=== PATIENT | female | born 1945 | race Caucasian/White ===

== ENCOUNTER → 2016-11-09 | Outpatient (CLI) | payer MEDICARE ==
[~2016-11-09] VITALS: Ht 157.5 cm; Wt 68.0 kg
[~2016-11-09] MED LIST: ACET325T38 PO; ACHD5005 PO; AMIT25TA9 PO; AMLO10TA PO; AMLO10TA4 PO; AMLO5TAB2 PO; AMT25T PO; ASP81TEC PO; ATEN50TA PO; ATOR10TA66 PO; ATOR40TA PO; AZIT-21 PO; BETH25TA PO; BSC10SU PR; CALC-719 PO; CALCIUM CARBONATE PO; CATHETER FLUSH 10 ML SYR IV PRN; CHOL20002 PO; CINN500C2 PO; CINNAMON BARK PO; CLOP75TA PO; CYAN500T2 PO; DCS100C PO; DIPH25TA82 PO; DOCU-161 PO; DOXY100C42 PO; DULO30CA PO; DULO60CA6 PO; ENOX30DI9 SQ; ENXP30I.3 SC; FAMO20TA5 PO; FAMO20TA73 PO; FLC100T1 PO; FOLI1TAB24 PO; FURO40TA PO; Fentanyl Citrate IV; HCT25T PO; HYDR1TAB86 PO; INSASP10V SC; INSASP10V SQ; INSU100I16 SQ; INSU100I5; INSU100V5 SQ; Insulin Human Lispro SC; LACT20SO2 PO; LEVE1U SQ; LISI20TA PO; MAG355OR17 PO; MECL-106 PO; MELA1TAB11 PO; METO10TA3 PO; METO5TAB2 PO; MG T1TAB2 PO; MORP10CA8 PO; MORP15TA PO; MTC5T PO; MTF500T PO; MULT1TAB69 PO; NFMET1000 PO; OMEG1CAP PO; OMEP-10 PO; ONDA-42 PO; ONDA-43 PO; ONDA2VIA IV; ONDN4T PO; OXYC-188 PO; OXYC5TAB71 PO; PNT40TEC PO; POLY17PO PO; POLY17PO23 PO; Polyethylene Glycol PO; REGADENOSON 0.4 MG/5 ML SYR (LEXISCAN) IV ONE; SENN1TAB6 PO; SENN1TAB76 PO; STOOL SOFTNER; SULF-222 PO; SULF1TAB38 PO; ZLP5T PO; [UNRECOGNIZED DRUG - CODE] IV; lovaza; lyrica
--- OUTSIDE RECORDS SUMMARY | 2016-11-09 07:23 | XMS REPORT | Continuity of Care Document ---
Author Author [facility] Organization [facility] Address Unknown Phone Unavailable Care Team Providers Care Smt Technician Name Role Phone Mauricio Messina PCP [phone] Source Comments Some departments are not documenting in the electronic medical record. If you do not see the information that you expected, contact Release of Information in the Health Information Management department at [phone] for further assistance in locating additional records.[facility] Active Allergies and Adverse Reactions Allergen Noted [...] Active (PROTONIX) 40 mg tablet daily. 15 hfpueaxa-cdr-nksa-FA-lute Take 2 Tabs by mouth Active in [...] other concerns. Contact office with questions at [phone] NWB. Tubigrip. Night splint at rest. OK for ROM to right knee. Full body PT as tolerated. Continue dressing changes to right heel wound as previously ordered Fu in 4 wks for xrays with Heddings Fall 04/24/2016 Syncope, near 04/24/2016 Closed fracture of ischium ([facility]) 04/24/2016 NATALIE (acute kidney injury) ([facility]) 04/24/2016 Urinary tract infection with hematuria 04/24/2016 Hyperkalemia 04/24/2016 Altered mental status, unspecified 04/24/2016 Failed shoulder arthroplasty s/p surgery elsewhere 07/22/2015 Hyperglycemia 11/27/2014 Right foot pain 09/14/2014 DM (diabetes mellitus) ([facility]) 09/14/2014 HTN (hypertension) 09/14/2014 HLD (hyperlipidemia) 09/14/2014 Wound, surgical, infected 06/29/2014 Postoperative anemia due to acute blood loss 06/02/2014 NATALIE (acute kidney injury) ([facility]) 06/02/2014 Urinary retention with incomplete bladder emptying 06/02/2014 Constipation 06/02/2014 Ankle fracture, right 05/28/2014 Infected hardware in right leg ([facility]) 05/28/2014 Open wound of ankle with complication 05/28/2014 Wound infection after surgery 05/28/2014 Peripheral vascular disease ([facility]) Immunizations Name Dates Previously Given Next Due [...] 06/25/2016 07/17/2014 Results from Last 3 Months Not on file
[2016-11-09 09:05] VITALS: BP 96/78
[2016-11-09 09:06] VITALS: BP 129/68
--- NOTE | 2016-11-10 08:52 | STRESS TEST ---
PROCEDURE PHYSICIAN: URMILA SUTHERLAND DATE OF PROCEDURE: 11/09/2016 LEXISCAN MYOVIEW STRESS TEST REPORT: REFERRING PHYSICIAN: Dr. Messina BASELINE HEART RATE: 54 BASELINE BLOOD PRESSURE: 114/66. BASELINE EKG: Sinus rhythm with no ischemic changes. IN SUMMARY: The patient was injected with 10.53 mCi of technetium 99 Myoview and the resting images were obtained. Then the patient received 0.4 mg of Lexiscan followed by 29.3 mCi of technetium 99 Myoview. Throughout the test, there were no EKG changes. The resting and stress images were reviewed and compared in the short axis, horizontal long axis, and vertical long axis views. Review of the images showed breast attenuation with mild apical thinning. No significant ischemia was noted. There was a transient ischemic dilatation. TID value of 1.33. SSS is 0. On the gated images the left ventricle appeared to be normal size with normal contractility. Calculated ejection fraction 62%. IN CONCLUSION: 1. The patient tolerated Lexiscan well. 2. Transient ischemic dilatation with TID value 1.33. 3. Mild apical thinning with no significant ischemia on SPECT images. 4. Normal left ventricular size with normal contractility. Calculated ejection fraction 62%. Job ID: [id number] Dictated Date: 11/10/2016 08:04:56 Gamer Date: 11/10/2016 08:49:59 / judson
== END ==
LOC: CARD 07:19
PROVIDERS: ATTEND Internal Medicine Cardiovascular Disease
DX: I11.0 Hypertensive heart disease with heart failure (principal); R07.9 Chest pain, unspecified; I51.7 Cardiomegaly; E78.5 Hyperlipidemia, unspecified
CPT/HCPCS: 78452; 93017

== ENCOUNTER 2016-11-10 13:01 | Outpatient (RCR) | payer MEDICARE, OTHER ==
--- OUTSIDE RECORDS SUMMARY | 2016-08-18 14:25 | XMS REPORT | Continuity of Care Document ---
Author Author [facility] Organization [facility] Address Unknown Phone Unavailable Care Team Providers Care Cellophane Wrapping Examiner Name Role Phone Mauricio Messina PCP [phone] Source Comments Some departments are not documenting in the electronic medical record. If you do not see the information that you expected, contact Release of Information in the Health Information Management department at [phone] for further assistance in locating additional records.[facility] Active Allergies and Adverse Reactions Allergen Noted Date Severity Reactions Comments Bactrim 07/07/2016 Low UNKNOWN Neurontin 05/28/2014 SEE COMMENTS disorientation and swollen tongue Plavix 04/24/2016 Low DIZZINESS Current Medications Prescription Sig. Disp. Refills Start End Date Status Date ondansetron (ZOFRAN ODT) Take 4 mg by mouth every Active 4 mg rapid dissolve 4 hours as needed. tablet calcium carbonate (TUMS) Take 500 mg by mouth Active 500 mg (200 mg elemental daily. calcium) chewable tablet cyanocobalamin(+) Take 2 Tabs by mouth 06/06/20 Active (VITAMIN B-12) 500 mcg daily. 14 tablet amLODIPine (NORVASC) 10 Take 10 mg by mouth at Active mg tablet bedtime daily. furosemide (LASIX) 40 mg Take 40 mg by mouth daily Active tablet as needed. For weight gain >3lbs in 24 hours. alum/mag hydroxide/simeth Take 30 mL by mouth every Active (MYLANTA, MAALOX PLUS) 4 hours as needed. 200/200/20 mg/5 mL susp oral suspension pantoprazole DR Take 1 Tab by mouth 90 Tab 3 12/04/19 Active (PROTONIX) 40 mg tablet daily. 15 ireaxkvt-ini-teho-FA-lute Take 2 Tabs by mouth Active in (CENTRUM SILVER WOMEN) daily. 8 mg iron-400 mcg-300 mcg tab acetaminophen (TYLENOL) Take 2 Tabs by mouth 30 Tab 1 05/08/20 Active 325 mg tablet every 6 hours as needed 16 for Pain. insulin aspart (NOVOLOG) Inject 0-7 Units into 15 mL 0 05/08/20 Active 100 unit/mL flexPEN area(s) as directed 16 before meals and at bedtime. atenolol (TENORMIN) 50 mg Take 50 mg by mouth Active tablet daily. docusate (COLACE) 100 mg Take 100 mg by mouth Active capsule twice daily. oxyCODONE/acetaminophen Take 1 Tab by mouth every Active (PERCOCET; ENDOCET; 4 hours as needed for ROXICET) 5/325 mg tablet Pain zolpidem (AMBIEN) 10 mg Take 5 mg by mouth at Active tablet bedtime as needed for Sleep. insulin detemir(+) Inject 10 Units into Active (LEVEMIR) 100 unit/mL area(s) as directed. at soln bedtime AMITRIPTYLINE HCL Take by mouth. Active (AMITRIPTYLINE PO) Active Problems Problem Noted Date Closed fracture of shaft of right tibia with routine healing 05/26/2016 Acute pain due to trauma 04/30/2016 Hypokalemia 04/30/2016 Hypomagnesemia 04/30/2016 Myoglobinuria 04/25/2016 Fracture tibia/fibula 04/24/2016 Overview: Right IMN 04/29/16 L ast Assessment & Plan: Sutures removed. Steri-strips placed. Allow to fall off naturally. OK to shower. Do not submerge wound in water x 2 more weeks. Monitor wound for redness, drainage or other concerns. Contact office with questions at [phone] NWB. Tubigrip. Night splint at rest. OK for ROM to right knee. Full body PT as tolerated. Continue dressing changes to right heel wound as previously ordered Fu in 4 wks for xrays with Heddings Fall 04/24/2016 Syncope, near 04/24/2016 Closed fracture of ischium ([facility]) 04/24/2016 NATALIE (acute kidney injury) ([facility]) 04/24/2016 Urinary tract infection with hematuria 04/24/2016 Hyperkalemia 04/24/2016 Altered mental status, unspecified 04/24/2016 Failed shoulder arthroplasty s/p surgery elsewhere 07/22/2015 Hyperglycemia 11/27/2014 Right foot pain 09/14/2014 DM (diabetes mellitus) ([facility]) 09/14/2014 HTN (hypertension) 09/14/2014 HLD (hyperlipidemia) 09/14/2014 Wound, surgical, infected 06/29/2014 Postoperative anemia due to acute blood loss 06/02/2014 NATALIE (acute kidney injury) ([facility]) 06/02/2014 Urinary retention with incomplete bladder emptying 06/02/2014 Constipation 06/02/2014 Ankle fracture, right 05/28/2014 Infected hardware in right leg ([facility]) 05/28/2014 Open wound of ankle with complication 05/28/2014 Wound infection after surgery 05/28/2014 Peripheral vascular disease ([facility]) Most Recent Encounters Date Type Specialty Providers Description 07/07/2016 Office Visit Orthopedic Surgery Daniele Sarmiento MD Fracture tibia/fibula, right, closed, with routine healing, subsequent encounter (Primary Dx) 07/07/2016 [facility] Radiology Daniele Sarmiento MD Encounter 07/06/2016 Orders Only Orthopedic Surgery Daniele Sarmiento MD Closed fracture of shaft of right tibia with routine healing, unspecified fracture morphology, subsequent encounter (Primary Dx) 06/25/2016 Scan Only General Surgery Lesa Sparrow MD 05/26/2016 [facility] Daniele Sarmiento MD Abnormal microbiological Encounter findings in specimens from other organs, systems and tissues 05/26/2016 Office Visit Orthopedic Surgery Daniele Sarmiento MD Closed displaced spiral fracture of shaft of right tibia with routine healing, subsequent encounter (Primary Dx); Positive culture finding 05/26/2016 [facility] Radiology Daniele Sarmiento MD Encounter 05/25/2016 Orders Only Orthopedic Surgery Daniele Sarmiento MD Closed fracture of shaft of right tibia with routine healing, unspecified fracture morphology, subsequent encounter (Primary Dx) Immunizations Name Dates Previously Given Next Due Flu Vaccine 07/17/2014 Quadrivalent=>3 Yo (Preservative Free) Social History Tobacco Use Types Packs/Day Years Used Date Former Smoker Smokeless Tobacco: Never Used Tobacco Cessation: Counseling Given: Yes Comments: Alcohol Use Drinks/Week oz/Week Comments No 0 Standard 0.0 drinks or equivalent Last Filed Vital Signs Vital Sign Reading Time Taken Blood Pressure 157/76 07/07/2016 12:46 PM CDT Pulse 77 07/07/2016 12:46 PM CDT Temperature 36.8 C (98.2 F) 07/07/2016 12:46 PM CDT Respiratory Rate 16 01/03/2015 2:35 PM CDT Height 1.575 m (5' 2") 07/07/2016 12:46 PM CDT Weight 74.844 kg (165 lb) 07/07/2016 12:46 PM CDT Body Mass Index 30.17 07/07/2016 12:46 PM CDT Oxygen Saturation 94% 05/08/2016 2:20 PM CDT Plan of Care Health Maintenance Due Date Last Done Comments Hepatitis C Screening 1945 Physical (Comprehensive) 1953 Exam Pertussis Vaccine 1957 Tetanus Vaccine 1963 Breast Cancer Screening 1986 Colorectal Cancer 02/09/1996 Screening Shingles Vaccine 2006 Osteoporosis Screening 2011 Prevnar/Pneumovax (#1) 2011 Influenza Vaccine 06/25/2016 07/17/2014 Results from Last 3 Months TIBIA & FIBULA 2 VIEWS RIGHT (07/07/2016 1:19 PM)Only the most recent of 2 results within the time period is included. Impressions 1.Mild partial progressive incomplete healing of nondisplaced transverse fracture of the proximal tibia. 2.Partial progressive healing of midshaft oblique tibial fracture. 3.Progressive good healing of the junction proximal one third fibula fracture. 4.Ankle fusion changes. Finalized by Duarte Villalta M.D. on 07/07/2016 1:50 PM. Dictated by Duarte Villalta M.D. on 07/07/2016 1:45 PM. Narrative Right tibia-fibula 2 views. History: Closed fracture of right tibia. Compared May 26, 2016 and correlating with August 16, 2014. Interval partial incomplete healing of a transverse high tibial proximal metadiaphyseal fracture. Alignment is maintained with intact antegrade IM nail fixation and interlocking screw fixation. Interval partial progressive healing of midshaft of the tibial oblique fracture with alignment similar to prior study. The majority the calcaneus has been resected. Talar head and neck have been resected. Healed junction proximal one third fibula fracture. Resected distal third of the fibula. Apparent osseous fusion of the ankle joint. Procedure Note Interface, Radiant Results - Tue Jul 07, 2016 1:53 PM CDT Right tibia-fibula 2 views. History: Closed fracture of right tibia. Compared May 26, 2016 and correlating with August 16, 2014. Interval partial incomplete healing of a transverse high tibial proximal metadiaphyseal fracture. Alignment is maintained with intact antegrade IM nail fixation and interlocking screw fixation. Interval partial progressive healing of midshaft of the tibial oblique fracture with alignment similar to prior study. The majority the calcaneus has been resected. Talar head and neck have been resected. Healed junction proximal one third fibula fracture. Resected distal third of the fibula. Apparent osseous fusion of the ankle joint. IMPRESSION 1. Mild partial progressive incomplete healing of nondisplaced transverse fracture of the proximal tibia. 2. Partial progressive healing of midshaft oblique tibial fracture. 3. Progressive good healing of the junction proximal one third fibula fracture. 4. Ankle fusion changes. Finalized by Duarte Villalta M.D. on 07/07/2016 1:50 PM. Dictated by Duarte Villalta M.D. on 07/07/2016 1:45 PM. C REACTIVE PROTEIN (CRP) (05/26/2016 4:35 PM) Component Value Range C-Reactive Protein 0.49 <1.0 MG/DL Specimen Blood SED RATE (05/26/2016 4:35 PM) Component Value Range Sed Rate -ESR 60 (H) 0-30 MM/HR Specimen Blood CBC AND DIFF (05/26/2016 4:35 PM) Component Value Range White Blood Cells 9.5 4.5-11.0 K/UL RBC 3.29 (L) 4.0-5.0 M/UL Hemoglobin 9.0 (L) 12.0-15.0 GM/DL Hematocrit 27.5 (L) 36-45 % MCV 83.6 80-100 FL MCH 27.4 26-34 PG MCHC 32.8 32.0-36.0 G/DL RDW 19.3 (H) 11-15 % Platelet Count 251 150-400 K/UL MPV 7.6 7-11 FL Neutrophils 68 41-77 % Lymphocytes 20 (L) 24-44 % Monocytes 8 4-12 % Eosinophils 4 0-5 % Basophils 0 0-2 % Absolute Neutrophil Count 6.50 1.8-7.0 K/UL Absolute Lymph Count 1.90 1.0-4.8 K/UL Absolute Monocyte Count 0.70 0-0.80 K/UL Absolute Eosinophil Count 0.40 0-0.45 K/UL Absolute Basophil Count 0.00 0-0.20 K/UL Specimen Blood
[~2016-11-10 13:01] MED LIST changes: -ATOR10TA66 PO; -CATHETER FLUSH 10 ML SYR IV PRN; -CINN500C2 PO; -DOXY100C42 PO; -MULT1TAB69 PO; -REGADENOSON 0.4 MG/5 ML SYR (LEXISCAN) IV ONE; -SENN1TAB6 PO; +cloNIDine 0.1 MG (CATAPRES) TAB PO ONE
[2016-11-11] MEDS ORDERED: AMIT25TA9 PO ×2 (11:53)
[2016-11-11] MEDS ORDERED: CINN500C2 PO ×2 (11:53)
[2016-11-11] MEDS ORDERED: DOXY100C42 PO ×2 (11:53)
[2016-11-11] MEDS ORDERED: ATEN50TA PO ×2 (11:53)
[2016-11-11] MEDS ORDERED: SENN1TAB6 PO ×2 (11:57)
[2016-11-11] MEDS ORDERED: MULT1TAB69 PO ×2 (11:58)
[2016-11-15] MEDS ORDERED: ATOR10TA66 PO ×2 (10:08)
== END 2016-11-16 | disposition home or self-care (01) ==
LOC: WOUNDCARE 13:01
PROVIDERS: ATTEND Nurse Practitioner
DX: E11.621 Type 2 diabetes mellitus with foot ulcer (principal); L97.412 Non-pressure chronic ulcer of right heel and midfoot with fat layer exposed
CPT/HCPCS: 11042; 15275; 87070; 87075; 87077; 87186; 87205

== ENCOUNTER 2016-11-11 09:48 | Day surgery (SDC) | payer MEDICARE ==
[~2016-11-11] VITALS: Ht 157.5 cm; Wt 83.0 kg
[~2016-11-11 09:48] MED LIST changes: -cloNIDine 0.1 MG (CATAPRES) TAB PO ONE
--- OUTSIDE RECORDS SUMMARY | 2016-11-11 10:28 | XMS REPORT | Continuity of Care Document ---
Author Author [facility] Organization [facility] Address Unknown Phone Unavailable Care Team Providers Care Oracle Application Architect Name Role Phone Mauricio Messina PCP [phone] Source Comments Some departments are not documenting in the electronic medical record. If you do not see the information that you expected, contact Release of Information in the Health Information Management department at [phone] for further assistance in locating additional records.[facility] Active Allergies and Adverse Reactions Allergen Noted [...] Active (PROTONIX) 40 mg tablet daily. 15 cnnnesqy-sqp-tlrt-FA-lute Take 2 Tabs by mouth Active in [...] other concerns. Contact office with questions at [phone] NWB. Tubigrip. Night splint at rest. OK for ROM to right knee. Full body PT as tolerated. Continue dressing changes to right heel wound as previously ordered Fu in 4 wks for xrays with Heddings Fall 04/24/2016 Syncope, near 04/24/2016 Closed fracture of ischium ([facility]) 04/24/2016 NATALIE (acute kidney injury) ([facility]) 04/24/2016 Urinary tract infection with hematuria 04/24/2016 Hyperkalemia 04/24/2016 Altered mental status, unspecified 04/24/2016 Failed shoulder arthroplasty s/p surgery elsewhere 07/22/2015 Hyperglycemia 11/27/2014 Right foot pain 09/14/2014 DM (diabetes mellitus) ([facility]) 09/14/2014 HTN (hypertension) 09/14/2014 HLD (hyperlipidemia) 09/14/2014 Wound, surgical, infected 06/29/2014 Postoperative anemia due to acute blood loss 06/02/2014 NATALIE (acute kidney injury) ([facility]) 06/02/2014 Urinary retention with incomplete bladder emptying 06/02/2014 Constipation 06/02/2014 Ankle fracture, right 05/28/2014 Infected hardware in right leg ([facility]) 05/28/2014 Open wound of ankle with complication 05/28/2014 Wound infection after surgery 05/28/2014 Peripheral vascular disease ([facility]) Immunizations Name Dates Previously Given Next Due [...]
--- OUTSIDE RECORDS SUMMARY | 2016-11-11 10:28 | XMS REPORT | Continuity of Care Document ---
Author Author [facility] Organization [facility] Address Unknown Phone Unavailable Care Team Providers Care Staff Pharmacist Hospital Name Role Phone Mauricio Messina PCP [phone] Source Comments Some departments are not documenting in the electronic medical record. If you do not see the information that you expected, contact Release of Information in the Health Information Management department at [phone] for further assistance in locating additional records.[facility] Active Allergies and Adverse Reactions [...] Active (PROTONIX) 40 mg tablet daily. 15 mmezsdkv-wez-dqki-FA-lute Take 2 Tabs by mouth Active in [...] other concerns. Contact office with questions at [phone] NWB. Tubigrip. Night splint at rest. OK for ROM to right knee. Full body PT as tolerated. Continue dressing changes to right heel wound as previously ordered Fu in 4 wks for xrays with Heddings Fall 04/24/2016 Syncope, near 04/24/2016 Closed fracture of ischium ([facility]) 04/24/2016 NATALIE (acute kidney injury) ([facility]) 04/24/2016 Urinary tract infection with hematuria 04/24/2016 Hyperkalemia 04/24/2016 Altered mental status, unspecified 04/24/2016 Failed shoulder arthroplasty s/p surgery elsewhere 07/22/2015 Hyperglycemia 11/27/2014 Right foot pain 09/14/2014 DM (diabetes mellitus) ([facility]) 09/14/2014 HTN (hypertension) 09/14/2014 HLD (hyperlipidemia) 09/14/2014 Wound, surgical, infected 06/29/2014 Postoperative anemia due to acute blood loss 06/02/2014 NATALIE (acute kidney injury) ([facility]) 06/02/2014 Urinary retention with incomplete bladder emptying 06/02/2014 Constipation 06/02/2014 Ankle fracture, right 05/28/2014 Infected hardware in right leg ([facility]) 05/28/2014 Open wound of ankle with complication 05/28/2014 Wound infection after surgery 05/28/2014 Peripheral vascular disease ([facility]) Immunizations Name Dates Previously Given Next Due [...]
[2016-11-11] MEDS ORDERED: LIDOCAINE 1% INJ 20 ML (XYLOCAINE) VIAL ONE (10:36)
[2016-11-11] MEDS ORDERED: HEParin (CATH LAB) 0 ML IV ONE (10:36)
[2016-11-11] MEDS ORDERED: NS IV 1000 ML 1,000 ML ONE (10:36)
[2016-11-11] MEDS ORDERED: NS IV 1000 ML 1,000 ML IV SCH ×2 (11:00→11:28)
[2016-11-11 11:31] VITALS: BP 184/71
[2016-11-11 11:36] LABS: MEAN PLATELET VOLUME 10.1 FL (7.4-10.4); RED BLOOD COUNT 3.58 10^6/uL (4.35-5.85); RED CELL DISTRIBUTION WIDTH 17.3 % (10.0-14.5); WHITE BLOOD COUNT 8.3 10^3/uL (4.3-11.0)
[2016-11-11 11:46] LABS: INR 1.1 (0.8-1.4); PROTHROMBIN TIME PATIENT 13.4 SEC (12.2-14.7)
--- NOTE | 2016-11-11 11:51 | Diagnostic Imaging Report ---
EXAMINATION: Portable upright radiograph of the chest. INDICATION: Coronary artery disease and peripheral angiography. FINDINGS: The lungs demonstrate minimal bibasilar atelectasis. The heart size is mildly enlarged. No effusion or pneumothorax. Mediastinum and russ appear unremarkable. Left shoulder replacement is seen. IMPRESSION: Cardiomegaly. Minimal bibasilar atelectasis. Dictated by: Dictated on workstation # [id number]
[2016-11-11] MEDS ORDERED: CINN500C2 PO ×2 (11:53)
[2016-11-11] MEDS ORDERED: ATEN50TA PO ×2 (11:53)
[2016-11-11] MEDS ORDERED: AMIT25TA9 PO ×2 (11:53)
[2016-11-11] MEDS ORDERED: DOXY100C42 PO ×2 (11:53)
[2016-11-11 11:57] LABS: ALBUMIN 2.7 G/DL (3.2-4.5); BILIRUBIN,TOTAL 0.3 MG/DL (0.1-1.0); CALCIUM 8.7 MG/DL (8.5-10.1); CREATININE SERUM 2.9 MG/DL (0.60-1.30); POTASSIUM 4.9 MMOL/L (3.6-5.0); TOTAL PROTEIN 5.7 G/DL (6.4-8.2)
[2016-11-11] MEDS ORDERED: SENN1TAB6 PO ×2 (11:57)
[2016-11-11] MEDS ORDERED: MULT1TAB69 PO ×2 (11:58)
[2016-11-11] MEDS ORDERED: PATIENT MAY USE OWN MEDS, ALL MC SCH (12:30)
[2016-11-11 13:00] VITALS: BP 174/74
[2016-11-11] MEDS: NS IV 1000 ML 1,000 ML IV SCH (13:00)
[2016-11-11] MEDS ORDERED: CATHETER FLUSH 10 ML SYR IV PRN (14:30)
[2016-11-11] MEDS ORDERED: ENOXAPARIN 40 MG/0.4 ML (LOVENOX) SYR SQ SCH (15:45)
--- NOTE | 2016-11-11 15:45 | Cardiology History & Physical ---
HPI-Cardiology Cardiology Consultation Date of Consultation 11/11/16 Date of Admission Indication: coronary artery disease, peripheral arterial disease HPI 71 years old lady with history of peripheral arterial disease (coronary healing wound, had an abnormal VELIA and she was scheduled for peripheral angiogram. Underwent a stress test which showed transient ischemic dilatation. Has been complaining of palpitation, denied any syncope or near syncopal episodes. Denied any claudication. Today she was noted to have elevated creatinine level , low GFR. I decided to postpone the procedure, patient was admitted and she will start on aggressive hydration with close monitoring to her renal function. She denied any active chest pain at this point. Denied any palpitation, noted to have hyperlipidemia, she will be initiated on statin PMH-Cardiology Immunizations Up To Date Tetanus Booster (DTap): Unknown Date of Pneumonia Vaccine: Jun 25, 2014 Date of Influenza Vaccine: Jul 25, 2016 Surgeries HX Surgeries: Yes Surgeries: Abdominal, Gall Bladder, Hysterectomy, Section, Orthopedic Respiratory Hx Respiratory Disorders: Yes Cardiovascular Hx Cardiovascular Disorders: Yes (NEAR SYNCOPAL EPISODES) Cardiac Disorders: Heart Murmur, Hypertension Neurological Hx Neurological Disorders: Yes (NEUROPATHY IN HANDS, FEET AND LEGS; STROKE WITH RIGHT ARM WEAKNESS) Neurological Disorders: Neuropathy, Stroke 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 System Hx 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 Disorders: Yes (2 MISCARRIAGES) Sexually Transmitted Disease: No Female 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 Disorders: Ovarian Cyst HAM[employer]ER Hx: Hysterectomy Genitourinary Hx Genitourinary Disorders: No Genitourinary Disorders: Kidney Infection, Renal Failure Gastrointestinal Hx Gastrointestinal Disorders: Yes Gastrointestinal Disorders: Gastroesophageal Reflux Musculoskeletal Hx Musculoskeletal Disorders: Yes Musculoskeletal Disorders: Osteoporosis, Arthritis, Chronic Back Pain, Fractures Endocrine Hx Endocrine Disorders: Yes Endocrine Disorders: Diabetes, Insulin dep HEENT HX ENT Disorders: Yes (REMOVED CATARACTS; IMPLANTS) HEENT Disorders: Cataract, Double Vision Hearing Impairment: Denies Cancer Hx Cancer: Yes Cancer: Melanoma Psychosocial Hx Psychiatric Problems: Yes Behavioral Health Disorders: Anxiety, Depression Integumentary HX Skin/Integumentary Disorder: Yes (CHRONIC WOUND RIGHT FOOT/ANKLE) Blood Transfusions Hx Blood Disorders: No Adverse Reaction to a Blood Tr: No Other PMHx Other PMHx: past medical history as discussed below Social History Patient Social History Marrital Status: Dip or chew tobacco?: No Recent Foreign Travel: No Contact w/other who traveled: No Recent Infectious Disease Expo: No Family Hx Family History: Cancer G8 SISTER (breast cancer) Cataract 19 MOTHER Dementia 19 MOTHER Family history: Breast disease G8 SISTER (breast cancer) Family history: Diabetes mellitus 19 FATHER G8 SISTER Heart disease 19 MOTHER Parkinson's disease 19 MOTHER ROS-Cardiology Review of Systems General: No Chills, No Night Sweats, No Fatigue, No Malaise, No Appetite HEENT: No Head Aches, No Visual Changes, No Eye Pain, No Ear Pain, No Dysphasia , No Sinus Congestion, No Post Nasal Drip, No Sore Throat Pulmonary: DyspneaNo Cough, No Pleuritic Chest Pain Cardiovascular: : Chest Pain: Edema: Other (poor healing wound): PalpitationsNo : Lt Headedness, Orthopnea, Paroxysmal Noc. Dyspnea Gastrointestinal: No: Abdominal Pain, Constipation, Diarrhea, Hematochezia, Melena, Nausea, Vomiting Genitourinary: No Dysuria, No Frequency, No Incontinence, No Hematuria, No Retention Musculoskeletal: No: arm pain, back pain, foot pain, hand pain, leg pain, neck pain, shoulder pain Neurological: No: Change in speech, Confusion, Incoordination, Numbness, Seizures, Weakness Home Medications & Allergies Allergies: Coded Allergies: clopidogrel (Unverified Allergy, Unknown, BLEEDING, 04/24/16) gabapentin (Unverified Allergy, Unknown, 04/24/16) Home Medication List Reviewed: Yes Exam-Cardiology Vital Signs Vital Signs Date Time Temp Pulse Resp B/P Pulse Ox O2 Delivery O2 Flow Rate FiO2 11/11/16 13:00 98.2 53 18 174/74 97 Room Air Exam General Appearance: Alert, Oriented X3, Cooperative, No Acute Distress HEENT: Atraumatic, PERRLA Respiratory: Clear to Auscultation, Normal Air Movement Cardiovascular: Regular Rate, Normal S1, Normal S2, No Murmurs Abdominal: Normal Bowel Sounds, Soft, No Tenderness, No Hepatosplenomegaly, No Masses Extremities: No Clubbing, No Cyanosis, No Edema, Normal Pulses, No Tenderness/ Swelling Skin: No Rashes, No Breakdown, No Significant Lesion Neuro: Normal Gait, Normal Speech, Strength at 5/5 X4 Ext, Normal Tone, Sensation Intact Psych/Mental Status: Mental Status NL, Mood NL Results Labs Labs Laboratory Tests 11/11/16 11:21: Activated Partial Thromboplast Time 37H, Alanine Aminotransferase (ALT/SGPT) 11 , Albumin 2.7L, Alkaline Phosphatase 80, Anion Gap 10, Aspartate Amino Transf ( AST/SGOT) 13, BUN/Creatinine Ratio 19, Blood Urea Nitrogen 54H, Calcium Level 8.7, Carbon Dioxide Level 22, Chloride Level 108H, Cholesterol Level 206H, Creatinine 2.90H, Estimat Glomerular Filtration Rate 16, Glucose Level 97, HDL Cholesterol 45, Hematocrit 30L, Hemoglobin 9.7L, INR Comment 1.1, LDL Cholesterol Direct 134H, Mean Corpuscular Hemoglobin 27, Mean Corpuscular Hemoglobin Concent 32, Mean Corpuscular Volume 84, Mean Platelet Volume 10.1, Platelet Count 236, Potassium Level 4.9, Prothrombin Time 13.4, Red Blood Count 3.58L, Red Cell Distribution Width 17.3H, Sodium Level 140, Total Bilirubin 0.3 , Total Protein 5.7L, Triglycerides Level 115, VLDL Cholesterol 23, White Blood Count 8.3 A/P-Cardiology Admission Diagnosis Acute on chronic renal failure Coronary artery disease Peripheral arterial disease Hypertension Hyperlipidemia Assessment/Plan Acute on chronic renal failure, patient is followed by Dr. Brittney rome, today's creatinine level is 2.9, GFR is 16. She was scheduled for peripheral and coronary angiogram, I will admit her start aggressive hydration and monitor his renal function, I will try to do diagnostic procedure with limited contrast exposure then stage her for intervention if possible. Coronary artery disease, abnormal stress test, planning to proceed with cardiac catheterization possible PTCA Peripheral arterial disease, poor healing wound on the right leg, VELIA was done which showed monophasic waves bilaterally, planning to proceed with angiogram, has underlying renal insufficiency, elevated creatinine level, patient is admitted and will be hydrated then I will proceed with intervention after aggressive hydration Incidental finding enlarged lymph node on the right groin measuring 1.462.4 cm. Will need to have a CT of the abdomen and pelvis for evaluation without contrast. Recurrent palpitation, continue to monitor at this time. Bilateral carotid stenosis, mild disease, continue to monitor Multiple surgeries on the right foot after foot fracture then leg fracture, poor healing wound, planning to go for hyperbaric chamber. Diabetes mellitus, followed and managed by primary care physician Hypertension, controlled on current medication continue to monitor blood pressure Hyperlipidemia, I will start her on low-dose statin and monitor her tolerance and response URMILA SUTHERLAND MD Nov 11, 2016 15:45
[2016-11-11 16:00] VITALS: BP 160/70
[2016-11-11 16:23] VITALS: BP 160/70
[2016-11-11] MEDS: ENOXAPARIN 30 MG/0.3 ML (LOVENOX) SYR SC SCH (16:29)
[2016-11-11 20:25] VITALS: BP 183/80
[2016-11-11] MEDS ORDERED: ATORVASTATIN 10 MG (LIPITOR) TABLET PO SCH (21:00)
[2016-11-11] MEDS ORDERED: NON-FORMULARY MEDICATION 1 EA EA (Doxycycline Monohydrate 100 MG) PO SCH (21:00)
[2016-11-11] MEDS: inSUlin DETERMIR 1 UNIT/0.01 ML (LEVEMIR) CHARGE PER UNIT SQ SCH (21:34)
[2016-11-11] MEDS: SENNA W/DOCUSATE (SENOKOT S) TABLET PO SCH (21:35)
[2016-11-11] MEDS: ATORVASTATIN 10 MG (LIPITOR) TABLET PO SCH (21:35)
[2016-11-11] MEDS: AMITRIPTYLINE 25 MG (ELAVIL) TAB PO SCH (21:36)
[2016-11-11] MEDS: DOXYCYCLINE 100 MG (VIBRAMYCIN) TABLET PO SCH (21:38)
[2016-11-11] MEDS: amLODIPine 10 MG (NORVASC) TAB PO SCH (21:39)
[2016-11-12] VITALS (8 sets, daily range): BP systolic 138–192; BP diastolic 65–92
[2016-11-12] MEDS: NS IV 1000 ML 1,000 ML IV SCH ×3 (01:34→19:40)
[2016-11-12] MEDS: PANTOPRAZOLE 40 MG (PROTONIX) TAB PO SCH ×2 (06:46→09:21)
[2016-11-12 07:30] LABS: CALCIUM 7.8 MG/DL (8.5-10.1); CREATININE SERUM 2.98 MG/DL (0.60-1.30); POTASSIUM 4.6 MMOL/L (3.6-5.0)
--- NOTE | 2016-11-12 08:16 | Cardiology Progress Note ---
Subjective Subjective/Events-last exam Patient asleep in bed. Easily awakens to answer questions. Denies any CP or dyspnea. Reports she wants to go home. Review of Systems General: No Night Sweats, No Fatigue, No Malaise HEENT: No Visual Changes, No Dysphasia, No Sore Throat Pulmonary: No Dyspnea, No Cough, No Pleuritic Chest Pain Cardiovascular: No: Chest Pain, Orthopnea, Palpitations Gastrointestinal: No: Abdominal Pain, Nausea, Vomiting Genitourinary: No Dysuria, No Frequency Musculoskeletal: No: back pain, neck pain Neurological: No: Change in speech, Confusion, Numbness, Weakness Objective-Cardiology Exam Last Set of Vital Signs Vital Signs 11/12/16 11/12/16 02:57 04:00 Temp 99.0 Pulse 50 Resp 18 B/P 138/65 Pulse Ox 94 O2 Delivery Room Air Capillary Refill : I&O Intake and Output 11/11/16 23:59 Intake Total 520 ml Output Total 510 ml Balance 10 ml Intake Oral 520 ml Output Urine Total 510 ml # Bowel Movements 1 General: Alert, Oriented X3, Cooperative, No Acute Distress HEENT: Atraumatic, PERRLA Lungs: Clear to Auscultation, Normal Air Movement Heart: Regular Rate, Normal S1, Normal S2, No Murmurs Abdomen: Normal Bowel Sounds, Soft, No Tenderness, No Hepatosplenomegaly, No Masses Extremities: No Clubbing, No Cyanosis, No Edema, Normal Pulses, No Tenderness/ Swelling Skin: No Rashes, No Breakdown, No Significant Lesion Neuro: Normal Gait, Normal Speech, Strength at 5/5 X4 Ext, Normal Tone, Sensation Intact Psych/Mental Status: Mental Status NL, Mood NL Results Lab Laboratory Tests 11/11/16 11:21 11/12/16 07:05 A/P-Cardiology Admission Diagnosis Acute on chronic renal failure Coronary artery disease Peripheral arterial disease Hypertension Hyperlipidemia Assessment/Plan Acute on chronic renal failure, patient is followed by Dr. Brittney rome, today's creatinine level is 2.97, GFR is 16. Continue with aggressive IV hydration. Will try to do diagnostic procedure with limited contrast exposure then stage her for intervention if possible. Coronary artery disease, abnormal stress test, planning to proceed with cardiac catheterization possible PTCA once kidney function is better. Peripheral arterial disease, poor healing wound on the right leg, VELIA was done which showed monophasic waves bilaterally, planning to proceed with angiogram, has underlying renal insufficiency, elevated creatinine level, patient is admitted and will be hydrated then I will proceed with intervention after aggressive hydration Incidental finding enlarged lymph node on the right groin measuring 1.462.4 cm. Will need to have a CT of the abdomen and pelvis for evaluation without contrast. Recurrent palpitation, continue to monitor at this time. Bilateral carotid stenosis, mild disease, continue to monitor Multiple surgeries on the right foot after foot fracture then leg fracture, poor healing wound, planning to go for hyperbaric chamber. Diabetes mellitus, followed and managed by primary care physician Hypertension, controlled on current medication continue to monitor blood pressure Hyperlipidemia,started on Lipitor 10mg. Continue to monitor. LOREE GARCIA Nov 12, 2016 08:15
[2016-11-12] MEDS: DOXYCYCLINE 100 MG (VIBRAMYCIN) TABLET PO SCH ×2 (09:12→21:59)
[2016-11-12] MEDS: SENNA W/DOCUSATE (SENOKOT S) TABLET PO SCH ×2 (09:12→22:00)
[2016-11-12] MEDS: DAKIN'S 1/4 STRENGTH (0.125%) 473 ML BTL TOP SCH (13:36)
--- NOTE | 2016-11-12 15:16 | Cardiology Progress Note ---
Subjective Subjective/Events-last exam Patient was seen and evaluated, has been feeling well. No new complaint. Objective-Cardiology Exam Last Set of Vital Signs Vital Signs 11/12/16 11:54 Temp 98.4 Pulse 57 Resp 16 B/P 179/92 Pulse Ox 96 O2 Delivery Room Air Capillary Refill : I&O Intake and Output 11/12/16 00:00 Intake Total 520 ml Output Total 510 ml Balance 10 ml Intake Oral 520 ml Output Urine Total 510 ml # Bowel Movements 1 General: Alert, Oriented X3, Cooperative, No Acute Distress HEENT: Atraumatic, PERRLA Lungs: Clear to Auscultation, Normal Air Movement Heart: Regular Rate, Normal S1, Normal S2, No Murmurs Abdomen: Normal Bowel Sounds, Soft, No Tenderness, No Hepatosplenomegaly, No Masses Extremities: No Clubbing, No Cyanosis, No Edema, Normal Pulses, No Tenderness/ Swelling Skin: No Rashes, No Breakdown, No Significant Lesion Neuro: Normal Gait, Normal Speech, Strength at 5/5 X4 Ext, Normal Tone, Sensation Intact Psych/Mental Status: Mental Status NL, Mood NL Results Lab Laboratory Tests 11/12/16 07:05 A/P-Cardiology Admission Diagnosis Acute on chronic renal failure Coronary artery disease Peripheral arterial disease Hypertension Hyperlipidemia Assessment/Plan Acute on chronic renal failure, patient is followed by Dr. Brittney rome, today's creatinine level is 2.97, GFR is 16. Continue with aggressive IV hydration. Will try to do diagnostic procedure with limited contrast exposure then stage her for intervention if possible. I discussed the management plan with Brittney rome , I'll continue hydration, reevaluate renal function tomorrow and then possibly proceeding with the procedure with limited amount of contrast Coronary artery disease, abnormal stress test, planning to proceed with cardiac catheterization possible PTCA once kidney function is better. Peripheral arterial disease, poor healing wound on the right leg, VELIA was done which showed monophasic waves bilaterally, planning to proceed with angiogram, has underlying renal insufficiency, elevated creatinine level, patient is admitted and will be hydrated then I will proceed with intervention after aggressive hydration Incidental finding enlarged lymph node on the right groin measuring 1.462.4 cm. Will need to have a CT of the abdomen and pelvis for evaluation without contrast. Recurrent palpitation, continue to monitor at this time. Bilateral carotid stenosis, mild disease, continue to monitor Multiple surgeries on the right foot after foot fracture then leg fracture, poor healing wound, planning to go for hyperbaric chamber. Diabetes mellitus, followed and managed by primary care physician Hypertension, controlled on current medication continue to monitor blood pressure Hyperlipidemia,started on Lipitor 10mg. Continue to monitor. URMILA SUTHERLAND MD Nov 12, 2016 3:16 pm
[2016-11-12] MEDS: ENOXAPARIN 30 MG/0.3 ML (LOVENOX) SYR SC SCH (17:43)
[2016-11-12] MEDS: AMITRIPTYLINE 25 MG (ELAVIL) TAB PO SCH (21:57)
[2016-11-12] MEDS: ATORVASTATIN 10 MG (LIPITOR) TABLET PO SCH (21:57)
[2016-11-12] MEDS: amLODIPine 10 MG (NORVASC) TAB PO SCH (21:58)
[2016-11-12] MEDS: inSUlin DETERMIR 1 UNIT/0.01 ML (LEVEMIR) CHARGE PER UNIT SQ SCH (22:02)
[2016-11-13] VITALS (9 sets, daily range): BP systolic 150–179; BP diastolic 67–85
[2016-11-13] MEDS: NS IV 1000 ML 1,000 ML IV SCH ×7 (01:02→22:31)
[2016-11-13 05:00] LABS: CALCIUM 7.5 MG/DL (8.5-10.1); CREATININE SERUM 2.58 MG/DL (0.60-1.30); POTASSIUM 4.7 MMOL/L (3.6-5.0)
[2016-11-13] MEDS: PANTOPRAZOLE 40 MG (PROTONIX) TAB PO SCH (07:00)
[2016-11-13] MEDS: SENNA W/DOCUSATE (SENOKOT S) TABLET PO SCH ×2 (08:37→21:10)
[2016-11-13] MEDS: DOXYCYCLINE 100 MG (VIBRAMYCIN) TABLET PO SCH ×2 (08:46→21:11)
[2016-11-13] MEDS: DAKIN'S 1/4 STRENGTH (0.125%) 473 ML BTL TOP SCH (08:50)
--- NOTE | 2016-11-13 10:41 | Cardiology Progress Note ---
Subjective Subjective/Events-last exam patient is feeling better. Still receiving IV fluid, I discussed the management plan with the patient and with Brittney rome. Planning to proceed with angiogram would limit the amount of contrast today Review of Systems General: No Chills, No Night Sweats, No Fatigue, No Malaise, No Appetite, No Other HEENT: No Head Aches, No Visual Changes, No Eye Pain, No Ear Pain, No Dysphasia , No Sinus Congestion, No Post Nasal Drip, No Sore Throat, No Other Pulmonary: No Dyspnea, No Cough, No Pleuritic Chest Pain, No Other Cardiovascular: No: Chest Pain, Edema, Lt Headedness, Orthopnea, Other, Palpitations, Paroxysmal Noc. Dyspnea Objective-Cardiology Exam Last Set of Vital Signs Vital Signs 11/13/16 08:00 Temp 98.2 Pulse 63 Resp 17 B/P 163/67 Pulse Ox 92 O2 Delivery Room Air Capillary Refill : I&O Intake and Output 11/13/16 00:00 Intake Total 4300 ml Output Total 1300 ml Balance 3000 ml Intake Oral 1300 ml IV Total 3000 ml Output Urine Total 1300 ml General: Alert, Oriented X3, Cooperative, No Acute Distress HEENT: Atraumatic, PERRLA Lungs: Clear to Auscultation, Normal Air Movement Heart: Regular Rate, Normal S1, Normal S2, No Murmurs Abdomen: Normal Bowel Sounds, Soft, No Tenderness, No Hepatosplenomegaly, No Masses Extremities: No Clubbing, No Cyanosis, No Edema, Normal Pulses, No Tenderness/ Swelling Skin: No Rashes, No Breakdown, No Significant Lesion Neuro: Normal Gait, Normal Speech, Strength at 5/5 X4 Ext, Normal Tone, Sensation Intact Psych/Mental Status: Mental Status NL, Mood NL Results Lab Laboratory Tests 11/13/16 04:20 A/P-Cardiology Admission Diagnosis Acute on chronic renal failure Coronary artery disease Peripheral arterial disease Hypertension Hyperlipidemia Assessment/Plan Acute on chronic renal failure, patient is followed by Dr. Brittney rome, renal functions are slightly better. I discussed the management plan with Brittney rome, I will continue with aggressive hydration and proceed with diagnostic procedure with limited amount of contrast not to exceed 30 mL of contrast today. Discussed the management plan with the patient. It will be staged into multiple procedure if needed. Coronary artery disease, abnormal stress test, planning to proceed with cardiac catheterization possible PTCA once kidney function is better. Peripheral arterial disease, poor healing wound on the right leg, VELIA was done which showed monophasic waves bilaterally, I am planning to proceed with angiogram with limited amount of contrast. Incidental finding enlarged lymph node on the right groin measuring 1.462.4 cm. Will need to have a CT of the abdomen and pelvis for evaluation without contrast. Recurrent palpitation, continue to monitor at this time. Bilateral carotid stenosis, mild disease, continue to monitor Multiple surgeries on the right foot after foot fracture then leg fracture, poor healing wound, planning to go for hyperbaric chamber. Diabetes mellitus, followed and managed by primary care physician Hypertension, controlled on current medication continue to monitor blood pressure Hyperlipidemia,started on Lipitor 10mg. Continue to monitor. URMILA SUTHERLAND MD Nov 13, 2016 10:41
--- NOTE | 2016-11-13 10:41 | Cardiac Procedure Note-CS/ASA ---
Pre-Procedure Note Pre-Op Procedure Note H&P Reviewed The H&P was reviewed, patient examined and no changes noted. Date H&P Reviewed: Nov 13, 2016 Time H&P Reviewed: 10:41 Conscious Sedation Pre-Proced Time Reviewed: 10:41 ASA Class: 3 Airway Mallampati Classification: ([place] appropriate class) I. II. III, IV Lungs Heart ASA score ASA 1: a normal healthy patient ASA 2: a patient with a mild systemic disease (mid diabetes, controlled hypertension, obesity x ASA 3: a patient with a severe systemic disease that limits activity (angina , COPD, prior Myocardial infarction) ASA 4: a patient with an incapacitating disease that is a constant threat to life (CHF, renal failure) ASA 5: a moribund patient not expected to survive 24 hrs. (ruptured aneurysm) ASA 6: a declared brain patient whose organs are being harvested. For emergent operations, add the letter E after the classification Grade 3 Sedation Plan: Analgesia, Amnesia, Plan communicated to team members, Discussed options with patient/fam, Discussed risks with patient/fam Note The patient is an appropriate candidate to undergo the planned procedure, sedation, and anesthesia. The patient immediately re-assessed prior to indication. URMILA SUTHERLAND MD Nov 13, 2016 10:41
[2016-11-13 11:16] LABS: MEAN PLATELET VOLUME 10.7 FL (7.4-10.4); RED BLOOD COUNT 3.06 10^6/uL (4.35-5.85); RED CELL DISTRIBUTION WIDTH 17.6 % (10.0-14.5)
[2016-11-13 11:53] LABS: INR 1.1 (0.8-1.4); PROTHROMBIN TIME PATIENT 13.9 SEC (12.2-14.7)
[2016-11-13 12:37] LABS: BASOPHILS % (AUTO) 0 % (0-10); EOSINOPHILS # (AUTO) 0.2 10^3/uL (0.0-0.3); EOSINOPHILS % (AUTO) 3 % (0-10); LYMPHOCYTES # (AUTO) 1.9 X 10^3 (1.0-4.0); LYMPHOCYTES % (AUTO) 23 % (12-44); MEAN CORPUSCULAR HEMOGLOBIN 27 PG (25-34); MEAN CORPUSCULAR HGB CONC 32 G/DL (32-36); MEAN CORPUSCULAR VOLUME 86 FL (80-99); MEAN PLATELET VOLUME 9.8 FL (7.4-10.4); MONOCYTES # (AUTO) 0.7 X 10^3 (0.0-1.0); MONOCYTES % (AUTO) 9 % (0-12); NEUTROPHILS # (AUTO) 5.1 X 10^3 (1.8-7.8); NEUTROPHILS % (AUTO) 65 % (42-75); PLATELET COUNT 185 10^3/uL (130-400); RED BLOOD COUNT 3.41 10^6/uL (4.35-5.85); RED CELL DISTRIBUTION WIDTH 17.4 % (10.0-14.5); RETICULOCYTE % 1.32 % (0.50-2.40); WHITE BLOOD COUNT 7.9 10^3/uL (4.3-11.0)
[2016-11-13 13:13] LABS: BAND NEUTROPHILS 0 %; BASOPHILS % (MANUAL) 1 %; EOSINOPHILS % (MANUAL) 1 %; LYMPHOCYTES % (MANUAL) 27 %; NEUTROPHILS % (MANUAL) 60 %
[2016-11-13 13:14] LABS: ANISOCYTOSIS SLIGHT; REACTIVE LYMPHOCYTES 1 %
[2016-11-13] MEDS: ENOXAPARIN 30 MG/0.3 ML (LOVENOX) SYR SC SCH (15:28)
[2016-11-13] MEDS: inSUlin DETERMIR 1 UNIT/0.01 ML (LEVEMIR) CHARGE PER UNIT SQ SCH (21:11)
[2016-11-13] MEDS: ATORVASTATIN 10 MG (LIPITOR) TABLET PO SCH (21:11)
[2016-11-13] MEDS: amLODIPine 10 MG (NORVASC) TAB PO SCH (21:12)
[2016-11-13] MEDS: AMITRIPTYLINE 25 MG (ELAVIL) TAB PO SCH (21:13)
[2016-11-14] VITALS (13 sets, daily range): BP systolic 149–180; BP diastolic 50–93
[2016-11-14] MEDS: NS IV 1000 ML 1,000 ML IV SCH ×4 (04:22→15:58)
[2016-11-14 04:55] LABS: MEAN PLATELET VOLUME 10.4 FL (7.4-10.4); RED BLOOD COUNT 3.46 10^6/uL (4.35-5.85); RED CELL DISTRIBUTION WIDTH 16.8 % (10.0-14.5); WHITE BLOOD COUNT 8.2 10^3/uL (4.3-11.0)
[2016-11-14 04:57] LABS: CALCIUM 7.6 MG/DL (8.5-10.1); CREATININE SERUM 2.51 MG/DL (0.60-1.30); POTASSIUM 4.4 MMOL/L (3.6-5.0)
[2016-11-14] MEDS: PANTOPRAZOLE 40 MG (PROTONIX) TAB PO SCH (06:30)
[2016-11-14] MEDS ORDERED: NS IV 1000 ML 0 ML ONE (08:32)
[2016-11-14] MEDS ORDERED: HEParin (CATH LAB) 2,000 ML IV ONE (08:32)
[2016-11-14] MEDS ORDERED: LIDOCAINE 1% INJ 20 ML (XYLOCAINE) VIAL ONE (08:32)
[2016-11-14] MEDS: DAKIN'S 1/4 STRENGTH (0.125%) 473 ML BTL TOP SCH (08:59)
[2016-11-14] MEDS: DOXYCYCLINE 100 MG (VIBRAMYCIN) TABLET PO SCH ×2 (09:00→20:40)
[2016-11-14] MEDS: SENNA W/DOCUSATE (SENOKOT S) TABLET PO SCH ×2 (09:00→20:39)
--- NOTE | 2016-11-14 09:25 | Cardiology Progress Note ---
Subjective Subjective/Events-last exam patient is laying down in bed, no new complaint, complaining of swelling, several receiving fluid Review of Systems General: No Chills, No Night Sweats, No Fatigue, No Malaise, No Appetite, No Other HEENT: No Head Aches, No Visual Changes, No Eye Pain, No Ear Pain, No Dysphasia , No Sinus Congestion, No Post Nasal Drip, No Sore Throat, No Other Pulmonary: No Dyspnea, No Cough, No Pleuritic Chest Pain, No Other Cardiovascular: : EdemaNo: Chest Pain, Lt Headedness, Orthopnea, Other, Palpitations, Paroxysmal Noc. Dyspnea Objective-Cardiology Exam Last Set of Vital Signs Vital Signs 11/14/16 08:04 Temp 95.5 Pulse 52 Resp 12 B/P 175/73 Pulse Ox 95 O2 Delivery Room Air Capillary Refill : I&O Intake and Output 11/14/16 00:00 Intake Total 5110 ml Output Total 1150 ml Balance 3960 ml Intake Oral 1210 ml IV Total 3900 ml Output Urine Total 1150 ml # Voids 1 General: Alert, Oriented X3, Cooperative, No Acute Distress HEENT: Atraumatic, PERRLA Lungs: Clear to Auscultation, Normal Air Movement Heart: Normal S1, Normal S2, No Murmurs, Other (irregular rhythm) Abdomen: Normal Bowel Sounds, Soft, No Tenderness, No Hepatosplenomegaly, No Masses Extremities: No Clubbing, No Cyanosis, Normal Pulses, No Tenderness/Swelling, Other (peripheral edema) Skin: No Rashes, No Breakdown, No Significant Lesion Neuro: Normal Gait, Normal Speech, Strength at 5/5 X4 Ext, Normal Tone, Sensation Intact Psych/Mental Status: Mental Status NL, Mood NL Results Lab Laboratory Tests 11/13/16 12:20 11/14/16 04:00 A/P-Cardiology Admission Diagnosis Acute on chronic renal failure Coronary artery disease Peripheral arterial disease Hypertension Hyperlipidemia Assessment/Plan Acute on chronic renal failure, patient is followed by Dr. Brittney rome, renal functions are slightly better, planning to proceed with peripheral angiogram and coronary angiogram today. Coronary artery disease, abnormal stress test, planning to proceed with cardiac catheterization possible PTCA Peripheral arterial disease, poor healing wound on the right leg, VELIA was done which showed monophasic waves bilaterally, I am planning to proceed with angiogram with limited amount of contrast. Anemia, received one unit blood transfusion, probably anemia of chronic disease and renal insufficiency. Continue to monitor H&H. Incidental finding enlarged lymph node on the right groin measuring 1.462.4 cm. Will need to have a CT of the abdomen and pelvis for evaluation without contrast. Recurrent palpitation, continue to monitor at this time. Bilateral carotid stenosis, mild disease, continue to monitor Multiple surgeries on the right foot after foot fracture then leg fracture, poor healing wound, planning to go for hyperbaric chamber. Diabetes mellitus, followed and managed by primary care physician Hypertension, controlled on current medication continue to monitor blood pressure Hyperlipidemia,started on Lipitor 10mg. Continue to monitor. URMILA SUTHERLAND MD Nov 14, 2016 09:25
--- NOTE | 2016-11-14 09:27 | Cardiac Procedure Note-CS/ASA ---
Pre-Procedure Note Pre-Op Procedure Note H&P Reviewed The H&P was reviewed, patient examined and no changes noted. Date H&P Reviewed: Nov 14, 2016 Time H&P Reviewed: : Conscious Sedation Pre-Proced Time Reviewed: ASA Class: 3 Airway Mallampati Classification: ([place] appropriate class) I. II. III, IV Lungs Heart ASA score ASA 1: a normal healthy patient ASA 2: a patient with a mild systemic disease (mid diabetes, controlled hypertension, obesity x ASA 3: a patient with a severe systemic disease that limits activity (angina , COPD, prior Myocardial infarction) ASA 4: a patient with an incapacitating disease that is a constant threat to life (CHF, renal failure) ASA 5: a moribund patient not expected to survive 24 hrs. (ruptured aneurysm) ASA 6: a declared brain patient whose organs are being harvested. For emergent operations, add the letter E after the classification Grade 3 Sedation Plan: Analgesia, Amnesia, Plan communicated to team members, Discussed options with patient/fam, Discussed risks with patient/fam Note The patient is an appropriate candidate to undergo the planned procedure, sedation, and anesthesia. The patient immediately re-assessed prior to indication. URMILA SUTHERLAND MD Nov 14, 2016 09:27
[2016-11-14] MEDS ORDERED: fentaNYL INJECTION 100 MCG/2 ML AMP ONE (10:11)
[2016-11-14] MEDS ORDERED: MIDAZOLAM 5 MG/5 ML (VERSED) VIAL ONE (10:11)
[2016-11-14] MEDS ORDERED: PATIENT MAY USE OWN MEDS, ALL PO SCH (11:30)
[2016-11-14] MEDS ORDERED: FUROSEMIDE 40 MG/4 ML INJ (LASIX) IVP ONE (11:30)
[2016-11-14] MEDS: ATENOLOL 50 MG (TENORMIN) TAB PO SCH (13:31)
[2016-11-14] MEDS: ENOXAPARIN 30 MG/0.3 ML (LOVENOX) SYR SC SCH (16:00)
[2016-11-14] MEDS: AMITRIPTYLINE 25 MG (ELAVIL) TAB PO SCH (20:37)
[2016-11-14] MEDS: ATORVASTATIN 10 MG (LIPITOR) TABLET PO SCH (20:37)
[2016-11-14] MEDS: amLODIPine 10 MG (NORVASC) TAB PO SCH (20:38)
[2016-11-14] MEDS: inSUlin DETERMIR 1 UNIT/0.01 ML (LEVEMIR) CHARGE PER UNIT SQ SCH (21:36)
[2016-11-15] VITALS: BP 152/67
[2016-11-15] MEDS: NS IV 1000 ML 1,000 ML IV SCH (03:44)
[2016-11-15 04:45] VITALS: BP 162/64
[2016-11-15 04:47] LABS: MEAN PLATELET VOLUME 9.8 FL (7.4-10.4); RED BLOOD COUNT 3.77 10^6/uL (4.35-5.85); RED CELL DISTRIBUTION WIDTH 16.6 % (10.0-14.5); WHITE BLOOD COUNT 9.2 10^3/uL (4.3-11.0)
[2016-11-15 05:09] LABS: CALCIUM 7.5 MG/DL (8.5-10.1); CREATININE SERUM 2.41 MG/DL (0.60-1.30)
[2016-11-15 05:21] LABS: POTASSIUM 5.2 MMOL/L (3.6-5.0)
[2016-11-15] MEDS: PANTOPRAZOLE 40 MG (PROTONIX) TAB PO SCH (06:19)
[2016-11-15 08:00] VITALS: BP 175/72
[2016-11-15] MEDS: DOXYCYCLINE 100 MG (VIBRAMYCIN) TABLET PO SCH (09:07)
[2016-11-15] MEDS: ATENOLOL 50 MG (TENORMIN) TAB PO SCH (09:10)
[2016-11-15] MEDS: SENNA W/DOCUSATE (SENOKOT S) TABLET PO SCH (09:10)
[2016-11-15] MEDS: DAKIN'S 1/4 STRENGTH (0.125%) 473 ML BTL TOP SCH (09:11)
[2016-11-15] MEDS ORDERED: FUROSEMIDE 40 MG/4 ML INJ (LASIX) IVP ONE (09:45)
--- NOTE | 2016-11-15 10:07 | Cardiology Discharge Summary ---
Diagnosis/Chief Complaint Date of Admission Date of Discharge Admission Diagnosis Acute on chronic renal failure Coronary artery disease Peripheral arterial disease Hypertension Hyperlipidemia Discharge Diagnosis acute on chronic renal failure Peripheral arterial disease Claudication Coronary artery disease Hypertension Hyperlipidemia Chief Complaint/HPI Chief Complaint/HPI 71 years old lady with history of peripheral arterial disease (coronary healing wound, had an abnormal VELIA and she was scheduled for peripheral angiogram. Underwent a stress test which showed transient ischemic dilatation. Has been complaining of palpitation, denied any syncope or near syncopal episodes. Denied any claudication. Today she was noted to have elevated creatinine level , low GFR. I decided to postpone the procedure, patient was admitted and she will start on aggressive hydration with close monitoring to her renal function. She denied any active chest pain at this point. Denied any palpitation, noted to have hyperlipidemia, she will be initiated on statin Patient was admitted to the hospital, hydrated aggressively, slight improvement in creatinine function, I discussed the management with Brittney rome, then proceeded with angiogram using only 40 mL of contrast. Today she is feeling well, still having significant edema. Given additional dose of Lasix and planning to discharge home. Discharge Summary Hospital Course Hospital Course Acute on chronic renal failure, patient is followed by Dr. Brittney rome, renal functions are slightly better, I will discharge home today. Coronary artery disease, borderline lesion in the mid LAD. Mild to moderate disease otherwise. Continue to monitor Peripheral arterial disease, poor healing wound on the right leg, angiogram showed mild disease down to the trifurcation, was unable to evaluate the arteries below the trifurcation, consideration to reevaluate with left access and selective angiogram to her popliteal artery with limited amount of dye in the future. Anemia, received one unit blood transfusion, probably anemia of chronic disease and renal insufficiency, anemia analyzer is pending, follow-up as an outpatient Peripheral edema secondary to the aggressive hydration. Given additional dose of Lasix today. Hyperkalemia, given Lasix. Monitor electrolytes as an outpatient Incidental finding enlarged lymph node on the right groin measuring 1.462.4 cm. Will need to have a CT of the abdomen and pelvis for evaluation without contrast. Recurrent palpitation, continue to monitor at this time. Bilateral carotid stenosis, mild disease, continue to monitor Multiple surgeries on the right foot after foot fracture then leg fracture, poor healing wound, planning to go for hyperbaric chamber. Diabetes mellitus, followed and managed by primary care physician Hypertension, restart home medication. Hyperlipidemia, started on Lipitor 10mg. Continue to monitor. Labs Laboratory Tests 11/12/16 20:46: Glucometer 148H 11/13/16 04:20: Blood Urea Nitrogen 48H, Calcium Level 7.5L, Carbon Dioxide Level 19L, Chloride Level 112H, Creatinine 2.58H, Hematocrit 27L, Hemoglobin 8.4L, Mean Platelet Volume 10.7H, Red Blood Count 3.06L, Red Cell Distribution Width 17.6H 11/13/16 11:35: Activated Partial Thromboplast Time 37H 11/13/16 12:20: Hematocrit 29L, Hemoglobin 9.3L, Red Blood Count 3.41L, Red Cell Distribution Width 17.4H 11/13/16 20:36: Glucometer 121H 11/14/16 04:00: Blood Urea Nitrogen 44H, Calcium Level 7.6L, Carbon Dioxide Level 18L, Chloride Level 114H, Creatinine 2.51H, Glucose Level 132H, Hematocrit 29L, Hemoglobin 9.5L, Red Blood Count 3.46L, Red Cell Distribution Width 16.8H 11/14/16 20:33: Glucometer 133H 11/15/16 04:30: Blood Urea Nitrogen 44H, Calcium Level 7.5L, Carbon Dioxide Level 17L, Chloride Level 114H, Creatinine 2.41H, Hematocrit 32L, Hemoglobin 10.5L, Red Blood Count 3.77L, Red Cell Distribution Width 16.6H, Potassium Level 5.2H Procedures None. Discharge Physical Examination Allergies: Coded Allergies: clopidogrel (Unverified Allergy, Unknown, BLEEDING, 04/24/16) gabapentin (Unverified Allergy, Unknown, 04/24/16) Vitals & I&Os Vital Signs Date Time Temp Pulse Resp B/P Pulse Ox O2 Delivery O2 Flow Rate FiO2 11/15/16 08:00 96.7 56 18 175/72 94 Room Air General Appearance: Alert, Oriented X3, Cooperative, No Acute Distress HEENT: Atraumatic, PERRLA Respiratory: Clear to Auscultation, Normal Air Movement Cardiovascular: Regular Rate, Normal S1, Normal S2, No Murmurs Abdominal: Normal Bowel Sounds, Soft, No Tenderness, No Hepatosplenomegaly, No Masses Extremities: No Clubbing, No Cyanosis, Normal Pulses, No Tenderness/Swelling Skin: No Rashes, No Breakdown, No Significant Lesion, Other (+2 edema) Neuro: Normal Gait, Normal Speech, Strength at 5/5 X4 Ext, Normal Tone, Sensation Intact, Cranial Nerves 3-12 NL, Reflexes 2+ Psych/Mental Status: Mental Status NL, Mood NL Discharge Home Medications Reviewed and agree with Discharge Medication list on patient's Discharge Instruction sheet Instructions to Patient/Family Please see electonic discharge instructions given to patient. URMILA SUTHERLAND MD Nov 15, 2016 10:07
[2016-11-15] MEDS ORDERED: ATOR10TA66 PO ×2 (10:08)
--- NOTE | 2016-11-15 10:09 | Discharge Inst-Post CATH ---
Discharge Inst-CATH Post Cardiac Cath D/C Inst Follow Up/Plan Appointment with Brittney rome next week Appointment with Dr. Sutherland's office in 1- 2 weeks CARDIAC CATH DISCHARGE INSTRUCTIONS *Hold Metformin for 48 hours post heart cath. ACTIVITY * Go Home directly and rest. * Limit activity of the leg (or wrist if it was used) for 7 days including aerobics, swimming, jogging, bicycling, etc. * Restrict stair-climbing for 7 days if possible, if not, climb up with your non -cath leg, then bring together on the same step. * Avoid lifting, pushing, pulling or excessive movement of the affected extremity for 7 days. * Customary sexual activity may be resumed after 2 days-use caution not to use a position that strains or causes pain to the affected extremity. * No driving for 24 hours. * NO SMOKING. * Avoid straining for bowel movements for 7 days. * Gentle walking on level ground is allowed. * Returning to work will depend on the type of procedure and the results. Your doctor will discuss this with you. CALL YOUR DOCTOR FOR ANY OF THE FOLLOWING: *If bleeding from the puncture site occurs- Apply gentle pressure to site with clean cloth and call your doctor or EMS. * If a knot or lump forms under the skin, increases in size, or causes pain. * If bruising appears to be worsening or moving further down your leg instead of disappearing. * Temperature above 101 F. CARE OF YOUR GROIN INCISION; * Bruising or purple discoloration of the skin near the puncture site is common. * You may shower only, no bathtub bathing for 5 days. Be careful to avoid slipping as your leg may feel stiff. * If a closure device was used on your femoral artery, please see the attached guide regarding care of the device and your leg. * REMOVE the dressing from your groin the next day after your procedure in the shower. CARE OF YOUR WRIST INCISION; * Bruising or purple discoloration of the skin near the puncture site is common. * You may shower. * DO NOT submerge wrist. * Remove dressing in 24 hours. URMILA SUTHERLAND MD Nov 15, 2016 10:09
[2016-11-15 10:35] VITALS: BP 173/73
--- NOTE | 2016-11-15 23:00 | DISCHARGE SUMMARY ---
REFERRING PHYSICIAN: Dr. Mauricio Messina BRIEF HISTORY: Ms. Michel is a 71-year-old lady with history of peripheral arterial disease, nonhealing wound on her right leg and abnormal stress test with transient ischemic dilatation. The patient has underlying renal insufficiency, which has been chronic. She was scheduled for the procedure on 11/11/2016. On the day of admission, she was noted to have renal failure with creatinine 2.98. I admitted her and hydrated her aggressively. Monitoring her showed slight improvement but she was anemic with worsening hemoglobin. Subsequently, I transfused her 1 unit of blood, continued with aggressive hydration and proceeded with the procedure today with minimal amount of contrast. PROCEDURE NOTE: After explaining the procedure to the patient, all pros and cons were explained. All questions were answered. The patient signed a consent, then she was placed on the cardiac catheterization laboratory. The right groin was prepped in a sterile fashion. Local anesthesia applied to the right groin. 6-Sinhala sheath was placed in the right femoral artery. I performed right lower extremity runoff using 5 mL of contrast. Then I proceeded with a Zhang left catheter to the left coronary system. Multiple views were obtained. Then Zhang right catheter was advanced to the right coronary system and multiple views were obtained. Then using the Zhang right catheter, I crossed over and placed a catheter in the left common iliac. Runoff to the left lower extremity was done using 5 mL of contrast. Then I reintroduce a pigtail catheter to the left ventricular cavity, no left ventriculogram was done. Pressure was measured. Pullback LV to aorta was done. Then I reperformed runoff to the right lower extremity at the level of the popliteal artery and below and I used 4 mL of contrast mixed with 5 mL of saline with manual injection. Reevaluation of the leg was done. Total contrast used in the procedure was 42 mL. At the end of the procedure, sheath was removed. Mynx device deployed. Hemostasis achieved. FINDINGS: HEMODYNAMICS: LV pressure 158/17, end-diastolic pressure of 17, aortic pressure 153/53 mean of 87. No significant gradient across the aortic valve. ANATOMY: 1. Left main coronary artery is bifurcating into left anterior descending and left circumflex artery with 50% ostial left main coronary artery stenosis, nonobstructive disease. 2. Left anterior descending artery is moderate in size. Mild irregularity diffusely. At the midportion there is an area of 60 to 70% stenosis. 3. Left circumflex artery is moderate in size with mild disease, nonobstructive disease. 4. Right coronary artery: The right coronary artery is moderate in size. 50 to 60% stenosis was noted in the mid right coronary artery. Distally there is an area of 60% stenosis just above the bifurcation. 5. Right lower extremity runoff showed heavily calcified SFA with moderate disease. Below the trifurcation there is 1 vessel run down to the mid-calf. No further visualization of the artery was done. I was unable to perform any further due to her renal insufficiency. 6. Left lower extremity runoff showed calcified artery with mild to moderate disease down to the trifurcation. The arteries below the trifurcation were not well visualized. IN CONCLUSION: 1. Heavily calcified arteries with peripheral angiogram. Mild to moderate disease in the right SFA down to the trifurcation. One vessel was visualized down to the ankle. Otherwise due to the renal insufficiency and the limited use of contrast, I was unable to visualize the rest of the peripheral arteries. On the left leg there was mild to moderate disease down to the trifurcation. 2. 60 to 70% stenosis mid LAD. 50% ostial left main coronary artery stenosis. 50 to 60% stenosis in the midright coronary artery and distal right coronary artery. 3. Mildly elevated left ventricular end diastolic pressure. DISCUSSION AND RECOMMENDATION: I will maximize medical therapy at this time. Monitor the patient closely. We will consider staging her for reevaluation of the leg below the knee with left groin access after aggressive hydration. FINAL DIAGNOSES: 1. Peripheral arterial disease. 2. Coronary artery disease. 3. Hypertension. 4. Hyperlipidemia. 5. Chronic renal insufficiency. 6. Anemia. Job ID: [id number] Dictated Date: 11/14/2016 11:32:35 Llama Farmer Date: 11/15/2016 22:58:33/judson
[2016-11-16 08:25] LABS: IPF LEVEL 3.5 % (0.0-7.2)
[2016-11-16 08:26] LABS: %SAT TOTAL IRON BINDING CAPIC 34 % (15-50); FOLIC ACID >24.0 NG/ML (1.5-24.0); TIBC 143 L UG/DL (280-380); UIBC 95 UG/DL (55-450)
--- OUTSIDE RECORDS SUMMARY | 2016-11-26 15:30 | XMS REPORT | Continuity of Care Document ---
Author Author [facility] Organization [facility] Address Unknown Phone Unavailable Care Team Providers Care Game Author Name Role Phone Mauricio Messina PCP [phone] Source Comments Some departments are not documenting in the electronic medical record. If you do not see the information that you expected, contact Release of Information in the Health Information Management department at [phone] for further assistance in locating additional records.[facility] Active Allergies and Adverse Reactions Allergen Noted [...] Active (PROTONIX) 40 mg tablet daily. 15 waqtniet-osq-jugi-FA-lute Take 2 Tabs by mouth Active in [...] other concerns. Contact office with questions at [phone] NWB. Tubigrip. Night splint at rest. OK for ROM to right knee. Full body PT as tolerated. 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 Hyperglycemia 11/27/2014 Right foot pain 09/14/2014 DM (diabetes mellitus) ([facility]) 09/14/2014 HTN (hypertension) 09/14/2014 HLD (hyperlipidemia) 09/14/2014 Wound, surgical, infected 06/29/2014 Postoperative anemia due to acute blood loss 06/02/2014 NATALIE (acute kidney injury) ([facility]) 06/02/2014 Urinary retention with incomplete bladder emptying 06/02/2014 Constipation 06/02/2014 Ankle fracture, right 05/28/2014 Infected hardware in right leg ([facility]) 05/28/2014 Open wound of ankle with complication 05/28/2014 Wound infection after surgery 05/28/2014 Peripheral vascular disease ([facility]) Immunizations Name Dates Previously Given Next [...]
--- OUTSIDE RECORDS SUMMARY | 2016-11-26 15:31 | XMS REPORT | Continuity of Care Document ---
Author Author [facility] Organization [facility] Address Unknown Phone Unavailable Care Team Providers Care Dairy Feed Sales Consultant Name Role Phone Mauricio Messina PCP [phone] Source Comments Some departments are not documenting in the electronic medical record. If you do not see the information that you expected, contact Release of Information in the Health Information Management department at [phone] for further assistance in locating additional records.[facility] Active Allergies and Adverse [...] Active (PROTONIX) 40 mg tablet daily. 15 uvudjfnr-wes-lhsm-FA-lute Take 2 Tabs by mouth Active in [...] other concerns. Contact office with questions at [phone] NWB. Tubigrip. Night splint at rest. OK for ROM to right knee. Full body PT as tolerated. 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 Hyperglycemia 11/27/2014 Right foot pain 09/14/2014 DM (diabetes mellitus) ([facility]) 09/14/2014 HTN (hypertension) 09/14/2014 HLD (hyperlipidemia) 09/14/2014 Wound, surgical, infected 06/29/2014 Postoperative anemia due to acute blood loss 06/02/2014 NATALIE (acute kidney injury) ([facility]) 06/02/2014 Urinary retention with incomplete bladder emptying 06/02/2014 Constipation 06/02/2014 Ankle fracture, right 05/28/2014 Infected hardware in right leg ([facility]) 05/28/2014 Open wound of ankle with complication 05/28/2014 Wound infection after surgery 05/28/2014 Peripheral vascular disease ([facility]) Immunizations Name Dates Previously Given [...]
== END 2016-11-15 12:39 | disposition home or self-care (01) ==
LOC: 4TH 09:48 → CATH 09:48 → ICU 13:00 → 4TH 17:05 → ICU 17:05 → UNDOFXSDCACCOM 17:05 → 4TH 11-15 09:48 → CATH 11-15 09:48 → 4TH 11-15 09:48 → UNDOADMIN 11-15 09:48 → CATH 11-15 12:39 → UNDODISIN 11-15 12:39
PROVIDERS: ATTEND Internal Medicine Cardiovascular Disease
DX: N17.9 Acute kidney failure, unspecified (principal); I12.9 Hypertensive chronic kidney disease with stage 1 through stage 4 chronic kidney disease, or unspecified chronic kidney disease; N18.9 Chronic kidney disease, unspecified; I25.119 Atherosclerotic heart disease of native coronary artery with unspecified angina pectoris; I70.293 Other atherosclerosis of native arteries of extremities, bilateral legs; E11.9 Type 2 diabetes mellitus without complications; E78.5 Hyperlipidemia, unspecified; D64.9 Anemia, unspecified; G56.93 Unspecified mononeuropathy of bilateral upper limbs; G57.93 Unspecified mononeuropathy of bilateral lower limbs; K21.9 Gastro-esophageal reflux disease without esophagitis; M81.0 Age-related osteoporosis without current pathological fracture; R00.2 Palpitations; I65.23 Occlusion and stenosis of bilateral carotid arteries; Z79.4 Long term (current) use of insulin; Z79.899 Other long term (current) drug therapy
CPT/HCPCS: 36245; 36415; 71010; 75716; 80048; 80053; 80061; 82607; 82746; 82962; 83540; 83550; 85007; 85027; 85045; 85055; 85610; 85730; 86850; 86900; 86901; 86920; 87081; 93458

== ENCOUNTER → 2016-11-17 | Outpatient (CLI) | payer MEDICARE ==
[~2016-11-17] MED LIST changes: +ATOR10TA66 PO; +CINN500C2 PO; +DOXY100C42 PO; +MULT1TAB69 PO; +SENN1TAB6 PO
--- OUTSIDE RECORDS SUMMARY | 2016-11-17 12:23 | XMS REPORT | Continuity of Care Document ---
Author Author [facility] Organization [facility] Address Unknown Phone Unavailable Care Team Providers Care Child Caregiver Name Role Phone Mauricio Messina PCP [phone] Source Comments Some departments are not documenting in the electronic medical record. If you do not see the information that you expected, contact Release of Information in the Health Information Management department at [phone] for further assistance in locating additional records.[facility] Active Allergies and Adverse Reactions Allergen [...] Active (PROTONIX) 40 mg tablet daily. 15 jmmxannm-pjy-bmnn-FA-lute Take 2 Tabs by mouth Active in [...] other concerns. Contact office with questions at [phone] NWB. Tubigrip. Night splint at rest. OK for ROM to right knee. Full body PT as tolerated. 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 Hyperglycemia 11/27/2014 Right foot pain 09/14/2014 DM (diabetes mellitus) ([facility]) 09/14/2014 HTN (hypertension) 09/14/2014 HLD (hyperlipidemia) 09/14/2014 Wound, surgical, infected 06/29/2014 Postoperative anemia due to acute blood loss 06/02/2014 NATALIE (acute kidney injury) ([facility]) 06/02/2014 Urinary retention with incomplete bladder emptying 06/02/2014 Constipation 06/02/2014 Ankle fracture, right 05/28/2014 Infected hardware in right leg ([facility]) 05/28/2014 Open wound of ankle with complication 05/28/2014 Wound infection after surgery 05/28/2014 Peripheral vascular disease ([facility]) Immunizations Name Dates Previously Given Next Due [...]
[2016-11-17 13:02] LABS: CALCIUM 8.3 MG/DL (8.5-10.1); CREATININE SERUM 2.65 MG/DL (0.60-1.30); POTASSIUM 4.6 MMOL/L (3.6-5.0)
== END ==
LOC: HH 12:18
PROVIDERS: ATTEND Internal Medicine Cardiovascular Disease
DX: I13.0 Hypertensive heart and chronic kidney disease with heart failure and stage 1 through stage 4 chronic kidney disease, or unspecified chronic kidney disease (principal); N18.9 Chronic kidney disease, unspecified
CPT/HCPCS: 36415; 80048

== ENCOUNTER → 2016-12-10 | Outpatient (CLI) | payer MEDICARE ==
--- OUTSIDE RECORDS SUMMARY | 2016-12-10 12:13 | XMS REPORT | Continuity of Care Document ---
Author Author [facility] Organization [facility] Address Unknown Phone Unavailable Care Team Providers Care Launchman Name Role Phone Mauricio Messina PCP [phone] Source Comments Some departments are not documenting in the electronic medical record. If you do not see the information that you expected, contact Release of Information in the Health Information Management department at [phone] for further assistance in locating additional records.[facility] Active Allergies and Adverse Reactions Allergen [...] Active (PROTONIX) 40 mg tablet daily. 15 jomqbxak-qlt-ctzb-FA-lute Take 2 Tabs by mouth Active in [...] other concerns. Contact office with questions at [phone] NWB. Tubigrip. Night splint at rest. OK for ROM to right knee. Full body PT as tolerated. 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 Hyperglycemia 11/27/2014 Right foot pain 09/14/2014 DM (diabetes mellitus) ([facility]) 09/14/2014 HTN (hypertension) 09/14/2014 HLD (hyperlipidemia) 09/14/2014 Wound, surgical, infected 06/29/2014 Postoperative anemia due to acute blood loss 06/02/2014 NATALIE (acute kidney injury) ([facility]) 06/02/2014 Urinary retention with incomplete bladder emptying 06/02/2014 Constipation 06/02/2014 Ankle fracture, right 05/28/2014 Infected hardware in right leg ([facility]) 05/28/2014 Open wound of ankle with complication 05/28/2014 Wound infection after surgery 05/28/2014 Peripheral vascular disease ([facility]) Immunizations Name Dates Previously Given Next Due [...]
[2016-12-10 12:22] LABS: BASOPHILS % (AUTO) 0 % (0-10); EOSINOPHILS # (AUTO) 0.2 10^3/uL (0.0-0.3); EOSINOPHILS % (AUTO) 2 % (0-10); LYMPHOCYTES # (AUTO) 1.9 X 10^3 (1.0-4.0); LYMPHOCYTES % (AUTO) 23 % (12-44); MEAN CORPUSCULAR HEMOGLOBIN 28 PG (25-34); MEAN CORPUSCULAR HGB CONC 31 G/DL (32-36); MEAN CORPUSCULAR VOLUME 90 FL (80-99); MEAN PLATELET VOLUME 9.6 FL (7.4-10.4); MONOCYTES % (AUTO) 12 % (0-12); NEUTROPHILS # (AUTO) 5.2 X 10^3 (1.8-7.8); NEUTROPHILS % (AUTO) 63 % (42-75); PLATELET COUNT 283 10^3/uL (130-400); RED BLOOD COUNT 3.09 10^6/uL (4.35-5.85); WHITE BLOOD COUNT 8.2 10^3/uL (4.3-11.0)
[2016-12-10 12:28] LABS: BILIRUBIN,URINE NEGATIVE (NEGATIVE); KETONES,URINE NEGATIVE (NEGATIVE); LEUKOCYTE ESTERASE ,URINE 1+ (NEGATIVE); NITRITE,URINE NEGATIVE (NEGATIVE); PH,URINE 6 (5-9); PROTEIN,URINE 4+ (NEGATIVE); UROBILINOGEN,URINE NORMAL (NORMAL)
[2016-12-10 12:41] LABS: WBC,URINE 25-50 /HPF
[2016-12-10 12:44] LABS: ALBUMIN 2.4 G/DL (3.2-4.5); CALCIUM 8.4 MG/DL (8.5-10.1); CREATININE SERUM 3.41 MG/DL (0.60-1.30); PHOSPHORUS 4.6 MG/DL (2.3-4.7); POTASSIUM 4.7 MMOL/L (3.6-5.0)
[2016-12-10 13:02] LABS: PROTEIN/CREATININE RATIO 5.49
[2016-12-11 07:07] LABS: CALCIUM PARA THYROID HORMONE 8.2 mg/dL (8.5-10.5)
== END ==
LOC: HH 12:08
PROVIDERS: ATTEND Internal Medicine Nephrology
DX: N18.4 Chronic kidney disease, stage 4 (severe) (principal)
CPT/HCPCS: 80061; 80069; 81000; 82306; 82570; 82728; 83540; 83970; 84156; 85025; 87088

== ENCOUNTER → 2017-01-04 | Outpatient (CLI) | payer MEDICARE ==
--- OUTSIDE RECORDS SUMMARY | 2017-01-04 15:51 | XMS REPORT | Continuity of Care Document ---
Author Author [facility] Organization [facility] Address Unknown Phone Unavailable Care Team Providers Care Cotton Machine Operator Name Role Phone Mauricio Messina PCP [phone] Source Comments Some departments are not documenting in the electronic medical record. If you do not see the information that you expected, contact Release of Information in the Health Information Management department at [phone] for further assistance in locating additional records.[facility] Active Allergies and Adverse Reactions [...] Active (PROTONIX) 40 mg tablet daily. 15 xeovafcu-rqq-uhkj-FA-lute Take 2 Tabs by mouth Active in [...] other concerns. Contact office with questions at [phone] NWB. Tubigrip. Night splint at rest. OK for ROM to right knee. Full body PT as tolerated. 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 Hyperglycemia 11/27/2014 Right foot pain 09/14/2014 DM (diabetes mellitus) ([facility]) 09/14/2014 HTN (hypertension) 09/14/2014 HLD (hyperlipidemia) 09/14/2014 Wound, surgical, infected 06/29/2014 Postoperative anemia due to acute blood loss 06/02/2014 NATALIE (acute kidney injury) ([facility]) 06/02/2014 Urinary retention with incomplete bladder emptying 06/02/2014 Constipation 06/02/2014 Ankle fracture, right 05/28/2014 Infected hardware in right leg ([facility]) 05/28/2014 Open wound of ankle with complication 05/28/2014 Wound infection after surgery 05/28/2014 Peripheral vascular disease ([facility]) Immunizations Name Dates Previously Given [...]
[2017-01-04 16:14] LABS: ALBUMIN 2.5 G/DL (3.2-4.5); CALCIUM 8.6 MG/DL (8.5-10.1); CREATININE SERUM 2.63 MG/DL (0.60-1.30); PHOSPHORUS 3.8 MG/DL (2.3-4.7); POTASSIUM 4.7 MMOL/L (3.6-5.0)
== END ==
LOC: HH 15:47
PROVIDERS: ATTEND Internal Medicine Nephrology
DX: I13.10 Hypertensive heart and chronic kidney disease without heart failure, with stage 1 through stage 4 chronic kidney disease, or unspecified chronic kidney disease (principal); I50.9 Heart failure, unspecified; N18.4 Chronic kidney disease, stage 4 (severe)
CPT/HCPCS: 80069

== ENCOUNTER → 2017-01-28 | Outpatient (CLI) | payer MEDICARE ==
[2017-01-28 18:08] LABS: ALBUMIN 2.9 G/DL (3.2-4.5); CALCIUM 8.8 MG/DL (8.5-10.1); CREATININE SERUM 3.03 MG/DL (0.60-1.30); POTASSIUM 4.5 MMOL/L (3.6-5.0)
== END ==
LOC: HH 17:39
PROVIDERS: ATTEND Internal Medicine Nephrology
DX: N18.4 Chronic kidney disease, stage 4 (severe) (principal)
CPT/HCPCS: 80069

== ENCOUNTER 2017-02-02 13:26 | Outpatient (RCR) | payer MEDICARE, OTHER ==
--- OUTSIDE RECORDS SUMMARY | 2016-11-17 13:19 | XMS REPORT | Continuity of Care Document ---
Author Author [facility] Organization [facility] Address Unknown Phone Unavailable Care Team Providers Care Mounted Police Officer Name Role Phone Mauricio Messina PCP [phone] Source Comments Some departments are not documenting in the electronic medical record. If you do not see the information that you expected, contact Release of Information in the Health Information Management department at [phone] for further assistance in locating additional records.[facility] Active Allergies and Adverse Reactions Allergen [...] Active (PROTONIX) 40 mg tablet daily. 15 hphwfarl-tti-ypon-FA-lute Take 2 Tabs by mouth Active in [...] other concerns. Contact office with questions at [phone] NWB. Tubigrip. Night splint at rest. OK for ROM to right knee. Full body PT as tolerated. 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 Hyperglycemia 11/27/2014 Right foot pain 09/14/2014 DM (diabetes mellitus) ([facility]) 09/14/2014 HTN (hypertension) 09/14/2014 HLD (hyperlipidemia) 09/14/2014 Wound, surgical, infected 06/29/2014 Postoperative anemia due to acute blood loss 06/02/2014 NATALIE (acute kidney injury) ([facility]) 06/02/2014 Urinary retention with incomplete bladder emptying 06/02/2014 Constipation 06/02/2014 Ankle fracture, right 05/28/2014 Infected hardware in right leg ([facility]) 05/28/2014 Open wound of ankle with complication 05/28/2014 Wound infection after surgery 05/28/2014 Peripheral vascular disease ([facility]) Immunizations Name Dates Previously Given [...]
== END 2017-02-15 | disposition home or self-care (01) ==
LOC: WOUNDCARE 13:26
PROVIDERS: ATTEND Nurse Practitioner
DX: E11.621 Type 2 diabetes mellitus with foot ulcer (principal); L97.412 Non-pressure chronic ulcer of right heel and midfoot with fat layer exposed
CPT/HCPCS: 11042; 87070; 87075; 87077; 87186; 87205; 97597; 97598; 99213

== ENCOUNTER → 2017-02-15 | Outpatient (CLI) | payer MEDICARE ==
[2017-02-15 13:40] LABS: BASOPHILS % (AUTO) 1 % (0-10); EOSINOPHILS # (AUTO) 0.3 10^3/uL (0.0-0.3); EOSINOPHILS % (AUTO) 4 % (0-10); LYMPHOCYTES # (AUTO) 1.8 X 10^3 (1.0-4.0); LYMPHOCYTES % (AUTO) 26 % (12-44); MEAN CORPUSCULAR HEMOGLOBIN 29 PG (25-34); MEAN CORPUSCULAR HGB CONC 32 G/DL (32-36); MEAN CORPUSCULAR VOLUME 91 FL (80-99); MEAN PLATELET VOLUME 10.1 FL (7.4-10.4); MONOCYTES # (AUTO) 0.7 X 10^3 (0.0-1.0); MONOCYTES % (AUTO) 9 % (0-12); NEUTROPHILS # (AUTO) 4.4 X 10^3 (1.8-7.8); NEUTROPHILS % (AUTO) 61 % (42-75); PLATELET COUNT 211 10^3/uL (130-400); RED BLOOD COUNT 4.01 10^6/uL (4.35-5.85); RED CELL DISTRIBUTION WIDTH 14.5 % (10.0-14.5); WHITE BLOOD COUNT 7.2 10^3/uL (4.3-11.0)
[2017-02-15 13:41] LABS: BILIRUBIN,URINE NEGATIVE (NEGATIVE); KETONES,URINE NEGATIVE (NEGATIVE); LEUKOCYTE ESTERASE ,URINE 1+ (NEGATIVE); NITRITE,URINE NEGATIVE (NEGATIVE); PH,URINE 6 (5-9); PROTEIN,URINE 4+ (NEGATIVE); UROBILINOGEN,URINE NORMAL (NORMAL)
[2017-02-15 14:09] LABS: CALCIUM 9.1 MG/DL (8.5-10.1); CREATININE SERUM 3.22 MG/DL (0.60-1.30); PHOSPHORUS 5.1 MG/DL (2.3-4.7); POTASSIUM 4.4 MMOL/L (3.6-5.0)
[2017-02-15 14:22] LABS: PROTEIN/CREATININE RATIO 8.07
[2017-02-16 10:14] LABS: CALCIUM PARA THYROID HORMONE 8.8 mg/dL (8.5-10.5)
== END ==
LOC: HH 13:29
PROVIDERS: ATTEND Internal Medicine Nephrology
DX: I13.10 Hypertensive heart and chronic kidney disease without heart failure, with stage 1 through stage 4 chronic kidney disease, or unspecified chronic kidney disease (principal); N18.4 Chronic kidney disease, stage 4 (severe)
CPT/HCPCS: 80069; 81000; 82306; 82570; 82728; 83540; 83970; 84156; 85025; 87088

== ENCOUNTER 2017-03-23 11:44 | Outpatient (RCR) | payer MEDICARE ==
--- OUTSIDE RECORDS SUMMARY | 2016-12-29 13:46 | XMS REPORT | Continuity of Care Document ---
Author Author [facility] Organization [facility] Address Unknown Phone Unavailable Care Team Providers Care Pairer Substandard Name Role Phone Mauricio Messina PCP [phone] Source Comments Some departments are not documenting in the electronic medical record. If you do not see the information that you expected, contact Release of Information in the Health Information Management department at [phone] for further assistance in locating additional records.[facility] Active Allergies and Adverse Reactions Allergen Noted [...] Active (PROTONIX) 40 mg tablet daily. 15 lsrurtvx-ckn-ernq-FA-lute Take 2 Tabs by mouth Active in [...] other concerns. Contact office with questions at [phone] NWB. Tubigrip. Night splint at rest. OK for ROM to right knee. Full body PT as tolerated. 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 Hyperglycemia 11/27/2014 Right foot pain 09/14/2014 DM (diabetes mellitus) ([facility]) 09/14/2014 HTN (hypertension) 09/14/2014 HLD (hyperlipidemia) 09/14/2014 Wound, surgical, infected 06/29/2014 Postoperative anemia due to acute blood loss 06/02/2014 NATALIE (acute kidney injury) ([facility]) 06/02/2014 Urinary retention with incomplete bladder emptying 06/02/2014 Constipation 06/02/2014 Ankle fracture, right 05/28/2014 Infected hardware in right leg ([facility]) 05/28/2014 Open wound of ankle with complication 05/28/2014 Wound infection after surgery 05/28/2014 Peripheral vascular disease ([facility]) Immunizations Name Dates Previously Given Next Due [...]
[2016-12-29 14:02] VITALS: BP 161/60
[2016-12-29] MEDS: DARBEPOETIN 40 MCG/ML (ARANESP) 1 ML VIAL SC SCH (14:14)
[2017-01-12 13:01] VITALS: BP 171/82
[2017-01-12] MEDS: DARBEPOETIN 40 MCG/ML (ARANESP) 1 ML VIAL SC SCH (13:14)
[2017-01-26 12:53] VITALS: BP 169/66
[2017-01-26] MEDS: DARBEPOETIN 40 MCG/ML (ARANESP) 1 ML VIAL SC SCH (13:55)
[2017-02-09 13:00] VITALS: BP 162/88
[2017-02-09] MEDS: DARBEPOETIN 40 MCG/ML (ARANESP) 1 ML VIAL SC SCH (13:20)
[2017-03-09 13:20] VITALS: BP 152/71
[~2017-03-23] VITALS: Ht 157.5 cm; Wt 68.0 kg
[2017-03-23 13:00] VITALS: BP 179/71
== END 2017-03-29 | disposition home or self-care (01) ==
LOC: SDC 11:44
PROVIDERS: ATTEND Nurse Practitioner
DX: N18.4 Chronic kidney disease, stage 4 (severe) (principal); D64.9 Anemia, unspecified
CPT/HCPCS: 36415; 85014; 85018; 96372

== ENCOUNTER → 2017-03-25 | Outpatient (CLI) | payer MEDICARE ==
[2017-03-25 13:01] LABS: ALBUMIN 3.2 G/DL (3.2-4.5); CALCIUM 9.1 MG/DL (8.5-10.1); CREATININE SERUM 3.58 MG/DL (0.60-1.30); PHOSPHORUS 5.1 MG/DL (2.3-4.7); POTASSIUM 4.7 MMOL/L (3.6-5.0)
== END ==
LOC: HH 12:30
PROVIDERS: ATTEND Internal Medicine Nephrology
DX: N18.4 Chronic kidney disease, stage 4 (severe) (principal)
CPT/HCPCS: 80069

== ENCOUNTER → 2017-04-26 | Outpatient (CLI) | payer MEDICARE ==
[2017-04-26 14:14] LABS: ALBUMIN 3.2 GM/DL (3.2-4.5); CALCIUM 8.9 MG/DL (8.5-10.1); CREATININE SERUM 3.77 MG/DL (0.60-1.30); PHOSPHORUS 5.2 MG/DL (2.3-4.7); POTASSIUM 4.9 MMOL/L (3.6-5.0)
[2017-04-26 19:08] LABS: BILIRUBIN,URINE NEGATIVE (NEGATIVE); KETONES,URINE NEGATIVE (NEGATIVE); LEUKOCYTE ESTERASE ,URINE NEGATIVE (NEGATIVE); NITRITE,URINE NEGATIVE (NEGATIVE); PH,URINE 6 (5-9); PROTEIN,URINE 4+ (NEGATIVE); UROBILINOGEN,URINE NORMAL (NORMAL)
[2017-04-26 19:15] LABS: WBC,URINE RARE /HPF
== END ==
LOC: HH 13:45
PROVIDERS: ATTEND Internal Medicine Nephrology
DX: R30.0 Dysuria (principal)
CPT/HCPCS: 80069; 81000

== ENCOUNTER 2017-05-04 10:50 | Outpatient (RCR) | payer MEDICARE, OTHER | END 2017-05-17 | disposition home or self-care (01) | LOC: WOUNDCARE 10:50 | PROVIDERS: ATTEND Nurse Practitioner | DX: E11.621 Type 2 diabetes mellitus with foot ulcer (principal); L97.412 Non-pressure chronic ulcer of right heel and midfoot with fat layer exposed | CPT/HCPCS: 11042; 99212 ==

== ENCOUNTER 2017-05-25 12:23 | Outpatient (RCR) | payer MEDICARE, OTHER | END 2017-05-25 16:00 | disposition home or self-care (01) | LOC: WOUNDCARE 12:23 | PROVIDERS: ATTEND Nurse Practitioner | DX: E11.621 Type 2 diabetes mellitus with foot ulcer (principal); L97.412 Non-pressure chronic ulcer of right heel and midfoot with fat layer exposed ==

== ENCOUNTER → 2017-05-25 | Outpatient (CLI) | payer MEDICARE | LOC: WOUNDCARE 10:48 | PROVIDERS: ATTEND Nurse Practitioner | DX: E11.621 Type 2 diabetes mellitus with foot ulcer (principal); L97.412 Non-pressure chronic ulcer of right heel and midfoot with fat layer exposed | CPT/HCPCS: 11042 ==

== ENCOUNTER → 2017-05-27 | Outpatient (CLI) | payer MEDICARE, OTHER ==
[2017-05-27 12:19] LABS: MEAN PLATELET VOLUME 10.1 FL (7.4-10.4); RED BLOOD COUNT 3.79 10^6/uL (4.35-5.85); RED CELL DISTRIBUTION WIDTH 13.7 % (10.0-14.5); WHITE BLOOD COUNT 7.5 10^3/uL (4.3-11.0)
[2017-05-27 12:41] LABS: ALBUMIN 3.2 GM/DL (3.2-4.5); CALCIUM 9.2 MG/DL (8.5-10.1); CREATININE SERUM 3.49 MG/DL (0.60-1.30); PHOSPHORUS 4.8 MG/DL (2.3-4.7); POTASSIUM 4.3 MMOL/L (3.6-5.0)
[2017-05-27 12:53] LABS: PROTEIN/CREATININE RATIO 7.49
[2017-05-28 06:32] LABS: CALCIUM PARA THYROID HORMONE 8.8 mg/dL (8.5-10.5)
== END ==
LOC: HH 12:00
PROVIDERS: ATTEND Internal Medicine Nephrology
DX: I12.9 Hypertensive chronic kidney disease with stage 1 through stage 4 chronic kidney disease, or unspecified chronic kidney disease (principal); N18.4 Chronic kidney disease, stage 4 (severe); E87.5 Hyperkalemia; K31.84 Gastroparesis; R80.9 Proteinuria, unspecified; E88.09 Other disorders of plasma-protein metabolism, not elsewhere classified; D64.9 Anemia, unspecified; E78.5 Hyperlipidemia, unspecified; E11.42 Type 2 diabetes mellitus with diabetic polyneuropathy; E55.9 Vitamin D deficiency, unspecified; N25.81 Secondary hyperparathyroidism of renal origin; D72.829 Elevated white blood cell count, unspecified
CPT/HCPCS: 80061; 80069; 82306; 82570; 82728; 83540; 83970; 84156; 85027

== ENCOUNTER → 2017-06-15 | Outpatient (CLI) | payer MEDICARE | LOC: WOUNDCARE 11:08 | PROVIDERS: ATTEND Nurse Practitioner | DX: E11.621 Type 2 diabetes mellitus with foot ulcer (principal); L97.412 Non-pressure chronic ulcer of right heel and midfoot with fat layer exposed; N18.4 Chronic kidney disease, stage 4 (severe); R60.1 Generalized edema; I87.312 Chronic venous hypertension (idiopathic) with ulcer of left lower extremity | CPT/HCPCS: 11042 ==

== ENCOUNTER → 2017-06-22 | Outpatient (CLI) | payer MEDICARE | LOC: WOUNDCARE 10:54 | PROVIDERS: ATTEND Nurse Practitioner | DX: E11.621 Type 2 diabetes mellitus with foot ulcer (principal); L97.412 Non-pressure chronic ulcer of right heel and midfoot with fat layer exposed; N18.4 Chronic kidney disease, stage 4 (severe); R60.1 Generalized edema | CPT/HCPCS: 11042; 87070; 87075; 87205 ==

== ENCOUNTER 2017-06-29 11:47 | Outpatient (RCR) | payer MEDICARE, OTHER ==
[2017-04-06] MEDS: DARBEPOETIN 40 MCG/ML (ARANESP) 1 ML VIAL SC SCH (13:21)
[2017-04-06 13:25] VITALS: BP 135/61
[2017-04-20 12:17] VITALS: BP 153/54
[2017-04-20] MEDS: DARBEPOETIN 40 MCG/ML (ARANESP) 1 ML VIAL SC SCH (12:43)
[2017-05-04 12:30] VITALS: BP 167/57
[2017-05-18 12:08] VITALS: BP 1/1
[2017-06-15] MEDS: DARBEPOETIN 40 MCG/ML (ARANESP) 1 ML VIAL SC SCH (13:25)
[2017-06-15 14:01] VITALS: BP 139/59
[~2017-06-29] VITALS: Ht 157.5 cm; Wt 68.0 kg
[2017-06-29 12:20] VITALS: BP 168/58
[2017-06-29] MEDS: DARBEPOETIN 40 MCG/ML (ARANESP) 1 ML VIAL SC SCH (12:22)
== END 2017-07-05 | disposition home or self-care (01) ==
LOC: SDC 11:47
PROVIDERS: ATTEND Nurse Practitioner
DX: N18.4 Chronic kidney disease, stage 4 (severe) (principal); D63.1 Anemia in chronic kidney disease
CPT/HCPCS: 36415; 85014; 85018; 96372

== ENCOUNTER → 2017-07-02 | Outpatient (CLI) | payer MEDICARE ==
[2017-07-02 17:34] LABS: BASOPHILS % (AUTO) 0 % (0-10); EOSINOPHILS # (AUTO) 0.2 10^3/uL (0.0-0.3); EOSINOPHILS % (AUTO) 3 % (0-10); LYMPHOCYTES # (AUTO) 2.2 X 10^3 (1.0-4.0); LYMPHOCYTES % (AUTO) 27 % (12-44); MEAN CORPUSCULAR HEMOGLOBIN 29 PG (25-34); MEAN CORPUSCULAR HGB CONC 32 G/DL (32-36); MEAN CORPUSCULAR VOLUME 92 FL (80-99); MEAN PLATELET VOLUME 10.2 FL (7.4-10.4); MONOCYTES # (AUTO) 0.7 X 10^3 (0.0-1.0); MONOCYTES % (AUTO) 9 % (0-12); NEUTROPHILS % (AUTO) 61 % (42-75); PLATELET COUNT 214 10^3/uL (130-400); RED BLOOD COUNT 3.57 10^6/uL (4.35-5.85); RED CELL DISTRIBUTION WIDTH 13.9 % (10.0-14.5); WHITE BLOOD COUNT 8.2 10^3/uL (4.3-11.0)
[2017-07-02 17:44] LABS: ALBUMIN 3.2 GM/DL (3.2-4.5); CALCIUM 8.9 MG/DL (8.5-10.1); CREATININE SERUM 3.88 MG/DL (0.60-1.30); PHOSPHORUS 4.7 MG/DL (2.3-4.7); POTASSIUM 4.2 MMOL/L (3.6-5.0)
== END ==
LOC: HH 17:29
PROVIDERS: ATTEND Internal Medicine Nephrology
DX: E11.22 Type 2 diabetes mellitus with diabetic chronic kidney disease (principal); N18.4 Chronic kidney disease, stage 4 (severe); D64.9 Anemia, unspecified
CPT/HCPCS: 80069; 85025

== ENCOUNTER → 2017-07-06 | Outpatient (CLI) | payer MEDICARE | LOC: WOUNDCARE 10:44 | PROVIDERS: ATTEND Nurse Practitioner | DX: L97.412 Non-pressure chronic ulcer of right heel and midfoot with fat layer exposed (principal) | CPT/HCPCS: 11042 ==

== ENCOUNTER 2017-07-13 11:56 | Outpatient (RCR) | payer MEDICARE ==
[~2017-07-13] VITALS: Ht 157.5 cm; Wt 68.0 kg
[2017-07-13] MEDS ORDERED: DARBEPOETIN 40 MCG/ML (ARANESP) 1 ML VIAL SC SCH (12:15)
[2017-07-13 13:31] VITALS: BP 116/72
== END 2017-07-24 | disposition home or self-care (01) ==
LOC: SDC 11:56
PROVIDERS: ATTEND Nurse Practitioner
DX: D63.1 Anemia in chronic kidney disease; N18.4 Chronic kidney disease, stage 4 (severe)
CPT/HCPCS: 96372

== ENCOUNTER → 2017-07-19 | Outpatient (CLI) | payer MEDICARE ==
[2017-07-19 14:28] LABS: MEAN PLATELET VOLUME 10.6 FL (7.4-10.4); RED BLOOD COUNT 3.84 10^6/uL (4.35-5.85); RED CELL DISTRIBUTION WIDTH 13.2 % (10.0-14.5)
[2017-07-19 14:38] LABS: ALBUMIN 3.4 GM/DL (3.2-4.5); CALCIUM 9.3 MG/DL (8.5-10.1); CREATININE SERUM 3.82 MG/DL (0.60-1.30); PHOSPHORUS 4.2 MG/DL (2.3-4.7); POTASSIUM 4.3 MMOL/L (3.6-5.0)
[2017-07-19 15:05] LABS: PROTEIN/CREATININE RATIO 4.75
== END ==
LOC: HH 12:00
PROVIDERS: ATTEND Nurse Practitioner
DX: I13.10 Hypertensive heart and chronic kidney disease without heart failure, with stage 1 through stage 4 chronic kidney disease, or unspecified chronic kidney disease (principal); N18.4 Chronic kidney disease, stage 4 (severe); E11.29 Type 2 diabetes mellitus with other diabetic kidney complication; N25.81 Secondary hyperparathyroidism of renal origin; E55.9 Vitamin D deficiency, unspecified; E11.40 Type 2 diabetes mellitus with diabetic neuropathy, unspecified; E78.5 Hyperlipidemia, unspecified; E87.5 Hyperkalemia; D64.9 Anemia, unspecified; R80.8 Other proteinuria; K31.84 Gastroparesis
CPT/HCPCS: 80069; 82570; 84156; 85027

== ENCOUNTER → 2017-08-04 | Outpatient (CLI) | payer MEDICARE ==
--- NOTE | 2017-08-04 18:28 | Diagnostic Imaging Report ---
INDICATION: Chronic skin ulcer. COMPARISON: 10/14/2016. FINDINGS: Three radiographic views of the right foot were obtained. There is severe, yet chronic appearing deformity of the right foot suggestive of Charcot joint. There is also significant abnormal soft tissue swelling of the right foot. No unexpected radiopaque foreign bodies are seen. Postsurgical changes and previous intramedullary brian placement are noted within the included portions of the distal tibia. There is extensive calcified arteriosclerosis. BB marker is placed over the patient's soft tissue injury. Underlying osseous structures appear to be intact. There is no evidence of acute fracture regarding the remainder of the right foot. IMPRESSION: 1. No appreciable erosive deformity regarding the right foot. Please note, however, that osteomyelitis cannot be excluded based on radiographs alone. MRI is recommended for further characterization. If MRI is contraindicated, triple phase bone scan could be performed. 2. Severe, yet chronic appearing deformity of the right foot suggestive of underlying Charcot joint. 3. Severe soft tissue swelling. Dictated by: Dictated on workstation # [id number]
== END ==
LOC: RAD 12:02
PROVIDERS: ATTEND Internal Medicine
DX: R93.7 Abnormal findings on diagnostic imaging of other parts of musculoskeletal system (principal); M79.9 Soft tissue disorder, unspecified; L98.492 Non-pressure chronic ulcer of skin of other sites with fat layer exposed
CPT/HCPCS: 73630

== ENCOUNTER → 2017-08-21 | Outpatient (CLI) | payer MEDICARE ==
[2017-08-21 10:42] LABS: CREATININE SERUM 3.54 MG/DL (0.60-1.30)
--- NOTE | 2017-08-21 16:17 | Diagnostic Imaging Report ---
PROCEDURE: MRI right lower extremity without contrast. INDICATION: Nonhealing ulcer. History of diabetes. TECHNIQUE: Multiplanar, multisequence non contrast-enhanced MRI of the right lower extremity was accomplished. CORRELATION STUDY: Radiographs 08/04/2017. FINDINGS: There is a metallic damon artifact from a longstem intramedullary brian over the distal femur. There is marked deformity about the visualized hind and midfoot. It could be posttraumatic or neuropathic changes given history of diabetes. Significant distortion of the posterior metatarsals. A normal-appearing talus and/or calcaneus is not visualized. There does appear to be some altered signal intensity in the residual portion of what appears to be likely the calcaneus. It is suspect for osteomyelitis. Extensive soft tissue edema is noted in and around the hindfoot, particularly along the dorsal aspect. A definitive pocket of fluid or abscess formation, however, is not demonstrated. Multifocal areas of signal abnormality noted distal to the tibia. IMPRESSION: 1. Marked deformity of visualized hind and midfoot could be owing to neuropathic changes or prior traumatic changes. 2. There is rather pronounced soft tissue edema particularly along the dorsal aspect of the foot without definitive soft tissue abscess formation. 3. There does appear to be a small area of signal abnormality about the visualized portions of the remaining either calcaneus and/or talus suggestive of small area of osteomyelitis along the plantar aspect near the area marked as the region of ulceration. Dictated by: Dictated on workstation # [id number]
== END ==
LOC: RAD 10:02
PROVIDERS: ATTEND Internal Medicine
DX: L97.519 Non-pressure chronic ulcer of other part of right foot with unspecified severity (principal); E11.621 Type 2 diabetes mellitus with foot ulcer; E11.22 Type 2 diabetes mellitus with diabetic chronic kidney disease; N18.9 Chronic kidney disease, unspecified; R60.0 Localized edema
CPT/HCPCS: 36415; 82565; 84520

== ENCOUNTER → 2017-08-24 | Outpatient (CLI) | payer MEDICARE ==
[2017-08-24 12:01] LABS: BASOPHILS # (AUTO) 0.1 10^3/uL (0.0-0.1); BASOPHILS % (AUTO) 1 % (0-10); EOSINOPHILS # (AUTO) 0.5 10^3/uL (0.0-0.3); EOSINOPHILS % (AUTO) 7 % (0-10); LYMPHOCYTES # (AUTO) 1.9 X 10^3 (1.0-4.0); LYMPHOCYTES % (AUTO) 23 % (12-44); MEAN CORPUSCULAR HEMOGLOBIN 30 PG (25-34); MEAN CORPUSCULAR HGB CONC 33 G/DL (32-36); MEAN CORPUSCULAR VOLUME 89 FL (80-99); MEAN PLATELET VOLUME 11.1 FL (7.4-10.4); MONOCYTES # (AUTO) 0.7 X 10^3 (0.0-1.0); MONOCYTES % (AUTO) 9 % (0-12); NEUTROPHILS % (AUTO) 61 % (42-75); PLATELET COUNT 192 10^3/uL (130-400); RED BLOOD COUNT 3.75 10^6/uL (4.35-5.85); RED CELL DISTRIBUTION WIDTH 13.2 % (10.0-14.5); WHITE BLOOD COUNT 8.2 10^3/uL (4.3-11.0)
[2017-08-24 12:16] LABS: ALBUMIN 3.2 GM/DL (3.2-4.5); CALCIUM 8.9 MG/DL (8.5-10.1); CREATININE SERUM 3.69 MG/DL (0.60-1.30); PHOSPHORUS 4.2 MG/DL (2.3-4.7); POTASSIUM 4.4 MMOL/L (3.6-5.0)
== END ==
LOC: HH 13:00
PROVIDERS: ATTEND Internal Medicine Nephrology
DX: N19 Unspecified kidney failure (principal); D64.9 Anemia, unspecified
CPT/HCPCS: 80069; 85025

== ENCOUNTER 2017-09-07 11:53 | Outpatient (RCR) | payer MEDICARE ==
[2017-08-10 11:45] VITALS: BP 184/71
[2017-08-10 12:15] LABS: HEMOGLOBIN 11.4 G/DL (11.5-16.0)
[~2017-09-07] VITALS: Ht 157.5 cm; Wt 72.6 kg
[2017-09-07 11:55] VITALS: BP 138/61
[2017-09-07 12:25] LABS: HEMOGLOBIN 10.6 G/DL (11.5-16.0)
[2017-09-07 12:41] LABS: ALBUMIN 3.1 GM/DL (3.2-4.5); CALCIUM 9.5 MG/DL (8.5-10.1); CREATININE SERUM 4.25 MG/DL (0.60-1.30); PHOSPHORUS 4.4 MG/DL (2.3-4.7); POTASSIUM 4.4 MMOL/L (3.6-5.0)
[2017-09-07] MEDS ORDERED: DARBEPOETIN 25 MCG/ML (ARANESP) 1 ML HOSPITAL SC ONE (13:15)
== END 2017-11-08 | disposition home or self-care (01) ==
LOC: SDC 11:53
PROVIDERS: ATTEND Nurse Practitioner
DX: N18.4 Chronic kidney disease, stage 4 (severe) (principal); D63.1 Anemia in chronic kidney disease
CPT/HCPCS: 36415; 80069; 82728; 83540; 85014; 85018; 96372

== ENCOUNTER 2018-07-12 08:58 | Emergency (ER) | payer MEDICARE ==
[~2018-07-12] VITALS: Ht 162.6 cm; Wt 72.6 kg
[~2018-07-12 08:58] MED LIST changes: -SENN1TAB6 PO; +SENN1TAB7 PO
--- OUTSIDE RECORDS SUMMARY | 2018-07-12 09:09 | XMS REPORT | Clinical Summary ---
Author Author [facility] Organization [facility] Address Unknown Phone Unavailable Care Team Providers Care Outsole Handler Name Role Phone Mingo Chang MD Unavailable Mauricio Messina MD PCP Dolly Acosta RN Unavailable Unavailable Latricia Alvarado APRN Unavailable Luis Enrique Matt MD Unavailable Garland Quezada MD Unavailable Allison Mackenzie RN Unavailable Unavailable Dacia Fowler CORRECTIONAL THERAPY TEACHER Unavailable Francisca Ventura DO Unavailable Yoel Ventura MD Unavailable Freddy Greenberg DO Unavailable Jaxon Piedra MD Unavailable Doreen Sharp MD Unavailable Babs Loza RN Unavailable Unavailable Mingo Mccall MD Unavailable Daniele Sarmiento MD Unavailable Patricia Gómez APRN Unavailable Lesa Sparrow MD Unavailable Gail Ahmadi MD [phone] Source Comments Some departments are not documenting in the electronic medical record. If you do not see the information that you expected, contact Release of Information in the Health Information Management department at [phone] for further assistance in locating additional records.[facility] Allergies Active Allergy Reactions Severity Noted Date Comments Sulfamethoxazole-Trimetho UNKNOWN Low 07/07/2016 prim Gabapentin SEE COMMENTS 05/28/2014 disorientation and swollen tongue Clopidogrel DIZZINESS Low 04/24/2016 Current Medications Prescription Sig. Disp. Refills Start [...] Active (PROTONIX) 40 mg tablet daily. 15 beyelxtc-dlx-iddc-FA-lute Take 2 Tabs by mouth Active in [...] other concerns. Contact office with questions at [phone] NWB. Tubigrip. Night splint at rest. OK for ROM to right knee. Full body PT as tolerated. Continue dressing changes to right heel wound as previously ordered Fu in 4 wks for xrays with Heddings Fall 04/24/2016 Syncope, near 04/24/2016 Closed fracture of ischium ([facility]) 04/24/2016 NATALIE (acute kidney injury) ([facility]) 04/24/2016 Urinary tract infection with hematuria 04/24/2016 Hyperkalemia 04/24/2016 Altered mental status, unspecified 04/24/2016 Failed shoulder arthroplasty s/p surgery elsewhere 07/22/2015 Hyperglycemia 11/27/2014 Right foot pain 09/14/2014 DM (diabetes mellitus) ([facility]) 09/14/2014 HTN (hypertension) 09/14/2014 HLD (hyperlipidemia) 09/14/2014 Wound, surgical, infected 06/29/2014 Postoperative anemia due to acute blood loss 06/02/2014 NATALIE (acute kidney injury) ([facility]) 06/02/2014 Urinary retention with incomplete bladder emptying 06/02/2014 Constipation 06/02/2014 Ankle fracture, right 05/28/2014 Infected hardware in right leg ([facility]) 05/28/2014 Open wound of ankle with complication 05/28/2014 Wound infection after surgery 05/28/2014 Peripheral vascular disease ([facility]) Immunizations Name Dates Previously Given Next Due Flu Vaccine 07/17/2014 Quadrivalent=>3 Yo (Preservative Free) Family History Medical History Relation Name Comments Cancer Mother Relation Name Status Comments Mother Social History Tobacco Use Types Packs/Day Years Used Date Former Smoker Smokeless Tobacco: Never Used Tobacco Cessation: Counseling Given: Yes Alcohol Use Drinks/Week oz/Week Comments No 0 Standard 0.0 drinks or equivalent Sex Assigned at Date Recorded Not on file Last Filed Vital Signs Vital Sign Reading Time Taken Blood Pressure 157/76 07/07/2016 12:46 PM CDT Pulse 77 07/07/2016 12:46 PM CDT Temperature 36.8 C (98.2 F) 07/07/2016 12:46 PM CDT Respiratory Rate 16 01/03/2015 2:35 PM CDT Oxygen Saturation 94% 05/08/2016 2:20 PM CDT Inhaled Oxygen - - Concentration Weight 74.8 kg (165 lb) 07/07/2016 12:46 PM CDT Height 157.5 cm (5' 2") 07/07/2016 12:46 PM CDT Body Mass Index 30.18 07/07/2016 12:46 PM CDT Plan of Treatment Health Maintenance Due Date Last Done Comments HEPATITIS C SCREENING 1946 PHYSICAL (COMPREHENSIVE) 1953 EXAM PERTUSSIS VACCINE 1957 TETANUS VACCINE 1963 BREAST CANCER SCREENING 1986 COLORECTAL CANCER 02/09/1996 SCREENING SHINGLES RECOMBINANT 02/09/1996 VACCINE (1 of 2) OSTEOPOROSIS SCREENING 2011 PNEUMONIA (PCV13/PPSV23) 2011 VACCINES (1 of 2 - PCV13) INFLUENZA VACCINE 07/25/2018 07/17/2014 Implants Implanted Type Area Modern Dancer Device Expiration Model / Identifier Date Serial / Lot Nail 12mm 28.5cm Tibia Nail-Ex Right: Leg SYNTHES:[employer] 10/24/2021 [id number] Intramedullary Cannulated [place] S / Implanted: Qty: 1 on 04/29/2016 by N/A / Daniele Sarmiento MD N/A Screw Bone 5mm 8mm 32mm Titanium Right: Leg SYNTHES:SYNTHES [id number] / Full Thread Femur Blunt Tip [place] N/A / Implanted: Qty: 1 on 04/29/2016 by N/A Daniele Sarmiento MD Screw Bone 5mm 8mm 36mm Titanium Right: Leg SYNTHES:SYNTHES [id number] / Full Thread Femur Blunt Tip RUST N/A / Implanted: Qty: 1 on 04/29/2016 by N/A Daniele Sarmiento MD Results Not on filefrom Last 3 Months
--- OUTSIDE RECORDS SUMMARY | 2018-07-12 09:10 | XMS REPORT ---
Author Author OLYA WILLIS Organization [facility], [place] Address [address] [place] [address] Care Team Providers Care Psychiatric Nursing Assistant Name Role Phone OLYA WILLIS Unavailable PROBLEMS Type Condition ICD9-CM Code GKB98-LH Code Onset Dates Condition Status SNOMED Code Problem GERD (gastroesophageal reflux disease) K21.9 Active 743109323 Problem Type 2 diabetes mellitus with diabetic autonomic (poly)neuropathy E11.43 Active 055054081 Problem Gastroparesis K31.84 Active 785298073 Problem Unsteady gait R26.81 Active 70962616 Problem Pressure ulcer of unspecified heel, stage 4 L89.604 Active 286043488 Problem Chronic osteomyelitis of right foot with draining sinus M86.471 Active [id number] Problem Chronic skin ulcer with fat layer exposed L98.492 Active 56150509 Problem Non-pressure chronic ulcer of right heel and midfoot with unspecified severity L97.419 Active 112242662 Problem Type 2 diabetes mellitus with foot ulcer E11.621 Active 95607145516333 Problem Chronic kidney disease N18.9 Active 417098658 Problem Paresthesias R20.2 Active 75220309 Problem Hypertension I10 Active 25414470 Problem Diabetic polyneuropathy associated with type 2 diabetes mellitus E11.42 Active 82303887 Problem Diabetes mellitus E11.9 Active 07435245 Problem Venous insufficiency I87.2 Active 93211243 ALLERGIES No Information ENCOUNTERS Encounter Location Date Diagnosis [facility], [place] [address] [facility] [id number] [address] Jun, [facility] [place] [address] [address] Jun, [facility], [place] [address] [id number] [address] 9[address] May, [facility], [place] [id number] [place] [address] 59980- 8015 May, Chronic skin ulcer with fat layer exposed L98.492 [place] [id number] [place] [address] 18456- 9748 Apr, [place] [id number] [place] [address] 05449- 0726 Apr, Type 2 diabetes mellitus with foot ulcer E11.621 and Unsteady gait R26.81 [place] [id number] [place] [address] 15541- 4738 Mar, Decubitus ulcer of right heel, stage 3 L89.613 [place] [address] [address]- 2798 Mar, [place] [id number] [place] [address] 06278- 2932 Mar, Pressure ulcer of unspecified heel, stage 4 L89.604 and Type 2 diabetes mellitus with foot ulcer E11.621 [place] [id number] [place] [address] 22845- 1019 Mar, Encounter for medication monitoring Z51.81 [place] [id number] [place] [address] 24204- 0759 Mar, Type 2 diabetes mellitus with foot ulcer E11.621 and Non- pressure chronic ulcer of right heel and midfoot with unspecified severity L97.419 [place] [id number] [place] [address] 16710- 0300 February, [place] [id number] [place] [address] 85398- 0800 Jan, Right ankle pain M25.571 [place] [id number] [place] [address] 30066- 1403 Dec, Right ankle pain M25.571 [place] [id number] [place] [address] 30228- 3979 Dec, [place] [id number] [place] [address] 83534- 7202 Dec, [facility], [place] [id number] [place] [address] 67165- 2425 Dec, Right ankle pain M25.571 [facility] [place] [id number] [place] [address] 41339- 2816 Dec, Chronic skin ulcer with fat layer exposed L98.492 ; Type 2 diabetes mellitus with diabetic autonomic (poly)neuropathy E11.43 and Hypertension I10 [facility] [place] [id number] [place] [address] 02838- 7962 Nov, [facility] [place] [id number] [place] [address] 10816- 2281 Nov, [facility] [place] [id number] [place] [address] 66516- 0539 Nov, [place] [id number] [place] [address] 70205- 1115 Nov, Right ankle pain M25.571 and Chronic osteomyelitis of right foot with draining sinus M86.471 [place] [id number] [place] [address] 84895- 1767 Oct, Right ankle pain M25.571 [place] [id number] [place] [address] 72922- 0994 Oct, [facility] [place] [id number] [place] [address] 90850- 9328 Sep, Diabetes mellitus E11.9 [facility] [place] [id number] [place] [address] 82099- 8321 Sep, Diabetic polyneuropathy associated with type 2 diabetes mellitus E11.42 and Venous insufficiency I87.2 [facility] [place] [id number] [place] [address] 38133- 7326 Sep, Right ankle pain M25.571 [facility] [place] [id number] [place] [address] 19656- 5926 Aug, Right ankle pain M25.571 [facility] [place] [id number] [place] [address] 83081- 5828 Aug, Chronic osteomyelitis of right foot with draining sinus M86.471 [facility] [place] [id number] [place] [address] 94701- 1067 Aug, [facility] [place] [id number] [place] [address] 49367- 4230 Aug, [facility] [place] [id number] [place] [address] 12277- 3391 Aug, Chronic osteomyelitis of right foot with draining sinus M86.471 [facility] [place] [id number] [place] [address] 77144- 5399 Jul, [facility] [place] [id number] [place] [address] 87505- 9116 Jul, [facility] [place] [id number] [place] [address] 44895- 5107 Jul, Chronic kidney disease N18.9 [facility] [place] [id number] [place] [address] 91717- 4281 Jul, Right ankle pain M25.571 [facility] [place] [id number] [place] [address] 73039- 1013 Jul, Non-healing ulcer of right foot, unspecified ulcer stage L97.519 [facility] [place] [id number] [place] [address] 72764- 4911 Jul, Chronic skin ulcer with fat layer exposed L98.492 [facility] [place] [id number] [place] [address] 34907- 5435 Jul, Deformity of right ankle joint M21.961 [facility] [place] [id number] [place] [address] 57940- 2222 Jun, [facility], [place] [address] [place] [address]- 8811 Jun, Diabetes mellitus E11.9 ; Skin ulcer of right foot with fat layer exposed L97.512 and Encounter for immunization Z23 [facility], [place] [id number] [place] [address] 69988- 2039 Jun, Right ankle pain M25.571 [facility] [place] [id number] [place] [address] 44194- 4613 May, Right ankle pain M25.571 [place] [id number] [place] [address] 10126- 1590 Apr, Right ankle pain M25.571 [place] [address] 51924- 8601 Mar, Right ankle pain M25.571 [place] [address] 47944- 6405 Mar, [place] [address] 41456- 8809 February, Diabetes mellitus E11.9 and Diabetic polyneuropathy associated with type 2 diabetes mellitus E11.42 [place] [id number] [place] [address] 89004- 2960 February, Hyperkalemia E87.5 [place] [id number] [place] [address] 24502- 1582 February, Right ankle pain M25.571 [facility] [place] [id number] [place] [address] 44763- 8271 Jan, Right ankle pain M25.571 [place] [address] 28436- 8147 Dec, Right ankle pain M25.571 [facility] [place] [id number] [place] [address] 34853- 7668 Dec, Right ankle pain M25.571 [facility], [place] [address] [place] [address]- 0111 Nov, [facility] [place] [id number] [place] [address] 11755- 9735 Nov, Diabetes mellitus E11.9 ; Hypertension I10 ; Gastroparesis K31.84 and Type 2 diabetes mellitus with diabetic autonomic (poly)neuropathy E11.43 [place] [address] 12637- 4690 Nov, Right ankle pain M25.571 [facility] [place] [address] 47209- 1554 Oct, Right ankle pain M25.571 [facility] [place] [address] 51148- 7979 Oct, [place] [address] 17722- 4103 Oct, [facility] [place] [address] 46759- 4377 Sep, [facility] [place] [address] 17070- 0391 Sep, Hypertension I10 [place] [address] 63693- 0859 Sep, Chronic kidney disease N18.9 ; Right ankle pain M25.571 and GERD (gastroesophageal reflux disease) K21.9 [place] [id number] [place] [address] 11572- 7710 Jul, [facility] [place] [address] 37913- 8957 Jul, Encounter for immunization Z23 ; Venous insufficiency I87.2 and Diabetic polyneuropathy associated with type 2 diabetes mellitus E11.42 [facility] [place] [id number] [place] [address] 98457- 6934 Jul, [facility] [place] [address] 40401- 2859 Jul, Diabetes mellitus E11.9 [facility], [place] [address], [place] [address]- 7823 May, [facility] [place] [id number] [place] [address] 54742- 7576 Apr, [facility], [place] [address] [place] [address] 15277- 8030 Mar, Right ankle pain M25.571 [facility] [place] [id number] [place] [address] 60531- 4218 Mar, [facility] [place] [id number] [place] [address] 97046- 7345 February, Paresthesias R20.2 [facility] [place] [id number] [place] [address] 12077- 2602 February, [facility] [place] [id number] [place] [address] 50028- 3333 February, 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 [facility] [place] [id number] [place] [address] 86178- 6397 February, Diabetes mellitus E11.9 [facility] [place] [id number] [place] [address] 36445- 2736 February, [facility] [place] [address] [place] [address] 75506- 8191 February, Polyneuropathy in diabetes 357.2 and Paresthesias R20.2 [facility], [place] [address], [place] [address]- 8649 February, [facility] [place] [id number] [place] [address] 01570- 5834 February, [facility], [place] [address], [place] [address]- 3514 February, [facility] [place] [id number] [place] [address] 35834- 0264 February, Diabetes mellitus E11.9 [facility] [place] [id number] [place] [address] 11328- 1217 February, [facility] [place] [id number] [place] [address] 75410- 4141 February, Hyperkalemia E87.5 [facility] [place] [id number] [place] [address] 92872- 5073 Jan, Hypertension I10 [facility] [place] [address] 16097- 7842 Jan, Insomnia G47.00 [facility] [place] [address] 91477- 6379 Jan, [facility] [place] [id number] [place] [address] 65205- 2372 Jan, [facility] [place] [address] 27402- 6140 Jan, [facility] [place] [id number] [place] [address] 39634- 9387 Dec, Right ankle pain M25.571 [facility], [place] [id number] [place] [address] 61515- 1542 Dec, GERD (gastroesophageal reflux disease) K21.9 [facility] [place] [id number] [place] [address] 84853- 0631 Dec, Insomnia G47.00 [facility] [place] [id number] [place] [address] 87864- 9949 Dec, Hypertension I10 and Hyperkalemia 276.7 [facility], [place] [id number] [place] [address] 48138- 9064 Dec, Chronic kidney disease N18.9 [facility] [place] [id number] [place] [address] 36709- 3136 Dec, [facility] [place] [id number] [place] [address] 61635- 1245 Dec, Hyperkalemia E87.5 [facility], [place] [address] [place] [address] 90066- 4141 Dec, Chronic kidney disease N18.9 and Right ankle pain M25.571 [facility] [place] [id number] [place] [address] 37736- 9126 Nov, GERD (gastroesophageal reflux disease) K21.9 [facility] [place] [id number] [place] [address] 13250- 0274 Nov, Right ankle pain M25.571 [facility] [place] [id number] [place] [address] 94566- 3046 Nov, Diabetes mellitus E11.9 [facility] [place] [id number] [place] [address] 09112- 0206 Oct, [facility] [place] [id number] [place] [address] 79497- 3177 Oct, [facility] [place] [id number] [place] [address] 58129- 9398 Oct, [facility] [place] [id number] [place] [address] 24672- 2837 Oct, Hyperkalemia E87.5 [facility] [place] [address] [place] [address] 60080- 9714 Oct, [facility] [place] [id number] [place] [address] 67832- 2614 Oct, Hyperkalemia E87.5 [facility] [place] [address] [place] [address] 77837- 5783 Sep, [facility] [place] [id number] [place] [address] 81532- 3844 Sep, [facility] [place] [address], [place] [address]- 3844 Sep, [facility] [place] [address], [place] [address]- 2319 Sep, [facility] [place] [id number] [place] [address] 20070- 1026 Sep, Right ankle pain M25.571 [facility] [place] [id number] [place] [address] 30087- 3266 Aug, Chronic kidney disease N18.9 [facility] [place] [id number] [place] [address] 86504- 0171 Aug, [facility] [place] [id number] [place] [address] 28112- 2511 Aug, Hyperkalemia E87.5 [facility] [place] [id number] [place] [address] 98253- 5788 Aug, [facility] [place] [id number] [place] [address] 66364- 9100 Jul, [facility] [place] [id number] [place] [address] 54819- 3090 Jul, [facility] [place] [id number] [place] [address] 57353- 0030 Jul, [facility] [place] [address] [place] [address] 77236- 0983 Jul, Diabetes mellitus E11.9 ; Encounter for immunization Z23 ; Hypertension I10 and Hyperkalemia E87.5 [facility] [place] [id number] [address]- 0454 Jul, [facility] [place] [id number] [place] [address] 93339- 9338 Jul, Hyperkalemia E87.5 [facility] [place] [id number] [place] [address] 99137- 2542 Jul, Hyperkalemia E87.5 [facility] [place] [id number] [place] [address] 42959- 2549 Jun, [facility] [place] [facility] [address] [id number] [place] [address]- 8296 Jun, [facility] [place] [facility] [address] [id number] [place] [address]- 9726 15 Jun, 2015 [facility] [place] [facility] [address] [id number] [place] [address]- 3096 Jun, [facility] [place] [facility] [address] [id number] [place] [address]- 3475 May, [facility] [place] [facility] [address] [id number] [place] [address]- 1903 May, [facility] [place] [facility] [address] [id number] [place] [address]- 7454 May, [facility] [place] [facility] [address] [id number] [place] [address]- 1533 May, Hyperkalemia 276.7 [facility] [place] [facility] [address] [id number] [place] [address]- 2540 May, [facility] [place] [facility] [address] [facility] [id number] [place] [address]- 2828 Apr, Hyperkalemia 276.7 [facility] [place] [facility] [address] [facility] [id number] [place] [address]- 7810 Apr, [facility] [place] [facility] [address] [facility] [id number] [place] [address] 2546 Apr, [facility] [place] [facility] [address] [id number] [place] [address] 2548 Apr, [facility] [place] [facility] [address] [id number] [place] [address]- 0104 Apr, [facility] [place] [facility] [address] [facility] [id number] [place] [address]- 2546 Apr, Hyperkalemia 276.7 [facility] [place] [facility] [address] [facility] [id number] [place] [address]- 5308 Apr, [facility] [place] [id number] [place] [address]- 0347 Apr, [facility] [place] [address], [place] [address]- 3806 Mar, [facility] [place] [address], [place] [address]- 6966 Mar, Hyperkalemia 276.7 [facility] [place] [address] [address] 2542 Mar, Hyperkalemia 276.7 [facility] [place] [address] [place] [address]- 0539 Mar, [facility] [place] [address], [place] [address]- 4823 Mar, [facility] [place] [address] [place] [address]- 3441 Mar, [facility] [place] [address] [place] [address] Mar, [facility] [place] [id number], [place] [address] Mar, Anserine bursitis 726.61 [facility], [place] [id number], [place] [address] Mar, Asthma 493.90 and Hyperkalemia 276.7 [facility], [place] [id number], [place] [address] Mar, [facility], [place] [id number], [place] [address] February, [facility], [place] [id number], [place] [address] February, [facility], [place] [id number] [address] February, [facility], [place] [id number] [place] [address] February, [facility] [address] [id number] [place] [address] February, [facility] [place] [facility] [address] [id number] [place] [address] February, [facility] [address] [id number] [place] [address] February, [facility] [address] [id number] [place] [address] February, [facility] [address] [id number] [place] [address] February, [facility] [address] [id number] [place] [address] Jan, [facility] [address] [id number] [place] [address] Jan, [facility] [address] [id number] [place] [address] Dec, [facility] [place] [facility] [address] [id number] [place] [address] Dec, [facility] [address] [id number] [place] [address] Dec, [facility] [place] [facility] [address] [id number] [place] [address] Dec, [facility] [place] [facility] [address] [id number] [place] [address] Dec, [facility] [place] [facility] [address] [id number] [place] [address] Dec, [facility] [place] [facility] [address] [id number] [place] [address] Dec, [facility] [place] [facility] [address] [id number] [place] [address] Dec, [facility] [place] [facility] [address] [id number] [place] [address] Dec, [facility] [place] [facility] [address] [id number] [place] [address]- [address] Dec, [facility] [place] [facility] [address] [id number] [place] [address] Dec, [facility] [place] [facility] [address] [id number] [place] [address] Dec, [facility] [place] [facility] [address] [id number] [place] [address] Dec, [facility] [place] [facility] [address] [id number] [place] [address]- [address] Dec, [facility] [place] [facility] [address] [id number] [place] [address] Nov, [facility] [place] [facility] [address] [id number] [place] [address] Nov, [facility] [place] [facility] [address] [id number] [place] [address]- [address] Nov, [facility] [place] [facility] [address] [id number] [place] [address] Nov, [facility] [place] [facility] [address] [id number] [place] [address] Nov, [facility] [place] [facility] [address] [id number] [place] [address] Nov, [facility] [place] [facility] [address] [id number] [place] [address] Oct, [facility] [place] [facility] [address] [id number] [place] [address] Oct, [facility] [place] [facility] [address] [id number] [place] [address] Oct, [facility] [place] [facility] [address] [id number] [place] [address] 13 Oct, 2014 [facility] [address] [id number] [place] [address] Oct, [facility] [place] [facility] [address] [id number] [place] [address] Oct, [facility] [address] [id number] [place] [address] Sep, [facility] [place] [facility] [address] [id number] [place] [address] 30 Sep, 2014 [facility] [address] [id number] [place] [address] Sep, [facility] [place] [facility] [address] [id number] [place] [address] Sep, [facility] [place] [facility] [address] [id number] [place] [address] Sep, [facility] [place] [facility] [address] [id number] [place] [address] Sep, [facility] [place] [facility] [address] [id number] [place] [address] Aug, [facility] [address] [id number] [place] [address] Aug, [facility] [place] [facility] [address] [id number] [place] [address] Aug, [facility] [place] [facility] [address] [id number] [place] [address] Aug, [facility] [place] [facility] [address] [id number] [place] [address] Aug, [facility] [place] [facility] [address] [id number] [place] [address] Aug, [facility] [place] [facility] [address] [id number] [place] [address] Jul, [facility] [place] [facility] [address] [id number] [place] [address] Jul, [facility] [place] [facility] [address] [id number] [place] [address] Jul, [facility] [place] [facility] [address] [id number] [place] [address] Jul, [facility] [place] [facility] [address] [id number] [place] [address] Jul, [facility] [place] [facility] [address] [id number] [place] [address] Jul, [facility] [place] [facility] [address] [id number] [place] [address] Jul, [facility] [place] [facility] [address] [id number] [place] [address] Jul, [facility] [place] [facility] [address] [id number] [place] [address] Jul, [facility] [place] [facility] [address] [id number] [place] [address]- [address] Jul, [facility] [place] [facility] [address] [id number], [place] [address] Jul, [facility] [place] [facility] [address] [id number], [place] [address] Jun, [facility] [place] [facility] [address] [id number], [place] [address] Jun, [facility] [place] [facility] [address] [id number] [place] [address] Jun, [facility] [place] [facility] [address] [id number] [place] [address] Jun, [facility] [place] [facility] [address] [id number], [place] [address] Apr, [facility] [place] [facility] [address] [id number], [place] [address] Apr, [facility] [place] [address] [facility] [id number], [place] [address] Apr, [facility] [place] [address] [facility] [id number], [place] [address] Apr, [facility] [place] [address] [facility] [id number], [place] [address] Mar, [facility] [place] [address] [facility] [id number], [place] [address] Mar, [facility] [place] [address] [facility] [id number], [place] [address] Mar, [facility] [place] [id number], [place] [address] Mar, [facility] [place] [id number], [place] [address] Mar, [facility] [place] [id number], [place] [address] Sep, [facility] [place] [address] [id number], [place] [address] Sep, [facility] [place] [address] [id number], [place] [address] Aug, IMMUNIZATIONS No Known Immunizations SOCIAL HISTORY Never Assessed REASON FOR VISIT Controlled Med Refill PLAN OF CARE VITAL SIGNS MEDICATIONS Medication Instructions Dosage Frequency Start Date End Date Duration Status Oxycodone HCl 5 mg Orally every 6 hrs 1 tablet as needed 6h Apr, 28 days Active RESULTS No Results PROCEDURES No Known procedures INSTRUCTIONS MEDICATIONS ADMINISTERED No Known Medications MEDICAL (GENERAL) HISTORY Type Description Date Medical History osteoporosis Medical History hyperkalemia- resolved Medical History dailysis Surgical History right leg/ankle surgery x 11 Surgical History cholecystecomy Surgical History C section x 2 Surgical History malignant melanoma off of back Surgical History carpal tunnel x 3 Surgical History left rotator cuff repair Surgical History temporary port on right side Hospitalization History surgeries Hospitalization History B/p Hospitalization History [facility], was there for 4 day at oct 2016
--- OUTSIDE RECORDS SUMMARY | 2018-07-12 09:10 | XMS REPORT ---
Author Author SERGIO HANCOCK Organization [facility] Address [address] [place] [address] Care Team Providers Care Executive Team Leader Name Role Phone SERGIO HANCOCK Unavailable PROBLEMS Type Condition ICD9-CM Code KQA06-CY Code Onset Dates Condition Status SNOMED Code Problem GERD (gastroesophageal reflux disease) K21.9 Active 669957790 Problem Type 2 diabetes mellitus with diabetic autonomic (poly)neuropathy E11.43 Active 073469128 Problem Gastroparesis K31.84 Active 553034202 Problem Unsteady gait R26.81 Active 32765898 Problem Pressure ulcer of unspecified heel, stage 4 L89.604 Active 698114681 Problem Chronic osteomyelitis of right foot with draining sinus M86.471 Active [id number] Problem Chronic skin ulcer with fat layer exposed L98.492 Active 17178970 Problem Non-pressure chronic ulcer of right heel and midfoot with unspecified severity L97.419 Active 342790446 Problem Type 2 diabetes mellitus with foot ulcer E11.621 Active 91282953753601 Problem Chronic kidney disease N18.9 Active 054246337 Problem Paresthesias R20.2 Active 64802638 Problem Hypertension I10 Active 07766766 Problem Diabetic polyneuropathy associated with type 2 diabetes mellitus E11.42 Active 56074498 Problem Diabetes mellitus E11.9 Active 54996777 Problem Venous insufficiency I87.2 Active 55527642 ALLERGIES Substance Reaction Event Type Date Status Sulfacetamide Sodium Unknown Drug Allergy Apr, Active Plavix caused bleeding Drug Allergy Apr, Active Neurontin Makes her disoriented Drug Allergy Apr, Active Lyrica dizziness Drug Allergy Apr, Active ENCOUNTERS Encounter Location Date Diagnosis [facility] [address] [facility] [id number] [address] Jun, [facility] [address] [facility] [id number] [address] Jun, [facility] [place] [id number] [place] [address] 07051- 7116 May, [facility] [place] [address] 03850- 9901 May, Chronic skin ulcer with fat layer exposed L98.492 [place] [address] 40832- 6350 Apr, [facility] [place] [address] 26760- 9353 Apr, Type 2 diabetes mellitus with foot ulcer E11.621 and Unsteady gait R26.81 [place] [address] 91552- 7091 Mar, Decubitus ulcer of right heel, stage 3 L89.613 [place] [address] 26303- 2809 Mar, [place] [address] 24893- 8444 Mar, Pressure ulcer of unspecified heel, stage 4 L89.604 and Type 2 diabetes mellitus with foot ulcer E11.621 [place] [id number] [place] [address] 71945- 5080 Mar, Encounter for medication monitoring Z51.81 [place] [id number] [place] [address] 23337- 4400 Mar, Type 2 diabetes mellitus with foot ulcer E11.621 and Non- pressure chronic ulcer of right heel and midfoot with unspecified severity L97.419 [place] [id number] [place] [address] 05858- 6848 February, [place] [address] 53282- 3840 Jan, Right ankle pain M25.571 [place] [id number] [place] [address] 69816- 0509 Dec, Right ankle pain M25.571 [facility] [id number] [place] [address] 39997- 0282 Dec, [facility] [id number] [place] [address] 26496- 2035 Dec, [facility] [id number] [place] [address] 22753- 3897 Dec, Right ankle pain M25.571 [facility] [id number] [place] [address] 77236- 2895 Dec, Chronic skin ulcer with fat layer exposed L98.492 ; Type 2 diabetes mellitus with diabetic autonomic (poly)neuropathy E11.43 and Hypertension I10 [facility] [id number] [place] [address] 17968- 3624 Nov, [facility] [id number] [place] [address] 23945- 8998 Nov, [facility] [id number] [place] [address] 73635- 0021 Nov, [facility] [id number] [place] [address] 93487- 0100 Nov, Right ankle pain M25.571 and Chronic osteomyelitis of right foot with draining sinus M86.471 [facility] [id number] [place] [address] 44525- 1867 Oct, Right ankle pain M25.571 [facility] [id number] [place] [address] 06419- 6296 Oct, [facility] [id number] [place] [address] 09374- 8862 Sep, Diabetes mellitus E11.9 [facility] [id number] [place] [address] 75640- 4375 Sep, Diabetic polyneuropathy associated with type 2 diabetes mellitus E11.42 and Venous insufficiency I87.2 [facility] [id number] [place] [address] 83305- 2132 Sep, Right ankle pain M25.571 [facility] [id number] [place] [address] 43594- 8786 Aug, Right ankle pain M25.571 [facility] [id number] [place] [address] 32106- 2805 Aug, Chronic osteomyelitis of right foot with draining sinus M86.471 [facility] [id number] [place] [address] 19996- 4644 Aug, [facility] [id number] [place] [address] 39815- 6971 Aug, [facility] [id number] [place] [address] 88757- 6865 Aug, Chronic osteomyelitis of right foot with draining sinus M86.471 [facility] [id number] [place] [address] 69573- 6204 Jul, [facility] [id number] [place] [address] 12368- 2537 Jul, [facility] [id number] [place] [address] 18572- 9489 Jul, Chronic kidney disease N18.9 [facility] [id number] [place] [address] 19009- 6261 Jul, Right ankle pain M25.571 [facility] [id number] [place] [address] 10361- 0664 Jul, Non-healing ulcer of right foot, unspecified ulcer stage L97.519 [facility] [id number] [place] [address] 30946- 7624 Jul, Chronic skin ulcer with fat layer exposed L98.492 [facility] [id number] [place] [address] 48064- 8697 Jul, Deformity of right ankle joint M21.961 [facility] [id number] [place] [address] 45160- 0642 27 Jun, 2017 [facility] [id number] [place] [address] 17231- 0324 21 Jun, 2017 Diabetes mellitus E11.9 ; Skin ulcer of right foot with fat layer exposed L97.512 and Encounter for immunization Z23 [place] [id number] [place] [address] 66619- 3969 18 Jun, 2017 Right ankle pain M25.571 [place] [id number] [place] [address] 40095- 8544 May, Right ankle pain M25.571 [place] [id number] [place] [address] 08314- 9521 Apr, Right ankle pain M25.571 [place] [id number] [place] [address] 99571- 1074 Mar, Right ankle pain M25.571 [place] [id number] [place] [address] 95399- 8969 Mar, [place] [id number] [place] [address] 33126- 8719 February, Diabetes mellitus E11.9 and Diabetic polyneuropathy associated with type 2 diabetes mellitus E11.42 [place] [id number] [place] [address] 05909- 7390 February, Hyperkalemia E87.5 [place] [id number] [place] [address] 18504- 2753 February, Right ankle pain M25.571 [place] [id number] [place] [address] 26280- 7974 Jan, Right ankle pain M25.571 [place] [id number] [place] [address] 48526- 8717 Dec, Right ankle pain M25.571 [place] [id number] [place] [address] 19401- 5489 Dec, Right ankle pain M25.571 [facility] [address] 76279- 7660 Nov, [place] [id number] [place] [address] 60772- 0418 Nov, Diabetes mellitus E11.9 ; Hypertension I10 ; Gastroparesis K31.84 and Type 2 diabetes mellitus with diabetic autonomic (poly)neuropathy E11.43 [place] [id number] [place] [address] 26870- 9991 Nov, Right ankle pain M25.571 [place] [id number] [place] [address] 40148- 6256 Oct, Right ankle pain M25.571 [place] [address] 46855- 1923 Oct, [facility] [id number] [place] [address] 94718- 6145 Oct, [place] [id number] [place] [address] 05318- 0673 Sep, [place] [id number] [place] [address] 91644- 5994 Sep, Hypertension I10 [place] [id number] [place] [address] 22106- 4480 Sep, Chronic kidney disease N18.9 ; Right ankle pain M25.571 and GERD (gastroesophageal reflux disease) K21.9 [place] [id number] [place] [address] 50632- 0310 Jul, [place] [id number] [place] [address] 20545- 4936 Jul, Encounter for immunization Z23 ; Venous insufficiency I87.2 and Diabetic polyneuropathy associated with type 2 diabetes mellitus E11.42 [place] [address] [address]- 7389 Jul, [facility] [id number] [place] [address] 84630- 6691 Jul, Diabetes mellitus E11.9 [facility] [address] [address]- 2322 May, [facility] [id number] [place] [address] 50572- 8097 Apr, [facility] [id number] [place] [address] 52593- 7003 Mar, Right ankle pain M25.571 [facility] [id number] [place] [address] 37297- 9012 Mar, [facility] [id number] [place] [address] 11930- 8576 February, Paresthesias R20.2 [facility] [address] [address]- 3697 February, [facility] [id number] [place] [address] 64445- 2779 February, 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 [facility] [address] [address]- 9471 February, Diabetes mellitus E11.9 [facility] [address] [address]- 6798 February, [facility] [address] [address]- 6650 February, Polyneuropathy in diabetes 357.2 and Paresthesias R20.2 [facility] [address] [address]- 0702 February, [facility] [address] [address]- 4591 February, [facility] [id number] [address]- 0570 February, [facility] [id number] [place] [address] 99899- 9049 February, Diabetes mellitus E11.9 [facility] [id number] [place] [address] 94787- 7550 February, [facility] [id number] [place] [address] 08040- 9507 February, Hyperkalemia E87.5 [facility] [id number] [place] [address] 19733- 8386 Jan, Hypertension I10 [facility] [id number] [place] [address] 56211- 5131 Jan, Insomnia G47.00 [facility] [id number] [place] [address] 88908- 2173 Jan, [facility] [id number] [place] [address] 45975- 2399 Jan, [facility] [id number] [place] [address] 39766- 5427 Jan, [facility] [id number] [place] [address] 23081- 2373 Dec, Right ankle pain M25.571 [facility] [id number] [place] [address] 12383- 6761 Dec, GERD (gastroesophageal reflux disease) K21.9 [facility] [id number] [place] [address] 23965- 2765 Dec, Insomnia G47.00 [facility] [id number] [place] [address] 37527- 2547 Dec, Hypertension I10 and Hyperkalemia 276.7 [facility] [id number] [place] [address] 02078- 2547 Dec, Chronic kidney disease N18.9 [facility] [id number] [place] [address] 86165- 8897 Dec, [facility] [id number] [place] [address] 65366- 0153 Dec, Hyperkalemia E87.5 [facility] [id number] [place] [address] 62703- 0596 Dec, Chronic kidney disease N18.9 and Right ankle pain M25.571 [facility] [id number] [place] [address] 98162- 4402 Nov, GERD (gastroesophageal reflux disease) K21.9 [facility] [id number] [place] [address] 60808- 4310 Nov, Right ankle pain M25.571 [facility] [id number] [place] [address] 00902- 5615 Nov, Diabetes mellitus E11.9 [facility] [id number] [place] [address] 87387- 2778 Oct, [facility] [id number] [place] [address] 22060- 8970 Oct, [facility] [id number] [place] [address] 70573- 3794 Oct, [facility] [id number] [place] [address] 72217- 9471 Oct, Hyperkalemia E87.5 [facility] [id number] [place] [address] 62270- 3709 Oct, [facility] [id number] [place] [address] 06760- 9380 Oct, Hyperkalemia E87.5 [facility] [id number] [place] [address] 70453- 2786 Sep, [facility] [id number] [place] [address] 49590- 1973 14 Sep, 2015 [facility] [address] [address]- 7372 Sep, [facility] [id number] [place] [address] 906648- 1983 Sep, [facility] [id number] [place] [address] 69743- 5381 Sep, Right ankle pain M25.571 [facility] [id number] [place] [address] 47512- 7522 Aug, Chronic kidney disease N18.9 [facility] [id number] [place] [address] 56720- 5283 Aug, [facility] [id number] [place] [address] 56303- 1060 Aug, Hyperkalemia E87.5 [facility] [id number] [place] [address] 47367- 6524 Aug, [facility] [id number] [place] [address] 64990- 7830 Jul, [facility] [id number] [place] [address] 53086- 3730 Jul, [facility] [id number] [place] [address] 90772- 3447 Jul, [facility] [id number] [place] [address] 65152- 3123 Jul, Diabetes mellitus E11.9 ; Encounter for immunization Z23 ; Hypertension I10 and Hyperkalemia E87.5 [facility] [id number] [place] [address] 34013- 4658 Jul, [facility] [id number] [place] [address] 58444- 1961 Jul, Hyperkalemia E87.5 [facility] [id number] [place] [address] 28014- 9982 Jul, Hyperkalemia E87.5 [facility] [address] [id number] [place] [address]- 8256 Jun, [facility] [place] [facility] [address] [id number] [place] [address] 2546 Jun, [facility] [address] [id number] [place] [address]- 8447 Jun, [facility] [place] [facility] [address] [id number] [place] [address]- 4576 Jun, [facility] [place] [facility] [address] [id number] [place] [address]- 2723 May, [facility] [place] [facility] [address] [id number] [place] [address]- 9029 May, [facility] [place] [facility] [address] [id number] [place] [address]- 3992 May, [facility] [address] [id number] [place] [address]- 9864 May, Hyperkalemia 276.7 [facility] [place] [facility] [id number] [place] [address]- 6436 May, [facility] [place] [facility] [address] [facility] [place] [id number] [place] [address]- 8083 Apr, Hyperkalemia 276.7 [facility] [place] [facility] [address] [id number] [address]- 8024 Apr, [facility] [place] [facility] [address] [id number] [place] [address]- 4523 Apr, [facility] [place] [facility] [address] [facility] [place] [id number] [place] [address]- 2540 Apr, [facility] [place] [facility] [address] [facility] [place] [id number] [place] [address]- 2549 Apr, [facility] [place] [facility] [address] 8892 Apr, Hyperkalemia 276.7 [facility] [address] [address]- 4726 Apr, [facility] [address] [address]- 2546 Apr, [facility] [address] [address]- 0845 Mar, [facility] [id number] [address]- 0925 Mar, Hyperkalemia 276.7 [facility] [id number] [place] [address] 87079- 4040 Mar, Hyperkalemia 276.7 [facility] [id number] [address] Mar, [facility] [id number] [address] Mar, [facility] [id number] [address] Mar, [facility] [id number] [address] Mar, [facility] [id number] [address] Mar, Anserine bursitis 726.61 [facility] [id number] [address] Mar, Asthma 493.90 and Hyperkalemia 276.7 [facility] [id number] [address] 2540 Mar, [facility] [id number], [place] [address] February, [facility] [id number] [address] February, [facility] [place] [facility] [address] [id number] [place] [address] February, [facility] [place] [facility] [address] [id number] [place] [address] February, [facility] [place] [facility] [address] [id number] [place] [address] February, [facility] [place] [facility] [address] [id number] [place] [address] February, [facility] [place] [facility] [address] [id number] [place] [address] February, [facility] [place] [facility] [address] [id number] [place] [address]- [address] February, [facility] [place] [facility] [address] [id number] [place] [address]- [address] February, [facility] [place] [facility] [address] [id number] [place] [address]- [address] Jan, [facility] [place] [facility] [address] [id number] [place] [address] Jan, [facility] [place] [facility] [address] [id number] [place] [address] Dec, [facility] [place] [facility] [address] [id number] [place] [address] Dec, [facility] [place] [facility] [address] [id number] [address] Dec, [facility] [place] [facility] [address] [id number] [place] [address]- [address]47 Dec, [facility] [place] [facility] [address] [id number] [place] [address]- [address] Dec, [facility] [place] [facility] [address] [id number] [place] [address] Dec, [facility] [place] [facility] [address] [id number] [place] [address]- [address] Dec, [facility] [place] [facility] [address] [id number] [place] [address]- [address] Dec, [facility] [place] [facility] [address] [id number] [place] [address] Dec, [facility] [place] [facility] [address] [id number] [place] [address] Dec, [facility] [place] [facility] [address] [id number] [place] [address] Dec, [facility] [place] [facility] [address] [id number] [place] [address]- [address] Dec, [facility] [place] [facility] [address] [id number] [place] [address]- [address] Dec, [facility] [place] [facility] [address] [id number] [place] [address]- [address]398 Dec, [facility] [place] [facility] [address] [id number] [place] [address] Nov, [facility] [place] [facility] [address] [id number] [place] [address]- [address] Nov, [facility] [place] [facility] [address] [id number] [place] [address]- [address] Nov, [facility] [place] [facility] [address] [id number] [place] [address]- 79[address] Nov, [facility] [place] [facility] [address] [id number] [place] [address]- [address] Nov, [facility] [place] [facility] [address] [id number] [place] [address] Nov, [facility] [place] [facility] [address] [id number] [place] [address] Oct, [facility] [place] [facility] [address] [id number] [place] [address] Oct, [facility] [place] [facility] [address] [id number] [place] [address] Oct, [facility] [place] [facility] [address] [id number] [place] [address] Oct, [facility] [place] [facility] [address] [id number] [place] [address] Oct, [facility] [place] [facility] [address] [id number] [place] [address] Oct, [facility] [place] [facility] [address] [id number] [place] [address] Sep, [facility] [place] [facility] [address] [id number] [place] [address] Sep, [facility] [place] [facility] [address] [id number] [place] [address] Sep, [facility] [place] [facility] [address] [id number] [place] [address] Sep, [facility] [place] [facility] [address] [id number] [place] [address] Sep, [facility] [place] [facility] [address] [id number] [place] [address] Sep, [facility] [place] [facility] [address] [id number] [place] [address] Aug, [facility] [place] [facility] [address] [id number] [place] [address] Aug, [facility] [place] [facility] [address] [id number] [place] [address] Aug, [facility] [place] [facility] [address] [id number] [place] [address] Aug, [facility] [place] [facility] [address] [id number] [place] [address] Aug, [facility] [place] [facility] [address] [id number] [place] [address] Aug, [facility] [place] [facility] [address] [id number] [place] [address] Jul, [facility] [place] [facility] [address] [id number] [place] [address] Jul, [facility] [place] [facility] [address] [id number] [place] [address] Jul, [facility] [place] [facility] [address] [id number] [place] [address] Jul, [facility] [place] [facility] [address] [id number] [place] [address] Jul, [facility] [place] [facility] [address] [id number] [place] [address] Jul, [facility] [place] [facility] [address] [id number] [place] [address] Jul, [facility] [place] [facility] [address] [id number] [place] [address] Jul, [facility] [place] [facility] [address] [id number] [place] [address] Jul, [facility] [place] [facility] [address] [facility] [place] [id number] [place] [address] Jul, [facility] [place] [facility] [address] [id number] [place] [address] Jul, [facility] [place] [facility] [address] [id number] [place] [address] Jun, [facility] [place] [facility] [address] [id number] [place] [address] Jun, [facility] [place] [facility] [address] [id number] [place] [address] Jun, [facility] [place] [facility] [address] [id number] [place] [address] Jun2013 [facility] [place] [facility] [address] [facility] [id number] [address] Apr, 2013 [facility] [address] [facility] [id number] [address] Apr, [facility] [address] [facility] [place] [id number], [place] [address] Apr, [facility] [address] [facility] [id number] [address] Apr, [facility] [address] [facility] [place] [id number][place] [address] Mar, [facility] [id number] [address] Mar, [facility] [id number], [place] [address] Mar, [facility] [id number], [place] [address] Mar, [facility] [id number], [place] [address] Mar, [facility] [address] [id number] [address] Sep, [facility] [address] [id number] [address] Sep, [facility] [address] [id number] [address] [address] Aug, IMMUNIZATIONS No Known Immunizations SOCIAL HISTORY Never Assessed REASON FOR VISIT Wound, PTs notes it has been getting better-Andrés JAVIER PLAN OF CARE Activity Details Follow Up 4 Weeks Reason:heel wound VITAL SIGNS Height 62 in 2018-05-13 Weight 153.3 lbs 2018-05-13 Temperature 98.1 degrees Fahrenheit 2018-05-13 Heart Rate 76 bpm 2018-05-13 Respiratory Rate 20 2018-05-13 Oximetry 97 % 2018-05-13 BMI 28.04 kg/m2 2018-05-13 Blood pressure systolic 120 mmHg 2018-05-13 Blood pressure diastolic 60 mmHg 2018-05-13 MEDICATIONS Medication Instructions Dosage Frequency Start Date End Date Duration Status Diabetic Shoes wear with ambulation Sep, Active Calcium Acetate (Phos Binder) 667 MG Orally Three times a day 2 tablets with meals 8h Active Glucometer ... subcutaneously one time Accu-check Nov, Active Furosemide 40 mg Orally Once a day 2 tablet 24h 30 Active Wheelchair DX Non-healing right ankle fracture Jul, Active Vitamin D 2000 UNIT Orally Once a day 5000 units 24h Active Reglan 10 mg Orally 4 times a day, ac and hs 1 Nov, Not- Taking Levemir FlexTouch 100 unit/mL (3 mL) Subcutaneous Once a day 10 Units 24h Jul, Active BD Insulin Syringe MicroFine 28G X 1/2 use with insulin 8h Jul, Active Amitriptyline HCl 25 MG TAKE ONE TO THREE TABLETS BY MOUTH AT BEDTIME NEEDED 30 Active Silvadene 1 % Externally Once a day 1 application to affected area 24h Apr, Active NovoFine 32 gauge USE WITH INSULIN PENS THREE TIMES A DAY 30 Active Zofran ODT 4 MG Orally every 8 hrs 1 tablet 8h 10 Active Cinnamon 500 mg Orally Once a day 4 capsules 24h Active Levemir FlexTouch 100 UNIT/ML INJECT 10 UNITS SUBCUTANEOUSLY ONCE DAILY 140 Not-Taking MiraLax - Orally Once a day take 17 g mixed with 8 oz. water or juice by Oral route 1 time per day 24h Aug, Active Amlodipine Besylate 10 MG TAKE ONE TABLET BY MOUTH ONCE DAILY 30 Active Blood Glucose Test Test Strips subcutaneously 3 times a day check blood sugar 8h Nov, Active Pantoprazole Sodium 40 MG TAKE ONE TABLET BY MOUTH ONCE DAILY 30 Active ProAir HFA 108 (90 Base) MCG/ACT Inhalation every 4 hrs 2 puffs as needed 4h Mar, Not-Taking Atenolol 25 MG TAKE TWO TABLETS BY MOUTH ONCE DAILY 30 Active Marie Contour Next Test - TEST BLOOD SUGAR THREE TIMES A DAY E11.9 30 Active Diabetic Shoes wear with ambulation Sep, Not-Taking Stool Softener Active Oxycodone HCl 5 mg Orally every 6 [...]
--- OUTSIDE RECORDS SUMMARY | 2018-07-12 09:11 | XMS REPORT ---
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 Name Role Phone OLYA WILLIS Unavailable PROBLEMS Type Condition ICD9-CM Code CIN12-UN Code Onset Dates Condition Status SNOMED Code Problem GERD (gastroesophageal reflux disease) K21.9 Active 571382719 Problem Type 2 diabetes mellitus with diabetic autonomic (poly)neuropathy E11.43 Active 954422505 Problem Gastroparesis K31.84 Active 018869890 Problem Unsteady gait R26.81 Active 35437239 Problem Pressure ulcer of unspecified heel, stage 4 L89.604 Active 723916163 Problem Chronic osteomyelitis of right foot with draining sinus M86.471 Active [id number] Problem Chronic skin ulcer with fat layer exposed L98.492 Active 75377751 Problem Non-pressure chronic ulcer of right heel and midfoot with unspecified severity L97.419 Active 683178066 Problem Type 2 diabetes mellitus with foot ulcer E11.621 Active 87572833806744 Problem Chronic kidney disease N18.9 Active 370005122 Problem Paresthesias R20.2 Active 53974841 Problem Hypertension I10 Active 35862551 Problem Diabetic polyneuropathy associated with type 2 diabetes mellitus E11.42 Active 00533781 Problem Diabetes mellitus E11.9 Active 03452491 Problem Venous insufficiency I87.2 Active 79684510 ALLERGIES No Information ENCOUNTERS Encounter Location Date Diagnosis [facility] [address] [facility] [id number] [address] Jun, [facility] [address], [place] [address] 9688 Jun, [facility] [id number] [address] 4423 May, [facility] [address] [place] [address] 67184- 3550 May, Chronic skin ulcer with fat layer exposed L98.492 [facility] [id number] [place] [address] 90115- 1505 Apr, [facility] [id number] [place] [address] 93474- 8080 Apr, Type 2 diabetes mellitus with foot ulcer E11.621 and Unsteady gait R26.81 [facility] [id number] [place] [address] 15071- 5156 Mar, Decubitus ulcer of right heel, stage 3 L89.613 [facility] [address] 44233- 2129 Mar, [facility] [id number] [place] [address] 39137- 5451 Mar, Pressure ulcer of unspecified heel, stage 4 L89.604 and Type 2 diabetes mellitus with foot ulcer E11.621 [facility] [id number] [place] [address] 21197- 8665 Mar, Encounter for medication monitoring Z51.81 [facility] [id number] [place] [address] 96802- 7647 Mar, Type 2 diabetes mellitus with foot ulcer E11.621 and Non- pressure chronic ulcer of right heel and midfoot with unspecified severity L97.419 [facility] [id number] [place] [address] 43184- 1062 February, [facility] [id number] [place] [address] 94971- 5361 Jan, Right ankle pain M25.571 [facility] [id number] [place] [address] 51032- 4496 Dec, Right ankle pain M25.571 [facility] [id number] [place] [address] 90671- 9723 Dec, [facility] [id number] [place] [address] 26901- 7605 Dec, [facility] [id number] [place] [address] 80946- 3014 Dec, Right ankle pain M25.571 [facility] [id number] [place] [address] 20689- 2980 Dec, Chronic skin ulcer with fat layer exposed L98.492 ; Type 2 diabetes mellitus with diabetic autonomic (poly)neuropathy E11.43 and Hypertension I10 [facility] [id number] [place] [address] 68953- 3353 Nov, [facility] [id number] [place] [address] 36552- 8533 Nov, [facility] [id number] [place] [address] 95604- 7136 Nov, [facility] [id number] [place] [address] 60592- 8690 Nov, Right ankle pain M25.571 and Chronic osteomyelitis of right foot with draining sinus M86.471 [facility] [facility] [id number] [place] [address] 64198- 1975 Oct, Right ankle pain M25.571 [facility] [facility] [id number] [place] [address] 74433- 0301 Oct, [facility] [id number] [place] [address] 14585- 4066 Sep, Diabetes mellitus E11.9 [facility] [id number] [place] [address] 14723- 7071 Sep, Diabetic polyneuropathy associated with type 2 diabetes mellitus E11.42 and Venous insufficiency I87.2 [facility] [id number] [place] [address] 28186- 1967 Sep, Right ankle pain M25.571 [facility] [id number] [place] [address] 28084- 2696 Aug, Right ankle pain M25.571 [facility] [id number] [place] [address] 15838- 1055 Aug, Chronic osteomyelitis of right foot with draining sinus M86.471 [facility] [id number] [place] [address] 86434- 0986 Aug, [facility] [id number] [place] [address] 63465- 7673 Aug, [facility] [id number] [place] [address] 55088- 3982 Aug, Chronic osteomyelitis of right foot with draining sinus M86.471 [facility] [id number] [place] [address] 63258- 5537 Jul, [facility] [id number] [place] [address] 56523- 6272 Jul, [facility] [id number] [place] [address] 09323- 7590 Jul, Chronic kidney disease N18.9 [facility] [id number] [place] [address] 10122- 8415 Jul, Right ankle pain M25.571 [facility] [id number] [place] [address] 80902- 7980 Jul, Non-healing ulcer of right foot, unspecified ulcer stage L97.519 [facility] [id number] [place] [address] 28380- 6329 Jul, Chronic skin ulcer with fat layer exposed L98.492 [facility] [id number] [place] [address] 56121- 8801 Jul, Deformity of right ankle joint M21.961 [facility] [id number] [place] [address] 17695- 7877 Jun, [facility] [address] [place] [address]- 6534 Jun, Diabetes mellitus E11.9 ; Skin ulcer of right foot with fat layer exposed L97.512 and Encounter for immunization Z23 [facility] [id number] [place] [address] 82214- 4307 Jun, Right ankle pain M25.571 [facility] [id number] [place] [address] 88086- 7492 May, Right ankle pain M25.571 [facility] [facility] [id number] [place] [address] 42162- 0010 Apr, Right ankle pain M25.571 [place] [facility] [address] 00443- 9402 Mar, Right ankle pain M25.571 [place] [address] 73478- 4210 Mar, [facility] [facility] [address] 71623- 7366 February, Diabetes mellitus E11.9 and Diabetic polyneuropathy associated with type 2 diabetes mellitus E11.42 [facility] [id number] [place] [address] 30062- 8495 February, Hyperkalemia E87.5 [place] [facility] [id number] [place] [address] 23773- 8031 February, Right ankle pain M25.571 [facility] [id number] [place] [address] 64006- 9720 Jan, Right ankle pain M25.571 [place] [address] 43037- 3219 Dec, Right ankle pain M25.571 [facility] [id number] [place] [address] 77160- 1364 Dec, Right ankle pain M25.571 [facility] [address] [place] [address]- 6465 Nov, [facility] [id number] [place] [address] 48719- 5847 Nov, Diabetes mellitus E11.9 ; Hypertension I10 ; Gastroparesis K31.84 and Type 2 diabetes mellitus with diabetic autonomic (poly)neuropathy E11.43 [place] [facility] [address] 10856- 5927 Nov, Right ankle pain M25.571 [facility] [address] 16251- 4719 Oct, Right ankle pain M25.571 [facility] [address] 77836- 2114 Oct, [place] [facility] [address] 24971- 4948 Oct, [facility] [address] 73018- 4723 Sep, [facility] [address] 90186- 4222 Sep, Hypertension I10 [place] [address] 96243- 4834 Sep, Chronic kidney disease N18.9 ; Right ankle pain M25.571 and GERD (gastroesophageal reflux disease) K21.9 [facility] [facility] [id number] [place] [address] 17033- 3545 Jul, [facility] [address] 31165- 8446 Jul, Encounter for immunization Z23 ; Venous insufficiency I87.2 and Diabetic polyneuropathy associated with type 2 diabetes mellitus E11.42 [facility] [id number] [place] [address] 90490- 8397 Jul, [facility] [address] 47376- 9842 Jul, Diabetes mellitus E11.9 [facility] [address], [place] [address]- 7292 May, [facility] [id number] [place] [address] 18052- 1593 Apr, [facility] [address] [place] [address] 77771- 6353 Mar, Right ankle pain M25.571 [facility] [id number] [place] [address] 01799- 6692 Mar, [facility] [id number] [place] [address] 35761- 5940 February, Paresthesias R20.2 [facility] [id number] [place] [address] 03941- 2704 February, [facility] [id number] [place] [address] 15221- 8485 February, 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 [facility] [id number] [place] [address] 00413- 1153 February, Diabetes mellitus E11.9 [facility] [id number] [place] [address] 04922- 0419 February, [facility] [address] [place] [address] 61120- 6665 February, Polyneuropathy in diabetes 357.2 and Paresthesias R20.2 [facility] [address], [place] [address]- 7385 February, [facility] [id number] [place] [address] 91611- 6193 February, [facility] [address], [place] [address]- 2139 February, [facility] [id number] [place] [address] 57058- 5611 February, Diabetes mellitus E11.9 [facility] [id number] [place] [address] 27653- 1986 February, [facility] [id number] [place] [address] 80911- 8015 February, Hyperkalemia E87.5 [facility] [id number] [place] [address] 96242- 5177 Jan, Hypertension I10 [facility] [address] 47993- 9962 Jan, Insomnia G47.00 [facility] [address] 81412- 5532 Jan, [facility] [id number] [place] [address] 58068- 7582 Jan, [facility] [address] 28041- 4271 Jan, [facility] [id number] [place] [address] 40701- 3818 Dec, Right ankle pain M25.571 [facility] [id number] [place] [address] 02439- 3691 Dec, GERD (gastroesophageal reflux disease) K21.9 [facility] [id number] [place] [address] 08739- 1704 Dec, Insomnia G47.00 [facility] [address] [place] [address] 04805- 6759 Dec, Hypertension I10 and Hyperkalemia 276.7 [facility] [address] [place] [address] 77315- 9198 Dec, Chronic kidney disease N18.9 [facility] [id number] [place] [address] 63159- 9877 Dec, [facility] [id number] [place] [address] 24815- 8654 Dec, Hyperkalemia E87.5 [facility] [address] [place] [address] 74517- 9106 Dec, Chronic kidney disease N18.9 and Right ankle pain M25.571 [facility] [id number] [place] [address] 04019- 4686 Nov, GERD (gastroesophageal reflux disease) K21.9 [facility] [id number] [place] [address] 75888- 6179 Nov, Right ankle pain M25.571 [facility] [id number] [place] [address] 54367- 8058 Nov, Diabetes mellitus E11.9 [facility] [id number] [place] [address] 64594- 1309 Oct, [facility] [id number] [place] [address] 98350- 3761 Oct, [facility] [id number] [place] [address] 31887- 9711 Oct, [facility] [id number] [place] [address] 60406- 9353 Oct, Hyperkalemia E87.5 [facility] [address] [place] [address] 17372- 9083 Oct, [facility] [id number] [place] [address] 88864- 0267 Oct, Hyperkalemia E87.5 [facility] [address] [place] [address] 33177- 4016 Sep, [facility] [id number] [place] [address] 91766- 3680 Sep, [facility] [address], [place] [address]- 1638 Sep, [facility] [address], [place] [address]- 1196 Sep, [facility] [id number] [place] [address] 24403- 4272 Sep, Right ankle pain M25.571 [facility] [id number] [place] [address] 51012- 7105 Aug, Chronic kidney disease N18.9 [facility] [id number] [place] [address] 18621- 1073 Aug, [facility] [id number] [place] [address] 90909- 3075 Aug, Hyperkalemia E87.5 [facility] [id number] [place] [address] 80728- 6176 Aug, [facility] [id number] [place] [address] 68405- 0926 Jul, [facility] [id number] [place] [address] 72021- 1039 Jul, [facility] [id number] [place] [address] 48977- 9124 Jul, [facility] [address] [place] [address] 65682- 2991 Jul, Diabetes mellitus E11.9 ; Encounter for immunization Z23 ; Hypertension I10 and Hyperkalemia E87.5 [facility] [id number], [place] [address]- 2659 Jul, [facility] [id number] [place] [address] 81876- 6511 Jul, Hyperkalemia E87.5 [facility] [id number] [place] [address] 50459- 2540 Jul, Hyperkalemia E87.5 [facility] [id number] [place] [address] 20142- 2548 Jun, [facility] [place] [facility] [address] [id number] [place] [address]- 1166 Jun, [facility] [place] [facility] [address] [id number] [place] [address]- 2636 15 Jun, 2015 [facility] [place] [facility] [address] [id number] [place] [address]- 2106 Jun, [facility] [place] [facility] [address] [id number] [place] [address]- 0478 May, [facility] [place] [facility] [address] [id number] [place] [address]- 8582 May, [facility] [place] [facility] [address] [id number] [place] [address]- 9189 May, [facility] [place] [facility] [address] [id number] [place] [address]- 8645 May, Hyperkalemia 276.7 [facility] [place] [facility] [address] [id number] [place] [address]- 2549 May, [facility] [place] [facility] [address] [facility] [id number] [place] [address]- 0382 Apr, Hyperkalemia 276.7 [facility] [place] [facility] [address] [facility] [id number] [place] [address]- 9658 Apr, [facility] [place] [facility] [address] [facility] [id number] [place] [address] 2546 Apr, [facility] [place] [facility] [address] [id number] [place] [address] 2547 Apr, [facility] [place] [facility] [address] [id number] [place] [address]- 9852 Apr, [facility] [place] [facility] [address] [facility] [id number] [place] [address]- 2546 Apr, Hyperkalemia 276.7 [facility] [place] [facility] [address] [facility] [id number] [place] [address]- 4635 Apr, [facility] [id number] [address]- 4848 Apr, [facility] [address], [place] [address]- 1966 Mar, [facility] [address], [place] [address]- 1706 Mar, Hyperkalemia 276.7 [facility] [address], [place] [address] 2543 Mar, Hyperkalemia 276.7 [facility] [address], [place] [address]- 7164 Mar, [facility] [address], [place] [address]- 8979 Mar, [facility] [address], [place] [address]- 6671 Mar, [facility] [address], [place] [address]- 7478 Mar, [facility] [address], [place] [address]- 3970 Mar, Anserine bursitis 726.61 [facility] [address], [place] [address]- 3970 Mar, Asthma 493.90 and Hyperkalemia 276.7 [facility] [address], [place] [address]- 1318 Mar, [facility] [address], [place] [address]- 2988 February, [facility] [address], [place] [address]- 7967 February, [facility] [id number], [place] [address]- 2705 February, [facility] [id number] [address]- 0493 February, [facility] [address] [id number] [place] [address]- 6030 February, [facility] [place] [facility] [address] [id number] [place] [address]- 5016 February, [facility] [address] [id number] [place] [address]- 5554 February, [facility] [address] [id number] [place] [address]- 6134 February, [facility] [address] [id number] [place] [address]- 3748 February, [facility] [address] [id number] [place] [address]- 9343 Jan, [facility] [address] [id number] [place] [address]- 2512 Jan, [facility] [address] [id number] [place] [address]- 1588 Dec, [facility] [place] [facility] [address] [id number] [place] [address]- 0267 Dec, [facility] [address] [id number] [place] [address]- 4297 Dec, [facility] [place] [facility] [address] [id number] [place] [address]- 3828 Dec, [facility] [place] [facility] [address] [id number] [place] [address]- 3321 Dec, [facility] [place] [facility] [address] [id number] [place] [address]- 0699 Dec, [facility] [place] [facility] [address] [id number] [place] [address]- 4147 Dec, [facility] [place] [facility] [address] [id number] [place] [address]- 0506 Dec, [facility] [place] [facility] [address] [id number] [place] [address]- 3423 Dec, [facility] [place] [facility] [address] [id number] [place] [address]- 4992 Dec, [facility] [place] [facility] [address] [id number] [place] [address]- 2561 Dec, [facility] [place] [facility] [address] [id number] [place] [address] Dec, [facility] [place] [facility] [address] [id number] [place] [address] Dec, [facility] [place] [facility] [address] [id number] [place] [address] Dec, [facility] [place] [facility] [address] [id number] [place] [address] Nov, [facility] [place] [facility] [address] [id number] [place] [address] Nov, [facility] [place] [facility] [address] [id number] [place] [address] Nov, [facility] [place] [facility] [address] [id number] [place] [address] Nov, [facility] [place] [facility] [address] [id number] [place] [address] Nov, [facility] [place] [facility] [address] [id number] [place] [address] Nov, [facility] [place] [facility] [address] [id number] [place] [address] Oct, [facility] [place] [facility] [address] [id number] [place] [address] Oct, [facility] [place] [facility] [address] [id number] [place] [address] Oct, [facility] [place] [facility] [address] [id number] [place] [address] 13 Oct, 2014 [facility] [address] [id number] [place] [address] Oct, [facility] [place] [facility] [address] [id number] [place] [address] Oct, [facility] [address] [id number] [place] [address] Sep, [facility] [place] [facility] [address] [id number] [place] [address] 30 Sep, 2014 [facility] [address] [id number] [place] [address] Sep, [facility] [place] [facility] [address] [id number] [place] [address] Sep, [facility] [place] [facility] [address] [id number] [place] [address] Sep, [facility] [place] [facility] [address] [id number] [place] [address] Sep, [facility] [place] [facility] [address] [id number] [place] [address] Aug, [facility] [address] [id number] [place] [address] Aug, [facility] [place] [facility] [address] [id number] [place] [address] Aug, [facility] [place] [facility] [address] [id number] [place] [address]- [address] Aug, [facility] [place] [facility] [address] [id number] [place] [address] Aug, [facility] [place] [facility] [address] [id number] [place] [address] Aug, [facility] [place] [facility] [address] [id number] [place] [address] Jul, [facility] [place] [facility] [address] [id number] [place] [address] Jul, [facility] [place] [facility] [address] [id number] [place] [address] Jul, [facility] [place] [facility] [address] [id number] [place] [address] Jul, [facility] [place] [facility] [address] [id number] [place] [address] Jul, [facility] [place] [facility] [address] [id number] [place] [address] Jul, [facility] [place] [facility] [address] [id number] [place] [address] Jul, [facility] [place] [facility] [address] [id number] [place] [address] Jul, [facility] [place] [facility] [address] [id number] [place] [address] Jul, [facility] [place] [facility] [address] [id number] [place] [address] Jul, [facility] [place] [facility] [address] [id number], [place] [address] Jul, [facility] [place] [facility] [address] [id number], [place] [address] Jun, [facility] [place] [facility] [address] [id number], [place] [address] Jun, [facility] [place] [facility] [address] [id number] [place] [address] Jun, [facility] [place] [facility] [address] [id number] [place] [address] Jun, [facility] [place] [facility] [address] [id number], [place] [address] Apr, [facility] [place] [facility] [address] [id number], [place] [address] Apr, [facility] [address] [facility] [id number], [place] [address] Apr, [facility] [address] [facility] [id number], [place] [address] Apr, [facility] [address] [facility] [id number], [place] [address] Mar, [facility] [address] [facility] [id number], [place] [address] Mar, [facility] [address] [facility] [id number], [place] [address] Mar, [facility] [id number], [place] [address] Mar, [facility] [id number], [place] [address] Mar, [facility] [id number], [place] [address] Sep, [facility] [address] [id number], [place] [address] Sep, [facility] [address] [id number], [place] [address] Aug, IMMUNIZATIONS No Known Immunizations SOCIAL HISTORY Never Assessed REASON FOR VISIT Oxycodone due 04/25 PLAN OF CARE VITAL SIGNS MEDICATIONS Medication [...]
--- OUTSIDE RECORDS SUMMARY | 2018-07-12 09:11 | XMS REPORT ---
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 Name Role Phone SERGIO HANCOCK Unavailable PROBLEMS Type Condition ICD9-CM Code MQY04-VI Code Onset Dates Condition Status SNOMED Code Problem GERD (gastroesophageal reflux disease) K21.9 Active 382256052 Problem Type 2 diabetes mellitus with diabetic autonomic (poly)neuropathy E11.43 Active 815681420 Problem Gastroparesis K31.84 Active 929214455 Problem Unsteady gait R26.81 Active 32844223 Problem Pressure ulcer of unspecified heel, stage 4 L89.604 Active 694099419 Problem Chronic osteomyelitis of right foot with draining sinus M86.471 Active 286002446936886 Problem Chronic skin ulcer with fat layer exposed L98.492 Active 01638611 Problem Non-pressure chronic ulcer of right heel and midfoot with unspecified severity L97.419 Active 089363865 Problem Type 2 diabetes mellitus with foot ulcer E11.621 Active 00806964821876 Problem Chronic kidney disease N18.9 Active 596111582 Problem Paresthesias R20.2 Active 53780430 Problem Hypertension I10 Active 88491981 Problem Diabetic polyneuropathy associated with type 2 diabetes mellitus E11.42 Active 89385275 Problem Diabetes mellitus E11.9 Active 96121946 Problem Venous insufficiency I87.2 Active 08260602 ALLERGIES Substance Reaction Event Type Date Status Sulfacetamide Sodium Unknown Drug Allergy Mar, Active Plavix caused bleeding Drug Allergy Mar, Active Neurontin Makes her disoriented Drug Allergy Mar, Active Lyrica dizziness Drug Allergy Mar, Active ENCOUNTERS Encounter Location Date Diagnosis [facility] [address] [facility] [id number] [address] Jun, [facility] [address] [facility] [id number], [place] [address] Jun, [place] [id number] [place] [address] 55293- 7306 May, [facility] [address] [address]- 4079 May, Chronic skin ulcer with fat layer exposed L98.492 [facility] [address] [address]83- 4705 Apr, [place] [address] 74888- 5001 Apr, Type 2 diabetes mellitus with foot ulcer E11.621 and Unsteady gait R26.81 [place] [address] [address]- 8832 Mar, Decubitus ulcer of right heel, stage 3 L89.613 [place] [address] 96196- 8127 Mar, [place] [address] 97233- 6380 Mar, Pressure ulcer of unspecified heel, stage 4 L89.604 and Type 2 diabetes mellitus with foot ulcer E11.621 [facility] [id number] [place] [address] 47684- 3440 Mar, Encounter for medication monitoring Z51.81 [facility] [id number] [place] [address] 92390- 8224 Mar, Type 2 diabetes mellitus with foot ulcer E11.621 and Non- pressure chronic ulcer of right heel and midfoot with unspecified severity L97.419 [place] [id number] [place] [address] 63249- 4679 February, [place] [address] 14032- 7269 Jan, Right ankle pain M25.571 [facility] [place] [id number] [place] [address] 91362- 4465 Dec, Right ankle pain M25.571 [facility] [id number] [place] [address] 63888- 3827 Dec, [facility] [id number] [place] [address] 90470- 5669 Dec, [facility] [id number] [place] [address] 37614- 4424 Dec, Right ankle pain M25.571 [facility] [id number] [place] [address] 02270- 2769 Dec, Chronic skin ulcer with fat layer exposed L98.492 ; Type 2 diabetes mellitus with diabetic autonomic (poly)neuropathy E11.43 and Hypertension I10 [facility] [id number] [place] [address] 06969- 9725 Nov, [facility] [id number] [place] [address] 52537- 9186 Nov, [facility] [id number] [place] [address] 81987- 0861 Nov, [facility] [id number] [place] [address] 12116- 5740 Nov, Right ankle pain M25.571 and Chronic osteomyelitis of right foot with draining sinus M86.471 [facility] [id number] [place] [address] 90742- 2850 Oct, Right ankle pain M25.571 [facility] [id number] [place] [address] 53360- 9914 Oct, [facility] [id number] [place] [address] 44342- 7739 Sep, Diabetes mellitus E11.9 [facility] [address] [place] [address] 28682- 6733 Sep, Diabetic polyneuropathy associated with type 2 diabetes mellitus E11.42 and Venous insufficiency I87.2 [facility] [address] [place] [address] 49154- 6057 Sep, Right ankle pain M25.571 [facility] [id number] [place] [address] 07194- 3810 Aug, Right ankle pain M25.571 [facility] [id number] [place] [address] 10753- 7175 Aug, Chronic osteomyelitis of right foot with draining sinus M86.471 [facility] [address] [place] [address] 26802- 7636 Aug, [facility] [id number] [place] [address] 20445- 2272 Aug, [facility] [id number] [place] [address] 33278- 5541 Aug, Chronic osteomyelitis of right foot with draining sinus M86.471 [facility] [id number] [place] [address] 44231- 9591 Jul, [facility] [id number] [place] [address] 35566- 4793 Jul, [facility] [id number] [place] [address] 22888- 3757 Jul, Chronic kidney disease N18.9 [facility] [id number] [place] [address] 41544- 7497 Jul, Right ankle pain M25.571 [facility] [id number] [place] [address] 25358- 1277 Jul, Non-healing ulcer of right foot, unspecified ulcer stage L97.519 [facility] [id number] [place] [address] 72141- 7047 Jul, Chronic skin ulcer with fat layer exposed L98.492 [facility] [id number] [place] [address] 91194- 7143 Jul, Deformity of right ankle joint M21.961 [facility] [id number] [place] [address] 84982- 7828 27 Jun, 2017 [facility] [id number] [place] [address] 05159- 4049 21 Jun, 2017 Diabetes mellitus E11.9 ; Skin ulcer of right foot with fat layer exposed L97.512 and Encounter for immunization Z23 [place] [id number] [place] [address] 66120- 1734 18 Jun, 2017 Right ankle pain M25.571 [place] [id number] [place] [address] 44974- 7321 May, Right ankle pain M25.571 [place] [id number] [place] [address] 52582- 0375 Apr, Right ankle pain M25.571 [place] [id number] [place] [address] 27147- 1307 Mar, Right ankle pain M25.571 [place] [id number] [place] [address] 98788- 0327 Mar, [place] [id number] [place] [address] 20768- 4608 February, Diabetes mellitus E11.9 and Diabetic polyneuropathy associated with type 2 diabetes mellitus E11.42 [place] [id number] [place] [address] 93467- 8106 February, Hyperkalemia E87.5 [place] [id number] [place] [address] 24245- 2621 February, Right ankle pain M25.571 [place] [id number] [place] [address] 49902- 6911 Jan, Right ankle pain M25.571 [place] [id number] [place] [address] 62933- 5382 Dec, Right ankle pain M25.571 [place] [id number] [place] [address] 45515- 4252 Dec, Right ankle pain M25.571 [facility] [address] 82581- 3135 Nov, [place] [id number] [place] [address] 47201- 7900 Nov, Diabetes mellitus E11.9 ; Hypertension I10 ; Gastroparesis K31.84 and Type 2 diabetes mellitus with diabetic autonomic (poly)neuropathy E11.43 [place] [id number] [place] [address] 91404- 1981 Nov, Right ankle pain M25.571 [place] [id number] [place] [address] 09588- 1071 Oct, Right ankle pain M25.571 [place] [address] 43957- 4628 Oct, [facility] [id number] [place] [address] 97263- 1325 Oct, [place] [id number] [place] [address] 34033- 6163 Sep, [place] [id number] [place] [address] 93057- 0930 Sep, Hypertension I10 [place] [id number] [place] [address] 73091- 5238 Sep, Chronic kidney disease N18.9 ; Right ankle pain M25.571 and GERD (gastroesophageal reflux disease) K21.9 [place] [id number] [place] [address] 29128- 3150 Jul, [place] [id number] [place] [address] 58514- 6314 Jul, Encounter for immunization Z23 ; Venous insufficiency I87.2 and Diabetic polyneuropathy associated with type 2 diabetes mellitus E11.42 [place] [address] [address]- 2306 Jul, [facility] [id number] [place] [address] 55689- 2694 Jul, Diabetes mellitus E11.9 [facility] [address] [address]- 3836 May, [facility] [id number] [place] [address] 08283- 1108 Apr, [facility] [address] [place] [address] 06527- 3795 Mar, Right ankle pain M25.571 [facility] [id number] [place] [address] 69453- 0026 Mar, [facility] [id number] [place] [address] 09496- 9882 February, Paresthesias R20.2 [facility] [address] [address]- 8242 February, [facility] [id number] [place] [address] 25183- 1656 February, 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 [facility] [address] [address]- 4269 February, Diabetes mellitus E11.9 [facility] [address] [address]- 4565 February, [facility] [address] [address]- 5420 February, Polyneuropathy in diabetes 357.2 and Paresthesias R20.2 [facility] [address] [address]- 0807 February, [facility] [address] [address]- 4037 February, [facility] [address] [address]- 6732 February, [facility] [id number] [place] [address] 54996- 9124 February, Diabetes mellitus E11.9 [facility] [id number] [place] [address] 12789- 1302 February, [facility] [id number] [place] [address] 19302- 2405 February, Hyperkalemia E87.5 [facility] [id number] [place] [address] 74645- 7141 Jan, Hypertension I10 [facility] [id number] [place] [address] 85957- 3188 Jan, Insomnia G47.00 [facility] [id number] [place] [address] 53400- 2599 Jan, [facility] [id number] [place] [address] 75859- 5193 Jan, [facility] [id number] [place] [address] 76337- 4289 Jan, [facility] [id number] [place] [address] 23283- 9720 Dec, Right ankle pain M25.571 [facility] [id number] [place] [address] 58609- 7950 Dec, GERD (gastroesophageal reflux disease) K21.9 [facility] [address] [place] [address] 77701- 0607 Dec, Insomnia G47.00 [facility] [id number] [place] [address] 40619- 2549 Dec, Hypertension I10 and Hyperkalemia 276.7 [facility] [address] [place] [address] 10186- 2544 Dec, Chronic kidney disease N18.9 [facility] [address] [place] [address] 84783- 8621 Dec, [facility] [id number] [place] [address] 65888- 6953 Dec, Hyperkalemia E87.5 [facility] [id number] [place] [address] 17190- 1766 Dec, Chronic kidney disease N18.9 and Right ankle pain M25.571 [facility] [id number] [place] [address] 27455- 8969 Nov, GERD (gastroesophageal reflux disease) K21.9 [facility] [id number] [place] [address] 88886- 5602 Nov, Right ankle pain M25.571 [facility] [id number] [place] [address] 97316- 0778 Nov, Diabetes mellitus E11.9 [facility] [id number] [place] [address] 45331- 1133 Oct, [facility] [id number] [place] [address] 65155- 7323 Oct, [facility] [id number] [place] [address] 27159- 0380 Oct, [facility] [id number] [place] [address] 70090- 4086 Oct, Hyperkalemia E87.5 [facility] [id number] [place] [address] 50677- 5234 Oct, [facility] [id number] [place] [address] 10654- 7460 Oct, Hyperkalemia E87.5 [facility] [id number] [place] [address] 72765- 3034 Sep, [facility] [id number] [place] [address] 13585- 3881 14 Sep, 2015 [facility] [address] [address]- 3506 Sep, [facility] [address] [place] [address] 917062- 5829 Sep, [facility] [address] [place] [address] 36745- 6224 Sep, Right ankle pain M25.571 [facility] [id number] [place] [address] 90284- 2400 Aug, Chronic kidney disease N18.9 [facility] [id number] [place] [address] 54752- 3972 Aug, [facility] [id number] [place] [address] 64915- 4607 Aug, Hyperkalemia E87.5 [facility] [id number] [place] [address] 67610- 2445 Aug, [facility] [address] [place] [address] 46743- 2727 Jul, [facility] [id number] [place] [address] 64845- 6679 Jul, [facility] [address] [place] [address] 78499- 1390 Jul, [facility] [id number] [place] [address] 96556- 5831 Jul, Diabetes mellitus E11.9 ; Encounter for immunization Z23 ; Hypertension I10 and Hyperkalemia E87.5 [facility] [id number] [place] [address] 23175- 9013 Jul, [facility] [address] [place] [address] 16528- 2596 Jul, Hyperkalemia E87.5 [facility] [id number] [place] [address] 48382- 5837 Jul, Hyperkalemia E87.5 [facility] [address] [id number] [place] [address]- 1476 Jun, [facility] [place] [facility] [address] [id number] [place] [address] 2546 Jun, [facility] [address] [id number] [place] [address]- 4340 Jun, [facility] [place] [facility] [address] [id number] [place] [address]- 3057 Jun, [facility] [place] [facility] [address] [id number] [place] [address]- 0972 May, [facility] [place] [facility] [address] [id number] [place] [address]- 8832 May, [facility] [place] [facility] [address] [id number] [place] [address]- 0988 May, [facility] [address] [id number] [place] [address]- 9177 May, Hyperkalemia 276.7 [facility] [place] [facility] [id number] [place] [address]- 8232 May, [facility] [place] [facility] [address] [facility] [id number] [place] [address]- 6633 Apr, Hyperkalemia 276.7 [facility] [place] [facility] [address] [id number] [address]- 9046 Apr, [facility] [place] [facility] [address] [id number] [place] [address]- 7786 Apr, [facility] [place] [facility] [address] [facility] [id number] [place] [address]- 2549 Apr, [facility] [place] [facility] [address] [facility] [id number] [place] [address]- 2543 Apr, [facility] [place] [facility] [address] 6578 Apr, Hyperkalemia 276.7 [facility] [address], [place] [address]- 8056 Apr, [facility] [address] [address]- 2546 Apr, [facility] [address] [address]- 6584 Mar, [facility] [address] [address]- 1823 Mar, Hyperkalemia 276.7 [facility] [id number] [place] [address] 50241- 3955 Mar, Hyperkalemia 276.7 [facility] [address], [place] [address]- 0789 Mar, [facility] [address], [place] [address]- 2960 Mar, [facility] [address], [place] [address]- 7400 Mar, [facility] [address] [address]- 1919 Mar, [facility] [address], [place] [address]- 4276 Mar, Anserine bursitis 726.61 [facility] [address], [place] [address]- 2547 Mar, Asthma 493.90 and Hyperkalemia 276.7 [facility] [address], [place] [address] 2542 Mar, [facility] [address], [place] [address]- 254 February, [facility] [address], [place] [address]- 2467 February, [facility] [place] [facility] [address] [id number] [place] [address]- 1160 February, [facility] [place] [facility] [address] [id number] [place] [address]- 8804 February, [facility] [place] [facility] [address] [id number] [place] [address]- 1475 February, [facility] [place] [facility] [address] [id number] [place] [address]- 7272 February, [facility] [place] [facility] [address] [id number] [place] [address] February, [facility] [place] [facility] [address] [id number] [place] [address] February, [facility] [place] [facility] [address] [id number] [place] [address] February, [facility] [place] [facility] [address] [id number] [place] [address] Jan, [facility] [place] [facility] [address] [id number] [place] [address] Jan, [facility] [place] [facility] [address] [id number] [place] [address] Dec, [facility] [place] [facility] [address] [id number] [place] [address] Dec, [facility] [place] [facility] [address] [id number] [address] Dec, [facility] [place] [facility] [address] [id number] [place] [address] Dec, [facility] [place] [facility] [address] [id number] [place] [address] Dec, [facility] [place] [facility] [address] [id number] [place] [address] Dec, [facility] [place] [facility] [address] [id number] [place] [address] Dec, [facility] [place] [facility] [address] [id number] [place] [address] Dec, [facility] [place] [facility] [address] [id number] [place] [address] Dec, [facility] [place] [facility] [address] [id number] [place] [address] Dec, [facility] [place] [facility] [address] [id number] [place] [address] Dec, [facility] [place] [facility] [address] [id number] [place] [address] Dec, [facility] [place] [facility] [address] [id number] [place] [address] Dec, [facility] [place] [facility] [address] [id number] [place] [address] Dec, [facility] [place] [facility] [address] [id number] [place] [address] Nov, [facility] [place] [facility] [address] [id number] [place] [address] Nov, [facility] [place] [facility] [address] [id number] [place] [address] Nov, [facility] [place] [facility] [address] [id number] [place] [address] Nov, [facility] [place] [facility] [address] [id number] [place] [address] Nov, [facility] [place] [facility] [address] [id number] [place] [address] Nov, [facility] [place] [facility] [address] [id number] [place] [address] Oct, [facility] [place] [facility] [address] [id number] [place] [address] Oct, [facility] [place] [facility] [address] [id number] [place] [address] Oct, [facility] [place] [facility] [address] [id number] [place] [address] Oct, [facility] [place] [facility] [address] [id number] [place] [address] Oct, [facility] [place] [facility] [address] [id number] [place] [address] Oct, [facility] [place] [facility] [address] [id number] [place] [address] Sep, [facility] [place] [facility] [address] [id number] [place] [address] Sep, [facility] [place] [facility] [address] [id number] [place] [address] Sep, [facility] [place] [facility] [address] [id number] [place] [address] Sep, [facility] [place] [facility] [address] [id number] [place] [address] Sep, [facility] [place] [facility] [address] [id number] [place] [address] Sep, [facility] [place] [facility] [address] [id number] [place] [address] Aug, [facility] [place] [facility] [address] [id number] [place] [address] Aug, [facility] [place] [facility] [address] [id number] [place] [address] Aug, [facility] [place] [facility] [address] [id number] [place] [address] Aug, [facility] [place] [facility] [address] [id number] [place] [address] Aug, [facility] [place] [facility] [address] [id number] [place] [address] Aug, [facility] [place] [facility] [address] [id number] [place] [address] Jul, [facility] [place] [facility] [address] [id number] [place] [address] Jul, [facility] [place] [facility] [address] [id number] [place] [address] Jul, [facility] [place] [facility] [address] [id number] [place] [address] Jul, [facility] [place] [facility] [address] [id number] [place] [address] Jul, [facility] [place] [facility] [address] [id number] [place] [address] Jul, [facility] [place] [facility] [address] [id number] [place] [address] Jul, [facility] [place] [facility] [address] [id number] [place] [address] Jul, [facility] [place] [facility] [address] [id number] [place] [address] Jul, [facility] [place] [facility] [address] [facility] [id number] [place] [address] Jul, [facility] [place] [facility] [address] [id number] [place] [address] Jul, [facility] [place] [facility] [address] [id number] [place] [address] Jun, [facility] [place] [facility] [address] [id number] [place] [address] Jun, [facility] [place] [facility] [address] [id number] [place] [address] Jun, [facility] [place] [facility] [address] [id number] [place] [address] Jun2013 [facility] [place] [facility] [address] [facility] [id number] [address] Apr, [facility] [address] [facility] [id number] [address] Apr, [facility] [address] [facility] [id number], [place] [address] Apr, [facility] [address] [facility] [id number][place] [address] Apr, [facility] [address] [facility] [id number], [place] [address] Mar, [facility] [id number] [address] Mar, [facility] [id number], [place] [address] Mar, [facility] [id number], [place] [address] Mar, [facility] [address] [id number], [place] [address] Mar, [facility] [address] [id number], [place] [address] Sep, [facility] [address] [id number], [place] [address] Sep, [facility] [address] [id number], [place] [address] Aug, IMMUNIZATIONS No Known Immunizations SOCIAL HISTORY Never Assessed REASON FOR VISIT wound f/u Right heel wound reevaluation CBrumbackRN PLAN OF CARE Activity Details Follow Up 4 Weeks Reason:wound debridement VITAL SIGNS Height 62 in 2018-04-22 Weight 156 lbs 2018-04-22 Temperature 98.0 degrees Fahrenheit 2018-04-22 Heart Rate 62 bpm 2018-04-22 Respiratory Rate 16 2018-04-22 BMI 28.53 kg/m2 2018-04-22 Blood pressure systolic 118 mmHg 2018-04-22 Blood pressure diastolic 62 mmHg 2018-04-22 MEDICATIONS Medication Instructions Dosage Frequency Start Date End Date Duration Status NovoFine 32 gauge USE WITH INSULIN PENS THREE TIMES A DAY 30 Active Blood Glucose Test Test Strips subcutaneously 3 times a day check blood sugar 8h Nov, Active Amitriptyline HCl 25 MG TAKE ONE TO THREE TABLETS BY MOUTH AT BEDTIME NEEDED 30 Active Diabetic Shoes wear with ambulation Sep, Not-Taking Wheelchair DX Non-healing right ankle fracture Jul, Active MiraLax - Orally Once a day take 17 g mixed with 8 oz. water or juice by Oral route 1 time per day 24h Aug, Active Calcium Acetate (Phos Binder) 667 MG Orally Three times a day 2 tablets with meals 8h Active Vitamin D 2000 UNIT Orally Once a day 5000 units 24h Active Marie Contour Next Test - TEST BLOOD SUGAR THREE TIMES A DAY E11.9 30 Active Pantoprazole Sodium 40 MG TAKE ONE TABLET BY MOUTH ONCE DAILY 30 Active BD Insulin Syringe MicroFine 28G X 1/2 use with insulin 8h Jul, Active ProAir HFA 108 (90 Base) MCG/ACT Inhalation every 4 hrs 2 puffs as needed 4h Mar, Not-Taking Levemir FlexTouch 100 UNIT/ML INJECT 10 UNITS SUBCUTANEOUSLY ONCE DAILY 140 Not-Taking Stool Softener Active Atenolol 25 MG TAKE TWO TABLETS BY MOUTH ONCE DAILY 30 Active Levemir FlexTouch 100 unit/mL (3 mL) Subcutaneous Once a day 10 Units 24h 10 Jul, 2014 Active Reglan 10 mg Orally 4 times a day, ac and hs 1 Nov, Not- Taking Amlodipine Besylate 10 MG TAKE ONE TABLET BY MOUTH ONCE DAILY 30 Active Diabetic Shoes wear with ambulation Sep, Active Furosemide 40 mg Orally Once a day 2 tablet 24h 30 Active Glucometer ... subcutaneously one time Accu-check Nov, Active Zofran ODT 4 MG Orally every 8 hrs 1 tablet 8h 10 Active Cinnamon 500 mg Orally Once a day 4 capsules 24h Active Oxycodone HCl 5 mg Orally every [...]
--- OUTSIDE RECORDS SUMMARY | 2018-07-12 09:12 | XMS REPORT ---
Author Author SERGIO HANCOCK Organization [facility] Address [address] [place] [address] Care Team Providers Care Process Mold Technician Name Role Phone SERGIO HANCOCK Unavailable PROBLEMS Type Condition ICD9-CM Code TTG55-RW Code Onset Dates Condition Status SNOMED Code Problem GERD (gastroesophageal reflux disease) K21.9 Active 124839425 Problem Type 2 diabetes mellitus with diabetic autonomic (poly)neuropathy E11.43 Active 774329146 Problem Gastroparesis K31.84 Active 234855300 Problem Unsteady gait R26.81 Active 17333880 Problem Pressure ulcer of unspecified heel, stage 4 L89.604 Active 455066615 Problem Chronic osteomyelitis of right foot with draining sinus M86.471 Active 210706881916479 Problem Chronic skin ulcer with fat layer exposed L98.492 Active 23147549 Problem Non-pressure chronic ulcer of right heel and midfoot with unspecified severity L97.419 Active 787511800 Problem Type 2 diabetes mellitus with foot ulcer E11.621 Active 32705894915461 Problem Chronic kidney disease N18.9 Active 971113166 Problem Paresthesias R20.2 Active 26948147 Problem Hypertension I10 Active 76064099 Problem Diabetic polyneuropathy associated with type 2 diabetes mellitus E11.42 Active 54053883 Problem Diabetes mellitus E11.9 Active 21138171 Problem Venous insufficiency I87.2 Active 47816642 ALLERGIES Substance Reaction Event Type Date Status Sulfacetamide Sodium Unknown Drug Allergy Mar, Active Plavix caused bleeding Drug Allergy Mar, Active Neurontin Makes her disoriented Drug Allergy Mar, Active Lyrica dizziness Drug Allergy Mar, Active ENCOUNTERS Encounter Location Date Diagnosis [facility] [address] [facility] [id number], [place] [address] Jun, [facility] [address] [facility] [id number], [place] [address] May, [facility] [id number] [place] [address] 78376- 8224 Apr, [facility] [address] [id number] [place] [address] 78219- 9977 Apr, Type 2 diabetes mellitus with foot ulcer E11.621 and Unsteady gait R26.81 [facility] [address] [place] [id number] [place] [address] 21198- 2006 Mar, Decubitus ulcer of right heel, stage 3 L89.613 [facility] [address] [place] [id number] [place] [address] 57758- 8412 Mar, [facility] [id number] [place] [address] 93340- 9856 Mar, Pressure ulcer of unspecified heel, stage 4 L89.604 and Type 2 diabetes mellitus with foot ulcer E11.621 [facility] [id number] [place] [address] 16547- 8991 Mar, Encounter for medication monitoring Z51.81 [facility] [address] [id number] [place] [address] 98537- 7338 Mar, Type 2 diabetes mellitus with foot ulcer E11.621 and Non- pressure chronic ulcer of right heel and midfoot with unspecified severity L97.419 [facility] [address] [id number] [address] 9864 February, [facility] [id number] [place] [address] 67686- 5084 Jan, Right ankle pain M25.571 [facility] [id number] [place] [address] 27475- 5844 Dec, Right ankle pain M25.571 [facility] [id number] [place] [address] 84104071- 8161 Dec, [facility] [place] [id number] [place] [address] 46399- 5358 Dec, [facility] [id number] [place] [address] 45167- 4307 Dec, Right ankle pain M25.571 [facility] [address] [id number] [place] [address] 32486- 3203 Dec, Chronic skin ulcer with fat layer exposed L98.492 ; Type 2 diabetes mellitus with diabetic autonomic (poly)neuropathy E11.43 and Hypertension I10 [facility] [address] 01705- 1818 Nov, [facility] [address] 24655- 7449 Nov, [facility] [address] 42500- 6748 Nov, [facility] [address] [id number] [place] [address] 08821- 8918 Nov, Right ankle pain M25.571 and Chronic osteomyelitis of right foot with draining sinus M86.471 [facility] [id number] [place] [address] 92897- 2960 Oct, Right ankle pain M25.571 [facility] [address] [id number] [place] [address] 27237- 0195 Oct, [facility] [id number] [place] [address] 19319- 9480 Sep, Diabetes mellitus E11.9 [facility] [id number] [place] [address] 04462- 2838 Sep, Diabetic polyneuropathy associated with type 2 diabetes mellitus E11.42 and Venous insufficiency I87.2 [facility] [address] 02819- 8443 Sep, Right ankle pain M25.571 [facility] [id number] [place] [address] 74321- 3750 Aug, Right ankle pain M25.571 [facility] [place] [address] [address] 5357 Aug, Chronic osteomyelitis of right foot with draining sinus M86.471 [facility] [id number] [place] [address] 72571- 9503 Aug, [facility] [id number] [place] [address] 07344- 6045 Aug, [facility] [id number] [place] [address] 36721- 0692 Aug, Chronic osteomyelitis of right foot with draining sinus M86.471 [facility] [id number] [place] [address] 40347- 5027 Jul, [facility] [id number] [place] [address] 49146- 0539 Jul, [facility] [id number] [place] [address] 79282- 1075 Jul, Chronic kidney disease N18.9 [facility] [id number] [place] [address] 40398- 1890 Jul, Right ankle pain M25.571 [facility] [id number] [place] [address] 77553- 6278 Jul, Non-healing ulcer of right foot, unspecified ulcer stage L97.519 [facility] [id number] [place] [address] 61188- 1017 Jul, Chronic skin ulcer with fat layer exposed L98.492 [facility] [id number] [place] [address] 62645- 2597 Jul, Deformity of right ankle joint M21.961 [facility] [id number] [place] [address] 55076- 5674 Jun, [facility] [id number] [place] [address] 16465- 5388 Jun, Diabetes mellitus E11.9 ; Skin ulcer of right foot with fat layer exposed L97.512 and Encounter for immunization Z23 [facility] [id number] [place] [address] 19871- 9944 Jun, Right ankle pain M25.571 [facility] [address] [id number] [place] [address] 20831- 5107 May, Right ankle pain M25.571 [facility] [address] 93577- 0592 Apr, Right ankle pain M25.571 [facility] [address] [id number] [place] [address] 35212- 1395 Mar, Right ankle pain M25.571 [facility] [place] [address] [id number] [place] [address] 57006- 0563 Mar, [facility] [id number] [place] [address] 95504- 4606 February, Diabetes mellitus E11.9 and Diabetic polyneuropathy associated with type 2 diabetes mellitus E11.42 [facility] [address] [id number] [place] [address] 77180- 0481 February, Hyperkalemia E87.5 [facility] [id number] [place] [address] 62832- 9442 February, Right ankle pain M25.571 [facility] [id number] [place] [address] 15867- 0280 Jan, Right ankle pain M25.571 [facility] [id number] [place] [address] 45863- 2227 Dec, Right ankle pain M25.571 [facility] [id number] [place] [address] 06715- 8943 Dec, Right ankle pain M25.571 [facility] [id number] [place] [address] 78863- 0932 Nov, [facility] [address] [id number] [place] [address] 96787- 7291 07 Nov, 2016 Diabetes mellitus E11.9 ; Hypertension I10 ; Gastroparesis K31.84 and Type 2 diabetes mellitus with diabetic autonomic (poly)neuropathy E11.43 [facility] [address] [id number] [place] [address] 73024- 5210 Nov, Right ankle pain M25.571 [facility] [address] 84576- 4420 Oct, Right ankle pain M25.571 [facility] [place] [address] 54567- 5187 Oct, [facility] [place] [address] 49821- 1078 Oct, [place] [address] 88564- 5107 Sep, [facility] [place] [address] 31593- 8783 Sep, Hypertension I10 [facility] [place] [address] 16442- 9699 Sep, Chronic kidney disease N18.9 ; Right ankle pain M25.571 and GERD (gastroesophageal reflux disease) K21.9 [facility] [address] [id number] [place] [address] 30480- 4848 Jul, [facility] [place] [address] 87176- 2499 Jul, Encounter for immunization Z23 ; Venous insufficiency I87.2 and Diabetic polyneuropathy associated with type 2 diabetes mellitus E11.42 [facility] [place] [address] 19708- 4883 Jul, [facility] [place] [address] [place] [id number] [place] [address] 99807- 7236 Jul, Diabetes mellitus E11.9 [facility] [place] [address] [place] [address] 1954 May, [facility] [id number] [place] [address] 55981- 5607 Apr, [facility] [id number] [place] [address] 95648- 1451 Mar, Right ankle pain M25.571 [facility] [address] [id number] [place] [address] 20670- 5446 Mar, [facility] [id number] [place] [address] 65133- 7571 February, Paresthesias R20.2 [facility] [id number] [place] [address] 69666- 5075 February, [facility] [id number] [place] [address] 96034- 5291 February, 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 [facility] [id number] [place] [address] 28821- 4309 February, Diabetes mellitus E11.9 [facility] [id number] [place] [address] 40142- 6406 February, [facility] [id number] [place] [address] 97828- 2903 February, Polyneuropathy in diabetes 357.2 and Paresthesias R20.2 [facility] [address] [address]- 6313 February, [facility] [address], [place] [address]- 8320 February, [facility] [address] [id number] [place] [address] 34470- 6017 February, [facility] [id number] [place] [address] 75956- 0997 February, Diabetes mellitus E11.9 [facility] [address] [id number] [place] [address] 29218- 2251 February, [facility] [id number] [place] [address] 86203- 7485 February, Hyperkalemia E87.5 [facility] [address] [id number] [place] [address] 50162- 9246 Jan, Hypertension I10 [facility] [id number] [place] [address] 42061- 0196 Jan, Insomnia G47.00 [facility] [id number] [place] [address] 43429- 8057 Jan, [facility] [id number] [place] [address] 52742- 7360 Jan, [facility] [id number] [place] [address] 25784- 2067 Jan, [facility] [id number] [place] [address] 94119- 9888 Dec, Right ankle pain M25.571 [facility] [id number] [place] [address] 85377- 7842 Dec, GERD (gastroesophageal reflux disease) K21.9 [facility] [id number] [place] [address] 37615- 8494 Dec, Insomnia G47.00 [facility] [id number] [place] [address] 83811- 2548 Dec, Hypertension I10 and Hyperkalemia 276.7 [facility] [id number] [place] [address] 34033- 4251 Dec, Chronic kidney disease N18.9 [facility] [id number] [place] [address] 67315- 8451 Dec, [facility] [id number] [place] [address] 15948- 9991 Dec, Hyperkalemia E87.5 [facility] [id number] [place] [address] 23115- 8912 Dec, Chronic kidney disease N18.9 and Right ankle pain M25.571 [facility] [id number] [place] [address] 27301- 7825 11 Nov, 2015 GERD (gastroesophageal reflux disease) K21.9 [facility] [id number] [place] [address] 76856- 1485 Nov, Right ankle pain M25.571 [facility] [id number] [place] [address] 47820- 1885 Nov, Diabetes mellitus E11.9 [facility] [id number] [place] [address] 45780- 1428 Oct, [facility] [id number] [place] [address] 26433- 9245 Oct, [facility] [id number] [place] [address] 58981- 0809 Oct, [facility] [id number] [place] [address] 10555- 3728 Oct, Hyperkalemia E87.5 [facility] [id number] [place] [address] 51592- 1286 Oct, [facility] [id number] [place] [address] 14846- 2244 Oct, Hyperkalemia E87.5 [facility] [id number] [place] [address] 20135- 5721 Sep, [facility] [id number] [place] [address] 35872- 8781 Sep, [facility] [id number] [place] [address] 43362- 1387 Sep, [facility] [id number] [place] [address] 85867- 1452 Sep, [facility] [id number] [place] [address] 82330- 3783 Sep, Right ankle pain M25.571 [facility] [id number] [place] [address] 44009- 4447 Aug, Chronic kidney disease N18.9 [facility] [id number] [place] [address] 42894- 5164 Aug, [facility] [id number] [place] [address] 04556- 6037 Aug, Hyperkalemia E87.5 [facility] [address] 81929- 5004 Aug, [facility] [id number] [place] [address] 35012- 9792 Jul, [facility] [address] 15962- 8785 Jul, [facility] [id number] [place] [address] 51022- 6814 Jul, [facility] [id number] [place] [address] 37455- 1457 Jul, Diabetes mellitus E11.9 ; Encounter for immunization Z23 ; Hypertension I10 and Hyperkalemia E87.5 [facility] [id number] [place] [address] 66230- 9233 Jul, [facility] [id number] [place] [address] 04957- 7960 Jul, Hyperkalemia E87.5 [facility] [address] 36821- 5097 Jul, Hyperkalemia E87.5 [facility] [id number] [place] [address] 37938- 1185 Jun, [facility] [id number] [place] [address] 71826- 2462 Jun, [facility] [place] [facility] [address] [id number] [place] [address]- 6254 Jun, [facility] [place] [facility] [address] [id number] [place] [address]- 9676 Jun, [facility] [place] [facility] [address] [id number] [place] [address]- 7355 May, [facility] [place] [facility] [address] [id number] [place] [address]- 8175 May, [facility] [place] [facility] [address] [id number] [place] [address]- 4161 May, [facility] [place] [facility] [address] [facility] [id number] [place] [address]- 9018 May, Hyperkalemia 276.7 [facility] [place] [facility] [address] [facility] [id number] [place] [address]- 5867 May, [facility] [place] [facility] [address] [id number] [place] [address]- 4382 Apr, Hyperkalemia 276.7 [facility] [place] [facility] [address] [facility] [id number] [place] [address]- 6343 Apr, [facility] [place] [facility] [address] [facility] [id number] [place] [address]- 4536 Apr, [facility] [place] [facility] [address] [id number] [place] [address]- 4835 Apr, [facility] [place] [facility] [address] [id number], [place] [address]- 2197 Apr, [facility] [place] [facility] [address] [id number] [place] [address]- 2522 Apr, Hyperkalemia 276.7 [facility] [place] [facility] [address] [id number] [place] [address]- 9931 Apr, [facility] [place] [facility] [address] [facility] [id number], [place] [address]- 6532 Apr, [facility] [address] [address]- 6703 Mar, [facility] [address], [place] [address]- 9877 Mar, Hyperkalemia 276.7 [facility] [address], [place] [address]- 1928 Mar, Hyperkalemia 276.7 [facility] [address], [place] [address] 2549 Mar, [facility] [address], [place] [address]- 8379 Mar, [facility] [address], [place] [address]- 1024 Mar, [facility] [address], [place] [address]- 4224 Mar, [facility] [address], [place] [address]- 8999 Mar, Anserine bursitis 726.61 [facility] [address], [place] [address]- 1589 Mar, Asthma 493.90 and Hyperkalemia 276.7 [facility] [address], [place] [address]- 7283 Mar, [facility] [id number] [address]- 0132 February, [facility] [address], [place] [address]- 8951 February, [facility] [address], [place] [address]- 0474 February, [facility] [id number] [address]- 2756 February, [facility] [place] [facility] [address] [id number] [place] [address]- 3215 February, [facility] [place] [facility] [address] [id number] [place] [address]- 4466 February, [facility] [place] [facility] [address] [id number] [place] [address]- 7066 February, [facility] [place] [facility] [address] [id number] [place] [address]- 6346 February, [facility] [place] [facility] [address] [id number] [place] [address]- 4156 February, [facility] [place] [facility] [address] [id number] [place] [address]- 7294 Jan, [facility] [place] [facility] [address] [id number] [place] [address]- 6478 Jan, [facility] [place] [facility] [address] [id number] [place] [address]- 1436 Dec, [facility] [place] [facility] [address] [id number] [place] [address]- 4674 Dec, [facility] [place] [facility] [address] [id number] [place] [address]- 5701 Dec, [facility] [place] [facility] [address] [id number] [place] [address]- 3684 Dec, [facility] [place] [facility] [address] [id number] [place] [address]- 1402 Dec, [facility] [place] [facility] [address] [id number] [place] [address]- 8174 Dec, [facility] [place] [facility] [address] [id number] [place] [address]- 4486 Dec, [facility] [place] [facility] [address] [id number] [place] [address]- 0487 Dec, [facility] [place] [facility] [address] [id number] [place] [address]- 3784 Dec, [facility] [place] [facility] [address] [id number] [place] [address]- 0997 Dec, [facility] [place] [facility] [address] [id number] [place] [address]- 8950 Dec, [facility] [place] [facility] [address] [facility] [id number] [place] [address] Dec, [facility] [place] [facility] [address] [id number] [place] [address] Dec, [facility] [place] [facility] [address] [id number] [place] [address] Dec, [facility] [place] [facility] [address] [id number] [place] [address] Nov, [facility] [place] [facility] [address] [id number] [place] [address] Nov, [facility] [place] [facility] [address] [id number] [place] [address] Nov, [facility] [place] [facility] [address] [id number] [place] [address] Nov, [facility] [place] [facility] [address] [facility] [id number] [place] [address] Nov, [facility] [place] [facility] [address] [facility] [id number] [place] [address] Nov, [facility] [place] [facility] [address] [id number] [place] [address] Oct, [facility] [place] [facility] [address] [id number] [place] [address] Oct, [facility] [place] [facility] [address] [facility] [id number] [place] [address] Oct, [facility] [place] [facility] [address] [facility] [id number] [place] [address] Oct, [facility] [place] [facility] [address] [id number] [place] [address] Oct, [facility] [place] [facility] [address] [id number] [place] [address] Oct, [facility] [place] [facility] [address] [id number] [place] [address] Sep, [facility] [place] [facility] [address] [id number] [place] [address] Sep, [facility] [place] [facility] [address] [id number] [place] [address] Sep, [facility] [place] [facility] [address] [id number] [place] [address]- [address] Sep, [facility] [place] [facility] [address] [id number] [place] [address] Sep, [facility] [place] [facility] [address] [id number] [place] [address] 6770 Sep, [facility] [place] [facility] [address] [id number] [place] [address] Aug, [facility] [place] [facility] [address] [id number] [place] [address] Aug, [facility] [place] [facility] [address] [id number] [place] Aug, [facility] [place] [facility] [address] [id number] [place] [address] Aug, [facility] [place] [facility] [address] [id number] [place] [address] Aug, [facility] [place] [facility] [address] [id number] [place] [address] Aug, [facility] [place] [facility] [address] [id number] [place] [address] Jul, [facility] [place] [facility] [address] [id number] [place] [address]- [address] Jul, [facility] [place] [facility] [address] [id number] [place] [address] Jul, [facility] [place] [facility] [address] [id number] [place] [address] Jul, [facility] [place] [facility] [address] [id number] [place] [address] Jul, [facility] [place] [facility] [address] [id number] [place] [address] Jul, [facility] [place] [facility] [address] [id number] [place] [address] Jul, [facility] [place] [facility] [address] [id number] [place] [address] Jul, [facility] [place] [facility] [address] [id number] [place] [address] Jul, [facility] [place] [facility] [address] [id number] [place] [address] Jul, [facility] [place] [facility] [address] [id number] [place] [address] Jul, [facility] [place] [facility] [address] [id number], [place] [address] Jun, [facility] [place] [facility] [address] [id number], [place] [address] Jun, [facility] [place] [facility] [address] [id number], [place] [address] Jun, [facility] [place] [facility] [address] [id number] [place] [address] Jun, [facility] [place] [facility] [address] [id number], [place] [address] Apr, [facility] [place] [facility] [address] [id number] [address] Apr, [facility] [place] [facility] [address] [id number] [address] Apr, [facility] [id number], [place] [address] Apr, [facility] [id number] [address] Mar, [facility] [id number] [address] Mar, [facility] [id number] [address] Mar, [facility] [id number] [address] Mar, [facility] [id number], [place] [address] Mar, [facility] [id number], [place] [address] Sep, [facility] [id number] [address] Sep, [facility] [id number], [place] [address] Aug, IMMUNIZATIONS No Known Immunizations SOCIAL HISTORY Never Assessed REASON FOR VISIT wound debridement -Andrés JAVIER PLAN OF CARE Activity Details Follow Up 3 Weeks Reason:wound debriding. Future/Pending Procedure DEBRIDE SKIN TISSUE VITAL SIGNS Height 62 in 2018-03-29 Weight 155 lbs 2018-03-29 Temperature 99.1 degrees Fahrenheit 2018-03-29 Heart Rate 80 bpm 2018-03-29 Respiratory Rate 20 2018-03-29 BMI 28.35 kg/m2 2018-03-29 Blood pressure systolic 128 mmHg 2018-03-29 Blood pressure diastolic 68 mmHg 2018-03-29 MEDICATIONS Medication Instructions Dosage Frequency Start Date End Date Duration Status Diabetic Shoes wear with ambulation Sep, Active Marie Contour Next Test - TEST BLOOD SUGAR THREE TIMES A DAY E11.9 30 Active Stool Softener Active Pantoprazole Sodium 40 mg Orally Once a day 1 tablet 24h 30 Active Vitamin D 2000 UNIT Orally Once a day 5000 units 24h Active Diabetic Shoes wear with ambulation Sep, Active Amlodipine Besylate 10 MG TAKE ONE TABLET BY MOUTH ONCE DAILY 30 Active Wheelchair DX Non-healing right ankle fracture Jul, Active Levemir FlexTouch 100 unit/mL (3 mL) Subcutaneous Once a day 10 Units 24h Jul, Active Oxycodone HCl 5 mg Orally every 6 hrs 1 tablet as needed 6h Mar, 28 days Active Cinnamon 500 mg Orally Once a day 4 capsules 24h Active Atenolol 25 MG TAKE TWO TABLETS BY MOUTH ONCE DAILY 30 Active Amitriptyline HCl 25 MG TAKE ONE TO THREE TABLETS BY MOUTH AT BEDTIME NEEDED 30 Active Levemir FlexTouch 100 UNIT/ML INJECT 10 UNITS SUBCUTANEOUSLY ONCE DAILY 140 Active Calcium Acetate (Phos Binder) 667 MG Orally Three times a day 2 tablets with meals 8h Active Glucometer ... subcutaneously one time Accu-check Nov, Active Reglan 10 mg Orally 4 times a day, ac and hs 1 Nov, Not- Taking MiraLax - Orally Once a day take 17 g mixed with 8 oz. water or juice by Oral route 1 time per day 24h Aug, Active NovoFine 32 gauge USE WITH INSULIN PENS THREE TIMES A DAY 30 Active Furosemide 40 mg Orally Once a day 2 tablet 24h 30 Active Zofran ODT 4 MG Orally every 8 hrs 1 tablet 8h 10 Active Blood Glucose Test Test Strips subcutaneously 3 times a day check blood sugar 8h Nov, Active BD Insulin Syringe MicroFine 28G X 1/2 use with insulin 8h Jul, Active ProAir HFA 108 (90 Base) MCG/ACT Inhalation every 4 hrs 2 puffs as needed 4h Mar, Not-Taking RESULTS No Results PROCEDURES Procedure Date Ordered Result Body Site DEBRIDE SKIN/TISSUE March 29, 2018 INSTRUCTIONS MEDICATIONS ADMINISTERED No Known Medications MEDICAL [...]
--- OUTSIDE RECORDS SUMMARY | 2018-07-12 09:13 | XMS REPORT ---
Author Author OLYA WILLIS Organization [facility] Address [address] [place] [address] Care Team Providers Care Fire Engine Operator Name Role Phone OLYA WILLIS Unavailable PROBLEMS Type Condition ICD9-CM Code NMV18-QM Code Onset Dates Condition Status SNOMED Code Problem GERD (gastroesophageal reflux disease) K21.9 Active 240430441 Problem Type 2 diabetes mellitus with diabetic autonomic (poly)neuropathy E11.43 Active 041084840 Problem Gastroparesis K31.84 Active 279702745 Problem Unsteady gait R26.81 Active 76343989 Problem Pressure ulcer of unspecified heel, stage 4 L89.604 Active 541049773 Problem Chronic osteomyelitis of right foot with draining sinus M86.471 Active 018405638730645 Problem Chronic skin ulcer with fat layer exposed L98.492 Active 09382654 Problem Non-pressure chronic ulcer of right heel and midfoot with unspecified severity L97.419 Active 197525804 Problem Type 2 diabetes mellitus with foot ulcer E11.621 Active 55509493347556 Problem Chronic kidney disease N18.9 Active 392629464 Problem Paresthesias R20.2 Active 38994784 Problem Hypertension I10 Active 56498613 Problem Diabetic polyneuropathy associated with type 2 diabetes mellitus E11.42 Active 79630130 Problem Diabetes mellitus E11.9 Active 85313862 Problem Venous insufficiency I87.2 Active 98265232 ALLERGIES Substance Reaction Event Type Date Status Sulfacetamide Sodium Unknown Drug Allergy Mar, Active Plavix caused bleeding Drug Allergy Mar, Active Neurontin Makes her disoriented Drug Allergy Mar, Active Lyrica dizziness Drug Allergy Mar, Active ENCOUNTERS Encounter Location Date Diagnosis [facility] [address] [facility] [id number] [address] Jun, [facility] [id number] [address] May, [facility] [place] [id number] [place] [address] 04880- 3824 Apr, [facility] [place] [id number] [address] 61892- 6814 Apr, Type 2 diabetes mellitus with foot ulcer E11.621 and Unsteady gait R26.81 [facility] [id number] [address] 81263- 8639 Mar, Decubitus ulcer of right heel, stage 3 L89.613 [facility] [id number] [place] [address] 01107- 8566 Mar, [facility] [place] [id number] [place] [address] 91770- 5229 Mar, Pressure ulcer of unspecified heel, stage 4 L89.604 and Type 2 diabetes mellitus with foot ulcer E11.621 [place] [place] [id number] [address] 19626- 0242 Mar, Encounter for medication monitoring Z51.81 [facility] [place] [id number] [place] [address] 55816- 4191 Mar, Type 2 diabetes mellitus with foot ulcer E11.621 and Non- pressure chronic ulcer of right heel and midfoot with unspecified severity L97.419 [place] [place] [id number] [place] [address] 11925- 7014 February, [place] [id number] [address] 41315- 2269 Jan, Right ankle pain M25.571 [facility] [place] [id number] [place] [address] 62325- 2293 Dec, Right ankle pain M25.571 [facility] [place] [id number] [place] [address] 38226- 4966 Dec, [place] [id number] [address] 30405- 7804 Dec, [facility] [id number] [place] [address] 85894- 6032 Dec, Right ankle pain M25.571 [facility] [id number] [place] [address] 97006- 9350 Dec, Chronic skin ulcer with fat layer exposed L98.492 ; Type 2 diabetes mellitus with diabetic autonomic (poly)neuropathy E11.43 and Hypertension I10 [facility] [id number] [address] 97615- 1163 Nov, [facility] [id number] [address] 38252- 3813 Nov, [facility] [id number] [place] [address] 48017- 1392 Nov, [place] [id number] [address] 35685- 7580 Nov, Right ankle pain M25.571 and Chronic osteomyelitis of right foot with draining sinus M86.471 [facility] [id number] [address] 84501- 1743 Oct, Right ankle pain M25.571 [facility] [id number] [address] 01340- 9412 Oct, [facility] [id number] [place] [address] 10595- 4935 Sep, Diabetes mellitus E11.9 [facility] [id number] [place] [address] 63025- 8469 Sep, Diabetic polyneuropathy associated with type 2 diabetes mellitus E11.42 and Venous insufficiency I87.2 [facility] [place] [id number] [place] [address] 80328- 9788 Sep, Right ankle pain M25.571 [facility] [id number] [place] [address] 82713- 4963 Aug, Right ankle pain M25.571 [facility] [address] [place] [address] 08638- 5549 Aug, Chronic osteomyelitis of right foot with draining sinus M86.471 [facility] [address] [place] [address] 42414- 9352 Aug, [facility] [id number] [address] 06754- 7812 Aug, [facility] [id number] [address] 99882- 6775 Aug, Chronic osteomyelitis of right foot with draining sinus M86.471 [facility] [id number] [address] 56028- 1736 Jul, [facility] [id number] [address] 88911- 4727 Jul, [facility] [id number] [address] 75704- 5970 Jul, Chronic kidney disease N18.9 [facility] [id number] [address] 72413- 8748 Jul, Right ankle pain M25.571 [facility] [id number] [address] 62257- 7265 Jul, Non-healing ulcer of right foot, unspecified ulcer stage L97.519 [place] [id number] [address] 41338- 9227 Jul, Chronic skin ulcer with fat layer exposed L98.492 [facility] [id number] [address] 34926- 3112 Jul, Deformity of right ankle joint M21.961 [facility] [id number] [address] 12271- 5608 Jun, [facility] [id number] [place] [address] 78817- 4090 Jun, Diabetes mellitus E11.9 ; Skin ulcer of right foot with fat layer exposed L97.512 and Encounter for immunization Z23 [facility] [id number] [place] [address] 81960- 4218 Jun, Right ankle pain M25.571 [facility] [id number] [address] 18769- 1270 May, Right ankle pain M25.571 [facility] [id number] [address] 48332- 2188 Apr, Right ankle pain M25.571 [place] [id number] [address] 84181- 4268 Mar, Right ankle pain M25.571 [place] [id number] [place] [address] 57399- 9052 Mar, [place] [address] [address]- 1969 February, Diabetes mellitus E11.9 and Diabetic polyneuropathy associated with type 2 diabetes mellitus E11.42 [place] [id number] [address] 74722- 8154 February, Hyperkalemia E87.5 [facility] [place] [id number] [address] 28890- 1089 February, Right ankle pain M25.571 [place] [id number] [address] 28792- 3121 Jan, Right ankle pain M25.571 [place] [id number] [address] 80303- 8061 Dec, Right ankle pain M25.571 [facility] [id number] [address] 44366- 9712 Dec, Right ankle pain M25.571 [place] [id number] [place] [address] 29872- 6185 Nov, [place] [id number] [place] [address] 03938- 0265 07 Nov, 2016 Diabetes mellitus E11.9 ; Hypertension I10 ; Gastroparesis K31.84 and Type 2 diabetes mellitus with diabetic autonomic (poly)neuropathy E11.43 [facility] [id number] [place] [address] 74612- 7040 Nov, Right ankle pain M25.571 [place] [address] 67680- 0001 Oct, Right ankle pain M25.571 [place] [id number] [place] [address] 87962- 4390 Oct, [place] [id number] [address] 90243- 7086 Oct, [place] [id number] [address] 42640- 2031 Sep, [place] [address] 18684- 2647 Sep, Hypertension I10 [place] [id number] [place] [address] 52010- 1271 Sep, Chronic kidney disease N18.9 ; Right ankle pain M25.571 and GERD (gastroesophageal reflux disease) K21.9 [place] [address] [place] [address] 65868- 7056 Jul, [place] [address] 79165- 7928 Jul, Encounter for immunization Z23 ; Venous insufficiency I87.2 and Diabetic polyneuropathy associated with type 2 diabetes mellitus E11.42 [place] [id number] [place] [address] 83929- 1446 Jul, [place] [id number] [place] [address] 45970- 3608 Jul, Diabetes mellitus E11.9 [place] [id number] [address]- 5567 May, [facility] [id number] [place] [address] 15160- 8237 Apr, [facility] [address] [address]- 3814 Mar, Right ankle pain M25.571 [facility] [id number] [address] 07466- 3990 Mar, [facility] [id number] [place] [address] 75276- 4922 February, Paresthesias R20.2 [facility] [id number] [address] 76141- 6516 February, [facility] [id number] [place] [address] 49410- 0586 February, 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 [facility] [address] [address]- 6081 February, Diabetes mellitus E11.9 [facility] [id number] [place] [address] 03833- 4351 February, [facility] [address] [address]- 0167 February, Polyneuropathy in diabetes 357.2 and Paresthesias R20.2 [facility] [address] [address]- 7071 February, [facility] [address] [address]- 4526 February, [facility] [address] [address]- 0278 February, [facility] [address] [address]- 6197 February, Diabetes mellitus E11.9 [facility] [id number] [address] 15228- 4750 February, [facility] [id number] [place] [address] 65640- 8916 February, Hyperkalemia E87.5 [facility] [id number] [address] 04066- 1986 Jan, Hypertension I10 [facility] [address] 34201- 6237 Jan, Insomnia G47.00 [facility] [id number] [place] [address] 88291- 7848 Jan, [facility] [id number] [place] [address] 61116- 0090 Jan, [facility] [id number] [place] [address] 02250- 2763 Jan, [facility] [id number] [place] [address] 58880- 1486 Dec, Right ankle pain M25.571 [facility] [id number] [place] [address] 42857- 5698 Dec, GERD (gastroesophageal reflux disease) K21.9 [facility] [address] [place] [address] 16276- 6509 Dec, Insomnia G47.00 [facility] [id number] [address] 82689- 2543 Dec, Hypertension I10 and Hyperkalemia 276.7 [facility] [address] [place] [address] 81308- 5916 Dec, Chronic kidney disease N18.9 [facility] [id number] [address] 61251- 2886 Dec, [facility] [id number] [address] 59851- 4362 Dec, Hyperkalemia E87.5 [facility] [address] [place] [address] 10548- 8070 Dec, Chronic kidney disease N18.9 and Right ankle pain M25.571 [facility] [id number] [place] [address] 18678- 2146 11 Nov, 2015 GERD (gastroesophageal reflux disease) K21.9 [facility] [id number] [place] [address] 58181- 7260 03 Nov, 2015 Right ankle pain M25.571 [facility] [id number] [address] 97164- 2361 Nov, Diabetes mellitus E11.9 [facility] [id number] [address] 83810- 0937 Oct, [facility] [id number] [address] 70377- 4106 Oct, [facility] [id number] [address] 49713- 5890 Oct, [facility] [id number] [address] 20479- 3212 Oct, Hyperkalemia E87.5 [facility] [id number] [place] [address] 01196- 9031 Oct, [facility] [id number] [address] 31183- 0291 Oct, Hyperkalemia E87.5 [facility] [id number] [address] 70911- 2540 Sep, [facility] [id number] [address] 73280- 9966 Sep, [facility] [id number] [place] [address] 37662- 5634 Sep, [facility] [address] [place] [address] 18363- 5807 Sep, [facility] [id number] [place] [address] 65786- 7652 Sep, Right ankle pain M25.571 [facility] [id number] [address] 76521- 7783 Aug, Chronic kidney disease N18.9 [facility] [id number] [address] 25764- 5571 Aug, [facility] [id number] [place] [address] 65477- 2036 Aug, Hyperkalemia E87.5 [facility] [address] 18343- 6558 Aug, [facility] [id number] [place] [address] 64381- 3222 Jul, [facility] [id number] [address] 58262- 1238 Jul, [facility] [id number] [place] [address] 84483- 1764 Jul, [facility] [id number] [place] [address] 01411- 2627 Jul, Diabetes mellitus E11.9 ; Encounter for immunization Z23 ; Hypertension I10 and Hyperkalemia E87.5 [facility] [id number] [place] [address] 15688- 4294 Jul, [facility] [id number] [place] [address] 52688- 1680 Jul, Hyperkalemia E87.5 [facility] [id number] [place] [address] 62789- 1285 Jul, Hyperkalemia E87.5 [facility] [id number] [place] [address] 39689- 9394 Jun, [facility] [id number] [place] [address] [place] [address]- 8871 Jun, [facility] [place] [facility] [address] [id number] [place] [address]- 0736 15 Jun, 2015 [facility] [place] [facility] [address] [id number] [place] [address]- 5081 Jun, [facility] [place] [facility] [address] [id number] [place] [address]- 2628 May, [facility] [place] [facility] [address] [id number] [place] [address]- 1565 May, [facility] [place] [facility] [address] [id number] [place] [address]- 3005 May, [facility] [place] [facility] [address] [id number] [place] [address]- 1865 May, Hyperkalemia 276.7 [facility] [place] [facility] [address] [id number] [place] [address]- 7379 May, [facility] [place] [facility] [address] [id number] [place] [address]- 6472 Apr, Hyperkalemia 276.7 [facility] [place] [facility] [address] [id number] [place] [address]- 2183 Apr, [facility] [place] [facility] [address] [id number] [place] [address]- 3428 Apr, [facility] [place] [facility] [address] [id number] [address]- 5235 Apr, [facility] [place] [facility] [address] [id number] [place] [address]- 4600 Apr, [facility] [place] [facility] [address] [id number] [place] [address]- 2444 Apr, Hyperkalemia 276.7 [facility] [place] [facility] [address] [id number] [place] [address]- 2546 Apr, [facility] [place] [facility] [address] [address]- 3098 Apr, [facility] [address] [address]- 8394 Mar, [facility] [place] [address] [address]- 9013 Mar, Hyperkalemia 276.7 [facility] [id number] [place] [address] 02273- 5326 Mar, Hyperkalemia 276.7 [facility] [address] [address]- 1043 Mar, [facility] [id number] [place] [address] 69827- 8986 Mar, [facility] [address] [address]- 2106 Mar, [facility] [address] [address]- 2099 Mar, [facility] [address] [address]- 4628 Mar, Anserine bursitis 726.61 [facility] [address] [address]- 7834 Mar, Asthma 493.90 and Hyperkalemia 276.7 [facility] [address] [address]- 1666 Mar, [facility] [address] [address]- 3565 February, [facility] [address] [address]- 1395 February, [facility] [address] [address] February, [facility] [id number] [address] February, [facility] [place] [facility] [address] [id number] [place] [address] February, [facility] [place] [facility] [address] [id number] [place] [address] February, [facility] [place] [facility] [address] [id number] [place] [address] February, [facility] [place] [facility] [address] [id number] [place] [address] February, [facility] [place] [facility] [address] [id number] [place] [address] February, [facility] [place] [facility] [address] [id number] [place] [address] Jan, [facility] [place] [facility] [address] [id number] [place] [address] Jan, [facility] [place] [facility] [address] [id number] [place] [address] Dec, [facility] [place] [facility] [address] [id number] [place] [address] Dec, [facility] [place] [facility] [address] [id number] [place] [address] Dec, [facility] [place] [facility] [address] [id number] [place] [address] Dec, [facility] [place] [facility] [address] [id number] [place] [address] Dec, [facility] [place] [facility] [address] [id number] [place] [address] Dec, [facility] [place] [facility] [address] [id number] [place] [address] Dec, [facility] [place] [facility] [address] [id number] [place] [address] Dec, [facility] [place] [facility] [address] [id number] [place] [address]- [address] Dec, [facility] [place] [facility] [address] [id number] [place] [address] Dec, [facility] [place] [facility] [address] [id number] [place] [address] Dec, [facility] [place] [facility] [address] [id number] [place] [address] Dec, [facility] [place] [facility] [address] [id number] [place] [address] Dec, [facility] [place] [facility] [address] [id number] [place] [address] Dec, [facility] [place] [facility] [address] [id number] [place] [address] Nov, [facility] [place] [facility] [address] [facility] [id number] [place] [address] Nov, [facility] [place] [facility] [address] [facility] [id number] [place] [address] Nov, [facility] [place] [facility] [address] [id number] [place] [address] Nov, [facility] [place] [facility] [address] [facility] [id number] [place] [address] Nov, [facility] [place] [facility] [address] [facility] [id number] [place] [address] Nov, [facility] [place] [facility] [address] [id number] [address] Oct, [facility] [place] [facility] [address] [id number] [place] [address] Oct, [facility] [place] [facility] [address] [facility] [id number] [address] Oct, [facility] [place] [facility] [address] [facility] [id number] [address] Oct, [facility] [place] [facility] [address] [id number] [place] [address] Oct, [facility] [place] [facility] [address] [id number] [place] [address] Oct, [facility] [place] [facility] [address] [id number] [place] [address] Sep, [facility] [place] [facility] [address] [id number] [place] [address] Sep, [facility] [place] [facility] [address] [id number] [place] [address] Sep, [facility] [place] [facility] [address] [id number] [place] [address] Sep, [facility] [place] [facility] [address] [id number] [place] [address] Sep, [facility] [place] [facility] [address] [id number] [place] [address] Sep, [facility] [place] [facility] [address] [id number] [place] [address] Aug, [facility] [place] [facility] [address] [id number] [place] [address] Aug, [facility] [place] [facility] [address] [id number] [place] [address] Aug, [facility] [place] [facility] [address] [id number] [place] [address] Aug, [facility] [place] [facility] [address] [id number] [place] [address] Aug, [facility] [place] [facility] [address] [id number] [place] [address] Aug, [facility] [place] [facility] [address] [id number] [place] [address] Jul, [facility] [place] [facility] [address] [id number] [address] Jul, [facility] [place] [facility] [address] [id number] [place] [address] Jul, [facility] [place] [facility] [address] [id number] [place] [address] Jul, [facility] [place] [facility] [address] [id number] [place] [address] Jul, [facility] [place] [facility] [address] [id number] [place] [address] Jul, [facility] [place] [facility] [address] [id number] [place] [address] Jul, [facility] [place] [facility] [address] [id number] [place] [address] Jul, [facility] [place] [facility] [address] [id number] [place] [address] Jul, [facility] [place] [facility] [address] [id number] [place] [address] Jul, [facility] [place] [facility] [address] [id number] [place] [address] Jul, [facility] [place] [facility] [address] [id number] [place] [address] Jun, [facility] [place] [facility] [address] [id number][place] [address] Jun, [facility] [place] [facility] [address] [id number][place] [address] Jun, [facility] [place] [facility] [address] [id number] [place] [address] Jun, [facility] [place] [facility] [address] [id number] [address] Apr, [facility] [place] [facility] [address] [id number] [place] [address] Apr, [facility] [place] [facility] [address] [id number] [address] Apr, [facility] [address] [id number] [address] Apr, [facility] [id number] [address] Mar, [facility] [address] [id number] [address] Mar, [facility] [id number] Mar, [facility] [id number] [address] Mar, [facility] [id number] [address] Mar, [facility] [id number] [address] Sep, [facility] [address] [id number] [address] Sep, [facility] [id number] [address] [address] Aug, IMMUNIZATIONS No Known Immunizations SOCIAL HISTORY Never Assessed REASON FOR VISIT PT has a sore on the bottom of right foot and has already seen wound care and has no sources to maintain -Nicholas JAVIER PLAN OF CARE Activity Details Follow Up prn Reason: VITAL SIGNS Height 62 in 2018-03-25 Weight 155.3 lbs 2018-03-25 Temperature 98.0 degrees Fahrenheit 2018-03-25 Heart Rate 62 bpm 2018-03-25 Respiratory Rate 18 2018-03-25 BMI 28.4 kg/m2 2018-03-25 Blood pressure systolic 126 mmHg 2018-03-25 Blood pressure diastolic 42 mmHg 2018-03-25 MEDICATIONS Medication Instructions Dosage Frequency Start Date End Date Duration Status Diabetic Shoes wear with ambulation Sep, Active Cinnamon 500 mg Orally Once a day 4 capsules 24h Active Amitriptyline HCl 25 MG TAKE ONE TO THREE TABLETS BY MOUTH AT BEDTIME NEEDED 30 Active Stool Softener Active Blood Glucose Test Test Strips subcutaneously 3 times a day check blood sugar 8h Nov, Active Pantoprazole Sodium 40 mg Orally Once a day 1 tablet 24h 30 Active MiraLax - Orally Once a day take 17 g mixed with 8 oz. water or juice by Oral route 1 time per day 24h 07 Aug, 2014 Active BD Insulin Syringe MicroFine 28G X 1/2 use with insulin 8h Jul, Active Zofran ODT 4 MG Orally every 8 hrs 1 tablet 8h 10 Active Levemir FlexTouch 100 UNIT/ML INJECT 10 UNITS SUBCUTANEOUSLY ONCE DAILY 140 Active Levemir FlexTouch 100 unit/mL (3 mL) Subcutaneous Once a day 10 Units 24h Jul, Active ProAir HFA 108 (90 Base) MCG/ACT Inhalation every 4 hrs 2 puffs as needed 4h Mar, Not-Taking Calcium Acetate (Phos Binder) 667 MG Orally Three times a day 2 tablets with meals 8h Active Atenolol 25 MG TAKE TWO TABLETS BY MOUTH ONCE DAILY 30 Active Oxycodone HCl 5 mg Orally every 6 hrs 1 tablet as needed 6h February, Mar, 28 days Active Glucometer ... subcutaneously one time Accu-check Nov, Active Wheelchair DX Non-healing right ankle fracture Jul, Active Amlodipine Besylate 10 MG TAKE ONE TABLET BY MOUTH ONCE DAILY 30 Active NovoFine 32 gauge USE WITH INSULIN PENS THREE TIMES A DAY 30 Active Furosemide 40 mg Orally Once a day 2 tablet 24h 30 Active Marie Contour Next Test - TEST BLOOD SUGAR THREE TIMES A DAY E11.9 30 Active Diabetic Shoes wear with ambulation Sep, Active Vitamin D 2000 UNIT Orally Once a day 5000 units 24h Active Reglan 10 mg Orally 4 times a day, ac and hs 1 Nov, Not- Taking RESULTS No Results PROCEDURES No Known procedures [...]
--- OUTSIDE RECORDS SUMMARY | 2018-07-12 09:13 | XMS REPORT ---
Author Author OLYA WILLIS Organization [facility] Address [address] [place] [address] Care Team Providers Care Aviation Technician Aircraft Name Role Phone OLYA WILLIS Unavailable PROBLEMS Type Condition ICD9-CM Code FMZ00-WK Code Onset Dates Condition Status SNOMED Code Problem GERD (gastroesophageal reflux disease) K21.9 Active 160377905 Problem Type 2 diabetes mellitus with diabetic autonomic (poly)neuropathy E11.43 Active 834856485 Problem Gastroparesis K31.84 Active 987412671 Problem Unsteady gait R26.81 Active 89245175 Problem Pressure ulcer of unspecified heel, stage 4 L89.604 Active 832213191 Problem Chronic osteomyelitis of right foot with draining sinus M86.471 Active [id number] Problem Chronic skin ulcer with fat layer exposed L98.492 Active 71621582 Problem Non-pressure chronic ulcer of right heel and midfoot with unspecified severity L97.419 Active 483931918 Problem Type 2 diabetes mellitus with foot ulcer E11.621 Active 51894148853739 Problem Chronic kidney disease N18.9 Active 324692765 Problem Paresthesias R20.2 Active 68983233 Problem Hypertension I10 Active 48152630 Problem Diabetic polyneuropathy associated with type 2 diabetes mellitus E11.42 Active 70262624 Problem Diabetes mellitus E11.9 Active 29219364 Problem Venous insufficiency I87.2 Active 31817773 ALLERGIES No Information ENCOUNTERS Encounter Location Date Diagnosis [facility] [address] [facility] [id number] [address] Jun, [facility] [id number] [address] May, [facility] [address] [id number] [address] [address] Apr, [facility] [id number] [place] [address] 77427- 2038 Apr, Type 2 diabetes mellitus with foot ulcer E11.621 and Unsteady gait R26.81 [facility] [id number] [place] [address] 21692- 6807 Mar, Decubitus ulcer of right heel, stage 3 L89.613 [facility] [id number] [place] [address] 63100- 1529 Mar, [facility] [id number] [place] [address] 36028- 0317 Mar, Pressure ulcer of unspecified heel, stage 4 L89.604 and Type 2 diabetes mellitus with foot ulcer E11.621 [facility] [id number] [place] [address] 59698- 8840 Mar, Encounter for medication monitoring Z51.81 [facility] [id number] [place] [address] 15308- 7530 Mar, Type 2 diabetes mellitus with foot ulcer E11.621 and Non- pressure chronic ulcer of right heel and midfoot with unspecified severity L97.419 [facility] [id number] [place] [address] 84148- 9524 February, [facility] [id number] [place] [address] 76648- 2065 Jan, Right ankle pain M25.571 [facility] [id number] [place] [address] 69387- 0339 Dec, Right ankle pain M25.571 [facility] [id number] [place] [address] 84619- 0643 Dec, [facility] [id number] [place] [address] 89883- 3770 Dec, [facility] [id number] [place] [address] 06786- 4745 Dec, Right ankle pain M25.571 [facility] [id number] [place] [address] 31279- 8860 Dec, Chronic skin ulcer with fat layer exposed L98.492 ; Type 2 diabetes mellitus with diabetic autonomic (poly)neuropathy E11.43 and Hypertension I10 [facility] [id number] [place] [address] 66016- 7667 Nov, [facility] [id number] [place] [address] 02777- 1557 Nov, [facility] [id number] [place] [address] 54525- 5579 Nov, [facility] [id number] [place] [address] 79561- 9638 Nov, Right ankle pain M25.571 and Chronic osteomyelitis of right foot with draining sinus M86.471 [facility] [id number] [place] [address] 35053- 2776 Oct, Right ankle pain M25.571 [facility] [id number] [place] [address] 60689- 5455 Oct, [facility] [id number] [place] [address] 29859- 6738 Sep, Diabetes mellitus E11.9 [facility] [id number] [place] [address] 31262- 5986 Sep, Diabetic polyneuropathy associated with type 2 diabetes mellitus E11.42 and Venous insufficiency I87.2 [facility] [id number] [place] [address] 65198- 8820 Sep, Right ankle pain M25.571 [facility] [id number] [place] [address] 45547- 1014 Aug, Right ankle pain M25.571 [facility] [id number] [place] [address] 55263- 7612 Aug, Chronic osteomyelitis of right foot with draining sinus M86.471 [facility] [id number] [place] [address] 53557- 8992 Aug, [facility] [id number] [place] [address] 13313- 5561 Aug, [facility] [id number] [place] [address] 14786- 5735 Aug, Chronic osteomyelitis of right foot with draining sinus M86.471 [facility] [id number] [place] [address] 41135- 3614 Jul, [facility] [id number] [place] [address] 10896- 7168 Jul, [facility] [id number] [place] [address] 95885- 8594 Jul, Chronic kidney disease N18.9 [facility] [id number] [place] [address] 80240- 3940 Jul, Right ankle pain M25.571 [facility] [id number] [place] [address] 03031- 3388 Jul, Non-healing ulcer of right foot, unspecified ulcer stage L97.519 [facility] [id number] [place] [address] 79944- 8985 Jul, Chronic skin ulcer with fat layer exposed L98.492 [facility] [id number] [place] [address] 43661- 7698 Jul, Deformity of right ankle joint M21.961 [facility] [id number] [place] [address] 68636- 2694 Jun, [facility] [id number] [place] [address] 36990- 6303 Jun, Diabetes mellitus E11.9 ; Skin ulcer of right foot with fat layer exposed L97.512 and Encounter for immunization Z23 [facility] [id number] [place] [address] 94424- 7627 Jun, Right ankle pain M25.571 [facility] [id number] [place] [address] 61845- 4050 May, Right ankle pain M25.571 [facility] [id number] [place] [address] 27240- 1232 Apr, Right ankle pain M25.571 [facility] [id number] [place] [address] 49098- 7320 Mar, Right ankle pain M25.571 [facility] [id number] [place] [address] 39132- 3613 Mar, [facility] [id number] [place] [address] 63052- 1608 February, Diabetes mellitus E11.9 and Diabetic polyneuropathy associated with type 2 diabetes mellitus E11.42 [facility] [id number] [place] [address] 52335- 4633 February, Hyperkalemia E87.5 [facility] [id number] [place] [address] 69197- 1087 February, Right ankle pain M25.571 [facility] [id number] [place] [address] 26221- 1103 Jan, Right ankle pain M25.571 [facility] [id number] [place] [address] 90517- 2211 Dec, Right ankle pain M25.571 [facility] [id number] [place] [address] 31112- 2747 Dec, Right ankle pain M25.571 [facility] [id number] [place] [address] 46198- 5337 Nov, [facility] [id number] [place] [address] 82077502- 6043 Nov, Diabetes mellitus E11.9 ; Hypertension I10 ; Gastroparesis K31.84 and Type 2 diabetes mellitus with diabetic autonomic (poly)neuropathy E11.43 [facility] [id number] [place] [address] 80286- 3900 Nov, Right ankle pain M25.571 [facility] [id number] [place] [address] 68230- 0670 Oct, Right ankle pain M25.571 [facility] [address] 09276- 9954 Oct, [facility] [id number] [place] [address] 04216- 0901 Oct, [facility] [address] 80055- 8135 Sep, [facility] [address] 12174- 1767 Sep, Hypertension I10 [facility] [address] 77342- 7332 Sep, Chronic kidney disease N18.9 ; Right ankle pain M25.571 and GERD (gastroesophageal reflux disease) K21.9 [facility] [address] 40426- 1343 Jul, [facility] [id number] [place] [address] 18703- 8484 Jul, Encounter for immunization Z23 ; Venous insufficiency I87.2 and Diabetic polyneuropathy associated with type [address] [facility] [id number] [place] [address] 05129- 8162 Jul, [facility] [address] 47498- 2776 Jul, Diabetes mellitus E11.9 [facility] [id number] [place] [address] 53517- 8078 May, [facility] [address] 45739- 8304 Apr, [facility] [address] [address]- 7679 Mar, Right ankle pain M25.571 [facility] [address] [address]- 8166 Mar, [facility] [address] [address]- 5348 February, Paresthesias R20.2 [facility] [id number] [address]- 6187 February, [facility] [id number] [place] [address] 05283- 6879 February, 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 [facility] [address] [address]- 2785 February, Diabetes mellitus E11.9 [facility] [id number] [place] [address] 41966- 5608 February, [facility] [address] [address]- 2088 February, Polyneuropathy in diabetes 357.[address] [facility] [address] [address]- 0474 February, [facility] [address] [address]- 2440 February, [facility] [address] [address]- 5261 February, [facility] [address] [address]- 8426 February, Diabetes mellitus E11.9 [facility] [address] [address]- 5392 February, [facility] [address] [address]- 0364 February, Hyperkalemia E87.5 [facility] [id number] [place] [address] 50508- 9704 Jan, Hypertension I10 [facility] [id number] [place] [address] 99921- 5366 Jan, Insomnia G47.00 [facility] [id number] [place] [address] 60725- 2106 Jan, [facility] [id number] [place] [address] 13523- 6224 Jan, [facility] [id number] [place] [address] 66785- 4278 Jan, [facility] [id number] [place] [address] 54361- 3650 Dec, Right ankle pain M25.571 [facility] [address] 13921- 9772 Dec, GERD (gastroesophageal reflux disease) K21.9 [facility] [id number] [place] [address] 10306- 0258 Dec, Insomnia G47.00 [facility] [id number] [place] [address] 09345- 1689 Dec, Hypertension I10 and [address] [facility] [id number] [place] [address] 42728- 8776 Dec, Chronic kidney disease N18.9 [facility] [id number] [place] [address] 14929 2540 Dec, [facility] [id number] [place] [address] 61853- 7948 Dec, Hyperkalemia E87.5 [facility] [id number] [place] [address] 69267- 4217 Dec, Chronic kidney disease N18.9 and Right ankle pain M25.571 [facility] [id number] [address]- 5695 11 Nov, 2015 GERD (gastroesophageal reflux disease) K21.9 [facility] [id number] [place] [address] 68841- 0947 Nov, Right ankle pain M25.571 [facility] [id number] [place] [address] 55061- 5307 Nov, Diabetes mellitus E11.9 [facility] [id number] [place] [address] 78754- 5644 Oct, [facility] [id number] [place] [address] 80572- 8061 Oct, [facility] [id number] [place] [address] 89160- 2228 Oct, [facility] [id number] [place] [address] 13406- 6994 Oct, Hyperkalemia E87.5 [facility] [id number] [place] [address] 73817- 9049 Oct, [facility] [id number] [place] [address] 44305- 0917 Oct, Hyperkalemia E87.5 [facility] [id number] [place] [address] 65373- 1080 Sep, [facility] [id number] [place] [address] 99841- 6583 Sep, [facility] [address] [address]- 7057 Sep, [facility] [id number] [place] [address] 49818- 0701 Sep, [facility] [address] [address]- 6075 Sep, Right ankle pain M25.571 [facility] [id number] [address]- 0859 Aug, Chronic kidney disease N18.9 [facility] [id number] [place] [address] 52542- 4873 Aug, [facility] [id number] [place] [address] 37947- 0519 Aug, Hyperkalemia E87.5 [facility] [id number] [place] [address] 75151- 8343 Aug, [facility] [id number] [place] [address] 72492- 4339 Jul, [facility] [id number] [place] [address] 31749- 3499 Jul, [facility] [id number] [place] [address] 39897- 3987 Jul, [facility] [id number] [place] [address] 60426- 6431 Jul, Diabetes mellitus E11.9 ; Encounter for immunization Z23 ; Hypertension I10 and Hyperkalemia E87.5 [facility] [id number] [place] [address] 84729- 8404 Jul, [facility] [id number] [place] [address] 23762- 6673 Jul, Hyperkalemia E87.5 [facility] [id number] [place] [address] 40147- 7805 Jul, Hyperkalemia E87.5 [facility] [id number] [place] [address] 85129- 7348 Jun, [facility] [id number] [place] [address] 09131- 5623 Jun, [facility] [id number] [place] [address] 54527- 5732 Jun, [facility] [place] [facility] [address] [id number] [place] [address]- 3210 Jun, [facility] [place] [facility] [address] [id number] [place] [address]- 9897 May, [facility] [place] [facility] [address] [id number] [place] [address]- 4174 May, [facility] [place] [facility] [address] [id number] [place] [address]- 3572 May, [facility] [place] [facility] [address] [id number] [place] [address]- 1915 May, Hyperkalemia 276.7 [facility] [place] [facility] [address] [id number] [place] [address]- 6601 May, [facility] [place] [facility] [address] [id number] [place] [address]- 0289 Apr, Hyperkalemia 276.7 [facility] [place] [facility] [address] [id number] [place] [address]- 1340 Apr, [facility] [place] [facility] [address] [id number] [place] [address]- 7747 Apr, [facility] [place] [facility] [address] [id number] [place] [address]- 4802 Apr, [facility] [place] [facility] [address] [id number] [place] [address]- 6963 Apr, [facility] [place] [facility] [address] [id number] [place] [address]- 8069 Apr, Hyperkalemia 276.7 [facility] [place] [facility] [address] [id number] [place] [address] 2549 Apr, [facility] [place] [facility] [address] [id number] [place] [address]- 7860 Apr, [facility] [place] [facility] [address] [id number] [place] [address]- 9623 Mar, [facility] [address] [facility] [id number] [address]- 7456 Mar, Hyperkalemia 276.7 [facility] [id number] [place] [address]- 6466 Mar, Hyperkalemia 276.7 [facility] [address] [address]- 0091 Mar, [facility] [address] [address]- 1466 Mar, [facility] [address] [address]- 7979 Mar, [facility] [address] [address]- 2366 Mar, [facility] [address] [address]- 2350 Mar, Anserine bursitis 726.61 [facility] [address] [address]- 9269 Mar, Asthma 493.[address] [facility] [address] [address]- 1158 Mar, [facility] [address] [address]- 9103 February, [facility] [address] [address]- 0055 February, [facility] [id number] [address]- 8098 February, [facility] [address] [address]- 8326 February, [facility] [address] [id number] [address]- 6305 February, [facility] [address] [address]- 4065 February, [facility] [place] [facility] [address] [id number] [place] [address]- 2367 February, [facility] [place] [facility] [address] [id number] [place] [address]- 7042 February, [facility] [place] [facility] [address] [id number] [place] [address]- 1910 February, [facility] [place] [facility] [address] [id number] [place] [address]- 3199 Jan, [facility] [place] [facility] [address] [id number] [place] [address]- 3304 Jan, [facility] [place] [facility] [address] [id number] [place] [address]- 0611 Dec, [facility] [place] [facility] [address] [id number] [place] [address]- 7113 Dec, [facility] [place] [facility] [address] [id number] [place] [address]- 7552 Dec, [facility] [place] [facility] [address] [id number] [place] [address]- 1940 Dec, [facility] [place] [facility] [address] [id number] [place] [address]- 1282 Dec, [facility] [place] [facility] [address] [id number] [place] [address]- 7478 Dec, [facility] [place] [facility] [address] [id number] [place] [address]- 7198 Dec, [facility] [place] [facility] [address] [id number] [place] [address]- 0968 Dec, [facility] [place] [facility] [address] [id number] [place] [address]- 8934 Dec, [facility] [place] [facility] [address] [id number] [place] [address]- 6264 Dec, [facility] [place] [facility] [address] [id number] [place] [address]- 8118 Dec, [facility] [place] [facility] [address] [id number] [place] [address]- 8309 Dec, [facility] [place] [facility] [address] [id number] [place] [address]- 6590 Dec, [facility] [place] [facility] [address] [id number] [place] [address]- 5343 Dec, [facility] [place] [facility] [address] [id number] [place] [address]- 9789 Nov, [facility] [place] [facility] [address] [id number] [place] [address]- 1249 Nov, [facility] [place] [facility] [address] [id number] [place] [address]- 9389 Nov, [facility] [place] [facility] [address] [id number] [place] [address]- 4262 Nov, [facility] [place] [facility] [address] [id number] [place] [address] Nov, [facility] [place] [facility] [address] [facility] [id number] [place] [address] Nov, [facility] [place] [facility] [address] [id number] [place] [address] Oct, [facility] [place] [facility] [address] [id number] [place] [address] Oct, [facility] [place] [facility] [address] [id number] [place] [address] Oct, [facility] [place] [facility] [address] [id number] [place] [address] Oct, [facility] [place] [facility] [address] [id number] [place] [address] Oct, [facility] [place] [facility] [address] [id number] [place] [address] Oct, [facility] [place] [facility] [address] [id number] [place] [address] Sep, [facility] [place] [facility] [address] [id number] [place] [address] Sep, [facility] [place] [facility] [address] [id number] [place] [address] Sep, [facility] [place] [facility] [address] [id number] [place] [address] Sep, [facility] [place] [facility] [address] [id number] [place] [address] Sep, [facility] [place] [facility] [address] [id number] [place] [address] Sep, [facility] [place] [facility] [address] [id number] [place] [address]- [address] Aug, [facility] [place] [facility] [address] [id number] [place] [address] Aug, [facility] [place] [facility] [address] [id number] [place] [address] Aug, [facility] [place] [facility] [address] [id number] [place] [address] Aug, [facility] [place] [facility] [address] [id number] [place] [address] Aug, [facility] [place] [facility] [address] [id number] [place] [address] Aug, [facility] [place] [facility] [address] [id number] [place] [address] Jul, [facility] [place] [facility] [address] [id number] [place] [address] Jul, [facility] [place] [facility] [address] [id number] [place] [address] Jul, [facility] [place] [facility] [address] [id number] [place] [address]- [address] Jul, 2013 [facility] [place] [facility] [address] [id number] [place] [address] Jul, [facility] [place] [facility] [address] [id number] [place] [address] Jul, [facility] [place] [facility] [address] [id number] [place] [address] Jul, [facility] [place] [facility] [address] [id number] [place] [address] Jul, [facility] [place] [facility] [address] [id number] [place] [address] Jul, [facility] [place] [facility] [address] [id number] [place] [address] Jul, [facility] [place] [facility] [address] [id number] [place] [address]- [address] Jul, [facility] [place] [facility] [address] [id number] [place] [address] Jun, [facility] [place] [facility] [address] [id number] [place] [address]- [address] Jun, [facility] [place] [facility] [address] [id number] [place] [address] Jun, [facility] [place] [facility] [address] [id number] [place] [address] Jun, [facility] [place] [facility] [address] [id number] [place] [address] Apr, [facility] [place] [facility] [address] [id number] [place] [address] Apr, [facility] [place] [facility] [address] [id number] [place] [address] Apr, [facility] [place] [facility] [address] [id number] [place] [address] Apr, [facility] [address] [facility] [id number] [address] Mar, [facility] [address] [id number] [address] Mar, [facility] [address] [id number] [address] Mar, [facility] [id number] [address] Mar, [facility] [address] [id number] [address] Mar, [facility] [id number] [address] Sep, [facility] [id number] [address] Sep, [facility] [address] [id number] [address] Aug, IMMUNIZATIONS No Known Immunizations SOCIAL HISTORY Never Assessed REASON FOR VISIT Oxycodone 6/ PLAN OF CARE VITAL SIGNS MEDICATIONS Medication Instructions Dosage Frequency Start Date End Date Duration Status Oxycodone HCl 5 mg Orally every 6 hrs 1 tablet as needed 6h Mar, 28 days Active RESULTS No Results PROCEDURES [...]
--- OUTSIDE RECORDS SUMMARY | 2018-07-12 09:14 | XMS REPORT ---
Author Author OLYA WILLIS Organization [facility] Address [address] [place] [address] Care Team Providers Care Patternmaker Bench Name Role Phone OLYA WILLIS Unavailable PROBLEMS Type Condition ICD9-CM Code PYY83-VO Code Onset Dates Condition Status SNOMED Code Problem GERD (gastroesophageal reflux disease) K21.9 Active 444994998 Problem Type 2 diabetes mellitus with diabetic autonomic (poly)neuropathy E11.43 Active 470545884 Problem Gastroparesis K31.84 Active 082964083 Problem Unsteady gait R26.81 Active 43816578 Problem Pressure ulcer of unspecified heel, stage 4 L89.604 Active 405743931 Problem Chronic osteomyelitis of right foot with draining sinus M86.471 Active 584957535141941 Problem Chronic skin ulcer with fat layer exposed L98.492 Active 33988089 Problem Non-pressure chronic ulcer of right heel and midfoot with unspecified severity L97.419 Active 540334961 Problem Type 2 diabetes mellitus with foot ulcer E11.621 Active 85021049367454 Problem Chronic kidney disease N18.9 Active 511745271 Problem Paresthesias R20.2 Active 45228487 Problem Hypertension I10 Active 67130425 Problem Diabetic polyneuropathy associated with type 2 diabetes mellitus E11.42 Active 49295361 Problem Diabetes mellitus E11.9 Active 63878057 Problem Venous insufficiency I87.2 Active 61799165 ALLERGIES No Information ENCOUNTERS Encounter Location Date Diagnosis [facility] [address] [facility] [id number] [address] Jun, [facility] [address] [address] May, [facility] [id number] [address] [address] Apr, [facility] [id number] [place] [address] 41729- 1571 Apr, Type 2 diabetes mellitus with foot ulcer E11.621 and Unsteady gait R26.81 [place] [id number] [place] [address] 72719- 5536 Mar, Decubitus ulcer of right heel, stage 3 L89.613 [place] [id number] [place] [address] 15283- 7597 Mar, [place] [id number] [place] [address] 68627- 4054 Mar, Pressure ulcer of unspecified heel, stage 4 L89.604 and Type 2 diabetes mellitus with foot ulcer E11.621 [place] [id number] [place] [address] 20660- 7603 Mar, Encounter for medication monitoring Z51.81 [place] [id number] [place] [address] 57017- 6309 Mar, Type 2 diabetes mellitus with foot ulcer E11.621 and Non- pressure chronic ulcer of right heel and midfoot with unspecified severity L97.419 [place] [id number] [place] [address] 78744- 8663 February, [place] [id number] [place] [address] 59186- 5332 Jan, Right ankle pain M25.571 [place] [id number] [place] [address] 50418- 3320 Dec, Right ankle pain M25.571 [place] [id number] [place] [address] 85807- 8879 Dec, [place] [id number] [place] [address] 69591- 6826 Dec, [place] [id number] [place] [address] 71746- 1362 Dec, Right ankle pain M25.571 [place] [id number] [place] [address] 33067- 1361 Dec, Chronic skin ulcer with fat layer exposed L98.492 ; Type 2 diabetes mellitus with diabetic autonomic (poly)neuropathy E11.43 and Hypertension I10 [place] [id number] [place] [address] 71678- 5754 Nov, [place] [id number] [place] [address] 18241- 5997 Nov, [facility] [id number] [place] [address] 15277- 6524 Nov, [place] [id number] [place] [address] 29434- 7685 Nov, Right ankle pain M25.571 and Chronic osteomyelitis of right foot with draining sinus M86.471 [place] [id number] [place] [address] 80574- 5191 Oct, Right ankle pain M25.571 [place] [id number] [place] [address] 54210- 6704 Oct, [place] [id number] [place] [address] 27632- 1483 Sep, Diabetes mellitus E11.9 [place] [id number] [place] [address] 59831- 7599 Sep, Diabetic polyneuropathy associated with type 2 diabetes mellitus E11.42 and Venous insufficiency I87.2 [place] [id number] [place] [address] 36411- 5583 Sep, Right ankle pain M25.571 [place] [id number] [place] [address] 11528- 9083 Aug, Right ankle pain M25.571 [place] [id number] [place] [address] 48939- 2008 Aug, Chronic osteomyelitis of right foot with draining sinus M86.471 [place] [id number] [place] [address] 14499- 3721 Aug, [facility] [id number] [place] [address] 40161- 1366 Aug, [facility] [id number] [place] [address] 65390- 2604 Aug, Chronic osteomyelitis of right foot with draining sinus M86.471 [facility] [id number] [place] [address] 72035- 6993 Jul, [facility] [id number] [place] [address] 42254- 4686 Jul, [facility] [id number] [place] [address] 21238- 8223 Jul, Chronic kidney disease N18.9 [facility] [id number] [place] [address] 66293- 1790 Jul, Right ankle pain M25.571 [place] [id number] [place] [address] 38987- 4308 Jul, Non-healing ulcer of right foot, unspecified ulcer stage L97.519 [place] [id number] [place] [address] 33887- 7278 Jul, Chronic skin ulcer with fat layer exposed L98.492 [facility] [id number] [place] [address] 58256- 2644 Jul, Deformity of right ankle joint M21.961 [facility] [id number] [place] [address] 25811- 7750 Jun, [facility] [id number] [place] [address] 02653- 2916 Jun, Diabetes mellitus E11.9 ; Skin ulcer of right foot with fat layer exposed L97.512 and Encounter for immunization Z23 [facility] [id number] [place] [address] 00833- 7641 Jun, Right ankle pain M25.571 [facility] [id number] [place] [address] 80542- 4518 May, Right ankle pain M25.571 [facility] [id number] [place] [address] 59766- 9725 Apr, Right ankle pain M25.571 [facility] [id number] [place] [address] 08489- 8457 Mar, Right ankle pain M25.571 [facility] [id number] [place] [address] 47617- 2359 Mar, [facility] [id number] [place] [address] 39157- 5393 February, Diabetes mellitus E11.9 and Diabetic polyneuropathy associated with type 2 diabetes mellitus E11.42 [place] [id number] [place] [address] 42216- 5906 February, Hyperkalemia E87.5 [facility] [id number] [place] [address] 51205- 9972 February, Right ankle pain M25.571 [facility] [id number] [place] [address] 16702- 9304 Jan, Right ankle pain M25.571 [facility] [id number] [place] [address] 83246- 5193 Dec, Right ankle pain M25.571 [facility] [id number] [place] [address] 14550- 2283 Dec, Right ankle pain M25.571 [facility] [id number] [place] [address] 02937- 5017 Nov, [facility] [id number] [place] [address] 68082524- 3456 Nov, Diabetes mellitus E11.9 ; Hypertension I10 ; Gastroparesis K31.84 and Type 2 diabetes mellitus with diabetic autonomic (poly)neuropathy E11.43 [facility] [id number] [place] [address] 02512- 3291 Nov, Right ankle pain M25.571 [facility] [id number] [place] [address] 36869- 1461 Oct, Right ankle pain M25.571 [facility] [address] 72089- 2428 Oct, [facility] [id number] [place] [address] 20886- 5142 Oct, [place] [address] 81810- 1208 Sep, [place] [address] 67009- 3237 Sep, Hypertension I10 [place] [address] 14265- 6700 Sep, Chronic kidney disease N18.9 ; Right ankle pain M25.571 and GERD (gastroesophageal reflux disease) K21.9 [place] [address] 82013- 0579 Jul, [place] [id number] [place] [address] 60758- 1220 Jul, Encounter for immunization Z23 ; Venous insufficiency I87.2 and Diabetic polyneuropathy associated with type 2 diabetes mellitus E11.42 [facility] [id number] [place] [address] 24330- 0480 Jul, [place] [address] 92915- 7328 Jul, Diabetes mellitus E11.9 [facility] [id number] [place] [address] 14062- 3843 May, [place] [address] 49474- 7911 Apr, [facility] [address], [place] [address]- 3478 Mar, Right ankle pain M25.571 [facility] [address], [place] [address]- 5915 Mar, [facility] [address] [address]- 1895 February, Paresthesias R20.2 [facility] [id number] [address]- 2191 February, [facility] [id number] [place] [address] 80188- 3319 February, 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 [facility] [address], [place] [address]- 9986 February, Diabetes mellitus E11.9 [facility] [id number] [place] [address] 58002- 6760 February, [facility] [address], [place] [address]- 2563 February, Polyneuropathy in diabetes 357.2 and Paresthesias R20.2 [facility] [id number], [place] [address]- 1500 February, [facility] [address] [address]- 4484 February, [facility] [address], [place] [address]- 9880 February, [facility] [address], [place] [address]- 3214 February, Diabetes mellitus E11.9 [facility] [address], [place] [address]- 1176 February, [facility] [address], [place] [address]- 4744 February, Hyperkalemia E87.5 [facility] [id number] [place] [address] 27712- 1975 Jan, Hypertension I10 [facility] [id number] [place] [address] 11878- 1136 Jan, Insomnia G47.00 [facility] [id number] [place] [address] 95871- 1036 Jan, [facility] [id number] [place] [address] 90808- 4539 Jan, [facility] [id number] [place] [address] 41446- 5399 Jan, [facility] [id number] [place] [address] 85073- 3868 Dec, Right ankle pain M25.571 [facility] [address] 96210- 8595 Dec, GERD (gastroesophageal reflux disease) K21.9 [facility] [id number] [place] [address] 69541- 5167 Dec, Insomnia G47.00 [facility] [id number] [place] [address] 23217- 6518 Dec, Hypertension I10 and Hyperkalemia 276.7 [facility] [id number] [place] [address] 34963- 9162 Dec, Chronic kidney disease N18.9 [facility] [id number] [place] [address] 65602 2544 Dec, [facility] [id number] [place] [address] 10085- 4671 Dec, Hyperkalemia E87.5 [facility] [id number] [place] [address] 10886- 2416 Dec, Chronic kidney disease N18.9 and Right ankle pain M25.571 [facility] [id number] [address]- 4854 11 Nov, 2015 GERD (gastroesophageal reflux disease) K21.9 [facility] [id number] [place] [address] 78202- 3143 Nov, Right ankle pain M25.571 [facility] [id number] [place] [address] 98340- 7231 Nov, Diabetes mellitus E11.9 [facility] [id number] [place] [address] 05831- 1574 Oct, [facility] [id number] [place] [address] 25270- 5128 Oct, [facility] [id number] [place] [address] 62235- 3625 Oct, [facility] [id number] [place] [address] 12601- 8352 Oct, Hyperkalemia E87.5 [facility] [id number] [place] [address] 26134- 3627 Oct, [facility] [id number] [place] [address] 99859- 5279 Oct, Hyperkalemia E87.5 [facility] [id number] [place] [address] 90010- 3111 Sep, [facility] [id number] [place] [address] 13419- 5711 Sep, [facility] [address], [place] [address]- 6729 Sep, [facility] [id number] [place] [address] 57678- 9832 Sep, [facility] [address], [place] [address]- 9450 Sep, Right ankle pain M25.571 [facility] [id number] [address]- 8820 Aug, Chronic kidney disease N18.9 [facility] [id number] [place] [address] 57297- 6138 Aug, [facility] [id number] [place] [address] 89957- 6105 Aug, Hyperkalemia E87.5 [facility] [id number] [place] [address] 50461- 0788 Aug, [facility] [id number] [place] [address] 99177- 0978 Jul, [facility] [id number] [place] [address] 42058- 0143 Jul, [facility] [id number] [place] [address] 06010- 6138 Jul, [facility] [id number] [place] [address] 71275- 5052 Jul, Diabetes mellitus E11.9 ; Encounter for immunization Z23 ; Hypertension I10 and Hyperkalemia E87.5 [facility] [id number] [place] [address] 68366- 4801 Jul, [facility] [id number] [place] [address] 28252- 0403 Jul, Hyperkalemia E87.5 [facility] [id number] [place] [address] 54951- 2844 Jul, Hyperkalemia E87.5 [facility] [id number] [place] [address] 37397- 4051 Jun, [facility] [id number] [place] [address] 06136- 5260 Jun, [facility] [id number] [place] [address] 55108- 9333 Jun, [facility] [place] [facility] [address] [id number] [place] [address]- 3911 Jun, [facility] [place] [facility] [address] [id number] [place] [address]- 0040 May, [facility] [place] [facility] [address] [id number] [place] [address]- 1931 May, [facility] [place] [facility] [address] [id number] [place] [address]- 9830 May, [facility] [place] [facility] [address] [id number] [place] [address]- 6327 May, Hyperkalemia 276.7 [facility] [place] [facility] [address] [id number] [place] [address]- 3810 May, [facility] [place] [facility] [address] [id number] [place] [address]- 2736 Apr, Hyperkalemia 276.7 [facility] [place] [facility] [address] [id number] [place] [address]- 5263 Apr, [facility] [place] [facility] [address] [id number] [place] [address]- 5602 Apr, [facility] [place] [facility] [address] [id number] [place] [address]- 3166 Apr, [facility] [place] [facility] [address] [id number] [place] [address]- 9765 Apr, [facility] [place] [facility] [address] [id number] [place] [address]- 1032 Apr, Hyperkalemia 276.7 [facility] [place] [facility] [address] [id number] [place] [address] 2549 Apr, [facility] [place] [facility] [address] [id number] [place] [address]- 1617 Apr, [facility] [place] [facility] [address] [id number] [place] [address]- 5255 Mar, [facility] [address] [facility] [id number] [address]- 3672 Mar, Hyperkalemia 276.7 [facility] [address] [place] [address]- 7696 Mar, Hyperkalemia 276.7 [facility] [address], [place] [address]- 9733 Mar, [facility] [address] [address]- 8935 Mar, [facility] [address] [address]- 7110 Mar, [facility] [address], [place] [address]- 1076 Mar, [facility] [address] [address]- 7991 Mar, Anserine bursitis 726.61 [facility] [address] [address]- 9474 Mar, Asthma 493.90 and Hyperkalemia 276.7 [facility] [address] [address]- 7125 Mar, [facility] [address] [address]- 1154 February, [facility] [address] [address]- 0779 February, [facility] [id number] [address]- 4629 February, [facility] [address], [place] [address]- 1573 February, [facility] [id number] [address]- 9456 February, [facility] [address], [place] [address]- 6660 February, [facility] [place] [facility] [address] [id number] [place] [address]- 6666 February, [facility] [place] [facility] [address] [id number] [place] [address]- 1680 February, [facility] [place] [facility] [address] [id number] [place] [address]- 5152 February, [facility] [place] [facility] [address] [id number] [place] [address]- 1721 Jan, [facility] [place] [facility] [address] [id number] [place] [address]- 7004 Jan, [facility] [place] [facility] [address] [id number] [place] [address]- 6229 Dec, [facility] [place] [facility] [address] [id number] [place] [address]- 3993 Dec, [facility] [place] [facility] [address] [id number] [place] [address]- 5546 Dec, [facility] [place] [facility] [address] [id number] [place] [address]- 2430 Dec, [facility] [place] [facility] [address] [id number] [place] [address]- 1100 Dec, [facility] [place] [facility] [address] [id number] [place] [address]- 0388 Dec, [facility] [place] [facility] [address] [id number] [place] [address]- 3077 Dec, [facility] [place] [facility] [address] [id number] [place] [address]- 7958 Dec, [facility] [place] [facility] [address] [id number] [place] [address]- 1441 Dec, [facility] [place] [facility] [address] [id number] [place] [address]- 3388 Dec, [facility] [place] [facility] [address] [id number] [place] [address]- 0442 Dec, [facility] [place] [facility] [address] [id number] [place] [address]- 9597 Dec, [facility] [place] [facility] [address] [id number] [place] [address]- 8111 Dec, [facility] [place] [facility] [address] [id number] [place] [address]- 9657 Dec, [facility] [place] [facility] [address] [id number] [place] [address]- 4877 Nov, [facility] [place] [facility] [address] [id number] [place] [address]- 8741 Nov, [facility] [place] [facility] [address] [id number] [place] [address]- 0923 Nov, [facility] [place] [facility] [address] [id number] [place] [address]- 2715 Nov, [facility] [place] [facility] [address] [id number] [place] [address]- 6764 Nov, [facility] [place] [facility] [address] [facility] [id number] [place] [address]- 9071 Nov, [facility] [place] [facility] [address] [id number] [place] [address]- 3150 Oct, [facility] [place] [facility] [address] [id number] [place] [address] Oct, [facility] [place] [facility] [address] [id number] [place] [address] Oct, [facility] [place] [facility] [address] [id number] [place] [address] Oct, [facility] [place] [facility] [address] [id number] [place] [address] Oct, [facility] [place] [facility] [address] [id number] [place] [address] Oct, [facility] [place] [facility] [address] [id number] [place] [address] Sep, [facility] [place] [facility] [address] [id number] [place] [address] Sep, [facility] [place] [facility] [address] [id number] [place] [address] Sep, [facility] [place] [facility] [address] [id number] [place] [address] Sep, [facility] [place] [facility] [address] [id number] [place] [address] Sep, [facility] [place] [facility] [address] [id number] [place] [address] Sep, [facility] [place] [facility] [address] [id number] [place] [address] Aug, [facility] [place] [facility] [address] [id number] [place] [address] Aug, [facility] [place] [facility] [address] [id number] [place] [address] Aug, [facility] [place] [facility] [address] [id number] [place] [address] Aug, [facility] [place] [facility] [address] [id number] [place] [address] Aug, [facility] [place] [facility] [address] [id number] [place] [address] Aug, [facility] [place] [facility] [address] [id number] [place] [address] Jul, [facility] [place] [facility] [address] [id number] [place] [address] Jul, [facility] [place] [facility] [address] [id number] [place] [address] Jul, [facility] [place] [facility] [address] [id number] [place] [address] Jul, 2013 [facility] [place] [facility] [address] [id number] [place] [address] Jul, [facility] [place] [facility] [address] [id number] [place] [address] Jul, [facility] [place] [facility] [address] [id number] [place] [address] Jul, [facility] [place] [facility] [address] [id number] [place] [address] Jul, [facility] [place] [facility] [address] [id number] [place] [address] Jul, [facility] [place] [facility] [address] [id number] [place] [address] Jul, [facility] [place] [facility] [address] [id number] [place] [address] Jul, [facility] [place] [facility] [address] [id number] [place] [address] Jun, [facility] [place] [facility] [address] [id number] [place] [address] Jun, [facility] [place] [facility] [address] [id number] [place] [address] Jun, [facility] [place] [facility] [address] [id number] [place] [address] Jun, [facility] [place] [facility] [address] [id number] [place] [address] Apr, [facility] [place] [facility] [address] [id number] [place] [address] Apr, [facility] [place] [facility] [address] [id number] [place] [address] Apr, [facility] [place] [facility] [address] [id number] [place] [address] Apr, [facility] [address] [facility] [id number] [address] Mar, [facility] [address] [id number] [address] Mar, [facility] [address] [id number] [address] Mar, [facility] [id number] [address] Mar, [facility] [address] [id number] [address] Mar, [facility] [id number] [address] Sep, [facility] [id number] [address] Sep, [facility] [address] [id number], [place] [address] Aug, IMMUNIZATIONS No Known Immunizations SOCIAL HISTORY Never Assessed REASON FOR VISIT PLAN OF CARE VITAL SIGNS MEDICATIONS Medication Instructions Dosage Frequency Start Date End Date Duration Status Furosemide 40 mg Orally Once a day 2 tablet 24h 30 Active RESULTS No Results PROCEDURES No Known [...]
--- OUTSIDE RECORDS SUMMARY | 2018-07-12 09:15 | XMS REPORT ---
Author Author OLYA WILLIS Organization [facility] Address [address] [place] [address] Care Team Providers Care Starter Cup Powder Mixer Name Role Phone OLYA WILLIS Unavailable PROBLEMS Type Condition ICD9-CM Code [id number] Code Onset Dates Condition Status SNOMED Code Problem GERD (gastroesophageal reflux disease) K21.9 Active 695556394 Problem Type 2 diabetes mellitus with diabetic autonomic (poly)neuropathy E11.43 Active 039894972 Problem Gastroparesis K31.84 Active 170081086 Problem Unsteady gait R26.81 Active 01434301 Problem Pressure ulcer of unspecified heel, stage 4 L89.604 Active 203430467 Problem Chronic osteomyelitis of right foot with draining sinus M86.471 Active 436709463552416 Problem Chronic skin ulcer with fat layer exposed L98.492 Active 52105150 Problem Non-pressure chronic ulcer of right heel and midfoot with unspecified severity L97.419 Active 324874489 Problem Type 2 diabetes mellitus with foot ulcer E11.621 Active 87007074816607 Problem Chronic kidney disease N18.9 Active 269743105 Problem Paresthesias R20.2 Active 19946362 Problem Hypertension I10 Active 20924326 Problem Diabetic polyneuropathy associated with type 2 diabetes mellitus E11.42 Active 20838583 Problem Diabetes mellitus E11.9 Active 39323124 Problem Venous insufficiency I87.2 Active 65712405 ALLERGIES No Information ENCOUNTERS Encounter Location Date Diagnosis [facility] [address] [facility] [id number] [address] May, [facility] [address] [id number] [address] 8264 Apr, [facility] [address] [facility] [id number] [address] Apr, Type 2 diabetes mellitus with foot ulcer E11.621 and Unsteady gait R26.81 [place] [address] [address] Mar, Decubitus ulcer of right heel, stage 3 L89.613 [place] [id number] [place] [address] 02228- 2966 Mar, [place] [id number] [place] [address] 80445- 2393 Mar, Pressure ulcer of unspecified heel, stage 4 L89.604 and Type 2 diabetes mellitus with foot ulcer E11.621 [place] [id number] [place] [address] 41287- 0522 Mar, Encounter for medication monitoring Z51.81 [place] [id number] [place] [address] 94319- 8825 Mar, Type 2 diabetes mellitus with foot ulcer E11.621 and Non- pressure chronic ulcer of right heel and midfoot with unspecified severity L97.419 [place] [id number] [place] [address] 68166- 9925 February, [place] [id number] [place] [address] 42211- 7115 Jan, Right ankle pain M25.571 [place] [id number] [place] [address] 76425- 6473 Dec, Right ankle pain M25.571 [place] [id number] [place] [address] 61369- 1679 Dec, [place] [id number] [place] [address] 26192- 8196 Dec, [place] [id number] [place] [address] 26473- 0640 Dec, Right ankle pain M25.571 [place] [id number] [place] [address] 59641- 0147 Dec, Chronic skin ulcer with fat layer exposed L98.492 ; Type 2 diabetes mellitus with diabetic autonomic (poly)neuropathy E11.43 and Hypertension I10 [facility] [id number] [place] [address] 29627- 9152 Nov, [facility] [id number] [place] [address] 54398- 0786 Nov, [facility] [id number] [place] [address] 01055- 1087 Nov, [facility] [id number] [place] [address] 58920- 9226 Nov, Right ankle pain M25.571 and Chronic osteomyelitis of right foot with draining sinus M86.471 [facility] [id number] [place] [address] 01546- 8447 Oct, Right ankle pain M25.571 [facility] [id number] [place] [address] 23906- 1067 Oct, [facility] [id number] [place] [address] 70922- 7799 Sep, Diabetes mellitus E11.9 [facility] [id number] [place] [address] 84580- 3283 Sep, Diabetic polyneuropathy associated with type 2 diabetes mellitus E11.42 and Venous insufficiency I87.2 [facility] [id number] [place] [address] 22251- 8383 Sep, Right ankle pain M25.571 [facility] [id number] [place] [address] 75515- 3592 Aug, Right ankle pain M25.571 [facility] [id number] [place] [address] 53375- 9732 Aug, Chronic osteomyelitis of right foot with draining sinus M86.471 [facility] [id number] [place] [address] 42818- 1057 Aug, [facility] [id number] [place] [address] 98353- 6389 Aug, [facility] [id number] [place] [address] 05882- 9338 Aug, Chronic osteomyelitis of right foot with draining sinus M86.471 [facility] [id number] [place] [address] 27069- 3218 Jul, [facility] [address] 91175- 8342 Jul, [facility] [id number] [place] [address] 89461- 9476 Jul, Chronic kidney disease N18.9 [place] [id number] [place] [address] 81393- 4097 Jul, Right ankle pain M25.571 [place] [address] 16647- 4670 Jul, Non-healing ulcer of right foot, unspecified ulcer stage L97.519 [place] [address] 11609- 6812 Jul, Chronic skin ulcer with fat layer exposed L98.492 [place] [id number] [place] [address] 30955- 0609 Jul, Deformity of right ankle joint M21.961 [place] [id number] [place] [address] 47497- 2678 Jun, [place] [id number] [place] [address] 42555- 0903 Jun, Diabetes mellitus E11.9 ; Skin ulcer of right foot with fat layer exposed L97.512 and Encounter for immunization Z23 [facility] [id number] [place] [address] 73607- 6526 Jun, Right ankle pain M25.571 [place] [address] 81996- 4363 May, Right ankle pain M25.571 [place] [id number] [place] [address] 48778- 5979 Apr, Right ankle pain M25.571 [facility] [id number] [place] [address] 58669- 5588 Mar, Right ankle pain M25.571 [place] [address] 23897- 4823 Mar, [place] [id number] [place] [address] 26645- 3899 February, Diabetes mellitus E11.9 and Diabetic polyneuropathy associated with type 2 diabetes mellitus E11.42 [place] [id number] [place] [address] 68737- 9105 February, Hyperkalemia E87.5 [place] [id number] [place] [address] 27017- 3699 February, Right ankle pain M25.571 [place] [id number] [place] [address] 34395- 9951 Jan, Right ankle pain M25.571 [place] [id number] [place] [address] 37994- 7843 Dec, Right ankle pain M25.571 [place] [id number] [place] [address] 40845- 2076 Dec, Right ankle pain M25.571 [place] [id number] [place] [address] 09080- 5793 Nov, [place] [id number] [place] [address] 64284- 8529 Nov, Diabetes mellitus E11.9 ; Hypertension I10 ; Gastroparesis K31.84 and Type 2 diabetes mellitus with diabetic autonomic (poly)neuropathy E11.43 [place] [id number] [place] [address] 50685- 2241 Nov, Right ankle pain M25.571 [facility] [id number] [place] [address] 03402- 0573 Oct, Right ankle pain M25.571 [facility] [id number] [place] [address] 12128- 2417 Oct, [facility] [id number] [place] [address] 22538- 8049 Oct, [facility] [id number] [place] [address] 44359- 0753 Sep, [facility] [id number] [place] [address] 96656- 5027 Sep, Hypertension I10 [place] [id number] [place] [address] 66924- 2709 Sep, Chronic kidney disease N18.9 ; Right ankle pain M25.571 and GERD (gastroesophageal reflux disease) K21.9 [facility] [id number] [place] [address] 33239- 0117 Jul, [facility] [id number] [place] [address] 96183- 1191 Jul, Encounter for immunization Z23 ; Venous insufficiency I87.2 and Diabetic polyneuropathy associated with type 2 diabetes mellitus E11.42 [facility] [id number] [place] [address] 11682- 6720 Jul, [facility] [id number] [place] [address] 45497- 7628 Jul, Diabetes mellitus E11.9 [facility] [id number] [place] [address] 85403- 5605 May, [facility] [id number] [place] [address] 52125- 3048 Apr, [facility] [id number] [place] [address] 56587- 5210 Mar, Right ankle pain M25.571 [facility] [address] [address]- 1543 Mar, [facility] [address] [place] [address] 99755- 2070 February, Paresthesias R20.2 [facility] [id number] [place] [address] 86102- 1595 February, [facility] [id number] [place] [address] 57558- 8085 February, 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 [facility] [id number] [place] [address] 89000- 6367 February, Diabetes mellitus E11.9 [facility] [id number] [place] [address] 28911- 7520 February, [facility] [id number] [place] [address] 40217- 3991 February, Polyneuropathy in diabetes 357.2 and Paresthesias R20.2 [facility] [id number] [place] [address] 23107- 2017 February, [facility] [id number] [place] [address] 24365- 7439 February, [facility] [address] [place] [address] 06109- 1078 February, [facility] [id number] [place] [address] 78422- 8141 February, Diabetes mellitus E11.9 [facility] [address] [place] [address] 41438- 4901 February, [facility] [id number] [place] [address] 60186- 4636 February, Hyperkalemia E87.5 [facility] [id number] [place] [address] 54801- 8266 Jan, Hypertension I10 [facility] [id number] [place] [address] 58847- 1493 Jan, Insomnia G47.00 [facility] [id number] [place] [address] 64887- 4668 Jan, [facility] [id number] [place] [address] 44989- 7017 Jan, [facility] [address] 90168- 0594 Jan, [facility] [address] 61232- 2946 Dec, Right ankle pain M25.571 [facility] [address] 15325- 3880 Dec, GERD (gastroesophageal reflux disease) K21.9 [facility] [address] 10360- 7696 Dec, Insomnia G47.00 [facility] [id number] [place] [address] 39690- 0062 Dec, Hypertension I10 and Hyperkalemia 276.7 [facility] [id number] [place] [address] 77073- 1382 Dec, Chronic kidney disease N18.9 [facility] [id number] [place] [address] 86668- 1816 Dec, [facility] [id number] [place] [address] 46026- 8269 Dec, Hyperkalemia E87.5 [facility] [id number] [place] [address] 50465- 8239 Dec, Chronic kidney disease N18.9 and Right ankle pain M25.571 [facility] [id number] [place] [address] 25586- 3024 Nov, GERD (gastroesophageal reflux disease) K21.9 [facility] [address] [place] [address] 71944- 8026 Nov, Right ankle pain M25.571 [facility] [id number] [place] [address] 19581- 5832 Nov, Diabetes mellitus E11.9 [facility] [id number] [place] [address] 60509- 8345 Oct, [facility] [id number] [place] [address] 79814- 0072 Oct, [facility] [id number] [place] [address] 10489- 6884 Oct, [facility] [id number] [place] [address] 38944- 5575 Oct, Hyperkalemia E87.5 [facility] [id number] [place] [address] 42502- 5045 Oct, [facility] [id number] [place] [address] 36694- 3575 Oct, Hyperkalemia E87.5 [facility] [id number] [place] [address] 27450- 7075 Sep, [facility] [id number] [place] [address] 32128- 1919 Sep, [facility] [id number] [place] [address] 31385- 2541 Sep, [facility] [id number] [place] [address] 28558- 6193 Sep, [facility] [id number] [place] [address] 58865- 0170 Sep, Right ankle pain M25.571 [facility] [id number] [place] [address] 47740- 2302 Aug, Chronic kidney disease N18.9 [facility] [address] [address]- 3807 Aug, [facility] [id number] [place] [address] 76554- 9894 Aug, Hyperkalemia E87.5 [facility] [id number] [place] [address] 88919- 5119 Aug, [facility] [id number] [place] [address] 70672- 9762 Jul, [facility] [id number] [place] [address] 48818- 9244 Jul, [facility] [id number] [place] [address] 01096- 5062 Jul, [facility] [id number] [place] [address] 09553- 0552 Jul, Diabetes mellitus E11.9 ; Encounter for immunization Z23 ; Hypertension I10 and Hyperkalemia E87.5 [facility] [id number] [place] [address] 44262- 1198 Jul, [facility] [id number] [place] [address] 86093- 2373 Jul, Hyperkalemia E87.5 [facility] [id number] [place] [address] 71325- 0529 Jul, Hyperkalemia E87.5 [facility] [address] [address]- 6232 28 Jun, 2015 [facility] [id number] [place] [address] 52505- 6524 Jun, [facility] [id number] [place] [address] 09081- 4057 15 Jun, 2015 [facility] [address] [place] [address] 45518- 4009 11 Jun, 2015 [facility] [address] [id number] [place] [address]- 5106 May, [facility] [place] [facility] [address] [id number] [place] [address]- 8845 May, [facility] [place] [facility] [address] [id number] [place] [address]- 4716 May, [facility] [place] [facility] [address] [facility] [id number] [place] [address]- 7813 May, Hyperkalemia 276.7 [facility] [place] [facility] [address] [id number] [place] [address] 254 May, [facility] [place] [facility] [address] [id number] [place] [address]- 7567 Apr, Hyperkalemia 276.7 [facility] [place] [facility] [address] [facility] [id number] [place] [address]- 2639 Apr, [facility] [place] [facility] [address] [id number] [place] [address]- 9040 Apr, [facility] [place] [facility] [address] [id number] [place] [address]- 6836 Apr, [facility] [place] [facility] [address] [id number] [place] [address]- 7775 Apr, [facility] [place] [facility] [address] [facility] [id number] [place] [address]- 3726 Apr, Hyperkalemia 276.7 [facility] [place] [facility] [address] [id number] [place] [address] 2544 Apr, [facility] [place] [facility] [address] [id number] [place] [address]- 8052 Apr, [facility] [place] [facility] [address] [id number] [place] 2219 Mar, [facility] [place] [facility] [address] [id number] [place] [address]- 2547 Mar, Hyperkalemia 276.7 [facility] [address] [facility] [id number] [address]- 2483 Mar, Hyperkalemia 276.7 [facility] [id number] [address]- 6763 Mar, [facility] [id number] [address]- 9601 Mar, [facility] [id number] [address]- 0103 Mar, [facility] [id number] [address]- 2601 Mar, [facility] [address] [address]- 5777 Mar, Anserine bursitis 726.61 [facility] [address] [address]- 0324 Mar, Asthma 493.90 and Hyperkalemia 276.7 [facility] [address] [address]- 5905 Mar, [facility] [address] [address]- 2998 February, [facility] [id number] [address]- 1920 February, [facility] [id number] [address]- 6637 February, [facility] [id number] [address]- 8173 February, [facility] [id number] [address]- 4459 February, [facility] [id number] [address]- 6074 February, [facility] [address] [address]- 5653 February, [facility] [place] [facility] [address] [id number] [place] [address]- 4334 February, [facility] [place] [facility] [address] [id number] [place] [address]- 6845 February, [facility] [place] [facility] [address] [id number] [place] [address]- 1567 Jan, [facility] [place] [facility] [address] [id number] [place] [address]- 6259 Jan, [facility] [place] [facility] [address] [id number] [place] [address]- 5645 Dec, [facility] [place] [facility] [address] [id number] [place] [address]- 0816 Dec, [facility] [place] [facility] [address] [id number] [place] [address]- 5793 Dec, [facility] [place] [facility] [address] [id number] [place] [address]- 3192 Dec, [facility] [place] [facility] [address] [id number] [place] [address]- 5817 Dec, [facility] [place] [facility] [address] [id number] [place] [address]- 3776 Dec, [facility] [place] [facility] [address] [id number] [place] [address]- 6065 Dec, [facility] [place] [facility] [address] [id number] [place] [address]- 2309 Dec, [facility] [place] [facility] [address] [id number] [place] [address]- 5617 Dec, [facility] [place] [facility] [address] [id number] [place] [address]- 8889 Dec, [facility] [place] [facility] [address] [id number] [place] [address] Dec, [facility] [place] [facility] [address] [id number] [place] [address] Dec, [facility] [place] [facility] [address] [id number] [place] [address] Dec, [facility] [place] [facility] [address] [id number] [place] [address] Dec, [facility] [place] [facility] [address] [id number] [place] [address] Nov, [facility] [place] [facility] [address] [id number] [place] [address] Nov, [facility] [place] [facility] [address] [id number] [place] [address] Nov, [facility] [place] [facility] [address] [id number] [place] [address] Nov, [facility] [place] [facility] [address] [id number] [place] [address] Nov, [facility] [place] [facility] [address] [id number] [place] [address] Nov, [facility] [place] [facility] [address] [facility] [id number] [place] [address] Oct, [facility] [place] [facility] [address] [id number] [place] [address] Oct, [facility] [place] [facility] [address] [id number] [place] [address] Oct, [facility] [place] [facility] [address] [id number] [place] [address] Oct, [facility] [place] [facility] [address] [id number] [place] [address] Oct, [facility] [place] [facility] [address] [id number] [place] [address] Oct, [facility] [place] [facility] [address] [id number] [place] [address] 30 Sep, 2014 [facility] [place] [facility] [address] [id number] [place] [address] 30 Sep, 2014 [facility] [place] [facility] [address] [id number] [place] [address] Sep, [facility] [place] [facility] [address] [id number] [place] [address] Sep, [facility] [place] [facility] [address] [id number] [place] [address] Sep, [facility] [place] [facility] [address] [id number] [place] [address] Sep, [facility] [place] [facility] [address] [id number] [place] [address] Aug, [facility] [place] [facility] [address] [id number] [place] [address] Aug, [facility] [place] [facility] [address] [id number] [place] [address] Aug, [facility] [place] [facility] [address] [id number] [place] [address] Aug, [facility] [place] [facility] [address] [id number] [place] [address] Aug, [facility] [place] [facility] [address] [id number] [place] [address] Aug, [facility] [place] [facility] [address] [id number] [place] [address] Jul, [facility] [place] [facility] [address] [id number] [place] [address] Jul, [facility] [place] [facility] [address] [id number] [place] [address] Jul, [facility] [place] [facility] [address] [id number] [place] [address] Jul, [facility] [place] [facility] [address] [id number] [place] [address] Jul, [facility] [place] [facility] [address] [id number] [place] [address] Jul, [facility] [place] [facility] [address] [id number] [place] [address] Jul, [facility] [place] [facility] [address] [id number] [place] [address] Jul, [facility] [place] [facility] [address] [id number] [place] [address] Jul, [facility] [place] [facility] [address] [id number] [place] [address] Jul, [facility] [place] [facility] [address] [id number] [place] [address] Jul, [facility] [place] [facility] [address] [id number] [place] [address] Jun, [facility] [place] [facility] [address] [id number] [place] [address] Jun, [facility] [place] [facility] [address] [id number] [place] [address] Jun, [facility] [place] [facility] [address] [id number] [place] [address] Jun, [facility] [place] [facility] [address] [id number] [place] [address] Apr, [facility] [place] [facility] [address] [id number] [place] [address] Apr, [facility] [place] [facility] [address] [id number] [place] [address] Apr, [facility] [place] [facility] [address] [id number] [place] [address] Apr, [facility] [place] [facility] [address] [id number] [place] [address] Mar, [facility] [address] [facility] [id number] [address] Mar, [facility] [address] [id number] [address] Mar, [facility] [address] [facility] [id number] [address] Mar, [facility] [address] [id number] [address] Mar, [facility] [address] [id number] [address] Sep, [facility] [address] [id number] [address] Sep, [facility] [address] [id number], [place] [address] Aug, IMMUNIZATIONS No Known Immunizations SOCIAL HISTORY Never Assessed REASON FOR VISIT Oxycodone 02/28 PLAN OF CARE VITAL SIGNS MEDICATIONS Medication Instructions Dosage Frequency Start Date End Date Duration Status Oxycodone HCl 5 mg Orally every 6 hrs 1 tablet as needed 6h February, Mar, 28 days Active RESULTS No Results [...]
--- OUTSIDE RECORDS SUMMARY | 2018-07-12 09:16 | XMS REPORT ---
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 Active 455195597 Problem Chronic skin ulcer with fat layer exposed L98.492 Active 67572651 Problem Type 2 diabetes mellitus with diabetic autonomic (poly)neuropathy E11.43 Active 967678155 Problem Type 2 diabetes mellitus with foot ulcer E11.621 Active 51053309790559 Problem Chronic osteomyelitis of right foot with draining sinus M86.471 Active 875771049860618 Problem Diabetes mellitus E11.9 Active 30710772 Problem Chronic kidney disease N18.9 Active 170048393 Problem Paresthesias R20.2 Active 16286669 Problem Hypertension I10 Active 61133610 Problem Diabetic polyneuropathy associated with type 2 diabetes mellitus E11.42 Active 40541363 ALLERGIES No Information ENCOUNTERS Encounter Location Date Diagnosis [facility] [id number] [address] Apr, [facility] [id number] [address] Mar, Decubitus ulcer of right heel, stage 3 L89.613 [facility] [address] [id number] [address] 6[address] Mar, [facility] [id number] [place] [address] 91890- 2234 Mar, Pressure ulcer of unspecified heel, stage 4 L89.604 and Type 2 diabetes mellitus with foot ulcer E11.621 [facility] [id number] [place] [address] 46940- 4362 Mar, Encounter for medication monitoring Z51.81 [facility] [address] [address]- 5705 Mar, Type 2 diabetes mellitus with foot ulcer E11.621 and Non- pressure chronic ulcer of right heel and midfoot with unspecified severity L97.419 [facility] [address] [address]- [address] February, [facility] [facility] [address] 10663- 9155 Jan, Right ankle pain M25.571 [facility] [address] 27819- 5927 Dec, Right ankle pain M25.571 [facility] [id number] [place] [address] 56300- 2684 Dec, [facility] [id number] [place] [address] 24486- 7987 Dec, [facility] [facility] [id number] [place] [address] 94996- 8480 Dec, Right ankle pain M25.571 [place] [address] 44391- 1654 Dec, Chronic skin ulcer with fat layer exposed L98.492 ; Type 2 diabetes mellitus with diabetic autonomic (poly)neuropathy E11.43 and Hypertension I10 [facility] [id number] [place] [address] 09119- 9983 Nov, [facility] [id number] [place] [address] 17239- 6272 Nov, [facility] [id number] [place] [address] 86921- 9424 Nov, [facility] [id number] [place] [address] 13425- 9348 Nov, Right ankle pain M25.571 and Chronic osteomyelitis of right foot with draining sinus M86.471 [facility] [id number] [place] [address] 49320- 6275 Oct, Right ankle pain M25.571 [facility] [id number] [place] [address] 35862- 3286 Oct, [place] [address] 44597- 6685 Sep, Diabetes mellitus E11.9 [facility] [id number] [place] [address] 24228- 8455 Sep, Diabetic polyneuropathy associated with type 2 diabetes mellitus E11.42 and Venous insufficiency I87.2 [facility] [id number] [place] [address] 18122- 7868 Sep, Right ankle pain M25.571 [facility] [id number] [place] [address] 85216- 9898 Aug, Right ankle pain M25.571 [facility] [facility] [id number] [place] [address] 87677- 4370 Aug, Chronic osteomyelitis of right foot with draining sinus M86.471 [facility] [id number] [place] [address] 19977- 7151 Aug, [place] [id number] [place] [address] 97960- 9169 Aug, [place] [id number] [place] [address] 61170- 5349 Aug, Chronic osteomyelitis of right foot with draining sinus M86.471 [facility] [id number] [place] [address] 75025- 4595 Jul, [place] [id number] [place] [address] 96892- 2080 Jul, [place] [id number] [place] [address] 04389- 9420 Jul, Chronic kidney disease N18.9 [facility] [address] 96975- 8301 Jul, Right ankle pain M25.571 [place] [address] 08455- 5648 Jul, Non-healing ulcer of right foot, unspecified ulcer stage L97.519 [place] [address] 06154- 9759 Jul, Chronic skin ulcer with fat layer exposed L98.492 [place] [address] 79616- 4719 Jul, Deformity of right ankle joint M21.961 [place] [id number] [place] [address] 91026- 5974 Jun, [place] [address] 33742- 0646 Jun, Diabetes mellitus E11.9 ; Skin ulcer of right foot with fat layer exposed L97.512 and Encounter for immunization Z23 [facility] [id number] [place] [address] 47507- 5888 Jun, Right ankle pain M25.571 [place] [address] 12056- 4595 May, Right ankle pain M25.571 [place] [address] 14662- 9000 Apr, Right ankle pain M25.571 [place] [id number] [place] [address] 27947- 0166 Mar, Right ankle pain M25.571 [facility] [id number] [place] [address] 03418- 2391 Mar, [facility] [id number] [place] [address] 42399- 0596 February, Diabetes mellitus E11.9 and Diabetic polyneuropathy associated with type 2 diabetes mellitus E11.42 [facility] [facility] [id number] [place] [address] 98766- 9088 February, Hyperkalemia E87.5 [facility] [id number] [place] [address] 99837- 0044 February, Right ankle pain M25.571 [place] [id number] [place] [address] 34992- 3330 Jan, Right ankle pain M25.571 [place] [id number] [place] [address] 62979- 6341 Dec, Right ankle pain M25.571 [place] [id number] [place] [address] 15207- 0164 Dec, Right ankle pain M25.571 [place] [id number] [place] [address] 52634- 2121 Nov, [place] [id number] [place] [address] 10383- 9930 Nov, Diabetes mellitus E11.9 ; Hypertension I10 ; Gastroparesis K31.84 and Type 2 diabetes mellitus with diabetic autonomic (poly)neuropathy E11.43 [place] [id number] [place] [address] 97625- 1875 Nov, Right ankle pain M25.571 [place] [id number] [place] [address] 98578- 6710 Oct, Right ankle pain M25.571 [facility] [id number] [place] [address] 03816- 5363 Oct, [facility] [id number] [place] [address] 63687- 0746 Oct, [facility] [id number] [place] [address] 37001- 2561 Sep, [facility] [id number] [place] [address] 28426- 2608 Sep, Hypertension I10 [facility] [address] 91490- 7292 Sep, Chronic kidney disease N18.9 ; Right ankle pain M25.571 and GERD (gastroesophageal reflux disease) K21.9 [facility] [address] 25833- 0716 Jul, [facility] [address] 13740- 2251 Jul, Encounter for immunization Z23 ; Venous insufficiency I87.2 and Diabetic polyneuropathy associated with type 2 diabetes mellitus E11.42 [facility] [id number] [place] [address] 40665- 5840 Jul, [facility] [address] 01237- 8090 Jul, Diabetes mellitus E11.9 [facility] [id number] [place] [address] 20134- 1316 May, [facility] [id number] [place] [address] 11283- 1748 Apr, [facility] [id number] [place] [address] 14949- 6069 Mar, Right ankle pain M25.571 [facility] [address] 61085- 7692 Mar, [facility] [id number] [place] [address] 59797- 0194 February, Paresthesias R20.2 [facility] [address] [place] [address]- 0205 February, [facility] [id number] [place] [address] 27563- 9064 February, 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 [facility] [id number] [place] [address] 51944- 5066 February, Diabetes mellitus E11.9 [facility] [address] 67570- 0044 February, [facility] [id number] [place] [address] 80851- 2499 February, Polyneuropathy in diabetes 357.2 and Paresthesias R20.2 [facility] [id number] [place] [address] 20822- 4174 February, [facility] [address] 79742- 3369 February, [facility] [id number] [place] [address] 22114- 6719 February, [facility] [id number] [place] [address] 82713- 9418 February, Diabetes mellitus E11.9 [facility] [id number] [place] [address] 59792- 1529 February, [facility] [id number] [place] [address] 59443- 9138 February, Hyperkalemia E87.5 [facility] [id number] [place] [address] 04965- 9620 Jan, Hypertension I10 [facility] [id number] [place] [address] 66085- 9298 Jan, Insomnia G47.00 [facility] [id number] [place] [address] 08647- 8453 Jan, [facility] [id number] [place] [address] 09704- 3701 Jan, [facility] [address] [place] [address] 12446- 8761 Jan, [facility] [id number] [place] [address] 992504- 4646 Dec, Right ankle pain M25.571 [facility] [id number] [place] [address] 55859- 2656 Dec, GERD (gastroesophageal reflux disease) K21.9 [facility] [id number] [place] [address] 05864- 9724 Dec, Insomnia G47.00 [place] [id number] [place] [address] 64207- 1831 Dec, Hypertension I10 and Hyperkalemia 276.7 [place] [id number] [place] [address] 22103- 5321 Dec, Chronic kidney disease N18.9 [facility] [id number] [place] [address] 77565- 7372 Dec, [facility] [id number] [place] [address] 58918- 7463 Dec, Hyperkalemia E87.5 [place] [id number] [place] [address] 86231- 8523 Dec, Chronic kidney disease N18.9 and Right ankle pain M25.571 [facility] [id number] [place] [address] 99840- 8012 Nov, GERD (gastroesophageal reflux disease) K21.9 [facility] [id number] [place] [address] 97632- 1246 Nov, Right ankle pain M25.571 [facility] [id number] [place] [address] 57388- 4108 Nov, Diabetes mellitus E11.9 [facility] [address] [address]- 2543 Oct, [facility] [address] [address]- 6685 Oct, [facility] [address] [address]- 4026 Oct, [facility] [address] [place] [address] 21955- 7623 Oct, Hyperkalemia E87.5 [facility] [address] [place] [address] 35967- 5509 Oct, [facility] [id number] [place] [address] 72966- 1536 Oct, Hyperkalemia E87.5 [facility] [id number] [place] [address] 50027- 7472 Sep, [facility] [address] [address]- 4146 Sep, [facility] [address] [address]- 7883 Sep, [facility] [address] [place] [address] 32745- 4323 Sep, [facility] [address] [address]- 1081 Sep, Right ankle pain M25.571 [facility] [address] [address]- 0588 30 Aug, 2015 Chronic kidney disease N18.9 [facility] [address] [address]- 5569 Aug, [facility] [address] [address]- 2542 Aug, Hyperkalemia E87.5 [facility] [id number] [place] [address] 24123- 9197 Aug, [facility] [id number] [place] [address] 20611- 2278 Jul, [facility] [id number] [place] [address] 88854- 0070 Jul, [facility] [id number] [place] [address] 26745- 3101 Jul, [facility] [id number] [place] [address] 52885- 7294 Jul, Diabetes mellitus E11.9 ; Encounter for immunization Z23 ; Hypertension I10 and Hyperkalemia E87.5 [facility] [id number] [place] [address] 60517- 6606 Jul, [facility] [id number] [place] [address] 97307- 8804 Jul, Hyperkalemia E87.5 [facility] [id number] [place] [address] 52125- 3437 Jul, Hyperkalemia E87.5 [facility] [id number] [place] [address] 14707- 3876 Jun, [facility] [id number] [place] [address] 42476- 8955 Jun, [facility] [id number] [place] [address] 70571- 5559 15 Jun, 2015 [facility] [id number] [place] [address] 38305- 2897 Jun, [facility] [id number] [place] [address] 05524- 1866 May, [facility] [id number] [place] [address] 13309- 6075 May, [facility] [id number] [place] [address] 62182- 7944 May, [facility] [address] [facility] [id number] [place] [address]- 3268 May, Hyperkalemia 276.7 [facility] [place] [facility] [address] [facility] [id number] [place] [address]- 0422 May, [facility] [place] [facility] [address] [facility] [id number] [place] [address]- 8043 Apr, Hyperkalemia 276.7 [facility] [place] [facility] [address] [facility] [id number] [place] [address]- 4026 Apr, [facility] [place] [facility] [address] [facility] [id number] [place] [address]- 5452 Apr, [facility] [place] [facility] [address] [facility] [id number] [place] [address]- 9290 Apr, [facility] [place] [facility] [address] [facility] [id number] [place] [address]- 9613 Apr, [facility] [place] [facility] [address] [facility] [id number] [place] [address]- 5302 Apr, Hyperkalemia 276.7 [facility] [place] [facility] [id number] [place] [address]- 1582 Apr, [facility] [place] [facility] [address] [facility] [id number] [place] [address]- 7651 Apr, [facility] [place] [facility] [address] [facility] [id number] [place] [address]- 1129 Mar, [facility] [place] [facility] [address] [facility] [id number] [place] [address]- 2547 Mar, Hyperkalemia 276.7 [facility] [place] [facility] [address] [facility] [id number] [place] [address]- 5985 Mar, Hyperkalemia 276.7 [facility] [place] [facility] [address] [facility] [id number] [place] [address]- 1067 Mar, [facility] [place] [facility] [id number] [address]- 6023 Mar, [facility] [address] [facility] [id number] [place] [address]- 8918 Mar, [facility] [address] [facility] [id number] [place] 7548 Mar, [facility] [address] [address]- 8490 Mar, Anserine bursitis 726.61 [facility] [address] [facility] [id number] [place] [address] 46012- 9597 Mar, Asthma 493.90 and Hyperkalemia 276.7 [facility] [id number] [place] [address] 960781- 6374 Mar, [facility] [address] [address]- 0561 February, [facility] [address] [address]- 7704 February, [facility] [id number] [address]- 9138 February, [facility] [address] [address]- 3728 February, [facility] [address] [address]- 7010 February, [facility] [id number] [address]- 3793 February, [facility] [address] [facility] [id number] [place] 8910 February, [facility] [id number]- 6537 February, [facility] [id number] [address]- 8623 February, [facility] [address] [address]- 2500 14 Jan, 2015 [facility] [place] [facility] [address] [id number] [place] [address]- 3906 Jan, [facility] [place] [facility] [address] [id number] [place] [address]- 7931 Dec, [facility] [place] [facility] [address] [id number] [place] [address]- 7705 Dec, [facility] [place] [facility] [address] [id number] [place] [address]- 5000 Dec, [facility] [place] [facility] [address] [id number] [place] [address]- 3949 Dec, [facility] [place] [facility] [address] [id number] [place] [address]- 0701 Dec, [facility] [place] [facility] [address] [id number] [place] [address]- 7810 Dec, [facility] [place] [facility] [address] [id number] [place] [address]- 5387 Dec, [facility] [place] [facility] [address] [id number] [place] [address]- 0992 Dec, [facility] [place] [facility] [address] [id number] [place] [address]- 6110 Dec, [facility] [place] [facility] [address] [id number] [place] [address]- 7028 Dec, [facility] [place] [facility] [address] [id number] [place] [address]- 6588 Dec, [facility] [place] [facility] [address] [id number] [place] [address]- 5767 Dec, [facility] [place] [facility] [address] [id number] [place] [address]- 0632 Dec, [facility] [place] [facility] [address] [id number] [place] [address]- 2304 Dec, [facility] [place] [facility] [address] [id number] [place] [address]- 1670 Nov, 2014 [facility] [place] [facility] [address] [id number] [place] [address]- 3216 Nov, 2014 [facility] [place] [facility] [address] [id number] [place] [address]- 9919 Nov, 2014 [facility] [place] [facility] [address] [id number] [place] [address]- 9953 Nov, 2014 [facility] [place] [facility] [address] [id number] [place] [address]- 0219 Nov, [facility] [place] [facility] [address] [id number] [place] [address]- 0845 Nov, [facility] [place] [facility] [address] [facility] [id number] [place] [address]- 2227 Oct, [facility] [place] [facility] [address] [id number] [place] [address]- 3555 Oct, [facility] [place] [facility] [address] [id number] [place] [address]- 5197 Oct, [facility] [place] [facility] [address] [facility] [id number] [place] [address]- 7307 Oct, [facility] [place] [facility] [address] [id number] [place] [address]- 1995 Oct, [facility] [place] [facility] [address] [id number] [place] [address]- 8158 Oct, [facility] [place] [facility] [address] [id number] [place] [address]- 7499 Sep, [facility] [place] [facility] [address] [id number] [place] [address] Sep, [facility] [place] [facility] [address] [id number] [place] [address] Sep, [facility] [place] [facility] [address] [id number] [place] [address] Sep, [facility] [place] [facility] [address] [id number] [place] Sep, [facility] [place] [facility] [address] [id number] [place] [address] Sep, [facility] [place] [facility] [address] [id number] [place] Aug, [facility] [place] [facility] [address] [id number] [place] [address] Aug, [facility] [place] [facility] [address] [id number] [place] [address] Aug, [facility] [place] [facility] [address] [id number] [place] [address] Aug, [facility] [place] [facility] [address] [id number] [place] [address] Aug, [facility] [place] [facility] [address] [id number] [place] [address] Aug, [facility] [place] [facility] [address] [id number] [place] [address] Jul, [facility] [place] [facility] [address] [id number] [place] [address] 30 Jul, 2014 [facility] [place] [facility] [address] [id number] [address] Jul, [facility] [place] [facility] [address] [id number] [place] [address] Jul, [facility] [place] [facility] [address] [id number] [place] [address] Jul, [facility] [place] [facility] [address] [id number] [place] [address] Jul, [facility] [place] [facility] [address] [id number] [place] [address] Jul, [facility] [place] [facility] [address] [id number] [place] [address] Jul, [facility] [place] [facility] [address] [id number] [place] [address] Jul, [facility] [place] [facility] [address] [id number] [place] [address] Jul, [facility] [place] [facility] [address] [id number] [place] [address] Jul, [facility] [place] [facility] [address] [id number] [place] [address] Jun, [facility] [place] [facility] [address] [id number] [place] [address] Jun, [facility] [place] [facility] [address] [id number] [place] [address] Jun, [facility] [place] [facility] [address] [id number] [place] [address] Jun, [facility] [place] [facility] [address] [id number] [place] [address] 2012 Apr, [facility] [place] [facility] [address] [id number] [place] [address] Apr, [facility] [place] [facility] [address] [id number] [place] [address] Apr, [facility] [place] [facility] [address] [id number] [place] [address] Apr, [facility] [place] [facility] [address] [id number] [place] [address] Mar, [facility] [place] [facility] [address] [id number] [place] [address] Mar, [facility] [place] [facility] [address] [id number] [place] [address] Mar, [facility] [place] [facility] [address] [id number] [place] [address] Mar, [facility] [address] [facility] [id number] [address] Mar, [facility] [address] [facility] [id number] [place] [address] Sep, [facility] [address] [facility] [id number] [place] [address] Sep, [facility] [address] [facility] [id number] [place] [address] Aug, IMMUNIZATIONS No Known Immunizations SOCIAL HISTORY Never Assessed REASON FOR VISIT home health PLAN OF CARE VITAL SIGNS MEDICATIONS Unknown Medications RESULTS No Results PROCEDURES No Known procedures [...]
--- OUTSIDE RECORDS SUMMARY | 2018-07-12 09:16 | XMS REPORT ---
Author Author OLYA WILLIS Organization [facility] Address [address] [place] [address] Care Team Providers Care Insulation Cupola Charger Name Role Phone OLYA WILLIS Unavailable PROBLEMS Type Condition ICD9-CM Code BAC74-EI Code Onset Dates Condition Status SNOMED Code Problem GERD (gastroesophageal reflux disease) K21.9 Active 103196411 Problem Type 2 diabetes mellitus with diabetic autonomic (poly)neuropathy E11.43 Active 682056681 Problem Gastroparesis K31.84 Active 707623489 Problem Unsteady gait R26.81 Active 63168093 Problem Pressure ulcer of unspecified heel, stage 4 L89.604 Active 248676622 Problem Chronic osteomyelitis of right foot with draining sinus M86.471 Active [id number] Problem Chronic skin ulcer with fat layer exposed L98.492 Active 49279747 Problem Non-pressure chronic ulcer of right heel and midfoot with unspecified severity L97.419 Active 386262372 Problem Type 2 diabetes mellitus with foot ulcer E11.621 Active 35048822329778 Problem Chronic kidney disease N18.9 Active 182748944 Problem Paresthesias R20.2 Active 97872024 Problem Hypertension I10 Active 22500340 Problem Diabetic polyneuropathy associated with type 2 diabetes mellitus E11.42 Active 56901027 Problem Diabetes mellitus E11.9 Active 65863017 Problem Venous insufficiency I87.2 Active 87603898 ALLERGIES No Information ENCOUNTERS Encounter Location Date Diagnosis [facility] [address] [facility] [id number] [address] May, [facility] [id number] [address] 2424 Apr, Type 2 diabetes mellitus with foot ulcer E11.621 and Unsteady gait R26.81 [facility] [address] [facility] [id number], [place] [address] 29 José, 2018 Decubitus ulcer of right heel, stage 3 L89.613 [facility] [facility] [id number] [place] [address] 80005- 8244 Mar, [facility] [id number] [place] [address] 79044- 8785 Mar, Pressure ulcer of unspecified heel, stage 4 L89.604 and Type 2 diabetes mellitus with foot ulcer E11.621 [place] [id number] [place] [address] 69449- 5086 Mar, Encounter for medication monitoring Z51.81 [facility] [id number] [place] [address] 91308- 2675 Mar, Type 2 diabetes mellitus with foot ulcer E11.621 and Non- pressure chronic ulcer of right heel and midfoot with unspecified severity L97.419 [place] [id number] [place] [address] 12119- 4784 February, [facility] [id number] [place] [address] 12105- 9882 Jan, Right ankle pain M25.571 [facility] [id number] [place] [address] 66071- 0179 Dec, Right ankle pain M25.571 [facility] [id number] [place] [address] 75693- 0402 Dec, [place] [id number] [place] [address] 41429- 4930 Dec, [place] [facility] [id number] [place] [address] 45221- 1724 Dec, Right ankle pain M25.571 [place] [facility] [id number] [place] [address] 49686- 4047 Dec, Chronic skin ulcer with fat layer exposed L98.492 ; Type 2 diabetes mellitus with diabetic autonomic (poly)neuropathy E11.43 and Hypertension I10 [facility] [address] [id number] [address] 3340 Nov, [facility] [id number] [place] [address] 98009- 6856 Nov, [facility] [address] [address] 1176 Nov, [facility] [id number] [place] [address] 20525- 5052 Nov, Right ankle pain M25.571 and Chronic osteomyelitis of right foot with draining sinus M86.471 [facility] [id number] [place] [address] 01344- 0532 Oct, Right ankle pain M25.571 [facility] [id number] [place] [address] 33151- 5882 Oct, [facility] [id number] [place] [address] 40830- 5014 Sep, Diabetes mellitus E11.9 [facility] [id number] [place] [address] 43181- 1992 Sep, Diabetic polyneuropathy associated with type 2 diabetes mellitus E11.42 and Venous insufficiency I87.2 [facility] [address], [place] [address] 2994 Sep, Right ankle pain M25.571 [facility] [id number] [place] [address] 92859- 6702 Aug, Right ankle pain M25.571 [facility] [address], [place] [address]- 7500 Aug, Chronic osteomyelitis of right foot with draining sinus M86.471 [facility] [address], [place] [address]- 9826 Aug, [facility] [address], [place] [address]- 7639 Aug, [facility] [id number] [place] [address] 31995- 9237 Aug, Chronic osteomyelitis of right foot with draining sinus M86.471 [place] [address] 19576- 0625 Jul, [place] [address] 05519- 7172 Jul, [place] [address] 54641- 2967 Jul, Chronic kidney disease N18.9 [place] [address] 88467- 2477 Jul, Right ankle pain M25.571 [place] [address] 61681- 3973 Jul, Non-healing ulcer of right foot, unspecified ulcer stage L97.519 [place] [address] 45334- 1651 Jul, Chronic skin ulcer with fat layer exposed L98.492 [place] [address] 02617- 9354 Jul, Deformity of right ankle joint M21.961 [place] [id number] [place] [address] 19614- 9257 Jun, [facility] [facility] [address] 79209- 5479 Jun, Diabetes mellitus E11.9 ; Skin ulcer of right foot with fat layer exposed L97.512 and Encounter for immunization Z23 [place] [address] 30780- 7400 Jun, Right ankle pain M25.571 [place] [address] 03690- 4913 May, Right ankle pain M25.571 [place] [address] [place] [address]- 9385 Apr, Right ankle pain M25.571 [facility] [id number] [place] [address] 11668- 0108 Mar, Right ankle pain M25.571 [facility] [id number] [place] [address] 67034- 6498 Mar, [facility] [address] 56935- 3019 February, Diabetes mellitus E11.9 and Diabetic polyneuropathy associated with type 2 diabetes mellitus E11.42 [place] [address] 16891- 2125 February, Hyperkalemia E87.5 [facility] [id number] [place] [address] 94650- 7582 February, Right ankle pain M25.571 [facility] [id number] [place] [address] 16117- 2159 Jan, Right ankle pain M25.571 [facility] [id number] [place] [address] 03407- 3181 Dec, Right ankle pain M25.571 [facility] [id number] [place] [address] 47167- 3518 Dec, Right ankle pain M25.571 [facility] [id number] [place] [address] 43434- 0553 Nov, [facility] [id number] [place] [address] 38796- 7922 Nov, Diabetes mellitus E11.9 ; Hypertension I10 ; Gastroparesis K31.84 and Type 2 diabetes mellitus with diabetic autonomic (poly)neuropathy E11.43 [facility] [id number] [place] [address] 27969- 8831 Nov, Right ankle pain M25.571 [facility] [address] [place] [address]- 5236 Oct, Right ankle pain M25.571 [facility] [id number] [place] [address] 56888- 9506 Oct, [facility] [id number] [place] [address] 05118- 1352 Oct, [facility] [id number] [place] [address] 33240- 5546 Sep, [facility] [id number] [place] [address] 87737- 2131 Sep, Hypertension I10 [place] [address] 35157- 1112 Sep, Chronic kidney disease N18.9 ; Right ankle pain M25.571 and GERD (gastroesophageal reflux disease) K21.9 [place] [id number] [place] [address] 88355- 8559 Jul, [place] [id number] [place] [address] 29299- 9851 Jul, Encounter for immunization Z23 ; Venous insufficiency I87.2 and Diabetic polyneuropathy associated with type 2 diabetes mellitus E11.42 [place] [id number] [place] [address] 94866- 0331 Jul, [place] [id number] [place] [address] 88260- 6442 Jul, Diabetes mellitus E11.9 [facility] [id number] [place] [address] 86250- 2881 May, [place] [address] 07368- 2375 Apr, [facility] [id number] [place] [address] 31428- 7127 Mar, Right ankle pain M25.571 [facility] [id number] [place] [address] 94216- 0476 Mar, [facility] [id number] [place] [address] 69210- 7265 February, Paresthesias R20.2 [facility] [id number] [place] [address] 94734- 0614 February, [facility] [id number] [place] [address] 96404- 3285 February, 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 [facility] [id number] [place] [address] 84931- 6144 February, Diabetes mellitus E11.9 [facility] [id number] [place] [address] 84584- 5036 February, [facility] [id number] [place] [address] 91998- 4307 February, Polyneuropathy in diabetes 357.2 and Paresthesias R20.2 [facility] [id number] [place] [address] 30215- 3916 February, [facility] [id number] [place] [address] 16090- 2982 February, [facility] [id number] [place] [address] 44741- 8881 February, [facility] [id number] [place] [address] 89548- 9110 February, Diabetes mellitus E11.9 [facility] [address] [place] [address] 48377- 5921 February, [facility] [id number] [place] [address] 58483- 8545 February, Hyperkalemia E87.5 [facility] [address] [place] [address] 33549- 2317 Jan, Hypertension I10 [facility] [id number] [place] [address] 13103- 0956 Jan, Insomnia G47.00 [facility] [id number] [place] [address] 86207- 6336 Jan, [facility] [address] 44591- 8606 Jan, [facility] [address] 06532- 3310 Jan, [facility] [address] 66582- 7959 Dec, Right ankle pain M25.571 [facility] [address] 73824- 4198 Dec, GERD (gastroesophageal reflux disease) K21.9 [facility] [address] 66550- 6411 Dec, Insomnia G47.00 [facility] [address] 08633- 6584 Dec, Hypertension I10 and Hyperkalemia 276.7 [facility] [address] 14511- 5402 Dec, Chronic kidney disease N18.9 [facility] [id number] [place] [address] 60815- 4963 Dec, [facility] [address] 88695- 5372 Dec, Hyperkalemia E87.5 [facility] [id number] [place] [address] 20788- 2941 Dec, Chronic kidney disease N18.9 and Right ankle pain M25.571 [facility] [id number] [place] [address] 91138- 6923 Nov, GERD (gastroesophageal reflux disease) K21.9 [facility] [id number] [place] [address] 57208- 5541 Nov, Right ankle pain M25.571 [facility] [address] [place] [address] 01537- 8083 Nov, Diabetes mellitus E11.9 [facility] [id number] [place] [address] 54542- 2891 Oct, [facility] [id number] [place] [address] 07095- 0304 Oct, [facility] [id number] [place] [address] 21969- 8068 Oct, [facility] [id number] [place] [address] 98849- 2379 Oct, Hyperkalemia E87.5 [facility] [id number] [place] [address] 51363- 9332 Oct, [facility] [id number] [place] [address] 71281- 7079 Oct, Hyperkalemia E87.5 [facility] [id number] [place] [address] 27075- 5887 Sep, [facility] [id number] [place] [address] 93918- 7237 Sep, [facility] [address] [place] [address] 61258- 9337 Sep, [facility] [address] [place] [address] 86730- 9809 Sep, [facility] [address] [place] [address] 64820- 3213 Sep, Right ankle pain M25.571 [facility] [id number] [place] [address] 35802- 9088 Aug, Chronic kidney disease N18.9 [facility] [address] [place] [address] 34605- 8002 Aug, [facility] [address], [place] [address]- 3748 Aug, Hyperkalemia E87.5 [facility] [id number] [place] [address] 55359- 7353 Aug, [facility] [id number] [place] [address] 71813- 5496 Jul, [facility] [id number] [place] [address] 53042- 9329 Jul, [facility] [id number] [place] [address] 76430- 6880 Jul, [facility] [id number] [place] [address] 93843- 0599 Jul, Diabetes mellitus E11.9 ; Encounter for immunization Z23 ; Hypertension I10 and Hyperkalemia E87.5 [facility] [id number] [place] [address] 06082- 8250 Jul, [facility] [id number] [place] [address] 13568- 7638 Jul, Hyperkalemia E87.5 [facility] [id number] [place] [address] 86167- 4358 Jul, Hyperkalemia E87.5 [facility] [id number] [place] [address] 18072- 6987 Jun, [facility] [id number] [place] [address] 94679- 6802 Jun, [facility] [id number] [place] [address] 21986- 6852 15 Jun, 2015 [facility] [id number] [place] [address] 03486- 0703 Jun, [facility] [address] [place] [address] 32269- 4236 May, [facility] [address] [id number] [place] [address] 2543 May, [facility] [place] [facility] [address] [id number] [place] [address] 2546 May, [facility] [place] [facility] [address] [id number] [place] [address] 2546 May, Hyperkalemia 276.7 [facility] [place] [facility] [address] [id number] [place] [address] 2546 May, [facility] [place] [facility] [address] [id number] [place] [address] 2545 Apr, Hyperkalemia 276.7 [facility] [place] [facility] [address] [id number] [place] [address] 2546 Apr, [facility] [place] [facility] [address] [facility] [id number] [place] [address]- 5666 Apr, [facility] [place] [facility] [address] [facility] [id number] [place] [address] 2545 Apr, [facility] [place] [facility] [address] [id number] [place] [address] 2541 Apr, [facility] [place] [facility] [address] [facility] [id number] [place] [address] 2543 Apr, Hyperkalemia 276.7 [facility] [place] [facility] [address] [facility] [id number] [place] [address] 2546 Apr, [facility] [place] [facility] [address] [facility] [id number] [place] [address] 2546 Apr, [facility] [place] [facility] [address] [facility] [id number] [place] [address] 2546 Mar, [facility] [place] [facility] [address] [facility] [id number] [place] [address] 2546 Mar, Hyperkalemia 276.7 [facility] [place] [facility] [address] [facility] [id number] [place] [address]- 1172 Mar, Hyperkalemia 276.7 [facility] [address] [facility] [id number] [address]- 0300 Mar, [facility] [address] [facility] [id number], [place] [address]- 3617 Mar, [facility] [address] [facility] [id number], [place] [address]- 7777 Mar, [facility] [address] [facility] [id number] [address]- 6688 Mar, [facility] [address] [facility] [id number] [address]- 0462 Mar, Anserine bursitis 726.61 [facility] [address], [place] [address]- 3553 Mar, Asthma 493.90 and Hyperkalemia 276.7 [facility] [id number], [place] [address]- 9507 Mar, [facility] [id number] [address]- 6719 February, [facility] [address], [place] [address]- 3818 February, [facility] [address], [place] [address]- 9167 February, [facility] [id number], [place] [address]- 4417 February, [facility] [address] [facility] [id number] [address]- 2216 February, [facility] [id number] [address]- 0548 February, [facility] [id number] 4292 February, [facility] [address], [place] [address]- 1668 February, [facility] [place] [facility] [address] [id number] [place] [address]- 0448 February, [facility] [place] [facility] [address] [id number] [place] [address]- 1914 Jan, [facility] [place] [facility] [address] [id number] [place] [address]- 5915 Jan, [facility] [place] [facility] [address] [id number] [place] [address]- 3794 Dec, [facility] [place] [facility] [address] [id number] [place] [address]- 0866 Dec, [facility] [place] [facility] [address] [id number] [place] [address]- 6070 Dec, [facility] [place] [facility] [address] [id number] [place] [address]- 3002 Dec, [facility] [place] [facility] [address] [id number] [place] [address]- 5402 Dec, [facility] [place] [facility] [address] [id number] [place] [address]- 5421 Dec, [facility] [place] [facility] [address] [id number] [place] [address]- 5651 Dec, [facility] [place] [facility] [address] [id number] [place] [address]- 0202 Dec, [facility] [place] [facility] [address] [id number] [place] [address]- 6790 Dec, [facility] [place] [facility] [address] [id number] [place] [address]- 9157 Dec, [facility] [place] [facility] [address] [id number] [place] [address]- 0261 Dec, [facility] [place] [facility] [address] [id number] [place] [address]- 2841 Dec, [facility] [place] [facility] [address] [id number] [place] [address]- 4913 Dec, [facility] [place] [facility] [address] [id number] [place] [address]- 3379 Dec, [facility] [place] [facility] [address] [id number] [place] [address]- 3821 Nov, 2014 [facility] [place] [facility] [address] [id number] [place] [address]- 7578 Nov, [facility] [place] [facility] [address] [id number] [place] [address]- 3703 Nov, [facility] [place] [facility] [address] [id number] [place] [address]- 8178 Nov, [facility] [place] [facility] [address] [facility] [id number] [place] [address] Nov, [facility] [place] [facility] [address] [facility] [id number] [place] [address] Nov, [facility] [facility] [address] [id number] [place] [address] Oct, [facility] [facility] [address] [facility] [id number] [place] [address] Oct, [facility] [facility] [address] [facility] [id number] [place] [address] Oct, [facility] [place] [facility] [address] [id number] [place] [address] Oct, [facility] [place] [facility] [address] [id number] [place] [address] Oct, [facility] [place] [facility] [address] [id number] [place] [address] Oct, [facility] [facility] [address] [id number] [place] [address] Sep, [facility] [place] [facility] [address] [id number] [place] [address] Sep, [facility] [place] [facility] [address] [id number] [place] [address] Sep, [facility] [place] [facility] [address] [id number] [place] [address] Sep, [facility] [place] [facility] [address] [id number] [place] [address] Sep, [facility] [place] [facility] [address] [id number] [place] [address] Sep, [facility] [place] [facility] [address] [id number] [place] [address] Aug, [facility] [place] [facility] [address] [id number] [place] [address] Aug, [facility] [place] [facility] [address] [id number] [place] [address] Aug, [facility] [place] [facility] [address] [id number] [place] [address] Aug, [facility] [place] [facility] [address] [id number] [place] [address] Aug, [facility] [place] [facility] [address] [id number] [place] [address] Aug, [facility] [place] [facility] [address] [id number] [address] Jul, [facility] [place] [facility] [address] [id number] [place] [address] 30 Jul, 2014 [facility] [place] [facility] [address] [id number] [place] [address] Jul, [facility] [place] [facility] [address] [id number] [place] [address] Jul, [facility] [address] [id number] [place] [address] Jul, [facility] [facility] [address] [id number] [place] [address] Jul, [facility] [place] [facility] [address] [id number] [place] [address] Jul, [facility] [place] [facility] [address] [id number] [place] [address] Jul, [facility] [place] [facility] [address] [id number] [place] [address] Jul, [facility] [place] [facility] [address] [id number] [place] [address] Jul, [facility] [place] [facility] [address] [id number] [place] [address] Jul, [facility] [place] [facility] [address] [id number] [place] [address] Jun, [facility] [place] [address] [id number] [place] [address] Jun, [facility] [place] [address] [id number] [place] [address] Jun, [facility] [place] [facility] [address] [id number] [place] [address] Jun, [facility] [place] [facility] [address] [id number] [place] [address] Apr, [facility] [place] [facility] [address] [id number] [place] [address] Apr, [facility] [place] [facility] [address] [id number] [place] [address] Apr, [facility] [place] [facility] [address] [id number] [place] [address] Apr, [facility] [place] [facility] [address] [id number] [place] [address] Mar, [facility] [place] [facility] [address] [id number] [place] [address] Mar, [facility] [address] [facility] [id number] [address] Mar, [facility] [address] [facility] [id number] [address] Mar, [facility] [address] [facility] [id number] [address] Mar, [facility] [address] [id number] [address] Sep, [facility] [address] [facility] [id number] [address] Sep, [facility] [address] [facility] [id number] [address] Aug, IMMUNIZATIONS No Known Immunizations SOCIAL HISTORY Never Assessed REASON FOR VISIT Oxycodone 4/3 PLAN OF CARE VITAL SIGNS MEDICATIONS Medication Instructions Dosage Frequency Start Date End Date Duration Status oxycodone 5 mg oral 4 times a day 1 tablet 6h Dec, 28 days Active RESULTS No Results PROCEDURES [...]
--- OUTSIDE RECORDS SUMMARY | 2018-07-12 09:17 | XMS REPORT ---
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 Active 133810465 Problem Chronic skin ulcer with fat layer exposed L98.492 Active 56060446 Problem Type 2 diabetes mellitus with diabetic autonomic (poly)neuropathy E11.43 Active 575437290 Problem Type 2 diabetes mellitus with foot ulcer E11.621 Active 96848466440047 Problem Chronic osteomyelitis of right foot with draining sinus M86.471 Active 459526754238203 Problem Diabetes mellitus E11.9 Active 30380845 Problem Chronic kidney disease N18.9 Active 667967283 Problem Paresthesias R20.2 Active 81789532 Problem Hypertension I10 Active 33224891 Problem Diabetic polyneuropathy associated with type 2 diabetes mellitus E11.42 Active 26666022 ALLERGIES Substance Reaction Event Type Date Status Sulfacetamide Sodium Unknown Drug Allergy Dec, Active Plavix caused bleeding Drug Allergy Dec, Active Neurontin Makes her disoriented Drug Allergy Dec, Active Lyrica dizziness Drug Allergy Dec, Active ENCOUNTERS Encounter Location Date Diagnosis [facility] [address] [facility] [address] [id number], [place] [address] Apr, [facility] [address] [facility] [address] [id number], [place] [address] Mar, Decubitus ulcer of right heel, stage 3 L89.613 [facility] [id number] [place] [address] 29969- 5643 Mar, [facility] [id number] [place] [address] 64257- 2004 Mar, Pressure ulcer of unspecified heel, stage 4 L89.604 and Type 2 diabetes mellitus with foot ulcer E11.621 [facility] [address] [address]58- 6515 Mar, Encounter for medication monitoring Z51.81 [facility] [address] 49177- 6511 Mar, Type 2 diabetes mellitus with foot ulcer E11.621 and Non- pressure chronic ulcer of right heel and midfoot with unspecified severity L97.419 [facility] [address] 62991- 2814 February, [facility] [address] 26661- 5593 Jan, Right ankle pain M25.571 [facility] [address] 43927- 8258 Dec, Right ankle pain M25.571 [facility] [id number] [place] [address] 84549- 3116 Dec, [facility] [id number] [place] [address] 33438- 7086 Dec, [facility] [id number] [place] [address] 77540- 5575 Dec, Right ankle pain M25.571 [facility] [address] 84343- 2718 Dec, Chronic skin ulcer with fat layer exposed L98.492 ; Type 2 diabetes mellitus with diabetic autonomic (poly)neuropathy E11.43 and Hypertension I10 [facility] [address] 52189- 1355 Nov, [facility] [id number] [place] [address] 38420- 6231 Nov, [facility] [id number] [place] [address] 41337- 1378 Nov, [facility] [id number] [place] [address] 79342- 6452 Nov, Right ankle pain M25.571 and Chronic osteomyelitis of right foot with draining sinus M86.471 [facility] [id number] [place] [address] 49271- 6692 Oct, Right ankle pain M25.571 [facility] [id number] [place] [address] 80626- 2117 Oct, [facility] [id number] [place] [address] 20071- 3092 Sep, Diabetes mellitus E11.9 [facility] [id number] [place] [address] 94899- 6926 Sep, Diabetic polyneuropathy associated with type 2 diabetes mellitus E11.42 and Venous insufficiency I87.2 [facility] [id number] [place] [address] 87029- 9412 Sep, Right ankle pain M25.571 [facility] [id number] [place] [address] 64971- 2844 Aug, Right ankle pain M25.571 [facility] [id number] [place] [address] 87021- 2796 Aug, Chronic osteomyelitis of right foot with draining sinus M86.471 [facility] [id number] [place] [address] 85387- 1234 Aug, [facility] [id number] [place] [address] 38629- 0398 Aug, [facility] [id number] [place] [address] 30611- 3568 Aug, Chronic osteomyelitis of right foot with draining sinus M86.471 [facility] [id number] [place] [address] 14163- 4998 Jul, [facility] [id number] [place] [address] 09815- 8345 Jul, [facility] [address] 63605- 9340 Jul, Chronic kidney disease N18.9 [facility] [id number] [place] [address] 46678- 6203 Jul, Right ankle pain M25.571 [facility] [address] 17849- 2787 Jul, Non-healing ulcer of right foot, unspecified ulcer stage L97.519 [facility] [address] 80793- 7304 Jul, Chronic skin ulcer with fat layer exposed L98.492 [facility] [id number] [place] [address] 97985- 6840 Jul, Deformity of right ankle joint M21.961 [facility] [id number] [place] [address] 90173- 4506 Jun, [facility] [id number] [place] [address] 32761- 0523 Jun, Diabetes mellitus E11.9 ; Skin ulcer of right foot with fat layer exposed L97.512 and Encounter for immunization Z23 [facility] [id number] [place] [address] 23411- 5039 Jun, Right ankle pain M25.571 [facility] [address] 12531- 3169 May, Right ankle pain M25.571 [facility] [address] 02452- 7391 Apr, Right ankle pain M25.571 [facility] [id number] [place] [address] 28776- 7768 Mar, Right ankle pain M25.571 [facility] [id number] [place] [address] 01962- 2000 Mar, [facility] [id number] [place] [address] 10514- 2554 February, Diabetes mellitus E11.9 and Diabetic polyneuropathy associated with type 2 diabetes mellitus E11.42 [facility] [id number] [place] [address] 07241- 9391 February, Hyperkalemia E87.5 [facility] [id number] [place] [address] 44920- 0579 February, Right ankle pain M25.571 [facility] [id number] [place] [address] 53510- 8348 Jan, Right ankle pain M25.571 [facility] [id number] [place] [address] 74380- 3222 Dec, Right ankle pain M25.571 [facility] [id number] [place] [address] 48423- 1243 Dec, Right ankle pain M25.571 [facility] [id number] [place] [address] 92612- 4736 Nov, [facility] [id number] [place] [address] 57021- 3893 Nov, Diabetes mellitus E11.9 ; Hypertension I10 ; Gastroparesis K31.84 and Type 2 diabetes mellitus with diabetic autonomic (poly)neuropathy E11.43 [facility] [id number] [place] [address] 68616- 8226 Nov, Right ankle pain M25.571 [facility] [id number] [place] [address] 52151- 8962 Oct, Right ankle pain M25.571 [facility] [id number] [place] [address] 96973- 3358 Oct, [facility] [id number] [place] [address] 48593- 6505 Oct, [facility] [id number] [place] [address] 60872- 4519 Sep, [facility] [address] 64655- 8088 Sep, Hypertension I10 [facility] [address] 44533- 5044 Sep, Chronic kidney disease N18.9 ; Right ankle pain M25.571 and GERD (gastroesophageal reflux disease) K21.9 [facility] [id number] [place] [address] 10300- 8397 Jul, [facility] [address] 14228- 8521 Jul, Encounter for immunization Z23 ; Venous insufficiency I87.2 and Diabetic polyneuropathy associated with type 2 diabetes mellitus E11.42 [facility] [id number] [place] [address] 68783- 3149 Jul, [facility] [id number] [place] [address] 37114- 8188 Jul, Diabetes mellitus E11.9 [facility] [id number] [place] [address] 54834- 4056 May, [facility] [id number] [place] [address] 53200- 6892 Apr, [facility] [id number] [place] [address] 30635- 9408 Mar, Right ankle pain M25.571 [facility] [id number] [place] [address] 75192- 6874 Mar, [facility] [address] [address]- 6404 February, Paresthesias R20.2 [facility] [id number] [place] [address] 99600- 1959 February, [facility] [id number] [place] [address] 50462- 8601 February, 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 [facility] [id number] [place] [address] 25173- 3013 February, Diabetes mellitus E11.9 [facility] [id number] [place] [address] 56193- 3313 February, [facility] [id number] [place] [address] 72576- 9477 February, Polyneuropathy in diabetes 357.2 and Paresthesias R20.2 [facility] [id number] [place] [address] 35908- 2029 February, [facility] [id number] [place] [address] 90825- 5107 February, [facility] [id number] [place] [address] 22806- 4318 February, [facility] [id number] [place] [address] 43453- 8696 February, Diabetes mellitus E11.9 [facility] [id number] [place] [address] 41054- 6357 February, [facility] [id number] [place] [address] 73664- 0940 February, Hyperkalemia E87.5 [facility] [id number] [place] [address] 34985- 3230 Jan, Hypertension I10 [facility] [id number] [place] [address] 65395- 4402 Jan, Insomnia G47.00 [facility] [address] [address]- 1530 Jan, [facility] [id number] [place] [address] 21748- 9356 Jan, [facility] [id number] [place] [address] 85554- 7898 Jan, [facility] [id number] [place] [address] 74397- 5525 Dec, Right ankle pain M25.571 [facility] [id number] [place] [address] 65275- 6525 Dec, GERD (gastroesophageal reflux disease) K21.9 [facility] [id number] [place] [address] 55206- 1992 Dec, Insomnia G47.00 [facility] [id number] [place] [address] 78265- 0492 Dec, Hypertension I10 and Hyperkalemia 276.7 [facility] [id number] [place] [address] 29143- 9847 Dec, Chronic kidney disease N18.9 [facility] [id number] [place] [address] 36906- 1701 Dec, [facility] [id number] [place] [address] 32961- 7997 Dec, Hyperkalemia E87.5 [facility] [id number] [place] [address] 91341- 2456 Dec, Chronic kidney disease N18.9 and Right ankle pain M25.571 [facility] [id number] [place] [address] 46866- 4041 Nov, GERD (gastroesophageal reflux disease) K21.9 [facility] [address] [address]- 0843 03 Nov, 2015 Right ankle pain M25.571 [facility] [address], [place] [address]- 6202 Nov, Diabetes mellitus E11.9 [facility] [id number] [place] [address] 09854- 0706 Oct, [facility] [id number] [place] [address] 87011- 6948 Oct, [facility] [id number] [place] [address] 13089- 4268 Oct, [facility] [id number] [place] [address] 76386- 4974 Oct, Hyperkalemia E87.5 [facility] [id number] [place] [address] 52477- 6283 Oct, [facility] [id number] [place] [address] 67056- 6540 Oct, Hyperkalemia E87.5 [facility] [id number] [place] [address] 04692- 8864 Sep, [facility] [id number] [place] [address] 30145- 4650 Sep, [facility] [address], [place] [address]- 9937 Sep, [facility] [id number] [place] [address] 57092- 1243 Sep, [facility] [address], [place] [address]- 8700 Sep, Right ankle pain M25.571 [facility] [id number] [place] [address] 29391- 4715 Aug, Chronic kidney disease N18.9 [facility] [address], [place] [address]- 1451 Aug, [facility] [id number] [address]- 5960 Aug, Hyperkalemia E87.5 [facility] [id number] [place] [address] 09011- 1725 Aug, [facility] [id number] [place] [address] 86856- 5610 Jul, [facility] [id number] [place] [address] 31352- 5182 Jul, [facility] [id number] [place] [address] 62517- 5310 Jul, [facility] [id number] [place] [address] 74544- 0948 Jul, Diabetes mellitus E11.9 ; Encounter for immunization Z23 ; Hypertension I10 and Hyperkalemia E87.5 [facility] [id number] [place] [address] 37173- 1755 Jul, [facility] [id number] [place] [address] 07750- 0321 Jul, Hyperkalemia E87.5 [facility] [id number] [place] [address] 30825- 8108 Jul, Hyperkalemia E87.5 [facility] [id number] [place] [address] 78278- 4445 28 Jun, 2015 [facility] [id number] [place] [address] 72303- 8419 21 Jun, 2015 [facility] [id number] [place] [address] 92145- 8177 15 Jun, 2015 [facility] [id number] [place] [address] 50340- 8119 Jun, [facility] [id number] [place] [address] 75578- 2883 May, [facility] [id number] [place] [address] 38899- 2010 May, [facility] [place] [facility] [address] [id number] [place] [address]- 7884 May, [facility] [place] [facility] [id number] [place] [address]- 8589 May, Hyperkalemia 276.7 [facility] [place] [facility] [id number] [place] [address]- 7056 May, [facility] [place] [facility] [address] [facility] [facility] [id number] [place] [address]- 2642 Apr, Hyperkalemia 276.7 [facility] [place] [facility] [id number] [place] [address]- 9041 Apr, [facility] [place] [facility] [id number] [place] [address]- 8975 Apr, [facility] [place] [facility] [id number] [place] [address]- 2997 Apr, [facility] [place] [facility] [id number] [place] [address]- 5048 Apr, [facility] [place] [facility] [id number] [place] [address]- 6158 Apr, Hyperkalemia 276.7 [facility] [place] [facility] [id number] [place] [address]- 2540 Apr, [facility] [place] [facility] [id number] [address]- 4620 Apr, [facility] [place] [facility] [id number] [place] [address]- 6593 Mar, [facility] [place] [facility] [address] [facility] [id number] [place] [address]- 2546 Mar, Hyperkalemia 276.7 [facility] [place] [facility] [address] [facility] [id number] [place] [address] 2546 Mar, Hyperkalemia 276.7 [facility] [place] [facility] [address] [facility] [id number] [place] [address]- 2531 Mar, [facility] [address] [place] [address]- 0371 Mar, [facility] [address] [facility] [address] [id number] [place] [address]- 0823 Mar, [facility] [address] [place] [address]- 6075 Mar, [facility] [address], [place] [address]- 0022 Mar, Anserine bursitis 726.61 [facility] [address], [place] [address]- 8594 Mar, Asthma 493.90 and Hyperkalemia 276.7 [facility] [address] [place] [address]- 3555 Mar, [facility] [address], [place] [address]- 6181 February, [facility] [address] [place] [address]- 3766 February, [facility] [address] [place] [address]- 6337 February, [facility] [id number] [place] [address]- 0101 February, [facility] [id number], [place] [address]- 3467 February, [facility] [id number] [place] [address]- 5805 February, [facility] [id number] [place] [address]- 2543 February, [facility] [id number], [place] [address]- 0802 February, [facility] [place] [facility] [address] [id number] [place] [address]- 2190 February, [facility] [place] [facility] [address] [id number] [place] [address]- 2117 Jan, [facility] [place] [facility] [address] [id number] [place] [address]- 9314 Jan, [facility] [place] [facility] [address] [id number] [place] [address]- 3177 Dec, [facility] [place] [facility] [address] [id number] [place] [address]- 8093 Dec, [facility] [place] [facility] [address] [id number] [place] [address]- 1188 Dec, [facility] [place] [facility] [address] [id number] [place] [address]- 1028 Dec, [facility] [place] [facility] [address] [id number] [place] [address]- 6440 Dec, [facility] [place] [facility] [address] [id number] [place] [address]- 0432 Dec, [facility] [place] [facility] [address] [id number] [place] [address]- 6657 Dec, [facility] [place] [facility] [address] [id number] [place] [address] Dec, [facility] [place] [facility] [address] [id number] [place] [address] Dec, [facility] [place] [facility] [address] [id number] [place] [address] Dec, [facility] [place] [facility] [address] [id number] [place] [address] Dec, [facility] [place] [facility] [address] [id number] [place] [address] Dec, [facility] [place] [facility] [address] [id number] [place] [address] Dec, [facility] [place] [facility] [address] [id number] [place] [address] Dec, [facility] [place] [facility] [address] [id number] [place] [address] Nov, [facility] [place] [facility] [address] [id number] [place] [address] Nov, [facility] [place] [facility] [address] [id number] [place] [address] Nov, [facility] [place] [facility] [address] [id number] [place] [address] Nov, [facility] [place] [facility] [address] [facility] [id number] [place] [address] Nov, [facility] [place] [facility] [address] [facility] [id number] [place] [address] Nov, [facility] [place] [facility] [address] [facility] [address] [id number] [place] [address] Oct, [facility] [place] [facility] [address] [facility] [address] [id number] [place] [address] Oct, [facility] [place] [facility] [address] [facility] [address] [id number] [place] [address] Oct, [facility] [place] [facility] [address] [facility] [address] [id number] [place] [address] Oct, [facility] [place] [facility] [address] [facility] [address] [id number] [place] [address] Oct, [facility] [place] [facility] [address] [id number] [place] [address] Oct, [facility] [place] [facility] [address] [facility] [id number] [place] [address] Sep, [facility] [place] [facility] [address] [facility] [id number] [place] [address] Sep, [facility] [place] [facility] [address] [id number] [place] [address] Sep, [facility] [place] [facility] [address] [id number] [place] [address] Sep, [facility] [place] [facility] [address] [id number] [place] [address] Sep, [facility] [place] [facility] [address] [id number] [place] [address] Sep, [facility] [place] [facility] [address] [id number] [place] [address] Aug, [facility] [place] [facility] [address] [id number] [place] [address] Aug, [facility] [place] [facility] [address] [id number] [place] [address] Aug, [facility] [facility] [address] [id number] [place] [address] Aug, [facility] [place] [facility] [address] [id number] [place] [address] Aug, [facility] [place] [facility] [address] [id number] [place] [address] Aug, [facility] [place] [facility] [address] [id number] [place] [address] Jul, [facility] [place] [facility] [address] [id number] [place] [address] 30 Jul, 2014 [facility] [place] [facility] [address] [id number] [place] [address] Jul, [facility] [place] [facility] [address] [id number] [place] [address] Jul, [facility] [place] [facility] [address] [id number] [place] [address] Jul, [facility] [place] [facility] [address] [id number] [place] [address] Jul, [facility] [place] [facility] [address] [id number] [place] [address] Jul, [facility] [place] [facility] [address] [id number] [place] [address] Jul, [facility] [place] [facility] [address] [id number] [place] [address] Jul, [facility] [place] [facility] [address] [id number] [place] [address] Jul, [facility] [place] [facility] [address] [id number] [place] [address] Jul, [facility] [place] [facility] [address] [id number] [place] [address] Jun, [facility] [place] [facility] [address] [id number] [place] [address] Jun, [facility] [place] [facility] [address] [id number] [place] [address] Jun, [facility] [place] [facility] [address] [id number] [place] [address] Jun, [facility] [place] [facility] [address] [id number] [place] [address] Apr, [facility] [place] [facility] [address] [id number], [place] [address] Apr, [facility] [place] [facility] [address] [id number], [place] [address] Apr, [facility] [place] [facility] [address] [id number] [place] [address] Apr, [facility] [place] [facility] [address] [id number] [place] [address] Mar, [facility] [place] [facility] [address] [id number] [place] [address] Mar, [facility] [place] [facility] [address] [facility] [id number], [place] [address] 16 Mar, 2014 [facility] [address] [facility] [address] [id number], [place] [address] Mar, [facility] [address] [id number], [place] [address] Mar, [facility] [address] [id number], [place] [address] Sep, [facility] [address] [facility] [address] [id number], [place] [address] Sep, [facility] [address] [address] [facility] [address] [id number], [place] [address] Aug, IMMUNIZATIONS No Known Immunizations SOCIAL HISTORY Never Assessed REASON FOR VISIT Pain management (chronic), PT is in need for a referal to get back on home health-Nicholas JAVIER, [place], PHQ2 AUDIT C PLAN OF CARE Activity Details Follow Up 3 Months Reason: VITAL SIGNS Height 62 in 2017-12-23 Weight 153.5 lbs 2017-12-23 Temperature 97.9 degrees Fahrenheit 2017-12-23 Heart Rate 58 bpm 2017-12-23 Respiratory Rate 18 2017-12-23 BMI 28.07 kg/m2 2017-12-23 Blood pressure systolic 134 mmHg 2017-12-23 Blood pressure diastolic 66 mmHg 2017-12-23 MEDICATIONS Medication Instructions Dosage Frequency Start Date End Date Duration Status Diabetic Shoes wear with ambulation Sep, Active Marie Contour Next Test - TEST BLOOD SUGAR THREE TIMES A DAY E11.9 30 Active MiraLax - Orally Once a day take 17 g mixed with 8 oz. water or juice by Oral route 1 time per day 24h Aug, Active Atenolol 50 mg Orally Once a day 1 tablet 24h 30 Active Vitamin D 2000 UNIT Orally Once a day 5000 units 24h Active NovoFine 32 gauge USE WITH INSULIN PENS THREE TIMES A DAY 30 Active Pantoprazole Sodium 40 mg Orally Once a day 1 tablet 24h 30 Active BD Insulin Syringe MicroFine 28G X 1/2 use with insulin 8h Jul, Active Blood Glucose Test Test Strips subcutaneously 3 times a day check blood sugar 8h Nov, Active Calcium Acetate (Phos Binder) 667 MG Orally Three times a day 2 tablets with meals 8h Active Levemir FlexTouch 100 unit/mL (3 mL) Subcutaneous Once a day 10 Units 24h 10 Jul, 2014 Active ProAir HFA 108 (90 Base) MCG/ACT Inhalation every 4 hrs 2 puffs as needed 4h Mar, Not-Taking [id number]-9 0.1 MG/24HR Transdermal once weekly 1 patch to skin 28 Active oxycodone 5 mg oral 4 times a day 1 tablet 6h Dec, 28 days Active Amlodipine Besylate 10 MG TAKE ONE TABLET BY MOUTH ONCE DAILY 30 Active Glucometer ... subcutaneously one time Accu-check Nov, Active Stool Softener Active Diabetic Shoes wear with ambulation Sep, Active Zofran ODT 4 MG Orally every 8 hrs 1 tablet 8h 10 Active Furosemide 40 mg Orally Once a day 2 tablet 24h 30 Active Cinnamon 500 mg Orally Once a day 4 capsules 24h Active Amitriptyline HCl 25 MG Orally hs 1-3 tablets PRN 30 Active Wheelchair DX Non-healing right ankle fracture Jul, Active Reglan 10 mg Orally 4 times [...]
--- OUTSIDE RECORDS SUMMARY | 2018-07-12 09:17 | XMS REPORT ---
Author Author OLYA WILLIS Organization [employer] Address Unknown Phone Unavailable Care Team Providers Care Warehouse Logistics Coordinator Name Role Phone OLYA WILLIS CP Unavailable Allergies No Known Allergies Problems Problem Type Condition Code Onset Dates Condition Status Problem Paresthesias R20.2 Active Problem Chronic kidney disease N18.9 Active Problem Polyneuropathy in diabetes 357.2 Active Problem Diabetes mellitus E11.9 Active Problem Hypertension I10 Active Medications No Known Medications Results No Known Results Summary Purpose [employer] Submission
--- OUTSIDE RECORDS SUMMARY | 2018-07-12 09:17 | XMS REPORT ---
Author Author OLYA WILLIS [facility] [employer] Address Unknown Phone Unavailable Care Team Providers Care Shaft Tender Name Role Phone OLYA WILLIS CP Unavailable Allergies No Known Allergies Problems Problem Type Condition ICD-9 Code Onset Dates Condition Status Problem Hyperkalemia 276.7 Active Problem Hypopotassemia 276.8 Active Problem Gastroparesis 536.3 Active Assessment Hyperkalemia 276.7 Active Problem Restless legs syndrome [RLS] 333.94 Active Problem Essential hypertension, benign 401.1 Active Problem Asthma 493.90 Active Problem Polyneuropathy in diabetes 357.2 Active Problem Diabetes mellitus without mention of complication, type II or unspecified type, not stated as uncontrolled 250.00 Active Problem Esophageal reflux 530.81 Active Problem Other chronic pain 338.29 Active Medications No Known Medications Procedures Procedure Coding System Code Date VENIPUNCT, ROUTINE* CPT-4 82151 Jun 11, 2015 COMPREHEN METABOLIC PANEL CPT-4 24173 Jun 11, 2015 Results Name Result Date Reference Range Unit Abnormality Flag ROUTINE VENIPUNCTURE CMP Summary Purpose [employer] Submission
--- OUTSIDE RECORDS SUMMARY | 2018-07-12 09:18 | XMS REPORT ---
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 Phone OLYA WILLIS Unavailable PROBLEMS Type Condition ICD9-CM Code OUI38-MM Code Onset Dates Condition Status SNOMED Code Problem Venous insufficiency I87.2 Active 09543933 Problem Gastroparesis K31.84 Active 764118837 Problem GERD (gastroesophageal reflux disease) K21.9 Active 289574910 Problem Pressure ulcer of unspecified heel, stage 4 L89.604 Active 660122660 Problem Non-pressure chronic ulcer of right heel and midfoot with unspecified severity 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 Active 138493606 Problem Chronic skin ulcer with fat layer exposed L98.492 Active 13767714 Problem Type 2 diabetes mellitus with diabetic autonomic (poly)neuropathy E11.43 Active 792419241 Problem Type 2 diabetes mellitus with foot ulcer E11.621 Active 37191823852221 Problem Chronic osteomyelitis of right foot with draining sinus M86.471 Active 902175201366054 Problem Diabetes mellitus E11.9 Active 17175276 Problem Chronic kidney disease N18.9 Active 892113261 Problem Paresthesias R20.2 Active 01058071 Problem Hypertension I10 Active 79931187 Problem Diabetic polyneuropathy associated with type 2 diabetes mellitus E11.42 Active 86192366 ALLERGIES No Information ENCOUNTERS Encounter Location Date Diagnosis [facility] [id number] [address] Apr, [facility] [id number] [address] 0759 Mar, Decubitus ulcer of right heel, stage 3 L89.613 [facility] [address] [id number] [address] 1678 Mar, [facility] [id number] [place] [address] 68425- 2464 Mar, Pressure ulcer of unspecified heel, stage 4 L89.604 and Type 2 diabetes mellitus with foot ulcer E11.621 [facility] [id number] [place] [address] 49163- 7714 Mar, Encounter for medication monitoring Z51.81 [facility] [address] [address]10- 6312 Mar, Type 2 diabetes mellitus with foot ulcer E11.621 and Non- pressure chronic ulcer of right heel and midfoot with unspecified severity L97.419 [facility] [address] 97268- 4372 February, [facility] [address] 41623- 4336 Jan, Right ankle pain M25.571 [facility] [address] 30372- 3025 Dec, Right ankle pain M25.571 [facility] [id number] [place] [address] 34521- 8895 Dec, [facility] [id number] [place] [address] 47224- 1492 Dec, [facility] [id number] [place] [address] 89794- 1021 Dec, Right ankle pain M25.571 [facility] [address] 25720- 8285 Dec, Chronic skin ulcer with fat layer exposed L98.492 ; Type 2 diabetes mellitus with diabetic autonomic (poly)neuropathy E11.43 and Hypertension I10 [facility] [id number] [place] [address] 05998- 9818 Nov, [facility] [id number] [place] [address] 19592- 2341 Nov, [facility] [id number] [place] [address] 50846- 9937 Nov, [facility] [id number] [place] [address] 44396- 5329 Nov, Right ankle pain M25.571 and Chronic osteomyelitis of right foot with draining sinus M86.471 [facility] [id number] [place] [address] 86278- 5638 Oct, Right ankle pain M25.571 [facility] [id number] [place] [address] 97271- 8849 Oct, [facility] [address] 98605- 1354 Sep, Diabetes mellitus E11.9 [facility] [id number] [place] [address] 01074- 1269 Sep, Diabetic polyneuropathy associated with type 2 diabetes mellitus E11.42 and Venous insufficiency I87.2 [facility] [id number] [place] [address] 08590- 1612 Sep, Right ankle pain M25.571 [facility] [id number] [place] [address] 97189- 0001 Aug, Right ankle pain M25.571 [facility] [id number] [place] [address] 01227- 1412 Aug, Chronic osteomyelitis of right foot with draining sinus M86.471 [facility] [id number] [place] [address] 14048- 7377 Aug, [facility] [id number] [place] [address] 83197- 0218 Aug, [facility] [id number] [place] [address] 76381- 3153 Aug, Chronic osteomyelitis of right foot with draining sinus M86.471 [facility] [id number] [place] [address] 77054- 9403 Jul, [facility] [id number] [place] [address] 36767- 8603 Jul, [facility] [id number] [place] [address] 66933- 1352 Jul, Chronic kidney disease N18.9 [facility] [address] 27791- 0505 Jul, Right ankle pain M25.571 [facility] [address] 23922- 8854 Jul, Non-healing ulcer of right foot, unspecified ulcer stage L97.519 [facility] [address] 68330- 2511 Jul, Chronic skin ulcer with fat layer exposed L98.492 [facility] [address] 84746- 0090 Jul, Deformity of right ankle joint M21.961 [facility] [id number] [place] [address] 04577- 2472 Jun, [facility] [address] 83450- 2916 Jun, Diabetes mellitus E11.9 ; Skin ulcer of right foot with fat layer exposed L97.512 and Encounter for immunization Z23 [facility] [id number] [place] [address] 29929- 2454 Jun, Right ankle pain M25.571 [facility] [address] 77609- 9546 May, Right ankle pain M25.571 [facility] [address] 73419- 2105 Apr, Right ankle pain M25.571 [facility] [id number] [place] [address] 22515- 1782 Mar, Right ankle pain M25.571 [facility] [id number] [place] [address] 19065- 5924 Mar, [facility] [id number] [place] [address] 94994- 2023 February, Diabetes mellitus E11.9 and Diabetic polyneuropathy associated with type 2 diabetes mellitus E11.42 [facility] [id number] [place] [address] 40647- 2005 February, Hyperkalemia E87.5 [facility] [id number] [place] [address] 48434- 3596 February, Right ankle pain M25.571 [facility] [id number] [place] [address] 36565- 8863 Jan, Right ankle pain M25.571 [facility] [id number] [place] [address] 31292- 3180 Dec, Right ankle pain M25.571 [facility] [id number] [place] [address] 58074- 1184 Dec, Right ankle pain M25.571 [facility] [id number] [place] [address] 98051- 4942 Nov, [facility] [id number] [place] [address] 00161- 0715 Nov, Diabetes mellitus E11.9 ; Hypertension I10 ; Gastroparesis K31.84 and Type 2 diabetes mellitus with diabetic autonomic (poly)neuropathy E11.43 [facility] [id number] [place] [address] 29300- 5077 Nov, Right ankle pain M25.571 [facility] [id number] [place] [address] 26633- 1661 Oct, Right ankle pain M25.571 [facility] [id number] [place] [address] 28539- 9132 Oct, [facility] [id number] [place] [address] 25551- 0793 Oct, [facility] [id number] [place] [address] 26214- 5081 Sep, [facility] [id number] [place] [address] 89521- 1820 Sep, Hypertension I10 [facility] [address] 32773- 1350 Sep, Chronic kidney disease N18.9 ; Right ankle pain M25.571 and GERD (gastroesophageal reflux disease) K21.9 [facility] [address] 91851- 4275 Jul, [facility] [address] 27343- 7146 Jul, Encounter for immunization Z23 ; Venous insufficiency I87.2 and Diabetic polyneuropathy associated with type 2 diabetes mellitus E11.42 [facility] [id number] [place] [address] 25269- 9121 Jul, [facility] [address] 04668- 8568 Jul, Diabetes mellitus E11.9 [facility] [id number] [place] [address] 88441- 2482 May, [facility] [id number] [place] [address] 82390- 0372 Apr, [facility] [id number] [place] [address] 12241- 8294 Mar, Right ankle pain M25.571 [facility] [address] 78587- 6073 Mar, [facility] [id number] [place] [address] 62803- 9033 February, Paresthesias R20.2 [facility] [address] [place] [address]- 7644 February, [facility] [id number] [place] [address] 97787- 7847 February, 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 [facility] [id number] [place] [address] 75925- 4693 February, Diabetes mellitus E11.9 [facility] [address] 52435- 6957 February, [facility] [id number] [place] [address] 89525- 7862 February, Polyneuropathy in diabetes 357.2 and Paresthesias R20.2 [facility] [id number] [place] [address] 04500- 2512 February, [facility] [address] 62588- 9651 February, [facility] [id number] [place] [address] 16459- 1771 February, [facility] [id number] [place] [address] 55255- 1324 February, Diabetes mellitus E11.9 [facility] [id number] [place] [address] 62167- 6434 February, [facility] [id number] [place] [address] 71618- 3942 February, Hyperkalemia E87.5 [facility] [id number] [place] [address] 54423- 7079 Jan, Hypertension I10 [facility] [id number] [place] [address] 55926- 5109 Jan, Insomnia G47.00 [facility] [id number] [place] [address] 78300- 9151 Jan, [facility] [id number] [place] [address] 41509- 5551 Jan, [facility] [id number] [place] [address] 98382- 9313 Jan, [facility] [id number] [place] [address] 217125- 1737 Dec, Right ankle pain M25.571 [facility] [id number] [place] [address] 73353- 4512 Dec, GERD (gastroesophageal reflux disease) K21.9 [facility] [id number] [place] [address] 81582- 4108 Dec, Insomnia G47.00 [facility] [id number] [place] [address] 12782- 4646 Dec, Hypertension I10 and Hyperkalemia 276.7 [facility] [id number] [place] [address] 87192- 9695 Dec, Chronic kidney disease N18.9 [facility] [id number] [place] [address] 65563- 1335 Dec, [facility] [id number] [place] [address] 54044- 1321 Dec, Hyperkalemia E87.5 [facility] [id number] [place] [address] 07363- 9440 Dec, Chronic kidney disease N18.9 and Right ankle pain M25.571 [facility] [id number] [place] [address] 79886- 9363 Nov, GERD (gastroesophageal reflux disease) K21.9 [facility] [id number] [place] [address] 67356- 4965 Nov, Right ankle pain M25.571 [facility] [id number] [place] [address] 21319- 6215 Nov, Diabetes mellitus E11.9 [facility] [id number] [address]- 7894 Oct, [facility] [address] [address]- 0488 Oct, [facility] [address] [address]- 3004 Oct, [facility] [id number] [place] [address] 88735- 7045 Oct, Hyperkalemia E87.5 [facility] [address] [place] [address] 60562- 6721 Oct, [facility] [id number] [place] [address] 75779- 6203 Oct, Hyperkalemia E87.5 [facility] [id number] [place] [address] 30320- 3006 Sep, [facility] [address] [address]- 4796 Sep, [facility] [address] [address]- 9914 Sep, [facility] [id number] [place] [address] 24727- 3635 Sep, [facility] [address] [address]- 8592 Sep, Right ankle pain M25.571 [facility] [address] [address]- 4143 30 Aug, 2015 Chronic kidney disease N18.9 [facility] [address] [address]- 1167 Aug, [facility] [address] [address]- 2547 Aug, Hyperkalemia E87.5 [facility] [id number] [place] [address] 40107- 9091 Aug, [facility] [id number] [place] [address] 68926- 6770 Jul, [facility] [id number] [place] [address] 44693- 1565 Jul, [facility] [id number] [place] [address] 30574- 7034 Jul, [facility] [id number] [place] [address] 76560- 8906 Jul, Diabetes mellitus E11.9 ; Encounter for immunization Z23 ; Hypertension I10 and Hyperkalemia E87.5 [facility] [id number] [place] [address] 49348- 1413 Jul, [facility] [id number] [place] [address] 44785- 5610 Jul, Hyperkalemia E87.5 [facility] [id number] [place] [address] 76746- 9880 Jul, Hyperkalemia E87.5 [facility] [id number] [place] [address] 86849- 2256 Jun, [facility] [id number] [place] [address] 45665- 9728 Jun, [facility] [id number] [place] [address] 20527- 8749 15 Jun, 2015 [facility] [id number] [place] [address] 82401- 7913 Jun, [facility] [id number] [place] [address] 46741- 7809 May, [facility] [id number] [place] [address] 25630- 0191 May, [facility] [id number] [place] [address] 23640- 5442 May, [facility] [address] [facility] [id number] [place] [address]- 2556 May, Hyperkalemia 276.7 [facility] [place] [facility] [address] [facility] [id number] [place] [address]- 4126 May, [facility] [place] [facility] [address] [facility] [id number] [place] [address]- 0089 Apr, Hyperkalemia 276.7 [facility] [place] [facility] [address] [facility] [id number] [place] [address]- 5788 Apr, [facility] [place] [facility] [address] [facility] [id number] [place] [address]- 7572 Apr, [facility] [place] [facility] [address] [facility] [id number] [place] [address]- 4288 Apr, [facility] [place] [facility] [address] [facility] [id number] [place] [address]- 0935 Apr, [facility] [place] [facility] [address] [facility] [id number] [place] [address]- 6371 Apr, Hyperkalemia 276.7 [facility] [place] [facility] [id number] [address]- 7775 Apr, [facility] [place] [facility] [address] [facility] [id number] [place] [address]- 3152 Apr, [facility] [place] [facility] [address] [facility] [id number] [place] [address]- 3050 Mar, [facility] [place] [facility] [address] [facility] [id number] [place] [address]- 2541 Mar, Hyperkalemia 276.7 [facility] [place] [facility] [address] [facility] [id number] [place] [address]- 7327 Mar, Hyperkalemia 276.7 [facility] [place] [facility] [address] [facility] [id number] [place] [address]- 1946 Mar, [facility] [place] [facility] [id number] [address]- 9786 Mar, [facility] [address] [facility] [id number] [address]- 6905 Mar, [facility] [address] [facility] [id number] 9865 Mar, [facility] [address] [address]- 9254 Mar, Anserine bursitis 726.61 [facility] [address] [facility] [id number] [place] [address] 51459- 2405 Mar, Asthma 493.90 and Hyperkalemia 276.7 [facility] [id number] [place] [address] 574320- 8741 Mar, [facility] [address] [address]- 5893 February, [facility] [address] [address]- 3838 February, [facility] [id number] [address]- 3286 February, [facility] [address] [address]- 7912 February, [facility] [address] [address]- 8929 February, [facility] [id number] [address]- 3676 February, [facility] [address] [facility] [id number] [place] 6894 February, [facility] [id number]- 3132 February, [facility] [id number] [address]- 4640 February, [facility] [address] [address]- 1997 14 Jan, 2015 [facility] [place] [facility] [address] [id number] [place] [address]- 5221 Jan, [facility] [place] [facility] [address] [id number] [place] [address]- 9018 Dec, [facility] [place] [facility] [address] [id number] [place] [address]- 2870 Dec, [facility] [place] [facility] [address] [id number] [place] [address]- 1099 Dec, [facility] [place] [facility] [address] [id number] [place] [address]- 8729 Dec, [facility] [place] [facility] [address] [id number] [place] [address]- 1138 Dec, [facility] [place] [facility] [address] [id number] [place] [address]- 6440 Dec, [facility] [place] [facility] [address] [id number] [place] [address]- 6942 Dec, [facility] [place] [facility] [address] [id number] [place] [address]- 0727 Dec, [facility] [place] [facility] [address] [id number] [place] [address]- 3639 Dec, [facility] [place] [facility] [address] [id number] [place] [address]- 0254 Dec, [facility] [place] [facility] [address] [id number] [place] [address]- 8322 Dec, [facility] [place] [facility] [address] [id number] [place] [address]- 8650 Dec, [facility] [place] [facility] [address] [id number] [place] [address]- 0621 Dec, [facility] [place] [facility] [address] [id number] [place] [address]- 7663 Dec, [facility] [place] [facility] [address] [id number] [place] [address]- 6251 Nov, 2014 [facility] [place] [facility] [address] [id number] [place] [address]- 3504 Nov, 2014 [facility] [place] [facility] [address] [id number] [place] [address]- 4734 Nov, 2014 [facility] [place] [facility] [address] [id number] [place] [address]- 1686 Nov, 2014 [facility] [place] [facility] [address] [id number] [place] [address]- 9371 Nov, [facility] [place] [facility] [address] [id number] [place] [address]- 4148 Nov, [facility] [place] [facility] [address] [facility] [id number] [place] [address] Oct, [facility] [place] [facility] [address] [id number] [place] [address] Oct, [facility] [place] [facility] [address] [id number] [place] [address] Oct, [facility] [place] [facility] [address] [facility] [id number] [place] [address] Oct, [facility] [place] [facility] [address] [id number] [place] [address] Oct, [facility] [place] [facility] [address] [id number] [place] [address] Oct, [facility] [place] [facility] [address] [id number] [place] [address] Sep, [facility] [place] [facility] [address] [id number] [place] [address] Sep, [facility] [place] [facility] [address] [id number] [place] [address] Sep, [facility] [place] [facility] [address] [id number] [address] Sep, [facility] [place] [facility] [address] [id number] [place] [address] Sep, [facility] [place] [facility] [address] [id number] [place] [address] Sep, [facility] [place] [facility] [address] [id number] [place] [address] Aug, [facility] [place] [facility] [address] [id number] [place] [address] Aug, [facility] [place] [facility] [address] [id number] [place] [address] Aug, [facility] [place] [facility] [address] [id number] [place] [address] Aug, [facility] [place] [facility] [address] [id number] [place] [address] Aug, [facility] [place] [facility] [address] [id number] [place] [address] Aug, [facility] [place] [facility] [address] [id number] [place] [address] Jul, [facility] [place] [facility] [address] [id number] [place] [address] 30 Jul, 2014 [facility] [place] [facility] [address] [id number] [address] Jul, [facility] [place] [facility] [address] [id number] [address] Jul, [facility] [place] [facility] [address] [id number] [place] [address] Jul, [facility] [place] [facility] [address] [id number] [place] [address] Jul, [facility] [place] [facility] [address] [id number] [place] [address] Jul, [facility] [place] [facility] [address] [id number] [place] [address] Jul, [facility] [place] [facility] [address] [id number] [place] [address] Jul, [facility] [place] [facility] [address] [id number] [place] [address] Jul, [facility] [place] [facility] [address] [id number] [place] [address] Jul, [facility] [place] [facility] [address] [id number] [place] [address] Jun, [facility] [place] [facility] [address] [id number] [place] [address] Jun, [facility] [place] [facility] [address] [id number] [place] [address] Jun, [facility] [place] [facility] [address] [id number] [place] [address] Jun, [facility] [place] [facility] [address] [id number] [place] [address] Apr, [facility] [place] [facility] [address] [id number] [place] [address]- [address] Apr, [facility] [place] [facility] [address] [id number] [place] [address] Apr, [facility] [place] [facility] [address] [id number] [place] [address] Apr, [facility] [place] [facility] [address] [id number] [place] [address] Mar, [facility] [place] [facility] [address] [id number] [place] [address] Mar, [facility] [place] [facility] [address] [id number] [place] [address] Mar, [facility] [place] [facility] [address] [id number] [place] [address] Mar, [facility] [address] [facility] [id number] [address] Mar, [facility] [address] [facility] [id number] [place] [address] Sep, [facility] [address] [facility] [id number] [place] [address] Sep, [facility] [address] [facility] [id number] [place] [address] Aug, IMMUNIZATIONS No Known Immunizations SOCIAL HISTORY Never Assessed REASON FOR VISIT Oxycodone 12/28 PLAN OF CARE VITAL SIGNS MEDICATIONS Medication [...]
--- OUTSIDE RECORDS SUMMARY | 2018-07-12 09:18 | XMS REPORT ---
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 Active 010461835 Problem Chronic skin ulcer with fat layer exposed L98.492 Active 82810106 Problem Type 2 diabetes mellitus with diabetic autonomic (poly)neuropathy E11.43 Active 745892686 Problem Type 2 diabetes mellitus with foot ulcer E11.621 Active 23702813515451 Problem Chronic osteomyelitis of right foot with draining sinus M86.471 Active [id number] Problem Diabetes mellitus E11.9 Active 42036638 Problem Chronic kidney disease N18.9 Active 799090589 Problem Paresthesias R20.2 Active 54421911 Problem Hypertension I10 Active 12516199 Problem Diabetic polyneuropathy associated with type 2 diabetes mellitus E11.42 Active 80714649 ALLERGIES No Information ENCOUNTERS Encounter Location Date Diagnosis [facility] [id number] [address] Apr, [facility] [id number] [address] Mar, Decubitus ulcer of right heel, stage 3 L89.613 [facility] [id number], [place] [address] 5[address] Mar, [facility] [id number] [place] [address] 01608- 5801 Mar, Pressure ulcer of unspecified heel, stage 4 L89.604 and Type 2 diabetes mellitus with foot ulcer E11.621 [place] [id number] [place] [address] 88452- 2804 Mar, Encounter for medication monitoring Z51.81 [place] [address] [address]- 7209 Mar, Type 2 diabetes mellitus with foot ulcer E11.621 and Non- pressure chronic ulcer of right heel and midfoot with unspecified severity L97.419 [place] [address] 8[address]79- 9770 February, [place] [address] 77472- 9178 Jan, Right ankle pain M25.571 [place] [address] 13859- 2601 Dec, Right ankle pain M25.571 [place] [id number] [place] [address] 87216- 7822 Dec, [place] [id number] [place] [address] 31403- 6531 Dec, [place] [id number] [place] [address] 65176- 1928 Dec, Right ankle pain M25.571 [place] [address] 84504- 0478 Dec, Chronic skin ulcer with fat layer exposed L98.492 ; Type 2 diabetes mellitus with diabetic autonomic (poly)neuropathy E11.43 and Hypertension I10 [place] [id number] [place] [address] 05393- 3392 Nov, [facility] [id number] [place] [address] 91689- 5293 Nov, [facility] [id number] [place] [address] 99696- 7459 Nov, [facility] [id number] [place] [address] 60391- 8125 Nov, Right ankle pain M25.571 and Chronic osteomyelitis of right foot with draining sinus M86.471 [place] [id number] [place] [address] 11162- 6869 Oct, Right ankle pain M25.571 [place] [id number] [place] [address] 91544- 8646 Oct, [place] [address] 75430- 4841 Sep, Diabetes mellitus E11.9 [place] [id number] [place] [address] 17706- 7743 Sep, Diabetic polyneuropathy associated with type 2 diabetes mellitus E11.42 and Venous insufficiency I87.2 [place] [id number] [place] [address] 12121- 4512 Sep, Right ankle pain M25.571 [place] [id number] [place] [address] 88003- 9578 Aug, Right ankle pain M25.571 [place] [id number] [place] [address] 63191- 9426 Aug, Chronic osteomyelitis of right foot with draining sinus M86.471 [place] [id number] [place] [address] 76325- 4014 Aug, [place] [id number] [place] [address] 32027- 6941 Aug, [place] [id number] [place] [address] 36298- 4072 Aug, Chronic osteomyelitis of right foot with draining sinus M86.471 [place] [id number] [place] [address] 99077- 4366 Jul, [place] [id number] [place] [address] 55895- 7596 Jul, [place] [id number] [place] [address] 99122- 2775 Jul, Chronic kidney disease N18.9 [facility] [address] 87443- 1209 Jul, Right ankle pain M25.571 [place] [address] 86672- 0347 Jul, Non-healing ulcer of right foot, unspecified ulcer stage L97.519 [place] [address] 61785- 9694 Jul, Chronic skin ulcer with fat layer exposed L98.492 [place] [address] 91648- 8794 Jul, Deformity of right ankle joint M21.961 [place] [id number] [place] [address] 11852- 5077 Jun, [place] [address] 33066- 6811 Jun, Diabetes mellitus E11.9 ; Skin ulcer of right foot with fat layer exposed L97.512 and Encounter for immunization Z23 [place] [id number] [place] [address] 01801- 4045 Jun, Right ankle pain M25.571 [place] [address] 07831- 2142 May, Right ankle pain M25.571 [place] [address] 49334- 1803 Apr, Right ankle pain M25.571 [place] [id number] [place] [address] 02500- 6195 Mar, Right ankle pain M25.571 [facility] [id number] [place] [address] 60229- 7678 Mar, [facility] [id number] [place] [address] 95785- 4929 February, Diabetes mellitus E11.9 and Diabetic polyneuropathy associated with type 2 diabetes mellitus E11.42 [place] [id number] [place] [address] 89582- 3031 February, Hyperkalemia E87.5 [facility] [id number] [place] [address] 48070- 3623 February, Right ankle pain M25.571 [place] [id number] [place] [address] 36918- 3656 Jan, Right ankle pain M25.571 [place] [id number] [place] [address] 75128- 2569 Dec, Right ankle pain M25.571 [place] [id number] [place] [address] 13644- 8310 Dec, Right ankle pain M25.571 [place] [id number] [place] [address] 45019- 6459 Nov, [place] [id number] [place] [address] 41240- 4828 Nov, Diabetes mellitus E11.9 ; Hypertension I10 ; Gastroparesis K31.84 and Type 2 diabetes mellitus with diabetic autonomic (poly)neuropathy E11.43 [place] [id number] [place] [address] 61342- 1512 Nov, Right ankle pain M25.571 [place] [id number] [place] [address] 71542- 8045 Oct, Right ankle pain M25.571 [facility] [id number] [place] [address] 55631- 7761 Oct, [facility] [id number] [place] [address] 10249- 1427 Oct, [facility] [id number] [place] [address] 15141- 6418 Sep, [facility] [id number] [place] [address] 84531- 1020 Sep, Hypertension I10 [facility] [address] 56272- 3133 Sep, Chronic kidney disease N18.9 ; Right ankle pain M25.571 and GERD (gastroesophageal reflux disease) K21.9 [facility] [address] 93654- 0200 Jul, [facility] [address] 07768- 9453 Jul, Encounter for immunization Z23 ; Venous insufficiency I87.2 and Diabetic polyneuropathy associated with type 2 diabetes mellitus E11.42 [facility] [id number] [place] [address] 86272- 3635 Jul, [facility] [address] 24116- 9841 Jul, Diabetes mellitus E11.9 [facility] [id number] [place] [address] 44111- 7821 May, [facility] [id number] [place] [address] 08832- 8304 Apr, [facility] [id number] [place] [address] 33821- 4884 Mar, Right ankle pain M25.571 [facility] [address] 77834- 4084 Mar, [facility] [id number] [place] [address] 26608- 5651 February, Paresthesias R20.2 [facility] [address] [place] [address]- 9691 February, [facility] [id number] [place] [address] 26636- 7965 February, 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 [facility] [id number] [place] [address] 78538- 5643 February, Diabetes mellitus E11.9 [facility] [address] 41162- 5377 February, [facility] [id number] [place] [address] 92545- 3637 February, Polyneuropathy in diabetes 357.2 and Paresthesias R20.2 [facility] [id number] [place] [address] 67994- 0764 February, [facility] [address] 71686- 7082 February, [facility] [id number] [place] [address] 01127- 9377 February, [facility] [id number] [place] [address] 51299- 4680 February, Diabetes mellitus E11.9 [facility] [id number] [place] [address] 69921- 2892 February, [facility] [id number] [place] [address] 88866- 3275 February, Hyperkalemia E87.5 [facility] [id number] [place] [address] 03852- 3986 Jan, Hypertension I10 [facility] [id number] [place] [address] 87978- 4123 Jan, Insomnia G47.00 [facility] [id number] [place] [address] 57446- 9437 Jan, [facility] [id number] [place] [address] 76549- 2094 Jan, [facility] [id number] [place] [address] 66408- 1532 Jan, [facility] [id number] [place] [address] 589261- 9385 Dec, Right ankle pain M25.571 [facility] [id number] [place] [address] 81284- 8009 Dec, GERD (gastroesophageal reflux disease) K21.9 [facility] [id number] [place] [address] 20885- 1861 Dec, Insomnia G47.00 [place] [id number] [place] [address] 29888- 7375 Dec, Hypertension I10 and Hyperkalemia 276.7 [place] [id number] [place] [address] 01885- 1646 Dec, Chronic kidney disease N18.9 [facility] [id number] [place] [address] 23381- 2278 Dec, [facility] [id number] [place] [address] 70186- 9783 Dec, Hyperkalemia E87.5 [place] [id number] [place] [address] 35616- 1856 Dec, Chronic kidney disease N18.9 and Right ankle pain M25.571 [facility] [id number] [place] [address] 01629- 3769 Nov, GERD (gastroesophageal reflux disease) K21.9 [facility] [id number] [place] [address] 16211- 2390 Nov, Right ankle pain M25.571 [facility] [id number] [place] [address] 94415- 7275 Nov, Diabetes mellitus E11.9 [facility] [id number], [place] [address]- 4514 Oct, [facility] [address], [place] [address]- 7331 Oct, [facility] [address], [place] [address]- 3410 Oct, [facility] [id number] [place] [address] 02725- 4245 Oct, Hyperkalemia E87.5 [facility] [id number] [place] [address] 75334- 8074 Oct, [facility] [id number] [place] [address] 87340- 2791 Oct, Hyperkalemia E87.5 [facility] [id number] [place] [address] 68111- 7030 Sep, [facility] [address], [place] [address]- 5836 Sep, [facility] [address], [place] [address]- 2497 Sep, [facility] [id number] [place] [address] 96707- 0917 Sep, [facility] [address], [place] [address]- 3349 Sep, Right ankle pain M25.571 [facility] [address], [place] [address]- 1050 30 Aug, 2015 Chronic kidney disease N18.9 [facility] [address], [place] [address]- 0172 Aug, [facility] [address], [place] [address]- 2547 Aug, Hyperkalemia E87.5 [facility] [id number] [place] [address] 90002- 8897 Aug, [facility] [id number] [place] [address] 00188- 2329 Jul, [facility] [id number] [place] [address] 12957- 9443 Jul, [facility] [id number] [place] [address] 17085- 7378 Jul, [facility] [id number] [place] [address] 65809- 1080 Jul, Diabetes mellitus E11.9 ; Encounter for immunization Z23 ; Hypertension I10 and Hyperkalemia E87.5 [facility] [id number] [place] [address] 95286- 9094 Jul, [facility] [id number] [place] [address] 85926- 7567 Jul, Hyperkalemia E87.5 [facility] [id number] [place] [address] 10611- 9172 Jul, Hyperkalemia E87.5 [facility] [id number] [place] [address] 54544- 3109 Jun, [facility] [id number] [place] [address] 36887- 9342 Jun, [facility] [id number] [place] [address] 00830- 1328 15 Jun, 2015 [facility] [id number] [place] [address] 55730- 0455 Jun, [facility] [id number] [place] [address] 83717- 4093 May, [facility] [id number] [place] [address] 76943- 2275 May, [facility] [id number] [place] [address] 78775- 5116 May, [facility] [address] [facility] [id number] [place] [address]- 8696 May, Hyperkalemia 276.7 [facility] [place] [facility] [address] [facility] [id number] [place] [address]- 1407 May, [facility] [place] [facility] [address] [facility] [id number] [place] [address]- 7278 Apr, Hyperkalemia 276.7 [facility] [place] [facility] [address] [facility] [id number] [place] [address]- 9667 Apr, [facility] [place] [facility] [address] [facility] [id number] [place] [address]- 5622 Apr, [facility] [place] [facility] [address] [facility] [id number] [place] [address]- 6223 Apr, [facility] [place] [facility] [address] [facility] [id number] [place] [address]- 7986 Apr, [facility] [place] [facility] [address] [facility] [id number] [place] [address]- 0140 Apr, Hyperkalemia 276.7 [facility] [place] [facility] [id number] [address]- 1390 Apr, [facility] [place] [facility] [address] [facility] [id number] [place] [address]- 6822 Apr, [facility] [place] [facility] [address] [facility] [id number] [place] [address]- 3674 Mar, [facility] [place] [facility] [address] [facility] [id number] [place] [address]- 2545 Mar, Hyperkalemia 276.7 [facility] [place] [facility] [address] [facility] [id number] [place] [address]- 1065 Mar, Hyperkalemia 276.7 [facility] [place] [facility] [address] [facility] [id number] [place] [address]- 8889 Mar, [facility] [place] [facility] [id number], [place] [address]- 0806 Mar, [facility] [place] [address] [facility] [id number], [place] [address]- 3013 Mar, [facility] [place] [address] [facility] [id number] [address]- 9551 Mar, [facility] [place] [address] [place] [address]- 2609 Mar, Anserine bursitis 726.61 [facility] [place] [address] [facility] [id number] [place] [address] 79923- 9098 Mar, Asthma 493.90 and Hyperkalemia 276.7 [facility] [place] [id number] [place] [address] 077940- 9495 Mar, [facility] [place] [address], [place] [address]- 0995 February, [facility] [place] [address], [place] [address]- 4469 February, [facility] [place] [id number], [place] [address]- 7483 February, [facility] [place] [address], [place] [address]- 0033 February, [facility] [place] [address], [place] [address]- 5736 February, [facility] [place] [id number], [place] [address]- 0052 February, [facility] [place] [address] [facility] [id number][place] 4600 February, [facility] [place] [id number] 7336 February, [facility] [place] [id number], [place] [address]- 1364 February, [facility] [place] [address], [place] [address]- 5671 14 Jan, 2015 [facility] [place] [facility] [address] [id number] [place] [address]- 3544 Jan, [facility] [place] [facility] [address] [id number] [place] [address]- 4609 Dec, [facility] [place] [facility] [address] [id number] [place] [address]- 0227 Dec, [facility] [place] [facility] [address] [id number] [place] [address]- 8633 Dec, [facility] [place] [facility] [address] [id number] [place] [address]- 5617 Dec, [facility] [place] [facility] [address] [id number] [place] [address]- 1375 Dec, [facility] [place] [facility] [address] [id number] [place] [address]- 6790 Dec, [facility] [place] [facility] [address] [id number] [place] [address] Dec, [facility] [place] [facility] [address] [id number] [place] [address] Dec, [facility] [place] [facility] [address] [id number] [place] [address] Dec, [facility] [place] [facility] [address] [id number] [place] [address] Dec, [facility] [place] [facility] [address] [id number] [place] [address] Dec, [facility] [place] [facility] [address] [id number] [place] [address] Dec, [facility] [place] [facility] [address] [id number] [place] [address] Dec, [facility] [place] [facility] [address] [id number] [place] [address] Dec, [facility] [place] [facility] [address] [id number] [place] [address] Nov, 2014 [facility] [place] [facility] [address] [id number] [place] [address] Nov, 2014 [facility] [place] [facility] [address] [id number] [place] [address] Nov, 2014 [facility] [place] [facility] [address] [id number] [place] [address] Nov, 2014 [facility] [place] [facility] [address] [id number] [place] [address] Nov, [facility] [place] [facility] [address] [id number] [place] [address] Nov, [facility] [place] [facility] [address] [facility] [id number] [place] [address] Oct, [facility] [place] [facility] [address] [id number] [place] [address] Oct, [facility] [place] [facility] [address] [id number] [place] [address] Oct, [facility] [place] [facility] [address] [facility] [id number] [place] [address] Oct, [facility] [place] [facility] [address] [id number] [place] [address] Oct, [facility] [place] [facility] [address] [id number] [place] [address] Oct, [facility] [place] [facility] [address] [id number] [place] [address] Sep, [facility] [place] [facility] [address] [id number] [place] [address] Sep, [facility] [place] [facility] [address] [id number] [place] [address] Sep, [facility] [place] [facility] [address] [id number] [address] Sep, [facility] [place] [facility] [address] [id number] [place] [address] Sep, [facility] [place] [facility] [address] [id number] [place] [address] Sep, [facility] [place] [facility] [address] [id number] [place] [address] Aug, [facility] [place] [facility] [address] [id number] [place] [address] Aug, [facility] [place] [facility] [address] [id number] [place] [address] Aug, [facility] [place] [facility] [address] [id number] [place] [address] Aug, [facility] [place] [facility] [address] [id number] [place] [address] Aug, [facility] [place] [facility] [address] [id number] [place] [address] Aug, [facility] [place] [facility] [address] [id number] [place] [address] Jul, [facility] [place] [facility] [address] [id number] [place] [address] 30 Jul, 2014 [facility] [place] [facility] [address] [id number], [place] [address] Jul, [facility] [place] [facility] [address] [id number], [place] [address] Jul, [facility] [place] [facility] [address] [id number] [place] [address] Jul, [facility] [place] [facility] [address] [id number] [place] [address] Jul, [facility] [place] [facility] [address] [id number], [place] [address] Jul, [facility] [place] [facility] [address] [id number] [place] [address] Jul, [facility] [place] [facility] [address] [id number] [place] [address] Jul, [facility] [place] [facility] [address] [id number] [place] [address] Jul, [facility] [place] [facility] [address] [id number] [place] [address] Jul, [facility] [place] [facility] [address] [id number] [place] [address] Jun, [facility] [place] [facility] [address] [id number] [place] [address] Jun, [facility] [place] [facility] [address] [id number] [place] [address] Jun, [facility] [place] [facility] [address] [id number] [place] [address] Jun, [facility] [place] [facility] [address] [id number] [place] [address] Apr, [facility] [place] [facility] [address] [id number] [place] [address] Apr, [facility] [place] [facility] [address] [id number] [place] [address] Apr, [facility] [place] [facility] [address] [id number] [place] [address] Apr, [facility] [place] [facility] [address] [id number] [place] [address] Mar, [facility] [place] [facility] [address] [id number] [place] [address] Mar, [facility] [place] [facility] [address] [id number] [place] [address] Mar, [facility] [place] [facility] [address] [id number] [place] [address] Mar, [facility] [address] [facility] [id number], [place] [address] Mar, [facility] [address] [facility] [id number], [place] [address] Sep, [facility] [address] [facility] [id number], [place] [address] Sep, [facility] [address] [facility] [id number], [place] [address] Aug, IMMUNIZATIONS No Known Immunizations SOCIAL HISTORY Never Assessed REASON FOR VISIT Requests return call PLAN OF CARE VITAL SIGNS MEDICATIONS Unknown [...]
--- OUTSIDE RECORDS SUMMARY | 2018-07-12 09:18 | XMS REPORT ---
Author Author OLYA WILLIS [facility] e[employer] Address Unknown Phone Unavailable Care Team Providers Care Communications Technologist Name Role Phone OLYA WILLIS CP Unavailable Allergies No Known Allergies Problems Problem Type Condition Code Onset Dates Condition Status Problem Hypopotassemia 276.8 Active Problem Polyneuropathy in diabetes 357.2 Active Problem Diabetes mellitus without mention of complication, type II or unspecified type, not stated as uncontrolled 250.00 Active Problem Hyperkalemia 276.7 Active Problem Gastroparesis 536.3 Active Problem Hypertension I10 Active Problem Asthma 493.90 Active Problem Diabetes mellitus E11.9 Active Problem Esophageal reflux 530.81 Active Problem Other chronic pain 338.29 Active Problem Restless legs syndrome [RLS] 333.94 Active Problem Essential hypertension, benign 401.1 Active Medications Medication Code System Code Instructions Start Date End Date Status Dosage oxycodone NDC 0 5 mg oral 4 hours January 14, 2015 take 1 tablet Results No Known Results Summary Purpose eClinical[employer] Submission
--- OUTSIDE RECORDS SUMMARY | 2018-07-12 09:19 | XMS REPORT ---
Author Author OLYA WILLIS Organization [employer] Address Unknown Phone Unavailable Care Team Providers Care Steam Trap Man Name Role Phone OLYA WILLIS CP Unavailable Allergies No Known Allergies Problems Problem Type Condition ICD-9 Code Onset Dates Condition Status Problem Hyperkalemia 276.7 Active Problem Hypopotassemia 276.8 Active Problem Gastroparesis 536.3 Active Problem Restless legs syndrome [RLS] 333.94 Active Problem Essential hypertension, benign 401.1 Active Problem Asthma 493.90 Active Problem Polyneuropathy in diabetes 357.2 Active Problem Diabetes mellitus without mention of complication, type II or unspecified type, not stated as uncontrolled 250.00 Active Problem Esophageal reflux 530.81 Active Problem Other chronic pain 338.29 Active Medications No Known Medications Results No Known Results Summary Purpose eClinicalWorks Submission
--- OUTSIDE RECORDS SUMMARY | 2018-07-12 09:19 | XMS REPORT ---
Author Author OLYA WILLIS Organization [facility] Address [address] [place] [address] Care Team Providers Care Plasterer Journeyman Name Role Phone OLYA WILLIS Unavailable PROBLEMS Type Condition ICD9-CM Code LYH66-CK Code Onset Dates Condition Status SNOMED Code Problem Venous insufficiency I87.2 Active 45456797 Problem Gastroparesis K31.84 Active 677689742 Problem GERD (gastroesophageal reflux disease) K21.9 Active 865459086 Problem Pressure ulcer of unspecified heel, stage 4 L89.604 Active 610136398 Problem Non-pressure chronic ulcer of right heel and midfoot with unspecified severity L97.419 Active 222606857 Problem Chronic skin ulcer with fat layer exposed L98.492 Active 72460225 Problem Type 2 diabetes mellitus with diabetic autonomic (poly)neuropathy E11.43 Active 825357803 Problem Type 2 diabetes mellitus with foot ulcer E11.621 Active 83459511100275 Problem Chronic osteomyelitis of right foot with draining sinus M86.471 Active 129696297982423 Problem Diabetes mellitus E11.9 Active 07027968 Problem Chronic kidney disease N18.9 Active 178305395 Problem Paresthesias R20.2 Active 83388576 Problem Hypertension I10 Active 79187631 Problem Diabetic polyneuropathy associated with type 2 diabetes mellitus E11.42 Active 00219693 ALLERGIES No Information ENCOUNTERS Encounter Location Date Diagnosis [facility] [id number] [address] Apr, [facility] [id number] [address]268 Mar, Decubitus ulcer of right heel, stage 3 L89.613 [facility] [id number] [address] Mar, [facility] [id number] [place] [address] 56626- 4020 Mar, Pressure ulcer of unspecified heel, stage 4 L89.604 and Type 2 diabetes mellitus with foot ulcer E11.621 [facility] [id number] [place] [address] 63156- 1770 Mar, Encounter for medication monitoring Z51.81 [facility] [address] 66720- 4353 Mar, Type 2 diabetes mellitus with foot ulcer E11.621 and Non- pressure chronic ulcer of right heel and midfoot with unspecified severity L97.419 [facility] [address] 44839- 5962 February, [facility] [address] 70179- 1825 Jan, Right ankle pain M25.571 [facility] [address] 47481- 0118 Dec, Right ankle pain M25.571 [facility] [id number] [place] [address] 31503- 9441 Dec, [facility] [id number] [place] [address] 07663- 7058 Dec, [facility] [id number] [place] [address] 20530- 4007 Dec, Right ankle pain M25.571 [facility] [address] 77723- 4193 Dec, Chronic skin ulcer with fat layer exposed L98.492 ; Type 2 diabetes mellitus with diabetic autonomic (poly)neuropathy E11.43 and Hypertension I10 [facility] [id number] [place] [address] 12853- 5976 Nov, [facility] [id number] [place] [address] 60343- 4318 Nov, [facility] [id number] [place] [address] 92791- 2479 Nov, [facility] [id number] [place] [address] 09346- 9339 Nov, Right ankle pain M25.571 and Chronic osteomyelitis of right foot with draining sinus M86.471 [facility] [id number] [place] [address] 89625- 8607 Oct, Right ankle pain M25.571 [facility] [id number] [place] [address] 41589- 6681 Oct, [facility] [address] 37604- 6626 Sep, Diabetes mellitus E11.9 [facility] [id number] [place] [address] 78602- 9462 Sep, Diabetic polyneuropathy associated with type 2 diabetes mellitus E11.42 and Venous insufficiency I87.2 [facility] [id number] [place] [address] 66799- 5303 Sep, Right ankle pain M25.571 [facility] [id number] [place] [address] 14283- 2887 Aug, Right ankle pain M25.571 [facility] [id number] [place] [address] 00988- 2779 Aug, Chronic osteomyelitis of right foot with draining sinus M86.471 [facility] [id number] [place] [address] 95249- 6534 Aug, [facility] [id number] [place] [address] 20639- 5441 Aug, [facility] [id number] [place] [address] 45477- 1809 Aug, Chronic osteomyelitis of right foot with draining sinus M86.471 [facility] [id number] [place] [address] 41263- 2489 Jul, [facility] [id number] [place] [address] 08366- 9729 Jul, [facility] [id number] [place] [address] 03396- 0555 Jul, Chronic kidney disease N18.9 [facility] [address] 34240- 1009 Jul, Right ankle pain M25.571 [facility] [facility] [address] 25229- 2497 Jul, Non-healing ulcer of right foot, unspecified ulcer stage L97.519 [facility] [address] 62039- 6025 Jul, Chronic skin ulcer with fat layer exposed L98.492 [facility] [address] 67022- 9657 Jul, Deformity of right ankle joint M21.961 [facility] [id number] [place] [address] 66132- 6347 Jun, [facility] [address] 89441- 7484 Jun, Diabetes mellitus E11.9 ; Skin ulcer of right foot with fat layer exposed L97.512 and Encounter for immunization Z23 [facility] [id number] [place] [address] 07870- 4784 Jun, Right ankle pain M25.571 [facility] [address] 46910- 3256 May, Right ankle pain M25.571 [facility] [address] 91845- 9064 Apr, Right ankle pain M25.571 [facility] [id number] [place] [address] 56253- 9903 Mar, Right ankle pain M25.571 [facility] [id number] [place] [address] 13489- 1651 Mar, [facility] [id number] [place] [address] 83611- 0427 February, Diabetes mellitus E11.9 and Diabetic polyneuropathy associated with type 2 diabetes mellitus E11.42 [facility] [id number] [place] [address] 68505- 9638 February, Hyperkalemia E87.5 [facility] [id number] [place] [address] 98027- 4711 February, Right ankle pain M25.571 [facility] [id number] [place] [address] 01318- 3415 Jan, Right ankle pain M25.571 [facility] [id number] [place] [address] 90682- 7613 Dec, Right ankle pain M25.571 [facility] [id number] [place] [address] 18390- 7621 Dec, Right ankle pain M25.571 [facility] [id number] [place] [address] 76184- 5847 Nov, [facility] [id number] [place] [address] 68600- 9583 Nov, Diabetes mellitus E11.9 ; Hypertension I10 ; Gastroparesis K31.84 and Type 2 diabetes mellitus with diabetic autonomic (poly)neuropathy E11.43 [facility] [id number] [place] [address] 29570- 9139 Nov, Right ankle pain M25.571 [facility] [id number] [place] [address] 40078- 7995 Oct, Right ankle pain M25.571 [facility] [id number] [place] [address] 45265- 0394 Oct, [facility] [id number] [place] [address] 98127- 3036 Oct, [facility] [id number] [place] [address] 60772- 7712 Sep, [facility] [id number] [place] [address] 90782- 2660 Sep, Hypertension I10 [facility] [address] 19946- 1953 Sep, Chronic kidney disease N18.9 ; Right ankle pain M25.571 and GERD (gastroesophageal reflux disease) K21.9 [facility] [address] 85108- 4906 Jul, [facility] [address] 76275- 5678 Jul, Encounter for immunization Z23 ; Venous insufficiency I87.2 and Diabetic polyneuropathy associated with type 2 diabetes mellitus E11.42 [facility] [id number] [place] [address] 16113- 9833 Jul, [facility] [address] 55601- 1715 Jul, Diabetes mellitus E11.9 [facility] [id number] [place] [address] 83677- 0111 May, [facility] [id number] [place] [address] 66511- 2508 Apr, [facility] [id number] [place] [address] 16772- 8577 Mar, Right ankle pain M25.571 [facility] [address] 74458- 6877 Mar, [facility] [id number] [place] [address] 18404- 0398 February, Paresthesias R20.2 [facility] [address] [place] [address]- 5610 February, [facility] [id number] [place] [address] 42916- 1454 February, 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 [facility] [id number] [place] [address] 94833- 2327 February, Diabetes mellitus E11.9 [facility] [address] 88091- 4102 February, [facility] [id number] [place] [address] 71078- 2057 February, Polyneuropathy in diabetes 357.2 and Paresthesias R20.2 [facility] [id number] [place] [address] 21992- 7072 February, [facility] [address] 47797- 2825 February, [facility] [id number] [place] [address] 73315- 1663 February, [facility] [id number] [place] [address] 01356- 7437 February, Diabetes mellitus E11.9 [facility] [id number] [place] [address] 88502- 9092 February, [facility] [id number] [place] [address] 33036- 5932 February, Hyperkalemia E87.5 [facility] [id number] [place] [address] 63986- 7801 Jan, Hypertension I10 [facility] [id number] [place] [address] 63459- 4482 Jan, Insomnia G47.00 [facility] [id number] [place] [address] 52239- 5987 Jan, [facility] [id number] [place] [address] 25298- 1406 Jan, [facility] [id number] [place] [address] 53939- 2874 Jan, [facility] [id number] [place] [address] 569170- 2066 Dec, Right ankle pain M25.571 [facility] [id number] [place] [address] 86565- 8316 Dec, GERD (gastroesophageal reflux disease) K21.9 [facility] [id number] [place] [address] 51458- 6893 Dec, Insomnia G47.00 [facility] [id number] [place] [address] 21487- 9079 Dec, Hypertension I10 and Hyperkalemia 276.7 [facility] [id number] [place] [address] 75685- 6390 Dec, Chronic kidney disease N18.9 [facility] [id number] [place] [address] 80585- 5749 Dec, [facility] [id number] [place] [address] 80155- 4597 Dec, Hyperkalemia E87.5 [facility] [id number] [place] [address] 34258- 2460 Dec, Chronic kidney disease N18.9 and Right ankle pain M25.571 [facility] [id number] [place] [address] 73229- 5229 Nov, GERD (gastroesophageal reflux disease) K21.9 [facility] [id number] [place] [address] 02164- 9516 Nov, Right ankle pain M25.571 [facility] [id number] [place] [address] 87063- 3521 Nov, Diabetes mellitus E11.9 [facility] [id number] [address]- 1644 Oct, [facility] [address] [address]- 8287 Oct, [facility] [address] [address]- 1110 Oct, [facility] [id number] [place] [address] 02081- 3119 Oct, Hyperkalemia E87.5 [facility] [id number] [place] [address] 85316- 8142 Oct, [facility] [id number] [place] [address] 57377- 1814 Oct, Hyperkalemia E87.5 [facility] [id number] [place] [address] 20701- 0582 Sep, [facility] [address] [address]- 9308 Sep, [facility] [address] [address]- 4752 Sep, [facility] [id number] [place] [address] 59876- 3449 Sep, [facility] [address] [address]- 4043 Sep, Right ankle pain M25.571 [facility] [address] [address]- 0847 30 Aug, 2015 Chronic kidney disease N18.9 [facility] [address] [address]- 5149 Aug, [facility] [address] [address]- 2548 Aug, Hyperkalemia E87.5 [facility] [id number] [place] [address] 79850- 9753 Aug, [facility] [id number] [place] [address] 24244- 7239 Jul, [facility] [id number] [place] [address] 55817- 3867 Jul, [facility] [id number] [place] [address] 43151- 5186 Jul, [facility] [id number] [place] [address] 84054- 4072 Jul, Diabetes mellitus E11.9 ; Encounter for immunization Z23 ; Hypertension I10 and Hyperkalemia E87.5 [facility] [id number] [place] [address] 15139- 1957 Jul, [facility] [id number] [place] [address] 03575- 9862 Jul, Hyperkalemia E87.5 [facility] [id number] [place] [address] 84830- 1973 Jul, Hyperkalemia E87.5 [facility] [id number] [place] [address] 90186- 7386 Jun, [facility] [id number] [place] [address] 33421- 4601 Jun, [facility] [id number] [place] [address] 78985- 9285 15 Jun, 2015 [facility] [id number] [place] [address] 25565- 7940 Jun, [facility] [id number] [place] [address] 16987- 7448 May, [facility] [id number] [place] [address] 27228- 1151 May, [facility] [id number] [place] [address] 90534- 9096 May, [facility] [address] [facility] [id number] [place] [address]- 2190 May, Hyperkalemia 276.7 [facility] [place] [facility] [address] [facility] [id number] [place] [address]- 6063 May, [facility] [place] [facility] [address] [facility] [id number] [place] [address]- 5532 Apr, Hyperkalemia 276.7 [facility] [place] [facility] [address] [facility] [id number] [place] [address]- 8839 Apr, [facility] [place] [facility] [address] [facility] [id number] [place] [address]- 7888 Apr, [facility] [place] [facility] [address] [facility] [id number] [place] [address]- 3240 Apr, [facility] [place] [facility] [address] [facility] [id number] [place] [address]- 1536 Apr, [facility] [place] [facility] [address] [facility] [id number] [place] [address]- 5336 Apr, Hyperkalemia 276.7 [facility] [place] [facility] [id number] [address]- 6667 Apr, [facility] [place] [facility] [address] [facility] [id number] [place] [address]- 9334 Apr, [facility] [place] [facility] [address] [facility] [id number] [place] [address]- 9869 Mar, [facility] [place] [facility] [address] [facility] [id number] [place] [address]- 2542 Mar, Hyperkalemia 276.7 [facility] [place] [facility] [address] [facility] [id number] [place] [address]- 0913 Mar, Hyperkalemia 276.7 [facility] [place] [facility] [address] [facility] [id number] [place] [address]- 0967 Mar, [facility] [place] [facility] [id number] [address]- 9557 Mar, [facility] [address] [facility] [id number] [address]- 0573 Mar, [facility] [address] [facility] [id number]- 9645 Mar, [facility] [address] [address]- 2911 Mar, Anserine bursitis 726.61 [facility] [address] [facility] [id number] [place] [address] 24529- 8119 Mar, Asthma 493.90 and Hyperkalemia 276.7 [facility] [id number] [place] [address] 573110- 7227 Mar, [facility] [address] [address]- 0902 February, [facility] [address] [address]- 3009 February, [facility] [id number] [address]- 8726 February, [facility] [address] [address]- 5393 February, [facility] [address] [address]- 4411 February, [facility] [id number] [address]- 0932 February, [facility] [address] [facility] [id number]48[place]- 8556 February, [facility] [id number] 4883 February, [facility] [id number] [address]- 1180 February, [facility] [address] [address]- 2270 14 Jan, 2015 [facility] [place] [facility] [address] [id number] [place] [address]- 8798 Jan, [facility] [place] [facility] [address] [id number] [place] [address]- 5389 Dec, [facility] [place] [facility] [address] [id number] [place] [address]- 1644 Dec, [facility] [place] [facility] [address] [id number] [place] [address]- 8423 Dec, [facility] [place] [facility] [address] [id number] [place] [address]- 4818 Dec, [facility] [place] [facility] [address] [id number] [place] [address]- 5819 Dec, [facility] [place] [facility] [address] [id number] [place] [address]- 2681 Dec, [facility] [place] [facility] [address] [id number] [place] [address]- 9522 Dec, [facility] [place] [facility] [address] [id number] [place] [address]- 5461 Dec, [facility] [place] [facility] [address] [id number] [place] [address]- 1217 Dec, [facility] [place] [facility] [address] [id number] [place] [address]- 4144 Dec, [facility] [place] [facility] [address] [id number] [place] [address]- 4280 Dec, [facility] [place] [facility] [address] [id number] [place] [address]- 1883 Dec, [facility] [place] [facility] [address] [id number] [place] [address]- 2618 Dec, [facility] [place] [facility] [address] [id number] [place] [address]- 3444 Dec, [facility] [place] [facility] [address] [id number] [place] [address]- 6033 Nov, 2014 [facility] [place] [facility] [address] [id number] [place] [address]- 9729 Nov, 2014 [facility] [place] [facility] [address] [id number] [place] [address]- 8462 Nov, 2014 [facility] [place] [facility] [address] [id number] [place] [address]- 7681 Nov, 2014 [facility] [place] [facility] [address] [id number] [place] [address]- 3945 Nov, [facility] [place] [facility] [address] [id number] [place] [address]- 9198 Nov, [facility] [place] [facility] [address] [facility] [id number] [place] [address]- 3621 Oct, [facility] [place] [facility] [address] [id number] [place] [address]- 7920 Oct, [facility] [place] [facility] [address] [id number] [place] [address]- 7017 Oct, [facility] [place] [facility] [address] [facility] [id number] [place] [address] Oct, [facility] [place] [facility] [address] [id number] [place] [address] Oct, [facility] [place] [facility] [address] [id number] [place] [address] Oct, [facility] [place] [facility] [address] [id number] [place] [address] Sep, [facility] [place] [facility] [address] [id number] [place] [address] Sep, [facility] [place] [facility] [address] [id number] [place] [address] Sep, [facility] [place] [facility] [address] [id number][place] [address] Sep, [facility] [place] [facility] [address] [id number] [place] [address] Sep, [facility] [place] [facility] [address] [id number] [place] [address] Sep, [facility] [place] [facility] [address] [id number] [place] [address] Aug, [facility] [place] [facility] [address] [id number] [place] [address] Aug, [facility] [place] [facility] [address] [id number] [place] [address] Aug, [facility] [place] [facility] [address] [id number] [place] [address] Aug, [facility] [place] [facility] [address] [id number] [place] [address] Aug, [facility] [place] [facility] [address] [id number] [place] [address] Aug, [facility] [place] [facility] [address] [id number] [place] [address] Jul, [facility] [place] [facility] [address] [id number] [place] [address] 30 Jul, 2014 [facility] [place] [facility] [address] [id number][place] [address] Jul, [facility] [place] [facility] [address] [id number][place] [address] Jul, [facility] [place] [facility] [address] [id number] [place] [address] Jul, [facility] [place] [facility] [address] [id number] [place] [address] Jul, [facility] [place] [facility] [address] [id number][place] [address] Jul, [facility] [place] [facility] [address] [id number] [place] [address] Jul, [facility] [place] [facility] [address] [id number] [place] [address] Jul, [facility] [place] [facility] [address] [id number] [place] [address] Jul, [facility] [place] [facility] [address] [id number] [place] [address] Jul, [facility] [place] [facility] [address] [id number] [place] [address] Jun, [facility] [place] [facility] [address] [id number] [place] [address] Jun, [facility] [place] [facility] [address] [id number] [place] [address] Jun, [facility] [place] [facility] [address] [id number] [place] [address] Jun, [facility] [place] [facility] [address] [id number] [place] [address] Apr, [facility] [place] [facility] [address] [id number] [place] [address] Apr, [facility] [place] [facility] [address] [id number] [place] [address] Apr, [facility] [place] [facility] [address] [id number] [place] [address] Apr, [facility] [place] [facility] [address] [id number] [place] [address] Mar, [facility] [place] [facility] [address] [id number] [place] [address] Mar, [facility] [place] [facility] [address] [id number] [place] [address] Mar, [facility] [place] [facility] [address] [id number] [place] [address] Mar, [facility] [address] [facility] [id number][place] [address] Mar, [facility] [address] [facility] [id number][place] [address] Sep, [facility] [address] [facility] [id number][place] [address] Sep, [facility] [address] [facility] [id number][place] [address] Aug, IMMUNIZATIONS No Known Immunizations SOCIAL HISTORY [...]
--- OUTSIDE RECORDS SUMMARY | 2018-07-12 09:19 | XMS REPORT ---
Author Author OLYA WILLIS Organization [facility] Address [address] [place] [address] Care Team Providers Care Jive Developer Name Role Phone OLYA WILLIS Unavailable PROBLEMS Type Condition ICD9-CM Code SLY68-VB Code Onset Dates Condition Status SNOMED Code Problem Venous insufficiency I87.2 Active 92393860 Problem Gastroparesis K31.84 Active 218745352 Problem GERD (gastroesophageal reflux disease) K21.9 Active 931520599 Problem Pressure ulcer of unspecified heel, stage 4 L89.604 Active 505325751 Problem Non-pressure chronic ulcer of right heel and midfoot with unspecified severity L97.419 Active 998030649 Problem Chronic skin ulcer with fat layer exposed L98.492 Active 36601512 Problem Type 2 diabetes mellitus with diabetic autonomic (poly)neuropathy E11.43 Active 999931265 Problem Type 2 diabetes mellitus with foot ulcer E11.621 Active 01200663844651 Problem Chronic osteomyelitis of right foot with draining sinus M86.471 Active 709932582042932 Problem Diabetes mellitus E11.9 Active 26059403 Problem Chronic kidney disease N18.9 Active 295144809 Problem Paresthesias R20.2 Active 42355154 Problem Hypertension I10 Active 92028884 Problem Diabetic polyneuropathy associated with type 2 diabetes mellitus E11.42 Active 05905588 ALLERGIES No Information ENCOUNTERS Encounter Location Date Diagnosis [facility] [id number], [place] [address] Apr, [facility] [id number] [address] Mar, Decubitus ulcer of right heel, stage 3 L89.613 [facility] [id number], [place] [address] 134[address] Mar, [facility] [id number] [place] [address] 95038- 2093 Mar, Pressure ulcer of unspecified heel, stage 4 L89.604 and Type 2 diabetes mellitus with foot ulcer E11.621 [facility] [id number] [place] [address] 45452- 8234 Mar, Encounter for medication monitoring Z51.81 [facility] [address] 35851- 1478 Mar, Type 2 diabetes mellitus with foot ulcer E11.621 and Non- pressure chronic ulcer of right heel and midfoot with unspecified severity L97.419 [facility] [address] 55404- 7047 February, [facility] [address] 91457- 0243 Jan, Right ankle pain M25.571 [facility] [address] 64072- 0622 Dec, Right ankle pain M25.571 [facility] [id number] [place] [address] 85313- 3753 Dec, [facility] [id number] [place] [address] 95096- 1259 Dec, [facility] [id number] [place] [address] 05493- 5437 Dec, Right ankle pain M25.571 [facility] [address] 49447- 8669 Dec, Chronic skin ulcer with fat layer exposed L98.492 ; Type 2 diabetes mellitus with diabetic autonomic (poly)neuropathy E11.43 and Hypertension I10 [facility] [id number] [place] [address] 38889- 5517 Nov, [facility] [id number] [place] [address] 04893- 6480 Nov, [facility] [id number] [place] [address] 50025- 4422 Nov, [facility] [id number] [place] [address] 07442- 4314 Nov, Right ankle pain M25.571 and Chronic osteomyelitis of right foot with draining sinus M86.471 [facility] [id number] [place] [address] 66230- 3813 Oct, Right ankle pain M25.571 [facility] [id number] [place] [address] 30605- 2246 Oct, [facility] [address] 29027- 3529 Sep, Diabetes mellitus E11.9 [facility] [id number] [place] [address] 48572- 3655 Sep, Diabetic polyneuropathy associated with type 2 diabetes mellitus E11.42 and Venous insufficiency I87.2 [facility] [id number] [place] [address] 65900- 2156 Sep, Right ankle pain M25.571 [facility] [id number] [place] [address] 23810- 6942 Aug, Right ankle pain M25.571 [facility] [id number] [place] [address] 59542- 0759 Aug, Chronic osteomyelitis of right foot with draining sinus M86.471 [facility] [id number] [place] [address] 37500- 8909 Aug, [facility] [id number] [place] [address] 83912- 2239 Aug, [facility] [id number] [place] [address] 41687- 0359 Aug, Chronic osteomyelitis of right foot with draining sinus M86.471 [facility] [id number] [place] [address] 40213- 7998 Jul, [facility] [id number] [place] [address] 93763- 2053 Jul, [facility] [id number] [place] [address] 91000- 3558 Jul, Chronic kidney disease N18.9 [facility] [address] 94265- 6188 Jul, Right ankle pain M25.571 [facility] [facility] [address] 24858- 8859 Jul, Non-healing ulcer of right foot, unspecified ulcer stage L97.519 [facility] [address] 93551- 9972 Jul, Chronic skin ulcer with fat layer exposed L98.492 [facility] [address] 50858- 5699 Jul, Deformity of right ankle joint M21.961 [facility] [id number] [place] [address] 91652- 9377 Jun, [facility] [address] 18176- 6498 Jun, Diabetes mellitus E11.9 ; Skin ulcer of right foot with fat layer exposed L97.512 and Encounter for immunization Z23 [facility] [id number] [place] [address] 01243- 3189 Jun, Right ankle pain M25.571 [facility] [address] 97688- 9917 May, Right ankle pain M25.571 [facility] [address] 72622- 5123 Apr, Right ankle pain M25.571 [facility] [id number] [place] [address] 77893- 4819 Mar, Right ankle pain M25.571 [facility] [id number] [place] [address] 41685- 9089 Mar, [facility] [id number] [place] [address] 63257- 0623 February, Diabetes mellitus E11.9 and Diabetic polyneuropathy associated with type 2 diabetes mellitus E11.42 [facility] [id number] [place] [address] 95801- 8793 February, Hyperkalemia E87.5 [facility] [id number] [place] [address] 44675- 3568 February, Right ankle pain M25.571 [facility] [id number] [place] [address] 70845- 9437 Jan, Right ankle pain M25.571 [facility] [id number] [place] [address] 79603- 4013 Dec, Right ankle pain M25.571 [facility] [id number] [place] [address] 70387- 5265 Dec, Right ankle pain M25.571 [facility] [id number] [place] [address] 89457- 5997 Nov, [facility] [id number] [place] [address] 95944- 0434 Nov, Diabetes mellitus E11.9 ; Hypertension I10 ; Gastroparesis K31.84 and Type 2 diabetes mellitus with diabetic autonomic (poly)neuropathy E11.43 [facility] [id number] [place] [address] 71922- 8839 Nov, Right ankle pain M25.571 [facility] [id number] [place] [address] 13844- 6357 Oct, Right ankle pain M25.571 [facility] [id number] [place] [address] 14573- 6999 Oct, [facility] [id number] [place] [address] 91615- 1895 Oct, [facility] [id number] [place] [address] 20463- 2720 Sep, [facility] [id number] [place] [address] 41953- 0304 Sep, Hypertension I10 [facility] [address] 20915- 6853 Sep, Chronic kidney disease N18.9 ; Right ankle pain M25.571 and GERD (gastroesophageal reflux disease) K21.9 [facility] [address] 13973- 9448 Jul, [facility] [address] 83259- 3518 Jul, Encounter for immunization Z23 ; Venous insufficiency I87.2 and Diabetic polyneuropathy associated with type 2 diabetes mellitus E11.42 [facility] [id number] [place] [address] 66681- 4008 Jul, [facility] [address] 77943- 7652 Jul, Diabetes mellitus E11.9 [facility] [id number] [place] [address] 66884- 5734 May, [facility] [id number] [place] [address] 16430- 3768 Apr, [facility] [id number] [place] [address] 30963- 9106 Mar, Right ankle pain M25.571 [facility] [address] 14785- 5219 Mar, [facility] [id number] [place] [address] 87992- 4676 February, Paresthesias R20.2 [facility] [address] [place] [address]- 3328 February, [facility] [id number] [place] [address] 00338- 7244 February, 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 [facility] [id number] [place] [address] 16275- 5706 February, Diabetes mellitus E11.9 [facility] [address] 87717- 6957 February, [facility] [id number] [place] [address] 58003- 5682 February, Polyneuropathy in diabetes 357.2 and Paresthesias R20.2 [facility] [id number] [place] [address] 26804- 0738 February, [facility] [address] 67189- 2033 February, [facility] [id number] [place] [address] 43985- 3783 February, [facility] [id number] [place] [address] 41469- 4765 February, Diabetes mellitus E11.9 [facility] [id number] [place] [address] 96510- 9350 February, [facility] [id number] [place] [address] 67218- 6464 February, Hyperkalemia E87.5 [facility] [id number] [place] [address] 71248- 7626 Jan, Hypertension I10 [facility] [id number] [place] [address] 77114- 5475 Jan, Insomnia G47.00 [facility] [id number] [place] [address] 51403- 7101 Jan, [facility] [id number] [place] [address] 86343- 0538 Jan, [facility] [id number] [place] [address] 96750- 3741 Jan, [facility] [id number] [place] [address] 195153- 4797 Dec, Right ankle pain M25.571 [facility] [id number] [place] [address] 58425- 3774 Dec, GERD (gastroesophageal reflux disease) K21.9 [facility] [id number] [place] [address] 57513- 4996 Dec, Insomnia G47.00 [facility] [id number] [place] [address] 46315- 3125 Dec, Hypertension I10 and Hyperkalemia 276.7 [facility] [id number] [place] [address] 61402- 0274 Dec, Chronic kidney disease N18.9 [facility] [id number] [place] [address] 61823- 1936 Dec, [facility] [id number] [place] [address] 36531- 7062 Dec, Hyperkalemia E87.5 [facility] [id number] [place] [address] 58230- 6438 Dec, Chronic kidney disease N18.9 and Right ankle pain M25.571 [facility] [id number] [place] [address] 99557- 9805 Nov, GERD (gastroesophageal reflux disease) K21.9 [facility] [id number] [place] [address] 14483- 3701 Nov, Right ankle pain M25.571 [facility] [id number] [place] [address] 41317- 1427 Nov, Diabetes mellitus E11.9 [facility] [id number] [address]- 3810 Oct, [facility] [address], [place] [address]- 3154 Oct, [facility] [address], [place] [address]- 3747 Oct, [facility] [id number] [place] [address] 42837- 9722 Oct, Hyperkalemia E87.5 [facility] [id number] [place] [address] 40891- 9064 Oct, [facility] [id number] [place] [address] 43360- 0942 Oct, Hyperkalemia E87.5 [facility] [id number] [place] [address] 15645- 6604 Sep, [facility] [address], [place] [address]- 9715 Sep, [facility] [address], [place] [address]- 1577 Sep, [facility] [id number] [place] [address] 84525- 9703 Sep, [facility] [address], [place] [address]- 8927 Sep, Right ankle pain M25.571 [facility] [address], [place] [address]- 3775 30 Aug, 2015 Chronic kidney disease N18.9 [facility] [address], [place] [address]- 6252 Aug, [facility] [address], [place] [address]- 2541 Aug, Hyperkalemia E87.5 [facility] [id number] [place] [address] 82731- 5792 Aug, [facility] [id number] [place] [address] 27186- 4885 Jul, [facility] [id number] [place] [address] 77422- 5391 Jul, [facility] [id number] [place] [address] 20205- 3437 Jul, [facility] [id number] [place] [address] 09753- 1134 Jul, Diabetes mellitus E11.9 ; Encounter for immunization Z23 ; Hypertension I10 and Hyperkalemia E87.5 [facility] [id number] [place] [address] 68585- 0821 Jul, [facility] [id number] [place] [address] 55321- 6367 Jul, Hyperkalemia E87.5 [facility] [id number] [place] [address] 98266- 7668 Jul, Hyperkalemia E87.5 [facility] [id number] [place] [address] 66442- 1840 Jun, [facility] [id number] [place] [address] 81867- 6084 Jun, [facility] [id number] [place] [address] 17646- 5067 15 Jun, 2015 [facility] [id number] [place] [address] 34547- 4008 Jun, [facility] [id number] [place] [address] 03331- 5629 May, [facility] [id number] [place] [address] 19663- 0431 May, [facility] [id number] [place] [address] 25289- 4103 May, [facility] [address] [facility] [id number] [place] [address]- 3586 May, Hyperkalemia 276.7 [facility] [place] [facility] [address] [facility] [id number] [place] [address]- 2949 May, [facility] [place] [facility] [address] [facility] [id number] [place] [address]- 9379 Apr, Hyperkalemia 276.7 [facility] [place] [facility] [address] [facility] [id number] [place] [address]- 2789 Apr, [facility] [place] [facility] [address] [facility] [id number] [place] [address]- 2830 Apr, [facility] [place] [facility] [address] [facility] [id number] [place] [address]- 1430 Apr, [facility] [place] [facility] [address] [facility] [id number] [place] [address]- 5048 Apr, [facility] [place] [facility] [address] [facility] [id number] [place] [address]- 6829 Apr, Hyperkalemia 276.7 [facility] [place] [facility] [id number] [place] [address]- 6492 Apr, [facility] [place] [facility] [address] [facility] [id number] [place] [address]- 1656 Apr, [facility] [place] [facility] [address] [facility] [id number] [place] [address]- 9416 Mar, [facility] [place] [facility] [address] [facility] [id number] [place] [address]- 2544 Mar, Hyperkalemia 276.7 [facility] [place] [facility] [address] [facility] [id number] [place] [address]- 6309 Mar, Hyperkalemia 276.7 [facility] [place] [facility] [address] [facility] [id number] [place] [address]- 8331 Mar, [facility] [place] [facility] [id number], [place] [address]- 6599 Mar, [facility] [place] [address] [facility] [id number], [place] [address]- 1193 Mar, [facility] [place] [address] [facility] [id number] [address]- 9166 Mar, [facility] [place] [address], [place] [address]- 8580 Mar, Anserine bursitis 726.61 [facility] [place] [address] [facility] [id number] [place] [address] 39625- 0594 Mar, Asthma 493.90 and Hyperkalemia 276.7 [facility] [place] [id number] [place] [address] 317790- 2467 Mar, [facility] [place] [address], [place] [address]- 2465 February, [facility] [place] [address], [place] [address]- 1304 February, [facility] [place] [id number], [place] [address]- 9004 February, [facility] [place] [address], [place] [address]- 6958 February, [facility] [place] [address], [place] [address]- 8949 February, [facility] [place] [id number], [place] [address]- 8641 February, [facility] [place] [address] [facility] [id number][place]- 3160 February, [facility] [place] [id number] 4784 February, [facility] [place] [id number], [place] [address]- 4050 February, [facility] [place] [address], [place] [address]- 2413 14 Jan, 2015 [facility] [place] [facility] [address] [id number] [place] [address] Jan, [facility] [place] [facility] [address] [id number] [place] [address] Dec, [facility] [place] [facility] [address] [id number] [place] [address] Dec, [facility] [place] [facility] [address] [id number] [place] [address] Dec, [facility] [place] [facility] [address] [id number] [place] [address] Dec, [facility] [place] [facility] [address] [id number] [place] [address] Dec, [facility] [place] [facility] [address] [id number] [place] [address] Dec, [facility] [place] [facility] [address] [id number] [place] [address] Dec, [facility] [place] [facility] [address] [id number] [place] [address] Dec, [facility] [place] [facility] [address] [id number] [place] [address] Dec, [facility] [place] [facility] [address] [id number] [place] [address] Dec, [facility] [place] [facility] [address] [id number] [place] [address] Dec, [facility] [place] [facility] [address] [id number] [place] [address] Dec, [facility] [place] [facility] [address] [id number] [place] [address] Dec, [facility] [place] [facility] [address] [id number] [place] [address] Dec, [facility] [place] [facility] [address] [id number] [place] [address] Nov, 2014 [facility] [place] [facility] [address] [id number] [place] [address] Nov, 2014 [facility] [place] [facility] [address] [id number] [place] [address] Nov, 2014 [facility] [place] [facility] [address] [id number] [place] [address] Nov, 2014 [facility] [place] [facility] [address] [id number] [place] [address] Nov, [facility] [place] [facility] [address] [id number] [place] [address] Nov, [facility] [place] [facility] [address] [facility] [id number] [place] [address] Oct, [facility] [place] [facility] [address] [id number] [place] [address] Oct, [facility] [place] [facility] [address] [id number] [place] [address] Oct, [facility] [place] [facility] [address] [facility] [id number] [place] [address] Oct, [facility] [place] [facility] [address] [id number] [place] [address] Oct, [facility] [place] [facility] [address] [id number] [place] [address] Oct, [facility] [place] [facility] [address] [id number] [place] [address] Sep, [facility] [place] [facility] [address] [id number] [place] [address] Sep, [facility] [place] [facility] [address] [id number] [place] [address] Sep, [facility] [place] [facility] [address] [id number], [place] [address] Sep, [facility] [place] [facility] [address] [id number] [id number] [address] Sep, [facility] [place] [facility] [address] [id number] [place] [address]- [address] Sep, [facility] [place] [facility] [address] [id number] [place] Aug, [facility] [place] [facility] [address] [id number] [place] [address] Aug, [facility] [place] [facility] [address] [id number] [place] [address] Aug, [facility] [place] [facility] [address] [id number] [place] [address] Aug, [facility] [place] [facility] [address] [id number] [place] [address] Aug, [facility] [place] [facility] [address] [id number] [place] [address] Aug, [facility] [place] [facility] [address] [id number] [place] [address] Jul, [facility] [place] [facility] [address] [id number] [place] [address] 30 Jul, 2014 [facility] [place] [facility] [address] [id number], [place] [address] Jul, [facility] [place] [facility] [address] [id number], [place] [address] Jul, [facility] [place] [facility] [address] [id number] [place] [address] Jul, [facility] [place] [facility] [address] [id number] [place] [address] Jul, [facility] [place] [facility] [address] [id number], [place] [address] Jul, [facility] [place] [facility] [address] [id number] [place] [address] Jul, [facility] [place] [facility] [address] [id number] [place] [address] Jul, [facility] [place] [facility] [address] [id number] [place] [address] Jul, [facility] [place] [facility] [address] [id number] [place] [address] Jul, [facility] [place] [facility] [address] [id number] [place] [address] Jun, [facility] [place] [facility] [address] [id number] [place] [address] Jun, [facility] [place] [facility] [address] [id number] [place] [address] Jun, [facility] [place] [facility] [address] [id number] [place] [address] Jun, [facility] [place] [facility] [address] [id number] [place] [address] Apr, [facility] [place] [facility] [address] [id number] [place] [address] Apr, [facility] [place] [facility] [address] [id number] [place] [address] Apr, [facility] [place] [facility] [address] [id number] [place] [address] Apr, [facility] [place] [facility] [address] [id number] [place] [address] Mar, [facility] [place] [facility] [address] [id number] [place] [address] Mar, [facility] [place] [facility] [address] [id number] [place] [address] Mar, [facility] [place] [facility] [address] [id number] [place] [address] Mar, [facility] [address] [facility] [id number], [place] [address] Mar, [facility] [address] [facility] [id number], [place] [address] Sep, [facility] [address] [facility] [id number], [place] [address] Sep, [facility] [address] [facility] [id number], [place] [address] Aug, IMMUNIZATIONS No Known Immunizations SOCIAL HISTORY Never Assessed REASON FOR VISIT no answer PLAN OF CARE VITAL SIGNS MEDICATIONS Unknown [...]
--- OUTSIDE RECORDS SUMMARY | 2018-07-12 09:19 | XMS REPORT ---
Author Author OLYA WILLIS [facility] e[employer] Address Unknown Phone Unavailable Care Team Providers Care Mechatronics Engineer Name Role Phone OLYA WILLIS Unavailable Allergies No Known Allergies Problems Problem Type Condition Code Onset Dates Condition Status Problem Diabetes mellitus without mention of complication, type II or unspecified type, not stated as uncontrolled 250.00 Active Problem Other chronic pain 338.29 Active Problem Polyneuropathy in diabetes 357.2 Active Problem Diabetes mellitus E11.9 Active Problem Hypertension I10 Active Problem Chronic kidney disease N18.9 Active Problem Essential hypertension, benign 401.1 Active Problem Esophageal reflux 530.81 Active Problem Asthma 493.90 Active Problem Restless legs syndrome [RLS] 333.94 Active Assessment Hyperkalemia E87.5 Active Problem Hyperkalemia 276.7 Active Problem Gastroparesis 536.3 Active Problem Hypopotassemia 276.8 Active Medications Medication Code System Code Instructions Start Date End Date Status Dosage Zofran ODT [facility] [address]-87 4 MG Orally every 8 hrs Oct 23, 2014 1 tablet Results No Known Results Summary Purpose eClinicalWorks Submission
--- OUTSIDE RECORDS SUMMARY | 2018-07-12 09:20 | XMS REPORT ---
Author Author OLYA WILLIS [facility] Address [address] [place] [address] Care Team Providers Care Apartment Coordinator Name Role Phone OLYA WILLIS Unavailable PROBLEMS Type Condition ICD9-CM Code [id number] Code Onset Dates Condition Status SNOMED Code Problem Hypertension I10 Active 59893524 Problem Chronic kidney disease N18.9 Active 392665231 Problem Diabetes mellitus E11.9 Active 40874137 Problem Type 2 diabetes mellitus with diabetic autonomic (poly)neuropathy E11.43 Active 620523168 Problem Gastroparesis K31.84 Active 207406374 Problem Diabetic polyneuropathy associated with type 2 diabetes mellitus E11.42 Active 90452034 Problem Paresthesias R20.2 Active 43516608 Problem GERD (gastroesophageal reflux disease) K21.9 Active 192902889 Problem Venous insufficiency I87.2 Active 96098460 ALLERGIES Unknown Allergies SOCIAL HISTORY No smoking Hx information available PLAN OF CARE VITAL SIGNS MEDICATIONS Medication Instructions Dosage Frequency Start Date End Date Duration Status oxycodone 5 mg oral 4 times a day 1 tablet 6h Dec, Active RESULTS No Results PROCEDURES No Known procedures IMMUNIZATIONS No Known Immunizations
--- OUTSIDE RECORDS SUMMARY | 2018-07-12 09:20 | XMS REPORT ---
Author Author OLYA WILLIS [facility] Address [address] [place] [address] Care Team Providers Care Preschool Teacher Aide Name Role Phone OLYA WILLIS Unavailable PROBLEMS Type Condition ICD9-CM Code BQT69-SA Code Onset Dates Condition Status SNOMED Code Problem Chronic kidney disease N18.9 Active 274949863 Problem Diabetic polyneuropathy associated with type 2 diabetes mellitus E11.42 Active 57228152 Problem Paresthesias R20.2 Active 65027508 Problem Hypertension I10 Active 88820973 Problem Diabetes mellitus E11.9 Active 16207926 Problem Chronic osteomyelitis of right foot with draining sinus M86.471 Active [id number] Problem Chronic skin ulcer with fat layer exposed L98.492 Active 25806701 Problem GERD (gastroesophageal reflux disease) K21.9 Active 242912175 Problem Venous insufficiency I87.2 Active 49921256 Problem Type 2 diabetes mellitus with diabetic autonomic (poly)neuropathy E11.43 Active 159235559 Problem Gastroparesis K31.84 Active 352871056 ALLERGIES No Information ENCOUNTERS Encounter Location Date Diagnosis [place] [id number] [place] [address] 20184- 3333 Jan, Right ankle pain M25.571 [place] [address] [place] [id number] [place] [address] 39541- 6727 Dec, Right ankle pain M25.571 [facility] [place] [id number] [place] [address] 14686- 8675 Dec, [place] [address] [id number] [place] [address] 48410- 8106 Dec, [facility], [place] [address] [id number] [place] [address] 42362- 2742 Dec, Right ankle pain M25.571 [place] [address] [address]- 8231 Dec, Chronic skin ulcer with fat layer exposed L98.492 ; Type 2 diabetes mellitus with diabetic autonomic (poly)neuropathy E11.43 and Hypertension I10 [facility], [place] [address] [place] [address] 64277- 7266 Nov, [facility], [place] [address] [place] [id number] [place] [address] 55797- 5301 Nov, [facility], [place] [address] [id number] [place] [address] 45116- 3259 Nov, [place] [address] [id number] [place] [address] 74009- 1252 Nov, Right ankle pain M25.571 and Chronic osteomyelitis of right foot with draining sinus M86.471 [place] [address] [id number] [place] [address] 78548- 3769 Oct, Right ankle pain M25.571 [facility], [place] [address] [id number] [place] [address] 60666- 3129 Oct, [facility], [place] [address] [id number] [place] [address] 51786- 3497 Sep, Diabetes mellitus E11.9 [facility], [place] [address] [place] [address] 94132- 2855 Sep, Diabetic polyneuropathy associated with type 2 diabetes mellitus E11.42 and Venous insufficiency I87.2 [facility], [place] [address] [place] [address] 64775- 6122 Sep, Right ankle pain M25.571 [facility], [place] [address] [id number] [place] [address] 57520- 8766 Aug, Right ankle pain M25.571 [facility], [place] [address] [place] [address] 56913- 2610 Aug, Chronic osteomyelitis of right foot with draining sinus M86.471 [facility], [place] [address] [place] [address] 03288- 1794 Aug, [facility], [place] [address] [place] [id number] [place] [address] 72964- 9532 Aug, [facility], [place] [address] [id number] [place] [address] 49744- 6277 Aug, Chronic osteomyelitis of right foot with draining sinus M86.471 [facility], [place] [address] [place] [id number] [place] [address] 26006- 3566 Jul, [facility], [place] [address] [place] [id number] [place] [address] 99816- 3424 Jul, [facility], [place] [address] [place] [id number] [place] [address] 85030- 2939 Jul, Chronic kidney disease N18.9 [facility], [place] [address] 64932- 2272 Jul, Right ankle pain M25.571 [facility], [place] [address] [id number] [place] [address] 61961- 2293 Jul, Non-healing ulcer of right foot, unspecified ulcer stage L97.519 [facility], [place] [address] [place] [id number] [place] [address] 57755- 6396 Jul, Chronic skin ulcer with fat layer exposed L98.492 [facility], [place] [address] [place] [id number] [place] [address] 64947- 9282 Jul, Deformity of right ankle joint M21.961 [facility], [place] [address] [place] [id number] [place] [address] 17942- 7524 Jun, [facility], [place] [address] [place] [id number] [place] [address] 35540- 8732 Jun, Diabetes mellitus E11.9 ; Skin ulcer of right foot with fat layer exposed L97.512 and Encounter for immunization Z23 [facility], [place] [address] [place] [id number] [place] [address] 53415- 7379 Jun, Right ankle pain M25.571 [facility], [place] [address] [place] [id number] [place] [address] 92825- 3060 May, Right ankle pain M25.571 [facility], [place] [address] [id number] [place] [address] 827811- 4598 Apr, Right ankle pain M25.571 [facility], [place] [address] [place] [id number] [place] [address] 28686- 0853 Mar, Right ankle pain M25.571 [facility], [place] [address] [place] [id number] [place] [address] 34056- 4808 Mar, [facility], [place] [address] [place] [id number] [place] [address] 68606- 8935 February, Diabetes mellitus E11.9 and Diabetic polyneuropathy associated with type 2 diabetes mellitus E11.42 [facility], [place] [address] [place] [id number] [place] [address] 18115- 0293 February, Hyperkalemia E87.5 [facility], [place] [address] [id number] [place] [address] 06174- 0890 February, Right ankle pain M25.571 [facility], [place] [address] [place] [id number] [place] [address] 31400- 1034 Jan, Right ankle pain M25.571 [facility], [place] [address] [place] [id number] [place] [address] 07952- 2718 Dec, Right ankle pain M25.571 [facility], [place] [address] [place] [id number] [place] [address] 07585- 0078 Dec, Right ankle pain M25.571 [facility], [place] [address] [place] [id number] [place] [address] 021173- 6298 Nov, [facility], [place] [address] [place] [id number] [place] [address] 06766- 4992 Nov, Diabetes mellitus E11.9 ; Hypertension I10 ; Gastroparesis K31.84 and Type 2 diabetes mellitus with diabetic autonomic (poly)neuropathy E11.43 [facility], [place] [address] [place] [id number] [place] [address] 37744- 7429 Nov, Right ankle pain M25.571 [facility], [place] [address] [place] [id number] [place] [address] 93472- 6349 Oct, Right ankle pain M25.571 [facility], [place] [address] 63630- 9704 Oct, [place] [address] 66059- 9261 Oct, [place] [address] 64337- 8938 Sep, [place] [address] 15262- 6858 Sep, Hypertension I10 [place] [address] 57290- 8913 Sep, Chronic kidney disease N18.9 ; Right ankle pain M25.571 and GERD (gastroesophageal reflux disease) K21.9 [place] [address] [place] [id number] [place] [address] 10689- 9686 Jul, [place] [address] [place] [id number] [place] [address] 71597- 8633 Jul, Encounter for immunization Z23 ; Venous insufficiency I87.2 and Diabetic polyneuropathy associated with type 2 diabetes mellitus E11.42 [place] [address] [place] [id number] [place] [address] 79926- 2004 Jul, [place] [address] 77562- 3899 Jul, Diabetes mellitus E11.9 [facility], [place] [address] [place] [id number] [place] [address] 11419- 6316 May, [place] [address] 39019- 5574 Apr, [facility], [place] [address] [place] [address] 13053- 1861 Mar, Right ankle pain M25.571 [facility], [place] [address] [place] [id number] [place] [address] 41986- 4947 Mar, [facility], [place] [address] [place] [id number] [place] [address] 84775- 9857 February, Paresthesias R20.2 [facility], [place] [address] [place] [id number] [place] [address] 05480- 1437 February, [facility], [place] [address] [place] [id number] [place] [address] 63310- 2886 February, 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 [facility], [place] [address] [place] [id number] [place] [address] 16690- 9481 February, Diabetes mellitus E11.9 [facility], [place] [address] [place] [id number] [place] [address] 77119- 9625 February, [facility], [place] [address] [place] [address] 24845- 3713 February, Polyneuropathy in diabetes 357.2 and Paresthesias R20.2 [facility], [place] [address] [address]- 6307 February, [facility], [place] [address] [place] [id number] [place] [address] 07487- 7943 February, [facility], [place] [address] [address]- 9110 February, [facility], [place] [address] [place] [id number] [place] [address] 73347- 3178 February, Diabetes mellitus E11.9 [facility], [place] [address] [address]- 8812 February, [facility], [place] [address] [place] [id number] [place] [address] 45981- 0973 February, Hyperkalemia E87.5 [facility], [place] [address], [place] [address]- 7033 Jan, Hypertension I10 [facility], [place] [address] [place] [id number] [place] [address] 92982- 1901 Jan, Insomnia G47.00 [facility], [place] [address] [place] [id number] [place] [address] 88732- 4003 Jan, [facility], [place] [address] [place] [id number] [place] [address] 73661- 4888 Jan, [facility], [place] [address] [place] [id number] [place] [address] 01682- 9683 Jan, [facility], [place] [address] [place] [id number] [place] [address] 41598- 6118 Dec, Right ankle pain M25.571 [facility], [place] [address] [place] [id number] [place] [address] 73235- 2501 Dec, GERD (gastroesophageal reflux disease) K21.9 [facility], [place] [address] [place] [id number] [place] [address] 94350- 3983 Dec, Insomnia G47.00 [facility], [place] [address] [place] [id number] [place] [address] 44145- 6780 Dec, Hypertension I10 and Hyperkalemia 276.7 [facility], [place] [address] [place] [place] [id number] [place] [address] 29323- 1491 Dec, Chronic kidney disease N18.9 [facility], [place] [address] [place] [address] 27094- 4425 Dec, [facility], [place] [address] [place] [id number] [place] [address] 37891- 1742 Dec, Hyperkalemia E87.5 [facility], [place] [address] [place] [address] 47694- 7529 Dec, Chronic kidney disease N18.9 and Right ankle pain M25.571 [facility], [place] [address] [address]- 7957 Nov, GERD (gastroesophageal reflux disease) K21.9 [facility], [place] [address] [place] [id number] [place] [address] 33491- 2874 Nov, Right ankle pain M25.571 [facility], [place] [address] [place] [address] 96750- 3815 Nov, Diabetes mellitus E11.9 [facility], [place] [address] [place] [id number] [place] [address] 41121- 0065 Oct, [facility], [place] [address] [place] [id number] [place] [address] 67493- 2171 Oct, [facility], [place] [address] [place] [id number] [place] [address] 71191- 8638 Oct, [facility], [place] [address] [place] [place] [id number] [place] [address] 79858- 8032 Oct, Hyperkalemia E87.5 [facility], [place] [address] [place] [address] 78204- 8010 Oct, [facility], [place] [address] [place] [address] 92668- 7553 Oct, Hyperkalemia E87.5 [facility], [place] [address], [place] [address]- 0954 Sep, [facility], [place] [address] [address]- 7510 Sep, [facility], [place] [address] [address]- 7102 Sep, [facility], [place] [address] [address]- 8984 Sep, [facility], [place] [address], [place] [address]- 4784 Sep, Right ankle pain M25.571 [facility], [place] [address] [place] [address] 63845- 8714 Aug, Chronic kidney disease N18.9 [facility], [place] [address] [place] [id number] [place] [address] 79654- 6374 Aug, [facility], [place] [id number] [place] [address] 63524- 5201 Aug, Hyperkalemia E87.5 [facility], [place] [id number] [place] [address] 60975- 2968 Aug, [facility], [place] [id number] [place] [address] 25644- 9254 Jul, [facility], [place] [id number] [place] [address] 26544- 6205 Jul, [facility], [place] [address] 73110- 5262 Jul, [facility], [place] [address] [id number] [place] [address] 96270- 7548 Jul, Diabetes mellitus E11.9 ; Encounter for immunization Z23 ; Hypertension I10 and Hyperkalemia E87.5 [facility], [place] [address] [id number] [place] [address] 57224- 9653 Jul, [facility], [place] [id number] [place] [address] 73386- 7382 Jul, Hyperkalemia E87.5 [facility], [place] [id number] [place] [address] 44277- 3341 Jul, Hyperkalemia E87.5 [facility], [place] [id number] [place] [address] 85847- 6690 Jun, [facility], [place] [id number] [place] [address] 30316- 2371 Jun, [facility], [place] [id number] [place] [address] 37789- 4433 Jun, [facility] [address] [id number] [place] [address]- 1155 Jun, [facility] [place] [facility] [address] [id number] [place] [address]- 5820 May, [facility] [place] [facility] [address] [id number] [place] [address]- 7718 May, [facility] [place] [facility] [address] [id number] [place] [address]- 1764 May, [facility] [place] [facility] [address] [id number] [place] [address]- 9802 May, Hyperkalemia 276.7 [facility] [place] [facility] [address] [id number] [place] [address]- 7271 May, [facility] [place] [facility] [address] [facility] [id number] [place] [address]- 3356 Apr, Hyperkalemia 276.7 [facility] [place] [facility] [address] [id number] [place] [address]- 6273 Apr, [facility] [place] [facility] [address] [id number] [place] [address]- 8289 Apr, [facility] [place] [facility] [address] [facility] [id number] [place] [address]- 1605 Apr, [facility] [place] [facility] [address] [id number] [place] [address]- 8345 Apr, [facility] [place] [facility] [address] [id number] [place] [address]- 6476 14 Apr, 2015 Hyperkalemia 276.7 [facility] [place] [facility] [address] [id number] [place] [address]- 0502 Apr, [facility] [place] [facility] [address] [facility] [id number] [place] [address]- 2551 Apr, [facility] [place] [facility] [address] [facility] [id number] [place] [address]- 2290 Mar, [facility] [id number] [address]- 1834 Mar, Hyper[address] 276.[address] [facility] [address], [place] [address]- 3505 Mar, Hyperkalemia 276.7 [facility] [address], [place] [address]- 6781 Mar, [facility] [address] [address]- 1526 Mar, [facility] [address] [address]- 6710 Mar, [facility] [address] [address]- 0413 Mar, [facility], [place] [address], [place] [address]- 3506 Mar, Anserine bursitis 726.61 [facility], [place] [address], [place] [address]- 6814 Mar, Asthma 493.90 and Hyperkalemia 276.7 [facility] [place] [address], [place] [address]- 7576 Mar, [facility] [place] [address], [place] [address]- 0733 February, [facility] [place] [address] [address]- 5446 February, [facility] [id number], [place] [address]- 3256 February, [facility] [place] [address] [address]- 4983 February, [facility] [id number] [address]- 8036 February, [facility], [place] [address] [place] [address]- 9653 February, [facility] [place] [facility] [address] [id number] [place] [address] February, [facility] [place] [facility] [address] [id number] [place] [address] February, [facility] [place] [facility] [address] [id number] [place] [address] February, [facility] [place] [facility] [address] [id number] [place] [address] Jan, [facility] [place] [facility] [address] [id number] [place] [address] Jan, [facility] [place] [facility] [address] [id number] [place] [address] Dec, [facility] [place] [facility] [address] [id number] [place] [address] Dec, [facility] [place] [facility] [address] [id number] [place] [address] Dec, [facility] [place] [facility] [address] [id number] [place] [address] Dec, [facility] [place] [facility] [address] [id number] [place] [address] Dec, [facility] [place] [facility] [address] [id number] [place] [address] Dec, [facility] [place] [facility] [address] [id number] [place] [address] Dec, [facility] [place] [facility] [address] [id number] [place] [address] Dec, [facility] [place] [facility] [address] [id number] [place] [address] Dec, [facility] [place] [facility] [address] [id number] [place] [address] Dec, [facility] [place] [facility] [address] [id number] [place] [address] Dec, [facility] [place] [facility] [address] [id number] [place] [address] Dec, [facility] [place] [facility] [address] [id number] [place] [address] Dec, [facility] [place] [facility] [address] [id number] [place] [address] Dec, [facility] [place] [facility] [address] [id number] [place] [address] Nov, [facility] [place] [facility] [address] [id number] [place] [address] Nov, [facility] [place] [facility] [address] [facility] [id number] [place] [address] Nov, [facility] [place] [facility] [address] [id number] [place] [address] Nov, [facility] [place] [facility] [address] [id number] [place] [address] Nov, [facility] [place] [facility] [address] [id number] [place] [address] Nov, [facility] [place] [facility] [address] [facility] [id number] [place] [address] Oct, [facility] [place] [facility] [address] [id number] [place] [address] Oct, [facility] [place] [facility] [address] [id number] [place] [address] Oct, [facility] [place] [facility] [address] [id number] [place] [address] Oct, [facility] [place] [facility] [address] [id number] [place] [address] Oct, [facility] [place] [facility] [address] [id number] [address] Oct, [facility] [place] [facility] [address] [id number] [place] [address] Sep, [facility] [place] [facility] [address] [id number] [place] [address] Sep, [facility] [place] [facility] [address] [facility] [id number] [place] [address] Sep, [facility] [place] [facility] [address] [id number] [place] [address] Sep, [facility] [place] [facility] [address] [id number] [place] [address] Sep, [facility] [place] [facility] [address] [id number] [place] [address] Sep, [facility] [place] [facility] [address] [facility] [id number] [place] [address] Aug, [facility] [place] [facility] [address] [id number] [place] [address] Aug, [facility] [place] [facility] [address] [facility] [id number] [place] [address] Aug, [facility] [place] [facility] [address] [facility] [facility] [id number] [place] [address] Aug, [facility] [place] [facility] [address] [id number], [place] [address] Aug, [facility] [place] [facility] [address] [id number], [place] [address] Aug, [facility] [place] [facility] [address] [id number], [place] [address] Jul, [facility] [place] [facility] [address] [facility] [id number] [place] [address] Jul, [facility] [place] [facility] [address] [facility] [id number], [place] [address] Jul, [facility] [place] [facility] [address] [id number] [place] [address] Jul, 2013 [facility] [place] [facility] [address] [id number] [place] [address] Jul, [facility] [place] [facility] [address] [id number] [place] [address] Jul, [facility] [place] [facility] [address] [id number] [place] [address] Jul, [facility] [place] [facility] [address] [id number] [place] [address] Jul, [facility] [place] [facility] [address] [id number] [place] [address] Jul, [facility] [place] [facility] [address] [id number] [place] [address] Jul, [facility] [place] [facility] [address] [id number] [place] [address] Jul, [facility] [place] [facility] [address] [id number] [place] [address] Jun, [facility] [place] [facility] [address] [id number] [place] [address] Jun, [facility] [place] [facility] [address] [id number] [place] [address] Jun, [facility] [place] [facility] [address] [id number] [place] [address] Jun, [facility] [place] [facility] [address] [id number] [place] [address] Apr, [facility] [place] [facility] [address] [id number] [place] [address] Apr, [facility] [place] [facility] [address] [id number] [place] [address] Apr, [facility] [place] [facility] [address] [id number] [place] [address] Apr, [facility] [place] [address] [id number], [place] [address] Mar, [facility] [place] [address] [id number], [place] [address] Mar, [facility] [place] [address] [id number], [place] [address] Mar, [facility] [place] [id number] [address] Mar, [facility] [place] [address] [id number] [address] Mar, [facility] [place] [id number] [address] Sep, [facility] [place] [id number], [place] [address] Sep, [facility] [place] [address] [id number], [place] [address] Aug, IMMUNIZATIONS No Known Immunizations SOCIAL HISTORY Never Assessed REASON FOR VISIT osteomyelitis PLAN OF CARE VITAL SIGNS MEDICATIONS Unknown [...]
--- OUTSIDE RECORDS SUMMARY | 2018-07-12 09:20 | XMS REPORT ---
Author Author OLYA WILLIS [facility] eClinicalWorks Address Unknown Phone Unavailable Care Team Providers Care Film Sound Engineer Name Role Phone OLYA WILLIS Unavailable [...] Restless legs syndrome [RLS] 333.94 Active Problem Hyperkalemia 276.7 Active Problem Gastroparesis 536.3 Active Problem Hypopotassemia 276.8 Active Medications Medication Code System Code Instructions Start Date End Date Status Dosage amlodipine [facility] [address]-85 10 mg by mouth Once a day April 07, 2014 1 tablet Results No Known Results Summary Purpose eClinicalWorks Submission
--- OUTSIDE RECORDS SUMMARY | 2018-07-12 09:20 | XMS REPORT ---
Author Author OLYA WILLIS [facility] eClinicalWorks Address Unknown Phone Unavailable Care Team Providers Care Camera Systems Engineer Name Role Phone OLYA WILLIS CP Unavailable [...] Problem Other chronic pain 338.29 Active Medications Medication Code System Code Instructions Start Date End Date Status Dosage oxycodone NDC 0 5 mg oral 4 hours January 14, 2015 take 1 tablet Results No Known Results Summary Purpose eClinicalWorks Submission
--- OUTSIDE RECORDS SUMMARY | 2018-07-12 09:21 | XMS REPORT ---
Author Author OLYA WILLIS [facility] eClinicalWorks Address Unknown Phone Unavailable Care Team Providers Care Regional Sales Leader Name Role Phone OLYA WILLIS CP Unavailable Allergies, Adverse Reactions, Alerts Substance Reaction Event Type Plavix caused bleeding Drug Allergy Neurontin Makes her disoriented Drug Allergy Lyrica Info Not Available Drug Allergy Problems Problem Type Condition Code Onset Dates Condition Status Problem Hypopotassemia 276.8 Active Problem Polyneuropathy in diabetes 357.2 Active Problem Diabetes mellitus without mention of complication, type II or unspecified type, not stated as uncontrolled 250.00 Active Problem Hypertension I10 Active Problem Asthma 493.90 Active Problem Diabetes mellitus E11.9 Active Problem Esophageal reflux 530.81 Active Problem Other chronic pain 338.29 Active Problem Restless legs syndrome [RLS] 333.94 Active Problem Essential hypertension, benign 401.1 Active Assessment Encounter for immunization Z23 Active Assessment Diabetes mellitus E11.9 Active Assessment Hyperkalemia E87.5 Active Problem Hyperkalemia 276.7 Active Assessment Hypertension I10 Active Problem Gastroparesis 536.3 Active Medications Medication Code System Code Instructions Start Date End Date Status Dosage Folic Acid [facility] [address]-75 1 mg Aug 23, 2014 1 tablet by Oral route 1 time per day Furosemide [facility] [address]-12 20 MG Once a day Oct 09, 2014 1 amlodipine [facility] [address]-67 10 mg by mouth Once a day April 07, 2014 1 tablet Zofran ODT [facility] [address]-06 4 MG Oct 23, 2014 take 1 tablets by Oral route every 8 hours PRN Nausea or Vomiting Ambien [facility] [address]-70 5 MG Orally Once a day January 14, 2015 1 tablet by Oral route 1 time per day PRN SPS [facility] [address]-07 15 GM/60ML Orally 2 times a day 1 tablespoon ProAir HFA [facility] [address]-50 108 (90 Base) MCG/ACT Inhalation every 4 hrs March 26, 2015 2 puffs as needed oxycodone NDC 0 5 mg oral 4 hours January 14, 2015 take 1 tablet Levemir FlexTouch NDC [address]-26 100 unit/mL (3 mL) Aug 03, 2014 10 Units by Subcutaneous route 1 time per day Procedures Procedure Coding System Code Date FLUZONE TRIV HIGH DOSE (65 & UP)-SANOFI PASTEUR CPT-4 05861 Jul 30, 2015 SINGLE IMMUNIZATION ADMIN CPT-4 23205 Jul 30, 2015 GLYCATED HEMOGLOBIN TEST CPT-4 15204 Jul 30, 2015 Office Visit, Est Pt., Level 3 CPT-4 11307 Jul 30, 2015 Vital Signs Date/Time: Jul 30, 2015 Temperature 98.0 F Weight 148 lbs Height 62 in BMI 27.07 Index Blood Pressure Diastolic 80 mmHg Blood Pressure Systolic 120 mmHg Cardiac Monitoring Heart Rate 80 bpm Results Name Result Date Reference Range Unit Abnormality Flag A1C (IN HOUSE) Immunizations Vaccine Administration Date FLUZONE TRIV HIGH DOSE (65 & UP)-SANOFI PASTEURJul 30, 2015 Summary Purpose eClinicalWorks Submission
--- OUTSIDE RECORDS SUMMARY | 2018-07-12 09:21 | XMS REPORT ---
Author Author OLYA WILLIS [facility] eClinicalWorks Address Unknown Phone Unavailable Care Team Providers Care Boat Detailer Name Role Phone OLYA WILLIS CP Unavailable [...] Start Date End Date Status Dosage amlodipine [facility] [address]-14 10 mg by mouth Once a day April 07, 2014 1 tablet Results No Known Results Summary Purpose eClinicalWorks Submission
--- OUTSIDE RECORDS SUMMARY | 2018-07-12 09:21 | XMS REPORT ---
Author Author OLYA WILLIS Organization [facility] Address [address] [place] [address] Care Team Providers Care Executive Vice President And Chief Operating Officer Name Role Phone OLYA WILLIS Unavailable PROBLEMS Type Condition ICD9-CM Code [id number] Code Onset Dates Condition Status SNOMED Code Problem Hypertension I10 Active 04073684 Problem Chronic kidney disease N18.9 Active 873622775 Problem Diabetes mellitus E11.9 Active 29507462 Problem Type 2 diabetes mellitus with diabetic autonomic (poly)neuropathy E11.43 Active 252363476 Problem Gastroparesis K31.84 Active 397669840 Problem Diabetic polyneuropathy associated with type 2 diabetes mellitus E11.42 Active 80886354 Problem Paresthesias R20.2 Active 55364110 Problem GERD (gastroesophageal reflux disease) K21.9 Active 610078279 Problem Venous insufficiency I87.2 Active 70872704 ALLERGIES No Information SOCIAL HISTORY Never Assessed PLAN OF CARE VITAL SIGNS MEDICATIONS No Known Medications RESULTS No Results PROCEDURES No Known procedures IMMUNIZATIONS No Known Immunizations MEDICAL (GENERAL) HISTORY Type Description Date Medical History osteoporosis Medical History hyperkalemia- resolved Surgical History right leg/ankle surgery x 11 Surgical History cholecystecomy Surgical History C section x 2 Surgical History malignant melanoma off of back Surgical History carpal tunnel x 3 Surgical History left rotator cuff repair Hospitalization History surgeries Hospitalization History B/p Hospitalization History [facility], was there for 4 day at oct 2016
--- OUTSIDE RECORDS SUMMARY | 2018-07-12 09:21 | XMS REPORT ---
Author Author OLYA WILLIS Organization [facility] Address [address] [place] [address] Care Team Providers Care Sprinkler Truck Driver Name Role Phone OLYA WILLIS Unavailable PROBLEMS Type Condition ICD9-CM Code [id number] Code Onset Dates Condition Status SNOMED Code Problem Chronic kidney disease N18.9 Active 485091214 Problem Diabetic polyneuropathy associated with type 2 diabetes mellitus E11.42 Active 18951385 Problem Paresthesias R20.2 Active 89528467 Problem Hypertension I10 Active 44830598 Problem Diabetes mellitus E11.9 Active 63338775 Problem Chronic osteomyelitis of right foot with draining sinus M86.471 Active 865082741428434 Problem Chronic skin ulcer with fat layer exposed L98.492 Active 28428394 Problem GERD (gastroesophageal reflux disease) K21.9 Active 250214770 Problem Venous insufficiency I87.2 Active 74866348 Problem Type 2 diabetes mellitus with diabetic autonomic (poly)neuropathy E11.43 Active 476225712 Problem Gastroparesis K31.84 Active 957549545 ALLERGIES No Information SOCIAL HISTORY Never Assessed PLAN OF CARE VITAL SIGNS MEDICATIONS Medication Instructions Dosage Frequency Start Date End Date Duration Status Oxycodone HCl 5 MG Orally 4 times a day, prn pain 1 tablet Jan, 28 days Active RESULTS No Results PROCEDURES [...]
--- OUTSIDE RECORDS SUMMARY | 2018-07-12 09:21 | XMS REPORT ---
Author Author OLYA WILLIS Organization [facility] Address [address] [place] [address] Care Team Providers Care Home Organizer Name Role Phone OLYA WILLIS Unavailable PROBLEMS Type Condition ICD9-CM Code KHH58-RC Code Onset Dates Condition Status SNOMED Code Problem Venous insufficiency I87.2 Active 34863852 Problem Gastroparesis K31.84 Active 160447206 Problem GERD (gastroesophageal reflux disease) K21.9 Active 567967045 Problem Pressure ulcer of unspecified heel, stage 4 L89.604 Active 141491339 Problem Non-pressure chronic ulcer of right heel and midfoot with unspecified severity L97.419 Active 988207918 Problem Chronic skin ulcer with fat layer exposed L98.492 Active 95579786 Problem Type 2 diabetes mellitus with diabetic autonomic (poly)neuropathy E11.43 Active 542718540 Problem Type 2 diabetes mellitus with foot ulcer E11.621 Active 51973870071789 Problem Chronic osteomyelitis of right foot with draining sinus M86.471 Active 096169071069365 Problem Diabetes mellitus E11.9 Active 39802015 Problem Chronic kidney disease N18.9 Active 776096187 Problem Paresthesias R20.2 Active 56059037 Problem Hypertension I10 Active 25870042 Problem Diabetic polyneuropathy associated with type 2 diabetes mellitus E11.42 Active 05671603 ALLERGIES No Information ENCOUNTERS Encounter Location Date Diagnosis [facility] [address] [facility] [id number] [address] Mar, [facility] [id number] [place] [address] 90481- 1541 Mar, Pressure ulcer of unspecified heel, stage 4 L89.604 and Type 2 diabetes mellitus with foot ulcer E11.621 [facility] [id number] [address] Mar, Encounter for medication monitoring Z51.81 [facility] [id number] [place] [address] 53071- 2107 Mar, Type 2 diabetes mellitus with foot ulcer E11.621 and Non- pressure chronic ulcer of right heel and midfoot with unspecified severity L97.419 [facility] [id number] [place] [address] 38471- 6220 February, [facility] [address] 51865- 6118 Jan, Right ankle pain M25.571 [facility] [id number] [place] [address] 82869- 4336 Dec, Right ankle pain M25.571 [facility] [id number] [place] [address] 58718- 5516 Dec, [facility] [address] 59194- 8809 Dec, [facility] [id number] [place] [address] 06124- 8001 Dec, Right ankle pain M25.571 [facility] [id number] [place] [address] 90498- 3715 Dec, Chronic skin ulcer with fat layer exposed L98.492 ; Type 2 diabetes mellitus with diabetic autonomic (poly)neuropathy E11.43 and Hypertension I10 [facility] [id number] [place] [address] 10864- 6002 Nov, [facility] [id number] [place] [address] 60899- 3607 Nov, [facility] [id number] [place] [address] 25661- 8087 Nov, [facility] [id number] [place] [address] 91820- 7548 Nov, Right ankle pain M25.571 and Chronic osteomyelitis of right foot with draining sinus M86.471 [facility] [id number] [place] [address] 18159- 3998 Oct, Right ankle pain M25.571 [facility] [id number] [place] [address] 88329- 1817 Oct, [facility] [id number] [place] [address] 55164- 8761 Sep, Diabetes mellitus E11.9 [facility] [id number] [place] [address] 53769- 7487 Sep, Diabetic polyneuropathy associated with type 2 diabetes mellitus E11.42 and Venous insufficiency I87.2 [facility] [id number] [place] [address] 09391- 0754 Sep, Right ankle pain M25.571 [facility] [id number] [place] [address] 60444- 6538 Aug, Right ankle pain M25.571 [facility] [id number] [place] [address] 65341- 8544 Aug, Chronic osteomyelitis of right foot with draining sinus M86.471 [facility] [id number] [place] [address] 45496- 8826 Aug, [facility] [id number] [place] [address] 98297- 9812 Aug, [facility] [id number] [place] [address] 25483- 3462 Aug, Chronic osteomyelitis of right foot with draining sinus M86.471 [facility] [id number] [place] [address] 15485- 6546 Jul, [facility] [id number] [place] [address] 63885- 6238 Jul, [facility] [id number] [place] [address] 93087- 4249 Jul, Chronic kidney disease N18.9 [place] [facility] [id number] [place] [address] 53964- 5626 Jul, Right ankle pain M25.571 [facility] [facility] [id number] [place] [address] 53573- 1964 Jul, Non-healing ulcer of right foot, unspecified ulcer stage L97.519 [place] [address] 53490- 0509 Jul, Chronic skin ulcer with fat layer exposed L98.492 [facility] [address] 33181- 4459 Jul, Deformity of right ankle joint M21.961 [place] [facility] [id number] [place] [address] 45456- 2091 Jun, [facility] [address] 70756- 7380 Jun, Diabetes mellitus E11.9 ; Skin ulcer of right foot with fat layer exposed L97.512 and Encounter for immunization Z23 [facility] [facility] [address] 51681- 2348 Jun, Right ankle pain M25.571 [facility] [id number] [place] [address] 17437- 9185 May, Right ankle pain M25.571 [facility] [facility] [id number] [place] [address] 21339- 3659 Apr, Right ankle pain M25.571 [facility] [id number] [place] [address] 96490- 1266 Mar, Right ankle pain M25.571 [facility] [id number] [place] [address] 90233- 4289 Mar, [facility] [facility] [id number] [place] [address] 76937- 6140 February, Diabetes mellitus E11.9 and Diabetic polyneuropathy associated with type 2 diabetes mellitus E11.42 [facility] [id number] [place] [address] 50929- 1743 February, Hyperkalemia E87.5 [facility] [id number] [place] [address] 94069- 8269 February, Right ankle pain M25.571 [facility] [id number] [place] [address] 95747- 3177 Jan, Right ankle pain M25.571 [facility] [id number] [place] [address] 55570- 2765 Dec, Right ankle pain M25.571 [facility] [id number] [place] [address] 54101- 7095 Dec, Right ankle pain M25.571 [facility] [id number] [place] [address] 46492- 4853 Nov, [facility] [id number] [place] [address] 79898- 7954 Nov, Diabetes mellitus E11.9 ; Hypertension I10 ; Gastroparesis K31.84 and Type 2 diabetes mellitus with diabetic autonomic (poly)neuropathy E11.43 [facility] [id number] [place] [address] 55706- 7306 Nov, Right ankle pain M25.571 [facility] [id number] [place] [address] 17787- 3425 Oct, Right ankle pain M25.571 [facility] [id number] [place] [address] 22229- 3299 Oct, [facility] [id number] [place] [address] 48852- 7253 Oct, [facility] [id number] [place] [address] 13336- 8919 Sep, [facility] [id number] [place] [address] 20061- 6608 Sep, Hypertension I10 [facility] [id number] [place] [address] 22248- 6236 Sep, Chronic kidney disease N18.9 ; Right ankle pain M25.571 and GERD (gastroesophageal reflux disease) K21.9 [facility] [address] 29383- 7614 Jul, [facility] [address] 24901- 8835 Jul, Encounter for immunization Z23 ; Venous insufficiency I87.2 and Diabetic polyneuropathy associated with type 2 diabetes mellitus E11.42 [facility] [address] 25177- 2721 Jul, [facility] [address] 67680- 4983 Jul, Diabetes mellitus E11.9 [facility] [address] 28312- 6002 May, [facility] [address] 27689- 3460 Apr, [facility] [address] 58118- 5111 Mar, Right ankle pain M25.571 [facility] [address] 95683- 8825 Mar, [facility] [id number] [place] [address] 38960- 3935 February, Paresthesias R20.2 [facility] [address] 83153- 8510 February, [facility] [address] 43701- 6995 February, 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 [facility] [address] 81702- 5174 February, Diabetes mellitus E11.9 [facility] [id number] [place] [address] 21290- 3551 February, [facility] [id number] [place] [address] 20388- 5549 February, Polyneuropathy in diabetes 357.2 and Paresthesias R20.2 [facility] [address] 45512- 8460 February, [facility] [id number] [place] [address] 32520- 0243 February, [facility] [id number] [place] [address] 12472- 3481 February, [facility] [id number] [place] [address] 40289- 9215 February, Diabetes mellitus E11.9 [facility] [id number] [place] [address] 67766- 4857 February, [facility] [id number] [place] [address] 91625- 4609 February, Hyperkalemia E87.5 [facility] [id number] [place] [address] 49170- 8251 Jan, Hypertension I10 [facility] [id number] [place] [address] 12192- 3500 Jan, Insomnia G47.00 [facility] [id number] [place] [address] 94335- 4639 Jan, [facility] [id number] [place] [address] 63942- 4889 Jan, [facility] [id number] [place] [address] 23078- 4164 Jan, [facility] [id number] [place] [address] 91279- 4977 Dec, Right ankle pain M25.571 [facility] [id number] [place] [address] 74583- 0436 Dec, GERD (gastroesophageal reflux disease) K21.9 [facility] [id number] [place] [address] 11190- 9440 Dec, Insomnia G47.00 [facility] [id number] [place] [address] 41204- 2962 18 Dec, 2015 Hypertension I10 and Hyperkalemia 276.7 [facility] [id number] [place] [address] 18724- 2383 10 Dec, 2015 Chronic kidney disease N18.9 [place] [id number] [place] [address] 40879- 0039 Dec, [place] [id number] [place] [address] 95109- 3277 Dec, Hyperkalemia E87.5 [facility] [id number] [place] [address] 28018- 3400 Dec, Chronic kidney disease N18.9 and Right ankle pain M25.571 [place] [id number] [place] [address] 41657- 4354 11 Nov, 2015 GERD (gastroesophageal reflux disease) K21.9 [facility] [id number] [place] [address] 79251- 3353 Nov, Right ankle pain M25.571 [facility] [id number] [place] [address] 12140- 3202 Nov, Diabetes mellitus E11.9 [facility] [id number] [place] [address] 58516- 5786 Oct, [facility] [id number] [place] [address] 16179- 7052 Oct, [place] [id number] [place] [address] 89756- 1868 Oct, [facility] [id number] [place] [address]- 1970 Oct, Hyperkalemia E87.5 [facility] [address], [place] [address]- 8188 Oct, [facility] [id number] [place] [address], [place] [address]- 8500 Oct, Hyperkalemia E87.5 [facility] [id number] [place] [address], [place] [address]- 9450 Sep, [facility] [id number] [place] [address], [place] [address]- 6888 Sep, [facility] [id number] [place] [address] 92875- 6447 Sep, [facility] [id number] [place] [address] 36526- 8019 Sep, [facility] [id number] [place] [address] 30714- 4622 Sep, Right ankle pain M25.571 [facility] [id number] [place] [address] 05384- 1072 Aug, Chronic kidney disease N18.9 [facility] [id number] [place] [address] 09671- 2075 Aug, [facility] [id number] [place] [address] 29646- 1022 Aug, Hyperkalemia E87.5 [facility] [id number] [place] [address] 01351- 5481 Aug, [facility] [address], [place] [address]- 6914 Jul, [facility] [address], [place] [address]- 6615 15 Jul, 2015 [facility] [id number] [address]- 1169 Jul, [facility] [id number] [place] [address] 00113- 6482 Jul, Diabetes mellitus E11.9 ; Encounter for immunization Z23 ; Hypertension I10 and Hyperkalemia E87.5 [facility] [id number] [place] [address] 40752- 5653 Jul, [facility] [id number] [place] [address] 60818- 1689 Jul, Hyperkalemia E87.5 [facility] [id number] [place] [address] 98619- 0595 Jul, Hyperkalemia E87.5 [facility] [id number] [place] [address] 69673- 1671 Jun, [facility] [id number] [place] [address] 03948- 0502 Jun, [facility] [id number] [place] [address] 38051- 6486 Jun, [facility] [id number] [place] [address] 34635- 6441 Jun, [facility] [address], [place] [address]- 3255 May, [facility] [id number] [place] [address] 83968- 3319 May, [facility] [id number], [place] [address]- 2786 May, [facility] [id number] [address]- 5509 May, Hyperkalemia 276.7 [facility] [address], [place] [address]- 5904 May, [facility] [id number] [place] [address]- 0696 Apr, Hyperkalemia 276.7 [facility] [place] [facility] [address] [id number] [place] [address] 2546 Apr, 2014 [facility] [place] [facility] [address] [id number] [place] [address] 2546 Apr, 2014 [facility] [place] [facility] [address] [facility] [id number] [place] [address] 2546 Apr, 2014 [facility] [place] [facility] [address] [id number] [place] [address] 2549 Apr, 2014 [facility] [place] [facility] [address] [facility] [id number] [place] [address] 2548 Apr, Hyperkalemia 276.7 [facility] [place] [facility] [address] [facility] [id number] [place] [address] 2546 Apr, 2014 [facility] [place] [facility] [address] [facility] [id number] [place] [address] 2541 Apr, [facility] [place] [facility] [address] [facility] [id number] [place] [address] 2546 Mar, [facility] [place] [facility] [address] [facility] [id number] [place] [address] 2544 Mar, Hyperkalemia 276.7 [facility] [place] [facility] [address] [facility] [id number] [place] [address] 2546 Mar, Hyperkalemia 276.7 [facility] [place] [facility] [address] [facility] [id number] [place] [address] 2546 Mar, [facility] [place] [facility] [address] [id number] [place] [address] 2548 Mar, [facility] [place] [facility] [address] [facility] [id number] [place] [address]- 2546 Mar, [facility] [place] [facility] [address] [facility] [id number] [place] [address]- 2540 Mar, [facility] [place] [facility] [address] [facility] [id number] [place] [address]- 4684 Mar, Anserine bursitis 726.61 [facility] [address] [facility] [id number] [place] [address]- 4518 Mar, Asthma 493.90 and Hyperkalemia 276.7 [facility] [address] [place] [address]- 1736 Mar, [facility] [address] [facility] [id number] [place] [address]- 1112 February, [facility] [address] [facility] [id number] [place] [address]- 8520 February, [facility] [address] [facility] [id number] [place] [address]- 8962 February, [facility] [id number] [place] [address]- 4442 February, [facility] [id number] [place] [address]- 1950 February, [facility] [id number] 4713 February, [facility] [id number] [place] [address]- 1406 February, [facility] [id number] [place] [address]- 2733 February, [facility] [address] [facility] [id number] [place] [address]- 5016 February, [facility] [id number] [place] [address]- 9504 Jan, [facility] [address] [facility] [id number] [place] [address]- 8958 Jan, [facility] [id number] [place] [address]- 8270 Dec, [facility] [place] [facility] [address] [id number] [place] [address]- 6414 Dec, [facility] [place] [facility] [address] [id number] [place] [address]- 9389 Dec, [facility] [place] [facility] [address] [id number] [place] [address] Dec, [facility] [place] [facility] [address] [id number] [place] [address] Dec, [facility] [place] [facility] [address] [id number] [place] [address] Dec, [facility] [place] [facility] [address] [id number] [place] [address] Dec, [facility] [place] [facility] [address] [id number] [place] [address] Dec, [facility] [place] [facility] [address] [id number] [place] [address] Dec, [facility] [place] [facility] [address] [id number] [place] [address] Dec, [facility] [place] [facility] [address] [id number] [place] [address] Dec, [facility] [place] [facility] [address] [id number] [place] [address] Dec, [facility] [place] [facility] [address] [id number] [place] [address]- [address] Dec, [facility] [place] [facility] [address] [id number] [place] [address] Dec, [facility] [place] [facility] [address] [id number] [place] [address] Nov, [facility] [place] [facility] [address] [id number] [place] [address] Nov, [facility] [place] [facility] [address] [id number] [place] [address] Nov, [facility] [address] [id number] [place] [address] Nov, [facility] [place] [facility] [address] [id number] [place] [address] Nov, [facility] [place] [facility] [address] [id number] [place] [address] Nov, [facility] [place] [facility] [address] [id number] [place] [address] Oct, [facility] [place] [facility] [address] [id number] [place] [address] Oct, [facility] [place] [facility] [address] [id number] [place] [address] Oct, [facility] [address] [facility] [id number] [place] [address] Oct, [facility] [place] [facility] [address] [id number] [place] [address] Oct, [facility] [place] [facility] [address] [id number] [place] [address] Oct, [facility] [place] [facility] [address] [facility] [id number] [place] [address] Sep, [facility] [place] [facility] [address] [id number] [place] [address] Sep, [facility] [place] [facility] [address] [id number] [address] Sep, [facility] [place] [facility] [address] [id number] [place] [address] Sep, [facility] [place] [facility] [address] [id number] [place] [address] Sep, [facility] [place] [facility] [address] [facility] [id number] [place] [address] [address] Sep, [facility] [place] [facility] [address] [id number] [place] [address] Aug, [facility] [place] [facility] [address] [id number] [place] [address] [address] Aug, [facility] [place] [facility] [address] [id number] [place] [address] Aug, [facility] [place] [facility] [address] [id number] [place] [address] Aug, [facility] [facility] [address] [id number] [place] [address] Aug, [facility] [place] [facility] [address] [id number] [place] [address] Aug, [facility] [place] [facility] [address] [id number] [place] [address] Jul, [facility] [place] [facility] [address] [id number] [place] [address] Jul, [facility] [place] [facility] [address] [id number] [place] [address] Jul, [facility] [place] [facility] [address] [id number] [place] [address] Jul, [facility] [place] [facility] [address] [id number] [place] [address] Jul, [facility] [place] [facility] [address] [id number] [place] [address] Jul, [facility] [place] [facility] [address] [id number] [place] [address] Jul, [facility] [place] [facility] [address] [id number] [place] [address] Jul, [facility] [place] [facility] [address] [id number] [place] [address] Jul, [facility] [place] [facility] [address] [id number] [place] [address] Jul, [facility] [place] [facility] [address] [id number] [place] [address] Jul, [facility] [place] [facility] [address] [id number] [place] [address] Jun, [facility] [place] [facility] [address] [id number] [place] [address] Jun, [facility] [place] [facility] [address] [id number] [place] [address] Jun, [facility] [place] [facility] [address] [id number] [place] [address] Jun, [facility] [place] [facility] [address] [id number] [place] [address] Apr, [facility] [place] [facility] [address] [id number] [place] [address] Apr, [facility] [place] [facility] [address] [id number] [place] [address] Apr, [facility] [place] [facility] [address] [id number] [place] [address] Apr, [facility] [place] [facility] [address] [id number] [place] [address] Mar, [facility] [address] [id number] [address] Mar, [facility] [place] [facility] [address] [id number], [place] [address] Mar, [facility] [place] [facility] [address] [id number] [place] [address] Mar, [facility] [place] [facility] [address] [id number] [place] [address] Mar, [facility] [place] [facility] [address] [id number] [place] [address] Sep, [facility] [place] [facility] [address] [id number] [place] [address] Sep, [facility] [address] [facility] [id number] [place] [address] Aug, IMMUNIZATIONS No Known Immunizations SOCIAL HISTORY Never Assessed REASON FOR VISIT Oxycodone- 11/02 PLAN OF CARE VITAL SIGNS MEDICATIONS Medication [...]
--- OUTSIDE RECORDS SUMMARY | 2018-07-12 09:21 | XMS REPORT ---
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 Active 569233713 Problem Chronic skin ulcer with fat layer exposed L98.492 Active 74941366 Problem Type 2 diabetes mellitus with diabetic autonomic (poly)neuropathy E11.43 Active 329641087 Problem Type 2 diabetes mellitus with foot ulcer E11.621 Active 91984370079051 Problem Chronic osteomyelitis of right foot with draining sinus M86.471 Active 549438782697940 Problem Diabetes mellitus E11.9 Active 21528962 Problem Chronic kidney disease N18.9 Active 613654836 Problem Paresthesias R20.2 Active 36301510 Problem Hypertension I10 Active 32279460 Problem Diabetic polyneuropathy associated with type 2 diabetes mellitus E11.42 Active 68995989 ALLERGIES No Information ENCOUNTERS Encounter Location Date Diagnosis [facility] [address] [facility] [id number] [address] Mar, [facility] [id number] [place] [address] 32665- 4632 Mar, Pressure ulcer of unspecified heel, stage 4 L89.604 and Type 2 diabetes mellitus with foot ulcer E11.621 [facility] [address] [id number] [address]47 Mar, Encounter for medication monitoring Z51.81 [facility] [id number] [place] [address] 66727- 0325 Mar, Type 2 diabetes mellitus with foot ulcer E11.621 and Non- pressure chronic ulcer of right heel and midfoot with unspecified severity L97.419 [facility] [id number] [place] [address] 18763- 8990 February, [facility] [address] 55588- 6666 Jan, Right ankle pain M25.571 [facility] [id number] [place] [address] 64434- 2065 Dec, Right ankle pain M25.571 [facility] [id number] [place] [address] 71414- 5921 Dec, [facility] [facility] [address] 98914- 3895 Dec, [facility] [id number] [place] [address] 65294- 4836 Dec, Right ankle pain M25.571 [facility] [id number] [place] [address] 27865- 7862 Dec, Chronic skin ulcer with fat layer exposed L98.492 ; Type 2 diabetes mellitus with diabetic autonomic (poly)neuropathy E11.43 and Hypertension I10 [facility] [id number] [place] [address] 48117- 0117 Nov, [facility] [id number] [place] [address] 10763- 2911 Nov, [facility] [id number] [place] [address] 10704- 1082 Nov, [facility] [id number] [place] [address] 36655- 5342 Nov, Right ankle pain M25.571 and Chronic osteomyelitis of right foot with draining sinus M86.471 [facility] [address] [place] [address] 93751- 8071 Oct, Right ankle pain M25.571 [facility] [id number] [place] [address] 07961- 2555 Oct, [facility] [id number] [place] [address] 77769- 6748 Sep, Diabetes mellitus E11.9 [facility] [id number] [place] [address] 20414- 3503 Sep, Diabetic polyneuropathy associated with type 2 diabetes mellitus E11.42 and Venous insufficiency I87.2 [facility] [id number] [place] [address] 56347- 1969 Sep, Right ankle pain M25.571 [facility] [id number] [place] [address] 99822- 2428 Aug, Right ankle pain M25.571 [facility] [id number] [place] [address] 39384- 7137 Aug, Chronic osteomyelitis of right foot with draining sinus M86.471 [facility] [id number] [place] [address] 99128- 6576 Aug, [facility] [id number] [place] [address] 63220- 9793 Aug, [facility] [id number] [place] [address] 39202- 1548 Aug, Chronic osteomyelitis of right foot with draining sinus M86.471 [facility] [address] [place] [address] 44759- 0716 Jul, [facility] [id number] [place] [address] 16614- 9218 Jul, [facility] [id number] [place] [address] 23757- 8076 Jul, Chronic kidney disease N18.9 [facility] [facility] [id number] [place] [address] 06271- 2460 Jul, Right ankle pain M25.571 [facility] [id number] [place] [address] 58121- 3612 Jul, Non-healing ulcer of right foot, unspecified ulcer stage L97.519 [facility] [facility] [address] 69309- 3455 Jul, Chronic skin ulcer with fat layer exposed L98.492 [facility] [address] 18025- 6752 Jul, Deformity of right ankle joint M21.961 [facility] [id number] [place] [address] 50521- 2141 Jun, [facility] [facility] [address] 55240- 3558 Jun, Diabetes mellitus E11.9 ; Skin ulcer of right foot with fat layer exposed L97.512 and Encounter for immunization Z23 [facility] [address] 15377- 9677 Jun, Right ankle pain M25.571 [facility] [id number] [place] [address] 44329- 6290 May, Right ankle pain M25.571 [facility] [id number] [place] [address] 66994- 8945 Apr, Right ankle pain M25.571 [facility] [id number] [place] [address] 41717- 3530 Mar, Right ankle pain M25.571 [facility] [id number] [place] [address] 90812- 2199 Mar, [facility] [id number] [place] [address] 85519- 1915 February, Diabetes mellitus E11.9 and Diabetic polyneuropathy associated with type 2 diabetes mellitus E11.42 [facility] [id number] [place] [address] 85994- 4644 February, Hyperkalemia E87.5 [facility] [id number] [place] [address] 04058- 9678 February, Right ankle pain M25.571 [facility] [id number] [place] [address] 50824- 5046 Jan, Right ankle pain M25.571 [facility] [id number] [place] [address] 68967- 9387 Dec, Right ankle pain M25.571 [facility] [id number] [place] [address] 65973- 4138 Dec, Right ankle pain M25.571 [facility] [id number] [place] [address] 27162- 2075 Nov, [facility] [id number] [place] [address] 36445- 8638 Nov, Diabetes mellitus E11.9 ; Hypertension I10 ; Gastroparesis K31.84 and Type 2 diabetes mellitus with diabetic autonomic (poly)neuropathy E11.43 [facility] [id number] [place] [address] 40586- 5761 Nov, Right ankle pain M25.571 [facility] [id number] [place] [address] 84930- 3264 Oct, Right ankle pain M25.571 [facility] [id number] [place] [address] 72476- 3072 Oct, [facility] [id number] [place] [address] 30374- 8669 Oct, [facility] [id number] [place] [address] 96403- 0551 Sep, [facility] [id number] [place] [address] 10334- 7485 Sep, Hypertension I10 [facility] [id number] [place] [address] 41840- 7801 Sep, Chronic kidney disease N18.9 ; Right ankle pain M25.571 and GERD (gastroesophageal reflux disease) K21.9 [facility] [address] 74649- 1513 Jul, [facility] [address] 49183- 9266 Jul, Encounter for immunization Z23 ; Venous insufficiency I87.2 and Diabetic polyneuropathy associated with type 2 diabetes mellitus E11.42 [facility] [address] 03038- 9359 Jul, [facility] [address] 65588- 7949 Jul, Diabetes mellitus E11.9 [facility] [address] 76676- 8620 May, [facility] [address] 90920- 2735 Apr, [facility] [address] 57916- 4381 Mar, Right ankle pain M25.571 [facility] [address] 00468- 9297 Mar, [facility] [id number] [place] [address] 74046- 5514 February, Paresthesias R20.2 [facility] [address] 29815- 1206 February, [facility] [address] 39954- 8046 February, 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 [facility] [address] 90090- 9000 February, Diabetes mellitus E11.9 [facility] [id number] [place] [address] 94126- 4641 February, [facility] [id number] [place] [address] 77219- 0613 February, Polyneuropathy in diabetes 357.2 and Paresthesias R20.2 [facility] [address] 86818- 0513 February, [facility] [id number] [place] [address] 91050- 6848 February, [facility] [id number] [place] [address] 67774- 6946 February, [facility] [id number] [place] [address] 54143- 4064 February, Diabetes mellitus E11.9 [facility] [id number] [place] [address] 70157- 8397 February, [facility] [id number] [place] [address] 97994- 1640 February, Hyperkalemia E87.5 [facility] [id number] [place] [address] 77045- 7514 Jan, Hypertension I10 [facility] [id number] [place] [address] 77425- 9733 Jan, Insomnia G47.00 [facility] [id number] [place] [address] 39294- 5030 Jan, [facility] [id number] [place] [address] 08406- 5105 Jan, [facility] [id number] [place] [address] 23245- 0081 Jan, [facility] [id number] [place] [address] 94739- 6338 Dec, Right ankle pain M25.571 [facility] [id number] [place] [address] 00031- 3549 Dec, GERD (gastroesophageal reflux disease) K21.9 [facility] [id number] [place] [address] 78529- 7893 Dec, Insomnia G47.00 [facility] [id number] [place] [address] 22582- 9108 18 Dec, 2015 Hypertension I10 and Hyperkalemia 276.7 [facility] [id number] [place] [address] 15943- 1827 10 Dec, 2015 Chronic kidney disease N18.9 [place] [id number] [place] [address] 73459- 4257 Dec, [place] [id number] [place] [address] 52957- 6338 Dec, Hyperkalemia E87.5 [facility] [id number] [place] [address] 65779- 7256 Dec, Chronic kidney disease N18.9 and Right ankle pain M25.571 [place] [id number] [place] [address] 04385- 8336 11 Nov, 2015 GERD (gastroesophageal reflux disease) K21.9 [facility] [id number] [place] [address] 80572- 1628 Nov, Right ankle pain M25.571 [facility] [id number] [place] [address] 46092- 4098 Nov, Diabetes mellitus E11.9 [facility] [id number] [place] [address] 02430- 1296 Oct, [facility] [id number] [place] [address] 78894- 8192 Oct, [place] [id number] [place] [address] 95541- 4798 Oct, [facility] [address] [place] [address]- 8629 Oct, Hyperkalemia E87.5 [facility] [address] [address]- 7363 Oct, [facility] [address] [place] [address], [place] [address]- 1739 Oct, Hyperkalemia E87.5 [facility] [address] [place] [address], [place] [address]- 7840 Sep, [facility] [id number] [place] [address], [place] [address]- 9331 Sep, [facility] [id number] [place] [address] 31518- 0528 Sep, [facility] [id number] [place] [address] 53518- 7927 Sep, [facility] [address] [place] [address] 13224- 5293 Sep, Right ankle pain M25.571 [facility] [id number] [place] [address] 64891- 7021 Aug, Chronic kidney disease N18.9 [facility] [address] [place] [address] 72991- 8020 Aug, [facility] [id number] [place] [address] 15562- 8618 Aug, Hyperkalemia E87.5 [facility] [address] [place] [address] 36919- 3880 Aug, [facility] [address] [address]- 6561 Jul, [facility] [address], [place] [address]- 6171 15 Jul, 2015 [facility] [id number] [address]- 2240 Jul, [facility] [id number] [place] [address] 41044- 6446 Jul, Diabetes mellitus E11.9 ; Encounter for immunization Z23 ; Hypertension I10 and Hyperkalemia E87.5 [facility] [id number] [place] [address] 39329- 1239 Jul, [facility] [id number] [place] [address] 43020- 5847 Jul, Hyperkalemia E87.5 [facility] [id number] [place] [address] 36555- 3877 Jul, Hyperkalemia E87.5 [facility] [address] [place] [address] 02808- 8920 Jun, [facility] [id number] [place] [address] 97321- 5745 Jun, [facility] [address] [place] [address] 12516- 4231 Jun, [facility] [address] [place] [address] 69067- 5819 Jun, [facility] [address] [address]- 2947 May, [facility] [address] [place] [address] 71372- 2479 May, [facility] [id number] [address]- 0969 May, [facility] [id number] [address]- 0817 May, Hyperkalemia 276.7 [facility] [address] [address]- 2252 May, [facility] [id number] [place] [address]- 3426 Apr, Hyperkalemia 276.7 [facility] [place] [facility] [address] [id number] [place] [address] 2546 Apr, 2014 [facility] [place] [facility] [address] [id number] [place] [address] 2546 Apr, 2014 [facility] [place] [facility] [address] [facility] [id number] [place] [address] 2546 Apr, 2014 [facility] [place] [facility] [address] [id number] [place] [address] 2547 Apr, 2014 [facility] [place] [facility] [address] [facility] [id number] [place] [address] 2542 Apr, Hyperkalemia 276.7 [facility] [place] [facility] [address] [facility] [id number] [place] [address] 2546 Apr, 2014 [facility] [place] [facility] [address] [facility] [id number] [place] [address] 2542 Apr, [facility] [place] [facility] [address] [facility] [id number] [place] [address] 2546 Mar, [facility] [place] [facility] [address] [facility] [id number] [place] [address] 2543 Mar, Hyperkalemia 276.7 [facility] [place] [facility] [address] [facility] [id number] [place] [address] 2546 Mar, Hyperkalemia 276.7 [facility] [place] [facility] [address] [facility] [id number] [place] [address] 2546 Mar, [facility] [place] [facility] [address] [id number] [place] [address] 2542 Mar, [facility] [place] [facility] [address] [facility] [id number] [place] [address]- 2546 Mar, [facility] [place] [facility] [address] [facility] [id number] [place] [address]- 2540 Mar, [facility] [place] [facility] [address] [facility] [id number] [place] [address]- 9103 Mar, Anserine bursitis 726.61 [facility] [address] [facility] [id number] [place] [address]- 2710 Mar, Asthma 493.90 and Hyperkalemia 276.7 [facility] [address] [place] [address]- 8176 Mar, [facility] [address] [facility] [id number] [place] [address]- 5448 February, [facility] [address] [facility] [id number] [place] [address]- 5997 February, [facility] [address] [facility] [id number] [place] [address]- 7280 February, [facility] [address] [place] [address]- 2530 February, [facility] [id number] [place] [address]- 8254 February, [facility] [address] 1111 February, [facility] [id number] [place] [address]- 2795 February, [facility] [id number] [place] [address]- 0749 February, [facility] [address] [facility] [id number] [place] [address]- 6546 February, [facility] [id number] [place] [address]- 1135 Jan, [facility] [address] [facility] [id number] [place] [address]- 9195 Jan, [facility] [id number] [place] [address]- 9873 Dec, [facility] [place] [facility] [address] [id number] [place] [address]- 8230 Dec, [facility] [place] [facility] [address] [id number] [place] [address]- 6938 Dec, [facility] [place] [facility] [address] [id number] [place] [address]- 7065 Dec, [facility] [place] [facility] [address] [id number] [place] [address]- 1147 Dec, [facility] [place] [facility] [address] [id number] [place] [address]- 8173 Dec, [facility] [place] [facility] [address] [id number] [place] [address]- 4523 Dec, [facility] [place] [facility] [address] [id number] [place] [address]- 0481 Dec, [facility] [place] [facility] [address] [id number] [place] [address] Dec, [facility] [place] [facility] [address] [id number] [place] [address] Dec, [facility] [place] [facility] [address] [id number] [place] [address] Dec, [facility] [place] [facility] [address] [id number] [place] [address] Dec, [facility] [place] [facility] [address] [id number] [place] [address] Dec, [facility] [place] [facility] [address] [id number] [place] [address] Dec, [facility] [place] [facility] [address] [id number] [place] [address] Nov, [facility] [place] [facility] [address] [id number] [place] [address] Nov, [facility] [place] [facility] [address] [id number] [place] [address] Nov, [facility] [address] [id number] [place] [address] Nov, [facility] [place] [facility] [address] [id number] [place] [address] Nov, [facility] [place] [facility] [address] [id number] [place] [address] Nov, [facility] [place] [facility] [address] [id number] [place] [address] Oct, [facility] [place] [facility] [address] [id number] [place] [address] Oct, [facility] [place] [facility] [address] [id number] [place] [address] Oct, [facility] [address] [facility] [id number] [place] [address] Oct, [facility] [place] [facility] [address] [id number] [place] [address] Oct, [facility] [place] [facility] [address] [id number] [place] [address] Oct, [facility] [place] [facility] [address] [facility] [id number] [place] [address] Sep, [facility] [place] [facility] [address] [id number] [place] [address] Sep, [facility] [place] [facility] [address] [id number], [place] [address] Sep, [facility] [place] [facility] [address] [id number] [place] [address] Sep, [facility] [place] [facility] [address] [id number] [place] [address] Sep, [facility] [place] [facility] [address] [facility] [id number] [place] [address] Sep, [facility] [place] [facility] [address] [id number] [place] [address] Aug, [facility] [place] [facility] [address] [id number] [place] [address] Aug, [facility] [place] [facility] [address] [id number] [place] [address] Aug, [facility] [place] [facility] [address] [id number] [place] [address] Aug, [facility] [place] [facility] [address] [id number] [place] [address] Aug, [facility] [place] [facility] [address] [id number] [place] [address] Aug, [facility] [place] [facility] [address] [id number] [place] [address] Jul, [facility] [place] [facility] [address] [id number] [place] [address] Jul, [facility] [place] [facility] [address] [id number] [place] [address] Jul, [facility] [place] [facility] [address] [id number] [place] [address] Jul, [facility] [place] [facility] [address] [id number] [place] [address] Jul, [facility] [place] [facility] [address] [id number] [place] [address] Jul, [facility] [place] [facility] [address] [id number] [place] [address] Jul, [facility] [place] [facility] [address] [id number] [place] [address] Jul, [facility] [place] [facility] [address] [id number] [place] [address] Jul, [facility] [place] [facility] [address] [id number] [place] [address] Jul, [facility] [place] [facility] [address] [id number] [place] [address] Jul, [facility] [place] [facility] [address] [id number] [place] [address] Jun, [facility] [place] [facility] [address] [id number] [place] [address] Jun, [facility] [place] [facility] [address] [id number] [place] [address] Jun, [facility] [place] [facility] [address] [id number] [place] [address] Jun, [facility] [place] [facility] [address] [id number] [place] [address] Apr, [facility] [place] [facility] [address] [id number] [place] [address] Apr, [facility] [place] [facility] [address] [id number] [place] [address] Apr, [facility] [place] [facility] [address] [id number] [place] [address] Apr, [facility] [place] [facility] [address] [id number] [place] [address] Mar, [facility] [place] [facility] [address] [id number] [address] Mar, [facility] [place] [facility] [address] [id number], [place] [address] Mar, [facility] [place] [facility] [address] [id number] [place] [address] Mar, [facility] [place] [facility] [address] [id number] [place] [address] Mar, [facility] [place] [facility] [address] [id number] [place] [address] Sep, [facility] [place] [facility] [address] [id number] [place] [id number] Sep, [facility] [address] [facility] [id number] [place] [address] Aug, IMMUNIZATIONS No Known Immunizations SOCIAL HISTORY Never Assessed REASON FOR VISIT needs script faxed PLAN OF CARE VITAL SIGNS MEDICATIONS Medication Instructions Dosage Frequency Start Date End Date Duration Status Diabetic Shoes wear with ambulation Sep, Active Diabetic Shoes wear with ambulation Sep, Active RESULTS No Results PROCEDURES No Known [...]
--- OUTSIDE RECORDS SUMMARY | 2018-07-12 09:22 | XMS REPORT ---
Author Author OLYA WILLIS [facility] eClinicalWorks Address Unknown Phone Unavailable Care Team Providers Care Roughener Name Role Phone OLYA WILLIS Unavailable Allergies [...] Restless legs syndrome [RLS] 333.94 Active Assessment Hypertension I10 Active Problem Hyperkalemia 276.7 Active Problem Gastroparesis 536.3 Active Problem Hypopotassemia 276.8 Active Medications Medication Code System Code Instructions Start Date End Date Status Dosage Atenolol [facility] [place] [address]-92 50 mg Orally Once a day February 21, 2016 1 tablet Results No Known Results Summary Purpose eClinicalWorks Submission
--- OUTSIDE RECORDS SUMMARY | 2018-07-12 09:22 | XMS REPORT ---
Author Author OLYA WILLIS Organization [facility] Address [address] [place] [address] Care Team Providers Care Natural Resource Specialist Name Role Phone OLYA WILLIS Unavailable PROBLEMS Type Condition ICD9-CM Code XVC94-BD Code Onset Dates Condition Status SNOMED Code Problem Chronic kidney disease N18.9 Active 243843646 Problem Diabetic polyneuropathy associated with type 2 diabetes mellitus E11.42 Active 23795430 Problem Paresthesias R20.2 Active 17446744 Problem Hypertension I10 Active 27168830 Problem Diabetes mellitus E11.9 Active 54575738 Problem Chronic osteomyelitis of right foot with draining sinus M86.471 Active [id number] Problem Chronic skin ulcer with fat layer exposed L98.492 Active 32623654 Problem GERD (gastroesophageal reflux disease) K21.9 Active 076905426 Problem Venous insufficiency I87.2 Active 55147999 Problem Type 2 diabetes mellitus with diabetic autonomic (poly)neuropathy E11.43 Active 046520539 Problem Gastroparesis K31.84 Active 242463395 ALLERGIES No Information ENCOUNTERS Encounter Location Date Diagnosis [facility] [address], [place] [address] Jan, [facility] [id number] [place] [address] 74094- 7354 Dec, Right ankle pain M25.571 [facility] [address], [place] [address] 4086 Dec, [facility] [id number] [place] [address] 30342- 9768 Dec, [facility] [address], [place] [address] 3399 Dec, Right ankle pain M25.571 [facility] [address] [place] [address] 9109 Dec, Chronic skin ulcer with fat layer exposed L98.492 ; Type 2 diabetes mellitus with diabetic autonomic (poly)neuropathy E11.43 and Hypertension I10 [facility] [id number] [place] [address] 49216- 5829 Nov, [facility] [id number] [place] [address] 36374- 4516 Nov, [facility] [id number] [place] [address] 23145- 4997 Nov, [facility] [id number] [place] [address] 16820- 0093 Nov, Right ankle pain M25.571 and Chronic osteomyelitis of right foot with draining sinus M86.471 [facility] [id number] [place] [address] 96238- 0030 Oct, Right ankle pain M25.571 [facility] [id number] [place] [address] 83958- 2920 Oct, [facility] [id number] [place] [address] 85611- 2812 Sep, Diabetes mellitus E11.9 [facility] [id number] [place] [address] 31685- 0835 Sep, Diabetic polyneuropathy associated with type 2 diabetes mellitus E11.42 and Venous insufficiency I87.2 [facility] [id number] [place] [address] 28894- 3151 Sep, Right ankle pain M25.571 [facility] [id number] [place] [address] 94293- 5950 Aug, Right ankle pain M25.571 [facility] [address] [place] [address] 04328- 4672 Aug, Chronic osteomyelitis of right foot with draining sinus M86.471 [facility] [address], [place] [address]- 0154 Aug, [facility] [address] [place] [address] 00026- 2926 Aug, [facility] [id number] [place] [address] 48033- 6646 Aug, Chronic osteomyelitis of right foot with draining sinus M86.471 [facility] [id number] [place] [address] 26335- 3391 Jul, [facility] [id number] [place] [address] 24326- 4787 Jul, [facility] [id number] [place] [address] 80723- 5581 Jul, Chronic kidney disease N18.9 [facility] [id number] [place] [address] 14417- 5952 Jul, Right ankle pain M25.571 [facility] [id number] [place] [address] 85213- 7981 Jul, Non-healing ulcer of right foot, unspecified ulcer stage L97.519 [facility] [id number] [place] [address] 87613- 7213 Jul, Chronic skin ulcer with fat layer exposed L98.492 [facility] [id number] [place] [address] 39322- 4925 Jul, Deformity of right ankle joint M21.961 [facility] [address] [place] [address] 76205- 6410 Jun, [facility] [id number] [place] [address] 39503- 0125 Jun, Diabetes mellitus E11.9 ; Skin ulcer of right foot with fat layer exposed L97.512 and Encounter for immunization Z23 [facility] [address] [place] [address] 85644- 2553 Jun, Right ankle pain M25.571 [facility] [address], [place] [address]- 2670 May, Right ankle pain M25.571 [facility] [id number] [place] [address] 799172- 5370 Apr, Right ankle pain M25.571 [facility] [id number] [place] [address] 68701- 1084 Mar, Right ankle pain M25.571 [facility] [id number] [place] [address] 12216- 3107 Mar, [facility] [id number] [place] [address] 43745- 5055 February, Diabetes mellitus E11.9 and Diabetic polyneuropathy associated with type 2 diabetes mellitus E11.42 [facility] [id number] [place] [address] 42501- 0428 February, Hyperkalemia E87.5 [facility] [id number] [place] [address] 68595- 1270 February, Right ankle pain M25.571 [facility] [id number] [place] [address] 06002- 0057 Jan, Right ankle pain M25.571 [facility] [id number] [place] [address] 85211- 3194 Dec, Right ankle pain M25.571 [facility] [id number] [place] [address] 67548- 2116 Dec, Right ankle pain M25.571 [facility] [id number] [place] [address] 566970- 8211 Nov, [facility] [id number] [place] [address] 71675- 1347 Nov, Diabetes mellitus E11.9 ; Hypertension I10 ; Gastroparesis K31.84 and Type 2 diabetes mellitus with diabetic autonomic (poly)neuropathy E11.43 [facility] [id number] [place] [address] 53583- 2778 Nov, Right ankle pain M25.571 [facility] [id number] [place] [address] 94542- 8544 Oct, Right ankle pain M25.571 [facility] [address] 81645- 8843 Oct, [facility] [address] 11769- 6719 Oct, [facility] [address] 92668- 2316 Sep, [facility] [address] 71264- 5618 Sep, Hypertension I10 [facility] [address] 61980- 7921 Sep, Chronic kidney disease N18.9 ; Right ankle pain M25.571 and GERD (gastroesophageal reflux disease) K21.9 [facility] [address] 21359- 6959 Jul, [facility] [id number] [place] [address] 36206- 5683 Jul, Encounter for immunization Z23 ; Venous insufficiency I87.2 and Diabetic polyneuropathy associated with type 2 diabetes mellitus E11.42 [facility] [id number] [place] [address] 98088- 4758 Jul, [facility] [address] 86050- 9019 Jul, Diabetes mellitus E11.9 [facility] [id number] [place] [address] 87479- 5356 May, [facility] [address] 32039- 6891 Apr, [facility] [address], [place] [address]- 7833 Mar, Right ankle pain M25.571 [facility] [id number] [place] [address] 26934- 5126 Mar, [facility] [id number] [place] [address] 59662- 5834 February, Paresthesias R20.2 [facility] [id number] [place] [address] 38579- 8555 February, [facility] [id number] [place] [address] 07162- 3401 February, 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 [facility] [id number] [place] [address] 74474- 1847 February, Diabetes mellitus E11.9 [facility] [id number] [place] [address] 98177- 6056 February, [facility] [id number] [place] [address] 96230- 6553 February, Polyneuropathy in diabetes 357.2 and Paresthesias R20.2 [facility] [address], [place] [address]- 0624 February, [facility] [address] [place] [address] 94762- 5451 February, [facility] [id number] [place] [address] 28579- 7346 February, [facility] [address] [place] [address] 25977- 6583 February, Diabetes mellitus E11.9 [facility] [id number] [place] [address] 36389- 0308 February, [facility] [id number] [place] [address] 36497- 9392 February, Hyperkalemia E87.5 [facility] [address], [place] [address]- 2181 Jan, Hypertension I10 [facility] [id number] [place] [address] 38866 2546 Jan, Insomnia G47.00 [facility] [id number] [place] [address] 14065 2546 Jan, [facility] [id number] [place] [address] 27059- 3138 Jan, [facility] [id number] [place] [address] 02674- 2071 Jan, [facility] [id number] [place] [address] 84983- 1266 Dec, Right ankle pain M25.571 [facility] [address] 95123- 3515 Dec, GERD (gastroesophageal reflux disease) K21.9 [facility] [id number] [place] [address] 93199- 5229 Dec, Insomnia G47.00 [facility] [id number] [place] [address] 55163 2545 Dec, Hypertension I10 and Hyperkalemia 276.7 [facility] [address] [place] [address] 48609 2547 Dec, Chronic kidney disease N18.9 [facility] [id number] [place] [address] 79942- 5491 Dec, [facility] [id number] [place] [address] 22550 2540 04 Dec, 2015 Hyperkalemia E87.5 [facility] [address] [place] [address] 12961- 2548 Dec, Chronic kidney disease N18.9 and Right ankle pain M25.571 [facility] [address], [place] [address]- 9211 11 Nov, 2015 GERD (gastroesophageal reflux disease) K21.9 [facility] [id number] [place] [address] 17000- 1065 Nov, Right ankle pain M25.571 [facility] [address] [place] [address] 71033- 8996 Nov, Diabetes mellitus E11.9 [facility] [address] [place] [address] 55948- 7717 Oct, [facility] [id number] [place] [address] 20691- 8426 Oct, [facility] [address] [place] [address] 86558- 3670 Oct, [facility] [address] [place] [address] 70395- 5250 Oct, Hyperkalemia E87.5 [facility] [address], [place] [address]- 8525 Oct, [facility] [address] [place] [address] 56311- 7757 Oct, Hyperkalemia E87.5 [facility] [address], [place] [address]- 9960 Sep, [facility] [address], [place] [address]- 8070 Sep, [facility] [address], [place] [address]- 8911 Sep, [facility] [address], [place] [address]- 2614 Sep, [facility] [address], [place] [address]- 6823 Sep, Right ankle pain M25.571 [facility] [id number] [place] [address] 90603- 3968 Aug, Chronic kidney disease N18.9 [facility] [id number] [place] [address] 45195- 7573 Aug, [facility] [id number] [place] [address] 13343- 0949 Aug, Hyperkalemia E87.5 [facility] [id number] [place] [address] 28004- 8731 Aug, [facility] [id number] [place] [address] 72112- 3144 Jul, [facility] [id number] [place] [address] 52506- 6288 Jul, [facility] [id number] [place] [address] 41852- 9798 Jul, [facility] [id number] [place] [address] 05912- 4289 Jul, Diabetes mellitus E11.9 ; Encounter for immunization Z23 ; Hypertension I10 and Hyperkalemia E87.5 [facility] [id number] [place] [address] 72189- 1804 Jul, [facility] [id number] [place] [address] 34556- 4793 Jul, Hyperkalemia E87.5 [facility] [id number] [place] [address] 60141- 6189 Jul, Hyperkalemia E87.5 [facility] [id number] [place] [address] 26320- 8392 Jun, [facility] [id number] [place] [address] 44684- 0197 Jun, [facility] [id number] [place] [address] 65636- 1059 15 Jun, 2015 [facility] [address] [facility] [id number] [place] [address]- 7586 Jun, [facility] [place] [facility] [address] [id number] [place] [address]- 4662 May, [facility] [place] [facility] [address] [id number] [place] [address]- 8882 May, [facility] [place] [facility] [address] [id number] [place] [address]- 9473 May, [facility] [place] [facility] [address] [id number] [place] [address]- 3174 May, Hyperkalemia 276.7 [facility] [place] [facility] [address] [id number] [place] [address]- 6940 May, [facility] [place] [facility] [address] [facility] [id number] [place] [address]- 9096 Apr, Hyperkalemia 276.7 [facility] [place] [facility] [address] [id number] [place] [address]- 5260 Apr, [facility] [place] [facility] [address] [id number] [place] [address]- 9131 Apr, [facility] [place] [facility] [address] [facility] [id number] [place] [address]- 1934 Apr, [facility] [place] [facility] [address] [facility] [id number] [place] [address]- 3229 Apr, [facility] [place] [facility] [address] [id number] [place] [address]- 0623 Apr, Hyperkalemia 276.7 [facility] [place] [facility] [address] [id number] [place] [address]- 4405 Apr, [facility] [place] [facility] [address] [facility] [id number] [place] [address]- 3943 Apr, [facility] [place] [facility] [address] [facility] [id number] [place] [address]- 1498 Mar, [facility] [place] [facility] [address], [place] [address]- 4868 Mar, Hyperkalemia 276.7 [facility] [address] [place] [address]- 7936 Mar, Hyperkalemia 276.7 [facility] [address] [place] [address]- 2742 Mar, [facility] [address], [place] [address]- 2546 Mar, [facility] [address] [place] [address]- 9353 Mar, [facility] [address], [place] [address]- 6868 Mar, [facility] [address], [place] [address]- 2645 Mar, Anserine bursitis 726.61 [facility] [address], [place] [address]- 0690 Mar, Asthma 493.90 and Hyperkalemia 276.7 [facility] [address], [place] [address]- 6170 Mar, [facility] [address], [place] [address]- 7126 February, [facility] [address], [place] [address]- 5125 February, [facility] [id number] [address]- 9274 February, [facility] [address] [place] [address]- 1987 February, [facility] [id number], [place] [address]- 9140 February, [facility] [address], [place] [address]- 4143 February, [facility] [place] [facility] [address] [id number] [place] [address]- 0009 February, [facility] [place] [facility] [address] [id number] [place] [address]- 6964 February, [facility] [place] [facility] [address] [id number] [place] [address]- 6216 February, [facility] [place] [facility] [address] [id number] [place] [address]- 5461 Jan, [facility] [place] [facility] [address] [id number] [place] [address]- 3634 Jan, [facility] [place] [facility] [address] [id number] [place] [address]- 0931 Dec, [facility] [place] [facility] [address] [id number] [place] [address]- 9161 Dec, [facility] [place] [facility] [address] [id number] [place] [address]- 0036 Dec, [facility] [place] [facility] [address] [id number] [place] [address]- 3018 Dec, [facility] [place] [facility] [address] [id number] [place] [address]- 2492 Dec, [facility] [place] [facility] [address] [id number] [place] [address]- 1156 Dec, [facility] [place] [facility] [address] [id number] [place] [address]- 4580 Dec, [facility] [place] [facility] [address] [id number] [place] [address]- 7632 Dec, [facility] [place] [facility] [address] [id number] [place] [address]- 7364 Dec, [facility] [place] [facility] [address] [id number] [place] 4857 Dec, [facility] [place] [facility] [address] [id number] [place] [address]- 3382 Dec, [facility] [place] [facility] [address] [id number] [place] [address]- 0896 Dec, [facility] [place] [facility] [address] [id number] [place] [address]- 2886 Dec, [facility] [place] [facility] [address] [id number] [place] [address]- 2693 Dec, [facility] [place] [facility] [address] [id number] [place] [address]- 8019 Nov, [facility] [place] [facility] [address] [id number] [place] [address]- 7527 Nov, [facility] [place] [facility] [address] [id number] [place] [address]- 9851 Nov, [facility] [place] [facility] [address] [id number] [place] [address]- 9219 Nov, [facility] [place] [facility] [address] [id number] [place] [address]- 8454 Nov, [facility] [place] [facility] [address] [id number] [place] [address]- 4663 Nov, [facility] [place] [facility] [address] [id number] [place] [address]- 9756 Oct, [facility] [place] [facility] [address] [id number] [place] [address]- 2389 Oct, [facility] [place] [facility] [address] [id number] [place] [address]- 2543 Oct, [facility] [place] [facility] [address] [id number] [place] [address]- 2546 Oct, [facility] [place] [facility] [address] [id number] [place] [address]- 2606 Oct, [facility] [place] [facility] [address] [id number] [place] [address]- 8545 Oct, [facility] [place] [facility] [address] [id number] [place] [address]- 9368 Sep, [facility] [place] [facility] [address] [id number] [place] [address]- 8993 Sep, [facility] [place] [facility] [address] [id number] [place] [address] Sep, [facility] [place] [facility] [address] [id number] [id number] [address] Sep, [facility] [place] [facility] [address] [id number] [place] [address] Sep, [facility] [place] [facility] [address] [id number] [place] [address] Sep, [facility] [place] [facility] [address] [id number] [place] [address] Aug, [facility] [place] [facility] [address] [id number] [place] [address] Aug, [facility] [place] [facility] [address] [id number] [place] [address] Aug, [facility] [place] [facility] [address] [id number] [place] [address] Aug, [facility] [place] [facility] [address] [id number], [place] [address] Aug, [facility] [place] [facility] [address] [id number], [place] [address] Aug, [facility] [place] [facility] [address] [id number] [place] [address] Jul, [facility] [place] [facility] [address] [id number] [place] [address] Jul, [facility] [place] [facility] [address] [id number] [place] [address] Jul, [facility] [place] [facility] [address] [id number] [place] [address] Jul, 2013 [facility] [place] [facility] [address] [id number] [place] [address] Jul, [facility] [place] [facility] [address] [id number] [place] [address] Jul, [facility] [place] [facility] [address] [id number] [place] [address] Jul, 2013 [facility] [place] [facility] [address] [id number] [place] [address] Jul, [facility] [place] [facility] [address] [id number] [place] [address] Jul, [facility] [place] [facility] [address] [id number] [place] [address] Jul, [facility] [place] [facility] [address] [id number] [place] [address] Jul, [facility] [place] [facility] [address] [id number] [place] [address] Jun, [facility] [place] [facility] [address] [id number] [place] [address] Jun, [facility] [place] [facility] [address] [id number] [place] [address] Jun, [facility] [place] [facility] [address] [id number] [place] [address] Jun, [facility] [place] [facility] [address] [id number] [place] [address] Apr, [facility] [place] [facility] [address] [id number] [place] [address] Apr, [facility] [place] [facility] [address] [id number] [place] [address] Apr, [facility] [place] [facility] [address] [id number] [place] [address] Apr, [facility] [address] [id number] [address] Mar, [facility] [id number] [address] Mar, [facility] [address] [facility] [id number] [address] Mar, [facility] [id number] [address] Mar, [facility] [id number] [address] Mar, [facility] [id number] [address] Sep, [facility] [id number] [address] Sep, [facility] [id number], [place] [address] Aug, IMMUNIZATIONS No Known Immunizations SOCIAL HISTORY Never Assessed REASON FOR VISIT oxycodone 07/13/2017 PLAN OF CARE VITAL SIGNS MEDICATIONS Medication [...]
--- OUTSIDE RECORDS SUMMARY | 2018-07-12 09:23 | XMS REPORT ---
Author Author OLYA WILLIS [facility] eClinicalWorks Address Unknown Phone Unavailable Care Team Providers Care Industrial Waste Treatment Technician Name Role Phone OLYA WILLIS CP Unavailable [...] 536.3 Active Problem Hypopotassemia 276.8 Active Medications No Known Medications Results No Known Results Summary Purpose eClinicalWorks Submission
--- OUTSIDE RECORDS SUMMARY | 2018-07-12 09:23 | XMS REPORT ---
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 Active 677450749 Problem Chronic skin ulcer with fat layer exposed L98.492 Active 60142710 Problem Type 2 diabetes mellitus with diabetic autonomic (poly)neuropathy E11.43 Active 487677260 Problem Type 2 diabetes mellitus with foot ulcer E11.621 Active 16094001878064 Problem Chronic osteomyelitis of right foot with draining sinus M86.471 Active 794321149484221 Problem Diabetes mellitus E11.9 Active 46311292 Problem Chronic kidney disease N18.9 Active 306048499 Problem Paresthesias R20.2 Active 23619267 Problem Hypertension I10 Active 75543199 Problem Diabetic polyneuropathy associated with type 2 diabetes mellitus E11.42 Active 84888178 ALLERGIES No Information ENCOUNTERS Encounter Location Date Diagnosis [facility] [id number] [address] Apr, [facility] [id number] [address] Mar, Decubitus ulcer of right heel, stage 3 L89.613 [facility] [id number] [address] 8299 Mar, [facility] [id number] [place] [address] 00817- 4222 Mar, Pressure ulcer of unspecified heel, stage 4 L89.604 and Type 2 diabetes mellitus with foot ulcer E11.621 [facility] [id number] [place] [address] 13626- 3752 Mar, Encounter for medication monitoring Z51.81 [facility] [address] 43061- 4672 Mar, Type 2 diabetes mellitus with foot ulcer E11.621 and Non- pressure chronic ulcer of right heel and midfoot with unspecified severity L97.419 [facility] [address] 50402- 3782 February, [facility] [address] 26318- 8510 Jan, Right ankle pain M25.571 [facility] [address] 34520- 8333 Dec, Right ankle pain M25.571 [facility] [id number] [place] [address] 17657- 1975 Dec, [facility] [id number] [place] [address] 30508- 1774 Dec, [facility] [id number] [place] [address] 65050- 3192 Dec, Right ankle pain M25.571 [facility] [address] 38477- 7623 Dec, Chronic skin ulcer with fat layer exposed L98.492 ; Type 2 diabetes mellitus with diabetic autonomic (poly)neuropathy E11.43 and Hypertension I10 [facility] [id number] [place] [address] 91866- 3026 Nov, [facility] [id number] [place] [address] 53607- 2156 Nov, [facility] [id number] [place] [address] 77217- 8776 Nov, [facility] [id number] [place] [address] 48745- 8723 Nov, Right ankle pain M25.571 and Chronic osteomyelitis of right foot with draining sinus M86.471 [facility] [id number] [place] [address] 29154- 2693 Oct, Right ankle pain M25.571 [facility] [id number] [place] [address] 86260- 4829 Oct, [facility] [address] 30029- 1733 Sep, Diabetes mellitus E11.9 [facility] [id number] [place] [address] 26670- 0336 Sep, Diabetic polyneuropathy associated with type 2 diabetes mellitus E11.42 and Venous insufficiency I87.2 [facility] [id number] [place] [address] 18506- 4454 Sep, Right ankle pain M25.571 [facility] [id number] [place] [address] 67634- 7570 Aug, Right ankle pain M25.571 [facility] [id number] [place] [address] 28465- 2792 Aug, Chronic osteomyelitis of right foot with draining sinus M86.471 [facility] [id number] [place] [address] 25927- 9817 Aug, [facility] [id number] [place] [address] 81014- 4627 Aug, [facility] [id number] [place] [address] 54562- 5139 Aug, Chronic osteomyelitis of right foot with draining sinus M86.471 [facility] [id number] [place] [address] 96035- 5622 Jul, [facility] [id number] [place] [address] 80993- 8809 Jul, [facility] [id number] [place] [address] 67312- 9903 Jul, Chronic kidney disease N18.9 [facility] [address] 56350- 6555 Jul, Right ankle pain M25.571 [facility] [facility] [address] 52086- 0315 Jul, Non-healing ulcer of right foot, unspecified ulcer stage L97.519 [facility] [address] 63531- 8541 Jul, Chronic skin ulcer with fat layer exposed L98.492 [facility] [address] 55943- 1468 Jul, Deformity of right ankle joint M21.961 [facility] [id number] [place] [address] 49375- 1884 Jun, [facility] [address] 17386- 4498 Jun, Diabetes mellitus E11.9 ; Skin ulcer of right foot with fat layer exposed L97.512 and Encounter for immunization Z23 [facility] [id number] [place] [address] 85394- 2883 Jun, Right ankle pain M25.571 [facility] [address] 91431- 9647 May, Right ankle pain M25.571 [facility] [address] 49489- 7824 Apr, Right ankle pain M25.571 [facility] [id number] [place] [address] 37028- 0958 Mar, Right ankle pain M25.571 [facility] [id number] [place] [address] 98402- 3417 Mar, [facility] [id number] [place] [address] 96062- 1007 February, Diabetes mellitus E11.9 and Diabetic polyneuropathy associated with type 2 diabetes mellitus E11.42 [facility] [id number] [place] [address] 80163- 3993 February, Hyperkalemia E87.5 [facility] [id number] [place] [address] 81892- 6133 February, Right ankle pain M25.571 [facility] [id number] [place] [address] 88082- 6139 Jan, Right ankle pain M25.571 [facility] [id number] [place] [address] 66590- 8849 Dec, Right ankle pain M25.571 [facility] [id number] [place] [address] 13880- 9946 Dec, Right ankle pain M25.571 [facility] [id number] [place] [address] 29704- 5555 Nov, [facility] [id number] [place] [address] 33368- 2255 Nov, Diabetes mellitus E11.9 ; Hypertension I10 ; Gastroparesis K31.84 and Type 2 diabetes mellitus with diabetic autonomic (poly)neuropathy E11.43 [facility] [id number] [place] [address] 67437- 8259 Nov, Right ankle pain M25.571 [facility] [id number] [place] [address] 90508- 0177 Oct, Right ankle pain M25.571 [facility] [id number] [place] [address] 94375- 5620 Oct, [facility] [id number] [place] [address] 30944- 9807 Oct, [facility] [id number] [place] [address] 64773- 7439 Sep, [facility] [id number] [place] [address] 28555- 0538 Sep, Hypertension I10 [facility] [address] 22882- 3920 Sep, Chronic kidney disease N18.9 ; Right ankle pain M25.571 and GERD (gastroesophageal reflux disease) K21.9 [facility] [address] 51115- 6387 Jul, [facility] [address] 20262- 7508 Jul, Encounter for immunization Z23 ; Venous insufficiency I87.2 and Diabetic polyneuropathy associated with type 2 diabetes mellitus E11.42 [facility] [id number] [place] [address] 87974- 7313 Jul, [facility] [address] 34034- 4948 Jul, Diabetes mellitus E11.9 [facility] [id number] [place] [address] 85341- 6363 May, [facility] [id number] [place] [address] 81646- 1544 Apr, [facility] [id number] [place] [address] 51327- 2739 Mar, Right ankle pain M25.571 [facility] [address] 57597- 1306 Mar, [facility] [id number] [place] [address] 96439- 1193 February, Paresthesias R20.2 [facility] [address] [place] [address]- 1269 February, [facility] [id number] [place] [address] 50222- 9309 February, 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 [facility] [id number] [place] [address] 11203- 8489 February, Diabetes mellitus E11.9 [facility] [address] 47110- 5458 February, [facility] [id number] [place] [address] 17227- 2089 February, Polyneuropathy in diabetes 357.2 and Paresthesias R20.2 [facility] [id number] [place] [address] 37130- 1794 February, [facility] [address] 18973- 0408 February, [facility] [id number] [place] [address] 97679- 8854 February, [facility] [id number] [place] [address] 88984- 5792 February, Diabetes mellitus E11.9 [facility] [id number] [place] [address] 82670- 5214 February, [facility] [id number] [place] [address] 82893- 2499 February, Hyperkalemia E87.5 [facility] [id number] [place] [address] 42658- 0468 Jan, Hypertension I10 [facility] [id number] [place] [address] 53276- 8876 Jan, Insomnia G47.00 [facility] [id number] [place] [address] 61062- 6167 Jan, [facility] [id number] [place] [address] 42490- 3096 Jan, [facility] [id number] [place] [address] 43583- 7338 Jan, [facility] [id number] [place] [address] 118660- 1731 Dec, Right ankle pain M25.571 [facility] [id number] [place] [address] 49291- 8431 Dec, GERD (gastroesophageal reflux disease) K21.9 [facility] [id number] [place] [address] 58873- 3588 Dec, Insomnia G47.00 [facility] [id number] [place] [address] 77860- 3012 Dec, Hypertension I10 and Hyperkalemia 276.7 [facility] [id number] [place] [address] 58269- 2401 Dec, Chronic kidney disease N18.9 [facility] [id number] [place] [address] 40279- 7545 Dec, [facility] [id number] [place] [address] 45475- 0906 Dec, Hyperkalemia E87.5 [facility] [id number] [place] [address] 48399- 5670 Dec, Chronic kidney disease N18.9 and Right ankle pain M25.571 [facility] [id number] [place] [address] 28700- 4832 Nov, GERD (gastroesophageal reflux disease) K21.9 [facility] [id number] [place] [address] 84030- 0829 Nov, Right ankle pain M25.571 [facility] [id number] [place] [address] 32482- 5027 Nov, Diabetes mellitus E11.9 [facility] [id number] [address]- 2663 Oct, [facility] [address] [address]- 2935 Oct, [facility] [address] [address]- 1198 Oct, [facility] [id number] [place] [address] 17660- 3641 Oct, Hyperkalemia E87.5 [facility] [id number] [place] [address] 67722- 4576 Oct, [facility] [id number] [place] [address] 25245- 2906 Oct, Hyperkalemia E87.5 [facility] [id number] [place] [address] 43527- 3824 Sep, [facility] [address] [address]- 8200 Sep, [facility] [address] [address]- 9300 Sep, [facility] [id number] [place] [address] 90882- 1601 Sep, [facility] [address] [address]- 1592 Sep, Right ankle pain M25.571 [facility] [address] [address]- 6862 30 Aug, 2015 Chronic kidney disease N18.9 [facility] [address] [address]- 6896 Aug, [facility] [address] [address]- 2543 Aug, Hyperkalemia E87.5 [facility] [id number] [place] [address] 10340- 7627 Aug, [facility] [id number] [place] [address] 70663- 0687 Jul, [facility] [id number] [place] [address] 41296- 7159 Jul, [facility] [id number] [place] [address] 84012- 1193 Jul, [facility] [id number] [place] [address] 59510- 4958 Jul, Diabetes mellitus E11.9 ; Encounter for immunization Z23 ; Hypertension I10 and Hyperkalemia E87.5 [facility] [id number] [place] [address] 72548- 0783 Jul, [facility] [id number] [place] [address] 71832- 6608 Jul, Hyperkalemia E87.5 [facility] [id number] [place] [address] 96511- 7653 Jul, Hyperkalemia E87.5 [facility] [id number] [place] [address] 72404- 1603 Jun, [facility] [id number] [place] [address] 42391- 0531 Jun, [facility] [id number] [place] [address] 83431- 6506 15 Jun, 2015 [facility] [id number] [place] [address] 69731- 1214 Jun, [facility] [id number] [place] [address] 05521- 9627 May, [facility] [id number] [place] [address] 01899- 0132 May, [facility] [id number] [place] [address] 92145- 7693 May, [facility] [address] [facility] [id number] [place] [address]- 2009 May, Hyperkalemia 276.7 [facility] [place] [facility] [address] [facility] [id number] [place] [address]- 2195 May, [facility] [place] [facility] [address] [facility] [id number] [place] [address]- 8993 Apr, Hyperkalemia 276.7 [facility] [place] [facility] [address] [facility] [id number] [place] [address]- 0631 Apr, [facility] [place] [facility] [address] [facility] [id number] [place] [address]- 6271 Apr, [facility] [place] [facility] [address] [facility] [id number] [place] [address]- 1996 Apr, [facility] [place] [facility] [address] [facility] [id number] [place] [address]- 2628 Apr, [facility] [place] [facility] [address] [facility] [id number] [place] [address]- 7684 Apr, Hyperkalemia 276.7 [facility] [place] [facility] [id number] [place] [address]- 0277 Apr, [facility] [place] [facility] [address] [facility] [id number] [place] [address]- 4319 Apr, [facility] [place] [facility] [address] [facility] [id number] [place] [address]- 0865 Mar, [facility] [place] [facility] [address] [facility] [id number] [place] [address]- 2547 Mar, Hyperkalemia 276.7 [facility] [place] [facility] [address] [facility] [id number] [place] [address]- 3796 Mar, Hyperkalemia 276.7 [facility] [place] [facility] [address] [facility] [id number] [place] [address]- 4531 Mar, [facility] [place] [facility] [id number] [address]- 3740 Mar, [facility] [address] [facility] [id number] [address]- 9263 Mar, [facility] [address] [facility] [id number] [place] [address]10 Mar, [facility] [address] [address]- 9792 Mar, Anserine bursitis 726.61 [facility] [address] [facility] [id number] [place] [address] 01454- 5921 Mar, Asthma 493.[address] [facility] [id number] [place] [address] 358221- 1850 Mar, [facility] [address] [address]- 3471 February, [facility] [address] [address]- 9997 February, [facility] [id number] [address]- 0348 February, [facility] [address] [address]- 2751 February, [facility] [address] [address]- 6786 February, [facility] [id number] [address]- 3082 February, [facility] [address] [facility] [id number] [place] 4567 February, [facility] [id number]- 3635 February, [facility] [id number] [address]- 9150 February, [facility] [address] [address]- 5750 14 Jan, 2015 [facility] [place] [facility] [address] [id number] [place] [address]- 5801 Jan, [facility] [place] [facility] [address] [id number] [place] [address]- 5634 Dec, [facility] [place] [facility] [address] [id number] [place] [address]- 1679 Dec, [facility] [place] [facility] [address] [id number] [place] [address]- 6469 Dec, [facility] [place] [facility] [address] [id number] [place] [address]- 1640 Dec, [facility] [place] [facility] [address] [id number] [place] [address]- 2940 Dec, [facility] [place] [facility] [address] [id number] [place] [address]- 5424 Dec, [facility] [place] [facility] [address] [id number] [place] [address]- 9889 Dec, [facility] [place] [facility] [address] [id number] [place] [address]- 9480 Dec, [facility] [place] [facility] [address] [id number] [place] [address]- 2004 Dec, [facility] [place] [facility] [address] [id number] [place] [address]- 8672 Dec, [facility] [place] [facility] [address] [id number] [place] [address]- 3950 Dec, [facility] [place] [facility] [address] [id number] [place] [address]- 3069 Dec, [facility] [place] [facility] [address] [id number] [place] [address]- 8590 Dec, [facility] [place] [facility] [address] [id number] [place] [address]- 2906 Dec, [facility] [place] [facility] [address] [id number] [place] [address]- 3655 Nov, 2014 [facility] [place] [facility] [address] [id number] [place] [address]- 0739 Nov, 2014 [facility] [place] [facility] [address] [id number] [place] [address]- 0881 Nov, 2014 [facility] [place] [facility] [address] [id number] [place] [address]- 2666 Nov, 2014 [facility] [place] [facility] [address] [id number] [place] [address]- 4031 Nov, [facility] [place] [facility] [address] [id number] [place] [address] Nov, [facility] [place] [facility] [address] [facility] [id number] [place] [address] Oct, [facility] [place] [facility] [address] [id number] [place] [address] Oct, [facility] [place] [facility] [address] [id number] [place] [address] Oct, [facility] [place] [facility] [address] [facility] [id number] [place] [address] Oct, [facility] [place] [facility] [address] [id number] [place] [address] Oct, [facility] [place] [facility] [address] [id number] [place] [address] Oct, [facility] [place] [facility] [address] [id number] [place] [address] Sep, [facility] [place] [facility] [address] [id number] [place] [address] Sep, [facility] [place] [facility] [address] [id number] [place] [address] Sep, [facility] [place] [facility] [address] [id number] [place] [address] Sep, [facility] [place] [facility] [address] [id number] [place] [address] Sep, [facility] [place] [facility] [address] [id number] [place] [address] Sep, [facility] [place] [facility] [address] [id number] [place] [address] Aug, [facility] [place] [facility] [address] [id number] [place] [address] Aug, [facility] [place] [facility] [address] [id number] [place] [address] Aug, [facility] [place] [facility] [address] [id number] [place] [address] Aug, [facility] [place] [facility] [address] [id number] [place] [address] Aug, [facility] [place] [facility] [address] [id number] [place] [address] Aug, [facility] [place] [facility] [address] [id number] [place] [address] Jul, [facility] [place] [facility] [address] [id number] [place] [address] 30 Jul, 2014 [facility] [place] [facility] [address] [id number] [place] [address] Jul, [facility] [place] [facility] [address] [id number] [place] [address] Jul, [facility] [place] [facility] [address] [id number] [place] [address] Jul, [facility] [place] [facility] [address] [id number] [place] [address] Jul, [facility] [place] [facility] [address] [id number] [place] [address] Jul, [facility] [place] [facility] [address] [id number] [place] [address] Jul, [facility] [place] [facility] [address] [id number] [place] [address] Jul, [facility] [place] [facility] [address] [id number] [place] [address] Jul, [facility] [place] [facility] [address] [id number] [place] [address] Jul, [facility] [place] [facility] [address] [id number] [place] [address] Jun, [facility] [place] [facility] [address] [id number] [place] [address] Jun, [facility] [place] [facility] [address] [address] [id number] [place] [address] Jun, [facility] [place] [facility] [address] [id number] [place] [address] Jun, [facility] [place] [facility] [address] [id number] [place] [address] Apr, [facility] [place] [facility] [address] [id number] [place] [address] Apr, [facility] [place] [facility] [address] [id number] [place] [address] Apr, [facility] [place] [facility] [address] [id number] [place] [address] Apr, [facility] [place] [facility] [address] [id number] [place] [address] Mar, [facility] [place] [facility] [address] [id number] [place] [address] Mar, [facility] [place] [facility] [address] [id number] [place] [address] Mar, [facility] [place] [facility] [address] [id number] [place] [address] Mar, [facility] [address] [facility] [id number] [place] [address] Mar, [facility] [address] [facility] [id number] [place] [address] Sep, [facility] [address] [facility] [id number] [place] [address] Sep, [facility] [address] [facility] [id number] [place] [address] Aug, IMMUNIZATIONS No Known Immunizations SOCIAL HISTORY [...]
--- OUTSIDE RECORDS SUMMARY | 2018-07-12 09:23 | XMS REPORT ---
Author Author OLYA WILLIS [facility] eClinicalWorks Address Unknown Phone Unavailable Care Team Providers Care Vice Chairman Name Role Phone OLYA WILLIS CP Unavailable [...] Instructions Start Date End Date Status Dosage [facility] [id number] 15 GM/60ML Orally 2 times a day 1 tablespoon Results No Known Results Summary Purpose eClinicalWorks Submission
--- OUTSIDE RECORDS SUMMARY | 2018-07-12 09:23 | XMS REPORT ---
Author Author OLYA WILLIS Organization [facility] Address [address] [place] [address] Care Team Providers Care Supervisor Floor Assembly Name Role Phone OLYA WILLIS Unavailable PROBLEMS Type Condition ICD9-CM Code DCP09-TJ Code Onset Dates Condition Status SNOMED Code Problem Chronic kidney disease N18.9 Active 399493104 Problem Diabetic polyneuropathy associated with type 2 diabetes mellitus E11.42 Active 43016569 Problem Paresthesias R20.2 Active 46840263 Problem Hypertension I10 Active 97729171 Problem Diabetes mellitus E11.9 Active 78441321 Problem Chronic osteomyelitis of right foot with draining sinus M86.471 Active [id number] Problem Chronic skin ulcer with fat layer exposed L98.492 Active 29184331 Problem GERD (gastroesophageal reflux disease) K21.9 Active 305861699 Problem Venous insufficiency I87.2 Active 47112931 Problem Type 2 diabetes mellitus with diabetic autonomic (poly)neuropathy E11.43 Active 073876264 Problem Gastroparesis K31.84 Active 710926543 ALLERGIES No Information ENCOUNTERS Encounter Location Date Diagnosis [place] [id number] [place] [address] 21870- 1396 Dec, Right ankle pain M25.571 [facility] [id number] [place] [address] 07179- 2444 Dec, [facility] [id number] [place] [address] 51804- 6719 Dec, [facility] [id number] [place] [address] 22493- 6242 Dec, Right ankle pain M25.571 [facility] [id number] [place] [address] 04376- 0878 Dec, Chronic skin ulcer with fat layer exposed L98.492 ; Type 2 diabetes mellitus with diabetic autonomic (poly)neuropathy E11.43 and Hypertension I10 [facility] [id number] [place] [address] 08101- 4319 Nov, [facility] [id number] [place] [address] 40206- 1961 Nov, [facility] [id number] [place] [address] 73386- 8801 Nov, [facility] [id number] [place] [address] 73598- 5220 Nov, Right ankle pain M25.571 and Chronic osteomyelitis of right foot with draining sinus M86.471 [place] [address] [place] [id number] [place] [address] 45525- 9034 Oct, Right ankle pain M25.571 [place] [address] [place] [id number] [place] [address] 94847- 9492 Oct, [facility] [id number] [place] [address] 23030- 7199 Sep, Diabetes mellitus E11.9 [facility] [id number] [place] [address] 46103- 4926 Sep, Diabetic polyneuropathy associated with type 2 diabetes mellitus E11.42 and Venous insufficiency I87.2 [place] [id number] [place] [address] 72919- 0043 Sep, Right ankle pain M25.571 [facility] [id number] [place] [address] 94148- 5283 Aug, Right ankle pain M25.571 [facility] [id number] [place] [address] 00648- 5427 Aug, Chronic osteomyelitis of right foot with draining sinus M86.471 [facility] [address] [address]- 4047 Aug, [facility] [id number] [place] [address] 57591- 5558 Aug, [facility] [id number] [place] [address] 04846- 6895 Aug, Chronic osteomyelitis of right foot with draining sinus M86.471 [facility] [id number] [place] [address] 84076- 1364 Jul, [facility] [id number] [place] [address] 21517- 6998 Jul, [place] [address] [place] [id number] [place] [address] 43425- 0683 Jul, Chronic kidney disease N18.9 [place] [address] [place] [id number] [place] [address] 74602- 5983 Jul, Right ankle pain M25.571 [place] [address] 23793- 8352 Jul, Non-healing ulcer of right foot, unspecified ulcer stage L97.519 [place] [address] [place] [id number] [place] [address] 38695- 6540 Jul, Chronic skin ulcer with fat layer exposed L98.492 [place] [address] [place] [id number] [place] [address] 19918- 7801 Jul, Deformity of right ankle joint M21.961 [place] [address] [place] [id number] [place] [address] 54884- 2152 Jun, [place] [address] [place] [id number] [place] [address] 43415- 6001 Jun, Diabetes mellitus E11.9 ; Skin ulcer of right foot with fat layer exposed L97.512 and Encounter for immunization Z23 [place] [address] [place] [id number] [place] [address] 24607- 4371 Jun, Right ankle pain M25.571 [place] [address] [place] [id number] [place] [address] 76107- 7131 May, Right ankle pain M25.571 [facility] [id number] [place] [address] 22669- 7925 Apr, Right ankle pain M25.571 [facility] [address] [id number] [place] [address] 89723- 3827 Mar, Right ankle pain M25.571 [facility] [address] [id number] [place] [address] 99686- 9243 Mar, [facility] [id number] [place] [address] 57863- 1765 February, Diabetes mellitus E11.9 and Diabetic polyneuropathy associated with type 2 diabetes mellitus E11.42 [place] [address] [place] [id number] [place] [address] 65399- 5369 February, Hyperkalemia E87.5 [place] [address] [place] [id number] [place] [address] 68747- 0191 February, Right ankle pain M25.571 [facility] [address] [id number] [place] [address] 34160- 3920 Jan, Right ankle pain M25.571 [place] [address] [place] [id number] [place] [address] 44999- 5980 Dec, Right ankle pain M25.571 [place] [address] [place] [id number] [place] [address] 05570- 5595 Dec, Right ankle pain M25.571 [facility] [address] [place] [id number] [place] [address] 21397- 9306 Nov, [place] [address] [place] [id number] [place] [address] 93102- 9274 Nov, Diabetes mellitus E11.9 ; Hypertension I10 ; Gastroparesis K31.84 and Type 2 diabetes mellitus with diabetic autonomic (poly)neuropathy E11.43 [place] [address] [place] [id number] [place] [address] 49895- 4497 Nov, Right ankle pain M25.571 [facility] [id number] [place] [address] 47449- 4618 Oct, Right ankle pain M25.571 [facility] [id number] [place] [address] 21539- 5406 Oct, [facility] [address] [id number] [place] [address] 99311- 6604 Oct, [facility] [id number] [place] [address] 91570- 5988 Sep, [place] [address] 91134- 3773 Sep, Hypertension I10 [place] [address] [place] [id number] [place] [address] 81971- 5361 Sep, Chronic kidney disease N18.9 ; Right ankle pain M25.571 and GERD (gastroesophageal reflux disease) K21.9 [facility] [address] [place] [id number] [place] [address] 75772- 4191 Jul, [place] [address] [place] [id number] [place] [address] 78223- 6508 Jul, Encounter for immunization Z23 ; Venous insufficiency I87.2 and Diabetic polyneuropathy associated with type 2 diabetes mellitus E11.42 [place] [address] [place] [id number] [place] [address] 22708- 6595 Jul, [facility] [address] [place] [id number] [place] [address] 80235- 3934 Jul, Diabetes mellitus E11.9 [facility] [address] [place] [id number] [place] [address] 66445- 8852 May, [facility] [address] [place] [id number] [place] [address] 89289- 6243 Apr, [facility] [address] [place] [id number] [place] [address] 88663- 4508 Mar, Right ankle pain M25.571 [facility] [id number] [place] [address] 22586- 0854 Mar, [facility] [id number] [place] [address] 46708- 6513 February, Paresthesias R20.2 [facility] [id number] [place] [address] 73360- 7611 February, [facility] [id number] [place] [address] 85500- 1228 February, 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 [facility] [id number] [place] [address] 00916- 7914 February, Diabetes mellitus E11.9 [facility] [id number] [place] [address] 20398- 9562 February, [facility] [id number] [place] [address] 65792- 1712 February, Polyneuropathy in diabetes 357.2 and Paresthesias R20.2 [facility] [id number] [place] [address] 44068- 4693 February, [facility] [address] [id number] [place] [address] 10402- 7421 February, [facility] [id number] [place] [address] 86212- 2403 February, [facility] [id number] [place] [address] 16271- 0595 February, Diabetes mellitus E11.9 [facility] [id number] [place] [address] 97896- 0723 February, [facility] [id number] [place] [address] 78451- 8074 February, Hyperkalemia E87.5 [facility] [id number] [place] [address] 64366- 6194 Jan, Hypertension I10 [facility] [id number] [place] [address] 68842- 8535 Jan, Insomnia G47.00 [facility] [id number] [place] [address] 77269- 9716 Jan, [facility] [id number] [place] [address] 75300- 9121 Jan, [facility] [id number] [place] [address] 49699- 2269 Jan, [facility] [id number] [place] [address] 05104- 8238 Dec, Right ankle pain M25.571 [facility] [address] [place] [id number] [place] [address] 24273- 0290 Dec, GERD (gastroesophageal reflux disease) K21.9 [facility] [address] [place] [id number] [place] [address] 37631- 7031 Dec, Insomnia G47.00 [facility] [id number] [place] [address] 68432- 6812 Dec, Hypertension I10 and Hyperkalemia 276.7 [facility] [id number] [place] [address] 57682- 6891 Dec, Chronic kidney disease N18.9 [facility] [id number] [place] [address] 62886- 3574 Dec, [facility] [address] [id number] [place] [address] 16633- 3261 Dec, Hyperkalemia E87.5 [facility] [address] [place] [id number] [place] [address] 44081- 9756 Dec, Chronic kidney disease N18.9 and Right ankle pain M25.571 [facility] [id number] [place] [address] 25888- 3268 Nov, GERD (gastroesophageal reflux disease) K21.9 [facility] [address] [address]- 0793 Nov, Right ankle pain M25.571 [facility] [id number] [place] [address] 62452- 9903 Nov, Diabetes mellitus E11.9 [facility] [id number] [place] [address] 30272- 5387 Oct, [facility] [id number] [place] [address] 83424- 0376 Oct, [facility] [id number] [place] [address] 67886- 5688 Oct, [facility] [id number] [place] [address] 43360- 5080 Oct, Hyperkalemia E87.5 [facility] [id number] [place] [address] 98637- 6489 Oct, [facility] [id number] [place] [address] 22382- 6507 Oct, Hyperkalemia E87.5 [facility] [id number] [place] [address] 26379- 6609 Sep, [facility] [address] [address]- 5251 Sep, [facility] [id number] [place] [address] 94628- 8190 Sep, [facility] [address] [address]- 8917 Sep, [facility] [id number] [place] [address] 71939- 3477 Sep, Right ankle pain M25.571 [facility] [address] [address]- 2470 Aug, Chronic kidney disease N18.9 [facility] [address] [facility] [id number] [address]- 9499 Aug, [facility] [id number] [place] [address] 33122- 6660 Aug, Hyperkalemia E87.5 [facility] [id number] [place] [address] 73296- 2264 Aug, [facility] [id number] [place] [address] 26360- 8382 Jul, [facility] [id number] [place] [address] 73935- 3108 Jul, [facility] [id number] [place] [address] 98295- 4082 Jul, [facility] [id number] [place] [address] 19623- 2904 Jul, Diabetes mellitus E11.9 ; Encounter for immunization Z23 ; Hypertension I10 and Hyperkalemia E87.5 [facility] [id number] [place] [address] 84922- 1037 Jul, [facility] [id number] [place] [address] 01439- 8640 Jul, Hyperkalemia E87.5 [facility] [id number] [place] [address] 21521- 8809 Jul, Hyperkalemia E87.5 [facility] [address] [address]- 8965 28 Jun, 2015 [facility] [id number] [place] [address] 27706- 6074 21 Jun, 2015 [facility] [id number] [place] [address] 83665- 6761 15 Jun, 2015 [facility] [address] [address]- 5563 11 Jun, 2015 [facility] [address] [facility] [id number] [place] [address]- 2960 May, [facility] [place] [facility] [address] [id number] [place] [address]- 7725 May, [facility] [place] [facility] [address] [id number] [place] [address]- 6407 May, [facility] [place] [facility] [address] [facility] [id number] [place] [address]- 9950 May, Hyperkalemia 276.7 [facility] [place] [facility] [address] [id number] [place] [address]- 0381 May, [facility] [place] [facility] [address] [id number] [place] [address]- 6982 Apr, Hyperkalemia 276.7 [facility] [place] [facility] [address] [facility] [id number] [place] [address]- 4868 Apr, [facility] [place] [facility] [address] [facility] [id number] [place] [address]- 9949 Apr, [facility] [place] [facility] [address] [facility] [id number] [place] [address]- 5300 Apr, [facility] [place] [facility] [address] [facility] [id number] [place] [address]- 4340 Apr, [facility] [place] [facility] [address] [place] [id number] [address]- 6146 Apr, Hyperkalemia 276.7 [facility] [place] [facility] [address] [id number] [place] [address]- 0798 Apr, [facility] [place] [facility] [address] [facility] [id number] [place] [address]- 5679 Apr, [facility] [place] [facility] [address] [facility] [id number] [place] [address]- 7449 Mar, [facility] [place] [facility] [address] [facility] [id number] [place] [address]- 8304 Mar, Hyperkalemia 276.7 [facility] [address] [facility] [id number] [place] [address]- 7554 Mar, Hyperkalemia 276.7 [facility] [address] [facility] [id number] [place] [address]- 6998 Mar, [facility] [address] [place] [address]- 5776 Mar, [facility] [address] [address]- 7719 Mar, [facility] [id number] [address]- 4707 Mar, [facility] [address] [address]- 5059 Mar, Anserine bursitis 726.61 [facility] [id number] [place] [address] 05668- 8783 Mar, Asthma 493.90 and Hyperkalemia 276.7 [facility] [address] [address]- 5833 Mar, [facility] [address] [address]- 5202 February, [facility] [address] [address]- 8521 February, [facility] [address] [address]- 4760 February, [facility] [id number] [address]- 2956 February, [facility] [id number] [address]- 0058 February, [facility] [id number] [address]- 7592 February, [facility] [address] [address]- 8392 February, [facility] [place] [facility] [address] [id number] [place] [address]- 7929 February, [facility] [place] [facility] [address] [id number] [place] [address]- 6316 February, [facility] [place] [facility] [address] [id number] [place] [address]- 0347 Jan, [facility] [place] [facility] [address] [id number] [place] [address]- 1053 Jan, [facility] [place] [facility] [address] [id number] [place] [address]- 5734 Dec, [facility] [place] [facility] [address] [id number] [place] [address]- 8821 Dec, [facility] [place] [facility] [address] [id number] [place] [address]- 0294 Dec, [facility] [place] [facility] [address] [id number] [place] [address]- 3438 Dec, [facility] [place] [facility] [address] [id number] [place] [address]- 0831 Dec, [facility] [place] [facility] [address] [id number] [place] [address]- 2012 Dec, [facility] [place] [facility] [address] [id number] [place] [address]- 8929 Dec, [facility] [place] [facility] [address] [id number] [place] [address]- 0132 Dec, [facility] [place] [facility] [address] [id number] [place] [address]- 0434 Dec, [facility] [place] [facility] [address] [id number] [place] [address]- 6033 Dec, [facility] [place] [facility] [address] [id number] [place] 5082 Dec, [facility] [place] [facility] [address] [id number] [place] [address]- 8434 Dec, [facility] [place] [facility] [address] [id number] [place] [address]- 1286 Dec, [facility] [place] [facility] [address] [id number] [place] [address] 2546 Dec, [facility] [place] [facility] [address] [id number] [place] [address]- 0446 Nov, [facility] [place] [facility] [address] [id number] [place] [address]- 2543 Nov, [facility] [place] [facility] [address] [id number] [place] [address]- 0736 Nov, [facility] [place] [facility] [address] [id number] [place] [address]- 7913 Nov, [facility] [place] [facility] [address] [id number] [place] [address]- 2547 Nov, [facility] [place] [facility] [address] [id number] [place] [address]- 2961 Nov, [facility] [place] [facility] [address] [id number] [place] [address]- 5493 Oct, [facility] [place] [facility] [address] [id number] [place] [address]- 7273 Oct, [facility] [place] [facility] [address] [id number] [place] [address] 2545 Oct, [facility] [place] [facility] [address] [id number] [place] [address]- 2549 Oct, [facility] [place] [facility] [address] [id number] [place] [address]- 2546 Oct, [facility] [place] [facility] [address] [id number] [place] [address]- 2540 Oct, [facility] [place] [facility] [address] [id number] [place] [address] Sep, [facility] [place] [facility] [address] [id number] [place] [address] 30 Sep, 2014 [facility] [place] [facility] [address] [id number] [place] [address] 1995 Sep, [facility] [place] [facility] [address] [id number] [place] [address] Sep, [facility] [place] [facility] [address] [id number] [place] [address] Sep, [facility] [place] [facility] [address] [id number] [place] [address] Sep, [facility] [place] [facility] [address] [id number] [place] [address] Aug, [facility] [place] [facility] [address] [id number] [place] [address] Aug, [facility] [place] [facility] [address] [id number] [place] [address] Aug, [facility] [place] [facility] [address] [id number] [place] [address] Aug, [facility] [place] [facility] [address] [id number] [place] [address] Aug, [facility] [place] [facility] [address] [id number] [address] Aug, [facility] [place] [facility] [address] [id number] [address] Jul, [facility] [place] [facility] [address] [id number] [place] [address] Jul, [facility] [place] [facility] [address] [id number] [address] Jul, [facility] [place] [facility] [address] [id number] [address] Jul, [facility] [place] [facility] [address] [id number] [place] [address] Jul, [facility] [place] [facility] [address] [id number] [place] [address]- [address] Jul, [facility] [place] [facility] [address] [id number] [place] [address]- [address] Jul, [facility] [place] [facility] [address] [id number] [place] [address] Jul, [facility] [place] [facility] [address] [id number] [place] [address] Jul, [facility] [place] [facility] [address] [id number] [place] [address]- [address] Jul, [facility] [place] [facility] [address] [id number] [place] [address]- [address] Jul, [facility] [place] [facility] [address] [id number] [place] [address] Jun, [facility] [place] [facility] [address] [id number] [place] [address] Jun, [facility] [place] [facility] [address] [id number] [place] [address]- [address] Jun, [facility] [place] [facility] [address] [id number] [place] [address]- [address] Jun, [facility] [place] [facility] [address] [id number] [place] [address]- [address] Apr, [facility] [place] [facility] [address] [id number] [place] [address] Apr, [facility] [place] [facility] [address] [id number] [place] [address] Apr, [facility] [place] [facility] [address] [id number] [place] [address] Apr, [facility] [place] [facility] [address] [id number] [place] [address] Mar, [facility] [facility] [address] [facility] [id number] [address] Mar, [facility] [address] [facility] [place] [place] [id number] [address] Mar, [facility] [address] [facility] [place] [place] [id number] [address] Mar, [facility] [address] [id number] [address] Mar, [facility] [address] [id number] [address] Sep, [facility] [address] [id number] [address] Sep, [facility] [address] [id number] [address] Aug, IMMUNIZATIONS No Known Immunizations SOCIAL HISTORY Never Assessed REASON FOR VISIT Oxycodone - 05/14 PLAN OF CARE VITAL SIGNS MEDICATIONS Medication [...]
--- OUTSIDE RECORDS SUMMARY | 2018-07-12 09:23 | XMS REPORT ---
Author Author OLYA WILLIS Organization [employer] Address Unknown Phone Unavailable Care Team Providers Care Board Certified Orthodontist Name Role Phone OLYA WILLIS CP Unavailable [...]
--- OUTSIDE RECORDS SUMMARY | 2018-07-12 09:23 | XMS REPORT ---
Author Author OLYA WILLIS [facility] [employer] Address Unknown Phone Unavailable Care Team Providers Care Mechanical Oxidizer Name Role Phone OLYA WILLIS Unavailable Allergies [...] Restless legs syndrome [RLS] 333.94 Active Assessment Diabetes mellitus E11.9 Active Problem Hyperkalemia 276.7 Active Problem Gastroparesis 536.3 Active Problem Hypopotassemia 276.8 Active Medications Medication Code System Code Instructions Start Date End Date Status Dosage Levemir FlexTouch [facility] [address]-92 100 unit/mL (3 mL) Aug 03, 2014 10 Units by Subcutaneous route 1 time per day Results No Known Results Summary Purpose [employer] Submission
--- OUTSIDE RECORDS SUMMARY | 2018-07-12 09:24 | XMS REPORT ---
Author Author OLYA WILLIS [facility] [employer] Address Unknown Phone Unavailable Care Team Providers Care Underbaster Name Role Phone OLYA WILLIS Unavailable Allergies [...] Restless legs syndrome [RLS] 333.94 Active Assessment GERD (gastroesophageal reflux disease) K21.9 Active Problem Hyperkalemia 276.7 Active Problem Gastroparesis 536.3 Active Problem Hypopotassemia 276.8 Active Medications Medication Code System Code Instructions Start Date End Date Status Dosage Protonix [facility] [address]-98 40 MG Orally Once a day Nov 06, 2014 1 tablet Results No Known Results Summary Purpose [employer] Submission
--- OUTSIDE RECORDS SUMMARY | 2018-07-12 09:24 | XMS REPORT ---
Author Author OLYA WILLIS Organization [facility] Address [address] [place] [address] Care Team Providers Care Life Enrichment Director Name Role Phone OLYA WILLIS Unavailable PROBLEMS Type Condition ICD9-CM Code [id number] Code Onset Dates Condition Status SNOMED Code Problem Hypertension I10 Active 03959814 Problem Chronic kidney disease N18.9 Active 663933403 Problem Diabetes mellitus E11.9 Active 89187182 Problem Type 2 diabetes mellitus with diabetic autonomic (poly)neuropathy E11.43 Active 677730231 Problem Gastroparesis K31.84 Active 859037259 Problem Diabetic polyneuropathy associated with type 2 diabetes mellitus E11.42 Active 99999883 Problem Paresthesias R20.2 Active 74859246 Problem GERD (gastroesophageal reflux disease) K21.9 Active 478675135 Problem Venous insufficiency I87.2 Active 22685225 ALLERGIES No Information SOCIAL HISTORY Never Assessed PLAN OF CARE VITAL SIGNS MEDICATIONS Medication Instructions Dosage Frequency Start Date End Date Duration Status Oxycodone HCl 5 MG Orally 4 times a day, prn pain 1 tablet Dec, Dec, 28 days Active RESULTS No Results [...]
--- OUTSIDE RECORDS SUMMARY | 2018-07-12 09:24 | XMS REPORT ---
Author Author OLYA WILLIS [facility] Address [address] [place] [address] Care Team Providers Care Notcher Name Role Phone OLYA WILLIS Unavailable PROBLEMS Type Condition ICD9-CM Code [id number] Code Onset Dates Condition Status SNOMED Code Problem Hypertension I10 Active 26964812 Problem Chronic kidney disease N18.9 Active 115171610 Problem Diabetes mellitus E11.9 Active 94095258 Problem Type 2 diabetes mellitus with diabetic autonomic (poly)neuropathy E11.43 Active 025826035 Problem Gastroparesis K31.84 Active 847281115 Problem Diabetic polyneuropathy associated with type 2 diabetes mellitus E11.42 Active 32481981 Problem Paresthesias R20.2 Active 63063914 Problem GERD (gastroesophageal reflux disease) K21.9 Active 114654349 Problem Venous insufficiency I87.2 Active 63998557 ALLERGIES Unknown Allergies SOCIAL HISTORY No smoking Hx information available PLAN OF CARE VITAL SIGNS MEDICATIONS Unknown Medications RESULTS No Results PROCEDURES No Known procedures IMMUNIZATIONS No Known Immunizations
--- OUTSIDE RECORDS SUMMARY | 2018-07-12 09:24 | XMS REPORT ---
Author Author OLYA WILLIS [facility] Address [address] [place] [address] Care Team Providers Care Recycling Crew Supervisor Name Role Phone OLYA WILLIS Unavailable PROBLEMS Type Condition ICD9-CM Code ZYV68-TL Code Onset Dates Condition Status SNOMED Code Problem Chronic kidney disease N18.9 Active 252123392 Problem Diabetic polyneuropathy associated with type 2 diabetes mellitus E11.42 Active 59551116 Problem Paresthesias R20.2 Active 73939673 Problem Hypertension I10 Active 69755203 Problem Diabetes mellitus E11.9 Active 00795253 Problem Chronic osteomyelitis of right foot with draining sinus M86.471 Active [id number] Problem Chronic skin ulcer with fat layer exposed L98.492 Active 90792557 Problem GERD (gastroesophageal reflux disease) K21.9 Active 459455376 Problem Venous insufficiency I87.2 Active 38951520 Problem Type 2 diabetes mellitus with diabetic autonomic (poly)neuropathy E11.43 Active 680893803 Problem Gastroparesis K31.84 Active [id number] ALLERGIES No Information ENCOUNTERS Encounter Location Date Diagnosis [place] [id number] [place] [address] 76690- 0966 Jan, Right ankle pain M25.571 [place] [address] [place] [id number] [place] [address] 03530- 2656 Dec, Right ankle pain M25.571 [facility] [id number] [place] [address] 28725- 8668 Dec, [place] [id number] [place] [address] 33382- 4313 Dec, [facility] [id number] [place] [address] 02705- 7302 Dec, Right ankle pain M25.571 [place] [address] [address] 3592 Dec, Chronic skin ulcer with fat layer exposed L98.492 ; Type 2 diabetes mellitus with diabetic autonomic (poly)neuropathy E11.43 and Hypertension I10 [facility] [id number] [place] [address] 47328- 1540 Nov, [facility] [id number] [place] [address] 78115- 1360 Nov, [facility] [id number] [place] [address] 12189- 5204 Nov, [place] [address] [id number] [place] [address] 75030- 3548 Nov, Right ankle pain M25.571 and Chronic osteomyelitis of right foot with draining sinus M86.471 [place] [id number] [place] [address] 39007- 4916 Oct, Right ankle pain M25.571 [facility] [address] [id number] [place] [address] 46881- 5316 Oct, [facility] [address] [id number] [place] [address] 47559- 1454 Sep, Diabetes mellitus E11.9 [facility] [id number] [place] [address] 72317- 8393 Sep, Diabetic polyneuropathy associated with type 2 diabetes mellitus E11.42 and Venous insufficiency I87.2 [facility] [id number] [place] [address] 70755- 2457 Sep, Right ankle pain M25.571 [facility] [id number] [place] [address] 75379- 1946 Aug, Right ankle pain M25.571 [facility] [id number] [place] [address] 61491- 1030 Aug, Chronic osteomyelitis of right foot with draining sinus M86.471 [facility] [id number] [place] [address] 01041- 1920 Aug, [facility] [id number] [place] [address] 59811- 0369 Aug, [facility] [id number] [place] [address] 79347- 9712 Aug, Chronic osteomyelitis of right foot with draining sinus M86.471 [facility] [id number] [place] [address] 45194- 4580 Jul, [facility] [address] [id number] [place] [address] 06998- 9230 Jul, [facility] [id number] [place] [address] 33850- 2823 Jul, Chronic kidney disease N18.9 [facility] [address] 76502- 5789 Jul, Right ankle pain M25.571 [facility] [address] [id number] [place] [address] 45831- 1627 Jul, Non-healing ulcer of right foot, unspecified ulcer stage L97.519 [facility] [address] [id number] [place] [address] 27704- 3267 Jul, Chronic skin ulcer with fat layer exposed L98.492 [facility] [address] [address] [id number] [place] [address] 11403- 0278 Jul, Deformity of right ankle joint M21.961 [facility] [address] [address] [id number] [place] [address] 46223- 5060 Jun, [facility] [address] [id number] [place] [address] 94249- 1768 Jun, Diabetes mellitus E11.9 ; Skin ulcer of right foot with fat layer exposed L97.512 and Encounter for immunization Z23 [facility] [address] [id number] [place] [address] 36114- 7796 Jun, Right ankle pain M25.571 [facility] [id number] [place] [address] 90265- 0047 May, Right ankle pain M25.571 [facility] [id number] [place] [address] 776650- 6200 Apr, Right ankle pain M25.571 [facility] [address] [id number] [place] [address] 26290- 7406 Mar, Right ankle pain M25.571 [facility] [address] [id number] [place] [address] 07177- 6988 Mar, [facility] [address] [id number] [place] [address] 19696- 2177 February, Diabetes mellitus E11.9 and Diabetic polyneuropathy associated with type 2 diabetes mellitus E11.42 [facility] [address] [place] [id number] [place] [address] 73073- 3866 February, Hyperkalemia E87.5 [facility] [address] [place] [id number] [place] [address] 02593- 9476 February, Right ankle pain M25.571 [facility] [address] [id number] [place] [address] 98551- 6323 Jan, Right ankle pain M25.571 [facility] [address] [place] [id number] [place] [address] 27349- 5818 Dec, Right ankle pain M25.571 [facility] [address] [id number] [place] [address] 00628- 2831 Dec, Right ankle pain M25.571 [facility] [address] [id number] [place] [address] 410600- 6446 Nov, [facility] [address] [id number] [place] [address] 38842- 6433 Nov, Diabetes mellitus E11.9 ; Hypertension I10 ; Gastroparesis K31.84 and Type 2 diabetes mellitus with diabetic autonomic (poly)neuropathy E11.43 [facility] [address] [address] [id number] [place] [address] 62374- 1027 Nov, Right ankle pain M25.571 [facility] [address] [place] [id number] [place] [address] 47827- 9485 Oct, Right ankle pain M25.571 [facility] [address] 72103- 9266 Oct, [place] [address] 18030- 8862 Oct, [place] [address] 26817- 7713 Sep, [place] [address] 25746- 3335 Sep, Hypertension I10 [place] [address] 35587- 8857 Sep, Chronic kidney disease N18.9 ; Right ankle pain M25.571 and GERD (gastroesophageal reflux disease) K21.9 [place] [address] [place] [id number] [place] [address] 29322- 0021 Jul, [place] [address] [place] [id number] [place] [address] 22637- 6474 Jul, Encounter for immunization Z23 ; Venous insufficiency I87.2 and Diabetic polyneuropathy associated with type 2 diabetes mellitus E11.42 [place] [address] [place] [id number] [place] [address] 10353- 9746 Jul, [place] [address] 25902- 6563 Jul, Diabetes mellitus E11.9 [facility] [address] [place] [id number] [place] [address] 52094- 3427 May, [place] [address] 39059- 8489 Apr, [facility] [id number] [place] [address] 32104- 2863 Mar, Right ankle pain M25.571 [facility] [address] [place] [id number] [place] [address] 59884- 8463 Mar, [facility] [address] [place] [id number] [place] [address] 55779- 6007 February, Paresthesias R20.2 [facility] [address] [place] [id number] [place] [address] 54092- 6260 February, [facility] [address] [place] [id number] [place] [address] 08799- 0849 February, 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 [facility] [address] [place] [id number] [place] [address] 65129- 8740 February, Diabetes mellitus E11.9 [facility] [address] [place] [id number] [place] [address] 04730- 9724 February, [facility] [id number] [place] [address] 99575- 1227 February, Polyneuropathy in diabetes 357.2 and Paresthesias R20.2 [facility] [address], [place] [address]- 1622 February, [facility] [address] [id number] [place] [address] 46777- 5464 February, [facility] [address], [place] [address]- 1666 February, [facility] [address] [id number] [place] [address] 05632- 6631 February, Diabetes mellitus E11.9 [facility] [address], [place] [address]- 2942 February, [facility] [address] [id number] [place] [address] 16557- 6812 February, Hyperkalemia E87.5 [facility] [address], [place] [address]- 4119 Jan, Hypertension I10 [facility] [address] [id number] [place] [address] 88846- 2360 Jan, Insomnia G47.00 [facility] [address] [place] [id number] [place] [address] 69526- 2339 Jan, [facility] [address] [place] [id number] [place] [address] 05887- 6900 Jan, [facility] [address] [place] [address] [place] [address] 32523- 8682 Jan, [facility] [address] [place] [id number] [place] [address] 39219- 9428 Dec, Right ankle pain M25.571 [facility] [address] [place] [id number] [place] [address] 99023- 8908 Dec, GERD (gastroesophageal reflux disease) K21.9 [facility] [address] [place] [id number] [place] [address] 27930- 3832 Dec, Insomnia G47.00 [facility] [address] [place] [id number] [place] [address] 97966- 7831 Dec, Hypertension I10 and Hyperkalemia 276.7 [facility] [address] [id number] [place] [address] 50741- 6295 Dec, Chronic kidney disease N18.9 [facility] [id number] [place] [address] 13518- 5610 Dec, [facility] [address] [place] [id number] [place] [address] 70963- 2528 Dec, Hyperkalemia E87.5 [facility] [address] [place] [address] 12771- 2441 Dec, Chronic kidney disease N18.9 and Right ankle pain M25.571 [facility] [address], [place] [address]- 0623 Nov, GERD (gastroesophageal reflux disease) K21.9 [facility] [address] [id number] [place] [address] 81947- 6202 Nov, Right ankle pain M25.571 [facility] [address] [place] [address] 18668- 9341 Nov, Diabetes mellitus E11.9 [facility] [address] [id number] [place] [address] 46570- 2057 Oct, [facility] [address] [id number] [place] [address] 56849- 7460 Oct, [facility] [id number] [place] [address] 82189- 3050 Oct, [facility] [id number] [place] [address] 83996- 7566 Oct, Hyperkalemia E87.5 [facility] [address] [place] [address] 39997- 3205 Oct, [facility] [address] [place] [address] 56724- 2303 Oct, Hyperkalemia E87.5 [facility] [address], [place] [address]- 9427 Sep, [facility] [address], [place] [address]- 8064 Sep, [facility] [address], [place] [address]- 2297 Sep, [facility] [address], [place] [address]- 7614 Sep, [facility] [address], [place] [address]- 8117 Sep, Right ankle pain M25.571 [facility] [address] [place] [address] 19702- 4828 Aug, Chronic kidney disease N18.9 [facility] [id number] [place] [address] 08593- 6484 Aug, [facility] [address] [id number] [place] [address] 30717- 7280 Aug, Hyperkalemia E87.5 [facility] [id number] [place] [address] 67527- 4375 Aug, [facility] [address] [place] [id number] [place] [address] 64525- 3466 Jul, [facility] [id number] [place] [address] 04170- 3886 Jul, [facility] [address] 28002- 3381 Jul, [facility] [address] [place] [id number] [place] [address] 32124- 1526 Jul, Diabetes mellitus E11.9 ; Encounter for immunization Z23 ; Hypertension I10 and Hyperkalemia E87.5 [facility] [address] [id number] [place] [address] 01301- 8822 Jul, [facility] [address] [id number] [place] [address] 72149- 2217 Jul, Hyperkalemia E87.5 [facility] [address] [id number] [place] [address] 43495- 7977 Jul, Hyperkalemia E87.5 [facility] [address] [place] [id number] [place] [address] 60959- 7145 Jun, [facility] [address] [id number] [place] [address] 63031- 2313 Jun, [facility] [address] [id number] [place] [address] 65071- 2001 Jun, [facility] [address] [id number] [place] [address]- 3601 Jun, [facility] [place] [facility] [address] [id number] [place] [address]- 2927 May, [facility] [place] [facility] [address] [id number] [place] [address]- 4457 May, [facility] [place] [facility] [address] [id number] [place] [address]- 0302 May, [facility] [place] [facility] [address] [id number] [place] [address]- 5936 May, Hyperkalemia 276.7 [facility] [place] [facility] [address] [id number] [place] [address]- 5311 May, [facility] [place] [facility] [address] [facility] [id number] [place] [address]- 2165 Apr, Hyperkalemia 276.7 [facility] [place] [facility] [address] [id number] [place] [address]- 3072 Apr, [facility] [place] [facility] [address] [id number] [place] [address]- 4564 Apr, [facility] [place] [facility] [address] [facility] [id number] [place] [address]- 8615 Apr, [facility] [place] [facility] [address] [id number] [place] [address]- 2455 Apr, [facility] [place] [facility] [address] [id number] [place] [address]- 5590 14 Apr, 2015 Hyperkalemia 276.7 [facility] [place] [facility] [address] [id number] [place] [address]- 2221 Apr, [facility] [place] [facility] [address] [facility] [id number] [place] [address]- 6204 Apr, [facility] [place] [facility] [address] [facility] [id number] [place] [address]- 4699 Mar, [facility] [id number] [address]- 3083 Mar, Hyperkalemia 276.7 [facility] [address], [place] [address]- 3910 Mar, Hyperkalemia 276.7 [facility] [address], [place] [address]- 3838 Mar, [facility] [address], [place] [address]- 7542 Mar, [facility] [address], [place] [address]- 3057 Mar, [facility] [address], [place] [address]- 4435 Mar, [facility] [address], [place] [address]- 4172 Mar, Anserine bursitis 726.61 [facility] [address], [place] [address]- 9747 Mar, Asthma 493.90 and Hyperkalemia 276.7 [facility] [address], [place] [address]- 8892 Mar, [facility] [address], [place] [address]- 7483 February, [facility] [address] [place] [address]- 6158 February, [facility] [id number], [place] [address]- 2345 February, [facility] [address], [place] [address]- 4568 February, [facility] [id number], [place] [address]- 2607 February, [facility] [address] [place] [address]- 6106 February, [facility] [place] [facility] [address] [id number] [place] [address]- 3401 February, [facility] [place] [facility] [address] [id number] [place] [address]- 4445 February, [facility] [place] [facility] [address] [id number] [place] [address]- 1317 February, [facility] [place] [facility] [address] [id number] [place] [address]- 1263 Jan, [facility] [place] [facility] [address] [id number] [place] [address]- 8409 Jan, [facility] [place] [facility] [address] [id number] [place] [address]- 5969 Dec, [facility] [place] [facility] [address] [id number] [place] [address]- 5942 Dec, [facility] [place] [facility] [address] [id number] [place] [address]- 0191 Dec, [facility] [place] [facility] [address] [id number] [place] [address]- 6368 Dec, [facility] [place] [facility] [address] [id number] [place] [address]- 1871 Dec, [facility] [place] [facility] [address] [id number] [place] [address]- 5480 Dec, [facility] [place] [facility] [address] [id number] [place] [address]- 9471 Dec, [facility] [place] [facility] [address] [id number] [place] [address]- 3998 Dec, [facility] [place] [facility] [address] [id number] [place] [address]- 9696 Dec, [facility] [place] [facility] [address] [id number] [place] [address]- 1677 Dec, [facility] [place] [facility] [address] [id number] [place] [address]- 8300 Dec, [facility] [place] [facility] [address] [id number] [place] [address]- 5576 Dec, [facility] [place] [facility] [address] [id number] [place] [address]- 9218 Dec, [facility] [place] [facility] [address] [id number] [place] [address]- 4834 Dec, [facility] [place] [facility] [address] [id number] [place] [address]- 2956 Nov, [facility] [place] [facility] [address] [id number] [place] [address]- 9832 Nov, [facility] [place] [facility] [address] [facility] [id number] [place] [address]- 0471 Nov, [facility] [place] [facility] [address] [id number] [place] [address]- 8743 Nov, [facility] [place] [facility] [address] [id number] [place] [address]- 1202 Nov, [facility] [place] [facility] [address] [id number] [place] [address]- 1067 Nov, [facility] [place] [facility] [address] [facility] [id number] [place] [address]- 6406 Oct, [facility] [place] [facility] [address] [id number] [place] [address]- 6323 Oct, [facility] [place] [facility] [address] [id number] [place] [address]- 1344 Oct, [facility] [place] [facility] [address] [id number] [place] [address]- 9873 Oct, [facility] [place] [facility] [address] [id number] [place] [address] Oct, [facility] [place] [facility] [address] [id number], [place] [address] Oct, [facility] [place] [facility] [address] [id number] [place] [address] Sep, [facility] [place] [facility] [address] [id number] [place] [address] Sep, [facility] [place] [facility] [address] [facility] [id number] [place] [address] Sep, [facility] [place] [facility] [address] [id number] [place] [address] Sep, [facility] [place] [facility] [address] [id number] [place] [address] Sep, [facility] [place] [facility] [address] [id number] [place] [address] Sep, [facility] [place] [facility] [address] [facility] [id number] [place] [address] Aug, [facility] [place] [facility] [address] [id number] [place] [address] Aug, [facility] [place] [facility] [address] [facility] [id number] [place] [address] Aug, [facility] [place] [facility] [address] [facility] [id number] [place] [address] Aug, [facility] [place] [facility] [address] [id number], [place] [address] Aug, [facility] [place] [facility] [address] [id number], [place] [address] Aug, [facility] [place] [facility] [address] [id number], [place] [address] Jul, [facility] [place] [facility] [address] [facility] [id number] [place] [address] Jul, [facility] [place] [facility] [address] [facility] [id number], [place] [address] Jul, [facility] [place] [facility] [address] [id number] [place] [address] Jul, 2013 [facility] [place] [facility] [address] [id number] [place] [address] Jul, [facility] [place] [facility] [address] [id number] [place] [address] Jul, [facility] [place] [facility] [address] [id number] [place] [address] Jul, [facility] [place] [facility] [address] [id number] [place] [address] Jul, [facility] [place] [facility] [address] [id number] [place] [address] Jul, [facility] [place] [facility] [address] [id number] [place] [address] Jul, [facility] [place] [facility] [address] [id number] [place] [address] Jul, [facility] [place] [facility] [address] [id number] [place] [address] Jun, [facility] [place] [facility] [address] [id number] [place] [address] Jun, [facility] [place] [facility] [address] [id number] [place] [address] Jun, [facility] [place] [facility] [address] [id number] [place] [address] Jun, [facility] [place] [facility] [address] [id number] [place] [address] Apr, [facility] [place] [facility] [address] [id number] [place] [address] Apr, [facility] [place] [facility] [address] [id number] [place] [id number] Apr, [facility] [place] [facility] [address] [id number] [place] [address] Apr, [facility] [address] [id number], [place] [address] Mar, [facility] [address] [facility] [id number], [place] [address] Mar, [facility] [address] [id number], [place] [address] Mar, [facility] [id number], [place] [address] Mar, [facility] [address] [id number], [place] [address] Mar, [facility] [id number], [place] [address] Sep, [facility] [id number] [address] Sep, [facility] [address] [id number], [place] [address] Aug, IMMUNIZATIONS No Known Immunizations SOCIAL HISTORY Never Assessed REASON FOR VISIT infection PLAN OF CARE VITAL SIGNS MEDICATIONS Unknown [...]
--- OUTSIDE RECORDS SUMMARY | 2018-07-12 09:24 | XMS REPORT ---
Author Author OLYA WILLIS Organization [facility] Address [address] [place] [address] Care Team Providers Care And Drying Supervisor Cooking Casing Name Role Phone OLYA WILLIS Unavailable PROBLEMS Type Condition ICD9-CM Code [id number] Code Onset Dates Condition Status SNOMED Code Problem Chronic kidney disease N18.9 Active 408248649 Problem Diabetic polyneuropathy associated with type 2 diabetes mellitus E11.42 Active 95949617 Problem Paresthesias R20.2 Active 70023032 Problem Hypertension I10 Active 04596254 Problem Diabetes mellitus E11.9 Active 52926051 Problem Chronic osteomyelitis of right foot with draining sinus M86.471 Active 002860069255066 Problem Chronic skin ulcer with fat layer exposed L98.492 Active 24727570 Problem GERD (gastroesophageal reflux disease) K21.9 Active 309307224 Problem Venous insufficiency I87.2 Active 62748645 Problem Type 2 diabetes mellitus with diabetic autonomic (poly)neuropathy E11.43 Active 944363621 Problem Gastroparesis K31.84 Active 441445866 ALLERGIES No Information SOCIAL HISTORY Never Assessed PLAN OF CARE VITAL SIGNS MEDICATIONS Medication Instructions Dosage Frequency Start Date End Date Duration Status Atenolol 50 mg Orally Once a day 1 tablet 24h 30 Active Pantoprazole Sodium 40 mg Orally Once a day 1 tablet 24h 30 days Active Furosemide 40 mg Orally Once a day 2 tablet 24h 30 days Active RESULTS No Results PROCEDURES No [...]
--- OUTSIDE RECORDS SUMMARY | 2018-07-12 09:24 | XMS REPORT ---
Author Author OLYA WILLIS [facility] Address [address] [place] [address] Care Team Providers Care Real Estate Agent/Broker Name Role Phone OLYA WILLIS Unavailable PROBLEMS Type Condition ICD9-CM Code [id number] Code Onset Dates Condition Status SNOMED Code Problem Hypertension I10 Active 44045963 Problem Chronic kidney disease N18.9 Active 134560394 Problem Diabetes mellitus E11.9 Active 00227300 Problem Type 2 diabetes mellitus with diabetic autonomic (poly)neuropathy E11.43 Active 255162661 Problem Gastroparesis K31.84 Active 819622107 Problem Diabetic polyneuropathy associated with type 2 diabetes mellitus E11.42 Active 61136965 Problem Paresthesias R20.2 Active 03034662 Problem GERD (gastroesophageal reflux disease) K21.9 Active 546861772 Problem Venous insufficiency I87.2 Active 71291926 ALLERGIES Unknown Allergies SOCIAL HISTORY No smoking Hx information available PLAN OF CARE VITAL SIGNS MEDICATIONS Medication Instructions Dosage Frequency Start Date End Date Duration Status oxycodone 5 mg oral 4 times a day 1 tablet 6h Dec, Active RESULTS No Results PROCEDURES No Known procedures IMMUNIZATIONS No Known Immunizations
--- OUTSIDE RECORDS SUMMARY | 2018-07-12 09:24 | XMS REPORT ---
Author Author OLYA WILLIS [facility] eClinicalWorks Address Unknown Phone Unavailable Care Team Providers Care Basketball Player Name Role Phone OLYA WILLIS Unavailable Allergies [...] Restless legs syndrome [RLS] 333.94 Active Assessment Insomnia G47.00 Active Problem Hyperkalemia 276.7 Active Problem Gastroparesis 536.3 Active Problem Hypopotassemia 276.8 Active Medications Medication Code System Code Instructions Start Date End Date Status Dosage Trazodone HCl [facility] [address]-70 50 mg Orally Once a day February 20, 2016 1 tablet at bedtime as needed Results No Known Results Summary Purpose eClinicalWorks Submission
--- OUTSIDE RECORDS SUMMARY | 2018-07-12 09:25 | XMS REPORT ---
Author Author OLYA WILLIS [facility] eClinicalWorks Address Unknown Phone Unavailable Care Team Providers Care Dehydrogenation Operator Head Name Role Phone OLYA WILLIS Unavailable Allergies [...] oxycodone NDC 0 5 mg oral 4 times a day January 14, 2015 1 tablet Results No Known Results Summary Purpose eClinicalWorks Submission
--- OUTSIDE RECORDS SUMMARY | 2018-07-12 09:25 | XMS REPORT ---
Author Author OLYA WILLIS Organization [facility] Address [address] [place] [address] Care Team Providers Care Blending Line Attendant Name Role Phone OLYA WILLIS Unavailable PROBLEMS Type Condition ICD9-CM Code [id number] Code Onset Dates Condition Status SNOMED Code Problem Chronic kidney disease N18.9 Active 910208948 Problem Diabetic polyneuropathy associated with type 2 diabetes mellitus E11.42 Active 76019099 Problem Paresthesias R20.2 Active 71874489 Problem Hypertension I10 Active 43896548 Problem Diabetes mellitus E11.9 Active 40086982 Problem Chronic osteomyelitis of right foot with draining sinus M86.471 Active [id number] Problem Chronic skin ulcer with fat layer exposed L98.492 Active 59383090 Problem GERD (gastroesophageal reflux disease) K21.9 Active 779334422 Problem Venous insufficiency I87.2 Active 80455314 Problem Type 2 diabetes mellitus with diabetic autonomic (poly)neuropathy E11.43 Active 155507083 Problem Gastroparesis K31.84 Active 951813642 ALLERGIES No Information ENCOUNTERS Encounter Location Date Diagnosis [facility] [address] [address] Jan, [facility] [id number] [place] [address] 10676- 3866 Dec, Right ankle pain M25.571 [facility] [id number] [address] 3225 Dec, [facility] [id number] [place] [address] 81942- 1113 Dec, [facility] [address] [address] 8943 Dec, Right ankle pain M25.571 [facility] [id number] [place] [address] 7714 Dec, Chronic skin ulcer with fat layer exposed L98.492 ; Type 2 diabetes mellitus with diabetic autonomic (poly)neuropathy E11.43 and Hypertension I10 [facility] [id number] [place] [address] 49690- 5520 Nov, [facility] [id number] [place] [address] 68871- 9125 Nov, [facility] [id number] [place] [address] 05317- 2101 Nov, [place] [id number] [place] [address] 16815- 9486 Nov, Right ankle pain M25.571 and Chronic osteomyelitis of right foot with draining sinus M86.471 [place] [id number] [place] [address] 67815- 1994 Oct, Right ankle pain M25.571 [facility] [id number] [place] [address] 73018- 1678 Oct, [facility] [id number] [place] [address] 28974- 2618 Sep, Diabetes mellitus E11.9 [place] [id number] [place] [address] 27148- 0791 Sep, Diabetic polyneuropathy associated with type 2 diabetes mellitus E11.42 and Venous insufficiency I87.2 [facility] [id number] [place] [address] 00851- 0165 Sep, Right ankle pain M25.571 [place] [id number] [place] [address] 51866- 2679 Aug, Right ankle pain M25.571 [facility] [id number] [place] [address] 48869- 7096 Aug, Chronic osteomyelitis of right foot with draining sinus M86.471 [facility] [id number] [address]- 9900 Aug, [facility] [id number] [place] [address] 74333- 4186 Aug, [facility] [id number] [place] [address] 54535- 7826 Aug, Chronic osteomyelitis of right foot with draining sinus M86.471 [facility] [id number] [place] [address] 08812- 2082 Jul, [facility] [id number] [place] [address] 69515- 2076 Jul, [facility] [id number] [place] [address] 40922- 5072 Jul, Chronic kidney disease N18.9 [facility] [id number] [place] [address] 32069- 3682 Jul, Right ankle pain M25.571 [place] [id number] [place] [address] 93406- 0356 Jul, Non-healing ulcer of right foot, unspecified ulcer stage L97.519 [place] [id number] [place] [address] 13845- 4157 Jul, Chronic skin ulcer with fat layer exposed L98.492 [place] [id number] [place] [address] 86777- 2947 Jul, Deformity of right ankle joint M21.961 [facility] [id number] [place] [address] 81849- 7261 Jun, [facility] [id number] [place] [address] 92541- 8234 Jun, Diabetes mellitus E11.9 ; Skin ulcer of right foot with fat layer exposed L97.512 and Encounter for immunization Z23 [facility] [id number] [place] [address] 52015- 3203 Jun, Right ankle pain M25.571 [facility] [address] [address]- 2711 May, Right ankle pain M25.571 [facility] [id number] [place] [address] 664656- 4820 Apr, Right ankle pain M25.571 [facility] [id number] [place] [address] 85972- 2194 Mar, Right ankle pain M25.571 [facility] [id number] [place] [address] 07398- 4882 Mar, [facility] [id number] [place] [address] 20698- 9068 February, Diabetes mellitus E11.9 and Diabetic polyneuropathy associated with type 2 diabetes mellitus E11.42 [place] [id number] [place] [address] 77313- 6095 February, Hyperkalemia E87.5 [facility] [id number] [place] [address] 78496- 8175 February, Right ankle pain M25.571 [facility] [id number] [place] [address] 61288- 7723 Jan, Right ankle pain M25.571 [facility] [id number] [place] [address] 71247- 0414 Dec, Right ankle pain M25.571 [facility] [id number] [place] [address] 78565- 4406 Dec, Right ankle pain M25.571 [facility] [id number] [place] [address] 630124- 9832 Nov, [facility] [id number] [place] [address] 67426- 5737 Nov, Diabetes mellitus E11.9 ; Hypertension I10 ; Gastroparesis K31.84 and Type 2 diabetes mellitus with diabetic autonomic (poly)neuropathy E11.43 [facility] [id number] [place] [address] 90957- 6505 Nov, Right ankle pain M25.571 [facility] [id number] [place] [address] 98332- 1762 Oct, Right ankle pain M25.571 [facility] [address] 35175- 3113 Oct, [facility] [address] 72721- 7157 Oct, [facility] [address] 82062- 8105 Sep, [facility] [address] 18269- 6224 Sep, Hypertension I10 [facility] [address] 71422- 7657 Sep, Chronic kidney disease N18.9 ; Right ankle pain M25.571 and GERD (gastroesophageal reflux disease) K21.9 [facility] [address] 34139- 1117 Jul, [facility] [id number] [place] [address] 76611- 1034 Jul, Encounter for immunization Z23 ; Venous insufficiency I87.2 and Diabetic polyneuropathy associated with type 2 diabetes mellitus E11.42 [facility] [id number] [place] [address] 64052- 3257 Jul, [facility] [address] 75031- 4438 Jul, Diabetes mellitus E11.9 [facility] [id number] [place] [address] 37285- 4788 May, [facility] [address] 00830- 3087 Apr, [facility] [address] [address]- 3227 Mar, Right ankle pain M25.571 [facility] [id number] [place] [address] 83148- 8128 Mar, [facility] [id number] [place] [address] 13384- 2714 February, Paresthesias R20.2 [facility] [id number] [place] [address] 76672- 1796 February, [facility] [id number] [place] [address] 51664- 3034 February, 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 [facility] [id number] [place] [address] 49667- 3355 February, Diabetes mellitus E11.9 [facility] [id number] [place] [address] 29189- 6829 February, [facility] [id number] [place] [address] 93976- 2241 February, Polyneuropathy in diabetes 357.2 and Paresthesias R20.2 [facility] [id number] [address]- 0203 February, [facility] [id number] [place] [address] 99142- 1010 February, [facility] [id number] [place] [address] 54565- 1951 February, [facility] [id number] [place] [address] 16697- 2666 February, Diabetes mellitus E11.9 [facility] [id number] [place] [address] 79039- 6047 February, [facility] [id number] [place] [address] 22289- 4471 February, Hyperkalemia E87.5 [facility] [address] [address]- 3311 Jan, Hypertension I10 [facility] [id number] [place] [address] 63430 2546 Jan, Insomnia G47.00 [facility] [id number] [place] [address] 93580 2546 Jan, [facility] [id number] [place] [address] 27754- 3740 Jan, [facility] [id number] [place] [address] 21390- 6647 Jan, [facility] [id number] [place] [address] 98991- 9518 Dec, Right ankle pain M25.571 [facility] [address] 35201- 8295 Dec, GERD (gastroesophageal reflux disease) K21.9 [facility] [id number] [place] [address] 79046- 5170 Dec, Insomnia G47.00 [facility] [id number] [place] [address] 07500 2542 Dec, Hypertension I10 and Hyperkalemia 276.7 [facility] [id number] [place] [address] 78123 2545 Dec, Chronic kidney disease N18.9 [facility] [id number] [place] [address] 60879- 5314 Dec, [facility] [id number] [place] [address] 78489 2545 04 Dec, 2015 Hyperkalemia E87.5 [facility] [id number] [place] [address] 41644- 2547 Dec, Chronic kidney disease N18.9 and Right ankle pain M25.571 [facility] [address] [address]- 5496 11 Nov, 2015 GERD (gastroesophageal reflux disease) K21.9 [facility] [id number] [place] [address] 15376- 6257 Nov, Right ankle pain M25.571 [facility] [id number] [place] [address] 88276- 9114 Nov, Diabetes mellitus E11.9 [facility] [id number] [place] [address] 67260- 1378 Oct, [facility] [id number] [place] [address] 47217- 5708 Oct, [facility] [id number] [place] [address] 04273- 0172 Oct, [facility] [id number] [place] [address] 20029- 7563 Oct, Hyperkalemia E87.5 [facility] [address] [address]- 4580 Oct, [facility] [id number] [place] [address] 83670- 8076 Oct, Hyperkalemia E87.5 [facility] [address] [address]- 0400 Sep, [facility] [address] [address]- 3085 Sep, [facility] [address] [address]- 2492 Sep, [facility] [address] [address]- 2043 Sep, [facility] [address] [address]- 8057 Sep, Right ankle pain M25.571 [facility] [id number] [place] [address] 19561- 7260 Aug, Chronic kidney disease N18.9 [facility] [id number] [place] [address] 75296- 3155 Aug, [facility] [id number] [place] [address] 21427- 7250 Aug, Hyperkalemia E87.5 [facility] [id number] [place] [address] 01831- 9623 Aug, [facility] [id number] [place] [address] 73611- 0711 Jul, [facility] [id number] [place] [address] 72565- 6744 Jul, [facility] [id number] [place] [address] 46348- 9411 Jul, [facility] [id number] [place] [address] 26987- 3420 Jul, Diabetes mellitus E11.9 ; Encounter for immunization Z23 ; Hypertension I10 and Hyperkalemia E87.5 [facility] [id number] [place] [address] 23538- 0645 Jul, [facility] [id number] [place] [address] 73553- 6743 Jul, Hyperkalemia E87.5 [facility] [id number] [place] [address] 90595- 2237 Jul, Hyperkalemia E87.5 [facility] [id number] [place] [address] 69381- 3240 Jun, [facility] [id number] [place] [address] 86817- 8554 Jun, [facility] [id number] [place] [address] 68828- 8386 15 Jun, 2015 [facility] [address] [facility] [id number] [place] [address]- 5494 Jun, [facility] [place] [facility] [address] [id number] [place] [address]- 7090 May, [facility] [place] [facility] [address] [id number] [place] [address]- 8113 May, [facility] [place] [facility] [address] [id number] [place] [address]- 6730 May, [facility] [place] [facility] [address] [id number] [place] [address]- 9783 May, Hyperkalemia 276.7 [facility] [place] [facility] [address] [id number] [place] [address]- 9920 May, [facility] [place] [facility] [address] [facility] [id number] [place] [address]- 8289 Apr, Hyperkalemia 276.7 [facility] [place] [facility] [address] [id number] [place] [address]- 0803 Apr, [facility] [place] [facility] [address] [id number] [place] [address]- 2152 Apr, [facility] [place] [facility] [address] [facility] [id number] [place] [address]- 8760 Apr, [facility] [place] [facility] [address] [facility] [id number] [place] [address]- 4542 Apr, [facility] [place] [facility] [address] [id number] [place] [address]- 3039 Apr, Hyperkalemia 276.7 [facility] [place] [facility] [address] [id number] [place] [address]- 7898 Apr, [facility] [place] [facility] [address] [facility] [id number] [place] [address]- 0845 Apr, [facility] [place] [facility] [address] [facility] [id number] [place] [address]- 7091 Mar, [facility] [place] [facility] [address] [address]- 6014 Mar, Hyperkalemia 276.7 [facility] [address] [place] [address]- 6906 Mar, Hyperkalemia 276.7 [facility] [address] [place] [address]- 4548 Mar, [facility] [address] [address]- 1255 Mar, [facility] [address] [place] [address]- 6655 Mar, [facility] [address] [address]- 2658 Mar, [facility] [address] [address]- 7057 Mar, Anserine bursitis 726.61 [facility] [address] [address]- 5619 Mar, Asthma 493.90 and Hyperkalemia 276.7 [facility] [address] [address]- 2700 Mar, [facility] [address] [address]- 1204 February, [facility] [address] [address]- 1928 February, [facility] [id number] [address]- 1718 February, [facility] [address] [place] [address]- 5532 February, [facility] [id number] [address]- 4163 February, [facility] [address] [address]- 4331 February, [facility] [place] [facility] [address] [id number] [place] [address]- 0179 February, [facility] [place] [facility] [address] [id number] [place] [address]- 1084 February, [facility] [place] [facility] [address] [id number] [place] [address]- 8799 February, [facility] [place] [facility] [address] [id number] [place] [address]- 3615 Jan, [facility] [place] [facility] [address] [id number] [place] [address]- 7131 Jan, [facility] [place] [facility] [address] [id number] [place] [address]- 5746 Dec, [facility] [place] [facility] [address] [id number] [place] [address]- 4217 Dec, [facility] [place] [facility] [address] [id number] [place] [address]- 3489 Dec, [facility] [place] [facility] [address] [id number] [place] [address]- 4678 Dec, [facility] [place] [facility] [address] [id number] [place] [address]- 7346 Dec, [facility] [place] [facility] [address] [id number] [place] [address]- 0313 Dec, [facility] [place] [facility] [address] [id number] [place] [address]- 0840 Dec, [facility] [place] [facility] [address] [id number] [place] [address]- 9741 Dec, [facility] [place] [facility] [address] [id number] [place] [address]- 5993 Dec, [facility] [place] [facility] [address] [id number] [place] 1245 Dec, [facility] [place] [facility] [address] [id number] [place] [address]- 4201 Dec, [facility] [place] [facility] [address] [id number] [place] [address]- 1536 Dec, [facility] [place] [facility] [address] [id number] [place] [address]- 5806 Dec, [facility] [place] [facility] [address] [id number] [place] [address]- 0648 Dec, [facility] [place] [facility] [address] [id number] [place] [address]- 6357 Nov, [facility] [place] [facility] [address] [id number] [place] [address] Nov, [facility] [place] [facility] [address] [id number] [place] [address] Nov, [facility] [place] [facility] [address] [id number] [place] [address] Nov, [facility] [place] [facility] [address] [id number] [place] [address] Nov, [facility] [place] [facility] [address] [id number] [place] [address] Nov, [facility] [place] [facility] [address] [id number] [place] [address] Oct, [facility] [place] [facility] [address] [id number] [place] [address] Oct, [facility] [place] [facility] [address] [id number] [place] [address] Oct, [facility] [place] [facility] [address] [id number] [place] [address] Oct, [facility] [place] [facility] [address] [id number] [place] [address] Oct, [facility] [place] [facility] [address] [id number] [place] [address] Oct, [facility] [place] [facility] [address] [id number] [place] [address] Sep, [facility] [place] [facility] [address] [id number] [place] [address] Sep, [facility] [place] [facility] [address] [id number] [place] [address] Sep, [facility] [place] [facility] [address] [id number] [place] [address] Sep, [facility] [place] [facility] [address] [id number] [place] [address] Sep, [facility] [place] [facility] [address] [id number] [place] [address] Sep, [facility] [place] [facility] [address] [id number] [place] [address] Aug, [facility] [place] [facility] [address] [id number] [place] [address] Aug, [facility] [place] [facility] [address] [id number] [place] [address] Aug, [facility] [place] [facility] [address] [id number] [place] [address] Aug, [facility] [place] [facility] [address] [id number] [place] [address] Aug, [facility] [place] [facility] [address] [id number] [place] [address] Aug, [facility] [place] [facility] [address] [id number] [place] [address] Jul, [facility] [place] [facility] [address] [id number] [place] [address] Jul, [facility] [place] [facility] [address] [id number] [place] [address] Jul, [facility] [place] [facility] [address] [id number] [place] [address] Jul, 2013 [facility] [place] [facility] [address] [id number] [place] [address] Jul, [facility] [place] [facility] [address] [id number] [place] [address] Jul, [facility] [place] [facility] [address] [id number] [place] [address] Jul, 2013 [facility] [place] [facility] [address] [id number] [place] [address] Jul, [facility] [place] [facility] [address] [id number] [place] [address] Jul, [facility] [place] [facility] [address] [id number] [place] [address] Jul, [facility] [place] [facility] [address] [id number] [place] [address] Jul, [facility] [place] [facility] [address] [id number] [place] [address] Jun, [facility] [place] [facility] [address] [id number] [place] [address] Jun, [facility] [place] [facility] [address] [id number] [place] [address] Jun, [facility] [place] [facility] [address] [id number] [place] [address] Jun, [facility] [place] [facility] [address] [id number] [place] [address] Apr, [facility] [place] [facility] [address] [id number] [place] [address] Apr, [facility] [place] [facility] [address] [id number] [place] [address] Apr, [facility] [place] [facility] [address] [id number] [place] [address] Apr, [facility] [address] [id number] [place] [address] Mar, [facility] [facility] [address] [id number] [address] Mar, [facility] [address] [id number] [address] Mar, [facility] [id number] [address] Mar, [facility] [id number] [address] Mar, [facility] [id number] [address] Sep, [facility] [id number] [address] Sep, [facility] [address] [id number] [address] Aug, IMMUNIZATIONS No Known Immunizations SOCIAL HISTORY Never Assessed REASON FOR VISIT ankle deformity PLAN OF CARE VITAL SIGNS MEDICATIONS Unknown [...]
--- OUTSIDE RECORDS SUMMARY | 2018-07-12 09:25 | XMS REPORT ---
Author Author OLYA WILLIS [facility] eClinicalWorks Address Unknown Phone Unavailable Care Team Providers Care Supply Chain Technician Name Role Phone OLYA WILLIS Unavailable Allergies [...] Restless legs syndrome [RLS] 333.94 Active Assessment Right ankle pain M25.571 Active Problem Hyperkalemia 276.7 Active Problem Gastroparesis 536.3 Active Problem Hypopotassemia 276.8 Active Medications No Known Medications Procedures Procedure Coding System Code Date RBC SED RATE, AUTOMATED CPT-4 44014 Sep 24, 2015 VENIPUNCT, ROUTINE* CPT-4 26728 Sep 24, 2015 C-REACTIVE PROTEIN CPT-4 53207 Sep 24, 2015 Results No Known Results Summary Purpose eClinicalWorks Submission
--- OUTSIDE RECORDS SUMMARY | 2018-07-12 09:25 | XMS REPORT ---
Author Author OLYA WILLIS Organization [facility] Address [address] [place] [address] Care Team Providers Care Certified Medication Technician Name Role Phone OLYA WILLIS Unavailable PROBLEMS Type Condition ICD9-CM Code [id number] Code Onset Dates Condition Status SNOMED Code Problem Hypertension I10 Active 46263726 Problem Chronic kidney disease N18.9 Active 432198803 Problem Diabetes mellitus E11.9 Active 95423148 Problem Type 2 diabetes mellitus with diabetic autonomic (poly)neuropathy E11.43 Active 485110803 Problem Gastroparesis K31.84 Active 162840772 Problem Diabetic polyneuropathy associated with type 2 diabetes mellitus E11.42 Active 17270757 Problem Paresthesias R20.2 Active 87073988 Problem GERD (gastroesophageal reflux disease) K21.9 Active 379173537 Problem Venous insufficiency I87.2 Active 76632253 ALLERGIES Substance Reaction Event Type Date Status Sulfacetamide Sodium Unknown Drug Allergy Sep, Active Plavix caused bleeding Drug Allergy Sep, Active Neurontin Makes her disoriented Drug Allergy Sep, Active Lyrica Unknown Drug Allergy Sep, Active SOCIAL HISTORY No smoking Hx information available PLAN OF CARE Activity Details Follow Up 4 Weeks Reason: VITAL SIGNS Height 62 in 2016-10-08 Weight 164 lbs 2016-10-08 Temperature 97.8 degrees Fahrenheit 2016-10-08 Heart Rate 72 bpm 2016-10-08 Respiratory Rate 18 2016-10-08 BMI 29.99 kg/m2 2016-10-08 Blood pressure systolic 154 mmHg 2016-10-08 Blood pressure diastolic 62 mmHg 2016-10-08 MEDICATIONS Medication Instructions Dosage Frequency Start Date End Date Duration Status BD Insulin Syringe MicroFine 28G X 1/2 use with insulin 8h Jul, Active Cinnamon 500 MG Active oxycodone 5 mg oral 4 times a day 1 tablet 6h Dec, Active Test strips ... subcutaneously 3 times a day contour EZ Next 8h Jul, Active Vitamin D 2000 UNIT Orally twice a day 1 tablet 12h Active Wheelchair DX Non-healing right ankle fracture Jul, Active Amlodipine Besylate 10 MG TAKE ONE TABLET BY MOUTH ONCE DAILY 30 Active Furosemide 40 mg Orally twice a day 1 tablet 12h Active Amitriptyline HCl 25 MG Orally hs 1-3 tablets PRN 30 Active Senna S 8.6-50 MG Orally twice a day 1 tablet in the evening as needed 12h Active MiraLax 17 gram/dose Orally Once a day take 17 g mixed with 8 oz. water or juice by Oral route 1 time per day 24h Aug, Active Multi Vitamin Daily Orally Once a day 1 tablet 24h Active Kynmrlol-VWJ-4 0.1 MG/24HR Transdermal once weekly 1 patch to skin Sep Active Atenolol 50 MG TAKE ONE TABLET BY MOUTH ONCE DAILY 30 Active Zofran ODT 4 MG Orally every 8 hrs 1 tablet 8h Sep, Active Pantoprazole Sodium 40 MG TAKE ONE TABLET BY MOUTH ONCE DAILY 30 Active Protonix 40 MG Orally Once a day 1 tablet 24h Oct, Active Levemir FlexTouch 100 unit/mL (3 mL) Subcutaneous Once a day 10 Units 24h Jul, Active RESULTS No Results PROCEDURES Procedure Date Ordered Related Diagnosis Body Site Office Visit, Est Pt., Level 2 Oct 08, 2016 IMMUNIZATIONS No Known Immunizations
--- OUTSIDE RECORDS SUMMARY | 2018-07-12 09:26 | XMS REPORT ---
Author Author OLYA WILLIS [facility] eClinicalWorks Address Unknown Phone Unavailable Care Team Providers Care Explosive Ordnance Disposal Technician Name Role Phone OLYA WILLIS Unavailable Allergies No Known Allergies Problems Problem Type Condition Code Onset Dates Condition Status Problem Chronic kidney disease N18.9 Active Problem Diabetes mellitus E11.9 Active Problem Paresthesias R20.2 Active Problem Hypertension I10 Active Assessment Diabetes mellitus E11.9 Active Medications Medication Code System Code Instructions Start Date End Date Status Dosage MiraLax [facility] [address]-79 17 gram/dose Orally Once a day Aug 31, 2014 take 17 g mixed with 8 oz. water or juice by Oral route 1 time per day BD Insulin Syringe MicroFine [facility] [id number] 28G X 1/2" 0.5 ML 3 times a day Jul 28, 2016 use with insulin Test strips [facility] 0 ... subcutaneously 3 times a day Jul 28, 2016 contour EZ Next Results No Known Results Summary Purpose eClinicalWorks Submission
--- OUTSIDE RECORDS SUMMARY | 2018-07-12 09:26 | XMS REPORT ---
Author Author OLYA WILLIS Organization eClinical[employer] Address Unknown Phone Unavailable Care Team Providers Care Asset Protection Lead Name Role Phone OLYA WILLIS CP Unavailable Allergies No Known Allergies Problems Problem Type Condition Code Onset Dates Condition Status Problem Hyperkalemia [...]
--- OUTSIDE RECORDS SUMMARY | 2018-07-12 09:26 | XMS REPORT ---
Author Author OLYA WILLIS [facility] eClinicalWorks Address Unknown Phone Unavailable Care Team Providers Care Mold Presser Name Role Phone OLYA WILLIS CP Unavailable [...]
--- OUTSIDE RECORDS SUMMARY | 2018-07-12 09:26 | XMS REPORT ---
Author Author OLYA WILLIS [facility] Address [address] [place] [address] Care Team Providers Care Furnace Combination Analyst Name Role Phone OLYA WILLIS Unavailable PROBLEMS Type Condition ICD9-CM Code [id number] Code Onset Dates Condition Status SNOMED Code Problem Chronic kidney disease N18.9 Active 412381104 Problem Diabetic polyneuropathy associated with type 2 diabetes mellitus E11.42 Active 24424730 Problem Paresthesias R20.2 Active 23237532 Problem Hypertension I10 Active 26432455 Problem Diabetes mellitus E11.9 Active 86069502 Problem Chronic osteomyelitis of right foot with draining sinus M86.471 Active 901354239859365 Problem Chronic skin ulcer with fat layer exposed L98.492 Active 64913532 Problem GERD (gastroesophageal reflux disease) K21.9 Active 521506764 Problem Venous insufficiency I87.2 Active 87778906 Problem Type 2 diabetes mellitus with diabetic autonomic (poly)neuropathy E11.43 Active 671305696 Problem Gastroparesis K31.84 Active 593469760 ALLERGIES No Information ENCOUNTERS Encounter Location Date Diagnosis [place] [id number] [place] [address] 81852- 9805 Jan, Right ankle pain M25.571 [place] [address] [place] [id number] [place] [address] 57393- 3351 Dec, Right ankle pain M25.571 [facility] [address] [place] [address] [id number] [place] [address] 62535- 5755 Dec, [place] [address] [place] [id number] [place] [address] 11113- 6506 Dec, [facility] [address] [place] [id number] [place] [address] 34147- 4520 Dec, Right ankle pain M25.571 [place] [address] [address] 2049 Dec, Chronic skin ulcer with fat layer exposed L98.492 ; Type 2 diabetes mellitus with diabetic autonomic (poly)neuropathy E11.43 and Hypertension I10 [facility] [id number] [place] [address] 02386- 9433 Nov, [facility] [address] [place] [id number] [place] [address] 33243- 4601 Nov, [facility] [address] [place] [id number] [place] [address] 37653- 4198 Nov, [place] [address] [place] [id number] [place] [address] 69976- 1779 Nov, Right ankle pain M25.571 and Chronic osteomyelitis of right foot with draining sinus M86.471 [place] [address] [place] [id number] [place] [address] 13027- 5087 Oct, Right ankle pain M25.571 [facility] [address] [place] [id number] [place] [address] 61927- 0600 Oct, [facility] [address] [place] [id number] [place] [address] 03273- 9470 Sep, Diabetes mellitus E11.9 [facility] [id number] [place] [address] 81208- 4860 Sep, Diabetic polyneuropathy associated with type 2 diabetes mellitus E11.42 and Venous insufficiency I87.2 [facility] [id number] [place] [address] 99553- 9717 Sep, Right ankle pain M25.571 [facility] [address] [place] [id number] [place] [address] 43872- 4776 Aug, Right ankle pain M25.571 [facility] [id number] [place] [address] 19597- 6796 Aug, Chronic osteomyelitis of right foot with draining sinus M86.471 [facility] [id number] [place] [address] 72577- 2143 Aug, [facility] [address] [place] [id number] [place] [address] 03066- 9790 Aug, [facility] [address] [place] [id number] [place] [address] 61054- 1407 Aug, Chronic osteomyelitis of right foot with draining sinus M86.471 [facility] [address] [place] [id number] [place] [address] 67815- 3977 Jul, [facility] [address] [place] [id number] [place] [address] 66458- 4948 Jul, [facility] [address] [place] [id number] [place] [address] 02934- 7145 Jul, Chronic kidney disease N18.9 [facility] [address] 10405- 7119 Jul, Right ankle pain M25.571 [facility] [address] [place] [id number] [place] [address] 44191- 1185 Jul, Non-healing ulcer of right foot, unspecified ulcer stage L97.519 [facility] [address] [place] [id number] [place] [address] 56893- 3691 Jul, Chronic skin ulcer with fat layer exposed L98.492 [facility] [address] [place] [id number] [place] [address] 55698- 9800 Jul, Deformity of right ankle joint M21.961 [facility] [address] [place] [id number] [place] [address] 86752- 6347 Jun, [facility] [address] [place] [id number] [place] [address] 75757- 4769 Jun, Diabetes mellitus E11.9 ; Skin ulcer of right foot with fat layer exposed L97.512 and Encounter for immunization Z23 [facility] [address] [place] [id number] [place] [address] 57491- 4605 Jun, Right ankle pain M25.571 [facility] [address] [place] [id number] [place] [address] 22228- 7976 May, Right ankle pain M25.571 [facility] [address] [place] [id number] [place] [address] 312433- 8066 Apr, Right ankle pain M25.571 [facility] [address] [place] [id number] [place] [address] 71748- 0274 Mar, Right ankle pain M25.571 [facility] [address] [place] [id number] [place] [address] 82012- 5372 Mar, [facility] [address] [place] [id number] [place] [address] 65432- 9308 February, Diabetes mellitus E11.9 and Diabetic polyneuropathy associated with type 2 diabetes mellitus E11.42 [facility] [address] [place] [id number] [place] [address] 45779- 2040 February, Hyperkalemia E87.5 [facility] [address] [place] [id number] [place] [address] 46048- 7751 February, Right ankle pain M25.571 [facility] [address] [place] [id number] [place] [address] 01485- 9836 Jan, Right ankle pain M25.571 [facility] [address] [place] [id number] [place] [address] 19207- 7685 Dec, Right ankle pain M25.571 [facility] [address] [place] [id number] [place] [address] 08170- 1409 Dec, Right ankle pain M25.571 [facility] [address] [place] [id number] [place] [address] 900538- 4480 Nov, [facility] [address] [place] [id number] [place] [address] 91322- 0502 Nov, Diabetes mellitus E11.9 ; Hypertension I10 ; Gastroparesis K31.84 and Type 2 diabetes mellitus with diabetic autonomic (poly)neuropathy E11.43 [facility] [address] [place] [id number] [place] [address] 51509- 5121 Nov, Right ankle pain M25.571 [facility] [address] [place] [id number] [place] [address] 11007- 4694 Oct, Right ankle pain M25.571 [facility] [address] 21368- 4199 Oct, [place] [address] 52307- 1226 Oct, [place] [address] 27122- 9283 Sep, [place] [address] 14511- 4287 Sep, Hypertension I10 [place] [address] 31651- 5872 Sep, Chronic kidney disease N18.9 ; Right ankle pain M25.571 and GERD (gastroesophageal reflux disease) K21.9 [place] [address] [place] [id number] [place] [address] 02137- 6598 Jul, [place] [address] [place] [id number] [place] [address] 24958- 0744 Jul, Encounter for immunization Z23 ; Venous insufficiency I87.2 and Diabetic polyneuropathy associated with type 2 diabetes mellitus E11.42 [place] [address] [place] [id number] [place] [address] 46866- 4205 Jul, [place] [address] 38327- 8992 Jul, Diabetes mellitus E11.9 [facility] [address] [place] [id number] [place] [address] 10764- 5626 May, [place] [address] 73420- 2685 Apr, [facility] [id number] [place] [address] 78495- 2232 Mar, Right ankle pain M25.571 [facility] [address] [place] [id number] [place] [address] 99744- 6221 Mar, [facility] [address] [place] [id number] [place] [address] 74104- 4043 February, Paresthesias R20.2 [facility] [address] [place] [id number] [place] [address] 30020- 2514 February, [facility] [address] [place] [id number] [place] [address] 43581- 9530 February, 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 [facility] [address] [place] [id number] [place] [address] 48575- 7436 February, Diabetes mellitus E11.9 [facility] [address] [place] [id number] [place] [address] 16899- 3278 February, [facility] [address] [place] [address] 68989- 3419 February, Polyneuropathy in diabetes 357.2 and Paresthesias R20.2 [facility] [address] [address]- 8490 February, [facility] [address] [place] [id number] [place] [address] 22358- 2141 February, [facility] [address] [address]- 2499 February, [facility] [address] [place] [id number] [place] [address] 68929- 6104 February, Diabetes mellitus E11.9 [facility] [address] [address]- 8307 February, [facility] [address] [place] [id number] [place] [address] 75571- 4630 February, Hyperkalemia E87.5 [facility] [address] [address]- 1971 Jan, Hypertension I10 [facility] [address] [place] [id number] [place] [address] 78894- 1548 Jan, Insomnia G47.00 [facility] [address] [place] [id number] [place] [address] 75857- 5198 Jan, [facility] [address] [place] [id number] [place] [address] 13350- 3475 Jan, [facility] [address] [place] [id number] [place] [address] 61281- 1693 Jan, [facility] [address] [place] [id number] [place] [address] 74289- 6281 Dec, Right ankle pain M25.571 [facility] [address] [place] [id number] [place] [address] 88059- 8736 Dec, GERD (gastroesophageal reflux disease) K21.9 [facility] [address] [place] [id number] [place] [address] 69557- 1101 Dec, Insomnia G47.00 [facility] [address] [place] [id number] [place] [address] 91444- 8571 Dec, Hypertension I10 and Hyperkalemia 276.7 [facility] [address] [place] [id number] [place] [address] 45238- 0357 Dec, Chronic kidney disease N18.9 [facility] [id number] [place] [address] 73433- 5265 Dec, [facility] [address] [place] [id number] [place] [address] 11118- 2708 Dec, Hyperkalemia E87.5 [facility] [address] [place] [address] 93185- 8692 Dec, Chronic kidney disease N18.9 and Right ankle pain M25.571 [facility] [address] [address]- 8122 Nov, GERD (gastroesophageal reflux disease) K21.9 [facility] [address] [place] [id number] [place] [address] 64482- 5661 Nov, Right ankle pain M25.571 [facility] [address] [place] [address] 61542- 4677 Nov, Diabetes mellitus E11.9 [facility] [address] [place] [id number] [place] [address] 83567- 7400 Oct, [facility] [address] [place] [id number] [place] [address] 21929- 0446 Oct, [facility] [address] [place] [id number] [place] [address] 62706- 0707 Oct, [facility] [address] [place] [id number] [place] [address] 31115- 8382 Oct, Hyperkalemia E87.5 [facility] [address] [place] [address] 51503- 5966 Oct, [facility] [id number] [place] [address] 63930- 3999 Oct, Hyperkalemia E87.5 [facility] [address] [address]- 6116 Sep, [facility] [address] [address]- 4790 Sep, [facility] [address] [address]- 1225 Sep, [facility] [address] [address]- 9528 Sep, [facility] [address] [address]- 8381 Sep, Right ankle pain M25.571 [facility] [address] [place] [address] 76057- 6220 Aug, Chronic kidney disease N18.9 [facility] [address] [place] [id number] [place] [address] 14370- 0760 Aug, [facility] [address] [place] [id number] [place] [address] 03604- 3497 Aug, Hyperkalemia E87.5 [facility] [address] [place] [id number] [place] [address] 75910- 4598 Aug, [facility] [address] [place] [id number] [place] [address] 32507- 6023 Jul, [facility] [address] [place] [id number] [place] [address] 28380- 4593 Jul, [facility] [address] 32809- 0045 Jul, [facility] [address] [place] [id number] [place] [address] 51389- 5505 Jul, Diabetes mellitus E11.9 ; Encounter for immunization Z23 ; Hypertension I10 and Hyperkalemia E87.5 [facility] [address] [place] [id number] [place] [address] 11140- 8644 Jul, [facility] [address] [place] [id number] [place] [address] 58011- 4834 Jul, Hyperkalemia E87.5 [facility] [address] [id number] [place] [address] 58550- 8216 Jul, Hyperkalemia E87.5 [facility] [address] [id number] [place] [address] 97950- 4837 Jun, [facility] [address] [place] [id number] [place] [address] 72981- 6872 Jun, [facility] [address] [place] [address] [id number] [place] [address] 02947- 8604 Jun, [facility] [address] [id number] [place] [address]- 9361 Jun, [facility] [place] [facility] [address] [id number] [place] [address]- 5850 May, [facility] [place] [facility] [address] [id number] [place] [address]- 0347 May, [facility] [place] [facility] [address] [id number] [place] [address]- 7114 May, [facility] [place] [facility] [address] [id number] [place] [address]- 7646 May, Hyperkalemia 276.7 [facility] [place] [facility] [address] [id number] [place] [address]- 6051 May, [facility] [place] [facility] [address] [facility] [id number] [place] [address]- 2602 Apr, Hyperkalemia 276.7 [facility] [place] [facility] [address] [id number] [place] [address]- 6812 Apr, [facility] [place] [facility] [address] [id number] [place] [address]- 9564 Apr, [facility] [place] [facility] [address] [facility] [id number] [place] [address]- 3598 Apr, [facility] [place] [facility] [address] [id number] [place] [address]- 8215 Apr, [facility] [place] [facility] [address] [id number] [place] [address]- 4300 14 Apr, 2015 Hyperkalemia 276.7 [facility] [place] [facility] [address] [id number] [place] [address]- 9192 Apr, [facility] [place] [facility] [address] [facility] [id number] [place] [address]- 0760 Apr, [facility] [place] [facility] [address] [facility] [id number] [place] [address]- 0697 Mar, [facility] [id number] [address]- 1704 Mar, Hyperkalemia 276.7 [facility] [address] [address]- 9629 Mar, Hyperkalemia 276.7 [facility] [address] [address]- 3151 Mar, [facility] [address] [address]- 6520 Mar, [facility] [address] [address]- 4536 Mar, [facility] [address] [address]- 6549 Mar, [facility] [address] [address]- 6505 Mar, Anserine bursitis 726.61 [facility] [address] [address]- 2915 Mar, Asthma 493.90 and Hyperkalemia 276.7 [facility] [address] [address]- 2367 Mar, [facility] [address] [address]- 8262 February, [facility] [address] [address]- 2867 February, [facility] [id number] [address]- 4679 February, [facility] [address] [address]- 9976 February, [facility] [id number] [address]- 1058 February, [facility] [address] [place] [address]- 2474 February, [facility] [place] [facility] [address] [id number] [place] [address]- 3198 February, [facility] [place] [facility] [address] [id number] [place] [address]- 1949 February, [facility] [place] [facility] [address] [id number] [place] [address]- 2500 February, [facility] [place] [facility] [address] [id number] [place] [address]- 3156 Jan, [facility] [place] [facility] [address] [id number] [place] [address]- 5740 Jan, [facility] [place] [facility] [address] [id number] [place] [address]- 7435 Dec, [facility] [place] [facility] [address] [id number] [place] [address]- 4567 Dec, [facility] [place] [facility] [address] [id number] [place] [address]- 7541 Dec, [facility] [place] [facility] [address] [id number] [place] [address]- 4797 Dec, [facility] [place] [facility] [address] [id number] [place] [address]- 8705 Dec, [facility] [place] [facility] [address] [id number] [place] [address]- 6802 Dec, [facility] [place] [facility] [address] [id number] [place] [address]- 6021 Dec, [facility] [place] [facility] [address] [id number] [place] [address]- 3444 Dec, [facility] [place] [facility] [address] [id number] [place] [address]- 9352 Dec, [facility] [place] [facility] [address] [id number] [place] [address]- 2542 Dec, [facility] [place] [facility] [address] [id number] [place] [address]- 6631 Dec, [facility] [place] [facility] [address] [id number] [place] [address]- 6036 Dec, [facility] [place] [facility] [address] [id number] [place] [address]- 8449 Dec, [facility] [place] [facility] [address] [id number] [place] [address]- 7219 Dec, [facility] [place] [facility] [address] [id number] [place] [address]- 8645 Nov, [facility] [place] [facility] [address] [id number] [place] [address]- 8301 Nov, [facility] [place] [facility] [address] [facility] [id number] [place] [address]- 9905 Nov, [facility] [place] [facility] [address] [id number] [place] [address]- 2660 Nov, [facility] [place] [facility] [address] [id number] [place] [address]- 2474 Nov, [facility] [place] [facility] [address] [id number] [place] [address]- 3250 Nov, [facility] [place] [facility] [address] [facility] [id number] [place] [address]- 3946 Oct, [facility] [place] [facility] [address] [id number] [place] [address]- 1053 Oct, [facility] [place] [facility] [address] [id number] [place] [address]- 5544 Oct, [facility] [place] [facility] [address] [id number] [place] [address]- 8256 Oct, [facility] [place] [facility] [address] [id number] [place] [address]- 2234 Oct, [facility] [place] [facility] [address] [id number], [place] [address]- 9373 Oct, [facility] [place] [facility] [address] [id number] [place] [address]- 7449 Sep, [facility] [place] [facility] [address] [id number] [place] 9630 Sep, [facility] [place] [facility] [address] [facility] [id number] [place] [address] Sep, [facility] [place] [facility] [address] [id number] [place] [address] Sep, [facility] [place] [facility] [address] [id number] [place] [address] Sep, [facility] [place] [facility] [address] [id number] [place] [address] Sep, [facility] [place] [facility] [address] [facility] [id number] [place] [address] Aug, [facility] [place] [facility] [address] [id number] [place] [address] Aug, [facility] [place] [facility] [address] [facility] [id number] [place] [address] Aug, [facility] [place] [facility] [address] [facility] [id number] [place] [address] Aug, [facility] [place] [facility] [address] [id number], [place] [address] Aug, [facility] [place] [facility] [address] [id number], [place] [address] Aug, [facility] [place] [facility] [address] [id number], [place] [address] Jul, [facility] [place] [facility] [address] [facility] [id number] [place] [address] Jul, [facility] [place] [facility] [address] [facility] [id number], [place] [address] Jul, [facility] [place] [facility] [address] [id number] [place] [address] Jul, 2013 [facility] [place] [facility] [address] [id number] [place] [address] Jul, [facility] [place] [facility] [address] [id number] [place] [address] Jul, [facility] [place] [facility] [address] [id number] [place] [address] Jul, [facility] [place] [facility] [address] [id number] [place] [address] Jul, [facility] [place] [facility] [address] [id number] [place] [address] Jul, [facility] [place] [facility] [address] [id number] [place] [address] Jul, [facility] [place] [facility] [address] [id number] [place] [address] Jul, [facility] [place] [facility] [address] [id number] [place] [address] Jun, [facility] [place] [facility] [address] [id number] [place] [address] Jun, [facility] [place] [facility] [address] [id number] [place] [address] Jun, [facility] [place] [facility] [address] [id number] [place] [address] Jun, [facility] [place] [facility] [address] [id number] [place] [address] Apr, [facility] [place] [facility] [address] [id number] [place] [address] Apr, [facility] [place] [facility] [address] [id number] [place] [address] Apr, [facility] [place] [facility] [address] [id number] [place] [address] Apr, [facility] [address] [id number] [address] Mar, [facility] [id number], [place] [address] Mar, [facility] [id number], [place] [address] Mar, [facility] [id number], [place] [address] Mar, [facility] [id number], [place] [address] Mar, [facility] [id number] [address] Sep, [facility] [id number] [address] Sep, [facility] [id number], [place] [address] Aug, IMMUNIZATIONS No Known Immunizations SOCIAL HISTORY [...]
--- OUTSIDE RECORDS SUMMARY | 2018-07-12 09:26 | XMS REPORT ---
Author Author OLYA WILLIS [facility] e[employer] Address Unknown Phone Unavailable Care Team Providers Care Irrigation Installation Specialist Name Role Phone OLYA WILLIS Unavailable Allergies [...]
--- OUTSIDE RECORDS SUMMARY | 2018-07-12 09:26 | XMS REPORT ---
Author Author OLYA WILLIS [facility] Address [address] [place] [address] Care Team Providers Care Dockworker Name Role Phone OLYA WILLIS Unavailable PROBLEMS Type Condition ICD9-CM Code [id number] Code Onset Dates Condition Status SNOMED Code Problem Hypertension I10 Active 71467210 Problem Chronic kidney disease N18.9 Active 960242992 Problem Diabetes mellitus E11.9 Active 37482088 Problem Type 2 diabetes mellitus with diabetic autonomic (poly)neuropathy E11.43 Active 346811744 Problem Gastroparesis K31.84 Active 244667297 Problem Diabetic polyneuropathy associated with type 2 diabetes mellitus E11.42 Active 77586159 Problem Paresthesias R20.2 Active 92377255 Problem GERD (gastroesophageal reflux disease) K21.9 Active 243342520 Problem Venous insufficiency I87.2 Active 28921985 ALLERGIES Unknown Allergies SOCIAL HISTORY No smoking Hx information available PLAN OF CARE VITAL SIGNS MEDICATIONS Medication Instructions Dosage Frequency Start Date End Date Duration Status oxycodone 5 mg oral 4 times a day 1 tablet 6h Dec, Active RESULTS No Results PROCEDURES No Known procedures IMMUNIZATIONS No Known Immunizations
--- OUTSIDE RECORDS SUMMARY | 2018-07-12 09:26 | XMS REPORT ---
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 Active 530126829 Problem Chronic skin ulcer with fat layer exposed L98.492 Active 71849967 Problem Type 2 diabetes mellitus with diabetic autonomic (poly)neuropathy E11.43 Active 949519925 Problem Type 2 diabetes mellitus with foot ulcer E11.621 Active 35661773150141 Problem Chronic osteomyelitis of right foot with draining sinus M86.471 Active 558123475147068 Problem Diabetes mellitus E11.9 Active 95541990 Problem Chronic kidney disease N18.9 Active 121807777 Problem Paresthesias R20.2 Active 44699496 Problem Hypertension I10 Active 16226133 Problem Diabetic polyneuropathy associated with type 2 diabetes mellitus E11.42 Active 29178915 ALLERGIES No Information ENCOUNTERS Encounter Location Date Diagnosis [facility] [address] [facility] [id number] [address] Mar, [facility] [id number] [place] [address] 70220- 1322 Mar, Pressure ulcer of unspecified heel, stage 4 L89.604 and Type 2 diabetes mellitus with foot ulcer E11.621 [facility] [id number] [address] 1573 Mar, Encounter for medication monitoring Z51.81 [facility] [id number] [place] [address] 32660- 8766 Mar, Type 2 diabetes mellitus with foot ulcer E11.621 and Non- pressure chronic ulcer of right heel and midfoot with unspecified severity L97.419 [facility] [id number] [place] [address] 81690- 0528 February, [facility] [address] 16458- 0410 Jan, Right ankle pain M25.571 [facility] [id number] [place] [address] 61288- 1483 Dec, Right ankle pain M25.571 [facility] [facility] [id number] [place] [address] 50461- 6747 Dec, [facility] [address] 81552- 1808 Dec, [facility] [facility] [id number] [place] [address] 48936- 6068 Dec, Right ankle pain M25.571 [facility] [facility] [id number] [place] [address] 75367- 4935 Dec, Chronic skin ulcer with fat layer exposed L98.492 ; Type 2 diabetes mellitus with diabetic autonomic (poly)neuropathy E11.43 and Hypertension I10 [facility] [facility] [id number] [place] [address] 12301- 7867 Nov, [facility] [facility] [id number] [place] [address] 44558- 2843 Nov, [facility] [facility] [id number] [place] [address] 38149- 7861 Nov, [facility] [id number] [place] [address] 08442- 8396 Nov, Right ankle pain M25.571 and Chronic osteomyelitis of right foot with draining sinus M86.471 [facility] [address] [place] [address] 99859- 9425 Oct, Right ankle pain M25.571 [facility] [id number] [place] [address] 00594- 0372 Oct, [facility] [id number] [place] [address] 11407- 4576 Sep, Diabetes mellitus E11.9 [facility] [id number] [place] [address] 38111- 6548 Sep, Diabetic polyneuropathy associated with type 2 diabetes mellitus E11.42 and Venous insufficiency I87.2 [facility] [id number] [place] [address] 18143- 1318 Sep, Right ankle pain M25.571 [facility] [id number] [place] [address] 54191- 1046 Aug, Right ankle pain M25.571 [facility] [id number] [place] [address] 71508- 8744 Aug, Chronic osteomyelitis of right foot with draining sinus M86.471 [facility] [id number] [place] [address] 37469- 5088 Aug, [facility] [address] [place] [address] 64548- 8010 Aug, [facility] [address] [place] [address] 03388- 7496 Aug, Chronic osteomyelitis of right foot with draining sinus M86.471 [facility] [address] [place] [address] 04429- 3716 Jul, [facility] [address] [place] [address] 65202- 7926 Jul, [facility] [address] [place] [address] 16144- 7362 Jul, Chronic kidney disease N18.9 [place] [facility] [id number] [place] [address] 64845- 6328 Jul, Right ankle pain M25.571 [facility] [id number] [place] [address] 40171- 2948 Jul, Non-healing ulcer of right foot, unspecified ulcer stage L97.519 [place] [facility] [address] 76850- 5062 Jul, Chronic skin ulcer with fat layer exposed L98.492 [place] [address] 58261- 7770 Jul, Deformity of right ankle joint M21.961 [place] [id number] [place] [address] 80882- 0618 Jun, [place] [facility] [address] 94021- 8521 Jun, Diabetes mellitus E11.9 ; Skin ulcer of right foot with fat layer exposed L97.512 and Encounter for immunization Z23 [facility] [facility] [address] 34229- 2600 Jun, Right ankle pain M25.571 [facility] [facility] [id number] [place] [address] 48549- 9590 May, Right ankle pain M25.571 [facility] [id number] [place] [address] 65638- 7277 Apr, Right ankle pain M25.571 [facility] [facility] [id number] [place] [address] 27954- 2402 Mar, Right ankle pain M25.571 [place] [id number] [place] [address] 00153- 0160 Mar, [place] [id number] [place] [address] 66476- 4678 February, Diabetes mellitus E11.9 and Diabetic polyneuropathy associated with type 2 diabetes mellitus E11.42 [facility] [id number] [place] [address] 30998- 6309 February, Hyperkalemia E87.5 [facility] [id number] [place] [address] 74747- 2536 February, Right ankle pain M25.571 [facility] [id number] [place] [address] 44495- 8807 Jan, Right ankle pain M25.571 [facility] [id number] [place] [address] 91730- 7647 Dec, Right ankle pain M25.571 [facility] [id number] [place] [address] 98523- 6196 Dec, Right ankle pain M25.571 [facility] [id number] [place] [address] 90432- 4429 Nov, [facility] [id number] [place] [address] 11620- 9579 Nov, Diabetes mellitus E11.9 ; Hypertension I10 ; Gastroparesis K31.84 and Type 2 diabetes mellitus with diabetic autonomic (poly)neuropathy E11.43 [facility] [id number] [place] [address] 05396- 6019 Nov, Right ankle pain M25.571 [facility] [id number] [place] [address] 14053- 7731 Oct, Right ankle pain M25.571 [facility] [id number] [place] [address] 95014- 9499 Oct, [facility] [id number] [place] [address] 76716- 0050 Oct, [facility] [id number] [place] [address] 98323- 7537 Sep, [facility] [id number] [place] [address] 77164- 8996 Sep, Hypertension I10 [facility] [id number] [place] [address] 53444- 5443 Sep, Chronic kidney disease N18.9 ; Right ankle pain M25.571 and GERD (gastroesophageal reflux disease) K21.9 [facility] [address] 50864- 9669 Jul, [facility] [address] 04997- 1452 Jul, Encounter for immunization Z23 ; Venous insufficiency I87.2 and Diabetic polyneuropathy associated with type 2 diabetes mellitus E11.42 [facility] [address] 01081- 2605 Jul, [facility] [address] 98284- 8218 Jul, Diabetes mellitus E11.9 [facility] [address] 07006- 8364 May, [facility] [address] 32647- 2968 Apr, [facility] [address] 62774- 1671 Mar, Right ankle pain M25.571 [facility] [address] 59291- 9151 Mar, [facility] [id number] [place] [address] 81120- 6137 February, Paresthesias R20.2 [facility] [address] 89983- 2387 February, [facility] [address] 48450- 6430 February, 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 [facility] [address] 72314- 2412 February, Diabetes mellitus E11.9 [facility] [id number] [place] [address] 05742- 8003 February, [facility] [id number] [place] [address] 99304- 5239 February, Polyneuropathy in diabetes 357.2 and Paresthesias R20.2 [facility] [address] 16738- 9781 February, [facility] [id number] [place] [address] 00413- 7733 February, [facility] [id number] [place] [address] 20126- 9841 February, [facility] [id number] [place] [address] 25985- 7524 February, Diabetes mellitus E11.9 [facility] [id number] [place] [address] 72226- 4310 February, [facility] [id number] [place] [address] 27393- 8460 February, Hyperkalemia E87.5 [facility] [id number] [place] [address] 74493- 9165 Jan, Hypertension I10 [facility] [id number] [place] [address] 51718- 2532 Jan, Insomnia G47.00 [facility] [id number] [place] [address] 97384- 1132 Jan, [facility] [id number] [place] [address] 29374- 0526 Jan, [facility] [id number] [place] [address] 46451- 2365 Jan, [facility] [id number] [place] [address] 77057- 3905 Dec, Right ankle pain M25.571 [facility] [id number] [place] [address] 91575- 3151 Dec, GERD (gastroesophageal reflux disease) K21.9 [facility] [id number] [place] [address] 85113- 7443 Dec, Insomnia G47.00 [facility] [id number] [place] [address] 18866- 6205 18 Dec, 2015 Hypertension I10 and Hyperkalemia 276.7 [facility] [id number] [place] [address] 76438- 6026 10 Dec, 2015 Chronic kidney disease N18.9 [place] [id number] [place] [address] 87043- 7823 Dec, [place] [id number] [place] [address] 73295- 3731 Dec, Hyperkalemia E87.5 [facility] [id number] [place] [address] 81292- 3698 Dec, Chronic kidney disease N18.9 and Right ankle pain M25.571 [place] [id number] [place] [address] 50612- 8699 11 Nov, 2015 GERD (gastroesophageal reflux disease) K21.9 [facility] [id number] [place] [address] 92741- 2994 Nov, Right ankle pain M25.571 [facility] [id number] [place] [address] 70615- 3251 Nov, Diabetes mellitus E11.9 [facility] [id number] [place] [address] 00574- 9758 Oct, [facility] [id number] [place] [address] 69895- 6882 Oct, [place] [id number] [place] [address] 74501- 8467 Oct, [facility] [address] [place] [address]- 3312 Oct, Hyperkalemia E87.5 [facility] [address] [address]- 7322 Oct, [facility] [address] [place] [address], [place] [address]- 2602 Oct, Hyperkalemia E87.5 [facility] [address] [place] [address], [place] [address]- 6336 Sep, [facility] [id number] [place] [address], [place] [address]- 8186 Sep, [facility] [id number] [place] [address] 87525- 1489 Sep, [facility] [id number] [place] [address] 77374- 3928 Sep, [facility] [address] [place] [address] 90383- 5256 Sep, Right ankle pain M25.571 [facility] [id number] [place] [address] 51587- 9456 Aug, Chronic kidney disease N18.9 [facility] [address] [place] [address] 98536- 2265 Aug, [facility] [address] [place] [address] 83684- 6370 Aug, Hyperkalemia E87.5 [facility] [address] [place] [address] 91839- 7069 Aug, [facility] [address] [address]- 0085 Jul, [facility] [address] [address]- 5796 15 Jul, 2015 [facility] [id number] [address]- 9726 Jul, [facility] [id number] [place] [address] 46152- 5351 Jul, Diabetes mellitus E11.9 ; Encounter for immunization Z23 ; Hypertension I10 and Hyperkalemia E87.5 [facility] [id number] [place] [address] 80088- 6359 Jul, [facility] [id number] [place] [address] 61623- 2809 Jul, Hyperkalemia E87.5 [facility] [id number] [place] [address] 94131- 1668 Jul, Hyperkalemia E87.5 [facility] [address] [place] [address] 20185- 0179 Jun, [facility] [id number] [place] [address] 06254- 4113 Jun, [facility] [address] [place] [address] 95628- 8645 Jun, [facility] [address] [place] [address] 15721- 5850 Jun, [facility] [address] [address]- 7739 May, [facility] [address] [place] [address] 51032- 1924 May, [facility] [id number] [address]- 7201 May, [facility] [id number] [address]- 6197 May, Hyperkalemia 276.7 [facility] [address] [address]- 9733 May, [facility] [id number] [place] [address]- 7326 Apr, Hyperkalemia 276.7 [facility] [place] [facility] [address] [id number] [place] [address] 2546 Apr, 2014 [facility] [place] [facility] [address] [id number] [place] [address] 2546 Apr, 2014 [facility] [place] [facility] [address] [facility] [id number] [place] [address] 2546 Apr, 2014 [facility] [place] [facility] [address] [id number] [place] [address] 2543 Apr, 2014 [facility] [place] [facility] [address] [facility] [id number] [place] [address] 2549 Apr, Hyperkalemia 276.7 [facility] [place] [facility] [address] [facility] [id number] [place] [address] 2546 Apr, 2014 [facility] [place] [facility] [address] [facility] [id number] [place] [address] 2545 Apr, [facility] [place] [facility] [address] [facility] [id number] [place] [address] 2546 Mar, [facility] [place] [facility] [address] [facility] [id number] [place] [address] 2548 Mar, Hyperkalemia 276.7 [facility] [place] [facility] [address] [facility] [id number] [place] [address] 2546 Mar, Hyperkalemia 276.7 [facility] [place] [facility] [address] [facility] [id number] [place] [address] 2546 Mar, [facility] [place] [facility] [address] [id number] [place] [address] 2548 Mar, [facility] [place] [facility] [address] [facility] [id number] [place] [address]- 2546 Mar, [facility] [place] [facility] [address] [facility] [id number] [place] [address]- 2548 Mar, [facility] [place] [facility] [address] [facility] [id number] [place] [address]- 8702 Mar, Anserine bursitis 726.61 [facility] [address] [facility] [id number] [place] [address]- 9582 Mar, Asthma 493.90 and Hyperkalemia 276.7 [facility] [address] [place] [address]- 6697 Mar, [facility] [address] [facility] [id number] [place] [address]- 2247 February, [facility] [address] [facility] [id number] [place] [address]- 0969 February, [facility] [address] [facility] [id number] [place] [address]- 8290 February, [facility] [address] [place] [address]- 6705 February, [facility] [id number] [place] [address]- 5670 February, [facility] [address] 8315 February, [facility] [id number] [place] [address]- 9067 February, [facility] [id number] [place] [address]- 0103 February, [facility] [address] [facility] [id number] [place] [address]- 8346 February, [facility] [id number] [place] [address]- 0121 Jan, [facility] [address] [facility] [id number] [place] [address]- 0375 Jan, [facility] [id number] [place] [address]- 2887 Dec, [facility] [place] [facility] [address] [id number] [place] [address]- 9789 Dec, [facility] [place] [facility] [address] [id number] [place] [address]- 4831 Dec, [facility] [place] [facility] [address] [id number] [place] [address]- 8536 Dec, [facility] [place] [facility] [address] [id number] [place] [address]- 9849 Dec, [facility] [place] [facility] [address] [id number] [place] [address]- 2540 Dec, [facility] [place] [facility] [address] [id number] [place] [address]- 2976 Dec, [facility] [place] [facility] [address] [id number] [place] [address] Dec, [facility] [place] [facility] [address] [id number] [place] [address] Dec, [facility] [place] [facility] [address] [id number] [place] [address] Dec, [facility] [place] [facility] [address] [id number] [place] [address] Dec, [facility] [place] [facility] [address] [id number] [place] [address] Dec, [facility] [place] [facility] [address] [id number] [place] [address] Dec, [facility] [place] [facility] [address] [id number] [place] [address] Dec, [facility] [place] [facility] [address] [id number] [place] [address] Nov, [facility] [place] [facility] [address] [id number] [place] [address] Nov, [facility] [place] [facility] [address] [id number] [place] [address] Nov, [facility] [address] [id number] [place] [address] Nov, [facility] [place] [facility] [address] [id number] [place] [address] Nov, [facility] [place] [facility] [address] [id number] [place] [address] Nov, [facility] [place] [facility] [address] [id number] [place] [address] Oct, [facility] [place] [facility] [address] [id number] [place] [address] Oct, [facility] [place] [facility] [address] [id number] [place] [address] Oct, [facility] [address] [facility] [id number] [place] [address] Oct, [facility] [place] [facility] [address] [id number] [place] [address] Oct, [facility] [place] [facility] [address] [id number] [place] [address] Oct, [facility] [place] [facility] [address] [facility] [id number] [place] [address] Sep, [facility] [place] [facility] [address] [id number] [place] [address] Sep, [facility] [place] [facility] [address] [id number] [address] Sep, [facility] [place] [facility] [address] [id number] [place] [address] Sep, [facility] [place] [facility] [address] [id number] [place] [address] Sep, [facility] [place] [facility] [address] [facility] [id number] [place] [address] [address] Sep, [facility] [place] [facility] [address] [id number] [place] [address] Aug, [facility] [place] [facility] [address] [id number] [place] [address] Aug, [facility] [place] [facility] [address] [id number] [place] [address] Aug, [facility] [place] [facility] [address] [id number] [place] [address] Aug, [facility] [place] [facility] [address] [id number] [place] [address] Aug, [facility] [place] [facility] [address] [id number] [place] [address] Aug, [facility] [place] [facility] [address] [id number] [place] [address] Jul, [facility] [place] [facility] [address] [id number] [place] [address] Jul, [facility] [place] [facility] [address] [id number] [place] [address] Jul, [facility] [place] [facility] [address] [id number] [place] [address] Jul, [facility] [place] [facility] [address] [id number] [place] [address] Jul, [facility] [place] [facility] [address] [id number] [place] [address] Jul, [facility] [place] [facility] [address] [id number] [place] [address] Jul, [facility] [place] [facility] [address] [id number] [place] [address] Jul, [facility] [place] [facility] [address] [id number] [place] Jul, [facility] [place] [facility] [address] [id number] [place] [address] Jul, [facility] [place] [facility] [address] [id number] [place] [address] Jul, [facility] [place] [facility] [address] [id number] [place] [address] Jun, [facility] [place] [facility] [address] [id number] [place] [address] Jun, [facility] [place] [facility] [address] [id number] [place] [address] Jun, [facility] [place] [facility] [address] [id number] [place] [address] Jun, [facility] [place] [facility] [address] [id number] [place] [address] Apr, [facility] [place] [facility] [address] [id number] [place] [address] Apr, [facility] [place] [facility] [address] [id number] [place] [address] Apr, [facility] [place] [facility] [address] [id number] [place] [address] Apr, [facility] [place] [facility] [address] [id number] [place] [address] Mar, [facility] [place] [facility] [address] [id number] [address] Mar, [facility] [place] [facility] [address] [id number] [address] Mar, [facility] [place] [facility] [address] [id number] [place] [address] Mar, [facility] [place] [facility] [address] [id number] [place] [address] Mar, [facility] [place] [facility] [address] [id number] [place] [address] Sep, [facility] [place] [facility] [address] [id number] [place] [address] Sep, [facility] [address] [facility] [id number] [place] [address] Aug, IMMUNIZATIONS No Known Immunizations SOCIAL HISTORY Never Assessed REASON FOR VISIT Refill request PLAN OF CARE VITAL SIGNS MEDICATIONS Medication Instructions Dosage Frequency Start Date End Date Duration Status MiraLax - Orally Once a day take 17 g mixed with 8 oz. water or juice by Oral route 1 time per day 24h Aug, Active RESULTS No Results PROCEDURES No Known [...]
--- OUTSIDE RECORDS SUMMARY | 2018-07-12 09:27 | XMS REPORT ---
Author Author OLYA WILLIS [facility] eClinical[employer] Address Unknown Phone Unavailable Care Team Providers Care Fur Polisher Name Role Phone OLYA WILLIS CP Unavailable [...]
--- OUTSIDE RECORDS SUMMARY | 2018-07-12 09:27 | XMS REPORT ---
Author Author OLYA WILLIS [facility] eClinicalWorks Address Unknown Phone Unavailable Care Team Providers Care Wood Room Hand Name Role Phone OLYA WILLIS CP Unavailable [...] hours January 14, 2015 take 1 tablet Lyrica NDC [address]-18 50 MG Orally Three times a day Jun 17, 2015 1 capsule Results No Known Results Summary Purpose eClinicalWorks Submission
--- OUTSIDE RECORDS SUMMARY | 2018-07-12 09:27 | XMS REPORT ---
Author Author OLYA WILLIS [facility] Address [address] [place] [address] Care Team Providers Care Account Services Analyst Name Role Phone OLYA WILLIS Unavailable PROBLEMS Type Condition ICD9-CM Code ASE07-LR Code Onset Dates Condition Status SNOMED Code Problem Chronic kidney disease N18.9 Active 846489588 Problem Diabetic polyneuropathy associated with type 2 diabetes mellitus E11.42 Active 22550496 Problem Paresthesias R20.2 Active 78199776 Problem Hypertension I10 Active 45163637 Problem Diabetes mellitus E11.9 Active 99271816 Problem Chronic osteomyelitis of right foot with draining sinus M86.471 Active [id number] Problem Chronic skin ulcer with fat layer exposed L98.492 Active 66288038 Problem GERD (gastroesophageal reflux disease) K21.9 Active 960672275 Problem Venous insufficiency I87.2 Active 39555803 Problem Type 2 diabetes mellitus with diabetic autonomic (poly)neuropathy E11.43 Active 811977024 Problem Gastroparesis K31.84 Active 353160780 ALLERGIES No Information ENCOUNTERS Encounter Location Date Diagnosis [place] [id number] [place] [address] 56972- 1839 Jan, Right ankle pain M25.571 [place] [address] [place] [id number] [place] [address] 41526- 7865 Dec, Right ankle pain M25.571 [facility] [address] [place] [id number] [place] [address] 19007- 2142 Dec, [place] [address] [place] [id number] [place] [address] 41050- 3186 Dec, [facility] [address] [place] [id number] [place] [address] 73318- 7519 Dec, Right ankle pain M25.571 [place] [address], [place] [address] 0641 Dec, Chronic skin ulcer with fat layer exposed L98.492 ; Type 2 diabetes mellitus with diabetic autonomic (poly)neuropathy E11.43 and Hypertension I10 [facility] [id number] [place] [address] 58323- 9741 Nov, [facility] [address] [place] [id number] [place] [address] 67775- 8857 Nov, [facility] [address] [place] [id number] [place] [address] 88202- 9842 Nov, [place] [address] [place] [id number] [place] [address] 73089- 4638 Nov, Right ankle pain M25.571 and Chronic osteomyelitis of right foot with draining sinus M86.471 [place] [address] [place] [id number] [place] [address] 01020- 2960 Oct, Right ankle pain M25.571 [facility] [address] [place] [id number] [place] [address] 65941- 9714 Oct, [facility] [address] [place] [id number] [place] [address] 39516- 3481 Sep, Diabetes mellitus E11.9 [facility] [id number] [place] [address] 06655- 5179 Sep, Diabetic polyneuropathy associated with type 2 diabetes mellitus E11.42 and Venous insufficiency I87.2 [facility] [id number] [place] [address] 69922- 8328 Sep, Right ankle pain M25.571 [facility] [address] [place] [id number] [place] [address] 86311- 9896 Aug, Right ankle pain M25.571 [facility] [id number] [place] [address] 97121- 4625 Aug, Chronic osteomyelitis of right foot with draining sinus M86.471 [facility] [id number] [place] [address] 12253- 9683 Aug, [facility] [address] [place] [id number] [place] [address] 98558- 8635 Aug, [facility] [address] [place] [id number] [place] [address] 39759- 6685 Aug, Chronic osteomyelitis of right foot with draining sinus M86.471 [facility] [address] [place] [id number] [place] [address] 25614- 8371 Jul, [facility] [address] [place] [id number] [place] [address] 64171- 0809 Jul, [facility] [address] [place] [id number] [place] [address] 04749- 6015 Jul, Chronic kidney disease N18.9 [facility] [address] 94575- 0110 Jul, Right ankle pain M25.571 [facility] [address] [place] [id number] [place] [address] 63420- 0161 Jul, Non-healing ulcer of right foot, unspecified ulcer stage L97.519 [facility] [address] [place] [id number] [place] [address] 07087- 5976 Jul, Chronic skin ulcer with fat layer exposed L98.492 [facility] [address] [place] [id number] [place] [address] 25340- 8328 Jul, Deformity of right ankle joint M21.961 [facility] [address] [place] [id number] [place] [address] 09714- 3691 Jun, [facility] [address] [place] [id number] [place] [address] 71268- 6527 Jun, Diabetes mellitus E11.9 ; Skin ulcer of right foot with fat layer exposed L97.512 and Encounter for immunization Z23 [facility] [address] [place] [id number] [place] [address] 53317- 7181 Jun, Right ankle pain M25.571 [facility] [address] [place] [id number] [place] [address] 69234- 0734 May, Right ankle pain M25.571 [facility] [address] [place] [id number] [place] [address] 061905- 7554 Apr, Right ankle pain M25.571 [facility] [address] [place] [id number] [place] [address] 46615- 5474 Mar, Right ankle pain M25.571 [facility] [address] [place] [id number] [place] [address] 58903- 6343 Mar, [facility] [address] [place] [id number] [place] [address] 72765- 8593 February, Diabetes mellitus E11.9 and Diabetic polyneuropathy associated with type 2 diabetes mellitus E11.42 [facility] [address] [place] [id number] [place] [address] 70682- 5954 February, Hyperkalemia E87.5 [facility] [address] [place] [id number] [place] [address] 93127- 6226 February, Right ankle pain M25.571 [facility] [address] [place] [id number] [place] [address] 36315- 2062 Jan, Right ankle pain M25.571 [facility] [address] [place] [id number] [place] [address] 03879- 6879 Dec, Right ankle pain M25.571 [facility] [address] [place] [id number] [place] [address] 70680- 9826 Dec, Right ankle pain M25.571 [facility] [address] [place] [id number] [place] [address] 825141- 9657 Nov, [facility] [address] [place] [id number] [place] [address] 07041- 0651 Nov, Diabetes mellitus E11.9 ; Hypertension I10 ; Gastroparesis K31.84 and Type 2 diabetes mellitus with diabetic autonomic (poly)neuropathy E11.43 [facility] [address] [place] [id number] [place] [address] 40577- 5001 Nov, Right ankle pain M25.571 [facility] [address] [place] [id number] [place] [address] 16001- 5863 Oct, Right ankle pain M25.571 [facility] [address] 43168- 6432 Oct, [place] [address] 97861- 3851 Oct, [place] [address] 13171- 4105 Sep, [place] [address] 02585- 5561 Sep, Hypertension I10 [place] [address] 01697- 9890 Sep, Chronic kidney disease N18.9 ; Right ankle pain M25.571 and GERD (gastroesophageal reflux disease) K21.9 [place] [address] [place] [id number] [place] [address] 85163- 4405 Jul, [place] [address] [place] [id number] [place] [address] 66802- 0584 Jul, Encounter for immunization Z23 ; Venous insufficiency I87.2 and Diabetic polyneuropathy associated with type 2 diabetes mellitus E11.42 [place] [address] [place] [id number] [place] [address] 61668- 6668 Jul, [place] [address] 26939- 8924 Jul, Diabetes mellitus E11.9 [facility] [address] [place] [id number] [place] [address] 96416- 6623 May, [place] [address] 39556- 2741 Apr, [facility] [id number] [place] [address] 99980- 4470 Mar, Right ankle pain M25.571 [facility] [address] [place] [id number] [place] [address] 05787- 0641 Mar, [facility] [address] [place] [id number] [place] [address] 92096- 5501 February, Paresthesias R20.2 [facility] [address] [place] [id number] [place] [address] 33511- 4461 February, [facility] [address] [place] [id number] [place] [address] 43454- 8246 February, 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 [facility] [address] [place] [id number] [place] [address] 87546- 5690 February, Diabetes mellitus E11.9 [facility] [address] [place] [id number] [place] [address] 25720- 9782 February, [facility] [id number] [place] [address] 70865- 7464 February, Polyneuropathy in diabetes 357.2 and Paresthesias R20.2 [facility] [address], [place] [address]- 6863 February, [facility] [address] [place] [id number] [place] [address] 25365- 8630 February, [facility] [address], [place] [address]- 0954 February, [facility] [address] [place] [id number] [place] [address] 40320- 5211 February, Diabetes mellitus E11.9 [facility] [address], [place] [address]- 4953 February, [facility] [address] [place] [id number] [place] [address] 78659- 3414 February, Hyperkalemia E87.5 [facility] [address], [place] [address]- 7639 Jan, Hypertension I10 [facility] [address] [place] [id number] [place] [address] 75364- 8251 Jan, Insomnia G47.00 [facility] [address] [place] [id number] [place] [address] 85986- 3710 Jan, [facility] [address] [place] [id number] [place] [address] 66370- 7536 Jan, [facility] [address] [place] [id number] [place] [address] 08011- 2586 Jan, [facility] [address] [place] [id number] [place] [address] 77163- 4743 Dec, Right ankle pain M25.571 [facility] [address] [place] [id number] [place] [address] 29470- 8990 Dec, GERD (gastroesophageal reflux disease) K21.9 [facility] [address] [place] [id number] [place] [address] 28854- 2411 Dec, Insomnia G47.00 [facility] [address] [place] [id number] [place] [address] 05442- 9798 Dec, Hypertension I10 and Hyperkalemia 276.7 [facility] [address] [place] [id number] [place] [address] 56278- 1935 Dec, Chronic kidney disease N18.9 [facility] [id number] [place] [address] 83429- 4977 Dec, [facility] [address] [place] [id number] [place] [address] 57603- 4471 Dec, Hyperkalemia E87.5 [facility] [id number] [place] [address] 11933- 9001 Dec, Chronic kidney disease N18.9 and Right ankle pain M25.571 [facility] [address], [place] [address]- 9224 Nov, GERD (gastroesophageal reflux disease) K21.9 [facility] [address] [place] [id number] [place] [address] 37231- 9174 Nov, Right ankle pain M25.571 [facility] [id number] [place] [address] 76489- 8281 Nov, Diabetes mellitus E11.9 [facility] [address] [place] [id number] [place] [address] 63630- 8201 Oct, [facility] [address] [place] [id number] [place] [address] 96958- 0690 Oct, [facility] [address] [place] [id number] [place] [address] 95948- 6639 Oct, [facility] [address] [place] [id number] [place] [address] 41447- 2156 Oct, Hyperkalemia E87.5 [facility] [id number] [place] [address] 07034- 9792 Oct, [facility] [id number] [place] [address] 66061- 6711 Oct, Hyperkalemia E87.5 [facility] [address], [place] [address]- 8523 Sep, [facility] [address], [place] [address]- 4232 Sep, [facility] [address], [place] [address]- 9706 Sep, [facility] [address], [place] [address]- 9985 Sep, [facility] [address], [place] [address]- 5691 Sep, Right ankle pain M25.571 [facility] [id number] [place] [address] 20028- 7524 Aug, Chronic kidney disease N18.9 [facility] [address] [place] [id number] [place] [address] 73041- 9885 Aug, [facility] [address] [place] [id number] [place] [address] 32013- 1979 Aug, Hyperkalemia E87.5 [facility] [address] [place] [id number] [place] [address] 58202- 1831 Aug, [facility] [address] [place] [id number] [place] [address] 94938- 5095 Jul, [facility] [address] [place] [id number] [place] [address] 56122- 3888 Jul, [facility] [address] 54072- 1339 Jul, [facility] [address] [place] [id number] [place] [address] 31021- 3237 Jul, Diabetes mellitus E11.9 ; Encounter for immunization Z23 ; Hypertension I10 and Hyperkalemia E87.5 [facility] [address] [place] [id number] [place] [address] 16081- 2751 Jul, [facility] [address] [place] [id number] [place] [address] 28367- 0494 Jul, Hyperkalemia E87.5 [facility] [address] [place] [id number] [place] [address] 59569- 5047 Jul, Hyperkalemia E87.5 [facility] [address] [place] [id number] [place] [address] 41220- 6132 Jun, [facility] [address] [place] [id number] [place] [address] 26238- 9473 Jun, [facility] [address] [place] [id number] [place] [address] 80664- 6274 Jun, [facility] [address] [id number] [place] [address]- 0962 Jun, [facility] [place] [facility] [address] [id number] [place] [address]- 6882 May, [facility] [place] [facility] [address] [id number] [place] [address]- 9548 May, [facility] [place] [facility] [address] [id number] [place] [address]- 2459 May, [facility] [place] [facility] [address] [id number] [place] [address]- 4826 May, Hyperkalemia 276.7 [facility] [place] [facility] [address] [id number] [place] [address]- 4931 May, [facility] [place] [facility] [address] [facility] [id number] [place] [address]- 6120 Apr, Hyperkalemia 276.7 [facility] [place] [facility] [address] [id number] [place] [address]- 4392 Apr, [facility] [place] [facility] [address] [id number] [place] [address]- 1447 Apr, [facility] [place] [facility] [address] [facility] [id number] [place] [address]- 1472 Apr, [facility] [place] [facility] [address] [id number] [place] [address]- 7858 Apr, [facility] [place] [facility] [address] [id number] [place] [address]- 2804 14 Apr, 2015 Hyperkalemia 276.7 [facility] [place] [facility] [address] [id number] [place] [address]- 6828 Apr, [facility] [place] [facility] [address] [facility] [id number] [place] [address]- 2704 Apr, [facility] [place] [facility] [address] [facility] [id number] [place] [address]- 5268 Mar, [facility] [address] [place] [id number] [address]- 3628 Mar, Hyperkalemia 276.7 [facility] [address], [place] [address]- 0098 Mar, Hyperkalemia 276.7 [facility] [address], [place] [address]- 1670 Mar, [facility] [address], [place] [address]- 1475 Mar, [facility] [address], [place] [address]- 8678 Mar, [facility] [address], [place] [address]- 3866 Mar, [facility] [address], [place] [address]- 9545 Mar, Anserine bursitis 726.61 [facility] [address], [place] [address]- 9521 Mar, Asthma 493.90 and Hyperkalemia 276.7 [facility] [address], [place] [address]- 2370 Mar, [facility] [address], [place] [address]- 1757 February, [facility] [address], [place] [address]- 9237 February, [facility] [id number] [address]- 4518 February, [facility] [address], [place] [address]- 8312 February, [facility] [id number] [address]- 5955 February, [facility] [address] [place] [address]- 3720 February, [facility] [place] [facility] [address] [id number] [place] [address]- 3272 February, [facility] [place] [facility] [address] [id number] [place] [address]- 9451 February, [facility] [place] [facility] [address] [id number] [place] [address]- 6018 February, [facility] [place] [facility] [address] [id number] [place] [address]- 6063 Jan, [facility] [place] [facility] [address] [id number] [place] [address]- 6354 Jan, [facility] [place] [facility] [address] [id number] [place] [address]- 5001 Dec, [facility] [place] [facility] [address] [id number] [place] [address]- 0709 Dec, [facility] [place] [facility] [address] [id number] [place] [address]- 8278 Dec, [facility] [place] [facility] [address] [id number] [place] [address]- 5042 Dec, [facility] [place] [facility] [address] [id number] [place] [address]- 1283 Dec, [facility] [place] [facility] [address] [id number] [place] [address]- 7506 Dec, [facility] [place] [facility] [address] [id number] [place] [address]- 3562 Dec, [facility] [place] [facility] [address] [id number] [place] [address]- 2213 Dec, [facility] [place] [facility] [address] [id number] [place] [address]- 4794 Dec, [facility] [place] [facility] [address] [id number] [place] [address]- 7257 Dec, [facility] [place] [facility] [address] [id number] [place] [address]- 0664 Dec, [facility] [place] [facility] [address] [id number] [place] [address]- 4486 Dec, [facility] [place] [facility] [address] [id number] [place] [address]- 7600 Dec, [facility] [place] [facility] [address] [id number] [place] [address]- 2269 Dec, [facility] [place] [facility] [address] [id number] [place] [address]- 5639 Nov, [facility] [place] [facility] [address] [id number] [place] [address]- 5254 Nov, [facility] [place] [facility] [address] [facility] [id number] [place] [address]- 2511 Nov, [facility] [place] [facility] [address] [id number] [place] [address]- 4959 Nov, [facility] [place] [facility] [address] [id number] [place] [address]- 6976 Nov, [facility] [place] [facility] [address] [id number] [place] [address] Nov, [facility] [place] [facility] [address] [facility] [id number] [place] [address] Oct, [facility] [place] [facility] [address] [id number] [place] [address] Oct, [facility] [place] [facility] [address] [id number] [place] [address] Oct, [facility] [place] [facility] [address] [id number] [place] [address] Oct, [facility] [place] [facility] [address] [id number] [place] [address] Oct, [facility] [place] [facility] [address] [id number], [place] [address] Oct, [facility] [place] [facility] [address] [id number] [place] [address] Sep, [facility] [place] [facility] [address] [id number] [place] [address] Sep, [facility] [place] [facility] [address] [facility] [id number] [place] [address] Sep, [facility] [place] [facility] [address] [id number] [place] [address] Sep, [facility] [place] [facility] [address] [id number] [place] [address] Sep, [facility] [place] [facility] [address] [id number] [place] [address] Sep, [facility] [place] [facility] [address] [facility] [id number] [place] [address] Aug, [facility] [place] [facility] [address] [id number] [place] [address] Aug, [facility] [place] [facility] [address] [facility] [id number] [place] [address] Aug, [facility] [place] [facility] [address] [facility] [id number] [place] [address] Aug, [facility] [place] [facility] [address] [id number], [place] [address] Aug, [facility] [place] [facility] [address] [id number], [place] [address] Aug, [facility] [place] [facility] [address] [id number], [place] [address] Jul, [facility] [place] [facility] [address] [facility] [id number] [place] [address] Jul, [facility] [place] [facility] [address] [facility] [id number], [place] [address] Jul, [facility] [place] [facility] [address] [id number] [place] [address] Jul, 2013 [facility] [place] [facility] [address] [id number] [place] [address] Jul, [facility] [place] [facility] [address] [id number] [place] [address] Jul, [facility] [place] [facility] [address] [id number] [place] [address] Jul, [facility] [place] [facility] [address] [id number] [place] [address] Jul, [facility] [place] [facility] [address] [id number] [place] [address] Jul, [facility] [place] [facility] [address] [id number] [place] [address] Jul, [facility] [place] [facility] [address] [id number] [place] [address] Jul, [facility] [place] [facility] [address] [id number] [place] [address] Jun, [facility] [place] [facility] [address] [id number] [place] [address] Jun, [facility] [place] [facility] [address] [id number] [place] [address] Jun, [facility] [place] [facility] [address] [id number] [place] [address] Jun, [facility] [place] [facility] [address] [id number] [place] [address] Apr, [facility] [place] [facility] [address] [id number] [place] [address] Apr, [facility] [place] [facility] [address] [id number] [place] [address] Apr, [facility] [place] [facility] [address] [id number] [place] [address] Apr, [facility] [address] [id number], [place] [address] Mar, [facility] [address] [id number] [address] Mar, [facility] [address] [id number], [place] [address] Mar, [facility] [id number] [address] Mar, [facility] [address] [id number], [place] [address] Mar, [facility] [id number] [address] Sep, [facility] [id number] [address] Sep, [facility] [address] [id number], [place] [address] Aug, IMMUNIZATIONS No Known Immunizations SOCIAL HISTORY [...]
--- OUTSIDE RECORDS SUMMARY | 2018-07-12 09:28 | XMS REPORT ---
Author Author OLYA WILLIS [facility] eClinicalWorks Address Unknown Phone Unavailable Care Team Providers Care Residential Appraiser Name Role Phone OLYA WILLIS CP Unavailable [...] Instructions Start Date End Date [facility] [id number] 5 MG Orally Once a day January 14, 2015 1 tablet by Oral route 1 time per day PRN Results No Known Results Summary Purpose eClinicalWorks Submission
--- OUTSIDE RECORDS SUMMARY | 2018-07-12 09:28 | XMS REPORT ---
Author Author OLYA WILLIS [facility] eClinicalWorks Address Unknown Phone Unavailable Care Team Providers Care Insurance Writer Name Role Phone OLYA WILLIS CP Unavailable [...] Problem Essential hypertension, benign 401.1 Active Assessment Hyperkalemia E87.5 Active Problem Hyperkalemia 276.7 Active Problem Gastroparesis 536.3 Active Medications No Known Medications Procedures Procedure Coding System Code Date VENIPUNCT, ROUTINE* CPT-4 78127 Sep 12, 2015 BASIC METABOLIC PANEL CPT-4 15182 Sep 12, 2015 Results Name Result Date Reference Range Unit Abnormality Flag ROUTINE VENIPUNCTURE Summary Purpose eClinicalWorks Submission
--- OUTSIDE RECORDS SUMMARY | 2018-07-12 09:28 | XMS REPORT ---
Author Author OLYA WILLIS [facility] eClinicalWorks Address Unknown Phone Unavailable Care Team Providers Care Collection Card Clerk Name Role Phone OLYA WILLIS CP Unavailable [...]
--- OUTSIDE RECORDS SUMMARY | 2018-07-12 09:28 | XMS REPORT ---
Author Author OLYA WILLIS Organization eClinicalWorks Address Unknown Phone Unavailable Care Team Providers Care Cook Chef Name Role Phone OLYA WILLIS CP Unavailable Allergies No Known Allergies Problems Problem Type Condition Code Onset Dates Condition Status Problem Paresthesias R20.2 Active Problem Chronic kidney disease N18.9 Active Problem Polyneuropathy in diabetes 357.2 Active Problem Diabetes mellitus E11.9 Active Problem Hypertension I10 Active Medications Medication Code System Code Instructions Start Date End Date Status Dosage oxycodone NDC 0 5 mg oral 4 times a day January 14, 2015 1 tablet Results No Known Results Summary Purpose eClinicalWorks Submission
--- OUTSIDE RECORDS SUMMARY | 2018-07-12 09:28 | XMS REPORT ---
Author Author OLYA WILLIS [facility] eClinicalWorks Address Unknown Phone Unavailable Care Team Providers Care Virtual Reality Specialist Name Role Phone OLYA WILLIS CP Unavailable [...] Restless legs syndrome [RLS] 333.94 Active Assessment Chronic kidney disease N18.9 Active Problem Hyperkalemia 276.7 Active Problem Gastroparesis 536.3 Active Problem Hypopotassemia 276.8 Active Medications No Known Medications Results No Known Results Summary Purpose eClinicalWorks Submission
--- OUTSIDE RECORDS SUMMARY | 2018-07-12 09:28 | XMS REPORT ---
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 Active 283820863 Problem Chronic skin ulcer with fat layer exposed L98.492 Active 18024185 Problem Type 2 diabetes mellitus with diabetic autonomic (poly)neuropathy E11.43 Active 318267990 Problem Type 2 diabetes mellitus with foot ulcer E11.621 Active 92720693754046 Problem Chronic osteomyelitis of right foot with draining sinus M86.471 Active [id number] Problem Diabetes mellitus E11.9 Active 03138214 Problem Chronic kidney disease N18.9 Active 280151031 Problem Paresthesias R20.2 Active 80422315 Problem Hypertension I10 Active 04757431 Problem Diabetic polyneuropathy associated with type 2 diabetes mellitus E11.42 Active 38515080 ALLERGIES Substance Reaction Event Type Date Status Sulfacetamide Sodium Unknown Drug Allergy Sep, Active Plavix caused bleeding Drug Allergy Sep, Active Neurontin Makes her disoriented Drug Allergy Sep, Active Lyrica dizziness Drug Allergy Sep, Active ENCOUNTERS Encounter Location Date Diagnosis [facility] [address] [facility] [id number] [address] Mar, [facility] [address] [facility] [id number] [address] Mar, Pressure ulcer of unspecified heel, stage 4 L89.604 and Type 2 diabetes mellitus with foot ulcer E11.621 [facility] [address] [place] [id number] [place] [address] 25221- 5422 Mar, Encounter for medication monitoring Z51.81 [facility] [address] [address]- [address] Mar, Type 2 diabetes mellitus with foot ulcer E11.621 and Non- pressure chronic ulcer of right heel and midfoot with unspecified severity L97.419 [place] [address] [address]- [address] February, [place] [address] [address]24- 1801 Jan, Right ankle pain M25.571 [place] [address] 06921- 7318 Dec, Right ankle pain M25.571 [place] [address] 03971- 7359 Dec, [facility] [id number] [place] [address] 98016- 1823 Dec, [place] [address] 82084- 8058 Dec, Right ankle pain M25.571 [place] [address] [address] [id number] [place] [address] 71549- 8187 Dec, Chronic skin ulcer with fat layer exposed L98.492 ; Type 2 diabetes mellitus with diabetic autonomic (poly)neuropathy E11.43 and Hypertension I10 [place] [address] [id number] [place] [address] 21767- 2408 Nov, [place] [address] 31345- 8307 Nov, [facility] [id number] [place] [address] 63848- 9730 Nov, [place] [address] [place] [address] 66714- 9507 Nov, Right ankle pain M25.571 and Chronic osteomyelitis of right foot with draining sinus M86.471 [facility] [address] [place] [address] 58359- 0718 Oct, Right ankle pain M25.571 [facility] [id number] [place] [address] 79605- 0914 Oct, [facility] [id number] [place] [address] 28080- 1210 Sep, Diabetes mellitus E11.9 [place] [address] [id number] [place] [address] 60380- 9581 Sep, Diabetic polyneuropathy associated with type 2 diabetes mellitus E11.42 and Venous insufficiency I87.2 [facility] [id number] [place] [address] 47665- 2689 Sep, Right ankle pain M25.571 [facility] [id number] [place] [address] 15785- 0581 Aug, Right ankle pain M25.571 [facility] [id number] [place] [address] 45920- 7530 Aug, Chronic osteomyelitis of right foot with draining sinus M86.471 [facility] [id number] [place] [address] 31307- 3626 Aug, [facility] [id number] [place] [address] 79600- 5474 Aug, [facility] [id number] [place] [address] 64132- 5818 Aug, Chronic osteomyelitis of right foot with draining sinus M86.471 [facility] [address] [place] [address] 67302- 1113 Jul, [facility] [id number] [place] [address] 51509- 1470 Jul, [place] [address] [address] [id number] [place] [address] 20670- 6961 Jul, Chronic kidney disease N18.9 [place] [address] 64592- 7132 Jul, Right ankle pain M25.571 [place] [address] 62131- 5914 Jul, Non-healing ulcer of right foot, unspecified ulcer stage L97.519 [place] [address] 92707- 1013 Jul, Chronic skin ulcer with fat layer exposed L98.492 [place] [address] 26145- 0611 Jul, Deformity of right ankle joint M21.961 [place] [address] 58734- 1286 Jun, [place] [address] 03568- 5052 Jun, Diabetes mellitus E11.9 ; Skin ulcer of right foot with fat layer exposed L97.512 and Encounter for immunization Z23 [place] [address] [place] [id number] [place] [address] 75723- 9635 Jun, Right ankle pain M25.571 [place] [address] 73122- 2685 May, Right ankle pain M25.571 [place] [address] 15724- 6738 Apr, Right ankle pain M25.571 [place] [address] 50146- 4107 Mar, Right ankle pain M25.571 [place] [address] 54160- 2453 Mar, [facility] [id number] [place] [address] 34090- 3531 February, Diabetes mellitus E11.9 and Diabetic polyneuropathy associated with type 2 diabetes mellitus E11.42 [facility] [id number] [place] [address] 75631- 3058 February, Hyperkalemia E87.5 [facility] [address] 62164- 0882 February, Right ankle pain M25.571 [facility] [address] [id number] [place] [address] 62107- 6847 Jan, Right ankle pain M25.571 [facility] [address] [id number] [place] [address] 54215- 9180 Dec, Right ankle pain M25.571 [facility] [address] [id number] [place] [address] 14714- 5265 Dec, Right ankle pain M25.571 [facility] [address] [id number] [place] [address] 69322- 1478 Nov, [facility] [address] [address] [id number] [place] [address] 25538- 7721 Nov, Diabetes mellitus E11.9 ; Hypertension I10 ; Gastroparesis K31.84 and Type 2 diabetes mellitus with diabetic autonomic (poly)neuropathy E11.43 [facility] [address] [address] [id number] [place] [address] 62270- 8400 Nov, Right ankle pain M25.571 [facility] [address] [id number] [place] [address] 36429- 2509 Oct, Right ankle pain M25.571 [facility] [address] [id number] [place] [address] 57085- 7661 Oct, [facility] [address] [id number] [place] [address] 50176- 0215 Oct, [place] [address] [address]- 9345 Sep, [facility] [id number] [place] [address] 42073- 7429 Sep, Hypertension I10 [facility] [address] [id number] [address]- 9531 Sep, Chronic kidney disease N18.9 ; Right ankle pain M25.571 and GERD (gastroesophageal reflux disease) K21.9 [facility] [id number] [place] [address] 81449- 3228 Jul, [facility] [id number] [place] [address] 95558- 4544 Jul, Encounter for immunization Z23 ; Venous insufficiency I87.2 and Diabetic polyneuropathy associated with type 2 diabetes mellitus E11.42 [facility] [id number] [place] [address] 47041- 9002 Jul, [facility] [id number] [place] [address] 67765- 3391 Jul, Diabetes mellitus E11.9 [facility] [id number] [place] [address] 76929- 4168 May, [facility] [address] [address]- 2442 Apr, [facility] [id number] [place] [address] 07173- 3910 Mar, Right ankle pain M25.571 [facility] [id number] [place] [address] 90527- 4828 Mar, [facility] [id number] [place] [address] 73887- 6145 February, Paresthesias R20.2 [facility] [address] [address]- 3802 February, [facility] [address] [id number] [place] [address] 64260- 2476 February, 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 [facility] [id number] [place] [address] 88212- 4997 February, Diabetes mellitus E11.9 [facility] [id number] [place] [address] 59079- 3125 February, [facility] [address] [address] [id number] [place] [address] 98283- 2846 February, Polyneuropathy in diabetes 357.2 and Paresthesias R20.2 [facility] [address] [place] [address] [id number] [place] [address] 55926- 4545 February, [facility] [address] [id number] [place] [address] 80123- 3001 February, [facility] [id number] [place] [address] 84725- 1216 February, [facility] [id number] [place] [address] 48892- 7234 February, Diabetes mellitus E11.9 [facility] [address] [id number] [place] [address] 53971- 5367 February, [facility] [id number] [place] [address] 61712- 8152 February, Hyperkalemia E87.5 [facility] [id number] [place] [address] 13403- 6158 Jan, Hypertension I10 [facility] [id number] [place] [address] 62320- 8074 Jan, Insomnia G47.00 [facility] [id number] [place] [address] 31263- 5483 Jan, [facility] [id number] [place] [address] 46088- 1599 Jan, [facility] [id number] [place] [address] 67452- 8550 Jan, [facility] [id number] [place] [address] 07632- 6945 Dec, Right ankle pain M25.571 [facility] [id number] [place] [address] 79623 2546 Dec, GERD (gastroesophageal reflux disease) K21.9 [facility] [address] 76357- 0026 Dec, Insomnia G47.00 [facility] [address] 41353- 7449 Dec, Hypertension I10 and Hyperkalemia 276.7 [place] [address] [place] [id number] [place] [address] 27953- 4736 Dec, Chronic kidney disease N18.9 [place] [address] 10037- 8810 Dec, [place] [address] [place] [id number] [place] [address] 87252- 2643 Dec, Hyperkalemia E87.5 [place] [address] [place] [id number] [place] [address] 44773- 1998 Dec, Chronic kidney disease N18.9 and Right ankle pain M25.571 [place] [address] [place] [id number] [place] [address] 49316- 8725 Nov, GERD (gastroesophageal reflux disease) K21.9 [place] [address] [place] [id number] [place] [address] 61537- 2654 Nov, Right ankle pain M25.571 [place] [address] 91273- 7850 Nov, Diabetes mellitus E11.9 [place] [address] [place] [id number] [place] [address] 91997- 4074 Oct, [place] [address] [address]- 5746 Oct, [facility] [address] [address]- 2839 Oct, [facility] [address], [place] [address]- 1665 Oct, Hyperkalemia E87.5 [facility] [address] [place] [id number] [place] [address] 12793- 6341 Oct, [facility] [address] [address]- 3988 Oct, Hyperkalemia E87.5 [facility] [address] [place] [address] 60511- 3685 Sep, [facility] [address] [place] [address] 60684- 7710 Sep, [facility] [address] [place] [address] 74619- 8187 Sep, [facility] [address] [place] [address] 86822- 6540 Sep, [facility] [address], [place] [address]- 5022 Sep, Right ankle pain M25.571 [facility] [address], [place] [address]- 7238 30 Aug, 2015 Chronic kidney disease N18.9 [facility] [address] [address]- 0917 Aug, [facility] [address] [place] [address] 23214- 0310 Aug, Hyperkalemia E87.5 [facility] [address] [address]- 0784 Aug, [facility] [address] [address]- 5394 Jul, [facility] [address] [place] [address] [id number] [address]- 9090 Jul, [facility] [address] [place] [address] 71616- 2279 Jul, [facility] [address] [address]- 1997 Jul, Diabetes mellitus E11.9 ; Encounter for immunization Z23 ; Hypertension I10 and Hyperkalemia E87.5 [facility] [address] [facility] [id number] [place] [address] 53270- 9566 Jul, [facility] [address] [place] [address] [id number] [place] [address] 13640- 7507 Jul, Hyperkalemia E87.5 [facility] [address] [place] [address] [id number] [place] [address] 80978- 4238 Jul, Hyperkalemia E87.5 [facility] [address] [address]- 6651 Jun, [facility] [address] [place] [address] 82657- 1861 Jun, [facility] [id number], [place] [address]- 6796 15 Jun, 2015 [facility] [address], [place] [address]- 2541 Jun, [facility] [id number], [place] [address]- 2545 May, [facility] [address] [facility] [id number], [place] [address]- 7662 May, [facility] [id number], [place] [address]- 4298 May, [facility] [id number] [address]- 1429 May, Hyperkalemia 276.7 [facility] [place] [facility] [address] [facility] [id number] [place] [address] 254 May, [facility] [place] [facility] [address] [facility] [id number] [place] [address] 2546 Apr, Hyperkalemia 276.7 [facility] [place] [facility] [address] [facility] [id number] [place] [address] 2546 Apr, [facility] [place] [facility] [address] [facility] [id number] [place] [address]- 5684 Apr, [facility] [place] [facility] [address] [facility] [id number] [place] [address]- 1041 Apr, [facility] [place] [facility] [address] [id number] [place] [address]- 9376 Apr, [facility] [place] [facility] [id number] [place] [address]- 7847 Apr, Hyperkalemia 276.7 [facility] [place] [facility] [address] [id number] [place] [address]- 4329 Apr, [facility] [place] [facility] [id number] [place] [address]- 2572 Apr, [facility] [place] [facility] [id number] [address]- 3613 Mar, [facility] [place] [facility] [address] [id number] [place] [address] 2546 Mar, Hyperkalemia 276.7 [facility] [place] [facility] [address] [facility] [id number] [place] [address] 2549 Mar, Hyperkalemia 276.7 [facility] [place] [facility] [address] [facility] [id number] [place] [address] 2546 Mar, [facility] [place] [facility] [address] [id number] [place] [address]- 2547 Mar, [facility] [place] [facility] [id number], [place] [address]- 6276 Mar, [facility] [address] [id number], [place] [address]- 1241 Mar, [facility] [address], [place] [address]- 4390 Mar, Anserine bursitis 726.61 [facility] [address] [place] [address] [id number] [place] [address] 851207- 9913 Mar, Asthma 493.90 and Hyperkalemia 276.7 [facility] [id number] 8693 Mar, [facility] [id number] [place] [address] 64087- 2855 February, [facility] [address], [place] [address]- 8309 February, [facility] [address], [place] [address]- 4529 February, [facility] [address], [place] [address]- 2495 February, [facility] [address], [place] [address]- 1667 February, [facility] [address], [place] [address]- 3124 February, [facility] [address] [id number], [place] [address]- 7365 February, [facility] [address] [id number], [place] [address]- 9814 February, [facility] [id number] 4298 February, [facility] [id number] 1717 Jan, [facility] [id number] [place] [address]- 4387 13 Jan, 2015 [facility] [place] [facility] [address] [id number] [place] [address]- 1184 Dec, [facility] [place] [facility] [address] [id number] [place] [address]- 9268 Dec, [facility] [place] [facility] [address] [id number] [place] [address]- 0168 Dec, [facility] [place] [facility] [address] [id number] [place] [address]- 3564 Dec, [facility] [place] [facility] [address] [id number] [place] [address]- 0906 Dec, [facility] [place] [facility] [address] [id number] [place] [address]- 5714 Dec, [facility] [place] [facility] [address] [id number] [place] [address]- 2376 Dec, [facility] [place] [facility] [address] [id number] [place] [address]- 0206 Dec, [facility] [place] [facility] [address] [id number] [place] [address]- 5979 Dec, [facility] [place] [facility] [address] [id number] [place] [address]- 5386 Dec, [facility] [place] [facility] [address] [id number] [place] [address]- 0559 Dec, [facility] [place] [facility] [address] [id number] [place] [address]- 1316 Dec, [facility] [place] [facility] [address] [id number] [place] [address]- 0365 Dec, [facility] [place] [facility] [address] [id number] [place] [address]- 4742 Dec, [facility] [place] [facility] [address] [id number] [place] [address] 24 Nov, 2014 [facility] [place] [facility] [address] [id number] [place] [address] Nov, [facility] [place] [facility] [address] [id number] [place] [address] Nov, [facility] [place] [facility] [address] [id number] [place] [address] Nov, [facility] [place] [facility] [address] [id number] [place] [address] Nov, [facility] [place] [facility] [address] [id number] [place] [address] Nov, [facility] [place] [facility] [address] [id number] [place] [address] Oct, [facility] [place] [facility] [address] [id number] [place] [address] Oct, [facility] [place] [facility] [address] [id number] [place] [address] Oct, [facility] [place] [facility] [address] [id number] [place] [address] Oct, [facility] [place] [facility] [address] [facility] [id number] [place] [address] Oct, [facility] [place] [facility] [address] [id number] [place] [address] Oct, [facility] [place] [facility] [address] [id number] [address] Sep, [facility] [place] [facility] [address] [id number] [place] [address] Sep, [facility] [place] [facility] [address] [id number] [place] [address] Sep, [facility] [place] [facility] [address] [id number] [address] Sep, [facility] [place] [facility] [address] [id number], [place] [address] Sep, [facility] [place] [facility] [address] [id number] [place] [address] Sep, [facility] [place] [facility] [address] [id number] [place] [address] Aug, [facility] [place] [facility] [address] [id number] [place] [address] Aug, [facility] [place] [facility] [address] [id number] [place] [address] Aug, [facility] [place] [facility] [address] [id number] [place] [address]- [address] Aug, [facility] [place] [facility] [address] [id number] [place] [address] Aug, [facility] [place] [facility] [address] [facility] [id number] [place] [address] Aug, [facility] [place] [facility] [address] [id number] [place] [address] Jul, [facility] [place] [facility] [address] [facility] [id number] [place] [address] Jul, [facility] [place] [facility] [address] [facility] [id number] [place] [address] Jul, [facility] [place] [facility] [address] [id number], [place] [address] Jul, [facility] [place] [facility] [address] [id number], [place] [address] Jul, [facility] [place] [facility] [address] [id number] [place] [address] Jul, [facility] [place] [facility] [address] [facility] [id number] [place] [address] 2014 Jul, [facility] [place] [facility] [address] [facility] [id number] [place] [address] Jul, [facility] [place] [facility] [address] [id number] [place] [address] Jul, [facility] [place] [facility] [address] [id number] [place] [address] Jul, [facility] [place] [facility] [address] [id number] [place] [id number] Jul, [facility] [place] [facility] [address] [id number] [place] [address] Jun, [facility] [place] [facility] [address] [id number] [place] [address] Jun, [facility] [place] [facility] [address] [id number] [place] [address] Jun, [facility] [place] [facility] [address] [id number] [place] [address] Jun, [facility] [place] [facility] [address] [id number] [place] [address] Apr, [facility] [place] [facility] [address] [id number] [place] [address] Apr, [facility] [place] [facility] [address] [id number] [place] [address] Apr, [facility] [place] [facility] [address] [id number] [place] [address] Apr, [facility] [place] [facility] [address] [id number] [place] [address] Mar, [facility] [place] [facility] [address] [id number] [place] [address] Mar, [facility] [place] [facility] [address] [id number] [place] [address] Mar, [facility] [place] [facility] [address] [id number] [place] [address] Mar, [facility] [place] [facility] [address] [id number] [place] [address] Mar, [facility] [address] [facility] [id number] [address] Sep, [facility] [address] [facility] [id number], [place] [address] Sep, [facility] [address] [facility] [id number][place] [address] Aug, IMMUNIZATIONS No Known Immunizations SOCIAL HISTORY Never Assessed REASON FOR VISIT Pain management (chronic) having increased neuropathy pain betsy last week. , On dialysis now, will be going 3 times weekly. CBrumbackRN PLAN OF CARE Activity Details Follow Up 3 Months Reason: VITAL SIGNS Height 62 in 2017-10-11 Weight 157 lbs 2017-10-11 Temperature 98.4 degrees Fahrenheit 2017-10-11 Heart Rate 54 bpm 2017-10-11 Respiratory Rate 18 2017-10-11 BMI 28.71 kg/m2 2017-10-11 Blood pressure systolic 146 mmHg 2017-10-11 Blood pressure diastolic 54 mmHg 2017-10-11 MEDICATIONS Medication Instructions Dosage Frequency Start Date End Date Duration Status Zofran ODT 4 MG Orally every 8 hrs 1 tablet 8h 10 Active Furosemide 80 MG Orally Once a day 1 tablet 24h Active Blood Glucose Test Test Strips subcutaneously 3 times a day check blood sugar 8h 07 Nov, 2016 Active oxycodone 5 mg oral 4 times a day 1 tablet 6h 23 Dec, 2014 28 days Active Multi Vitamin Daily Orally Once a day 1 tablet 24h Active BD Insulin Syringe MicroFine 28G X 1/2 use with insulin 8h Jul, Active Ativan 0.5 MG Orally Prior to MRI 1-2 tablet as needed Jul, 0 days Not-Taking Wheelchair DX Non-healing right ankle fracture Jul, Active Test strips ... subcutaneously 3 times a day contour EZ Next 8h Jul, Active Amitriptyline HCl 25 MG Orally hs 1-3 tablets PRN 30 Active Marie Contour Next Test - TEST BLOOD SUGAR THREE TIMES A DAY E11.9 30 Active Levemir FlexTouch 100 unit/mL (3 mL) Subcutaneous Once a day 10 Units 24h 10 Jul, 2014 Active Cinnamon 500 mg Orally Once a day 4 capsules 24h Active MiraLax 17 gram/dose Orally Once a day take 17 g mixed with 8 oz. water or juice by Oral route 1 time per day 24h Aug, Active Lyrica 50 mg Orally 2 times a day 1 capsule 12h 30 Feb, 2017 30 days Not-Taking Amlodipine Besylate 10 MG TAKE ONE TABLET BY MOUTH ONCE DAILY 30 Active Pantoprazole Sodium 40 mg Orally Once a day 1 tablet 24h 30 Active Glucometer ... subcutaneously one time Accu-check Nov, Active Ferrous Sulfate 325 (65 Fe) MG Orally Once a day 1 tablet 24h Active Reglan 10 mg Orally 4 times a day, ac and hs 1 Nov, Not- Taking NovoFine 32 gauge USE WITH INSULIN PENS THREE TIMES A DAY 30 Active Vitamin D 2000 UNIT Orally Once a day 5000 units 24h Active Qqrootis-XAG-1 0.1 MG/24HR Transdermal once weekly 1 patch to skin 28 Active ProAir HFA 108 (90 Base) MCG/ACT Inhalation every 4 hrs 2 puffs as needed 4h Mar, Active Atenolol 50 mg Orally Once a day 1 tablet 24h 30 Active RESULTS No Results [...]
--- OUTSIDE RECORDS SUMMARY | 2018-07-12 09:28 | XMS REPORT ---
Author Author [facility] Address [address] [place] [address] Care Team Providers Care Lubricator Granulator Name Role Phone OLYA WILLIS Unavailable PROBLEMS Type Condition ICD9-CM Code UAX11-IZ Code Onset Dates Condition Status SNOMED Code Problem Hypertension I10 Active 65847965 Problem Chronic kidney disease N18.9 Active 466587090 Problem Diabetes mellitus E11.9 Active 98499919 Problem Type 2 diabetes mellitus with diabetic autonomic (poly)neuropathy E11.43 Active 088505379 Problem Gastroparesis K31.84 Active 106251349 Problem Diabetic polyneuropathy associated with type 2 diabetes mellitus E11.42 Active 17715720 Problem Paresthesias R20.2 Active 28650455 Problem GERD (gastroesophageal reflux disease) K21.9 Active 643875506 Problem Venous insufficiency I87.2 Active 89570442 ALLERGIES Unknown Allergies SOCIAL HISTORY No smoking Hx information available PLAN OF CARE VITAL SIGNS MEDICATIONS Unknown Medications RESULTS No Results PROCEDURES No Known procedures IMMUNIZATIONS No Known Immunizations
--- OUTSIDE RECORDS SUMMARY | 2018-07-12 09:28 | XMS REPORT ---
Author Author OLYA WILLIS [facility] [employer] Address Unknown Phone Unavailable Care Team Providers Care Housekeeper Child Care Name Role Phone OLYA WILLIS CP Unavailable [...]
--- OUTSIDE RECORDS SUMMARY | 2018-07-12 09:29 | XMS REPORT ---
Author Author OLYA WILLIS Organization [facility] Address [address] [place] [address] Care Team Providers Care Manager Of Training And Development Name Role Phone OLYA WILLIS Unavailable PROBLEMS Type Condition ICD9-CM Code TEE03-KU Code Onset Dates Condition Status SNOMED Code Problem Chronic kidney disease N18.9 Active 728649313 Problem Diabetic polyneuropathy associated with type 2 diabetes mellitus E11.42 Active 95851836 Problem Paresthesias R20.2 Active 89792596 Problem Hypertension I10 Active 24807560 Problem Diabetes mellitus E11.9 Active 69698850 Problem Chronic osteomyelitis of right foot with draining sinus M86.471 Active 272518530978350 Problem Chronic skin ulcer with fat layer exposed L98.492 Active 91344220 Problem GERD (gastroesophageal reflux disease) K21.9 Active 736658874 Problem Venous insufficiency I87.2 Active 88720656 Problem Type 2 diabetes mellitus with diabetic autonomic (poly)neuropathy E11.43 Active 652458141 Problem Gastroparesis K31.84 Active 273411924 ALLERGIES No Information ENCOUNTERS Encounter Location Date Diagnosis [facility] [id number] [place] [address] 82450- 4811 Dec, [facility] [id number] [place] [address] 49247- 7058 Dec, [facility] [id number] [place] [address] 34238- 6261 Dec, Right ankle pain M25.571 [facility] [id number] [place] [address] 21435- 1175 Dec, Chronic skin ulcer with fat layer exposed L98.492 ; Type 2 diabetes mellitus with diabetic autonomic (poly)neuropathy E11.43 and Hypertension I10 [facility] [address] 32983- 8127 Nov, [facility] [address], [place] [address] 8064 Nov, [facility] [id number] [place] [address] 78439- 4127 Nov, [facility] [id number] [place] [address] 62664- 2065 Nov, Right ankle pain M25.571 and Chronic osteomyelitis of right foot with draining sinus M86.471 [facility] [id number] [place] [address] 81031- 3569 Oct, Right ankle pain M25.571 [facility] [id number] [place] [address] 58624- 7321 Oct, [facility] [id number] [place] [address] 05575- 1815 Sep, Diabetes mellitus E11.9 [facility] [id number] [place] [address] 62766- 1788 Sep, Diabetic polyneuropathy associated with type 2 diabetes mellitus E11.42 and Venous insufficiency I87.2 [facility] [id number] [place] [address] 59594- 8015 Sep, Right ankle pain M25.571 [facility] [id number] [place] [address] 07897- 4794 Aug, Right ankle pain M25.571 [facility] [id number] [place] [address] 59125- 7286 Aug, Chronic osteomyelitis of right foot with draining sinus M86.471 [facility] [id number] [place] [address] 09012- 4813 Aug, [facility] [id number] [place] [address] 94407- 9876 Aug, [facility] [id number] [place] [address] 07302- 7641 Aug, Chronic osteomyelitis of right foot with draining sinus M86.471 [facility] [address] 30807- 0465 Jul, [facility] [id number] [place] [address] 30225- 9169 Jul, [facility] [address] 80474- 8171 Jul, Chronic kidney disease N18.9 [facility] [address] 79936- 7037 Jul, Right ankle pain M25.571 [facility] [facility] [address] 33371- 5024 Jul, Non-healing ulcer of right foot, unspecified ulcer stage L97.519 [facility] [address] 72529- 8800 Jul, Chronic skin ulcer with fat layer exposed L98.492 [facility] [address] 72435- 5689 Jul, Deformity of right ankle joint M21.961 [place] [id number] [place] [address] 49403- 2290 Jun, [facility] [address] 01765- 8041 Jun, Diabetes mellitus E11.9 ; Skin ulcer of right foot with fat layer exposed L97.512 and Encounter for immunization Z23 [facility] [id number] [place] [address] 25253- 5785 Jun, Right ankle pain M25.571 [facility] [address] 62264- 2481 May, Right ankle pain M25.571 [facility] [address] 84806- 1215 Apr, Right ankle pain M25.571 [facility] [id number] [place] [address] 23247- 9405 Mar, Right ankle pain M25.571 [facility] [id number] [place] [address] 320419- 9010 Mar, [facility] [id number] [place] [address] 57114- 0845 February, Diabetes mellitus E11.9 and Diabetic polyneuropathy associated with type 2 diabetes mellitus E11.42 [facility] [id number] [place] [address] 98796- 9126 February, Hyperkalemia E87.5 [facility] [id number] [place] [address] 43992- 8776 February, Right ankle pain M25.571 [facility] [id number] [place] [address] 48894- 3197 Jan, Right ankle pain M25.571 [facility] [id number] [place] [address] 53327- 8276 Dec, Right ankle pain M25.571 [facility] [id number] [place] [address] 844290- 0735 Dec, Right ankle pain M25.571 [facility] [id number] [place] [address] 60760- 3542 Nov, [facility] [id number] [place] [address] 22186- 8173 Nov, Diabetes mellitus E11.9 ; Hypertension I10 ; Gastroparesis K31.84 and Type 2 diabetes mellitus with diabetic autonomic (poly)neuropathy E11.43 [facility] [id number] [place] [address] 143914- 3414 Nov, Right ankle pain M25.571 [place] [place] [id number] [place] [address] 16853- 3265 Oct, Right ankle pain M25.571 [facility] [id number] [place] [address] 61862- 6749 Oct, [facility] [id number] [place] [address] 78571- 9855 Oct, [facility] [id number] [place] [address] 12474- 8861 Sep, [facility] [address] 58753- 7788 Sep, Hypertension I10 [facility] [address] 13530- 3495 Sep, Chronic kidney disease N18.9 ; Right ankle pain M25.571 and GERD (gastroesophageal reflux disease) K21.9 [facility] [address] 72230- 4479 Jul, [facility] [address] 07057- 6183 Jul, Encounter for immunization Z23 ; Venous insufficiency I87.2 and Diabetic polyneuropathy associated with type 2 diabetes mellitus E11.42 [facility] [id number] [place] [address] 55161- 8956 Jul, [facility] [id number] [place] [address] 30945- 1346 Jul, Diabetes mellitus E11.9 [facility] [id number] [place] [address] 28697- 8157 May, [facility] [id number] [place] [address] 15118- 1825 Apr, [facility] [id number] [place] [address] 89383- 6811 Mar, Right ankle pain M25.571 [facility] [id number] [place] [address] 30861- 0255 Mar, [facility] [address], [place] [address]- 2924 February, Paresthesias R20.2 [facility] [id number] [place] [address] 86987- 1896 February, [facility] [id number] [place] [address] 15758- 0559 February, 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 [facility] [id number] [place] [address] 72489- 9178 February, Diabetes mellitus E11.9 [facility] [id number] [place] [address] 49505- 1983 February, [facility] [id number] [place] [address] 07450- 4308 February, Polyneuropathy in diabetes 357.2 and Paresthesias R20.2 [facility] [id number] [place] [address] 50960- 7887 February, [facility] [id number] [place] [address] 73565- 0445 February, [facility] [id number] [place] [address] 68548- 5355 February, [facility] [address], [place] [address]- 4643 February, Diabetes mellitus E11.9 [facility] [address], [place] [address]- 5813 February, [facility] [address], [place] [address]- 9451 February, Hyperkalemia E87.5 [facility] [id number] [place] [address] 80451- 6256 Jan, Hypertension I10 [facility] [address], [place] [address]- 1333 Jan, Insomnia G47.00 [facility] [address], [place] [address]- 9446 Jan, [facility] [id number] [place] [address] 47011- 7986 Jan, [facility] [id number] [place] [address] 18327- 9444 Jan, [facility] [id number] [place] [address] 95639- 9994 Dec, Right ankle pain M25.571 [facility] [id number] [place] [address] 34448- 8730 Dec, GERD (gastroesophageal reflux disease) K21.9 [facility] [id number] [place] [address] 67350- 4864 Dec, Insomnia G47.00 [facility] [id number] [place] [address] 44706- 6848 Dec, Hypertension I10 and Hyperkalemia 276.7 [facility] [id number] [place] [address] 88140- 4154 Dec, Chronic kidney disease N18.9 [facility] [id number] [place] [address] 86744 2541 Dec, [facility] [id number] [place] [address] 69877- 3302 Dec, Hyperkalemia E87.5 [facility] [id number] [place] [address] 78708- 2293 Dec, Chronic kidney disease N18.9 and Right ankle pain M25.571 [facility] [id number] [place] [address] 97226- 4690 Nov, GERD (gastroesophageal reflux disease) K21.9 [facility] [id number] [place] [address] 12294- 0014 Nov, Right ankle pain M25.571 [facility] [address], [place] [address]- 8950 Nov, Diabetes mellitus E11.9 [facility] [address], [place] [address]- 6819 Oct, [facility] [address], [place] [address]- 0270 Oct, [facility] [id number] [place] [address] 76653- 9405 Oct, [facility] [id number] [place] [address] 30583- 6648 Oct, Hyperkalemia E87.5 [facility] [address], [place] [address]- 3077 Oct, [facility] [id number] [place] [address] 48101- 1490 Oct, Hyperkalemia E87.5 [facility] [address], [place] [address]- 3304 Sep, [facility] [address], [place] [address]- 1404 Sep, [facility] [address], [place] [address]- 4880 Sep, [facility] [address], [place] [address]- 3753 Sep, [facility] [address], [place] [address]- 8422 Sep, Right ankle pain M25.571 [facility] [address], [place] [address]- 6124 Aug, Chronic kidney disease N18.9 [facility] [address], [place] [address]- 2531 Aug, [facility] [id number] [address]- 5208 Aug, Hyperkalemia E87.5 [facility] [id number] [place] [address] 42721- 4468 Aug, [facility] [id number] [place] [address] 90041- 7506 Jul, [facility] [id number] [place] [address] 23636- 1215 Jul, [facility] [id number] [place] [address] 16325- 0724 Jul, [facility] [id number] [place] [address] 67562- 8793 Jul, Diabetes mellitus E11.9 ; Encounter for immunization Z23 ; Hypertension I10 and Hyperkalemia E87.5 [facility] [id number] [place] [address] 30733- 0208 Jul, [facility] [id number] [place] [address] 37808- 3906 Jul, Hyperkalemia E87.5 [facility] [id number] [place] [address] 91565- 0870 Jul, Hyperkalemia E87.5 [facility] [address], [place] [address]- 3737 28 Jun, 2015 [facility] [id number] [place] [address] 82081- 4410 Jun, [facility] [id number] [place] [address] 48703- 3978 15 Jun, 2015 [facility] [id number] [place] [address] 91542- 1049 Jun, [facility] [address], [place] [address]- 8159 May, [facility] [id number] [place] [address], [place] [address]- 5254 May, [facility] [place] [facility] [address] [id number] [place] [address]- 2608 May, [facility] [place] [facility] [id number] [address]- 0638 May, Hyperkalemia 276.7 [facility] [place] [facility] [id number] [place] [address]- 6400 May, [facility] [place] [facility] [address] [facility] [id number] [place] [address]- 3978 Apr, Hyperkalemia 276.7 [facility] [place] [facility] [id number] [address]- 4413 Apr, [facility] [place] [facility] [id number] [place] [address]- 0094 Apr, [facility] [place] [facility] [address] [place] [address]- 2300 Apr, [facility] [place] [facility] [id number] [address]- 8580 Apr, [facility] [place] [facility] [address] [place] [address]- 9993 Apr, Hyperkalemia 276.7 [facility] [place] [facility] [id number] [place] [address]- 2978 Apr, [facility] [place] [facility] [id number] [place] [address]- 8536 Apr, [facility] [place] [facility] [address] [facility] [id number] [place] [address]- 2399 Mar, [facility] [place] [facility] [address] [facility] [id number] [place] 2710 Mar, Hyperkalemia 276.7 [facility] [place] [facility] [address] [facility] [id number] [place] [address] 2546 Mar, Hyperkalemia 276.7 [facility] [place] [facility] [address] [facility] [id number] [address]- 3104 Mar, [facility] [address] [facility] [id number] [place] [address]- 6758 Mar, [facility] [address] [facility] [id number] [place] [address]- 2056 Mar, [facility] [id number] [place] [address] 84199- 9264 Mar, [facility] [address], [place] [address]- 8738 Mar, Anserine bursitis 726.61 [facility] [address], [place] [address]- 8973 Mar, Asthma 493.90 and Hyperkalemia 276.7 [facility] [address], [place] [address]- 9023 Mar, [facility] [address], [place] [address]- 8575 February, [facility] [address] [address]- 1658 February, [facility] [address], [place] [address]- 4582 February, [facility] [address], [place] [address]- 2165 February, [facility] [id number] [address]- 0711 February, [facility] [address] 2315 February, [facility] [id number] 3736 February, [facility] [id number]- 3254 February, [facility] [place] [facility] [address] [id number] [place] [address]- 7580 February, [facility] [place] [facility] [address] [id number] [place] [address]- 3209 Jan, [facility] [place] [facility] [address] [id number] [place] [address]- 3081 Jan, [facility] [place] [facility] [address] [id number] [place] [address]- 4273 Dec, [facility] [place] [facility] [address] [id number] [place] [address]- 5692 Dec, [facility] [place] [facility] [address] [id number] [place] [address]- 1278 Dec, [facility] [place] [facility] [address] [id number] [place] [address]- 6956 Dec, [facility] [place] [facility] [address] [id number] [place] [address]- 1936 Dec, [facility] [place] [facility] [address] [id number] [place] [address]- 0200 Dec, [facility] [place] [facility] [address] [id number] [place] [address]- 5663 Dec, [facility] [place] [facility] [address] [id number] [place] [address]- 7840 Dec, [facility] [place] [facility] [address] [id number] [place] [address]- 6585 Dec, [facility] [place] [facility] [address] [id number] [place] [address]- 9774 Dec, [facility] [place] [facility] [address] [id number] [place] [address]- 7506 Dec, [facility] [place] [facility] [address] [id number] [place] [address]- 1514 Dec, [facility] [place] [facility] [address] [id number] [place] [address]- 3147 Dec, [facility] [place] [facility] [address] [id number] [place] [address]- 6494 Dec, [facility] [place] [facility] [address] [id number] [place] [address]- 4891 Nov, [facility] [place] [facility] [address] [id number] [place] [address]- 4546 Nov, [facility] [place] [facility] [address] [id number] [place] [address]- 9071 Nov, [facility] [place] [facility] [address] [id number] [place] [address]- 3177 Nov, [facility] [place] [facility] [address] [facility] [id number] [place] [address]- 6857 Nov, [facility] [place] [facility] [address] [facility] [id number] [place] [address]- 7921 Nov, [facility] [place] [facility] [address] [id number] [place] [address]- 1911 Oct, [facility] [place] [facility] [address] [id number] [place] [address]- 9785 Oct, [facility] [place] [facility] [address] [facility] [id number] [place] [address]- 9938 Oct, [facility] [place] [facility] [address] [id number] [place] [address]- 6601 Oct, [facility] [place] [facility] [address] [id number], [place] [address]- 3935 Oct, [facility] [place] [facility] [address] [id number] [place] [address]- 3519 Oct, [facility] [place] [facility] [address] [facility] [id number] [place] [address] Sep, [facility] [place] [facility] [address] [id number] [place] [address] Sep, [facility] [place] [facility] [address] [id number] [place] [address] Sep, [facility] [place] [facility] [address] [id number] [place] [address] Sep, [facility] [place] [facility] [address] [id number] [place] [address] Sep, [facility] [place] [facility] [address] [id number] [place] [address] Sep, [facility] [place] [facility] [address] [id number] [place] [address] Aug, [facility] [place] [facility] [address] [id number] [place] [address] Aug, [facility] [place] [facility] [address] [id number] [place] [address] Aug, [facility] [place] [facility] [address] [id number] [place] [address] Aug, [facility] [place] [facility] [address] [id number] [place] [address] Aug, [facility] [place] [facility] [address] [id number] [place] [address] Aug, [facility] [place] [facility] [address] [id number] [place] [address] Jul, [facility] [place] [facility] [address] [id number] [place] [address] Jul, [facility] [place] [facility] [address] [id number] [place] [address] Jul, [facility] [place] [facility] [address] [id number] [place] [address] Jul, [facility] [place] [facility] [address] [id number] [place] [address] Jul, [facility] [place] [facility] [address] [id number] [place] [address] Jul, [facility] [place] [facility] [address] [id number] [place] [address] Jul, [facility] [place] [facility] [address] [id number] [place] [address] Jul, [facility] [place] [facility] [address] [id number] [place] [address] Jul, [facility] [place] [facility] [address] [id number] [place] [address] Jul, [facility] [place] [facility] [address] [id number] [place] [address] Jul, [facility] [place] [facility] [address] [id number] [place] [address] Jun, [facility] [place] [facility] [address] [id number] [place] [address] Jun, [facility] [place] [facility] [address] [id number] [place] [address] Jun, [facility] [place] [facility] [address] [id number] [place] [address] Jun, [facility] [place] [facility] [address] [id number] [place] [address] Apr, [facility] [place] [facility] [address] [id number] [place] [address] Apr, [facility] [place] [facility] [address] [id number] [place] [address] Apr, [facility] [place] [facility] [address] [id number] [place] [address] Apr, [facility] [place] [facility] [address] [id number] [place] [address] Mar, [facility] [place] [facility] [address] [id number] [place] [address] Mar, [facility] [place] [facility] [address] [facility] [id number] [place] [address] 16 Mar, 2014 [facility] [address] [id number] [address] Mar, [facility] [address] [id number] [address] Mar, [facility] [address] [id number] [id number] Sep, [facility] [address] [id number], [place] [address] Sep, [facility] [address] [id number], [place] [address] Aug, IMMUNIZATIONS No Known Immunizations SOCIAL HISTORY Never Assessed REASON FOR VISIT Oxycodone 04/16 PLAN OF CARE VITAL SIGNS MEDICATIONS Medication [...]
--- OUTSIDE RECORDS SUMMARY | 2018-07-12 09:29 | XMS REPORT ---
Author Author OLYA WILLIS Organization [employer] Address Unknown Phone Unavailable Care Team Providers Care Adult Secondary Education Instructor Name Role Phone OLYA WILLIS CP Unavailable [...]
--- OUTSIDE RECORDS SUMMARY | 2018-07-12 09:29 | XMS REPORT ---
Author Author OLYA WILLIS [facility] [employer] Address Unknown Phone Unavailable Care Team Providers Care Rn New Graduate Name Role Phone OLYA WILLIS CP Unavailable [...] Instructions Start Date End Date Status Dosage Furosemide [facility] [address]-33 40 MG Orally Once a day Oct 09, 2014 1 tablet Results No Known Results Summary Purpose [employer] Submission
--- OUTSIDE RECORDS SUMMARY | 2018-07-12 09:29 | XMS REPORT ---
Author Author OLYA WILLIS [facility] [employer] Address Unknown Phone Unavailable Care Team Providers Care Weld Lay Out Worker Name Role Phone OLYA WILLIS Unavailable Allergies [...] Instructions Start Date End Date Status Dosage Humalog Raheem [facility] [address]-84 100 UNIT/ML Subcutaneous 3 times a day Aug 03, 2014 inject 5 Units Results No Known Results Summary Purpose [employer] Submission
[2018-07-12 09:30] LABS: BASOPHILS % (AUTO) 0 % (0-10); EOSINOPHILS # (AUTO) 0.3 10^3/uL (0.0-0.3); EOSINOPHILS % (AUTO) 2 % (0-10); HEMATOCRIT 27 % (35-52); HEMOGLOBIN 8.8 G/DL (11.5-16.0); LYMPHOCYTES % (AUTO) 16 % (12-44); MEAN CORPUSCULAR HEMOGLOBIN 30 PG (25-34); MEAN CORPUSCULAR HGB CONC 33 G/DL (32-36); MEAN CORPUSCULAR VOLUME 93 FL (80-99); MEAN PLATELET VOLUME 9.9 FL (7.4-10.4); MONOCYTES % (AUTO) 8 % (0-12); NEUTROPHILS # (AUTO) 8.7 X 10^3 (1.8-7.8); NEUTROPHILS % (AUTO) 73 % (42-75); PLATELET COUNT 256 10^3/uL (130-400); RED BLOOD COUNT 2.93 10^6/uL (4.35-5.85); RED CELL DISTRIBUTION WIDTH 14.3 % (10.0-14.5); WHITE BLOOD COUNT 11.9 10^3/uL (4.3-11.0)
--- OUTSIDE RECORDS SUMMARY | 2018-07-12 09:30 | XMS REPORT ---
Author Author OLYA WILLIS Organization [facility] Address [address] [place] [address] Care Team Providers Care Assessment Coordinator Name Role Phone OLYA WILLIS Unavailable PROBLEMS Type Condition ICD9-CM Code DRD31-GL Code Onset Dates Condition Status SNOMED Code Problem Diabetic polyneuropathy associated with type 2 diabetes mellitus E11.42 Active 06487669 Problem GERD (gastroesophageal reflux disease) K21.9 Active 885386907 Problem Venous insufficiency I87.2 Active 96043180 Problem Hypertension I10 Active 33201246 Problem Diabetes mellitus E11.9 Active 03619522 Problem Chronic kidney disease N18.9 Active 540020497 Problem Paresthesias R20.2 Active 65373873 Problem Type 2 diabetes mellitus with foot ulcer E11.621 Active 89270197904242 Problem Non-pressure chronic ulcer of right heel and midfoot with unspecified severity L97.419 Active 432914357 Problem Type 2 diabetes mellitus with diabetic autonomic (poly)neuropathy E11.43 Active 670866890 Problem Gastroparesis K31.84 Active 273134261 Problem Chronic osteomyelitis of right foot with draining sinus M86.471 Active 549128638539509 Problem Chronic skin ulcer with fat layer exposed L98.492 Active 99076843 ALLERGIES No Information ENCOUNTERS Encounter Location Date Diagnosis [place] [id number], [place] [address] Mar, [facility] [address], [place] [address] 4[address] Mar, Encounter for medication monitoring Z51.81 [facility] [id number], [place] [address] 2975 Mar, Type 2 diabetes mellitus with foot ulcer E11.621 and Non- pressure chronic ulcer of right heel and midfoot with unspecified severity L97.419 [place] [id number] [place] [address] 41065- 5067 February, [facility] [id number] [place] [address] 43266- 5941 Jan, Right ankle pain M25.571 [facility] [id number] [place] [address] 70798- 5527 Dec, Right ankle pain M25.571 [facility] [address] 11877- 3916 Dec, [facility] [id number] [place] [address] 17038- 2712 Dec, [facility] [address] 41635- 0274 Dec, Right ankle pain M25.571 [facility] [id number] [place] [address] 89589- 6811 Dec, Chronic skin ulcer with fat layer exposed L98.492 ; Type 2 diabetes mellitus with diabetic autonomic (poly)neuropathy E11.43 and Hypertension I10 [facility] [id number] [place] [address] 17539- 4949 Nov, [facility] [id number] [place] [address] 15532- 9233 Nov, [facility] [id number] [place] [address] 83927- 4384 Nov, [facility] [id number] [place] [address] 23705- 0584 Nov, Right ankle pain M25.571 and Chronic osteomyelitis of right foot with draining sinus M86.471 [facility] [id number] [place] [address] 00862- 6281 Oct, Right ankle pain M25.571 [facility] [id number] [place] [address] 42767- 6415 Oct, [facility] [address], [place] [address]- 9043 Sep, Diabetes mellitus E11.9 [facility] [id number] [place] [address] 19535- 3723 Sep, Diabetic polyneuropathy associated with type 2 diabetes mellitus E11.42 and Venous insufficiency I87.2 [facility] [id number] [place] [address] 95240- 6232 Sep, Right ankle pain M25.571 [facility] [id number] [place] [address] 85745- 1460 Aug, Right ankle pain M25.571 [facility] [id number] [place] [address] 27416- 0586 Aug, Chronic osteomyelitis of right foot with draining sinus M86.471 [facility] [id number] [place] [address] 18074- 0501 Aug, [facility] [id number] [place] [address] 75907- 0116 Aug, [facility] [id number] [place] [address] 17132- 3768 Aug, Chronic osteomyelitis of right foot with draining sinus M86.471 [facility] [id number] [place] [address] 10104- 1092 Jul, [facility] [id number] [place] [address] 08270- 0549 Jul, [facility] [id number] [place] [address] 37850- 3453 Jul, Chronic kidney disease N18.9 [facility] [id number] [place] [address] 27124- 7636 Jul, Right ankle pain M25.571 [facility] [address], [place] [address]- 2547 Jul, Non-healing ulcer of right foot, unspecified ulcer stage L97.519 [place] [id number] [place] [address] 21013- 6426 Jul, Chronic skin ulcer with fat layer exposed L98.492 [place] [id number] [place] [address] 91889- 4975 Jul, Deformity of right ankle joint M21.961 [place] [id number] [place] [address] 17354- 3684 Jun, [place] [id number] [place] [address] 88661- 0942 Jun, Diabetes mellitus E11.9 ; Skin ulcer of right foot with fat layer exposed L97.512 and Encounter for immunization Z23 [place] [id number] [place] [address] 69373- 8687 18 Jun, 2017 Right ankle pain M25.571 [place] [id number] [place] [address] 37639- 2482 May, Right ankle pain M25.571 [place] [id number] [place] [address] 38300- 0684 Apr, Right ankle pain M25.571 [place] [id number] [place] [address] 19282- 0605 Mar, Right ankle pain M25.571 [place] [id number] [place] [address] 53710- 8314 Mar, [place] [id number] [place] [address] 14972- 4510 February, Diabetes mellitus E11.9 and Diabetic polyneuropathy associated with type 2 diabetes mellitus E11.42 [place] [id number] [place] [address] 39191- 5593 February, Hyperkalemia E87.5 [place] [id number] [place] [address] 45497- 3621 February, Right ankle pain M25.571 [facility] [id number] [place] [address] 00930- 3125 Jan, Right ankle pain M25.571 [facility] [id number] [place] [address] 03840- 4177 Dec, Right ankle pain M25.571 [facility] [id number] [place] [address] 12941- 8890 Dec, Right ankle pain M25.571 [facility] [id number] [place] [address] 33896- 1069 Nov, [place] [address] 87320- 3347 Nov, Diabetes mellitus E11.9 ; Hypertension I10 ; Gastroparesis K31.84 and Type 2 diabetes mellitus with diabetic autonomic (poly)neuropathy E11.43 [place] [id number] [place] [address] 54117- 1537 Nov, Right ankle pain M25.571 [facility] [id number] [place] [address] 23720- 6231 Oct, Right ankle pain M25.571 [facility] [id number] [place] [address] 28863- 2844 Oct, [place] [id number] [place] [address] 13533- 2458 Oct, [facility] [id number] [place] [address] 91874- 0977 Sep, [facility] [id number] [place] [address] 02328- 3437 Sep, Hypertension I10 [facility] [id number] [place] [address] 30227- 2839 Sep, Chronic kidney disease N18.9 ; Right ankle pain M25.571 and GERD (gastroesophageal reflux disease) K21.9 [facility] [id number], [place] [address]- 4489 Jul, [facility] [id number] [place] [address] 20610- 2275 Jul, Encounter for immunization Z23 ; Venous insufficiency I87.2 and Diabetic polyneuropathy associated with type 2 diabetes mellitus E11.42 [facility] [id number] [place] [address] 02111- 6734 Jul, [facility] [id number] [place] [address] 39511- 0280 Jul, Diabetes mellitus E11.9 [facility] [id number] [place] [address] 17648- 9973 May, [facility] [id number] [place] [address] 81826- 2310 Apr, [facility] [id number] [place] [address] 38560- 1842 Mar, Right ankle pain M25.571 [facility] [id number] [place] [address] 89065- 1560 Mar, [facility] [id number] [place] [address] 93312- 4230 February, Paresthesias R20.2 [facility] [id number] [place] [address] 94331- 4943 February, [facility] [id number] [place] [address] 04018- 2528 February, 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 [facility] [id number] [place] [address] 86939- 4565 February, Diabetes mellitus E11.9 [facility] [id number] [place] [address] 42309- 0817 February, [facility] [id number] [place] [address] 50036- 4133 February, Polyneuropathy in diabetes 357.2 and Paresthesias R20.2 [facility] [id number] [place] [address] 58438- 9651 February, [facility] [address] 83577- 3673 February, [facility] [address] 84101- 8450 February, [facility] [address] 83492- 8982 February, Diabetes mellitus E11.9 [facility] [address] 06806- 6291 February, [facility] [address] 55203- 3781 February, Hyperkalemia E87.5 [facility] [address] 46910- 3415 Jan, Hypertension I10 [facility] [address] 32717- 4760 Jan, Insomnia G47.00 [facility] [address] 53683- 3701 Jan, [facility] [id number] [place] [address] 81193- 2697 Jan, [facility] [id number] [place] [address] 65407- 8228 Jan, [facility] [id number] [place] [address] 03521- 8096 Dec, Right ankle pain M25.571 [facility] [address] 19883- 5694 Dec, GERD (gastroesophageal reflux disease) K21.9 [facility] [address] 47966- 7507 Dec, Insomnia G47.00 [facility] [id number] [place] [address] 50316- 7969 18 Dec, 2015 Hypertension I10 and Hyperkalemia 276.7 [facility] [id number] [place] [address] 50164- 4497 10 Dec, 2015 Chronic kidney disease N18.9 [facility] [id number] [place] [address] 32786- 4663 07 Dec, 2015 [facility] [id number] [place] [address] 81215- 0609 Dec, Hyperkalemia E87.5 [place] [address] 88029- 8748 Dec, Chronic kidney disease N18.9 and Right ankle pain M25.571 [place] [address] 03616- 7250 Nov, GERD (gastroesophageal reflux disease) K21.9 [facility] [id number] [place] [address] 21104- 6864 Nov, Right ankle pain M25.571 [facility] [id number] [place] [address] 80387- 9914 Nov, Diabetes mellitus E11.9 [facility] [id number] [place] [address] 09644- 8880 Oct, [facility] [id number] [place] [address] 80245- 4571 Oct, [facility] [id number] [place] [address] 71713- 1177 Oct, [facility] [id number] [place] [address] 96155- 4410 Oct, Hyperkalemia E87.5 [facility] [id number] [place] [address] 59707- 3140 Oct, [facility] [id number] [place] [address] 75932- 2107 Oct, Hyperkalemia E87.5 [facility] [id number] [place] [address] 33677- 6827 Sep, [facility] [id number] [place] [address] 37225- 3436 Sep, [facility] [id number] [place] [address] 62542- 9826 Sep, [facility] [id number] [place] [address] 46909- 5737 Sep, [facility] [id number] [place] [address] 29305- 1610 Sep, Right ankle pain M25.571 [facility] [id number] [place] [address] 24317- 6238 Aug, Chronic kidney disease N18.9 [facility] [id number] [place] [address] 01910- 1035 Aug, [facility] [id number] [place] [address] 22955- 0307 Aug, Hyperkalemia E87.5 [facility] [id number] [place] [address] 40513- 9704 Aug, [facility] [id number] [place] [address] 58654- 5342 Jul, [facility] [id number] [place] [address] 98281- 7060 Jul, [facility] [id number] [place] [address] 90983- 8723 Jul, [facility] [id number] [place] [address] 36980- 5358 Jul, Diabetes mellitus E11.9 ; Encounter for immunization Z23 ; Hypertension I10 and Hyperkalemia E87.5 [facility] [place] [facility] [address] [id number] [place] [address]- 4998 Jul, [facility] [place] [facility] [address] [id number] [place] [address]- 1776 Jul, Hyperkalemia E87.5 [facility] [place] [facility] [address] [facility] [id number] [place] [address]- 4714 Jul, Hyperkalemia E87.5 [facility] [place] [facility] [address] [id number] [place] [address]- 0829 Jun, [facility] [place] [facility] [address] [id number] [place] [address]- 9403 Jun, [facility] [place] [facility] [address] [facility] [id number] [place] [address]- 8870 Jun, [facility] [place] [facility] [address] [facility] [id number] [place] [address]- 1897 Jun, [facility] [place] [facility] [address] [facility] [id number] [place] [address]- 2264 May, [facility] [place] [facility] [address] [facility] [id number] [place] [address]- 6161 May, [facility] [place] [facility] [address] [facility] [id number], [place] [address]- 2047 May, [facility] [place] [facility] [address] [facility] [id number] [place] [address]- 1463 May, Hyperkalemia 276.7 [facility] [place] [facility] [address] [facility] [id number] [place] [address]- 2540 May, [facility] [place] [facility] [address] [facility] [id number] [place] [address]- 7977 Apr, Hyperkalemia 276.7 [facility] [place] [facility] [address] [facility] [id number] [place] 3819 Apr, [facility] [place] [facility] [address] [facility] [id number], [place] [address]- 9656 Apr, [facility] [id number], [place] [address] 2546 Apr, [facility] [id number], [place] [address] 2546 Apr, [facility] [address], [place] [address] 2546 Apr, Hyperkalemia 276.7 [facility] [id number], [place] [address] 2546 Apr, [facility] [id number], [place] [address]- 1423 Apr, [facility] [address], [place] [address]- 2868 Mar, [facility] [address], [place] [address]- 2373 Mar, Hyperkalemia 276.7 [facility] [id number], [place] [address] 2549 Mar, Hyperkalemia 276.7 [facility] [address], [place] [address] 2540 Mar, [facility] [address], [place] [address]- 9656 Mar, [facility] [id number], [place] [address] 2548 Mar, [facility] [id number], [place] [address] 2547 Mar, [facility] [id number], [place] [address]- 2546 Mar, Anserine bursitis 726.61 [facility] [id number], [place] [address]- 2546 Mar, Asthma 493.90 and Hyperkalemia 276.7 [facility] [place] [facility] [address] [id number] [place] [address]- 4314 Mar, [facility] [place] [facility] [address] [id number] [place] [address]- 3354 February, [facility] [place] [facility] [address] [id number] [place] [address]- 5412 February, [facility] [place] [facility] [address] [id number] [place] [address]- 3066 February, [facility] [place] [facility] [address] [id number] [place] [address]- 2497 February, [facility] [place] [facility] [address] [id number] [place] [address]- 0343 February, [facility] [place] [facility] [address] [id number] [place] [address]- 9772 February, [facility] [place] [facility] [address] [id number] [place] [address]- 2702 February, [facility] [place] [facility] [address] [id number] [place] [address]- 5409 February, [facility] [place] [facility] [address] [id number] [place] [address]- 4033 February, [facility] [place] [facility] [address] [id number] [place] [address]- 4966 Jan, [facility] [place] [facility] [address] [id number] [place] [address]- 3104 Jan, [facility] [place] [facility] [address] [id number] [place] [address]- 8636 Dec, [facility] [place] [facility] [address] [id number] [place] [address]- 1003 Dec, [facility] [place] [facility] [address] [id number] [place] [address]- 8119 Dec, [facility] [place] [facility] [address] [id number] [place] [address]- 7221 Dec, [facility] [place] [facility] [address] [id number] [place] [address]- 3383 Dec, [facility] [place] [facility] [address] [id number] [place] [address]- 3040 Dec, [facility] [place] [facility] [address] [facility] [id number] [place] [address]- 5652 Dec, [facility] [place] [facility] [address] [id number] [place] [address]- 5009 Dec, [facility] [place] [facility] [address] [id number] [place] [address]- 3612 Dec, [facility] [place] [facility] [address] [facility] [id number] [place] [address]- 5018 Dec, [facility] [place] [facility] [address] [facility] [id number] [place] [address]- 4248 Dec, [facility] [place] [facility] [address] [facility] [id number] [place] [address]- 8030 Dec, [facility] [place] [facility] [address] [id number] [place] [address]- 9307 Dec, [facility] [place] [facility] [address] [facility] [id number] [place] [address] Dec, [facility] [place] [facility] [address] [id number] [place] [address] Nov, 2014 [facility] [place] [facility] [address] [facility] [id number] [place] [address] Nov, [facility] [place] [facility] [address] [id number] [place] [address] Nov, 2014 [facility] [place] [facility] [address] [facility] [id number] [place] [address] Nov, 2014 [facility] [place] [facility] [address] [facility] [id number], [place] [address] Nov, [facility] [place] [facility] [address] [id number] [place] [address] Nov, [facility] [place] [facility] [address] [id number] [place] [address] Oct, [facility] [place] [facility] [address] [id number] [place] [address] Oct, [facility] [place] [facility] [address] [id number] [place] [address] Oct, [facility] [place] [facility] [address] [id number] [place] [address] Oct, [facility] [place] [facility] [address] [id number] [place] [address] Oct, [facility] [place] [facility] [address] [id number] [place] [address] Oct, [facility] [place] [facility] [address] [id number] [place] [address] Sep, [facility] [place] [facility] [address] [id number] [place] [address] 30 Sep, 2014 [facility] [place] [facility] [address] [id number] [place] [address] Sep, [facility] [place] [facility] [address] [id number] [place] [address] 16 Sep, 2014 [facility] [place] [facility] [address] [id number] [place] [address] Sep, [facility] [place] [facility] [address] [id number] [place] [address] Sep, [facility] [place] [facility] [address] [id number] [place] [address] Aug, [facility] [place] [facility] [address] [id number] [place] [address] Aug, [facility] [place] [facility] [address] [id number], [place] [address] Aug, [facility] [place] [facility] [address] [id number] [place] [address] Aug, [facility] [place] [facility] [address] [id number] [place] [address] Aug, [facility] [place] [facility] [address] [id number] [place] [address] Aug, [facility] [place] [facility] [address] [id number] [place] [address]- [address] Jul, [facility] [place] [facility] [address] [id number] [place] [address] Jul, [facility] [place] [facility] [address] [id number] [place] [address] Jul, [facility] [place] [facility] [address] [id number] [place] [address] Jul, [facility] [place] [facility] [address] [id number] [place] [address] Jul, [facility] [place] [facility] [address] [id number] [place] [address] Jul, [facility] [place] [facility] [address] [id number] [place] [address] Jul, [facility] [place] [facility] [address] [id number], [place] [address] Jul, [facility] [place] [facility] [address] [id number], [place] [address] Jul, [facility] [place] [facility] [address] [id number], [place] [address] Jul, [facility] [place] [facility] [address] [id number], [place] [address] Jul, [facility] [place] [facility] [address] [id number] [place] [address] Jun, [facility] [place] [facility] [address] [facility] [id number] [place] [address] Jun[facility] [address] [facility] [facility] [id number] [place] [address] Jun, [facility] [address] [facility] [id number] [place] [address] Jun, [facility] [address] [facility] [id number] [place] [address] Apr, [facility] [address] [facility] [id number] [place] [address] Apr, [facility] [address] [facility] [id number] [place] [address] Apr, [facility] [address] [facility] [id number] [place] [address] Apr, [facility] [address] [facility] [id number] [place] [address] Mar, [facility] [address] [facility] [id number], [place] [address] Mar, [facility] [address] [facility] [id number][place] [address] Mar, [facility] [address] [id number] [address] Mar, [facility] [address] [id number] [address] Mar, [facility] [address] [facility] [id number], [place] [address] Sep, [facility] [address] [facility] [id number], [place] [address] Sep, [facility] [address] [facility] [id number], [place] [address] Aug, IMMUNIZATIONS No Known Immunizations SOCIAL HISTORY Never Assessed REASON FOR VISIT Oxycodone 10/05 PLAN OF CARE VITAL SIGNS MEDICATIONS Medication [...]
--- OUTSIDE RECORDS SUMMARY | 2018-07-12 09:30 | XMS REPORT ---
Author Author OLYA WILLIS [facility] eClinical[employer] Address Unknown Phone Unavailable Care Team Providers Care Insurance Loss Control Surveyor Name Role Phone OLYA WILLIS CP Unavailable Allergies, Adverse Reactions, Alerts Substance Reaction Event Type Sulfacetamide Sodium Info Not Available Drug Allergy Plavix caused bleeding Drug Allergy Neurontin Makes her disoriented Drug Allergy Lyrica Info Not Available Drug Allergy Problems Problem Type Condition Code Onset Dates Condition Status Assessment Venous insufficiency I87.2 Active Assessment Diabetic polyneuropathy associated with type 2 diabetes mellitus E11.42 Active Problem Diabetic polyneuropathy associated with type 2 diabetes mellitus E11.42 Active Problem Paresthesias R20.2 Active Problem Venous insufficiency I87.2 Active Problem Hypertension I10 Active Assessment Encounter for immunization Z23 Active Problem Chronic kidney disease N18.9 Active Problem Diabetes mellitus E11.9 Active Medications Medication Code System Code Instructions Start Date End Date Status Dosage Multi Vitamin Daily [facility] [address] Orally Once a day 1 tablet Protonix [facility] [address]-98 40 MG Orally Once a day Nov 06, 2014 1 tablet Amlodipine Besylate [facility] 51146755570 10 MG TAKE ONE TABLET BY MOUTH ONCE DAILY Vitamin D [facility] [address]-07 2000 UNIT Orally twice a day 1 tablet Pantoprazole Sodium [facility] 24966273602 40 MG TAKE ONE TABLET BY MOUTH ONCE DAILY Wheelchair ND 0 Aug 02, 2014 DX Non-healing right ankle fracture Oxycodone HCl [facility] 35362777195 5 MG TAKE ONE TABLET BY MOUTH FOUR TIMES DAILY MiraLax [facility] [address]-68 17 gram/dose Orally Once a day Aug 31, 2014 take 17 g mixed with 8 oz. water or juice by Oral route 1 time per day Cinnamon [facility] [address]-79 500 MG Orally not defined Levemir FlexTouch [facility] [address]-87 100 unit/mL (3 mL) Subcutaneous Once a day Aug 03, 2014 10 Units Furosemide [facility] 57171982732 40 MG Orally Once a day 1 tablet oxycodone NDC 0 5 mg oral 4 times a day January 14, 2015 1 tablet BD Insulin Syringe MicroFine [facility] 8290-384418 28G X 1/2 3 times a day Jul 28, 2016 use with insulin Zofran ODT [facility] [address]-74 4 MG Orally every 8 hrs Oct 23, 2014 1 tablet Atenolol [facility] [address]-20 50 mg Orally Once a day February 21, 2016 1 tablet Test strips NDC 0 ... subcutaneously 3 times a day Jul 28, 2016 contour EZ Next Procedures Procedure Coding System Code Date SINGLE IMMUNIZATION ADMIN CPT-4 16054 Aug 13, 2016 Office Visit, Est Pt., Level 2 CPT-4 43010 Aug 13, 2016 FLUARIX QUAD P-FREE 3 AND UP .50 2015 CPT-4 77773 Aug 13, 2016 Vital Signs Date/Time: Aug 13, 2016 Cardiac Monitoring Heart Rate 64 bpm Weight 179 lbs Height 62 in BMI 32.74 Index Blood Pressure Diastolic 80 mmHg Blood Pressure Systolic 170 mmHg Results No Known Results Immunizations Vaccine Administration Date FLUARIX QUAD P-FREE 3 AND UP .50 2015Aug 13, 2016 Summary Purpose eClinicalWorks Submission
--- OUTSIDE RECORDS SUMMARY | 2018-07-12 09:31 | XMS REPORT ---
Author Author OLYA WILLIS [facility] eClinicalWorks Address Unknown Phone Unavailable Care Team Providers Care Wire Straightening Machine Operator Name Role Phone OLYA WILLIS CP Unavailable [...]
--- OUTSIDE RECORDS SUMMARY | 2018-07-12 09:31 | XMS REPORT ---
Author Author OLYA WILLIS Organization [employer] Address Unknown Phone Unavailable Care Team Providers Care Business Loan Processor Name Role Phone OLYA WILLIS CP Unavailable [...]
--- OUTSIDE RECORDS SUMMARY | 2018-07-12 09:31 | XMS REPORT ---
Author Author OLYA WILLIS Organization [facility] Address [address] [place] [address] Care Team Providers Care Invoice Checker Name Role Phone OLYA WILLIS Unavailable PROBLEMS Type Condition ICD9-CM Code [id number] Code Onset Dates Condition Status SNOMED Code Problem Chronic kidney disease N18.9 Active 093246612 Problem Diabetic polyneuropathy associated with type 2 diabetes mellitus E11.42 Active 14778032 Problem Paresthesias R20.2 Active 01466024 Problem Hypertension I10 Active 64290217 Problem Diabetes mellitus E11.9 Active 36864520 Problem Chronic osteomyelitis of right foot with draining sinus M86.471 Active 911681596519352 Problem Chronic skin ulcer with fat layer exposed L98.492 Active 81060428 Problem GERD (gastroesophageal reflux disease) K21.9 Active 978445520 Problem Venous insufficiency I87.2 Active 18430642 Problem Type 2 diabetes mellitus with diabetic autonomic (poly)neuropathy E11.43 Active 948878462 Problem Gastroparesis K31.84 Active 202694232 ALLERGIES Substance Reaction Event Type Date Status Sulfacetamide Sodium Unknown Drug Allergy February, Active Plavix caused bleeding Drug Allergy February, Active Neurontin Makes her disoriented Drug Allergy February, Active Lyrica Unknown Drug Allergy February, Active SOCIAL HISTORY Never Assessed PLAN OF CARE Activity Details Follow Up 3 Months Reason: VITAL SIGNS Height 62 in 2017-03-23 Weight 155 lbs 2017-03-23 Temperature 98.6 degrees Fahrenheit 2017-03-23 Heart Rate 58 bpm 2017-03-23 Respiratory Rate 18 2017-03-23 BMI 28.35 kg/m2 2017-03-23 Blood pressure systolic 130 mmHg 2017-03-23 Blood pressure diastolic 80 mmHg 2017-03-23 MEDICATIONS Medication Instructions Dosage Frequency Start Date End Date Duration Status Protonix 40 MG Orally Once a day 1 tablet 24h Oct, Active Ferrous Sulfate 325 (65 Fe) MG Orally Once a day 1 tablet 24h Active Cinnamon 500 MG Active Wheelchair DX Non-healing right ankle fracture Jul, Active Amitriptyline HCl 25 MG Orally hs 1-3 tablets PRN 30 Active Multi Vitamin Daily Orally Once a day 1 tablet 24h Active Marie Contour Next Test - TEST BLOOD SUGAR THREE TIMES A DAY E11.9 30 Active ProAir HFA 108 (90 Base) MCG/ACT Inhalation every 4 hrs 2 puffs as needed 4h Mar, Active Glucometer ... subcutaneously one time Accu-check Nov, Active [id number]-9 0.1 MG/24HR Transdermal once weekly 1 patch to skin 28 Active Blood Glucose Test Test Strips subcutaneously 3 times a day check blood sugar 8h Nov, Active Levemir FlexTouch 100 unit/mL (3 mL) Subcutaneous Once a day 10 Units 24h 10 Jul, 2014 Active MiraLax 17 gram/dose Orally Once a day take 17 g mixed with 8 oz. water or juice by Oral route 1 time per day 24h Aug, Active Vitamin D 2000 UNIT Orally twice a day 1 tablet 12h Active Atenolol 50 mg Orally Once a day 1 tablet 24h 30 Active Zofran ODT 4 MG Orally every 8 hrs 1 tablet 8h 10 Active BD Insulin Syringe MicroFine 28G X 1/2 use with insulin 8h Jul, Active Test strips ... subcutaneously 3 times a day contour EZ Next 8h Jul, Active oxycodone 5 mg oral 4 times a day 1 tablet 6h Dec, Active Furosemide 40 mg Orally Once a day 2 tablet 24h 30 days Active Lyrica 50 mg Orally 2 times a day 1 capsule 12h February, 30 days Active Amlodipine Besylate 10 MG TAKE ONE TABLET BY MOUTH ONCE DAILY 30 Active RESULTS Name Result Date Reference Range A1C (IN HOUSE) 2017-03-23 A1C IN HOUSE 6.4 4.3 - 5.6 % Previous A1c 6.5 Lot [id number] Exp date 10/2018 PROCEDURES Procedure Date Ordered Result Body Site GLYCATED HEMOGLOBIN TEST March 23, 2017 IMMUNIZATIONS No Known Immunizations MEDICAL (GENERAL) HISTORY [...]
--- OUTSIDE RECORDS SUMMARY | 2018-07-12 09:31 | XMS REPORT ---
Author Author OLYA WILLIS Organization [facility] Address [address] [place] [address] Care Team Providers Care Radiology Rn Name Role Phone OLYA WILLIS Unavailable PROBLEMS Type Condition ICD9-CM Code [id number] Code Onset Dates Condition Status SNOMED Code Problem Chronic kidney disease N18.9 Active 411350293 Problem Diabetic polyneuropathy associated with type 2 diabetes mellitus E11.42 Active 08230099 Problem Paresthesias R20.2 Active 35082910 Problem Hypertension I10 Active 48305446 Problem Diabetes mellitus E11.9 Active 49981210 Problem Chronic osteomyelitis of right foot with draining sinus M86.471 Active 438045125289712 Problem Chronic skin ulcer with fat layer exposed L98.492 Active 54789990 Problem GERD (gastroesophageal reflux disease) K21.9 Active 513198863 Problem Venous insufficiency I87.2 Active 22663202 Problem Type 2 diabetes mellitus with diabetic autonomic (poly)neuropathy E11.43 Active 762715326 Problem Gastroparesis K31.84 Active 622597231 ALLERGIES Substance Reaction Event Type Date Status Sulfacetamide Sodium Unknown Drug Allergy Jun, Active Plavix caused bleeding Drug Allergy Jun, Active Neurontin Makes her disoriented Drug Allergy Jun, Active Lyrica dizziness Drug Allergy Jun, Active ENCOUNTERS Encounter Location Date Diagnosis [facility] [id number], [place] [address] Jan, [facility] [id number], [place] [address] 0975 Dec, Right ankle pain M25.571 [facility] [id number], [place] [address] Dec, [facility] [id number], [place] [address] 89[address] Dec, [facility] [id number] [place] [address] 71493- 7422 Dec, Right ankle pain M25.571 [facility] [id number] [place] [address] 70897- 1261 Dec, Chronic skin ulcer with fat layer exposed L98.492 ; Type 2 diabetes mellitus with diabetic autonomic (poly)neuropathy E11.43 and Hypertension I10 [facility] [facility] [address] [address]- [address] Nov, [facility] [address] [address]- 6383 Nov, [place] [address] 34875- 3746 Nov, [facility] [id number] [place] [address] 21895- 1038 Nov, Right ankle pain M25.571 and Chronic osteomyelitis of right foot with draining sinus M86.471 [facility] [id number] [place] [address] 66703- 4360 Oct, Right ankle pain M25.571 [facility] [id number] [place] [address] 40766- 3716 Oct, [facility] [id number] [place] [address] 67534- 2578 Sep, Diabetes mellitus E11.9 [facility] [id number] [place] [address] 89452- 5569 Sep, Diabetic polyneuropathy associated with type 2 diabetes mellitus E11.42 and Venous insufficiency I87.2 [place] [address] 38547- 0905 Sep, Right ankle pain M25.571 [facility] [id number] [place] [address] 68809- 6081 Aug, Right ankle pain M25.571 [facility] [facility] [address], [place] [address] 1163 Aug, Chronic osteomyelitis of right foot with draining sinus M86.471 [facility] [id number] [place] [address] 96930- 2471 Aug, [facility] [id number] [place] [address] 18411- 0533 Aug, [facility] [id number] [place] [address] 79051- 5487 Aug, Chronic osteomyelitis of right foot with draining sinus M86.471 [facility] [id number] [place] [address] 68725- 5888 Jul, [facility] [id number] [place] [address] 11645- 8106 Jul, [facility] [id number] [place] [address] 68968- 9719 Jul, Chronic kidney disease N18.9 [facility] [id number] [place] [address] 56368- 6152 Jul, Right ankle pain M25.571 [facility] [id number] [place] [address] 41536- 6663 Jul, Non-healing ulcer of right foot, unspecified ulcer stage L97.519 [facility] [id number] [place] [address] 30183- 1506 Jul, Chronic skin ulcer with fat layer exposed L98.492 [facility] [id number] [place] [address] 09191- 9233 Jul, Deformity of right ankle joint M21.961 [facility] [id number] [place] [address] 35256- 5836 Jun, [facility] [id number] [place] [address] 85281- 3885 Jun, Diabetes mellitus E11.9 ; Skin ulcer of right foot with fat layer exposed L97.512 and Encounter for immunization Z23 [facility] [id number] [place] [address] 78508- 9002 Jun, Right ankle pain M25.571 [facility] [id number] [place] [address] 36779- 5062 May, Right ankle pain M25.571 [facility] [address] 74330- 4770 Apr, Right ankle pain M25.571 [facility] [id number] [place] [address] 68948- 0105 Mar, Right ankle pain M25.571 [facility] [id number] [place] [address] 45952- 5428 Mar, [facility] [id number] [place] [address] 32046- 2973 February, Diabetes mellitus E11.9 and Diabetic polyneuropathy associated with type 2 diabetes mellitus E11.42 [facility] [id number] [place] [address] 35677- 2019 February, Hyperkalemia E87.5 [facility] [id number] [place] [address] 98315- 4231 February, Right ankle pain M25.571 [facility] [id number] [place] [address] 22310- 4960 Jan, Right ankle pain M25.571 [facility] [id number] [place] [address] 43027- 1231 Dec, Right ankle pain M25.571 [facility] [id number] [place] [address] 12316- 4683 Dec, Right ankle pain M25.571 [facility] [id number] [place] [address] 59764- 7315 Nov, [facility] [id number] [place] [address] 15217- 2293 07 Nov, 2016 Diabetes mellitus E11.9 ; Hypertension I10 ; Gastroparesis K31.84 and Type 2 diabetes mellitus with diabetic autonomic (poly)neuropathy E11.43 [facility] [facility] [id number] [place] [address] 23044- 9247 Nov, Right ankle pain M25.571 [place] [address] 27812- 5238 Oct, Right ankle pain M25.571 [place] [address] 93718- 3060 Oct, [place] [address] 42308- 0861 Oct, [place] [address] 18512- 3381 Sep, [place] [address] 37685- 8834 Sep, Hypertension I10 [place] [address] 91685- 0138 Sep, Chronic kidney disease N18.9 ; Right ankle pain M25.571 and GERD (gastroesophageal reflux disease) K21.9 [facility] [id number] [place] [address] 30041- 7532 Jul, [place] [address] 87022- 3193 Jul, Encounter for immunization Z23 ; Venous insufficiency I87.2 and Diabetic polyneuropathy associated with type 2 diabetes mellitus E11.42 [place] [address] 48128- 9241 Jul, [place] [id number] [place] [address] 97269- 7362 Jul, Diabetes mellitus E11.9 [place] [address] [place] [address]- 2559 May, [facility] [address] [place] [address] 93087- 5989 Apr, [facility] [address] [place] [address] 35741- 8332 Mar, Right ankle pain M25.571 [facility] [id number] [place] [address] 36154- 6972 Mar, [facility] [id number] [place] [address] 86332- 4737 February, Paresthesias R20.2 [facility] [id number] [place] [address] 56141- 2442 February, [facility] [id number] [place] [address] 01786- 4961 February, 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 [facility] [address] [place] [address] 09118- 9776 February, Diabetes mellitus E11.9 [facility] [id number] [place] [address] 63740- 3691 February, [facility] [address] [place] [address] 56079- 8409 February, Polyneuropathy in diabetes 357.2 and Paresthesias R20.2 [facility] [address], [place] [address]- 8951 February, [facility] [address], [place] [address]- 5089 February, [facility] [id number] [place] [address] 55560- 1761 February, [facility] [id number] [place] [address] 39960- 9944 February, Diabetes mellitus E11.9 [facility] [id number] [place] [address] 24592- 2106 February, [facility] [id number] [place] [address] 25900- 4097 February, Hyperkalemia E87.5 [facility] [id number] [place] [address] 07785- 3116 Jan, Hypertension I10 [facility] [id number] [place] [address] 70732- 9436 Jan, Insomnia G47.00 [facility] [id number] [place] [address] 24264- 1761 Jan, [facility] [id number] [place] [address] 14061- 8929 Jan, [facility] [id number] [place] [address] 78777- 3768 Jan, [facility] [id number] [place] [address] 34760- 4265 Dec, Right ankle pain M25.571 [facility] [id number] [place] [address] 84871- 0205 Dec, GERD (gastroesophageal reflux disease) K21.9 [facility] [address] [place] [address] 70357- 3050 Dec, Insomnia G47.00 [facility] [id number] [place] [address] 32311- 2549 Dec, Hypertension I10 and Hyperkalemia 276.7 [facility] [address] [place] [address] 33135- 0365 Dec, Chronic kidney disease N18.9 [facility] [id number] [place] [address] 56608- 0196 Dec, [facility] [address] [place] [address] 91514- 5529 Dec, Hyperkalemia E87.5 [facility] [id number] [place] [address] 91612- 9041 Dec, Chronic kidney disease N18.9 and Right ankle pain M25.571 [facility] [id number] [place] [address] 56894- 1259 11 Nov, 2015 GERD (gastroesophageal reflux disease) K21.9 [facility] [id number] [place] [address] 86939- 5968 Nov, Right ankle pain M25.571 [facility] [id number] [place] [address] 30682- 6673 Nov, Diabetes mellitus E11.9 [facility] [id number] [place] [address] 40669- 4199 Oct, [facility] [id number] [place] [address] 73817- 3685 Oct, [facility] [id number] [place] [address] 38451- 6555 Oct, [facility] [id number] [place] [address] 79234- 4295 Oct, Hyperkalemia E87.5 [facility] [id number] [place] [address] 75331- 3575 Oct, [facility] [id number] [place] [address] 57374- 8713 Oct, Hyperkalemia E87.5 [facility] [id number] [place] [address] 15841- 0618 Sep, [facility] [id number] [place] [address] 21062- 3631 Sep, [facility] [id number] [place] [address] 85635- 2674 Sep, [facility] [id number] [place] [address] 03878- 0159 Sep, [facility] [id number] [place] [address] 07367- 0652 Sep, Right ankle pain M25.571 [facility] [id number] [place] [address] 40325- 1273 Aug, Chronic kidney disease N18.9 [facility] [id number] [place] [address] 86644- 9538 Aug, [facility] [id number] [place] [address] 22012- 6818 Aug, Hyperkalemia E87.5 [facility] [address] 98969- 5900 Aug, [facility] [id number] [place] [address] 49487- 0719 Jul, [facility] [address] 22452- 3967 Jul, [facility] [id number] [place] [address] 10691- 1845 Jul, [facility] [id number] [place] [address] 92624- 1735 Jul, Diabetes mellitus E11.9 ; Encounter for immunization Z23 ; Hypertension I10 and Hyperkalemia E87.5 [facility] [id number] [place] [address] 52742- 5221 Jul, [facility] [id number] [place] [address] 45073- 5949 Jul, Hyperkalemia E87.5 [facility] [address] 14355- 6976 Jul, Hyperkalemia E87.5 [facility] [id number] [place] [address] 43303- 9844 Jun, [facility] [id number] [place] [address] 38855- 0488 Jun, [facility] [place] [facility] [address] [id number] [place] [address]- 6784 Jun, [facility] [place] [facility] [address] [id number] [place] [address]- 8834 Jun, [facility] [place] [facility] [address] [id number] [place] [address]- 8247 May, [facility] [place] [facility] [address] [id number] [place] [address]- 2518 May, [facility] [place] [facility] [address] [id number] [place] [address]- 2097 May, [facility] [place] [facility] [address] [facility] [id number] [place] [address]- 3226 May, Hyperkalemia 276.7 [facility] [place] [facility] [address] [facility] [id number] [place] [address]- 1077 May, [facility] [place] [facility] [address] [id number] [place] [address]- 3891 Apr, Hyperkalemia 276.7 [facility] [place] [facility] [address] [facility] [id number] [place] [address]- 2455 Apr, [facility] [place] [facility] [address] [facility] [id number] [place] [address]- 0498 Apr, [facility] [place] [facility] [address] [id number] [place] [address]- 6399 Apr, [facility] [place] [facility] [address] [id number], [place] [address]- 7379 Apr, [facility] [place] [facility] [address] [id number] [place] [address]- 0020 Apr, Hyperkalemia 276.7 [facility] [place] [facility] [address] [id number] [place] [address]- 9497 Apr, [facility] [place] [facility] [address] [facility] [id number], [place] [address]- 6163 Apr, [facility] [address], [place] [address]- 8745 Mar, [facility] [address], [place] [address]- 5692 Mar, Hyperkalemia 276.7 [facility] [address], [place] [address]- 4450 Mar, Hyperkalemia 276.7 [facility] [address], [place] [address] 2548 Mar, [facility] [address] [address]- 3613 Mar, [facility] [address], [place] [address]- 9126 Mar, [facility] [address] [address]- 7422 Mar, [facility] [address], [place] [address]- 1582 Mar, Anserine bursitis 726.61 [facility] [address], [place] [address]- 2897 Mar, Asthma 493.90 and Hyperkalemia 276.7 [facility] [address] [address]- 3845 Mar, [facility] [id number], [place] [address]- 7899 February, [facility] [address], [place] [address]- 0933 February, [facility] [address], [place] [address]- 3480 February, [facility] [id number] [address]- 6813 February, [facility] [place] [facility] [address] [id number] [place] [address]- 8305 February, [facility] [place] [facility] [address] [id number] [place] [address]- 1739 February, [facility] [place] [facility] [address] [id number] [place] [address]- 2896 February, [facility] [place] [facility] [address] [id number] [place] [address]- 3137 February, [facility] [place] [facility] [address] [id number] [place] [address]- 6063 February, [facility] [place] [facility] [address] [id number] [place] [address]- 9390 Jan, [facility] [place] [facility] [address] [id number] [place] [address]- 6147 Jan, [facility] [place] [facility] [address] [id number] [place] [address]- 9571 Dec, [facility] [place] [facility] [address] [id number] [place] [address]- 5689 Dec, [facility] [place] [facility] [address] [id number] [place] [address]- 1428 Dec, [facility] [place] [facility] [address] [id number] [place] [address]- 0189 Dec, [facility] [place] [facility] [address] [id number] [place] [address]- 7972 Dec, [facility] [place] [facility] [address] [id number] [place] [address]- 5787 Dec, [facility] [place] [facility] [address] [id number] [place] [address]- 3101 Dec, [facility] [place] [facility] [address] [id number] [place] [address]- 6374 Dec, [facility] [place] [facility] [address] [id number] [place] [address]- 5887 Dec, [facility] [place] [facility] [address] [id number] [place] [address]- 1941 Dec, [facility] [place] [facility] [address] [id number] [place] [address]- 9562 Dec, [facility] [place] [facility] [address] [facility] [id number] [place] [address]- 6082 Dec, [facility] [place] [facility] [address] [id number] [place] [address]- 1661 Dec, [facility] [place] [facility] [address] [id number] [place] [address]- 6696 Dec, [facility] [place] [facility] [address] [id number] [place] [address]- 2324 Nov, [facility] [place] [facility] [address] [id number] [place] [address]- 7745 Nov, [facility] [place] [facility] [address] [id number] [place] [address]- 6723 Nov, [facility] [place] [facility] [address] [id number] [place] [address]- 3600 Nov, [facility] [place] [facility] [address] [facility] [id number] [place] [address]- 3871 Nov, [facility] [place] [facility] [address] [facility] [id number] [place] [address]- 6638 Nov, [facility] [place] [facility] [address] [id number] [place] [address]- 6031 Oct, [facility] [place] [facility] [address] [id number] [place] [address]- 9055 Oct, [facility] [place] [facility] [address] [facility] [id number] [place] [address]- 8793 Oct, [facility] [place] [facility] [address] [facility] [id number] [place] [address]- 2401 Oct, [facility] [place] [facility] [address] [id number] [place] [address]- 5962 Oct, [facility] [place] [facility] [address] [id number] [place] 7849 Oct, [facility] [place] [facility] [address] [id number] [id number] [address] Sep, [facility] [place] [facility] [address] [id number] [place] [address] Sep, [facility] [place] [facility] [address] [id number] [place] [address] Sep, [facility] [place] [facility] [address] [id number] [place] [address] Sep, [facility] [place] [facility] [address] [id number] [place] [address] Sep, [facility] [place] [facility] [address] [id number] [place] [address] Sep, [facility] [place] [facility] [address] [id number] [place] [address] Aug, [facility] [place] [facility] [address] [id number] [place] [address] Aug, [facility] [place] [facility] [address] [id number] [place] [address] Aug, [facility] [place] [facility] [address] [id number] [place] [address] Aug, [facility] [place] [facility] [address] [id number] [place] [address] Aug, [facility] [place] [facility] [address] [id number] [place] [address] Aug, [facility] [place] [facility] [address] [id number] [place] [address] Jul, [facility] [place] [facility] [address] [id number] [place] [address] Jul, [facility] [place] [facility] [address] [id number] [place] [address] Jul, [facility] [place] [facility] [address] [id number] [place] [address] Jul, [facility] [place] [facility] [address] [id number] [place] [address] Jul, [facility] [place] [facility] [address] [id number] [place] [address] Jul, [facility] [place] [facility] [address] [id number] [place] [address] Jul, [facility] [place] [facility] [address] [id number] [place] [address] Jul, [facility] [place] [facility] [address] [id number] [place] [address] Jul, [facility] [place] [facility] [address] [id number] [place] [address] Jul, [facility] [place] [facility] [address] [id number] [place] [address] Jul, [facility] [place] [facility] [address] [id number], [place] [address] Jun, [facility] [place] [facility] [address] [id number], [place] [address] Jun, [facility] [place] [facility] [address] [id number], [place] [address] Jun, [facility] [place] [facility] [address] [id number] [place] [address] Jun, [facility] [place] [facility] [address] [id number], [place] [address] Apr, [facility] [place] [facility] [address] [id number] [address] Apr, [facility] [place] [facility] [address] [id number], [place] [address] Apr, [facility] [address] [id number], [place] [address] Apr, [facility] [address] [id number], [place] [address] Mar, [facility] [id number], [place] [address] Mar, [facility] [id number], [place] [address] Mar, [facility] [id number] [place] [address] Mar, [facility] [id number], [place] [address] Mar, [facility] [id number] [place] [address] Sep, [facility] [address] [id number], [place] [address] [id number] Sep, [facility] [id number], [place] [address] Aug, IMMUNIZATIONS Vaccine Route Administration Date Status FLUZONE HIGH DOSE (65 AND UP) 2016 IM Intramuscular Jul 15, 2017 Administered SOCIAL HISTORY Never Assessed REASON FOR VISIT Wound Care f/u. Had culture done from wound care clinic. No wound care appt scheduled at this time. will be scheduled based on this doctor visit. wants flu shot. Michael TOURE PLAN OF CARE Activity Details Follow Up 4 Months Reason: VITAL SIGNS Height 62 in 2017-07-15 Weight 155 lbs 2017-07-15 Temperature 98.5 degrees Fahrenheit 2017-07-15 Heart Rate 64 bpm 2017-07-15 Respiratory Rate 18 2017-07-15 BMI 28.35 kg/m2 2017-07-15 Blood pressure systolic 142 mmHg 2017-07-15 Blood pressure diastolic 78 mmHg 2017-07-15 MEDICATIONS Medication Instructions Dosage Frequency Start Date End Date Duration Status Levemir FlexTouch 100 unit/mL (3 mL) Subcutaneous Once a day 10 Units 24h 10 Jul, 2014 Active Vitamin D 2000 UNIT Orally twice a day 1 tablet 12h Active Ferrous Sulfate 325 (65 Fe) MG Orally Once a day 1 tablet 24h Active Glucometer ... subcutaneously one time Accu-check Nov, Active Multi Vitamin Daily Orally Once a day 1 tablet 24h Active Marie Contour Next Test - TEST BLOOD SUGAR THREE TIMES A DAY E11.9 30 Active Furosemide 40 mg Orally Once a day 2 tablet 24h 30 days Active Cinnamon 500 MG Active Atenolol 50 mg Orally Once a day 1 tablet 24h 30 Active Protonix 40 MG Orally Once a day 1 tablet 24h 13 Oct, 2014 Active Lphdggoq-RLL-7 0.1 MG/24HR Transdermal once weekly 1 patch to skin 28 Active Amitriptyline HCl 25 MG Orally hs 1-3 tablets PRN 30 Active Amlodipine Besylate 10 MG TAKE ONE TABLET BY MOUTH ONCE DAILY 30 Active ProAir HFA 108 (90 Base) MCG/ACT Inhalation every 4 hrs 2 puffs as needed 4h Mar, Active MiraLax 17 gram/dose Orally Once a day take 17 g mixed with 8 oz. water or juice by Oral route 1 time per day 24h 07 Aug, 2014 Active oxycodone 5 mg oral 4 times a day 1 tablet 6h 23 Dec, 2014 28 days Active Blood Glucose Test Test Strips subcutaneously 3 times a day check blood sugar 8h Nov, Active Test strips ... subcutaneously 3 times a day contour EZ Next 8h Jul, Active Lyrica 50 mg Orally 2 times a day 1 capsule 12h February, 30 days Active Wheelchair DX Non-healing right ankle fracture Jul, Active BD Insulin Syringe MicroFine 28G X 1/2 use with insulin 8h Jul, Active Zofran ODT 4 MG Orally every 8 hrs 1 tablet 8h 10 Active RESULTS Name Result Date Reference Range A1C (IN HOUSE) 2017-07-15 A1C IN HOUSE 6.1 4.3 - 5.6 % Previous A1c 6.4 Lot [id number] Exp date 02/2019 ESR/SED RATE 2017-07-15 Sedimentation Rate-Westergren 61 0-40 PROCEDURES Procedure Date Ordered Result Body Site [facility] Jul 15, 2017 GLYCATED HEMOGLOBIN TEST Jul 15, 2017 VENIPUNCT, ROUTINE* Jul 15, 2017 SINGLE IMMUNIZATION ADMIN Jul 15, 2017 FLUZONE HIGH DOSE 65 AND UP 2015Jul 15, 2017 INSTRUCTIONS MEDICATIONS ADMINISTERED No Known Medications MEDICAL [...]
--- OUTSIDE RECORDS SUMMARY | 2018-07-12 09:31 | XMS REPORT ---
Author Author OLYA WILLIS [facility] eClinicalWorks Address Unknown Phone Unavailable Care Team Providers Care Cost Accounting Manager Name Role Phone OLYA WILLIS CP Unavailable [...] Start Date End Date Status Dosage Furosemide [facility] [address]-38 40 MG Orally Once a day Oct 09, 2014 1 Results No Known Results Summary Purpose eClinicalWorks Submission
--- OUTSIDE RECORDS SUMMARY | 2018-07-12 09:32 | XMS REPORT ---
Author Author OLYA WILLIS [facility] eClinicalWorks Address Unknown Phone Unavailable Care Team Providers Care Ed Special Education Teacher Name Role Phone OLYA WILLIS CP Unavailable [...]
--- OUTSIDE RECORDS SUMMARY | 2018-07-12 09:32 | XMS REPORT ---
Author Author OLYA WILLIS [facility] eClinicalWorks Address Unknown Phone Unavailable Care Team Providers Care Instrument Sterilizer Name Role Phone OLYA WILLIS CP Unavailable [...]
--- OUTSIDE RECORDS SUMMARY | 2018-07-12 09:32 | XMS REPORT ---
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 Active 493079941 Problem Gastroparesis K31.84 Active 170339172 Problem Diabetic polyneuropathy associated with type 2 diabetes mellitus E11.42 Active 08976245 Problem Paresthesias R20.2 Active 67528230 Problem GERD (gastroesophageal reflux disease) K21.9 Active 543332696 Problem Venous insufficiency I87.2 Active 98262107 ALLERGIES Substance Reaction Event Type Date Status Sulfacetamide Sodium Unknown Drug Allergy Nov, Active Plavix caused bleeding Drug Allergy Nov, Active Neurontin Makes her disoriented Drug Allergy Nov, Active Lyrica Unknown Drug Allergy Nov, Active SOCIAL HISTORY Never Assessed PLAN OF CARE Activity Details Follow Up 3 Months Reason: VITAL SIGNS Height 62 in 2016-12-01 Weight 181.3 lbs 2016-12-01 Temperature 98.3 degrees Fahrenheit 2016-12-01 Heart Rate 62 bpm 2016-12-01 Respiratory Rate 18 2016-12-01 BMI 33.16 kg/m2 2016-12-01 Blood pressure systolic 166 mmHg 2016-12-01 Blood pressure diastolic 54 mmHg 2016-12-01 MEDICATIONS Medication Instructions Dosage Frequency Start Date End Date Duration Status Test strips ... subcutaneously 3 times a day contour EZ Next 8h Jul, Active Wheelchair DX Non-healing right ankle fracture Jul, Active Atenolol 50 MG TAKE ONE TABLET BY MOUTH ONCE DAILY 30 Active Reglan 10 mg Orally 4 times a day, ac and hs 1 Nov, Active Protonix 40 MG Orally Once a day 1 tablet 24h 13 Oct, 2014 Active Glucometer ... subcutaneously one time Accu-check Nov, Active Vitamin D 2000 UNIT Orally twice a day 1 tablet 12h Active Multi Vitamin Daily Orally Once a day 1 tablet 24h Active Marie Contour Next Test - TEST BLOOD SUGAR THREE TIMES A DAY E11.9 30 Active Furosemide 40 MG Orally Once a day 1 tablet 24h 30 Active Cinnamon 500 MG Active Ynsvlldo-WVP-3 0.1 MG/24HR Transdermal once weekly 1 patch to skin Sep Active Amlodipine Besylate 10 MG TAKE ONE TABLET BY MOUTH ONCE DAILY 30 Active Blood Glucose Test Test Strips subcutaneously 3 times a day check blood sugar 8h Nov, Active Amitriptyline HCl 25 MG Orally hs 1-3 tablets PRN 30 Active Levemir FlexTouch 100 unit/mL (3 mL) Subcutaneous Once a day 10 Units 24h Jul, Active BD Insulin Syringe MicroFine 28G X 1/2 use with insulin 8h Jul, Active Pantoprazole Sodium 40 MG TAKE ONE TABLET BY MOUTH ONCE DAILY 30 Active Zofran ODT 4 MG Orally every 8 hrs 1 tablet 8h 30 Sep, 2014 Active MiraLax 17 gram/dose Orally Once a day take 17 g mixed with 8 oz. water or juice by Oral route 1 time per day 24h Aug, Active oxycodone 5 mg oral 4 times a day 1 tablet 6h Dec, Active RESULTS Name Result Date Reference Range A1C (IN HOUSE) 2016-12-01 A1C IN HOUSE 6.5 4.3 - 5.6 % Previous A1c 7.1 Lot [id number] Exp date 08/2018 PROCEDURES Procedure Date Ordered Result Body Site GLYCATED HEMOGLOBIN TEST Dec 01, 2016 IMMUNIZATIONS No Known Immunizations MEDICAL (GENERAL) HISTORY [...]
--- OUTSIDE RECORDS SUMMARY | 2018-07-12 09:32 | XMS REPORT ---
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 Name Role Phone OLYA WILLIS CP Unavailable Allergies No Known Allergies Problems Problem Type Condition Code Onset Dates Condition Status Problem Diabetic polyneuropathy associated with type 2 diabetes mellitus E11.42 Active Problem Paresthesias R20.2 Active Problem Venous insufficiency I87.2 Active Problem Hypertension I10 Active Problem Chronic kidney disease N18.9 Active Problem Diabetes mellitus E11.9 Active Medications Medication Code System Code Instructions Start Date End Date Status Dosage Oxycodone HCl [facility] [id number] 5 MG TAKE ONE TABLET BY MOUTH FOUR TIMES DAILY Levemir FlexTouch [facility] [address]-79 100 unit/mL (3 mL) Subcutaneous Once a day Aug 03, 2014 10 Units Results No Known Results Summary Purpose eClinicalWorks Submission
--- OUTSIDE RECORDS SUMMARY | 2018-07-12 09:32 | XMS REPORT ---
Author Author OLYA WILLIS [facility] eClinicalWorks Address Unknown Phone Unavailable Care Team Providers Care Editorial Clerk Name Role Phone OLYA WILLIS CP [...]
--- NOTE | 2018-07-12 09:41 | Diagnostic Imaging Report ---
Indication: Altered mental status. Axial imaging through the brain was performed without contrast. Correlation is made with prior head CT from 11/12/2013. Ventricles and sulci are within normal limits. No sulcal effacement, midline shift or hemorrhage is detected. The cisterns are patent. The visualized paranasal sinuses are clear. Impression: No acute intracranial process is detected. Results were called to Dr. Shah of the emergency department prior to this dictation. Dictated by: Dictated on workstation # [id number]
--- NOTE | 2018-07-12 09:42 | Diagnostic Imaging Report ---
Indication: Possible stroke. Comparison is made with prior chest radiograph from 11/11/2016. The heart is enlarged but stable. A right sided dialysis catheter has been placed has tip overlying the right atrium. Patient has developed infiltrates in the right base as well as a moderate right effusion. The left lung is clear. No pneumothorax is seen. Postop changes of left shoulder arthroplasty are seen. IMPRESSION: Development of right-sided pulmonary infiltrates and moderate right pleural effusion since study from 11/11/2016. Dictated by: Dictated on workstation # [id number]
[2018-07-12 09:48] LABS: ALANINE AMINOTRANSFERASE 8 U/L (0-55); ALBUMIN 3.4 GM/DL (3.2-4.5); ALKALINE PHOSPHATASE 76 U/L (40-136); BILIRUBIN,TOTAL 0.4 MG/DL (0.1-1.0); BUN/CREATININE RATIO 7; CALCIUM 9.1 MG/DL (8.5-10.1); CARBON DIOXIDE 31 MMOL/L (21-32); CHLORIDE 95 MMOL/L (98-107); CREATININE SERUM 4.04 MG/DL (0.60-1.30); GFR ESTIMATED 11; GLUCOSE 149 MG/DL (70-105); POTASSIUM 4.3 MMOL/L (3.6-5.0); SODIUM 137 MMOL/L (135-145); TOTAL PROTEIN 6.8 GM/DL (6.4-8.2)
[2018-07-12 09:53] LABS: FIBRIN DEGRADATION PRODUCTS 9.39 UG/ML (0.00-0.49); INR 1.2 (0.8-1.4); PROTHROMBIN TIME PATIENT 14.8 SEC (12.2-14.7)
[2018-07-12] MEDS ORDERED: CEFEPIME INJECTION 2,000 MG in NS (IVPB) 50 ML IV ONE (10:15)
[2018-07-12] MEDS ORDERED: RT-ALBUTEROL/IPRATROPIUM 3 ML (DUONEB) VIAL INH ONE (10:30)
--- NOTE | 2018-07-12 11:04 | ED Neurological Problem ---
General Chief Complaint: Neuro-Stroke Like Symptoms Source: patient, family, other (dialysis Center) Exam Limitations: no limitations History of Present Illness Date Seen by Provider: Jul 12, 2018 Time Seen by Provider: 09:00 Initial Comments This 73-year-old woman presents to the emergency room from dialysis where she was experiencing some altered mental status and appeared to have some near syncopal episodes. Dialysis staff became concerned and ended her dialysis early. They referred her to the ER. Patient arrives via private vehicle with a male significant other. Fingerstick blood sugar was 151 on arrival. The dialysis center reports it was 174. Last known well time was around 07:30. Stroke activation was paged after blood sugar was checked. Initial NIH stroke score was 3 for numbness on the left side and difficulty with eye tracking. Patient is alert and oriented but cognition appears dull. Patient has end- stage renal failure on dialysis and is a diabetic. Allergies and Home Medications Allergies Coded Allergies: lisinopril (Verified Allergy, Mild, 12/29/16) sulfamethoxazole (Verified Allergy, Mild, 12/29/16) trimethoprim (Verified Allergy, Mild, 12/29/16) vancomycin (Verified Allergy, Mild, 12/29/16) clopidogrel (Unverified Allergy, Unknown, BLEEDING, 04/24/16) gabapentin (Unverified Allergy, Unknown, 04/24/16) Home Medications Amitriptyline HCl 25 Mg Tablet, 75 MG PO HS, (Reported) TAKES 3 (25 MG) TABLETS Amlodipine Besylate 10 Mg Tablet, 10 MG PO HS, (Reported) Atenolol 50 Mg Tablet, 50 MG PO DAILY, (Reported) Atorvastatin Calcium 10 Mg Tablet, 10 MG PO HS Prescribed by: URMILA SUTHERLAND on 11/15/16 1008 Cholecalciferol (Vitamin D3) 2,000 Unit Capsule, 2,000 UNIT PO BID, (Reported) Cinnamon Bark 500 Mg Capsule, 500 MG PO BID, (Reported) Doxycycline Monohydrate 100 Mg Capsule, 100 MG PO BID, (Reported) Furosemide 40 Mg Tablet, 40 MG PO BID, (Reported) Insulin Detemir 100 U/Ml Vial, 10 U SQ HS, (Reported) Multivitamin 1 Each Tablet, 1 TAB PO DAILY, (Reported) Oxycodone Hcl 5 Mg Tablet, 5-10 MG PO QID PRN for PAIN, (Reported) TAKES 1-2 (5 MG) TABLETS, NO MORE THAN 4 TABS PER 24HR Pantoprazole Sod 40 Mg Tab, 40 MG PO DAILY, (Reported) Sennosides/Docusate Sodium 1 Each Tablet, 1 TAB PO BID, (Reported) Patient Home Medication List Home Medication List Reviewed: Yes Review of Systems Review of Systems Constitutional: no symptoms reported Eyes: No Symptoms Reported Ears, Nose, Mouth, Throat: no symptoms reported Respiratory: see HPI Cardiovascular: no symptoms reported Gastrointestinal: no symptoms reported Genitourinary: no symptoms reported : No Musculoskeletal: no symptoms reported Skin: no symptoms reported Psychiatric/Neurological: See HPI Endocrine: No Symptoms Reported Hematologic/Lymphatic: No Symptoms Reported Past Xdqtdxl-Jzxtde-Hghusb Hx Past Med/Social Hx: Reviewed and Corrections made Patient Social History Alcohol Use: Denies Use Recreational Drug Use: No Smoking Status: Former Smoker Type Used: Cigarettes Former Smoker, Quit: Oct 25, 1980 2nd Hand Smoke Exposure: No Recent Hopitalizations: No (hysterectomy 2005) Physical Abuse: No Sexual Abuse: No Mistreated: No Fear: No Immunizations Up To Date Tetanus Booster (TDap): Unknown PED Vaccines UTD: No Date of Pneumonia Vaccine: Jun 25, 2014 Date of Influenza Vaccine: Jul 25, 2016 Seasonal Allergies Seasonal Allergies: No Past Medical History Surgeries: Yes (c-sectionsx2, cholesectomy, carpel tunnel releasex2, hysterectomy, caract r) Eye Surgery, Gallbladder, Hysterectomy, Oophorectomy, Orthopedic, Vascular Surgery Respiratory: Yes Asthma Cardiac: Yes (NEAR SYNCOPAL EPISODES) Chronic Edema/Swelling, High Cholesterol, Hypertension, Peripheral Vascular Neurological: Yes (NEUROPATHY IN HANDS, FEET AND LEGS; STROKE WITH RIGHT ARM WEAKNESS) Neuropathy, Stroke 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 Disorders: Yes (2 MISCARRIAGES) Female 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: Hysterectomy, Menopausal Sexually Transmitted Disease: No Kidney Infection, Renal Failure, Dialysis Gastrointestinal: Yes Gastroesophageal Reflux Musculoskeletal: Yes Osteoporosis, Arthritis, Chronic Back Pain, Fractures Endocrine: Yes Diabetes, Insulin dep Cataract, Double Vision Hearing Impairment: Denies Cancer: Yes Melanoma Psychosocial: Yes Anxiety, Depression Integumentary: Yes (CHRONIC WOUND RIGHT FOOT/ANKLE) Blood Disorders: No Adverse Reaction/Blood Tranf: No Family Medical History Reviewed Nursing Family Hx Cancer G8 SISTER (breast cancer) Cataract 19 MOTHER Dementia 19 MOTHER Family history: Breast disease G8 SISTER (breast cancer) Family history: Diabetes mellitus 19 FATHER G8 SISTER Heart disease 19 MOTHER Parkinson's disease 19 MOTHER Physical Exam Vital Signs Vital Signs - First Documented 07/12/18 07/12/18 09:02 09:45 Temp 98.4 Pulse 52 Resp 20 B/P (MAP) 108/52 (70) Pulse Ox 95 O2 Delivery Room Air O2 Flow Rate 2.00 Capillary Refill : Height, Weight, BMI Height: 5'2.00" Weight: 160lbs. 0.0oz. 72.726807wx; 29.3 BMI Method:Stated General Appearance: WD/WN, no apparent distress HEENT: normal ENT inspection, other (oropharynx somewhat dry. 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, alert, normal mood/affect, oriented x 3, sensory deficit (numbness with pinprick on the left foot and left hand) Crainal Nerves: normal hearing, normal speech, PERRL, other (patient initially had difficulty tracking with the H test) Coordination/Gait: normal finger to nose Motor/Sensory: no motor deficit, other (range of motion in the left arm is limited due to rotator cuff injury) Skin: normal color, warm/dry Stroke NIH Stroke Scale Assessment Level of Consciousness: 0=Alert (0), Level of Consciousness-Questions: 0= Answers both month/age (0), LOC Commands: 0=Performs both tasks (0), Gaze: Partial Gaze Palsy (1), Visual Allen: 0=No visual loss (0), Facial Movement ( Facial Paresis): 0=Normal symmetrical mnt (0), Motor Function-Arms Right: 0=No drift (0), Motor Function-Arms Left: 0=No drift (0), Motor Function-Legs Right: 0=No drift (0), Motor Function-Legs Left: 0=No drift (0), Limb Ataxia: 0=Absent (0), Sensory: 2=Severe to total loss (2), Best Language: 0=No aphasia (0), Dysarthria: 0=Normal (0), Extinction & Inattention: 0=No abnormality (0), Total : 3 Focused Exam Lactate Level 07/12/18 10:20: Lactic Acid Level 1.43 Lactic Acid Level Laboratory Tests Test 07/12/18 10:20 Lactic Acid Level 1.43 MMOL/L (0.50-2.00) Progress/Results/Core Measures Results/Orders Lab Results Laboratory Tests Test 07/12/18 09:09 07/12/18 09:20 07/12/18 10:20 Range/Units Glucometer 151 H 70-110 MG/DL White Blood Count 11.9 H 4.3-11.0 10^3/uL Red Blood Count 2.93 L 4.35-5.85 10^6/uL Hemoglobin 8.8 L 11.5-16.0 G/DL Hematocrit 27 L 35-52 % Mean Corpuscular Volume 93 80-99 FL Mean Corpuscular Hemoglobin 30 25-34 PG Mean Corpuscular Hemoglobin Concent 33 32-36 G/DL Red Cell Distribution Width 14.3 10.0-14.5 % Platelet Count 256 130-400 10^3/uL Mean Platelet Volume 9.9 7.4-10.4 FL Neutrophils (%) (Auto) 73 42-75 % Lymphocytes (%) (Auto) 16 12-44 % Monocytes (%) (Auto) 8 0-12 % Eosinophils (%) (Auto) 2 0-10 % Basophils (%) (Auto) 0 0-10 % Neutrophils # (Auto) 8.7 H 1.8-7.8 X 10^3 Lymphocytes # (Auto) 2.0 1.0-4.0 X 10^3 Monocytes # (Auto) 1.0 0.0-1.0 X 10^3 Eosinophils # (Auto) 0.3 0.0-0.3 10^3/uL Basophils # (Auto) 0.0 0.0-0.1 10^3/uL Prothrombin Time 14.8 H 12.2-14.7 SEC INR Comment 1.2 0.8-1.4 Activated Partial Thromboplast Time 66 H 24-35 SEC D-Dimer 9.39 H 0.00-0.49 UG/ML Sodium Level 137 135-145 MMOL/L Potassium Level 4.3 3.6-5.0 MMOL/L Chloride Level 95 L 98-107 MMOL/L Carbon Dioxide Level 31 21-32 MMOL/L Anion Gap 11 5-14 MMOL/L Blood Urea Nitrogen 30 H 7-18 MG/DL Creatinine 4.04 H 0.60-1.30 MG/DL Estimat Glomerular Filtration Rate 11 BUN/Creatinine Ratio 7 Glucose Level 149 H 70-105 MG/DL Calcium Level 9.1 8.5-10.1 MG/DL Corrected Calcium 9.6 8.5-10.1 MG/DL Total Bilirubin 0.4 0.1-1.0 MG/DL Aspartate Amino Transf (AST/SGOT) 9 5-34 U/L Alanine Aminotransferase (ALT/SGPT) 8 0-55 U/L Alkaline Phosphatase 76 40-136 U/L Troponin I < 0.30 <0.30 NG/ML Total Protein 6.8 6.4-8.2 GM/DL Albumin 3.4 3.2-4.5 GM/DL Lactic Acid Level 1.43 0.50-2.00 MMOL/L My Orders Orders - NATTY BUTCHER MD Cbc With Automated Diff (07/12/18:18) Protime With Inr (07/12/18:18) Partial Thromboplastin Time (07/12/18:18) Comprehensive Metabolic Panel (07/12/18:18) Fibrin Degradation Products (07/12/18:18) Troponin I (07/12/18 09:18) Chest 1 View, Ap/Pa Only (07/12/18:18) Ekg Tracing (07/12/18:18) Nothing By Mouth (07/12/18 Lunch) Accucheck Stat ONCE (07/12/18:18) Saline Lock/Iv-Start (07/12/18:18) Saline Lock/Iv-Start (07/12/18 09:18) Vital Signs Stroke Patient Q15M (07/12/18 09:18) Ct Head Wo-R/O Stroke (07/12/18:18) O2 (07/12/18 09:18) Intake & Output 06,14,22 (07/12/18 09:18) Monitor-Rhythm Ecg Trace Only (07/12/18:18) Dysphagia Screening Tool (07/12/18:18) Post Thrombolytic Adminstratio (07/12/18 09:18) Blood Culture (07/12/18 10:07) Lactic Acid Analyzer (07/12/18 10:07) Cefepime Injection (Maxipime Injection) (07/12/18 10:15) Albuterol/Ipra Inhalation Soln (Duoneb I (07/12/18 10:30) Svn Small Volume Nebulizer (07/12/18 10:23) Medications Given in ED Current Medications Medications Dose Ordered Sig/Jericho Route Start Time Stop Time Status Last Admin Dose Admin Albuterol/ Ipratropium 3 ml ONCE ONCE INH 07/12/18 10:30 07/12/18 10:31 DC 07/12/18 10:29 3 ML Cefepime HCl 2000 mg/Sodium Chloride 50 ml @ 100 mls/hr ONCE ONCE IV 07/12/18 10:15 07/12/18 10:44 DC 07/12/18 10:45 100 MLS/HR Vital Signs/I&O 07/12/18 07/12/18 07/12/18 07/12/18 09:02 09:45 10:29 12:58 Temp 98.4 97.6 Pulse 52 46 Resp 20 16 B/P (MAP) 108/52 (70) 117/90 Pulse Ox 95 94 99 98 O2 Delivery Room Air Room Air Nasal Cannula Nasal Cannula O2 Flow Rate 2.00 2.00 2.00 FSBG Bedside Testing Finger Stick Blood Glucose: 151 Blood Glucose Action Taken: Notified MD, no action needed. Progress Progress Note #1: Time: 11:00 Progress Note Stroke activation was paged during initial assessment. Patient's blood sugar was 174 at dialysis. Patient is alert and oriented but cognition seems dulled. NIH stroke score was 3 for deficits of numbness with pinprick on the left hand and left ankle as well as some difficulty with eye tracking. The rest of the neuro exam was unremarkable. Patient was found to have a right lower lung infiltrate suspicious for pneumonia. She has a mild elevation in WBC as well. Patient did have some intermittent episodes of hypoxia with oxygen saturations in the mid 80s. Oxygen was applied by nasal cannula which seemed to improve her cognition as well. Blood cultures, lactic acid, and 2 g of cefepime were ordered for initial management of suspected pneumonia. A DuoNeb treatment was also administered. 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 Patient stated she was unwilling to be transferred. I discussed the case with Dr. Monk who declines admission at [facility] due to need for nephrology and dialysis services. Patient is discussing with family in reconsidering her decision at this time. Case was discussed with Dr. Silvestre, stroke neurologist at [facility], who agreed with no administration of TPA and conservative management. Patient was not felt to be a TPA candidate due to low NIH stroke score with mild deficits which are likely secondary to neuropathy, acute infection and hypoxia. Patient has had mild bradycardia in the upper 40s and lower 50s that has not required treatment. After pneumonia was discovered, patient did admit she has had some difficulty breathing the last couple of days. Progress Note #2: Time: 12:52 Progress Note Transfer arrangements have been made with the [facility]. Patient did eventually consent to transfer after discussing with family. EKG #1: EKG Time: 09:19 Rate: 52 Rhythm: S.Nilesh ECG Impression: Sinus Bradycardia Comment Borderline sinus bradycardia with no ST elevation or depression. No abnormal interval or axis deviation. EKG #2: EKG Time: 09:50 Rate: 48 Rhythm: S.Nilesh ECG Impression: Sinus Bradycardia Comment Sinus bradycardia with no ST elevation or depression. No abnormal intervals or axis deviation. Diagnostic Imaging Diagonstic Imaging: Xray Plain Films/CT/US/NM/MRI: chest Comments Chest x-ray viewed by me and report reviewed. See report below: NAME: NAKUL MILLER [facility] REC#: [id number] PT STATUS: REG ER : 1945 PHYSICIAN: NATTY BUTCHER MD ADMIT DATE: 07/12/18/ER Draft Date of Exam:07/12/18 CHEST 1 VIEW, AP/PA ONLY Indication: Possible stroke. Comparison is made with prior chest radiograph from 11/11/2016. The heart is enlarged but stable. A right sided dialysis catheter has been placed has tip overlying the right atrium. Patient has developed infiltrates in the right base as well as a moderate right effusion. The left lung is clear. No pneumothorax is seen. Postop changes of left shoulder arthroplasty are seen. IMPRESSION: Development of right-sided pulmonary infiltrates and moderate right pleural effusion since study from 11/11/2016. Dictated on workstation # [id number] Dict: 07/12/18 0939 Trans: 07/12/18 0941 [facility] [id number] Interpreted by: PANDA ZHANG MD Diagonstic Imaging: CT Plain Films/CT/US/NM/MRI: head Comments CT head viewed by me and report reviewed. See report below: NAME: NAKUL MILLER [facility] REC#: [id number] PT STATUS: REG ER : 1945 PHYSICIAN: NATTY BUTCHER MD ADMIT DATE: 07/12/18/ER Draft Date of Exam:07/12/18 CT HEAD WO-R/O STROKE Indication: Altered mental status. Axial imaging through the brain was performed without contrast. Correlation is made with prior head CT from 11/12/2013. Ventricles and sulci are within normal limits. No sulcal effacement, midline shift or hemorrhage is detected. The cisterns are patent. The visualized paranasal sinuses are clear. Impression: No acute intracranial process is detected. Results were called to Dr. Shah of the emergency department prior to this dictation. Dictated on workstation # [id number] Dict: 07/12/18 0936 Trans: 07/12/18 0940 [facility] [id number] Interpreted by: PANDA ZHANG MD Departure Impression Primary Impression: Right lower lobe pneumonia Qualified Codes: J18.1 - Lobar pneumonia, unspecified organism Additional Impressions: Hypoxia Altered mental status Qualified Codes: R41.82 - Altered mental status, unspecified Bradycardia Anemia Qualified Codes: D64.9 - Anemia, unspecified Disposition: 02 XFER SHT-TRM HOSP Condition: Improved Transfer Time Spoke to Accepting Phy: 11:50 Transfer Time: 13:00 Transfer Facility: [facility] Transfer accepted by Dr. Kong. Method of Transfer: EMS Departure-Patient Inst. Referrals: OLYA WILLIS MD (PCP/Family) Primary Care Physician NATTY BUTCHER MD Jul 12, 2018 11:04
[2018-07-12 12:58] VITALS: BP 117/90
== END 2018-07-12 12:54 | disposition short-term general hospital (02) ==
LOC: EDUNIT# 08:58 → ER 08:59
DX: J18.1 Lobar pneumonia, unspecified organism (principal); R41.82 Altered mental status, unspecified; D64.9 Anemia, unspecified; R00.1 Bradycardia, unspecified; J45.909 Unspecified asthma, uncomplicated; E78.00 Pure hypercholesterolemia, unspecified; E11.22 Type 2 diabetes mellitus with diabetic chronic kidney disease; I12.0 Hypertensive chronic kidney disease with stage 5 chronic kidney disease or end stage renal disease; N18.6 End stage renal disease; F41.9 Anxiety disorder, unspecified; F32.9 Major depressive disorder, single episode, unspecified; I73.9 Peripheral vascular disease, unspecified; K21.9 Gastro-esophageal reflux disease without esophagitis; M81.0 Age-related osteoporosis without current pathological fracture; Z85.820 Personal history of malignant melanoma of skin; Z80.3 Family history of malignant neoplasm of breast; Z82.49 Family history of ischemic heart disease and other diseases of the circulatory system; Z87.448 Personal history of other diseases of urinary system; Z87.59 Personal history of other complications of pregnancy, childbirth and the puerperium; Z99.2 Dependence on renal dialysis; Z86.73 Personal history of transient ischemic attack (TIA), and cerebral infarction without residual deficits; Z88.2 Allergy status to sulfonamides; Z79.02 Long term (current) use of antithrombotics/antiplatelets; Z88.8 Allergy status to other drugs, medicaments and biological substances; Z88.0 Allergy status to penicillin; Z88.6 Allergy status to analgesic agent; Z79.4 Long term (current) use of insulin; Z87.891 Personal history of nicotine dependence; Z90.710 Acquired absence of both cervix and uterus; Z90.49 Acquired absence of other specified parts of digestive tract
CPT/HCPCS: 36415; 70450; 71045; 80053; 82962; 83605; 84484; 85025; 85379; 85610; 85730; 87040; 93005; 93041; 94640; 96374

== ENCOUNTER 2019-06-23 09:37 | Outpatient (RCR) | payer MEDICARE, OTHER ==
[~2019-06-23 09:37] MED LIST changes: +SENN-229 PO; -SENN1TAB7 PO
== END 2019-06-26 | disposition home or self-care (01) ==
PROVIDERS: ATTEND Nurse Practitioner Community Health
DX: E11.42 Type 2 diabetes mellitus with diabetic polyneuropathy (principal)

== ENCOUNTER 2019-08-23 11:18 | Outpatient (RCR) | payer MEDICARE, OTHER | END 2019-08-23 13:06 | disposition home or self-care (01) | PROVIDERS: ATTEND Nurse Practitioner Community Health | DX: E11.42 Type 2 diabetes mellitus with diabetic polyneuropathy (principal) ==

== ENCOUNTER 2020-04-01 14:25 | Emergency (ER) | payer MEDICARE ==
[~2020-04-01] VITALS: Ht 155 cm; Wt 68.5 kg
--- NOTE | 2020-04-01 14:40 | Diagnostic Imaging Report ---
PROCEDURE: CT head wo r/o stroke. TECHNIQUE: Multiple contiguous axial images were obtained through the brain without the use of intravenous contrast. Auto Exposure Controls were utilized during the CT exam to meet ALARA standards for radiation dose reduction. INDICATION: Stroke. Weakness. Decreased level of consciousness. COMPARISON: CT head on 07/12/2018. FINDINGS: No large acute territorial ischemia, mass, or hemorrhage. Chronic microvascular disease is seen in the periventricular and subcortical white matter. The ventricles and cortical sulci are prominent, consistent with generalized volume loss. The basilar cisterns are patent and unremarkable. The calvarium is intact. The visualized paranasal sinuses are clear. IMPRESSION: 1. No large acute territorial ischemia, mass, or hemorrhage. 2. Chronic microvascular disease. 3. Generalized parenchymal volume loss. Dictated by: Dictated on workstation # [id number]
[2020-04-01 15:08] LABS: BASOPHILS % (AUTO) 0 % (0-10); EOSINOPHILS # (AUTO) 0.2 10^3/uL (0.0-0.3); EOSINOPHILS % (AUTO) 1 % (0-10); HEMATOCRIT 36 % (35-52); HEMOGLOBIN 11.3 G/DL (11.5-16.0); LYMPHOCYTES # (AUTO) 0.7 X 10^3 (1.0-4.0); LYMPHOCYTES % (AUTO) 4 % (12-44); MEAN CORPUSCULAR HEMOGLOBIN 29 PG (25-34); MEAN CORPUSCULAR HGB CONC 31 G/DL (32-36); MEAN CORPUSCULAR VOLUME 94 FL (80-99); MONOCYTES # (AUTO) 1.3 X 10^3 (0.0-1.0); MONOCYTES % (AUTO) 9 % (0-12); NEUTROPHILS # (AUTO) 13.4 X 10^3 (1.8-7.8); NEUTROPHILS % (AUTO) 86 % (42-75); PLATELET COUNT 269 10^3/uL (130-400); RED CELL DISTRIBUTION WIDTH 16.6 % (10.0-14.5); WHITE BLOOD COUNT 15.6 10^3/uL (4.3-11.0)
--- NOTE | 2020-04-01 15:12 | ED General ---
General Chief Complaint: Neuro-Stroke Like Symptoms Stated Complaint: STROKE Source of Information: Patient, EMS Exam Limitations: No Limitations History of Present Illness Date Seen by Provider: Apr 01, 2020 Time Seen by Provider: 14:33 Initial Comments Here by EMS with report of acute altered mental status. Apparently had gone out with the boyfriend and were going to the store when she had mental status changes. Fire department was called to help get her out of the car and noticed that she was not acting right and EMS was summoned. Onset about 1:30 PM. He is on dialysis on Wednesday, and Wednesday and is due for dialysis tomorrow. After arrival, patient noted to be febrile. She is answering questions but seems intermittently confused. Has swelling of the right leg that she states is chronic and has a wound on her right foot. Has had some cough. Was supposed to get a chest x-ray for possible pneumonia and she has not done that. Reports that she has not really traveled anywhere except for to the store and on dialysis recently. Denies nausea or vomiting. Denies being short of breath currently but is requiring oxygen. States that she is not normally on oxygen at home. Timing/Duration: 1-3 Hours Severity: Moderate Associated Systoms: No Chest Pain; Cough (occasional), Fever/Chills, Loss of Appetite; No Nausea/Vomiting; Shortness of Air, Weakness Allergies and Home Medications Allergies Coded Allergies: lisinopril (Verified Allergy, Mild, 12/29/16) sulfamethoxazole (Verified Allergy, Mild, 12/29/16) trimethoprim (Verified Allergy, Mild, 12/29/16) vancomycin (Verified Allergy, Mild, 12/29/16) clopidogrel (Unverified Allergy, Unknown, BLEEDING, 04/24/16) gabapentin (Unverified Allergy, Unknown, 04/24/16) Home Medications Amitriptyline HCl 25 Mg Tablet, 75 MG PO HS, (Reported) TAKES 3 (25 MG) TABLETS Amlodipine Besylate 10 Mg Tablet, 10 MG PO HS, (Reported) Atenolol 50 Mg Tablet, 50 MG PO DAILY, (Reported) Atorvastatin Calcium 10 Mg Tablet, 10 MG PO HS Prescribed by: URMILA SUTHERLAND on 11/15/16 1008 Cholecalciferol (Vitamin D3) 2,000 Unit Capsule, 2,000 UNIT PO BID, (Reported) Cinnamon Bark 500 Mg Capsule, 500 MG PO BID, (Reported) Doxycycline Monohydrate 100 Mg Capsule, 100 MG PO BID, (Reported) Furosemide 40 Mg Tablet, 40 MG PO BID, (Reported) Insulin Detemir 100 U/Ml Vial, 10 U SQ HS, (Reported) Multivitamin 1 Each Tablet, 1 TAB PO DAILY, (Reported) Oxycodone Hcl 5 Mg Tablet, 5-10 MG PO QID PRN for PAIN, (Reported) TAKES 1-2 (5 MG) TABLETS, NO MORE THAN 4 TABS PER 24HR Pantoprazole Sod 40 Mg Tab, 40 MG PO DAILY, (Reported) Sennosides/Docusate Sodium 1 Each Tablet, 1 TAB PO BID, (Reported) Patient Home Medication List Home Medication List Reviewed: Yes Review of Systems Review of Systems Constitutional: see HPI EENTM: No nose congestion, No throat pain Respiratory: cough, dyspnea on exertion, short of breath Cardiovascular: No chest pain; edema Gastrointestinal: No abdominal pain, No diarrhea, No vomiting Genitourinary: other (reports low output) Musculoskeletal: back pain, joint pain, muscle pain Psychiatric/Neurological: Denies Headache; Other (confusion) Past Klccybu-Ngpeab-Mefphx Hx Past Med/Social Hx: Reviewed Nursing Past Med/Soc Hx Patient Social History Alcohol Use: Denies Use Recreational Drug Use: No Smoking Status: Former Smoker Type Used: Cigarettes Former Smoker, Quit: Oct 25, 1980 2nd Hand Smoke Exposure: No Recent Hopitalizations: No (hysterectomy 2005) Immunizations Up To Date Tetanus Booster (TDap): Unknown PED Vaccines UTD: No Date of Pneumonia Vaccine: Jun 25, 2014 Date of Influenza Vaccine: Jul 25, 2016 Seasonal Allergies Seasonal Allergies: No Past Medical History Surgeries: Yes (c-sectionsx2, cholesectomy, carpel tunnel releasex2, hysterectomy, caract r) Eye Surgery, Gallbladder, Hysterectomy, Oophorectomy, Orthopedic, Vascular Surgery Respiratory: Yes Asthma Cardiac: Yes (NEAR SYNCOPAL EPISODES) Chronic Edema/Swelling, High Cholesterol, Hypertension, Peripheral Vascular Neurological: Yes (NEUROPATHY IN HANDS, FEET AND LEGS; STROKE WITH RIGHT ARM WEAKNESS) Neuropathy, Stroke 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 Disorders: Yes (2 MISCARRIAGES) Female 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 Disorders: 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, 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 Sexually Transmitted Disease: No Kidney Infection, Renal Failure, Dialysis Gastrointestinal: Yes Gastroesophageal Reflux Musculoskeletal: Yes Osteoporosis, Arthritis, Chronic Back Pain, Fractures Endocrine: Yes Diabetes, Insulin dep Cataract, Double Vision Hearing Impairment: Denies Cancer: Yes Melanoma Psychosocial: Yes Anxiety, Depression Integumentary: Yes (CHRONIC WOUND RIGHT FOOT/ANKLE) Blood Disorders: No Adverse Reaction/Blood Tranf: No Family Medical History Reviewed Nursing Family Hx Cancer G8 SISTER (breast cancer) Cataract 19 MOTHER Dementia 19 MOTHER Family history: Breast disease G8 SISTER (breast cancer) Family history: Diabetes mellitus 19 FATHER G8 SISTER Heart disease 19 MOTHER Parkinson's disease 19 MOTHER Physical Exam-Suspected Sepsis Physical Exam Vital Signs Vital Signs - First Documented 04/01/20 14:27 Temp 38.7 Pulse 61 Resp 14 B/P (MAP) 133/96 (108) Pulse Ox 97 O2 Delivery Nasal Cannula O2 Flow Rate 2.00 Capillary Refill : Height, Weight, BMI Height: 5'4.00" Weight: 160lbs. 0.0oz. 72.534645pi; 29.3 BMI Method:Stated General Appearance: No Apparent Distress, Chronically ill HEENT: PERRL/EOMI, Pharynx Normal Neck: Non Tender, Supple Respiratory: Lungs Clear, Normal Breath Sounds Cardiovascular: Regular Rate, Rhythm, No Murmur Gastrointestinal: Non Tender, Soft Back: Normal Inspection, No CVA Tenderness, No Vertebral Tenderness Extremity: Pedal Edema (moderate to significant edema to the right leg and patient states that is chronic. 1-2+ edema to the left lower extremity), Other (complains of chronic shoulder problems and has decreased range of motion to both shoulders with left greater than right.) Neurologic/Psychiatric: Alert, Other (awake and knows SELF and date with some confusion about the events. Off on month (stated April instead of March) and slow to tell her birthday.) Skin: warm/dry; No rash, No ulcerations Focused Exam Lactate Level 04/01/20 14:55: Lactic Acid Level 1.91 Lactic Acid Level Laboratory Tests Test 04/01/20 14:55 Lactic Acid Level 1.91 MMOL/L (0.50-2.00) Progress/Results/Core Measures Suspected Sepsis SIRS Temperature: Pulse: Respiratory Rate: Laboratory Tests 04/01/20 14:55: White Blood Count 15.6H Blood Pressure / Mean: 04/01/20 14:55: Lactic Acid Level 1.91 Laboratory Tests 04/01/20 14:55: Platelet Count 269 04/01/20 15:29: Creatinine 5.86H, INR Comment 1.1, Total Bilirubin 0.5 Results/Orders Lab Results Laboratory Tests Test 04/01/20 14:55 04/01/20 15:08 04/01/20 15:29 Range/Units White Blood Count 15.6 H 4.3-11.0 10^3/uL Red Blood Count 3.84 L 4.35-5.85 10^6/uL Hemoglobin 11.3 L 11.5-16.0 G/DL Hematocrit 36 35-52 % Mean Corpuscular Volume 94 80-99 FL Mean Corpuscular Hemoglobin 29 25-34 PG Mean Corpuscular Hemoglobin Concent 31 L 32-36 G/DL Red Cell Distribution Width 16.6 H 10.0-14.5 % Platelet Count 269 130-400 10^3/uL Mean Platelet Volume 10.0 7.4-10.4 FL Neutrophils (%) (Auto) 86 H 42-75 % Lymphocytes (%) (Auto) 4 L 12-44 % Monocytes (%) (Auto) 9 0-12 % Eosinophils (%) (Auto) 1 0-10 % Basophils (%) (Auto) 0 0-10 % Neutrophils # (Auto) 13.4 H 1.8-7.8 X 10^3 Lymphocytes # (Auto) 0.7 L 1.0-4.0 X 10^3 Monocytes # (Auto) 1.3 H 0.0-1.0 X 10^3 Eosinophils # (Auto) 0.2 0.0-0.3 10^3/uL Basophils # (Auto) 0.0 0.0-0.1 10^3/uL Neutrophils % (Manual) 88 % Lymphocytes % (Manual) 3 % Monocytes % (Manual) 8 % Eosinophils % (Manual) 1 % Blood Morphology Comment NORMAL Erythrocyte Sedimentation Rate 90 H 0-30 MM/HR Lactic Acid Level 1.91 0.50-2.00 MMOL/L Urine Color YELLOW Urine Clarity CLEAR Urine pH 6.0 5-9 Urine Specific [place] 1.020 1.016-1.022 Urine Protein 3+ H NEGATIVE Urine Glucose (UA) NEGATIVE NEGATIVE Urine Ketones NEGATIVE NEGATIVE Urine Nitrite NEGATIVE NEGATIVE Urine Bilirubin NEGATIVE NEGATIVE Urine Urobilinogen 0.2 < = 1.0 MG/DL Urine Leukocyte Esterase NEGATIVE NEGATIVE Urine RBC (Auto) 1+ H NEGATIVE Urine RBC 0-2 /HPF Urine WBC 5-10 H /HPF Urine Crystals PRESENT H /LPF Urine Amorphous Sediment MOD MARLENA URATES H /LPF Urine Bacteria TRACE /HPF Urine Casts NONE /LPF Urine Mucus NEGATIVE /LPF Urine Culture Indicated NO Prothrombin Time 14.1 12.2-14.7 SEC INR Comment 1.1 0.8-1.4 Activated Partial Thromboplast Time 33 24-35 SEC D-Dimer 3.62 H 0.00-0.49 UG/ML Sodium Level 134 L 135-145 MMOL/L Potassium Level 6.3 H 3.6-5.0 MMOL/L Chloride Level 92 L 98-107 MMOL/L Carbon Dioxide Level 29 21-32 MMOL/L Anion Gap 13 5-14 MMOL/L Blood Urea Nitrogen 44 H 7-18 MG/DL Creatinine 5.86 H 0.60-1.30 MG/DL Estimat Glomerular Filtration Rate 7 BUN/Creatinine Ratio 8 Glucose Level 136 H 70-105 MG/DL Calcium Level 10.0 8.5-10.1 MG/DL Corrected Calcium 10.2 H 8.5-10.1 MG/DL Total Bilirubin 0.5 0.1-1.0 MG/DL Aspartate Amino Transf (AST/SGOT) 17 5-34 U/L Alanine Aminotransferase (ALT/SGPT) 10 0-55 U/L Alkaline Phosphatase 84 40-136 U/L Lactate Dehydrogenase 189 125-220 U/L Troponin I 0.028 <0.028 NG/ML C-Reactive Protein High Sensitivity 6.94 H 0.00-0.50 MG/DL Total Protein 7.8 6.4-8.2 GM/DL Albumin 3.7 3.2-4.5 GM/DL Procalcitonin 0.46 H <0.10 NG/ML My Orders Orders - CT DE ANDA MD Ct Head Wo-R/O Stroke (04/01/20 14:29) Cbc With Automated Diff (04/01/20 14:32) Protime With Inr (04/01/20 14:32) Partial Thromboplastin Time (04/01/20 14:32) Comprehensive Metabolic Panel (04/01/20 14:32) Fibrin Degradation Products (04/01/20 14:32) Troponin I (04/01/20 14:32) Ua Culture If Indicated (04/01/20 14:32) Chest 1 View, Ap/Pa Only (04/01/20 14:32) Ekg Tracing (04/01/20 14:32) Nothing By Mouth (04/01/20 Dinner) Accucheck Stat ONCE (04/01/20 14:32) Ed Iv/Invasive Line Start (04/01/20 14:32) Ed Iv/Invasive Line Start (04/01/20 14:32) Vital Signs Stroke Patient Q15M (04/01/20 14:32) O2 (04/01/20 14:32) Intake & Output 06,14,22 (04/01/20 14:32) Monitor-Rhythm Ecg Trace Only (04/01/20 14:32) Dysphagia Screening Tool (04/01/20 14:32) Lipid Panel (04/02/20 06:00) Procalcitonin (Pct) (04/01/20 14:59) Hs C Reactive Protein (04/01/20 14:59) Erythrocyte Sedimentation Rate (04/01/20 14:59) LDH (04/01/20 14:59) Blood Culture (04/01/20 14:59) Coronavirus Sars-Cov-2 So 2018 (04/01/20 14:59) Lactic Acid Analyzer (04/01/20 14:59) Manual Differential (04/01/20 14:55) Piperacillin/Tazobactam (Bulk) (Zosyn In (04/01/20 17:15) Piperacillin/Tazobactam (Bulk) (Zosyn In (04/01/20 17:15) Medications Given in ED Current Medications Medications Dose Ordered Sig/Jericho Route Start Time Stop Time Status Last Admin Dose Admin Piperacillin Sod/ Tazobactam Sod 2.25 gm/Sodium Chloride 110 ml @ 240 mls/hr ONCE ONCE IV 04/01/20 17:15 04/01/20 17:42 DC 04/01/20 17:50 240 MLS/HR Vital Signs/I&O 04/01/20 04/01/20 14:27 14:35 Temp 38.7 Pulse 61 Resp 14 B/P (MAP) 133/96 (108) Pulse Ox 97 O2 Delivery Nasal Cannula Nasal Cannula O2 Flow Rate 2.00 2.00 Capillary Refill : Progress Note : Progress Note Seen and evaluated. IV, labs, chest x-ray, EKG, blood cultures, lactic acid, CT head ordered. Patient directly to CT scan on arrival due to concerns for stroke and bleed. EMS reported that she had a fall yesterday per the family but denies hitting head and denies having any problems with that. No acute bleed noted on CT scan. Patient was found to be febrile she didn't know about read we will initiate sepsis screening and get COVID swab due to greater prevalence in the community recently. Monitor patient. 1707: I have made contact with [facility] in [place], [place] for transfer due to finding of right lower lobe pneumonia. Zosyn 2.25 g IV initiated as renal dose. Pending call back. Current vitals are heart rate of 56 with blood pressure 123/87 and O2 saturation 97% on 2 L. Monitor patient. 1725: I have discussed the case with Dr. Higgins, on-call hospitalist review the case. He accepts patient for transfer. Pending bed assignment. 1800: We have a bed assignment at [facility] and EMS has been notified. Patient will go by EMS. COVID 19 precautions will be in effect. ECG Initial ECG Impression Date: Apr 01, 2020 Initial ECG Impression Time: 15:06 Initial ECG Rate: 61 Initial ECG Rhythm: Normal Sinus Initial ECG Comparisson: Unchanged (07/12/18) Comment Sinus rhythm with normal axis. No evidence of ST elevation OK. Interpreted by me. Diagnostic Imaging Diagonstic Imaging: CT Plain Films/CT/US/NM/MRI: head Comments [facility] [place] NAME: NAKUL MILLER [facility] REC#: [id number] PT STATUS: REG ER : 1945 PHYSICIAN: CT DE ANDA MD ADMIT DATE: 04/01/20/ER Signed Date of Exam:04/01/20 CT HEAD WO-R/O STROKE PROCEDURE: CT head wo r/o stroke. TECHNIQUE: Multiple contiguous axial images were obtained through the brain without the use of intravenous contrast. Auto Exposure Controls were utilized during the CT exam to meet ALARA standards for radiation dose reduction. INDICATION: Stroke. Weakness. Decreased level of consciousness. COMPARISON: CT head on 07/12/2018. FINDINGS: No large acute territorial ischemia, mass, or hemorrhage. Chronic microvascular disease is seen in the periventricular and subcortical white matter. The ventricles and cortical sulci are prominent, consistent with generalized volume loss. The basilar cisterns are patent and unremarkable. The calvarium is intact. The visualized paranasal sinuses are clear. IMPRESSION: 1. No large acute territorial ischemia, mass, or hemorrhage. 2. Chronic microvascular disease. 3. Generalized parenchymal volume loss. Dictated by: Dictated on workstation # [id number] Dict: 04/01/20 1436 Trans: 04/01/20 1509 [facility] [id number] Interpreted by: SHANEKA SALAS DO Electronically signed by: SHANEKA SALAS DO 04/01/20 1509 Diagonstic Imaging: Xray Plain Films/CT/US/NM/MRI: chest Comments [facility] [place] NAME: NAKUL MILLER [facility] REC#: [id number] PT STATUS: REG ER : 1945 PHYSICIAN: CT DE ANDA MD ADMIT DATE: 04/01/20/ER Draft Date of Exam:04/01/20 CHEST 1 VIEW, AP/PA ONLY HISTORY: Weakness and decreased consciousness. COMPARISON: 07/12/2018. TECHNIQUE: Frontal view of the chest. FINDINGS: Airspace opacities are seen in the right lung base. No pleural effusion or pneumothorax is seen. The cardiac silhouette is mildly prominent but stable in size. There is a left shoulder arthroplasty. IMPRESSION: Airspace opacities in the right lung base may represent pneumonia in the appropriate clinical setting. Dictated on workstation # [id number] Dict: 04/01/20 1637 Trans: 04/01/20 1640 [id number] Interpreted by: MANJU CLEMENTE MD Electronically signed by: Reviewed: Reviewed by Me Departure Impression Primary Impression: Right lower lobe pneumonia Qualified Codes: J18.1 - Lobar pneumonia, unspecified organism Additional Impressions: End stage renal disease on dialysis COVID-19 evaluation Disposition: 02 XFER SHT-TRM HOSP Condition: Stable Transfer Transfer Reason: Exceeds level of care Time Spoke to Accepting Phy: 17:07 Transfer Time: 18:06 Transfer Facility: [facility] in [place], [place], Dr. Higgins accepted. Method of Transfer: EMS Departure-Patient Inst. Referrals: SERGIO HANCOCK (PCP) Primary Care Physician [facility] (Family) Primary Care Physician CT DE ANDA MD Apr 01, 2020 15:11
[2020-04-01 15:15] LABS: BILIRUBIN,URINE NEGATIVE (NEGATIVE); CLARITY,URINE CLEAR; COLOR,URINE YELLOW; GLUCOSE, URINE (UA) NEGATIVE (NEGATIVE); KETONES,URINE NEGATIVE (NEGATIVE); LEUKOCYTE ESTERASE ,URINE NEGATIVE (NEGATIVE); NITRITE,URINE NEGATIVE (NEGATIVE); PROTEIN,URINE 3+ (NEGATIVE)
[2020-04-01 15:34] LABS: ERYTHROCYTE SEDIMENTATION RATE 90 MM/HR (0-30)
[2020-04-01 15:39] LABS: AMORPHOUS SEDIMENT,UR MOD AMOR URATES /LPF; BACTERIA,URINE TRACE /HPF; RBC,URINE 0-2 /HPF
[2020-04-01 15:53] LABS: EOSINOPHILS % (MANUAL) 1 %; LYMPHOCYTES % (MANUAL) 3 %; MONOCYTES % (MANUAL) 8 %; NEUTROPHILS % (MANUAL) 88 %; RBC MORPH NORMAL
[2020-04-01 16:00] LABS: ALBUMIN 3.7 GM/DL (3.2-4.5)
[2020-04-01 16:01] LABS: POTASSIUM 6.3 MMOL/L (3.6-5.0)
[2020-04-01 16:03] LABS: TOTAL PROTEIN 7.8 GM/DL (6.4-8.2)
[2020-04-01 16:05] LABS: BILIRUBIN,TOTAL 0.5 MG/DL (0.1-1.0)
[2020-04-01 16:07] LABS: CREATININE SERUM 5.86 MG/DL (0.60-1.30)
--- NOTE | 2020-04-01 16:41 | Diagnostic Imaging Report ---
HISTORY: Weakness and decreased consciousness. COMPARISON: 07/12/2018. TECHNIQUE: Frontal view of the chest. FINDINGS: Airspace opacities are seen in the right lung base. No pleural effusion or pneumothorax is seen. The cardiac silhouette is mildly prominent but stable in size. There is a left shoulder arthroplasty. IMPRESSION: Airspace opacities in the right lung base may represent pneumonia in the appropriate clinical setting. Dictated by: Dictated on workstation # [id number]
[2020-04-01 17:07] LABS: FIBRIN DEGRADATION PRODUCTS 3.62 UG/ML (0.00-0.49); INR 1.1 (0.8-1.4); PROTHROMBIN TIME PATIENT 14.1 SEC (12.2-14.7)
[2020-04-01] MEDS ORDERED: PIPERACILLIN IV ONE ×2 (17:15)
[2020-04-01] MEDS ORDERED: TAZOBACTAM IV ONE ×2 (17:15)
[2020-04-01] MEDS ORDERED: PIPERACILLIN/TAZOBACTAM (BULK) 2.25 GM in NS (IVPB) 100 ML IV ONE (17:15)
[2020-04-01] MEDS ORDERED: SODIUM CHLORIDE IV ONE ×2 (17:15)
[2020-04-01 18:41] VITALS: BP 115/43
--- OUTSIDE RECORDS SUMMARY | 2020-04-01 19:22 | XMS REPORT | Clinical Summary ---
Author Author [facility] Organization [facility] Address Unknown Phone Unavailable Care Team Providers Care Fishing Vessel Captain Name Role Phone Mingo Chang MD Unavailable Mauricio Messina MD PCP Dolly Acosta RN Unavailable Unavailable Latricia Alvarado APRN Unavailable Luis Enrique Matt MD Unavailable Unavailable Garland Quezada MD Unavailable Allison Mackenzie RN Unavailable Unavailable Dacia Fowler TRANSPORTATION PROGRAM DIRECTOR Unavailable Francisca Ventura DO Unavailable Yoel Ventura MD Unavailable Freddy Greenberg DO Unavailable Jaxon Piedra MD Unavailable Doreen Sharp MD Unavailable Babs Loza RN Unavailable Unavailable Mingo Mccall MD Unavailable Daniele Sarmiento MD Unavailable Patricia Gómez APRN Unavailable Lesa Sparrow MD Unavailable Gail Ahmadi MD [phone] Source Comments Some departments are not documenting in the electronic medical record. If you d o not see the information that you expected, contact Release of Information in [facility] Information Management department at [phone] for further assistan wu in locating additional records.[facility] Allergies Comments Active Allergy Reactions Severity Noted Date Sulfamethoxazole-Trimetho UNKNOWN Low 06/25 prim disorientation and swollen tongue Gabapentin SEE COMMENTS 05/28/2014 Clopidogrel DIZZINESS Low 04/24/2016 Medications End Date Status Medication Sig Dispensed Refills Start Date Active ondansetron (ZOFRAN ODT) Take 4 mg by 0 4 mg rapid dissolve mouth every 4 tablet hours as needed. Active calcium carbonate (TUMS) Take 500 mg 0 500 mg (200 mg elemental by mouth calcium) chewable tablet daily. Active cyanocobalamin(+) Take 2 Tabs 0 (VITAMIN B-12) 500 mcg by mouth 4 tablet daily. Additional Information Patient taking differently: 2,000 mcg Oral DAILY, Informant: Self, Reported on 04/30/2016 8:49 PM Active amLODIPine (NORVASC) 10 Take 10 mg by 0 mg tablet mouth at bedtime daily. Active furosemide (LASIX) 40 mg Take 40 mg by 0 tablet mouth daily as needed. For weight gain >3lbs in 24 hours. Active alum/mag hydroxide/simeth Take 30 mL by 0 (MYLANTA, MAALOX PLUS) mouth every 4 200/200/20 mg/5 mL susp hours as oral suspension needed. Active pantoprazole DR Take 1 Tab by 90 Tab 3 12/04/19 1 (PROTONIX) 40 mg tablet mouth daily. 5 Active zbauopyi-ene-hiwb-FA-lute Take 2 Tabs 0 in (CENTRUM SILVER WOMEN) by mouth 8 mg iron-400 mcg-300 mcg daily. tab Active acetaminophen (TYLENOL) Take 2 Tabs 30 Tab 1 325 mg tablet by mouth 6 every 6 hours as needed for Pain. Active insulin aspart (NOVOLOG) Inject 0-7 15 mL 0 0 100 unit/mL flexPEN Units into 6 area(s) as directed before meals and at bedtime. Active atenolol (TENORMIN) 50 mg Take 50 mg by 0 tablet mouth daily. Active docusate (COLACE) 100 mg Take 100 mg 0 capsule by mouth twice daily. Active oxyCODONE/acetaminophen Take 1 Tab by 0 (PERCOCET; ENDOCET; mouth every 4 ROXICET) 5/325 mg tablet hours as needed for Pain Active zolpidem (AMBIEN) 10 mg Take 5 mg by 0 tablet mouth at bedtime as needed for Sleep. Active insulin detemir(+) Inject 10 0 (LEVEMIR) 100 unit/mL Units into soln area(s) as directed. at bedtime Active AMITRIPTYLINE HCL Take by 0 (AMITRIPTYLINE PO) mouth. Active Problems Problem Noted Date Closed fracture [...] wound for redness, drainage or other concerns. C ontact office with questions at [phone] NWB. Tubigrip. Night splint at rest. OK for ROM to right knee. Full body PT as tolerated. Continue dressing changes to right heel wound as previously ordered Fu in 4 wks for xrays with Pedros Fall 04/24/2016 Syncope, near 04/24/2016 Closed fracture of ischium 04/24/2016 NATALIE (acute kidney injury) 04/24/2016 Urinary tract infection with hematuria 04/24/2016 Hyperkalemia 04/24/2016 Altered mental status, unspecified 04/24/2016 Failed shoulder arthroplasty s/p surgery elsewhere 0 07/22/2015 Hyperglycemia 11/27/2014 Right foot pain 09/14/2014 DM (diabetes mellitus) 09/14/2014 HTN (hypertension) 09/14/2014 HLD (hyperlipidemia) 09/14/2014 Wound, surgical, infected 06/29/2014 Postoperative anemia due to acute blood loss 014 NATALIE (acute kidney injury) 06/02/2014 Urinary retention with incomplete bladder emptying 0 06/02/2014 Constipation 06/02/2014 Ankle fracture, right 05/28/2014 Infected hardware in right leg 05/28/2014 Open wound of ankle with complication 05/28/2014 Wound infection after surgery 05/28/2014 Peripheral vascular disease Immunizations Name Administration Dates Next Due Flu Vaccine Quadrivalent 07/17/2014 =>3 Yo (Preservative Free) Family History Medical History Relation Name Comments Cancer Mother Relation Name Status Comments Mother Social History Date Tobacco Use Types Packs/Day Years Used Former Smoker Smokeless Tobacco: Never Used Tobacco Cessation: Counseling Given: Yes Drinks/Week oz/Week Comments Alcohol Use 0 Standard drinks or equivalent 0.0 No Sex Assigned at Date Recorded Not on file Industry Job Start Date Occupation Not on file Not on file Not on file Travel End Travel History Travel Start No recent travel history available. Last Filed Vital Signs Reading Time Taken Comments Vital Sign 157/76 07/07/2016 12:46 PM CDT Blood Pressure 77 07/07/2016 12:46 PM CDT Pulse 36.8 C (98.2 F) 07/07/2016 12:46 PM CDT Temperature 16 01/03/2015 2:35 PM CDT Respiratory Rate 94% 05/08/2016 2:20 PM CDT Oxygen Saturation - - Inhaled Oxygen Concentration 74.8 kg (165 lb) 07/07/2016 12:46 PM CDT Weight 157.5 cm (5' 2") 07/07/2016 12:46 PM CDT Height 30.18 07/07/2016 12:46 PM CDT Body Mass Index Plan of Treatment Health Maintenance Due Date Last Done Comments MEDICARE ANNUAL WELLNESS 1945 VISIT DTAP/TDAP VACCINES (1 - 02/09/1964 Tdap) HEPATITIS C SCREENING 02/09/1964 PHYSICAL (COMPREHENSIVE) 02/09/1964 EXAM BREAST CANCER SCREENING 1986 COLORECTAL CANCER 02/09/1996 SCREENING SHINGLES RECOMBINANT 02/09/1996 VACCINE (1 of 2) OSTEOPOROSIS 2011 SCREENING/MONITORING PNEUMONIA (PPSV23) 2011 VACCINE (1 of 1 - PPSV23) INFLUENZA VACCINE 07/25/2020 07/17/2014 Implants Device Identifier Shelf Expiration Date Model / Serial / L ot Implanted Type Area Manufactur er 10/24/2021 [id number] / N/A / N/A Nail 12mm 28.5cm Tibia Nail-Ex Right: Leg SYNTHE S Intramedullary Cannulated SYNTHES Implanted: Qty: 1 on 04/29/2016 by Daniele Black MD at [facility] [id number] / N/A / N/A Screw Bone 5mm 8mm 32mm Titanium Right: Leg SYNT HES Full Thread Femur Blunt Tip SYNTHES Implanted: Qty: 1 on 04/29/2016 by Daniele Black MD at [facility] [id number] / N/A / N/A Screw Bone 5mm 8mm 36mm Titanium Right: Leg SYNT HES Full Thread Femur Blunt Tip SYNTHES Implanted: Qty: 1 on 04/29/2016 by Daniele Black MD at [facility] Results Not on filefrom Last 3 Months Insurance Type Payer Benefit Subscriber ID Effective Phone Address Plan / Dates Group Medicare HUMANA MEDICARE HUMANA xxxxxxxxx 2014-P CHOICE PPO resent [id number] AnandJosephine Third Self 1945 [address] (Home) [place] [id number] Liability Advance Directives Patient Bail Agent Explanation Type Date Recorded Advance 05/28/2014 3:11 PM Directive/DPOA Date Inactivated Comments Code Status Date Activated 05/08/2016 6:15 PM Full Code 04/24/2016 3:29 PM Provider has discussed Code Status No, more discussi on w/Patient or Family? needed 12/04/2014 4:29 PM Full Code 11/26/2014 7:40 PM Provider has discussed Code Status No, discussion no t w/Patient or Family? necessary based on Dx 09/18/2014 8:01 PM Full Code 09/14/2014 9:45 PM Provider has discussed Code Status No, discussion no t w/Patient or Family? necessary based on Dx 07/17/2014 2:43 PM Full Code 06/29/2014 2:30 PM Provider has discussed Code Status No, discussion no t w/Patient or Family? necessary based on Dx 06/07/2014 11:50 AM Full Code 05/28/2014 3:21 PM Provider has discussed Code Status Yes w/Patient or Family?
--- OUTSIDE RECORDS SUMMARY | 2020-04-01 19:22 | XMS REPORT ---
Author Author [facility] Address [address] [address] Care Team Providers Care Sprinkler Fitter Apprentice Name Role Phone OLYA WILLIS Unavailable Unavailable RAHEL MUNOZ Unavailable HUERTER, OLYA Joaquin Unavailable HUERTER, OLYA F Unavailable HUERTER, OLYA F Unavailable RICKY VALENTIN Unavailable HUERTER, OLYA Unavailable HUERTER, OLYA Unavailable HUERTER, OLYA Unavailable HUERTER, OLYA Unavailable HUERTER, OLYA Unavailable HUERTER, OLYA Unavailable HUERTER, OLYA Unavailable HUERTER, OLYA Unavailable HUERTER, OLYA Unavailable HUERTER, OLYA Unavailable HUERTER, OLYA Unavailable ERTER, OLYA Unavailable HUERTER, OLYA Unavailable HUERTER, OLYA Unavailable HUERTER, OLYA Unavailable HUERTER, OLYA Unavailable HUERTER, OLYA Unavailable HUERTER, OLYA Unavailable HUERTER, OLYA Unavailable HUERTER, OLYA Unavailable HUERTER, OLYA Unavailable HUERTER, OLYA Unavailable HUERTER, OLYA Unavailable HUERTER, OLYA Unavailable HUERTER, OLYA Unavailable HUERTER, OLYA Unavailable HUERTER, OLYA Unavailable HUERTER, OLYA Unavailable HUERTER, OLYA Unavailable HUERTER, OLYA Unavailable HUERTER, OLYA Unavailable HUERTER, OLYA Unavailable HUERTER, OLYA Unavailable HUERTER, OLYA Unavailable HUERTER, OLYA Unavailable HUERTER, OLYA Unavailable HUERTER, OLYA Unavailable HUERTER, OLYA Unavailable HUERTER, OLYA Unavailable SERGIO HANCOCK Unavailable ERTER, OLYA Unavailable SERGIO HANCOCK Unavailable ERTER, OLYA Unavailable SERGIO HANCOCK Unavailable URMILA SUTHERLAND MD Unavailable Unavailable IRENE BRUCE [employer] SALES COUNTER MANAGER-C Unavailable Unavailable OLYA WILLIS MD Unavailable Unavailable WEI DO, ALMA R Unavailable Unavailable VERONICA LICEA, RALPH Mcgee Unavailable Unavailable BARBIE DO, RICKY S Unavailable Unavailable CUCO LICEA, PRESTON S Unavailable Unavailable CORTES LICEA, CLAUDY Unavailable Unavailable ESTUARDO RICHARDSON EXECUTIVE SALES ASSISTANT Unavailable Unavailable KRIS LICEA, LA NENA Garzon Unavailable Unavailable NINFA LICEA, KAYLEE Rich Unavailable Unavailable NINFA LCIEA, KAYLEE Rich Unavailable Unavailable TAMMY LICEA, RAHEL Mcdonald Unavailable Unavailable MCADAMS DO, LIANA K Unavailable Unavailable JENN DPM, INA Q Unavailable Unavailable IRENE BRUCE [employer] SALES COUNTER MANAGER-C Unavailable Unavailable URMILA SUTHERLAND MD Unavailable Unavailable ANIAK LICEA, IFEOMA Rae Unavailable Unavailable IFEOMA DONALDSON MD Unavailable Unavailable MASHA LICEA, NAJMA Lee Unavailable Unavailable MARITA DO, IRENE K Unavailable Unavailable KATHLEEN LICEA, JD Garzon Unavailable Unavailable ANTHONY MARTIN EXECUTIVE SALES ASSISTANT Unavailable Unavailable HUERTBARB, OLYA Unavailable HUERTER, OLYA Unavailable KARISSA, SERGIO Unavailable SHEA MAYFIELD Unavailable Unavailable HUERTER, OLYA Unavailable KARISSA, SERGIO Unavailable HUERTER, OLYA Unavailable HUERTER, OLYA Unavailable HUERTER, OLYA Unavailable RAHEL MENA Unavailable HUERTER, OLYA Unavailable KARISSA, SERGIO Unavailable HUERTER, OLYA Unavailable KARISSA, SERGIO Unavailable HUERTER, OLYA Unavailable HUERTER, OLYA Unavailable HUERTER, OLYA Unavailable Migration, Doctor Unavailable Unavailable Migration, Doctor Unavailable Unavailable HUERTER, OLYA F Unavailable Unavailable Migration, Doctor Unavailable Unavailable RAHEL CHEEMA MD Unavailable Unavailable Migration, Doctor Unavailable Unavailable HUERTER, OLYA Unavailable SERGIO HANCOCK Unavailable Unavailable Migration, Doctor Unavailable Unavailable HUERTER, OLYA Unavailable TIFF GATES Unavailable HUERTER, OLYA Unavailable HUERTER, OLYA Unavailable HUERTER, OLYA Unavailable HUERTER, OLYA Unavailable HUERTER, OLYA Unavailable HUERTER, OLYA Unavailable HUERTER, OLYA Unavailable HUERTER, OLYA Unavailable HUERTER, OLYA Unavailable HUERTER, OLYA Unavailable SERGIO HANCOCK PCP HUERTER, OLYA Unavailable Migration, Doctor Unavailable Unavailable IRENE BRUCE NP-James Unavailable Unavailable CUCO LICEA, PRESTON Granados Unavailable Unavailable IFEOMA DONALDSON MD Unavailable Unavailable IFEOMA DONALDSON MD Unavailable Unavailable KOKO LICEA, URMILA Vallejo Unavailable Unavailable ANDRÉS, ESTUARDO R EXECUTIVE SALES ASSISTANT Unavailable Unavailable MARITA DO, IRENE K Unavailable Unavailable OLYA WILLIS MD Unavailable Unavailable WEI POWERS, ALMA Dill Unavailable Unavailable SERGIO HANCOCK MATERIAL ASSISTANT PCP NINFA LICEA, KAYLEE Rich Unavailable Unavailable NINFA LICEA, KAYLEE Rich Unavailable Unavailable MCADAMS DO, LIANA K Unavailable Unavailable TAMMY LICEA, RAHEL Mcdonald Unavailable Unavailable ZULEMAER DO, RICKY S Unavailable Unavailable IRENE BRUCE [employer] SALES COUNTER MANAGER-C Unavailable Unavailable KRIS LICEA, LA NENA Garzon Unavailable Unavailable ANTHONY MARTIN EXECUTIVE SALES ASSISTANT Unavailable Unavailable HADLEY LICEA, NATTY Weinstein Unavailable Unavailable OLYA WILLIS Unavailable Migration, Doctor Unavailable Unavailable SERGIO HANCOCK Unavailable SHEA MAYFIELD MATERIAL ASSISTANT Unavailable Unavailable KATHLEEN LICEA, JD Garzon Unavailable Unavailable JENN DPM, INA Samuels Unavailable Unavailable OLYA WILLIS Unavailable HUZIYAD, OLYA Unavailable Migration, Doctor Unavailable Unavailable OLYA WILLIS Unavailable OLYA WILLIS Unavailable HUZIYAD, OLYA Unavailable ALBA, OLYA Unavailable ALBA, OLYA Unavailable ALBA, OLYA Unavailable ALBA, OLYA Unavailable Unavailable Unavailable Unavailable Unavailable Unavailable Unavailable Unavailable Unavailable Unavailable Unavailable Unavailable Unavailable Allergies Normalized Allergy Reported Date of Reaction(s) Care Provider Facility Allergy Type classification allergen Allergy Onset NEGATED no information sulfamethoxazo 12-29-2016 - no informat ion KAYLEE OCASIO , Not Available Drug Allergy jessica LICEA ([id number]) (4 sources.) Medications Current Medications Medication Ingredient Drug Dose Dates Status Sig Sig Care Class(es) (Normalized) (Original) Provid er no Accu-Chek no Active no Accu-Chek no information Niru Plus information information Niru Plus - name (1 source.) - TEST BLOOD Translation SUGAR THREE s: [ TIMES A DAY Accu-Chek Active Niru Plus -] no Accu-Chek no Active no Accu-Chek no information Niru Plus information information Niru Plus - name (1 source.) - TEST BLOOD Translation SUGAR THREE s: [ TIMES A DAY Accu-Chek Active Niru Plus -] no Accu-Chek no 10-20-20 Active no Accu-Chek no information Niru information 18 information Niru name (1 source.) w/Device w/Device as directed Sep, lifetime Active no Blood no 10-06-20 Active no Blood no information Glucose information 18 information Glucose name (1 source.) Monitor Monitor System System w/Device w/Device Translation subcutaneous s: [ Blood ly check Glucose blood sugars Monitor three times System daily as w/Device] directed Sep, Active no Blood no 10-06-20 Active no Blood no information Glucose information 18 information Glucose name (1 source.) Monitor Monitor System System w/Device w/Device Translation subcutaneous s: [ Blood ly check Glucose blood sugars Monitor three times System daily as w/Device] directed Sep, Active no Humalog no 5 [IU] 08-03-20 Active inject 5 Humalog n o information KwikPen 100 information 14 [IU] by KwikPen 1 00 name (1 source.) unit/mL subcutaneous unit/mL injection inject 5 once Units by Subcutaneous route as per insulin sliding scale protocol 3 times per day Jul, Active no Leg Cramp no Active no Leg Cramp no information Relief - information information Relief - as na me (1 source.) Translation directed s: [ Leg Active Cramp Relief -] silver silver Sulfonamide 05-13-20 Active no Silvaden e 1 no sulfADIAZIN sulfADIAZIN Antibacteri mg/mL 18 information % E xternally name E 10 mg/ml E al Once a day 1 topical Translation application cream (5 s: [ to affected sources.) Silvadene 1 area 24h 20 %, Apr, 2018 Silvadene 1 Active %] no Sodium no 15 g 01-18-20 Active take 15 g by Kayexal ate no information polystyrene information 15 mouth twice 15 Gra ms by name (1 source.) sulfonate daily Oral route 2 times per day Dec, Active no Vitamin D no 5000 Active take 5 Vitamin D no information 1000 UNIT information [IU] tablets by 1000 UNIT name (1 source.) mouth once Orally Once daily a day 5 tablet 24h Active Completed/Discontinued Medications Medication Ingredient Drug Dose Dates Status Sig Sig Care Class(es) (Normalized) (Original) Provid er no Docusate no 11-11-19 Complete no Docusate no information Sodium information 17 d information Sodium name (1 source.) Discontinued 100 ORAL Twice A Day November 11, 2016 no Docusate no 11-11-19 Complete no Docusate (no information Sodium 100 information 17 d information Sod ium 100 phone) (1 source.) Mg Capsule, Mg Capsule, 100 Mg Oral 100 Mg Oral Twice A Day Discontinued no Insulin no 05-09-20 Complete no Insulin no information Human information 14 - d information Human L ispro name (2 Lispro 08-14-20 Discontinued sources.) 14 0 SUBCUTANEOUS Fasting & 2 Hrs Post Prandial May 09, 2014 9:45am August 14, 2014 04-15-2014 Completed no Insulin no name - inform Human 08-14-2014 ation Lispro Disconti nued 14 SUBCUTAN EOUS Before Meals 100 April 15, 2014 4:35pm August 14, 2014 no Multivitami no no no Multivitamin no information n information informat information Active 1 name (1 source.) preparation ion ORAL Daily no [place]-3-Aci no 04-15-20 Complete no [id number]-[id number] no information d Ethyl information 14 d information Ethyl Esters name (1 source.) Esters Discontinued 1 ORAL Twice A Day April 15, 2014 no [place]-3-Aci no 04-15-20 Complete no Tqccg-9-Nclw (no information d Ethyl information 14 d information Ethyl Esters phone) (1 source.) Esters (Lovaza) 1 (Lovaza) 1 Gm Capsule, Gm Capsule, 1 Gm Oral 1 Gm Oral Twice A Day Discontinued no Vancomycin no 05-09-20 Complete no Vancomycin no information Hcl/Normal information 14 - d information Hcl /Normal name (1 source.) Saline 08-14-20 Saline 14 Discontinued 1.25 INTRAVENOUS Every 24 Hours May 09, 2014 9:45am August 14, 2014 Problems Active Problems Problem Normalized Date Last Normalized Normalized Provider Fa cility Classification Problem(s) Recorded Problem Problem Sta tus Duration Osteoporosis Age-related Chronic Active ANTHONY MARTIN Not A vailable (20 sources.) osteoporosis (68403) without current pathological fracture Translations: [ OSTEOPOROSIS NOS] Residual Altered mental Episodic Active SERGIO bhakta Via codes; status 87410 Lia unclassified Translations: Hospital (2 sources.) [ Altered (97156) mental status] Deficiency and Anemia Episodic Active SERGIO smith Via other anemia Translations: 28427 Lia (2 sources.) [ Anemia] Hospital (92882) Deficiency and Anemia in Chronic Active IRENE NEW Not Debbie ilable other anemia chronic kidney (48752) (20 sources.) disease Anxiety Anxiety Chronic Active NATTY [facility] Via disorders (3 disorder, BRUEGGEMANN , Lia sources.) unspecified MD Hospital - [place] (01444) Other Arthropathy, Chronic Active ANTHONY MARTIN [facility] Via non-traumatic unspecified, Lia joint site Hospital - disorders (5 unspecified [place] sources.) (83894) Coronary Atheroscleroti Chronic Active URMILA SUTHERLAND , No t Available atherosclerosi c heart (90669) s and other disease of heart disease [place] (14 sources.) coronary artery with unspecified angina pectoris Cardiac Bradycardia, Chronic Active SERGIO KARISSA Soliman ion Via dysrhythmias unspecified 88056 Lia (3 sources.) Hospital (66203) Other and Cardiomegaly Chronic Active URMILA SUTHERLAND [facility] Via ill-defined [facility] heart disease Hospital - (12 sources.) [place] (19469) Other and Cardiomegaly Chronic Active RICKY Not Avai lable ill-defined DO BARBIE (48049) heart disease (4 sources.) Acute Cerebral Chronic Active RICKY Not Availabl e cerebrovascula artery DO BARBIE (97816) r disease (4 occlusion, sources.) unspecified with cerebral infarction Other diseases Chronic venous Chronic Active ESTUARDO RICHARDSON [facility] Via of veins and hypertension [facility] lymphatics (3 (idiopathic) Hospital - sources.) with ulcer of [place] left lower (15126) extremity Mood disorders Depressive Chronic Active ANTHONY MARTIN [facility] Via (6 sources.) disorder, not Lia elsewhere Hospital - classified [place] Translations: (32593) [ MAJOR DEPRESSIVE DISORDER, SINGLE EPISOD] Diverticulosis Diverticulosis Chronic Active RALPH Granados Not Available and of colon MD (30615) diverticulitis (without (4 sources.) mention of hemorrhage) Diseases of Elevated white Chronic Active IRENE NEW Not A vailable white blood blood cell (59284) cells (15 count, sources.) unspecified Gastroduodenal Gastric ulcer, Chronic Active RALPH ESPINO S Not Available ulcer (except unspecified as MD (77464) hemorrhage) (4 acute or sources.) chronic, without mention of hemorrhage or perforation, without mention of obstruction Congestive Heart failure, Chronic Active AHMED [facility] Vi a heart failure; unspecified Lia [place] nonhypertensiv [facility] e (7 sources.) [place] (25345) Disorders of Hyperlipidemia Chronic Active URMILA SUTHERLAND , Not Available lipid , unspecified (55072) metabolism (24 Translations: sources.) [ HYPERLIPIDEMIA NEC/NOS, PURE HYPERCHOLESTER OLEM, PURE HYPERCHOLESTER OLEMIA, UNSPECIFIED] Other lower Hypoxia Episodic Active SERGIO Porras n Via respiratory Translations: 14727 Lia disease (2 [ Hypoxia] Hospital sources.) (29834) Late effects Late effects Chronic Active RICKY Not A vailable of of DO BARBIE (67440) cerebrovascula cerebrovascula r disease (20 r disease, sources.) hemiplegia affecting dominant side Translations: [ LATE EFF-CEREBR DIS,HEMIPLEGIA AFFECTING, OTH LATE EFFECT-CEREBRO VASCULAR DISEASE, ALTERATIONS OF SENSATIONS, OTH LATE EFFECT-CEREBRO VASCULAR DISEASE] Residual Obstructive Chronic Active RICKY Not Avail able codes; sleep apnea DO BARBIE (93831) unclassified (adult)(pediat (12 sources.) triston) Occlusion or Occlusion and Chronic Active RICKY Not Available stenosis of stenosis of DO BARBIE (70512) precerebral carotid artery arteries (20 without sources.) mention of cerebral infarction Translations: [ MULT BILTRAL ARTERY OCCLUSION WO CEREBRA, OCCLUSION AND STENOSIS OF BILATERAL PEDRAZA] Other Other Chronic Active AHMED Not Available nutritional; disorders of DEMIAN-MAGD , (87712) endocrine; and plasma-protein metabolic metabolism, disorders (5 not elsewhere sources.) classified Other Other joint Chronic Active ALMA CARVAJAL Not A vailable connective replacement , (91485) tissue disease (12 sources.) Cardiac Palpitations Episodic Active URMILA SUTHERLAND , Not Available dysrhythmias Translations: (75835) (16 sources.) [ Bradycardia, BRADYCARDIA, UNSPECIFIED] Other nervous Peripheral Chronic Active SERGIO piperion Via system nerve disease 72756 Lia disorders (1 Hospital source.) (38038) Pneumonia Pneumonia no information Active SERGIO bhakta Via (except that (except that 96554 Lia caused by caused by Hospital tuberculosis tuberculosis (30153) or sexually or sexually transmitted transmitted disease) (1 disease) source.) Other nervous Polyneuropathy Chronic Active IRENE MARITA , DO [facility] Via system , unspecified Lia disorders (5 Hospital - sources.) [place] (39736) Other diseases Renal no information Active SERGIO Barron Via of kidney and insufficiency 50251 Lia ureters (1 Hospital source.) (63785) Other diseases 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 , (63372) ureters (9 idism of renal MD sources.) origin Diabetes Type 2 Chronic Active IRENE NEW Not Available mellitus with diabetes (82117) complications mellitus with (5 sources.) diabetic neuropathy, unspecified Translations: [ TYPE 2 DIABETES MELLITUS W OTH DIABETIC ] Other nervous Unspecified Chronic Active NAJMA FLANAGAN , N ot Available system hereditary and MD (89961) disorders (4 idiopathic sources.) peripheral neuropathy Residual Unspecified Chronic Active ANTHONY MARTIN [facility] Via codes; sleep apnea Lia unclassified Hospital - (4 sources.) [place] (56716) Transient Unspecified Chronic Active RICKY Not Avail able cerebral transient ORENDER , DO (24417) ischemia (4 cerebral sources.) ischemia Nutritional Vitamin D Chronic Active AHMED Not Availa ble deficiencies deficiency, ABOUL-MAGD , (79703) (14 sources.) unspecified MD Open wounds of Wound Episodic Active SERGIO Martin luis Via head; neck; dehiscence 72889 Lia and trunk (1 Hospital source.) (36472) Past or Other Problems Problem Normalized Date Last Normalized Normalized Provider Fa bernice Classification Problem(s) Recorded Problem Problem Sta tus Duration Abdominal pain Abdominal Episodic Completed RALPH MARTIN No t Available (4 sources.) pain, , (02202) epigastric Other Abnormal Episodic Completed SHEA [facility] Via screening for findings on VANBECELAERE Lia suspected diagnostic Hospital - conditions imaging of [place] (not mental other parts of (40818) disorders or musculoskeleta infectious l system disease) (16 Translations: sources.) [ OTH (ABN) FINDINGS ON RADIOLOGICAL EXAMI, OTH SCREEN MAMMO-MALIGN NEOPLASM OF YING, OTH (ABN) FINDINGS ON RADIOLOGICAL EXAMI] Other nervous Abnormal Episodic Completed ANTHONY MARTIN [facility] Via system involuntary Lia disorders (5 movements Hospital - sources.) [place] () Other nervous Abnormality of Episodic Completed KAYLEE OCASIO [facility] Via system gait MD [facility] disorders (4 Hospital - sources.) [place] () Residual Acquired Episodic Completed NATTY [facility] Via codes; absence of Lia BUTCHER unclassified both cervix Hospital - (1 source.) and uterus [place] () Residual Acquired Episodic Completed NATTY [facility] Via codes; absence of Lia BUTCHER unclassified other Hospital - (1 source.) specified [place] parts of (04348) digestive tract Acute Acute Episodic Completed OLYA WILLIS [facility] Via posthemorrhagi posthemorrhagi , MD [facility] c anemia (9 c anemia Hospital - sources.) [place] () Other Aftercare Episodic Completed RAHEL CHEEMA Not Debbie ilable aftercare (2 following , (66886) sources.) surgery for injury and trauma Other Aftercare for Episodic Completed KAYLEE OCASIO Not Available fractures (21 healing () sources.) traumatic fracture of other bone Allergic Allergy status Episodic Completed NATTY [facility] Via reactions (6 to analgesic Lia BUTCHER sources.) agent status Hospital - Translations: [place] [ ALLERGY () STATUS TO SULFONAMIDES STATUS, ALLERGY STATUS TO OTH DRUG/MEDS/BIOL SUB, ALLERGY STATUS TO PENICILLIN, ALLERGY STATUS TO OTH DRUG/MEDS/BIOL SUB, ALLERGY STATUS TO PENICILLIN, ALLERGY STATUS TO ANALGESIC AGENT STATUS] Residual Altered mental Episodic Completed NATTY [facility] Via codes; status, Lia BUTCHER unclassified unspecified Hospital - (2 sources.) [place] () Deficiency and Anemia, Episodic Completed KAYLEE OCASIO [facility] Via other anemia unspecified MD [facility] (8 sources.) Hospital - [place] () Deficiency and Anemia, Episodic Completed AHMED Not Avai lable other anemia unspecified [facility] , (57642) (21 sources.) Other Arthrodesis Episodic Completed IRENE KIRKLAND DO [facility] V ia connective status [facility] tissue disease [facility] - (5 sources.) [place] () Other Care involving Episodic Completed KAYLEE OCASIO [facility] Via aftercare (8 other MD [facility] sources.) specified Hospital - rehabilitation [place] procedure () Nonspecific Chest pain, Episodic Completed BASHAR KOKO , [facility] Via chest pain (14 unspecified MD [facility] sources.) Hospital - [place] () Other Constipation, Episodic Completed KAYLEE OCASIO , [facility] Via gastrointestin unspecified MD [facility] al disorders Hospital - (13 sources.) [place] () Conditions Dizziness and Episodic Completed JD WANG , [facility] Via associated giddiness MD [facility] with dizziness Hospital - or vertigo (5 [place] sources.) (78380) Residual Edema Episodic Completed ANTHONY MARTIN [facility] Via codes; Translations: Lia unclassified [ UNSPECIFIED Hospital - (5 sources.) SLEEP APNEA] [place] () Other Encounter for Episodic Completed RAHEL ANETTE Not Available aftercare (14 occupational , (61906) sources.) therapy Other Encounter for Episodic Completed ALMA WEI [facility] Via aftercare (4 therapeutic , DO Lia sources.) drug Hospital - monitoring [place] () External cause Fall on same Episodic Completed OLYA WILLIS [facility] Via codes: Fall (2 level from , MD [facility] sources.) slipping, Hospital - tripping and [place] stumbling () without subsequent striking against object, initial encounter Translations: [ FALL NOS] Residual Family history Episodic Completed NATTY [facility] Via codes; of ischemic Lia BUTCHER unclassified heart disease [facility] - (1 source.) and other [place] diseases of () the circulatory system Residual Family history Episodic Completed NATTY [facility] Via codes; of malignant Lia BUTCHER unclassified neoplasm of [facility] - (1 source.) breast [place] () Residual Generalized Episodic Completed ESTUARDO RICHARDSON [facility] Vi a codes; edema Lia unclassified Hospital - (2 sources.) [place] () Other injuries History of Episodic Completed OLYA WILLIS [facility] Via and conditions fall , MD [facility] due to Hospital - external [place] causes (9 (41357) sources.) Complication Infection and Episodic Completed IFEOMA DONALDSON , Not Available of device; inflammatory () implant or reaction due graft (20 to internal sources.) joint prosthesis Translations: [ INFEC INFLAM REAC DUE OTH INTRN ORTH D] Residual Localized Episodic Completed OLYA WILLIS [facility] Via codes; edema , MD [facility] unclassified Hospital - (1 source.) [place] (85734) Other terminal superintendent Episodic Completed NATTY [facility] Via aftercare (3 (current) use Lia BUTCHER sources.) of MD Hospital - antithrombotic [place] s/antiplatelet (17507) s Other jail Episodic Completed IRENE MARITA , DO Not Debbie ilable aftercare (20 (current) use (02164) sources.) of insulin Other Long-term Episodic Completed ALMA CARVAJAL Not Debbie ilable aftercare (16 (current) use , DO (68123) sources.) of antibiotics Other Long-term Episodic Completed RICKY Not Availab le aftercare (21 (current) use DO BARBIE (72588) sources.) of insulin Other Long-term Episodic Completed ANTHONY MARTIN [facility] Via aftercare (5 (current) use Lia sources.) of other Hospital - medications [place] (28582) Mood disorders Major no information no information no name Not Available (2 sources.) depressive (35706) disorder, single episode, unspecified Other Muscle Episodic Completed RICKY Not Availabl e connective weakness DO BARBIE (81482) tissue disease (generalized) (9 sources.) Other Other Episodic Completed KAYLEE OCASIO [facility] Via aftercare (4 aftercare MD [facility] sources.) involving Hospital - internal [place] fixation (87921) device Other Other Episodic Completed ANTHONY MARTIN [facility] Via gastrointestin constipation Lia al disorders Hospital - (10 sources.) [place] (10685) External cause Other external no information no information KETAN WILLIS Not Available codes: cause status , (69993) Unspecified (8 Translations: sources.) [ OTHER EXTERNAL CAUSE STATUS] External cause Other external Episodic Completed OLYA WILLIS [facility] Via codes: cause status , MD [facility] Unspecified (2 Translations: Hospital - sources.) [ OTHER [place] EXTERNAL CAUSE (65575) STATUS] Other Other long Episodic Completed URMILA SUTHERLAND , Not Av ailable aftercare (8 term (current) (95478) sources.) drug therapy Adverse Other opiates no information no information OLYA REAL [facility] Via effects of and related , MD [facility] medical drugs narcotics Hospital - (5 sources.) causing [place] adverse (11499) effects in therapeutic use Genitourinary Other Episodic Completed IRENE NEW Not Avail able symptoms and proteinuria (38583) ill-defined Translations: conditions (21 [ PERSONAL sources.) HISTORY OF OTHER DISEASES OF UR, PROTEINURIA, UNSPECIFIED, DYSURIA] Other skin Other Episodic Completed INA BARAJAS , [facility] Via disorders (5 specified [facility] sources.) disorders of Hospital - the skin and [place] subcutaneous (34614) tissue Adverse Other no information no information ANTHONY Velasquez ot Available effects of specified (28048) medical care procedures as (4 sources.) the cause of abnormal reaction of patient, or of later complication, without mention of misadventure at time of procedure Adverse Other Episodic Completed ANTHONY MARTIN [facility] Via effects of specified [facility] medical care procedures as Hospital - (1 source.) the cause of [place] abnormal (27492) reaction of patient, or of later complication, without mention of misadventure at time of procedure Other Other symptoms Episodic Completed RAHEL CHEEMA No t Available connective referable to MD (37922) tissue disease joint, (2 sources.) shoulder region Other Pain in joint, Episodic Completed JD WANG No t Available non-traumatic shoulder (67056) joint region disorders (5 sources.) Other Pain in right Episodic Completed LA NENA PONCE [facility] Via connective foot [facility] tissue disease Hospital - (4 sources.) [place] (79100) Melanomas of Personal Episodic Completed NATTY [facility] Via skin (3 history of BRUSHILOMANN , Lia sources.) malignant [facility] - melanoma of [place] skin (24603) Residual Personal Episodic Completed NATTY [facility] Via codes; history of BRUEGGEMANN , Lia unclassified other Hospital - (1 source.) complications [place] of , (83278) childbirth and the puerperium Screening and Personal Episodic Completed OLYA WILLIS [facility] V ia history of history of , [facility] use [facility] - and substance Translations: [place] abuse codes [ PERSONAL (64136) (17 sources.) HISTORY OF NICOTINE DEPENDENCE] Other Personal Episodic Completed NATTY [facility] Via circulatory history of BRUEGGEMANN , Lia disease (3 transient MD Hospital - sources.) ischemic [place] attack (TIA), (87577) and cerebral infarction without residual deficits Other Personal Episodic Completed ANTHONY MARITN [facility] Via circulatory history of Lia disease (9 transient Hospital - sources.) ischemic [place] attack (TIA), (13339) and cerebral infarction without residual deficits Unclassified Pure no information no information no name Not Available (2 sources.) hypercholester (42910) olemia, unspecified Other Soft tissue Episodic Completed OLYA WILLIS [facility] Vi a connective disorder, , [facility] tissue disease unspecified Hospital - (5 sources.) [place] (63884) Bacterial Streptococcus Episodic Completed IFEOMA REVEAL , Not Available infection; infection in (50896) unspecified conditions site (4 classified sources.) elsewhere and of unspecified site, streptococcus, group D [Enterococcus] Fracture of Trimalleolar Episodic Completed OLYA WILLIS [facility] Via lower limb (18 fracture, , [facility] sources[facility] closed Hospital - Translations: [place] [ OTH FRACTURE (04975) OF UPPER END OF RIGHT TIBIA, OTH FRACTURE OF UPPER AND LOWER END OF R, OTH FRACTURE OF UPPER AND LOWER END OF R] Other diseases Unspecified Episodic Completed OLYA WILLIS [facility] Via of kidney and disorder of , [facility] ureters (5 kidney and Hospital - sources.) ureter [place] (00768) External cause Unspecified no information no information OLYA WILLIS Not Available codes: Fall (8 fall , (43507) sources.) Translations: [ FALL SAME LEV FROM SLIP/TRIP W/O STRIKE ] Other nervous Unspecified no information no information URMILA SUTHERLAND , Not Available system mononeuropathy (57643) disorders (14 of bilateral sources.) lower limbs Other nervous Unspecified no information no information URMILA SUTHERLAND Not Available system mononeuropathy (21310) disorders (14 of bilateral sources.) upper limbs External cause Unspecified no information no information IRENE MORAES DO Not Available codes: Place place in (13686) of occurrence unspecified (4 sources.) non-[facility] residence as the place of occurrence of the external cause External cause Unspecified Episodic Completed IRENE KIRKLAND DO [facility] Via codes: Place place in [facility] of occurrence unspecified Hospital - (1 source.) non-[facility] ([facility]) ([address]277) residence as the place of occurrence of the external cause Urinary tract Urinary tract Episodic Completed OLYA WILLIS [facility] Via infections (9 infection, , [facility] sources.) site not Hospital - specified [place] (81029) Procedures Procedure Normalized Procedure Procedure Result Performer Facility Date OP RED-INT FIX no information no name Not Available ( 74202) TIB/FIBUL 05-05-2014 Open reduction of no information no name [facility] V ia Lia fracture with internal [facility] fixation, tibia and (49422) fibula 04-12-2014 Open reduction of no information no name [facility] V ia Lia fracture with [facility] fixation, tibia and (89948) fibula Immunizations Normalized Immunization Date Notes [facility] influenza, 11-27-2019 no information no name [facility] ealt injectable, [facility] quadrivalent, [facility] contains (16239) preservative pneumococcal 11-27-2019 no information no name [facility] conjugate vaccine, [facility] 13 valent [facility] (86509) tetanus toxoid, 11-27-2019 no information no name [facility] reduced diphtheria [facility] toxoid, and [facility] acellular pertussis (02504) vaccine, adsorbed zoster vaccine 11-27-2019 no information no name Counts include 234 beds at the [facility] recombinant [facility] (25098) no information 07-12-2018 no information SERGIO KARISSA 570[address] A scension Via [facility] (53711) Results Test Name Value Interpretation Reference Range Date Time Fa cility (Normalized) (Normalized) (Medline Reference) not yet categorized on 2019-09-06 Exp date 05/2021 (no code) [facility] (05754) Lot 6.7~6.2~0552 (no code) [facility] (25133) not yet categorized on 2019-03-17 COMMENT no information (no code) [facility] (74972) medMATCH CONSISTENT (no code) [facility]mp[facility] (29162) medMATCH CONSISTENT (no code) [facility] Barbiturates [facility] (00531) medMATCH CONSISTENT (no code) [facility] Benzodiazepines [facility] (91365) medMATCH Cocaine CONSISTENT (no code) [facility] (97917) medMATCH Codeine CONSISTENT (no code) [facility] (74367) medMATCH CONSISTENT (no code) [facility] (55709) medMATCH CONSISTENT (no code) [facility] Hydrom[facility] (97718) medMATCH CONSISTENT (no code) [facility] Marijuana Metab [facility] (17328) medMATCH CONSISTENT (no code) [facility] Methadone [facility] (18990) medMATCH CONSISTENT (no code) [facility] Morphine [facility] (62891) medMATCH CONSISTENT (no code) [facility] Norhydrocodone [facility] (89550) medMATCH CONSISTENT (no code) [facility] Noroxycodone [facility] (51479) medMATCH CONSISTENT (no code) [facility] Oxycodone [facility] (23022) medMATCH CONSISTENT (no code) [facility] Oxymorphone [facility] (45732) medMATCH CONSISTENT (no code) [facility] Phencyclidine [facility] (98345) Prescribed Drug Oxycodone (no code) [facility] 1 [facility] (15522) laboratory on 2019-03-17 Amphetamines Ql Negative (no code) [facility] th (U) [facility] (95525) Barbiturates Ql Negative (no code) [facility] th (U) [facility] (64350) Benzodiazepines Negative (no code) [facility] th Ql (U) [facility] (00066) Benzoylecgonine Negative (no code) [facility] Ql (U) [facility] (42986) Codeine (U) Negative (no code) [facility] [Mass/Vol] [facility] (89889) Creatinine (U) 93.5 mg/dL (no code) [facility] [Mass/Vol] [facility] (50717) Hydrocodone (U) Negative (no code) [facility] [Mass/Vol] [facility] (90950) Hydromorphone Negative (no code) [facility] h (U) [Mass/Vol] [facility] (87270) Methadone Ql (U) Negative (no code) [facility] (53390) Morphine (U) Negative (no code) [facility] [Mass/Vol] [facility] (38226) Norhydrocodone Negative (no code) [facility] h Confirm (U) [facility] [Mass/Vol] [facility] (15832) Noroxycodone 385 (H) [facility] Confirm (U) [facility] [Mass/Vol] [facility] (59772) Opiates Ql (U) Negative (no code) [facility] (11689) Oxidants Ql (U) Negative (no code) [facility] (28297) Oxycodone (U) 977 (H) [facility] [Mass/Vol] [facility] (25528) Oxycodone Ql (U) Positive (A) [facility] (72215) Oxymorphone (U) 5426 (H) [facility] [Mass/Vol] [facility] (54339) pH (U) 6.29 [pH] (no code) 4.6 - 8 [pH] [facility] (70954) Phencyclidine Ql Negative (no code) [facility] (U) [facility] (90373) Tetrahydrocannab Negative (no code) [facility] inol Ql (U) [facility] (20624) other on 2018-10-07 Exp date 6.2~6.1~0932~092 (no code) [facility] 020 [facility] (61778) hematology on 2017-07-16 ESR (Bld) 61 mm/h (H) 07-16-2017 Not Available [Velocity] 07:58-0400 (01527) Vital Signs Vital Sign Value Interpretation Reference Date Time Care Prov ider Facility (Normalized) (Normalized) Range BMI (Body Mass 27.93 kg/m2 (no code) 15 - 25 kg/m2 01-13-2019 [facility] Index) 11:20-0400 74539 [facility] (43723) BMI (Body Mass 27.43 kg/m2 (no code) 15 - 25 kg/m2 09-16-2018 [facility] Community Index) 14:00-0500 15336 [facility] (62921) BMI (Body Mass 27.43 kg/m2 (no code) 15 - 25 kg/m2 09-02-2018 [facility] Community Index) 10:40-0500 95287 [facility] (56493) BMI (Body Mass 28.11 kg/m2 (no code) 15 - 25 kg/m2 06-17-2018 [facility] Index) 11:20-0400 46369 [facility] (89645) BMI (Body Mass 28.04 kg/m2 (no code) 15 - 25 kg/m2 05-13-2018 [facility] Community Index) 12:40-0400 17552 [facility] (17237) BMI (Body Mass 28.53 kg/m2 (no code) 15 - 25 kg/m2 04-22-2018 [facility] Community Index) 12:00-0400 44829 [facility] (88718) Body 98.6 [degF] (no code) 97.8 - 99.0 01-13-2019 SERGIO GONZALEZ Community Temperature [degF] 11:200400 68901 [facility] (11591) Body 97.7 [degF] (no code) 97.8 - 99.0 09-16-2018 SERGIO GONZALEZ Community Temperature [degF] 14:000500 16733 [facility] (16368) Body 97.4 [degF] (no code) 97.8 - 99.0 09-02-2018 OLYA RAMIREZ Community Temperature [degF] 10:40-0500 49022 [facility] (09173) Body 99 [degF] (no code) 97.8 - 99.0 06-17-2018 [facility] Temperature [degF] 11:200400 52691 [facility] (65882) Body 98.1 [degF] (no code) 97.8 - 99.0 05-13-2018 SERGIO GONZALEZ [facility] Temperature [degF] 12:40-0400 07814 [facility] (26745) Body 98 [degF] (no code) 97.8 - 99.0 04-22-2018 [facility] Temperature [degF] 12:000400 31338 [facility] (89547) Body weight 69.26 kg (no code) kg 01-13-2019 [facility] 11:200400 [address] [place] [address] (01854) Height 157.48 cm (no code) cm 01-13-2019 SERGIO HANCOCK [facility] 11:200400 [address] [place] [address] (99260) Height 157.48 cm (no code) cm 09-16-2018 SERGIO HANCOCK [facility] 14:000500 [address] [place] [address] (41034) Height 157.48 cm (no code) cm 09-02-2018 [facility] 10:400500 [address] [place] [address] (90273) Height 157.48 cm (no code) cm 06-17-2018 SERGIO HANCOCK [facility] 11:200400 [address] [place] [address] (88492) Height 157.48 cm (no code) cm 05-13-2018 SERGIO HANCOCK [facility] 12:400400 [id number] [place] [address] (40064) Height 157.48 cm (no code) cm 04-22-2018 SERGIO HANCOCK [facility] 12:00-[address] [place] [address] (16001) Pulse Oximetry 0 % (no code) 95 - 100 % 09-02-2018 [facility] 10:40-[id number] [place] [address] ([id number]) Pulse Oximetry 97 % (no code) 95 - 100 % 05-13-2018 [facility] 12:400400 [address] [place] [address] (38603) Weight 68.04 kg (no code) kg 09-16-2018 SERGIO HANCOCK [facility] 14:00-0500 54003 [facility] (77098) Weight 68.04 kg (no code) kg 09-02-2018 OLYA Ramirez [facility] 10:40-[id number] [place] [address] (65387) Weight 69.72 kg (no code) kg 06-17-2018 SERGIO HANCOCK [facility] 11:20-[address] [place] [address] (72041) Weight 69.54 kg (no code) kg 05-13-2018 SERGIO HANCOCK [facility] 12:40-[address] [place] [address] (55771) Weight 70.76 kg (no code) kg 04-22-2018 SERGIO Pedro [facility] 12:00-[address] [place] [address] (07579) Interventions No Information Plan of Treatment Normalized Care Care Detail Care Activity Date Care Provider F acility Activity (ACUTE) Acute Visit [facility] 08-12-[id number] [place] [address] ([id number]) (ACUTE) Acute Visit [facility] 09-16-2018 OLYA WILLIS [address] [place] [address] (82090) (ACUTE) Acute Visit [facility] 10-07-2018 OLYA WILLIS [address] [place] [address] (88503) (ACUTE) Acute Visit [facility] 11-02-2018 OLYA WILLIS [address] [place] [address] ([id number]) Goals Patient Goal Desired Goal no information no information Social History Normalized Code Original Code Date Value no information no information 04-24-2016 Denies Use no information no information 08-21-2011 No no information no information 07-12-2018 Cigarettes no information no information 07-12-2018 N - hysterectom y 2006 Sex Assigned At Sex Assigned At no information F emale Functional Status The data below is from unstructured sources Query Response Date Ildefonso rded Patient Orientation Person Place Time Situation September 02, 2014 1:49pm Comprehension Ability Understands Co ncepts September 02, 2014 5:30am Query Response Date Ildefonso rded Patient Orientation Person Place Time Situation Eyes Open Normal For Age August 14, 2014 2:33pm Comprehension Ability Understands Co ncepts August 14, 2014 9:00am Query Response Date Ildefonso rded Patient Orientation Person Place Time Situation May 09, 2014 10:34am Mental Status The data below is from unstructured sourcesNo Mental Status Information Available Encounters Encounter Normalized Encounter Encounter Diagnosis Care Provi vamshi Organization Date Type 07-15-2018 (ACUTE) Acute Visit no information SERGIO HANCOCK (no [facility] phone) (no phone) 08-23-2019 Discharged Recurring no information (no phone) As cension Via [facility] (no phone) 08-23-2019 06-23-2019 Discharged Recurring no information SERGIO HANCOCK no organization name - Work Phone: 06-27-2019 07-12-2018 Emergency department no information no name no organization name - patient visit 07-12-2018 07-12-2018 Emergency department no information no name no organization name - patient visit 07-12-2018 04-24-2016 Emergency department no information no name no organization name - patient visit 04-24-2016 11-12-2013 Emergency department no information no name no organization name - patient visit 11-12-2013 11-11-2013 Emergency department no information no name no organization name - patient visit 11-11-2013 11-15-2016 Evaluation and no information no name no organ ization name - management of 11-15-2016 inpatient 04-11-2014 Evaluation and no information no name no organ ization name - management of 04-15-2014 inpatient 07-12-2018 Patient encounter no information no name no or ganization name 05-13-2018 Patient encounter no information no name no or ganization name 03-29-2018 Patient encounter no information no name no or ganization name 03-25-2018 Patient encounter no information no name no or ganization name 12-23-2017 Patient encounter no information no name no or ganization name 11-09-2017 Patient encounter no information no name no or ganization name 09-28-2017 Patient encounter no information no name no or ganization name 09-07-2017 Patient encounter no information no name no or ganization name - 11-08-2017 08-24-2017 Patient encounter no information no name no or ganization name 08-21-2017 Patient encounter no information no name no or ganization name 08-10-2017 Patient encounter no information no name no or ganization name 08-04-2017 Patient encounter no information no name no or ganization name NEG Patient encounter no information no name no or ganization name 07-25-2017 07-19-2017 Patient encounter no information no name no or ganization name 07-13-2017 Patient encounter no information no name no or ganization name - 07-24-2017 07-06-2017 Patient encounter no information no name no or ganization name 06-29-2017 Patient encounter no information no name no or ganization name - 07-05-2017 05-27-2017 Patient encounter no information no name no or ganization name 05-25-2017 Patient encounter no information no name no or ganization name - 05-25-2017 05-04-2017 Patient encounter no information no name no or ganization name - 05-17-2017 03-23-2017 Patient encounter no information no name no or ganization name - 03-29-2017 02-02-2017 Patient encounter no information no name no or ganization name - 02-15-2017 01-04-2017 Patient encounter no information no name no or ganization name 12-10-2016 Patient encounter no information no name no or ganization name 11-11-2016 Patient encounter no information no name no or ganization name - 11-15-2016 11-10-2016 Patient encounter no information no name no or ganization name - 11-16-2016 10-14-2016 Patient encounter no information no name no or ganization name 10-09-2016 Patient encounter no information no name no or ganization name 09-03-2016 Patient encounter no information no name no or ganization name 08-17-2016 Patient encounter no information no name no or ganization name 08-10-2016 Patient encounter no information no name no or ganization name - 10-08-2016 06-08-2016 Patient encounter no information no name no or ganization name 06-01-2016 Patient encounter no information no name no or ganization name 04-23-2016 Patient encounter no information no name no or ganization name - 04-24-2016 02-20-2016 Patient encounter no information no name no or ganization name - 02-26-2016 01-27-2016 Patient encounter no information no name no or ganization name 01-07-2016 Patient encounter no information no name no or ganization name 11-28-2015 Patient encounter no information no name no or ganization name 11-18-2015 Patient encounter no information no name no or ganization name 09-06-2015 Patient encounter no information no name no or ganization name 04-11-2015 Patient encounter no information no name no or ganization name 04-04-2015 Patient encounter no information no name no or ganization name 03-27-2015 Patient encounter no information no name no or ganization name 03-20-2015 Patient encounter no information no name no or ganization name 03-11-2015 Patient encounter no information no name no or ganization name 03-06-2015 Patient encounter no information no name no or ganization name 01-31-2015 Patient encounter no information no name no or ganization name 01-24-2015 Patient encounter no information no name no or ganization name 01-19-2015 Patient encounter no information no name no or ganization name 01-18-2015 Patient encounter no information no name no or ganization name 01-17-2015 Patient encounter no information no name no or ganization name 01-11-2015 Patient encounter no information no name no or ganization name - 03-04-2015 01-07-2015 Patient encounter no information no name no or ganization name 01-01-2015 Patient encounter no information no name no or ganization name 12-13-2014 Patient encounter no information no name no or ganization name - 03-05-2015 11-19-2014 Patient encounter no information no name no or ganization name - 11-20-2014 05-14-2014 Patient encounter no information no name no or ganization name - 05-14-2014 02-21-2014 Patient encounter no information no name no or ganization name 02-12-2014 Patient encounter no information no name no or ganization name 09-19-2013 Patient encounter no information no name no or ganization name - 10-05-2013 05-11-2013 Patient encounter no information no name no or ganization name - 06-19-2013 04-21-2013 Patient encounter no information no name no or ganization name - 04-22-2013 02-20-2013 Patient encounter no information no name no or ganization name - 02-20-2013 02-16-2013 Patient encounter no information no name no or ganization name - 03-08-2013 02-15-2013 Patient encounter no information no name no or ganization name 01-03-2013 Patient encounter no information no name no or ganization name 10-04-2012 Patient encounter no information no name no or ganization name - 10-04-2012 09-20-2012 Patient encounter no information no name no or ganization name - 09-20-2012 03-29-2020 Patient encounter no information [facility] WILLIS [facility] (no phone) [facility] (no phone) 02-23-2020 Patient encounter no information [facility]A WILLIS [facility] phone) [facility] (no phone) 02-15-2020 Patient encounter no information OLYA WILLIS ([facility] procedure phone) [facility] (no phone) 02-01-2020 Patient encounter no information OLYA WILLIS ([facility] procedure phone) [facility] (no phone) 10-19-2019 Patient encounter no information no name no or ganization name procedure 10-05-2019 Patient encounter no information no name no or ganization name procedure 09-20-2019 Patient encounter no information no name no or ganization name procedure 09-06-2019 Patient encounter no information no name no or ganization name procedure 08-23-2019 Patient encounter no information no name no or ganization name - procedure 08-23-2019 08-18-2019 Patient encounter no information no name no or ganization name procedure 08-11-2019 Patient encounter no information no name no or ganization name procedure 08-04-2019 Patient encounter no information no name no or ganization name procedure 08-03-2019 Patient encounter no information no name no or ganization name procedure 07-28-2019 Patient encounter no information no name no or ganization name procedure 07-28-2019 Patient encounter no information no name no or ganization name procedure 07-21-2019 Patient encounter no information no name no or ganization name procedure 07-14-2019 Patient encounter no information no name no or ganization name procedure 07-07-2019 Patient encounter no information no name no or ganization name procedure 07-06-2019 Patient encounter no information no name no or ganization name procedure 06-30-2019 Patient encounter no information no name no or ganization name procedure 06-27-2019 Patient encounter no information no name no or ganization name procedure 06-26-2019 Patient encounter no information no name no or ganization name procedure 06-23-2019 Patient encounter no information no name no or ganization name - procedure 06-26-2019 06-23-2019 Patient encounter no information no name no or ganization name - procedure 06-25-2019 06-20-2019 Patient encounter no information no name no or ganization name procedure 06-14-2019 Patient encounter no information no name no or ganization name procedure 06-09-2019 Patient encounter no information no name no or ganization name procedure 06-06-2019 Patient encounter no information no name no or ganization name procedure 05-31-2019 Patient encounter no information no name no or ganization name procedure 05-24-2019 Patient encounter no information no name no or ganization name procedure 05-23-2019 Patient encounter no information no name no or ganization name procedure 05-09-2019 Patient encounter no information no name no or ganization name procedure 05-05-2019 Patient encounter no information no name no or ganization name procedure 04-28-2019 Patient encounter no information no name no or ganization name procedure 04-25-2019 Patient encounter no information no name no or ganization name procedure 04-21-2019 Patient encounter no information no name no or ganization name procedure 04-14-2019 Patient encounter no information no name no or ganization name procedure 04-12-2019 Patient encounter no information no name no or ganization name procedure 04-07-2019 Patient encounter no information no name no or ganization name procedure 03-29-2019 Patient encounter no information no name no or ganization name procedure 03-28-2019 Patient encounter no information no name no or ganization name procedure 03-17-2019 Patient encounter no information no name no or ganization name procedure 02-17-2019 Patient encounter no information no name no or ganization name procedure 01-13-2019 Patient encounter no information no name no or ganization name procedure 11-28-2018 Patient encounter no information no name no or ganization name procedure 11-02-2018 Patient encounter no information no name no or ganization name procedure 10-07-2018 Patient encounter no information no name no or ganization name procedure 09-16-2018 Patient encounter no information no name no or ganization name procedure 08-21-2017 Patient encounter no information no name no or ganization name procedure 08-04-2017 Patient encounter no information no name no or ganization name procedure 07-13-2017 Patient encounter no information no name no or ganization name - procedure 07-23-2017 07-06-2017 Patient encounter no information no name no or ganization name procedure 07-02-2017 Patient encounter no information no name no or ganization name procedure 06-22-2017 Patient encounter no information no name no or ganization name procedure 06-15-2017 Patient encounter no information no name no or ganization name procedure 05-25-2017 Patient encounter no information no name no or ganization name - procedure 05-25-2017 05-25-2017 Patient encounter no information no name no or ganization name procedure 05-18-2017 Patient encounter no information no name no or ganization name procedure 05-18-2017 Patient encounter no information no name no or ganization name procedure 05-04-2017 Patient encounter no information no name no or ganization name procedure 05-04-2017 Patient encounter no information no name no or ganization name - procedure 05-16-2017 04-20-2017 Patient encounter no information no name no or ganization name procedure 04-13-2017 Patient encounter no information no name no or ganization name procedure 04-06-2017 Patient encounter no information no name no or ganization name procedure 03-30-2017 Patient encounter no information no name no or ganization name procedure 03-30-2017 Patient encounter no information no name no or ganization name procedure 03-30-2017 Patient encounter no information no name no or ganization name procedure 03-25-2017 Patient encounter no information no name no or ganization name procedure 03-23-2017 Patient encounter no information no name no or ganization name - procedure 03-28-2017 03-09-2017 Patient encounter no information no name no or ganization name procedure 03-04-2017 Patient encounter no information no name no or ganization name procedure 02-16-2017 Patient encounter no information no name no or ganization name procedure 02-16-2017 Patient encounter no information no name no or ganization name procedure 02-09-2017 Patient encounter no information no name no or ganization name procedure 02-02-2017 Patient encounter no information no name no or ganization name - procedure 02-14-2017 01-28-2017 Patient encounter no information no name no or ganization name procedure 01-26-2017 Patient encounter no information no name no or ganization name procedure 01-19-2017 Patient encounter no information no name no or ganization name procedure 01-12-2017 Patient encounter no information no name no or ganization name procedure 01-04-2017 Patient encounter no information no name no or ganization name procedure 12-29-2016 Patient encounter no information no name no or ganization name procedure 12-10-2016 Patient encounter no information no name no or ganization name procedure 12-08-2016 Patient encounter no information no name no or ganization name procedure 12-01-2016 Patient encounter no information no name no or ganization name procedure 11-17-2016 Patient encounter no information no name no or ganization name procedure 11-17-2016 Patient encounter no information no name no or ganization name procedure 11-10-2016 Patient encounter no information no name no or ganization name - procedure 11-15-2016 11-09-2016 Patient encounter no information no name no or ganization name procedure 11-03-2016 Patient encounter no information no name no or ganization name procedure 10-27-2016 Patient encounter no information no name no or ganization name procedure 10-14-2016 Patient encounter no information no name no or ganization name procedure 09-03-2016 Patient encounter no information no name no or ganization name procedure 08-17-2016 Patient encounter no information no name no or ganization name procedure 08-10-2016 Patient encounter no information no name no or ganization name - procedure 10-07-2016 06-01-2016 Patient encounter no information no name no or ganization name procedure 02-20-2016 Patient encounter no information no name no or ganization name - procedure 02-25-2016 01-27-2016 Patient encounter no information no name no or ganization name procedure 11-18-2015 Patient encounter no information no name no or ganization name procedure 09-06-2015 Patient encounter no information no name no or ganization name procedure 04-11-2015 Patient encounter no information no name no or ganization name procedure 04-04-2015 Patient encounter no information no name no or ganization name procedure 03-27-2015 Patient encounter no information no name no or ganization name procedure 01-31-2015 Patient encounter no information no name no or ganization name procedure 01-18-2015 Patient encounter no information no name no or ganization name procedure 01-17-2015 Patient encounter no information no name no or ganization name procedure 01-11-2015 Patient encounter no information no name no or ganization name - procedure 03-04-2015 01-07-2015 Patient encounter no information no name no or ganization name procedure 01-01-2015 Patient encounter no information no name no or ganization name procedure 11-19-2014 Patient encounter no information no name no or ganization name - procedure 11-20-2014 05-14-2014 Patient encounter no information no name no or ganization name - procedure 05-14-2014 02-21-2014 Patient encounter no information no name no or ganization name procedure 02-12-2014 Patient encounter no information no name no or ganization name procedure 12-24-2011 Patient encounter no information no name no or ganization name - procedure 01-21-2012 06-30-2019 Registered Recurring no information SERGIO HANCOCK no organization name no information Encounter for general no name no organ ization name adult medical examination without abnormal findings no information Pre-operative no name no organization name examination, unspecified Medical Equipment Equipment Code (if Equipment Original Equipment Identifier P rocedure Code (if Dates provided) Text (if provided) (if provided) provided) no information use with insulin no information (no no informati on 07-28-2016 named assigning authority) no information check blood sugar no information (no no informat ion 12-01-2016 named assigning authority) no information USE WITH INSULIN no information (no no informati on no information PENS THREE TIMES A named assigning DAY authority) no information use with insulin no information (no no informati on 07-28-2016 named assigning authority) no information check blood sugar no information (no no informat ion 12-01-2016 named assigning authority) no information USE WITH INSULIN no information (no no informati on no information PENS THREE TIMES A named assigning DAY authority) no information check blood sugar no information (no no informat ion 12-01-2016 named assigning authority) no information as directed no information (no no information n o information named assigning authority) no information as directed no information (no no information 1 12-15-2017 named assigning authority) no information use with insulin no information (no no informati on 07-28-2016 named assigning authority) no information check blood sugar no information (no no informat ion 12-01-2016 named assigning authority) no information as directed no information (no no information n o information named assigning authority) no information USE WITH INSULIN no information (no no informati on no information PENS THREE TIMES A named assigning DAY authority) no information USE WITH INSULIN no information (no no informati on no information PENS THREE TIMES A named assigning DAY authority) Payers Normalized Payer Value Private Health Insurance no information [id number]) Evaluation note Note Type Note Facility Evaluation No Assessments Information Available A scension note Via [facility] ([id number]) Summary Purpose eClinicalWorks SubmissioneClinicalWorks SubmissioneClinicalWorks SubmissioneClinicalWorks SubmissioneClinicalWorks SubmissioneClinicalWorks SubmissioneClinicalWorks SubmissioneClinicalWorks SubmissioneClinicalWorks SubmissioneClinicalWorks SubmissioneClinicalWorks SubmissioneClinicalWorks SubmissioneClinicalWorks SubmissioneClinicalWorks SubmissioneClinicalWorks SubmissioneClinicalWorks SubmissioneClinicalWorks SubmissioneClinicalWorks SubmissioneClinicalWorks SubmissioneClinicalWorks SubmissioneClinicalWorks SubmissioneClinicalWorks SubmissioneClinicalWorks SubmissioneClinicalWorks SubmissioneClinicalWorks SubmissioneClinicalWorks SubmissioneClinicalWorks SubmissioneClinicalWorks SubmissioneClinicalWorks SubmissioneClinicalWorks SubmissioneClinicalWorks SubmissioneClinicalWorks SubmissioneClinicalWorks SubmissioneClinicalWorks SubmissioneClinicalWorks SubmissioneClinicalWorks SubmissioneClinicalWorks Submission Advance Directives Directive Response Recor ded Date/Time Advance Directives No 4:16am Health Care Power of Physical Laboratory Assistant No 04/24/16 4:16am Organ Donor Yes 04/24/16 4:16am Directive Response Recor ded Date/Time Advance Directives No 2:43pm Health Care Power of Physical Laboratory Assistant No 07/10/16 2:43pm Organ Donor Yes 07/10/16 2:43pm Directive Response Recor ded Date/Time Advance Directives No 10:52am Health Care Power of Physical Laboratory Assistant No 11/11/16 10:52am Organ Donor Yes 11/11/16 10:52am Directive Response Recor ded Date/Time Advance Directives No 2:03pm Health Care Power of Physical Laboratory Assistant No 12/29/16 2:03pm Organ Donor Yes 12/29/16 2:03pm Directive Response Recor ded Date/Time Advance Directives No 4:16am Health Care Power of Physical Laboratory Assistant No 04/24/16 4:16am Organ Donor Yes 04/24/16 4:16am Resuscitation Status Full Code 04/24/16 4:16am Directive Response Recor ded Date/Time Advance Directives No 4:43pm Health Care Power of Physical Laboratory Assistant No 12/31/14 4:43pm Organ Donor Yes 12/31/14 4:43pm Directive Response Recor ded Date/Time Advance Directives No 6:09am Health Care Power of Physical Laboratory Assistant No 09/02/14 6:09am Organ Donor Yes 09/02/14 6:09am Resuscitation Status Full Code 09/02/14 6:09am Directive Response Recor ded Date/Time Advance Directives No 11:04am Health Care Power of Physical Laboratory Assistant No 05/09/14 11:04am Organ Donor Yes 05/09/14 11:04am Directive Response Recor ded Date Advance Directives N 11:41am Health Care Power of Physical Laboratory Assistant N 02/20/13 11:41am Organ Donor Y 02/20/13 1 1:41am Directive Response Recor ded Date/Time Advance Directives No 3:20am Health Care Power of Physical Laboratory Assistant No 08/14/14 3:20am Organ Donor Yes 08/14/14 3:20am Resuscitation Status Full Code 08/14/14 3:20am Directive Response Recor ded Date/Time Advance Directives No 7:43pm Health Care Power of Physical Laboratory Assistant No 05/02/14 7:43pm Organ Donor Yes 05/02/14 7:43pm Resuscitation Status Full Code 05/02/14 7:43pm Directive Response Recor ded Date/Time Advance Directives No 4:43pm Health Care Power of Physical Laboratory Assistant No 12/31/14 4:43pm Organ Donor Yes 12/31/14 4:43pm Resuscitation Status Full Code 12/31/14 4:43pm Directive Response Recor ded Date/Time Advance Directives No 6:09am Health Care Power of Physical Laboratory Assistant No 09/02/14 6:09am Organ Donor Yes 09/02/14 6:09am Directive Response Recor ded Date/Time Advance Directives No 1:25pm Health Care Power of Physical Laboratory Assistant No 04/06/17 1:25pm Organ Donor Yes 04/06/17 1:25pm Directive Response Recor ded Date/Time Advance Directives No 11:55am Health Care Power of Physical Laboratory Assistant No 09/07/17 11:55am Organ Donor Yes 09/07/17 11:55am Resuscitation Status Full Code 09/07/17 11:55am Directive Response Recor ded Date/Time Advance Directives No 9:02am Health Care Power of Physical Laboratory Assistant No 07/12/18 9:02am Organ Donor Yes 07/12/18 9:02am Advance Directive Response Recorded Date/Time Advance Directives No ptember 2017 9:02am Health Care Power of Physical Laboratory Assistant No July 12, 2018 9:02am Organ Donor Yes Ayanna r 2017 9:02am Discharge Instructions No hospital discharge instructions.Current inpatient/outpatient. Discharge instructions are currently unavailable.Current inpatient/outpatient. Discharge instructions are currently unavailable.Current inpatient/outpatient. Discharge instructions are currently unavailable.No hospital discharge instructions.No hospital discharge instructions.Current inpatient/outpatient. Discharge instructions are currently unavailable. Patient Instructions Physician Instructions New, Converted or Re-Newed RX: Call to Patients Pharmacy Goal/Follow Up Appt: Follow- up with Dr. Willis in 1-2 wk. Discharge Diet: ADA Diet No hospital discharge instructions.No hospital discharge instructions.No hospital discharge instructions. Patient Instructions Physician Instructions No hospital discharge instructions. Patient Instructions Physician Instructions New, Converted or Re-Newed RX: Call to Patients Pharmacy Goal/Follow Up Appt: Patient was on home health and will continue as outpatient as previously ordered, Follow up with Dr. More in 1 week Discharge Diet: ADA Diet Activity as Tolerated: Yes No hospital discharge instructions.No hospital discharge instructions.No hospital discharge instructions.No hospital discharge instruction information available.Current inpatient/outpatient. Discharge instructions are currently unavailable.No hospital discharge instruction information available.Current inpatient/outpatient. Discharge instructions are currently unavailable. Additional Source Comments This clinical document has been generated using [employer] software that has been certified by the Office of the National Coordinator for Health Information Technology (ONC 15.99.04.3023.Diam.[id number]) and the National Committee for [employer] (NCQA, as an eMeasure certified technology). FOR RECORDS PERTAINING TO PATIENTS WHO ARE OR HAVE BEEN ENROLLED IN A CHEMICAL D EPENDENCY/SUBSTANCE ABUSE PROGRAM, SOME INFORMATION MAY BE OMITTED. This clinica l summary was aggregated from multiple sources. Caution should be exercised in using it in the provision of clinical care. This summary normalizes information from multiple sources, and as a consequence, information in this document may ma terially change the coding, format and clinical context of patient data. In jojo tion, data may be omitted in some cases. CLINICAL DECISIONS SHOULD BE BASED ON T HE PRIMARY CLINICAL RECORDS. [email or web address] provides no warranty or guara ntee of the accuracy or completeness of information in this document.The [facility] is based on time limited clinical information UNRECOGNIZED CONTENT PROVIDED BELOW FOR UNRECOGNIZED SECTION MEDICAL (GENERAL) HISTORY Type Description Date Medical History osteoporosis Medical History hyperkalemia- resolved Surgical History right leg/ankle froylan jhonathan x 11 Surgical History cholecystecomy Surgical History C section x 2 Surgical History malignant melanoma off of back Surgical History carpal tunnel x 3 Surgical History left rotator cuff repair Hospitalization History surgeries Hospitalization History B/p Hospitalization History [facility], was there for 4 day at oct 2016 Type Description Date Medical History osteoporosis Medical History hyperkalemia- resolved Medical History dailysis Surgical History right leg/ankle froylan jhonathan x 11 Surgical History cholecystecomy Surgical History C section x 2 Surgical History malignant melanoma off of back Surgical History carpal tunnel x 3 Surgical History left rotator cuff repair Surgical History temporary port on r ight side Hospitalization History surgeries Hospitalization History B/p Hospitalization History [facility], was there for 4 day at oct 2016 Type Description Date Medical History osteoporosis Medical History hyperkalemia- resolved Medical History dailysis Surgical History right leg/ankle froylan jhonathan x 11 Surgical History cholecystecomy Surgical History C section x 2 Surgical History malignant melanoma off of back Surgical History carpal tunnel x 3 Surgical History left rotator cuff repair Surgical History temporary port on r ight side Hospitalization History surgeries Hospitalization History B/p Hospitalization History [facility], was there for 4 day at oct 2016 Hospitalization History Pneumonia [facility] 06/2018 Type Description Date Medical History osteoporosis Medical History hyperkalemia- resolved Medical History dailysis Surgical History right leg/ankle froylan jhonathan x 11 Surgical History cholecystecomy Surgical History C section x 2 Surgical History malignant melanoma off of back Surgical History carpal tunnel x 3 Surgical History left rotator cuff repair Surgical History temporary port on r ight side Hospitalization History surgeries Hospitalization History B/p Hospitalization History [facility], was there for 4 day at oct 2016 [facility] Type Description Date Medical History osteoporosis Medical History hyperkalemia- resolved Medical History dailysis Surgical History right leg/ankle froylan jhonathan x 11 Surgical History cholecystecomy Surgical History C section x 2 Surgical History malignant melanoma off of back Surgical History carpal tunnel x 3 Surgical History left rotator cuff repair Surgical History temporary port on r ight side Surgical History fistula in left arm 07/2018 Hospitalization History surgeries Hospitalization History B/p Hospitalization History [facility], was there for 4 day at oct 2016 Hospitalization History Pneumonia Ronna JAY- [facility] 06/2018 Hospitalization History fistula in left ar m 07/2018 UNRECOGNIZED CONTENT PROVIDED BELOW FOR UNRECOGNIZED SECTION REASON FOR VISIT wound f/u Right heel wound reevaluation CBrumbackRNOxycodone due 04/25Wound, PTs h usband notes it has been getting better-Andrés HERNANDEZ Controlled Med RefillControl led Med Refill 06/21wound f/u Pt in for wound check Juan, MAControlled Med Re fill 07/19Requests return callControlled Med RefillMedication questionCough / co ngestion- dry cough since wednesday Joycelyn HERNANDEZ , sinus pressure / no headaches / no dizzyness or lightheadedness Joycelyn hernandez , in [facility] in [facility] fo r7 days with pneumonia Joycelyn HERNANDEZ Controlled Med Refillmedication refillwound care - Andrés Mcgee AMedication [id number] suppliesControlled Med Refill 10/11EMR-Alec [id number] onlyWound care Pako hernandez
--- OUTSIDE RECORDS SUMMARY | 2020-04-01 19:23 | XMS REPORT ---
Author Author Josephine WILLIS Organization [facility] Address [address] [place] [address] Care Team Providers Care Nurse Transplant Name Role Phone OLYA WILLIS Unavailable PROBLEMS Type Condition ICD9-CM Code [id number] Code Onset Dates Condition S tatus SNOMED Code Problem Diabetes mellitus E11.9 Active 73 781433 Problem Hypertension I10 Active 3427262 3 Problem Paresthesias R20.2 Active 7905411 4 Problem Chronic kidney disease N18.9 Active 774550477 Problem Venous insufficiency I87.2 Active 87668274 Problem Diabetic polyneuropathy associated with type 2 d iabetes mellitus E11.42 Active 09613684 Problem Type 2 diabetes mellitus with diabetic autonomic (poly)neuropathy E11.43 Active 795703252 Problem Chronic skin ulcer with fat layer exposed L98.492 Active 23883885 Problem Chronic osteomyelitis of right foot with draining sinus M86.471 Active [id number] Problem PAD (peripheral artery disease) I73.9 Active 934167437 Problem Gastroparesis K31.84 Active 560854 006 Problem Seasonal allergic rhinitis due to other allergic trigger J30.89 Active 653776270 Problem GERD (gastroesophageal reflux disease) K21.9 Active 904972916 Problem Type 2 diabetes mellitus with foot ulcer E11.621 Active 57075469163040 Problem 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 Active 776506754 Problem Pressure ulcer of unspecified heel, stage 4 L89.60 4 Active 864043532 Problem Unsteady gait R26.81 Active 468446 08 ALLERGIES No Information ENCOUNTERS Encounter Location Date Diagnosis [facility] [address] [facility] [id number] [address] [place] [address] February, [facility] [address] [facility] [id number] [address] [place] [address] February, Chronic skin ulcer with fat layer exposed L98.492 [facility] [address] [id number] [address] [place] [address] Jan, [facility] [address] [id number] [address] [place], [place] [address] Jan, Chronic skin ulcer with fat layer exposed L98.492 [facility] [address] [id number] [address] [place] [address] Jan, [facility] [address] [id number] [address] [place] [address] Jan, Chronic skin ulcer with fat layer exposed L98.492 [facility] [address] [id number] [address] [place] [address] Dec, [facility] [address] [id number] [address] [place] [address] Dec, [facility] [address] [facility] [id number] [address] [place] [address] Dec, Chronic skin ulcer with fat layer exposed L98.492 [facility] [address] [id number] [address] [place] [address] Dec, [facility] [address] [facility] [id number] [address] [place] [address] Dec, Unsteady gait R26.81 [facility] [address] [id number] [address] [place] [address] Dec, Chronic skin ulcer with fat layer exposed L98.492 ; PAD (peripheral artery disease) I73.9 ; Unsteady gait R26.81 and Weakness of both lower extremities R29.898 [facility] [address] [id number] [address] [place] [address] Nov, [facility] [address] [id number] [address] [place] [address] Nov, [facility] [address] [facility] [id number] [address] [place] [address] Nov, [facility] [address] [facility] [id number] [address] [place] [address] Nov, Chronic skin ulcer with fat layer exposed L98.492 [facility] [address] [facility] [id number] [address] [place] [address] Oct, Chronic skin ulcer with fat layer exposed L98.492 [facility] [address] [facility] [id number] [address] [place] [address] Oct, [facility] [address] [id number] [address] [place] [address] Oct, [facility] [address] [facility] [id number] [address] [place] [address] Sep, Chronic skin ulcer with fat layer exposed L98.492 and Unsteady gait R26.81 [facility] [address] [facility] [id number] [address] [place] [address] Sep, [facility] [address] [facility] [id number] [address] [place] [address] Sep, Chronic skin ulcer with fat layer exposed L98.492 [facility] [address] [facility] [id number] [address] [place] [address] Aug, Chronic skin ulcer with fat layer exposed L98.492 [facility] [address] [facility] [id number] [address] [place] [address] Aug, [facility] [address] [facility] [id number] [address] [place] [address] Aug, Type 2 diabetes mellitus wit h foot ulcer E11.621 and Chronic skin ulcer with fat layer exposed L98.492 [facility] [address] [facility] [id number] [address] [place] [address] Jul, Chronic skin ulcer with fat layer exposed L98.492 [facility] [address] [facility] [id number] [address] [place] [address] Jul, [facility] [address] [place] [id number] [address] [place] [address] Jul, Chronic skin ulcer with fat layer exposed L98.492 [facility] [address] [facility] [id number] [address] [place] [address] Jun, Chronic skin ulcer with fat layer exposed L98.492 [facility] [address] [facility] [id number] [address] [place] [address] Jun, [facility] [address] [facility] [id number] [address] [place] [address] Jun, Chronic skin ulcer with fat layer exposed L98.492 [facility] [address] [facility] [id number] [address] [place] [address] May, Chronic skin ulcer with fat layer exposed L98.492 [facility] [address] [facility] [id number] [address] [place] [address] May, [facility] [address] [facility] [id number] [address] [place] [address] May, Chronic skin ulcer with fat layer exposed L98.492 [facility] [address] [facility] [id number] [address] [place] [address] Apr, Chronic skin ulcer with fat layer exposed L98.492 [facility] [address] [facility] [id number] [address] [place] [address] Apr, [address] [id number] [address] Apr, [facility] [address] [facility] [id number] [address] [place] [address] Apr, Chronic skin ulcer with fat layer exposed L98.492 [facility] [address] [facility] [id number] [address] [place] [address] Apr, Foot callus L84 and Nonheali ng wound of heel S91.309A [facility] [address] [facility] [id number] [address] [place] [address] Apr, [facility] [address] [id number] [address] Mar, [facility] [address] [id number] [address] [place] [address] Mar, Diabetes mellitus E11.9 and Chronic skin ulcer with fat layer exposed L98.492 [facility] [address] [id number] [address] [place] [address] Mar, Chronic skin ulcer with fat layer exposed L98.492 [facility] [address] [id number] [address] [place] [address] Mar, [facility] [address] [id number] [address] [place] [address] February, Chronic skin ulcer with fat layer exposed L98.492 and Encounter for medication monitoring Z51.81 [facility] [address] [id number] [address] [place] [address] February, [facility] [address] [id number] [address] [place] [address] February, Encounter for medication mon itoring Z51.81 [facility] [address] [id number] [address] [place] [address] February, [facility] [address] [facility] [id number] [address] [place] [address] February, [facility] [address] [id number] [address] [place] [address] February, [facility] [address] [id number] [address] [place] [address] Jan, Chronic skin ulcer with fat layer exposed L98.492 [facility] [address] [id number] [address] [place] [address] Jan, [facility] [address] [id number] [address] [place] [address] Dec, [facility] [address] [id number] [address] [place] [address] Dec, Diabetic polyneuropathy asso ciated with type 2 diabetes mellitus E11.42 and PAD (peripheral artery disease) I73.9 [facility] [address] [facility] [id number] [address] [place] [address] Dec, Chronic skin ulcer with fat layer exposed L98.492 [facility] [address] [id number] [address] [place] [address] Dec, [facility] [address] [id number] [address] [place] [address] Nov, [facility] [address] [facility] [id number] [address] [place] [address] Nov, Skin ulcer of right foot wit h fat layer exposed L97.512 [facility] [address] [facility] [id number] [address] [place] [address] Oct, [facility] [address] [facility] [id number] [address] [place] [address] Oct, Skin ulcer of right foot wit h fat layer exposed L97.512 [facility] [address] [facility] [id number] [address] [place] [address] Sep, Diabetes mellitus E11.9 [facility] [address] [facility] [id number] [address] [place] [address] Sep, [facility] [address] [facility] [id number] [address] [place] [address] Sep, [facility] [address] [facility] [id number] [address] [place] [address] Sep, [facility] [address] [facility] [id number] [address] [place] [address] Sep, Type 2 diabetes mellitus wit h foot ulcer E11.621 and Skin ulcer of right foot with fat layer exposed L97.512 [facility] [address] [facility] [id number] [address] [place] [address] Sep, Diabetes mellitus E11.9 [facility] [address] [id number] [address] [place] [address] Sep, [facility] [address] [id number] [address] [place] [address] Aug, [facility] [address] [facility] [id number] [address] [place] [address] Aug, [facility] [address] [id number] [address] [place] [address] Aug, 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 [facility] [address] [id number] [address] [place] [address] Aug, [facility] [address] [facility] [id number] [address] [place] [address] Aug, [facility] [address] [facility] [id number] [address] [place] [address] Aug, Bronchitis J40 [facility] [address] [facility] [id number] [address] [place] [address] Aug, [facility] [address] [facility] [id number] [address] [place] [address] Jul, [facility] [address] [facility] [id number] [address] [place] [address] Jul, Chronic skin ulcer with fat layer exposed L98.492 [facility] [address] [id number] [address] [place] [address] Jul, 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 [facility] [address] [id number] [address] [place] [address] Jun, [facility] [address] [id number] [address] [place] [address] Jun, [facility] [address] [facility] [id number] [address] [place] [address] May, [facility] [address] [facility] [id number] [address] [place] [address] May, Chronic skin ulcer with fat layer exposed L98.492 [facility] [address] [id number] [address] [place] [address] Apr, [place] [address] [facility] [id number] [address] [place] [address] Apr, Type 2 diabetes mellitus wit h foot ulcer E11.621 and Unsteady gait R26.81 [place] [address] [id number] [address] [place] [address] Mar, Decubitus ulcer of right mariana l, stage 3 L89.613 [place] [address] [facility] [id number] [address] [place] [address] Mar, [place] [address] [facility] [id number] [address] [place] [address] Mar, Pressure ulcer of unspecifie d heel, stage 4 L89.604 and Type 2 diabetes mellitus with foot ulcer E11.621 [place] [address] [facility] [id number] [address] [place] [address] Mar, Encounter for medication mon itoring Z51.81 [place] [address] [facility] [id number] [address] [place] [address] Mar, Type 2 diabetes mellitus wit h foot ulcer E11.621 and Non-pressure chronic ulcer of right heel and midfoot with unspecified severity L97.419 [place] [address] [facility] [id number] [address] [place] [address] February, [place] [address] [facility] [id number] [address] [place] [address] Jan, Right ankle pain M25.571 [place] [address] [facility] [id number] [address] [place] [address] Dec, Right ankle pain M25.571 [place] [id number] [facility] [id number] [address] [place] [address] Dec, [facility] [address] [facility] [id number] [address] [place] [address] Dec, [facility] [address] [facility] [id number] [address] [place] [address] Dec, Right ankle pain M25.571 [facility] [address] [facility] [id number] [address] [place] [address] Dec, Chronic skin ulcer with fat layer exposed L98.492 ; Type 2 diabetes mellitus with diabetic autonomic (poly)neuropathy E11.43 and Hypertension I10 [facility] [address] [facility] [id number] [address] [place] [address] Nov, [facility] [address] [place] [id number] [address] [place] [address] Nov, [facility] [address] [place] [id number] [address] [place] [address] Nov, [facility] [address] [place] [id number] [address] [place] [address] Nov, Right ankle pain M25.571 and Chronic osteomyelitis of right foot with draining sinus M86.471 [facility] [address] [place] [id number] [address] [place] [address] Oct, Right ankle pain M25.571 [facility] [address] [place] [id number] [address] [place] [address] Oct, [facility] [address] [place] [id number] [address] [place] [address] Sep, Diabetes mellitus E11.9 [facility] [address] [place] [id number] [address] [place] [address] Sep, Diabetic polyneuropathy asso ciated with type 2 diabetes mellitus E11.42 and Venous insufficiency I87.2 [facility] [address] [place] [id number] [address] [place] [address] Sep, Right ankle pain M25.571 [facility] [address] [id number] [address] [place] [address] Aug, Right ankle pain M25.571 [facility] [address] [id number] [address] [place] [address] Aug, Chronic osteomyelitis of rig ht foot with draining sinus M86.471 [facility] [address] [id number] [address] [place] [address] Aug, [facility] [address] [id number] [address] [place] [address] Aug, [facility] [address] [id number] [address] [place] [address] Aug, Chronic osteomyelitis of rig foot with draining sinus M86.471 [facility] [address] [id number] [address] [place] [address] Jul, [facility] [address] [id number] [address] [place] [address] Jul, [facility] [address] [id number] [address] [place] [address] Jul, Chronic kidney disease N18.9 [facility] [address] [id number] [address] [place] [address] Jul, Right ankle pain M25.571 [facility] [address] [id number] [address] [place] [address] Jul, Non-healing ulcer of right f oot, unspecified ulcer stage L97.519 [facility] [address] [id number] [address] [place] [address] Jul, Chronic skin ulcer with fat layer exposed L98.492 [facility] [address] [id number] [address] [place] [address] Jul, Deformity of right ankle nitza nt M21.961 [facility] [address] [id number] [address] [place] [address] 27 Jun, 2017 [facility] [address] [facility] [id number] [address] [place] [address] 21 Jun, 2017 Diabetes mellitus E11.9 ; Sk in ulcer of right foot with fat layer exposed L97.512 and Encounter for immunization Z23 [facility] [address] [facility] [id number] [address] [place] [address] 18 Jun, 2017 Right ankle pain M25.571 [facility] [address] [id number] [address] [place] [address] May, Right ankle pain M25.571 [facility] [address] [facility] [id number] [address] [place] [address] Apr, Right ankle pain M25.571 [facility] [address] [place] [id number] [address] [place] [address] Mar, Right ankle pain M25.571 [facility] [address] [id number] [address] [place] [address] Mar, [facility] [address] [place] [id number] [address] [place] [address] February, Diabetes mellitus E11.9 and Diabetic polyneuropathy associated with type 2 diabetes mellitus E11.42 [facility] [address] [facility] [id number] [address] [place] [address] February, Hyperkalemia E87.5 [facility] [address] [facility] [id number] [address] [place] [address] February, Right ankle pain M25.571 [facility] [address] [facility] [id number] [address] [place] [address] Jan, Right ankle pain M25.571 [facility] [address] [facility] [id number] [address] [place] [address] Dec, Right ankle pain M25.571 [facility] [address] [place] [id number] [address] [place] [address] Dec, Right ankle pain M25.571 [facility] [address] [place] [id number] [place] [address] Nov, [facility] [address] [place] [id number] [place] [address] Nov, Diabetes mellitus E11.9 ; Hy pertension I10 ; Gastroparesis K31.84 and Type 2 diabetes mellitus with diabetic autonomic (poly)neuropathy E11.43 [facility] [address] [address] Nov, Right ankle pain M25.571 [facility] [address] [place] [id number] [place] [address] Oct, Right ankle pain M25.571 [place] [address] [address] Oct, [facility] [address] [address] Oct, [facility] [address] [id number] Sep, [facility] [address] [address] Sep, Hypertension I10 [facility] [address] [address] Sep, Chronic kidney disease N18.9 ; Right ankle pain M25.571 and GERD (gastroesophageal reflux disease) K21.9 [facility] [address] [id number] Jul, [facility] [address] [address] Jul, Encounter for immunization Z 23 ; Venous insufficiency I87.2 and Diabetic polyneuropathy associated with type 2 diabetes mellitus E11.42 [facility] [address] [place] [id number] [address] [place] [address] Jul, [facility] [address] [id number] [address] [place] [address] Jul, Diabetes mellitus E11.9 [facility] [address] [id number] [address] [place] [address] May, [facility] [address] [id number] [address] [place] [address] Apr, [facility] [address] [id number] [address] [place] [address] Mar, Right ankle pain M25.571 [facility] [address] [id number] [address] [place] [address] Mar, [facility] [address] [id number] [address] [place] [address] February, Paresthesias R20.2 [facility] [address] [id number] [address] [place] [id number] February, [facility] [address] [id number] [address] [place] [id number] February, 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 [facility] [address] [id number] [address] [place] [phone] February, Diabetes mellitus E11.9 [facility] [address] [id number] [address] [place] [id number] February, [facility] [address] [id number] [address] [place] [id number] February, Polyneuropathy in diabetes 3 57.2 and Paresthesias R20.2 [facility] [address] [id number] [address] [place] [id number] February, [facility] [address] [id number] [address] [place] [id number] February, [facility] [address] [id number] [address] [place] [id number] February, [facility] [address] [facility] [id number] [address] [place] [id number] February, Diabetes mellitus E11.9 [facility] [address] [facility] [id number] [address] [place] [address] February, [facility] [address] [facility] [id number] [address] [place] [address] February, Hyperkalemia E87.5 [facility] [address] [facility] [id number] [address] [place] [address] Jan, Hypertension I10 [facility] [address] [facility] [id number] [address] [place] [address] Jan, Insomnia G47.00 [facility] [address] [facility] [id number] [address] [place] [address] Jan, [facility] [address] [facility] [id number] [address] [place] [address] Jan, [facility] [address] [facility] [id number] [address] [place] [address] Jan, [facility] [address] [facility] [id number] [address] [place] [address] Dec, Right ankle pain M25.571 [facility] [address] [facility] [id number] [address] [place] [address] Dec, GERD (gastroesophageal reflu x disease) K21.9 [facility] [address] [facility] [id number] [address] [place] [address] Dec, Insomnia G47.00 [facility] [address] [facility] [id number] [address] [place] [address] Dec, Hypertension I10 and Hyperka lemia 276.7 [facility] [address] [facility] [id number] [address] [place] [address] Dec, Chronic kidney disease N18.9 [facility] [address] [id number] [address] [place] [address] Dec, [facility] [address] [id number] [address] [place] [address] Dec, Hyperkalemia E87.5 [facility] [address] [facility] [id number] [address] [place] [address] Dec, Chronic kidney disease N18.9 and Right ankle pain M25.571 [facility] [address] [id number] [address] [place] [address] Nov, GERD (gastroesophageal reflu x disease) K21.9 [facility] [address] [id number] [address] [place] [address] Nov, Right ankle pain M25.571 [facility] [address] [facility] [id number] [address] [place] [address] Nov, Diabetes mellitus E11.9 [facility] [address] [id number] [address] [place] [address] Oct, [facility] [address] [facility] [id number] [address] [place] [address] Oct, [facility] [address] [facility] [id number] [address] [place] [address] Oct, [facility] [address] [facility] [id number] [address] [place] [address] Oct, Hyperkalemia E87.5 [facility] [address] [facility] [id number] [address] [place] [address] Oct, [facility] [address] [facility] [id number] [address] [place] [address] Oct, Hyperkalemia E87.5 [facility] [address] [facility] [id number] [address] [place] [address] Sep, [facility] [address] [id number] [address] [place] [address] 14 Sep, 2015 [facility] [address] [id number] [address] [place] [address] Sep, [facility] [address] [facility] [id number] [address] [place] [address] Sep, [facility] [address] [id number] [address] [place] [address] Sep, Right ankle pain M25.571 [facility] [address] [id number] [address] [place] [address] Aug, Chronic kidney disease N18.9 [facility] [address] [id number] [address] [place] [address] Aug, [facility] [address] [facility] [id number] [address] [place] [address] Aug, Hyperkalemia E87.5 [facility] [address] [facility] [id number] [address] [place] [address] Aug, [facility] [address] [id number] [address] [place] [address] Jul, [facility] [address] [facility] [id number] [address] [place] [address] Jul, [facility] [address] [facility] [id number] [address] [place] [address] Jul, [facility] [address] [facility] [id number] [address] [place] [address] Jul, Diabetes mellitus E11.9 ; En counter for immunization Z23 ; Hypertension I10 and Hyperkalemia E87.5 [facility] [address] [id number] [address] [place] [address] Jul, [facility] [address] [facility] [id number] [address] [place] [address] Jul, Hyperkalemia E87.5 [facility] [address] [id number] [address] [place] [address], [place] [address] Jul, Hyperkalemia E87.5 [facility] [address] [id number] [address] [place] [address], [place] [address] 28 Jun, 2015 [facility] [address] [id number] [address] [place] [address], [place] [address] Jun, [facility] [address] [id number] [address] [place] [address], [place] [address] Jun, [facility] [address] [id number] [address] [place] [address], [place] [address] Jun, [facility] [address] [id number] [address] [place] [address], [place] [address] May, [facility] [address] [id number] [address] [place] [address], [place] [address] May, [facility] [address] [id number] [address] [place] [address], [place] [address] May, [facility] [address] [id number] [address] [place] [address], [place] [address] May, Hyperkalemia 276.7 [facility] [address] [id number] [address] [place] [address], [place] [address] May, [facility] [address] [id number] [address] [place] [address], [place] [address] Apr, Hyperkalemia 276.7 [facility] [address] [id number] [address] [place] [address], [place] [address] Apr, [facility] [address] [id number] [address] [place] [address], [place] [address] Apr, [facility] [address] [id number] [address] [place] [address], [place] [address] Apr, [facility] [address] [id number] [address] [place] [address], [place] [address] Apr, [facility] [address] [id number] [address] [place] [id number] 14 Apr, 2015 Hyperkalemia 276.7 [facility] [address] [id number] [address] [place] [address] Apr, [facility] [address] [id number] [address] [place] [address] Apr, [facility] [address] [id number] [address] [place] [address] Mar, [facility] [address] [id number] [address] [place] [address] Mar, Hyperkalemia 276.7 [facility] [address] [id number] [address] [place] [address] Mar, Hyperkalemia 276.7 [facility] [address] [id number] [address] [place] [address] Mar, [facility] [address] [id number] [address] [place] [address] Mar, [facility] [address] [id number] [address] [place] [address] Mar, [facility] [address] [id number] [address] [place] [address] Mar, [facility] [address] [id number] [address] [place] [address] Mar, Anserine bursitis 726.61 [facility] [address] [id number] [address] [place] [address] Mar, Asthma 493.90 and Hyperkalem ia 276.7 [facility] [address] [id number] [address] [place] [address] Mar, [facility] [address] [id number] [address] [place] [address] February, [facility] [address] [id number] [address] [place] [address] February, [facility] [address] [id number] [address] [place] [address], [place] [address] February, [facility] [address] [id number] [address] [place] [address], [place] [address] February, [facility] [address] [id number] [address] [place] [address], [place] [address] February, [facility] [address] [id number] [address] [place] [address], [place] [address] February, [facility] [address] [id number] [address] [place] [address], [place] [address] February, [facility] [address] [id number] [address] [place] [address], [place] [address] February, [facility] [address] [id number] [address] [place] [address], [place] [address] February, [facility] [address] [id number] [address] [place] [address], [place] [address] Jan, [facility] [address] [id number] [address] [place] [address], [place] [address] Jan, [facility] [address] [id number] [address] [place] [address], [place] [address] Dec, [facility] [address] [id number] [address] [place] [address], [place] [address] Dec, [facility] [address] [id number] [address] [place] [address], [place] [address] Dec, [facility] [address] [id number] [address] [place] [address], [place] [address] Dec, [facility] [address] [id number] [address] [place] [address], [place] [address] Dec, [facility] [address] [id number] [address] [place] [address], [place] [address] Dec, [facility] [address] [id number] [address] [place] [address], [place] [address] Dec, [facility] [address] [id number] [address] [place] [address], [place] [address] Dec, [facility] [address] [id number] [address] [place] [address], [place] [address] Dec, [facility] [address] [id number] [address] [place] [address], [place] [address] Dec, [facility] [address] [id number] [address] [place] [address], [place] [address] Dec, [facility] [address] [id number] [address] [place] [address], [place] [address] Dec, [facility] [address] [id number] [address] [place] [address], [place] [address] Dec, [facility] [address] [id number] [address] [place] [address], [place] [address] Dec, [facility] [address] [id number] [address] [place] [address], [place] [address] Nov, [facility] [address] [id number] [address] [place] [address], [place] [address] Nov, [facility] [address] [id number] [address] [place] [address], [place] [address] Nov, [facility] [address] [id number] [address] [place] [address], [place] [address] Nov, [facility] [address] [id number] [address] [place] [address], [place] [address] Nov, [facility] [address] [id number] [address] [place] [address], [place] [address] Nov, [facility] [address] [id number] [address] [place] [address], [place] [address] Oct, [facility] [address] [id number] [address] [place] [address], [place] [address] Oct, [facility] [address] [id number] [address] [place] [address], [place] [address] Oct, [facility] [address] [id number] [address] [place] [address], [place] [address] Oct, [facility] [address] [id number] [address] [place] [address], [place] [address] Oct, [facility] [address] [id number] [address] [place] [address], [place] [address] Oct, [facility] [address] [id number] [address] [place] [address], [place] [address] Sep, [facility] [address] [id number] [address] [place] [address], [place] [address] Sep, [facility] [address] [id number] [address] [place] [address], [place] [address] Sep, [facility] [address] [id number] [address] [place] [address], [place] [address] Sep, [facility] [address] [id number] [address] [place] [address], [place] [address] Sep, [facility] [address] [id number] [address] [place] [address], [place] [address] Sep, [facility] [address] [id number] [address] [place] [address], [place] [address] Aug, [facility] [address] [id number] [address] [place] [address], [place] [address] Aug, [facility] [address] [id number] [address] [place] [address], [place] [address] Aug, [facility] [address] [id number] [address] [place] [address], [place] [address] Aug, [facility] [address] [id number] [address] [place] [address], [place] [address] Aug, [facility] [address] [id number] [address] [place] [address], [place] [address] Aug, [facility] [address] [id number] [address] [place] [address], [place] [address] Jul, [facility] [address] [id number] [address] [place] [address], [place] [address] Jul, [facility] [address] [id number] [address] [place] [address], [place] [address] Jul, [facility] [address] [id number] [address] [place] [address], [place] [address] Jul, [facility] [address] [id number] [address] [place] [address], [place] [address] Jul, [facility] [address] [id number] [address] [place] [address], [place] [address] Jul, [facility] [address] [id number] [address] [place] [address], [place] [address] Jul, [facility] [address] [id number] [address] [place] [address], [place] [address] Jul, [facility] [address] [id number] [address] [place] [address], [place] [address] Jul, [facility] [address] [id number] [address] [place] [address], [place] [address] Jul, [facility] [address] [id number] [address] [place] [address], [place] [address] Jul, [facility] [address] [id number] [address] [place] [address], [place] [address] Jun, [facility] [address] [id number] [address] [place] [address], [place] [address] Jun, [facility] [address] [id number] [address] [place] [address], [place] [address] Jun, [facility] [address] [id number] [address] [place] [address], [place] [address] Jun, [facility] [address] [id number] [address] [place] [address] Apr, [facility] [address] [id number] [address] [place] [address] Apr, [facility] [address] [id number] [address] [place] [address] Apr, [facility] [address] [id number] [address] [place] [address] Apr, [facility] [address] [id number] [address] [place] [address] Mar, [facility] [address] [id number] [address] [place] [address] Mar, [facility] [address] [id number] [address] [place] [address] Mar, [facility] [address] [id number] [address] [place] [address] Mar, [facility] [address] [id number] [address] [place] [address] Mar, [facility] [address] [id number] [address] [place] [address] Sep, [facility] [address] [id number] [address] [place] [address] Sep, [facility] [address] [id number] [address] [place] [address] Aug, IMMUNIZATIONS No Known Immunizations SOCIAL HISTORY Never Assessed REASON FOR VISIT PLAN OF CARE VITAL SIGNS MEDICATIONS Unknown [...] Surgical History temporary port on right side Surgical History fistula in left arm 07/2018 Hospitalization History surgeries Hospitalization History B/p Hospitalization History [facility], was [facility] for 4 day at [facility] oct 2016 Hospitalization History Pneumonia [facility] 06/2018 Hospitalization History fistula in left arm 07/2018
--- OUTSIDE RECORDS SUMMARY | 2020-04-01 19:23 | XMS REPORT ---
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 Name Role Phone OLYA WILLIS Unavailable PROBLEMS Type Condition ICD9-CM Code IKH51-BC Code Onset Dates Condition S tatus SNOMED Code Problem Diabetes mellitus E11.9 Active 73 288059 Problem Hypertension I10 Active 9145857 3 Problem Paresthesias R20.2 Active 4698829 4 Problem Chronic kidney disease N18.9 Active 499011024 Problem Venous insufficiency I87.2 Active 32158278 Problem Diabetic polyneuropathy associated with type 2 d iabetes mellitus E11.42 Active 85878701 Problem Type 2 diabetes mellitus with diabetic autonomic (poly)neuropathy E11.43 Active 163981246 Problem Chronic skin ulcer with fat layer exposed L98.492 Active 04301190 Problem Chronic osteomyelitis of right foot with draining sinus M86.471 Active [id number] Problem PAD (peripheral artery disease) I73.9 Active 881043712 Problem Gastroparesis K31.84 Active 255188 006 Problem Seasonal allergic rhinitis due to other allergic trigger J30.89 Active 911786467 Problem GERD (gastroesophageal reflux disease) K21.9 Active 309444923 Problem Type 2 diabetes mellitus with foot ulcer E11.621 Active 90334020901422 Problem 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 Active 260471598 Problem Pressure ulcer of unspecified heel, stage 4 L89.60 4 Active 087432124 Problem Unsteady gait R26.81 Active 987185 08 ALLERGIES No Information ENCOUNTERS Encounter Location Date Diagnosis [facility] [address] [facility] [id number] [address] [place] [id number] February, [facility] [address] [facility] [id number] [address] [place] [address] Jan, Chronic skin ulcer with fat layer exposed L98.492 [facility] [address] [id number] [address] [place] [address] Jan, [facility] [address] [id number] [address] [place] [id number] Jan, Chronic skin ulcer with fat layer exposed L98.492 [facility] [address] [id number] [address] [place] [id number] Dec, [facility] [address] [id number] [address] [place] [address] Dec, [facility] [address] [id number] [address] [place] [address] Dec, Chronic skin ulcer with fat layer exposed L98.492 [facility] [address] [facility] [id number] [address] [place] [id number] Dec, [facility] [address] [id number] [address] [place] [address] Dec, Unsteady gait R26.81 [facility] [address] [facility] [id number] [address] [place] [address] Dec, Chronic skin ulcer with fat layer exposed L98.492 ; PAD (peripheral artery disease) I73.9 ; Unsteady gait R26.81 and Weakness of both lower extremities R29.898 [facility] [address] [id number] [address] [place] [address] Nov, [facility] [address] [id number] [address] [place] [address] Nov, [facility] [address] [id number] [address] [place] [id number] Nov, [facility] [address] [facility] [id number] [address] [place] [id number] Nov, Chronic skin ulcer with fat layer exposed L98.492 [facility] [address] [facility] [id number] [address] [place] [id number] Oct, Chronic skin ulcer with fat layer exposed L98.492 [facility] [address] [id number] [address] [place] [id number] Oct, [facility] [address] [id number] [address] [place] [id number] Oct, [facility] [address] [id number] [address] [place] [id number] Sep, Chronic skin ulcer with fat layer exposed L98.492 and Unsteady gait R26.81 [facility] [address] [id number] [address] [place] [id number] Sep, [facility] [address] [id number] [address] [place] [id number] Sep, Chronic skin ulcer with fat layer exposed L98.492 [facility] [address] [id number] [address] [place] [id number] Aug, Chronic skin ulcer with fat layer exposed L98.492 [facility] [address] [id number] [address] [place] [id number] Aug, [facility] [address] [id number] [address] [place] [id number] Aug, Type 2 diabetes mellitus wit h foot ulcer E11.621 and Chronic skin ulcer with fat layer exposed L98.492 [facility] [address] [id number] [address] [place] [id number] Jul, Chronic skin ulcer with fat layer exposed L98.492 [facility] [address] [id number] [address] [place] [id number] Jul, [facility] [address] [id number] [address] [place] [address] Jul, Chronic skin ulcer with fat layer exposed L98.492 [facility] [address] [id number] [address] [place] [address] Jun, Chronic skin ulcer with fat layer exposed L98.492 [facility] [address] [id number] [address] [place] [id number] Jun, [facility] [address] [id number] [address] [place] [id number] Jun, Chronic skin ulcer with fat layer exposed L98.492 [facility] [address] [id number] [address] [place] [address] May, Chronic skin ulcer with fat layer exposed L98.492 [facility] [address] [id number] [address] [place] [id number] May, [facility] [address] [id number] [address] [place] [address] May, Chronic skin ulcer with fat layer exposed L98.492 [facility] [address] [facility] [id number] [address] [place] [address] Apr, Chronic skin ulcer with fat layer exposed L98.492 [facility] [address] [id number] [address] [place] [address] Apr, [id number] [address] Apr, [facility] [address] [facility] [id number] [address] [place] [address] Apr, Chronic skin ulcer with fat layer exposed L98.492 [facility] [address] [id number] [address] [place] [address] Apr, Foot callus L84 and Nonheali ng wound of heel S91.309A [facility] [address] [facility] [id number] [address] [place] [address] Apr, [address] [id number] [address] Mar, [facility] [address] [facility] [id number] [address] [place] [address] Mar, Diabetes mellitus E11.9 and Chronic skin ulcer with fat layer exposed L98.492 [facility] [address] [id number] [address] [place] [address] Mar, Chronic skin ulcer with fat layer exposed L98.492 [facility] [address] [id number] [address] [place] [address] Mar, [facility] [address] [id number] [address] [place] [id number] February, Chronic skin ulcer with fat layer exposed L98.492 and Encounter for medication monitoring Z51.81 [facility] [address] [id number] [address] [place] [id number] February, [facility] [address] [id number] [address] [place] [address] February, Encounter for medication mon itoring Z51.81 [facility] [address] [id number] [address] [place] [address] February, [facility] [address] [id number] [address] [place] [phone] February, [facility] [address] [id number] [address] [place] [address] February, [facility] [address] [id number] [address] [place] [address] Jan, Chronic skin ulcer with fat layer exposed L98.492 [facility] [address] [id number] [address] [place] [id number] Jan, [facility] [address] [id number] [address] [place] [address] Dec, [facility] [address] [id number] [address] [place] [id number] Dec, Diabetic polyneuropathy asso ciated with type 2 diabetes mellitus E11.42 and PAD (peripheral artery disease) I73.9 [facility] [address] [id number] [address] [place] [id number] Dec, Chronic skin ulcer with fat layer exposed L98.492 [facility] [address] [id number] [address] [place] [id number] Dec, [facility] [address] [id number] [address] [place] [id number] Nov, [facility] [address] [id number] [address] [place] [address] Nov, Skin ulcer of right foot wit h fat layer exposed L97.512 [facility] [address] [id number] [address] [place] [address] Oct, [facility] [address] [id number] [address] [place] [address] Oct, Skin ulcer of right foot wit h fat layer exposed L97.512 [facility] [address] [id number] [address] [place] [id number] Sep, Diabetes mellitus E11.9 [facility] [address] [id number] [address] [place] [phone] Sep, [facility] [address] [id number] [address] [place] [id number] Sep, [facility] [address] [id number] [address] [place] [phone] Sep, [facility] [address] [id number] [address] [place] [id number] 14 Sep, 2018 Type 2 diabetes mellitus wit h foot ulcer E11.621 and Skin ulcer of right foot with fat layer exposed L97.512 [facility] [address] [id number] [address] [place] [id number] Sep, Diabetes mellitus E11.9 [facility] [address] [id number] [address] [place] [id number] 07 Sep, 2018 [facility] [address] [id number] [address] [place] [id number] Aug, [facility] [address] [id number] [address] [place] [id number] Aug, [facility] [address] [id number] [address] [place] [id number] Aug, 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 [facility] [address] [id number] [address] [place] [phone] Aug, [facility] [address] [id number] [address] [place] [id number] Aug, [facility] [address] [id number] [address] [place] [address] Aug, Bronchitis J40 [facility] [address] [id number] [address] [place] [phone] Aug, [facility] [address] [id number] [address] [place] [id number] Jul, [facility] [address] [id number] [address] [place] [id number] Jul, Chronic skin ulcer with fat layer exposed L98.492 [facility] [address] [id number] [address] [place] [address] Jul, 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 [facility] [address] [id number] [address] [place] [id number] Jun, [facility] [address] [id number] [address] [place] [phone] Jun, [facility] [address] [id number] [address] [place] [id number] May, [facility] [address] [id number] [address] [place] [id number] May, Chronic skin ulcer with fat layer exposed L98.492 [facility] [address] [id number] [address] [place] [id number] Apr, [facility] [address] [facility] [id number] [address] [place] [id number] Apr, Type 2 diabetes mellitus wit h foot ulcer E11.621 and Unsteady gait R26.81 [facility] [address] [id number] [address] [place] [address] Mar, Decubitus ulcer of right mariana l, stage 3 L89.613 [facility] [address] [id number] [address] [place] [address] Mar, [facility] [address] [facility] [id number] [address] [place] [address] Mar, Pressure ulcer of unspecifie d heel, stage 4 L89.604 and Type 2 diabetes mellitus with foot ulcer E11.621 [facility] [address] [facility] [id number] [address] [place] [id number] Mar, Encounter for medication mon itoring Z51.81 [facility] [address] [facility] [id number] [address] [place] [address] Mar, Type 2 diabetes mellitus wit h foot ulcer E11.621 and Non-pressure chronic ulcer of right heel and midfoot with unspecified severity L97.419 [facility] [address] [facility] [id number] [address] [place] [address] February, [facility] [address] [facility] [id number] [address] [place] [address] Jan, Right ankle pain M25.571 [facility] [address] [id number] [address] [place] [id number] Dec, Right ankle pain M25.571 [facility] [address] [facility] [id number] [address] [place] [address] Dec, [facility] [address] [facility] [id number] [address] [place] [address] Dec, [facility] [address] [place] [id number] [address] [place] [address] Dec, Right ankle pain M25.571 [facility] [address] [address] Dec, Chronic skin ulcer with fat layer exposed L98.492 ; Type 2 diabetes mellitus with diabetic autonomic (poly)neuropathy E11.43 and Hypertension I10 [facility] [address] [place] [id number] [address] [place] [address] Nov, [facility] [address] [place] [id number] [address] [place] [address] Nov, [facility] [address] [address] Nov, [facility] [address] [place] [id number] [place] [address] Nov, Right ankle pain M25.571 and Chronic osteomyelitis of right foot with draining sinus M86.471 [facility] [address] [place] [id number] [address] [place] [address] Oct, Right ankle pain M25.571 [facility] [address] [address] Oct, [facility] [address] [address] Sep, Diabetes mellitus E11.9 [facility] [address] [place] [id number] [place] [address] Sep, Diabetic polyneuropathy asso ciated with type 2 diabetes mellitus E11.42 and Venous insufficiency I87.2 [facility] [address] [place] [id number] [place] [address] 07 Sep, 2017 Right ankle pain M25.571 [facility] [address] [place] [id number] [place] [address] Aug, Right ankle pain M25.571 [facility] [address] [place] [id number] [address] [place] [address] Aug, Chronic osteomyelitis of rig ht foot with draining sinus M86.471 [facility] [address] [id number] [address] [place] [phone] Aug, [facility] [address] [id number] [address] [place] [address] Aug, [facility] [address] [id number] [address] [place] [id number] Aug, Chronic osteomyelitis of rig ht foot with draining sinus M86.471 [facility] [address] [id number] [address] [place] [id number] Jul, [facility] [address] [id number] [address] [place] [address] Jul, [facility] [address] [id number] [address] [place] [id number] Jul, Chronic kidney disease N18.9 [facility] [address] [id number] [address] [place] [id number] Jul, Right ankle pain M25.571 [facility] [address] [id number] [address] [place] [address] Jul, Non-healing ulcer of right f oot, unspecified ulcer stage L97.519 [facility] [address] [id number] [address] [place] [address] Jul, Chronic skin ulcer with fat layer exposed L98.492 [facility] [address] [id number] [address] [place] [address] Jul, Deformity of right ankle nitza nt M21.961 [facility] [address] [id number] [address] [place] [address] Jun, [facility] [address] [id number] [address] [place] [id number] Jun, Diabetes mellitus E11.9 ; Sk in ulcer of right foot with fat layer exposed L97.512 and Encounter for immunization Z23 [facility] [address] [id number] [address] [place] [address] Jun, Right ankle pain M25.571 [facility] [address] [id number] [address] [place] [address] May, Right ankle pain M25.571 [facility] [address] [facility] [id number] [address] [place] [address] Apr, Right ankle pain M25.571 [facility] [address] [id number] [address] [place] [address] Mar, Right ankle pain M25.571 [facility] [address] [facility] [id number] [address] [place] [address] Mar, [facility] [address] [facility] [id number] [address] [place] [address] February, Diabetes mellitus E11.9 and Diabetic polyneuropathy associated with type 2 diabetes mellitus E11.42 [facility] [address] [id number] [address] [place] [address] February, Hyperkalemia E87.5 [facility] [address] [facility] [id number] [address] [place] [address] February, Right ankle pain M25.571 [facility] [address] [facility] [id number] [address] [place] [address] Jan, Right ankle pain M25.571 [facility] [address] [id number] [address] [place] [address] Dec, Right ankle pain M25.571 [facility] [address] [facility] [id number] [address] [place] [address] Dec, Right ankle pain M25.571 [facility] [address] [facility] [id number] [address] [place] [id number] Nov, [facility] [id number] [place] [address] 07 Nov, 2016 Diabetes mellitus E11.9 ; Hy pertension I10 ; Gastroparesis K31.84 and Type 2 diabetes mellitus with diabetic autonomic (poly)neuropathy E11.43 [facility] [address] [place] [id number] [address] [place] [address] 03 Nov, 2016 Right ankle pain M25.571 [facility] [address] [place] [id number] [address] [place] [address] Oct, Right ankle pain M25.571 [facility] [address] [place] [id number] [address] [place] [id number] Oct, [place] [address] [address] Oct, [facility] [address] [address] Sep, [place] [address] [address] Sep, Hypertension I10 [place] [address] [address] Sep, Chronic kidney disease N18.9 ; Right ankle pain M25.571 and GERD (gastroesophageal reflux disease) K21.9 [place] [address] [address] Jul, [facility] [address] [address] Jul, Encounter for immunization Z 23 ; Venous insufficiency I87.2 and Diabetic polyneuropathy associated with type 2 diabetes mellitus E11.42 [facility] [address] [place] [id number] [address] [place] [address] Jul, [place] [address] [place] [id number] [place] [address] Jul, Diabetes mellitus E11.9 [facility] [address] [place] [id number] [place] [address], [place] [address] May, [facility] [address] [id number] [address] [place] [id number] Apr, [facility] [address] [id number] [address] [place] [address] Mar, Right ankle pain M25.571 [facility] [address] [id number] [address] [place] [id number] Mar, [facility] [address] [id number] [address] [place] [id number] February, Paresthesias R20.2 [facility] [address] [id number] [address] [place] [phone] February, [facility] [address] [facility] [id number] [address] [place] [phone] February, 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 [facility] [address] [id number] [address] [place] [id number] February, Diabetes mellitus E11.9 [facility] [address] [id number] [address] [place] [id number] February, [facility] [address] [facility] [id number] [address] [place] [id number] February, Polyneuropathy in diabetes 3 57.2 and Paresthesias R20.2 [facility] [address] [id number] [address] [place] [id number] February, [facility] [address] [id number] [address] [place] [id number] February, [facility] [address] [facility] [id number] [address] [place] [id number] February, [facility] [address] [facility] [id number] [address] [place] [id number] February, Diabetes mellitus E11.9 [facility] [address] [id number] [address] [place] [id number] February, [facility] [address] [facility] [id number] [address] [place] [id number] February, Hyperkalemia E87.5 [facility] [address] [facility] [id number] [address] [place] [id number] Jan, Hypertension I10 [facility] [address] [facility] [id number] [address] [place] [id number] Jan, Insomnia G47.00 [facility] [address] [facility] [id number] [address] [place] [id number] Jan, [facility] [address] [facility] [id number] [address] [place] [phone] Jan, [facility] [address] [facility] [id number] [address] [place] [id number] Jan, [facility] [address] [facility] [id number] [address] [place] [id number] Dec, Right ankle pain M25.571 [facility] [address] [facility] [id number] [address] [place] [phone] Dec, GERD (gastroesophageal reflu x disease) K21.9 [facility] [address] [facility] [id number] [address] [place] [phone] Dec, Insomnia G47.00 [facility] [address] [facility] [id number] [address] [place] [phone] Dec, Hypertension I10 and Hyperka lemia 276.7 [facility] [address] [facility] [id number] [address] [place] [id number] Dec, Chronic kidney disease N18.9 [facility] [address] [facility] [id number] [address] [place] [phone] Dec, [facility] [address] [facility] [id number] [address] [place] [id number] Dec, Hyperkalemia E87.5 [place] [id number] [id number] [address] [place] [id number] 03 Dec, 2015 Chronic kidney disease N18.9 and Right ankle pain M25.571 [facility] [address] [id number] [address] [place] [id number] 11 Nov, 2015 GERD (gastroesophageal reflu x disease) K21.9 [facility] [address] [id number] [address] [place] [id number] 03 Nov, 2015 Right ankle pain M25.571 [facility] [address] [id number] [address] [place] [id number] 03 Nov, 2015 Diabetes mellitus E11.9 [facility] [address] [id number] [address] [place] [id number] Oct, [facility] [address] [id number] [address] [place] [phone] Oct, [facility] [address] [id number] [address] [place] [id number] Oct, [facility] [address] [id number] [address] [place] [id number] Oct, Hyperkalemia E87.5 [facility] [address] [facility] [id number] [address] [place] [phone] Oct, [facility] [address] [facility] [id number] [address] [place] [id number] Oct, Hyperkalemia E87.5 [facility] [address] [id number] [address] [place] [phone] Sep, [facility] [address] [id number] [address] [place] [phone] Sep, [facility] [address] [id number] [address] [place] [phone] Sep, [facility] [address] [facility] [id number] [address] [place] [phone] Sep, [facility] [address] [facility] [id number] [address] [place] [id number] Sep, Right ankle pain M25.571 [facility] [address] [id number] [address] [place] [id number] Aug, Chronic kidney disease N18.9 [facility] [address] [id number] [address] [place] [id number] Aug, [facility] [address] [id number] [address] [place] [phone] Aug, Hyperkalemia E87.5 [facility] [address] [facility] [id number] [address] [place] [id number] Aug, [facility] [address] [facility] [id number] [address] [place] [id number] Jul, [facility] [address] [facility] [id number] [address] [place] [phone] Jul, [facility] [address] [facility] [id number] [address] [place] [phone] Jul, [facility] [address] [facility] [id number] [address] [place] [id number] Jul, Diabetes mellitus E11.9 ; En counter for immunization Z23 ; Hypertension I10 and Hyperkalemia E87.5 [facility] [address] [facility] [id number] [address] [place] [id number] Jul, [facility] [address] [facility] [id number] [address] [place] [id number] Jul, Hyperkalemia E87.5 [facility] [address] [facility] [id number] [address] [place] [phone] Jul, Hyperkalemia E87.5 [facility] [address] [facility] [id number] [address] [place] [phone] Jun, [facility] [address] [id number] [address] [place] [address], [place] [address] Jun, [facility] [address] [id number] [address] [place] [address], [place] [address] 15 Jun, 2015 [facility] [address] [id number] [address] [place] [address], [place] [address] Jun, [facility] [address] [id number] [address] [place] [address], [place] [address] May, [facility] [address] [id number] [address] [place] [address], [place] [address] May, [facility] [address] [id number] [address] [place] [address], [place] [address] May, [facility] [address] [id number] [address] [place] [address], [place] [address] May, Hyperkalemia 276.7 [facility] [address] [id number] [address] [place] [address], [place] [address] May, [facility] [address] [id number] [address] [place] [address], [place] [address] Apr, Hyperkalemia 276.7 [facility] [address] [id number] [address] [place] [address], [place] [address] Apr, [facility] [address] [id number] [address] [place] [address], [place] [address] Apr, [facility] [address] [id number] [address] [place] [address], [place] [address] Apr, [facility] [address] [id number] [address] [place] [address], [place] [address] Apr, [facility] [address] [id number] [address] [place] [address], [place] [address] Apr, Hyperkalemia 276.7 [facility] [address] [id number] [address] [place] [address], [place] [address] Apr, [facility] [address] [id number] [address] [place] [id number] Apr, [facility] [address] [id number] [address] [place] [phone] Mar, [facility] [address] [id number] [address] [place] [id number] Mar, Hyperkalemia 276.7 [facility] [address] [id number] [address] [place] [phone] Mar, Hyperkalemia 276.7 [facility] [address] [id number] [address] [place] [id number] Mar, [facility] [address] [id number] [address] [place] [id number] Mar, [facility] [address] [id number] [address] [place] [phone] Mar, [facility] [address] [id number] [address] [place] [id number] Mar, [facility] [address] [id number] [address] [place] [id number] Mar, Anserine bursitis 726.61 [facility] [address] [id number] [address] [place] [id number] Mar, Asthma 493.90 and Hyperkalem ia 276.7 [facility] [address] [id number] [address] [place] [phone] Mar, [facility] [address] [id number] [address] [place] [id number] February, [facility] [address] [id number] [address] [place] [id number] February, [facility] [address] [id number] [address] [place] [id number] February, [facility] [address] [id number] [address] [place] [id number] February, [facility] [address] [id number] [address] [place] [address], [place] [address] February, [facility] [address] [id number] [address] [place] [address], [place] [address] February, [facility] [address] [id number] [address] [place] [address], [place] [address] February, [facility] [address] [id number] [address] [place] [address], [place] [address] February, [facility] [address] [id number] [address] [place] [address], [place] [address] February, [facility] [address] [id number] [address] [place] [address], [place] [address] Jan, [facility] [address] [id number] [address] [place] [address], [place] [address] Jan, [facility] [address] [id number] [address] [place] [address], [place] [address] Dec, [facility] [address] [id number] [address] [place] [address], [place] [address] Dec, [facility] [address] [id number] [address] [place] [address], [place] [address] Dec, [facility] [address] [id number] [address] [place] [address], [place] [address] Dec, [facility] [address] [id number] [address] [place] [address], [place] [address] Dec, [facility] [address] [id number] [address] [place] [address], [place] [address] Dec, [facility] [address] [id number] [address] [place] [address], [place] [address] Dec, [facility] [address] [id number] [address] [place] [address], [place] [address] Dec, [facility] [address] [id number] [address] [place] [address], [place] [address] Dec, [facility] [address] [id number] [address] [place] [address], [place] [address] Dec, [facility] [address] [id number] [address] [place] [address], [place] [address] Dec, [facility] [address] [id number] [address] [place] [address], [place] [address] Dec, [facility] [address] [id number] [address] [place] [address], [place] [address] Dec, [facility] [address] [id number] [address] [place] [address], [place] [address] Dec, [facility] [address] [id number] [address] [place] [address], [place] [address] Nov, [facility] [address] [id number] [address] [place] [address], [place] [address] Nov, [facility] [address] [id number] [address] [place] [address], [place] [address] Nov, [facility] [address] [id number] [address] [place] [address], [place] [address] Nov, [facility] [address] [id number] [address] [place] [address], [place] [address] Nov, [facility] [address] [id number] [address] [place] [address], [place] [address] Nov, [facility] [address] [id number] [address] [place] [address], [place] [address] Oct, [facility] [address] [id number] [address] [place] [address], [place] [address] Oct, [facility] [address] [id number] [address] [place] [address], [place] [address] Oct, [facility] [address] [id number] [address] [place] [address], [place] [address] Oct, [facility] [address] [id number] [address] [place] [address], [place] [address] Oct, [facility] [address] [id number] [address] [place] [address], [place] [address] Oct, [facility] [address] [id number] [address] [place] [address], [place] [address] Sep, [facility] [address] [id number] [address] [place] [address], [place] [address] Sep, [facility] [address] [id number] [address] [place] [address], [place] [address] Sep, [facility] [address] [id number] [address] [place] [address], [place] [address] Sep, [facility] [address] [id number] [address] [place] [address], [place] [address] Sep, [facility] [address] [id number] [address] [place] [address], [place] [address] Sep, [facility] [address] [id number] [address] [place] [address], [place] [address] Aug, [facility] [address] [id number] [address] [place] [address], [place] [address] Aug, [facility] [address] [id number] [address] [place] [address], [place] [address] Aug, [facility] [address] [id number] [address] [place] [address], [place] [address] Aug, [facility] [address] [id number] [address] [place] [address], [place] [address] Aug, [facility] [address] [id number] [address] [place] [address], [place] [address] Aug, [facility] [address] [id number] [address] [place] [address], [place] [address] Jul, [facility] [address] [id number] [address] [place] [id number] Jul, [facility] [address] [id number] [address] [place] [address], [place] [address] Jul, [facility] [address] [id number] [address] [place] [address], [place] [address] Jul, [facility] [address] [id number] [address] [place] [address], [place] [address] Jul, [facility] [address] [id number] [address] [place] [address], [place] [address] Jul, [facility] [address] [id number] [address] [place] [address], [place] [address] Jul, [facility] [address] [id number] [address] [place] [address], [place] [address] Jul, [facility] [address] [id number] [address] [place] [address], [place] [address] Jul, [facility] [address] [id number] [address] [place] [address], [place] [address] Jul, [facility] [address] [id number] [address] [place] [address], [place] [address] Jul, [facility] [address] [id number] [address] [place] [address], [place] [address] Jun, [facility] [address] [id number] [address] [place] [address], [place] [address] Jun, [facility] [address] [id number] [address] [place] [id number] Jun, [facility] [address] [id number] [address] [place] [address], [place] [address] Jun, [facility] [address] [id number] [address] [place] [id number] Apr, [facility] [address] [id number] [address] [place] [address], [place] [address] Apr, [facility] [address] [id number] [address] [place] [id number] Apr, [facility] [address] [id number] [address] [place] [id number] Apr, [facility] [address] [id number] [address] [place] [id number] Mar, [facility] [address] [id number] [address] [place] [id number] Mar, [facility] [address] [id number] [address] [place] [address] Mar, [facility] [address] [id number] [address] [place] [id number] Mar, [facility] [address] [id number] [address] [place] [id number] Mar, [facility] [address] [id number] [address] [place] [phone] Sep, [facility] [address] [id number] [address] [place] [id number] Sep, [facility] [address] [id number] [address] [place] [id number] Aug, IMMUNIZATIONS No Known Immunizations SOCIAL HISTORY [...] V C oct 2016 Hospitalization History Pneum[place] Hospitalization History fistula in left arm 07/2018
--- OUTSIDE RECORDS SUMMARY | 2020-04-01 19:23 | XMS REPORT ---
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 Name Role Phone OLYA WILLIS Unavailable PROBLEMS Type Condition ICD9-CM Code EXE99-RC Code Onset Dates Condition S tatus SNOMED Code Problem Diabetes mellitus E11.9 Active 73 975246 Problem Hypertension I10 Active 5066775 3 Problem Paresthesias R20.2 Active 7537694 4 Problem Chronic kidney disease N18.9 Active 363193708 Problem Venous insufficiency I87.2 Active 41941594 Problem Diabetic polyneuropathy associated with type 2 d iabetes mellitus E11.42 Active 31295154 Problem Type 2 diabetes mellitus with diabetic autonomic (poly)neuropathy E11.43 Active 920776090 Problem Chronic skin ulcer with fat layer exposed L98.492 Active 21119487 Problem Chronic osteomyelitis of right foot with draining sinus M86.471 Active [id number] Problem PAD (peripheral artery disease) I73.9 Active 888871780 Problem Gastroparesis K31.84 Active 860319 006 Problem Seasonal allergic rhinitis due to other allergic trigger J30.89 Active 497406435 Problem GERD (gastroesophageal reflux disease) K21.9 Active 318874232 Problem Type 2 diabetes mellitus with foot ulcer E11.621 Active 79560397717759 Problem 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 Active 048135822 Problem Pressure ulcer of unspecified heel, stage 4 L89.60 4 Active 094884819 Problem Unsteady gait R26.81 Active 077361 08 ALLERGIES No Information ENCOUNTERS Encounter Location Date Diagnosis [facility] [address] [id number] [address] [place] [id number] February, [facility] [address] [id number] [address] [place] [id number] Jan, Chronic skin ulcer with fat layer exposed L98.492 [facility] [address] [id number] [address] [place] [id number] Jan, [facility] [address] [id number] [address] [place] [id number] Jan, Chronic skin ulcer with fat layer exposed L98.492 [facility] [address] [id number] [address] [place] [id number] Dec, [facility] [address] [id number] [address] [place] [id number] Dec, [facility] [address] [id number] [address] [place] [id number] Dec, Chronic skin ulcer with fat layer exposed L98.492 [facility] [address] [id number] [address] [place] [id number] Dec, [facility] [address] [id number] [address] [place] [id number] Dec, Unsteady gait R26.81 [facility] [address] [id number] [address] [place] [id number] Dec, Chronic skin ulcer with fat layer exposed L98.492 ; PAD (peripheral artery disease) I73.9 ; Unsteady gait R26.81 and Weakness of both lower extremities R29.898 [facility] [address] [id number] [address] [place] [id number] Nov, [facility] [address] [id number] [address] [place] [id number] Nov, [facility] [address] [id number] [address] [place] [id number] Nov, [facility] [address] [id number] [address] [place] [id number] Nov, Chronic skin ulcer with fat layer exposed L98.492 [facility] [address] [id number] [address] [place] [id number] Oct, Chronic skin ulcer with fat layer exposed L98.492 [facility] [address] [id number] [address] [place] [id number] Oct, [facility] [address] [id number] [address] [place] [id number] Oct, [facility] [address] [id number] [address] [place] [id number] Sep, Chronic skin ulcer with fat layer exposed L98.492 and Unsteady gait R26.81 [facility] [address] [id number] [address] [place] [id number] Sep, [facility] [address] [id number] [address] [place] [id number] Sep, Chronic skin ulcer with fat layer exposed L98.492 [facility] [address] [id number] [address] [place] [id number] Aug, Chronic skin ulcer with fat layer exposed L98.492 [facility] [address] [id number] [address] [place] [id number] Aug, [facility] [address] [id number] [address] [place] [id number] Aug, Type 2 diabetes mellitus wit h foot ulcer E11.621 and Chronic skin ulcer with fat layer exposed L98.492 [facility] [address] [id number] [address] [place] [id number] Jul, Chronic skin ulcer with fat layer exposed L98.492 [facility] [address] [id number] [address] [place] [id number] Jul, [facility] [address] [id number] [address] [place] [id number] Jul, Chronic skin ulcer with fat layer exposed L98.492 [facility] [address] [id number] [address] [place] [id number] Jun, Chronic skin ulcer with fat layer exposed L98.492 [facility] [address] [id number] [address] [place] [id number] Jun, [facility] [address] [id number] [address] [place] [id number] Jun, Chronic skin ulcer with fat layer exposed L98.492 [facility] [address] [id number] [address] [place] [id number] May, Chronic skin ulcer with fat layer exposed L98.492 [facility] [address] [id number] [address] [place] [id number] May, [facility] [address] [id number] [address] [place] [id number] May, Chronic skin ulcer with fat layer exposed L98.492 [facility] [address] [id number] [address] [place] [id number] Apr, Chronic skin ulcer with fat layer exposed L98.492 [facility] [address] [id number] [address] [place] [id number] Apr, [address] [address] [id number] [address] Apr, [facility] [address] [id number] [address] [place] [id number] Apr, Chronic skin ulcer with fat layer exposed L98.492 [facility] [address] [id number] [address] [place] [id number] Apr, Foot callus L84 and Nonheali ng wound of heel S91.309A [facility] [address] [id number] [address] [place] [id number] Apr, [address] [address] [id number] [address] Mar, [facility] [address] [id number] [address] [place] [id number] Mar, Diabetes mellitus E11.9 and Chronic skin ulcer with fat layer exposed L98.492 [facility] [address] [id number] [address] [place] [id number] Mar, Chronic skin ulcer with fat layer exposed L98.492 [facility] [address] [id number] [address] [place] [id number] Mar, [facility] [address] [id number] [address] [place] [id number] February, Chronic skin ulcer with fat layer exposed L98.492 and Encounter for medication monitoring Z51.81 [facility] [address] [id number] [address] [place] [id number] February, [facility] [address] [id number] [address] [place] [id number] February, Encounter for medication mon itoring Z51.81 [facility] [address] [id number] [address] [place] [id number] February, [facility] [address] [id number] [address] [place] [id number] February, [facility] [address] [id number] [address] [place] [id number] February, [facility] [address] [id number] [address] [place] [id number] Jan, Chronic skin ulcer with fat layer exposed L98.492 [facility] [address] [id number] [address] [place] [id number] Jan, [facility] [address] [id number] [address] [place] [id number] Dec, [facility] [address] [id number] [address] [place] [id number] Dec, Diabetic polyneuropathy asso ciated with type 2 diabetes mellitus E11.42 and PAD (peripheral artery disease) I73.9 [facility] [address] [id number] [address] [place] [id number] Dec, Chronic skin ulcer with fat layer exposed L98.492 [facility] [address] [id number] [address] [place] [id number] Dec, [facility] [address] [id number] [address] [place] [id number] Nov, [facility] [address] [id number] [address] [place] [id number] Nov, Skin ulcer of right foot wit h fat layer exposed L97.512 [facility] [address] [id number] [address] [place] [id number] Oct, [facility] [address] [id number] [address] [place] [id number] Oct, Skin ulcer of right foot wit h fat layer exposed L97.512 [facility] [address] [id number] [address] [place] [id number] Sep, Diabetes mellitus E11.9 [facility] [address] [id number] [address] [place] [id number] Sep, [facility] [address] [id number] [address] [place] [id number] Sep, [facility] [address] [id number] [address] [place] [id number] Sep, [facility] [address] [id number] [address] [place] [id number] 14 Sep, 2018 Type 2 diabetes mellitus wit h foot ulcer E11.621 and Skin ulcer of right foot with fat layer exposed L97.512 [facility] [address] [id number] [address] [place] [id number] Sep, Diabetes mellitus E11.9 [facility] [address] [id number] [address] [place] [id number] 07 Sep, 2018 [facility] [address] [id number] [address] [place] [id number] Aug, [facility] [address] [id number] [address] [place] [id number] Aug, [facility] [address] [id number] [address] [place] [id number] Aug, 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 [facility] [address] [id number] [address] [place] [id number] Aug, [facility] [address] [id number] [address] [place] [id number] Aug, [facility] [address] [id number] [address] [place] [id number] Aug, Bronchitis J40 [facility] [address] [id number] [address] [place] [id number] Aug, [facility] [address] [id number] [address] [place] [id number] Jul, [facility] [address] [id number] [address] [place] [id number] Jul, Chronic skin ulcer with fat layer exposed L98.492 [facility] [address] [id number] [address] [place] [id number] Jul, 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 [facility] [address] [id number] [address] [place] [id number] Jun, [facility] [address] [id number] [address] [place] [id number] Jun, [facility] [address] [id number] [address] [place] [id number] May, [facility] [address] [id number] [address] [place] [id number] May, Chronic skin ulcer with fat layer exposed L98.492 [facility] [address] [id number] [address] [place] [id number] Apr, [facility] [address] [id number] [address] [place] [id number] Apr, Type 2 diabetes mellitus wit h foot ulcer E11.621 and Unsteady gait R26.81 [facility] [address] [id number] [address] [place] [id number] Mar, Decubitus ulcer of right mariana l, stage 3 L89.613 [facility] [address] [id number] [address] [place] [id number] Mar, [facility] [address] [id number] [address] [place] [id number] Mar, Pressure ulcer of unspecifie d heel, stage 4 L89.604 and Type 2 diabetes mellitus with foot ulcer E11.621 [facility] [address] [id number] [address] [place] [id number] Mar, Encounter for medication mon itoring Z51.81 [facility] [address] [id number] [address] [place] [id number] Mar, Type 2 diabetes mellitus wit h foot ulcer E11.621 and Non-pressure chronic ulcer of right heel and midfoot with unspecified severity L97.419 [facility] [address] [id number] [address] [place] [id number] February, [facility] [address] [id number] [address] [place] [address] Jan, Right ankle pain M25.571 [facility] [address] [id number] [address] [place] [id number] Dec, Right ankle pain M25.571 [facility] [address] [id number] [address] [place] [id number] Dec, [facility] [facility] [address] [id number] [address] [place] [id number] Dec, [facility] [address] [place] [id number] [address] [place] [id number] Dec, Right ankle pain M25.571 [facility] [address] [id number] Dec, Chronic skin ulcer with fat layer exposed L98.492 ; Type 2 diabetes mellitus with diabetic autonomic (poly)neuropathy E11.43 and Hypertension I10 [facility] [address] [place] [id number] [address] [place] [id number] Nov, [facility] [address] [place] [id number] [address] [place] [id number] Nov, [facility] [address] [id number] Nov, [facility] [address] [place] [id number] [place] [address] Nov, Right ankle pain M25.571 and Chronic osteomyelitis of right foot with draining sinus M86.471 [facility] [address] [place] [id number] [address] [place] [id number] Oct, Right ankle pain M25.571 [facility] [address] [id number] Oct, [facility] [address] [address] Sep, Diabetes mellitus E11.9 [facility] [address] [place] [id number] [place] [address] Sep, Diabetic polyneuropathy asso ciated with type 2 diabetes mellitus E11.42 and Venous insufficiency I87.2 [facility] [address] [place] [id number] [place] [id number] 07 Sep, 2017 Right ankle pain M25.571 [facility] [address] [place] [id number] [place] [address] Aug, Right ankle pain M25.571 [facility] [address] [place] [id number] [address] [place] [id number] Aug, Chronic osteomyelitis of rig ht foot with draining sinus M86.471 [facility] [address] [id number] [address] [place] [id number] Aug, [facility] [address] [id number] [address] [place] [id number] Aug, [facility] [address] [id number] [address] [place] [id number] Aug, Chronic osteomyelitis of rig ht foot with draining sinus M86.471 [facility] [address] [id number] [address] [place] [id number] Jul, [facility] [address] [id number] [address] [place] [id number] Jul, [facility] [address] [id number] [address] [place] [id number] Jul, Chronic kidney disease N18.9 [facility] [address] [id number] [address] [place] [id number] Jul, Right ankle pain M25.571 [facility] [address] [id number] [address] [place] [id number] Jul, Non-healing ulcer of right f oot, unspecified ulcer stage L97.519 [facility] [address] [id number] [address] [place] [id number] Jul, Chronic skin ulcer with fat layer exposed L98.492 [facility] [address] [id number] [address] [place] [id number] Jul, Deformity of right ankle nitza nt M21.961 [facility] [address] [id number] [address] [place] [id number] Jun, [facility] [address] [id number] [address] [place] [address] Jun, Diabetes mellitus E11.9 ; Sk in ulcer of right foot with fat layer exposed L97.512 and Encounter for immunization Z23 [facility] [address] [id number] [address] [place] [id number] Jun, Right ankle pain M25.571 [facility] [address] [id number] [address] [place] [address] May, Right ankle pain M25.571 [facility] [address] [id number] [address] [place] [id number] Apr, Right ankle pain M25.571 [facility] [address] [id number] [address] [place] [id number] Mar, Right ankle pain M25.571 [facility] [address] [id number] [address] [place] [id number] Mar, [facility] [address] [id number] [address] [place] [id number] February, Diabetes mellitus E11.9 and Diabetic polyneuropathy associated with type 2 diabetes mellitus E11.42 [facility] [address] [id number] [address] [place] [id number] February, Hyperkalemia E87.5 [facility] [address] [id number] [address] [place] [id number] February, Right ankle pain M25.571 [facility] [address] [id number] [address] [place] [address] Jan, Right ankle pain M25.571 [facility] [address] [id number] [address] [place] [id number] Dec, Right ankle pain M25.571 [facility] [address] [id number] [address] [place] [id number] Dec, Right ankle pain M25.571 [facility] [address] [id number] [address] [place] [id number] Nov, [facility] [id number] [place] [id number] 07 Nov, 2016 Diabetes mellitus E11.9 ; Hy pertension I10 ; Gastroparesis K31.84 and Type 2 diabetes mellitus with diabetic autonomic (poly)neuropathy E11.43 [facility] [address] [place] [id number] [address] [place] [id number] 03 Nov, 2016 Right ankle pain M25.571 [facility] [address] [place] [id number] [address] [place] [address] Oct, Right ankle pain M25.571 [facility] [address] [place] [id number] [address] [place] [id number] Oct, [place] [address] [id number] Oct, [facility] [address] [address] Sep, [place] [address] [address] Sep, Hypertension I10 [place] [address] [address] Sep, Chronic kidney disease N18.9 ; Right ankle pain M25.571 and GERD (gastroesophageal reflux disease) K21.9 [place] [address] [id number] Jul, [facility] [address] [address] Jul, Encounter for immunization Z 23 ; Venous insufficiency I87.2 and Diabetic polyneuropathy associated with type 2 diabetes mellitus E11.42 [facility] [address] [place] [id number] [address] [place] [id number] Jul, [place] [address] [place] [id number] [place] [address] Jul, Diabetes mellitus E11.9 [facility] [address] [place] [id number] [place] [address], [place] [address] May, [facility] [address] [id number] [address] [place] [id number] Apr, [facility] [address] [id number] [address] [place] [id number] Mar, Right ankle pain M25.571 [facility] [address] [id number] [address] [place] [id number] Mar, [facility] [address] [id number] [address] [place] [id number] February, Paresthesias R20.2 [facility] [address] [id number] [address] [place] [id number] February, [facility] [address] [id number] [address] [place] [id number] February, 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 [facility] [address] [id number] [address] [place] [id number] February, Diabetes mellitus E11.9 [facility] [address] [id number] [address] [place] [id number] February, [facility] [address] [id number] [address] [place] [id number] February, Polyneuropathy in diabetes 3 57.2 and Paresthesias R20.2 [facility] [address] [id number] [address] [place] [id number] February, [facility] [address] [id number] [address] [place] [id number] February, [facility] [address] [id number] [address] [place] [id number] February, [facility] [address] [id number] [address] [place] [id number] February, Diabetes mellitus E11.9 [facility] [address] [id number] [address] [place] [id number] February, [facility] [address] [id number] [address] [place] [id number] February, Hyperkalemia E87.5 [facility] [address] [id number] [address] [place] [id number] Jan, Hypertension I10 [facility] [address] [id number] [address] [place] [id number] Jan, Insomnia G47.00 [facility] [address] [id number] [address] [place] [id number] Jan, [facility] [address] [id number] [address] [place] [id number] Jan, [facility] [address] [id number] [address] [place] [id number] Jan, [facility] [address] [id number] [address] [place] [id number] Dec, Right ankle pain M25.571 [facility] [address] [id number] [address] [place] [id number] Dec, GERD (gastroesophageal reflu x disease) K21.9 [facility] [address] [id number] [address] [place] [id number] Dec, Insomnia G47.00 [facility] [address] [id number] [address] [place] [id number] Dec, Hypertension I10 and Hyperka lemia 276.7 [facility] [address] [id number] [address] [place] [id number] Dec, Chronic kidney disease N18.9 [facility] [address] [id number] [address] [place] [id number] Dec, [facility] [address] [id number] [address] [place] [id number] Dec, Hyperkalemia E87.5 [facility] [id number] [id number] [address] [place] [id number] 03 Dec, 2015 Chronic kidney disease N18.9 and Right ankle pain M25.571 [facility] [address] [id number] [address] [place] [id number] 11 Nov, 2015 GERD (gastroesophageal reflu x disease) K21.9 [facility] [address] [id number] [address] [place] [id number] 03 Nov, 2015 Right ankle pain M25.571 [facility] [address] [id number] [address] [place] [id number] 03 Nov, 2015 Diabetes mellitus E11.9 [facility] [address] [id number] [address] [place] [id number] Oct, [facility] [address] [id number] [address] [place] [id number] Oct, [facility] [address] [id number] [address] [place] [id number] Oct, [facility] [address] [id number] [address] [place] [id number] Oct, Hyperkalemia E87.5 [facility] [address] [id number] [address] [place] [address] [id number] Oct, [facility] [address] [id number] [address] [place] [id number] Oct, Hyperkalemia E87.5 [facility] [address] [id number] [address] [place] [id number] Sep, [facility] [address] [id number] [address] [place] [id number] Sep, [facility] [address] [id number] [address] [place] [id number] Sep, [facility] [address] [id number] [address] [place] [id number] Sep, [facility] [address] [id number] [address] [place] [id number] Sep, Right ankle pain M25.571 [facility] [address] [id number] [address] [place] [id number] Aug, Chronic kidney disease N18.9 [facility] [address] [id number] [address] [place] [phone] Aug, [facility] [address] [id number] [address] [place] [id number] Aug, Hyperkalemia E87.5 [facility] [address] [id number] [address] [place] [phone] Aug, [facility] [address] [id number] [address] [place] [id number] Jul, [facility] [address] [id number] [address] [place] [id number] Jul, [facility] [address] [id number] [address] [place] [id number] Jul, [facility] [address] [id number] [address] [place] [id number] Jul, Diabetes mellitus E11.9 ; En counter for immunization Z23 ; Hypertension I10 and Hyperkalemia E87.5 [facility] [address] [id number] [address] [place] [phone] Jul, [facility] [address] [id number] [address] [place] [id number] Jul, Hyperkalemia E87.5 [facility] [address] [id number] [address] [place] [id number] Jul, Hyperkalemia E87.5 [facility] [address] [id number] [address] [place] [phone] Jun, [facility] [address] [id number] [address] [place] [address], [place] [address] Jun, [facility] [address] [id number] [address] [place] [address], [place] [id number] 15 Jun, 2015 [facility] [address] [id number] [address] [place] [address], [place] [address] Jun, [facility] [address] [id number] [address] [place] [address], [place] [address] May, [facility] [address] [id number] [address] [place] [address], [place] [address] May, [facility] [address] [id number] [address] [place] [address], [place] [address] May, [facility] [address] [id number] [address] [place] [address], [place] [address] May, Hyperkalemia 276.7 [facility] [address] [id number] [address] [place] [address], [place] [address] May, [facility] [address] [id number] [address] [place] [address], [place] [address] Apr, Hyperkalemia 276.7 [facility] [address] [id number] [address] [place] [address], [place] [address] Apr, [facility] [address] [id number] [address] [place] [address], [place] [address] Apr, [facility] [address] [id number] [address] [place] [address], [place] [address] Apr, [facility] [address] [id number] [address] [place] [address], [place] [address] Apr, [facility] [address] [id number] [address] [place] [address], [place] [address] Apr, Hyperkalemia 276.7 [facility] [address] [id number] [address] [place] [address], [place] [address] Apr, [facility] [address] [id number] [address] [place] [phone] Apr, [facility] [address] [id number] [address] [place] [phone] Mar, [facility] [address] [id number] [address] [place] [id number] Mar, Hyperkalemia 276.7 [facility] [address] [id number] [address] [place] [phone] Mar, Hyperkalemia 276.7 [facility] [address] [id number] [address] [place] [id number] Mar, [facility] [address] [id number] [address] [place] [id number] Mar, [facility] [address] [id number] [address] [place] [id number] Mar, [facility] [address] [id number] [address] [place] [phone] Mar, [facility] [address] [id number] [address] [place] [id number] Mar, Anserine bursitis 726.61 [facility] [address] [id number] [address] [place] [id number] Mar, Asthma 493.90 and Hyperkalem ia 276.7 [facility] [address] [id number] [address] [place] [id number] Mar, [facility] [address] [id number] [address] [place] [id number] February, [facility] [address] [id number] [address] [place] [id number] February, [facility] [address] [id number] [address] [place] [phone] February, [facility] [address] [id number] [address] [place] [id number] February, [facility] [address] [id number] [address] [place] [address], [place] [address] February, [facility] [address] [id number] [address] [place] [address], [place] [address] February, [facility] [address] [id number] [address] [place] [address], [place] [address] February, [facility] [address] [id number] [address] [place] [address], [place] [address] February, [facility] [address] [id number] [address] [place] [address], [place] [address] February, [facility] [address] [id number] [address] [place] [address], [place] [address] Jan, [facility] [address] [id number] [address] [place] [address], [place] [address] Jan, [facility] [address] [id number] [address] [place] [address], [place] [address] Dec, [facility] [address] [id number] [address] [place] [address], [place] [address] Dec, [facility] [address] [id number] [address] [place] [address], [place] [address] Dec, [facility] [address] [id number] [address] [place] [address], [place] [address] Dec, [facility] [address] [id number] [address] [place] [address], [place] [address] Dec, [facility] [address] [id number] [address] [place] [address], [place] [address] Dec, [facility] [address] [id number] [address] [place] [address], [place] [address] Dec, [facility] [address] [id number] [address] [place] [address], [place] [address] Dec, [facility] [address] [id number] [address] [place] [address], [place] [address] Dec, [facility] [address] [id number] [address] [place] [address], [place] [address] Dec, [facility] [address] [id number] [address] [place] [address], [place] [address] Dec, [facility] [address] [id number] [address] [place] [address], [place] [address] Dec, [facility] [address] [id number] [address] [place] [address], [place] [address] Dec, [facility] [address] [id number] [address] [place] [address], [place] [address] Dec, [facility] [address] [id number] [address] [place] [address], [place] [address] Nov, [facility] [address] [id number] [address] [place] [address], [place] [address] Nov, [facility] [address] [id number] [address] [place] [address], [place] [address] Nov, [facility] [address] [id number] [address] [place] [address], [place] [address] Nov, [facility] [address] [id number] [address] [place] [address], [place] [address] Nov, [facility] [address] [id number] [address] [place] [address], [place] [address] Nov, [facility] [address] [id number] [address] [place] [address], [place] [address] Oct, [facility] [address] [id number] [address] [place] [address], [place] [address] Oct, [facility] [address] [id number] [address] [place] [address], [place] [address] Oct, [facility] [address] [id number] [address] [place] [address], [place] [address] Oct, [facility] [address] [id number] [address] [place] [address], [place] [address] Oct, [facility] [address] [id number] [address] [place] [address], [place] [address] Oct, [facility] [address] [id number] [address] [place] [address], [place] [address] Sep, [facility] [address] [id number] [address] [place] [address], [place] [address] Sep, [facility] [address] [id number] [address] [place] [address], [place] [address] Sep, [facility] [address] [id number] [address] [place] [address], [place] [address] Sep, [facility] [address] [id number] [address] [place] [address], [place] [address] Sep, [facility] [address] [id number] [address] [place] [address], [place] [address] Sep, [facility] [address] [id number] [address] [place] [address], [place] [address] Aug, [facility] [address] [id number] [address] [place] [address], [place] [address] Aug, [facility] [address] [id number] [address] [place] [address], [place] [address] Aug, [facility] [address] [id number] [address] [place] [address], [place] [address] Aug, [facility] [address] [id number] [address] [place] [address], [place] [address] Aug, [facility] [address] [id number] [address] [place] [address], [place] [address] Aug, [facility] [address] [id number] [address] [place] [address], [place] [address] Jul, [facility] [address] [id number] [address] [place] [id number] Jul, [facility] [address] [id number] [address] [place] [address], [place] [address] Jul, [facility] [address] [id number] [address] [place] [address], [place] [address] Jul, [facility] [address] [id number] [address] [place] [address], [place] [address] Jul, [facility] [address] [id number] [address] [place] [address], [place] [address] Jul, [facility] [address] [id number] [address] [place] [address], [place] [address] Jul, [facility] [address] [id number] [address] [place] [address], [place] [address] Jul, [facility] [address] [id number] [address] [place] [address], [place] [address] Jul, [facility] [address] [id number] [address] [place] [address], [place] [address] Jul, [facility] [address] [id number] [address] [place] [address], [place] [address] Jul, [facility] [address] [id number] [address] [place] [address], [place] [address] Jun, [facility] [address] [id number] [address] [place] [address], [place] [address] Jun, [facility] [address] [id number] [address] [place] [id number] Jun, [facility] [address] [id number] [address] [place] [address], [place] [address] Jun, [facility] [address] [id number] [address] [place] [id number] Apr, [facility] [address] [id number] [address] [place] [address], [place] [address] Apr, [facility] [address] [id number] [address] [place] [id number] Apr, [facility] [address] [id number] [address] [place] [id number] Apr, [facility] [address] [id number] [address] [place] [id number] Mar, [facility] [address] [id number] [address] [place] [id number] Mar, [facility] [address] [id number] [address] [place] [id number] Mar, [facility] [address] [id number] [address] [place] [id number] Mar, [facility] [address] [id number] [address] [place] [id number] Mar, [facility] [address] [id number] [address] [place] [id number] Sep, [facility] [address] [id number] [address] [place] [id number] Sep, [facility] [address] [id number] [address] [place] [id number] Aug, IMMUNIZATIONS No Known Immunizations SOCIAL HISTORY [...] V C oct 2016 Hospitalization History [place] Hospitalization History fistula in left arm 07/2018
--- OUTSIDE RECORDS SUMMARY | 2020-04-01 19:24 | XMS REPORT ---
Author Author Josephine WILLIS Organization [facility] Address [address] [place] [address] Care Team Providers Care Paranormal Investigator Name Role Phone OLYA WILLIS Unavailable PROBLEMS Type Condition ICD9-CM Code FCQ57-CX Code Onset Dates Condition S tatus SNOMED Code Problem Diabetes mellitus E11.9 Active 73 813318 Problem Hypertension I10 Active 6414149 3 Problem Paresthesias R20.2 Active 2274124 4 Problem Chronic kidney disease N18.9 Active 286747900 Problem Venous insufficiency I87.2 Active 41038988 Problem Diabetic polyneuropathy associated with type 2 d iabetes mellitus E11.42 Active 09170679 Problem Type 2 diabetes mellitus with diabetic autonomic (poly)neuropathy E11.43 Active 851095645 Problem Chronic skin ulcer with fat layer exposed L98.492 Active 77008264 Problem Chronic osteomyelitis of right foot with draining sinus M86.471 Active 137848939069722 Problem PAD (peripheral artery disease) I73.9 Active 319845579 Problem Gastroparesis K31.84 Active 682890 006 Problem Seasonal allergic rhinitis due to other allergic trigger J30.89 Active 676263573 Problem GERD (gastroesophageal reflux disease) K21.9 Active 185742319 Problem Type 2 diabetes mellitus with foot ulcer E11.621 Active 80311453542358 Problem 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 Active 778456371 Problem Pressure ulcer of unspecified heel, stage 4 L89.60 4 Active 212049105 Problem Unsteady gait R26.81 Active 722772 08 ALLERGIES No Information ENCOUNTERS Encounter Location Date Diagnosis [facility] [address] [facility] [id number] [address] [place] [phone] Jan, [facility] [address] [facility] [id number] [address] [place] [address] Jan, [facility] [address] [id number] [address] [place] [address] Jan, Chronic skin ulcer with fat layer exposed L98.492 [facility] [address] [id number] [address] [place] [address] Dec, [facility] [address] [id number] [address] [place] [address] Dec, [facility] [address] [id number] [address] [place] [address] Dec, Chronic skin ulcer with fat layer exposed L98.492 [facility] [address] [id number] [address] [place] [address] Dec, [facility] [address] [facility] [id number] [address] [place] [address] Dec, Unsteady gait R26.81 [facility] [address] [facility] [id number] [address] [place] [address] Dec, Chronic skin ulcer with fat layer exposed L98.492 ; PAD (peripheral artery disease) I73.9 ; Unsteady gait R26.81 and Weakness of both lower extremities R29.898 [facility] [address] [id number] [address] [place] [address] Nov, [facility] [address] [id number] [address] [place] [address] Nov, [facility] [address] [facility] [id number] [address] [place] [address] Nov, [facility] [address] [facility] [id number] [address] [place] [address] Nov, Chronic skin ulcer with fat layer exposed L98.492 [facility] [address] [facility] [id number] [address] [place] [address] Oct, Chronic skin ulcer with fat layer exposed L98.492 [facility] [address] [facility] [id number] [address] [place] [address] Oct, [facility] [address] [id number] [address] [place] [phone] Oct, [facility] [address] [id number] [address] [place] [address] Sep, Chronic skin ulcer with fat layer exposed L98.492 and Unsteady gait R26.81 [facility] [address] [id number] [address] [place] [address] Sep, [facility] [address] [id number] [address] [place] [address] Sep, Chronic skin ulcer with fat layer exposed L98.492 [facility] [address] [id number] [address] [place] [address] Aug, Chronic skin ulcer with fat layer exposed L98.492 [facility] [address] [id number] [address] [place] [phone] Aug, [facility] [address] [id number] [address] [place] [address] Aug, Type 2 diabetes mellitus wit h foot ulcer E11.621 and Chronic skin ulcer with fat layer exposed L98.492 [facility] [address] [id number] [address] [place] [address] Jul, Chronic skin ulcer with fat layer exposed L98.492 [facility] [address] [id number] [address] [place] [address] Jul, [facility] [address] [id number] [address] [place] [address] Jul, Chronic skin ulcer with fat layer exposed L98.492 [facility] [address] [id number] [address] [place] [address] Jun, Chronic skin ulcer with fat layer exposed L98.492 [facility] [address] [id number] [address] [place] [address] Jun, [facility] [address] [facility] [id number] [address] [place] [address] Jun, Chronic skin ulcer with fat layer exposed L98.492 [facility] [address] [facility] [id number] [address] [place] [address] May, Chronic skin ulcer with fat layer exposed L98.492 [facility] [address] [facility] [id number] [address] [place] [address] May, [facility] [address] [facility] [id number] [address] [place] [address] May, Chronic skin ulcer with fat layer exposed L98.492 [facility] [address] [facility] [id number] [address] [place] [address] Apr, Chronic skin ulcer with fat layer exposed L98.492 [facility] [address] [facility] [id number] [address] [place] [address] Apr, [address] [place] [address] Apr, [facility] [address] [facility] [id number] [address] [place] [address] Apr, Chronic skin ulcer with fat layer exposed L98.492 [facility] [address] [facility] [id number] [address] [place] [address] Apr, Foot callus L84 and Nonheali ng wound of heel S91.309A [facility] [address] [facility] [id number] [address] [place] [address] Apr, [address] [place] [address] Mar, [facility] [address] [facility] [id number] [address] [place] [address] Mar, Diabetes mellitus E11.9 and Chronic skin ulcer with fat layer exposed L98.492 [facility] [address] [facility] [id number] [address] [place] [address] Mar, Chronic skin ulcer with fat layer exposed L98.492 [facility] [address] [id number] [address] [place] [address] Mar, [facility] [address] [id number] [address] [place] [address] February, Chronic skin ulcer with fat layer exposed L98.492 and Encounter for medication monitoring Z51.81 [facility] [address] [id number] [address] [place] [address] February, [facility] [address] [id number] [address] [place] [address] February, Encounter for medication mon itoring Z51.81 [facility] [address] [id number] [address] [place] [address] February, [facility] [address] [id number] [address] [place] [address] February, [facility] [address] [id number] [address] [place] [address] February, [facility] [address] [id number] [address] [place] [address] Jan, Chronic skin ulcer with fat layer exposed L98.492 [facility] [address] [id number] [address] [place] [address] Jan, [facility] [address] [id number] [address] [place] [address] Dec, [facility] [address] [id number] [address] [place] [address] Dec, Diabetic polyneuropathy asso ciated with type 2 diabetes mellitus E11.42 and PAD (peripheral artery disease) I73.9 [facility] [address] [id number] [address] [place] [address] Dec, Chronic skin ulcer with fat layer exposed L98.492 [facility] [address] [id number] [address] [place] [address] Dec, [facility] [address] [id number] [address] [place] [address] Nov, [facility] [address] [id number] [address] [place] [address] Nov, Skin ulcer of right foot wit h fat layer exposed L97.512 [facility] [address] [id number] [address] [place] [address] Oct, [facility] [address] [id number] [address] [place] [address] Oct, Skin ulcer of right foot wit h fat layer exposed L97.512 [facility] [address] [id number] [address] [place] [address] Sep, Diabetes mellitus E11.9 [facility] [address] [id number] [address] [place] [address] Sep, [facility] [address] [id number] [address] [place] [phone] Sep, [facility] [address] [id number] [address] [place] [address] Sep, [facility] [address] [id number] [address] [place] [address] Sep, Type 2 diabetes mellitus wit h foot ulcer E11.621 and Skin ulcer of right foot with fat layer exposed L97.512 [facility] [address] [id number] [address] [place] [address] Sep, Diabetes mellitus E11.9 [facility] [address] [id number] [address] [place] [address] Sep, [facility] [address] [id number] [address] [place] [address] Aug, [facility] [address] [id number] [address] [place] [address] Aug, [facility] [address] [id number] [address] [place] [address] Aug, 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 [facility] [address] [id number] [address] [place] [address] Aug, [facility] [address] [id number] [address] [place] [address] Aug, [facility] [address] [id number] [address] [place] [address] Aug, Bronchitis J40 [facility] [address] [id number] [address] [place] [address] Aug, [facility] [address] [id number] [address] [place] [address] Jul, [facility] [address] [id number] [address] [place] [address] Jul, Chronic skin ulcer with fat layer exposed L98.492 [facility] [address] [id number] [address] [place] [address] Jul, 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 [facility] [address] [id number] [address] [place] [address] Jun, [facility] [address] [id number] [address] [place] [address] Jun, [facility] [address] [id number] [address] [place] [address] May, [facility] [address] [id number] [address] [place] [address] May, Chronic skin ulcer with fat layer exposed L98.492 [facility] [address] [id number] [address] [place] [address] Apr, [facility] [address] [id number] [address] [place] [address] Apr, Type 2 diabetes mellitus wit h foot ulcer E11.621 and Unsteady gait R26.81 [facility] [address] [id number] [address] [place] [address] Mar, Decubitus ulcer of right mariana l, stage 3 L89.613 [place] [address] [id number] [address] [place] [address] Mar, [place] [address] [id number] [address] [place] [address] Mar, Pressure ulcer of unspecifie d heel, stage 4 L89.604 and Type 2 diabetes mellitus with foot ulcer E11.621 [place] [address] [id number] [address] [place] [address] Mar, Encounter for medication mon itoring Z51.81 [place] [address] [facility] [id number] [address] [place] [address] Mar, Type 2 diabetes mellitus wit h foot ulcer E11.621 and Non-pressure chronic ulcer of right heel and midfoot with unspecified severity L97.[address] [place] [address] [facility] [id number] [address] [place] [address] February, [place] [address] [facility] [id number] [address] [place] [address] Jan, Right ankle pain M25.571 [place] [address] [facility] [id number] [address] [place] [address] Dec, Right ankle pain M25.571 [place] [address] [id number] [address] [place] [address] Dec, [place] [address] [facility] [id number] [address] [place] [address] Dec, [facility] [address] [id number] [address] [place] [address] Dec, Right ankle pain M25.571 [place] [address] [id number] [address] [place] [address] Dec, Chronic skin ulcer with fat layer exposed L98.492 ; Type 2 diabetes mellitus with diabetic autonomic (poly)neuropathy E11.43 and Hypertension I10 [facility] [address] [facility] [id number] [address] [place] [address] Nov, [facility] [address] [facility] [id number] [address] [place] [address] Nov, [facility] [address] [facility] [id number] [address] [place] [address] Nov, [facility] [address] [facility] [id number] [address] [place] [address] Nov, Right ankle pain M25.571 and Chronic osteomyelitis of right foot with draining sinus M86.471 [facility] [address] [place] [id number] [address] [place] [address] Oct, Right ankle pain M25.571 [facility] [address] [facility] [id number] [address] [place] [address] Oct, [facility] [address] [place] [id number] [address] [place] [address] Sep, Diabetes mellitus E11.9 [facility] [address] [facility] [id number] [address] [place] [address] Sep, Diabetic polyneuropathy asso ciated with type 2 diabetes mellitus E11.42 and Venous insufficiency I87.2 [facility] [address] [place] [id number] [address] [place] [address] Sep, Right ankle pain M25.571 [facility] [address] [place] [id number] [address] [place] [address] Aug, Right ankle pain M25.571 [facility] [address] [facility] [id number] [address] [place] [address] Aug, Chronic osteomyelitis of rig ht foot with draining sinus M86.471 [facility] [address] [id number] [address] [place] [address] Aug, [facility] [address] [id number] [address] [place] [address] Aug, [facility] [address] [facility] [id number] [address] [place] [address] Aug, Chronic osteomyelitis of rig ht foot with draining sinus M86.471 [facility] [address] [id number] [address] [place] [address] Jul, [facility] [address] [id number] [address] [place] [address] Jul, [facility] [address] [facility] [id number] [address] [place] [address] Jul, Chronic kidney disease N18.9 [facility] [address] [facility] [id number] [address] [place] [address] Jul, Right ankle pain M25.571 [facility] [address] [facility] [id number] [address] [place] [address] Jul, Non-healing ulcer of right f oot, unspecified ulcer stage L97.519 [place] [id number] [facility] [id number] [address] [place] [address] Jul, Chronic skin ulcer with fat layer exposed L98.[address] [place] [address] [facility] [id number] [address] [place] [address] Jul, Deformity of right ankle nitza nt M21.961 [facility] [address] [facility] [id number] [address] [place] [address] Jun, [facility] [address] [facility] [id number] [address] [place] [address] Jun, Diabetes mellitus E11.9 ; Sk in ulcer of right foot with fat layer exposed L97.512 and Encounter for immunization Z23 [facility] [address] [facility] [id number] [address] [place] [address] Jun, Right ankle pain M25.571 [facility] [address] [facility] [id number] [address] [place] [address] May, Right ankle pain M25.571 [facility] [address] [facility] [id number] [address] [place] [address] Apr, Right ankle pain M25.571 [facility] [address] [facility] [id number] [address] [place] [address] Mar, Right ankle pain M25.571 [facility] [address] [id number] [address] [place] [address] Mar, [facility] [address] [facility] [id number] [address] [place] [address] February, Diabetes mellitus E11.9 and Diabetic polyneuropathy associated with type 2 diabetes mellitus E11.42 [facility] [address] [place] [id number] [address] [place] [address] February, Hyperkalemia E87.5 [facility] [address] [facility] [id number] [address] [place] [address] February, Right ankle pain M25.571 [facility] [address] [facility] [id number] [address] [place] [address] Jan, Right ankle pain M25.571 [facility] [address] [facility] [id number] [address] [place] [address] Dec, Right ankle pain M25.571 [facility] [address] [facility] [id number] [address] [place] [address] Dec, Right ankle pain M25.571 [facility] [address] [facility] [id number] [address] [place] [address] Nov, [facility] [address] [facility] [id number] [address] [place] [address] Nov, Diabetes mellitus E11.9 ; Hy pertension I10 ; Gastroparesis K31.84 and Type 2 diabetes mellitus with diabetic autonomic (poly)neuropathy E11.43 [facility] [address] [facility] [id number] [address] [place] [address] Nov, Right ankle pain M25.571 [facility] [address] [facility] [id number] [address] [place] [address] Oct, Right ankle pain M25.571 [facility] [address] [facility] [id number] [address] [place] [address] Oct, [facility] [address] [facility] [id number] [address] [place] [address] Oct, [facility] [address] [place] [id number] [place] [address] Sep, [place] [address] [place] [id number] [place] [address] Sep, Hypertension I10 [facility] [address] [place] [id number] [place] [address] Sep, Chronic kidney disease N18.9 ; Right ankle pain M25.571 and GERD (gastroesophageal reflux disease) K21.9 [facility] [address] [place] [id number] [address] [place] [address] Jul, [facility] [address] [place] [id number] [address] [place] [address] Jul, Encounter for immunization Z 23 ; Venous insufficiency I87.2 and Diabetic polyneuropathy associated with type 2 diabetes mellitus E11.42 [facility] [address] [facility] [id number] [address] [place] [address] Jul, [facility] [address] [place] [id number] [address] [place] [address] Jul, Diabetes mellitus E11.9 [facility] [address] [facility] [id number] [address] [place] [address] May, [facility] [address] [place] [id number] [address] [place] [address] Apr, [facility] [address] [id number] [address] [place] [id number] Mar, Right ankle pain M25.571 [facility] [address] [id number] [address] [place] [phone] Mar, [facility] [address] [id number] [address] [place] [phone] February, Paresthesias R20.2 [facility] [address] [id number] [address] [place] [phone] February, [facility] [address] [id number] [address] [place] [phone] February, 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 [facility] [address] [id number] [address] [place] [id number] February, Diabetes mellitus E11.9 [facility] [address] [id number] [address] [place] [phone] February, [facility] [address] [id number] [address] [place] [phone] February, Polyneuropathy in diabetes 3 57.2 and Paresthesias R20.2 [facility] [address] [id number] [address] [place] [phone] February, [facility] [address] [id number] [address] [place] [id number] February, [facility] [address] [id number] [address] [place] [phone] February, [facility] [address] [id number] [address] [place] [phone] February, Diabetes mellitus E11.9 [facility] [address] [id number] [address] [place] [id number] February, [facility] [address] [id number] [address] [place] [id number] February, Hyperkalemia E87.5 [facility] [address] [facility] [id number] [address] [place] [phone] Jan, Hypertension I10 [facility] [address] [facility] [id number] [address] [place] [address] Jan, Insomnia G47.00 [facility] [address] [facility] [id number] [address] [place] [id number] Jan, [facility] [address] [facility] [id number] [address] [place] [phone] Jan, [facility] [address] [facility] [id number] [address] [place] [phone] Jan, [facility] [address] [facility] [id number] [address] [place] [phone] Dec, Right ankle pain M25.571 [facility] [address] [place] [id number] [address] [place] [phone] Dec, GERD (gastroesophageal reflu x disease) K21.9 [facility] [address] [facility] [id number] [address] [place] [phone] Dec, Insomnia G47.00 [facility] [address] [facility] [id number] [address] [place] [phone] Dec, Hypertension I10 and Hyperka lemia 276.7 [facility] [address] [facility] [id number] [address] [place] [phone] Dec, Chronic kidney disease N18.9 [facility] [address] [facility] [id number] [address] [place] [phone] Dec, [facility] [address] [facility] [id number] [address] [place] [phone] Dec, Hyperkalemia E87.5 [facility] [address] [facility] [id number] [address] [place] [phone] Dec, Chronic kidney disease N18.9 and Right ankle pain M25.571 [facility] [address] [id number] [address] [place] [phone] 11 Nov, 2015 GERD (gastroesophageal reflu x disease) K21.9 [facility] [address] [id number] [address] [place] [phone] Nov, Right ankle pain M25.571 [facility] [address] [id number] [address] [place] [phone] Nov, Diabetes mellitus E11.9 [facility] [address] [id number] [address] [place] [phone] Oct, [facility] [address] [id number] [address] [place] [phone] Oct, [facility] [address] [id number] [address] [place] [phone] Oct, [facility] [address] [id number] [address] [place] [phone] Oct, Hyperkalemia E87.5 [facility] [address] [id number] [address] [place] [phone] Oct, [facility] [address] [id number] [address] [place] [id number] Oct, Hyperkalemia E87.5 [facility] [address] [id number] [address] [place] [phone] Sep, [facility] [address] [id number] [address] [place] [phone] Sep, [facility] [address] [id number] [address] [place] [phone] Sep, [facility] [address] [id number] [address] [place] [phone] Sep, [facility] [address] [id number] [address] [place] [phone] Sep, Right ankle pain M25.571 [facility] [address] [facility] [id number] [address] [place] [phone] Aug, Chronic kidney disease N18.9 [facility] [address] [facility] [id number] [address] [place] [phone] Aug, [facility] [address] [facility] [id number] [address] [place] [phone] Aug, Hyperkalemia E87.5 [facility] [address] [facility] [id number] [address] [place] [phone] Aug, [facility] [address] [facility] [id number] [address] [place] [id number] Jul, [facility] [address] [facility] [id number] [address] [place] [phone] Jul, [facility] [address] [place] [id number] [address] [place] [id number] Jul, [facility] [address] [facility] [id number] [address] [place] [id number] Jul, Diabetes mellitus E11.9 ; En counter for immunization Z23 ; Hypertension I10 and Hyperkalemia E87.5 [facility] [address] [facility] [id number] [address] [place] [phone] Jul, [facility] [address] [facility] [id number] [address] [place] [phone] Jul, Hyperkalemia E87.5 [facility] [address] [facility] [id number] [address] [place] [phone] Jul, Hyperkalemia E87.5 [facility] [address] [facility] [id number] [address] [place] [phone] Jun, [facility] [address] [facility] [id number] [address] [place] [phone] Jun, [facility] [address] [facility] [id number] [address] [place] [id number] 15 Jun, 2015 [facility] [address] [id number] [address] [place] [address], [place] [address] Jun, [facility] [address] [id number] [address] [place] [address], [place] [address] May, [facility] [address] [id number] [address] [place] [address], [place] [address] May, [facility] [address] [id number] [address] [place] [address], [place] [address] May, [facility] [address] [id number] [address] [place] [address], [place] [address] May, Hyperkalemia 276.7 [facility] [address] [id number] [address] [place] [address], [place] [address] May, [facility] [address] [id number] [address] [place] [address], [place] [address] Apr, Hyperkalemia 276.7 [facility] [address] [id number] [address] [place] [address], [place] [address] Apr, [facility] [address] [id number] [address] [place] [address], [place] [address] Apr, [facility] [address] [id number] [address] [place] [address], [place] [address] Apr, [facility] [address] [id number] [address] [place] [address], [place] [address] Apr, [facility] [address] [id number] [address] [place] [address], [place] [address] 14 Apr, 2015 Hyperkalemia 276.7 [facility] [address] [id number] [address] [place] [address], [place] [address] Apr, [facility] [address] [id number] [address] [place] [address], [place] [address] Apr, [facility] [address] [id number] [address] [place] [address] [address] Mar, [facility] [address] [id number] [address] [place] [id number] Mar, Hyperkalemia 276.7 [facility] [address] [id number] [address] [place] [id number] Mar, Hyperkalemia 276.7 [facility] [address] [id number] [address] [place] [id number] Mar, [facility] [address] [id number] [address] [place] [phone] Mar, [facility] [address] [id number] [address] [place] [phone] Mar, [facility] [address] [id number] [address] [place] [phone] Mar, [facility] [address] [id number] [address] [place] [phone] Mar, Anserine bursitis 726.61 [facility] [address] [id number] [address] [place] [phone] Mar, Asthma 493.90 and Hyperkalem ia 276.7 [facility] [address] [id number] [address] [place] [id number] Mar, [facility] [address] [id number] [address] [place] [id number] February, [facility] [address] [id number] [address] [place] [id number] February, [facility] [address] [id number] [address] [place] [phone] February, [facility] [address] [id number] [address] [place] [id number] February, [facility] [address] [id number] [address] [place] [id number] February, [facility] [address] [id number] [address] [place] [address], [place] [address] February, [facility] [address] [id number] [address] [place] [address], [place] [address] February, [facility] [address] [id number] [address] [place] [address], [place] [address] February, [facility] [address] [id number] [address] [place] [address], [place] [address] February, [facility] [address] [id number] [address] [place] [address], [place] [address] Jan, [facility] [address] [id number] [address] [place] [address], [place] [address] Jan, [facility] [address] [id number] [address] [place] [address], [place] [address] Dec, [facility] [address] [id number] [address] [place] [address], [place] [address] Dec, [facility] [address] [id number] [address] [place] [address], [place] [address] Dec, [facility] [address] [id number] [address] [place] [address], [place] [address] Dec, [facility] [address] [id number] [address] [place] [address], [place] [address] Dec, [facility] [address] [id number] [address] [place] [address], [place] [address] Dec, [facility] [address] [id number] [address] [place] [address], [place] [address] Dec, [facility] [address] [id number] [address] [place] [address], [place] [address] Dec, [facility] [address] [id number] [address] [place] [address], [place] [address] Dec, [facility] [address] [id number] [address] [place] [address], [place] [address] Dec, [facility] [address] [id number] [address] [place] [address], [place] [address] Dec, [facility] [address] [id number] [address] [place] [address], [place] [address] Dec, [facility] [address] [id number] [address] [place] [address], [place] [address] Dec, [facility] [address] [id number] [address] [place] [address], [place] [address] Dec, [facility] [address] [id number] [address] [place] [address], [place] [address] Nov, [facility] [address] [id number] [address] [place] [address], [place] [address] Nov, [facility] [address] [id number] [address] [place] [address], [place] [address] Nov, [facility] [address] [id number] [address] [place] [address], [place] [address] Nov, [facility] [address] [id number] [address] [place] [address], [place] [address] Nov, [facility] [address] [id number] [address] [place] [address], [place] [address] Nov, [facility] [address] [id number] [address] [place] [address], [place] [address] Oct, [facility] [address] [id number] [address] [place] [address], [place] [address] Oct, [facility] [address] [id number] [address] [place] [address], [place] [address] Oct, [facility] [address] [id number] [address] [place] [address], [place] [address] Oct, [facility] [address] [id number] [address] [place] [address], [place] [address] Oct, [facility] [address] [id number] [address] [place] [address], [place] [address] Oct, [facility] [address] [id number] [address] [place] [address], [place] [address] Sep, [facility] [address] [id number] [address] [place] [address], [place] [address] Sep, [facility] [address] [id number] [address] [place] [address], [place] [address] Sep, [facility] [address] [id number] [address] [place] [address], [place] [address] Sep, [facility] [address] [id number] [address] [place] [address], [place] [address] Sep, [facility] [address] [id number] [address] [place] [address], [place] [address] Sep, [facility] [address] [id number] [address] [place] [address], [place] [address] Aug, [facility] [address] [id number] [address] [place] [address], [place] [address] Aug, [facility] [address] [id number] [address] [place] [address], [place] [address] Aug, [facility] [address] [id number] [address] [place] [address], [place] [address] Aug, [facility] [address] [id number] [address] [place] [address], [place] [address] Aug, [facility] [address] [id number] [address] [place] [address], [place] [address] Aug, [facility] [address] [id number] [address] [place] [address], [place] [address] Jul, [facility] [address] [id number] [address] [place] [address], [place] [address] Jul, [facility] [address] [id number] [address] [place] [address], [place] [address] Jul, [facility] [address] [id number] [address] [place] [address], [place] [address] Jul, [facility] [address] [id number] [address] [place] [address], [place] [address] Jul, [facility] [address] [id number] [address] [place] [address], [place] [address] Jul, [facility] [address] [id number] [address] [place] [address], [place] [address] Jul, [facility] [address] [id number] [address] [place] [address], [place] [address] Jul, [facility] [address] [id number] [address] [place] [address], [place] [address] Jul, [facility] [address] [id number] [address] [place] [address], [place] [address] Jul, [facility] [address] [id number] [address] [place] [address], [place] [address] Jul, [facility] [address] [id number] [address] [place] [address], [place] [address] Jun, [facility] [address] [id number] [address] [place] [address], [place] [address] Jun, [facility] [address] [id number] [address] [place] [address], [place] [address] Jun, [facility] [address] [id number] [address] [place] [address], [place] [address] Jun, [facility] [address] [id number] [address] [place] [address], [place] [address] Apr, [facility] [address] [id number] [address] [place] [address], [place] [address] Apr, [facility] [address] [id number] [address] [place] [address], [place] [address] Apr, [facility] [address] [id number] [address] [place] [address] Apr, [facility] [address] [id number] [address] [place] [address] Mar, [facility] [address] [id number] [address] [place] [id number] Mar, [facility] [address] [id number] [address] [place] [id number] Mar, [facility] [address] [id number] [address] [place] [id number] Mar, [facility] [address] [id number] [address] [place] [id number] Mar, [facility] [address] [id number] [address] [place] [id number] Sep, [facility] [address] [id number] [address] [place] [id number] Sep, [facility] [address] [id number] [address] [place] [id number] Aug, IMMUNIZATIONS No Known Immunizations SOCIAL HISTORY Never Assessed REASON FOR VISIT PLAN OF CARE VITAL SIGNS Height 62 in 2014-08-23 Weight 144.19 lbs 2014-08-23 Temperature 97.9 degrees Fahrenheit 2014-08-23 Heart Rate 76 bpm 2014-08-23 Respiratory Rate 18 2014-08-23 Blood pressure systolic 128 mmHg 2014-08-23 Blood pressure diastolic 60 mmHg 2014-08-23 MEDICATIONS Unknown Medications RESULTS No Results PROCEDURES Procedure Date Ordered Result Body Site GLYCATED HEMOGLOBIN TEST Aug 23, 2014 INSTRUCTIONS MEDICATIONS ADMINISTERED No Known Medications MEDICAL [...] angieagram, was there for 4 day at [facility] oct 2016 Hospitalization History Pneumonia [place] PRITI veras 06/2018 Hospitalization History fistula in left arm 07/2018
--- OUTSIDE RECORDS SUMMARY | 2020-04-01 19:24 | XMS REPORT ---
Author Author Josephine WILLIS Organization [facility] Address [address] [place] [address] Care Team Providers Care Photographic Lithographer Name Role Phone OLYA WILLIS Unavailable PROBLEMS Type Condition ICD9-CM Code DIB12-NU Code Onset Dates Condition S tatus SNOMED Code Problem Diabetes mellitus E11.9 Active 73 327013 Problem Hypertension I10 Active 3011476 3 Problem Paresthesias R20.2 Active 8847178 4 Problem Chronic kidney disease N18.9 Active 723223695 Problem Venous insufficiency I87.2 Active 86589040 Problem Diabetic polyneuropathy associated with type 2 d iabetes mellitus E11.42 Active 66741810 Problem Type 2 diabetes mellitus with diabetic autonomic (poly)neuropathy E11.43 Active 802271958 Problem Chronic skin ulcer with fat layer exposed L98.492 Active 94483710 Problem Chronic osteomyelitis of right foot with draining sinus M86.471 Active 515794119230158 Problem PAD (peripheral artery disease) I73.9 Active 763373592 Problem Gastroparesis K31.84 Active 725377 006 Problem Seasonal allergic rhinitis due to other allergic trigger J30.89 Active 158446040 Problem GERD (gastroesophageal reflux disease) K21.9 Active 071781182 Problem Type 2 diabetes mellitus with foot ulcer E11.621 Active 64972660705560 Problem 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 Active 027693301 Problem Pressure ulcer of unspecified heel, stage 4 L89.60 4 Active 109951468 Problem Unsteady gait R26.81 Active 669183 08 ALLERGIES No Information ENCOUNTERS Encounter Location Date Diagnosis [facility] [address] [facility] [id number] [address] [place] [id number] February, [facility] [address] [facility] [id number] [address] [place] [address] Jan, Chronic skin ulcer with fat layer exposed L98.492 [facility] [address] [id number] [address] [place] [phone] Jan, [facility] [address] [id number] [address] [place] [id number] Jan, Chronic skin ulcer with fat layer exposed L98.492 [facility] [address] [id number] [address] [place] [id number] Dec, [facility] [address] [id number] [address] [place] [id number] Dec, [facility] [address] [id number] [address] [place] [id number] Dec, Chronic skin ulcer with fat layer exposed L98.492 [facility] [address] [facility] [id number] [address] [place] [phone] Dec, [facility] [address] [id number] [address] [place] [phone] Dec, Unsteady gait R26.81 [facility] [address] [facility] [id number] [address] [place] [id number] Dec, Chronic skin ulcer with fat layer exposed L98.492 ; PAD (peripheral artery disease) I73.9 ; Unsteady gait R26.81 and Weakness of both lower extremities R29.898 [facility] [address] [id number] [address] [place] [phone] Nov, [facility] [address] [id number] [address] [place] [id number] Nov, [facility] [address] [id number] [address] [place] [id number] Nov, [facility] [address] [facility] [id number] [address] [place] [phone] Nov, Chronic skin ulcer with fat layer exposed L98.492 [facility] [address] [facility] [id number] [address] [place] [id number] Oct, Chronic skin ulcer with fat layer exposed L98.492 [facility] [address] [id number] [address] [place] [phone] Oct, [facility] [address] [id number] [address] [place] [id number] Oct, [facility] [address] [id number] [address] [place] [id number] Sep, Chronic skin ulcer with fat layer exposed L98.492 and Unsteady gait R26.81 [facility] [address] [id number] [address] [place] [id number] Sep, [facility] [address] [id number] [address] [place] [id number] Sep, Chronic skin ulcer with fat layer exposed L98.492 [facility] [address] [id number] [address] [place] [id number] Aug, Chronic skin ulcer with fat layer exposed L98.492 [facility] [address] [id number] [address] [place] [id number] Aug, [facility] [address] [id number] [address] [place] [id number] Aug, Type 2 diabetes mellitus wit h foot ulcer E11.621 and Chronic skin ulcer with fat layer exposed L98.492 [facility] [address] [id number] [address] [place] [id number] Jul, Chronic skin ulcer with fat layer exposed L98.492 [facility] [address] [id number] [address] [place] [id number] Jul, [facility] [address] [id number] [address] [place] [id number] Jul, Chronic skin ulcer with fat layer exposed L98.492 [facility] [address] [id number] [address] [place] [id number] Jun, Chronic skin ulcer with fat layer exposed L98.492 [facility] [address] [id number] [address] [place] [id number] Jun, [facility] [address] [id number] [address] [place] [address] Jun, Chronic skin ulcer with fat layer exposed L98.492 [facility] [address] [id number] [address] [place] [phone] May, Chronic skin ulcer with fat layer exposed L98.492 [facility] [address] [id number] [address] [place] [phone] May, [facility] [address] [id number] [address] [place] [address] May, Chronic skin ulcer with fat layer exposed L98.492 [facility] [address] [facility] [id number] [address] [place] [address] Apr, Chronic skin ulcer with fat layer exposed L98.492 [facility] [address] [id number] [address] [place] [id number] Apr, [address] [place] [address] Apr, [facility] [address] [facility] [id number] [address] [place] [address] Apr, Chronic skin ulcer with fat layer exposed L98.492 [facility] [address] [id number] [address] [place] [id number] Apr, Foot callus L84 and Nonheali ng wound of heel S91.309A [facility] [address] [facility] [id number] [address] [place] [id number] Apr, [address] [place], [place] [address] Mar, [facility] [address] [facility] [id number] [address] [place] [address] Mar, Diabetes mellitus E11.9 and Chronic skin ulcer with fat layer exposed L98.492 [facility] [address] [id number] [address] [place] [address] Mar, Chronic skin ulcer with fat layer exposed L98.492 [facility] [address] [id number] [address] [place] [address] Mar, [facility] [address] [id number] [address] [place] [address] February, Chronic skin ulcer with fat layer exposed L98.492 and Encounter for medication monitoring Z51.81 [facility] [address] [id number] [address] [place] [phone] February, [facility] [address] [id number] [address] [place] [address] February, Encounter for medication mon itoring Z51.81 [facility] [address] [id number] [address] [place] [id number] February, [facility] [address] [id number] [address] [place] [id number] February, [facility] [address] [id number] [address] [place] [id number] February, [facility] [address] [id number] [address] [place] [address] Jan, Chronic skin ulcer with fat layer exposed L98.492 [facility] [address] [id number] [address] [place] [phone] Jan, [facility] [address] [id number] [address] [place] [id number] Dec, [facility] [address] [id number] [address] [place] [id number] Dec, Diabetic polyneuropathy asso ciated with type 2 diabetes mellitus E11.42 and PAD (peripheral artery disease) I73.9 [facility] [address] [id number] [address] [place] [id number] Dec, Chronic skin ulcer with fat layer exposed L98.492 [facility] [address] [id number] [address] [place] [phone] Dec, [facility] [address] [id number] [address] [place] [phone] Nov, [facility] [address] [id number] [address] [place] [phone] Nov, Skin ulcer of right foot wit h fat layer exposed L97.512 [facility] [address] [id number] [address] [place] [id number] Oct, [facility] [address] [id number] [address] [place] [address] Oct, Skin ulcer of right foot wit h fat layer exposed L97.512 [facility] [address] [id number] [address] [place] [address] Sep, Diabetes mellitus E11.9 [facility] [address] [id number] [address] [place] [phone] Sep, [facility] [address] [id number] [address] [place] [phone] Sep, [facility] [address] [id number] [address] [place] [phone] Sep, [facility] [address] [id number] [address] [place] [id number] 14 Sep, 2018 Type 2 diabetes mellitus wit h foot ulcer E11.621 and Skin ulcer of right foot with fat layer exposed L97.512 [facility] [address] [id number] [address] [place] [phone] Sep, Diabetes mellitus E11.9 [facility] [address] [id number] [address] [place] [id number] 07 Sep, 2018 [facility] [address] [id number] [address] [place] [phone] Aug, [facility] [address] [id number] [address] [place] [id number] Aug, [facility] [address] [id number] [address] [place] [id number] Aug, 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 [facility] [address] [id number] [address] [place] [phone] Aug, [facility] [address] [id number] [address] [place] [phone] Aug, [facility] [address] [id number] [address] [place] [address] Aug, Bronchitis J40 [facility] [address] [id number] [address] [place] [id number] Aug, [facility] [address] [id number] [address] [place] [address] Jul, [facility] [address] [id number] [address] [place] [address] Jul, Chronic skin ulcer with fat layer exposed L98.492 [facility] [address] [id number] [address] [place] [address] Jul, 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 [facility] [address] [id number] [address] [place] [id number] Jun, [facility] [address] [id number] [address] [place] [id number] Jun, [facility] [address] [id number] [address] [place] [id number] May, [facility] [address] [id number] [address] [place] [address] May, Chronic skin ulcer with fat layer exposed L98.492 [facility] [address] [id number] [address] [place] [id number] Apr, [facility] [address] [facility] [id number] [address] [place] [address] Apr, Type 2 diabetes mellitus wit h foot ulcer E11.621 and Unsteady gait R26.81 [facility] [address] [id number] [address] [place] [id number] Mar, Decubitus ulcer of right mariana l, stage 3 L89.613 [facility] [address] [id number] [address] [place] [id number] Mar, [facility] [address] [facility] [id number] [address] [place] [id number] Mar, Pressure ulcer of unspecifie d heel, stage 4 L89.604 and Type 2 diabetes mellitus with foot ulcer E11.621 [facility] [address] [facility] [id number] [address] [place] [id number] Mar, Encounter for medication mon itoring Z51.81 [facility] [address] [facility] [id number] [address] [place] [id number] Mar, Type 2 diabetes mellitus wit h foot ulcer E11.621 and Non-pressure chronic ulcer of right heel and midfoot with unspecified severity L97.419 [facility] [address] [facility] [id number] [address] [place] [address] February, [facility] [address] [facility] [id number] [address] [place] [address] Jan, Right ankle pain M25.571 [facility] [address] [id number] [address] [place] [id number] Dec, Right ankle pain M25.571 [facility] [address] [facility] [id number] [address] [place] [id number] Dec, [facility] [address] [facility] [id number] [address] [place] [id number] Dec, [facility] [address] [place] [id number] [address] [place] [address] Dec, Right ankle pain M25.571 [facility] [address] [address] Dec, Chronic skin ulcer with fat layer exposed L98.492 ; Type 2 diabetes mellitus with diabetic autonomic (poly)neuropathy E11.43 and Hypertension I10 [facility] [address] [place] [id number] [address] [place] [id number] Nov, [facility] [address] [place] [id number] [address] [place] [phone] Nov, [facility] [address] [address] Nov, [facility] [address] [place] [id number] [place] [address] Nov, Right ankle pain M25.571 and Chronic osteomyelitis of right foot with draining sinus M86.471 [facility] [address] [place] [id number] [address] [place] [id number] Oct, Right ankle pain M25.571 [facility] [address] [address] Oct, [facility] [address] [address] Sep, Diabetes mellitus E11.9 [facility] [address] [place] [id number] [place] [address] Sep, Diabetic polyneuropathy asso ciated with type 2 diabetes mellitus E11.42 and Venous insufficiency I87.2 [facility] [address] [place] [id number] [place] [address] 07 Sep, 2017 Right ankle pain M25.571 [facility] [address] [place] [id number] [place] [address] Aug, Right ankle pain M25.571 [facility] [address] [place] [id number] [address] [place] [address] Aug, Chronic osteomyelitis of rig ht foot with draining sinus M86.471 [facility] [address] [id number] [address] [place] [id number] Aug, [facility] [address] [id number] [address] [place] [address] Aug, [facility] [address] [id number] [address] [place] [address] Aug, Chronic osteomyelitis of rig ht foot with draining sinus M86.471 [facility] [address] [id number] [address] [place] [id number] Jul, [facility] [address] [id number] [address] [place] [address] Jul, [facility] [address] [id number] [address] [place] [address] Jul, Chronic kidney disease N18.9 [facility] [address] [id number] [address] [place] [address] Jul, Right ankle pain M25.571 [facility] [address] [id number] [address] [place] [id number] Jul, Non-healing ulcer of right f oot, unspecified ulcer stage L97.519 [facility] [address] [id number] [address] [place] [address] Jul, Chronic skin ulcer with fat layer exposed L98.492 [facility] [address] [id number] [address] [place] [address] Jul, Deformity of right ankle nitza nt M21.961 [facility] [address] [id number] [address] [place] [id number] Jun, [facility] [address] [id number] [address] [place] [address] Jun, Diabetes mellitus E11.9 ; Sk in ulcer of right foot with fat layer exposed L97.512 and Encounter for immunization Z23 [facility] [address] [id number] [address] [place] [address] Jun, Right ankle pain M25.571 [facility] [address] [id number] [address] [place] [address] May, Right ankle pain M25.571 [facility] [address] [facility] [id number] [address] [place] [address] Apr, Right ankle pain M25.571 [facility] [address] [id number] [address] [place] [address] Mar, Right ankle pain M25.571 [facility] [address] [facility] [id number] [address] [place] [address] Mar, [facility] [address] [facility] [id number] [address] [place] [id number] February, Diabetes mellitus E11.9 and Diabetic polyneuropathy associated with type 2 diabetes mellitus E11.42 [facility] [address] [id number] [address] [place] [address] February, Hyperkalemia E87.5 [facility] [address] [facility] [id number] [address] [place] [id number] February, Right ankle pain M25.571 [facility] [address] [facility] [id number] [address] [place] [address] Jan, Right ankle pain M25.571 [facility] [address] [id number] [address] [place] [address] Dec, Right ankle pain M25.571 [facility] [address] [facility] [id number] [address] [place] [address] Dec, Right ankle pain M25.571 [facility] [address] [facility] [id number] [address] [place] [phone] Nov, [facility] [id number] [place] [address] 07 Nov, 2016 Diabetes mellitus E11.9 ; Hy pertension I10 ; Gastroparesis K31.84 and Type 2 diabetes mellitus with diabetic autonomic (poly)neuropathy E11.43 [facility] [address] [place] [id number] [address] [place] [id number] 03 Nov, 2016 Right ankle pain M25.571 [facility] [address] [place] [id number] [address] [place] [address] Oct, Right ankle pain M25.571 [facility] [address] [place] [id number] [address] [place] [address] Oct, [facility] [address] [address] Oct, [facility] [address] [address] Sep, [facility] [facility] [address] [address] Sep, Hypertension I10 [facility] [address] [address] Sep, Chronic kidney disease N18.9 ; Right ankle pain M25.571 and GERD (gastroesophageal reflux disease) K21.9 [facility] [address] [address] Jul, [facility] [address] [address] Jul, Encounter for immunization Z 23 ; Venous insufficiency I87.2 and Diabetic polyneuropathy associated with type 2 diabetes mellitus E11.42 [facility] [address] [place] [id number] [address] [place] [phone] Jul, [facility] [address] [place] [id number] [place] [address] Jul, Diabetes mellitus E11.9 [facility] [address] [place] [id number] [place] [address], [place] [address] May, [facility] [address] [id number] [address] [place] [id number] Apr, [facility] [address] [id number] [address] [place] [address] Mar, Right ankle pain M25.571 [facility] [address] [id number] [address] [place] [address] Mar, [facility] [address] [id number] [address] [place] [address] February, Paresthesias R20.2 [facility] [address] [id number] [address] [place] [address] February, [facility] [address] [facility] [id number] [address] [place] [id number] February, 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 [facility] [address] [id number] [address] [place] [id number] February, Diabetes mellitus E11.9 [facility] [address] [id number] [address] [place] [address] February, [facility] [address] [facility] [id number] [address] [place] [address] February, Polyneuropathy in diabetes 3 57.2 and Paresthesias R20.2 [facility] [address] [id number] [address] [place] [phone] February, [facility] [address] [id number] [address] [place] [id number] February, [facility] [address] [facility] [id number] [address] [place] [id number] February, [facility] [address] [facility] [id number] [address] [place] [address] February, Diabetes mellitus E11.9 [facility] [address] [id number] [address] [place] [id number] February, [facility] [address] [facility] [id number] [address] [place] [id number] February, Hyperkalemia E87.5 [facility] [address] [facility] [id number] [address] [place] [id number] Jan, Hypertension I10 [facility] [address] [facility] [id number] [address] [place] [id number] Jan, Insomnia G47.00 [facility] [address] [facility] [id number] [address] [place] [phone] Jan, [facility] [address] [facility] [id number] [address] [place] [phone] Jan, [facility] [address] [facility] [id number] [address] [place] [id number] Jan, [facility] [address] [facility] [id number] [address] [place] [id number] Dec, Right ankle pain M25.571 [facility] [address] [facility] [id number] [address] [place] [id number] Dec, GERD (gastroesophageal reflu x disease) K21.9 [facility] [address] [facility] [id number] [address] [place] [id number] Dec, Insomnia G47.00 [facility] [address] [facility] [id number] [address] [place] [id number] Dec, Hypertension I10 and Hyperka lemia 276.7 [facility] [address] [facility] [id number] [address] [place] [phone] Dec, Chronic kidney disease N18.9 [facility] [address] [facility] [id number] [address] [place] [id number] Dec, [facility] [address] [facility] [id number] [address] [place] [id number] Dec, Hyperkalemia E87.5 [facility] [id number] [id number] [address] [place] [id number] 03 Dec, 2015 Chronic kidney disease N18.9 and Right ankle pain M25.571 [facility] [facility] [address] [id number] [address] [place] [id number] 11 Nov, 2015 GERD (gastroesophageal reflu x disease) K21.9 [facility] [address] [id number] [address] [place] [id number] 03 Nov, 2015 Right ankle pain M25.571 [facility] [address] [id number] [address] [place] [id number] 03 Nov, 2015 Diabetes mellitus E11.9 [facility] [address] [id number] [address] [place] [phone] Oct, [facility] [address] [id number] [address] [place] [phone] Oct, [facility] [address] [id number] [address] [place] [phone] Oct, [facility] [address] [id number] [address] [place] [id number] Oct, Hyperkalemia E87.5 [facility] [address] [facility] [id number] [address] [place] [id number] Oct, [facility] [address] [facility] [id number] [address] [place] [phone] Oct, Hyperkalemia E87.5 [facility] [address] [id number] [address] [place] [phone] Sep, [facility] [address] [id number] [address] [place] [phone] Sep, [facility] [address] [id number] [address] [place] [id number] Sep, [facility] [address] [facility] [id number] [address] [place] [id number] Sep, [facility] [address] [facility] [id number] [address] [place] [phone] Sep, Right ankle pain M25.571 [facility] [address] [id number] [address] [place] [phone] Aug, Chronic kidney disease N18.9 [facility] [address] [id number] [address] [place] [id number] Aug, [facility] [address] [id number] [address] [place] [phone] Aug, Hyperkalemia E87.5 [facility] [address] [facility] [id number] [address] [place] [phone] Aug, [facility] [address] [facility] [id number] [address] [place] [phone] Jul, [facility] [address] [facility] [id number] [address] [place] [id number] Jul, [facility] [address] [facility] [id number] [address] [place] [phone] Jul, [facility] [address] [facility] [id number] [address] [place] [phone] Jul, Diabetes mellitus E11.9 ; En counter for immunization Z23 ; Hypertension I10 and Hyperkalemia E87.5 [facility] [address] [facility] [id number] [address] [place] [id number] Jul, [facility] [address] [facility] [id number] [address] [place] [id number] Jul, Hyperkalemia E87.5 [facility] [address] [facility] [id number] [address] [place] [phone] Jul, Hyperkalemia E87.5 [facility] [address] [facility] [id number] [address] [place] [phone] Jun, [facility] [address] [id number] [address] [place] [address], [place] [address] Jun, [facility] [address] [id number] [address] [place] [address], [place] [address] 15 Jun, 2015 [facility] [address] [id number] [address] [place] [address], [place] [address] Jun, [facility] [address] [id number] [address] [place] [address], [place] [address] May, [facility] [address] [id number] [address] [place] [address], [place] [address] May, [facility] [address] [id number] [address] [place] [address], [place] [address] May, [facility] [address] [id number] [address] [place] [address], [place] [address] May, Hyperkalemia 276.7 [facility] [address] [id number] [address] [place] [address], [place] [address] May, [facility] [address] [id number] [address] [place] [address], [place] [address] Apr, Hyperkalemia 276.7 [facility] [address] [id number] [address] [place] [address], [place] [address] Apr, [facility] [address] [id number] [address] [place] [address], [place] [address] Apr, [facility] [address] [id number] [address] [place] [address], [place] [address] Apr, [facility] [address] [id number] [address] [place] [address], [place] [address] Apr, [facility] [address] [id number] [address] [place] [address], [place] [address] Apr, Hyperkalemia 276.7 [facility] [address] [id number] [address] [place] [address], [place] [address] Apr, [facility] [address] [id number] [address] [place] [phone] Apr, [facility] [address] [id number] [address] [place] [phone] Mar, [facility] [address] [id number] [address] [place] [id number] Mar, Hyperkalemia 276.7 [facility] [address] [id number] [address] [place] [id number] Mar, Hyperkalemia 276.7 [facility] [address] [id number] [address] [place] [phone] Mar, [facility] [address] [id number] [address] [place] [phone] Mar, [facility] [address] [id number] [address] [place] [id number] Mar, [facility] [address] [id number] [address] [place] [phone] Mar, [facility] [address] [id number] [address] [place] [id number] Mar, Anserine bursitis 726.61 [facility] [address] [id number] [address] [place] [id number] Mar, Asthma 493.90 and Hyperkalem ia 276.7 [facility] [address] [id number] [address] [place] [id number] Mar, [facility] [address] [id number] [address] [place] [phone] February, [facility] [address] [id number] [address] [place] [phone] February, [facility] [address] [id number] [address] [place] [phone] February, [facility] [address] [id number] [address] [place] [phone] February, [facility] [address] [id number] [address] [place] [address], [place] [address] February, [facility] [address] [id number] [address] [place] [address], [place] [address] February, [facility] [address] [id number] [address] [place] [address], [place] [address] February, [facility] [address] [id number] [address] [place] [address], [place] [address] February, [facility] [address] [id number] [address] [place] [address], [place] [address] February, [facility] [address] [id number] [address] [place] [address], [place] [address] Jan, [facility] [address] [id number] [address] [place] [address], [place] [address] Jan, [facility] [address] [id number] [address] [place] [address], [place] [address] Dec, [facility] [address] [id number] [address] [place] [address], [place] [address] Dec, [facility] [address] [id number] [address] [place] [address], [place] [address] Dec, [facility] [address] [id number] [address] [place] [address], [place] [address] Dec, [facility] [address] [id number] [address] [place] [address], [place] [address] Dec, [facility] [address] [id number] [address] [place] [address], [place] [address] Dec, [facility] [address] [id number] [address] [place] [address], [place] [address] Dec, [facility] [address] [id number] [address] [place] [address], [place] [address] Dec, [facility] [address] [id number] [address] [place] [address], [place] [address] Dec, [facility] [address] [id number] [address] [place] [address], [place] [address] Dec, [facility] [address] [id number] [address] [place] [address], [place] [address] Dec, [facility] [address] [id number] [address] [place] [address], [place] [address] Dec, [facility] [address] [id number] [address] [place] [address], [place] [address] Dec, [facility] [address] [id number] [address] [place] [address], [place] [address] Dec, [facility] [address] [id number] [address] [place] [address], [place] [address] Nov, [facility] [address] [id number] [address] [place] [address], [place] [address] Nov, [facility] [address] [id number] [address] [place] [address], [place] [address] Nov, [facility] [address] [id number] [address] [place] [address], [place] [address] Nov, [facility] [address] [id number] [address] [place] [address], [place] [address] Nov, [facility] [address] [id number] [address] [place] [address], [place] [address] Nov, [facility] [address] [id number] [address] [place] [address], [place] [address] Oct, [facility] [address] [id number] [address] [place] [address], [place] [address] Oct, [facility] [address] [id number] [address] [place] [address], [place] [address] Oct, [facility] [address] [id number] [address] [place] [address], [place] [address] Oct, [facility] [address] [id number] [address] [place] [address], [place] [address] Oct, [facility] [address] [id number] [address] [place] [address], [place] [address] Oct, [facility] [address] [id number] [address] [place] [address], [place] [address] Sep, [facility] [address] [id number] [address] [place] [address], [place] [address] Sep, [facility] [address] [id number] [address] [place] [address], [place] [address] Sep, [facility] [address] [id number] [address] [place] [address], [place] [address] Sep, [facility] [address] [id number] [address] [place] [address], [place] [address] Sep, [facility] [address] [id number] [address] [place] [address], [place] [address] Sep, [facility] [address] [id number] [address] [place] [address], [place] [address] Aug, [facility] [address] [id number] [address] [place] [address], [place] [address] Aug, [facility] [address] [id number] [address] [place] [address], [place] [address] Aug, [facility] [address] [id number] [address] [place] [address], [place] [address] Aug, [facility] [address] [id number] [address] [place] [address], [place] [address] Aug, [facility] [address] [id number] [address] [place] [address], [place] [address] Aug, [facility] [address] [id number] [address] [place] [address], [place] [address] Jul, [facility] [address] [id number] [address] [place] [phone] Jul, [facility] [address] [id number] [address] [place] [address], [place] [address] Jul, [facility] [address] [id number] [address] [place] [address], [place] [address] Jul, [facility] [address] [id number] [address] [place] [address], [place] [address] Jul, [facility] [address] [id number] [address] [place] [address], [place] [address] Jul, [facility] [address] [id number] [address] [place] [address], [place] [address] Jul, [facility] [address] [id number] [address] [place] [address], [place] [address] Jul, [facility] [address] [id number] [address] [place] [address], [place] [address] Jul, [facility] [address] [id number] [address] [place] [address], [place] [address] Jul, [facility] [address] [id number] [address] [place] [address], [place] [address] Jul, [facility] [address] [id number] [address] [place] [address], [place] [address] Jun, [facility] [address] [id number] [address] [place] [address], [place] [address] Jun, [facility] [address] [id number] [address] [place] [id number] Jun, [facility] [address] [id number] [address] [place] [address], [place] [address] Jun, [facility] [address] [id number] [address] [place] [address] Apr, [facility] [address] [id number] [address] [place] [address], [place] [address] Apr, [facility] [address] [id number] [address] [place] [id number] Apr, [facility] [address] [id number] [address] [place] [phone] Apr, [facility] [address] [id number] [address] [place] [id number] Mar, [facility] [address] [id number] [address] [place] [phone] Mar, [facility] [address] [id number] [address] [place] [id number] Mar, [facility] [address] [id number] [address] [place] [id number] Mar, [facility] [address] [id number] [address] [place] [phone] Mar, [facility] [address] [id number] [address] [place] [phone] Sep, [facility] [address] [id number] [address] [place] [id number] Sep, [facility] [address] [id number] [address] [place] [id number] Aug, IMMUNIZATIONS No Known Immunizations SOCIAL HISTORY [...] V C oct 2016 Hospitalization History Pneum[place]2018 Hospitalization History fistula in left arm 07/2018
--- OUTSIDE RECORDS SUMMARY | 2020-04-01 19:24 | XMS REPORT ---
Author Author Josephine WILLIS Organization [facility] Address [address] [place] [address] Care Team Providers Care Piano Maker Name Role Phone OLYA WILLIS Unavailable PROBLEMS Type Condition ICD9-CM Code FPT75-PM Code Onset Dates Condition S tatus SNOMED Code Problem Diabetes mellitus E11.9 Active 73 972054 Problem Hypertension I10 Active 3716163 3 Problem Paresthesias R20.2 Active 9081456 4 Problem Chronic kidney disease N18.9 Active 276919925 Problem Venous insufficiency I87.2 Active 10978673 Problem Diabetic polyneuropathy associated with type 2 d iabetes mellitus E11.42 Active 48610895 Problem Type 2 diabetes mellitus with diabetic autonomic (poly)neuropathy E11.43 Active 001783049 Problem Chronic skin ulcer with fat layer exposed L98.492 Active 04664735 Problem Chronic osteomyelitis of right foot with draining sinus M86.471 Active [id number] Problem PAD (peripheral artery disease) I73.9 Active 439624306 Problem Gastroparesis K31.84 Active 885459 006 Problem Seasonal allergic rhinitis due to other allergic trigger J30.89 Active 354490681 Problem GERD (gastroesophageal reflux disease) K21.9 Active 465858385 Problem Type 2 diabetes mellitus with foot ulcer E11.621 Active 13669731672828 Problem 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 Active 636808891 Problem Pressure ulcer of unspecified heel, stage 4 L89.60 4 Active 937915375 Problem Unsteady gait R26.81 Active 800853 08 ALLERGIES No Information ENCOUNTERS Encounter Location Date Diagnosis [facility] [address] [facility] [id number] [address] [place] [id number] Jan, [facility] [address] [facility] [id number] [address] [place] [address] Jan, [facility] [address] [id number] [address] [place] [address] Jan, Chronic skin ulcer with fat layer exposed L98.492 [facility] [address] [id number] [address] [place] [address] Dec, [facility] [address] [id number] [address] [place] [address] Dec, [facility] [address] [id number] [address] [place] [address] Dec, Chronic skin ulcer with fat layer exposed L98.492 [facility] [address] [id number] [address] [place] [address] Dec, [facility] [address] [facility] [id number] [address] [place] [address] Dec, Unsteady gait R26.81 [facility] [address] [facility] [id number] [address] [place] [address] Dec, Chronic skin ulcer with fat layer exposed L98.492 ; PAD (peripheral artery disease) I73.9 ; Unsteady gait R26.81 and Weakness of both lower extremities R29.898 [facility] [address] [id number] [address] [place] [address] Nov, [facility] [address] [id number] [address] [place] [address] Nov, [facility] [address] [facility] [id number] [address] [place] [address] Nov, [facility] [address] [facility] [id number] [address] [place] [address] Nov, Chronic skin ulcer with fat layer exposed L98.492 [facility] [address] [facility] [id number] [address] [place] [address] Oct, Chronic skin ulcer with fat layer exposed L98.492 [facility] [address] [facility] [id number] [address] [place] [address] Oct, [facility] [address] [id number] [address] [place] [address] Oct, [facility] [address] [id number] [address] [place] [address] Sep, Chronic skin ulcer with fat layer exposed L98.492 and Unsteady gait R26.81 [facility] [address] [id number] [address] [place] [address] Sep, [facility] [address] [id number] [address] [place] [address] Sep, Chronic skin ulcer with fat layer exposed L98.492 [facility] [address] [id number] [address] [place] [address] Aug, Chronic skin ulcer with fat layer exposed L98.492 [facility] [address] [id number] [address] [place] [address] Aug, [facility] [address] [id number] [address] [place] [address] Aug, Type 2 diabetes mellitus wit h foot ulcer E11.621 and Chronic skin ulcer with fat layer exposed L98.492 [facility] [address] [id number] [address] [place] [address] Jul, Chronic skin ulcer with fat layer exposed L98.492 [facility] [address] [id number] [address] [place] [address] Jul, [facility] [address] [id number] [address] [place] [address] Jul, Chronic skin ulcer with fat layer exposed L98.492 [facility] [address] [id number] [address] [place] [address] Jun, Chronic skin ulcer with fat layer exposed L98.492 [facility] [address] [id number] [address] [place] [address] Jun, [facility] [address] [facility] [id number] [address] [place] [address] Jun, Chronic skin ulcer with fat layer exposed L98.492 [facility] [address] [facility] [id number] [address] [place] [address] May, Chronic skin ulcer with fat layer exposed L98.492 [facility] [address] [facility] [id number] [address] [place] [address] May, [facility] [address] [facility] [id number] [address] [place] [address] May, Chronic skin ulcer with fat layer exposed L98.492 [facility] [address] [facility] [id number] [address] [place] [address] Apr, Chronic skin ulcer with fat layer exposed L98.492 [facility] [address] [facility] [id number] [address] [place] [address] Apr, [address] [id number] [address] Apr, [facility] [address] [facility] [id number] [address] [place] [address] Apr, Chronic skin ulcer with fat layer exposed L98.492 [facility] [address] [facility] [id number] [address] [place] [address] Apr, Foot callus L84 and Nonheali ng wound of heel S91.309A [facility] [address] [facility] [id number] [address] [place] [address] Apr, [address] [id number] [address] Mar, [facility] [address] [facility] [id number] [address] [place] [address] Mar, Diabetes mellitus E11.9 and Chronic skin ulcer with fat layer exposed L98.492 [facility] [address] [facility] [id number] [address] [place] [address] Mar, Chronic skin ulcer with fat layer exposed L98.492 [facility] [address] [id number] [address] [place] [address] Mar, [facility] [address] [id number] [address] [place] [address] February, Chronic skin ulcer with fat layer exposed L98.492 and Encounter for medication monitoring Z51.81 [facility] [address] [id number] [address] [place] [address] February, [facility] [address] [id number] [address] [place] [address] February, Encounter for medication mon itoring Z51.81 [facility] [address] [id number] [address] [place] [address] February, [facility] [address] [id number] [address] [place] [address] February, [facility] [address] [id number] [address] [place] [address] February, [facility] [address] [id number] [address] [place] [address] Jan, Chronic skin ulcer with fat layer exposed L98.492 [facility] [address] [id number] [address] [place] [address] Jan, [facility] [address] [id number] [address] [place] [address] Dec, [facility] [address] [id number] [address] [place] [address] Dec, Diabetic polyneuropathy asso ciated with type 2 diabetes mellitus E11.42 and PAD (peripheral artery disease) I73.9 [facility] [address] [id number] [address] [place] [address] Dec, Chronic skin ulcer with fat layer exposed L98.492 [facility] [address] [id number] [address] [place] [address] Dec, [facility] [address] [id number] [address] [place] [address] Nov, [facility] [address] [id number] [address] [place] [address] Nov, Skin ulcer of right foot wit h fat layer exposed L97.512 [facility] [address] [id number] [address] [place] [address] Oct, [facility] [address] [id number] [address] [place] [address] Oct, Skin ulcer of right foot wit h fat layer exposed L97.512 [facility] [address] [id number] [address] [place] [address] Sep, Diabetes mellitus E11.9 [facility] [address] [id number] [address] [place] [address] Sep, [facility] [address] [id number] [address] [place] [address] Sep, [facility] [address] [id number] [address] [place] [address] Sep, [facility] [address] [id number] [address] [place] [address] Sep, Type 2 diabetes mellitus wit h foot ulcer E11.621 and Skin ulcer of right foot with fat layer exposed L97.512 [facility] [address] [id number] [address] [place] [address] Sep, Diabetes mellitus E11.9 [facility] [address] [id number] [address] [place] [address] Sep, [facility] [address] [id number] [address] [place] [address] Aug, [facility] [address] [id number] [address] [place] [address] Aug, [facility] [address] [id number] [address] [place] [address] Aug, 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 [facility] [address] [id number] [address] [place] [address] Aug, [facility] [address] [id number] [address] [place] [address] Aug, [facility] [address] [id number] [address] [place] [address] Aug, Bronchitis J40 [facility] [address] [id number] [address] [place] [address] Aug, [facility] [address] [id number] [address] [place] [address] Jul, [facility] [address] [id number] [address] [place] [address] Jul, Chronic skin ulcer with fat layer exposed L98.492 [facility] [address] [id number] [address] [place] [address] Jul, 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 [facility] [address] [id number] [address] [place] [address] Jun, [facility] [address] [id number] [address] [place] [address] Jun, [facility] [address] [id number] [address] [place] [address] May, [facility] [address] [id number] [address] [place] [address] May, Chronic skin ulcer with fat layer exposed L98.492 [facility] [address] [id number] [address] [place] [address] Apr, [facility] [address] [id number] [address] [place] [address] Apr, Type 2 diabetes mellitus wit h foot ulcer E11.621 and Unsteady gait R26.81 [facility] [address] [id number] [address] [place] [address] Mar, Decubitus ulcer of right mariana l, stage 3 L89.613 [place] [address] [id number] [address] [place] [address] Mar, [place] [address] [id number] [address] [place] [address] Mar, Pressure ulcer of unspecifie d heel, stage 4 L89.604 and Type 2 diabetes mellitus with foot ulcer E11.621 [place] [address] [id number] [address] [place] [address] Mar, Encounter for medication mon itoring Z51.81 [place] [address] [facility] [id number] [address] [place] [address] Mar, Type 2 diabetes mellitus wit h foot ulcer E11.621 and Non-pressure chronic ulcer of right heel and midfoot with unspecified severity L97.419 [place] [address] [facility] [id number] [address] [place] [address] February, [place] [address] [facility] [id number] [address] [place] [address] Jan, Right ankle pain M25.571 [place] [address] [facility] [id number] [address] [place] [address] Dec, Right ankle pain M25.571 [place] [address] [id number] [address] [place] [address] Dec, [place] [address] [facility] [id number] [address] [place] [address] Dec, [facility] [address] [id number] [address] [place] [address] Dec, Right ankle pain M25.571 [place] [address] [id number] [address] [place] [address] Dec, Chronic skin ulcer with fat layer exposed L98.492 ; Type 2 diabetes mellitus with diabetic autonomic (poly)neuropathy E11.43 and Hypertension I10 [facility] [address] [facility] [id number] [address] [place] [address] Nov, [facility] [address] [facility] [id number] [address] [place] [address] Nov, [facility] [address] [facility] [id number] [address] [place] [address] Nov, [facility] [address] [facility] [id number] [address] [place] [address] Nov, Right ankle pain M25.571 and Chronic osteomyelitis of right foot with draining sinus M86.471 [facility] [address] [place] [id number] [address] [place] [address] Oct, Right ankle pain M25.571 [facility] [address] [facility] [id number] [address] [place] [address] Oct, [facility] [address] [place] [id number] [address] [place] [address] Sep, Diabetes mellitus E11.9 [facility] [address] [facility] [id number] [address] [place] [address] Sep, Diabetic polyneuropathy asso ciated with type 2 diabetes mellitus E11.42 and Venous insufficiency I87.2 [facility] [address] [place] [id number] [address] [place] [address] Sep, Right ankle pain M25.571 [facility] [address] [place] [id number] [address] [place] [address] Aug, Right ankle pain M25.571 [facility] [address] [facility] [id number] [address] [place] [address] Aug, Chronic osteomyelitis of rig ht foot with draining sinus M86.471 [facility] [address] [id number] [address] [place] [address] Aug, [facility] [address] [id number] [address] [place] [address] Aug, [facility] [address] [facility] [id number] [address] [place] [address] Aug, Chronic osteomyelitis of rig ht foot with draining sinus M86.471 [facility] [address] [id number] [address] [place] [address] Jul, [facility] [address] [id number] [address] [place] [address] Jul, [facility] [address] [facility] [id number] [address] [place] [address] Jul, Chronic kidney disease N18.9 [facility] [address] [facility] [id number] [address] [place] [address] Jul, Right ankle pain M25.571 [facility] [address] [facility] [id number] [address] [place] [address] Jul, Non-healing ulcer of right f oot, unspecified ulcer stage L97.519 [place] [address] [facility] [id number] [address] [place] [address] Jul, Chronic skin ulcer with fat layer exposed L98.492 [place] [address] [facility] [id number] [address] [place] [address] Jul, Deformity of right ankle nitza nt M21.961 [facility] [address] [facility] [id number] [address] [place] [address] Jun, [facility] [address] [facility] [id number] [address] [place] [address] Jun, Diabetes mellitus E11.9 ; Sk in ulcer of right foot with fat layer exposed L97.512 and Encounter for immunization Z23 [facility] [address] [facility] [id number] [address] [place] [address] Jun, Right ankle pain M25.571 [facility] [address] [facility] [id number] [address] [place] [address] May, Right ankle pain M25.571 [facility] [address] [facility] [id number] [address] [place] [address] Apr, Right ankle pain M25.571 [facility] [address] [facility] [id number] [address] [place] [address] Mar, Right ankle pain M25.571 [facility] [address] [id number] [address] [place] [address] Mar, [facility] [address] [facility] [id number] [address] [place] [address] February, Diabetes mellitus E11.9 and Diabetic polyneuropathy associated with type 2 diabetes mellitus E11.42 [facility] [address] [place] [id number] [address] [place] [address] February, Hyperkalemia E87.5 [facility] [address] [facility] [id number] [address] [place] [address] February, Right ankle pain M25.571 [facility] [address] [facility] [id number] [address] [place] [address] Jan, Right ankle pain M25.571 [facility] [address] [facility] [id number] [address] [place] [address] Dec, Right ankle pain M25.571 [facility] [address] [facility] [id number] [address] [place] [address] Dec, Right ankle pain M25.571 [facility] [address] [facility] [id number] [address] [place] [address] Nov, [facility] [address] [facility] [id number] [address] [place] [address] Nov, Diabetes mellitus E11.9 ; Hy pertension I10 ; Gastroparesis K31.84 and Type 2 diabetes mellitus with diabetic autonomic (poly)neuropathy E11.43 [facility] [address] [facility] [id number] [address] [place] [phone] Nov, Right ankle pain M25.571 [facility] [address] [facility] [id number] [address] [place] [phone] Oct, Right ankle pain M25.571 [facility] [address] [facility] [id number] [address] [place] [phone] Oct, [facility] [address] [facility] [id number] [address] [place] [phone] Oct, [facility] [address] [place] [id number] [place] [phone] Sep, [place] [address] [place] [id number] [place] [phone] Sep, Hypertension I10 [facility] [address] [place] [id number] [place] [phone] Sep, Chronic kidney disease N18.9 ; Right ankle pain M25.571 and GERD (gastroesophageal reflux disease) K21.9 [facility] [address] [place] [id number] [address] [place] [id number] Jul, [facility] [address] [place] [id number] [address] [place] [phone] Jul, Encounter for immunization Z 23 ; Venous insufficiency I87.2 and Diabetic polyneuropathy associated with type 2 diabetes mellitus E11.42 [facility] [address] [facility] [id number] [address] [place] [phone] Jul, [facility] [address] [place] [id number] [place] [phone] Jul, Diabetes mellitus E11.9 [facility] [address] [facility] [id number] [address] [place] [phone] May, [facility] [address] [place] [id number] [address] [place] [phone] Apr, [facility] [address] [id number] [address] [place] [phone] Mar, Right ankle pain M25.571 [facility] [address] [id number] [address] [place] [phone] Mar, [facility] [address] [id number] [address] [place] [phone] February, Paresthesias R20.2 [facility] [address] [id number] [address] [place] [phone] February, [facility] [address] [id number] [address] [place] [phone] February, 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 [facility] [address] [id number] [address] [place] [id number] February, Diabetes mellitus E11.9 [facility] [address] [id number] [address] [place] [phone] February, [facility] [address] [id number] [address] [place] [phone] February, Polyneuropathy in diabetes 3 57.2 and Paresthesias R20.2 [facility] [address] [id number] [address] [place] [phone] February, [facility] [address] [id number] [address] [place], [place] [id number] February, [facility] [address] [id number] [address] [place] [id number] February, [facility] [address] [id number] [address] [place] [phone] February, Diabetes mellitus E11.9 [facility] [address] [id number] [address] [place] [address] February, [facility] [address] [id number] [address] [place] [address] February, Hyperkalemia E87.5 [facility] [address] [facility] [id number] [address] [place] [phone] Jan, Hypertension I10 [facility] [address] [facility] [id number] [address] [place] [address] Jan, Insomnia G47.00 [facility] [address] [facility] [id number] [address] [place] [phone] Jan, [facility] [address] [facility] [id number] [address] [place] [phone] Jan, [facility] [address] [facility] [id number] [address] [place] [phone] Jan, [facility] [address] [facility] [id number] [address] [place] [phone] Dec, Right ankle pain M25.571 [facility] [address] [place] [id number] [address] [place] [id number] Dec, GERD (gastroesophageal reflu x disease) K21.9 [facility] [address] [facility] [id number] [address] [place] [phone] Dec, Insomnia G47.00 [facility] [address] [facility] [id number] [address] [place] [address] Dec, Hypertension I10 and Hyperka lemia 276.7 [facility] [address] [facility] [id number] [address] [place] [id number] Dec, Chronic kidney disease N18.9 [facility] [address] [facility] [id number] [address] [place] [phone] Dec, [facility] [address] [facility] [id number] [address] [place] [address] Dec, Hyperkalemia E87.5 [facility] [address] [facility] [id number] [address] [place] [address] Dec, Chronic kidney disease N18.9 and Right ankle pain M25.571 [facility] [address] [id number] [address] [place] [id number] 11 Nov, 2015 GERD (gastroesophageal reflu x disease) K21.9 [facility] [address] [id number] [address] [place] [address] Nov, Right ankle pain M25.571 [facility] [address] [id number] [address] [place] [id number] Nov, Diabetes mellitus E11.9 [facility] [address] [id number] [address] [place] [phone] Oct, [facility] [address] [id number] [address] [place] [address] Oct, [facility] [address] [id number] [address] [place] [address] Oct, [facility] [address] [id number] [address] [place] [address] Oct, Hyperkalemia E87.5 [facility] [address] [id number] [address] [place] [phone] Oct, [facility] [address] [id number] [address] [place] [address] Oct, Hyperkalemia E87.5 [facility] [address] [id number] [address] [place] [phone] Sep, [facility] [address] [id number] [address] [place] [phone] Sep, [facility] [address] [id number] [address] [place] [id number] Sep, [facility] [address] [id number] [address] [place] [address] Sep, [facility] [address] [id number] [address] [place] [address] Sep, Right ankle pain M25.571 [facility] [address] [facility] [id number] [address] [place] [address] Aug, Chronic kidney disease N18.9 [facility] [address] [facility] [id number] [address] [place] [id number] Aug, [facility] [address] [facility] [id number] [address] [place] [phone] Aug, Hyperkalemia E87.5 [facility] [address] [facility] [id number] [address] [place] [phone] Aug, [facility] [address] [facility] [id number] [address] [place] [phone] Jul, [facility] [address] [facility] [id number] [address] [place] [phone] Jul, [facility] [address] [place] [id number] [address] [place] [id number] Jul, [facility] [address] [facility] [id number] [address] [place] [phone] Jul, Diabetes mellitus E11.9 ; En counter for immunization Z23 ; Hypertension I10 and Hyperkalemia E87.5 [facility] [address] [facility] [id number] [address] [place] [id number] Jul, [facility] [address] [facility] [id number] [address] [place] [address] Jul, Hyperkalemia E87.5 [facility] [address] [facility] [id number] [address] [place] [address] Jul, Hyperkalemia E87.5 [facility] [address] [facility] [id number] [address] [place] [address] Jun, [facility] [address] [facility] [id number] [address] [place] [phone] Jun, [facility] [address] [facility] [id number] [address] [place] [phone] 15 Jun, 2015 [facility] [address] [id number] [address] [place] [address], [place] [address] Jun, [facility] [address] [id number] [address] [place] [address], [place] [address] May, [facility] [address] [id number] [address] [place] [address], [place] [address] May, [facility] [address] [id number] [address] [place] [address], [place] [address] May, [facility] [address] [id number] [address] [place] [address], [place] [address] May, Hyperkalemia 276.7 [facility] [address] [id number] [address] [place] [address], [place] [address] May, [facility] [address] [id number] [address] [place] [address], [place] [address] Apr, Hyperkalemia 276.7 [facility] [address] [id number] [address] [place] [address], [place] [address] Apr, [facility] [address] [id number] [address] [place] [address], [place] [address] Apr, [facility] [address] [id number] [address] [place] [address], [place] [address] Apr, [facility] [address] [id number] [address] [place] [address], [place] [address] Apr, [facility] [address] [id number] [address] [place] [address], [place] [address] 14 Apr, 2015 Hyperkalemia 276.7 [facility] [address] [id number] [address] [place] [address], [place] [address] Apr, [facility] [address] [id number] [address] [place] [address], [place] [address] Apr, [facility] [address] [id number] [address] [place] [address] [address] Mar, [facility] [address] [id number] [address] [place] [phone] Mar, Hyperkalemia 276.7 [facility] [address] [id number] [address] [place] [id number] Mar, Hyperkalemia 276.7 [facility] [address] [id number] [address] [place] [id number] Mar, [facility] [address] [id number] [address] [place] [address] Mar, [facility] [address] [id number] [address] [place] [id number] Mar, [facility] [address] [id number] [address] [place] [address] Mar, [facility] [address] [id number] [address] [place] [address] Mar, Anserine bursitis 726.61 [facility] [address] [id number] [address] [place] [address] Mar, Asthma 493.90 and Hyperkalem ia 276.7 [facility] [address] [id number] [address] [place] [address] Mar, [facility] [address] [id number] [address] [place] [phone] February, [facility] [address] [id number] [address] [place] [address] February, [facility] [address] [id number] [address] [place] [id number] February, [facility] [address] [id number] [address] [place] [address] February, [facility] [address] [id number] [address] [place] [phone] February, [facility] [address] [id number] [address] [place] [address], [place] [address] February, [facility] [address] [id number] [address] [place] [address], [place] [address] February, [facility] [address] [id number] [address] [place] [address], [place] [address] February, [facility] [address] [id number] [address] [place] [address], [place] [address] February, [facility] [address] [id number] [address] [place] [address], [place] [address] Jan, [facility] [address] [id number] [address] [place] [address], [place] [address] Jan, [facility] [address] [id number] [address] [place] [address], [place] [address] Dec, [facility] [address] [id number] [address] [place] [address], [place] [address] Dec, [facility] [address] [id number] [address] [place] [address], [place] [address] Dec, [facility] [address] [id number] [address] [place] [address], [place] [address] Dec, [facility] [address] [id number] [address] [place] [address], [place] [address] Dec, [facility] [address] [id number] [address] [place] [address], [place] [address] Dec, [facility] [address] [id number] [address] [place] [address], [place] [address] Dec, [facility] [address] [id number] [address] [place] [address], [place] [address] Dec, [facility] [address] [id number] [address] [place] [address], [place] [address] Dec, [facility] [address] [id number] [address] [place] [address], [place] [address] Dec, [facility] [address] [id number] [address] [place] [address], [place] [address] Dec, [facility] [address] [id number] [address] [place] [address], [place] [address] Dec, [facility] [address] [id number] [address] [place] [address], [place] [address] Dec, [facility] [address] [id number] [address] [place] [address], [place] [address] Dec, [facility] [address] [id number] [address] [place] [address], [place] [address] Nov, [facility] [address] [id number] [address] [place] [address], [place] [address] Nov, [facility] [address] [id number] [address] [place] [address], [place] [address] Nov, [facility] [address] [id number] [address] [place] [address], [place] [address] Nov, [facility] [address] [id number] [address] [place] [address], [place] [address] Nov, [facility] [address] [id number] [address] [place] [address], [place] [address] Nov, [facility] [address] [id number] [address] [place] [address], [place] [address] Oct, [facility] [address] [id number] [address] [place] [address], [place] [address] Oct, [facility] [address] [id number] [address] [place] [address], [place] [address] Oct, [facility] [address] [id number] [address] [place] [address], [place] [address] Oct, [facility] [address] [id number] [address] [place] [address], [place] [address] Oct, [facility] [address] [id number] [address] [place] [address], [place] [address] Oct, [facility] [address] [id number] [address] [place] [address], [place] [address] Sep, [facility] [address] [id number] [address] [place] [address], [place] [address] Sep, [facility] [address] [id number] [address] [place] [address], [place] [address] Sep, [facility] [address] [id number] [address] [place] [address], [place] [address] Sep, [facility] [address] [id number] [address] [place] [address], [place] [address] Sep, [facility] [address] [id number] [address] [place] [address], [place] [address] Sep, [facility] [address] [id number] [address] [place] [address], [place] [address] Aug, [facility] [address] [id number] [address] [place] [address], [place] [address] Aug, [facility] [address] [id number] [address] [place] [address], [place] [address] Aug, [facility] [address] [id number] [address] [place] [address], [place] [address] Aug, [facility] [address] [id number] [address] [place] [address], [place] [address] Aug, [facility] [address] [id number] [address] [place] [address], [place] [address] Aug, [facility] [address] [id number] [address] [place] [address], [place] [address] Jul, [facility] [address] [id number] [address] [place] [address], [place] [address] Jul, [facility] [address] [id number] [address] [place] [address], [place] [address] Jul, [facility] [address] [id number] [address] [place] [address], [place] [address] Jul, [facility] [address] [id number] [address] [place] [address], [place] [address] Jul, [facility] [address] [id number] [address] [place] [address], [place] [address] Jul, [facility] [address] [id number] [address] [place] [address], [place] [address] Jul, [facility] [address] [id number] [address] [place] [address], [place] [address] Jul, [facility] [address] [id number] [address] [place] [address], [place] [address] Jul, [facility] [address] [id number] [address] [place] [address], [place] [address] Jul, [facility] [address] [id number] [address] [place] [address], [place] [address] Jul, [facility] [address] [id number] [address] [place] [address], [place] [address] Jun, [facility] [address] [id number] [address] [place] [address], [place] [address] Jun, [facility] [address] [id number] [address] [place] [address], [place] [address] Jun, [facility] [address] [id number] [address] [place] [address], [place] [address] Jun, [facility] [address] [id number] [address] [place] [address], [place] [address] Apr, [facility] [address] [id number] [address] [place] [address], [place] [address] Apr, [facility] [address] [id number] [address] [place] [address], [place] [address] Apr, [facility] [address] [id number] [address] [place] [address] Apr, [facility] [address] [id number] [address] [place] [address] Mar, [facility] [address] [id number] [address] [place] [id number] Mar, [facility] [address] [id number] [address] [place] [address] Mar, [facility] [address] [id number] [address] [place] [address] Mar, [facility] [address] [id number] [address] [place] [id number] Mar, [facility] [address] [id number] [address] [place] [id number] Sep, [facility] [address] [id number] [address] [place] [address] Sep, [facility] [address] [id number] [address] [place] [id number] Aug, IMMUNIZATIONS No Known Immunizations SOCIAL HISTORY [...] V C oct 2016 Hospitalization History Pneumonia [place] [facility] 06/2018 Hospitalization History fistula in left arm 07/2018
--- OUTSIDE RECORDS SUMMARY | 2020-04-01 19:25 | XMS REPORT ---
Author Author Josephine WILLIS Organization [facility] Address [address] [place] [address] Care Team Providers Care Director Of Quality Name Role Phone OLYA WILLIS Unavailable PROBLEMS Type Condition ICD9-CM Code ZJT32-UT Code Onset Dates Condition S tatus SNOMED Code Problem Diabetes mellitus E11.9 Active 73 607479 Problem Hypertension I10 Active 9042323 3 Problem Paresthesias R20.2 Active 8225725 4 Problem Chronic kidney disease N18.9 Active 466371185 Problem Venous insufficiency I87.2 Active 31525477 Problem Diabetic polyneuropathy associated with type 2 d iabetes mellitus E11.42 Active 12889855 Problem Type 2 diabetes mellitus with diabetic autonomic (poly)neuropathy E11.43 Active 736904999 Problem Chronic skin ulcer with fat layer exposed L98.492 Active 85532279 Problem Chronic osteomyelitis of right foot with draining sinus M86.471 Active [id number] Problem PAD (peripheral artery disease) I73.9 Active 247202100 Problem Gastroparesis K31.84 Active 339034 006 Problem Seasonal allergic rhinitis due to other allergic trigger J30.89 Active 520515075 Problem GERD (gastroesophageal reflux disease) K21.9 Active 797805410 Problem Type 2 diabetes mellitus with foot ulcer E11.621 Active 69789327695966 Problem 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 Active 545932936 Problem Pressure ulcer of unspecified heel, stage 4 L89.60 4 Active 062881952 Problem Unsteady gait R26.81 Active 813257 08 ALLERGIES No Information ENCOUNTERS Encounter Location Date Diagnosis [facility] [address] [facility] [id number] [address] [place] [phone] Jan, [facility] [address] [facility] [id number] [address] [place] [address] Jan, [facility] [address] [id number] [address] [place] [address] Jan, Chronic skin ulcer with fat layer exposed L98.492 [facility] [address] [id number] [address] [place] [phone] Dec, [facility] [address] [id number] [address] [place] [address] Dec, [facility] [address] [id number] [address] [place] [address] Dec, Chronic skin ulcer with fat layer exposed L98.492 [facility] [address] [id number] [address] [place] [phone] Dec, [facility] [address] [facility] [id number] [address] [place] [address] Dec, Unsteady gait R26.81 [facility] [address] [facility] [id number] [address] [place] [address] Dec, Chronic skin ulcer with fat layer exposed L98.492 ; PAD (peripheral artery disease) I73.9 ; Unsteady gait R26.81 and Weakness of both lower extremities R29.898 [facility] [address] [id number] [address] [place] [address] Nov, [facility] [address] [id number] [address] [place] [phone] Nov, [facility] [address] [facility] [id number] [address] [place] [address] Nov, [facility] [address] [facility] [id number] [address] [place] [address] Nov, Chronic skin ulcer with fat layer exposed L98.492 [facility] [address] [facility] [id number] [address] [place] [address] Oct, Chronic skin ulcer with fat layer exposed L98.492 [facility] [address] [facility] [id number] [address] [place] [address] Oct, [facility] [address] [id number] [address] [place] [address] Oct, [facility] [address] [id number] [address] [place] [address] Sep, Chronic skin ulcer with fat layer exposed L98.492 and Unsteady gait R26.81 [facility] [address] [id number] [address] [place] [address] Sep, [facility] [address] [id number] [address] [place] [address] Sep, Chronic skin ulcer with fat layer exposed L98.492 [facility] [address] [id number] [address] [place] [address] Aug, Chronic skin ulcer with fat layer exposed L98.492 [facility] [address] [id number] [address] [place] [phone] Aug, [facility] [address] [id number] [address] [place] [phone] Aug, Type 2 diabetes mellitus wit h foot ulcer E11.621 and Chronic skin ulcer with fat layer exposed L98.492 [facility] [address] [id number] [address] [place] [address] Jul, Chronic skin ulcer with fat layer exposed L98.492 [facility] [address] [id number] [address] [place] [id number] Jul, [facility] [address] [id number] [address] [place] [address] Jul, Chronic skin ulcer with fat layer exposed L98.492 [facility] [address] [id number] [address] [place] [address] Jun, Chronic skin ulcer with fat layer exposed L98.492 [facility] [address] [id number] [address] [place] [phone] Jun, [facility] [address] [facility] [id number] [address] [place] [address] Jun, Chronic skin ulcer with fat layer exposed L98.492 [facility] [address] [facility] [id number] [address] [place] [address] May, Chronic skin ulcer with fat layer exposed L98.492 [facility] [address] [facility] [id number] [address] [place] [address] May, [facility] [address] [facility] [id number] [address] [place] [address] May, Chronic skin ulcer with fat layer exposed L98.492 [facility] [address] [facility] [id number] [address] [place] [address] Apr, Chronic skin ulcer with fat layer exposed L98.492 [facility] [address] [facility] [id number] [address] [place] [address] Apr, [address] [place] [address] Apr, [facility] [address] [facility] [id number] [address] [place] [address] Apr, Chronic skin ulcer with fat layer exposed L98.492 [facility] [address] [facility] [id number] [address] [place] [address] Apr, Foot callus L84 and Nonheali ng wound of heel S91.309A [facility] [address] [facility] [id number] [address] [place] [address] Apr, [address] [id number] [address] Mar, [facility] [address] [facility] [id number] [address] [place] [address] Mar, Diabetes mellitus E11.9 and Chronic skin ulcer with fat layer exposed L98.492 [facility] [address] [facility] [id number] [address] [place] [phone] Mar, Chronic skin ulcer with fat layer exposed L98.492 [facility] [address] [id number] [address] [place] [address] Mar, [facility] [address] [id number] [address] [place] [address] February, Chronic skin ulcer with fat layer exposed L98.492 and Encounter for medication monitoring Z51.81 [facility] [address] [id number] [address] [place] [address] February, [facility] [address] [id number] [address] [place] [phone] February, Encounter for medication mon itoring Z51.81 [facility] [address] [id number] [address] [place] [address] February, [facility] [address] [id number] [address] [place] [phone] February, [facility] [address] [id number] [address] [place] [address] February, [facility] [address] [id number] [address] [place] [phone] Jan, Chronic skin ulcer with fat layer exposed L98.492 [facility] [address] [id number] [address] [place] [phone] Jan, [facility] [address] [id number] [address] [place] [address] Dec, [facility] [address] [id number] [address] [place] [address] Dec, Diabetic polyneuropathy asso ciated with type 2 diabetes mellitus E11.42 and PAD (peripheral artery disease) I73.9 [facility] [address] [id number] [address] [place] [address] Dec, Chronic skin ulcer with fat layer exposed L98.492 [facility] [address] [id number] [address] [place] [id number] Dec, [facility] [address] [id number] [address] [place] [address] Nov, [facility] [address] [id number] [address] [place] [address] Nov, Skin ulcer of right foot wit h fat layer exposed L97.512 [facility] [address] [id number] [address] [place] [address] Oct, [facility] [address] [id number] [address] [place] [address] Oct, Skin ulcer of right foot wit h fat layer exposed L97.512 [facility] [address] [id number] [address] [place] [address] Sep, Diabetes mellitus E11.9 [facility] [address] [id number] [address] [place] [phone] Sep, [facility] [address] [id number] [address] [place] [phone] Sep, [facility] [address] [id number] [address] [place] [address] Sep, [facility] [address] [id number] [address] [place] [address] Sep, Type 2 diabetes mellitus wit h foot ulcer E11.621 and Skin ulcer of right foot with fat layer exposed L97.512 [facility] [address] [id number] [address] [place] [address] Sep, Diabetes mellitus E11.9 [facility] [address] [id number] [address] [place] [address] Sep, [facility] [address] [id number] [address] [place] [address] Aug, [facility] [address] [id number] [address] [place] [address] Aug, [facility] [address] [id number] [address] [place] [address] Aug, 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 [facility] [address] [id number] [address] [place] [address] Aug, [facility] [address] [id number] [address] [place] [phone] Aug, [facility] [address] [id number] [address] [place] [address] Aug, Bronchitis J40 [facility] [address] [id number] [address] [place] [phone] Aug, [facility] [address] [id number] [address] [place] [address] Jul, [facility] [address] [id number] [address] [place] [address] Jul, Chronic skin ulcer with fat layer exposed L98.492 [facility] [address] [id number] [address] [place] [address] Jul, 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 [facility] [address] [id number] [address] [place] [phone] Jun, [facility] [address] [id number] [address] [place] [phone] Jun, [facility] [address] [id number] [address] [place] [address] May, [facility] [address] [id number] [address] [place] [address] May, Chronic skin ulcer with fat layer exposed L98.492 [facility] [address] [id number] [address] [place] [address] Apr, [facility] [address] [id number] [address] [place] [address] Apr, Type 2 diabetes mellitus wit h foot ulcer E11.621 and Unsteady gait R26.81 [facility] [address] [id number] [address] [place] [address] Mar, Decubitus ulcer of right mariana l, stage 3 L89.613 [place] [address] [id number] [address] [place] [address] Mar, [place] [address] [id number] [address] [place] [phone] Mar, Pressure ulcer of unspecifie d heel, stage 4 L89.604 and Type 2 diabetes mellitus with foot ulcer E11.621 [place] [address] [id number] [address] [place] [phone] Mar, Encounter for medication mon itoring Z51.81 [place] [address] [facility] [id number] [address] [place] [address] Mar, Type 2 diabetes mellitus wit h foot ulcer E11.621 and Non-pressure chronic ulcer of right heel and midfoot with unspecified severity L97.419 [place] [address] [facility] [id number] [address] [place] [address] February, [place] [address] [facility] [id number] [address] [place] [address] Jan, Right ankle pain M25.571 [place] [address] [facility] [id number] [address] [place] [address] Dec, Right ankle pain M25.571 [place] [address] [id number] [address] [place] [address] Dec, [place] [address] [facility] [id number] [address] [place] [address] Dec, [facility] [address] [id number] [address] [place] [address] Dec, Right ankle pain M25.571 [place] [address] [id number] [address] [place] [address] Dec, Chronic skin ulcer with fat layer exposed L98.492 ; Type 2 diabetes mellitus with diabetic autonomic (poly)neuropathy E11.43 and Hypertension I10 [facility] [address] [facility] [id number] [address] [place] [address] Nov, [facility] [address] [facility] [id number] [address] [place] [address] Nov, [facility] [address] [facility] [id number] [address] [place] [address] Nov, [facility] [address] [facility] [id number] [address] [place] [address] Nov, Right ankle pain M25.571 and Chronic osteomyelitis of right foot with draining sinus M86.471 [facility] [address] [place] [id number] [address] [place] [address] Oct, Right ankle pain M25.571 [facility] [address] [facility] [id number] [address] [place] [address] Oct, [facility] [address] [place] [id number] [address] [place] [address] Sep, Diabetes mellitus E11.9 [facility] [address] [facility] [id number] [address] [place] [address] Sep, Diabetic polyneuropathy asso ciated with type 2 diabetes mellitus E11.42 and Venous insufficiency I87.2 [facility] [address] [place] [id number] [address] [place] [address] Sep, Right ankle pain M25.571 [facility] [address] [place] [id number] [address] [place] [address] Aug, Right ankle pain M25.571 [facility] [address] [facility] [id number] [address] [place] [address] Aug, Chronic osteomyelitis of rig ht foot with draining sinus M86.471 [facility] [address] [id number] [address] [place] [address] Aug, [facility] [address] [id number] [address] [place] [address] Aug, [facility] [address] [facility] [id number] [address] [place] [address] Aug, Chronic osteomyelitis of rig ht foot with draining sinus M86.471 [facility] [address] [id number] [address] [place] [address] Jul, [facility] [address] [id number] [address] [place] [address] Jul, [facility] [address] [facility] [id number] [address] [place] [address] Jul, Chronic kidney disease N18.9 [facility] [address] [facility] [id number] [address] [place] [address] Jul, Right ankle pain M25.571 [facility] [address] [facility] [id number] [address] [place] [address] Jul, Non-healing ulcer of right f oot, unspecified ulcer stage L97.519 [place] [address] [facility] [id number] [address] [place] [address] Jul, Chronic skin ulcer with fat layer exposed L98.492 [place] [address] [facility] [id number] [address] [place] [address] Jul, Deformity of right ankle nitza nt M21.961 [facility] [address] [facility] [id number] [address] [place] [address] Jun, [facility] [address] [facility] [id number] [address] [place] [address] Jun, Diabetes mellitus E11.9 ; Sk in ulcer of right foot with fat layer exposed L97.512 and Encounter for immunization Z23 [facility] [address] [facility] [id number] [address] [place] [address] Jun, Right ankle pain M25.571 [facility] [address] [facility] [id number] [address] [place] [address] May, Right ankle pain M25.571 [facility] [address] [facility] [id number] [address] [place] [address] Apr, Right ankle pain M25.571 [facility] [address] [facility] [id number] [address] [place] [address] Mar, Right ankle pain M25.571 [facility] [address] [id number] [address] [place] [address] Mar, [facility] [address] [facility] [id number] [address] [place] [address] February, Diabetes mellitus E11.9 and Diabetic polyneuropathy associated with type 2 diabetes mellitus E11.42 [facility] [address] [place] [id number] [address] [place] [address] February, Hyperkalemia E87.5 [facility] [address] [facility] [id number] [address] [place] [address] February, Right ankle pain M25.571 [facility] [address] [facility] [id number] [address] [place] [address] Jan, Right ankle pain M25.571 [facility] [address] [facility] [id number] [address] [place] [address] Dec, Right ankle pain M25.571 [facility] [address] [facility] [id number] [address] [place] [address] Dec, Right ankle pain M25.571 [facility] [address] [facility] [id number] [address] [place] [address] Nov, [facility] [address] [facility] [id number] [address] [place] [address] Nov, Diabetes mellitus E11.9 ; Hy pertension I10 ; Gastroparesis K31.84 and Type 2 diabetes mellitus with diabetic autonomic (poly)neuropathy E11.43 [facility] [address] [facility] [id number] [address] [place] [address] Nov, Right ankle pain M25.571 [facility] [address] [facility] [id number] [address] [place] [address] Oct, Right ankle pain M25.571 [facility] [address] [facility] [id number] [address] [place] [address] Oct, [facility] [address] [facility] [id number] [address] [place] [address] Oct, [facility] [address] [place] [id number] [place] [phone] Sep, [place] [address] [place] [id number] [place] [address] Sep, Hypertension I10 [facility] [address] [place] [id number] [place] [address] Sep, Chronic kidney disease N18.9 ; Right ankle pain M25.571 and GERD (gastroesophageal reflux disease) K21.9 [facility] [address] [place] [id number] [address] [place] [address] Jul, [facility] [address] [place] [id number] [address] [place] [address] Jul, Encounter for immunization Z 23 ; Venous insufficiency I87.2 and Diabetic polyneuropathy associated with type 2 diabetes mellitus E11.42 [facility] [address] [facility] [id number] [address] [place] [address] Jul, [facility] [address] [place] [id number] [address] [place] [address] Jul, Diabetes mellitus E11.9 [facility] [address] [facility] [id number] [address] [place] [address] May, [facility] [address] [place] [id number] [address] [place] [phone] Apr, [facility] [address] [id number] [address] [place] [address] Mar, Right ankle pain M25.571 [facility] [address] [id number] [address] [place] [phone] Mar, [facility] [address] [id number] [address] [place] [phone] February, Paresthesias R20.2 [facility] [address] [id number] [address] [place] [id number] February, [facility] [address] [id number] [address] [place] [id number] February, 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 [facility] [address] [id number] [address] [place] [phone] February, Diabetes mellitus E11.9 [facility] [address] [id number] [address] [place] [phone] February, [facility] [address] [id number] [address] [place] [phone] February, Polyneuropathy in diabetes 3 57.2 and Paresthesias R20.2 [facility] [address] [id number] [address] [place] [phone] February, [facility] [address] [id number] [address] [place] [phone] February, [facility] [address] [id number] [address] [place] [id number] February, [facility] [address] [id number] [address] [place] [phone] February, Diabetes mellitus E11.9 [facility] [address] [id number] [address] [place] [id number] February, [facility] [address] [id number] [address] [place] [id number] February, Hyperkalemia E87.5 [facility] [address] [facility] [facility] [id number] [address] [place] [address] Jan, Hypertension I10 [facility] [address] [facility] [id number] [address] [place] [address] Jan, Insomnia G47.00 [facility] [address] [facility] [id number] [address] [place] [address] Jan, [facility] [address] [facility] [id number] [address] [place] [address] Jan, [facility] [address] [facility] [id number] [address] [place] [address] Jan, [facility] [address] [facility] [id number] [address] [place] [address] Dec, Right ankle pain M25.571 [facility] [address] [place] [id number] [address] [place] [id number] Dec, GERD (gastroesophageal reflu x disease) K21.9 [facility] [address] [facility] [id number] [address] [place] [address] Dec, Insomnia G47.00 [facility] [address] [facility] [id number] [address] [place] [address] Dec, Hypertension I10 and Hyperka lemia 276.7 [facility] [address] [facility] [id number] [address] [place] [address] Dec, Chronic kidney disease N18.9 [facility] [address] [facility] [id number] [address] [place] [address] Dec, [facility] [address] [facility] [id number] [address] [place] [address] Dec, Hyperkalemia E87.5 [facility] [address] [facility] [id number] [address] [place] [address] Dec, Chronic kidney disease N18.9 and Right ankle pain M25.571 [facility] [address] [id number] [address] [place] [id number] 11 Nov, 2015 GERD (gastroesophageal reflu x disease) K21.9 [facility] [address] [id number] [address] [place] [address] Nov, Right ankle pain M25.571 [facility] [address] [id number] [address] [place] [address] Nov, Diabetes mellitus E11.9 [facility] [address] [id number] [address] [place] [id number] Oct, [facility] [address] [id number] [address] [place] [address] Oct, [facility] [address] [id number] [address] [place] [address] Oct, [facility] [address] [id number] [address] [place] [address] Oct, Hyperkalemia E87.5 [facility] [address] [id number] [address] [place] [id number] Oct, [facility] [address] [id number] [address] [place] [address] Oct, Hyperkalemia E87.5 [facility] [address] [id number] [address] [place] [id number] Sep, [facility] [address] [id number] [address] [place] [id number] Sep, [facility] [address] [id number] [address] [place] [id number] Sep, [facility] [address] [id number] [address] [place] [id number] Sep, [facility] [address] [id number] [address] [place] [id number] Sep, Right ankle pain M25.571 [facility] [address] [facility] [id number] [address] [place] [address] Aug, Chronic kidney disease N18.9 [facility] [address] [facility] [id number] [address] [place] [address] Aug, [facility] [address] [facility] [id number] [address] [place] [address] Aug, Hyperkalemia E87.5 [facility] [address] [facility] [id number] [address] [place] [phone] Aug, [facility] [address] [facility] [id number] [address] [place] [id number] Jul, [facility] [address] [facility] [id number] [address] [place] [id number] Jul, [facility] [address] [place] [id number] [address] [place] [id number] Jul, [facility] [address] [facility] [id number] [address] [place] [address] Jul, Diabetes mellitus E11.9 ; En counter for immunization Z23 ; Hypertension I10 and Hyperkalemia E87.5 [facility] [address] [facility] [id number] [address] [place] [id number] Jul, [facility] [address] [facility] [id number] [address] [place] [id number] Jul, Hyperkalemia E87.5 [facility] [address] [facility] [id number] [address] [place] [id number] Jul, Hyperkalemia E87.5 [facility] [address] [facility] [id number] [address] [place] [id number] Jun, [facility] [address] [facility] [id number] [address] [place] [id number] Jun, [facility] [address] [facility] [id number] [address] [place] [id number] 15 Jun, 2015 [facility] [address] [id number] [address] [place] [address], [place] [address] Jun, [facility] [address] [id number] [address] [place] [address], [place] [address] May, [facility] [address] [id number] [address] [place] [address], [place] [address] May, [facility] [address] [id number] [address] [place] [address], [place] [address] May, [facility] [address] [id number] [address] [place] [address], [place] [address] May, Hyperkalemia 276.7 [facility] [address] [id number] [address] [place] [address], [place] [address] May, [facility] [address] [id number] [address] [place] [address], [place] [address] Apr, Hyperkalemia 276.7 [facility] [address] [id number] [address] [place] [address], [place] [address] Apr, [facility] [address] [id number] [address] [place] [address], [place] [address] Apr, [facility] [address] [id number] [address] [place] [address], [place] [address] Apr, [facility] [address] [id number] [address] [place] [address], [place] [address] Apr, [facility] [address] [id number] [address] [place] [address], [place] [address] 14 Apr, 2015 Hyperkalemia 276.7 [facility] [address] [id number] [address] [place] [address], [place] [address] Apr, [facility] [address] [id number] [address] [place] [address], [place] [address] Apr, [facility] [address] [id number] [address] [place] [address] [address] Mar, [facility] [address] [id number] [address] [place] [id number] Mar, Hyperkalemia 276.7 [facility] [address] [id number] [address] [place] [address] Mar, Hyperkalemia 276.7 [facility] [address] [id number] [address] [place] [id number] Mar, [facility] [address] [id number] [address] [place] [id number] Mar, [facility] [address] [id number] [address] [place] [id number] Mar, [facility] [address] [id number] [address] [place] [id number] Mar, [facility] [address] [id number] [address] [place] [address] Mar, Anserine bursitis 726.61 [facility] [address] [id number] [address] [place] [address] Mar, Asthma 493.90 and Hyperkalem ia 276.7 [facility] [address] [id number] [address] [place] [id number] Mar, [facility] [address] [id number] [address] [place] [id number] February, [facility] [address] [id number] [address] [place] [address] February, [facility] [address] [id number] [address] [place] [phone] February, [facility] [address] [id number] [address] [place] [id number] February, [facility] [address] [id number] [address] [place] [address] February, [facility] [address] [id number] [address] [place] [address], [place] [address] February, [facility] [address] [id number] [address] [place] [address], [place] [address] February, [facility] [address] [id number] [address] [place] [address], [place] [address] February, [facility] [address] [id number] [address] [place] [address], [place] [address] February, [facility] [address] [id number] [address] [place] [address], [place] [address] Jan, [facility] [address] [id number] [address] [place] [address], [place] [address] Jan, [facility] [address] [id number] [address] [place] [address], [place] [address] Dec, [facility] [address] [id number] [address] [place] [address], [place] [address] Dec, [facility] [address] [id number] [address] [place] [address], [place] [address] Dec, [facility] [address] [id number] [address] [place] [address], [place] [address] Dec, [facility] [address] [id number] [address] [place] [address], [place] [address] Dec, [facility] [address] [id number] [address] [place] [address], [place] [address] Dec, [facility] [address] [id number] [address] [place] [address], [place] [address] Dec, [facility] [address] [id number] [address] [place] [address], [place] [address] Dec, [facility] [address] [id number] [address] [place] [address], [place] [address] Dec, [facility] [address] [id number] [address] [place] [address], [place] [address] Dec, [facility] [address] [id number] [address] [place] [address], [place] [address] Dec, [facility] [address] [id number] [address] [place] [address], [place] [address] Dec, [facility] [address] [id number] [address] [place] [address], [place] [address] Dec, [facility] [address] [id number] [address] [place] [address], [place] [address] Dec, [facility] [address] [id number] [address] [place] [address], [place] [address] Nov, [facility] [address] [id number] [address] [place] [address], [place] [address] Nov, [facility] [address] [id number] [address] [place] [address], [place] [address] Nov, [facility] [address] [id number] [address] [place] [address], [place] [address] Nov, [facility] [address] [id number] [address] [place] [address], [place] [address] Nov, [facility] [address] [id number] [address] [place] [address], [place] [address] Nov, [facility] [address] [id number] [address] [place] [address], [place] [address] Oct, [facility] [address] [id number] [address] [place] [address], [place] [address] Oct, [facility] [address] [id number] [address] [place] [address], [place] [address] Oct, [facility] [address] [id number] [address] [place] [address], [place] [address] Oct, [facility] [address] [id number] [address] [place] [address], [place] [address] Oct, [facility] [address] [id number] [address] [place] [address], [place] [address] Oct, [facility] [address] [id number] [address] [place] [address], [place] [address] Sep, [facility] [address] [id number] [address] [place] [address], [place] [address] Sep, [facility] [address] [id number] [address] [place] [address], [place] [address] Sep, [facility] [address] [id number] [address] [place] [address], [place] [address] Sep, [facility] [address] [id number] [address] [place] [address], [place] [address] Sep, [facility] [address] [id number] [address] [place] [address], [place] [address] Sep, [facility] [address] [id number] [address] [place] [address], [place] [address] Aug, [facility] [address] [id number] [address] [place] [address], [place] [address] Aug, [facility] [address] [id number] [address] [place] [address], [place] [address] Aug, [facility] [address] [id number] [address] [place] [address], [place] [address] Aug, [facility] [address] [id number] [address] [place] [address], [place] [address] Aug, [facility] [address] [id number] [address] [place] [address], [place] [address] Aug, [facility] [address] [id number] [address] [place] [address], [place] [address] Jul, [facility] [address] [id number] [address] [place] [address], [place] [address] Jul, [facility] [address] [id number] [address] [place] [address], [place] [address] Jul, [facility] [address] [id number] [address] [place] [address], [place] [address] Jul, [facility] [address] [id number] [address] [place] [address], [place] [address] Jul, [facility] [address] [id number] [address] [place] [address], [place] [address] Jul, [facility] [address] [id number] [address] [place] [address], [place] [address] Jul, [facility] [address] [id number] [address] [place] [address], [place] [address] Jul, [facility] [address] [id number] [address] [place] [address], [place] [address] Jul, [facility] [address] [id number] [address] [place] [address], [place] [address] Jul, [facility] [address] [id number] [address] [place] [address], [place] [address] Jul, [facility] [address] [id number] [address] [place] [address], [place] [address] Jun, [facility] [address] [id number] [address] [place] [address], [place] [address] Jun, [facility] [address] [id number] [address] [place] [address], [place] [address] Jun, [facility] [address] [id number] [address] [place] [address], [place] [address] Jun, [facility] [address] [id number] [address] [place] [address], [place] [address] Apr, [facility] [address] [id number] [address] [place] [address], [place] [address] Apr, [facility] [address] [id number] [address] [place] [address], [place] [address] Apr, [facility] [address] [id number] [address] [place] [address] Apr, [facility] [address] [id number] [address] [place] [address] Mar, [facility] [address] [id number] [address] [place] [address] Mar, [facility] [address] [id number] [address] [place] [address] Mar, [facility] [address] [id number] [address] [place] [address] Mar, [facility] [address] [id number] [address] [place] [address] Mar, [facility] [address] [id number] [address] [place] [address] Sep, [facility] [address] [id number] [address] [place] [address] Sep, [facility] [address] [id number] [address] [place] [address] Aug, IMMUNIZATIONS No Known Immunizations SOCIAL HISTORY [...] V C oct 2016 Hospitalization History Pneumonia [place] PRITI veras 06/2018 Hospitalization History fistula in left arm 07/2018
--- OUTSIDE RECORDS SUMMARY | 2020-04-01 19:25 | XMS REPORT ---
Author Author Josephine WILLIS Organization [facility] Address [address] [place] [address] Care Team Providers [facility] General Manager Name Role Phone OLYA WILLIS Unavailable PROBLEMS Type Condition ICD9-CM Code BRU43-XI Code Onset Dates Condition S tatus SNOMED Code Problem Diabetes mellitus E11.9 Active 73 231226 Problem Hypertension I10 Active 1931566 3 Problem Paresthesias R20.2 Active 0525829 4 Problem Chronic kidney disease N18.9 Active 801404329 Problem Venous insufficiency I87.2 Active 76443630 Problem Diabetic polyneuropathy associated with type 2 d iabetes mellitus E11.42 Active 06620715 Problem Type 2 diabetes mellitus with diabetic autonomic (poly)neuropathy E11.43 Active 605499773 Problem Chronic skin ulcer with fat layer exposed L98.492 Active 80177355 Problem Chronic osteomyelitis of right foot with draining sinus M86.471 Active 550763802805424 Problem PAD (peripheral artery disease) I73.9 Active 899830716 Problem Gastroparesis K31.84 Active 595489 006 Problem Seasonal allergic rhinitis due to other allergic trigger J30.89 Active 637767185 Problem GERD (gastroesophageal reflux disease) K21.9 Active 341607772 Problem Type 2 diabetes mellitus with foot ulcer E11.621 Active 92235953306915 Problem 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 Active 275218945 Problem Pressure ulcer of unspecified heel, stage 4 L89.60 4 Active 790592815 Problem Unsteady gait R26.81 Active 188648 08 ALLERGIES No Information ENCOUNTERS Encounter Location Date Diagnosis [facility] [address] [facility] [id number] [address] [place] [id number] Jan, [facility] [address] [facility] [id number] [address] [place] [phone] Jan, [facility] [address] [id number] [address] [place] [phone] Jan, Chronic skin ulcer with fat layer exposed L98.492 [facility] [address] [id number] [address] [place] [id number] Dec, [facility] [address] [id number] [address] [place] [id number] Dec, [facility] [address] [id number] [address] [place] [id number] Dec, Chronic skin ulcer with fat layer exposed L98.492 [facility] [address] [id number] [address] [place] [id number] Dec, [facility] [address] [facility] [id number] [address] [place] [id number] Dec, Unsteady gait R26.81 [facility] [address] [facility] [id number] [address] [place] [id number] Dec, Chronic skin ulcer with fat layer exposed L98.492 ; PAD (peripheral artery disease) I73.9 ; Unsteady gait R26.81 and Weakness of both lower extremities R29.898 [facility] [address] [id number] [address] [place] [id number] Nov, [facility] [address] [id number] [address] [place] [phone] Nov, [facility] [address] [facility] [id number] [address] [place] [phone] Nov, [facility] [address] [facility] [id number] [address] [place] [id number] Nov, Chronic skin ulcer with fat layer exposed L98.492 [facility] [address] [facility] [id number] [address] [place] [id number] Oct, Chronic skin ulcer with fat layer exposed L98.492 [facility] [address] [facility] [id number] [address] [place] [phone] Oct, [facility] [address] [id number] [address] [place] [id number] Oct, [facility] [address] [id number] [address] [place] [id number] Sep, Chronic skin ulcer with fat layer exposed L98.492 and Unsteady gait R26.81 [facility] [place] [address] [id number] [address] [place] [id number] Sep, [facility] [address] [id number] [address] [place] [id number] Sep, Chronic skin ulcer with fat layer exposed L98.492 [facility] [address] [id number] [address] [place] [id number] Aug, Chronic skin ulcer with fat layer exposed L98.492 [facility] [address] [id number] [address] [place] [id number] Aug, [facility] [address] [id number] [address] [place] [id number] Aug, Type 2 diabetes mellitus wit h foot ulcer E11.621 and Chronic skin ulcer with fat layer exposed L98.492 [facility] [address] [id number] [address] [place] [id number] Jul, Chronic skin ulcer with fat layer exposed L98.492 [facility] [address] [id number] [address] [place] [id number] Jul, [facility] [address] [id number] [address] [place] [id number] Jul, Chronic skin ulcer with fat layer exposed L98.492 [facility] [address] [id number] [address] [place] [id number] Jun, Chronic skin ulcer with fat layer exposed L98.492 [facility] [address] [id number] [address] [place] [id number] Jun, [facility] [address] [facility] [id number] [address] [place] [phone] Jun, Chronic skin ulcer with fat layer exposed L98.492 [facility] [address] [facility] [id number] [address] [place] [id number] May, Chronic skin ulcer with fat layer exposed L98.492 [facility] [address] [facility] [id number] [address] [place] [id number] May, [facility] [address] [facility] [id number] [address] [place] [id number] May, Chronic skin ulcer with fat layer exposed L98.492 [facility] [address] [facility] [id number] [address] [place] [id number] Apr, Chronic skin ulcer with fat layer exposed L98.492 [facility] [address] [facility] [id number] [address] [place] [phone] Apr, [address] [id number] [address] Apr, [facility] [address] [facility] [id number] [address] [place] [id number] Apr, Chronic skin ulcer with fat layer exposed L98.492 [facility] [address] [facility] [id number] [address] [place] [id number] Apr, Foot callus L84 and Nonheali ng wound of heel S91.309A [facility] [address] [facility] [id number] [address] [place] [id number] Apr, [address] [id number] [address] Mar, [facility] [address] [facility] [id number] [address] [place] [phone] Mar, Diabetes mellitus E11.9 and Chronic skin ulcer with fat layer exposed L98.492 [facility] [address] [facility] [id number] [address] [place] [id number] Mar, Chronic skin ulcer with fat layer exposed L98.492 [facility] [address] [id number] [address] [place] [phone] Mar, [facility] [address] [id number] [address] [place] [id number] February, Chronic skin ulcer with fat layer exposed L98.492 and Encounter for medication monitoring Z51.81 [facility] [address] [id number] [address] [place] [phone] February, [facility] [address] [id number] [address] [place] [id number] February, Encounter for medication mon itoring Z51.81 [facility] [address] [id number] [address] [place] [id number] February, [facility] [address] [id number] [address] [place] [id number] February, [facility] [address] [id number] [address] [place] [id number] February, [facility] [address] [id number] [address] [place] [id number] Jan, Chronic skin ulcer with fat layer exposed L98.492 [facility] [address] [id number] [address] [place] [id number] Jan, [facility] [address] [id number] [address] [place] [phone] Dec, [facility] [address] [id number] [address] [place] [id number] Dec, Diabetic polyneuropathy asso ciated with type 2 diabetes mellitus E11.42 and PAD (peripheral artery disease) I73.9 [facility] [address] [id number] [address] [place] [id number] Dec, Chronic skin ulcer with fat layer exposed L98.492 [facility] [address] [id number] [address] [place] [id number] Dec, [facility] [address] [id number] [address] [place] [phone] Nov, [facility] [address] [id number] [address] [place] [id number] Nov, Skin ulcer of right foot wit h fat layer exposed L97.512 [facility] [address] [id number] [address] [place] [id number] Oct, [facility] [address] [id number] [address] [place] [id number] Oct, Skin ulcer of right foot wit h fat layer exposed L97.512 [facility] [address] [id number] [address] [place] [id number] Sep, Diabetes mellitus E11.9 [facility] [address] [id number] [address] [place] [id number] Sep, [facility] [address] [id number] [address] [place] [phone] Sep, [facility] [address] [id number] [address] [place] [id number] Sep, [facility] [address] [id number] [address] [place] [id number] Sep, Type 2 diabetes mellitus wit h foot ulcer E11.621 and Skin ulcer of right foot with fat layer exposed L97.512 [facility] [address] [id number] [address] [place] [id number] Sep, Diabetes mellitus E11.9 [facility] [address] [id number] [address] [place] [id number] Sep, [facility] [address] [id number] [address] [place] [phone] Aug, [facility] [address] [id number] [address] [place] [phone] Aug, [facility] [address] [id number] [address] [place] [id number] Aug, 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 [facility] [address] [id number] [address] [place] [id number] Aug, [facility] [address] [id number] [address] [place] [id number] Aug, [facility] [address] [id number] [address] [place] [id number] Aug, Bronchitis J40 [facility] [address] [id number] [address] [place] [phone] Aug, [facility] [address] [id number] [address] [place] [id number] Jul, [facility] [address] [id number] [address] [place] [id number] Jul, Chronic skin ulcer with fat layer exposed L98.492 [facility] [address] [id number] [address] [place] [phone] Jul, 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 [facility] [address] [id number] [address] [place] [id number] Jun, [facility] [address] [id number] [address] [place] [phone] Jun, [facility] [address] [id number] [address] [place] [id number] May, [facility] [address] [id number] [address] [place] [id number] May, Chronic skin ulcer with fat layer exposed L98.492 [facility] [address] [id number] [address] [place] [id number] Apr, [facility] [address] [id number] [address] [place] [id number] Apr, Type 2 diabetes mellitus wit h foot ulcer E11.621 and Unsteady gait R26.81 [facility] [address] [id number] [address] [place] [id number] Mar, Decubitus ulcer of right mariana l, stage 3 L89.613 [place] [address] [id number] [address] [place] [phone] Mar, [place] [address] [id number] [address] [place] [id number] Mar, Pressure ulcer of unspecifie d heel, stage 4 L89.604 and Type 2 diabetes mellitus with foot ulcer E11.621 [place] [address] [id number] [address] [place] [id number] Mar, Encounter for medication mon itoring Z51.81 [facility] [address] [facility] [id number] [address] [place] [id number] Mar, Type 2 diabetes mellitus wit h foot ulcer E11.621 and Non-pressure chronic ulcer of right heel and midfoot with unspecified severity L97.419 [place] [address] [facility] [id number] [address] [place] [id number] February, [place] [address] [facility] [id number] [address] [place] [phone] Jan, Right ankle pain M25.571 [place] [address] [facility] [id number] [address] [place] [id number] Dec, Right ankle pain M25.571 [place] [address] [id number] [address] [place] [id number] Dec, [place] [address] [facility] [id number] [address] [place] [id number] Dec, [facility] [address] [id number] [address] [place] [id number] Dec, Right ankle pain M25.571 [place] [address] [id number] [address] [place] [id number] Dec, Chronic skin ulcer with fat layer exposed L98.492 ; Type 2 diabetes mellitus with diabetic autonomic (poly)neuropathy E11.43 and Hypertension I10 [facility] [address] [facility] [id number] [address] [place] [id number] Nov, [facility] [address] [facility] [id number] [address] [place] [phone] Nov, [facility] [address] [facility] [id number] [address] [place] [phone] Nov, [facility] [address] [facility] [id number] [address] [place] [id number] Nov, Right ankle pain M25.571 and Chronic osteomyelitis of right foot with draining sinus M86.471 [facility] [address] [place] [id number] [address] [place] [id number] Oct, Right ankle pain M25.571 [facility] [address] [facility] [id number] [address] [place] [id number] Oct, [facility] [address] [place] [id number] [address] [place] [id number] Sep, Diabetes mellitus E11.9 [facility] [address] [facility] [id number] [address] [place] [id number] Sep, Diabetic polyneuropathy asso ciated with type 2 diabetes mellitus E11.42 and Venous insufficiency I87.2 [facility] [address] [place] [id number] [address] [place] [id number] Sep, Right ankle pain M25.571 [facility] [address] [place] [id number] [address] [place] [id number] Aug, Right ankle pain M25.571 [facility] [address] [facility] [id number] [address] [place] [address] Aug, Chronic osteomyelitis of rig ht foot with draining sinus M86.471 [facility] [address] [id number] [address] [place] [id number] Aug, [facility] [address] [id number] [address] [place] [phone] Aug, [facility] [address] [facility] [id number] [address] [place] [id number] Aug, Chronic osteomyelitis of rig ht foot with draining sinus M86.471 [facility] [address] [id number] [address] [place] [id number] Jul, [facility] [address] [id number] [address] [place] [id number] Jul, [facility] [address] [facility] [id number] [address] [place] [id number] Jul, Chronic kidney disease N18.9 [facility] [address] [facility] [id number] [address] [place] [id number] Jul, Right ankle pain M25.571 [facility] [address] [facility] [id number] [address] [place] [id number] Jul, Non-healing ulcer of right f oot, unspecified ulcer stage L97.519 [place] [address] [facility] [id number] [address] [place] [id number] Jul, Chronic skin ulcer with fat layer exposed L98.492 [place] [address] [facility] [id number] [address] [place] [address] Jul, Deformity of right ankle nitza nt M21.961 [facility] [address] [facility] [id number] [address] [place] [phone] Jun, [facility] [address] [facility] [id number] [address] [place] [address] Jun, Diabetes mellitus E11.9 ; Sk in ulcer of right foot with fat layer exposed L97.512 and Encounter for immunization Z23 [facility] [address] [facility] [id number] [address] [place] [address] Jun, Right ankle pain M25.571 [facility] [address] [facility] [id number] [address] [place] [phone] May, Right ankle pain M25.571 [facility] [address] [facility] [id number] [address] [place] [id number] Apr, Right ankle pain M25.571 [facility] [address] [facility] [id number] [address] [place] [address] Mar, Right ankle pain M25.571 [facility] [address] [id number] [address] [place] [phone] Mar, [facility] [address] [facility] [id number] [address] [place] [id number] February, Diabetes mellitus E11.9 and Diabetic polyneuropathy associated with type 2 diabetes mellitus E11.42 [facility] [address] [place] [id number] [address] [place] [id number] February, Hyperkalemia E87.5 [facility] [address] [facility] [id number] [address] [place] [id number] February, Right ankle pain M25.571 [facility] [address] [facility] [id number] [address] [place] [id number] Jan, Right ankle pain M25.571 [facility] [address] [facility] [id number] [address] [place] [phone] Dec, Right ankle pain M25.571 [facility] [address] [facility] [id number] [address] [place] [id number] Dec, Right ankle pain M25.571 [facility] [address] [facility] [id number] [address] [place] [id number] Nov, [facility] [address] [facility] [id number] [address] [place] [address] Nov, Diabetes mellitus E11.9 ; Hy pertension I10 ; Gastroparesis K31.84 and Type 2 diabetes mellitus with diabetic autonomic (poly)neuropathy E11.43 [facility] [address] [facility] [id number] [address] [place] [id number] Nov, Right ankle pain M25.571 [facility] [address] [facility] [id number] [address] [place] [id number] Oct, Right ankle pain M25.571 [facility] [address] [facility] [id number] [address] [place] [phone] Oct, [facility] [address] [facility] [id number] [address] [place] [phone] Oct, [facility] [address] [place] [id number] [place] [phone] Sep, [place] [address] [place] [id number] [place] [phone] Sep, Hypertension I10 [facility] [address] [place] [id number] [place] [phone] Sep, Chronic kidney disease N18.9 ; Right ankle pain M25.571 and GERD (gastroesophageal reflux disease) K21.9 [facility] [address] [place] [id number] [address] [place] [phone] Jul, [facility] [address] [place] [id number] [place] [phone] Jul, Encounter for immunization Z 23 ; Venous insufficiency I87.2 and Diabetic polyneuropathy associated with type 2 diabetes mellitus E11.42 [facility] [address] [facility] [id number] [address] [place] [phone] Jul, [facility] [address] [place] [id number] [address] [place] [phone] Jul, Diabetes mellitus E11.9 [facility] [address] [facility] [id number] [address] [place] [phone] May, [facility] [address] [place] [id number] [address] [place] [phone] Apr, [facility] [address] [id number] [address] [place] [phone] Mar, Right ankle pain M25.571 [facility] [address] [id number] [address] [place] [phone] Mar, [facility] [address] [id number] [address] [place] [id number] February, Paresthesias R20.2 [facility] [address] [id number] [address] [place] [id number] February, [facility] [address] [id number] [address] [place] [id number] February, 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 [facility] [address] [id number] [address] [place] [id number] February, Diabetes mellitus E11.9 [facility] [address] [id number] [address] [place] [id number] February, [facility] [address] [id number] [address] [place] [id number] February, Polyneuropathy in diabetes 3 57.2 and Paresthesias R20.2 [facility] [address] [id number] [address] [place] [id number] February, [facility] [address] [id number] [address] [place] [id number] February, [facility] [address] [id number] [address] [place] [phone] February, [facility] [address] [id number] [address] [place] [id number] February, Diabetes mellitus E11.9 [facility] [address] [id number] [address] [place] [id number] February, [facility] [address] [id number] [address] [place] [id number] February, Hyperkalemia E87.5 [facility] [address] [facility] [id number] [address] [place] [phone] Jan, Hypertension I10 [facility] [address] [facility] [id number] [address] [place] [id number] Jan, Insomnia G47.00 [facility] [address] [facility] [id number] [address] [place] [id number] Jan, [facility] [address] [facility] [id number] [address] [place] [phone] Jan, [facility] [address] [facility] [id number] [address] [place] [id number] Jan, [facility] [address] [facility] [id number] [address] [place] [address] Dec, Right ankle pain M25.571 [facility] [address] [id number] [address] [place] [id number] Dec, GERD (gastroesophageal reflu x disease) K21.9 [facility] [address] [facility] [id number] [address] [place] [address] Dec, Insomnia G47.00 [facility] [address] [facility] [id number] [address] [place] [phone] Dec, Hypertension I10 and Hyperka lemia 276.7 [facility] [address] [facility] [id number] [address] [place] [address] Dec, Chronic kidney disease N18.9 [facility] [address] [facility] [id number] [address] [place] [id number] Dec, [facility] [address] [facility] [id number] [address] [place] [id number] Dec, Hyperkalemia E87.5 [facility] [address] [facility] [id number] [address] [place] [id number] Dec, Chronic kidney disease N18.9 and Right ankle pain M25.571 [facility] [address] [id number] [address] [place] [id number] 11 Nov, 2015 GERD (gastroesophageal reflu x disease) K21.9 [facility] [address] [id number] [address] [place] [id number] Nov, Right ankle pain M25.571 [facility] [address] [id number] [address] [place] [id number] Nov, Diabetes mellitus E11.9 [facility] [address] [id number] [address] [place] [id number] Oct, [facility] [address] [id number] [address] [place] [id number] Oct, [facility] [address] [id number] [address] [place] [id number] Oct, [facility] [address] [id number] [address] [place] [id number] Oct, Hyperkalemia E87.5 [facility] [address] [id number] [address] [place] [id number] Oct, [facility] [address] [id number] [address] [place] [id number] Oct, Hyperkalemia E87.5 [facility] [address] [id number] [address] [place] [phone] Sep, [facility] [address] [id number] [address] [place] [id number] Sep, [facility] [address] [id number] [address] [place] [id number] Sep, [facility] [address] [id number] [address] [place] [id number] Sep, [facility] [address] [id number] [address] [place] [id number] Sep, Right ankle pain M25.571 [facility] [address] [facility] [id number] [address] [place] [id number] Aug, Chronic kidney disease N18.9 [facility] [address] [facility] [id number] [address] [place] [id number] Aug, [facility] [address] [facility] [id number] [address] [place] [phone] Aug, Hyperkalemia E87.5 [facility] [address] [facility] [id number] [address] [place] [id number] Aug, [facility] [address] [facility] [id number] [address] [place] [phone] Jul, [facility] [address] [facility] [id number] [address] [place] [id number] Jul, [facility] [address] [id number] [address] [place] [id number] Jul, [facility] [address] [facility] [id number] [address] [place] [id number] Jul, Diabetes mellitus E11.9 ; En counter for immunization Z23 ; Hypertension I10 and Hyperkalemia E87.5 [facility] [address] [facility] [id number] [address] [place] [phone] Jul, [facility] [address] [facility] [id number] [address] [place] [id number] Jul, Hyperkalemia E87.5 [facility] [address] [facility] [id number] [address] [place] [id number] Jul, Hyperkalemia E87.5 [facility] [address] [facility] [id number] [address] [place] [id number] Jun, [facility] [address] [facility] [id number] [address] [place] [phone] Jun, [facility] [address] [facility] [id number] [address] [place] [id number] 15 Jun, 2015 [facility] [address] [id number] [address] [place] [address], [place] [address] Jun, [facility] [address] [id number] [address] [place] [address], [place] [address] May, [facility] [address] [id number] [address] [place] [address], [place] [address] May, [facility] [address] [id number] [address] [place] [address], [place] [address] May, [facility] [address] [id number] [address] [place] [address], [place] [address] May, Hyperkalemia 276.7 [facility] [address] [id number] [address] [place] [address], [place] [address] May, [facility] [address] [id number] [address] [place] [address], [place] [address] Apr, Hyperkalemia 276.7 [facility] [address] [id number] [address] [place] [address], [place] [address] Apr, [facility] [address] [id number] [address] [place] [address], [place] [address] Apr, [facility] [address] [id number] [address] [place] [address], [place] [address] Apr, [facility] [address] [id number] [address] [place] [address], [place] [address] Apr, [facility] [address] [id number] [address] [place] [address], [place] [address] 14 Apr, 2015 Hyperkalemia 276.7 [facility] [address] [id number] [address] [place] [address], [place] [address] Apr, [facility] [address] [id number] [address] [place] [address], [place] [address] Apr, [facility] [address] [id number] [address] [place] [address] [address] Mar, [facility] [address] [id number] [address] [place] [id number] Mar, Hyperkalemia 276.7 [facility] [address] [id number] [address] [place] [id number] Mar, Hyperkalemia 276.7 [facility] [address] [id number] [address] [place] [id number] Mar, [facility] [address] [id number] [address] [place] [id number] Mar, [facility] [address] [id number] [address] [place] [phone] Mar, [facility] [address] [id number] [address] [place] [id number] Mar, [facility] [address] [id number] [address] [place] [id number] Mar, Anserine bursitis 726.61 [facility] [address] [id number] [address] [place] [id number] Mar, Asthma 493.90 and Hyperkalem ia 276.7 [facility] [address] [id number] [address] [place] [id number] Mar, [facility] [address] [id number] [address] [place] [id number] February, [facility] [address] [id number] [address] [place] [id number] February, [facility] [address] [id number] [address] [place] [id number] February, [facility] [address] [id number] [address] [place] [id number] February, [facility] [address] [id number] [address] [place] [id number] February, [facility] [address] [id number] [address] [place] [address], [place] [address] February, [facility] [address] [id number] [address] [place] [address], [place] [address] February, [facility] [address] [id number] [address] [place] [address], [place] [address] February, [facility] [address] [id number] [address] [place] [address], [place] [address] February, [facility] [address] [id number] [address] [place] [address], [place] [address] Jan, [facility] [address] [id number] [address] [place] [address], [place] [address] Jan, [facility] [address] [id number] [address] [place] [address], [place] [address] Dec, [facility] [address] [id number] [address] [place] [address], [place] [address] Dec, [facility] [address] [id number] [address] [place] [address], [place] [address] Dec, [facility] [address] [id number] [address] [place] [address], [place] [address] Dec, [facility] [address] [id number] [address] [place] [address], [place] [address] Dec, [facility] [address] [id number] [address] [place] [address], [place] [address] Dec, [facility] [address] [id number] [address] [place] [address], [place] [address] Dec, [facility] [address] [id number] [address] [place] [address], [place] [address] Dec, [facility] [address] [id number] [address] [place] [address], [place] [address] Dec, [facility] [address] [id number] [address] [place] [address], [place] [address] Dec, [facility] [address] [id number] [address] [place] [address], [place] [address] Dec, [facility] [address] [id number] [address] [place] [address], [place] [address] Dec, [facility] [address] [id number] [address] [place] [address], [place] [address] Dec, [facility] [address] [id number] [address] [place] [address], [place] [address] Dec, [facility] [address] [id number] [address] [place] [address], [place] [address] Nov, [facility] [address] [id number] [address] [place] [address], [place] [address] Nov, [facility] [address] [id number] [address] [place] [address], [place] [address] Nov, [facility] [address] [id number] [address] [place] [address], [place] [address] Nov, [facility] [address] [id number] [address] [place] [address], [place] [address] Nov, [facility] [address] [id number] [address] [place] [address], [place] [address] Nov, [facility] [address] [id number] [address] [place] [address], [place] [address] Oct, [facility] [address] [id number] [address] [place] [address], [place] [address] Oct, [facility] [address] [id number] [address] [place] [address], [place] [address] Oct, [facility] [address] [id number] [address] [place] [address], [place] [address] Oct, [facility] [address] [id number] [address] [place] [address], [place] [address] Oct, [facility] [address] [id number] [address] [place] [address], [place] [address] Oct, [facility] [address] [id number] [address] [place] [address], [place] [address] Sep, [facility] [address] [id number] [address] [place] [address], [place] [address] Sep, [facility] [address] [id number] [address] [place] [address], [place] [address] Sep, [facility] [address] [id number] [address] [place] [address], [place] [address] Sep, [facility] [address] [id number] [address] [place] [address], [place] [address] Sep, [facility] [address] [id number] [address] [place] [address], [place] [address] Sep, [facility] [address] [id number] [address] [place] [address], [place] [address] Aug, [facility] [address] [id number] [address] [place] [address], [place] [address] Aug, [facility] [address] [id number] [address] [place] [address], [place] [address] Aug, [facility] [address] [id number] [address] [place] [address], [place] [address] Aug, [facility] [address] [id number] [address] [place] [address], [place] [address] Aug, [facility] [address] [id number] [address] [place] [address], [place] [address] Aug, [facility] [address] [id number] [address] [place] [address], [place] [address] Jul, [facility] [address] [id number] [address] [place] [address], [place] [address] Jul, [facility] [address] [id number] [address] [place] [address], [place] [address] Jul, [facility] [address] [id number] [address] [place] [address], [place] [address] Jul, [facility] [address] [id number] [address] [place] [address], [place] [address] Jul, [facility] [address] [id number] [address] [place] [address], [place] [address] Jul, [facility] [address] [id number] [address] [place] [address], [place] [address] Jul, [facility] [address] [id number] [address] [place] [address], [place] [address] Jul, [facility] [address] [id number] [address] [place] [address], [place] [address] Jul, [facility] [address] [id number] [address] [place] [address], [place] [address] Jul, [facility] [address] [id number] [address] [place] [address], [place] [address] Jul, [facility] [address] [id number] [address] [place] [address], [place] [address] Jun, [facility] [address] [id number] [address] [place] [address], [place] [address] Jun, [facility] [address] [id number] [address] [place] [address], [place] [address] Jun, [facility] [address] [id number] [address] [place] [address], [place] [address] Jun, [facility] [address] [id number] [address] [place] [address], [place] [address] Apr, [facility] [address] [id number] [address] [place] [address], [place] [address] Apr, [facility] [address] [id number] [address] [place] [address], [place] [address] Apr, [facility] [address] [id number] [address] [place] [address] Apr, [facility] [address] [id number] [address] [place] [address] Mar, [facility] [address] [id number] [address] [place] [address] Mar, [facility] [address] [id number] [address] [place] [address] Mar, [facility] [address] [id number] [address] [place] [address] Mar, [facility] [address] [id number] [address] [place] [address] Mar, [facility] [address] [id number] [address] [place] [address] Sep, [facility] [address] [id number] [address] [place] [address] Sep, [facility] [address] [id number] [address] [place] [address] Aug, IMMUNIZATIONS No Known Immunizations SOCIAL HISTORY [...] V C oct 2016 Hospitalization History Pneumonia [place] [facility] 06/2018 Hospitalization History fistula in left arm 07/2018
--- OUTSIDE RECORDS SUMMARY | 2020-04-01 19:25 | XMS REPORT ---
Author Author Josephine Veras Doctor Organization [facility] Address Unknown Phone Unavailable Care Team Providers Care Epoxy Specialist Name Role Phone Migration, Doctor Unavailable Unavailable PROBLEMS Type Condition ICD9-CM Code NIZ39-CR Code Onset Dates Condition S tatus SNOMED Code Problem Diabetes mellitus E11.9 Active 73 415812 Problem Hypertension I10 Active 4276031 3 Problem Paresthesias R20.2 Active 7938177 4 Problem Chronic kidney disease N18.9 Active 607375800 Problem Venous insufficiency I87.2 Active 88464067 Problem Diabetic polyneuropathy associated with type 2 d iabetes mellitus E11.42 Active 26324981 Problem Type 2 diabetes mellitus with diabetic autonomic (poly)neuropathy E11.43 Active 898161987 Problem Chronic skin ulcer with fat layer exposed L98.492 Active 19877476 Problem Chronic osteomyelitis of right foot with draining sinus M86.471 Active [id number] Problem PAD (peripheral artery disease) I73.9 Active 032577272 Problem Gastroparesis K31.84 Active 859661 006 Problem Seasonal allergic rhinitis due to other allergic trigger J30.89 Active 642420882 Problem GERD (gastroesophageal reflux disease) K21.9 Active 614575515 Problem Type 2 diabetes mellitus with foot ulcer E11.621 Active 70138313388931 Problem 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 Active 815717445 Problem Pressure ulcer of unspecified heel, stage 4 L89.60 4 Active 926926480 Problem Unsteady gait R26.81 Active 568779 08 ALLERGIES No Information ENCOUNTERS Encounter Location Date Diagnosis [facility] [address] [facility] [id number] [address] [place] [address] Jan, [facility] [address] [facility] [id number] [address] [place] [address] Jan, [facility] [address] [facility] [id number] [address] [place] [address] Jan, Chronic skin ulcer with fat layer exposed L98.492 [facility] [address] [id number] [address] [place] [address] Dec, [facility] [address] [id number] [address] [place] [address] Dec, [facility] [address] [id number] [address] [place] [address] Dec, Chronic skin ulcer with fat layer exposed L98.492 [facility] [address] [id number] [address] [place] [address] Dec, [facility] [address] [id number] [address] [place] [address] Dec, Unsteady gait R26.81 [facility] [address] [facility] [id number] [address] [place] [address] Dec, Chronic skin ulcer with fat layer exposed L98.492 ; PAD (peripheral artery disease) I73.9 ; Unsteady gait R26.81 and Weakness of both lower extremities R29.898 [facility] [address] [id number] [address] [place] [address] Nov, [facility] [address] [id number] [address] [place] [address] Nov, [facility] [address] [id number] [address] [place] [address] Nov, [facility] [address] [id number] [address] [place] [address] Nov, Chronic skin ulcer with fat layer exposed L98.492 [facility] [address] [id number] [address] [place] [address] Oct, Chronic skin ulcer with fat layer exposed L98.492 [facility] [address] [facility] [id number] [address] [place] [id number] Oct, [facility] [address] [facility] [id number] [address] [place] [address] Oct, [facility] [address] [id number] [address] [place] [address] Sep, Chronic skin ulcer with fat layer exposed L98.492 and Unsteady gait R26.81 [facility] [address] [id number] [address] [place] [address] Sep, [facility] [address] [id number] [address] [place] [address] Sep, Chronic skin ulcer with fat layer exposed L98.492 [facility] [address] [id number] [address] [place] [address] Aug, Chronic skin ulcer with fat layer exposed L98.492 [facility] [address] [id number] [address] [place] [address] Aug, [facility] [address] [id number] [address] [place] [address] Aug, Type 2 diabetes mellitus wit h foot ulcer E11.621 and Chronic skin ulcer with fat layer exposed L98.492 [facility] [address] [id number] [address] [place] [address] Jul, Chronic skin ulcer with fat layer exposed L98.492 [facility] [address] [id number] [address] [place] [address] Jul, [facility] [address] [id number] [address] [place] [address] Jul, Chronic skin ulcer with fat layer exposed L98.492 [facility] [address] [id number] [address] [place] [address] Jun, Chronic skin ulcer with fat layer exposed L98.492 [facility] [address] [id number] [address] [place] [address] Jun, [facility] [address] [id number] [address] [place] [address] Jun, Chronic skin ulcer with fat layer exposed L98.492 [facility] [address] [id number] [address] [place] [address] May, Chronic skin ulcer with fat layer exposed L98.492 [facility] [address] [id number] [address] [place] [address] May, [facility] [address] [id number] [address] [place] [address] May, Chronic skin ulcer with fat layer exposed L98.492 [facility] [address] [id number] [address] [place] [address] Apr, Chronic skin ulcer with fat layer exposed L98.492 [facility] [address] [id number] [address] [place] [address] Apr, [address] [place] [address] Apr, [facility] [address] [facility] [id number] [address] [place] [address] Apr, Chronic skin ulcer with fat layer exposed L98.492 [facility] [address] [facility] [id number] [address] [place] [address] Apr, Foot callus L84 and Nonheali ng wound of heel S91.309A [facility] [address] [facility] [id number] [address] [place] [address] Apr, [address] [id number] [address] Mar, [facility] [address] [facility] [id number] [address] [place] [address] Mar, Diabetes mellitus E11.9 and Chronic skin ulcer with fat layer exposed L98.492 [facility] [address] [id number] [address] [place] [address] Mar, Chronic skin ulcer with fat layer exposed L98.492 [facility] [address] [facility] [id number] [address] [place] [address] Mar, [facility] [address] [id number] [address] [place] [address] February, Chronic skin ulcer with fat layer exposed L98.492 and Encounter for medication monitoring Z51.81 [facility] [address] [id number] [address] [place] [address] February, [facility] [address] [id number] [address] [place] [address] February, Encounter for medication mon itoring Z51.81 [facility] [address] [id number] [address] [place] [address] February, [facility] [address] [id number] [address] [place] [address] February, [facility] [address] [id number] [address] [place] [address] February, [facility] [address] [id number] [address] [place] [address] Jan, Chronic skin ulcer with fat layer exposed L98.492 [facility] [address] [id number] [address] [place] [address] Jan, [facility] [address] [id number] [address] [place] [address] Dec, [facility] [address] [id number] [address] [place] [address] Dec, Diabetic polyneuropathy asso ciated with type 2 diabetes mellitus E11.42 and PAD (peripheral artery disease) I73.9 [facility] [address] [id number] [address] [place] [address] Dec, Chronic skin ulcer with fat layer exposed L98.492 [facility] [address] [id number] [address] [place] [address] Dec, [facility] [address] [id number] [address] [place] [address] Nov, [facility] [address] [id number] [address] [place] [address] Nov, Skin ulcer of right foot wit h fat layer exposed L97.512 [facility] [address] [id number] [address] [place] [address] Oct, [facility] [address] [id number] [address] [place] [address] Oct, Skin ulcer of right foot wit h fat layer exposed L97.512 [facility] [address] [id number] [address] [place] [address] Sep, Diabetes mellitus E11.9 [facility] [address] [id number] [address] [place] [address] Sep, [facility] [address] [id number] [address] [place] [address] Sep, [facility] [address] [id number] [address] [place] [address] Sep, [facility] [address] [id number] [address] [place] [address] Sep, Type 2 diabetes mellitus wit h foot ulcer E11.621 and Skin ulcer of right foot with fat layer exposed L97.512 [facility] [address] [id number] [address] [place] [address] Sep, Diabetes mellitus E11.9 [facility] [address] [id number] [address] [place] [address] Sep, [facility] [address] [id number] [address] [place] [address] Aug, [facility] [address] [id number] [address] [place] [address] Aug, [facility] [address] [id number] [address] [place] [address] Aug, 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 [facility] [address] [id number] [address] [place] [address] Aug, [facility] [address] [facility] [id number] [address] [place] [address] Aug, [facility] [address] [facility] [id number] [address] [place] [address] Aug, Bronchitis J40 [facility] [address] [facility] [id number] [address] [place] [address] Aug, [facility] [address] [facility] [id number] [address] [place] [address] Jul, [facility] [address] [facility] [id number] [address] [place] [address] Jul, Chronic skin ulcer with fat layer exposed L98.492 [facility] [address] [facility] [id number] [address] [place] [address] Jul, 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 [facility] [address] [facility] [id number] [address] [place] [address] Jun, [facility] [address] [facility] [id number] [address] [place] [address] Jun, [facility] [address] [facility] [id number] [address] [place] [address] May, [facility] [address] [facility] [id number] [address] [place] [address] May, Chronic skin ulcer with fat layer exposed L98.492 [facility] [address] [facility] [id number] [address] [place] [address] Apr, [facility] [address] [facility] [id number] [address] [place] [address] Apr, Type 2 diabetes mellitus wit h foot ulcer E11.621 and Unsteady gait R26.81 [facility] [address] [facility] [id number] [address] [place] [address] Mar, Decubitus ulcer of right mariana l, stage 3 L89.613 [place] [address] [facility] [id number] [address] [place] [address] Mar, [place] [address] [facility] [id number] [address] [place] [address] Mar, Pressure ulcer of unspecifie d heel, stage 4 L89.604 and Type 2 diabetes mellitus with foot ulcer E11.621 [place] [address] [facility] [id number] [address] [place] [address] Mar, Encounter for medication mon itoring Z51.81 [place] [address] [facility] [id number] [address] [place] [address] Mar, Type 2 diabetes mellitus wit h foot ulcer E11.621 and Non-pressure chronic ulcer of right heel and midfoot with unspecified severity L97.419 [place] [address] [facility] [id number] [address] [place] [address] February, [place] [address] [facility] [id number] [address] [place] [address] Jan, Right ankle pain M25.571 [place] [address] [facility] [id number] [address] [place] [address] Dec, Right ankle pain M25.571 [place] [address] [facility] [id number] [address] [place] [address] Dec, [place] [address] [facility] [id number] [address] [place] [address] Dec, [place] [address] [facility] [id number] [address] [place] [address] Dec, Right ankle pain M25.571 [place] [address] [facility] [id number] [address] [place] [address] Dec, Chronic skin ulcer with fat layer exposed L98.492 ; Type 2 diabetes mellitus with diabetic autonomic (poly)neuropathy E11.[address] [facility] [address] [id number] [address] [place] [address] Nov, [facility] [address] [facility] [id number] [address] [place] [address] Nov, [facility] [address] [facility] [id number] [address] [place] [address] Nov, [facility] [address] [facility] [id number] [address] [place] [address] Nov, Right ankle pain M25.571 and Chronic osteomyelitis of right foot with draining sinus M86.471 [facility] [address] [facility] [id number] [address] [place] [address] Oct, Right ankle pain M25.571 [facility] [address] [place] [id number] [address] [place] [address] Oct, [facility] [address] [facility] [id number] [address] [place] [address] Sep, Diabetes mellitus E11.9 [facility] [address] [facility] [id number] [address] [place] [address] Sep, Diabetic polyneuropathy asso ciated with type 2 diabetes mellitus E11.42 and Venous insufficiency I87.2 [facility] [address] [facility] [id number] [address] [place] [address] Sep, Right ankle pain M25.571 [facility] [address] [facility] [id number] [address] [place] [address] Aug, Right ankle pain M25.571 [facility] [address] [facility] [id number] [address] [place] [address] Aug, Chronic osteomyelitis of rig ht foot with draining sinus M86.471 [facility] [address] [facility] [id number] [address] [place] [address] Aug, [facility] [address] [id number] [address] [place] [address] Aug, [facility] [address] [id number] [address] [place] [address] Aug, Chronic osteomyelitis of rig ht foot with draining sinus M86.471 [facility] [address] [id number] [address] [place] [address] Jul, [facility] [address] [id number] [address] [place] [address] Jul, [facility] [address] [id number] [address] [place] [address] Jul, Chronic kidney disease N18.9 [facility] [address] [facility] [id number] [address] [place] [address] Jul, Right ankle pain M25.571 [facility] [address] [facility] [id number] [address] [place] [address] Jul, Non-healing ulcer of right f oot, unspecified ulcer stage L97.519 [facility] [address] [id number] [address] [place] [address] Jul, Chronic skin ulcer with fat layer exposed L98.492 [facility] [address] [facility] [id number] [address] [place] [address] Jul, Deformity of right ankle nitza nt M21.961 [facility] [address] [id number] [address] [place] [address] Jun, [facility] [address] [facility] [id number] [address] [place] [address] Jun, Diabetes mellitus E11.9 ; Sk in ulcer of right foot with fat layer exposed L97.512 and Encounter for immunization Z23 [facility] [address] [id number] [address] [place] [address] Jun, Right ankle pain M25.571 [facility] [address] [facility] [id number] [address] [place] [address] May, Right ankle pain M25.571 [facility] [address] [facility] [id number] [address] [place] [address] Apr, Right ankle pain M25.571 [facility] [address] [facility] [id number] [address] [place] [address] Mar, Right ankle pain M25.571 [facility] [address] [facility] [id number] [address] [place] [address] Mar, [facility] [address] [place] [id number] [address] [place] [address] February, Diabetes mellitus E11.9 and Diabetic polyneuropathy associated with type [address] [facility] [address] [place] [id number] [address] [place] [address] February, Hyperkalemia E87.5 [facility] [address] [place] [id number] [address] [place] [address] February, Right ankle pain M25.571 [facility] [address] [place] [id number] [address] [place] [address] Jan, Right ankle pain M25.571 [facility] [address] [place] [id number] [address] [place] [address] Dec, Right ankle pain M25.571 [facility] [address] [place] [id number] [address] [place] [address] Dec, Right ankle pain M25.571 [facility] [address] [facility] [id number] [address] [place] [address] Nov, [facility] [address] [place] [id number] [address] [place] [address] Nov, Diabetes mellitus E11.9 ; Hy pertension I10 ; Gastroparesis K31.84 and Type 2 diabetes mellitus with diabetic autonomic (poly)neuropathy E11.43 [facility] [address] [place] [id number] [address] [place] [address] Nov, Right ankle pain M25.571 [facility] [address] [id number] [address] [place] [address] Oct, Right ankle pain M25.571 [facility] [address] [id number] [address] [place] [address] Oct, [facility] [address] [id number] [address] [place] [address] Oct, [facility] [address] [facility] [id number] [address] [place] [address] Sep, [facility] [address] [facility] [id number] [address] [place] [address] Sep, Hypertension I10 [facility] [address] [place] [id number] [address] [place] [address] Sep, Chronic kidney disease N18.9 ; Right ankle pain M25.571 and GERD (gastroesophageal reflux disease) K21.9 [facility] [address] [facility] [id number] [address] [place] [address] Jul, [facility] [address] [facility] [id number] [address] [place] [id number] Jul, Encounter for immunization Z 23 ; Venous insufficiency I87.2 and Diabetic polyneuropathy associated with type [address] [facility] [address] [facility] [id number] [address] [place] [id number] Jul, [facility] [address] [facility] [id number] [address] [place] [id number] Jul, Diabetes mellitus E11.9 [facility] [address] [facility] [id number] [address] [place] [id number] May, [facility] [address] [facility] [id number] [address] [place] [id number] Apr, [facility] [address] [facility] [id number] [address] [place] [id number] Mar, Right ankle pain M25.571 [facility] [address] [id number] [address] [place] [id number] Mar, [facility] [address] [id number] [address] [place] [id number] February, Paresthesias R20.2 [facility] [address] [id number] [address] [place] [id number] February, [facility] [address] [id number] [address] [place] [id number] February, 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 [facility] [address] [id number] [address] [place] [id number] February, Diabetes mellitus E11.9 [facility] [address] [id number] [address] [place] [id number] February, [facility] [address] [id number] [address] [place] [id number] February, Polyneuropathy in diabetes 3 57.[address] [facility] [address] [id number] [address] [place] [id number] February, [facility] [address] [facility] [id number] [address] [place] [address] February, [facility] [address] [id number] [address] [place] [address] February, [facility] [address] [id number] [address] [place] [address] February, Diabetes mellitus E11.9 [facility] [address] [id number] [address] [place] [address] February, [facility] [address] [id number] [address] [place] [address] February, Hyperkalemia E87.5 [facility] [address] [id number] [address] [place] [address] 29 Jan, [address] [facility] [address] [facility] [id number] [address] [place] [address] Jan, Insomnia G47.00 [facility] [address] [facility] [id number] [address] [place] [address] Jan, [facility] [id number] [place] [address] Jan, [facility] [address] [facility] [id number] [address] [place] [address] Jan, [facility] [address] [address] 31 Dec, 2015 Right ankle pain M25.571 [facility] [address] [address] Dec, GERD (gastroesophageal reflu x disease) K21.9 [facility] [address] [address] Dec, Insomnia G47.00 [facility] [address] [address] Dec, Hypertension I10 and Hyperka lemia 276.7 [facility] [address] [id number] [address] [place] [address] Dec, Chronic kidney disease N18.9 [facility] [address] [facility] [id number] [address] [place] [address] Dec, [facility] [address] [id number] [address] [place] [address] 04 Dec, [address] [facility] [address] [id number] [address] [place] [address] 03 Dec, 2016 Chronic kidney disease N18.9 and Right ankle pain M25.571 [facility] [address] [id number] [address] [place] [address] Nov, GERD (gastroesophageal reflu x disease) K21.9 [facility] [address] [id number] [address] [place] [address] Nov, Right ankle pain M25.571 [facility] [address] [id number] [address] [place] [address] Nov, Diabetes mellitus E11.9 [facility] [address] [id number] [address] [place] [address] Oct, [facility] [address] [id number] [address] [place] [address] Oct, [facility] [address] [id number] [address] [place] [address] Oct, [facility] [address] [id number] [address] [place] [address] Oct, Hyperkalemia E87.5 [facility] [address] [id number] [address] [place] [address] Oct, [facility] [address] [id number] [address] [place] [address] Oct, Hyperkalemia E87.5 [facility] [address] [id number] [address] [place] [address] Sep, [facility] [address] [id number] [address] [place] [address] [address], [address] [facility] [address] [id number] [address] [place] [address] Sep, [facility] [address] [id number] [address] [place] [address] 07 Sep, 2015 [facility] [address] [id number] [address] [place] [address] Sep, Right ankle pain M25.571 [facility] [address] [id number] [address] [place] [address] Aug, Chronic kidney disease N18.9 [facility] [address] [id number] [address] [place] [address] Aug, [facility] [address] [facility] [id number] [address] [place] [address] Aug, Hyperkalemia E87.5 [facility] [address] [id number] [address] [place] [address] Aug, [facility] [address] [id number] [address] [place] [address] Jul, [facility] [address] [facility] [id number] [address] [place] [address] Jul, [facility] [address] [facility] [id number] [address] [place] [address] Jul, [facility] [address] [facility] [id number] [address] [place] [address] Jul, Diabetes mellitus E11.9 ; En counter for immunization Z23 ; Hypertension I10 [address]87[address]5 [facility] [address] [id number] [address] [place] [address] Jul, [facility] [address] [facility] [id number] [address] [place] [address] Jul, Hyperkalemia E87.5 [facility] [address] [facility] [id number] [address] [place] [address] Jul, Hyperkalemia E87.5 [facility] [address] [id number] [address] [place] [address] Jun, [facility] [address] [id number] [address] [place] [address] Jun, [facility] [address] [facility] [id number] [address] [place] [address] Jun, [facility] [address] [id number] [address] [place] [address] Jun, [facility] [address] [id number] [address] [place] [address], [place] [address] May, [facility] [address] [id number] [address] [place] [address], [place] [address] May, [facility] [address] [id number] [address] [place] [address], [place] [address] May, [facility] [address] [id number] [address] [place] [address] May, Hyperkalemia 276.7 [facility] [address] [id number] [address] [place] [address], [place] [address] May, [facility] [address] [id number] [address] [place] [address], [place] [address] Apr, Hyperkalemia 276.7 [facility] [address] [id number] [address] [place] [address], [place] [address] Apr, [facility] [address] [id number] [address] [place] [address], [place] [address] Apr, [facility] [address] [id number] [address] [place] [address], [place] [address] Apr, [facility] [address] [id number] [address] [place] [address] Apr, [facility] [address] [id number] [address] [place] [address] Apr, Hyperkalemia 276.7 [facility] [address] [id number] [address] [place] [address], [place] [address] Apr, [facility] [address] [id number] [address] [place] [address], [place] [address] Apr, [facility] [address] [id number] [address] [place] [address] Mar, [facility] [address] [id number] [address] [place] [address] Mar, Hyperkalemia 276.7 [facility] [address] [id number] [address] [place] [address] Mar, Hyperkalemia 276.7 [facility] [address] [id number] [address] [place] [address] Mar, [facility] [address] [id number] [address] [place] [address] Mar, [facility] [address] [id number] [address] [place] [address] Mar, [facility] [address] [id number] [address] [place] [address] Mar, [facility] [address] [id number] [address] [place] [address] Mar, Anserine bursitis 726.61 [facility] [address] [id number] [address] [place] [address] Mar, Asthma 493.[address] [facility] [address] [id number] [address] [place] [address] Mar, [facility] [address] [id number] [address] [place] [address] February, [facility] [address] [id number] [address] [place] [address] February, [facility] [address] [id number] [address] [place] [address] February, [facility] [address] [id number] [address] [place] [address] February, [facility] [address] [id number] [address] [place] [address] February, [facility] [address] [id number] [address] [place] [address] February, [facility] [address] [id number] [address] [place] [address], [place] [address] February, [facility] [address] [id number] [address] [place] [address], [place] [address] February, [facility] [address] [id number] [address] [place] [address], [place] [address] February, [facility] [address] [id number] [address] [place] [address], [place] [address] Jan, [facility] [address] [id number] [address] [place] [address], [place] [address] Jan, [facility] [address] [id number] [address] [place] [address], [place] [address] Dec, [facility] [address] [id number] [address] [place] [address], [place] [address] Dec, [facility] [address] [id number] [address] [place] [address], [place] [address] Dec, [facility] [address] [id number] [address] [place] [address], [place] [address] Dec, [facility] [address] [id number] [address] [place] [address], [place] [address] Dec, [facility] [address] [id number] [address] [place] [address], [place] [address] Dec, [facility] [address] [id number] [address] [place] [address], [place] [address] Dec, [facility] [address] [id number] [address] [place] [address], [place] [address] Dec, [facility] [address] [id number] [address] [place] [address], [place] [address] Dec, [facility] [address] [id number] [address] [place] [address], [place] [address] Dec, [facility] [address] [id number] [address] [place] [address], [place] [address] Dec, [facility] [address] [id number] [address] [place] [address], [place] [address] Dec, [facility] [address] [id number] [address] [place] [address], [place] [address] Dec, [facility] [address] [id number] [address] [place] [address], [place] [address] Dec, [facility] [address] [id number] [address] [place] [address], [place] [address] Nov, [facility] [address] [id number] [address] [place] [address], [place] [address] Nov, [facility] [address] [id number] [address] [place] [address], [place] [address] Nov, [facility] [address] [id number] [address] [place] [address], [place] [address] Nov, [facility] [address] [id number] [address] [place] [address], [place] [address] Nov, [facility] [address] [id number] [address] [place] [address], [place] [address] Nov, [facility] [address] [id number] [address] [place] [address], [place] [address] Oct, [facility] [address] [id number] [address] [place] [address], [place] [address] Oct, [facility] [address] [id number] [address] [place] [address], [place] [address] Oct, [facility] [address] [id number] [address] [place] [address], [place] [address] Oct, [facility] [address] [id number] [address] [place] [address], [place] [address] Oct, [facility] [address] [id number] [address] [place] [address], [place] [address] Oct, [facility] [address] [id number] [address] [place] [address], [place] [address] 30 Sep, 2014 [facility] [address] [id number] [address] [place] [address], [place] [address] 30 Sep, 2014 [facility] [address] [id number] [address] [place] [address], [place] [address] 16 Sep, 2014 [facility] [address] [id number] [address] [place] [address], [place] [address] Sep, [facility] [address] [id number] [address] [place] [address], [place] [address] Sep, [facility] [address] [id number] [address] [place] [address], [place] [address] Sep, [facility] [address] [id number] [address] [place] [address], [place] [address] Aug, [facility] [address] [id number] [address] [place] [address], [place] [address] Aug, [facility] [address] [id number] [address] [place] [address], [place] [address] Aug, [facility] [address] [id number] [address] [place] [address], [place] [address] Aug, [facility] [address] [id number] [address] [place] [address], [place] [address] Aug, [facility] [address] [id number] [address] [place] [address], [place] [address] Aug, [facility] [address] [id number] [address] [place] [address], [place] [address] Jul, [facility] [address] [id number] [address] [place] [address], [place] [address] 30 Jul, 2014 [facility] [address] [id number] [address] [place] [address], [place] [address] 22 Jul, 2014 [facility] [address] [id number] [address] [place] [address], [place] [address] Jul, [facility] [address] [id number] [address] [place] [address], [place] [address] Jul, [facility] [address] [id number] [address] [place] [address], [place] [address] Jul, [facility] [address] [id number] [address] [place] [address], [place] [address] Jul, [facility] [address] [id number] [address] [place] [address], [place] [address] Jul, [facility] [address] [id number] [address] [place] [address], [place] [address] Jul, [facility] [address] [id number] [address] [place] [address], [place] [address] Jul, [facility] [address] [id number] [address] [place] [address], [place] [address] Jul, [facility] [address] [id number] [address] [place] [address], [place] [address] Jun, [facility] [address] [id number] [address] [place] [address], [place] [address] Jun, [facility] [address] [id number] [address] [place] [address], [place] [address] Jun, [facility] [address] [id number] [address] [place] [address], [place] [address] Jun, [facility] [address] [id number] [address] [place] [address], [place] [address] Apr, [facility] [address] [id number] [address] [place] [address], [place] [address] Apr, [facility] [address] [id number] [address] [place] [address], [place] [address] Apr, [facility] [address] [id number] [address] [place] [address], [place] [address] Apr, [facility] [address] [id number] [address] [place] [address] 26 Mar, 2014 [facility] [address] [id number] [address] [place] [address] [address] Mar, 2014 [facility] [address] [id number] [address] [place] [address] [address], 2014 [facility] [address] [id number] [address] [place] [address] Mar, [facility] [address] [id number] [address] [place] [address] Mar, [facility] [address] [id number] [address] [place] [address] Sep, [facility] [address] [facility] [id number] [address] [place] [address] Sep, [facility] [address] [facility] [id number] [address] [place] [address] Aug, IMMUNIZATIONS No Known Immunizations SOCIAL HISTORY [...] V C oct 2016 Hospitalization History Pneum[place]2018 Hospitalization History fistula in left arm 07/2018
--- OUTSIDE RECORDS SUMMARY | 2020-04-01 19:26 | XMS REPORT ---
Author Author Josephine Veras Doctor Organization [facility] Address Unknown Phone Unavailable Care Team Providers Care Tonsorial Artist Name Role Phone Migration, Doctor Unavailable Unavailable PROBLEMS Type Condition ICD9-CM Code FYK00-TC Code Onset Dates Condition S tatus SNOMED Code Problem Diabetes mellitus E11.9 Active 73 559422 Problem Hypertension I10 Active 0547136 3 Problem Paresthesias R20.2 Active 2079102 4 Problem Chronic kidney disease N18.9 Active 635569801 Problem Venous insufficiency I87.2 Active 35218887 Problem Diabetic polyneuropathy associated with type 2 d iabetes mellitus E11.42 Active 61325277 Problem Type 2 diabetes mellitus with diabetic autonomic (poly)neuropathy E11.43 Active 811255236 Problem Chronic skin ulcer with fat layer exposed L98.492 Active 54807714 Problem Chronic osteomyelitis of right foot with draining sinus M86.471 Active 216026142217715 Problem PAD (peripheral artery disease) I73.9 Active 525733062 Problem Gastroparesis K31.84 Active 507344 006 Problem Seasonal allergic rhinitis due to other allergic trigger J30.89 Active 470792746 Problem GERD (gastroesophageal reflux disease) K21.9 Active 398013190 Problem Type 2 diabetes mellitus with foot ulcer E11.621 Active 78020703196143 Problem 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 Active 967221999 Problem Pressure ulcer of unspecified heel, stage 4 L89.60 4 Active 603340944 Problem Unsteady gait R26.81 Active 321308 08 ALLERGIES No Information ENCOUNTERS Encounter Location Date Diagnosis [facility] [id number] [place] [address] Oct, [facility] [id number] [place] [address] Oct, [facility] [facility] [id number] [place] [address] Sep, Chronic skin ulcer with fat layer expose d L98.492 and Unsteady gait R26.81 [facility] [address] [address] Sep, [facility] [address] [address] Sep, Chronic skin ulcer with fat layer expose d L98.492 [facility] [address] [address] Aug, Chronic skin ulcer with fat layer expose d L98.492 [facility] [address] [address] Aug, [facility] [address] [address] Aug, Type 2 diabetes mellitus with foot ulcer E11.621 and Chronic skin ulcer with fat layer exposed L98.492 [facility] [address] [address] Jul, Chronic skin ulcer with fat layer expose d L98.492 [facility] [address] [address] Jul, [facility] [address] [address] Jul, Chronic skin ulcer with fat layer expose d L98.492 [facility] [address] [address] Jun, Chronic skin ulcer with fat layer expose d L98.492 [facility] [address] [address] Jun, [facility] [address] [address] Jun, Chronic skin ulcer with fat layer expose d L98.492 [facility] [address] [address] May, Chronic skin ulcer with fat layer expose d L98.492 [facility] [address] [address] May, [facility] [address] [address] May, Chronic skin ulcer with fat layer expose d L98.492 [facility] [address] [address] Apr, Chronic skin ulcer with fat layer expose d L98.492 [facility] [address] [address] Apr, [address] [place] [address] Apr, [facility] [address] [address] Apr, Chronic skin ulcer with fat layer expose d L98.492 [facility] [address] [address] Apr, Foot callus L84 and Nonhealing wound of heel S91.309A [facility] [address] [address] Apr, [address] [place] [address] Mar, [facility] [address] [address] Mar, Diabetes mellitus E11.9 and Chronic skin ulcer with fat layer exposed L98.492 [facility] [address] [address] Mar, Chronic skin ulcer with fat layer expose d L98.492 [facility] [address] [address] Mar, [facility] [address] [address] February, Chronic skin ulcer with fat layer expose d L98.492 and Encounter for medication monitoring Z51.81 [facility] [address] [address] February, [facility] [address] [address] February, Encounter for medication monitoring Z51. 81 [facility] [address] [address] February, [facility] [address] [address] February, [facility] [address] [address] February, [facility] [address] [address] Jan, Chronic skin ulcer with fat layer expose d L98.492 [facility] [address] [address] Jan, [facility] [address] [address] Dec, [facility] [address] [address] Dec, Diabetic polyneuropathy associated with type 2 diabetes mellitus E11.42 and PAD (peripheral artery disease) I73.9 [facility] [address] [address] Dec, Chronic skin ulcer with fat layer expose d L98.492 [facility] [address] [address] Dec, [facility] [address] [address] Nov, [facility] [address] [address] Nov, Skin ulcer of right foot with fat layer exposed L97.512 [facility] [address] [address] Oct, [facility] [address] [address] Oct, Skin ulcer of right foot with fat layer exposed L97.512 [facility] [id number] [place] [address] Sep, Diabetes mellitus E11.9 [facility] [id number] [place] [address] Sep, [facility] [id number] [place] [address] Sep, [facility] [address] [address] Sep, [facility] [address] [address] 14 Sep, 2018 Type 2 diabetes mellitus with foot ulcer E11.621 and Skin ulcer of right foot with fat layer exposed L97.512 [facility] [id number] [place] [address] Sep, Diabetes mellitus E11.9 [facility] [address] [address] Sep, [facility] [id number] [place] [address] Aug, [facility] [address] [address] Aug, [facility] [id number] [place] [address] Aug, Non-pressure chronic ulcer of right heel and midfoot with unspecified severity L97.419 [facility] [id number] [place] [address] Aug, [facility] [address] [facility] [id number] [place] [address] Aug, [facility] [id number] [place] [address] Aug, Bronchitis J40 [facility] [id number] [place] [address] 08 Aug, 2018 [facility] [address] [address] Jul, [place] [address] [address] Jul, Chronic skin ulcer with fat layer expose d L98.492 [facility] [address] [address] Jul, Non-pressure chronic ulcer of right heel and midfoot with unspecified severity L97.419 [facility] [address] [address] Jun, [facility] [address] [address] Jun, [place] [address] [address] May, [facility] [address] [address] May, Chronic skin ulcer with fat layer expose d L98.492 [facility] [facility] [address] [address] Apr, [place] [address] [address] Apr, Type 2 diabetes mellitus with foot ulcer E11.621 and Unsteady gait R26.81 [facility] [address] [address] Mar, Decubitus ulcer of right heel, stage 3 L 89.613 [facility] [address] [address] Mar, [place] [address] [address] Mar, Pressure ulcer of unspecified heel, stag e 4 L89.604 and Type 2 diabetes mellitus with foot ulcer E11.621 [facility] [address] [address] Mar, Encounter for medication monitoring Z51. 81 [place] [address] [address] Mar, Type 2 diabetes mellitus with foot ulcer E11.621 and Non-pressure chronic ulcer of right heel and midfoot with unspecified severity L97.419 [place] [address] [address] February, [facility] [address] [address] Jan, Right ankle pain M25.571 [facility] [address] [address] Dec, Right ankle pain M25.571 [facility] [facility] [address] [address] Dec, [place] [address] [address] Dec, [place] [address] [address] Dec, Right ankle pain M25.571 [facility] [address] [address] Dec, Chronic skin ulcer with fat layer expose d L98.492 ; Type 2 diabetes mellitus with diabetic autonomic (poly)neuropathy E11.43 and Hypertension I10 [facility] [address] [address] Nov, [place] [address] [address] Nov, [place] [address] [address] Nov, [place] [address] [address] Nov, Right ankle pain M25.571 and Chronic ost eomyelitis of right foot with draining sinus M86.471 [facility] [address] [address] Oct, Right ankle pain M25.571 [facility] [address] [address] Oct, [facility] [address] [address] Sep, Diabetes mellitus E11.9 [facility] [address] [address] Sep, Diabetic polyneuropathy associated with type 2 diabetes mellitus E11.42 and Venous insufficiency I87.2 [facility] [address] [address] Sep, Right ankle pain M25.571 [facility] [address] [address] Aug, Right ankle pain M25.571 [facility] [address] [address] Aug, Chronic osteomyelitis of right foot with draining sinus M86.471 [facility] [address] [address] Aug, [facility] [address] [address] Aug, [facility] [address] [address] Aug, Chronic osteomyelitis of right foot with draining sinus M86.471 [facility] [address] [address] Jul, [facility] [address] [address] Jul, [facility] [address] [address] Jul, Chronic kidney disease N18.9 [facility] [address] [address] Jul, Right ankle pain M25.571 [facility] [address] [address] Jul, Non-healing ulcer of right foot, unspeci fied ulcer stage L97.519 [facility] [address] [address] Jul, Chronic skin ulcer with fat layer expose d L98.492 [facility] [address] [address] Jul, Deformity of right ankle joint M21.961 [place] [address] [address] Jun, [place] [address] [address] Jun, Diabetes mellitus E11.9 ; Skin ulcer of right foot with fat layer exposed L97.512 and Encounter for immunization Z23 [facility] [address] [address] Jun, Right ankle pain M25.571 [place] [address] [address] May, Right ankle pain M25.571 [place] [address] [address] Apr, Right ankle pain M25.571 [place] [address] [address] Mar, Right ankle pain M25.571 [place] [address] [address] Mar, [place] [address] [address] February, Diabetes mellitus E11.9 and Diabetic allen yneuropathy associated with type 2 diabetes mellitus E11.42 [facility] [address] [address] February, Hyperkalemia E87.5 [place] [address] [address] February, Right ankle pain M25.571 [facility] [address] [address] Jan, Right ankle pain M25.571 [address] [address] [address] Dec, Right ankle pain M25.571 [place] [address] [address] Dec, Right ankle pain M25.571 [place] [address] [address] Nov, [place] [address] [address] Nov, Diabetes mellitus E11.9 ; Hypertension I 10 ; Gastroparesis K31.84 and Type 2 diabetes mellitus with diabetic autonomic (poly)neuropathy E11.43 [place] [address] [address] Nov, Right ankle pain M25.571 [place] [address] [address] Oct, Right ankle pain M25.571 [place] [address] [address] Oct, [place] [address] [address] Oct, [place] [address] [address] Sep, [place] [address] [address] Sep, Hypertension I10 [place] [address] [address] Sep, Chronic kidney disease N18.9 ; Right ank le pain M25.571 and GERD (gastroesophageal reflux disease) K21.9 [place] [address] [address] Jul, [facility] [address] [address] Jul, Encounter for immunization Z23 ; Venous insufficiency I87.2 and Diabetic polyneuropathy associated with type 2 diabetes mellitus E11.42 [facility] [address] [address] Jul, [facility] [address] [address] Jul, Diabetes mellitus E11.9 [facility] [address] [address] May, [facility] [address] [address] Apr, [facility] [address] [address] Mar, Right ankle pain M25.571 [facility] [address] [address] Mar, [facility] [address] [address] February, Paresthesias R20.2 [facility] [address] [address] February, [facility] [address] [address] February, 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 [facility] [address] [address] February, Diabetes mellitus E11.9 [facility] [address] [address] February, [facility] [address] [address] February, Polyneuropathy in diabetes 357.2 and Par esthesias R20.2 [facility] [address] [address] February, [address] [address] [address] February, [facility] [address] [address] February, [facility] [address] [address] February, Diabetes mellitus E11.9 [facility] [address] [address] February, [facility] [address] [address] February, Hyperkalemia E87.5 [facility] [address] [address] Jan, Hypertension I10 [place] [address] [address] Jan, Insomnia G47.00 [facility] [address] [address] Jan, [facility] [address] [address] Jan, [facility] [address] [address] Jan, [facility] [address] [address] Dec, Right ankle pain M25.571 [facility] [address] [address] Dec, GERD (gastroesophageal reflux disease) K 21.9 [facility] [address] [address] Dec, Insomnia G47.00 [facility] [address] [address] Dec, Hypertension I10 and Hyperkalemia 276.7 [facility] [address] [address] Dec, Chronic kidney disease N18.9 [facility] [id number] [place] [address] 07 Dec, 2015 [facility] [id number] [place] [address] Dec, Hyperkalemia E87.5 [facility] [id number] [place] [address] Dec, Chronic kidney disease N18.9 and Right a nkle pain M25.571 [facility] [id number] [place] [address] Nov, GERD (gastroesophageal reflux disease) K 21.9 [facility] [address] [address] 03 Nov, 2015 Right ankle pain M25.571 [facility] [address] [address] Nov, Diabetes mellitus E11.9 [facility] [id number] [place] [address] Oct, [facility] [address] [address] Oct, [facility] [address] [address] Oct, [facility] [address] [address] Oct, Hyperkalemia E87.5 [facility] [id number] [place] [address] Oct, [facility] [address] [address] Oct, Hyperkalemia E87.5 [facility] [id number] [place] [address] Sep, [facility] [address] [address] Sep, [facility] [id number] [place] [address] Sep, [facility] [address] [address] Sep, [facility] [id number] [place] [address] Sep, Right ankle pain M25.571 [facility] [address] [address] Aug, Chronic kidney disease N18.9 [facility] [address] [address] Aug, [facility] [address] [address] Aug, Hyperkalemia E87.5 [facility] [address] [address] Aug, [facility] [address] [address] Jul, [facility] [address] [address] Jul, [facility] [address] [address] Jul, [facility] [address] [address] Jul, Diabetes mellitus E11.9 ; Encounter for immunization Z23 ; Hypertension I10 and Hyperkalemia E87.5 [facility] [address] [address] Jul, [facility] [address] [address] Jul, Hyperkalemia E87.5 [facility] [address] [address] Jul, Hyperkalemia E87.5 [facility] [address] [address] 28 Jun, 2015 [facility] [address] [id number] [place] [address] Jun, [facility] [address] [id number] [place] [address] 15 Jun, 2015 [facility] [address] [id number] [place] [address] Jun, [facility] [address] [id number] [place] [address] May, [facility] [address] [id number] [place] [address] May, [facility] [address] [id number] [place] [address] May, [facility] [address] [id number] [place] [address] May, Hyperkalemia 276.7 [facility] [address] [id number] [place] [address] May, [facility] [address] [id number] [place] [address] Apr, Hyperkalemia 276.7 [facility] [address] [id number] [place] [address] Apr, [facility] [address] [id number] [place] [address] Apr, [facility] [address] [id number] [place] [address] Apr, [facility] [address] [id number] [place] [address] Apr, [facility] [address] [id number] [place] [address] 14 Apr, 2015 Hyperkalemia 276.7 [facility] [address] [id number] [place] [address] Apr, [facility] [address] [id number] [place] [address] Apr, [facility] [address] [id number] [place] [address] Mar, [facility] [address] [id number] [place] [address] Mar, Hyperkalemia 276.7 [facility] [address] [id number] [place] [address] Mar, Hyperkalemia 276.7 [facility] [id number] [place] [address] Mar, [facility] [id number] [place] [address] Mar, [facility] [id number] [place] [address] Mar, [facility] [id number] [place] [address] Mar, [facility] [id number] [place] [address] Mar, Anserine bursitis 726.61 [facility] [id number] [place] [address] Mar, Asthma 493.90 and Hyperkalemia 276.7 [facility] [id number] [place] [address] Mar, [facility] [id number] [place] [address] February, [facility] [address] [id number] [place] [address] February, [facility] [id number] [place] [address] February, [facility] [id number] [place] [address] February, [facility] [id number] [place] [address] February, [facility] [address] [id number] [place] [address] February, [facility] [address] [id number] [place] [address] February, [facility] [address] [id number] [place] [address] February, [facility] [address] [id number] [place] [address] February, [facility] [address] [id number] [place] [address] Jan, [facility] [address] [id number] [place] [address] Jan, [facility] [address] [id number] [place] [address] Dec, [facility] [address] [id number] [place] [address] Dec, [facility] [address] [id number] [place] [address] Dec, [facility] [address] [id number] [place] [address] Dec, [facility] [address] [id number] [place] [address] Dec, [facility] [address] [id number] [place] [address] Dec, [facility] [address] [id number] [place] [address] Dec, [facility] [address] [id number] [place] [address] Dec, [facility] [address] [id number] [place] [address] Dec, [facility] [address] [id number] [place] [address] Dec, [facility] [address] [id number] [place] [address] Dec, [facility] [address] [id number] [place] [address] Dec, [facility] [address] [id number] [facility] [address] Dec, [facility] [address] [id number] [place] [address] Dec, [facility] [address] [id number] [place] [address] Nov, [facility] [address] [id number] [place] [address] Nov, [facility] [address] [id number] [place] [address] Nov, [facility] [address] [id number] [place] [address] Nov, [facility] [address] [id number] [place] [address] Nov, [facility] [address] [id number] [place] [address] Nov, [facility] [address] [id number] [place] [address] Oct, [facility] [address] [id number] [place] [address] Oct, [facility] [address] [id number] [place] [address] Oct, [facility] [address] [id number] [place] [address] Oct, [facility] [address] [id number] [place] [address] Oct, [facility] [address] [id number] [place] [address] Oct, [facility] [address] [id number] [place] [address] Sep, [facility] [address] [id number] [place] [address] 30 Sep, 2014 [facility] [address] [facility] [id number] [place] [address] Sep, [facility] [address] [id number] [place] [address] Sep, [facility] [address] [id number] [place] [address] Sep, [facility] [address] [id number] [place] [address] Sep, [facility] [address] [id number] [place] [address] Aug, [facility] [address] [id number] [place] [address] Aug, [facility] [address] [id number] [place] [address] Aug, [facility] [address] [id number] [place] [address] Aug, [facility] [address] [id number] [place] [address] Aug, [facility] [address] [id number] [place] [address] Aug, [facility] [address] [id number] [place] [address] Jul, [facility] [address] [id number] [place] [address] Jul, [facility] [address] [id number] [place] [address] Jul, [facility] [address] [id number] [place] [address] Jul, [facility] [address] [id number] [place] [address] Jul, [facility] [address] [id number] [place] [address] Jul, [facility] [address] [id number] [place] [address] Jul, [facility] [address] [id number] [place] [address] Jul, [facility] [address] [id number] [place] [address] Jul, [facility] [address] [id number] [place] [address] Jul, [facility] [address] [facility] [id number] [place] [address] Jul, [facility] [address] [id number] [place] [address] Jun, [facility] [address] [id number] [place] [address] Jun, [facility] [address] [id number] [place] [address] Jun, [facility] [address] [id number] [place] [address] Jun, [facility] [address] [id number] [place] [address] Apr, [facility] [address] [id number] [place] [address] Apr, [facility] [address] [id number] [place] [address] Apr, [facility] [address] [id number] [place] [address] Apr, [facility] [address] [id number] [place] [address] Mar, [facility] [address] [id number] [place] [address] Mar, [facility] [address] [id number] [place] [address] Mar, [facility] [address] [id number] [place] [address] 14 Mar, 2014 [facility] [address] [id number] [place] [address] 14 Mar, 2014 [facility] [address] [id number] [place] [address] Sep, [facility] [address] [id number] [place] [address] Sep, [facility] [address] [id number] [place] [address] Aug, IMMUNIZATIONS No Known Immunizations SOCIAL HISTORY Never Assessed REASON FOR VISIT PLAN OF CARE VITAL SIGNS Weight 161.25 lbs 2014-04-07 Temperature 97.1 degrees Fahrenheit 2014-04-07 Heart Rate 78 bpm 2014-04-07 Respiratory Rate 18 2014-04-07 Blood pressure systolic 120 mmHg 2014-04-07 Blood pressure diastolic 74 mmHg 2014-04-07 MEDICATIONS Unknown Medications RESULTS No Results PROCEDURES Procedure Date Ordered Result Body Site VISIT April 07, 2014 INSTRUCTIONS MEDICATIONS ADMINISTERED No Known Medications [...] V C oct 2016 Hospitalization History Pneumonia [place] [facility] 06/2018 Hospitalization History fistula in left arm 07/2018
--- OUTSIDE RECORDS SUMMARY | 2020-04-01 19:26 | XMS REPORT ---
Author Author Josephine HANCOCK Organization [facility] Address [address] [place] [address] Care Team Providers Care Government Professor Name Role Phone SERGIO HANCOCK Unavailable PROBLEMS Type Condition ICD9-CM Code ADI00-HQ Code Onset Dates Condition S tatus SNOMED Code Problem Diabetes mellitus E11.9 Active 73 068703 Problem Hypertension I10 Active 7665197 3 Problem Paresthesias R20.2 Active 4107587 4 Problem Chronic kidney disease N18.9 Active 083022543 Problem Venous insufficiency I87.2 Active 73171459 Problem Diabetic polyneuropathy associated with type 2 d iabetes mellitus E11.42 Active 64222228 Problem Type 2 diabetes mellitus with diabetic autonomic (poly)neuropathy E11.43 Active 898706277 Problem Chronic skin ulcer with fat layer exposed L98.492 Active 49333452 Problem Chronic osteomyelitis of right foot with draining sinus M86.471 Active 092934491580898 Problem PAD (peripheral artery disease) I73.9 Active 143426869 Problem Gastroparesis K31.84 Active 200093 006 Problem Seasonal allergic rhinitis due to other allergic trigger J30.89 Active 324776602 Problem GERD (gastroesophageal reflux disease) K21.9 Active 383172524 Problem Type 2 diabetes mellitus with foot ulcer E11.621 Active 63625015220375 Problem 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 Active 505581429 Problem Pressure ulcer of unspecified heel, stage 4 L89.60 4 Active 302577198 Problem Unsteady gait R26.81 Active 992842 08 ALLERGIES Substance Reaction Event Type Date Status Plavix caused bleeding Drug Allergy Dec, Active Neurontin Makes her disoriented Drug Allergy Dec, Active Lyrica dizziness Drug Allergy Dec, Active Vancomycin HCl Unknown Drug Allergy Dec, Active Sulfacetamide Sodium Unknown Drug Allergy Dec, Active ENCOUNTERS Encounter Location Date Diagnosis [facility] [address] [address] Oct, [facility] [address] [address] Oct, [facility] [address] [place] [address] Oct, [facility] [address] [address] Sep, Chronic skin ulcer with fat layer expose d L98.492 and Unsteady gait R26.81 [facility] [address] [address] Sep, [facility] [address] [address] Sep, Chronic skin ulcer with fat layer expose d L98.492 [place] [address] [address] Aug, Chronic skin ulcer with fat layer expose d L98.492 [facility] [address] [address] Aug, [facility] [address] [address] Aug, Type 2 diabetes mellitus with foot ulcer E11.621 and Chronic skin ulcer with fat layer exposed L98.492 [place] [address] [address] Jul, Chronic skin ulcer with fat layer expose d L98.492 [facility] [address] [address] Jul, [facility] [address] [address] Jul, Chronic skin ulcer with fat layer expose d L98.492 [facility] [address] [address] Jun, Chronic skin ulcer with fat layer expose d L98.492 [facility] [address] [address] Jun, [facility] [address] [address] Jun, Chronic skin ulcer with fat layer expose d L98.492 [facility] [address] [address] May, Chronic skin ulcer with fat layer expose d L98.492 [facility] [address] [address] May, [facility] [address] [address] May, Chronic skin ulcer with fat layer expose d L98.492 [facility] [address] [address] Apr, Chronic skin ulcer with fat layer expose d L98.492 [facility] [address] [address] Apr, [address] [place] [address] Apr, [facility] [address] [address] Apr, Chronic skin ulcer with fat layer expose d L98.492 [facility] [address] [address] Apr, Foot callus L84 and Nonhealing wound of heel S91.309A [facility] [address] [address] Apr, [address] [place] [address] Mar, [facility] [address] [address] Mar, Diabetes mellitus E11.9 and Chronic skin ulcer with fat layer exposed L98.492 [facility] [address] [address] Mar, Chronic skin ulcer with fat layer expose d L98.492 [facility] [address] [address] Mar, [facility] [address] [address] February, Chronic skin ulcer with fat layer expose d L98.492 and Encounter for medication monitoring Z51.81 [facility] [address] [address] February, [facility] [address] [address] February, Encounter for medication monitoring Z51. 81 [facility] [address] [address] February, [facility] [address] [address] February, [facility] [address] [address] February, [facility] [address] [address] Jan, Chronic skin ulcer with fat layer expose d L98.492 [facility] [address] [address] Jan, [facility] [address] [address] Dec, [facility] [address] [address] Dec, Diabetic polyneuropathy associated with type 2 diabetes mellitus E11.42 and PAD (peripheral artery disease) I73.9 [facility] [address] [address] Dec, Chronic skin ulcer with fat layer expose d L98.492 [facility] [address] [address] Dec, [facility] [address] [address] Nov, [facility] [address] [address] Nov, Skin ulcer of right foot with fat layer exposed L97.512 [facility] [address] [place] [id number] [place] [address] Oct, [facility] [address] [address] Oct, Skin ulcer of right foot with fat layer exposed L97.512 [facility] [address] [address] Sep, Diabetes mellitus E11.9 [facility] [address] [address] Sep, [facility] [address] [address] Sep, [facility] [address] [address] Sep, [facility] [address] [address] Sep, Type 2 diabetes mellitus with foot ulcer E11.621 and Skin ulcer of right foot with fat layer exposed L97.512 [facility] [address] [address] Sep, Diabetes mellitus E11.9 [facility] [address] [address] Sep, [facility] [address] [address] Aug, [facility] [address] [address] Aug, [facility] [address] [address] Aug, Non-pressure chronic ulcer of right heel and midfoot with unspecified severity L97.419 [facility] [address] [address] Aug, [facility] [address] [facility] [id number] [place] [address] Aug, [facility] [address] [address] Aug, Bronchitis J40 [facility] [address] [address] Aug, [facility] [address] [address] Jul, [facility] [address] [address] Jul, Chronic skin ulcer with fat layer expose d L98.492 [facility] [address] [address] Jul, Non-pressure chronic ulcer of right heel and midfoot with unspecified severity L97.419 [facility] [address] [address] Jun, [facility] [address] [address] Jun, [facility] [address] [address] May, [facility] [address] [address] May, Chronic skin ulcer with fat layer expose d L98.492 [facility] [address] [address] Apr, [facility] [address] [address] Apr, Type 2 diabetes mellitus with foot ulcer E11.621 and Unsteady gait R26.81 [facility] [address] [address] Mar, Decubitus ulcer of right heel, stage 3 L 89.613 [place] [address] [address] Mar, [place] [address] [address] Mar, Pressure ulcer of unspecified heel, stag e 4 L89.604 and Type 2 diabetes mellitus with foot ulcer E11.621 [place] [address] [address] Mar, Encounter for medication monitoring Z51. 81 [place] [address] [address] Mar, Type 2 diabetes mellitus with foot ulcer E11.621 and Non-pressure chronic ulcer of right heel and midfoot with unspecified severity L97.419 [place] [address] [address] February, [place] [address] [address] Jan, Right ankle pain M25.571 [place] [address] [address] Dec, Right ankle pain M25.571 [place] [address] [address] Dec, [place] [address] [address] Dec, [place] [address] [address] Dec, Right ankle pain M25.571 [place] [address] [address] Dec, Chronic skin ulcer with fat layer expose d L98.492 ; Type 2 diabetes mellitus with diabetic autonomic (poly)neuropathy E11.43 and Hypertension I10 [place] [address] [address] Nov, [place] [address] [address] Nov, [place] [address] [address] Nov, [facility] [address] [address] Nov, Right ankle pain M25.571 and Chronic ost eomyelitis of right foot with draining sinus M86.471 [place] [address] [address] Oct, Right ankle pain M25.571 [facility] [address] [address] Oct, [place] [address] [address] Sep, Diabetes mellitus E11.9 [place] [address] [address] Sep, Diabetic polyneuropathy associated with type 2 diabetes mellitus E11.42 and Venous insufficiency I87.2 [place] [address] [address] Sep, Right ankle pain M25.571 [place] [address] [address] Aug, Right ankle pain M25.571 [place] [address] [address] Aug, Chronic osteomyelitis of right foot with draining sinus M86.471 [place] [address] [address] Aug, [facility] [address] [address] Aug, [facility] [address] [address] Aug, Chronic osteomyelitis of right foot with draining sinus M86.471 [facility] [address] [place] [id number] [place] [address] Jul, [facility] [address] [address] Jul, [place] [address] [address] Jul, Chronic kidney disease N18.9 [place] [address] [address] Jul, Right ankle pain M25.571 [place] [address] [address] Jul, Non-healing ulcer of right foot, unspeci fied ulcer stage L97.519 [place] [address] [address] Jul, Chronic skin ulcer with fat layer expose d L98.492 [place] [address] [address] Jul, Deformity of right ankle joint M21.961 [place] [address] [address] Jun, [place] [address] [address] Jun, Diabetes mellitus E11.9 ; Skin ulcer of right foot with fat layer exposed L97.512 and Encounter for immunization Z23 [place] [address] [address] Jun, Right ankle pain M25.571 [place] [address] [address] May, Right ankle pain M25.571 [place] [address] [address] Apr, Right ankle pain M25.571 [place] [address] [address] Mar, Right ankle pain M25.571 [place] [address] [address] Mar, [place] [address] [address] February, Diabetes mellitus E11.9 and Diabetic allen yneuropathy associated with type 2 diabetes mellitus E11.42 [place] [address] [address] February, Hyperkalemia E87.5 [place] [address] [address] February, Right ankle pain M25.571 [place] [address] [address] Jan, Right ankle pain M25.571 [place] [address] [address] Dec, Right ankle pain M25.571 [place] [address] [address] Dec, Right ankle pain M25.571 [place] [address] [address] Nov, [place] [address] [address] Nov, Diabetes mellitus E11.9 ; Hypertension I 10 ; Gastroparesis K31.84 and Type 2 diabetes mellitus with diabetic autonomic (poly)neuropathy E11.43 [place] [address] [address] Nov, Right ankle pain M25.571 [place] [address] [address] Oct, Right ankle pain M25.571 [place] [address] [address] Oct, [place] [address] [address] Oct, [place] [address] [address] Sep, [place] [address] [address] Sep, Hypertension I10 [place] [address] [address] Sep, Chronic kidney disease N18.9 ; Right ank le pain M25.571 and GERD (gastroesophageal reflux disease) K21.9 [place] [address] [address] Jul, [place] [address] [address] Jul, Encounter for immunization Z23 ; Venous insufficiency I87.2 and Diabetic polyneuropathy associated with type 2 diabetes mellitus E11.42 [place] [address] [address] Jul, [place] [address] [address] Jul, Diabetes mellitus E11.9 [place] [address] [address] May, [place] [address] [address] Apr, [place] [address] [address] Mar, Right ankle pain M25.571 [place] [address] [address] Mar, [place] [address] [address] February, Paresthesias R20.2 [place] [address] [address] February, [place] [address] [address] February, 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 [place] [address] [address] February, Diabetes mellitus E11.9 [facility] [address] [address] February, [facility] [address] [address] February, Polyneuropathy in diabetes 357.2 and Par esthesias R20.2 [facility] [address] [address] February, [facility] [address] [address] February, [facility] [address] [address] February, [facility] [address] [address] February, Diabetes mellitus E11.9 [facility] [address] [address] February, [facility] [address] [address] February, Hyperkalemia E87.5 [facility] [address] [address] Jan, Hypertension I10 [facility] [address] [address] Jan, Insomnia G47.00 [facility] [address] [address] Jan, [facility] [address] [address] Jan, [facility] [address] [address] Jan, [facility] [address] [address] Dec, Right ankle pain M25.571 [facility] [address] [address] Dec, GERD (gastroesophageal reflux disease) K 21.9 [facility] [address] [address] Dec, Insomnia G47.00 [facility] [address] [address] Dec, Hypertension I10 and Hyperkalemia 276.7 [place] [address] [address] 10 Dec, 2015 Chronic kidney disease N18.9 [facility] [address] [address] Dec, [place] [address] [address] 04 Dec, 2015 Hyperkalemia E87.5 [place] [address] [address] Dec, Chronic kidney disease N18.9 and Right a nkle pain M25.571 [place] [address] [address] 11 Nov, 2015 GERD (gastroesophageal reflux disease) K 21.9 [place] [address] [address] Nov, Right ankle pain M25.571 [place] [address] [address] Nov, Diabetes mellitus E11.9 [place] [address] [address] Oct, [place] [address] [address] Oct, [place] [address] [address] Oct, [place] [address] [address] Oct, Hyperkalemia E87.5 [place] [address] [address] Oct, [facility] [address] [address] Oct, Hyperkalemia E87.5 [facility] [address] [address] Sep, [facility] [address] [address] Sep, [facility] [address] [address] Sep, [facility] [address] [address] Sep, [facility] [address] [address] Sep, Right ankle pain M25.571 [facility] [address] [address] Aug, Chronic kidney disease N18.9 [facility] [address] [address] Aug, [facility] [address] [address] Aug, Hyperkalemia E87.5 [facility] [address] [address] Aug, [facility] [address] [address] Jul, [facility] [address] [address] Jul, [facility] [address] [address] Jul, [facility] [address] [address] Jul, Diabetes mellitus E11.9 ; Encounter for immunization Z23 ; Hypertension I10 and Hyperkalemia E87.5 [facility] [address] [place] [address] Jul, [facility] [address] [id number] [place] [address] Jul, Hyperkalemia E87.5 [facility] [address] [id number] [place] [address] Jul, Hyperkalemia E87.5 [facility] [address] [id number] [place] [address] Jun, [facility] [address] [id number] [place] [address] Jun, [facility] [address] [id number] [place] [address] Jun, [facility] [address] [id number] [place] [address] Jun, [facility] [address] [place] [id number] [place] [address] May, [facility] [address] [id number] [place] [address] May, [facility] [address] [id number] [place] [address] May, [facility] [address] [id number] [place] [address] May, Hyperkalemia 276.7 [facility] [address] [id number] [place] [address] May, [facility] [address] [id number] [place] [address] Apr, Hyperkalemia 276.7 [facility] [address] [id number] [place] [address] Apr, [facility] [address] [id number] [place] [address] Apr, [facility] [address] [id number] [place] [address] Apr, [facility] [address] [id number] [place] [address] Apr, [facility] [address] [id number] [place] [address] Apr, Hyperkalemia 276.7 [facility] [address] [id number] [place] [address] Apr, [facility] [address] [id number] [place] [address] Apr, [facility] [address] [id number] [place] [address] Mar, [facility] [address] [id number] [place] [address] Mar, Hyperkalemia 276.7 [facility] [address] [id number] [place] [address] Mar, Hyperkalemia 276.7 [facility] [address] [id number] [place] [address] Mar, [facility] [address] [id number] [place] [address] Mar, [facility] [address] [id number] [place] [address] Mar, [facility] [address] [id number] [place] [address] Mar, [facility] [address] [id number] [place] [address] Mar, Anserine bursitis 726.61 [facility] [address] [id number] [place] [address] Mar, Asthma 493.90 and Hyperkalemia 276.7 [facility] [address] [id number] [place] [address] Mar, [facility] [address] [id number] [place] [address] February, [facility] [address] [place] [id number] [place] [address] February, [facility] [address] [facility] [id number] [place] [address] February, [facility] [address] [id number] [place] [address] February, [facility] [address] [id number] [place] [address] February, [facility] [address] [id number] [place] [address] February, [facility] [address] [id number] [place] [address] February, [facility] [address] [id number] [place] [address] February, [facility] [address] [id number] [place] [address] February, [facility] [address] [id number] [place] [address] Jan, [facility] [address] [id number] [place] [address] Jan, [facility] [address] [id number] [place] [address] Dec, [facility] [address] [id number] [place] [address] Dec, [facility] [address] [id number] [place] [address] Dec, [facility] [address] [id number] [place] [address] Dec, [facility] [address] [id number] [place] [address] Dec, [facility] [address] [id number] [place] [address] Dec, [facility] [address] [id number] [place] [address] Dec, [facility] [address] [id number] [place] [address] Dec, [facility] [address] [id number] [place] [address] Dec, [facility] [address] [id number] [place] [address] Dec, [facility] [address] [id number] [place] [address] Dec, [facility] [address] [id number] [place] [address] Dec, [facility] [address] [id number] [place] [address] Dec, [facility] [address] [id number] [place] [address] Dec, [facility] [address] [id number] [place] [address] Nov, [facility] [address] [id number] [place] [address] Nov, [facility] [address] [id number] [place] [address] Nov, [facility] [address] [id number] [place] [address] Nov, [facility] [address] [id number] [place] [address] Nov, [facility] [address] [id number] [place] [address] Nov, [facility] [address] [id number] [place] [address] Oct, [facility] [address] [id number] [place] [address] Oct, [facility] [address] [id number] [place] [address] Oct, [facility] [address] [id number] [place] [address] Oct, [facility] [address] [id number] [place] [address] Oct, [facility] [address] [facility] [id number] [place] [address] Oct, [facility] [address] [id number] [place] [address] Sep, [facility] [address] [id number] [place] [address] Sep, [facility] [address] [id number] [place] [address] Sep, [facility] [address] [id number] [place] [address] Sep, [facility] [address] [id number] [place] [address] Sep, [facility] [address] [id number] [place] [address] Sep, [facility] [address] [id number] [place] [address] Aug, [facility] [address] [id number] [place] [address] Aug, [facility] [address] [id number] [place] [address] Aug, [facility] [address] [id number] [place] [address] Aug, [facility] [address] [id number] [place] [address] Aug, [facility] [address] [id number] [place] [address] Aug, [facility] [address] [id number] [place] [address] Jul, [facility] [address] [id number] [place] [address] Jul, [facility] [address] [facility] [id number] [place] [address] Jul, [facility] [address] [facility] [id number] [place] [address] Jul, [facility] [address] [facility] [id number] [place] [address] Jul, [facility] [address] [id number] [place] [address] Jul, [facility] [address] [facility] [id number] [place] [address] Jul, [facility] [address] [id number] [place] [address] Jul, [facility] [address] [id number] [place] [address] Jul, [facility] [address] [id number] [place] [address] Jul, [facility] [address] [id number] [place] [address] Jul, [facility] [address] [id number] [place] [address] Jun, [facility] [address] [id number] [place] [address] Jun, [facility] [address] [id number] [place] [address] Jun, [facility] [address] [id number] [place] [address] Jun, 2013 [facility] [address] [facility] [id number] [place] [address] Apr, [facility] [address] [id number] [place] [address] Apr, 2013 [facility] [address] [id number] [place] [address] Apr, [facility] [address] [id number] [place] [address] Apr, [facility] [address] [id number] [place] [address] Mar, [facility] [id number] [place] [address] Mar, [facility] [id number] [place] [address] Mar, [facility] [address] [address] Mar, [facility] [id number] [place] [address] Mar, [facility] [address] [address] Sep, [facility] [id number] [place] [address] Sep, [facility] [id number] [place] [address] Aug, IMMUNIZATIONS No Known Immunizations SOCIAL HISTORY Never Assessed REASON FOR VISIT Wound care Pako hernandez PLAN OF CARE Activity Details Follow Up 4 Weeks Reason:wound care VITAL SIGNS Height 62 in 2019-01-13 Weight 152.7 lbs 2019-01-13 Temperature 98.6 degrees Fahrenheit 2019-01-13 Heart Rate 58 bpm 2019-01-13 Respiratory Rate 20 2019-01-13 BMI 27.93 kg/m2 2019-01-13 Blood pressure systolic 140 mmHg 2019-01-13 Blood pressure diastolic 62 mmHg 2019-01-13 MEDICATIONS Medication Instructions Dosage Frequency Start Date End Date Duration S tatus Amitriptyline HCl 25 MG TAKE ONE TO THRE E TABLETS BY MOUTH AT BEDTIME NEEDED 30 Active NovoFine 32G X 6 MM USE WITH INSULIN PENS THREE TIMES A DAY Active Levemir FlexTouch 100 unit/mL (3 mL) Subcutaneous Once a day 10 Uni ts 24h 10 Jul, 2014 Active Oxycodone HCl 5 mg Orally every 6 hrs 1 tablet as needed 6h Dec, 28 days Active Zofran ODT 4 MG Orally every 8 hrs 1 tablet 8h 10 Active NovoFine 32 gauge USE WITH INSULIN PENS THREE TIMES A DAY 30 Active ProAir HFA 108 (90 Base) MCG/ACT Inhalation every 4 hrs 2 puffs as needed 4h 02 Mar, 2015 Not-Taking Diabetic Shoes wear with ambulation Sep, Active Accu-Chek Niru Plus - TEST BLOOD SUGAR THREE TIMES A DAY Active BD Insulin Syringe MicroFine 28G X 1/2 use with insulin 8h Jul, Active Leg Cramp Relief - as directed A ctive Blood Glucose Monitor System w/Device subcutaneously c heck blood sugars three times daily as directed Sep, Active Accu-Chek Soft Touch Lancets - subcutaneously 3 times a day as dire cted 8h Sep, 30 days Active Blood Glucose Test Test Strips subcutaneously 3 times a day chec k blood sugar 8h Nov, Active Wheelchair DX Non-healing right ankle fracture Jul, 014 Active Atenolol 25 MG TAKE TWO TABLETS BY MOUTH ONCE DAILY 30 Active MiraLax - Orally Once a day take 17 g mixed with 8 oz. water or juice by Oral route 1 time per day 24h Aug, Active Silvadene 1 % Externally Once a day 1 application to affected area 24h Apr, Not-Taking Stool Softener 100 MG Orally 2 times a day 1 capsule as needed 12h Active Furosemide 40 mg Orally Once a day 2 tablet 24h 30 Active Lancet Device - subcutaneously checks blood sugar three times da simi as directed Active Vitamin D 1000 UNIT Orally Once a day 5 tablet 24h Active Pantoprazole Sodium 40 MG TAKE ONE TABLET BY MOUTH ONCE DAILY 30 Active Accu-Chek Niru w/Device as directed Sep, lifetime Active Polyethylene Glycol 3350 - MIX 17 GRAMS (1 CAPFUL) IN 8 OUNCES OF WATER, JUICE, SODA, COFFEE OR TEA AND DRINK ONCE DAILY 31 Active Marie Contour Next Test - TEST BLOOD SUGAR THREE TIMES A DAY E11.9 30 Active Cinnamon 500 mg Orally Once a day 4 capsules 24h Active Calcium Acetate (Phos Binder) 667 MG Orally Three times a da y 2 tablets with meals 8h Active Amlodipine Besylate 10 MG TAKE ONE TABLET BY MOUTH ONCE DAILY 30 Active RESULTS No Results PROCEDURES No [...] V C oct 2016 Hospitalization History [place]neumonia [place] 06[place]2018 Hospitalization History fistula in left arm 07/2018
--- OUTSIDE RECORDS SUMMARY | 2020-04-01 19:26 | XMS REPORT ---
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 Name Role Phone OLYA WILLIS Unavailable PROBLEMS Type Condition ICD9-CM Code JIM25-MJ Code Onset Dates Condition S tatus SNOMED Code Problem Diabetes mellitus E11.9 Active 73 595372 Problem Hypertension I10 Active 0169230 3 Problem Paresthesias R20.2 Active 1683206 4 Problem Chronic kidney disease N18.9 Active 078965350 Problem Venous insufficiency I87.2 Active 70203071 Problem Diabetic polyneuropathy associated with type 2 d iabetes mellitus E11.42 Active 24608536 Problem Type 2 diabetes mellitus with diabetic autonomic (poly)neuropathy E11.43 Active 814458573 Problem Chronic skin ulcer with fat layer exposed L98.492 Active 82667084 Problem Chronic osteomyelitis of right foot with draining sinus M86.471 Active 584175431963819 Problem PAD (peripheral artery disease) I73.9 Active 426395942 Problem Gastroparesis K31.84 Active 799792 006 Problem Seasonal allergic rhinitis due to other allergic trigger J30.89 Active 389313340 Problem GERD (gastroesophageal reflux disease) K21.9 Active 102481521 Problem Type 2 diabetes mellitus with foot ulcer E11.621 Active 77909742218151 Problem 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 Active 410187008 Problem Pressure ulcer of unspecified heel, stage 4 L89.60 4 Active 173343745 Problem Unsteady gait R26.81 Active 814313 08 ALLERGIES No Information ENCOUNTERS Encounter Location Date Diagnosis [facility] [address] [facility] [id number] [address] [place] [id number] Jan, [facility] [address] [facility] [id number] [address] [place] [id number] Jan, [facility] [address] [id number] [address] [place] [id number] Jan, Chronic skin ulcer with fat layer exposed L98.492 [facility] [address] [id number] [address] [place] [id number] Dec, [facility] [address] [id number] [address] [place] [id number] Dec, [facility] [address] [id number] [address] [place] [id number] Dec, Chronic skin ulcer with fat layer exposed L98.492 [facility] [address] [id number] [address] [place] [id number] Dec, [facility] [address] [facility] [id number] [address] [place] [id number] Dec, Unsteady gait R26.81 [facility] [address] [facility] [id number] [address] [place] [id number] Dec, Chronic skin ulcer with fat layer exposed L98.492 ; PAD (peripheral artery disease) I73.9 ; Unsteady gait R26.81 and Weakness of both lower extremities R29.898 [facility] [address] [id number] [address] [place] [id number] Nov, [facility] [address] [id number] [address] [place] [id number] Nov, [facility] [address] [facility] [id number] [address] [place] [id number] Nov, [facility] [address] [facility] [id number] [address] [place] [id number] Nov, Chronic skin ulcer with fat layer exposed L98.492 [facility] [address] [facility] [id number] [address] [place] [id number] Oct, Chronic skin ulcer with fat layer exposed L98.492 [facility] [address] [facility] [id number] [address] [place] [id number] Oct, [facility] [address] [id number] [address] [place] [id number] Oct, [facility] [address] [id number] [address] [place] [id number] Sep, Chronic skin ulcer with fat layer exposed L98.492 and Unsteady gait R26.81 [facility] [address] [id number] [address] [place] [id number] Sep, [facility] [address] [id number] [address] [place] [id number] Sep, Chronic skin ulcer with fat layer exposed L98.492 [facility] [address] [id number] [address] [place] [id number] Aug, Chronic skin ulcer with fat layer exposed L98.492 [facility] [address] [id number] [address] [place] [id number] Aug, [facility] [address] [id number] [address] [place] [id number] Aug, Type 2 diabetes mellitus wit h foot ulcer E11.621 and Chronic skin ulcer with fat layer exposed L98.492 [facility] [address] [id number] [address] [place] [id number] Jul, Chronic skin ulcer with fat layer exposed L98.492 [facility] [address] [id number] [address] [place] [id number] Jul, [facility] [address] [id number] [address] [place] [id number] Jul, Chronic skin ulcer with fat layer exposed L98.492 [facility] [address] [id number] [address] [place] [id number] Jun, Chronic skin ulcer with fat layer exposed L98.492 [facility] [address] [id number] [address] [place] [id number] Jun, [facility] [address] [facility] [id number] [address] [place] [id number] Jun, Chronic skin ulcer with fat layer exposed L98.492 [facility] [address] [facility] [id number] [address] [place] [id number] May, Chronic skin ulcer with fat layer exposed L98.492 [facility] [address] [facility] [id number] [address] [place] [id number] May, [facility] [address] [facility] [id number] [address] [place] [id number] May, Chronic skin ulcer with fat layer exposed L98.492 [facility] [address] [facility] [id number] [address] [place] [id number] Apr, Chronic skin ulcer with fat layer exposed L98.492 [facility] [address] [facility] [id number] [address] [place] [id number] Apr, [address] [id number] [address] Apr, [facility] [address] [facility] [id number] [address] [place] [id number] Apr, Chronic skin ulcer with fat layer exposed L98.492 [facility] [address] [facility] [id number] [address] [place] [id number] Apr, Foot callus L84 and Nonheali ng wound of heel S91.309A [facility] [address] [facility] [id number] [address] [place] [id number] Apr, [address] [id number] [address] Mar, [facility] [address] [facility] [id number] [address] [place] [id number] Mar, Diabetes mellitus E11.9 and Chronic skin ulcer with fat layer exposed L98.492 [facility] [address] [facility] [id number] [address] [place] [id number] Mar, Chronic skin ulcer with fat layer exposed L98.492 [facility] [address] [id number] [address] [place] [id number] Mar, [facility] [address] [id number] [address] [place] [id number] February, Chronic skin ulcer with fat layer exposed L98.492 and Encounter for medication monitoring Z51.81 [facility] [address] [id number] [address] [place] [id number] February, [facility] [address] [id number] [address] [place] [id number] February, Encounter for medication mon itoring Z51.81 [facility] [address] [id number] [address] [place] [id number] February, [facility] [address] [id number] [address] [place] [id number] February, [facility] [address] [id number] [address] [place] [id number] February, [facility] [address] [id number] [address] [place] [id number] Jan, Chronic skin ulcer with fat layer exposed L98.492 [facility] [address] [id number] [address] [place] [id number] Jan, [facility] [address] [id number] [address] [place] [id number] Dec, [facility] [address] [id number] [address] [place] [id number] Dec, Diabetic polyneuropathy asso ciated with type 2 diabetes mellitus E11.42 and PAD (peripheral artery disease) I73.9 [facility] [address] [id number] [address] [place] [id number] Dec, Chronic skin ulcer with fat layer exposed L98.492 [facility] [address] [id number] [address] [place] [id number] Dec, [facility] [address] [id number] [address] [place] [id number] Nov, [facility] [address] [id number] [address] [place] [id number] Nov, Skin ulcer of right foot wit h fat layer exposed L97.512 [facility] [address] [id number] [address] [place] [id number] Oct, [facility] [address] [id number] [address] [place] [id number] Oct, Skin ulcer of right foot wit h fat layer exposed L97.512 [facility] [address] [id number] [address] [place] [id number] Sep, Diabetes mellitus E11.9 [facility] [address] [id number] [address] [place] [id number] Sep, [facility] [address] [id number] [address] [place] [id number] Sep, [facility] [address] [id number] [address] [place] [id number] Sep, [facility] [address] [id number] [address] [place] [id number] Sep, Type 2 diabetes mellitus wit h foot ulcer E11.621 and Skin ulcer of right foot with fat layer exposed L97.512 [facility] [address] [id number] [address] [place] [id number] Sep, Diabetes mellitus E11.9 [facility] [address] [id number] [address] [place] [id number] Sep, [facility] [address] [id number] [address] [place] [id number] Aug, [facility] [address] [id number] [address] [place] [id number] Aug, [facility] [address] [id number] [address] [place] [id number] Aug, 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 [facility] [address] [id number] [address] [place] [id number] Aug, [facility] [address] [id number] [address] [place] [id number] Aug, [facility] [address] [id number] [address] [place] [id number] Aug, Bronchitis J40 [facility] [address] [id number] [address] [place] [id number] Aug, [facility] [address] [id number] [address] [place] [id number] Jul, [facility] [address] [id number] [address] [place] [id number] Jul, Chronic skin ulcer with fat layer exposed L98.492 [facility] [address] [id number] [address] [place] [id number] Jul, 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 [facility] [address] [id number] [address] [place] [id number] Jun, [facility] [address] [id number] [address] [place] [id number] Jun, [facility] [address] [id number] [address] [place] [id number] May, [facility] [address] [id number] [address] [place] [id number] May, Chronic skin ulcer with fat layer exposed L98.492 [facility] [address] [id number] [address] [place] [id number] Apr, [facility] [address] [id number] [address] [place] [id number] Apr, Type 2 diabetes mellitus wit h foot ulcer E11.621 and Unsteady gait R26.81 [facility] [address] [id number] [address] [place] [id number] Mar, Decubitus ulcer of right mariana l, stage 3 L89.613 [place] [address] [id number] [address] [place] [id number] Mar, [place] [address] [id number] [address] [place] [id number] Mar, Pressure ulcer of unspecifie d heel, stage 4 L89.604 and Type 2 diabetes mellitus with foot ulcer E11.621 [place] [address] [id number] [address] [place] [id number] Mar, Encounter for medication mon itoring Z51.81 [place] [address] [facility] [id number] [address] [place] [id number] Mar, Type 2 diabetes mellitus wit h foot ulcer E11.621 and Non-pressure chronic ulcer of right heel and midfoot with unspecified severity L97.419 [place] [address] [facility] [id number] [address] [place] [id number] February, [place] [address] [facility] [id number] [address] [place] [id number] Jan, Right ankle pain M25.571 [place] [address] [facility] [id number] [address] [place] [id number] Dec, Right ankle pain M25.571 [place] [address] [id number] [address] [place] [id number] Dec, [place] [address] [facility] [id number] [address] [place] [id number] Dec, [facility] [address] [id number] [address] [place] [id number] Dec, Right ankle pain M25.571 [place] [address] [id number] [address] [place] [id number] Dec, Chronic skin ulcer with fat layer exposed L98.492 ; Type 2 diabetes mellitus with diabetic autonomic (poly)neuropathy E11.43 and Hypertension I10 [facility] [address] [facility] [id number] [address] [place] [id number] Nov, [facility] [address] [facility] [id number] [address] [place] [id number] Nov, [facility] [address] [facility] [id number] [address] [place] [id number] Nov, [facility] [address] [facility] [id number] [address] [place] [id number] Nov, Right ankle pain M25.571 and Chronic osteomyelitis of right foot with draining sinus M86.471 [facility] [address] [place] [id number] [address] [place] [id number] Oct, Right ankle pain M25.571 [facility] [address] [facility] [id number] [address] [place] [id number] Oct, [facility] [address] [place] [id number] [address] [place] [id number] Sep, Diabetes mellitus E11.9 [facility] [address] [facility] [id number] [address] [place] [id number] Sep, Diabetic polyneuropathy asso ciated with type 2 diabetes mellitus E11.42 and Venous insufficiency I87.2 [facility] [address] [place] [id number] [address] [place] [id number] Sep, Right ankle pain M25.571 [facility] [address] [place] [id number] [address] [place] [id number] Aug, Right ankle pain M25.571 [facility] [address] [facility] [id number] [address] [place] [id number] Aug, Chronic osteomyelitis of rig ht foot with draining sinus M86.471 [facility] [address] [id number] [address] [place] [id number] Aug, [facility] [address] [id number] [address] [place] [id number] Aug, [facility] [address] [facility] [id number] [address] [place] [id number] Aug, Chronic osteomyelitis of rig ht foot with draining sinus M86.471 [facility] [address] [id number] [address] [place] [id number] Jul, [facility] [address] [id number] [address] [place] [id number] Jul, [facility] [address] [facility] [id number] [address] [place] [id number] Jul, Chronic kidney disease N18.9 [facility] [address] [facility] [id number] [address] [place] [id number] Jul, Right ankle pain M25.571 [facility] [address] [facility] [id number] [address] [place] [id number] Jul, Non-healing ulcer of right f oot, unspecified ulcer stage L97.519 [place] [id number] [facility] [id number] [address] [place] [id number] Jul, Chronic skin ulcer with fat layer exposed L98.492 [place] [address] [facility] [id number] [address] [place] [id number] Jul, Deformity of right ankle nitza nt M21.961 [facility] [address] [facility] [id number] [address] [place] [id number] Jun, [facility] [address] [facility] [id number] [address] [place] [id number] Jun, Diabetes mellitus E11.9 ; Sk in ulcer of right foot with fat layer exposed L97.512 and Encounter for immunization Z23 [facility] [address] [facility] [id number] [address] [place] [id number] Jun, Right ankle pain M25.571 [facility] [address] [facility] [id number] [address] [place] [id number] May, Right ankle pain M25.571 [facility] [address] [facility] [id number] [address] [place] [id number] Apr, Right ankle pain M25.571 [facility] [address] [facility] [id number] [address] [place] [id number] Mar, Right ankle pain M25.571 [facility] [address] [id number] [address] [place] [id number] Mar, [facility] [address] [facility] [id number] [address] [place] [id number] February, Diabetes mellitus E11.9 and Diabetic polyneuropathy associated with type 2 diabetes mellitus E11.42 [facility] [address] [place] [id number] [address] [place] [id number] February, Hyperkalemia E87.5 [facility] [address] [facility] [id number] [address] [place] [id number] February, Right ankle pain M25.571 [facility] [address] [facility] [id number] [address] [place] [id number] Jan, Right ankle pain M25.571 [facility] [address] [facility] [id number] [address] [place] [id number] Dec, Right ankle pain M25.571 [facility] [address] [facility] [id number] [address] [place] [id number] Dec, Right ankle pain M25.571 [facility] [address] [facility] [id number] [address] [place] [id number] Nov, [facility] [address] [facility] [id number] [address] [place] [id number] Nov, Diabetes mellitus E11.9 ; Hy pertension I10 ; Gastroparesis K31.84 and Type 2 diabetes mellitus with diabetic autonomic (poly)neuropathy E11.43 [facility] [address] [facility] [id number] [address] [place] [id number] Nov, Right ankle pain M25.571 [facility] [address] [facility] [id number] [address] [place] [id number] Oct, Right ankle pain M25.571 [facility] [address] [facility] [id number] [address] [place] [id number] Oct, [facility] [address] [facility] [id number] [address] [place] [phone] Oct, [facility] [address] [place] [id number] [place] [id number] Sep, [place] [address] [place] [id number] [place] [phone] Sep, Hypertension I10 [facility] [address] [place] [id number] [place] [id number] Sep, Chronic kidney disease N18.9 ; Right ankle pain M25.571 and GERD (gastroesophageal reflux disease) K21.9 [facility] [address] [place] [id number] [place] [id number] Jul, [facility] [address] [place] [id number] [place] [id number] Jul, Encounter for immunization Z 23 ; Venous insufficiency I87.2 and Diabetic polyneuropathy associated with type 2 diabetes mellitus E11.42 [facility] [address] [facility] [id number] [address] [place] [id number] Jul, [facility] [address] [id number] [address] [place] [id number] Jul, Diabetes mellitus E11.9 [facility] [address] [facility] [id number] [address] [place] [id number] May, [facility] [address] [id number] [address] [place] [id number] Apr, [facility] [address] [id number] [address] [place] [id number] Mar, Right ankle pain M25.571 [facility] [address] [id number] [address] [place] [id number] Mar, [facility] [address] [id number] [address] [place] [id number] February, Paresthesias R20.2 [facility] [address] [id number] [address] [place] [id number] February, [facility] [address] [id number] [address] [place] [id number] February, 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 [facility] [address] [id number] [address] [place] [id number] February, Diabetes mellitus E11.9 [facility] [address] [id number] [address] [place] [id number] February, [facility] [address] [id number] [address] [place] [id number] February, Polyneuropathy in diabetes 3 57.2 and Paresthesias R20.2 [facility] [address] [id number] [address] [place] [id number] February, [facility] [address] [id number] [address] [place] [id number] February, [facility] [address] [id number] [address] [place] [id number] February, [facility] [address] [id number] [address] [place] [id number] February, Diabetes mellitus E11.9 [facility] [address] [id number] [address] [place] [id number] February, [facility] [address] [id number] [address] [place] [id number] February, Hyperkalemia E87.5 [facility] [address] [facility] [id number] [address] [place] [id number] Jan, Hypertension I10 [facility] [address] [facility] [id number] [address] [place] [id number] Jan, Insomnia G47.00 [facility] [address] [facility] [id number] [address] [place] [id number] Jan, [facility] [address] [facility] [id number] [address] [place] [id number] Jan, [facility] [address] [facility] [id number] [address] [place] [id number] Jan, [facility] [address] [facility] [id number] [address] [place] [id number] Dec, Right ankle pain M25.571 [facility] [address] [id number] [address] [place] [id number] Dec, GERD (gastroesophageal reflu x disease) K21.9 [facility] [address] [facility] [id number] [address] [place] [id number] Dec, Insomnia G47.00 [facility] [address] [facility] [id number] [address] [place] [id number] Dec, Hypertension I10 and Hyperka lemia 276.7 [facility] [address] [facility] [id number] [address] [place] [id number] Dec, Chronic kidney disease N18.9 [facility] [address] [facility] [id number] [address] [place] [id number] Dec, [facility] [address] [facility] [id number] [address] [place] [id number] Dec, Hyperkalemia E87.5 [facility] [address] [facility] [id number] [address] [place] [id number] Dec, Chronic kidney disease N18.9 and Right ankle pain M25.571 [facility] [address] [id number] [address] [place] [id number] 11 Nov, 2015 GERD (gastroesophageal reflu x disease) K21.9 [facility] [address] [id number] [address] [place] [id number] Nov, Right ankle pain M25.571 [facility] [address] [id number] [address] [place] [id number] Nov, Diabetes mellitus E11.9 [facility] [address] [id number] [address] [place] [id number] Oct, [facility] [address] [id number] [address] [place] [id number] Oct, [facility] [address] [id number] [address] [place] [id number] Oct, [facility] [address] [id number] [address] [place] [id number] Oct, Hyperkalemia E87.5 [facility] [address] [id number] [address] [place] [id number] Oct, [facility] [address] [id number] [address] [place] [id number] Oct, Hyperkalemia E87.5 [facility] [address] [id number] [address] [place] [id number] Sep, [facility] [address] [id number] [address] [place] [id number] Sep, [facility] [address] [id number] [address] [place] [id number] Sep, [facility] [address] [id number] [address] [place] [id number] Sep, [facility] [address] [id number] [address] [place] [id number] Sep, Right ankle pain M25.571 [facility] [address] [facility] [id number] [address] [place] [id number] Aug, Chronic kidney disease N18.9 [facility] [address] [facility] [id number] [address] [place] [id number] Aug, [facility] [address] [facility] [id number] [address] [place] [id number] Aug, Hyperkalemia E87.5 [facility] [address] [facility] [id number] [address] [place] [id number] Aug, [facility] [address] [facility] [id number] [address] [place] [id number] Jul, [facility] [address] [facility] [id number] [address] [place] [id number] Jul, [facility] [address] [id number] [address] [place] [id number] Jul, [facility] [address] [facility] [id number] [address] [place] [id number] Jul, Diabetes mellitus E11.9 ; En counter for immunization Z23 ; Hypertension I10 and Hyperkalemia E87.5 [facility] [address] [facility] [id number] [address] [place] [id number] Jul, [facility] [address] [facility] [id number] [address] [place] [id number] Jul, Hyperkalemia E87.5 [facility] [address] [facility] [id number] [address] [place] [id number] Jul, Hyperkalemia E87.5 [facility] [address] [facility] [id number] [address] [place] [id number] Jun, [facility] [address] [facility] [id number] [address] [place] [id number] Jun, [facility] [address] [facility] [id number] [address] [place] [id number] 15 Jun, 2015 [facility] [address] [id number] [address] [place] [address], [place] [id number] Jun, [facility] [address] [id number] [address] [place] [address], [place] [id number] May, [facility] [address] [id number] [address] [place] [address], [place] [address] May, [facility] [address] [id number] [address] [place] [address], [place] [id number] May, [facility] [address] [id number] [address] [place] [address], [place] [id number] May, Hyperkalemia 276.7 [facility] [address] [id number] [address] [place] [address], [place] [id number] May, [facility] [address] [id number] [address] [place] [address], [place] [id number] Apr, Hyperkalemia 276.7 [facility] [address] [id number] [address] [place] [address], [place] [id number] Apr, [facility] [address] [id number] [address] [place] [address], [place] [id number] Apr, [facility] [address] [id number] [address] [place] [address], [place] [id number] Apr, [facility] [address] [id number] [address] [place] [address], [place] [id number] Apr, [facility] [address] [id number] [address] [place] [address], [place] [id number] 14 Apr, 2015 Hyperkalemia 276.7 [facility] [address] [id number] [address] [place] [address], [place] [id number] Apr, [facility] [address] [id number] [address] [place] [address], [place] [id number] Apr, [facility] [address] [id number] [address] [place] [address] [id number] Mar, [facility] [address] [id number] [address] [place] [id number] Mar, Hyperkalemia 276.7 [facility] [address] [id number] [address] [place] [id number] Mar, Hyperkalemia 276.7 [facility] [address] [id number] [address] [place] [id number] Mar, [facility] [address] [id number] [address] [place] [id number] Mar, [facility] [address] [id number] [address] [place] [id number] Mar, [facility] [address] [id number] [address] [place] [id number] Mar, [facility] [address] [id number] [address] [place] [id number] Mar, Anserine bursitis 726.61 [facility] [address] [id number] [address] [place] [id number] Mar, Asthma 493.90 and Hyperkalem ia 276.7 [facility] [address] [id number] [address] [place] [id number] Mar, [facility] [address] [id number] [address] [place] [id number] February, [facility] [address] [id number] [address] [place] [id number] February, [facility] [address] [id number] [address] [place] [id number] February, [facility] [address] [id number] [address] [place] [id number] February, [facility] [address] [id number] [address] [place] [id number] February, [facility] [address] [id number] [address] [place] [address], [place] [id number] February, [facility] [address] [id number] [address] [place] [address], [place] [id number] February, [facility] [address] [id number] [address] [place] [address], [place] [id number] February, [facility] [address] [id number] [address] [place] [address], [place] [id number] February, [facility] [address] [id number] [address] [place] [address], [place] [id number] Jan, [facility] [address] [id number] [address] [place] [address], [place] [id number] Jan, [facility] [address] [id number] [address] [place] [address], [place] [id number] Dec, [facility] [address] [id number] [address] [place] [address], [place] [id number] Dec, [facility] [address] [id number] [address] [place] [address], [place] [id number] Dec, [facility] [address] [id number] [address] [place] [address], [place] [id number] Dec, [facility] [address] [id number] [address] [place] [address], [place] [id number] Dec, [facility] [address] [id number] [address] [place] [address], [place] [id number] Dec, [facility] [address] [id number] [address] [place] [address], [place] [id number] Dec, [facility] [address] [id number] [address] [place] [address], [place] [id number] Dec, [facility] [address] [id number] [address] [place] [address], [place] [id number] Dec, [facility] [address] [id number] [address] [place] [address], [place] [id number] Dec, [facility] [address] [id number] [address] [place] [address], [place] [address] Dec, [facility] [address] [id number] [address] [place] [address], [place] [id number] Dec, [facility] [address] [id number] [address] [place] [address], [place] [id number] Dec, [facility] [address] [id number] [address] [place] [address], [place] [id number] Dec, [facility] [address] [id number] [address] [place] [address], [place] [id number] Nov, [facility] [address] [id number] [address] [place] [address], [place] [address] Nov, [facility] [address] [id number] [address] [place] [address], [place] [id number] Nov, [facility] [address] [id number] [address] [place] [address], [place] [id number] Nov, [facility] [address] [id number] [address] [place] [address], [place] [id number] Nov, [facility] [address] [id number] [address] [place] [address], [place] [id number] Nov, [facility] [address] [id number] [address] [place] [address], [place] [id number] Oct, [facility] [address] [id number] [address] [place] [address], [place] [id number] Oct, [facility] [address] [id number] [address] [place] [address], [place] [address] Oct, [facility] [address] [id number] [address] [place] [address], [place] [address] Oct, [facility] [address] [id number] [address] [place] [address], [place] [id number] Oct, [facility] [address] [id number] [address] [place] [address], [place] [address] Oct, [facility] [address] [id number] [address] [place] [address], [place] [address] Sep, [facility] [address] [id number] [address] [place] [address], [place] [address] Sep, [facility] [address] [id number] [address] [place] [address], [place] [address] Sep, [facility] [address] [id number] [address] [place] [address], [place] [id number] Sep, [facility] [address] [id number] [address] [place] [address], [place] [address] Sep, [facility] [address] [id number] [address] [place] [address], [place] [id number] Sep, [facility] [address] [id number] [address] [place] [address], [place] [address] Aug, [facility] [address] [id number] [address] [place] [address], [place] [address] Aug, [facility] [address] [id number] [address] [place] [address], [place] [address] Aug, [facility] [address] [id number] [address] [place] [address], [place] [id number] Aug, [facility] [address] [id number] [address] [place] [address], [place] [id number] Aug, [facility] [address] [id number] [address] [place] [address], [place] [address] Aug, [facility] [address] [id number] [address] [place] [address], [place] [address] Jul, [facility] [address] [id number] [address] [place] [address], [place] [address] Jul, [facility] [address] [id number] [address] [place] [address], [place] [address] Jul, [facility] [address] [id number] [address] [place] [address], [place] [address] Jul, [facility] [address] [id number] [address] [place] [address], [place] [address] Jul, [facility] [address] [id number] [address] [place] [address], [place] [address] Jul, [facility] [address] [id number] [address] [place] [address], [place] [address] Jul, [facility] [address] [id number] [address] [place] [address], [place] [address] Jul, [facility] [address] [id number] [address] [place] [address], [place] [address] Jul, [facility] [address] [id number] [address] [place] [address], [place] [id number] Jul, [facility] [address] [id number] [address] [place] [address], [place] [address] Jul, [facility] [address] [id number] [address] [place] [address], [place] [address] Jun, [facility] [address] [id number] [address] [place] [address], [place] [address] Jun, [facility] [address] [id number] [address] [place] [address], [place] [address] Jun, [facility] [address] [id number] [address] [place] [address], [place] [id number] Jun, [facility] [address] [id number] [address] [place] [address], [place] [id number] Apr, [facility] [address] [id number] [address] [place] [address], [place] [id number] Apr, [facility] [address] [id number] [address] [place] [address], [place] [id number] Apr, [facility] [address] [id number] [address] [place] [id number] Apr, [facility] [address] [id number] [address] [place] [id number] Mar, [facility] [address] [id number] [address] [place] [id number] Mar, [facility] [address] [id number] [address] [place] [id number] Mar, [facility] [address] [id number] [address] [place] [id number] Mar, [facility] [address] [id number] [address] [place] [id number] Mar, [facility] [address] [id number] [address] [place] [id number] Sep, [facility] [address] [id number] [address] [place] [id number] Sep, [facility] [address] [id number] [address] [place] [id number] Aug, IMMUNIZATIONS No Known Immunizations SOCIAL HISTORY [...] V C oct 2016 Hospitalization History Pneumonia [place] [facility] 06/2018 Hospitalization History fistula in left arm 07/2018
--- OUTSIDE RECORDS SUMMARY | 2020-04-01 19:27 | XMS REPORT ---
Author Author Josephine WILLIS Organization [facility] Address [address] [place] [address] Care Team Providers Care Insights Manager Name Role Phone OLYA WILLIS Unavailable PROBLEMS Type Condition ICD9-CM Code BHY62-ML Code Onset Dates Condition S tatus SNOMED Code Problem Diabetes mellitus E11.9 Active 73 965180 Problem Hypertension I10 Active 1454935 3 Problem Paresthesias R20.2 Active 4896105 4 Problem Chronic kidney disease N18.9 Active 930079139 Problem Venous insufficiency I87.2 Active 26087384 Problem Diabetic polyneuropathy associated with type 2 d iabetes mellitus E11.42 Active 18272151 Problem Type 2 diabetes mellitus with diabetic autonomic (poly)neuropathy E11.43 Active 310512806 Problem Chronic skin ulcer with fat layer exposed L98.492 Active 10573438 Problem Chronic osteomyelitis of right foot with draining sinus M86.471 Active [id number] Problem PAD (peripheral artery disease) I73.9 Active 489658964 Problem Gastroparesis K31.84 Active 512321 006 Problem Seasonal allergic rhinitis due to other allergic trigger J30.89 Active 376001914 Problem GERD (gastroesophageal reflux disease) K21.9 Active 263190707 Problem Type 2 diabetes mellitus with foot ulcer E11.621 Active [id number] Problem 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 Active 795636192 Problem Pressure ulcer of unspecified heel, stage 4 L89.60 4 Active 379024352 Problem Unsteady gait R26.81 Active 611937 08 ALLERGIES No Information ENCOUNTERS Encounter Location Date Diagnosis [facility] [address] [facility] [id number] [address] [place] [phone] Jul, [facility] [address] [facility] [id number] [address] [place] [phone] Jun, Chronic skin ulcer with fat layer exposed L98.492 [facility] [address] [id number] [address] [place] [id number] Jun, [facility] [address] [id number] [address] [place] [address] Jun, Chronic skin ulcer with fat layer exposed L98.492 [facility] [address] [id number] [address] [place] [phone] May, Chronic skin ulcer with fat layer exposed L98.492 [facility] [address] [id number] [address] [place] [phone] May, [facility] [address] [id number] [address] [place] [address] May, Chronic skin ulcer with fat layer exposed L98.492 [facility] [address] [id number] [address] [place] [phone] Apr, Chronic skin ulcer with fat layer exposed L98.492 [facility] [address] [id number] [address] [place] [phone] Apr, [address] [phone] Apr, [facility] [address] [id number] [address] [place] [address] Apr, Chronic skin ulcer with fat layer exposed L98.492 [facility] [address] [id number] [address] [place] [phone] Apr, Foot callus L84 and Nonheali ng wound of heel S91.309A [facility] [address] [id number] [address] [place] [address] Apr, [address] [phone] Mar, [facility] [address] [id number] [address] [place] [address] Mar, Diabetes mellitus E11.9 and Chronic skin ulcer with fat layer exposed L98.492 [facility] [address] [id number] [address] [place] [id number] Mar, Chronic skin ulcer with fat layer exposed L98.492 [facility] [address] [id number] [address] [place] [phone] Mar, [facility] [address] [id number] [address] [place] [id number] February, Chronic skin ulcer with fat layer exposed L98.492 and Encounter for medication monitoring Z51.81 [facility] [address] [id number] [address] [place] [phone] February, [facility] [address] [id number] [address] [place] [id number] February, Encounter for medication mon itoring Z51.81 [facility] [address] [id number] [address] [place] [id number] February, [facility] [address] [id number] [address] [place] [id number] February, [facility] [address] [id number] [address] [place] [id number] February, [facility] [address] [id number] [address] [place] [id number] Jan, Chronic skin ulcer with fat layer exposed L98.492 [facility] [address] [id number] [address] [place] [id number] Jan, [facility] [address] [id number] [address] [place] [phone] Dec, [facility] [address] [id number] [address] [place] [phone] Dec, Diabetic polyneuropathy asso ciated with type 2 diabetes mellitus E11.42 and PAD (peripheral artery disease) I73.9 [facility] [address] [id number] [address] [place] [id number] Dec, Chronic skin ulcer with fat layer exposed L98.492 [facility] [address] [id number] [address] [place] [id number] Dec, [facility] [address] [id number] [address] [place] [phone] Nov, [facility] [address] [id number] [address] [place] [address] Nov, Skin ulcer of right foot wit h fat layer exposed L97.512 [facility] [address] [id number] [address] [place] [phone] Oct, [facility] [address] [id number] [address] [place] [id number] Oct, Skin ulcer of right foot wit h fat layer exposed L97.512 [facility] [address] [id number] [address] [place] [phone] Sep, Diabetes mellitus E11.9 [facility] [address] [id number] [address] [place] [id number] Sep, [facility] [address] [id number] [address] [place] [phone] Sep, [facility] [address] [id number] [address] [place] [address] Sep, [facility] [address] [id number] [address] [place] [id number] 14 Sep, 2018 Type 2 diabetes mellitus wit h foot ulcer E11.621 and Skin ulcer of right foot with fat layer exposed L97.512 [facility] [address] [id number] [address] [place] [phone] Sep, Diabetes mellitus E11.9 [facility] [address] [id number] [address] [place] [phone] 07 Sep, 2018 [facility] [address] [id number] [address] [place] [phone] Aug, [facility] [address] [id number] [address] [place] [phone] Aug, [facility] [address] [id number] [address] [place] [id number] Aug, 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 [facility] [address] [id number] [address] [place] [phone] Aug, [facility] [address] [id number] [address] [place] [phone] Aug, [facility] [address] [id number] [address] [place] [phone] Aug, Bronchitis J40 [facility] [address] [facility] [id number] [address] [place] [phone] Aug, [facility] [address] [id number] [address] [place] [address] Jul, [facility] [address] [id number] [address] [place] [address] Jul, Chronic skin ulcer with fat layer exposed L98.492 [facility] [address] [id number] [address] [place] [id number] Jul, 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 [facility] [address] [id number] [address] [place] [address] Jun, [facility] [address] [id number] [address] [place] [phone] Jun, [facility] [address] [id number] [address] [place] [id number] May, [facility] [address] [facility] [id number] [address] [place] [address] May, Chronic skin ulcer with fat layer exposed L98.492 [facility] [address] [facility] [id number] [address] [place] [id number] Apr, [place] [address] [id number] [address] [place] [id number] Apr, Type 2 diabetes mellitus wit h foot ulcer E11.621 and Unsteady gait R26.81 [place] [address] [facility] [id number] [address] [place] [id number] Mar, Decubitus ulcer of right mariana l, stage 3 L89.613 [place] [address] [facility] [id number] [address] [place] [phone] Mar, [place] [address] [facility] [id number] [address] [place] [id number] Mar, Pressure ulcer of unspecifie d heel, stage 4 L89.604 and Type 2 diabetes mellitus with foot ulcer E11.621 [place] [address] [place] [id number] [address] [place] [id number] Mar, Encounter for medication mon itoring Z51.81 [place] [address] [facility] [id number] [address] [place] [phone] Mar, Type 2 diabetes mellitus wit h foot ulcer E11.621 and Non-pressure chronic ulcer of right heel and midfoot with unspecified severity L97.419 [place] [address] [facility] [id number] [address] [place] [address] February, [place] [address] [facility] [id number] [address] [place] [phone] Jan, Right ankle pain M25.571 [place] [address] [id number] [address] [place] [id number] Dec, Right ankle pain M25.571 [place] [address] [facility] [id number] [address] [place] [phone] Dec, [place] [address] [facility] [id number] [address] [place] [phone] Dec, [place] [address] [facility] [id number] [address] [place] [id number] Dec, Right ankle pain M25.571 [facility] [address] [facility] [id number] [address] [place] [address] Dec, Chronic skin ulcer with fat layer exposed L98.492 ; Type 2 diabetes mellitus with diabetic autonomic (poly)neuropathy E11.[address] [facility] [address] [facility] [id number] [address] [place] [phone] Nov, [facility] [address] [id number] [address] [place] [id number] Nov, [facility] [address] [facility] [id number] [address] [place] [id number] Nov, [facility] [address] [facility] [id number] [address] [place] [phone] Nov, Right ankle pain M25.571 and Chronic osteomyelitis of right foot with draining sinus M86.471 [facility] [address] [facility] [id number] [address] [place] [phone] Oct, Right ankle pain M25.571 [place] [address] [place] [id number] [address] [place] [phone] Oct, [facility] [address] [facility] [id number] [address] [place] [id number] Sep, Diabetes mellitus E11.9 [facility] [address] [facility] [id number] [address] [place] [id number] Sep, Diabetic polyneuropathy asso ciated with type 2 diabetes mellitus E11.42 [address]87.2 [facility] [address] [facility] [id number] [address] [place] [address] Sep, Right ankle pain M25.571 [facility] [address] [facility] [id number] [address] [place] [id number] Aug, Right ankle pain M25.571 [facility] [address] [facility] [id number] [address] [place] [phone] Aug, Chronic osteomyelitis of rig ht foot with draining sinus M86.471 [facility] [address] [id number] [address] [place] [phone] Aug, [facility] [address] [id number] [address] [place] [phone] Aug, [facility] [address] [id number] [address] [place] [phone] Aug, Chronic osteomyelitis of rig ht foot with draining sinus M86.471 [facility] [address] [id number] [address] [place] [id number] Jul, [facility] [address] [id number] [address] [place] [phone] Jul, [facility] [address] [id number] [address] [place] [id number] Jul, Chronic kidney disease N18.9 [facility] [address] [id number] [address] [place] [id number] Jul, Right ankle pain M25.571 [facility] [address] [id number] [address] [place] [id number] Jul, Non-healing ulcer of right f oot, unspecified ulcer stage L97.519 [facility] [address] [id number] [address] [place] [phone] Jul, Chronic skin ulcer with fat layer exposed L98.492 [facility] [address] [id number] [address] [place] [address] Jul, Deformity of right ankle nitza nt M21.961 [facility] [address] [id number] [address] [place] [phone] Jun, [facility] [address] [id number] [address] [place] [address] Jun, Diabetes mellitus E11.9 ; Sk in ulcer of right foot with fat layer exposed L97.512 and Encounter for immunization Z23 [facility] [address] [id number] [address] [place] [address] Jun, Right ankle pain M25.571 [facility] [address] [id number] [address] [place] [address] May, Right ankle pain M25.571 [facility] [address] [id number] [address] [place] [address] Apr, Right ankle pain M25.571 [facility] [address] [id number] [address] [place] [phone] Mar, Right ankle pain M25.571 [facility] [address] [id number] [address] [place] [phone] Mar, [facility] [address] [facility] [id number] [address] [place] [address] February, Diabetes mellitus E11.9 and Diabetic polyneuropathy associated with type [address] [facility] [address] [id number] [address] [place] [id number] February, Hyperkalemia E87.5 [facility] [address] [facility] [id number] [address] [place] [address] February, Right ankle pain M25.571 [facility] [address] [facility] [id number] [address] [place] [phone] Jan, Right ankle pain M25.571 [facility] [address] [id number] [address] [place] [address] Dec, Right ankle pain M25.571 [facility] [address] [facility] [id number] [address] [place] [address] Dec, Right ankle pain M25.571 [facility] [address] [facility] [id number] [address] [place] [address] Nov, [facility] [address] [facility] [id number] [address] [place] [id number] 07 Nov, 2016 Diabetes mellitus E11.9 ; Hy pertension I10 ; Gastroparesis K31.84 and Type 2 diabetes mellitus with diabetic autonomic (poly)neuropathy E11.43 [facility] [address] [facility] [id number] [address] [place] [phone] 03 Nov, 2016 Right ankle pain M25.571 [facility] [address] [facility] [id number] [address] [place] [address] Oct, Right ankle pain M25.571 [facility] [address] [facility] [id number] [address] [place] [phone] Oct, [facility] [address] [place] [id number] [place] [phone] Oct, [place] [address] [place] [id number] [address] [place] [phone] Sep, [place] [address] [place] [id number] [place] [phone] Sep, Hypertension I10 [place] [address] [place] [id number] [address] [place] [phone] Sep, Chronic kidney disease N18.9 ; Right ankle pain M25.571 and GERD (gastroesophageal reflux disease) K21.9 [place] [address] [place] [id number] [address] [place] [phone] Jul, [facility] [address] [place] [id number] [address] [place] [phone] Jul, Encounter for immunization Z 23 ; Venous insufficiency I87.2 and Diabetic polyneuropathy associated with type [address] [facility] [address] [place] [id number] [address] [place] [id number] Jul, [place] [address] [place] [id number] [address] [place] [phone] 04 Jul, [address] [facility] [address] [place] [id number] [address] [place] [phone] May, [facility] [address] [id number] [address] [place] [phone] Apr, [facility] [address] [id number] [address] [place] [address] Mar, Right ankle pain M25.571 [facility] [address] [id number] [address] [place] [phone] Mar, [facility] [address] [id number] [address] [place] [phone] February, Paresthesias R20.2 [facility] [address] [id number] [address] [place] [phone] February, 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 [address] [id number] [address] [place] [phone] February, Diabetes mellitus E11.9 [facility] [address] [id number] [address] [place] [phone] February, [facility] [address] [id number] [address] [place] [id number] February, Polyneuropathy in diabetes 3 57.[address] [facility] [address] [id number] [address] [place] [phone] February, [facility] [address] [id number] [address] [place] [phone] February, [facility] [address] [id number] [address] [place] [phone] February, [facility] [address] [id number] [address] [place] [phone] February, Diabetes mellitus E11.9 [facility] [address] [id number] [address] [place] [phone] February, [facility] [address] [facility] [id number] [address] [place] [phone] February, Hyperkalemia E87.5 [facility] [address] [facility] [id number] [address] [place] [phone] Jan, Hypertension I10 [facility] [address] [facility] [id number] [address] [place] [phone] Jan, Insomnia G47.00 [facility] [address] [facility] [id number] [address] [place] [phone] Jan, [facility] [address] [facility] [id number] [address] [place] [phone] Jan, [facility] [address] [facility] [id number] [address] [place] [phone] Jan, [facility] [address] [place] [id number] [address] [place] [phone] Dec, Right ankle pain M25.571 [facility] [address] [facility] [id number] [address] [place] [id number] Dec, GERD (gastroesophageal reflu x disease) K21.9 [facility] [address] [facility] [id number] [address] [place] [phone] Dec, Insomnia G47.00 [facility] [address] [facility] [id number] [address] [place] [phone] Dec, Hypertension I10 and Hyperka lemia 276.7 [facility] [address] [facility] [id number] [address] [place] [phone] Dec, Chronic kidney disease N18.9 [facility] [address] [facility] [id number] [address] [place] [phone] Dec, [facility] [address] [facility] [id number] [address] [place] [phone] Dec, Hyperkalemia E87.5 [facility] [address] [place] [id number] [address] [place] [phone] 03 Dec, 2015 Chronic kidney disease N18.9 and Right ankle pain M25.571 [facility] [address] [id number] [address] [place] [phone] 11 Nov, 2015 GERD (gastroesophageal reflu x disease) K21.9 [facility] [address] [id number] [address] [place] [phone] 03 Nov, 2015 Right ankle pain M25.571 [facility] [address] [id number] [address] [place] [phone] 03 Nov, [address] [facility] [address] [id number] [address] [place] [phone] Oct, [facility] [address] [facility] [id number] [address] [place] [phone] Oct, [facility] [address] [id number] [address] [place] [phone] Oct, [facility] [address] [id number] [address] [place] [phone] Oct, Hyperkalemia E87.5 [facility] [address] [facility] [id number] [address] [place] [phone] Oct, [facility] [address] [facility] [id number] [address] [place] [phone] Oct, Hyperkalemia E87.5 [facility] [address] [id number] [address] [place] [phone] Sep, [facility] [address] [id number] [address] [place] [phone] Sep, [facility] [address] [facility] [id number] [address] [place] [phone] Sep, [address] [facility] [address] [facility] [id number] [address] [place] [phone] Sep, [facility] [address] [id number] [address] [place] [id number] Sep, Right ankle pain M25.571 [facility] [address] [id number] [address] [place] [phone] Aug, Chronic kidney disease N18.9 [facility] [address] [facility] [id number] [address] [place] [phone] Aug, [facility] [address] [id number] [address] [place] [id number] Aug, Hyperkalemia E87.5 [facility] [address] [id number] [address] [place] [phone] Aug, [facility] [address] [facility] [id number] [address] [place] [id number] Jul, [facility] [address] [facility] [id number] [address] [place] [phone] Jul, [facility] [address] [facility] [id number] [address] [place] [phone] Jul, [facility] [address] [facility] [id number] [address] [place] [id number] Jul, Diabetes mellitus E11.9 ; En counter for immunization Z23 ; Hypertension I10 and Hyperkalemia E87.5 [facility] [address] [facility] [id number] [address] [place] [id number] Jul, [facility] [address] [facility] [id number] [address] [place] [address] Jul, Hyperkalemia E87.5 [facility] [address] [facility] [id number] [address] [place] [id number] Jul, Hyperkalemia E87.5 [facility] [address] [facility] [id number] [address] [place] [phone] Jun, [facility] [address] [facility] [id number] [address] [place] [phone] Jun, [facility] [address] [id number] [address] [place] [address], [place] [address] Jun, [facility] [address] [id number] [address] [place] [address], [place] [address] Jun, [facility] [address] [id number] [address] [place] [address], [place] [address] May, [facility] [address] [id number] [address] [place] [address], [place] [address] May, [facility] [address] [id number] [address] [place] [address], [place] [address] May, [facility] [address] [id number] [address] [place] [address], [place] [address] May, Hyperkalemia 276.7 [facility] [address] [id number] [address] [place] [address], [place] [address] May, [facility] [address] [id number] [address] [place] [address], [place] [address] Apr, Hyperkalemia 276.7 [facility] [address] [id number] [address] [place] [address], [place] [address] Apr, [facility] [address] [id number] [address] [place] [address], [place] [address] Apr, [facility] [address] [id number] [address] [place] [address], [place] [address] Apr, [facility] [address] [id number] [address] [place] [address], [place] [address] Apr, [facility] [address] [id number] [address] [place] [address], [place] [address] 14 Apr, 2015 Hyperkalemia 276.7 [facility] [address] [id number] [address] [place] [address], [place] [address] Apr, [facility] [address] [id number] [address] [place] [address], [place] [address] Apr, [facility] [address] [id number] [address] [place] [id number] Mar, [facility] [address] [id number] [address] [place] [address] Mar, Hyperkalemia 276.7 [facility] [address] [id number] [address] [place] [phone] Mar, Hyperkalemia 276.7 [facility] [address] [id number] [address] [place] [phone] Mar, [facility] [address] [id number] [address] [place] [id number] Mar, [facility] [address] [id number] [address] [place] [id number] Mar, [facility] [address] [id number] [address] [place] [phone] Mar, [facility] [address] [id number] [address] [place] [id number] Mar, Anserine bursitis 726.61 [facility] [address] [id number] [address] [place] [address] Mar, Asthma 493.[address] [facility] [address] [id number] [address] [place] [phone] Mar, [facility] [address] [id number] [address] [place] [phone] February, [facility] [address] [id number] [address] [place] [id number] February, [facility] [address] [id number] [address] [place] [id number] February, [facility] [address] [id number] [address] [place] [phone] February, [facility] [address] [id number] [address] [place] [address], [place] [address] February, [facility] [address] [id number] [address] [place] [address], [place] [address] February, [facility] [address] [id number] [address] [place] [address], [place] [address] February, [facility] [address] [id number] [address] [place] [address], [place] [address] February, [facility] [address] [id number] [address] [place] [address], [place] [address] February, [facility] [address] [id number] [address] [place] [address], [place] [address] Jan, [facility] [address] [id number] [address] [place] [address], [place] [address] Jan, [facility] [address] [id number] [address] [place] [address], [place] [address] Dec, [facility] [address] [id number] [address] [place] [address], [place] [address] Dec, [facility] [address] [id number] [address] [place] [address], [place] [address] Dec, [facility] [address] [id number] [address] [place] [address], [place] [address] Dec, [facility] [address] [id number] [address] [place] [address], [place] [address] Dec, [facility] [address] [id number] [address] [place] [address], [place] [address] Dec, [facility] [address] [id number] [address] [place] [address], [place] [address] Dec, [facility] [address] [id number] [address] [place] [address], [place] [address] Dec, [facility] [address] [id number] [address] [place] [address], [place] [address] Dec, [facility] [address] [id number] [address] [place] [address], [place] [address] Dec, [facility] [address] [id number] [address] [place] [address], [place] [address] Dec, [facility] [address] [id number] [address] [place] [address], [place] [address] Dec, [facility] [address] [id number] [address] [place] [address], [place] [address] Dec, [facility] [address] [id number] [address] [place] [address], [place] [address] Dec, [facility] [address] [id number] [address] [place] [address], [place] [address] Nov, [facility] [address] [id number] [address] [place] [address], [place] [address] Nov, [facility] [address] [id number] [address] [place] [address], [place] [address] Nov, [facility] [address] [id number] [address] [place] [address], [place] [address] Nov, [facility] [address] [id number] [address] [place] [address], [place] [address] Nov, [facility] [address] [id number] [address] [place] [address], [place] [address] Nov, [facility] [address] [id number] [address] [place] [address], [place] [address] Oct, [facility] [address] [id number] [address] [place] [address], [place] [address] Oct, [facility] [address] [id number] [address] [place] [address], [place] [address] Oct, [facility] [address] [id number] [address] [place] [address], [place] [address] Oct, [facility] [address] [id number] [address] [place] [address], [place] [address] Oct, [facility] [address] [id number] [address] [place] [address], [place] [address] Oct, [facility] [address] [id number] [address] [place] [address], [place] [address] Sep, [facility] [address] [id number] [address] [place] [address], [place] [address] Sep, [facility] [address] [id number] [address] [place] [address], [place] [address] Sep, [facility] [address] [id number] [address] [place] [address], [place] [address] Sep, [facility] [address] [id number] [address] [place] [address], [place] [address] Sep, [facility] [address] [id number] [address] [place] [address], [place] [address] Sep, [facility] [address] [id number] [address] [place] [address], [place] [address] Aug, [facility] [address] [id number] [address] [place] [address], [place] [address] Aug, [facility] [address] [id number] [address] [place] [address], [place] [address] Aug, [facility] [address] [id number] [address] [place] [address], [place] [address] Aug, [facility] [address] [id number] [address] [place] [address], [place] [address] Aug, [facility] [address] [id number] [address] [place] [address], [place] [address] Aug, [facility] [address] [id number] [address] [place] [address], [place] [address] Jul, [facility] [address] [id number] [address] [place] [address], [place] [address] Jul, [facility] [address] [id number] [address] [place] [address], [place] [address] Jul, [facility] [address] [id number] [address] [place] [address], [place] [address] Jul, [facility] [address] [id number] [address] [place] [address], [place] [address] Jul, [facility] [address] [id number] [address] [place] [address], [place] [address] Jul, [facility] [address] [id number] [address] [place] [address], [place] [address] Jul, [facility] [address] [id number] [address] [place] [address], [place] [address] Jul, [facility] [address] [id number] [address] [place] [address], [place] [address] Jul, [facility] [address] [id number] [address] [place] [address], [place] [address] Jul, [facility] [address] [id number] [address] [place] [address], [place] [address] Jul, [facility] [address] [id number] [address] [place] [address] Jun, [facility] [address] [id number] [address] [place] [phone] Jun, [facility] [address] [id number] [address] [place] [phone] Jun, [facility] [address] [id number] [address] [place] [address], [place] [address] Jun, [facility] [address] [id number] [address] [place] [address], [place] [address] Apr, [facility] [address] [id number] [address] [place] [phone] Apr, [facility] [address] [id number] [address] [place] [phone] Apr, [facility] [address] [id number] [address] [place] [id number] Apr, [facility] [address] [id number] [address] [place] [phone] Mar, [facility] [address] [id number] [address] [place] [phone] Mar, [facility] [address] [id number] [address] [place] [id number] Mar, [facility] [address] [id number] [address] [place] [phone] Mar, [facility] [address] [id number] [address] [place] [id number] Mar, [facility] [address] [id number] [address] [place] [phone] Sep, [facility] [address] [id number] [address] [place] [phone] Sep, [facility] [address] [id number] [address] [place] [id number] Aug, IMMUNIZATIONS No Known Immunizations SOCIAL HISTORY [...] V C oct 2016 Hospitalization History Pneumonia [place] MISTY- eda 06/2018 Hospitalization History fistula in left arm 07/2018
--- OUTSIDE RECORDS SUMMARY | 2020-04-01 19:27 | XMS REPORT ---
Author Author Josephine WILLIS Organization [facility] Address [address] [place] [address] Care Team Providers Care Director Diabetes Name Role Phone OLYA WILLIS Unavailable PROBLEMS Type Condition ICD9-CM Code [id number] Code Onset Dates Condition S tatus SNOMED Code Problem Diabetes mellitus E11.9 Active 73 105832 Problem Hypertension I10 Active 4814309 3 Problem Paresthesias R20.2 Active 6674867 4 Problem Chronic kidney disease N18.9 Active 522451864 Problem Venous insufficiency I87.2 Active 90912425 Problem Diabetic polyneuropathy associated with type 2 d iabetes mellitus E11.42 Active 98257105 Problem Type 2 diabetes mellitus with diabetic autonomic (poly)neuropathy E11.43 Active 396476902 Problem Chronic skin ulcer with fat layer exposed L98.492 Active 68758450 Problem Chronic osteomyelitis of right foot with draining sinus M86.471 Active [id number] Problem PAD (peripheral artery disease) I73.9 Active 945619073 Problem Gastroparesis K31.84 Active 727626 006 Problem Seasonal allergic rhinitis due to other allergic trigger J30.89 Active 230869982 Problem GERD (gastroesophageal reflux disease) K21.9 Active 714847172 Problem Type 2 diabetes mellitus with foot ulcer E11.621 Active 56621635625018 Problem 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 Active 421876129 Problem Pressure ulcer of unspecified heel, stage 4 L89.60 4 Active 950489766 Problem Unsteady gait R26.81 Active 712703 08 ALLERGIES No Information ENCOUNTERS Encounter Location Date Diagnosis [facility] [address] [facility] [id number] [address] [place] [id number] Jun, [facility] [address] [facility] [id number] [address] [place] [phone] May, Chronic skin ulcer with fat layer exposed L98.492 [facility] [address] [id number] [address] [place] [id number] May, [facility] [address] [id number] [address] [place] [id number] May, Chronic skin ulcer with fat layer exposed L98.492 [facility] [address] [id number] [address] [place] [address] Apr, Chronic skin ulcer with fat layer exposed L98.492 [facility] [address] [id number] [address] [place] [address] Apr, [address] [address] Apr, [facility] [address] [id number] [address] [place] [address] Apr, Chronic skin ulcer with fat layer exposed L98.492 [facility] [address] [id number] [address] [place] [address] Apr, Foot callus L84 and Nonheali ng wound of heel S91.309A [facility] [address] [id number] [address] [place] [address] Apr, [address] [phone] Mar, [facility] [address] [id number] [address] [place] [address] Mar, Diabetes mellitus E11.9 and Chronic skin ulcer with fat layer exposed L98.492 [facility] [address] [id number] [address] [place] [address] Mar, Chronic skin ulcer with fat layer exposed L98.492 [facility] [address] [id number] [address] [place] [address] Mar, [facility] [address] [id number] [address] [place] [address] February, Chronic skin ulcer with fat layer exposed L98.492 and Encounter for medication monitoring Z51.81 [facility] [address] [id number] [address] [place] [address] February, [facility] [address] [id number] [address] [place] [id number] February, Encounter for medication mon itoring Z51.81 [facility] [address] [id number] [address] [place] [phone] February, [facility] [address] [id number] [address] [place] [phone] February, [facility] [address] [id number] [address] [place] [address] February, [facility] [address] [id number] [address] [place] [id number] Jan, Chronic skin ulcer with fat layer exposed L98.492 [facility] [address] [id number] [address] [place] [phone] Jan, [facility] [address] [id number] [address] [place] [id number] Dec, [facility] [address] [id number] [address] [place] [id number] Dec, Diabetic polyneuropathy asso ciated with type 2 diabetes mellitus E11.42 and PAD (peripheral artery disease) I73.9 [facility] [address] [id number] [address] [place] [address] Dec, Chronic skin ulcer with fat layer exposed L98.492 [facility] [address] [id number] [address] [place] [id number] Dec, [facility] [address] [id number] [address] [place] [id number] Nov, [facility] [address] [id number] [address] [place] [id number] Nov, Skin ulcer of right foot wit h fat layer exposed L97.512 [facility] [address] [id number] [address] [place] [id number] Oct, [facility] [address] [id number] [address] [place] [id number] Oct, Skin ulcer of right foot wit h fat layer exposed L97.512 [facility] [address] [id number] [address] [place] [address] Sep, Diabetes mellitus E11.9 [facility] [address] [id number] [address] [place] [phone] Sep, [facility] [address] [id number] [address] [place] [phone] Sep, [facility] [address] [id number] [address] [place] [address] Sep, [facility] [address] [id number] [address] [place] [id number] Sep, Type 2 diabetes mellitus wit h foot ulcer E11.621 and Skin ulcer of right foot with fat layer exposed L97.512 [facility] [address] [id number] [address] [place] [id number] Sep, Diabetes mellitus E11.9 [facility] [address] [id number] [address] [place] [id number] Sep, [facility] [address] [id number] [address] [place] [phone] Aug, [facility] [address] [id number] [address] [place] [address] Aug, [facility] [address] [id number] [address] [place] [id number] Aug, 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 [facility] [address] [id number] [address] [place] [id number] Aug, [facility] [address] [id number] [address] [place] [id number] Aug, [facility] [address] [id number] [address] [place] [id number] Aug, Bronchitis J40 [facility] [address] [facility] [id number] [address] [place] [phone] Aug, [facility] [address] [id number] [address] [place] [address] Jul, [facility] [address] [facility] [id number] [address] [place] [id number] Jul, Chronic skin ulcer with fat layer exposed L98.492 [facility] [address] [facility] [id number] [address] [place] [address] Jul, 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 [facility] [address] [facility] [id number] [address] [place] [id number] Jun, [facility] [address] [id number] [address] [place] [id number] Jun, [facility] [address] [facility] [id number] [address] [place] [id number] May, [facility] [address] [facility] [id number] [address] [place] [address] May, Chronic skin ulcer with fat layer exposed L98.492 [facility] [address] [facility] [id number] [address] [place] [id number] Apr, [facility] [address] [facility] [id number] [address] [place] [id number] Apr, Type 2 diabetes mellitus wit h foot ulcer E11.621 and Unsteady gait R26.81 [facility] [address] [facility] [id number] [address] [place] [address] Mar, Decubitus ulcer of right mariana l, stage 3 L89.613 [facility] [address] [place] [id number] [address] [place] [id number] Mar, [place] [address] [facility] [id number] [address] [place] [address] Mar, Pressure ulcer of unspecifie d heel, stage 4 L89.604 and Type 2 diabetes mellitus with foot ulcer E11.621 [place] [address] [place] [id number] [address] [place] [phone] Mar, Encounter for medication mon itoring Z51.81 [place] [address] [place] [id number] [address] [place] [id number] Mar, Type 2 diabetes mellitus wit h foot ulcer E11.621 and Non-pressure chronic ulcer of right heel and midfoot with unspecified severity L97.419 [place] [address] [place] [id number] [address] [place] [address] February, [place] [address] [address] Jan, Right ankle pain M25.571 [place] [address] [place] [id number] [address] [place] [address] Dec, Right ankle pain M25.571 [place] [address] [place] [id number] [address] [place] [address] Dec, [place] [address] [place] [id number] [address] [place] [id number] Dec, [place] [address] [place] [id number] [address] [place] [address] Dec, Right ankle pain M25.571 [place] [address] [place] [id number] [address] [place] [address] Dec, Chronic skin ulcer with fat layer exposed L98.492 ; Type 2 diabetes mellitus with diabetic autonomic (poly)neuropathy E11.43 and Hypertension I10 [place] [address] [place] [id number] [address] [place] [address] Nov, [place] [address] [id number] [address] [place] [phone] Nov, [facility] [address] [id number] [address] [place] [phone] Nov, [facility] [address] [id number] [address] [place] [address] Nov, Right ankle pain M25.571 and Chronic osteomyelitis of right foot with draining sinus M86.471 [facility] [address] [id number] [address] [place] [id number] Oct, Right ankle pain M25.571 [facility] [address] [id number] [address] [place] [address] Oct, [facility] [address] [id number] [address] [place] [id number] Sep, Diabetes mellitus E11.9 [facility] [address] [id number] [address] [place] [address] Sep, Diabetic polyneuropathy asso ciated with type 2 diabetes mellitus E11.42 and Venous insufficiency I87.2 [facility] [address] [id number] [address] [place] [address] Sep, Right ankle pain M25.571 [facility] [address] [facility] [id number] [address] [place] [address] Aug, Right ankle pain M25.571 [facility] [address] [id number] [address] [place] [id number] Aug, Chronic osteomyelitis of rig ht foot with draining sinus M86.471 [facility] [address] [id number] [address] [place] [phone] Aug, [facility] [address] [id number] [address] [place] [phone] Aug, [facility] [address] [facility] [id number] [address] [place] [address] Aug, Chronic osteomyelitis of rig ht foot with draining sinus M86.471 [facility] [address] [facility] [id number] [address] [place] [id number] Jul, [facility] [address] [facility] [id number] [address] [place] [phone] Jul, [facility] [address] [facility] [id number] [address] [place] [id number] Jul, Chronic kidney disease N18.9 [facility] [address] [facility] [id number] [address] [place] [address] Jul, Right ankle pain M25.571 [place] [address] [place] [id number] [address] [place] [id number] Jul, Non-healing ulcer of right f oot, unspecified ulcer stage L97.519 [place] [address] [place] [id number] [address] [place] [address] Jul, Chronic skin ulcer with fat layer exposed L98.492 [place] [address] [facility] [id number] [address] [place] [address] Jul, Deformity of right ankle nitza nt M21.961 [place] [address] [place] [id number] [address] [place] [id number] Jun, [facility] [address] [facility] [id number] [address] [place] [address] Jun, Diabetes mellitus E11.9 ; Sk in ulcer of right foot with fat layer exposed L97.512 and Encounter for immunization Z23 [facility] [address] [facility] [id number] [address] [place] [address] Jun, Right ankle pain M25.571 [place] [address] [facility] [id number] [address] [place] [address] May, Right ankle pain M25.571 [place] [address] [facility] [id number] [address] [place] [address] Apr, Right ankle pain M25.571 [facility] [address] [facility] [id number] [address] [place] [address] Mar, Right ankle pain M25.571 [facility] [address] [facility] [id number] [address] [place] [address] Mar, [facility] [address] [place] [id number] [address] [place] [address] February, Diabetes mellitus E11.9 and Diabetic polyneuropathy associated with type 2 diabetes mellitus E11.42 [facility] [address] [place] [id number] [address] [place] [address] February, Hyperkalemia E87.5 [facility] [address] [place] [id number] [address] [place] [address] February, Right ankle pain M25.571 [facility] [address] [place] [id number] [address] [place] [address] Jan, Right ankle pain M25.571 [facility] [address] [place] [id number] [address] [place] [address] Dec, Right ankle pain M25.571 [facility] [address] [place] [id number] [place] [address] Dec, Right ankle pain M25.571 [facility] [address] [place] [id number] [address] [place] [address] Nov, [facility] [address] [place] [id number] [place] [address] Nov, Diabetes mellitus E11.9 ; Hy pertension I10 ; Gastroparesis K31.84 and Type 2 diabetes mellitus with diabetic autonomic (poly)neuropathy E11.43 [facility] [address] [place] [id number] [address] [place] [address] Nov, Right ankle pain M25.571 [facility] [address] [place] [id number] [address] [place] [address] Oct, Right ankle pain M25.571 [facility] [address] [facility] [id number] [address] [place] [address] Oct, [facility] [address] [facility] [id number] [address] [place] [id number] Oct, [facility] [address] [facility] [id number] [address] [place] [address] Sep, [facility] [address] [facility] [id number] [address] [place] [id number] Sep, Hypertension I10 [facility] [address] [facility] [id number] [address] [place] [address] Sep, Chronic kidney disease N18.9 ; Right ankle pain M25.571 and GERD (gastroesophageal reflux disease) K21.9 [facility] [address] [facility] [id number] [address] [place] [address] Jul, [facility] [address] [place] [id number] [address] [place] [id number] Jul, Encounter for immunization Z 23 ; Venous insufficiency I87.2 and Diabetic polyneuropathy associated with type 2 diabetes mellitus E11.42 [facility] [address] [facility] [id number] [address] [place] [phone] Jul, [facility] [address] [facility] [id number] [address] [place] [id number] Jul, Diabetes mellitus E11.9 [facility] [address] [facility] [id number] [address] [place] [id number] May, [facility] [address] [facility] [id number] [address] [place] [address] Apr, [facility] [address] [facility] [id number] [address] [place] [address] Mar, Right ankle pain M25.571 [facility] [address] [facility] [id number] [address] [place] [address] Mar, [facility] [address] [id number] [address] [place] [address] February, Paresthesias R20.2 [facility] [address] [id number] [address] [place] [phone] February, [facility] [address] [id number] [address] [place] [id number] February, 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 [facility] [address] [id number] [address] [place] [address] February, Diabetes mellitus E11.9 [facility] [address] [id number] [address] [place] [id number] February, [facility] [address] [facility] [id number] [address] [place] [phone] February, Polyneuropathy in diabetes 3 57.2 and Paresthesias R20.2 [facility] [address] [facility] [id number] [address] [place] [phone] February, [facility] [address] [id number] [address] [place] [id number] February, [facility] [address] [facility] [id number] [address] [place] [id number] February, [facility] [address] [facility] [id number] [address] [place] [phone] February, Diabetes mellitus E11.9 [facility] [address] [facility] [id number] [address] [place] [id number] February, [facility] [address] [facility] [id number] [address] [place] [address] February, Hyperkalemia E87.5 [facility] [address] [facility] [id number] [address] [place] [address] Jan, Hypertension I10 [facility] [address] [facility] [id number] [address] [place] [id number] Jan, Insomnia G47.00 [facility] [address] [facility] [id number] [address] [place] [phone] Jan, [facility] [address] [facility] [id number] [address] [place] [id number] Jan, [facility] [address] [facility] [id number] [address] [place] [id number] Jan, [facility] [address] [facility] [id number] [address] [place] [phone] Dec, Right ankle pain M25.571 [facility] [address] [facility] [id number] [address] [place] [id number] Dec, GERD (gastroesophageal reflu x disease) K21.9 [facility] [address] [facility] [id number] [address] [place] [phone] Dec, Insomnia G47.00 [facility] [address] [facility] [id number] [address] [place] [address] Dec, Hypertension I10 and Hyperka lemia 276.7 [facility] [address] [facility] [id number] [address] [place] [id number] Dec, Chronic kidney disease N18.9 [facility] [address] [facility] [id number] [address] [place] [id number] Dec, [facility] [address] [facility] [id number] [address] [place] [id number] Dec, Hyperkalemia E87.5 [facility] [address] [facility] [id number] [address] [place] [id number] Dec, Chronic kidney disease N18.9 and Right ankle pain M25.571 [facility] [address] [facility] [id number] [address] [place] [id number] 11 Nov, 2015 GERD (gastroesophageal reflu x disease) K21.9 [facility] [address] [facility] [id number] [address] [place] [phone] 03 Nov, 2015 Right ankle pain M25.571 [facility] [address] [id number] [address] [place] [phone] Nov, Diabetes mellitus E11.9 [facility] [address] [id number] [address] [place] [id number] Oct, [facility] [address] [id number] [address] [place] [id number] Oct, [facility] [address] [id number] [address] [place] [phone] Oct, [facility] [address] [id number] [address] [place] [id number] Oct, Hyperkalemia E87.5 [facility] [address] [id number] [address] [place] [id number] Oct, [facility] [address] [id number] [address] [place] [id number] Oct, Hyperkalemia E87.5 [facility] [address] [id number] [address] [place] [phone] Sep, [facility] [address] [id number] [address] [place] [id number] Sep, [facility] [address] [id number] [address] [place] [id number] Sep, [facility] [address] [id number] [address] [place] [id number] Sep, [facility] [address] [id number] [address] [place] [id number] Sep, Right ankle pain M25.571 [facility] [address] [id number] [address] [place] [id number] Aug, Chronic kidney disease N18.9 [facility] [address] [id number] [address] [place] [id number] Aug, [facility] [address] [id number] [address] [place] [id number] Aug, Hyperkalemia E87.5 [facility] [address] [id number] [address] [place] [id number] Aug, [facility] [address] [id number] [address] [place] [id number] Jul, [facility] [address] [id number] [address] [place] [phone] Jul, [facility] [address] [id number] [address] [place] [phone] Jul, [facility] [address] [id number] [address] [place] [id number] Jul, Diabetes mellitus E11.9 ; En counter for immunization Z23 ; Hypertension I10 and Hyperkalemia E87.5 [facility] [address] [id number] [address] [place] [id number] Jul, [facility] [address] [id number] [address] [place] [id number] Jul, Hyperkalemia E87.5 [facility] [address] [id number] [address] [place] [id number] Jul, Hyperkalemia E87.5 [facility] [address] [id number] [address] [place] [id number] 28 Jun, 2015 [facility] [address] [id number] [address] [place] [id number] 21 Jun, 2015 [facility] [address] [id number] [address] [place] [id number] 15 Jun, 2015 [facility] [address] [id number] [address] [place] [id number] Jun, [facility] [address] [id number] [address] [place] [id number] May, [facility] [address] [id number] [address] [place] [address], [place] [address] May, [facility] [address] [id number] [address] [place] [address], [place] [address] May, [facility] [address] [id number] [address] [place] [address], [place] [address] May, Hyperkalemia 276.7 [facility] [address] [id number] [address] [place] [address], [place] [address] May, [facility] [address] [id number] [address] [place] [address], [place] [address] Apr, Hyperkalemia 276.7 [facility] [address] [id number] [address] [place] [address], [place] [address] Apr, [facility] [address] [id number] [address] [place] [address], [place] [address] Apr, [facility] [address] [id number] [address] [place] [address], [place] [address] Apr, [facility] [address] [id number] [address] [place] [address], [place] [address] Apr, [facility] [address] [id number] [address] [place] [address], [place] [address] Apr, Hyperkalemia 276.7 [facility] [address] [id number] [address] [place] [address], [place] [address] Apr, [facility] [address] [id number] [address] [place] [address], [place] [address] Apr, [facility] [address] [id number] [address] [place] [address], [place] [address] Mar, [facility] [address] [id number] [address] [place] [address], [place] [address] Mar, Hyperkalemia 276.7 [facility] [address] [id number] [address] [place] [address], [place] [address] Mar, Hyperkalemia 276.7 [facility] [address] [id number] [address] [place] [phone] Mar, [facility] [address] [id number] [address] [place] [id number] Mar, [facility] [address] [id number] [address] [place] [id number] Mar, [facility] [address] [id number] [address] [place] [id number] Mar, [facility] [address] [id number] [address] [place] [id number] Mar, Anserine bursitis 726.61 [facility] [address] [id number] [address] [place] [id number] Mar, Asthma 493.90 and Hyperkalem ia 276.7 [facility] [address] [id number] [address] [place] [phone] Mar, [facility] [address] [id number] [address] [place] [id number] February, [facility] [address] [id number] [address] [place] [id number] February, [facility] [address] [id number] [address] [place] [phone] February, [facility] [address] [id number] [address] [place] [phone] February, [facility] [address] [id number] [address] [place] [id number] February, [facility] [address] [id number] [address] [place] [id number] February, [facility] [address] [id number] [address] [place] [id number] February, [facility] [address] [id number] [address] [place] [id number] February, [facility] [address] [id number] [address] [place] [address], [place] [address] February, [facility] [address] [id number] [address] [place] [address], [place] [address] Jan, [facility] [address] [id number] [address] [place] [address], [place] [address] Jan, [facility] [address] [id number] [address] [place] [address], [place] [address] Dec, [facility] [address] [id number] [address] [place] [address], [place] [address] Dec, [facility] [address] [id number] [address] [place] [address], [place] [address] Dec, [facility] [address] [id number] [address] [place] [address], [place] [address] Dec, [facility] [address] [id number] [address] [place] [address], [place] [address] Dec, [facility] [address] [id number] [address] [place] [address], [place] [address] Dec, [facility] [address] [id number] [address] [place] [address], [place] [address] Dec, [facility] [address] [id number] [address] [place] [address], [place] [address] Dec, [facility] [address] [id number] [address] [place] [address], [place] [address] Dec, [facility] [address] [id number] [address] [place] [address], [place] [address] Dec, [facility] [address] [id number] [address] [place] [address], [place] [address] Dec, [facility] [address] [id number] [address] [place] [address], [place] [address] Dec, [facility] [address] [id number] [address] [place] [address], [place] [address] Dec, [facility] [address] [id number] [address] [place] [address], [place] [address] Dec, [facility] [address] [id number] [address] [place] [address], [place] [address] Nov, [facility] [address] [id number] [address] [place] [address], [place] [address] Nov, [facility] [address] [id number] [address] [place] [address], [place] [address] Nov, [facility] [address] [id number] [address] [place] [address], [place] [address] Nov, [facility] [address] [id number] [address] [place] [address], [place] [address] Nov, [facility] [address] [id number] [address] [place] [address], [place] [address] Nov, [facility] [address] [id number] [address] [place] [address], [place] [address] Oct, [facility] [address] [id number] [address] [place] [address], [place] [address] Oct, [facility] [address] [id number] [address] [place] [address], [place] [address] Oct, [facility] [address] [id number] [address] [place] [address], [place] [address] Oct, [facility] [address] [id number] [address] [place] [address], [place] [address] Oct, [facility] [address] [id number] [address] [place] [address], [place] [address] Oct, [facility] [address] [id number] [address] [place] [address], [place] [address] Sep, [facility] [address] [id number] [address] [place] [address], [place] [address] Sep, [facility] [address] [id number] [address] [place] [address], [place] [address] Sep, [facility] [address] [id number] [address] [place] [address], [place] [address] Sep, [facility] [address] [id number] [address] [place] [address], [place] [address] Sep, [facility] [address] [id number] [address] [place] [address], [place] [address] Sep, [facility] [address] [id number] [address] [place] [address], [place] [address] Aug, [facility] [address] [id number] [address] [place] [address], [place] [address] Aug, [facility] [address] [id number] [address] [place] [address], [place] [address] Aug, [facility] [address] [id number] [address] [place] [address], [place] [address] Aug, [facility] [address] [id number] [address] [place] [address], [place] [address] Aug, [facility] [address] [id number] [address] [place] [address], [place] [address] Aug, [facility] [address] [id number] [address] [place] [id number] Jul, [facility] [address] [id number] [address] [place] [id number] Jul, [facility] [address] [id number] [address] [place] [address], [place] [address] Jul, [facility] [address] [id number] [address] [place] [address], [place] [address] Jul, [facility] [address] [id number] [address] [place] [id number] Jul, [facility] [address] [id number] [address] [place] [id number] Jul, [facility] [address] [id number] [address] [place] [address], [place] [address] Jul, [facility] [address] [id number] [address] [place] [address], [place] [address] Jul, [facility] [address] [id number] [address] [place] [address], [place] [address] Jul, [facility] [address] [id number] [address] [place] [address], [place] [address] Jul, [facility] [address] [id number] [address] [place] [address], [place] [address] Jul, [facility] [address] [id number] [address] [place] [address], [place] [address] Jun, [facility] [address] [id number] [address] [place] [address], [place] [address] Jun, [facility] [address] [id number] [address] [place] [address], [place] [address] Jun, [facility] [address] [id number] [address] [place] [address], [place] [address] Jun, [facility] [address] [id number] [address] [place] [address], [place] [address] Apr, [facility] [address] [id number] [address] [place] [address], [place] [address] Apr, [facility] [address] [id number] [address] [place] [id number] Apr, [facility] [address] [id number] [address] [place] [address], [place] [address] Apr, [facility] [address] [id number] [address] [place] [address], [place] [address] Mar, [facility] [address] [id number] [address] [place] [address], [place] [address] Mar, [facility] [address] [id number] [address] [place] [id number] 16 Mar, 2014 [facility] [address] [facility] [id number] [address] [place] [id number] Mar, [facility] [address] [facility] [id number] [address] [place] [id number] Mar, [facility] [address] [facility] [id number] [address] [place] [id number] Sep, [facility] [address] [facility] [id number] [address] [place] [id number] Sep, [facility] [address] [facility] [id number] [address] [place] [id number] Aug, IMMUNIZATIONS No Known Immunizations SOCIAL HISTORY [...] V C oct 2016 Hospitalization History Pneumonia Seminary MISTY- eda 06/2018 Hospitalization History fistula in left arm 07/2018
--- OUTSIDE RECORDS SUMMARY | 2020-04-01 19:27 | XMS REPORT ---
Author Author Josephine WILLIS Organization [facility] Address [address] [place] [address] Care Team Providers Care Support Staff Name Role Phone OLYA WILLIS Unavailable PROBLEMS Type Condition ICD9-CM Code DBC85-FJ Code Onset Dates Condition S tatus SNOMED Code Problem Diabetes mellitus E11.9 Active 73 807470 Problem Hypertension I10 Active 4264114 3 Problem Paresthesias R20.2 Active 6485537 4 Problem Chronic kidney disease N18.9 Active 166079711 Problem Diabetic polyneuropathy associated with type 2 d iabetes mellitus E11.42 Active 84405811 Problem Venous insufficiency I87.2 Active 08022896 Problem Type 2 diabetes mellitus with diabetic autonomic (poly)neuropathy E11.43 Active 414370941 Problem Chronic skin ulcer with fat layer exposed L98.492 Active 80791368 Problem Chronic osteomyelitis of right foot with draining sinus M86.471 Active [id number] Problem PAD (peripheral artery disease) I73.9 Active 479931230 Problem Gastroparesis K31.84 Active 122339 006 Problem Seasonal allergic rhinitis due to other allergic trigger J30.89 Active 329456390 Problem GERD (gastroesophageal reflux disease) K21.9 Active 980944053 Problem Type 2 diabetes mellitus with foot ulcer E11.621 Active 66004523759987 Problem 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 Active 082547754 Problem Pressure ulcer of unspecified heel, stage 4 L89.60 4 Active 635391816 Problem Unsteady gait R26.81 Active 856743 08 ALLERGIES No Information ENCOUNTERS Encounter Location Date Diagnosis [facility] [address] [facility] [place] [address] Oct, [facility] [address] [facility] [place] [address] Sep, Chronic skin ulcer with fat layer expose d L98.492 and Unsteady gait R26.81 [facility] [address] [address] Sep, [facility] [address] [place] [address] Sep, Chronic skin ulcer with fat layer expose d L98.492 [facility] [address] [address] Aug, Chronic skin ulcer with fat layer expose d L98.492 [facility] [address] [address] Aug, [facility] [address] [place] [address] Aug, Type 2 diabetes mellitus with foot ulcer E11.621 and Chronic skin ulcer with fat layer exposed L98.492 [place] [address] [address] Jul, Chronic skin ulcer with fat layer expose d L98.492 [facility] [address] [address] Jul, [facility] [address] [address] Jul, Chronic skin ulcer with fat layer expose d L98.492 [facility] [address] [address] Jun, Chronic skin ulcer with fat layer expose d L98.492 [facility] [address] [address] Jun, [facility] [address] [address] Jun, Chronic skin ulcer with fat layer expose d L98.492 [facility] [address] [address] May, Chronic skin ulcer with fat layer expose d L98.492 [facility] [address] [address] May, [facility] [address] [address] May, Chronic skin ulcer with fat layer expose d L98.492 [facility] [address] [address] Apr, Chronic skin ulcer with fat layer expose d L98.492 [facility] [address] [address] Apr, [address] [place] [address] Apr, [facility] [address] [address] Apr, Chronic skin ulcer with fat layer expose d L98.492 [place] [address] [address] Apr, Foot callus L84 and Nonhealing wound of heel S91.309A [facility] [address] [address] Apr, [address] [place] [address] Mar, [facility] [address] [address] Mar, Diabetes mellitus E11.9 and Chronic skin ulcer with fat layer exposed L98.492 [facility] [address] [address] Mar, Chronic skin ulcer with fat layer expose d L98.492 [facility] [address] [address] Mar, [facility] [address] [address] February, Chronic skin ulcer with fat layer expose d L98.492 and Encounter for medication monitoring Z51.81 [facility] [address] [address] February, [facility] [address] [address] February, Encounter for medication monitoring Z51. 81 [facility] [address] [address] February, [facility] [address] [address] February, [facility] [address] [address] February, [facility] [address] [address] Jan, Chronic skin ulcer with fat layer expose d L98.492 [facility] [address] [address] Jan, [facility] [address] [address] Dec, [facility] [address] [address] Dec, Diabetic polyneuropathy associated with type 2 diabetes mellitus E11.42 and PAD (peripheral artery disease) I73.9 [place] [address] [address] Dec, Chronic skin ulcer with fat layer expose d L98.492 [facility] [address] [address] Dec, [facility] [address] [address] Nov, [facility] [address] [address] Nov, Skin ulcer of right foot with fat layer exposed L97.512 [facility] [address] [address] Oct, [facility] [address] [address] Oct, Skin ulcer of right foot with fat layer exposed L97.512 [facility] [id number] [place] [address] Sep, Diabetes mellitus E11.9 [facility] [address] [address] Sep, [facility] [address] [address] Sep, [facility] [address] [address] 17 Sep, 2018 [facility] [address] [address] 14 Sep, 2018 Type 2 diabetes mellitus with foot ulcer E11.621 and Skin ulcer of right foot with fat layer exposed L97.512 [facility] [address] [address] 13 Sep, 2018 Diabetes mellitus E11.9 [facility] [address] [address] Sep, [facility] [address] [address] Aug, [facility] [address] [address] Aug, [facility] [address] [address] Aug, Non-pressure chronic ulcer of right heel and midfoot with unspecified severity L97.419 [facility] [id number] [place] [address] Aug, [facility] [address] [facility] [id number] [address] [place] [address] Aug, [facility] [address] [place] [id number] [place] [address] 09 Aug, 2018 Bronchitis J40 [facility] [address] [address] 08 Aug, 2018 [facility] [address] [address] Jul, [facility] [address] [address] Jul, Chronic skin ulcer with fat layer expose d L98.492 [facility] [address] [address] Jul, Non-pressure chronic ulcer of right heel and midfoot with unspecified severity L97.419 [facility] [address] [address] Jun, [facility] [address] [address] Jun, [place] [address] [address] May, [place] [address] [address] May, Chronic skin ulcer with fat layer expose d L98.492 [facility] [address] [address] Apr, [place] [address] [address] Apr, Type 2 diabetes mellitus with foot ulcer E11.621 and Unsteady gait R26.81 [place] [address] [address] Mar, Decubitus ulcer of right heel, stage 3 L 89.613 [place] [address] [address] Mar, [place] [address] [address] Mar, Pressure ulcer of unspecified heel, stag e 4 L89.604 and Type 2 diabetes mellitus with foot ulcer E11.621 [place] [address] [address] Mar, Encounter for medication monitoring Z51. 81 [place] [address] [address] Mar, Type 2 diabetes mellitus with foot ulcer E11.621 and Non-pressure chronic ulcer of right heel and midfoot with unspecified severity L97.419 [place] [address] [address] February, [place] [address] [address] Jan, Right ankle pain M25.571 [place] [address] [address] Dec, Right ankle pain M25.571 [place] [address] [address] Dec, [place] [address] [address] Dec, [place] [address] [address] Dec, Right ankle pain M25.571 [place] [address] [address] Dec, Chronic skin ulcer with fat layer expose d L98.492 ; Type 2 diabetes mellitus with diabetic autonomic (poly)neuropathy E11.43 and Hypertension I10 [place] [address] [address] Nov, [place] [address] [address] Nov, [place] [address] [address] Nov, [place] [address] [address] Nov, Right ankle pain M25.571 and Chronic ost eomyelitis of right foot with draining sinus M86.471 [place] [address] [address] Oct, Right ankle pain M25.571 [facility] [address] [address] Oct, [facility] [address] [address] Sep, Diabetes mellitus E11.9 [facility] [address] [address] Sep, Diabetic polyneuropathy associated with type 2 diabetes mellitus E11.42 and Venous insufficiency I87.2 [facility] [address] [address] 07 Sep, 2017 Right ankle pain M25.571 [facility] [address] [address] Aug, Right ankle pain M25.571 [place] [address] [address] Aug, Chronic osteomyelitis of right foot with draining sinus M86.471 [facility] [address] [address] Aug, [facility] [address] [address] Aug, [facility] [address] [address] Aug, Chronic osteomyelitis of right foot with draining sinus M86.471 [facility] [id number] [place] [address] Jul, [facility] [address] [address] Jul, [facility] [address] [address] Jul, Chronic kidney disease N18.9 [facility] [address] [address] Jul, Right ankle pain M25.571 [facility] [address] [address] Jul, Non-healing ulcer of right foot, unspeci fied ulcer stage L97.519 [place] [address] [address] Jul, Chronic skin ulcer with fat layer expose d L98.492 [place] [address] [address] Jul, Deformity of right ankle joint M21.961 [place] [address] [address] Jun, [place] [address] [address] Jun, Diabetes mellitus E11.9 ; Skin ulcer of right foot with fat layer exposed L97.512 and Encounter for immunization Z23 [place] [address] [address] Jun, Right ankle pain M25.571 [place] [address] [address] May, Right ankle pain M25.571 [place] [address] [address] Apr, Right ankle pain M25.571 [place] [address] [address] Mar, Right ankle pain M25.571 [place] [address] [address] Mar, [place] [address] [address] February, Diabetes mellitus E11.9 and Diabetic allen yneuropathy associated with type 2 diabetes mellitus E11.42 [place] [address] [address] February, Hyperkalemia E87.5 [place] [address] [address] February, Right ankle pain M25.571 [facility] [address] [address] Jan, Right ankle pain M25.571 [facility] [address] [address] Dec, Right ankle pain M25.571 [facility] [address] [address] Dec, Right ankle pain M25.571 [place] [address] [address] Nov, [place] [address] [address] Nov, Diabetes mellitus E11.9 ; Hypertension I 10 ; Gastroparesis K31.84 and Type 2 diabetes mellitus with diabetic autonomic (poly)neuropathy E11.43 [place] [address] [address] Nov, Right ankle pain M25.571 [place] [address] [address] Oct, Right ankle pain M25.571 [place] [address] [address] Oct, [place] [address] [address] Oct, [place] [address] [address] Sep, [place] [address] [address] Sep, Hypertension I10 [place] [address] [address] Sep, Chronic kidney disease N18.9 ; Right ank le pain M25.571 and GERD (gastroesophageal reflux disease) K21.9 [place] [address] [address] Jul, [facility] [id number] [place] [address] Jul, Encounter for immunization Z23 ; Venous insufficiency I87.2 and Diabetic polyneuropathy associated with type 2 diabetes mellitus E11.42 [facility] [id number] [place] [address] Jul, [facility] [id number] [place] [address] Jul, Diabetes mellitus E11.9 [facility] [address] [address] May, [facility] [address] [address] Apr, [facility] [address] [address] Mar, Right ankle pain M25.571 [facility] [address] [address] Mar, [facility] [id number] [place] [address] February, Paresthesias R20.2 [facility] [address] [address] February, [facility] [address] [address] February, 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 [facility] [id number] [place] [address] February, Diabetes mellitus E11.9 [facility] [id number] [place] [address] February, [facility] [address] [address] February, Polyneuropathy in diabetes 357.2 and Par esthesias R20.2 [facility] [address] [address] February, [facility] [address] [address] February, [facility] [address] [address] February, [facility] [address] [address] February, Diabetes mellitus E11.9 [facility] [address] [address] February, [facility] [address] [address] February, Hyperkalemia E87.5 [facility] [address] [address] Jan, Hypertension I10 [place] [address] [address] Jan, Insomnia G47.00 [place] [address] [address] Jan, [facility] [address] [address] Jan, [facility] [address] [address] Jan, [facility] [address] [address] Dec, Right ankle pain M25.571 [place] [address] [address] Dec, GERD (gastroesophageal reflux disease) K 21.9 [facility] [address] [address] Dec, Insomnia G47.00 [facility] [address] [address] Dec, Hypertension I10 and Hyperkalemia 276.7 [place] [address] [address] Dec, Chronic kidney disease N18.9 [facility] [address] [facility] [place] [address] Dec, [facility] [id number] [place] [address] Dec, Hyperkalemia E87.5 [facility] [id number] [place] [address] Dec, Chronic kidney disease N18.9 and Right a nkle pain M25.571 [facility] [id number] [place] [address] 11 Nov, 2015 GERD (gastroesophageal reflux disease) K 21.9 [facility] [id number] [place] [address] 03 Nov, 2015 Right ankle pain M25.571 [facility] [id number] [place] [address] Nov, Diabetes mellitus E11.9 [facility] [id number] [place] [address] Oct, [facility] [id number] [place] [address] Oct, [facility] [id number] [place] [address] Oct, [facility] [id number] [place] [address] Oct, Hyperkalemia E87.5 [facility] [id number] [place] [address] Oct, [facility] [id number] [place] [address] Oct, Hyperkalemia E87.5 [facility] [id number] [place] [address] Sep, [facility] [id number] [place] [address] Sep, [facility] [id number] [place] [address] Sep, [facility] [address] [address] Sep, [facility] [address] [address] Sep, Right ankle pain M25.571 [facility] [address] [address] Aug, Chronic kidney disease N18.9 [facility] [address] [address] Aug, [facility] [address] [address] Aug, Hyperkalemia E87.5 [facility] [address] [address] Aug, [facility] [address] [address] Jul, [facility] [address] [address] Jul, [facility] [address] [address] Jul, [facility] [address] [address] Jul, Diabetes mellitus E11.9 ; Encounter for immunization Z23 ; Hypertension I10 and Hyperkalemia E87.5 [facility] [address] [address] Jul, [facility] [address] [address] Jul, Hyperkalemia E87.5 [facility] [address] [address] Jul, Hyperkalemia E87.5 [facility] [address] [address] 28 Jun, 2015 [facility] [place] [facility] [address] [facility] [id number] [facility] [place] [address] Jun, [facility] [place] [facility] [address] [facility] [id number] [facility] [place] [address] 15 Jun, 2015 [facility] [place] [facility] [address] [facility] [id number] [place] [address] Jun, [facility] [place] [facility] [address] [id number] [facility] [place] [address] May, [facility] [place] [facility] [address] [facility] [id number] [place] [address] May, [facility] [place] [facility] [address] [id number] [facility] [place] [address] May, [facility] [place] [facility] [address] [id number] [place] [address] May, Hyperkalemia 276.7 [facility] [place] [facility] [address] [id number] [place] [address] May, [facility] [place] [facility] [address] [id number] [place] [address] Apr, Hyperkalemia 276.7 [facility] [place] [facility] [address] [id number] [place] [address] Apr, [facility] [place] [facility] [address] [id number] [place] [address] Apr, [facility] [place] [facility] [address] [id number] [place] [address] Apr, [facility] [place] [facility] [address] [facility] [id number] [place] [address] Apr, [facility] [place] [facility] [address] [id number] [place] [address] 14 Apr, 2015 Hyperkalemia 276.7 [facility] [place] [facility] [address] [id number] [place] [address] Apr, [facility] [place] [facility] [address] [id number] [place] [address] Apr, [facility] [address] [id number] [place] [address] Mar, [facility] [address] [id number] [place] [address] Mar, Hyperkalemia 276.7 [facility] [id number] [place] [address] Mar, Hyperkalemia 276.7 [facility] [id number] [place] [address] Mar, [facility] [id number] [place] [address] Mar, [facility] [id number] [place] [address] Mar, [facility] [id number] [place] [address] Mar, [facility] [id number] [place] [address] Mar, Anserine bursitis 726.61 [facility] [id number] [place] [address] Mar, Asthma 493.90 and Hyperkalemia 276.7 [facility] [id number] [place] [address] Mar, [facility] [id number] [place] [address] February, [facility] [id number] [place] [address] February, [facility] [id number] [place] [address] February, [facility] [id number] [place] [address] February, [facility] [id number] [place] [address] February, [facility] [place] [facility] [address] [id number] [facility] [place] [address] February, [facility] [place] [facility] [address] [facility] [id number] [place] [address] February, [facility] [place] [facility] [address] [facility] [id number] [place] [address] February, [facility] [place] [facility] [address] [id number] [place] [address] February, [facility] [place] [facility] [address] [facility] [id number] [facility] [place] [address] Jan, [facility] [place] [facility] [address] [facility] [id number] [facility] [place] [address] Jan, [facility] [place] [facility] [address] [id number] [place] [address] Dec, [facility] [place] [facility] [address] [id number] [place] [address] Dec, [facility] [place] [facility] [address] [id number] [place] [address] Dec, [facility] [place] [facility] [address] [facility] [id number] [place] [address] Dec, [facility] [address] [id number] [place] [address] Dec, [facility] [address] [id number] [place] [address] Dec, [facility] [address] [id number] [place] [address] Dec, [facility] [address] [facility] [id number] [place] [address] Dec, [facility] [address] [id number] [place] [address] Dec, [facility] [address] [id number] [place] [address] Dec, [facility] [address] [id number] [place] [address] Dec, [facility] [address] [facility] [id number] [place] [address] Dec, [facility] [address] [id number] [place] [address] Dec, [facility] [address] [id number] [place] [address] Dec, [facility] [address] [id number] [place] [address] Nov, [facility] [address] [facility] [id number] [facility] [place] [address] Nov, [facility] [address] [id number] [place] [address] Nov, [facility] [address] [id number] [place] [address] Nov, [facility] [address] [id number] [place] [address] Nov, [facility] [address] [id number] [place] [address] Nov, [facility] [address] [id number] [place] [address] Oct, [facility] [address] [id number] [place] [address] Oct, [facility] [address] [id number] [place] [address] Oct, [facility] [address] [id number] [place] [address] Oct, [facility] [address] [id number] [place] [address] Oct, [facility] [facility] [id number] [place] [address] Oct, [facility] [id number] [place] [address] Sep, [facility] [id number] [place] [address] 30 Sep, 2014 [facility] [id number] [place] [address] Sep, [facility] [id number] [place] [address] Sep, [facility] [id number] [place] [address] Sep, [facility] [id number] [place] [address] Sep, [facility] [id number] [place] [address] Aug, [facility] [id number] [place] [address] Aug, [facility] [id number] [place] [address] Aug, [facility] [id number] [place] [address] Aug, [facility] [id number] [place] [address] Aug, [facility] [id number] [place] [address] Aug, [facility] [id number] [place] [address] Jul, [facility] [id number] [place] [address] Jul, [facility] [id number] [place] [address] Jul, [facility] [id number] [place] [address] Jul, [facility] [id number] [place] [address] Jul, [facility] [id number] [place] [address] Jul, [facility] [address] [facility] [id number] [place] [address] Jul, [facility] [id number] [place] [address] Jul, [facility] [id number] [place] [address] Jul, [facility] [id number] [place] [address] Jul, [facility] [id number] [place] [address] Jul, [facility] [id number] [place] [address] Jun, [facility] [id number] [place] [address] Jun, [facility] [id number] [place] [address] Jun, [facility] [id number] [place] [address] Jun, [facility] [id number] [place] [address] Apr, [facility] [id number] [place] [address] Apr, [facility] [id number] [place] [address] Apr, [facility] [id number] [place] [address] Apr, [facility] [id number] [place] [address] Mar, [facility] [id number] [place] [address] Mar, [facility] [id number] [place] [address] Mar, [facility] [id number] [place] [address] Mar, [facility] [id number] [place] [address] Mar, [facility] [id number] [place] [address] Sep, [facility] [id number] [place] [address] Sep, [facility] [id number] [place] [address] Aug, IMMUNIZATIONS No Known Immunizations SOCIAL HISTORY [...] V C oct 2016 Hospitalization History Pneumonia [place] [facility] 06/2018 Hospitalization History fistula in left arm 07/2018
--- OUTSIDE RECORDS SUMMARY | 2020-04-01 19:28 | XMS REPORT ---
Author Author Josephine WILLIS Organization [facility] Address [address] [place] [address] Care Team Providers Care Security Representative Name Role Phone OLYA WILLIS Unavailable PROBLEMS Type Condition ICD9-CM Code NOZ38-XR Code Onset Dates Condition S tatus SNOMED Code Problem Diabetes mellitus E11.9 Active 73 962184 Problem Hypertension I10 Active 8609215 3 Problem Paresthesias R20.2 Active 6988711 4 Problem Chronic kidney disease N18.9 Active 972793211 Problem Venous insufficiency I87.2 Active 66241195 Problem Diabetic polyneuropathy associated with type 2 d iabetes mellitus E11.42 Active 65983902 Problem Type 2 diabetes mellitus with diabetic autonomic (poly)neuropathy E11.43 Active 081555393 Problem Chronic skin ulcer with fat layer exposed L98.492 Active 90720425 Problem Chronic osteomyelitis of right foot with draining sinus M86.471 Active [id number] Problem PAD (peripheral artery disease) I73.9 Active 391885763 Problem Gastroparesis K31.84 Active 580506 006 Problem Seasonal allergic rhinitis due to other allergic trigger J30.89 Active 895244061 Problem GERD (gastroesophageal reflux disease) K21.9 Active 864691030 Problem Type 2 diabetes mellitus with foot ulcer E11.621 Active 58550850586760 Problem 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 Active 803443477 Problem Pressure ulcer of unspecified heel, stage 4 L89.60 4 Active 938968617 Problem Unsteady gait R26.81 Active 020048 08 ALLERGIES No Information ENCOUNTERS Encounter Location Date Diagnosis [facility] [address] [facility] [id number] [address] [place] [phone] Jun, [facility] [address] [facility] [id number] [address] [place] [phone] May, Chronic skin ulcer with fat layer exposed L98.492 [facility] [address] [id number] [address] [place] [phone] May, [facility] [address] [id number] [address] [place] [phone] May, Chronic skin ulcer with fat layer exposed L98.492 [facility] [address] [id number] [address] [place] [address] Apr, Chronic skin ulcer with fat layer exposed L98.492 [facility] [address] [id number] [address] [place] [phone] Apr, [address] [address] Apr, [facility] [address] [id number] [address] [place] [id number] Apr, Chronic skin ulcer with fat layer exposed L98.492 [facility] [address] [id number] [address] [place] [phone] Apr, Foot callus L84 and Nonheali ng wound of heel S91.309A [facility] [address] [id number] [address] [place] [phone] Apr, [address] [phone] Mar, [facility] [address] [id number] [address] [place] [phone] Mar, Diabetes mellitus E11.9 and Chronic skin ulcer with fat layer exposed L98.492 [facility] [address] [id number] [address] [place] [address] Mar, Chronic skin ulcer with fat layer exposed L98.492 [facility] [address] [id number] [address] [place] [phone] Mar, [facility] [address] [id number] [address] [place] [address] February, Chronic skin ulcer with fat layer exposed L98.492 and Encounter for medication monitoring Z51.81 [facility] [address] [id number] [address] [place] [phone] February, [facility] [address] [id number] [address] [place] [phone] February, Encounter for medication mon itoring Z51.81 [facility] [address] [id number] [address] [place] [phone] February, [facility] [address] [id number] [address] [place] [phone] February, [facility] [address] [id number] [address] [place] [phone] February, [facility] [address] [id number] [address] [place] [phone] Jan, Chronic skin ulcer with fat layer exposed L98.492 [facility] [address] [id number] [address] [place] [phone] Jan, [facility] [address] [id number] [address] [place] [phone] Dec, [facility] [address] [id number] [address] [place] [phone] Dec, Diabetic polyneuropathy asso ciated with type 2 diabetes mellitus E11.42 and PAD (peripheral artery disease) I73.9 [facility] [address] [id number] [address] [place] [phone] Dec, Chronic skin ulcer with fat layer exposed L98.492 [facility] [address] [id number] [address] [place] [phone] Dec, [facility] [address] [id number] [address] [place] [phone] Nov, [facility] [address] [id number] [address] [place] [address] Nov, Skin ulcer of right foot wit h fat layer exposed L97.512 [facility] [address] [id number] [address] [place] [phone] Oct, [facility] [address] [id number] [address] [place] [phone] Oct, Skin ulcer of right foot wit h fat layer exposed L97.512 [facility] [address] [id number] [address] [place] [phone] Sep, Diabetes mellitus E11.9 [facility] [address] [id number] [address] [place] [phone] Sep, [facility] [address] [id number] [address] [place] [phone] Sep, [facility] [address] [id number] [address] [place] [address] Sep, [facility] [address] [id number] [address] [place] [phone] Sep, Type 2 diabetes mellitus wit h foot ulcer E11.621 and Skin ulcer of right foot with fat layer exposed L97.512 [facility] [address] [id number] [address] [place] [address] Sep, Diabetes mellitus E11.9 [facility] [address] [id number] [address] [place] [phone] Sep, [facility] [address] [id number] [address] [place] [phone] Aug, [facility] [address] [id number] [address] [place] [phone] Aug, [facility] [address] [id number] [address] [place] [phone] Aug, 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 [facility] [address] [id number] [address] [place] [phone] Aug, [facility] [address] [id number] [address] [place] [phone] Aug, [facility] [address] [id number] [address] [place] [phone] Aug, Bronchitis J40 [facility] [address] [facility] [id number] [address] [place] [phone] Aug, [facility] [address] [id number] [address] [place] [phone] Jul, [facility] [address] [facility] [id number] [address] [place] [id number] Jul, Chronic skin ulcer with fat layer exposed L98.492 [facility] [address] [facility] [id number] [address] [place] [phone] Jul, 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 [facility] [address] [facility] [id number] [address] [place] [phone] Jun, [facility] [address] [id number] [address] [place] [phone] Jun, [facility] [address] [facility] [id number] [address] [place] [phone] May, [facility] [address] [facility] [id number] [address] [place] [address] May, Chronic skin ulcer with fat layer exposed L98.492 [facility] [address] [facility] [id number] [address] [place] [id number] Apr, [facility] [address] [facility] [id number] [address] [place] [phone] Apr, Type 2 diabetes mellitus wit h foot ulcer E11.621 and Unsteady gait R26.81 [facility] [address] [facility] [id number] [address] [place] [id number] Mar, Decubitus ulcer of right mariana l, stage 3 L89.613 [facility] [address] [place] [id number] [address] [place] [phone] Mar, [place] [address] [facility] [id number] [address] [place] [phone] Mar, Pressure ulcer of unspecifie d heel, stage 4 L89.604 and Type 2 diabetes mellitus with foot ulcer E11.621 [place] [address] [place] [id number] [address] [place] [address] Mar, Encounter for medication mon itoring Z51.81 [place] [address] [place] [id number] [address] [place] [id number] Mar, Type 2 diabetes mellitus wit h foot ulcer E11.621 and Non-pressure chronic ulcer of right heel and midfoot with unspecified severity L97.419 [place] [address] [place] [id number] [address] [place] [phone] February, [place] [address] [address] Jan, Right ankle pain M25.571 [place] [address] [place] [id number] [address] [place] [address] Dec, Right ankle pain M25.571 [place] [address] [place] [id number] [address] [place] [phone] Dec, [place] [address] [place] [id number] [address] [place] [phone] Dec, [place] [address] [place] [id number] [address] [place] [address] Dec, Right ankle pain M25.571 [place] [address] [place] [id number] [address] [place] [address] Dec, Chronic skin ulcer with fat layer exposed L98.492 ; Type 2 diabetes mellitus with diabetic autonomic (poly)neuropathy E11.43 and Hypertension I10 [place] [address] [place] [id number] [address] [place] [phone] Nov, [place] [address] [id number] [address] [place] [phone] Nov, [facility] [address] [id number] [address] [place] [phone] Nov, [facility] [address] [id number] [address] [place] [address] Nov, Right ankle pain M25.571 and Chronic osteomyelitis of right foot with draining sinus M86.471 [facility] [address] [id number] [address] [place] [address] Oct, Right ankle pain M25.571 [facility] [address] [id number] [address] [place] [phone] Oct, [facility] [address] [id number] [address] [place] [phone] Sep, Diabetes mellitus E11.9 [facility] [address] [id number] [address] [place] [phone] Sep, Diabetic polyneuropathy asso ciated with type 2 diabetes mellitus E11.42 and Venous insufficiency I87.2 [facility] [address] [id number] [address] [place] [phone] Sep, Right ankle pain M25.571 [facility] [address] [facility] [id number] [address] [place] [address] Aug, Right ankle pain M25.571 [facility] [address] [id number] [address] [place] [phone] Aug, Chronic osteomyelitis of rig ht foot with draining sinus M86.471 [facility] [address] [id number] [address] [place] [phone] Aug, [facility] [address] [id number] [address] [place] [id number] Aug, [facility] [address] [facility] [id number] [address] [place] [phone] Aug, Chronic osteomyelitis of rig ht foot with draining sinus M86.471 [facility] [address] [facility] [id number] [address] [place] [phone] Jul, [facility] [address] [facility] [id number] [address] [place] [phone] Jul, [facility] [address] [facility] [id number] [address] [place] [phone] Jul, Chronic kidney disease N18.9 [facility] [address] [facility] [id number] [address] [place] [phone] Jul, Right ankle pain M25.571 [place] [address] [place] [id number] [address] [place] [phone] Jul, Non-healing ulcer of right f oot, unspecified ulcer stage L97.519 [place] [address] [place] [id number] [address] [place] [phone] Jul, Chronic skin ulcer with fat layer exposed L98.492 [place] [address] [facility] [id number] [address] [place] [phone] Jul, Deformity of right ankle nitza nt M21.961 [place] [address] [place] [id number] [address] [place] [phone] Jun, [facility] [address] [facility] [id number] [address] [place] [phone] Jun, Diabetes mellitus E11.9 ; Sk in ulcer of right foot with fat layer exposed L97.512 and Encounter for immunization Z23 [facility] [address] [facility] [id number] [address] [place] [phone] Jun, Right ankle pain M25.571 [place] [address] [facility] [id number] [address] [place] [address] May, Right ankle pain M25.571 [place] [address] [facility] [id number] [address] [place] [phone] Apr, Right ankle pain M25.571 [facility] [address] [facility] [id number] [address] [place] [id number] Mar, Right ankle pain M25.571 [facility] [address] [facility] [id number] [address] [place] [phone] Mar, [facility] [address] [place] [id number] [address] [place] [phone] February, Diabetes mellitus E11.9 and Diabetic polyneuropathy associated with type 2 diabetes mellitus E11.42 [facility] [address] [place] [id number] [address] [place] [address] February, Hyperkalemia E87.5 [facility] [address] [place] [id number] [address] [place] [address] February, Right ankle pain M25.571 [facility] [address] [place] [id number] [address] [place] [address] Jan, Right ankle pain M25.571 [facility] [address] [place] [id number] [address] [place] [address] Dec, Right ankle pain M25.571 [facility] [address] [place] [id number] [place] [address] Dec, Right ankle pain M25.571 [facility] [address] [place] [id number] [address] [place] [address] Nov, [facility] [address] [place] [id number] [place] [address] Nov, Diabetes mellitus E11.9 ; Hy pertension I10 ; Gastroparesis K31.84 and Type 2 diabetes mellitus with diabetic autonomic (poly)neuropathy E11.43 [facility] [address] [place] [id number] [address] [place] [address] Nov, Right ankle pain M25.571 [facility] [address] [place] [id number] [address] [place] [phone] Oct, Right ankle pain M25.571 [facility] [address] [facility] [id number] [address] [place] [phone] Oct, [facility] [address] [facility] [id number] [address] [place] [phone] Oct, [facility] [address] [facility] [id number] [address] [place] [phone] Sep, [facility] [address] [facility] [id number] [address] [place] [phone] Sep, Hypertension I10 [facility] [address] [facility] [id number] [address] [place] [address] Sep, Chronic kidney disease N18.9 ; Right ankle pain M25.571 and GERD (gastroesophageal reflux disease) K21.9 [facility] [address] [facility] [id number] [address] [place] [phone] Jul, [facility] [address] [place] [id number] [address] [place] [phone] Jul, Encounter for immunization Z 23 ; Venous insufficiency I87.2 and Diabetic polyneuropathy associated with type 2 diabetes mellitus E11.42 [facility] [address] [facility] [id number] [address] [place] [phone] Jul, [facility] [address] [facility] [id number] [address] [place] [id number] Jul, Diabetes mellitus E11.9 [facility] [address] [facility] [id number] [address] [place] [phone] May, [facility] [address] [facility] [id number] [address] [place] [phone] Apr, [facility] [address] [facility] [id number] [address] [place] [phone] Mar, Right ankle pain M25.571 [facility] [address] [facility] [id number] [address] [place] [phone] Mar, [facility] [address] [id number] [address] [place] [phone] February, Paresthesias R20.2 [facility] [address] [id number] [address] [place] [phone] February, [facility] [address] [id number] [address] [place] [address] February, 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 [facility] [address] [id number] [address] [place] [phone] February, Diabetes mellitus E11.9 [facility] [address] [id number] [address] [place] [phone] February, [facility] [address] [facility] [id number] [address] [place] [phone] February, Polyneuropathy in diabetes 3 57.2 and Paresthesias R20.2 [facility] [address] [facility] [id number] [address] [place] [phone] February, [facility] [address] [id number] [address] [place] [phone] February, [facility] [address] [facility] [id number] [address] [place] [phone] February, [facility] [address] [facility] [id number] [address] [place] [address] February, Diabetes mellitus E11.9 [facility] [address] [facility] [id number] [address] [place] [phone] February, [facility] [address] [facility] [id number] [address] [place] [phone] February, Hyperkalemia E87.5 [facility] [address] [facility] [id number] [address] [place] [phone] Jan, Hypertension I10 [facility] [address] [facility] [id number] [address] [place] [phone] Jan, Insomnia G47.00 [facility] [address] [facility] [id number] [address] [place] [phone] Jan, [facility] [address] [facility] [id number] [address] [place] [phone] Jan, [facility] [address] [facility] [id number] [address] [place] [phone] Jan, [facility] [address] [facility] [id number] [address] [place] [phone] Dec, Right ankle pain M25.571 [facility] [address] [facility] [id number] [address] [place] [phone] Dec, GERD (gastroesophageal reflu x disease) K21.9 [facility] [address] [facility] [id number] [address] [place] [phone] Dec, Insomnia G47.00 [facility] [address] [facility] [id number] [address] [place] [phone] Dec, Hypertension I10 and Hyperka lemia 276.7 [facility] [address] [facility] [id number] [address] [place] [phone] Dec, Chronic kidney disease N18.9 [facility] [address] [facility] [id number] [address] [place] [address] Dec, [facility] [address] [facility] [id number] [address] [place] [phone] Dec, Hyperkalemia E87.5 [facility] [address] [facility] [id number] [address] [place] [phone] Dec, Chronic kidney disease N18.9 and Right ankle pain M25.571 [facility] [address] [facility] [id number] [address] [place] [phone] 11 Nov, 2015 GERD (gastroesophageal reflu x disease) K21.9 [facility] [address] [facility] [id number] [address] [place] [phone] 03 Nov, 2015 Right ankle pain M25.571 [facility] [address] [id number] [address] [place] [phone] Nov, Diabetes mellitus E11.9 [facility] [address] [id number] [address] [place] [phone] Oct, [facility] [address] [id number] [address] [place] [id number] Oct, [facility] [address] [id number] [address] [place] [id number] Oct, [facility] [address] [id number] [address] [place] [id number] Oct, Hyperkalemia E87.5 [facility] [address] [id number] [address] [place] [phone] Oct, [facility] [address] [id number] [address] [place] [id number] Oct, Hyperkalemia E87.5 [facility] [address] [id number] [address] [place] [phone] Sep, [facility] [address] [id number] [address] [place] [id number] Sep, [facility] [address] [id number] [address] [place] [id number] Sep, [facility] [address] [id number] [address] [place] [phone] Sep, [facility] [address] [id number] [address] [place] [phone] Sep, Right ankle pain M25.571 [facility] [address] [id number] [address] [place] [id number] Aug, Chronic kidney disease N18.9 [facility] [address] [id number] [address] [place] [id number] Aug, [facility] [address] [id number] [address] [place] [id number] Aug, Hyperkalemia E87.5 [facility] [address] [id number] [address] [place] [id number] Aug, [facility] [address] [id number] [address] [place] [id number] Jul, [facility] [address] [id number] [address] [place] [id number] Jul, [facility] [facility] [address] [id number] [address] [place] [id number] Jul, [facility] [address] [id number] [address] [place] [id number] Jul, Diabetes mellitus E11.9 ; En counter for immunization Z23 ; Hypertension I10 and Hyperkalemia E87.5 [facility] [address] [id number] [address] [place] [id number] Jul, [facility] [address] [id number] [address] [place] [id number] Jul, Hyperkalemia E87.5 [facility] [address] [id number] [address] [place] [id number] Jul, Hyperkalemia E87.5 [facility] [address] [id number] [address] [place] [id number] 28 Jun, 2015 [facility] [address] [id number] [address] [place] [id number] 21 Jun, 2015 [facility] [address] [id number] [address] [place] [id number] 15 Jun, 2015 [facility] [address] [id number] [address] [place] [phone] Jun, [facility] [address] [id number] [address] [place] [id number] May, [facility] [address] [id number] [address] [place] [address], [place] [address] May, [facility] [address] [id number] [address] [place] [address], [place] [address] May, [facility] [address] [id number] [address] [place] [address], [place] [address] May, Hyperkalemia 276.7 [facility] [address] [id number] [address] [place] [address], [place] [address] May, [facility] [address] [id number] [address] [place] [address], [place] [address] Apr, Hyperkalemia 276.7 [facility] [address] [id number] [address] [place] [address], [place] [address] Apr, [facility] [address] [id number] [address] [place] [address], [place] [address] Apr, [facility] [address] [id number] [address] [place] [address], [place] [address] Apr, [facility] [address] [id number] [address] [place] [address], [place] [address] Apr, [facility] [address] [id number] [address] [place] [address], [place] [address] Apr, Hyperkalemia 276.7 [facility] [address] [id number] [address] [place] [address], [place] [address] Apr, [facility] [address] [id number] [address] [place] [address], [place] [address] Apr, [facility] [address] [id number] [address] [place] [address], [place] [address] Mar, [facility] [address] [id number] [address] [place] [address], [place] [address] Mar, Hyperkalemia 276.7 [facility] [address] [id number] [address] [place] [address], [place] [address] Mar, Hyperkalemia 276.7 [facility] [address] [id number] [address] [place] [phone] Mar, [facility] [address] [id number] [address] [place] [phone] Mar, [facility] [address] [id number] [address] [place] [phone] Mar, [facility] [address] [id number] [address] [place] [id number] Mar, [facility] [address] [id number] [address] [place] [phone] Mar, Anserine bursitis 726.61 [facility] [address] [id number] [address] [place] [phone] Mar, Asthma 493.90 and Hyperkalem ia 276.7 [facility] [address] [id number] [address] [place] [id number] Mar, [facility] [address] [id number] [address] [place] [id number] February, [facility] [address] [id number] [address] [place] [phone] February, [facility] [address] [id number] [address] [place] [id number] February, [facility] [address] [id number] [address] [place] [phone] February, [facility] [address] [id number] [address] [place] [phone] February, [facility] [address] [id number] [address] [place] [phone] February, [facility] [address] [id number] [address] [place] [phone] February, [facility] [address] [id number] [address] [place] [phone] February, [facility] [address] [id number] [address] [place] [address], [place] [address] February, [facility] [address] [id number] [address] [place] [address], [place] [address] Jan, [facility] [address] [id number] [address] [place] [address], [place] [address] Jan, [facility] [address] [id number] [address] [place] [address], [place] [address] Dec, [facility] [address] [id number] [address] [place] [address], [place] [address] Dec, [facility] [address] [id number] [address] [place] [address], [place] [address] Dec, [facility] [address] [id number] [address] [place] [address], [place] [address] Dec, [facility] [address] [id number] [address] [place] [address], [place] [address] Dec, [facility] [address] [id number] [address] [place] [address], [place] [address] Dec, [facility] [address] [id number] [address] [place] [address], [place] [address] Dec, [facility] [address] [id number] [address] [place] [address], [place] [address] Dec, [facility] [address] [id number] [address] [place] [address], [place] [address] Dec, [facility] [address] [id number] [address] [place] [address], [place] [address] Dec, [facility] [address] [id number] [address] [place] [address], [place] [address] Dec, [facility] [address] [id number] [address] [place] [address], [place] [address] Dec, [facility] [address] [id number] [address] [place] [address], [place] [address] Dec, [facility] [address] [id number] [address] [place] [address], [place] [address] Dec, [facility] [address] [id number] [address] [place] [address], [place] [address] Nov, [facility] [address] [id number] [address] [place] [address], [place] [address] Nov, [facility] [address] [id number] [address] [place] [address], [place] [address] Nov, [facility] [address] [id number] [address] [place] [address], [place] [address] Nov, [facility] [address] [id number] [address] [place] [address], [place] [address] Nov, [facility] [address] [id number] [address] [place] [address], [place] [address] Nov, [facility] [address] [id number] [address] [place] [address], [place] [address] Oct, [facility] [address] [id number] [address] [place] [address], [place] [address] Oct, [facility] [address] [id number] [address] [place] [address], [place] [address] Oct, [facility] [address] [id number] [address] [place] [address], [place] [address] Oct, [facility] [address] [id number] [address] [place] [address], [place] [address] Oct, [facility] [address] [id number] [address] [place] [address], [place] [address] Oct, [facility] [address] [id number] [address] [place] [address], [place] [address] Sep, [facility] [address] [id number] [address] [place] [address], [place] [address] Sep, [facility] [address] [id number] [address] [place] [address], [place] [address] Sep, [facility] [address] [id number] [address] [place] [address], [place] [address] Sep, [facility] [address] [id number] [address] [place] [address], [place] [address] Sep, [facility] [address] [id number] [address] [place] [address], [place] [address] Sep, [facility] [address] [id number] [address] [place] [address], [place] [address] Aug, [facility] [address] [id number] [address] [place] [address], [place] [address] Aug, [facility] [address] [id number] [address] [place] [address], [place] [address] Aug, [facility] [address] [id number] [address] [place] [address], [place] [address] Aug, [facility] [address] [id number] [address] [place] [address], [place] [address] Aug, [facility] [address] [id number] [address] [place] [address], [place] [address] Aug, [facility] [address] [id number] [address] [place] [id number] Jul, [facility] [address] [id number] [address] [place] [phone] Jul, [facility] [address] [id number] [address] [place] [address], [place] [address] Jul, [facility] [address] [id number] [address] [place] [address], [place] [address] Jul, [facility] [address] [id number] [address] [place] [phone] Jul, [facility] [address] [id number] [address] [place] [phone] Jul, [facility] [address] [id number] [address] [place] [address], [place] [address] Jul, [facility] [address] [id number] [address] [place] [address], [place] [address] Jul, [facility] [address] [id number] [address] [place] [address], [place] [address] Jul, [facility] [address] [id number] [address] [place] [address], [place] [address] Jul, [facility] [address] [id number] [address] [place] [address], [place] [address] Jul, [facility] [address] [id number] [address] [place] [address], [place] [address] Jun, [facility] [address] [id number] [address] [place] [address], [place] [address] Jun, [facility] [address] [id number] [address] [place] [address], [place] [address] Jun, [facility] [address] [id number] [address] [place] [address], [place] [address] Jun, [facility] [address] [id number] [address] [place] [address], [place] [address] Apr, [facility] [address] [id number] [address] [place] [address], [place] [address] Apr, [facility] [address] [id number] [address] [place] [phone] Apr, [facility] [address] [id number] [address] [place] [address], [place] [address] Apr, [facility] [address] [id number] [address] [place] [address], [place] [address] Mar, [facility] [address] [id number] [address] [place] [address], [place] [address] Mar, [facility] [address] [id number] [address] [place] [id number] 16 Mar, 2014 [facility] [address] [facility] [id number] [address] [place] [id number] Mar, [facility] [address] [facility] [id number] [address] [place] [id number] Mar, [facility] [address] [facility] [id number] [address] [place] [id number] Sep, [facility] [address] [facility] [id number] [address] [place] [id number] Sep, [facility] [address] [facility] [id number] [address] [place] [phone] Aug, IMMUNIZATIONS No Known Immunizations SOCIAL HISTORY Never Assessed REASON FOR VISIT FYI only PLAN OF CARE VITAL SIGNS MEDICATIONS Unknown [...] V C oct 2016 Hospitalization History Pneumonia [place] [facility] 06/2018 Hospitalization History fistula in left arm 07/2018
--- OUTSIDE RECORDS SUMMARY | 2020-04-01 19:28 | XMS REPORT ---
Author Author Josephine WILLIS Organization [facility] [place] Address [address] [place] [address] Care Team Providers Care Writer Technical Publications Name Role Phone OLYA WILLIS Unavailable PROBLEMS Type Condition ICD9-CM Code [id number] Code Onset Dates Condition S tatus SNOMED Code Problem Diabetes mellitus E11.9 Active 73 309293 Problem Hypertension I10 Active 9828888 3 Problem Paresthesias R20.2 Active 2516050 4 Problem Chronic kidney disease N18.9 Active 611691168 Problem Venous insufficiency I87.2 Active 27231277 Problem Diabetic polyneuropathy associated with type 2 d iabetes mellitus E11.42 Active 10557185 Problem Type 2 diabetes mellitus with diabetic autonomic (poly)neuropathy E11.43 Active 159990708 Problem Chronic skin ulcer with fat layer exposed L98.492 Active 96790554 Problem Chronic osteomyelitis of right foot with draining sinus M86.471 Active [id number] Problem PAD (peripheral artery disease) I73.9 Active 396703325 Problem Gastroparesis K31.84 Active 050785 006 Problem Seasonal allergic rhinitis due to other allergic trigger J30.89 Active 039718006 Problem GERD (gastroesophageal reflux disease) K21.9 Active 498169371 Problem Type 2 diabetes mellitus with foot ulcer E11.621 Active 99145685984868 Problem 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 Active 192071129 Problem Pressure ulcer of unspecified heel, stage 4 L89.60 4 Active 824793591 Problem Unsteady gait R26.81 Active 519686 08 ALLERGIES No Information ENCOUNTERS Encounter Location Date Diagnosis [facility] [place] [address] [facility] [id number] [address] [place] [phone] May, [facility] [place] [address] [facility] [id number] [address] [place] [id number] May, Chronic skin ulcer with fat layer exposed L98.492 [facility] [place] [address] [id number] [address] [place] [id number] Apr, Chronic skin ulcer with fat layer exposed L98.492 [facility] [place] [address] [facility] [id number] [address] [place] [id number] Apr, [address] [id number] Apr, [facility] [place] [address] [facility] [id number] [address] [place] [id number] Apr, Chronic skin ulcer with fat layer exposed L98.492 [facility] [place] [address] [facility] [id number] [address] [place] [id number] Apr, Foot callus L84 and Nonheali ng wound of heel S91.309A [facility] [place] [address] [facility] [id number] [address] [place] [id number] Apr, [address] [id number] Mar, [facility] [place] [address] [facility] [id number] [address] [place] [id number] Mar, Diabetes mellitus E11.9 and Chronic skin ulcer with fat layer exposed L98.492 [facility] [place] [address] [facility] [id number] [address] [place] [id number] Mar, Chronic skin ulcer with fat layer exposed L98.492 [facility] [place] [address] [facility] [id number] [address] [place] [id number] Mar, [facility] [place] [address] [facility] [id number] [address] [place] [id number] February, Chronic skin ulcer with fat layer exposed L98.492 and Encounter for medication monitoring Z51.81 [facility] [place] [address] [facility] [id number] [address] [place] [id number] February, [facility] [place] [address] [facility] [id number] [address] [place] [id number] February, Encounter for medication mon itoring Z51.81 [facility] [address] [id number] [address] [place] [phone] February, [facility] [place] [address] [id number] [address] [place] [id number] February, [facility] [place] [address] [facility] [id number] [address] [place] [id number] February, [facility] [address] [id number] [address] [place] [id number] Jan, Chronic skin ulcer with fat layer exposed L98.492 [facility] [place] [address] [id number] [address] [place] [id number] Jan, [facility] [place] [address] [id number] [address] [place] [id number] Dec, [facility] [place] [address] [facility] [id number] [address] [place] [id number] Dec, Diabetic polyneuropathy asso ciated with type 2 diabetes mellitus E11.42 and PAD (peripheral artery disease) I73.9 [facility] [place] [address] [id number] [address] [place] [id number] Dec, Chronic skin ulcer with fat layer exposed L98.492 [facility] [place] [address] [facility] [id number] [address] [place] [id number] Dec, [facility] [place] [address] [facility] [id number] [address] [place] [id number] Nov, [facility] [place] [address] [id number] [address] [place] [phone] Nov, Skin ulcer of right foot wit h fat layer exposed L97.512 [facility] [place] [address] [facility] [id number] [address] [place] [id number] Oct, [facility] [place] [address] [facility] [id number] [address] [place] [id number] Oct, Skin ulcer of right foot wit h fat layer exposed L97.512 [facility] [place] [address] [id number] [address] [place] [id number] 27 Sep, 2018 Diabetes mellitus E11.9 [facility] [place] [address] [id number] [address] [place] [id number] Sep, [facility] [address] [id number] [address] [place] [id number] Sep, [facility] [address] [id number] [address] [place] [id number] 17 Sep, 2018 [facility] [place] [address] [id number] [address] [place] [id number] 14 Sep, 2018 Type 2 diabetes mellitus wit h foot ulcer E11.621 and Skin ulcer of right foot with fat layer exposed L97.512 [facility] [place] [address] [id number] [address] [place] [phone] 13 Sep, 2018 Diabetes mellitus E11.9 [facility] [place] [address] [id number] [address] [place] [id number] Sep, [facility] [place] [address] [id number] [address] [place] [id number] Aug, [facility] [place] [address] [id number] [address] [place] [phone] Aug, [facility] [place] [address] [id number] [address] [place] [id number] Aug, 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 [facility] [place] [address] [id number] [address] [place] [phone] Aug, [facility] [address] [id number] [address] [place] [id number] 16 Aug, 2018 [facility] [place] [address] [id number] [address] [place] [phone] 09 Aug, 2018 Bronchitis J40 [facility] [place] [address] [id number] [address] [place] [id number] Aug, [facility] [place] [address] [id number] [address] [place] [id number] Jul, [facility] [place] [address] [id number] [address] [place] [id number] Jul, Chronic skin ulcer with fat layer exposed L98.492 [facility] [place] [address] [id number] [address] [place] [id number] Jul, 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 [facility] [place] [address] [id number] [address] [place] [id number] Jun, [facility] [address] [id number] [address] [place] [id number] Jun, [facility] [place] [address] [id number] [address] [place] [id number] May, [facility] [place] [address] [id number] [address] [place] [id number] May, Chronic skin ulcer with fat layer exposed L98.492 [facility] [place] [address] [id number] [address] [place] [id number] Apr, [facility] [address] [id number] [address] [place] [id number] Apr, Type 2 diabetes mellitus wit h foot ulcer E11.621 and Unsteady gait R26.81 [facility] [place] [address] [id number] [address] [place] [id number] Mar, Decubitus ulcer of right mariana l, stage 3 L89.613 [facility] [address] [facility] [id number] [address] [place] [id number] Mar, [facility] [address] [facility] [id number] [address] [place] [id number] Mar, Pressure ulcer of unspecifie d heel, stage 4 L89.604 and Type 2 diabetes mellitus with foot ulcer E11.621 [facility] [address] [facility] [id number] [address] [place] [id number] Mar, Encounter for medication mon itoring Z51.81 [facility] [place] [address] [facility] [id number] [address] [place] [phone] Mar, Type 2 diabetes mellitus wit h foot ulcer E11.621 and Non-pressure chronic ulcer of right heel and midfoot with unspecified severity L97.419 [facility] [address] [facility] [id number] [address] [place] [id number] February, [facility] [place] [address] [facility] [id number] [address] [place] [phone] Jan, Right ankle pain M25.571 [facility] [place] [address] [facility] [id number] [address] [place] [phone] Dec, Right ankle pain M25.571 [facility] [place] [address] [place] [id number] [address] [place] [id number] Dec, [facility] [place] [address] [facility] [id number] [address] [place] [id number] Dec, [facility] [address] [facility] [id number] [address] [place] [id number] Dec, Right ankle pain M25.571 [facility] [place] [address] [facility] [id number] [address] [place] [id number] Dec, Chronic skin ulcer with fat layer exposed L98.492 ; Type 2 diabetes mellitus with diabetic autonomic (poly)neuropathy E11.43 and Hypertension I10 [facility] [address] [facility] [id number] [address] [place] [id number] Nov, [facility] [address] [facility] [id number] [address] [place] [id number] Nov, [facility] [address] [place] [id number] [address] [place] [phone] Nov, [facility] [place] [address] [place] [id number] [address] [place] [id number] Nov, Right ankle pain M25.571 and Chronic osteomyelitis of right foot with draining sinus M86.471 [facility] [address] [id number] [address] [place] [id number] Oct, Right ankle pain M25.571 [facility] [address] [id number] [address] [place] [id number] Oct, [facility] [address] [id number] [address] [place] [id number] Sep, Diabetes mellitus E11.9 [facility] [place] [address] [place] [id number] [address] [place] [id number] Sep, Diabetic polyneuropathy asso ciated with type 2 diabetes mellitus E11.42 and Venous insufficiency I87.2 [facility] [place] [address] [facility] [id number] [address] [place] [phone] Sep, Right ankle pain M25.571 [facility] [address] [id number] [address] [place] [phone] Aug, Right ankle pain M25.571 [facility] [place] [address] [facility] [id number] [address] [place] [id number] Aug, Chronic osteomyelitis of rig ht foot with draining sinus M86.471 [facility] [address] [id number] [address] [place] [id number] Aug, [facility] [address] [id number] [address] [place] [id number] Aug, [facility] [address] [id number] [address] [place] [id number] Aug, Chronic osteomyelitis of rig ht foot with draining sinus M86.471 [facility] [address] [id number] [address] [place] [id number] Jul, [facility] [place] [address] [facility] [id number] [address] [place] [id number] Jul, [facility] [place] [address] [facility] [id number] [address] [place] [phone] Jul, Chronic kidney disease N18.9 [facility] [place] [address] [facility] [id number] [address] [place] [id number] Jul, Right ankle pain M25.571 [facility] [place] [address] [facility] [id number] [address] [place] [id number] Jul, Non-healing ulcer of right f oot, unspecified ulcer stage L97.519 [facility] [place] [address] [facility] [id number] [address] [place] [id number] Jul, Chronic skin ulcer with fat layer exposed L98.492 [place] [address] [place] [id number] [address] [place] [id number] Jul, Deformity of right ankle nitza nt M21.961 [place] [address] [place] [id number] [address] [place] [phone] Jun, [place] [address] [place] [id number] [address] [place] [id number] Jun, Diabetes mellitus E11.9 ; Sk in ulcer of right foot with fat layer exposed L97.512 and Encounter for immunization Z23 [facility] [place] [address] [facility] [id number] [address] [place] [id number] Jun, Right ankle pain M25.571 [place] [address] [facility] [id number] [address] [place] [id number] May, Right ankle pain M25.571 [place] [address] [facility] [id number] [address] [place] [id number] Apr, Right ankle pain M25.571 [facility] [place] [address] [facility] [id number] [address] [place] [id number] Mar, Right ankle pain M25.571 [facility] [place] [address] [place] [id number] [address] [place] [phone] Mar, [facility] [place] [address] [facility] [id number] [address] [place] [phone] February, Diabetes mellitus E11.9 and Diabetic polyneuropathy associated with type 2 diabetes mellitus E11.42 [facility] [address] [id number] [address] [place] [id number] February, Hyperkalemia E87.5 [facility] [place] [address] [facility] [id number] [address] [place] [id number] February, Right ankle pain M25.571 [facility] [place] [address] [facility] [id number] [address] [place] [id number] Jan, Right ankle pain M25.571 [facility] [place] [address] [facility] [id number] [address] [place] [phone] Dec, Right ankle pain M25.571 [facility] [id number] [place] [id number] Dec, Right ankle pain M25.571 [facility] [place] [address] [place] [id number] [address] [place] [id number] Nov, [facility] [place] [address] [place] [id number] [address] [place] [id number] Nov, Diabetes mellitus E11.9 ; Hy pertension I10 ; Gastroparesis K31.84 and Type 2 diabetes mellitus with diabetic autonomic (poly)neuropathy E11.43 [facility] [place] [address] [place] [id number] [address] [place] [phone] Nov, Right ankle pain M25.571 [facility] [place] [address] [facility] [id number] [address] [place] [id number] Oct, Right ankle pain M25.571 [facility] [address] [facility] [id number] [address] [place] [phone] Oct, [facility] [place] [address] [place] [id number] [address] [place] [phone] Oct, [facility] [place] [address] [id number] [address] [place] [phone] Sep, [facility] [address] [id number] [address] [place] [id number] Sep, Hypertension I10 [facility] [address] [facility] [id number] [address] [place] [id number] Sep, Chronic kidney disease N18.9 ; Right ankle pain M25.571 and GERD (gastroesophageal reflux disease) K21.9 [facility] [place] [address] [id number] [address] [place] [id number] Jul, [facility] [place] [address] [facility] [id number] [address] [place] [phone] Jul, Encounter for immunization Z 23 ; Venous insufficiency I87.2 and Diabetic polyneuropathy associated with type 2 diabetes mellitus E11.42 [facility] [place] [address] [facility] [id number] [address] [place] [id number] Jul, [facility] [place] [address] [id number] [address] [place] [id number] Jul, Diabetes mellitus E11.9 [facility] [place] [address] [id number] [address] [place] [id number] May, [facility] [place] [address] [facility] [id number] [address] [place] [id number] Apr, [facility] [place] [address] [id number] [address] [place] [phone] Mar, Right ankle pain M25.571 [facility] [place] [address] [id number] [address] [place] [phone] Mar, [facility] [place] [address] [facility] [id number] [address] [place] [id number] February, Paresthesias R20.2 [facility] [place] [address] [id number] [address] [place] [id number] February, [facility] [place] [address] [id number] [address] [place] [id number] February, 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 [facility] [place] [address] [id number] [address] [place] [id number] February, Diabetes mellitus E11.9 [facility] [place] [address] [id number] [address] [place] [phone] February, [facility] [place] [address] [id number] [address] [place] [phone] February, Polyneuropathy in diabetes 3 57.2 and Paresthesias R20.2 [facility] [place] [address] [id number] [address] [place] [id number] February, [facility] [place] [address] [id number] [address] [place] [phone] February, [facility] [place] [address] [id number] [address] [place] [phone] February, [facility] [place] [address] [id number] [address] [place] [id number] February, Diabetes mellitus E11.9 [facility] [place] [address] [id number] [address] [place] [id number] February, [facility] [place] [address] [facility] [id number] [address] [place] [id number] February, Hyperkalemia E87.5 [facility] [place] [address] [id number] [address] [place] [phone] Jan, Hypertension I10 [facility] [place] [address] [id number] [address] [place] [phone] Jan, Insomnia G47.00 [facility] [place] [address] [id number] [address] [place] [id number] Jan, [facility] [place] [address] [facility] [id number] [address] [place] [id number] Jan, [facility] [place] [id number] [place] [phone] Jan, [facility] [place] [address] [facility] [id number] [place] [phone] Dec, Right ankle pain M25.571 [facility] [place] [address] [place] [id number] [address] [place] [phone] Dec, GERD (gastroesophageal reflu x disease) K21.9 [facility] [place] [address] [id number] Dec, Insomnia G47.00 [facility] [place] [address] [address] Dec, Hypertension I10 and Hyperka lemia 276.7 [place] [address] [phone] Dec, Chronic kidney disease N18.9 [place] [address] [address] Dec, [facility] [place] [address] [id number] Dec, Hyperkalemia E87.5 [place] [address] [address] Dec, Chronic kidney disease N18.9 and Right ankle pain M25.571 [facility] [place] [address] [id number] 11 Nov, 2015 GERD (gastroesophageal reflu x disease) K21.9 [facility] [place] [address] [place] [id number] [address] [place] [address] Nov, Right ankle pain M25.571 [facility] [place] [address] [place] [id number] [place] [id number] 03 Nov, 2015 Diabetes mellitus E11.9 [facility] [place] [address] [place] [id number] [address] [place] [id number] Oct, [facility] [place] [address] [id number] [address] [place] [id number] Oct, [facility] [place] [address] [id number] [address] [place] [phone] Oct, [facility] [place] [address] [id number] [address] [place] [phone] Oct, Hyperkalemia E87.5 [facility] [place] [address] [id number] [address] [place] [phone] Oct, [facility] [place] [address] [id number] [address] [place] [phone] Oct, Hyperkalemia E87.5 [facility] [place] [address] [id number] [address] [place] [id number] Sep, [facility] [place] [address] [id number] [address] [place] [id number] Sep, [facility] [place] [address] [id number] [address] [place] [id number] Sep, [facility] [place] [address] [id number] [address] [place] [id number] Sep, [facility] [place] [address] [id number] [address] [place] [id number] Sep, Right ankle pain M25.571 [facility] [place] [address] [id number] [address] [place] [id number] 30 Aug, 2015 Chronic kidney disease N18.9 [facility] [place] [address] [id number] [address] [place] [id number] Aug, [facility] [place] [address] [id number] [address] [place] [phone] Aug, Hyperkalemia E87.5 [facility] [place] [address] [id number] [address] [place] [phone] Aug, [facility] [place] [address] [id number] [address] [place] [phone] Jul, [facility] [address] [id number] [address] [place] [id number] Jul, [facility] [address] [id number] [address] [place] [phone] Jul, [facility] [address] [id number] [address] [place] [phone] Jul, Diabetes mellitus E11.9 ; En counter for immunization Z23 ; Hypertension I10 and Hyperkalemia E87.5 [facility] [address] [id number] [address] [place] [id number] Jul, [facility] [address] [id number] [address] [place] [phone] Jul, Hyperkalemia E87.5 [facility] [address] [id number] [address] [place] [id number] Jul, Hyperkalemia E87.5 [facility] [address] [id number] [address] [place] [phone] 28 Jun, 2015 [facility] [address] [id number] [address] [place] [id number] Jun, [facility] [address] [id number] [address] [place] [id number] 15 Jun, 2015 [facility] [address] [id number] [address] [place] [id number] Jun, [facility] [address] [id number] [address] [place] [phone] May, [facility] [address] [id number] [address] [place] [id number] May, [facility] [address] [id number] [address] [place] [id number] May, [facility] [address] [id number] [address] [place] [id number] May, Hyperkalemia 276.7 [facility] [address] [id number] [address] [place] [address], [place] [address] May, [facility] [address] [id number] [address] [place] [id number] Apr, Hyperkalemia 276.7 [facility] [address] [id number] [address] [place] [address], [place] [address] Apr, [facility] [address] [id number] [address] [place] [address], [place] [address] Apr, [facility] [address] [id number] [address] [place] [address], [place] [address] Apr, [facility] [address] [id number] [address] [place] [address], [place] [address] Apr, [facility] [address] [id number] [address] [place] [address], [place] [address] Apr, Hyperkalemia 276.7 [facility] [address] [id number] [address] [place] [address], [place] [address] Apr, [facility] [address] [id number] [address] [place] [id number] Apr, [facility] [address] [id number] [address] [place] [address], [place] [address] Mar, [facility] [address] [id number] [address] [place] [phone] Mar, Hyperkalemia 276.7 [facility] [address] [id number] [address] [place] [address], [place] [address] Mar, Hyperkalemia 276.7 [facility] [address] [id number] [address] [place] [address], [place] [address] Mar, [facility] [address] [id number] [address] [place] [address], [place] [address] Mar, [facility] [address] [id number] [address] [place] [id number] Mar, [facility] [address] [id number] [address] [place] [id number] Mar, [facility] [address] [id number] [address] [place] [id number] Mar, Anserine bursitis 726.61 [facility] [address] [id number] [address] [place] [id number] Mar, Asthma 493.90 and Hyperkalem ia 276.7 [facility] [address] [id number] [address] [place] [phone] Mar, [facility] [address] [id number] [address] [place] [phone] February, [facility] [address] [id number] [address] [place] [id number] February, [facility] [address] [id number] [address] [place] [phone] February, [facility] [address] [id number] [address] [place] [phone] February, [facility] [address] [id number] [address] [place] [id number] February, [facility] [address] [id number] [address] [place] [id number] February, [facility] [address] [id number] [address] [place] [phone] February, [facility] [address] [id number] [address] [place] [phone] February, [facility] [address] [id number] [address] [place] [id number] February, [facility] [address] [id number] [address] [place] [address], [place] [address] Jan, [facility] [address] [id number] [facility] [place] [place] [address] 13 Jan, 2015 [facility] [address] [id number] [facility] [place] [address] Dec, [facility] [address] [id number] [facility] [place] [address] Dec, [facility] [address] [id number] [address] [place] [address], [place] [address] Dec, [facility] [address] [id number] [address] [place] [address], [place] [address] Dec, [facility] [address] [id number] [address] [place] [address], [place] [address] Dec, [facility] [address] [id number] [address] [place] [address], [place] [address] Dec, [facility] [address] [id number] [address] [place] [address], [place] [address] Dec, [facility] [address] [id number] [address] [place] [address], [place] [address] Dec, [facility] [address] [id number] [address] [place] [address], [place] [address] Dec, [facility] [address] [id number] [address] [place] [address], [place] [address] Dec, [facility] [address] [id number] [address] [place] [address], [place] [address] Dec, [facility] [address] [id number] [address] [place] [address], [place] [address] Dec, [facility] [address] [id number] [address] [place] [address], [place] [address] Dec, [facility] [address] [id number] [address] [place] [address], [place] [address] Dec, [facility] [address] [id number] [address] [place] [address], [place] [address] Nov, [facility] [address] [id number] [address] [place] [address], [place] [address] Nov, [facility] [address] [id number] [address] [place] [address], [place] [address] Nov, [facility] [address] [id number] [address] [place] [address], [place] [address] Nov, [facility] [address] [id number] [address] [place] [address], [place] [address] Nov, [facility] [address] [id number] [address] [place] [address], [place] [address] Nov, [facility] [address] [id number] [address] [place] [address], [place] [address] Oct, [facility] [address] [id number] [address] [place] [address], [place] [address] Oct, [facility] [address] [id number] [address] [place] [address], [place] [address] Oct, [facility] [address] [id number] [address] [place] [address], [place] [address] Oct, [facility] [address] [id number] [address] [place] [address], [place] [address] Oct, [facility] [address] [id number] [address] [place] [address], [place] [address] Oct, [facility] [address] [id number] [address] [place] [address], [place] [address] Sep, [facility] [address] [id number] [address] [place] [address], [place] [address] Sep, [facility] [address] [id number] [address] [place] [address], [place] [address] Sep, [facility] [address] [id number] [address] [place] [address], [place] [address] Sep, [facility] [address] [id number] [address] [place] [address], [place] [address] Sep, [facility] [address] [id number] [address] [place] [address], [place] [address] Sep, [facility] [address] [id number] [address] [place] [address], [place] [address] Aug, [facility] [address] [id number] [address] [place] [address], [place] [address] Aug, [facility] [address] [id number] [address] [place] [address], [place] [address] Aug, [facility] [address] [id number] [address] [place] [address], [place] [address] Aug, [facility] [address] [id number] [address] [place] [address], [place] [address] Aug, [facility] [address] [id number] [address] [place] [address], [place] [address] Aug, [facility] [address] [id number] [address] [place] [address], [place] [address] Jul, [facility] [address] [id number] [address] [place] [address], [place] [address] Jul, [facility] [address] [id number] [address] [place] [address], [place] [address] Jul, [facility] [address] [id number] [address] [place] [address], [place] [address] Jul, [facility] [address] [id number] [address] [place] [address], [place] [address] Jul, [facility] [address] [id number] [address] [place] [address], [place] [address] Jul, [facility] [address] [id number] [address] [place] [address], [place] [address] Jul, [facility] [address] [id number] [address] [place] [address], [place] [address] Jul, [facility] [address] [id number] [address] [place] [address], [place] [address] Jul, [facility] [address] [id number] [address] [place] [address], [place] [address] Jul, [facility] [address] [id number] [address] [place] [address], [place] [address] Jul, [facility] [address] [id number] [address] [place] [address], [place] [address] Jun, [facility] [address] [id number] [address] [place] [address], [place] [address] Jun, [facility] [address] [id number] [address] [place] [address], [place] [address] Jun, [facility] [address] [id number] [address] [place] [address], [place] [address] Jun, [facility] [address] [id number] [address] [place] [address], [place] [address] Apr, [facility] [address] [id number] [address] [place] [address], [place] [address] Apr, [facility] [address] [id number] [address] [place] [address], [place] [address] Apr, [facility] [address] [id number] [address] [place] [address], [place] [address] Apr, [facility] [address] [id number] [address] [place] [address] Mar, [facility] [address] [id number] [address] [place] [address], [place] [address] Mar, [facility] [address] [id number] [address] [place] [address], [place] [address] Mar, [facility] [address] [id number] [address] [place] [address], [place] [address] Mar, [facility] [address] [id number] [address] [place] [address] 14 Mar, 2014 [facility] [place] [address] [facility] [id number] [address] [place] [address] Sep, [facility] [address] [facility] [id number] [address] [place] [address] Sep, [facility] [address] [facility] [id number] [address] [place] [address] Aug, IMMUNIZATIONS No Known Immunizations SOCIAL HISTORY [...] V C oct 2016 Hospitalization History Pneumonia [place]2018 Hospitalization History fistula in left arm 07/2018
--- OUTSIDE RECORDS SUMMARY | 2020-04-01 19:28 | XMS REPORT ---
Author Author Josephine WILLIS Organization [facility] Address [address] [place] [address] Care Team Providers Care Risk Management Professional Name Role Phone OLYA WILLIS Unavailable PROBLEMS Type Condition ICD9-CM Code XFU35-XV Code Onset Dates Condition S tatus SNOMED Code Problem Diabetes mellitus E11.9 Active 73 707540 Problem Hypertension I10 Active 5904342 3 Problem Paresthesias R20.2 Active 1049665 4 Problem Chronic kidney disease N18.9 Active 198310182 Problem Venous insufficiency I87.2 Active 12513821 Problem Diabetic polyneuropathy associated with type 2 d iabetes mellitus E11.42 Active 21315871 Problem Type 2 diabetes mellitus with diabetic autonomic (poly)neuropathy E11.43 Active 152404676 Problem Chronic skin ulcer with fat layer exposed L98.492 Active 40384675 Problem Chronic osteomyelitis of right foot with draining sinus M86.471 Active [id number] Problem PAD (peripheral artery disease) I73.9 Active 061132031 Problem Gastroparesis K31.84 Active 006045 006 Problem Seasonal allergic rhinitis due to other allergic trigger J30.89 Active 779246186 Problem GERD (gastroesophageal reflux disease) K21.9 Active 907474263 Problem Type 2 diabetes mellitus with foot ulcer E11.621 Active 26647212528529 Problem 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 Active 448078253 Problem Pressure ulcer of unspecified heel, stage 4 L89.60 4 Active 080728404 Problem Unsteady gait R26.81 Active 926852 08 ALLERGIES No Information ENCOUNTERS Encounter Location Date Diagnosis [facility] [address] [facility] [id number] [address] [place] [phone] May, [facility] [address] [facility] [id number] [address] [place] [phone] Apr, Chronic skin ulcer with fat layer exposed L98.492 [facility] [address] [id number] [address] [place] [phone] Apr, [address] [address] Apr, [facility] [address] [id number] [address] [place] [phone] Apr, Chronic skin ulcer with fat layer exposed L98.492 [facility] [address] [id number] [address] [place] [id number] Apr, Foot callus L84 and Nonheali ng wound of heel S91.309A [facility] [address] [facility] [id number] [address] [place] [phone] Apr, [address] [phone] Mar, [facility] [address] [facility] [id number] [address] [place] [phone] Mar, Diabetes mellitus E11.9 and Chronic skin ulcer with fat layer exposed L98.492 [facility] [address] [id number] [address] [place] [phone] Mar, Chronic skin ulcer with fat layer exposed L98.492 [facility] [address] [id number] [address] [place] [phone] Mar, [facility] [address] [facility] [id number] [address] [place] [phone] February, Chronic skin ulcer with fat layer exposed L98.492 and Encounter for medication monitoring Z51.81 [facility] [address] [facility] [id number] [address] [place] [phone] February, [facility] [address] [facility] [id number] [address] [place] [id number] February, Encounter for medication mon itoring Z51.81 [facility] [address] [facility] [id number] [address] [place] [phone] February, [facility] [address] [id number] [address] [place] [phone] February, [facility] [address] [id number] [address] [place] [id number] February, [facility] [address] [id number] [address] [place] [phone] Jan, Chronic skin ulcer with fat layer exposed L98.492 [facility] [address] [id number] [address] [place] [phone] Jan, [facility] [address] [id number] [address] [place] [phone] Dec, [facility] [address] [id number] [address] [place] [phone] Dec, Diabetic polyneuropathy asso ciated with type 2 diabetes mellitus E11.42 and PAD (peripheral artery disease) I73.9 [facility] [address] [facility] [id number] [address] [place] [phone] Dec, Chronic skin ulcer with fat layer exposed L98.492 [facility] [address] [id number] [address] [place] [id number] Dec, [facility] [address] [facility] [id number] [address] [place] [id number] Nov, [facility] [address] [facility] [id number] [address] [place] [phone] Nov, Skin ulcer of right foot wit h fat layer exposed L97.512 [facility] [address] [id number] [address] [place] [phone] Oct, [facility] [address] [facility] [id number] [address] [place] [id number] Oct, Skin ulcer of right foot wit h fat layer exposed L97.512 [facility] [address] [facility] [id number] [address] [place] [phone] Sep, Diabetes mellitus E11.9 [facility] [address] [id number] [address] [place] [phone] Sep, [facility] [address] [id number] [address] [place] [phone] Sep, [facility] [address] [id number] [address] [place] [phone] 17 Sep, 2018 [facility] [address] [id number] [address] [place] [phone] 14 Sep, 2018 Type 2 diabetes mellitus wit h foot ulcer E11.621 and Skin ulcer of right foot with fat layer exposed L97.512 [facility] [address] [id number] [address] [place] [phone] 13 Sep, 2018 Diabetes mellitus E11.9 [facility] [address] [id number] [address] [place] [phone] 07 Sep, 2018 [facility] [address] [id number] [address] [place] [phone] Aug, [facility] [address] [id number] [address] [place] [phone] Aug, [facility] [address] [facility] [id number] [address] [place] [phone] Aug, 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 [facility] [address] [id number] [address] [place] [phone] Aug, [facility] [address] [id number] [address] [place] [phone] Aug, [facility] [address] [id number] [address] [place] [phone] Aug, Bronchitis J40 [facility] [address] [id number] [address] [place] [phone] Aug, [facility] [address] [id number] [address] [place] [phone] Jul, [facility] [address] [id number] [address] [place] [id number] Jul, Chronic skin ulcer with fat layer exposed L98.492 [facility] [address] [id number] [address] [place] [phone] Jul, 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 [facility] [address] [id number] [address] [place] [phone] Jun, [facility] [address] [id number] [address] [place] [phone] Jun, [facility] [address] [id number] [address] [place] [phone] May, [facility] [address] [id number] [address] [place] [phone] May, Chronic skin ulcer with fat layer exposed L98.492 [facility] [address] [id number] [address] [place] [phone] Apr, [facility] [address] [id number] [address] [place] [address] Apr, Type 2 diabetes mellitus wit h foot ulcer E11.621 and Unsteady gait R26.81 [facility] [address] [facility] [id number] [address] [place] [phone] Mar, Decubitus ulcer of right mariana l, stage 3 L89.613 [facility] [address] [id number] [address] [place] [phone] Mar, [facility] [address] [facility] [id number] [address] [place] [phone] Mar, Pressure ulcer of unspecifie d heel, stage 4 L89.604 and Type 2 diabetes mellitus with foot ulcer E11.621 [facility] [address] [facility] [id number] [address] [place] [address] Mar, Encounter for medication mon itoring Z51.81 [facility] [address] [facility] [id number] [address] [place] [phone] Mar, Type 2 diabetes mellitus wit h foot ulcer E11.621 and Non-pressure chronic ulcer of right heel and midfoot with unspecified severity L97.419 [facility] [address] [id number] [address] [place] [id number] February, [facility] [address] [facility] [id number] [address] [place] [phone] Jan, Right ankle pain M25.571 [facility] [address] [id number] [address] [place] [phone] Dec, Right ankle pain M25.571 [place] [address] [facility] [id number] [address] [place] [phone] Dec, [place] [address] [facility] [id number] [address] [place] [phone] Dec, [facility] [address] [facility] [id number] [address] [place] [id number] Dec, Right ankle pain M25.571 [place] [address] [facility] [id number] [address] [place] [phone] Dec, Chronic skin ulcer with fat layer exposed L98.492 ; Type 2 diabetes mellitus with diabetic autonomic (poly)neuropathy E11.43 and Hypertension I10 [place] [address] [facility] [id number] [address] [place] [phone] Nov, [facility] [address] [facility] [id number] [address] [place] [phone] Nov, [facility] [address] [facility] [id number] [address] [place] [phone] Nov, [facility] [address] [facility] [id number] [address] [place] [address] Nov, Right ankle pain M25.571 and Chronic osteomyelitis of right foot with draining sinus M86.471 [place] [address] [id number] [address] [place] [address] Oct, Right ankle pain M25.571 [facility] [address] [id number] [address] [place] [phone] Oct, [facility] [address] [id number] [address] [place] [id number] Sep, Diabetes mellitus E11.9 [facility] [address] [id number] [address] [place] [id number] Sep, Diabetic polyneuropathy asso ciated with type 2 diabetes mellitus E11.42 and Venous insufficiency I87.2 [facility] [address] [id number] [address] [place] [address] Sep, Right ankle pain M25.571 [facility] [address] [id number] [address] [place] [address] Aug, Right ankle pain M25.571 [facility] [address] [id number] [address] [place] [phone] Aug, Chronic osteomyelitis of rig foot with draining sinus M86.471 [facility] [address] [id number] [address] [place] [phone] Aug, [facility] [address] [id number] [address] [place] [phone] Aug, [facility] [address] [id number] [address] [place] [phone] Aug, Chronic osteomyelitis of rig ht foot with draining sinus M86.471 [facility] [address] [id number] [address] [place] [phone] Jul, [facility] [address] [id number] [address] [place] [id number] Jul, [facility] [address] [id number] [address] [place] [id number] Jul, Chronic kidney disease N18.9 [facility] [address] [id number] [address] [place] [id number] Jul, Right ankle pain M25.571 [facility] [address] [facility] [id number] [address] [place] [phone] Jul, Non-healing ulcer of right f oot, unspecified ulcer stage L97.519 [facility] [address] [facility] [id number] [address] [place] [phone] Jul, Chronic skin ulcer with fat layer exposed L98.492 [facility] [address] [facility] [id number] [address] [place] [id number] Jul, Deformity of right ankle nitza nt M21.961 [facility] [address] [facility] [id number] [address] [place] [phone] Jun, [place] [address] [place] [id number] [address] [place] [phone] Jun, Diabetes mellitus E11.9 ; Sk in ulcer of right foot with fat layer exposed L97.512 and Encounter for immunization Z23 [facility] [address] [id number] [address] [place] [phone] Jun, Right ankle pain M25.571 [facility] [address] [facility] [id number] [address] [place] [address] May, Right ankle pain M25.571 [facility] [address] [facility] [id number] [address] [place] [address] Apr, Right ankle pain M25.571 [facility] [address] [facility] [id number] [address] [place] [address] Mar, Right ankle pain M25.571 [facility] [address] [facility] [id number] [address] [place] [id number] Mar, [facility] [address] [facility] [id number] [address] [place] [phone] February, Diabetes mellitus E11.9 and Diabetic polyneuropathy associated with type 2 diabetes mellitus E11.42 [facility] [address] [facility] [id number] [address] [place] [address] February, Hyperkalemia E87.5 [facility] [address] [facility] [id number] [address] [place] [address] February, Right ankle pain M25.571 [facility] [address] [facility] [id number] [address] [place] [address] Jan, Right ankle pain M25.571 [facility] [address] [facility] [id number] [address] [place] [address] Dec, Right ankle pain M25.571 [facility] [address] [place] [id number] [address] [place] [id number] Dec, Right ankle pain M25.571 [facility] [address] [place] [id number] [address] [place] [id number] Nov, [facility] [address] [place] [id number] [address] [place] [phone] Nov, Diabetes mellitus E11.9 ; Hy pertension I10 ; Gastroparesis K31.84 and Type 2 diabetes mellitus with diabetic autonomic (poly)neuropathy E11.43 [facility] [address] [place] [id number] [address] [place] [id number] Nov, Right ankle pain M25.571 [facility] [address] [facility] [id number] [address] [place] [address] Oct, Right ankle pain M25.571 [facility] [address] [facility] [id number] [address] [place] [phone] Oct, [facility] [address] [place] [id number] [address] [place] [phone] Oct, [facility] [address] [place] [id number] [address] [place] [id number] Sep, [facility] [address] [place] [id number] [address] [place] [phone] Sep, Hypertension I10 [facility] [address] [facility] [id number] [address] [place] [id number] Sep, Chronic kidney disease N18.9 ; Right ankle pain M25.571 and GERD (gastroesophageal reflux disease) K21.9 [facility] [address] [facility] [id number] [address] [place] [phone] Jul, [facility] [address] [facility] [id number] [address] [place] [phone] Jul, Encounter for immunization Z 23 ; Venous insufficiency I87.2 and Diabetic polyneuropathy associated with type 2 diabetes mellitus E11.42 [facility] [address] [facility] [id number] [address] [place] [phone] Jul, [facility] [address] [place] [id number] [address] [place] [phone] Jul, Diabetes mellitus E11.9 [facility] [address] [facility] [id number] [address] [place] [phone] May, [facility] [address] [place] [id number] [address] [place] [id number] Apr, [facility] [address] [facility] [id number] [address] [place] [phone] Mar, Right ankle pain M25.571 [facility] [address] [facility] [id number] [address] [place] [id number] Mar, [facility] [address] [facility] [id number] [address] [place] [phone] February, Paresthesias R20.2 [facility] [address] [facility] [id number] [address] [place] [phone] February, [facility] [address] [place] [id number] [address] [place] [id number] February, 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 [facility] [address] [id number] [address] [place] [phone] February, Diabetes mellitus E11.9 [facility] [address] [id number] [address] [place] [phone] February, [facility] [address] [id number] [address] [place] [phone] February, Polyneuropathy in diabetes 3 57.2 and Paresthesias R20.2 [facility] [address] [id number] [address] [place] [phone] February, [facility] [address] [id number] [address] [place] [phone] February, [facility] [address] [id number] [address] [place] [phone] February, [facility] [address] [id number] [address] [place] [phone] February, Diabetes mellitus E11.9 [facility] [address] [id number] [address] [place] [phone] February, [facility] [address] [id number] [address] [place] [phone] February, Hyperkalemia E87.5 [facility] [address] [id number] [address] [place] [phone] Jan, Hypertension I10 [facility] [address] [id number] [address] [place] [id number] Jan, Insomnia G47.00 [facility] [address] [id number] [address] [place] [phone] Jan, [facility] [address] [facility] [id number] [address] [place] [phone] Jan, [facility] [address] [facility] [id number] [address] [place] [phone] Jan, [facility] [address] [id number] [address] [place] [phone] Dec, Right ankle pain M25.571 [facility] [address] [id number] [address] [place] [phone] Dec, GERD (gastroesophageal reflu x disease) K21.9 [facility] [address] [id number] [address] [place] [phone] Dec, Insomnia G47.00 [facility] [address] [id number] [address] [place] [phone] 18 Dec, 2015 Hypertension I10 and Hyperka lemia 276.7 [facility] [address] [facility] [id number] [address] [place] [phone] 10 Dec, 2015 Chronic kidney disease N18.9 [facility] [address] [facility] [id number] [address] [place] [phone] Dec, [facility] [address] [facility] [id number] [address] [place] [phone] Dec, Hyperkalemia E87.5 [facility] [address] [facility] [id number] [address] [place] [phone] Dec, Chronic kidney disease N18.9 and Right ankle pain M25.571 [facility] [address] [facility] [id number] [address] [place] [id number] 11 Nov, 2015 GERD (gastroesophageal reflu x disease) K21.9 [facility] [address] [facility] [id number] [address] [place] [id number] Nov, Right ankle pain M25.571 [facility] [address] [facility] [id number] [address] [place] [id number] Nov, Diabetes mellitus E11.9 [facility] [address] [facility] [id number] [address] [place] [phone] Oct, [facility] [address] [facility] [id number] [address] [place] [id number] Oct, [facility] [address] [id number] [address] [place] [phone] Oct, [facility] [address] [id number] [address] [place] [id number] Oct, Hyperkalemia E87.5 [facility] [address] [id number] [address] [place] [id number] Oct, [facility] [address] [id number] [address] [place] [id number] Oct, Hyperkalemia E87.5 [facility] [address] [id number] [address] [place] [phone] Sep, [facility] [address] [id number] [address] [place] [address] Sep, [facility] [address] [id number] [address] [place] [address] Sep, [facility] [address] [id number] [address] [place] [address] Sep, [facility] [address] [id number] [address] [place] [id number] Sep, Right ankle pain M25.571 [facility] [address] [id number] [address] [place] [id number] 30 Aug, 2015 Chronic kidney disease N18.9 [facility] [address] [id number] [address] [place] [address] Aug, [facility] [address] [id number] [address] [place] [address] Aug, Hyperkalemia E87.5 [facility] [address] [id number] [address] [place] [id number] 13 Aug, 2015 [facility] [address] [id number] [address] [place] [id number] 20 Jul, 2015 [facility] [address] [id number] [address] [place] [address] Jul, [facility] [address] [id number] [address] [place] [id number] Jul, [facility] [address] [id number] [address] [place] [address] Jul, Diabetes mellitus E11.9 ; En counter for immunization Z23 ; Hypertension I10 and Hyperkalemia E87.5 [facility] [address] [id number] [address] [place] [phone] Jul, [facility] [address] [id number] [address] [place] [address] Jul, Hyperkalemia E87.5 [facility] [address] [id number] [address] [place] [address] Jul, Hyperkalemia E87.5 [facility] [address] [id number] [address] [place] [address] Jun, [facility] [address] [id number] [address] [place] [id number] Jun, [facility] [address] [id number] [address] [place] [phone] Jun, [facility] [address] [id number] [address] [place] [id number] Jun, [facility] [address] [id number] [address] [place] [id number] May, [facility] [address] [id number] [address] [place] [id number] May, [facility] [address] [id number] [address] [place] [address] May, [facility] [address] [facility] [id number] [address] [place] [id number] May, Hyperkalemia 276.7 [facility] [address] [id number] [address] [place] [id number] May, [facility] [address] [id number] [address] [place] [address], [place] [address] Apr, Hyperkalemia 276.7 [facility] [address] [id number] [address] [place] [address], [place] [address] Apr, [facility] [address] [id number] [address] [place] [address], [place] [address] Apr, [facility] [address] [id number] [address] [place] [address], [place] [address] Apr, [facility] [address] [id number] [address] [place] [address], [place] [address] Apr, [facility] [address] [id number] [address] [place] [address], [place] [address] Apr, Hyperkalemia 276.7 [facility] [address] [id number] [address] [place] [address], [place] [address] Apr, [facility] [address] [id number] [address] [place] [address], [place] [address] Apr, [facility] [address] [id number] [address] [place] [address], [place] [address] Mar, [facility] [address] [id number] [address] [place] [address], [place] [address] Mar, Hyperkalemia 276.7 [facility] [address] [id number] [address] [place] [address], [place] [address] Mar, Hyperkalemia 276.7 [facility] [address] [id number] [address] [place] [address], [place] [address] Mar, [facility] [address] [id number] [address] [place] [address], [place] [address] Mar, [facility] [address] [id number] [address] [place] [address], [place] [address] Mar, [facility] [address] [id number] [address] [place] [id number] Mar, [facility] [address] [id number] [address] [place] [address] Mar, Anserine bursitis 726.61 [facility] [address] [id number] [address] [place] [address] Mar, Asthma 493.90 and Hyperkalem ia 276.7 [facility] [address] [id number] [address] [place] [id number] Mar, [facility] [address] [id number] [address] [place] [id number] February, [facility] [address] [id number] [address] [place] [id number] February, [facility] [address] [id number] [address] [place] [id number] February, [facility] [address] [id number] [address] [place] [id number] February, [facility] [address] [id number] [address] [place] [phone] February, [facility] [address] [id number] [address] [place] [id number] February, [facility] [address] [id number] [address] [place] [address] February, [facility] [address] [id number] [address] [place] [phone] February, [facility] [address] [id number] [address] [place] [address] February, [facility] [address] [id number] [address] [place] [id number] Jan, [facility] [address] [id number] [address] [place] [id number] Jan, [facility] [address] [id number] [address] [place] [address] Dec, [facility] [address] [id number] [address] [place] [address], [place] [address] Dec, [facility] [address] [id number] [address] [place] [address], [place] [address] Dec, [facility] [address] [id number] [address] [place] [address], [place] [address] Dec, [facility] [address] [id number] [address] [place] [address], [place] [address] Dec, [facility] [address] [id number] [address] [place] [address], [place] [address] Dec, [facility] [address] [id number] [address] [place] [address], [place] [address] Dec, [facility] [address] [id number] [address] [place] [address], [place] [address] Dec, [facility] [address] [id number] [address] [place] [address], [place] [address] Dec, [facility] [address] [id number] [address] [place] [address], [place] [address] Dec, [facility] [address] [id number] [address] [place] [address], [place] [address] Dec, [facility] [address] [id number] [address] [place] [address], [place] [address] Dec, [facility] [address] [id number] [address] [place] [address], [place] [address] Dec, [facility] [address] [id number] [address] [place] [address], [place] [address] Dec, [facility] [address] [id number] [address] [place] [address], [place] [address] Nov, [facility] [address] [id number] [address] [place] [address], [place] [address] Nov, [facility] [address] [id number] [address] [place] [address], [place] [address] Nov, [facility] [address] [id number] [address] [place] [address], [place] [address] Nov, [facility] [address] [id number] [address] [place] [address], [place] [address] Nov, [facility] [address] [id number] [address] [place] [address], [place] [address] Nov, [facility] [address] [id number] [address] [place] [address], [place] [address] Oct, [facility] [address] [id number] [address] [place] [address], [place] [address] Oct, [facility] [address] [id number] [address] [place] [address], [place] [address] Oct, [facility] [address] [id number] [address] [place] [address], [place] [address] Oct, [facility] [address] [id number] [address] [place] [address], [place] [address] Oct, [facility] [address] [id number] [address] [place] [address], [place] [address] Oct, [facility] [address] [id number] [address] [place] [address], [place] [address] Sep, [facility] [address] [id number] [address] [place] [address], [place] [address] Sep, [facility] [address] [id number] [address] [place] [address], [place] [address] Sep, [facility] [address] [id number] [address] [place] [address], [place] [address] Sep, [facility] [address] [id number] [address] [place] [address], [place] [address] Sep, [facility] [address] [id number] [address] [place] [address] Sep, [facility] [address] [id number] [address] [place] [address], [place] [address] Aug, [facility] [address] [id number] [address] [place] [address], [place] [address] Aug, [facility] [address] [id number] [address] [place] [address], [place] [address] Aug, [facility] [address] [id number] [address] [place] [address] Aug, [facility] [address] [id number] [address] [place] [address], [place] [address] Aug, [facility] [address] [id number] [address] [place] [address], [place] [address] Aug, [facility] [address] [id number] [address] [place] [address], [place] [address] Jul, [facility] [address] [id number] [address] [place] [address], [place] [address] Jul, [facility] [address] [id number] [address] [place] [address], [place] [address] Jul, [facility] [address] [id number] [address] [place] [address], [place] [address] Jul, [facility] [address] [id number] [address] [place] [address] Jul, [facility] [address] [id number] [address] [place] [address] Jul, [facility] [address] [id number] [address] [place] [address], [place] [address] Jul, [facility] [address] [id number] [address] [place] [address] Jul, [facility] [address] [id number] [address] [place] [address], [place] [address] Jul, [facility] [address] [id number] [address] [place] [address], [place] [address] Jul, [facility] [address] [id number] [address] [place] [address], [place] [address] Jul, [facility] [address] [id number] [address] [place] [address], [place] [address] Jun, [facility] [address] [id number] [address] [place] [address], [place] [address] Jun, [facility] [address] [id number] [address] [place] [address], [place] [address] Jun, [facility] [address] [id number] [address] [place] [address], [place] [address] Jun, [facility] [address] [id number] [address] [place] [address], [place] [address] Apr, [facility] [address] [id number] [address] [place] [address], [place] [address] Apr, [facility] [address] [id number] [address] [place] [address], [place] [address] Apr, [facility] [address] [id number] [address] [place] [address], [place] [address] Apr, [facility] [address] [id number] [address] [place] [address], [place] [address] Mar, [facility] [address] [id number] [address] [place] [address], [place] [address] Mar, [facility] [address] [id number] [address] [place] [address], [place] [address] Mar, [facility] [address] [id number] [address] [place] [address], [place] [address] Mar, [facility] [address] [id number] [address] [place] [address], [place] [address] Mar, [facility] [address] [id number] [address] [place] [address], [place] [address] Sep, [facility] [address] [facility] [id number] [address] [place] [address] Sep, [facility] [address] [facility] [id number] [address] [place] [address] Aug, IMMUNIZATIONS No Known Immunizations SOCIAL HISTORY [...]
--- OUTSIDE RECORDS SUMMARY | 2020-04-01 19:29 | XMS REPORT ---
Author Author Josephine WILLIS Organization [facility] Address [address] [place] [address] Care Team Providers Care Physical Chemistry Teacher Name Role Phone OLYA WILLIS Unavailable PROBLEMS Type Condition ICD9-CM Code [id number] Code Onset Dates Condition S tatus SNOMED Code Problem Diabetes mellitus E11.9 Active 73 112240 Problem Hypertension I10 Active 5044431 3 Problem Paresthesias R20.2 Active 6440964 4 Problem Chronic kidney disease N18.9 Active 225573944 Problem Venous insufficiency I87.2 Active 46596551 Problem Diabetic polyneuropathy associated with type 2 d iabetes mellitus E11.42 Active 26309650 Problem Type 2 diabetes mellitus with diabetic autonomic (poly)neuropathy E11.43 Active 648964675 Problem Chronic skin ulcer with fat layer exposed L98.492 Active 30424313 Problem Chronic osteomyelitis of right foot with draining sinus M86.471 Active 012348141207890 Problem PAD (peripheral artery disease) I73.9 Active 346359901 Problem Gastroparesis K31.84 Active 467964 006 Problem Seasonal allergic rhinitis due to other allergic trigger J30.89 Active 023965267 Problem GERD (gastroesophageal reflux disease) K21.9 Active 119293501 Problem Type 2 diabetes mellitus with foot ulcer E11.621 Active 66153682064771 Problem 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 Active 306688466 Problem Pressure ulcer of unspecified heel, stage 4 L89.60 4 Active 015567646 Problem Unsteady gait R26.81 Active 111218 08 ALLERGIES No Information ENCOUNTERS Encounter Location Date Diagnosis [facility] [address] [facility] [id number] [address] [place] [phone] May, [facility] [address] [facility] [id number] [address] [place] [address] Apr, Chronic skin ulcer with fat layer exposed L98.492 [facility] [address] [id number] [address] [place] [address] Apr, [address] [phone] Apr, [facility] [address] [id number] [address] [place] [address] Apr, Chronic skin ulcer with fat layer exposed L98.492 [facility] [address] [id number] [address] [place] [phone] Apr, Foot callus L84 and Nonheali ng wound of heel S91.309A [facility] [address] [facility] [id number] [address] [place] [phone] Apr, [address] [phone] Mar, [facility] [address] [facility] [id number] [address] [place] [address] Mar, Diabetes mellitus E11.9 and Chronic skin ulcer with fat layer exposed L98.492 [facility] [address] [id number] [address] [place] [phone] Mar, Chronic skin ulcer with fat layer exposed L98.492 [facility] [address] [id number] [address] [place] [phone] Mar, [facility] [address] [facility] [id number] [address] [place] [phone] February, Chronic skin ulcer with fat layer exposed L98.492 and Encounter for medication monitoring Z51.81 [facility] [address] [facility] [id number] [address] [place] [phone] February, [facility] [address] [facility] [id number] [address] [place] [phone] February, Encounter for medication mon itoring Z51.81 [facility] [address] [facility] [id number] [address] [place] [phone] February, [facility] [address] [id number] [address] [place] [phone] February, [facility] [address] [id number] [address] [place] [phone] February, [facility] [address] [id number] [address] [place] [phone] Jan, Chronic skin ulcer with fat layer exposed L98.492 [facility] [address] [id number] [address] [place] [phone] Jan, [facility] [address] [id number] [address] [place] [id number] Dec, [facility] [address] [id number] [address] [place] [phone] Dec, Diabetic polyneuropathy asso ciated with type 2 diabetes mellitus E11.42 and PAD (peripheral artery disease) I73.9 [facility] [address] [facility] [id number] [address] [place] [phone] Dec, Chronic skin ulcer with fat layer exposed L98.492 [facility] [address] [id number] [address] [place] [phone] Dec, [facility] [address] [facility] [id number] [address] [place] [phone] Nov, [facility] [address] [facility] [id number] [address] [place] [phone] Nov, Skin ulcer of right foot wit h fat layer exposed L97.512 [facility] [address] [id number] [address] [place] [id number] Oct, [facility] [address] [facility] [id number] [address] [place] [phone] Oct, Skin ulcer of right foot wit h fat layer exposed L97.512 [facility] [address] [facility] [id number] [address] [place] [phone] Sep, Diabetes mellitus E11.9 [facility] [address] [id number] [address] [place] [phone] Sep, [facility] [address] [id number] [address] [place] [phone] Sep, [facility] [address] [id number] [address] [place] [phone] 17 Sep, 2018 [facility] [address] [id number] [address] [place] [address] 14 Sep, 2018 Type 2 diabetes mellitus wit h foot ulcer E11.621 and Skin ulcer of right foot with fat layer exposed L97.512 [facility] [address] [id number] [address] [place] [phone] 13 Sep, 2018 Diabetes mellitus E11.9 [facility] [address] [id number] [address] [place] [id number] 07 Sep, 2018 [facility] [address] [id number] [address] [place] [phone] Aug, [facility] [address] [id number] [address] [place] [phone] Aug, [facility] [address] [facility] [id number] [address] [place] [id number] Aug, 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 [facility] [address] [id number] [address] [place] [id number] Aug, [facility] [address] [id number] [address] [place] [phone] Aug, [facility] [address] [id number] [address] [place] [phone] Aug, Bronchitis J40 [facility] [address] [id number] [address] [place] [phone] Aug, [facility] [address] [id number] [address] [place] [phone] Jul, [facility] [address] [id number] [address] [place] [address] Jul, Chronic skin ulcer with fat layer exposed L98.492 [facility] [address] [id number] [address] [place] [id number] Jul, 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 [facility] [address] [id number] [address] [place] [phone] Jun, [facility] [address] [id number] [address] [place] [id number] Jun, [facility] [address] [id number] [address] [place] [address] May, [facility] [address] [id number] [address] [place] [address] May, Chronic skin ulcer with fat layer exposed L98.492 [facility] [address] [id number] [address] [place] [id number] Apr, [facility] [address] [id number] [address] [place] [phone] Apr, Type 2 diabetes mellitus wit h foot ulcer E11.621 and Unsteady gait R26.81 [facility] [address] [facility] [id number] [address] [place] [address] Mar, Decubitus ulcer of right mariana l, stage 3 L89.613 [facility] [address] [id number] [address] [place] [phone] Mar, [facility] [address] [facility] [id number] [address] [place] [phone] Mar, Pressure ulcer of unspecifie d heel, stage 4 L89.604 and Type 2 diabetes mellitus with foot ulcer E11.621 [facility] [address] [facility] [id number] [address] [place] [phone] Mar, Encounter for medication mon itoring Z51.81 [facility] [address] [facility] [id number] [address] [place] [phone] Mar, Type 2 diabetes mellitus wit h foot ulcer E11.621 and Non-pressure chronic ulcer of right heel and midfoot with unspecified severity L97.419 [facility] [address] [id number] [address] [place] [phone] February, [facility] [address] [facility] [id number] [address] [place] [id number] Jan, Right ankle pain M25.571 [facility] [address] [id number] [address] [place] [phone] Dec, Right ankle pain M25.571 [place] [address] [facility] [id number] [address] [place] [phone] Dec, [place] [address] [facility] [id number] [address] [place] [phone] Dec, [facility] [address] [facility] [id number] [address] [place] [phone] Dec, Right ankle pain M25.571 [place] [address] [facility] [id number] [address] [place] [address] Dec, Chronic skin ulcer with fat layer exposed L98.492 ; Type 2 diabetes mellitus with diabetic autonomic (poly)neuropathy E11.43 and Hypertension I10 [place] [address] [facility] [id number] [address] [place] [phone] Nov, [facility] [address] [facility] [id number] [address] [place] [phone] Nov, [facility] [address] [facility] [id number] [address] [place] [phone] Nov, [facility] [address] [facility] [id number] [address] [place] [address] Nov, Right ankle pain M25.571 and Chronic osteomyelitis of right foot with draining sinus M86.471 [place] [address] [id number] [address] [place] [address] Oct, Right ankle pain M25.571 [facility] [address] [id number] [address] [place] [phone] Oct, [facility] [address] [id number] [address] [place] [phone] Sep, Diabetes mellitus E11.9 [facility] [address] [id number] [address] [place] [phone] Sep, Diabetic polyneuropathy asso ciated with type 2 diabetes mellitus E11.42 and Venous insufficiency I87.2 [facility] [address] [id number] [address] [place] [id number] Sep, Right ankle pain M25.571 [facility] [address] [id number] [address] [place] [id number] Aug, Right ankle pain M25.571 [facility] [address] [id number] [address] [place] [address] Aug, Chronic osteomyelitis of rig foot with draining sinus M86.471 [facility] [address] [id number] [address] [place] [phone] Aug, [facility] [address] [id number] [address] [place] [phone] Aug, [facility] [address] [id number] [address] [place] [phone] Aug, Chronic osteomyelitis of rig ht foot with draining sinus M86.471 [facility] [address] [id number] [address] [place] [phone] Jul, [facility] [address] [id number] [address] [place] [id number] Jul, [facility] [address] [id number] [address] [place] [id number] Jul, Chronic kidney disease N18.9 [facility] [address] [id number] [address] [place] [address] Jul, Right ankle pain M25.571 [facility] [address] [facility] [id number] [address] [place] [id number] Jul, Non-healing ulcer of right f oot, unspecified ulcer stage L97.519 [facility] [address] [facility] [id number] [address] [place] [address] Jul, Chronic skin ulcer with fat layer exposed L98.492 [facility] [address] [facility] [id number] [address] [place] [address] Jul, Deformity of right ankle nitza nt M21.961 [facility] [address] [facility] [id number] [address] [place] [address] Jun, [place] [address] [place] [id number] [address] [place] [phone] Jun, Diabetes mellitus E11.9 ; Sk in ulcer of right foot with fat layer exposed L97.512 and Encounter for immunization Z23 [facility] [address] [id number] [address] [place] [phone] Jun, Right ankle pain M25.571 [facility] [address] [facility] [id number] [address] [place] [address] May, Right ankle pain M25.571 [facility] [address] [facility] [id number] [address] [place] [address] Apr, Right ankle pain M25.571 [facility] [address] [facility] [id number] [address] [place] [address] Mar, Right ankle pain M25.571 [facility] [address] [facility] [id number] [address] [place] [phone] Mar, [facility] [address] [facility] [id number] [address] [place] [address] February, Diabetes mellitus E11.9 and Diabetic polyneuropathy associated with type 2 diabetes mellitus E11.42 [facility] [address] [facility] [id number] [address] [place] [address] February, Hyperkalemia E87.5 [facility] [address] [facility] [id number] [address] [place] [id number] February, Right ankle pain M25.571 [facility] [address] [facility] [id number] [address] [place] [address] Jan, Right ankle pain M25.571 [facility] [address] [facility] [id number] [address] [place] [address] Dec, Right ankle pain M25.571 [facility] [address] [place] [id number] [address] [place] [phone] Dec, Right ankle pain M25.571 [facility] [address] [place] [id number] [address] [place] [id number] Nov, [facility] [address] [place] [id number] [address] [place] [phone] Nov, Diabetes mellitus E11.9 ; Hy pertension I10 ; Gastroparesis K31.84 and Type 2 diabetes mellitus with diabetic autonomic (poly)neuropathy E11.43 [facility] [address] [place] [id number] [address] [place] [id number] Nov, Right ankle pain M25.571 [facility] [address] [facility] [id number] [address] [place] [address] Oct, Right ankle pain M25.571 [facility] [address] [facility] [id number] [address] [place] [address] Oct, [facility] [address] [place] [id number] [address] [place] [phone] Oct, [facility] [address] [place] [id number] [address] [place] [phone] Sep, [facility] [address] [place] [id number] [address] [place] [phone] Sep, Hypertension I10 [facility] [address] [facility] [id number] [address] [place] [address] Sep, Chronic kidney disease N18.9 ; Right ankle pain M25.571 and GERD (gastroesophageal reflux disease) K21.9 [facility] [address] [facility] [id number] [address] [place] [phone] Jul, [facility] [address] [facility] [id number] [address] [place] [phone] Jul, Encounter for immunization Z 23 ; Venous insufficiency I87.2 and Diabetic polyneuropathy associated with type 2 diabetes mellitus E11.42 [facility] [address] [facility] [id number] [address] [place] [phone] Jul, [facility] [address] [place] [id number] [address] [place] [id number] Jul, Diabetes mellitus E11.9 [facility] [address] [facility] [id number] [address] [place] [phone] May, [facility] [address] [place] [id number] [address] [place] [phone] Apr, [facility] [address] [facility] [id number] [address] [place] [id number] Mar, Right ankle pain M25.571 [facility] [address] [facility] [id number] [address] [place] [id number] Mar, [facility] [address] [facility] [id number] [address] [place] [phone] February, Paresthesias R20.2 [facility] [address] [facility] [id number] [address] [place] [id number] February, [facility] [address] [place] [id number] [address] [place] [id number] February, 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 [facility] [address] [id number] [address] [place] [id number] February, Diabetes mellitus E11.9 [facility] [address] [id number] [address] [place] [phone] February, [facility] [address] [id number] [address] [place] [phone] February, Polyneuropathy in diabetes 3 57.2 and Paresthesias R20.2 [facility] [address] [id number] [address] [place] [phone] February, [facility] [address] [id number] [address] [place] [id number] February, [facility] [address] [id number] [address] [place] [phone] February, [facility] [address] [id number] [address] [place] [phone] February, Diabetes mellitus E11.9 [facility] [address] [id number] [address] [place] [phone] February, [facility] [address] [id number] [address] [place] [phone] February, Hyperkalemia E87.5 [facility] [address] [id number] [address] [place] [phone] Jan, Hypertension I10 [facility] [address] [id number] [address] [place] [phone] Jan, Insomnia G47.00 [facility] [address] [id number] [address] [place] [phone] Jan, [facility] [address] [facility] [id number] [address] [place] [phone] Jan, [facility] [address] [facility] [id number] [address] [place] [phone] Jan, [facility] [address] [id number] [address] [place] [phone] Dec, Right ankle pain M25.571 [facility] [address] [id number] [address] [place] [phone] Dec, GERD (gastroesophageal reflu x disease) K21.9 [facility] [address] [id number] [address] [place] [phone] Dec, Insomnia G47.00 [facility] [address] [id number] [address] [place] [id number] 18 Dec, 2015 Hypertension I10 and Hyperka lemia 276.7 [facility] [address] [facility] [id number] [address] [place] [phone] 10 Dec, 2015 Chronic kidney disease N18.9 [facility] [address] [facility] [id number] [address] [place] [phone] Dec, [facility] [address] [facility] [id number] [address] [place] [phone] Dec, Hyperkalemia E87.5 [facility] [address] [facility] [id number] [address] [place] [phone] Dec, Chronic kidney disease N18.9 and Right ankle pain M25.571 [facility] [address] [facility] [id number] [address] [place] [phone] 11 Nov, 2015 GERD (gastroesophageal reflu x disease) K21.9 [facility] [address] [facility] [id number] [address] [place] [phone] Nov, Right ankle pain M25.571 [facility] [address] [facility] [id number] [address] [place] [phone] Nov, Diabetes mellitus E11.9 [facility] [address] [facility] [id number] [address] [place] [phone] Oct, [facility] [address] [facility] [id number] [address] [place] [phone] Oct, [facility] [address] [id number] [address] [place] [phone] Oct, [facility] [address] [id number] [address] [place] [phone] Oct, Hyperkalemia E87.5 [facility] [facility] [address] [id number] [address] [place] [address] Oct, [facility] [address] [id number] [address] [place] [address] Oct, Hyperkalemia E87.5 [facility] [address] [id number] [address] [place] [id number] Sep, [facility] [address] [id number] [address] [place] [address] Sep, [facility] [address] [id number] [address] [place] [address] Sep, [facility] [address] [id number] [address] [place] [id number] Sep, [facility] [address] [id number] [address] [place] [address] Sep, Right ankle pain M25.571 [facility] [address] [id number] [address] [place] [id number] 30 Aug, 2015 Chronic kidney disease N18.9 [facility] [address] [id number] [address] [place] [id number] Aug, [facility] [address] [id number] [address] [place] [address] Aug, Hyperkalemia E87.5 [facility] [address] [id number] [address] [place] [phone] 13 Aug, 2015 [facility] [address] [id number] [address] [place] [id number] 20 Jul, 2015 [facility] [address] [id number] [address] [place] [address] Jul, [facility] [address] [id number] [address] [place] [id number] Jul, [facility] [address] [id number] [address] [place] [id number] Jul, Diabetes mellitus E11.9 ; En counter for immunization Z23 ; Hypertension I10 and Hyperkalemia E87.5 [facility] [address] [id number] [address] [place] [id number] Jul, [facility] [address] [id number] [address] [place] [id number] Jul, Hyperkalemia E87.5 [facility] [address] [id number] [address] [place] [id number] Jul, Hyperkalemia E87.5 [facility] [address] [id number] [address] [place] [address] Jun, [facility] [address] [id number] [address] [place] [id number] Jun, [facility] [address] [id number] [address] [place] [phone] Jun, [facility] [address] [id number] [address] [place] [id number] Jun, [facility] [address] [id number] [address] [place] [id number] May, [facility] [address] [id number] [address] [place] [id number] May, [facility] [address] [id number] [address] [place] [id number] May, [facility] [address] [facility] [id number] [address] [place] [id number] May, Hyperkalemia 276.7 [facility] [address] [id number] [address] [place] [id number] May, [facility] [address] [id number] [address] [place] [address], [place] [address] Apr, Hyperkalemia 276.7 [facility] [address] [id number] [address] [place] [address], [place] [address] Apr, [facility] [address] [id number] [address] [place] [address], [place] [address] Apr, [facility] [address] [id number] [address] [place] [address], [place] [address] Apr, [facility] [address] [id number] [address] [place] [address], [place] [address] Apr, [facility] [address] [id number] [address] [place] [address], [place] [address] Apr, Hyperkalemia 276.7 [facility] [address] [id number] [address] [place] [address], [place] [address] Apr, [facility] [address] [id number] [address] [place] [address], [place] [address] Apr, [facility] [address] [id number] [address] [place] [address], [place] [address] Mar, [facility] [address] [id number] [address] [place] [address], [place] [address] Mar, Hyperkalemia 276.7 [facility] [address] [id number] [address] [place] [address], [place] [address] Mar, Hyperkalemia 276.7 [facility] [address] [id number] [address] [place] [address], [place] [address] Mar, [facility] [address] [id number] [address] [place] [address], [place] [address] Mar, [facility] [address] [id number] [address] [place] [address], [place] [address] Mar, [facility] [address] [id number] [address] [place] [id number] Mar, [facility] [address] [id number] [address] [place] [id number] Mar, Anserine bursitis 726.61 [facility] [address] [id number] [address] [place] [id number] Mar, Asthma 493.90 and Hyperkalem ia 276.7 [facility] [address] [id number] [address] [place] [id number] Mar, [facility] [address] [id number] [address] [place] [id number] February, [facility] [address] [id number] [address] [place] [id number] February, [facility] [address] [id number] [address] [place] [id number] February, [facility] [address] [id number] [address] [place] [id number] February, [facility] [address] [id number] [address] [place] [phone] February, [facility] [address] [id number] [address] [place] [id number] February, [facility] [address] [id number] [address] [place] [id number] February, [facility] [address] [id number] [address] [place] [id number] February, [facility] [address] [id number] [address] [place] [id number] February, [facility] [address] [id number] [address] [place] [id number] Jan, [facility] [address] [id number] [address] [place] [phone] Jan, [facility] [address] [id number] [address] [place] [id number] Dec, [facility] [address] [id number] [address] [place] [address], [place] [address] Dec, [facility] [address] [id number] [address] [place] [address], [place] [address] Dec, [facility] [address] [id number] [address] [place] [address], [place] [address] Dec, [facility] [address] [id number] [address] [place] [address], [place] [address] Dec, [facility] [address] [id number] [address] [place] [address], [place] [address] Dec, [facility] [address] [id number] [address] [place] [address], [place] [address] Dec, [facility] [address] [id number] [address] [place] [address], [place] [address] Dec, [facility] [address] [id number] [address] [place] [address], [place] [address] Dec, [facility] [address] [id number] [address] [place] [address], [place] [address] Dec, [facility] [address] [id number] [address] [place] [address], [place] [address] Dec, [facility] [address] [id number] [address] [place] [address], [place] [address] Dec, [facility] [address] [id number] [address] [place] [address], [place] [address] Dec, [facility] [address] [id number] [address] [place] [address], [place] [address] Dec, [facility] [address] [id number] [address] [place] [address], [place] [address] Nov, [facility] [address] [id number] [address] [place] [address], [place] [address] Nov, [facility] [address] [id number] [address] [place] [address], [place] [address] Nov, [facility] [address] [id number] [address] [place] [address], [place] [address] Nov, [facility] [address] [id number] [address] [place] [address], [place] [address] Nov, [facility] [address] [id number] [address] [place] [address], [place] [address] Nov, [facility] [address] [id number] [address] [place] [address], [place] [address] Oct, [facility] [address] [id number] [address] [place] [address], [place] [address] Oct, [facility] [address] [id number] [address] [place] [address], [place] [address] Oct, [facility] [address] [id number] [address] [place] [address], [place] [address] Oct, [facility] [address] [id number] [address] [place] [address], [place] [address] Oct, [facility] [address] [id number] [address] [place] [address], [place] [address] Oct, [facility] [address] [id number] [address] [place] [address], [place] [address] Sep, [facility] [address] [id number] [address] [place] [address], [place] [address] Sep, [facility] [address] [id number] [address] [place] [address], [place] [address] Sep, [facility] [address] [id number] [address] [place] [address], [place] [address] Sep, [facility] [address] [id number] [address] [place] [address], [place] [address] Sep, [facility] [address] [id number] [address] [place] [id number] Sep, [facility] [address] [id number] [address] [place] [address], [place] [address] Aug, [facility] [address] [id number] [address] [place] [address], [place] [address] Aug, [facility] [address] [id number] [address] [place] [address], [place] [address] Aug, [facility] [address] [id number] [address] [place] [phone] Aug, [facility] [address] [id number] [address] [place] [address], [place] [address] Aug, [facility] [address] [id number] [address] [place] [address], [place] [address] Aug, [facility] [address] [id number] [address] [place] [address], [place] [address] Jul, [facility] [address] [id number] [address] [place] [address], [place] [address] Jul, [facility] [address] [id number] [address] [place] [address], [place] [address] Jul, [facility] [address] [id number] [address] [place] [address], [place] [address] Jul, [facility] [address] [id number] [address] [place] [address] Jul, [facility] [address] [id number] [address] [place] [address] Jul, [facility] [address] [id number] [address] [place] [address], [place] [address] Jul, [facility] [address] [id number] [address] [place] [address] Jul, [facility] [address] [id number] [address] [place] [address], [place] [address] Jul, [facility] [address] [id number] [address] [place] [address], [place] [address] Jul, [facility] [address] [id number] [address] [place] [address], [place] [address] Jul, [facility] [address] [id number] [address] [place] [address], [place] [address] Jun, [facility] [address] [id number] [address] [place] [address], [place] [address] Jun, [facility] [address] [id number] [address] [place] [address], [place] [address] Jun, [facility] [address] [id number] [address] [place] [address], [place] [address] Jun, [facility] [address] [id number] [address] [place] [address], [place] [address] Apr, [facility] [address] [id number] [address] [place] [address], [place] [address] Apr, [facility] [address] [id number] [address] [place] [address], [place] [address] Apr, [facility] [address] [id number] [address] [place] [address], [place] [address] Apr, [facility] [address] [id number] [address] [place] [address], [place] [address] Mar, [facility] [address] [id number] [address] [place] [address], [place] [address] Mar, [facility] [address] [id number] [address] [place] [address], [place] [address] Mar, [facility] [address] [id number] [address] [place] [address], [place] [address] Mar, [facility] [address] [id number] [address] [place] [address], [place] [address] Mar, [facility] [address] [id number] [address] [place] [address], [place] [address] Sep, [facility] [address] [facility] [id number] [address] [place] [id number] Sep, [facility] [address] [facility] [id number] [address] [place] [address] Aug, IMMUNIZATIONS No Known Immunizations SOCIAL HISTORY [...]
--- OUTSIDE RECORDS SUMMARY | 2020-04-01 19:29 | XMS REPORT ---
Author Author Josephine WILLIS Organization [facility] Address [address] [place] [address] Care Team Providers Care Export Freight Manager Name Role Phone OLYA WILLIS Unavailable PROBLEMS Type Condition ICD9-CM Code IQA11-FT Code Onset Dates Condition S tatus SNOMED Code Problem Diabetes mellitus E11.9 Active 73 339836 Problem Hypertension I10 Active 9067928 3 Problem Paresthesias R20.2 Active 6181630 4 Problem Chronic kidney disease N18.9 Active 018906543 Problem Venous insufficiency I87.2 Active 15636131 Problem Diabetic polyneuropathy associated with type 2 d iabetes mellitus E11.42 Active 56721524 Problem Type 2 diabetes mellitus with diabetic autonomic (poly)neuropathy E11.43 Active 698530805 Problem Chronic skin ulcer with fat layer exposed L98.492 Active 88975198 Problem Chronic osteomyelitis of right foot with draining sinus M86.471 Active [id number] Problem PAD (peripheral artery disease) I73.9 Active 000902367 Problem Gastroparesis K31.84 Active 640741 006 Problem Seasonal allergic rhinitis due to other allergic trigger J30.89 Active 609154731 Problem GERD (gastroesophageal reflux disease) K21.9 Active 570467846 Problem Type 2 diabetes mellitus with foot ulcer E11.621 Active 81572806344060 Problem 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 Active 283708093 Problem Pressure ulcer of unspecified heel, stage 4 L89.60 4 Active 366059484 Problem Unsteady gait R26.81 Active 490145 08 ALLERGIES No Information ENCOUNTERS Encounter Location Date Diagnosis [facility] [address] [facility] [id number] [address] [place] [phone] Apr, [facility] [address] [facility] [id number] [address] [place] [phone] Apr, Chronic skin ulcer with fat layer exposed L98.492 [facility] [address] [id number] [address] [place] [phone] Apr, Foot callus L84 and Nonheali ng wound of heel S91.309A [facility] [address] [id number] [address] [place] [phone] Apr, [address] [address] Mar, [facility] [address] [id number] [address] [place] [phone] Mar, Diabetes mellitus E11.9 and Chronic skin ulcer with fat layer exposed L98.492 [facility] [address] [id number] [address] [place] [id number] Mar, Chronic skin ulcer with fat layer exposed L98.492 [facility] [address] [facility] [id number] [address] [place] [phone] Mar, [facility] [address] [id number] [address] [place] [phone] February, Chronic skin ulcer with fat layer exposed L98.492 and Encounter for medication monitoring Z51.81 [facility] [address] [id number] [address] [place] [phone] February, [facility] [address] [facility] [id number] [address] [place] [phone] February, Encounter for medication mon itoring Z51.81 [facility] [address] [id number] [address] [place] [phone] February, [facility] [address] [id number] [address] [place] [phone] February, [facility] [address] [facility] [id number] [address] [place] [phone] February, [facility] [address] [facility] [id number] [address] [place] [phone] Jan, Chronic skin ulcer with fat layer exposed L98.492 [facility] [address] [id number] [address] [place] [phone] Jan, [facility] [address] [id number] [address] [place] [phone] Dec, [facility] [address] [id number] [address] [place] [phone] Dec, Diabetic polyneuropathy asso ciated with type 2 diabetes mellitus E11.42 and PAD (peripheral artery disease) I73.9 [facility] [address] [id number] [address] [place] [phone] Dec, Chronic skin ulcer with fat layer exposed L98.492 [facility] [address] [id number] [address] [place] [phone] Dec, [facility] [address] [id number] [address] [place] [phone] Nov, [facility] [address] [id number] [address] [place] [phone] Nov, Skin ulcer of right foot wit h fat layer exposed L97.512 [facility] [address] [id number] [address] [place] [phone] Oct, [facility] [address] [id number] [address] [place] [phone] Oct, Skin ulcer of right foot wit h fat layer exposed L97.512 [facility] [address] [id number] [address] [place] [phone] Sep, Diabetes mellitus E11.9 [facility] [address] [id number] [address] [place] [phone] Sep, [facility] [address] [id number] [address] [place] [phone] Sep, [facility] [address] [id number] [address] [place] [phone] Sep, [facility] [address] [facility] [id number] [address] [place] [phone] 14 Sep, 2018 Type 2 diabetes mellitus wit h foot ulcer E11.621 and Skin ulcer of right foot with fat layer exposed L97.512 [facility] [address] [facility] [id number] [address] [place] [phone] 13 Sep, 2018 Diabetes mellitus E11.9 [facility] [address] [facility] [id number] [address] [place] [phone] 07 Sep, 2018 [facility] [address] [facility] [id number] [address] [place] [phone] Aug, [facility] [address] [facility] [id number] [address] [place] [phone] Aug, [facility] [address] [facility] [id number] [address] [place] [phone] Aug, 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 [facility] [address] [facility] [id number] [address] [place] [phone] Aug, [facility] [address] [facility] [id number] [address] [place] [phone] Aug, [facility] [address] [facility] [id number] [address] [place] [phone] Aug, Bronchitis J40 [facility] [address] [facility] [id number] [address] [place] [phone] Aug, [facility] [address] [facility] [id number] [address] [place] [phone] Jul, [facility] [address] [facility] [id number] [address] [place] [phone] Jul, Chronic skin ulcer with fat layer exposed L98.492 [facility] [address] [facility] [id number] [address] [place] [phone] Jul, 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 [facility] [address] [facility] [id number] [address] [place] [phone] Jun, [facility] [address] [facility] [id number] [address] [place] [phone] Jun, [facility] [address] [facility] [id number] [address] [place] [phone] May, [facility] [address] [place] [id number] [address] [place] [id number] May, Chronic skin ulcer with fat layer exposed L98.492 [facility] [address] [facility] [id number] [address] [place] [phone] Apr, [facility] [address] [place] [id number] [address] [place] [address] Apr, Type 2 diabetes mellitus wit h foot ulcer E11.621 and Unsteady gait R26.81 [facility] [address] [place] [id number] [address] [place] [phone] Mar, Decubitus ulcer of right mariana l, stage 3 L89.613 [facility] [address] [facility] [id number] [address] [place] [phone] Mar, [facility] [place] [address] [place] [id number] [address] [place] [phone] Mar, Pressure ulcer of unspecifie d heel, stage 4 L89.604 and Type 2 diabetes mellitus with foot ulcer E11.621 [facility] [place] [address] [place] [id number] [address] [place] [address] Mar, Encounter for medication mon itoring Z51.81 [facility] [place] [address] [facility] [id number] [address] [place] [phone] Mar, Type 2 diabetes mellitus wit h foot ulcer E11.621 and Non-pressure chronic ulcer of right heel and midfoot with unspecified severity L97.419 [place] [place] [address] [place] [id number] [address] [place] [address] February, [place] [address] [id number] [address] [place] [phone] Jan, Right ankle pain M25.571 [facility] [address] [facility] [id number] [address] [place] [phone] Dec, Right ankle pain M25.571 [facility] [address] [facility] [id number] [address] [place] [phone] Dec, [facility] [address] [facility] [id number] [address] [place] [phone] Dec, [facility] [address] [facility] [id number] [address] [place] [phone] Dec, Right ankle pain M25.571 [facility] [address] [facility] [id number] [address] [place] [phone] Dec, Chronic skin ulcer with fat layer exposed L98.492 ; Type 2 diabetes mellitus with diabetic autonomic (poly)neuropathy E11.43 and Hypertension I10 [facility] [address] [facility] [id number] [address] [place] [phone] Nov, [facility] [address] [facility] [id number] [address] [place] [phone] Nov, [facility] [address] [facility] [id number] [address] [place] [phone] Nov, [facility] [address] [facility] [id number] [address] [place] [phone] Nov, Right ankle pain M25.571 and Chronic osteomyelitis of right foot with draining sinus M86.471 [facility] [address] [facility] [id number] [address] [place] [phone] Oct, Right ankle pain M25.571 [facility] [address] [facility] [id number] [address] [place] [phone] Oct, [facility] [address] [facility] [id number] [address] [place] [phone] Sep, Diabetes mellitus E11.9 [facility] [address] [id number] [address] [place] [phone] Sep, Diabetic polyneuropathy asso ciated with type 2 diabetes mellitus E11.42 and Venous insufficiency I87.2 [facility] [address] [id number] [address] [place] [address] Sep, Right ankle pain M25.571 [facility] [address] [id number] [address] [place] [address] Aug, Right ankle pain M25.571 [facility] [address] [id number] [address] [place] [phone] Aug, Chronic osteomyelitis of rig ht foot with draining sinus M86.471 [facility] [address] [id number] [address] [place] [phone] Aug, [facility] [address] [id number] [address] [place] [phone] Aug, [facility] [address] [id number] [address] [place] [phone] Aug, Chronic osteomyelitis of rig ht foot with draining sinus M86.471 [facility] [address] [id number] [address] [place] [phone] Jul, [facility] [address] [id number] [address] [place] [phone] Jul, [facility] [address] [id number] [address] [place] [address] Jul, Chronic kidney disease N18.9 [facility] [address] [id number] [address] [place] [address] Jul, Right ankle pain M25.571 [facility] [address] [id number] [address] [place] [address] Jul, Non-healing ulcer of right f oot, unspecified ulcer stage L97.519 [facility] [address] [place] [id number] [address] [place] [id number] Jul, Chronic skin ulcer with fat layer exposed L98.492 [place] [address] [place] [id number] [address] [place] [address] Jul, Deformity of right ankle nitza nt M21.961 [facility] [address] [place] [id number] [address] [place] [phone] Jun, [place] [address] [place] [id number] [place] [address] Jun, Diabetes mellitus E11.9 ; Sk in ulcer of right foot with fat layer exposed L97.512 and Encounter for immunization Z23 [facility] [place] [address] [place] [id number] [place] [address] Jun, Right ankle pain M25.571 [place] [address] [place] [id number] [place] [phone] May, Right ankle pain M25.571 [place] [place] [address] [place] [id number] [address] [place] [address] Apr, Right ankle pain M25.571 [place] [place] [address] [place] [id number] [address] [place] [address] Mar, Right ankle pain M25.571 [place] [place] [address] [place] [id number] [address] [place] [phone] Mar, [place] [address] [place] [id number] [address] [place] [address] February, Diabetes mellitus E11.9 and Diabetic polyneuropathy associated with type 2 diabetes mellitus E11.42 [place] [address] [place] [id number] [address] [place] [address] February, Hyperkalemia E87.5 [facility] [address] [place] [id number] [address] [place] [phone] February, Right ankle pain M25.571 [place] [address] [place] [id number] [address] [place] [address] Jan, Right ankle pain M25.571 [facility] [address] [facility] [id number] [address] [place] [address] Dec, Right ankle pain M25.571 [facility] [address] [facility] [id number] [address] [place] [address] Dec, Right ankle pain M25.571 [facility] [address] [facility] [id number] [address] [place] [phone] Nov, [facility] [address] [place] [id number] [place] [phone] Nov, Diabetes mellitus E11.9 ; Hy pertension I10 ; Gastroparesis K31.84 and Type 2 diabetes mellitus with diabetic autonomic (poly)neuropathy E11.43 [place] [address] [place] [id number] [address] [place] [address] Nov, Right ankle pain M25.571 [facility] [address] [facility] [id number] [address] [place] [phone] Oct, Right ankle pain M25.571 [facility] [address] [place] [id number] [address] [place] [phone] Oct, [facility] [address] [place] [id number] [address] [place] [phone] Oct, [facility] [address] [place] [id number] [address] [place] [phone] Sep, [facility] [address] [place] [id number] [address] [place] [phone] Sep, Hypertension I10 [facility] [address] [facility] [id number] [address] [place] [address] Sep, Chronic kidney disease N18.9 ; Right ankle pain M25.571 and GERD (gastroesophageal reflux disease) K21.9 [facility] [address] [place] [id number] [address] [place] [address] Jul, [facility] [address] [id number] [address] [place] [phone] Jul, Encounter for immunization Z 23 ; Venous insufficiency I87.2 and Diabetic polyneuropathy associated with type 2 diabetes mellitus E11.42 [facility] [address] [id number] [address] [place] [phone] Jul, [facility] [address] [id number] [address] [place] [phone] Jul, Diabetes mellitus E11.9 [facility] [address] [id number] [address] [place] [phone] May, [facility] [address] [id number] [address] [place] [phone] Apr, [facility] [address] [id number] [address] [place] [address] Mar, Right ankle pain M25.571 [facility] [address] [id number] [address] [place] [phone] Mar, [facility] [address] [id number] [address] [place] [address] February, Paresthesias R20.2 [facility] [address] [id number] [address] [place] [phone] February, [facility] [address] [id number] [address] [place] [phone] February, 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 [facility] [address] [id number] [address] [place] [phone] February, Diabetes mellitus E11.9 [facility] [address] [id number] [address] [place] [phone] February, [facility] [address] [id number] [address] [place] [phone] February, Polyneuropathy in diabetes 3 57.2 and Paresthesias R20.2 [facility] [address] [facility] [id number] [address] [place] [phone] February, [facility] [address] [facility] [id number] [address] [place] [phone] February, [facility] [address] [facility] [id number] [address] [place] [phone] February, [facility] [address] [facility] [id number] [address] [place] [phone] February, Diabetes mellitus E11.9 [facility] [address] [facility] [id number] [address] [place] [phone] February, [facility] [address] [facility] [id number] [address] [place] [phone] February, Hyperkalemia E87.5 [facility] [address] [facility] [id number] [address] [place] [phone] Jan, Hypertension I10 [facility] [address] [facility] [id number] [address] [place] [phone] Jan, Insomnia G47.00 [facility] [address] [facility] [id number] [address] [place] [phone] Jan, [facility] [address] [facility] [id number] [address] [place] [phone] Jan, [facility] [address] [facility] [id number] [address] [place] [phone] Jan, [facility] [address] [facility] [id number] [address] [place] [phone] Dec, Right ankle pain M25.571 [facility] [address] [facility] [id number] [address] [place] [phone] Dec, GERD (gastroesophageal reflu x disease) K21.9 [facility] [address] [facility] [id number] [address] [place] [phone] Dec, Insomnia G47.00 [facility] [address] [facility] [id number] [address] [place] [phone] 18 Dec, 2015 Hypertension I10 and Hyperka lemia 276.7 [facility] [address] [facility] [id number] [address] [place] [phone] 10 Dec, 2015 Chronic kidney disease N18.9 [facility] [address] [facility] [facility] [place] [id number] [address] [place] [id number] Dec, [facility] [address] [address] 04 Dec, 2015 Hyperkalemia E87.5 [facility] [address] [address] Dec, Chronic kidney disease N18.9 and Right ankle pain M25.571 [facility] [address] [id number] 11 Nov, 2015 GERD (gastroesophageal reflu x disease) K21.9 [facility] [address] [place] [id number] [address] [place] [address] Nov, Right ankle pain M25.571 [facility] [address] [address] 03 Nov, 2015 Diabetes mellitus E11.9 [facility] [address] [place] [id number] [address] [place] [phone] Oct, [facility] [address] [facility] [place] [id number] [address] [place] [id number] Oct, [facility] [address] [facility] [place] [id number] [address] [place] [phone] Oct, [facility] [address] [address] Oct, Hyperkalemia E87.5 [facility] [address] [place] [address] [id number] [address] [place] [id number] Oct, [facility] [address] [place] [id number] [address] [place] [address] Oct, Hyperkalemia E87.5 [facility] [address] [id number] [address] [place] [id number] Sep, [facility] [address] [facility] [place] [id number] [address] [place] [phone] Sep, [facility] [address] [facility] [place] [id number] [address] [place] [phone] Sep, [facility] [address] [facility] [place] [id number] [address] [place] [phone] Sep, [facility] [address] [facility] [place] [id number] [address] [place] [address] Sep, Right ankle pain M25.571 [facility] [address] [facility] [place] [id number] [address] [place] [address] Aug, Chronic kidney disease N18.9 [facility] [address] [id number] [address] [place] [id number] Aug, [facility] [address] [facility] [place] [id number] [address] [place] [phone] Aug, Hyperkalemia E87.5 [facility] [address] [facility] [place] [id number] [address] [place] [phone] Aug, [facility] [address] [facility] [place] [id number] [address] [place] [id number] Jul, [facility] [address] [facility] [place] [id number] [address] [place] [phone] Jul, [facility] [address] [facility] [place] [id number] [address] [place] [phone] Jul, [facility] [address] [facility] [place] [id number] [address] [place] [id number] Jul, Diabetes mellitus E11.9 ; En counter for immunization Z23 ; Hypertension I10 and Hyperkalemia E87.5 [facility] [address] [id number] [address] [place] [address], [place] [address] Jul, [facility] [address] [id number] [address] [place] [address], [place] [address] Jul, Hyperkalemia E87.5 [facility] [address] [id number] [address] [place] [address], [place] [address] Jul, Hyperkalemia E87.5 [facility] [address] [id number] [address] [place] [address], [place] [address] Jun, [facility] [address] [id number] [address] [place] [address], [place] [address] Jun, [facility] [address] [id number] [address] [place] [address], [place] [address] Jun, [facility] [address] [id number] [address] [place] [address], [place] [address] Jun, [facility] [address] [id number] [address] [place] [address], [place] [address] May, [facility] [address] [id number] [address] [place] [address], [place] [address] May, [facility] [address] [id number] [address] [place] [address], [place] [address] May, [facility] [address] [id number] [address] [place] [address], [place] [address] May, Hyperkalemia 276.7 [facility] [address] [id number] [address] [place] [address], [place] [address] May, [facility] [address] [id number] [address] [place] [address], [place] [address] Apr, Hyperkalemia 276.7 [facility] [address] [id number] [address] [place] [address], [place] [address] Apr, [facility] [address] [id number] [address] [place] [address], [place] [address] Apr, [facility] [address] [id number] [address] [place] [phone] Apr, [facility] [address] [id number] [address] [place] [address] Apr, [facility] [address] [id number] [address] [place] [id number] Apr, Hyperkalemia 276.7 [facility] [address] [id number] [address] [place] [id number] Apr, [facility] [address] [id number] [address] [place] [address] Apr, [facility] [address] [id number] [address] [place] [address] Mar, [facility] [address] [id number] [address] [place] [address] Mar, Hyperkalemia 276.7 [facility] [address] [id number] [address] [place] [address] Mar, Hyperkalemia 276.7 [facility] [address] [id number] [address] [place] [address] Mar, [facility] [address] [id number] [address] [place] [phone] Mar, [facility] [address] [id number] [address] [place] [address] Mar, [facility] [address] [id number] [address] [place] [address] Mar, [facility] [address] [id number] [address] [place] [address] Mar, Anserine bursitis 726.61 [facility] [address] [id number] [address] [place] [address] Mar, Asthma 493.90 and Hyperkalem ia 276.7 [facility] [address] [id number] [address] [place] [address], [place] [address] Mar, [facility] [address] [id number] [address] [place] [address], [place] [address] February, [facility] [address] [id number] [address] [place] [address], [place] [address] February, [facility] [address] [id number] [address] [place] [address], [place] [address] February, [facility] [address] [id number] [address] [place] [address], [place] [address] February, [facility] [address] [id number] [address] [place] [address], [place] [address] February, [facility] [address] [id number] [address] [place] [address], [place] [address] February, [facility] [address] [id number] [address] [place] [address], [place] [address] February, [facility] [address] [id number] [address] [place] [address], [place] [address] February, [facility] [address] [id number] [address] [place] [address], [place] [address] February, [facility] [address] [id number] [address] [place] [address], [place] [address] Jan, [facility] [address] [id number] [address] [place] [address], [place] [address] Jan, [facility] [address] [id number] [address] [place] [address], [place] [address] Dec, [facility] [address] [id number] [address] [place] [address], [place] [address] Dec, [facility] [address] [id number] [address] [place] [address], [place] [address] Dec, [facility] [address] [id number] [address] [place] [address], [place] [address] Dec, [facility] [address] [id number] [facility] [place] [address] Dec, [facility] [address] [id number] [address] [place] [address], [place] [address] Dec, [facility] [address] [id number] [address] [place] [address], [place] [address] Dec, [facility] [address] [id number] [address] [place] [address], [place] [address] Dec, [facility] [address] [id number] [address] [place] [address], [place] [address] Dec, [facility] [address] [id number] [address] [place] [address], [place] [address] Dec, [facility] [address] [id number] [address] [place] [address], [place] [address] Dec, [facility] [address] [id number] [address] [place] [address], [place] [address] Dec, [facility] [address] [id number] [address] [place] [address], [place] [address] Dec, [facility] [address] [id number] [address] [place] [address], [place] [address] Dec, [facility] [address] [id number] [address] [place] [address], [place] [address] Nov, [facility] [address] [id number] [address] [place] [address], [place] [address] Nov, [facility] [address] [id number] [address] [place] [address], [place] [address] Nov, [facility] [address] [id number] [address] [place] [address], [place] [address] Nov, [facility] [address] [id number] [address] [place] [address], [place] [address] Nov, [facility] [address] [id number] [address] [place] [address], [place] [address] Nov, [facility] [address] [id number] [address] [place] [address], [place] [address] Oct, [facility] [address] [id number] [address] [place] [address], [place] [address] Oct, [facility] [address] [id number] [address] [place] [address], [place] [address] Oct, [facility] [address] [id number] [address] [place] [address], [place] [address] Oct, [facility] [address] [id number] [address] [place] [address], [place] [address] Oct, [facility] [address] [id number] [address] [place] [address], [place] [address] Oct, [facility] [address] [id number] [address] [place] [address], [place] [address] Sep, [facility] [address] [id number] [address] [place] [address], [place] [address] 30 Sep, 2014 [facility] [address] [id number] [address] [place] [address], [place] [address] Sep, [facility] [address] [id number] [address] [place] [address], [place] [address] Sep, [facility] [address] [id number] [address] [place] [address], [place] [address] Sep, [facility] [address] [id number] [address] [place] [address], [place] [address] Sep, [facility] [address] [id number] [address] [place] [address], [place] [address] Aug, [facility] [address] [id number] [address] [place] [address], [place] [address] Aug, [facility] [address] [id number] [address] [place] [address], [place] [address] Aug, [facility] [address] [id number] [address] [place] [address], [place] [address] Aug, [facility] [address] [id number] [address] [place] [address], [place] [address] Aug, [facility] [address] [id number] [address] [place] [address], [place] [address] Aug, [facility] [address] [id number] [address] [place] [address], [place] [address] Jul, [facility] [address] [id number] [address] [place] [address], [place] [address] Jul, [facility] [address] [id number] [address] [place] [address], [place] [address] Jul, [facility] [address] [id number] [address] [place] [address], [place] [address] Jul, [facility] [address] [id number] [address] [place] [address], [place] [address] Jul, [facility] [address] [id number] [address] [place] [address], [place] [address] Jul, [facility] [address] [id number] [address] [place] [address] Jul, [facility] [address] [id number] [address] [place] [address] Jul, [facility] [address] [id number] [address] [place] [address] Jul, [facility] [address] [id number] [address] [place] [address], [place] [address] Jul, [facility] [address] [id number] [address] [place] [address], [place] [address] Jul, [facility] [address] [id number] [address] [place] [address], [place] [address] Jun, [facility] [address] [id number] [address] [place] [address] Jun, [facility] [address] [id number] [address] [place] [address] Jun, [facility] [address] [id number] [address] [place] [address] Jun, [facility] [address] [id number] [address] [place] [address] Apr, [facility] [address] [id number] [address] [place] [address] Apr, [facility] [address] [id number] [address] [place] [address] Apr, [facility] [address] [id number] [address] [place] [address] Apr, [facility] [address] [id number] [address] [place] [address] Mar, [facility] [address] [id number] [address] [place] [address] Mar, [facility] [address] [id number] [address] [place] [address] Mar, [facility] [address] [id number] [address] [place] [address] Mar, [facility] [address] [id number] [address] [place] [address] Mar, [facility] [address] [id number] [address] [place] [address] Sep, [facility] [address] [id number] [address] [place] [address] Sep, [facility] [address] [id number] [address] [place] [address] Aug, IMMUNIZATIONS No Known Immunizations SOCIAL HISTORY [...]
--- OUTSIDE RECORDS SUMMARY | 2020-04-01 19:29 | XMS REPORT ---
Author Author Josephine WILLIS Organization [facility] Address [address] [place] [address] Care Team Providers Care Margarine Churn Operator Name Role Phone OLYA WILLIS Unavailable PROBLEMS Type Condition ICD9-CM Code [id number] Code Onset Dates Condition S tatus SNOMED Code Problem Diabetes mellitus E11.9 Active 73 465112 Problem Hypertension I10 Active 0994073 3 Problem Paresthesias R20.2 Active 7159252 4 Problem Chronic kidney disease N18.9 Active 751301322 Problem Venous insufficiency I87.2 Active 30012889 Problem Diabetic polyneuropathy associated with type 2 d iabetes mellitus E11.42 Active 32852293 Problem Type 2 diabetes mellitus with diabetic autonomic (poly)neuropathy E11.43 Active 246024506 Problem Chronic skin ulcer with fat layer exposed L98.492 Active 28206834 Problem Chronic osteomyelitis of right foot with draining sinus M86.471 Active 839924047898881 Problem PAD (peripheral artery disease) I73.9 Active 126015124 Problem Gastroparesis K31.84 Active 559292 006 Problem Seasonal allergic rhinitis due to other allergic trigger J30.89 Active 642003776 Problem GERD (gastroesophageal reflux disease) K21.9 Active 580502002 Problem Type 2 diabetes mellitus with foot ulcer E11.621 Active 17207858233934 Problem 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 Active 928755318 Problem Pressure ulcer of unspecified heel, stage 4 L89.60 4 Active 897997002 Problem Unsteady gait R26.81 Active 959038 08 ALLERGIES No Information ENCOUNTERS Encounter Location Date Diagnosis [facility] [address] [facility] [id number] [address] [place] [phone] May, [facility] [address] [facility] [id number] [address] [place] [address] Apr, Chronic skin ulcer with fat layer exposed L98.492 [facility] [address] [id number] [address] [place] [phone] Apr, [address] [address] Apr, [facility] [address] [id number] [address] [place] [address] Apr, Chronic skin ulcer with fat layer exposed L98.492 [facility] [address] [id number] [address] [place] [address] Apr, Foot callus L84 and Nonheali ng wound of heel S91.309A [facility] [address] [facility] [id number] [address] [place] [address] Apr, [address] [address] Mar, [facility] [address] [facility] [id number] [address] [place] [phone] Mar, Diabetes mellitus E11.9 and Chronic skin ulcer with fat layer exposed L98.492 [facility] [address] [id number] [address] [place] [address] Mar, Chronic skin ulcer with fat layer exposed L98.492 [facility] [address] [id number] [address] [place] [phone] Mar, [facility] [address] [facility] [id number] [address] [place] [address] February, Chronic skin ulcer with fat layer exposed L98.492 and Encounter for medication monitoring Z51.81 [facility] [address] [facility] [id number] [address] [place] [phone] February, [facility] [address] [facility] [id number] [address] [place] [phone] February, Encounter for medication mon itoring Z51.81 [facility] [address] [facility] [id number] [address] [place] [phone] February, [facility] [address] [id number] [address] [place] [phone] February, [facility] [address] [id number] [address] [place] [address] February, [facility] [address] [id number] [address] [place] [id number] Jan, Chronic skin ulcer with fat layer exposed L98.492 [facility] [address] [id number] [address] [place] [phone] Jan, [facility] [address] [id number] [address] [place] [phone] Dec, [facility] [address] [id number] [address] [place] [address] Dec, Diabetic polyneuropathy asso ciated with type 2 diabetes mellitus E11.42 and PAD (peripheral artery disease) I73.9 [facility] [address] [facility] [id number] [address] [place] [address] Dec, Chronic skin ulcer with fat layer exposed L98.492 [facility] [address] [id number] [address] [place] [phone] Dec, [facility] [address] [facility] [id number] [address] [place] [phone] Nov, [facility] [address] [facility] [id number] [address] [place] [address] Nov, Skin ulcer of right foot wit h fat layer exposed L97.512 [facility] [address] [id number] [address] [place] [phone] Oct, [facility] [address] [facility] [id number] [address] [place] [phone] Oct, Skin ulcer of right foot wit h fat layer exposed L97.512 [facility] [address] [facility] [id number] [address] [place] [address] Sep, Diabetes mellitus E11.9 [facility] [address] [id number] [address] [place] [phone] Sep, [facility] [address] [id number] [address] [place] [phone] Sep, [facility] [address] [id number] [address] [place] [phone] 17 Sep, 2018 [facility] [address] [id number] [address] [place] [address] 14 Sep, 2018 Type 2 diabetes mellitus wit h foot ulcer E11.621 and Skin ulcer of right foot with fat layer exposed L97.512 [facility] [address] [id number] [address] [place] [phone] 13 Sep, 2018 Diabetes mellitus E11.9 [facility] [address] [id number] [address] [place] [phone] 07 Sep, 2018 [facility] [address] [id number] [address] [place] [phone] Aug, [facility] [address] [id number] [address] [place] [phone] Aug, [facility] [address] [facility] [id number] [address] [place] [phone] Aug, 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 [facility] [address] [id number] [address] [place] [phone] Aug, [facility] [address] [id number] [address] [place] [phone] Aug, [facility] [address] [id number] [address] [place] [phone] Aug, Bronchitis J40 [facility] [address] [id number] [address] [place] [phone] Aug, [facility] [address] [id number] [address] [place] [id number] Jul, [facility] [address] [id number] [address] [place] [address] Jul, Chronic skin ulcer with fat layer exposed L98.492 [facility] [address] [id number] [address] [place] [address] Jul, 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 [facility] [address] [id number] [address] [place] [address] Jun, [facility] [address] [id number] [address] [place] [phone] Jun, [facility] [address] [id number] [address] [place] [address] May, [facility] [address] [id number] [address] [place] [address] May, Chronic skin ulcer with fat layer exposed L98.492 [facility] [address] [id number] [address] [place] [address] Apr, [facility] [address] [id number] [address] [place] [address] Apr, Type 2 diabetes mellitus wit h foot ulcer E11.621 and Unsteady gait R26.81 [facility] [address] [facility] [id number] [address] [place] [address] Mar, Decubitus ulcer of right mariana l, stage 3 L89.613 [facility] [address] [id number] [address] [place] [phone] Mar, [facility] [address] [facility] [id number] [address] [place] [address] Mar, Pressure ulcer of unspecifie d heel, stage 4 L89.604 and Type 2 diabetes mellitus with foot ulcer E11.621 [facility] [address] [facility] [id number] [address] [place] [address] Mar, Encounter for medication mon itoring Z51.81 [facility] [address] [facility] [id number] [address] [place] [address] Mar, Type 2 diabetes mellitus wit h foot ulcer E11.621 and Non-pressure chronic ulcer of right heel and midfoot with unspecified severity L97.419 [facility] [address] [id number] [address] [place] [address] February, [facility] [address] [facility] [id number] [address] [place] [address] Jan, Right ankle pain M25.571 [facility] [address] [id number] [address] [place] [address] Dec, Right ankle pain M25.571 [place] [address] [facility] [id number] [address] [place] [address] Dec, [place] [address] [facility] [id number] [address] [place] [address] Dec, [facility] [address] [facility] [id number] [address] [place] [address] Dec, Right ankle pain M25.571 [place] [address] [facility] [id number] [address] [place] [address] Dec, Chronic skin ulcer with fat layer exposed L98.492 ; Type 2 diabetes mellitus with diabetic autonomic (poly)neuropathy E11.43 and Hypertension I10 [place] [address] [facility] [id number] [address] [place] [phone] Nov, [facility] [address] [facility] [id number] [address] [place] [phone] Nov, [facility] [address] [facility] [id number] [address] [place] [address] Nov, [facility] [address] [facility] [id number] [address] [place] [address] Nov, Right ankle pain M25.571 and Chronic osteomyelitis of right foot with draining sinus M86.471 [place] [address] [id number] [address] [place] [address] Oct, Right ankle pain M25.571 [facility] [address] [id number] [address] [place] [address] Oct, [facility] [address] [id number] [address] [place] [address] Sep, Diabetes mellitus E11.9 [facility] [address] [id number] [address] [place] [address] Sep, Diabetic polyneuropathy asso ciated with type 2 diabetes mellitus E11.42 and Venous insufficiency I87.2 [facility] [address] [id number] [address] [place] [address] Sep, Right ankle pain M25.571 [facility] [address] [id number] [address] [place] [address] Aug, Right ankle pain M25.571 [facility] [address] [id number] [address] [place] [address] Aug, Chronic osteomyelitis of rig foot with draining sinus M86.471 [facility] [address] [id number] [address] [place] [address] Aug, [facility] [address] [id number] [address] [place] [address] Aug, [facility] [address] [id number] [address] [place] [address] Aug, Chronic osteomyelitis of rig ht foot with draining sinus M86.471 [facility] [address] [id number] [address] [place] [address] Jul, [facility] [address] [id number] [address] [place] [phone] Jul, [facility] [address] [id number] [address] [place] [address] Jul, Chronic kidney disease N18.9 [facility] [address] [id number] [address] [place] [address] Jul, Right ankle pain M25.571 [facility] [address] [facility] [id number] [address] [place] [address] Jul, Non-healing ulcer of right f oot, unspecified ulcer stage L97.519 [facility] [address] [facility] [id number] [address] [place] [address] Jul, Chronic skin ulcer with fat layer exposed L98.492 [facility] [address] [facility] [id number] [address] [place] [phone] Jul, Deformity of right ankle nitza nt M21.961 [facility] [address] [facility] [id number] [address] [place] [address] Jun, [place] [address] [place] [id number] [address] [place] [address] Jun, Diabetes mellitus E11.9 ; Sk in ulcer of right foot with fat layer exposed L97.512 and Encounter for immunization Z23 [facility] [address] [id number] [address] [place] [address] Jun, Right ankle pain M25.571 [facility] [address] [facility] [id number] [address] [place] [address] May, Right ankle pain M25.571 [facility] [address] [facility] [id number] [address] [place] [address] Apr, Right ankle pain M25.571 [facility] [address] [facility] [id number] [address] [place] [address] Mar, Right ankle pain M25.571 [facility] [address] [facility] [id number] [address] [place] [address] Mar, [facility] [address] [facility] [id number] [address] [place] [address] February, Diabetes mellitus E11.9 and Diabetic polyneuropathy associated with type 2 diabetes mellitus E11.42 [facility] [address] [facility] [id number] [address] [place] [address] February, Hyperkalemia E87.5 [facility] [address] [facility] [id number] [address] [place] [address] February, Right ankle pain M25.571 [facility] [address] [facility] [id number] [address] [place] [address] Jan, Right ankle pain M25.571 [facility] [address] [facility] [id number] [address] [place] [address] Dec, Right ankle pain M25.571 [facility] [address] [place] [id number] [address] [place] [address] Dec, Right ankle pain M25.571 [facility] [address] [place] [id number] [address] [place] [address] Nov, [facility] [address] [place] [id number] [address] [place] [address] Nov, Diabetes mellitus E11.9 ; Hy pertension I10 ; Gastroparesis K31.84 and Type 2 diabetes mellitus with diabetic autonomic (poly)neuropathy E11.43 [facility] [address] [place] [id number] [address] [place] [address] Nov, Right ankle pain M25.571 [facility] [address] [facility] [id number] [address] [place] [address] Oct, Right ankle pain M25.571 [facility] [address] [facility] [id number] [address] [place] [address] Oct, [facility] [address] [place] [id number] [address] [place] [address] Oct, [facility] [address] [place] [id number] [address] [place] [address] Sep, [facility] [address] [place] [id number] [address] [place] [address] Sep, Hypertension I10 [facility] [address] [facility] [id number] [address] [place] [address] Sep, Chronic kidney disease N18.9 ; Right ankle pain M25.571 and GERD (gastroesophageal reflux disease) K21.9 [facility] [address] [facility] [id number] [address] [place] [address] Jul, [facility] [address] [facility] [id number] [address] [place] [address] Jul, Encounter for immunization Z 23 ; Venous insufficiency I87.2 and Diabetic polyneuropathy associated with type 2 diabetes mellitus E11.42 [facility] [address] [facility] [id number] [address] [place] [address] Jul, [facility] [address] [place] [id number] [address] [place] [address] Jul, Diabetes mellitus E11.9 [facility] [address] [facility] [id number] [address] [place] [address] May, [facility] [address] [place] [id number] [address] [place] [address] Apr, [facility] [address] [facility] [id number] [address] [place] [address] Mar, Right ankle pain M25.571 [facility] [address] [facility] [id number] [address] [place] [address] Mar, [facility] [address] [facility] [id number] [address] [place] [address] February, Paresthesias R20.2 [facility] [address] [facility] [id number] [address] [place] [phone] February, [facility] [address] [place] [id number] [address] [place] [address] February, 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 [facility] [address] [id number] [address] [place] [address] February, Diabetes mellitus E11.9 [facility] [address] [id number] [address] [place] [address] February, [facility] [address] [id number] [address] [place] [address] February, Polyneuropathy in diabetes 3 57.2 and Paresthesias R20.2 [facility] [address] [id number] [address] [place] [address] February, [facility] [address] [id number] [address] [place] [phone] February, [facility] [address] [id number] [address] [place] [address] February, [facility] [address] [id number] [address] [place] [address] February, Diabetes mellitus E11.9 [facility] [address] [id number] [address] [place] [address] February, [facility] [address] [id number] [address] [place] [address] February, Hyperkalemia E87.5 [facility] [address] [id number] [address] [place] [address] Jan, Hypertension I10 [facility] [address] [id number] [address] [place] [address] Jan, Insomnia G47.00 [facility] [address] [id number] [address] [place] [phone] Jan, [facility] [address] [facility] [id number] [address] [place] [address] Jan, [facility] [address] [facility] [id number] [address] [place] [address] Jan, [facility] [address] [id number] [address] [place] [address] Dec, Right ankle pain M25.571 [facility] [address] [id number] [address] [place] [id number] Dec, GERD (gastroesophageal reflu x disease) K21.9 [facility] [address] [id number] [address] [place] [id number] Dec, Insomnia G47.00 [facility] [address] [id number] [address] [place] [id number] 18 Dec, 2015 Hypertension I10 and Hyperka lemia 276.7 [facility] [address] [facility] [id number] [address] [place] [id number] 10 Dec, 2015 Chronic kidney disease N18.9 [facility] [address] [facility] [id number] [address] [place] [phone] Dec, [facility] [address] [facility] [id number] [address] [place] [id number] Dec, Hyperkalemia E87.5 [facility] [address] [facility] [id number] [address] [place] [phone] Dec, Chronic kidney disease N18.9 and Right ankle pain M25.571 [facility] [address] [facility] [id number] [address] [place] [id number] 11 Nov, 2015 GERD (gastroesophageal reflu x disease) K21.9 [facility] [address] [facility] [id number] [address] [place] [id number] Nov, Right ankle pain M25.571 [facility] [address] [facility] [id number] [address] [place] [id number] Nov, Diabetes mellitus E11.9 [facility] [address] [facility] [id number] [address] [place] [phone] Oct, [facility] [address] [facility] [id number] [address] [place] [phone] Oct, [facility] [address] [id number] [address] [place] [phone] Oct, [facility] [address] [id number] [address] [place] [id number] Oct, Hyperkalemia E87.5 [facility] [address] [id number] [address] [place] [phone] Oct, [facility] [address] [id number] [address] [place] [phone] Oct, Hyperkalemia E87.5 [facility] [address] [id number] [address] [place] [phone] Sep, [facility] [address] [id number] [address] [place] [phone] Sep, [facility] [address] [id number] [address] [place] [phone] Sep, [facility] [address] [id number] [address] [place] [phone] Sep, [facility] [address] [id number] [address] [place] [address] Sep, Right ankle pain M25.571 [facility] [address] [id number] [address] [place] [id number] 30 Aug, 2015 Chronic kidney disease N18.9 [facility] [address] [id number] [address] [place] [id number] Aug, [facility] [address] [id number] [address] [place] [phone] Aug, Hyperkalemia E87.5 [facility] [address] [id number] [address] [place] [id number] 13 Aug, 2015 [facility] [address] [id number] [address] [place] [phone] 20 Jul, 2015 [facility] [address] [id number] [address] [place] [phone] Jul, [facility] [address] [id number] [address] [place] [phone] Jul, [facility] [address] [id number] [address] [place] [phone] Jul, Diabetes mellitus E11.9 ; En counter for immunization Z23 ; Hypertension I10 and Hyperkalemia E87.5 [facility] [address] [id number] [address] [place] [phone] Jul, [facility] [address] [id number] [address] [place] [phone] Jul, Hyperkalemia E87.5 [facility] [address] [id number] [address] [place] [phone] Jul, Hyperkalemia E87.5 [facility] [address] [id number] [address] [place] [phone] Jun, [facility] [address] [id number] [address] [place] [phone] Jun, [facility] [address] [id number] [address] [place] [phone] Jun, [facility] [address] [id number] [address] [place] [phone] Jun, [facility] [address] [id number] [address] [place] [phone] May, [facility] [address] [id number] [address] [place] [phone] May, [facility] [address] [id number] [address] [place] [phone] May, [facility] [address] [facility] [id number] [address] [place] [phone] May, Hyperkalemia 276.7 [facility] [address] [id number] [address] [place] [phone] May, [facility] [address] [id number] [address] [place] [address], [place] [address] Apr, Hyperkalemia 276.7 [facility] [address] [id number] [address] [place] [address], [place] [address] Apr, [facility] [address] [id number] [address] [place] [address], [place] [address] Apr, [facility] [address] [id number] [address] [place] [address], [place] [address] Apr, [facility] [address] [id number] [address] [place] [address], [place] [address] Apr, [facility] [address] [id number] [address] [place] [address], [place] [address] Apr, Hyperkalemia 276.7 [facility] [address] [id number] [address] [place] [address], [place] [address] Apr, [facility] [address] [id number] [address] [place] [address], [place] [address] Apr, [facility] [address] [id number] [address] [place] [address], [place] [id number] Mar, [facility] [address] [id number] [address] [place] [address], [place] [address] Mar, Hyperkalemia 276.7 [facility] [address] [id number] [address] [place] [address], [place] [address] Mar, Hyperkalemia 276.7 [facility] [address] [id number] [address] [place] [address], [place] [address] Mar, [facility] [address] [id number] [address] [place] [address], [place] [address] Mar, [facility] [address] [id number] [address] [place] [address], [place] [address] Mar, [facility] [address] [id number] [address] [place] [id number] Mar, [facility] [address] [id number] [address] [place] [id number] Mar, Anserine bursitis 726.61 [facility] [address] [id number] [address] [place] [id number] Mar, Asthma 493.90 and Hyperkalem ia 276.7 [facility] [address] [id number] [address] [place] [phone] Mar, [facility] [address] [id number] [address] [place] [phone] February, [facility] [address] [id number] [address] [place] [phone] February, [facility] [address] [id number] [address] [place] [phone] February, [facility] [address] [id number] [address] [place] [phone] February, [facility] [address] [id number] [address] [place] [id number] February, [facility] [address] [id number] [address] [place] [id number] February, [facility] [address] [id number] [address] [place] [phone] February, [facility] [address] [id number] [address] [place] [id number] February, [facility] [address] [id number] [address] [place] [phone] February, [facility] [address] [id number] [address] [place] [phone] Jan, [facility] [address] [id number] [address] [place] [phone] Jan, [facility] [address] [id number] [address] [place] [phone] Dec, [facility] [address] [id number] [address] [place] [address], [place] [address] Dec, [facility] [address] [id number] [address] [place] [address], [place] [address] Dec, [facility] [address] [id number] [address] [place] [address], [place] [address] Dec, [facility] [address] [id number] [address] [place] [address], [place] [address] Dec, [facility] [address] [id number] [address] [place] [address], [place] [address] Dec, [facility] [address] [id number] [address] [place] [address], [place] [address] Dec, [facility] [address] [id number] [address] [place] [address], [place] [address] Dec, [facility] [address] [id number] [address] [place] [address], [place] [address] Dec, [facility] [address] [id number] [address] [place] [address], [place] [address] Dec, [facility] [address] [id number] [address] [place] [address], [place] [address] Dec, [facility] [address] [id number] [address] [place] [address], [place] [address] Dec, [facility] [address] [id number] [address] [place] [address], [place] [address] Dec, [facility] [address] [id number] [address] [place] [address], [place] [address] Dec, [facility] [address] [id number] [address] [place] [address], [place] [address] Nov, [facility] [address] [id number] [address] [place] [address], [place] [address] Nov, [facility] [address] [id number] [address] [place] [address], [place] [address] Nov, [facility] [address] [id number] [address] [place] [address], [place] [address] Nov, [facility] [address] [id number] [address] [place] [address], [place] [address] Nov, [facility] [address] [id number] [address] [place] [address], [place] [address] Nov, [facility] [address] [id number] [address] [place] [address], [place] [address] Oct, [facility] [address] [id number] [address] [place] [address], [place] [address] Oct, [facility] [address] [id number] [address] [place] [address], [place] [address] Oct, [facility] [address] [id number] [address] [place] [address], [place] [address] Oct, [facility] [address] [id number] [address] [place] [address], [place] [address] Oct, [facility] [address] [id number] [address] [place] [address], [place] [address] Oct, [facility] [address] [id number] [address] [place] [address], [place] [address] Sep, [facility] [address] [id number] [address] [place] [address], [place] [address] Sep, [facility] [address] [id number] [address] [place] [address], [place] [address] Sep, [facility] [address] [id number] [address] [place] [address], [place] [id number] Sep, [facility] [address] [id number] [address] [place] [address], [place] [address] Sep, [facility] [address] [id number] [address] [place] [id number] Sep, [facility] [address] [id number] [address] [place] [address], [place] [address] Aug, [facility] [address] [id number] [address] [place] [address], [place] [address] Aug, [facility] [address] [id number] [address] [place] [address], [place] [address] Aug, [facility] [address] [id number] [address] [place] [id number] Aug, [facility] [address] [id number] [address] [place] [address], [place] [address] Aug, [facility] [address] [id number] [address] [place] [address], [place] [address] Aug, [facility] [address] [id number] [address] [place] [address], [place] [address] Jul, [facility] [address] [id number] [address] [place] [address], [place] [address] Jul, [facility] [address] [id number] [address] [place] [address], [place] [address] Jul, [facility] [address] [id number] [address] [place] [address], [place] [address] Jul, [facility] [address] [id number] [address] [place] [id number] Jul, [facility] [address] [id number] [address] [place] [id number] Jul, [facility] [address] [id number] [address] [place] [address], [place] [address] Jul, [facility] [address] [id number] [address] [place] [id number] Jul, [facility] [address] [id number] [address] [place] [address], [place] [address] Jul, [facility] [address] [id number] [address] [place] [address], [place] [address] Jul, [facility] [address] [id number] [address] [place] [address], [place] [address] Jul, [facility] [address] [id number] [address] [place] [address], [place] [address] Jun, [facility] [address] [id number] [address] [place] [address], [place] [address] Jun, [facility] [address] [id number] [address] [place] [address], [place] [address] Jun, [facility] [address] [id number] [address] [place] [address], [place] [address] Jun, [facility] [address] [id number] [address] [place] [address], [place] [address] Apr, [facility] [address] [id number] [address] [place] [address], [place] [address] Apr, [facility] [address] [id number] [address] [place] [address], [place] [id number] Apr, [facility] [address] [id number] [address] [place] [address], [place] [address] Apr, [facility] [address] [id number] [address] [place] [address], [place] [address] Mar, [facility] [address] [id number] [address] [place] [address], [place] [address] Mar, [facility] [address] [id number] [address] [place] [address], [place] [address] Mar, [facility] [address] [id number] [address] [place] [address], [place] [address] Mar, [facility] [address] [id number] [address] [place] [address], [place] [address] Mar, [facility] [address] [id number] [address] [place] [address], [place] [address] Sep, [facility] [address] [facility] [id number] [address] [place] [id number] Sep, [facility] [address] [facility] [id number] [address] [place] [id number] Aug, IMMUNIZATIONS No Known Immunizations SOCIAL HISTORY [...]
--- OUTSIDE RECORDS SUMMARY | 2020-04-01 19:29 | XMS REPORT ---
Author Author Josephine WILLIS Organization [facility] Address [address] [place] [address] Care Team Providers Care Billing Control Clerk Name Role Phone OLYA WILLIS Unavailable PROBLEMS Type Condition ICD9-CM Code [id number] Code Onset Dates Condition S tatus SNOMED Code Problem Diabetes mellitus E11.9 Active 73 460817 Problem Hypertension I10 Active 4257764 3 Problem Paresthesias R20.2 Active 2179408 4 Problem Chronic kidney disease N18.9 Active 746425396 Problem Venous insufficiency I87.2 Active 38877566 Problem Diabetic polyneuropathy associated with type 2 d iabetes mellitus E11.42 Active 76665100 Problem Type 2 diabetes mellitus with diabetic autonomic (poly)neuropathy E11.43 Active 648592816 Problem Chronic skin ulcer with fat layer exposed L98.492 Active 59831748 Problem Chronic osteomyelitis of right foot with draining sinus M86.471 Active 885165979460464 Problem PAD (peripheral artery disease) I73.9 Active 545495719 Problem Gastroparesis K31.84 Active 499384 006 Problem Seasonal allergic rhinitis due to other allergic trigger J30.89 Active 379868353 Problem GERD (gastroesophageal reflux disease) K21.9 Active 173074289 Problem Type 2 diabetes mellitus with foot ulcer E11.621 Active 51316025162170 Problem 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 Active 563388821 Problem Pressure ulcer of unspecified heel, stage 4 L89.60 4 Active 722252112 Problem Unsteady gait R26.81 Active 883287 08 ALLERGIES No Information ENCOUNTERS Encounter Location Date Diagnosis [facility] [address] [id number] [address] [place] [address] Apr, [facility] [address] [id number] [address] [place] [address] Apr, Chronic skin ulcer with fat layer exposed L98.492 [facility] [address] [id number] [address] [place] [address] Apr, Foot callus L84 and Nonheali ng wound of heel S91.309A [facility] [address] [id number] [address] [place] [address] Apr, [address] [address] Mar, [facility] [address] [id number] [address] [place] [address] Mar, Diabetes mellitus E11.9 and Chronic skin ulcer with fat layer exposed L98.492 [facility] [address] [id number] [address] [place] [address] Mar, Chronic skin ulcer with fat layer exposed L98.492 [facility] [address] [id number] [address] [place] [address] Mar, [facility] [address] [id number] [address] [place] [address] February, Chronic skin ulcer with fat layer exposed L98.492 and Encounter for medication monitoring Z51.81 [facility] [address] [id number] [address] [place] [address] February, [facility] [address] [id number] [address] [place] [address] February, Encounter for medication mon itoring Z51.81 [facility] [address] [id number] [address] [place] [address] February, [facility] [address] [id number] [address] [place] [address] February, [facility] [address] [id number] [address] [place] [address] February, [facility] [address] [id number] [address] [place] [address] Jan, Chronic skin ulcer with fat layer exposed L98.492 [facility] [address] [id number] [address] [place] [address] Jan, [facility] [address] [id number] [address] [place] [address] Dec, [facility] [address] [id number] [address] [place] [address] Dec, Diabetic polyneuropathy asso ciated with type 2 diabetes mellitus E11.42 and PAD (peripheral artery disease) I73.9 [facility] [address] [id number] [address] [place] [address] Dec, Chronic skin ulcer with fat layer exposed L98.492 [facility] [address] [id number] [address] [place] [address] Dec, [facility] [address] [id number] [address] [place] [address] Nov, [facility] [address] [id number] [address] [place] [address] Nov, Skin ulcer of right foot wit h fat layer exposed L97.512 [facility] [address] [id number] [address] [place] [address] Oct, [facility] [address] [id number] [address] [place] [address] Oct, Skin ulcer of right foot wit h fat layer exposed L97.512 [facility] [address] [id number] [address] [place] [address] Sep, Diabetes mellitus E11.9 [facility] [address] [id number] [address] [place] [phone] Sep, [facility] [address] [id number] [address] [place] [address] Sep, [facility] [address] [id number] [address] [place] [address] Sep, [facility] [address] [id number] [address] [place] [address] 14 Sep, 2018 Type 2 diabetes mellitus wit h foot ulcer E11.621 and Skin ulcer of right foot with fat layer exposed L97.512 [facility] [address] [id number] [address] [place] [address] 13 Sep, 2018 Diabetes mellitus E11.9 [facility] [address] [id number] [address] [place] [address] 07 Sep, 2018 [facility] [address] [id number] [address] [place] [address] Aug, [facility] [address] [id number] [address] [place] [address] Aug, [facility] [address] [id number] [address] [place] [address] Aug, 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 [facility] [address] [id number] [address] [place] [address] Aug, [facility] [address] [id number] [address] [place] [address] Aug, [facility] [address] [id number] [address] [place] [address] Aug, Bronchitis J40 [facility] [address] [id number] [address] [place] [address] Aug, [facility] [address] [id number] [address] [place] [address] Jul, [facility] [address] [id number] [address] [place] [address] Jul, Chronic skin ulcer with fat layer exposed L98.492 [facility] [address] [id number] [address] [place] [address] Jul, 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 [facility] [address] [id number] [address] [place] [address] Jun, [facility] [address] [id number] [address] [place] [address] Jun, [facility] [address] [id number] [address] [place] [address] May, [facility] [address] [id number] [address] [place] [address] May, Chronic skin ulcer with fat layer exposed L98.492 [facility] [address] [id number] [address] [place] [address] Apr, [facility] [address] [id number] [address] [place] [address] Apr, Type 2 diabetes mellitus wit h foot ulcer E11.621 and Unsteady gait R26.81 [facility] [address] [place] [id number] [address] [place] [address] Mar, Decubitus ulcer of right mariana l, stage 3 L89.613 [facility] [address] [id number] [address] [place] [address] Mar, [facility] [address] [id number] [address] [place] [address] Mar, Pressure ulcer of unspecifie d heel, stage 4 L89.604 and Type 2 diabetes mellitus with foot ulcer E11.621 [facility] [address] [id number] [address] [place] [address] Mar, Encounter for medication mon itoring Z51.81 [facility] [address] [id number] [address] [place] [address] Mar, Type 2 diabetes mellitus wit h foot ulcer E11.621 and Non-pressure chronic ulcer of right heel and midfoot with unspecified severity L97.419 [facility] [address] [place] [id number] [address] [place] [address] February, [facility] [address] [id number] [address] [place] [address] Jan, Right ankle pain M25.571 [facility] [address] [id number] [address] [place] [address] Dec, Right ankle pain M25.571 [facility] [address] [id number] [address] [place] [address] Dec, [facility] [address] [id number] [address] [place] [address] Dec, [facility] [address] [id number] [address] [place] [address] Dec, Right ankle pain M25.571 [facility] [address] [id number] [address] [place] [address] Dec, Chronic skin ulcer with fat layer exposed L98.492 ; Type 2 diabetes mellitus with diabetic autonomic (poly)neuropathy E11.43 and Hypertension I10 [facility] [address] [id number] [address] [place] [address] Nov, [facility] [address] [id number] [address] [place] [address] Nov, [facility] [address] [id number] [address] [place] [address] Nov, [facility] [address] [id number] [address] [place] [address] Nov, Right ankle pain M25.571 and Chronic osteomyelitis of right foot with draining sinus M86.471 [facility] [address] [id number] [address] [place] [address] Oct, Right ankle pain M25.571 [facility] [address] [id number] [address] [place] [address] Oct, [facility] [address] [id number] [address] [place] [address] Sep, Diabetes mellitus E11.9 [facility] [address] [id number] [address] [place] [address] Sep, Diabetic polyneuropathy asso ciated with type 2 diabetes mellitus E11.42 and Venous insufficiency I87.2 [facility] [address] [id number] [address] [place] [address] Sep, Right ankle pain M25.571 [facility] [address] [id number] [address] [place] [address] Aug, Right ankle pain M25.571 [facility] [address] [id number] [address] [place] [address] Aug, Chronic osteomyelitis of rig ht foot with draining sinus M86.471 [facility] [address] [id number] [address] [place] [address] Aug, [facility] [address] [id number] [address] [place] [address] Aug, [facility] [address] [id number] [address] [place] [address] Aug, Chronic osteomyelitis of rig ht foot with draining sinus M86.471 [facility] [address] [id number] [address] [place] [address] Jul, [facility] [address] [id number] [address] [place] [address] Jul, [facility] [address] [id number] [address] [place] [address] Jul, Chronic kidney disease N18.9 [facility] [address] [id number] [address] [place] [address] Jul, Right ankle pain M25.571 [facility] [address] [id number] [address] [place] [address] Jul, Non-healing ulcer of right f oot, unspecified ulcer stage L97.519 [facility] [address] [id number] [address] [place] [address] Jul, Chronic skin ulcer with fat layer exposed L98.492 [facility] [address] [id number] [address] [place] [address] Jul, Deformity of right ankle nitza nt M21.961 [facility] [address] [id number] [address] [place] [address] Jun, [facility] [address] [id number] [place] [address] Jun, Diabetes mellitus E11.9 ; Sk in ulcer of right foot with fat layer exposed L97.512 and Encounter for immunization Z23 [facility] [address] [place] [id number] [place] [address] Jun, Right ankle pain M25.571 [facility] [address] [id number] [place] [address] May, Right ankle pain M25.571 [facility] [address] [id number] [address] [place] [address] Apr, Right ankle pain M25.571 [facility] [address] [id number] [address] [place] [address] Mar, Right ankle pain M25.571 [facility] [address] [id number] [address] [place] [address] Mar, [facility] [address] [id number] [address] [place] [address] February, Diabetes mellitus E11.9 and Diabetic polyneuropathy associated with type 2 diabetes mellitus E11.42 [facility] [address] [id number] [address] [place] [address] February, Hyperkalemia E87.5 [facility] [address] [id number] [address] [place] [address] February, Right ankle pain M25.571 [facility] [address] [id number] [address] [place] [address] Jan, Right ankle pain M25.571 [facility] [address] [id number] [address] [place] [address] Dec, Right ankle pain M25.571 [facility] [address] [id number] [address] [place] [address] Dec, Right ankle pain M25.571 [facility] [address] [id number] [address] [place] [address] Nov, [facility] [address] [place] [id number] [place] [address] Nov, Diabetes mellitus E11.9 ; Hy pertension I10 ; Gastroparesis K31.84 and Type 2 diabetes mellitus with diabetic autonomic (poly)neuropathy E11.43 [facility] [address] [place] [id number] [address] [place] [address] Nov, Right ankle pain M25.571 [facility] [address] [id number] [address] [place] [address] Oct, Right ankle pain M25.571 [facility] [address] [place] [id number] [address] [place] [address] Oct, [facility] [address] [id number] [address] [place] [address] Oct, [facility] [address] [place] [id number] [address] [place] [address] Sep, [facility] [address] [place] [id number] [address] [place] [address] Sep, Hypertension I10 [facility] [address] [id number] [address] [place] [address] Sep, Chronic kidney disease N18.9 ; Right ankle pain M25.571 and GERD (gastroesophageal reflux disease) K21.9 [facility] [address] [id number] [address] [place] [address] Jul, [facility] [address] [id number] [address] [place] [address] Jul, Encounter for immunization Z 23 ; Venous insufficiency I87.2 and Diabetic polyneuropathy associated with type 2 diabetes mellitus E11.42 [facility] [address] [id number] [address] [place] [address] Jul, [facility] [address] [id number] [address] [place] [address] Jul, Diabetes mellitus E11.9 [facility] [address] [id number] [address] [place] [address] May, [facility] [address] [id number] [address] [place] [address] Apr, [facility] [address] [id number] [address] [place] [address] Mar, Right ankle pain M25.571 [facility] [address] [id number] [address] [place] [phone] Mar, [facility] [address] [id number] [address] [place] [address] February, Paresthesias R20.2 [facility] [address] [id number] [address] [place] [address] February, [facility] [address] [id number] [address] [place] [address] February, 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 [facility] [address] [id number] [address] [place] [address] February, Diabetes mellitus E11.9 [facility] [address] [id number] [address] [place] [address] February, [facility] [address] [id number] [address] [place] [address] February, Polyneuropathy in diabetes 3 57.2 and Paresthesias R20.2 [facility] [address] [id number] [address] [place] [address] February, [facility] [address] [id number] [address] [place] [phone] February, [facility] [address] [id number] [address] [place] [phone] February, [facility] [address] [id number] [address] [place] [address] February, Diabetes mellitus E11.9 [facility] [address] [id number] [address] [place] [address] February, [facility] [address] [id number] [address] [place] [address] February, Hyperkalemia E87.5 [facility] [address] [id number] [address] [place] [address] Jan, Hypertension I10 [facility] [address] [id number] [address] [place] [address] Jan, Insomnia G47.00 [facility] [address] [id number] [address] [place] [address] Jan, [facility] [address] [id number] [address] [place] [address] Jan, [facility] [address] [id number] [address] [place] [address] Jan, [facility] [address] [id number] [address] [place] [address] Dec, Right ankle pain M25.571 [facility] [address] [id number] [address] [place] [address] Dec, GERD (gastroesophageal reflu x disease) K21.9 [facility] [address] [id number] [address] [place] [address] Dec, Insomnia G47.00 [facility] [address] [id number] [address] [place] [address] 18 Dec, 2015 Hypertension I10 and Hyperka lemia 276.7 [facility] [address] [id number] [address] [place] [address] 10 Dec, 2015 Chronic kidney disease N18.9 [facility] [address] [id number] [address] [place] [address] Dec, [facility] [address] [address] 04 Dec, 2015 Hyperkalemia E87.5 [facility] [address] [address] Dec, Chronic kidney disease N18.9 and Right ankle pain M25.571 [facility] [address] [id number] 11 Nov, 2015 GERD (gastroesophageal reflu x disease) K21.9 [facility] [address] [place] [id number] [address] [place] [address] Nov, Right ankle pain M25.571 [facility] [address] [address] 03 Nov, 2015 Diabetes mellitus E11.9 [facility] [address] [place] [id number] [address] [place] [address] Oct, [facility] [address] [id number] [address] [place] [address] Oct, [facility] [address] [id number] [address] [place] [address] Oct, [facility] [address] [id number] Oct, Hyperkalemia E87.5 [facility] [address] [place] [id number] [address] [place] [address] Oct, [facility] [address] [place] [id number] [address] [place] [address] Oct, Hyperkalemia E87.5 [facility] [address] [id number] [address] [place] [address] Sep, [facility] [address] [id number] [address] [place] [address] Sep, [facility] [address] [id number] [address] [place] [address] Sep, [facility] [address] [id number] [address] [place] [phone] Sep, [facility] [address] [id number] [address] [place] [address] Sep, Right ankle pain M25.571 [facility] [address] [id number] [address] [place] [address] Aug, Chronic kidney disease N18.9 [facility] [address] [id number] [address] [place] [phone] Aug, [facility] [address] [id number] [address] [place] [address] Aug, Hyperkalemia E87.5 [facility] [address] [id number] [address] [place] [phone] Aug, [facility] [address] [id number] [address] [place] [phone] Jul, [facility] [address] [id number] [address] [place] [phone] Jul, [facility] [address] [id number] [address] [place] [address] Jul, [facility] [address] [id number] [address] [place] [address] Jul, Diabetes mellitus E11.9 ; En counter for immunization Z23 ; Hypertension I10 and Hyperkalemia E87.5 [facility] [address] [id number] [address] [place] [address], [place] [address] Jul, [facility] [address] [id number] [address] [place] [address], [place] [address] Jul, Hyperkalemia E87.5 [facility] [address] [id number] [address] [place] [address], [place] [address] Jul, Hyperkalemia E87.5 [facility] [address] [id number] [address] [place] [address], [place] [address] Jun, [facility] [address] [id number] [address] [place] [address], [place] [address] Jun, [facility] [address] [id number] [address] [place] [address], [place] [address] Jun, [facility] [address] [id number] [address] [place] [address], [place] [address] Jun, [facility] [address] [id number] [address] [place] [address], [place] [address] May, [facility] [address] [id number] [address] [place] [address], [place] [address] May, [facility] [address] [id number] 21 [place] [address], [place] [address] May, [facility] [address] [id number] [address] [place] [address], [place] [address] May, Hyperkalemia 276.7 [facility] [address] [id number] [address] [place] [address], [place] [address] May, [facility] [address] [id number] [address] [place] [address], [place] [address] Apr, Hyperkalemia 276.7 [facility] [address] [id number] [address] [place] [address], [place] [address] Apr, [facility] [address] [id number] [address] [place] [address], [place] [address] Apr, [facility] [address] [id number] [address] [place] [address] Apr, [facility] [address] [id number] [address] [place] [address] Apr, [facility] [address] [id number] [address] [place] [address] Apr, Hyperkalemia 276.7 [facility] [address] [id number] [address] [place] [address] Apr, [facility] [address] [id number] [address] [place] [address] Apr, [facility] [address] [id number] [address] [place] [address] Mar, [facility] [address] [id number] [address] [place] [address] Mar, Hyperkalemia 276.7 [facility] [address] [id number] [address] [place] [address] Mar, Hyperkalemia 276.7 [facility] [address] [id number] [address] [place] [address] Mar, [facility] [address] [id number] [address] [place] [address] Mar, [facility] [address] [id number] [address] [place] [address] Mar, [facility] [address] [id number] [address] [place] [address] Mar, [facility] [address] [id number] [address] [place] [address] Mar, Anserine bursitis 726.61 [facility] [address] [id number] [address] [place] [address] Mar, Asthma 493.90 and Hyperkalem ia 276.7 [facility] [address] [id number] [address] [place] [address], [place] [address] Mar, [facility] [address] [id number] [address] [place] [address], [place] [address] February, [facility] [address] [id number] [address] [place] [address], [place] [address] February, [facility] [address] [id number] [address] [place] [address], [place] [address] February, [facility] [address] [id number] [address] [place] [address], [place] [address] February, [facility] [address] [id number] [address] [place] [address], [place] [address] February, [facility] [address] [id number] [address] [place] [address], [place] [address] February, [facility] [address] [id number] [address] [place] [address], [place] [address] February, [facility] [address] [id number] [address] [place] [address], [place] [address] February, [facility] [address] [id number] [address] [place] [address], [place] [address] February, [facility] [address] [id number] [address] [place] [address], [place] [address] Jan, [facility] [address] [id number] [address] [place] [address], [place] [address] Jan, [facility] [address] [id number] [address] [place] [address], [place] [address] Dec, [facility] [address] [id number] [address] [place] [address], [place] [address] Dec, [facility] [address] [id number] [address] [place] [address], [place] [address] Dec, [facility] [address] [id number] [address] [place] [address], [place] [address] Dec, [facility] [address] [id number] [facility] [place] [address] Dec, [facility] [address] [id number] [address] [place] [address], [place] [address] Dec, [facility] [address] [id number] [address] [place] [address], [place] [address] Dec, [facility] [address] [id number] [address] [place] [address], [place] [address] Dec, [facility] [address] [id number] [address] [place] [address], [place] [address] Dec, [facility] [address] [id number] [address] [place] [address], [place] [address] Dec, [facility] [address] [id number] [address] [place] [address], [place] [address] Dec, [facility] [address] [id number] [address] [place] [address], [place] [address] Dec, [facility] [address] [id number] [address] [place] [address], [place] [address] Dec, [facility] [address] [id number] [address] [place] [address], [place] [address] Dec, [facility] [address] [id number] [address] [place] [address], [place] [address] Nov, [facility] [address] [id number] [address] [place] [address], [place] [address] Nov, [facility] [address] [id number] [address] [place] [address], [place] [address] Nov, [facility] [address] [id number] [address] [place] [address], [place] [address] Nov, [facility] [address] [id number] [address] [place] [address], [place] [address] Nov, [facility] [address] [id number] [address] [place] [address], [place] [address] Nov, [facility] [address] [id number] [address] [place] [address], [place] [address] Oct, [facility] [address] [id number] [address] [place] [address], [place] [address] Oct, [facility] [address] [id number] [address] [place] [address], [place] [address] Oct, [facility] [address] [id number] [address] [place] [address], [place] [address] Oct, [facility] [address] [id number] [address] [place] [address], [place] [address] Oct, [facility] [address] [id number] [address] [place] [address], [place] [address] Oct, [facility] [address] [id number] [address] [place] [address], [place] [address] Sep, [facility] [address] [id number] [address] [place] [address], [place] [address] 30 Sep, 2014 [facility] [address] [id number] [address] [place] [address], [place] [address] Sep, [facility] [address] [id number] [address] [place] [address], [place] [address] Sep, [facility] [address] [id number] [address] [place] [address], [place] [address] Sep, [facility] [address] [id number] [address] [place] [address], [place] [address] Sep, [facility] [address] [id number] [address] [place] [address], [place] [address] Aug, [facility] [address] [id number] [address] [place] [address], [place] [address] Aug, [facility] [address] [id number] [address] [place] [address], [place] [address] Aug, [facility] [address] [id number] [address] [place] [address], [place] [address] Aug, [facility] [address] [id number] [address] [place] [address], [place] [address] Aug, [facility] [address] [id number] [address] [place] [address], [place] [address] Aug, [facility] [address] [id number] [address] [place] [address], [place] [address] Jul, [facility] [address] [id number] [address] [place] [address], [place] [address] Jul, [facility] [address] [id number] [address] [place] [address], [place] [address] Jul, [facility] [address] [id number] [address] [place] [address], [place] [address] Jul, [facility] [address] [id number] [address] [place] [address], [place] [address] Jul, [facility] [address] [id number] [address] [place] [address], [place] [address] Jul, [facility] [address] [id number] [address] [place] [address] Jul, [facility] [address] [id number] [address] [place] [address] Jul, [facility] [address] [id number] [address] [place] [address] Jul, [facility] [address] [id number] [address] [place] [address], [place] [address] Jul, [facility] [address] [id number] [address] [place] [address], [place] [address] Jul, [facility] [address] [id number] [address] [place] [address], [place] [address] Jun, [facility] [address] [id number] [address] [place] [address] Jun, [facility] [address] [id number] [address] [place] [address] Jun, [facility] [address] [id number] [address] [place] [address] Jun, [facility] [address] [id number] [address] [place] [address] Apr, [facility] [address] [id number] [address] [place] [address] Apr, [facility] [address] [id number] [address] [place] [address] Apr, [facility] [address] [id number] [address] [place] [address] Apr, [facility] [address] [id number] [address] [place] [address] Mar, [facility] [address] [id number] [address] [place] [address] Mar, [facility] [address] [id number] [address] [place] [address] Mar, [facility] [address] [id number] [address] [place] [address] Mar, [facility] [address] [id number] [address] [place] [address] Mar, [facility] [address] [id number] [address] [place] [address] Sep, [facility] [address] [id number] [address] [place] [address] Sep, [facility] [address] [id number] [address] [place] [address] Aug, IMMUNIZATIONS No Known Immunizations SOCIAL HISTORY [...]
--- OUTSIDE RECORDS SUMMARY | 2020-04-01 19:30 | XMS REPORT ---
Author Author Josephine WILLIS Organization [facility] Address [address] [place] [address] Care Team Providers Care Polisher Dial Name Role Phone OLYA WILLIS Unavailable PROBLEMS Type Condition ICD9-CM Code GHB01-BL Code Onset Dates Condition S tatus SNOMED Code Problem Diabetes mellitus E11.9 Active 73 775859 Problem Hypertension I10 Active 2946935 3 Problem Paresthesias R20.2 Active 1798274 4 Problem Chronic kidney disease N18.9 Active 315360704 Problem Venous insufficiency I87.2 Active 86355480 Problem Diabetic polyneuropathy associated with type 2 d iabetes mellitus E11.42 Active 84065787 Problem Type 2 diabetes mellitus with diabetic autonomic (poly)neuropathy E11.43 Active 455408898 Problem Chronic skin ulcer with fat layer exposed L98.492 Active 91296102 Problem Chronic osteomyelitis of right foot with draining sinus M86.471 Active 702035916376305 Problem PAD (peripheral artery disease) I73.9 Active 743024849 Problem Gastroparesis K31.84 Active 580503 006 Problem Seasonal allergic rhinitis due to other allergic trigger J30.89 Active 360708255 Problem GERD (gastroesophageal reflux disease) K21.9 Active 316173683 Problem Type 2 diabetes mellitus with foot ulcer E11.621 Active 72244803617504 Problem 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 Active 161437882 Problem Pressure ulcer of unspecified heel, stage 4 L89.60 4 Active 103408318 Problem Unsteady gait R26.81 Active 562187 08 ALLERGIES No Information ENCOUNTERS Encounter Location Date Diagnosis [facility] [address] [facility] [id number] [address] [place] [address] Apr, [facility] [address] [facility] [id number] [address] [place] [address] Apr, Foot callus L84 and Nonheali ng wound of heel S91.309A [facility] [address] [id number] [address] [place] [address] Apr, [address] [address] Mar, [facility] [address] [id number] [address] [place] [address] Mar, Diabetes mellitus E11.9 and Chronic skin ulcer with fat layer exposed L98.492 [facility] [address] [id number] [address] [place] [address] Mar, Chronic skin ulcer with fat layer exposed L98.492 [facility] [address] [id number] [address] [place] [address] Mar, [facility] [address] [id number] [address] [place] [address] February, Chronic skin ulcer with fat layer exposed L98.492 and Encounter for medication monitoring Z51.81 [facility] [address] [id number] [address] [place] [address] February, [facility] [address] [id number] [address] [place] [address] February, Encounter for medication mon itoring Z51.81 [facility] [address] [id number] [address] [place] [address] February, [facility] [address] [id number] [address] [place] [address] February, [facility] [address] [id number] [address] [place] [address] February, [facility] [address] [id number] [address] [place] [address] Jan, Chronic skin ulcer with fat layer exposed L98.492 [facility] [address] [id number] [address] [place] [address] Jan, [facility] [address] [id number] [address] [place] [address] Dec, [facility] [address] [id number] [address] [place] [address] Dec, Diabetic polyneuropathy asso ciated with type 2 diabetes mellitus E11.42 and PAD (peripheral artery disease) I73.9 [facility] [address] [id number] [address] [place] [address] Dec, Chronic skin ulcer with fat layer exposed L98.492 [facility] [address] [id number] [address] [place] [address] Dec, [facility] [address] [id number] [address] [place] [address] Nov, [facility] [address] [id number] [address] [place] [address] Nov, Skin ulcer of right foot wit h fat layer exposed L97.512 [facility] [address] [id number] [address] [place] [address] Oct, [facility] [address] [id number] [address] [place] [address] Oct, Skin ulcer of right foot wit h fat layer exposed L97.512 [facility] [address] [id number] [address] [place] [address] Sep, Diabetes mellitus E11.9 [facility] [address] [id number] [address] [place] [address] Sep, [facility] [address] [id number] [address] [place] [phone] Sep, [facility] [address] [id number] [address] [place] [address] Sep, [facility] [address] [id number] [address] [place] [address] Sep, Type 2 diabetes mellitus wit h foot ulcer E11.621 and Skin ulcer of right foot with fat layer exposed L97.512 [facility] [address] [id number] [address] [place] [address] Sep, Diabetes mellitus E11.9 [facility] [address] [id number] [address] [place] [address] Sep, [facility] [address] [id number] [address] [place] [address] Aug, [facility] [address] [id number] [address] [place] [address] Aug, [facility] [address] [id number] [address] [place] [address] Aug, 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 [facility] [address] [id number] [address] [place] [address] Aug, [facility] [address] [id number] [address] [place] [address] Aug, [facility] [address] [id number] [address] [place] [address] Aug, Bronchitis J40 [facility] [address] [id number] [address] [place] [address] Aug, [facility] [address] [id number] [address] [place] [address] Jul, [facility] [address] [id number] [address] [place] [address] Jul, Chronic skin ulcer with fat layer exposed L98.492 [facility] [address] [id number] [address] [place] [address] Jul, 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 [facility] [address] [id number] [address] [place] [address] Jun, [facility] [address] [id number] [address] [place] [address] Jun, [place] [address] [place] [id number] [address] [place] [address] May, [place] [id number] [place] [address] May, Chronic skin ulcer with fat layer exposed L98.492 [place] [address] [place] [id number] [address] [place] [address] Apr, [place] [address] [place] [id number] [address] [place] [address] Apr, Type 2 diabetes mellitus wit h foot ulcer E11.621 and Unsteady gait R26.81 [place] [address] [place] [id number] [address] [place] [address] Mar, Decubitus ulcer of right mariana l, stage 3 L89.613 [place] [address] [place] [id number] [address] [place] [address] Mar, [place] [address] [place] [id number] [address] [place] [address] Mar, Pressure ulcer of unspecifie d heel, stage 4 L89.604 and Type 2 diabetes mellitus with foot ulcer E11.621 [place] [id number] [place] [address] Mar, Encounter for medication mon itoring Z51.81 [place] [address] [place] [id number] [address] [place] [address] Mar, Type 2 diabetes mellitus wit h foot ulcer E11.621 and Non-pressure chronic ulcer of right heel and midfoot with unspecified severity L97.419 [place] [address] [place] [address] February, [place] [address] [place] [id number] [address] [place] [address] Jan, Right ankle pain M25.571 [place] [address] [facility] [id number] [address] [place] [address] Dec, Right ankle pain M25.571 [facility] [address] [facility] [id number] [address] [place] [address] Dec, [facility] [address] [facility] [id number] [address] [place] [address] Dec, [facility] [address] [place] [id number] [address] [place] [address] Dec, Right ankle pain M25.571 [facility] [address] [facility] [id number] [address] [place] [address] Dec, Chronic skin ulcer with fat layer exposed L98.492 ; Type 2 diabetes mellitus with diabetic autonomic (poly)neuropathy E11.43 and Hypertension I10 [facility] [address] [place] [id number] [address] [place] [address] Nov, [facility] [address] [place] [id number] [address] [place] [address] Nov, [facility] [address] [place] [id number] [address] [place] [address] Nov, [facility] [address] [place] [id number] [address] [place] [address] Nov, Right ankle pain M25.571 and Chronic osteomyelitis of right foot with draining sinus M86.471 [facility] [address] [place] [id number] [address] [place] [address] Oct, Right ankle pain M25.571 [facility] [address] [place] [id number] [address] [place] [address] Oct, [facility] [address] [place] [id number] [address] [place] [address] Sep, Diabetes mellitus E11.9 [facility] [address] [place] [id number] [address] [place] [address] Sep, Diabetic polyneuropathy asso ciated with type 2 diabetes mellitus E11.42 and Venous insufficiency I87.2 [facility] [address] [id number] [address] [place] [address] Sep, Right ankle pain M25.571 [facility] [address] [id number] [address] [place] [address] Aug, Right ankle pain M25.571 [facility] [address] [id number] [address] [place] [address] Aug, Chronic osteomyelitis of rig ht foot with draining sinus M86.471 [facility] [address] [id number] [address] [place] [address] Aug, [facility] [address] [id number] [address] [place] [address] Aug, [facility] [address] [id number] [address] [place] [address] Aug, Chronic osteomyelitis of rig ht foot with draining sinus M86.471 [facility] [address] [id number] [address] [place] [address] Jul, [facility] [address] [id number] [address] [place] [address] Jul, [facility] [address] [id number] [address] [place] [address] Jul, Chronic kidney disease N18.9 [facility] [address] [id number] [address] [place] [address] Jul, Right ankle pain M25.571 [facility] [address] [id number] [address] [place] [address] Jul, Non-healing ulcer of right f oot, unspecified ulcer stage L97.519 [facility] [address] [id number] [address] [place] [address] Jul, Chronic skin ulcer with fat layer exposed L98.492 [facility] [address] [id number] [address] [place] [address] 09 Jul, 2017 Deformity of right ankle nitza nt M21.961 [facility] [address] [facility] [id number] [address] [place] [address] 27 Jun, 2017 [facility] [address] [facility] [id number] [address] [place] [address] 21 Jun, 2017 Diabetes mellitus E11.9 ; Sk in ulcer of right foot with fat layer exposed L97.512 and Encounter for immunization Z23 [facility] [address] [facility] [id number] [address] [place] [address] 18 Jun, 2017 Right ankle pain M25.571 [place] [address] [facility] [id number] [address] [place] [address] May, Right ankle pain M25.571 [place] [address] [place] [id number] [address] [place] [address] Apr, Right ankle pain M25.571 [facility] [address] [facility] [id number] [address] [place] [address] Mar, Right ankle pain M25.571 [facility] [address] [facility] [id number] [address] [place] [address] Mar, [facility] [address] [place] [id number] [address] [place] [address] February, Diabetes mellitus E11.9 and Diabetic polyneuropathy associated with type 2 diabetes mellitus E11.42 [facility] [address] [facility] [id number] [address] [place] [address] February, Hyperkalemia E87.5 [facility] [address] [place] [id number] [address] [place] [address] February, Right ankle pain M25.571 [facility] [address] [facility] [id number] [address] [place] [address] Jan, Right ankle pain M25.571 [facility] [address] [facility] [id number] [address] [place] [address] Dec, Right ankle pain M25.571 [facility] [address] [place] [id number] [place] [address] Dec, Right ankle pain M25.571 [facility] [address] [facility] [id number] [address] [place] [address] Nov, [facility] [address] [place] [id number] [place] [address] Nov, Diabetes mellitus E11.9 ; Hy pertension I10 ; Gastroparesis K31.84 and Type 2 diabetes mellitus with diabetic autonomic (poly)neuropathy E11.43 [facility] [address] [place] [id number] [place] [address] Nov, Right ankle pain M25.571 [facility] [address] [address] Oct, Right ankle pain M25.571 [facility] [address] [place] [id number] [address] [place] [address] Oct, [facility] [address] [place] [id number] [place] [address] Oct, [facility] [address] [place] [id number] [address] [place] [address] Sep, [facility] [address] [place] [id number] [place] [address] Sep, Hypertension I10 [facility] [address] [facility] [id number] [address] [place] [address] Sep, Chronic kidney disease N18.9 ; Right ankle pain M25.571 and GERD (gastroesophageal reflux disease) K21.9 [facility] [address] [facility] [id number] [address] [place] [address] Jul, [facility] [address] [place] [id number] [place] [address] Jul, Encounter for immunization Z 23 ; Venous insufficiency I87.2 and Diabetic polyneuropathy associated with type 2 diabetes mellitus E11.42 [facility] [address] [id number] [address] [place] [address] Jul, [facility] [address] [id number] [address] [place] [address] Jul, Diabetes mellitus E11.9 [facility] [address] [id number] [address] [place] [address] May, [facility] [address] [id number] [address] [place] [address] Apr, [facility] [address] [id number] [address] [place] [address] Mar, Right ankle pain M25.571 [facility] [address] [id number] [address] [place] [address] Mar, [facility] [address] [id number] [address] [place] [address] February, Paresthesias R20.2 [facility] [address] [id number] [address] [place] [address] February, [facility] [address] [facility] [id number] [address] [place] [address] February, 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 [facility] [address] [id number] [address] [place] [address] February, Diabetes mellitus E11.9 [facility] [address] [id number] [address] [place] [address] February, [facility] [address] [facility] [id number] [address] [place] [address] February, Polyneuropathy in diabetes 3 57.2 and Paresthesias R20.2 [facility] [address] [id number] [address] [place] [address] February, [facility] [address] [facility] [id number] [address] [place] [address] February, [facility] [address] [facility] [id number] [address] [place] [address] February, [facility] [address] [facility] [id number] [address] [place] [address] February, Diabetes mellitus E11.9 [facility] [address] [facility] [id number] [address] [place] [address] February, [facility] [address] [facility] [id number] [address] [place] [address] February, Hyperkalemia E87.5 [facility] [address] [facility] [id number] [address] [place] [address] Jan, Hypertension I10 [facility] [address] [facility] [id number] [place] [address] Jan, Insomnia G47.00 [facility] [address] [facility] [id number] [address] [place] [address] Jan, [facility] [address] [place] [id number] [address] [place] [address] Jan, [facility] [address] [facility] [id number] [address] [place] [address] Jan, [facility] [address] [facility] [id number] [address] [place] [address] Dec, Right ankle pain M25.571 [facility] [address] [facility] [id number] [address] [place] [address] Dec, GERD (gastroesophageal reflu x disease) K21.9 [facility] [address] [facility] [id number] [address] [place] [address] Dec, Insomnia G47.00 [facility] [address] [facility] [id number] [address] [place] [address] Dec, Hypertension I10 and Hyperka lemia 276.[address] [place] [address] [facility] [id number] [address] [place] [address] 10 Dec, 2015 Chronic kidney disease N18.9 [facility] [address] [facility] [id number] [address] [place] [address] 07 Dec, 2015 [facility] [address] [facility] [id number] [address] [place] [address] Dec, Hyperkalemia E87.5 [facility] [address] [facility] [id number] [address] [place] [address] Dec, Chronic kidney disease N18.9 and Right ankle pain M25.571 [facility] [address] [facility] [id number] [address] [place] [address] 11 Nov, 2015 GERD (gastroesophageal reflu x disease) K21.9 [facility] [address] [facility] [id number] [address] [place] [address] 03 Nov, 2015 Right ankle pain M25.571 [facility] [address] [facility] [id number] [address] [place] [address] Nov, Diabetes mellitus E11.9 [facility] [address] [facility] [id number] [address] [place] [id number] Oct, [facility] [address] [facility] [id number] [address] [place] [phone] Oct, [facility] [address] [facility] [id number] [address] [place] [phone] Oct, [facility] [address] [facility] [id number] [address] [place] [phone] Oct, Hyperkalemia E87.5 [facility] [address] [facility] [id number] [address] [place] [phone] Oct, [facility] [address] [facility] [id number] [address] [place] [phone] Oct, Hyperkalemia E87.5 [facility] [address] [facility] [id number] [address] [place] [id number] Sep, [facility] [address] [id number] [address] [place] [phone] Sep, [facility] [address] [id number] [address] [place] [phone] Sep, [facility] [address] [id number] [address] [place] [phone] Sep, [facility] [address] [id number] [address] [place] [phone] Sep, Right ankle pain M25.571 [facility] [address] [id number] [address] [place] [id number] Aug, Chronic kidney disease N18.9 [facility] [address] [facility] [id number] [address] [place] [id number] Aug, [facility] [address] [id number] [address] [place] [id number] Aug, Hyperkalemia E87.5 [facility] [address] [facility] [id number] [address] [place] [phone] Aug, [facility] [address] [facility] [id number] [address] [place] [id number] Jul, [facility] [address] [id number] [address] [place] [phone] Jul, [facility] [address] [facility] [id number] [address] [place] [phone] Jul, [facility] [address] [facility] [id number] [address] [place] [phone] Jul, Diabetes mellitus E11.9 ; En counter for immunization Z23 ; Hypertension I10 and Hyperkalemia E87.5 [facility] [address] [facility] [id number] [address] [place] [id number] Jul, [facility] [address] [id number] [address] [place] [address] [place] [phone] Jul, Hyperkalemia E87.5 [facility] [address] [id number] [address] [place] [address], [place] [phone] Jul, Hyperkalemia E87.5 [facility] [address] [id number] [address] [place], [place] [address], [place] [address] Jun, [facility] [address] [id number] [address] [place] [address], [place] [address] Jun, [facility] [address] [id number] [address] [place] [address], [place] [address] Jun, [facility] [address] [id number] [address] [place] [address], [place] [address] Jun, [facility] [address] [id number] [address] [place] [address], [place] [address] May, [facility] [address] [id number] [address] [place] [address] May, [facility] [address] [id number] [address] [place] [address], [place] [address] May, [facility] [address] [id number] [address] [place] [address] May, Hyperkalemia 276.7 [facility] [address] [id number] [address] [place] [address], [place] [address] May, [facility] [address] [id number] [address] [place] [address] Apr, Hyperkalemia 276.7 [facility] [address] [id number] [address] [place] [address], [place] [address] Apr, [facility] [address] [id number] [address] [place] [address], [place] [address] Apr, [facility] [address] [id number] [address] [place] [address], [place] [address] Apr, [facility] [address] [id number] [address] [place] [address] Apr, [facility] [address] [id number] [address] [place] [phone] 14 Apr, 2015 Hyperkalemia 276.7 [facility] [address] [id number] [address] [place] [address] Apr, [facility] [address] [id number] [address] [place] [address] Apr, [facility] [address] [id number] [address] [place] [address] Mar, [facility] [address] [id number] [address] [place] [address] Mar, Hyperkalemia 276.7 [facility] [address] [id number] [address] [place] [address] Mar, Hyperkalemia 276.7 [facility] [address] [id number] [address] [place] [address] Mar, [facility] [address] [id number] [address] [place] [address] Mar, [facility] [address] [id number] [address] [place] [address] Mar, [facility] [address] [id number] [address] [place] [address] Mar, [facility] [address] [id number] [address] [place] [address] Mar, Anserine bursitis 726.61 [facility] [address] [id number] [address] [place] [phone] Mar, Asthma 493.90 and Hyperkalem ia 276.7 [facility] [address] [id number] [address] [place] [phone] Mar, [facility] [address] [id number] [address] [place] [address], [place] [address] February, [facility] [address] [id number] [address] [place] [address], [place] [address] February, [facility] [address] [id number] [address] [place] [address], [place] [address] February, [facility] [address] [id number] [address] [place] [address], [place] [address] February, [facility] [address] [id number] [address] [place] [address], [place] [address] February, [facility] [address] [id number] [address] [place] [address], [place] [address] February, [facility] [address] [id number] [address] [place] [address], [place] [address] February, [facility] [address] [id number] [address] [place] [address], [place] [address] February, [facility] [address] [id number] [address] [place] [address], [place] [address] February, [facility] [address] [id number] [address] [place] [address], [place] [address] Jan, [facility] [address] [id number] [address] [place] [address], [place] [address] Jan, [facility] [address] [id number] [address] [place] [address], [place] [address] Dec, [facility] [address] [id number] [address] [place] [address], [place] [address] Dec, [facility] [address] [id number] [address] [place] [address], [place] [address] Dec, [facility] [address] [id number] [address] [place] [address], [place] [address] Dec, [facility] [address] [id number] [address] [place] [address], [place] [address] Dec, [facility] [address] [id number] [address] [place] [address], [place] [address] Dec, [facility] [address] [id number] [address] [place] [address], [place] [address] Dec, [facility] [address] [id number] [address] [place] [address], [place] [address] Dec, [facility] [address] [id number] [address] [place] [address], [place] [address] Dec, [facility] [address] [id number] [address] [place] [address], [place] [address] Dec, [facility] [address] [id number] [address] [place] [address], [place] [address] Dec, [facility] [address] [id number] [address] [place] [address], [place] [address] Dec, [facility] [address] [id number] [address] [place] [address], [place] [address] Dec, [facility] [address] [id number] [address] [place] [address], [place] [address] Dec, [facility] [address] [id number] [address] [place] [address], [place] [address] Nov, [facility] [address] [id number] [address] [place] [address], [place] [address] Nov, [facility] [address] [id number] [address] [place] [address], [place] [address] Nov, 2014 [facility] [address] [id number] [address] [place] [address], [place] [address] Nov, [facility] [address] [id number] [address] [place] [address], [place] [address] Nov, [facility] [address] [id number] [address] [place] [address], [place] [address] Nov, [facility] [address] [id number] [address] [place] [address] Oct, [facility] [address] [id number] [address] [place] [address], [place] [address] Oct, [facility] [address] [id number] [address] [place] [address], [place] [address] Oct, [facility] [address] [id number] [address] [place] [address], [place] [address] Oct, [facility] [address] [id number] [address] [place] [address], [place] [address] Oct, [facility] [address] [id number] [address] [place] [address], [place] [address] Oct, [facility] [address] [id number] [address] [place] [address], [place] [address] Sep, [facility] [address] [id number] [address] [place] [address], [place] [address] Sep, [facility] [address] [id number] [address] [place] [address], [place] [address] Sep, [facility] [address] [id number] [address] [place] [address], [place] [address] Sep, [facility] [address] [id number] [address] [place] [address], [place] [address] Sep, [facility] [address] [id number] [address] [place] [address], [place] [address] Sep, [facility] [address] [id number] [address] [place] [address], [place] [address] Aug, [facility] [address] [id number] [address] [place] [address], [place] [address] Aug, [facility] [address] [id number] [address] [place] [address], [place] [address] Aug, [facility] [address] [id number] [address] [place] [address], [place] [address] Aug, [facility] [address] [id number] [address] [place] [address], [place] [address] Aug, [facility] [address] [id number] [address] [place] [address], [place] [address] Aug, [facility] [address] [id number] [address] [place] [address], [place] [address] Jul, [facility] [address] [id number] [address] [place] [address], [place] [address] Jul, [facility] [address] [id number] [address] [place] [address], [place] [address] Jul, [facility] [address] [id number] [address] [place] [address], [place] [address] Jul, [facility] [address] [id number] [address] [place] [address], [place] [address] Jul, [facility] [address] [id number] [address] [place] [address], [place] [address] Jul, [facility] [address] [id number] [address] [place] [address], [place] [address] Jul, [facility] [address] [id number] [address] [place] [address], [place] [address] Jul, [facility] [address] [id number] [address] [place] [address], [place] [address] Jul, [facility] [address] [id number] [address] [place] [address], [place] [address] Jul, [facility] [address] [id number] [address] [place] [address], [place] [address] Jul, [facility] [address] [id number] [address] [place] [address], [place] [address] Jun, [facility] [address] [id number] [address] [place] [address], [place] [address] Jun, [facility] [address] [id number] [address] [place] [address], [place] [address] Jun, [facility] [address] [id number] [address] [place] [address] Jun, [facility] [address] [id number] [address] [place] [address] Apr, [facility] [address] [id number] [address] [place] [address] Apr, [facility] [address] [id number] [address] [place] [address] Apr, [facility] [address] [id number] [address] [place] [address] Apr, [facility] [address] [id number] [address] [place] [address] Mar, [facility] [address] [id number] [address] [place] [address] Mar, [facility] [address] [id number] [address] [place] [address] Mar, [facility] [address] [id number] [address] [place] [address] Mar, [facility] [address] [id number] [address] [place] [address] Mar, [facility] [address] [id number] [address] [place] [address] Sep, [facility] [address] [id number] [address] [place] [address] Sep, [facility] [address] [id number] [address] [place] [address] Aug, IMMUNIZATIONS No Known Immunizations SOCIAL HISTORY Never Assessed REASON FOR VISIT PLAN OF CARE VITAL SIGNS Height 62 in 2015-01-14 Weight 150 lbs 2015-01-14 Temperature 97.9 degrees Fahrenheit 2015-01-14 Heart Rate 76 bpm 2015-01-14 Respiratory Rate 18 2015-01-14 Blood pressure systolic 129 mmHg 2015-01-14 Blood pressure diastolic 74 mmHg 2015-01-14 MEDICATIONS Unknown Medications RESULTS No Results PROCEDURES Procedure Date Ordered Result Body Site GLYCATED HEMOGLOBIN TEST January 14, 2015 INSTRUCTIONS MEDICATIONS ADMINISTERED No Known Medications MEDICAL [...] V C oct 2016 Hospitalization History Pneumonia [place] [facility] 06/2018 Hospitalization History fistula in left arm 07/2018
--- OUTSIDE RECORDS SUMMARY | 2020-04-01 19:30 | XMS REPORT ---
Author Author Josephine GATES Organization [facility] Address [address] [place] [address] Care Team Providers Care Resist Coater Developer Name Role Phone TIFF GATES Unavailable PROBLEMS Type Condition ICD9-CM Code FGG22-KP Code Onset Dates Condition S tatus SNOMED Code Problem Diabetes mellitus E11.9 Active 73 842460 Problem Hypertension I10 Active 2292198 3 Problem Paresthesias R20.2 Active 9741037 4 Problem Chronic kidney disease N18.9 Active 582243746 Problem Venous insufficiency I87.2 Active 33831868 Problem Diabetic polyneuropathy associated with type 2 d iabetes mellitus E11.42 Active 33761947 Problem Type 2 diabetes mellitus with diabetic autonomic (poly)neuropathy E11.43 Active 099177167 Problem Chronic skin ulcer with fat layer exposed L98.492 Active 50242752 Problem Chronic osteomyelitis of right foot with draining sinus M86.471 Active 968128138936827 Problem PAD (peripheral artery disease) I73.9 Active 587014636 Problem Gastroparesis K31.84 Active 662374 006 Problem Seasonal allergic rhinitis due to other allergic trigger J30.89 Active 269690177 Problem GERD (gastroesophageal reflux disease) K21.9 Active 920212337 Problem Type 2 diabetes mellitus with foot ulcer E11.621 Active 95527219233911 Problem 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 Active 023475424 Problem Pressure ulcer of unspecified heel, stage 4 L89.60 4 Active 087736419 Problem Unsteady gait R26.81 Active 247128 08 ALLERGIES No Information ENCOUNTERS Encounter Location Date Diagnosis [facility] [address] [facility] [id number] [address] [place] [id number] Apr, [facility] [address] [facility] [id number] [address] [place] [phone] Apr, Foot callus L84 and Nonheali ng wound of heel S91.309A [facility] [address] [id number] [address] [place] [phone] Apr, [address] [address] Mar, [facility] [address] [id number] [address] [place] [phone] Mar, Diabetes mellitus E11.9 and Chronic skin ulcer with fat layer exposed L98.492 [facility] [address] [id number] [address] [place] [phone] Mar, Chronic skin ulcer with fat layer exposed L98.492 [facility] [address] [id number] [address] [place] [phone] Mar, [facility] [address] [id number] [address] [place] [phone] February, Chronic skin ulcer with fat layer exposed L98.492 and Encounter for medication monitoring Z51.81 [facility] [address] [id number] [address] [place] [phone] February, [facility] [address] [id number] [address] [place] [phone] February, Encounter for medication mon itoring Z51.81 [facility] [address] [id number] [address] [place] [phone] February, [facility] [address] [id number] [address] [place] [phone] February, [facility] [address] [id number] [address] [place] [phone] February, [facility] [address] [id number] [address] [place] [phone] Jan, Chronic skin ulcer with fat layer exposed L98.492 [facility] [address] [id number] [address] [place] [phone] Jan, [facility] [address] [id number] [address] [place] [phone] Dec, [facility] [address] [id number] [address] [place] [phone] Dec, Diabetic polyneuropathy asso ciated with type 2 diabetes mellitus E11.42 and PAD (peripheral artery disease) I73.9 [facility] [address] [id number] [address] [place] [phone] Dec, Chronic skin ulcer with fat layer exposed L98.492 [facility] [address] [id number] [address] [place] [id number] Dec, [facility] [address] [id number] [address] [place] [phone] Nov, [facility] [address] [id number] [address] [place] [phone] Nov, Skin ulcer of right foot wit h fat layer exposed L97.512 [facility] [address] [id number] [address] [place] [phone] Oct, [facility] [address] [id number] [address] [place] [phone] Oct, Skin ulcer of right foot wit h fat layer exposed L97.512 [facility] [address] [id number] [address] [place] [phone] Sep, Diabetes mellitus E11.9 [facility] [address] [id number] [address] [place] [phone] Sep, [facility] [address] [id number] [address] [place] [phone] Sep, [facility] [address] [id number] [address] [place] [phone] Sep, [facility] [address] [id number] [address] [place] [id number] Sep, Type 2 diabetes mellitus wit h foot ulcer E11.621 and Skin ulcer of right foot with fat layer exposed L97.512 [facility] [address] [id number] [address] [place] [id number] Sep, Diabetes mellitus E11.9 [facility] [address] [id number] [address] [place] [phone] Sep, [facility] [address] [id number] [address] [place] [phone] Aug, [facility] [address] [id number] [address] [place] [phone] Aug, [facility] [address] [id number] [address] [place] [phone] Aug, 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 [facility] [address] [id number] [address] [place] [phone] Aug, [facility] [address] [id number] [address] [place] [phone] Aug, [facility] [address] [id number] [address] [place] [phone] Aug, Bronchitis J40 [facility] [address] [facility] [id number] [address] [place] [phone] Aug, [facility] [address] [id number] [address] [place] [phone] Jul, [facility] [address] [id number] [address] [place] [phone] Jul, Chronic skin ulcer with fat layer exposed L98.492 [facility] [address] [id number] [address] [place] [phone] Jul, 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 [facility] [address] [id number] [address] [place] [phone] Jun, [facility] [address] [place] [id number] [address] [place] [phone] Jun, [place] [address] [place] [id number] [address] [place] [phone] May, [place] [address] [place] [id number] [address] [place] [id number] May, Chronic skin ulcer with fat layer exposed L98.492 [place] [address] [phone] Apr, [place] [address] [place] [id number] [place] [phone] Apr, Type 2 diabetes mellitus wit h foot ulcer E11.621 and Unsteady gait R26.81 [place] [address] [place] [id number] [place] [phone] Mar, Decubitus ulcer of right mariana l, stage 3 L89.613 [place] [address] [phone] Mar, [place] [address] [address] Mar, Pressure ulcer of unspecifie d heel, stage 4 L89.604 and Type 2 diabetes mellitus with foot ulcer E11.621 [place] [address] [place] [id number] [address] [place] [phone] Mar, Encounter for medication mon itoring Z51.81 [place] [address] [place] [id number] [address] [place] [phone] Mar, Type 2 diabetes mellitus wit h foot ulcer E11.621 and Non-pressure chronic ulcer of right heel and midfoot with unspecified severity L97.419 [place] [address] [place] [id number] [address] [place] [phone] February, [place] [address] [place] [id number] [address] [place] [phone] Jan, Right ankle pain M25.571 [place] [address] [facility] [id number] [address] [place] [phone] Dec, Right ankle pain M25.571 [facility] [address] [facility] [id number] [address] [place] [phone] Dec, [facility] [address] [place] [id number] [address] [place] [phone] Dec, [facility] [address] [place] [id number] [address] [place] [id number] Dec, Right ankle pain M25.571 [facility] [address] [place] [id number] [address] [place] [phone] Dec, Chronic skin ulcer with fat layer exposed L98.492 ; Type 2 diabetes mellitus with diabetic autonomic (poly)neuropathy E11.43 and Hypertension I10 [facility] [address] [place] [id number] [address] [place] [phone] Nov, [facility] [address] [place] [id number] [address] [place] [phone] Nov, [facility] [address] [place] [id number] [address] [place] [phone] Nov, [facility] [address] [place] [id number] [address] [place] [address] Nov, Right ankle pain M25.571 and Chronic osteomyelitis of right foot with draining sinus M86.471 [facility] [address] [place] [id number] [address] [place] [phone] Oct, Right ankle pain M25.571 [facility] [address] [place] [id number] [address] [place] [phone] Oct, [facility] [address] [place] [id number] [address] [place] [phone] Sep, Diabetes mellitus E11.9 [facility] [address] [place] [id number] [address] [place] [id number] Sep, Diabetic polyneuropathy asso ciated with type 2 diabetes mellitus E11.42 and Venous insufficiency I87.2 [facility] [address] [id number] [address] [place] [phone] Sep, Right ankle pain M25.571 [facility] [address] [id number] [address] [place] [id number] Aug, Right ankle pain M25.571 [facility] [address] [id number] [address] [place] [phone] Aug, Chronic osteomyelitis of rig ht foot with draining sinus M86.471 [facility] [address] [id number] [address] [place] [phone] Aug, [facility] [address] [id number] [address] [place] [phone] Aug, [facility] [address] [id number] [address] [place] [phone] Aug, Chronic osteomyelitis of rig ht foot with draining sinus M86.471 [facility] [address] [id number] [address] [place] [phone] Jul, [facility] [address] [id number] [address] [place] [phone] Jul, [facility] [address] [id number] [address] [place] [phone] Jul, Chronic kidney disease N18.9 [facility] [address] [id number] [address] [place] [phone] Jul, Right ankle pain M25.571 [facility] [address] [id number] [address] [place] [phone] Jul, Non-healing ulcer of right f oot, unspecified ulcer stage L97.519 [facility] [address] [id number] [address] [place] [id number] Jul, Chronic skin ulcer with fat layer exposed L98.492 [facility] [address] [facility] [id number] [address] [place] [phone] 09 Jul, 2017 Deformity of right ankle nitza nt M21.961 [facility] [address] [id number] [address] [place] [phone] 27 Jun, 2017 [facility] [address] [facility] [id number] [address] [place] [phone] Jun, Diabetes mellitus E11.9 ; Sk in ulcer of right foot with fat layer exposed L97.512 and Encounter for immunization Z23 [facility] [address] [id number] [address] [place] [phone] 18 Jun, 2017 Right ankle pain M25.571 [place] [address] [facility] [id number] [address] [place] [phone] May, Right ankle pain M25.571 [place] [address] [place] [id number] [address] [place] [phone] Apr, Right ankle pain M25.571 [facility] [address] [id number] [address] [place] [phone] Mar, Right ankle pain M25.571 [place] [address] [facility] [id number] [address] [place] [phone] Mar, [facility] [address] [facility] [id number] [address] [place] [phone] February, Diabetes mellitus E11.9 and Diabetic polyneuropathy associated with type 2 diabetes mellitus E11.42 [facility] [address] [facility] [id number] [address] [place] [phone] February, Hyperkalemia E87.5 [facility] [address] [facility] [id number] [address] [place] [phone] February, Right ankle pain M25.571 [facility] [address] [facility] [id number] [address] [place] [address] Jan, Right ankle pain M25.571 [facility] [address] [facility] [id number] [address] [place] [address] Dec, Right ankle pain M25.571 [facility] [address] [facility] [id number] [address] [place] [address] Dec, Right ankle pain M25.571 [facility] [address] [place] [id number] [address] [place] [phone] Nov, [facility] [address] [place] [id number] [place] [phone] Nov, Diabetes mellitus E11.9 ; Hy pertension I10 ; Gastroparesis K31.84 and Type 2 diabetes mellitus with diabetic autonomic (poly)neuropathy E11.43 [facility] [address] [place] [id number] [place] [address] Nov, Right ankle pain M25.571 [facility] [address] [address] Oct, Right ankle pain M25.571 [facility] [address] [place] [id number] [address] [place] [phone] Oct, [facility] [address] [place] [id number] [place] [phone] Oct, [facility] [address] [place] [id number] [address] [place] [phone] Sep, [facility] [address] [place] [id number] [address] [place] [phone] Sep, Hypertension I10 [facility] [address] [facility] [id number] [address] [place] [id number] Sep, Chronic kidney disease N18.9 ; Right ankle pain M25.571 and GERD (gastroesophageal reflux disease) K21.9 [facility] [address] [facility] [id number] [address] [place] [phone] Jul, [facility] [address] [place] [id number] [address] [place] [phone] Jul, Encounter for immunization Z 23 ; Venous insufficiency I87.2 and Diabetic polyneuropathy associated with type 2 diabetes mellitus E11.42 [facility] [address] [id number] [address] [place] [phone] Jul, [facility] [address] [id number] [address] [place] [phone] Jul, Diabetes mellitus E11.9 [facility] [address] [id number] [address] [place] [phone] May, [facility] [address] [id number] [address] [place] [phone] Apr, [facility] [address] [id number] [address] [place] [address] Mar, Right ankle pain M25.571 [facility] [address] [id number] [address] [place] [phone] Mar, [facility] [address] [id number] [address] [place] [id number] February, Paresthesias R20.2 [facility] [address] [id number] [address] [place] [phone] February, [facility] [address] [id number] [address] [place] [phone] February, 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 [facility] [address] [id number] [address] [place] [phone] February, Diabetes mellitus E11.9 [facility] [address] [id number] [address] [place] [id number] February, [facility] [address] [facility] [id number] [address] [place] [phone] February, Polyneuropathy in diabetes 3 57.2 and Paresthesias R20.2 [facility] [address] [facility] [id number] [address] [place] [phone] February, [facility] [address] [id number] [address] [place] [phone] February, [facility] [address] [id number] [address] [place] [phone] February, [facility] [address] [facility] [id number] [address] [place] [phone] February, Diabetes mellitus E11.9 [facility] [address] [id number] [address] [place] [phone] February, [facility] [address] [id number] [address] [place] [phone] February, Hyperkalemia E87.5 [facility] [address] [facility] [id number] [address] [place] [phone] Jan, Hypertension I10 [facility] [address] [facility] [id number] [address] [place] [phone] Jan, Insomnia G47.00 [facility] [address] [facility] [id number] [address] [place] [phone] Jan, [facility] [address] [facility] [id number] [address] [place] [phone] Jan, [facility] [address] [facility] [id number] [address] [place] [phone] Jan, [facility] [address] [facility] [id number] [address] [place] [phone] Dec, Right ankle pain M25.571 [facility] [address] [id number] [address] [place] [phone] Dec, GERD (gastroesophageal reflu x disease) K21.9 [facility] [address] [facility] [id number] [address] [place] [address] Dec, Insomnia G47.00 [facility] [address] [facility] [id number] [address] [place] [phone] Dec, Hypertension I10 and Hyperka lemia 276.7 [facility] [address] [facility] [id number] [address] [place] [phone] 10 Dec, 2015 Chronic kidney disease N18.9 [facility] [address] [facility] [id number] [address] [place] [phone] Dec, [facility] [address] [facility] [id number] [address] [place] [phone] Dec, Hyperkalemia E87.5 [facility] [address] [facility] [id number] [address] [place] [phone] Dec, Chronic kidney disease N18.9 and Right ankle pain M25.571 [facility] [address] [facility] [id number] [address] [place] [phone] 11 Nov, 2015 GERD (gastroesophageal reflu x disease) K21.9 [facility] [address] [facility] [id number] [address] [place] [phone] 03 Nov, 2015 Right ankle pain M25.571 [facility] [address] [facility] [id number] [address] [place] [phone] Nov, Diabetes mellitus E11.9 [facility] [address] [facility] [id number] [address] [place] [phone] Oct, [facility] [address] [facility] [id number] [address] [place] [phone] Oct, [facility] [address] [facility] [id number] [address] [place] [phone] Oct, [facility] [address] [facility] [id number] [address] [place] [phone] Oct, Hyperkalemia E87.5 [facility] [address] [facility] [id number] [address] [place] [phone] Oct, [facility] [address] [facility] [id number] [address] [place] [id number] Oct, Hyperkalemia E87.5 [facility] [address] [facility] [id number] [address] [place] [phone] 29 Sep, 2015 [facility] [address] [id number] [address] [place] [phone] Sep, [facility] [address] [id number] [address] [place] [phone] Sep, [facility] [address] [id number] [address] [place] [phone] Sep, [facility] [address] [id number] [address] [place] [phone] Sep, Right ankle pain M25.571 [facility] [address] [id number] [address] [place] [phone] Aug, Chronic kidney disease N18.9 [facility] [address] [id number] [address] [place] [phone] Aug, [facility] [address] [id number] [address] [place] [phone] Aug, Hyperkalemia E87.5 [facility] [address] [facility] [id number] [address] [place] [phone] Aug, [facility] [address] [facility] [id number] [address] [place] [phone] Jul, [facility] [address] [facility] [id number] [address] [place] [phone] Jul, [facility] [address] [id number] [address] [place] [phone] Jul, [facility] [address] [facility] [id number] [address] [place] [phone] Jul, Diabetes mellitus E11.9 ; En counter for immunization Z23 ; Hypertension I10 and Hyperkalemia E87.5 [facility] [facility] [address] [id number] [address] [place] [id number] Jul, [facility] [address] [id number] [address] [place] [address], [place] [address] Jul, Hyperkalemia E87.5 [facility] [address] [id number] [address] [place] [address], [place] [address] Jul, Hyperkalemia E87.5 [facility] [address] [id number] [address] [place] [address], [place] [address] Jun, [facility] [address] [id number] [address] [place] [address], [place] [address] Jun, [facility] [address] [id number] [address] [place] [address], [place] [address] Jun, [facility] [address] [id number] [address] [place] [address], [place] [address] Jun, [facility] [address] [id number] [address] [place] [address], [place] [address] May, [facility] [address] [id number] [address] [place] [address], [place] [address] May, [facility] [address] [id number] [address] [place] [address], [place] [address] May, [facility] [address] [id number] [address] [place] [id number] May, Hyperkalemia 276.7 [facility] [address] [id number] [address] [place] [address], [place] [address] May, [facility] [address] [id number] [address] [place] [phone] Apr, Hyperkalemia 276.7 [facility] [address] [id number] [address] [place] [address], [place] [address] Apr, [facility] [address] [id number] [address] [place] [address], [place] [address] Apr, [facility] [address] [id number] [address] [place] [phone] Apr, [facility] [address] [id number] [address] [place] [phone] Apr, [facility] [address] [id number] [address] [place] [id number] Apr, Hyperkalemia 276.7 [facility] [address] [id number] [address] [place] [address], [place] [address] Apr, [facility] [address] [id number] [address] [place] [id number] Apr, [facility] [address] [id number] [address] [place] [address], [place] [address] Mar, [facility] [address] [id number] [address] [place] [id number] Mar, Hyperkalemia 276.7 [facility] [address] [id number] [address] [place] [id number] Mar, Hyperkalemia 276.7 [facility] [address] [id number] [address] [place] [id number] Mar, [facility] [address] [id number] [address] [place] [phone] Mar, [facility] [address] [id number] [address] [place] [id number] Mar, [facility] [address] [id number] [address] [place] [id number] Mar, [facility] [address] [id number] [address] [place] [phone] Mar, Anserine bursitis 726.61 [facility] [address] [id number] [address] [place] [phone] Mar, Asthma 493.90 and Hyperkalem ia 276.7 [facility] [address] [id number] [address] [place] [phone] Mar, [facility] [address] [id number] [address] [place] [address], [place] [address] February, [facility] [address] [id number] [address] [place] [address], [place] [address] February, [facility] [address] [id number] [address] [place] [address], [place] [address] February, [facility] [address] [id number] [address] [place] [address], [place] [address] February, [facility] [address] [id number] [address] [place] [address], [place] [address] February, [facility] [address] [id number] [address] [place] [address], [place] [address] February, [facility] [address] [id number] [address] [place] [address], [place] [address] February, [facility] [address] [id number] [address] [place] [address], [place] [address] February, [facility] [address] [id number] [address] [place] [address], [place] [address] February, [facility] [address] [id number] [address] [place] [address], [place] [address] Jan, [facility] [address] [id number] [address] [place] [address], [place] [address] Jan, [facility] [address] [id number] [address] [place] [address], [place] [address] Dec, [facility] [address] [id number] [address] [place] [address], [place] [address] Dec, [facility] [address] [id number] [address] [place] [address], [place] [address] Dec, [facility] [address] [id number] [address] [place] [address], [place] [address] Dec, [facility] [address] [id number] [address] [place] [address], [place] [address] Dec, [facility] [address] [id number] [address] [place] [address], [place] [address] Dec, [facility] [address] [id number] [address] [place] [address], [place] [address] Dec, [facility] [address] [id number] [address] [place] [address], [place] [address] Dec, [facility] [address] [id number] [address] [place] [address], [place] [address] Dec, [facility] [address] [id number] [address] [place] [address], [place] [address] Dec, [facility] [address] [id number] [address] [place] [address], [place] [address] Dec, [facility] [address] [id number] [address] [place] [address], [place] [address] Dec, [facility] [address] [id number] [address] [place] [address], [place] [address] Dec, [facility] [address] [id number] [address] [place] [address], [place] [address] Dec, [facility] [address] [id number] [address] [place] [address], [place] [address] Nov, [facility] [address] [id number] [address] [place] [address], [place] [address] Nov, [facility] [address] [id number] [address] [place] [address], [place] [address] Nov, [facility] [address] [id number] [address] [place] [address], [place] [address] Nov, [facility] [address] [id number] [address] [place] [address], [place] [address] Nov, [facility] [address] [id number] [address] [place] [address], [place] [address] Nov, [facility] [address] [id number] [address] [place] [address], [place] [address] Oct, [facility] [address] [id number] [address] [place] [address], [place] [address] Oct, [facility] [address] [id number] [address] [place] [address], [place] [address] Oct, [facility] [address] [id number] [address] [place] [address], [place] [address] Oct, [facility] [address] [id number] [address] [place] [address], [place] [address] Oct, [facility] [address] [id number] [address] [place] [address], [place] [address] Oct, [facility] [address] [id number] [address] [place] [address], [place] [address] Sep, [facility] [address] [id number] [address] [place] [address], [place] [address] Sep, [facility] [address] [id number] [address] [place] [address], [place] [address] Sep, [facility] [address] [id number] [address] [place] [address], [place] [address] Sep, [facility] [address] [id number] [address] [place] [address], [place] [address] Sep, [facility] [address] [id number] [address] [place] [address], [place] [address] Sep, [facility] [address] [id number] [address] [place] [address], [place] [address] Aug, [facility] [address] [id number] [address] [place] [address], [place] [address] Aug, [facility] [address] [id number] [address] [place] [address], [place] [address] Aug, [facility] [address] [id number] [address] [place] [address], [place] [address] Aug, [facility] [address] [id number] [address] [place] [address], [place] [address] Aug, [facility] [address] [id number] [address] [place] [address], [place] [address] Aug, [facility] [address] [id number] [address] [place] [address], [place] [address] Jul, [facility] [address] [id number] [address] [place] [address], [place] [address] Jul, [facility] [address] [id number] [address] [place] [address], [place] [address] Jul, [facility] [address] [id number] [address] [place] [address], [place] [address] Jul, [facility] [address] [id number] [address] [place] [address], [place] [address] Jul, [facility] [address] [id number] [address] [place] [address], [place] [address] Jul, [facility] [address] [id number] [address] [place] [address], [place] [address] Jul, [facility] [address] [id number] [address] [place] [address], [place] [address] Jul, [facility] [address] [id number] [address] [place] [address], [place] [address] Jul, [facility] [address] [id number] [address] [place] [address], [place] [address] Jul, [facility] [address] [id number] [address] [place] [address], [place] [address] Jul, [facility] [address] [id number] [address] [place] [address], [place] [address] Jun, [facility] [address] [id number] [address] [place] [address], [place] [address] Jun, [facility] [address] [id number] [address] [place] [id number] Jun, [facility] [address] [id number] [address] [place] [id number] Jun, [facility] [address] [id number] [address] [place] [phone] Apr, [facility] [address] [id number] [address] [place] [id number] Apr, [facility] [address] [id number] [address] [place] [id number] Apr, [facility] [address] [id number] [address] [place] [phone] Apr, [facility] [address] [id number] [address] [place] [id number] Mar, [facility] [address] [id number] [address] [place] [id number] Mar, [facility] [address] [id number] [address] [place] [id number] Mar, [facility] [address] [id number] [address] [place] [phone] Mar, [facility] [address] [id number] [address] [place] [id number] Mar, [facility] [address] [id number] [address] [place] [phone] Sep, [facility] [address] [id number] [address] [place] [phone] Sep, [facility] [address] [id number] [address] [place] [id number] Aug, IMMUNIZATIONS No Known Immunizations SOCIAL HISTORY [...]
--- OUTSIDE RECORDS SUMMARY | 2020-04-01 19:30 | XMS REPORT ---
Author Author Josephine WILLIS Organization [facility] Address [address] [place] [address] Care Team Providers Care Brand Strategy Manager Name Role Phone OLYA WILLIS Unavailable PROBLEMS Type Condition ICD9-CM Code EBI88-JB Code Onset Dates Condition S tatus SNOMED Code Problem Diabetes mellitus E11.9 Active 73 004563 Problem Hypertension I10 Active 2707084 3 Problem Paresthesias R20.2 Active 4008137 4 Problem Chronic kidney disease N18.9 Active 013047242 Problem Venous insufficiency I87.2 Active 49986084 Problem Diabetic polyneuropathy associated with type 2 d iabetes mellitus E11.42 Active 93261706 Problem Type 2 diabetes mellitus with diabetic autonomic (poly)neuropathy E11.43 Active 994076584 Problem Chronic skin ulcer with fat layer exposed L98.492 Active 23556287 Problem Chronic osteomyelitis of right foot with draining sinus M86.471 Active [id number] Problem PAD (peripheral artery disease) I73.9 Active 241666689 Problem Gastroparesis K31.84 Active 143132 006 Problem Seasonal allergic rhinitis due to other allergic trigger J30.89 Active 348672177 Problem GERD (gastroesophageal reflux disease) K21.9 Active 919300119 Problem Type 2 diabetes mellitus with foot ulcer E11.621 Active 70623377428333 Problem 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 Active 421359069 Problem Pressure ulcer of unspecified heel, stage 4 L89.60 4 Active 859601318 Problem Unsteady gait R26.81 Active 845128 08 ALLERGIES No Information ENCOUNTERS Encounter Location Date Diagnosis [facility] [address] [facility] [id number] [address] [place] [phone] Apr, [facility] [address] [facility] [id number] [address] [place] [id number] Apr, Foot callus L84 and Nonheali ng wound of heel S91.309A [facility] [address] [id number] [address] [place] [id number] Apr, [address] [phone] Mar, [facility] [address] [id number] [address] [place] [id number] Mar, Diabetes mellitus E11.9 and Chronic skin ulcer with fat layer exposed L98.492 [facility] [address] [id number] [address] [place] [id number] Mar, Chronic skin ulcer with fat layer exposed L98.492 [facility] [address] [id number] [address] [place] [id number] Mar, [facility] [address] [id number] [address] [place] [phone] February, Chronic skin ulcer with fat layer exposed L98.492 and Encounter for medication monitoring Z51.81 [facility] [address] [id number] [address] [place] [id number] February, [facility] [address] [id number] [address] [place] [phone] February, Encounter for medication mon itoring Z51.81 [facility] [address] [id number] [address] [place] [id number] February, [facility] [address] [id number] [address] [place] [id number] February, [facility] [address] [id number] [address] [place] [id number] February, [facility] [address] [id number] [address] [place] [phone] Jan, Chronic skin ulcer with fat layer exposed L98.492 [facility] [address] [id number] [address] [place] [id number] Jan, [facility] [address] [id number] [address] [place] [id number] Dec, [facility] [address] [id number] [address] [place] [id number] Dec, Diabetic polyneuropathy asso ciated with type 2 diabetes mellitus E11.42 and PAD (peripheral artery disease) I73.9 [facility] [address] [id number] [address] [place] [id number] Dec, Chronic skin ulcer with fat layer exposed L98.492 [facility] [address] [id number] [address] [place] [id number] Dec, [facility] [address] [id number] [address] [place] [id number] Nov, [facility] [address] [id number] [address] [place] [id number] Nov, Skin ulcer of right foot wit h fat layer exposed L97.512 [facility] [address] [id number] [address] [place] [id number] Oct, [facility] [address] [id number] [address] [place] [id number] Oct, Skin ulcer of right foot wit h fat layer exposed L97.512 [facility] [address] [id number] [address] [place] [phone] Sep, Diabetes mellitus E11.9 [facility] [address] [id number] [address] [place] [id number] Sep, [facility] [address] [id number] [address] [place] [id number] Sep, [facility] [address] [id number] [address] [place] [id number] Sep, [facility] [address] [id number] [address] [place] [phone] Sep, Type 2 diabetes mellitus wit h foot ulcer E11.621 and Skin ulcer of right foot with fat layer exposed L97.512 [facility] [address] [id number] [address] [place] [phone] Sep, Diabetes mellitus E11.9 [facility] [address] [id number] [address] [place] [id number] Sep, [facility] [address] [id number] [address] [place] [phone] Aug, [facility] [address] [id number] [address] [place] [phone] Aug, [facility] [address] [id number] [address] [place] [id number] Aug, 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 [facility] [address] [id number] [address] [place] [id number] Aug, [facility] [address] [id number] [address] [place] [phone] Aug, [facility] [address] [id number] [address] [place] [phone] Aug, Bronchitis J40 [facility] [address] [id number] [address] [place] [phone] Aug, [facility] [address] [id number] [address] [place] [id number] Jul, [facility] [address] [id number] [address] [place] [id number] Jul, Chronic skin ulcer with fat layer exposed L98.492 [facility] [address] [id number] [address] [place] [phone] Jul, 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 [facility] [address] [id number] [address] [place] [phone] Jun, [facility] [address] [id number] [address] [place] [phone] Jun, [place] [address] [place] [id number] [address] [place] [id number] May, [place] [id number] [place] [id number] May, Chronic skin ulcer with fat layer exposed L98.492 [place] [address] [place] [id number] [address] [place] [phone] Apr, [place] [address] [place] [id number] [address] [place] [id number] Apr, Type 2 diabetes mellitus wit h foot ulcer E11.621 and Unsteady gait R26.81 [place] [address] [place] [id number] [address] [place] [phone] Mar, Decubitus ulcer of right mariana l, stage 3 L89.613 [place] [address] [place] [id number] [address] [place] [phone] Mar, [place] [address] [place] [id number] [address] [place] [phone] Mar, Pressure ulcer of unspecifie d heel, stage 4 L89.604 and Type 2 diabetes mellitus with foot ulcer E11.621 [place] [id number] [place] [id number] Mar, Encounter for medication mon itoring Z51.81 [place] [address] [place] [id number] [address] [place] [phone] Mar, Type 2 diabetes mellitus wit h foot ulcer E11.621 and Non-pressure chronic ulcer of right heel and midfoot with unspecified severity L97.419 [place] [id number] [place] [address] February, [place] [address] [place] [id number] [address] [place] [id number] Jan, Right ankle pain M25.571 [place] [address] [facility] [id number] [address] [place] [phone] Dec, Right ankle pain M25.571 [facility] [address] [facility] [id number] [address] [place] [id number] Dec, [facility] [address] [facility] [id number] [address] [place] [id number] Dec, [facility] [address] [place] [id number] [address] [place] [id number] Dec, Right ankle pain M25.571 [facility] [address] [facility] [id number] [address] [place] [id number] Dec, Chronic skin ulcer with fat layer exposed L98.492 ; Type 2 diabetes mellitus with diabetic autonomic (poly)neuropathy E11.43 and Hypertension I10 [facility] [address] [place] [id number] [address] [place] [id number] Nov, [facility] [address] [place] [id number] [address] [place] [phone] Nov, [facility] [address] [place] [id number] [address] [place] [id number] Nov, [facility] [address] [place] [id number] [address] [place] [id number] Nov, Right ankle pain M25.571 and Chronic osteomyelitis of right foot with draining sinus M86.471 [facility] [address] [place] [id number] [address] [place] [id number] Oct, Right ankle pain M25.571 [facility] [address] [place] [id number] [address] [place] [phone] Oct, [facility] [address] [place] [id number] [address] [place] [id number] Sep, Diabetes mellitus E11.9 [facility] [address] [place] [id number] [address] [place] [id number] Sep, Diabetic polyneuropathy asso ciated with type 2 diabetes mellitus E11.42 and Venous insufficiency I87.2 [facility] [address] [id number] [address] [place] [id number] Sep, Right ankle pain M25.571 [facility] [address] [id number] [address] [place] [id number] Aug, Right ankle pain M25.571 [facility] [address] [id number] [address] [place] [id number] Aug, Chronic osteomyelitis of rig ht foot with draining sinus M86.471 [facility] [address] [id number] [address] [place] [phone] Aug, [facility] [address] [id number] [address] [place] [id number] Aug, [facility] [address] [id number] [address] [place] [id number] Aug, Chronic osteomyelitis of rig ht foot with draining sinus M86.471 [facility] [address] [id number] [address] [place] [id number] Jul, [facility] [address] [id number] [address] [place] [id number] Jul, [facility] [address] [id number] [address] [place] [id number] Jul, Chronic kidney disease N18.9 [facility] [address] [id number] [address] [place] [id number] Jul, Right ankle pain M25.571 [facility] [address] [id number] [address] [place] [id number] Jul, Non-healing ulcer of right f oot, unspecified ulcer stage L97.519 [facility] [address] [id number] [address] [place] [phone] Jul, Chronic skin ulcer with fat layer exposed L98.492 [facility] [address] [id number] [address] [place] [id number] 09 Jul, 2017 Deformity of right ankle nitza nt M21.961 [facility] [address] [facility] [id number] [address] [place] [id number] 27 Jun, 2017 [facility] [address] [facility] [id number] [address] [place] [id number] 21 Jun, 2017 Diabetes mellitus E11.9 ; Sk in ulcer of right foot with fat layer exposed L97.512 and Encounter for immunization Z23 [facility] [address] [facility] [id number] [address] [place] [id number] 18 Jun, 2017 Right ankle pain M25.571 [place] [address] [facility] [id number] [address] [place] [id number] May, Right ankle pain M25.571 [place] [address] [place] [id number] [address] [place] [id number] Apr, Right ankle pain M25.571 [facility] [address] [facility] [id number] [address] [place] [id number] Mar, Right ankle pain M25.571 [facility] [address] [facility] [id number] [address] [place] [phone] Mar, [facility] [address] [place] [id number] [address] [place] [id number] February, Diabetes mellitus E11.9 and Diabetic polyneuropathy associated with type 2 diabetes mellitus E11.42 [facility] [address] [facility] [id number] [address] [place] [id number] February, Hyperkalemia E87.5 [facility] [address] [place] [id number] [address] [place] [id number] February, Right ankle pain M25.571 [facility] [address] [facility] [id number] [address] [place] [phone] Jan, Right ankle pain M25.571 [facility] [address] [facility] [id number] [address] [place] [id number] Dec, Right ankle pain M25.571 [facility] [address] [place] [id number] [place] [phone] Dec, Right ankle pain M25.571 [facility] [address] [facility] [id number] [address] [place] [id number] Nov, [facility] [address] [place] [id number] [place] [id number] Nov, Diabetes mellitus E11.9 ; Hy pertension I10 ; Gastroparesis K31.84 and Type 2 diabetes mellitus with diabetic autonomic (poly)neuropathy E11.43 [facility] [address] [place] [id number] [place] [phone] Nov, Right ankle pain M25.571 [facility] [address] [address] Oct, Right ankle pain M25.571 [facility] [address] [place] [id number] [address] [place] [id number] Oct, [facility] [address] [place] [id number] [place] [id number] Oct, [facility] [address] [place] [id number] [address] [place] [phone] Sep, [facility] [address] [place] [id number] [place] [id number] Sep, Hypertension I10 [facility] [address] [facility] [id number] [address] [place] [phone] Sep, Chronic kidney disease N18.9 ; Right ankle pain M25.571 and GERD (gastroesophageal reflux disease) K21.9 [facility] [address] [facility] [id number] [address] [place] [id number] Jul, [facility] [address] [place] [id number] [place] [phone] Jul, Encounter for immunization Z 23 ; Venous insufficiency I87.2 and Diabetic polyneuropathy associated with type 2 diabetes mellitus E11.42 [facility] [address] [id number] [address] [place] [id number] Jul, [facility] [address] [id number] [address] [place] [id number] Jul, Diabetes mellitus E11.9 [facility] [address] [id number] [address] [place] [phone] May, [facility] [address] [id number] [address] [place] [id number] Apr, [facility] [address] [id number] [address] [place] [id number] Mar, Right ankle pain M25.571 [facility] [address] [id number] [address] [place] [id number] Mar, [facility] [address] [id number] [address] [place] [phone] February, Paresthesias R20.2 [facility] [address] [id number] [address] [place] [phone] February, [facility] [address] [facility] [id number] [address] [place] [id number] February, 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 [facility] [address] [id number] [address] [place] [id number] February, Diabetes mellitus E11.9 [facility] [address] [id number] [address] [place] [id number] February, [facility] [address] [facility] [id number] [address] [place] [id number] February, Polyneuropathy in diabetes 3 57.2 and Paresthesias R20.2 [facility] [address] [id number] [address] [place] [id number] February, [facility] [address] [facility] [id number] [address] [place] [phone] February, [facility] [address] [facility] [id number] [address] [place] [phone] February, [facility] [address] [facility] [id number] [address] [place] [phone] February, Diabetes mellitus E11.9 [facility] [address] [facility] [id number] [address] [place] [phone] February, [facility] [address] [facility] [id number] [address] [place] [id number] February, Hyperkalemia E87.5 [facility] [address] [facility] [id number] [address] [place] [id number] Jan, Hypertension I10 [facility] [address] [facility] [id number] [place] [id number] Jan, Insomnia G47.00 [facility] [address] [facility] [id number] [address] [place] [id number] Jan, [facility] [address] [place] [id number] [address] [place] [phone] Jan, [facility] [address] [facility] [id number] [address] [place] [id number] Jan, [facility] [address] [facility] [id number] [address] [place] [id number] Dec, Right ankle pain M25.571 [facility] [address] [facility] [id number] [address] [place] [phone] Dec, GERD (gastroesophageal reflu x disease) K21.9 [facility] [address] [facility] [id number] [address] [place] [phone] Dec, Insomnia G47.00 [facility] [address] [facility] [id number] [address] [place] [id number] Dec, Hypertension I10 and Hyperka lemia 276.[address] [place] [address] [facility] [id number] [address] [place] [id number] 10 Dec, 2015 Chronic kidney disease N18.9 [facility] [address] [facility] [id number] [address] [place] [phone] 07 Dec, 2015 [facility] [address] [facility] [id number] [address] [place] [id number] Dec, Hyperkalemia E87.5 [facility] [address] [facility] [id number] [address] [place] [id number] Dec, Chronic kidney disease N18.9 and Right ankle pain M25.571 [facility] [address] [facility] [id number] [address] [place] [id number] 11 Nov, 2015 GERD (gastroesophageal reflu x disease) K21.9 [facility] [address] [facility] [id number] [address] [place] [id number] 03 Nov, 2015 Right ankle pain M25.571 [facility] [address] [facility] [id number] [address] [place] [id number] Nov, Diabetes mellitus E11.9 [facility] [address] [facility] [id number] [address] [place] [phone] Oct, [facility] [address] [facility] [id number] [address] [place] [phone] Oct, [facility] [address] [facility] [id number] [address] [place] [phone] Oct, [facility] [address] [facility] [id number] [address] [place] [id number] Oct, Hyperkalemia E87.5 [facility] [address] [facility] [id number] [address] [place] [phone] Oct, [facility] [address] [facility] [id number] [address] [place] [id number] Oct, Hyperkalemia E87.5 [facility] [address] [facility] [id number] [address] [place] [phone] Sep, [facility] [address] [id number] [address] [place] [id number] Sep, [facility] [address] [id number] [address] [place] [phone] Sep, [facility] [address] [id number] [address] [place] [id number] Sep, [facility] [address] [id number] [address] [place] [id number] Sep, Right ankle pain M25.571 [facility] [address] [id number] [address] [place] [id number] Aug, Chronic kidney disease N18.9 [facility] [address] [facility] [id number] [address] [place] [id number] Aug, [facility] [address] [id number] [address] [place] [phone] Aug, Hyperkalemia E87.5 [facility] [address] [facility] [id number] [address] [place] [id number] Aug, [facility] [address] [facility] [id number] [address] [place] [id number] Jul, [facility] [address] [id number] [address] [place] [id number] Jul, [facility] [address] [facility] [id number] [address] [place] [id number] Jul, [facility] [address] [facility] [id number] [address] [place] [id number] Jul, Diabetes mellitus E11.9 ; En counter for immunization Z23 ; Hypertension I10 and Hyperkalemia E87.5 [facility] [address] [facility] [id number] [address] [place] [phone] Jul, [facility] [address] [id number] [address] [place] [address] [place] [id number] Jul, Hyperkalemia E87.5 [facility] [address] [id number] [address] [place] [address], [place] [address] Jul, Hyperkalemia E87.5 [facility] [address] [id number] [address] [place] [address], [place] [address] Jun, [facility] [address] [id number] [address] [place] [address], [place] [address] Jun, [facility] [address] [id number] [address] [place] [address], [place] [address] Jun, [facility] [address] [id number] [address] [place] [address], [place] [address] Jun, [facility] [address] [id number] [address] [place] [address], [place] [address] May, [facility] [address] [id number] [address] [place] [phone] May, [facility] [address] [id number] [address] [place] [address], [place] [address] May, [facility] [address] [id number] [address] [place] [address] May, Hyperkalemia 276.7 [facility] [address] [id number] [address] [place] [address], [place] [address] May, [facility] [address] [id number] [address] [place] [phone] Apr, Hyperkalemia 276.7 [facility] [address] [id number] [address] [place] [address], [place] [address] Apr, [facility] [address] [id number] [address] [place] [address], [place] [address] Apr, [facility] [address] [id number] [address] [place] [address], [place] [address] Apr, [facility] [address] [id number] [address] [place] [address] Apr, [facility] [address] [id number] [address] [place] [id number] 14 Apr, 2015 Hyperkalemia 276.7 [facility] [address] [id number] [address] [place] [address] Apr, [facility] [address] [id number] [address] [place] [phone] Apr, [facility] [address] [id number] [address] [place] [phone] Mar, [facility] [address] [id number] [address] [place] [address] Mar, Hyperkalemia 276.7 [facility] [address] [id number] [address] [place] [address] Mar, Hyperkalemia 276.7 [facility] [address] [id number] [address] [place] [phone] Mar, [facility] [address] [id number] [address] [place] [phone] Mar, [facility] [address] [id number] [address] [place] [phone] Mar, [facility] [address] [id number] [address] [place] [phone] Mar, [facility] [address] [id number] [address] [place] [address] Mar, Anserine bursitis 726.61 [facility] [address] [id number] [address] [place] [address] Mar, Asthma 493.90 and Hyperkalem ia 276.7 [facility] [address] [id number] [address] [place] [phone] Mar, [facility] [address] [id number] [address] [place] [address], [place] [address] February, [facility] [address] [id number] [address] [place] [address], [place] [address] February, [facility] [address] [id number] [address] [place] [address], [place] [address] February, [facility] [address] [id number] [address] [place] [address], [place] [address] February, [facility] [address] [id number] [address] [place] [address], [place] [address] February, [facility] [address] [id number] [address] [place] [address], [place] [address] February, [facility] [address] [id number] [address] [place] [address], [place] [address] February, [facility] [address] [id number] [address] [place] [address], [place] [address] February, [facility] [address] [id number] [address] [place] [address], [place] [address] February, [facility] [address] [id number] [address] [place] [address], [place] [address] Jan, [facility] [address] [id number] [address] [place] [address], [place] [address] Jan, [facility] [address] [id number] [address] [place] [address], [place] [address] Dec, [facility] [address] [id number] [address] [place] [address], [place] [address] Dec, [facility] [address] [id number] [address] [place] [address], [place] [address] Dec, [facility] [address] [id number] [address] [place] [address], [place] [address] Dec, [facility] [address] [id number] [address] [place] [address], [place] [address] Dec, [facility] [address] [id number] [address] [place] [address], [place] [address] Dec, [facility] [address] [id number] [address] [place] [address], [place] [address] Dec, [facility] [address] [id number] [address] [place] [address], [place] [address] Dec, [facility] [address] [id number] [address] [place] [address], [place] [address] Dec, [facility] [address] [id number] [address] [place] [address], [place] [address] Dec, [facility] [address] [id number] [address] [place] [address], [place] [address] Dec, [facility] [address] [id number] [address] [place] [address], [place] [address] Dec, [facility] [address] [id number] [address] [place] [address], [place] [address] Dec, [facility] [address] [id number] [address] [place] [address], [place] [address] Dec, [facility] [address] [id number] [address] [place] [address], [place] [address] Nov, [facility] [address] [id number] [address] [place] [address], [place] [address] Nov, [facility] [address] [id number] [address] [place] [address], [place] [address] Nov, 2014 [facility] [address] [id number] [address] [place] [address], [place] [address] Nov, [facility] [address] [id number] [address] [place] [address], [place] [address] Nov, [facility] [address] [id number] [address] [place] [address], [place] [address] Nov, [facility] [address] [id number] [address] [place] [address] Oct, [facility] [address] [id number] [address] [place] [address], [place] [address] Oct, [facility] [address] [id number] [address] [place] [address], [place] [address] Oct, [facility] [address] [id number] [address] [place] [address], [place] [address] Oct, [facility] [address] [id number] [address] [place] [address], [place] [address] Oct, [facility] [address] [id number] [address] [place] [address], [place] [address] Oct, [facility] [address] [id number] [address] [place] [address], [place] [address] Sep, [facility] [address] [id number] [address] [place] [address], [place] [address] Sep, [facility] [address] [id number] [address] [place] [address], [place] [address] Sep, [facility] [address] [id number] [address] [place] [address], [place] [address] Sep, [facility] [address] [id number] [address] [place] [address], [place] [address] Sep, [facility] [address] [id number] [address] [place] [address], [place] [address] Sep, [facility] [address] [id number] [address] [place] [address], [place] [address] Aug, [facility] [address] [id number] [address] [place] [address], [place] [address] Aug, [facility] [address] [id number] [address] [place] [address], [place] [address] Aug, [facility] [address] [id number] [address] [place] [address], [place] [address] Aug, [facility] [address] [id number] [address] [place] [address], [place] [address] Aug, [facility] [address] [id number] [address] [place] [address], [place] [address] Aug, [facility] [address] [id number] [address] [place] [address], [place] [address] Jul, [facility] [address] [id number] [address] [place] [address], [place] [address] Jul, [facility] [address] [id number] [address] [place] [address], [place] [address] Jul, [facility] [address] [id number] [address] [place] [address], [place] [address] Jul, [facility] [address] [id number] [address] [place] [address], [place] [address] Jul, [facility] [address] [id number] [address] [place] [address], [place] [address] Jul, [facility] [address] [id number] [address] [place] [address], [place] [address] Jul, [facility] [address] [id number] [address] [place] [address], [place] [address] Jul, [facility] [address] [id number] [address] [place] [address], [place] [address] Jul, [facility] [address] [id number] [address] [place] [address], [place] [address] Jul, [facility] [address] [id number] [address] [place] [address], [place] [address] Jul, [facility] [address] [id number] [address] [place] [address], [place] [address] Jun, [facility] [address] [id number] [address] [place] [address], [place] [address] Jun, [facility] [address] [id number] [address] [place] [address] [address] Jun, [facility] [address] [id number] [address] [place] [address] Jun, [facility] [address] [id number] [address] [place] [address] Apr, [facility] [address] [id number] [address] [place] [address] Apr, [facility] [address] [id number] [address] [place] [address] Apr, [facility] [address] [id number] [address] [place] [address] Apr, [facility] [address] [id number] [address] [place] [address] Mar, [facility] [address] [id number] [address] [place] [address] Mar, [facility] [address] [id number] [address] [place] [address] Mar, [facility] [address] [id number] [address] [place] [phone] Mar, [facility] [address] [id number] [address] [place] [phone] Mar, [facility] [address] [id number] [address] [place] [phone] Sep, [facility] [address] [id number] [address] [place] [phone] Sep, [facility] [address] [id number] [address] [place] [phone] Aug, IMMUNIZATIONS No Known Immunizations SOCIAL HISTORY [...] V C oct 2016 Hospitalization History Pneumonia [place] [facility] 06/2018 Hospitalization History fistula in left arm 07/2018
--- OUTSIDE RECORDS SUMMARY | 2020-04-01 19:31 | XMS REPORT ---
Author Author Josephine Veras Doctor Organization [facility] Address Unknown Phone Unavailable Care Team Providers Care Museum Archivist Name Role Phone Migration, Doctor Unavailable Unavailable PROBLEMS Type Condition ICD9-CM Code KBR23-HB Code Onset Dates Condition S tatus SNOMED Code Problem Diabetes mellitus E11.9 Active 73 662340 Problem Hypertension I10 Active 6361767 3 Problem Paresthesias R20.2 Active 0584303 4 Problem Chronic kidney disease N18.9 Active 879797575 Problem Venous insufficiency I87.2 Active 25292882 Problem Diabetic polyneuropathy associated with type 2 d iabetes mellitus E11.42 Active 89490030 Problem Type 2 diabetes mellitus with diabetic autonomic (poly)neuropathy E11.43 Active 596228451 Problem Chronic skin ulcer with fat layer exposed L98.492 Active 66779086 Problem Chronic osteomyelitis of right foot with draining sinus M86.471 Active [id number] Problem PAD (peripheral artery disease) I73.9 Active 170907943 Problem Gastroparesis K31.84 Active 305675 006 Problem Seasonal allergic rhinitis due to other allergic trigger J30.89 Active 895286362 Problem GERD (gastroesophageal reflux disease) K21.9 Active 504634299 Problem Type 2 diabetes mellitus with foot ulcer E11.621 Active 07213133649260 Problem 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 Active 211286819 Problem Pressure ulcer of unspecified heel, stage 4 L89.60 4 Active 077593817 Problem Unsteady gait R26.81 Active 390235 08 ALLERGIES No Information ENCOUNTERS Encounter Location Date Diagnosis [facility] [address] [facility] [place] [id number] [address] [place] [address] Apr, [facility] [address] [facility] [place] [id number] [address] [place] [address] Apr, Foot callus L84 and Nonheali ng wound of heel S91.309A [facility] [address] [facility] [place] [id number] [address] [place] [address] Apr, [facility] NUBIA NUNES [address] [address] Mar, [facility] [address] [id number] [address] [place] [address] Mar, Diabetes mellitus E11.9 and Chronic skin ulcer with fat layer exposed L98.492 [facility] [address] [id number] [address] [place] [address] Mar, Chronic skin ulcer with fat layer exposed L98.492 [facility] [address] [id number] [address] [place] [address] Mar, [facility] [address] [facility] [place] [id number] [address] [place] [address] February, Chronic skin ulcer with fat layer exposed L98.492 and Encounter for medication monitoring Z51.81 [facility] [address] [id number] [address] [place] [address] February, [facility] [address] [id number] [address] [place] [address] February, Encounter for medication mon itoring Z51.81 [facility] [address] [facility] [place] [id number] [address] [place] [address] February, [facility] [address] [id number] [address] [place] [address] February, [facility] [address] [facility] [place] [id number] [address] [place] [address] February, [facility] [address] [id number] [address] [place] [address] Jan, Chronic skin ulcer with fat layer exposed L98.492 [facility] [address] [facility] [place] [id number] [address] [place] [address] Jan, [facility] [address] [id number] [address] [place] [address] Dec, [facility] [address] [id number] [address] [place] [address] Dec, Diabetic polyneuropathy asso ciated with type 2 diabetes mellitus E11.42 and PAD (peripheral artery disease) I73.9 [facility] [address] [id number] [address] [place] [address] Dec, Chronic skin ulcer with fat layer exposed L98.492 [facility] [address] [id number] [address] [place] [address] Dec, [facility] [address] [id number] [address] [place] [address] Nov, [facility] [address] [id number] [address] [place] [address] Nov, Skin ulcer of right foot wit h fat layer exposed L97.512 [facility] [address] [id number] [address] [place] [address] Oct, [facility] [address] [id number] [address] [place] [address] Oct, Skin ulcer of right foot wit h fat layer exposed L97.512 [facility] [address] [id number] [address] [place] [address] Sep, Diabetes mellitus E11.9 [facility] [address] [id number] [address] [place] [address] Sep, [facility] [address] [id number] [address] [place] [address] Sep, [facility] [address] [id number] [address] [place] [address] Sep, [facility] [address] [facility] [place] [id number] [address] [place] [address] Sep, Type 2 diabetes mellitus wit h foot ulcer E11.621 and Skin ulcer of right foot with fat layer exposed L97.512 [facility] [address] [id number] [address] [place] [address] Sep, Diabetes mellitus E11.9 [facility] [address] [id number] [address] [place] [address] Sep, [facility] [address] [id number] [address] [place] [address] Aug, [facility] [address] [id number] [address] [place] [address] Aug, [facility] [address] [id number] [address] [place] [address] Aug, 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 [facility] [address] [id number] [address] [place] [address] Aug, [facility] [address] [id number] [address] [place] [address] Aug, [facility] [address] [id number] [address] [place] [address] Aug, Bronchitis J40 [facility] [address] [id number] [address] [place] [address] Aug, [facility] [address] [facility] [place] [id number] [address] [place] [address] Jul, [facility] [address] [id number] [address] [place] [address] Jul, Chronic skin ulcer with fat layer exposed L98.492 [facility] [address] [id number] [address] [place] [address] Jul, 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 [facility] [address] [id number] [address] [place] [address] Jun, [facility] [address] [id number] [address] [place] [address] Jun, [facility] [id number] [place] [address] May, [facility] [address] [place] [id number] [address] [place] [address] May, Chronic skin ulcer with fat layer exposed L98.492 [facility] [address] [place] [id number] [address] [place] [address] Apr, [facility] [address] [address] Apr, Type 2 diabetes mellitus wit h foot ulcer E11.621 and Unsteady gait R26.81 [facility] [facility] [address] [address] Mar, Decubitus ulcer of right mariana l, stage 3 L89.613 [facility] [address] [address] Mar, [facility] [facility] [address] [address] Mar, Pressure ulcer of unspecifie d heel, stage 4 L89.604 and Type 2 diabetes mellitus with foot ulcer E11.621 [facility] [facility] [address] [address] Mar, Encounter for medication mon itoring Z51.81 [facility] [id number] [place] [address] Mar, Type 2 diabetes mellitus wit h foot ulcer E11.621 and Non-pressure chronic ulcer of right heel and midfoot with unspecified severity L97.419 [facility] [id number] [place] [address] February, [facility] [address] [address] Jan, Right ankle pain M25.571 [facility] [facility] [address] [place] [id number] [address] [place] [address] Dec, Right ankle pain M25.571 [facility] [address] [facility] [place] [id number] [address] [place] [address] Dec, [facility] [address] [facility] [place] [id number] [address] [place] [address] Dec, [facility] [address] [place] [id number] [address] [place] [address] Dec, Right ankle pain M25.571 [facility] [address] [facility] [place] [id number] [address] [place] [address] Dec, Chronic skin ulcer with fat layer exposed L98.492 ; Type 2 diabetes mellitus with diabetic autonomic (poly)neuropathy E11.43 and Hypertension I10 [facility] [address] [facility] [place] [id number] [address] [place] [address] Nov, [facility] [address] [place] [id number] [address] [place] [address] Nov, [facility] [address] [facility] [place] [id number] [address] [place] [address] Nov, [facility] [address] [place] [id number] [address] [place] [address] Nov, Right ankle pain M25.571 and Chronic osteomyelitis of right foot with draining sinus M86.471 [facility] [address] [place] [id number] [address] [place] [address] Oct, Right ankle pain M25.571 [facility] [address] [facility] [place] [id number] [address] [place] [address] Oct, [facility] [address] [place] [id number] [address] [place] [address] Sep, Diabetes mellitus E11.9 [facility] [address] [place] [id number] [address] [place] [address] Sep, Diabetic polyneuropathy asso ciated with type 2 diabetes mellitus E11.42 and Venous insufficiency I87.2 [facility] [address] [place] [id number] [address] [place] [address] Sep, Right ankle pain M25.571 [facility] [address] [id number] [address] [place] [address] Aug, Right ankle pain M25.571 [facility] [address] [id number] [address] [place] [address] Aug, Chronic osteomyelitis of rig foot with draining sinus M86.471 [facility] [address] [id number] [address] [place] [address] Aug, [facility] [address] [id number] [address] [place] [address] Aug, [facility] [address] [id number] [address] [place] [address] Aug, Chronic osteomyelitis of rig foot with draining sinus M86.471 [facility] [address] [id number] [address] [place] [address] Jul, [facility] [address] [id number] [address] [place] [address] Jul, [facility] [address] [id number] [address] [place] [address] Jul, Chronic kidney disease N18.9 [facility] [address] [id number] [address] [place] [address] Jul, Right ankle pain M25.571 [facility] [address] [id number] [address] [place] [address] Jul, Non-healing ulcer of right f oot, unspecified ulcer stage L97.519 [facility] [address] [id number] [address] [place] [address] Jul, Chronic skin ulcer with fat layer exposed L98.492 [facility] [address] [facility] [place] [id number] [address] [place] [address] Jul, Deformity of right ankle nitza nt M21.961 [facility] [address] [id number] [address] [place] [address] 27 Jun, 2017 [facility] [address] [id number] [address] [place] [address] 21 Jun, 2017 Diabetes mellitus E11.9 ; Sk in ulcer of right foot with fat layer exposed L97.512 and Encounter for immunization Z23 [facility] [address] [id number] [address] [place] [address] 18 Jun, 2017 Right ankle pain M25.571 [facility] [address] [id number] [address] [place] [address] 18 May, 2017 Right ankle pain M25.571 [place] [address] [facility] [place] [id number] [address] [place] [address] Apr, Right ankle pain M25.571 [place] [address] [facility] [place] [id number] [address] [place] [address] Mar, Right ankle pain M25.571 [facility] [address] [id number] [address] [place] [address] Mar, [place] [address] [facility] [place] [id number] [address] [place] [address] February, Diabetes mellitus E11.9 and Diabetic polyneuropathy associated with type 2 diabetes mellitus E11.42 [place] [address] [facility] [place] [id number] [address] [place] [address] February, Hyperkalemia E87.5 [facility] [address] [id number] [address] [place] [address] February, Right ankle pain M25.571 [facility] [address] [facility] [place] [id number] [address] [place] [address] Jan, Right ankle pain M25.571 [facility] [address] [facility] [place] [id number] [address] [place] [address] Dec, Right ankle pain M25.571 [facility] [address] [id number] [address] [place] [address] Dec, Right ankle pain M25.571 [facility] [address] [id number] [address] [place] [address] Nov, [facility] [address] [facility] [place] [id number] [address] [place] [address] Nov, Diabetes mellitus E11.9 ; Hy pertension I10 ; Gastroparesis K31.84 and Type 2 diabetes mellitus with diabetic autonomic (poly)neuropathy E11.43 [facility] [address] [id number] [address] [place] [address] Nov, Right ankle pain M25.571 [facility] [address] [facility] [place] [id number] [address] [place] [address] Oct, Right ankle pain M25.571 [facility] [address] [facility] [place] [id number] [address] [place] [address] Oct, [facility] [address] [facility] [place] [id number] [address] [place] [address] Oct, [facility] [address] [facility] [place] [id number] [address] [place] [address] Sep, [facility] [address] [facility] [place] [id number] [address] [place] [address] Sep, Hypertension I10 [facility] [address] [facility] [place] [id number] [address] [place] [address] Sep, Chronic kidney disease N18.9 ; Right ankle pain M25.571 and GERD (gastroesophageal reflux disease) K21.9 [facility] [address] [facility] [place] [id number] [address] [place] [address] Jul, [facility] [address] [facility] [place] [id number] [address] [place] [address] Jul, Encounter for immunization Z 23 ; Venous insufficiency I87.2 and Diabetic polyneuropathy associated with type 2 diabetes mellitus E11.42 [facility] [address] [id number] [address] [place] [address] Jul, [facility] [address] [id number] [address] [place] [address] Jul, Diabetes mellitus E11.9 [facility] [address] [id number] [address] [place] [address] May, [facility] [address] [id number] [address] [place] [address] Apr, [facility] [address] [id number] [address] [place] [address] Mar, Right ankle pain M25.571 [facility] [address] [id number] [address] [place] [address] Mar, [facility] [address] [id number] [address] [place] [address] February, Paresthesias R20.2 [facility] [address] [id number] [address] [place] [address] February, [facility] [address] [id number] [address] [place] [address] February, 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 [facility] [address] [id number] [address] [place] [address] February, Diabetes mellitus E11.9 [facility] [address] [id number] [address] [place] [address] February, [facility] [address] [id number] [address] [place] [address] February, Polyneuropathy in diabetes 3 57.2 and Paresthesias R20.2 [facility] [address] [id number] [address] [place] [address] February, [facility] [address] [id number] [address] [place] [address] February, [facility] [address] [facility] [place] [id number] [address] [place] [address] February, [facility] [address] [facility] [place] [id number] [address] [place] [address] February, Diabetes mellitus E11.9 [facility] [address] [facility] [place] [id number] [address] [place] [address] February, [facility] [address] [facility] [place] [id number] [address] [place] [address] February, Hyperkalemia E87.5 [facility] [address] [facility] [place] [id number] [address] [place] [address] Jan, Hypertension I10 [facility] [address] [facility] [place] [id number] [address] [place] [address] Jan, Insomnia G47.00 [facility] [address] [facility] [place] [id number] [address] [place] [address] Jan, [facility] [address] [facility] [place] [id number] [address] [place] [address] Jan, [facility] [address] [facility] [place] [id number] [address] [place] [address] Jan, [facility] [address] [facility] [place] [id number] [address] [place] [address] Dec, Right ankle pain M25.571 [facility] [address] [facility] [place] [id number] [address] [place] [address] Dec, GERD (gastroesophageal reflu x disease) K21.9 [facility] [address] [facility] [place] [id number] [address] [place] [phone] Dec, Insomnia G47.00 [facility] [address] [facility] [place] [id number] [address] [place] [id number] Dec, Hypertension I10 and Hyperka lemia 276.7 [facility] [address] [facility] [place] [id number] [address] [place] [id number] Dec, Chronic kidney disease N18.9 [facility] [address] [facility] [place] [id number] [address] [place] [phone] Dec, [facility] [address] [facility] [place] [id number] [address] [place] [id number] Dec, Hyperkalemia E87.5 [facility] [address] [facility] [place] [id number] [address] [place] [id number] Dec, Chronic kidney disease N18.9 and Right ankle pain M25.571 [facility] [address] [id number] [address] [place] [phone] Nov, GERD (gastroesophageal reflu x disease) K21.9 [facility] [address] [facility] [place] [id number] [address] [place] [id number] Nov, Right ankle pain M25.571 [facility] [address] [facility] [place] [id number] [address] [place] [phone] Nov, Diabetes mellitus E11.9 [facility] [address] [facility] [place] [id number] [address] [place] [phone] Oct, [facility] [address] [facility] [place] [id number] [address] [place] [phone] Oct, [facility] [address] [facility] [place] [id number] [address] [place] [id number] Oct, [facility] [address] [facility] [place] [id number] [address] [place] [phone] Oct, Hyperkalemia E87.5 [facility] [address] [facility] [place] [id number] [address] [place] [id number] Oct, [facility] [address] [facility] [place] [id number] [address] [place] [id number] Oct, Hyperkalemia E87.5 [facility] [address] [facility] [place] [id number] [address] [place] [id number] Sep, [facility] [address] [id number] [address] [place] [id number] 14 Sep, 2015 [facility] [address] [id number] [address] [place] [phone] Sep, [facility] [address] [id number] [address] [place] [phone] Sep, [facility] [address] [id number] [address] [place] [id number] Sep, Right ankle pain M25.571 [facility] [address] [id number] [address] [place] [id number] Aug, Chronic kidney disease N18.9 [facility] [address] [id number] [address] [place] [address] Aug, [facility] [address] [facility] [place] [id number] [address] [place] [address] Aug, Hyperkalemia E87.5 [facility] [address] [id number] [address] [place] [address] Aug, [facility] [address] [id number] [address] [place] [address] Jul, [facility] [address] [facility] [facility] [place] [id number] [address] [place] [address] Jul, [facility] [address] [facility] [facility] [place] [id number] [address] [place] [address] Jul, [facility] [address] [facility] [place] [id number] [address] [place] [address] Jul, Diabetes mellitus E11.9 ; En counter for immunization Z23 ; Hypertension I10 and Hyperkalemia E87.5 [facility] [address] [id number] [address] [place] [address] Jul, [facility] [address] [facility] [facility] [place] [id number] [address] [place] [address] Jul, Hyperkalemia E87.5 [facility] [address] [id number] [address] [place] [address], [place] [address] Jul, Hyperkalemia E87.5 [facility] [address] [id number] [address] [place] [address], [place] [address] Jun, [facility] [address] [id number] [address] [place] [address], [place] [address] Jun, [facility] [address] [id number] [address] [place] [address], [place] [address] Jun, [facility] [address] [id number] [address] [place] [address], [place] [address] Jun, [facility] [address] [id number] [address] [place] [address], [place] [address] May, [facility] [address] [id number] [address] [place] [address], [place] [address] May, [facility] [address] [id number] [address] [place] [address], [place] [address] May, [facility] [address] [id number] [address] [place] [address], [place] [address] May, Hyperkalemia 276.7 [facility] [address] [id number] [address] [place] [address], [place] [address] May, [facility] [address] [id number] [address] [place] [address], [place] [address] Apr, Hyperkalemia 276.7 [facility] [address] [id number] [address] [place] [address], [place] [address] Apr, [facility] [address] [id number] [address] [place] [address], [place] [address] Apr, [facility] [address] [id number] [address] [place] [address], [place] [address] Apr, [facility] [address] [id number] [address] [place] [address], [place] [address] Apr, [facility] [address] [id number] [address] [place] [address] Apr, Hyperkalemia 276.7 [facility] [address] [id number] [address] [place] [address] Apr, [facility] [address] [id number] [address] [place] [address] Apr, [facility] [address] [id number] [address] [place] [address] Mar, [facility] [address] [id number] [address] [place] [address] Mar, Hyperkalemia 276.7 [facility] [address] [id number] [address] [place] [address] Mar, Hyperkalemia 276.7 [facility] [address] [id number] [address] [place] [address] Mar, [facility] [address] [id number] [address] [place] [address] Mar, [facility] [address] [id number] [address] [place] [address] Mar, [facility] [address] [id number] [address] [place] [address] Mar, [facility] [address] [id number] [address] [place] [address] Mar, Anserine bursitis 726.61 [facility] [address] [id number] [address] [place] [address] Mar, Asthma 493.90 and Hyperkalem ia 276.7 [facility] [address] [id number] [address] [place] [address] Mar, [facility] [address] [id number] [address] [place] [address] February, [facility] [address] [id number] [address] [place] [address], [place] [address] February, [facility] [address] [id number] [address] [place] [address], [place] [address] February, [facility] [address] [id number] [address] [place] [address], [place] [address] February, [facility] [address] [id number] [address] [place] [address], [place] [address] February, [facility] [address] [id number] [address] [place] [address], [place] [address] February, [facility] [address] [id number] [address] [place] [address], [place] [address] February, [facility] [address] [id number] [address] [place] [address], [place] [address] February, [facility] [address] [id number] [address] [place] [address], [place] [address] February, [facility] [address] [id number] [address] [place] [address], [place] [address] Jan, [facility] [address] [id number] [address] [place] [address], [place] [address] Jan, [facility] [address] [id number] [address] [place] [address], [place] [address] Dec, [facility] [address] [id number] [address] [place] [address], [place] [address] Dec, [facility] [address] [id number] [address] [place] [address], [place] [address] Dec, [facility] [address] [id number] [address] [place] [address], [place] [address] Dec, [facility] [address] [id number] [address] [place] [address], [place] [address] Dec, [facility] [address] [id number] [address] [place] [address], [place] [address] Dec, [facility] [address] [id number] [address] [place] [address], [place] [address] Dec, [facility] [address] [id number] [address] [place] [address], [place] [address] Dec, [facility] [address] [id number] [address] [place] [address], [place] [address] Dec, [facility] [address] [id number] [address] [place] [address], [place] [address] Dec, [facility] [address] [id number] [address] [place] [address], [place] [address] Dec, [facility] [address] [id number] [address] [place] [address], [place] [address] Dec, [facility] [address] [id number] [address] [place] [address], [place] [address] Dec, [facility] [address] [id number] [address] [place] [address], [place] [address] Dec, [facility] [address] [id number] [address] [place] [address], [place] [address] Nov, [facility] [address] [id number] [address] [place] [address], [place] [address] Nov, [facility] [address] [id number] [address] [place] [address], [place] [address] Nov, [facility] [address] [id number] [address] [place] [address], [place] [address] Nov, [facility] [address] [id number] [address] [place] [address], [place] [address] Nov, [facility] [address] [id number] [address] [place] [address], [place] [address] Nov, [facility] [address] [id number] [address] [place] [address], [place] [address] Oct, [facility] [address] [id number] [address] [place] [address], [place] [address] Oct, [facility] [address] [id number] [address] [place] [address], [place] [address] Oct, [facility] [address] [id number] [address] [place] [address], [place] [address] Oct, [facility] [address] [id number] [address] [place] [address], [place] [address] Oct, [facility] [address] [id number] [address] [place] [address], [place] [address] Oct, [facility] [address] [id number] [address] [place] [address], [place] [address] Sep, [facility] [address] [id number] [address] [place] [address], [place] [address] Sep, [facility] [address] [id number] [address] [place] [address], [place] [address] Sep, [facility] [address] [id number] [address] [place] [address], [place] [address] Sep, [facility] [address] [id number] [address] [place] [address], [place] [address] Sep, [facility] [address] [id number] [address] [place] [address], [place] [address] 16 Sep, 2014 [facility] [address] [id number] [address] [place] [address], [place] [address] Aug, [facility] [address] [id number] [address] [place] [address], [place] [address] Aug, [facility] [address] [id number] [address] [place] [address], [place] [address] Aug, [facility] [address] [id number] [address] [place] [address], [place] [address] Aug, [facility] [address] [id number] [address] [place] [address], [place] [address] Aug, [facility] [address] [id number] [address] [place] [address], [place] [address] Aug, [facility] [address] [id number] [address] [place] [address], [place] [address] Jul, [facility] [address] [id number] [address] [place] [address], [place] [address] Jul, [facility] [address] [id number] [address] [place] [address], [place] [address] Jul, [facility] [address] [id number] [address] [place] [address], [place] [address] Jul, [facility] [address] [id number] [address] [place] [address], [place] [address] Jul, [facility] [address] [id number] [address] [place] [address], [place] [address] Jul, [facility] [address] [id number] [address] [place] [address], [place] [address] Jul, [facility] [address] [id number] [address] [place] [address], [place] [address] Jul, [facility] [address] [id number] [address] [place] [address] Jul, [facility] [address] [id number] [address] [place] [address] Jul, [facility] [address] [id number] [address] [place] [address] Jul, [facility] [address] [id number] [address] [place] [address], [place] [address] Jun, [facility] [address] [id number] [address] [place] [address], [place] [address] Jun, [facility] [address] [id number] [address] [place] [address] Jun, [facility] [address] [id number] [address] [place] [address] Jun, [facility] [address] [id number] [address] [place] [address] Apr, [facility] [address] [id number] [address] [place] [address] Apr, [facility] [address] [id number] [address] [place] [address] Apr, [facility] [address] [id number] [address] [place] [address] Apr, [facility] [address] [id number] [address] [place] [address] Mar, [facility] [address] [id number] [address] [place] [address] Mar, [facility] [address] [id number] [address] [place] [address] Mar, [facility] [address] [id number] [address] [place] [address] Mar, [facility] [address] [id number] [address] [place] [address] Mar, [facility] [address] [id number] [address] [place] [address] Sep, [facility] [address] [id number] [address] [place] [address] Sep, [facility] [address] [id number] [address] [place] [address] Aug, IMMUNIZATIONS No Known Immunizations SOCIAL HISTORY [...]
--- OUTSIDE RECORDS SUMMARY | 2020-04-01 19:31 | XMS REPORT ---
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 Name Role Phone OLYA WILLIS Unavailable PROBLEMS Type Condition ICD9-CM Code RHT54-GE Code Onset Dates Condition S tatus SNOMED Code Problem Diabetes mellitus E11.9 Active 73 440599 Problem Hypertension I10 Active 2833031 3 Problem Paresthesias R20.2 Active 5234004 4 Problem Chronic kidney disease N18.9 Active 791211144 Problem Venous insufficiency I87.2 Active 58943434 Problem Diabetic polyneuropathy associated with type 2 d iabetes mellitus E11.42 Active 46608003 Problem Type 2 diabetes mellitus with diabetic autonomic (poly)neuropathy E11.43 Active 305418500 Problem Chronic skin ulcer with fat layer exposed L98.492 Active 53518653 Problem Chronic osteomyelitis of right foot with draining sinus M86.471 Active [id number] Problem PAD (peripheral artery disease) I73.9 Active 248694976 Problem Gastroparesis K31.84 Active 758243 006 Problem Seasonal allergic rhinitis due to other allergic trigger J30.89 Active 194027158 Problem GERD (gastroesophageal reflux disease) K21.9 Active 946974393 Problem Type 2 diabetes mellitus with foot ulcer E11.621 Active 16871445333766 Problem 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 Active 206218640 Problem Pressure ulcer of unspecified heel, stage 4 L89.60 4 Active 693230696 Problem Unsteady gait R26.81 Active 068064 08 ALLERGIES No Information ENCOUNTERS Encounter Location Date Diagnosis [facility] [address] [facility] [id number] [address] [place] [id number] Apr, [facility] [address] [facility] [id number] [address] [place] [address] Apr, Foot callus L84 and Nonheali ng wound of heel S91.309A [facility] [address] [id number] [address] [place] [address] Apr, [address] [address] Mar, [facility] [address] [id number] [address] [place] [address] Mar, Diabetes mellitus E11.9 and Chronic skin ulcer with fat layer exposed L98.492 [facility] [address] [id number] [address] [place] [address] Mar, Chronic skin ulcer with fat layer exposed L98.492 [facility] [address] [id number] [address] [place] [address] Mar, [facility] [address] [id number] [address] [place] [address] February, Chronic skin ulcer with fat layer exposed L98.492 and Encounter for medication monitoring Z51.81 [facility] [address] [id number] [address] [place] [address] February, [facility] [address] [id number] [address] [place] [address] February, Encounter for medication mon itoring Z51.81 [facility] [address] [id number] [address] [place] [address] February, [facility] [address] [id number] [address] [place] [id number] February, [facility] [address] [id number] [address] [place] [address] February, [facility] [address] [id number] [address] [place] [address] Jan, Chronic skin ulcer with fat layer exposed L98.492 [facility] [address] [id number] [address] [place] [id number] Jan, [facility] [address] [id number] [address] [place] [address] Dec, [facility] [address] [id number] [address] [place] [address] Dec, Diabetic polyneuropathy asso ciated with type 2 diabetes mellitus E11.42 and PAD (peripheral artery disease) I73.9 [facility] [address] [id number] [address] [place] [address] Dec, Chronic skin ulcer with fat layer exposed L98.492 [facility] [address] [id number] [address] [place] [address] Dec, [facility] [address] [id number] [address] [place] [id number] Nov, [facility] [address] [id number] [address] [place] [address] Nov, Skin ulcer of right foot wit h fat layer exposed L97.512 [facility] [address] [id number] [address] [place] [address] Oct, [facility] [address] [id number] [address] [place] [address] Oct, Skin ulcer of right foot wit h fat layer exposed L97.512 [facility] [address] [id number] [address] [place] [address] Sep, Diabetes mellitus E11.9 [facility] [address] [id number] [address] [place] [id number] Sep, [facility] [address] [id number] [address] [place] [address] Sep, [facility] [address] [id number] [address] [place] [address] Sep, [facility] [address] [id number] [address] [place] [address] Sep, Type 2 diabetes mellitus wit h foot ulcer E11.621 and Skin ulcer of right foot with fat layer exposed L97.512 [facility] [address] [id number] [address] [place] [address] Sep, Diabetes mellitus E11.9 [facility] [address] [id number] [address] [place] [id number] Sep, [facility] [address] [id number] [address] [place] [address] Aug, [facility] [address] [id number] [address] [place] [address] Aug, [facility] [address] [id number] [address] [place] [address] Aug, 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 [facility] [address] [id number] [address] [place] [address] Aug, [facility] [address] [id number] [address] [place] [address] Aug, [facility] [address] [id number] [address] [place] [address] Aug, Bronchitis J40 [facility] [address] [id number] [address] [place] [address] Aug, [facility] [address] [id number] [address] [place] [address] Jul, [facility] [address] [id number] [address] [place] [address] Jul, Chronic skin ulcer with fat layer exposed L98.492 [facility] [address] [id number] [address] [place] [address] Jul, 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 [facility] [address] [id number] [address] [place] [address] Jun, [facility] [address] [id number] [address] [place] [address] Jun, [place] [address] [place] [id number] [address] [place] [address] May, [place] [id number] [place] [address] May, Chronic skin ulcer with fat layer exposed L98.492 [place] [address] [place] [id number] [address] [place] [address] Apr, [place] [address] [place] [id number] [address] [place] [address] Apr, Type 2 diabetes mellitus wit h foot ulcer E11.621 and Unsteady gait R26.81 [place] [address] [place] [id number] [address] [place] [address] Mar, Decubitus ulcer of right mariana l, stage 3 L89.613 [place] [address] [place] [id number] [address] [place] [address] Mar, [place] [address] [place] [id number] [address] [place] [address] Mar, Pressure ulcer of unspecifie d heel, stage 4 L89.604 and Type 2 diabetes mellitus with foot ulcer E11.621 [place] [address] [place] [address] Mar, Encounter for medication mon itoring Z51.81 [place] [address] [place] [id number] [address] [place] [address] Mar, Type 2 diabetes mellitus wit h foot ulcer E11.621 and Non-pressure chronic ulcer of right heel and midfoot with unspecified severity L97.419 [place] [address] [place] [address] February, [place] [address] [place] [id number] [address] [place] [address] Jan, Right ankle pain M25.571 [place] [address] [facility] [id number] [address] [place] [address] Dec, Right ankle pain M25.571 [facility] [address] [facility] [id number] [address] [place] [address] Dec, [facility] [address] [facility] [id number] [address] [place] [address] Dec, [facility] [address] [place] [id number] [address] [place] [address] Dec, Right ankle pain M25.571 [facility] [address] [facility] [id number] [address] [place] [address] Dec, Chronic skin ulcer with fat layer exposed L98.492 ; Type 2 diabetes mellitus with diabetic autonomic (poly)neuropathy E11.43 and Hypertension I10 [facility] [address] [place] [id number] [address] [place] [address] Nov, [facility] [address] [place] [id number] [address] [place] [address] Nov, [facility] [address] [place] [id number] [address] [place] [address] Nov, [facility] [address] [place] [id number] [address] [place] [address] Nov, Right ankle pain M25.571 and Chronic osteomyelitis of right foot with draining sinus M86.471 [facility] [address] [place] [id number] [address] [place] [address] Oct, Right ankle pain M25.571 [facility] [address] [place] [id number] [address] [place] [address] Oct, [facility] [address] [place] [id number] [address] [place] [address] Sep, Diabetes mellitus E11.9 [facility] [address] [place] [id number] [address] [place] [address] Sep, Diabetic polyneuropathy asso ciated with type 2 diabetes mellitus E11.42 and Venous insufficiency I87.2 [facility] [address] [id number] [address] [place] [address] Sep, Right ankle pain M25.571 [facility] [address] [id number] [address] [place] [address] Aug, Right ankle pain M25.571 [facility] [address] [id number] [address] [place] [address] Aug, Chronic osteomyelitis of rig ht foot with draining sinus M86.471 [facility] [address] [id number] [address] [place] [address] Aug, [facility] [address] [id number] [address] [place] [address] Aug, [facility] [address] [id number] [address] [place] [address] Aug, Chronic osteomyelitis of rig ht foot with draining sinus M86.471 [facility] [address] [id number] [address] [place] [address] Jul, [facility] [address] [id number] [address] [place] [address] Jul, [facility] [address] [id number] [address] [place] [address] Jul, Chronic kidney disease N18.9 [facility] [address] [id number] [address] [place] [address] Jul, Right ankle pain M25.571 [facility] [address] [id number] [address] [place] [address] Jul, Non-healing ulcer of right f oot, unspecified ulcer stage L97.519 [facility] [address] [id number] [address] [place] [address] Jul, Chronic skin ulcer with fat layer exposed L98.492 [facility] [address] [id number] [address] [place] [address] 09 Jul, 2017 Deformity of right ankle nitza nt M21.961 [facility] [address] [facility] [id number] [address] [place] [address] 27 Jun, 2017 [facility] [address] [facility] [id number] [address] [place] [address] 21 Jun, 2017 Diabetes mellitus E11.9 ; Sk in ulcer of right foot with fat layer exposed L97.512 and Encounter for immunization Z23 [facility] [address] [facility] [id number] [address] [place] [address] 18 Jun, 2017 Right ankle pain M25.571 [place] [address] [facility] [id number] [address] [place] [id number] May, Right ankle pain M25.571 [place] [address] [place] [id number] [address] [place] [address] Apr, Right ankle pain M25.571 [facility] [address] [facility] [id number] [address] [place] [address] Mar, Right ankle pain M25.571 [facility] [address] [facility] [id number] [address] [place] [address] Mar, [facility] [address] [place] [id number] [address] [place] [address] February, Diabetes mellitus E11.9 and Diabetic polyneuropathy associated with type 2 diabetes mellitus E11.42 [facility] [address] [facility] [id number] [address] [place] [address] February, Hyperkalemia E87.5 [facility] [address] [place] [id number] [address] [place] [address] February, Right ankle pain M25.571 [facility] [address] [facility] [id number] [address] [place] [address] Jan, Right ankle pain M25.571 [facility] [address] [facility] [id number] [address] [place] [address] Dec, Right ankle pain M25.571 [facility] [address] [place] [id number] [place] [address] Dec, Right ankle pain M25.571 [facility] [address] [facility] [id number] [address] [place] [address] Nov, [facility] [address] [place] [id number] [place] [address] Nov, Diabetes mellitus E11.9 ; Hy pertension I10 ; Gastroparesis K31.84 and Type 2 diabetes mellitus with diabetic autonomic (poly)neuropathy E11.43 [facility] [address] [place] [id number] [place] [address] Nov, Right ankle pain M25.571 [facility] [address] [address] Oct, Right ankle pain M25.571 [facility] [address] [place] [id number] [address] [place] [address] Oct, [facility] [address] [place] [id number] [place] [address] Oct, [facility] [address] [place] [id number] [address] [place] [address] Sep, [facility] [address] [place] [id number] [place] [address] Sep, Hypertension I10 [facility] [address] [facility] [id number] [address] [place] [address] Sep, Chronic kidney disease N18.9 ; Right ankle pain M25.571 and GERD (gastroesophageal reflux disease) K21.9 [facility] [address] [facility] [id number] [address] [place] [address] Jul, [facility] [address] [place] [id number] [place] [id number] Jul, Encounter for immunization Z 23 ; Venous insufficiency I87.2 and Diabetic polyneuropathy associated with type 2 diabetes mellitus E11.42 [facility] [address] [id number] [address] [place] [id number] Jul, [facility] [address] [id number] [address] [place] [address] Jul, Diabetes mellitus E11.9 [facility] [address] [id number] [address] [place] [address] May, [facility] [address] [id number] [address] [place] [id number] Apr, [facility] [address] [id number] [address] [place] [address] Mar, Right ankle pain M25.571 [facility] [address] [id number] [address] [place] [id number] Mar, [facility] [address] [id number] [address] [place] [address] February, Paresthesias R20.2 [facility] [address] [id number] [address] [place] [address] February, [facility] [address] [facility] [id number] [address] [place] [address] February, 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 [facility] [address] [id number] [address] [place] [address] February, Diabetes mellitus E11.9 [facility] [address] [id number] [address] [place] [address] February, [facility] [address] [facility] [id number] [address] [place] [address] February, Polyneuropathy in diabetes 3 57.2 and Paresthesias R20.2 [facility] [address] [id number] [address] [place] [address] February, [facility] [address] [facility] [id number] [address] [place] [address] February, [facility] [address] [facility] [id number] [address] [place] [id number] February, [facility] [address] [facility] [id number] [address] [place] [address] February, Diabetes mellitus E11.9 [facility] [address] [facility] [id number] [address] [place] [address] February, [facility] [address] [facility] [id number] [address] [place] [address] February, Hyperkalemia E87.5 [facility] [address] [facility] [id number] [address] [place] [address] Jan, Hypertension I10 [facility] [address] [facility] [id number] [place] [phone] Jan, Insomnia G47.00 [facility] [address] [facility] [id number] [address] [place] [id number] Jan, [facility] [address] [place] [id number] [address] [place] [id number] Jan, [facility] [address] [facility] [id number] [address] [place] [address] Jan, [facility] [address] [facility] [id number] [address] [place] [address] Dec, Right ankle pain M25.571 [facility] [address] [facility] [id number] [address] [place] [id number] Dec, GERD (gastroesophageal reflu x disease) K21.9 [facility] [address] [facility] [id number] [address] [place] [address] Dec, Insomnia G47.00 [facility] [address] [facility] [id number] [address] [place] [address] Dec, Hypertension I10 and Hyperka lemia 276.[address] [place] [id number] [facility] [id number] [address] [place] [address] 10 Dec, 2015 Chronic kidney disease N18.9 [facility] [address] [facility] [id number] [address] [place] [id number] 07 Dec, 2015 [facility] [address] [facility] [id number] [address] [place] [id number] Dec, Hyperkalemia E87.5 [facility] [address] [facility] [id number] [address] [place] [id number] Dec, Chronic kidney disease N18.9 and Right ankle pain M25.571 [facility] [address] [facility] [id number] [address] [place] [id number] 11 Nov, 2015 GERD (gastroesophageal reflu x disease) K21.9 [facility] [address] [facility] [id number] [address] [place] [id number] 03 Nov, 2015 Right ankle pain M25.571 [facility] [address] [facility] [id number] [address] [place] [id number] Nov, Diabetes mellitus E11.9 [facility] [address] [facility] [id number] [address] [place] [id number] Oct, [facility] [address] [facility] [id number] [address] [place] [id number] Oct, [facility] [address] [facility] [id number] [address] [place] [id number] Oct, [facility] [address] [facility] [id number] [address] [place] [id number] Oct, Hyperkalemia E87.5 [facility] [address] [facility] [id number] [address] [place] [id number] Oct, [facility] [address] [facility] [id number] [address] [place] [id number] Oct, Hyperkalemia E87.5 [facility] [address] [facility] [id number] [address] [place] [id number] Sep, [facility] [address] [id number] [address] [place] [id number] Sep, [facility] [address] [id number] [address] [place] [id number] Sep, [facility] [address] [id number] [address] [place] [id number] Sep, [facility] [address] [id number] [address] [place] [id number] Sep, Right ankle pain M25.571 [facility] [address] [id number] [address] [place] [id number] Aug, Chronic kidney disease N18.9 [facility] [facility] [address] [facility] [id number] [address] [place] [address] Aug, [facility] [address] [id number] [address] [place] [address] Aug, Hyperkalemia E87.5 [facility] [address] [facility] [id number] [address] [place] [address] Aug, [facility] [address] [facility] [id number] [address] [place] [address] Jul, [facility] [address] [id number] [address] [place] [address] Jul, [facility] [address] [facility] [id number] [address] [place] [address] Jul, [facility] [address] [facility] [id number] [address] [place] [address] Jul, Diabetes mellitus E11.9 ; En counter for immunization Z23 ; Hypertension I10 and Hyperkalemia E87.5 [facility] [address] [facility] [id number] [address] [place] [address] Jul, [facility] [address] [id number] [address] [place] [address] [place] [address] Jul, Hyperkalemia E87.5 [facility] [address] [id number] [address] [place] [address], [place] [address] Jul, Hyperkalemia E87.5 [facility] [address] [id number] [address] [place] [address], [place] [address] Jun, [facility] [address] [id number] [address] [place] [address], [place] [address] Jun, [facility] [address] [id number] [address] [place] [address], [place] [address] Jun, [facility] [address] [id number] [address] [place] [address], [place] [address] Jun, [facility] [address] [id number] [address] [place] [address], [place] [address] May, [facility] [address] [id number] [address] [place] [id number] May, [facility] [address] [id number] [address] [place] [address], [place] [address] May, [facility] [address] [id number] [address] [place] [address] May, Hyperkalemia 276.7 [facility] [address] [id number] [address] [place] [address], [place] [address] May, [facility] [address] [id number] [address] [place] [id number] Apr, Hyperkalemia 276.7 [facility] [address] [id number] [address] [place] [address], [place] [address] Apr, [facility] [address] [id number] [address] [place] [address], [place] [address] Apr, [facility] [address] [id number] [address] [place] [address], [place] [address] Apr, [facility] [address] [id number] [address] [place] [address] Apr, [facility] [address] [id number] [address] [place] [id number] 14 Apr, 2015 Hyperkalemia 276.7 [facility] [place] [address] [id number] [address] [place] [address] Apr, [facility] [place] [address] [id number] [address] [place] [address] Apr, [facility] [address] [id number] [address] [place] [address] Mar, [facility] [place] [address] [id number] [address] [place] [address] Mar, Hyperkalemia 276.7 [facility] [address] [id number] [address] [place] [address] Mar, Hyperkalemia 276.7 [facility] [address] [id number] [address] [place] [address] Mar, [facility] [address] [id number] [address] [place] [address] Mar, [facility] [address] [id number] [address] [place] [address] Mar, [facility] [address] [id number] [address] [place] [address] Mar, [facility] [address] [id number] [address] [place] [address] Mar, Anserine bursitis 726.61 [facility] [address] [id number] [address] [place] [address] Mar, Asthma 493.90 and Hyperkalem ia 276.7 [facility] [address] [id number] [address] [place] [address] Mar, [facility] [address] [id number] [address] [place] [address], [place] [address] February, [facility] [address] [id number] [address] [place] [address], [place] [address] February, [facility] [address] [id number] [address] [place] [address], [place] [address] February, [facility] [address] [id number] [address] [place] [address], [place] [address] February, [facility] [address] [id number] [address] [place] [address], [place] [address] February, [facility] [address] [id number] [address] [place] [address], [place] [address] February, [facility] [address] [id number] [address] [place] [address], [place] [address] February, [facility] [address] [id number] [address] [place] [address], [place] [address] February, [facility] [address] [id number] [address] [place] [address], [place] [address] February, [facility] [address] [id number] [address] [place] [address], [place] [address] Jan, [facility] [address] [id number] [address] [place] [address], [place] [address] Jan, [facility] [address] [id number] [address] [place] [address], [place] [address] Dec, [facility] [address] [id number] [address] [place] [address], [place] [address] Dec, [facility] [address] [id number] [address] [place] [address], [place] [address] Dec, [facility] [address] [id number] [address] [place] [address], [place] [address] Dec, [facility] [address] [id number] [address] [place] [address], [place] [address] Dec, [facility] [address] [id number] [address] [place] [address], [place] [address] Dec, [facility] [address] [id number] [address] [place] [address], [place] [address] Dec, [facility] [address] [id number] [address] [place] [address], [place] [address] Dec, [facility] [address] [id number] [address] [place] [address], [place] [address] Dec, [facility] [address] [id number] [address] [place] [address], [place] [address] Dec, [facility] [address] [id number] [address] [place] [address], [place] [address] Dec, [facility] [address] [id number] [address] [place] [address], [place] [address] Dec, [facility] [address] [id number] [address] [place] [address], [place] [address] Dec, [facility] [address] [id number] [address] [place] [address], [place] [address] Dec, [facility] [address] [id number] [address] [place] [address], [place] [address] Nov, [facility] [address] [id number] [address] [place] [address], [place] [address] Nov, [facility] [address] [id number] [address] [place] [address], [place] [address] Nov, 2014 [facility] [address] [id number] [address] [place] [address], [place] [address] Nov, [facility] [address] [id number] [address] [place] [address], [place] [address] Nov, [facility] [address] [id number] [address] [place] [address], [place] [address] Nov, [facility] [address] [id number] [address] [place] [address] Oct, [facility] [address] [id number] [address] [place] [address], [place] [address] Oct, [facility] [address] [id number] [address] [place] [address], [place] [address] Oct, [facility] [address] [id number] [address] [place] [address], [place] [address] Oct, [facility] [address] [id number] [address] [place] [address], [place] [address] Oct, [facility] [address] [id number] [address] [place] [address], [place] [address] Oct, [facility] [address] [id number] [address] [place] [address], [place] [address] Sep, [facility] [address] [id number] [address] [place] [address], [place] [address] Sep, [facility] [address] [id number] [address] [place] [address], [place] [address] Sep, [facility] [address] [id number] [address] [place] [address], [place] [address] Sep, [facility] [address] [id number] [address] [place] [address], [place] [address] Sep, [facility] [address] [id number] [address] [place] [address], [place] [address] Sep, [facility] [address] [id number] [address] [place] [address], [place] [address] Aug, [facility] [address] [id number] [address] [place] [address], [place] [address] Aug, [facility] [address] [id number] [address] [place] [address], [place] [address] Aug, [facility] [address] [id number] [address] [place] [address], [place] [address] Aug, [facility] [address] [id number] [address] [place] [address], [place] [address] Aug, [facility] [address] [id number] [address] [place] [address], [place] [address] Aug, [facility] [address] [id number] [address] [place] [address], [place] [address] Jul, [facility] [address] [id number] [address] [place] [address], [place] [address] Jul, [facility] [address] [id number] [address] [place] [address], [place] [address] Jul, [facility] [address] [id number] [address] [place] [address], [place] [address] Jul, [facility] [address] [id number] [address] [place] [address], [place] [address] Jul, [facility] [address] [id number] [address] [place] [address], [place] [address] Jul, [facility] [address] [id number] [address] [place] [address], [place] [address] Jul, [facility] [address] [id number] [address] [place] [address], [place] [address] Jul, [facility] [address] [id number] [address] [place] [address], [place] [address] Jul, [facility] [address] [id number] [address] [place] [address], [place] [address] Jul, [facility] [address] [id number] [address] [place] [address], [place] [address] Jul, [facility] [address] [id number] [address] [place] [address], [place] [address] Jun, [facility] [address] [id number] [address] [place] [address], [place] [address] Jun, [facility] [address] [id number] [address] [place] [address] [address] Jun, [facility] [address] [id number] [address] [place] [address] Jun, [facility] [address] [id number] [address] [place] [address] Apr, [facility] [address] [id number] [address] [place] [address] Apr, [facility] [address] [id number] [address] [place] [address] Apr, [facility] [address] [id number] [address] [place] [address] Apr, [facility] [address] [id number] [address] [place] [address] Mar, [facility] [address] [id number] [address] [place] [address] Mar, [facility] [address] [id number] [address] [place] [address] Mar, [facility] [address] [id number] [address] [place] [address] Mar, [facility] [address] [id number] [address] [place] [address] Mar, [facility] [address] [id number] [address] [place] [address] Sep, [facility] [address] [id number] [address] [place] [address] Sep, [facility] [address] [id number] [address] [place] [address] Aug, IMMUNIZATIONS No Known Immunizations SOCIAL HISTORY [...] V C oct 2016 Hospitalization History Pneumonia [place] [facility] 06/2018 Hospitalization History fistula in left arm 07/2018
--- OUTSIDE RECORDS SUMMARY | 2020-04-01 19:31 | XMS REPORT ---
Author Author Josephine WILLIS Organization [facility] Address [address] [place] [address] Care Team Providers Care Industrial Cleaning Technician Name Role Phone OLYA WILLIS Unavailable PROBLEMS Type Condition ICD9-CM Code LXD39-GO Code Onset Dates Condition S tatus SNOMED Code Problem Diabetes mellitus E11.9 Active 73 094234 Problem Hypertension I10 Active 4114424 3 Problem Paresthesias R20.2 Active 0791674 4 Problem Chronic kidney disease N18.9 Active 225752492 Problem Venous insufficiency I87.2 Active 13916757 Problem Diabetic polyneuropathy associated with type 2 d iabetes mellitus E11.42 Active 97459424 Problem Type 2 diabetes mellitus with diabetic autonomic (poly)neuropathy E11.43 Active 512116880 Problem Chronic skin ulcer with fat layer exposed L98.492 Active 03061094 Problem Chronic osteomyelitis of right foot with draining sinus M86.471 Active 230652125651222 Problem PAD (peripheral artery disease) I73.9 Active 751634854 Problem Gastroparesis K31.84 Active 246779 006 Problem Seasonal allergic rhinitis due to other allergic trigger J30.89 Active 626940785 Problem GERD (gastroesophageal reflux disease) K21.9 Active 052410054 Problem Type 2 diabetes mellitus with foot ulcer E11.621 Active 87408487170442 Problem 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 Active 329839510 Problem Pressure ulcer of unspecified heel, stage 4 L89.60 4 Active 377373328 Problem Unsteady gait R26.81 Active 223489 08 ALLERGIES No Information ENCOUNTERS Encounter Location Date Diagnosis [facility] [address] [facility] [id number] [address] [place] [address] Apr, [facility] [address] [facility] [id number] [address] [place] [address] Apr, Foot callus L84 and Nonheali ng wound of heel S91.309A [facility] [address] [id number] [address] [place] [address] Apr, [address] [phone] Mar, [facility] [address] [id number] [address] [place] [address] Mar, Diabetes mellitus E11.9 and Chronic skin ulcer with fat layer exposed L98.492 [facility] [address] [id number] [address] [place] [address] Mar, Chronic skin ulcer with fat layer exposed L98.492 [facility] [address] [id number] [address] [place] [address] Mar, [facility] [address] [id number] [address] [place] [address] February, Chronic skin ulcer with fat layer exposed L98.492 and Encounter for medication monitoring Z51.81 [facility] [address] [id number] [address] [place] [address] February, [facility] [address] [id number] [address] [place] [address] February, Encounter for medication mon itoring Z51.81 [facility] [address] [id number] [address] [place] [address] February, [facility] [address] [id number] [address] [place] [address] February, [facility] [address] [id number] [address] [place] [address] February, [facility] [address] [id number] [address] [place] [address] Jan, Chronic skin ulcer with fat layer exposed L98.492 [facility] [address] [id number] [address] [place] [address] Jan, [facility] [address] [id number] [address] [place] [address] Dec, [facility] [address] [id number] [address] [place] [address] Dec, Diabetic polyneuropathy asso ciated with type 2 diabetes mellitus E11.42 and PAD (peripheral artery disease) I73.9 [facility] [address] [id number] [address] [place] [address] Dec, Chronic skin ulcer with fat layer exposed L98.492 [facility] [address] [id number] [address] [place] [address] Dec, [facility] [address] [id number] [address] [place] [address] Nov, [facility] [address] [id number] [address] [place] [address] Nov, Skin ulcer of right foot wit h fat layer exposed L97.512 [facility] [address] [id number] [address] [place] [address] Oct, [facility] [address] [id number] [address] [place] [address] Oct, Skin ulcer of right foot wit h fat layer exposed L97.512 [facility] [address] [id number] [address] [place] [address] Sep, Diabetes mellitus E11.9 [facility] [address] [id number] [address] [place] [address] Sep, [facility] [address] [id number] [address] [place] [address] Sep, [facility] [address] [id number] [address] [place] [address] Sep, [facility] [address] [id number] [address] [place] [address] Sep, Type 2 diabetes mellitus wit h foot ulcer E11.621 and Skin ulcer of right foot with fat layer exposed L97.512 [facility] [address] [id number] [address] [place] [address] Sep, Diabetes mellitus E11.9 [facility] [address] [id number] [address] [place] [address] Sep, [facility] [address] [id number] [address] [place] [address] Aug, [facility] [address] [id number] [address] [place] [address] Aug, [facility] [address] [id number] [address] [place] [address] Aug, 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 [facility] [address] [id number] [address] [place] [address] Aug, [facility] [address] [id number] [address] [place] [address] Aug, [facility] [address] [id number] [address] [place] [address] Aug, Bronchitis J40 [facility] [address] [id number] [address] [place] [address] Aug, [facility] [address] [id number] [address] [place] [address] Jul, [facility] [address] [id number] [address] [place] [address] Jul, Chronic skin ulcer with fat layer exposed L98.492 [facility] [address] [id number] [address] [place] [address] Jul, 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 [facility] [address] [id number] [address] [place] [address] Jun, [facility] [address] [id number] [address] [place] [address] Jun, [place] [address] [place] [id number] [address] [place] [address] May, [place] [id number] [place] [address] May, Chronic skin ulcer with fat layer exposed L98.492 [place] [address] [place] [id number] [address] [place] [address] Apr, [place] [address] [place] [id number] [address] [place] [address] Apr, Type 2 diabetes mellitus wit h foot ulcer E11.621 and Unsteady gait R26.81 [place] [address] [place] [id number] [address] [place] [address] Mar, Decubitus ulcer of right mariana l, stage 3 L89.613 [place] [address] [place] [id number] [address] [place] [address] Mar, [place] [address] [place] [id number] [address] [place] [address] Mar, Pressure ulcer of unspecifie d heel, stage 4 L89.604 and Type 2 diabetes mellitus with foot ulcer E11.621 [place] [address] [place] [address] Mar, Encounter for medication mon itoring Z51.81 [place] [address] [place] [id number] [address] [place] [address] Mar, Type 2 diabetes mellitus wit h foot ulcer E11.621 and Non-pressure chronic ulcer of right heel and midfoot with unspecified severity L97.419 [place] [address] [place] [address] February, [place] [address] [place] [id number] [address] [place] [address] Jan, Right ankle pain M25.571 [place] [address] [facility] [id number] [address] [place] [address] Dec, Right ankle pain M25.571 [facility] [address] [facility] [id number] [address] [place] [address] Dec, [facility] [address] [facility] [id number] [address] [place] [address] Dec, [facility] [address] [place] [id number] [address] [place] [address] Dec, Right ankle pain M25.571 [facility] [address] [facility] [id number] [address] [place] [address] Dec, Chronic skin ulcer with fat layer exposed L98.492 ; Type 2 diabetes mellitus with diabetic autonomic (poly)neuropathy E11.43 and Hypertension I10 [facility] [address] [place] [id number] [address] [place] [address] Nov, [facility] [address] [place] [id number] [address] [place] [address] Nov, [facility] [address] [place] [id number] [address] [place] [address] Nov, [facility] [address] [place] [id number] [address] [place] [address] Nov, Right ankle pain M25.571 and Chronic osteomyelitis of right foot with draining sinus M86.471 [facility] [address] [place] [id number] [address] [place] [address] Oct, Right ankle pain M25.571 [facility] [address] [place] [id number] [address] [place] [address] Oct, [facility] [address] [place] [id number] [address] [place] [address] Sep, Diabetes mellitus E11.9 [facility] [address] [place] [id number] [address] [place] [address] Sep, Diabetic polyneuropathy asso ciated with type 2 diabetes mellitus E11.42 and Venous insufficiency I87.2 [facility] [address] [id number] [address] [place] [address] Sep, Right ankle pain M25.571 [facility] [address] [id number] [address] [place] [address] Aug, Right ankle pain M25.571 [facility] [address] [id number] [address] [place] [address] Aug, Chronic osteomyelitis of rig ht foot with draining sinus M86.471 [facility] [address] [id number] [address] [place] [address] Aug, [facility] [address] [id number] [address] [place] [address] Aug, [facility] [address] [id number] [address] [place] [address] Aug, Chronic osteomyelitis of rig ht foot with draining sinus M86.471 [facility] [address] [id number] [address] [place] [address] Jul, [facility] [address] [id number] [address] [place] [address] Jul, [facility] [address] [id number] [address] [place] [address] Jul, Chronic kidney disease N18.9 [facility] [address] [id number] [address] [place] [address] Jul, Right ankle pain M25.571 [facility] [address] [id number] [address] [place] [address] Jul, Non-healing ulcer of right f oot, unspecified ulcer stage L97.519 [facility] [address] [id number] [address] [place] [address] Jul, Chronic skin ulcer with fat layer exposed L98.492 [facility] [address] [id number] [address] [place] [address] 09 Jul, 2017 Deformity of right ankle nitza nt M21.961 [facility] [address] [facility] [id number] [address] [place] [address] 27 Jun, 2017 [facility] [address] [facility] [id number] [address] [place] [address] 21 Jun, 2017 Diabetes mellitus E11.9 ; Sk in ulcer of right foot with fat layer exposed L97.512 and Encounter for immunization Z23 [facility] [address] [facility] [id number] [address] [place] [address] 18 Jun, 2017 Right ankle pain M25.571 [place] [address] [facility] [id number] [address] [place] [address] May, Right ankle pain M25.571 [place] [address] [place] [id number] [address] [place] [address] Apr, Right ankle pain M25.571 [facility] [address] [facility] [id number] [address] [place] [address] Mar, Right ankle pain M25.571 [facility] [address] [facility] [id number] [address] [place] [address] Mar, [facility] [address] [place] [id number] [address] [place] [address] February, Diabetes mellitus E11.9 and Diabetic polyneuropathy associated with type 2 diabetes mellitus E11.42 [facility] [address] [facility] [id number] [address] [place] [address] February, Hyperkalemia E87.5 [facility] [address] [place] [id number] [address] [place] [address] February, Right ankle pain M25.571 [facility] [address] [facility] [id number] [address] [place] [address] Jan, Right ankle pain M25.571 [facility] [address] [facility] [id number] [address] [place] [address] Dec, Right ankle pain M25.571 [facility] [address] [place] [id number] [place] [address] Dec, Right ankle pain M25.571 [facility] [address] [facility] [id number] [address] [place] [address] Nov, [facility] [address] [place] [id number] [place] [address] Nov, Diabetes mellitus E11.9 ; Hy pertension I10 ; Gastroparesis K31.84 and Type 2 diabetes mellitus with diabetic autonomic (poly)neuropathy E11.43 [facility] [address] [place] [id number] [place] [address] Nov, Right ankle pain M25.571 [facility] [address] [address] Oct, Right ankle pain M25.571 [facility] [address] [place] [id number] [address] [place] [address] Oct, [facility] [address] [place] [id number] [place] [address] Oct, [facility] [address] [place] [id number] [address] [place] [address] Sep, [facility] [address] [place] [id number] [place] [address] Sep, Hypertension I10 [facility] [address] [facility] [id number] [address] [place] [address] Sep, Chronic kidney disease N18.9 ; Right ankle pain M25.571 and GERD (gastroesophageal reflux disease) K21.9 [facility] [address] [facility] [id number] [address] [place] [address] Jul, [facility] [address] [place] [id number] [place] [address] Jul, Encounter for immunization Z 23 ; Venous insufficiency I87.2 and Diabetic polyneuropathy associated with type 2 diabetes mellitus E11.42 [facility] [address] [id number] [address] [place] [address] Jul, [facility] [address] [id number] [address] [place] [address] Jul, Diabetes mellitus E11.9 [facility] [address] [id number] [address] [place] [address] May, [facility] [address] [id number] [address] [place] [address] Apr, [facility] [address] [id number] [address] [place] [address] Mar, Right ankle pain M25.571 [facility] [address] [id number] [address] [place] [address] Mar, [facility] [address] [id number] [address] [place] [address] February, Paresthesias R20.2 [facility] [address] [id number] [address] [place] [address] February, [facility] [address] [facility] [id number] [address] [place] [address] February, 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 [facility] [address] [id number] [address] [place] [address] February, Diabetes mellitus E11.9 [facility] [address] [id number] [address] [place] [address] February, [facility] [address] [facility] [id number] [address] [place] [address] February, Polyneuropathy in diabetes 3 57.2 and Paresthesias R20.2 [facility] [address] [id number] [address] [place] [address] February, [facility] [address] [facility] [id number] [address] [place] [address] February, [facility] [address] [facility] [id number] [address] [place] [address] February, [facility] [address] [facility] [id number] [address] [place] [address] February, Diabetes mellitus E11.9 [facility] [address] [facility] [id number] [address] [place] [address] February, [facility] [address] [facility] [id number] [address] [place] [address] February, Hyperkalemia E87.5 [facility] [address] [facility] [id number] [address] [place] [address] Jan, Hypertension I10 [facility] [address] [facility] [id number] [place] [address] Jan, Insomnia G47.00 [facility] [address] [facility] [id number] [address] [place] [address] Jan, [facility] [address] [place] [id number] [address] [place] [address] Jan, [facility] [address] [facility] [id number] [address] [place] [address] Jan, [facility] [address] [facility] [id number] [address] [place] [address] Dec, Right ankle pain M25.571 [facility] [address] [facility] [id number] [address] [place] [address] Dec, GERD (gastroesophageal reflu x disease) K21.9 [facility] [address] [facility] [id number] [address] [place] [address] Dec, Insomnia G47.00 [facility] [address] [facility] [id number] [address] [place] [address] Dec, Hypertension I10 and Hyperka lemia 276.7 [place] [id number] [facility] [id number] [address] [place] [id number] 10 Dec, 2015 Chronic kidney disease N18.9 [facility] [address] [facility] [id number] [address] [place] [id number] 07 Dec, 2015 [facility] [address] [facility] [id number] [address] [place] [id number] Dec, Hyperkalemia E87.5 [facility] [address] [facility] [id number] [address] [place] [id number] Dec, Chronic kidney disease N18.9 and Right ankle pain M25.571 [facility] [address] [facility] [id number] [address] [place] [id number] 11 Nov, 2015 GERD (gastroesophageal reflu x disease) K21.9 [facility] [address] [facility] [id number] [address] [place] [id number] 03 Nov, 2015 Right ankle pain M25.571 [facility] [address] [facility] [id number] [address] [place] [id number] Nov, Diabetes mellitus E11.9 [facility] [address] [facility] [id number] [address] [place] [id number] Oct, [facility] [address] [facility] [id number] [address] [place] [id number] Oct, [facility] [address] [facility] [id number] [address] [place] [id number] Oct, [facility] [address] [facility] [id number] [address] [place] [id number] Oct, Hyperkalemia E87.5 [facility] [address] [facility] [id number] [address] [place] [id number] Oct, [facility] [address] [facility] [id number] [address] [place] [id number] Oct, Hyperkalemia E87.5 [facility] [address] [facility] [id number] [address] [place] [id number] Sep, [facility] [address] [id number] [address] [place] [id number] Sep, [facility] [address] [id number] [address] [place] [id number] Sep, [facility] [address] [id number] [address] [place] [id number] Sep, [facility] [address] [id number] [address] [place] [id number] Sep, Right ankle pain M25.571 [facility] [address] [id number] [address] [place] [id number] Aug, Chronic kidney disease N18.9 [facility] [address] [facility] [id number] [address] [place] [id number] Aug, [facility] [address] [id number] [address] [place] [id number] Aug, Hyperkalemia E87.5 [facility] [address] [facility] [id number] [address] [place] [address] Aug, [facility] [address] [facility] [id number] [address] [place] [address] Jul, [facility] [address] [id number] [address] [place] [address] Jul, [facility] [address] [facility] [id number] [address] [place] [id number] Jul, [facility] [address] [facility] [id number] [address] [place] [address] Jul, Diabetes mellitus E11.9 ; En counter for immunization Z23 ; Hypertension I10 and Hyperkalemia E87.5 [facility] [address] [facility] [id number] [address] [place] [address] Jul, [facility] [address] [id number] [address] [place] [address] [place] [address] Jul, Hyperkalemia E87.5 [facility] [address] [id number] [address] [place] [address], [place] [address] Jul, Hyperkalemia E87.5 [facility] [address] [id number] [address] [place] [address], [place] [address] Jun, [facility] [address] [id number] [address] [place] [address], [place] [address] Jun, [facility] [address] [id number] [address] [place] [address], [place] [address] Jun, [facility] [address] [id number] [address] [place] [address], [place] [address] Jun, [facility] [address] [id number] [address] [place] [address], [place] [address] May, [facility] [address] [id number] [address] [place] [address] May, [facility] [address] [id number] [address] [place] [address], [place] [address] May, [facility] [address] [id number] [address] [place] [address] May, Hyperkalemia 276.7 [facility] [address] [id number] [address] [place] [address], [place] [address] May, [facility] [address] [id number] [address] [place] [address] Apr, Hyperkalemia 276.7 [facility] [address] [id number] [address] [place] [address], [place] [address] Apr, [facility] [address] [id number] [address] [place] [address], [place] [address] Apr, [facility] [address] [id number] [address] [place] [address], [place] [address] Apr, [facility] [address] [id number] [address] [place] [address] Apr, [facility] [address] [id number] [address] [place] [id number] 14 Apr, 2015 Hyperkalemia 276.7 [facility] [address] [id number] [address] [place] [address] Apr, [facility] [address] [id number] [address] [place] [address] Apr, [facility] [address] [id number] [address] [place] [address] Mar, [facility] [address] [id number] [address] [place] [address] Mar, Hyperkalemia 276.7 [facility] [address] [id number] [address] [place] [address] Mar, Hyperkalemia 276.7 [facility] [address] [id number] [address] [place] [phone] Mar, [facility] [address] [id number] [address] [place] [id number] Mar, [facility] [address] [id number] [address] [place] [address] Mar, [facility] [address] [id number] [address] [place] [address] Mar, [facility] [address] [id number] [address] [place] [address] Mar, Anserine bursitis 726.61 [facility] [address] [id number] [address] [place] [address] Mar, Asthma 493.90 and Hyperkalem ia 276.7 [facility] [address] [id number] [address] [place] [address] Mar, [facility] [address] [id number] [address] [place] [address], [place] [address] February, [facility] [address] [id number] [address] [place] [address], [place] [address] February, [facility] [address] [id number] [address] [place] [address], [place] [address] February, [facility] [address] [id number] [address] [place] [address], [place] [address] February, [facility] [address] [id number] [address] [place] [address], [place] [address] February, [facility] [address] [id number] [address] [place] [address], [place] [address] February, [facility] [address] [id number] [address] [place] [address], [place] [address] February, [facility] [address] [id number] [address] [place] [address], [place] [address] February, [facility] [address] [id number] [address] [place] [address], [place] [address] February, [facility] [address] [id number] [address] [place] [address], [place] [address] Jan, [facility] [address] [id number] [address] [place] [address], [place] [address] Jan, [facility] [address] [id number] [address] [place] [address], [place] [address] Dec, [facility] [address] [id number] [address] [place] [address], [place] [address] Dec, [facility] [address] [id number] [address] [place] [address], [place] [address] Dec, [facility] [address] [id number] [address] [place] [address], [place] [address] Dec, [facility] [address] [id number] [address] [place] [address], [place] [address] Dec, [facility] [address] [id number] [address] [place] [address], [place] [address] Dec, [facility] [address] [id number] [address] [place] [address], [place] [address] Dec, [facility] [address] [id number] [address] [place] [address], [place] [address] Dec, [facility] [address] [id number] [address] [place] [address], [place] [address] Dec, [facility] [address] [id number] [address] [place] [address], [place] [address] Dec, [facility] [address] [id number] [address] [place] [address], [place] [address] Dec, [facility] [address] [id number] [address] [place] [address], [place] [address] Dec, [facility] [address] [id number] [address] [place] [address], [place] [address] Dec, [facility] [address] [id number] [address] [place] [address], [place] [address] Dec, [facility] [address] [id number] [address] [place] [address], [place] [address] Nov, [facility] [address] [id number] [address] [place] [address], [place] [address] Nov, [facility] [address] [id number] [address] [place] [address], [place] [address] Nov, 2014 [facility] [address] [id number] [address] [place] [address], [place] [address] Nov, [facility] [address] [id number] [address] [place] [address], [place] [address] Nov, [facility] [address] [id number] [address] [place] [address], [place] [address] Nov, [facility] [address] [id number] [address] [place] [address] Oct, [facility] [address] [id number] [address] [place] [address], [place] [address] Oct, [facility] [address] [id number] [address] [place] [address], [place] [address] Oct, [facility] [address] [id number] [address] [place] [address], [place] [address] Oct, [facility] [address] [id number] [address] [place] [address], [place] [address] Oct, [facility] [address] [id number] [address] [place] [address], [place] [address] Oct, [facility] [address] [id number] [address] [place] [address], [place] [address] Sep, [facility] [address] [id number] [address] [place] [address], [place] [address] Sep, [facility] [address] [id number] [address] [place] [address], [place] [address] Sep, [facility] [address] [id number] [address] [place] [address], [place] [address] Sep, [facility] [address] [id number] [address] [place] [address], [place] [address] Sep, [facility] [address] [id number] [address] [place] [address], [place] [address] Sep, [facility] [address] [id number] [address] [place] [address], [place] [address] Aug, [facility] [address] [id number] [address] [place] [address], [place] [address] Aug, [facility] [address] [id number] [address] [place] [address], [place] [address] Aug, [facility] [address] [id number] [address] [place] [address], [place] [address] Aug, [facility] [address] [id number] [address] [place] [address], [place] [address] Aug, [facility] [address] [id number] [address] [place] [address], [place] [address] Aug, [facility] [address] [id number] [address] [place] [address], [place] [address] Jul, [facility] [address] [id number] [address] [place] [address], [place] [address] Jul, [facility] [address] [id number] [address] [place] [address], [place] [address] Jul, [facility] [address] [id number] [address] [place] [address], [place] [address] Jul, [facility] [address] [id number] [address] [place] [address], [place] [address] Jul, [facility] [address] [id number] [address] [place] [address], [place] [address] Jul, [facility] [address] [id number] [address] [place] [address], [place] [address] Jul, [facility] [address] [id number] [address] [place] [address], [place] [address] Jul, [facility] [address] [id number] [address] [place] [address], [place] [address] Jul, [facility] [address] [id number] [address] [place] [address], [place] [address] Jul, [facility] [address] [id number] [address] [place] [address], [place] [address] Jul, [facility] [address] [id number] [address] [place] [address], [place] [address] Jun, [facility] [address] [id number] [address] [place] [address], [place] [address] Jun, [facility] [address] [id number] [address] [place] [address] [address] Jun, [facility] [address] [id number] [address] [place] [address] Jun, [facility] [address] [id number] [address] [place] [address] Apr, [facility] [address] [id number] [address] [place] [address] Apr, [facility] [address] [id number] [address] [place] [address] Apr, [facility] [address] [id number] [address] [place] [address] Apr, [facility] [address] [id number] [address] [place] [id number] Mar, [facility] [address] [id number] [address] [place] [address] Mar, [facility] [address] [id number] [address] [place] [address] Mar, [facility] [address] [id number] [address] [place] [address] Mar, [facility] [address] [id number] [address] [place] [id number] Mar, [facility] [address] [id number] [address] [place] [id number] Sep, [facility] [address] [id number] [address] [place] [address] Sep, [facility] [address] [id number] [address] [place] [address] Aug, IMMUNIZATIONS No Known Immunizations SOCIAL HISTORY [...] V C oct 2016 Hospitalization History Pneumonia [place] [facility] 06/2018 Hospitalization History fistula in left arm 07/2018
--- OUTSIDE RECORDS SUMMARY | 2020-04-01 19:32 | XMS REPORT ---
Author Author Josephine Veras Doctor Organization [facility] Address Unknown Phone Unavailable Care Team Providers Care Industrial Relations Worker Name Role Phone Migration, Doctor Unavailable Unavailable PROBLEMS Type Condition ICD9-CM Code UVC21-GP Code Onset Dates Condition S tatus SNOMED Code Problem Hypertension I10 Active 2436846 3 Problem Chronic kidney disease N18.9 Active 892800513 Problem Diabetes mellitus E11.9 Active 73 788127 Problem Diabetic polyneuropathy associated with type 2 d iabetes mellitus E11.42 Active 67749924 Problem Paresthesias R20.2 Active 2551693 4 Problem Gastroparesis K31.84 Active 700468 006 Problem Type 2 diabetes mellitus with diabetic autonomic (poly)neuropathy E11.43 Active 330726428 Problem Chronic skin ulcer with fat layer exposed L98.492 Active 57101165 Problem Unsteady gait R26.81 Active 908975 08 Problem GERD (gastroesophageal reflux disease) K21.9 Active 422982546 Problem PAD (peripheral artery disease) I73.9 Active 888262008 Problem Venous insufficiency I87.2 Active 59165737 Problem Chronic osteomyelitis of right foot with draining sinus M86.471 Active 563417610698633 Problem Type 2 diabetes mellitus with foot ulcer E11.621 Active 76802014952486 Problem 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 Active 461207829 Problem Pressure ulcer of unspecified heel, stage 4 L89.60 4 Active 010483435 ALLERGIES No Information ENCOUNTERS Encounter Location Date Diagnosis [facility] [address] [facility] [id number] [address] [place] [address] Jan, [facility] [address] [facility] [id number] [address] [place] [address] Jan, [facility] [address] [facility] [id number] [address] [place] [address] Dec, [facility] [address] [facility] [id number] [address] [place] [address] Dec, Diabetic polyneuropathy asso ciated with type 2 diabetes mellitus E11.42 and PAD (peripheral artery disease) I73.9 [facility] [address] [id number] [address] [place] [address] Dec, Chronic skin ulcer with fat layer exposed L98.492 [facility] [address] [id number] [address] [place] [address] Dec, [facility] [address] [id number] [address] [place] [address] Nov, [facility] [address] [facility] [id number] [address] [place] [address] Nov, Skin ulcer of right foot wit h fat layer exposed L97.512 [facility] [address] [id number] [address] [place] [address] Oct, [facility] [address] [facility] [id number] [address] [place] [address] Oct, Skin ulcer of right foot wit h fat layer exposed L97.512 [facility] [address] [id number] [address] [place] [address] Sep, Diabetes mellitus E11.9 [facility] [address] [id number] [address] [place] [address] Sep, [facility] [address] [facility] [id number] [address] [place] [address] Sep, [facility] [address] [id number] [address] [place] [address] Sep, [facility] [address] [facility] [id number] [address] [place] [address] Sep, Type 2 diabetes mellitus wit h foot ulcer E11.621 and Skin ulcer of right foot with fat layer exposed L97.512 [facility] [address] [id number] [address] [place] [address] Sep, Diabetes mellitus E11.9 [facility] [address] [id number] [address] [place] [address] 07 Sep, 2018 [facility] [address] [id number] [address] [place] [address] Aug, [facility] [address] [id number] [address] [place] [address] Aug, [facility] [address] [facility] [id number] [address] [place] [address] Aug, 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 [facility] [address] [id number] [address] [place] [address] Aug, [facility] [address] [facility] [id number] [address] [place] [address] Aug, [facility] [address] [facility] [id number] [address] [place] [address] Aug, Bronchitis J40 [facility] [address] [facility] [id number] [address] [place] [address] Aug, [facility] [address] [facility] [id number] [address] [place] [address] Jul, [facility] [address] [facility] [id number] [address] [place] [address] Jul, Chronic skin ulcer with fat layer exposed L98.492 [facility] [address] [id number] [address] [place] [address] Jul, 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 [facility] [address] [id number] [address] [place] [address] Jun, [facility] [address] [facility] [id number] [address] [place] [address] Jun, [facility] [address] [facility] [id number] [address] [place] [address] May, [facility] [address] [facility] [id number] [address] [place] [address] May, Chronic skin ulcer with fat layer exposed L98.492 [facility] [address] [facility] [id number] [address] [place] [address] Apr, [facility] [address] [facility] [id number] [address] [place] [address] Apr, Type 2 diabetes mellitus wit h foot ulcer E11.621 and Unsteady gait R26.81 [place] [address] [facility] [id number] [address] [place] [address] Mar, Decubitus ulcer of right mariana l, stage 3 L89.613 [place] [address] [facility] [id number] [address] [place] [address] Mar, [place] [address] [facility] [id number] [address] [place] [address] Mar, Pressure ulcer of unspecifie d heel, stage 4 L89.604 and Type 2 diabetes mellitus with foot ulcer E11.621 [place] [address] [facility] [id number] [address] [place] [address] Mar, Encounter for medication mon itoring Z51.81 [place] [address] [facility] [id number] [address] [place] [address] Mar, Type 2 diabetes mellitus wit h foot ulcer E11.621 and Non-pressure chronic ulcer of right heel and midfoot with unspecified severity L97.419 [place] [address] [facility] [id number] [address] [place] [address] February, [place] [address] [facility] [id number] [address] [place] [address] Jan, Right ankle pain M25.571 [place] [address] [facility] [id number] [address] [place] [address] Dec, Right ankle pain M25.571 [place] [address] [facility] [id number] [address] [place] [address] Dec, [facility] [address] [facility] [id number] [address] [place] [address] Dec, [facility] [address] [facility] [id number] [address] [place] [address] Dec, Right ankle pain M25.571 [facility] [address] [place] [id number] [address] [place] [address] Dec, Chronic skin ulcer with fat layer exposed L98.492 ; Type 2 diabetes mellitus with diabetic autonomic (poly)neuropathy E11.43 and Hypertension I10 [facility] [address] [place] [id number] [address] [place] [address] Nov, [place] [address] [place] [id number] [address] [place] [address] Nov, [facility] [address] [place] [id number] [address] [place] [address] Nov, [facility] [address] [place] [id number] [address] [place] [address] Nov, Right ankle pain M25.571 and Chronic osteomyelitis of right foot with draining sinus M86.471 [place] [address] [place] [id number] [address] [place] [address] Oct, Right ankle pain M25.571 [facility] [address] [place] [id number] [address] [place] [address] Oct, [facility] [address] [place] [id number] [address] [place] [address] Sep, Diabetes mellitus E11.9 [facility] [address] [place] [id number] [address] [place] [address] Sep, Diabetic polyneuropathy asso ciated with type 2 diabetes mellitus E11.42 and Venous insufficiency I87.2 [facility] [address] [place] [id number] [address] [place] [address] Sep, Right ankle pain M25.571 [facility] [address] [id number] [address] [place] [address] Aug, Right ankle pain M25.571 [facility] [address] [id number] [address] [place] [address] Aug, Chronic osteomyelitis of rig foot with draining sinus M86.471 [facility] [address] [id number] [address] [place] [address] Aug, [facility] [address] [id number] [address] [place] [address] Aug, [facility] [address] [id number] [address] [place] [address] Aug, Chronic osteomyelitis of rig foot with draining sinus M86.471 [facility] [address] [id number] [address] [place] [address] Jul, [facility] [address] [id number] [address] [place] [address] Jul, [facility] [address] [id number] [address] [place] [address] Jul, Chronic kidney disease N18.9 [facility] [address] [id number] [address] [place] [address] Jul, Right ankle pain M25.571 [facility] [address] [id number] [address] [place] [address] Jul, Non-healing ulcer of right f oot, unspecified ulcer stage L97.519 [facility] [address] [id number] [address] [place] [address] Jul, Chronic skin ulcer with fat layer exposed L98.492 [facility] [address] [id number] [address] [place] [address] Jul, Deformity of right ankle nitza nt M21.961 [facility] [address] [id number] [address] [place] [address] 27 Jun, 2017 [facility] [address] [facility] [id number] [address] [place] [address] 21 Jun, 2017 Diabetes mellitus E11.9 ; Sk in ulcer of right foot with fat layer exposed L97.512 and Encounter for immunization Z23 [facility] [address] [id number] [address] [place] [address] 18 Jun, 2017 Right ankle pain M25.571 [facility] [address] [id number] [address] [place] [address] May, Right ankle pain M25.571 [facility] [address] [facility] [id number] [address] [place] [address] Apr, Right ankle pain M25.571 [facility] [address] [facility] [id number] [address] [place] [address] Mar, Right ankle pain M25.571 [facility] [address] [id number] [address] [place] [address] Mar, [facility] [address] [facility] [id number] [address] [place] [address] February, Diabetes mellitus E11.9 and Diabetic polyneuropathy associated with type 2 diabetes mellitus E11.42 [facility] [address] [facility] [id number] [address] [place] [address] February, Hyperkalemia E87.5 [facility] [address] [id number] [address] [place] [address] February, Right ankle pain M25.571 [facility] [address] [facility] [id number] [address] [place] [address] Jan, Right ankle pain M25.571 [facility] [address] [facility] [id number] [address] [place] [address] Dec, Right ankle pain M25.571 [facility] [address] [place] [id number] [place] [address] Dec, Right ankle pain M25.571 [facility] [address] [place] [id number] [place] [address] Nov, [facility] [address] [place] [id number] [place] [address] Nov, Diabetes mellitus E11.9 ; Hy pertension I10 ; Gastroparesis K31.84 and Type 2 diabetes mellitus with diabetic autonomic (poly)neuropathy E11.43 [facility] [address] [place] [id number] [place] [address] Nov, Right ankle pain M25.571 [facility] [address] [place] [id number] [place] [address] Oct, Right ankle pain M25.571 [facility] [address] [address] Oct, [facility] [address] [address] Oct, [facility] [address] [address] Sep, [facility] [address] [place] [id number] [place] [address] Sep, Hypertension I10 [facility] [address] [address] Sep, Chronic kidney disease N18.9 ; Right ankle pain M25.571 and GERD (gastroesophageal reflux disease) K21.9 [facility] [address] [place] [id number] [place] [address] Jul, [facility] [address] [place] [id number] [place] [address] Jul, Encounter for immunization Z 23 ; Venous insufficiency I87.2 and Diabetic polyneuropathy associated with type 2 diabetes mellitus E11.42 [facility] [address] [place] [id number] [address] [place] [address] Jul, [facility] [address] [id number] [address] [place] [address] Jul, Diabetes mellitus E11.9 [facility] [address] [id number] [address] [place] [address] May, [facility] [address] [id number] [address] [place] [address] Apr, [facility] [address] [id number] [address] [place] [address] Mar, Right ankle pain M25.571 [facility] [address] [id number] [address] [place] [address] Mar, [facility] [address] [id number] [address] [place] [address] February, Paresthesias R20.2 [facility] [address] [id number] [address] [place] [address] February, [facility] [address] [id number] [address] [place] [address] February, 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 [facility] [address] [id number] [address] [place] [address] February, Diabetes mellitus E11.9 [facility] [address] [id number] [address] [place] [address] February, [facility] [address] [id number] [address] [place] [address] February, Polyneuropathy in diabetes 3 57.2 and Paresthesias R20.2 [facility] [address] [id number] [address] [place] [address] February, [facility] [address] [id number] [address] [place] [address] February, [facility] [address] [id number] [address] [place] [address] February, [facility] [address] [id number] [address] [place] [address] February, Diabetes mellitus E11.9 [facility] [address] [id number] [address] [place] [address] February, [facility] [address] [facility] [id number] [address] [place] [address] February, Hyperkalemia E87.5 [facility] [address] [facility] [id number] [address] [place] [address] Jan, Hypertension I10 [facility] [address] [facility] [id number] [address] [place] [address] Jan, Insomnia G47.00 [facility] [address] [facility] [id number] [address] [place] [address] Jan, [facility] [address] [facility] [id number] [address] [place] [address] Jan, [facility] [address] [facility] [id number] [address] [place] [address] Jan, [facility] [address] [facility] [id number] [address] [place] [address] Dec, Right ankle pain M25.571 [facility] [address] [facility] [id number] [address] [place] [address] Dec, GERD (gastroesophageal reflu x disease) K21.9 [facility] [address] [facility] [id number] [address] [place] [address] Dec, Insomnia G47.00 [facility] [address] [facility] [id number] [address] [place] [address] Dec, Hypertension I10 and Hyperka lemia 276.7 [facility] [address] [facility] [id number] [address] [place] [address] Dec, Chronic kidney disease N18.9 [facility] [address] [id number] [address] [place] [address] Dec, [facility] [address] [id number] [address] [place] [address] Dec, Hyperkalemia E87.5 [facility] [address] [facility] [id number] [address] [place] [address] Dec, Chronic kidney disease N18.9 and Right ankle pain M25.571 [facility] [address] [id number] [address] [place] [address] 11 Nov, 2015 GERD (gastroesophageal reflu x disease) K21.9 [facility] [address] [id number] [address] [place] [address] 03 Nov, 2015 Right ankle pain M25.571 [facility] [address] [facility] [id number] [address] [place] [address] Nov, Diabetes mellitus E11.9 [facility] [address] [id number] [address] [place] [address] Oct, [facility] [address] [facility] [id number] [address] [place] [address] Oct, [facility] [address] [facility] [id number] [address] [place] [address] Oct, [facility] [address] [facility] [id number] [address] [place] [address] Oct, Hyperkalemia E87.5 [facility] [address] [id number] [address] [place] [address] Oct, [facility] [address] [facility] [id number] [address] [place] [address] Oct, Hyperkalemia E87.5 [facility] [address] [facility] [id number] [address] [place] [address] Sep, [facility] [address] [facility] [id number] [address] [place] [id number] 14 Sep, 2015 [facility] [address] [id number] [address] [place] [id number] Sep, [facility] [address] [id number] [address] [place] [id number] Sep, [facility] [address] [id number] [address] [place] [id number] Sep, Right ankle pain M25.571 [facility] [address] [id number] [address] [place] [id number] Aug, Chronic kidney disease N18.9 [facility] [address] [id number] [address] [place] [phone] Aug, [facility] [address] [id number] [address] [place] [id number] Aug, Hyperkalemia E87.5 [facility] [address] [id number] [address] [place] [phone] Aug, [facility] [address] [id number] [address] [place] [phone] Jul, [facility] [address] [facility] [id number] [address] [place] [id number] Jul, [facility] [address] [id number] [address] [place] [id number] Jul, [facility] [address] [facility] [id number] [address] [place] [id number] Jul, Diabetes mellitus E11.9 ; En counter for immunization Z23 ; Hypertension I10 and Hyperkalemia E87.5 [facility] [address] [id number] [address] [place] [id number] Jul, [facility] [address] [id number] [address] [place] [id number] Jul, Hyperkalemia E87.5 [facility] [address] [id number] [address] [place] [address] [place] [address] Jul, Hyperkalemia E87.5 [facility] [address] [id number] [address] [place] [address], [place] [address] Jun, [facility] [address] [id number] [address] [place] [address], [place] [phone] Jun, [facility] [address] [id number] [address] [place] [address], [place] [phone] Jun, [facility] [address] [id number] [address] [place] [address], [place] [id number] Jun, [facility] [address] [id number] [address] [place] [address], [place] [address] May, [facility] [address] [id number] [address] [place] [address], [place] [address] May, [facility] [address] [id number] [address] [place] [address], [place] [address] May, [facility] [address] [id number] [address] [place] [address], [place] [address] May, Hyperkalemia 276.7 [facility] [address] [id number] [address] [place] [address], [place] [address] May, [facility] [address] [id number] [address] [place] [address], [place] [address] Apr, Hyperkalemia 276.7 [facility] [address] [id number] [address] [place] [address], [place] [address] Apr, [facility] [address] [id number] [address] [place] [address], [place] [address] Apr, [facility] [address] [id number] [address] [place] [address], [place] [address] Apr, [facility] [address] [id number] [address] [place] [address], [place] [address] Apr, [facility] [address] [id number] [address] [place] [address] 14 Apr, 2015 Hyperkalemia 276.7 [facility] [address] [id number] [address] [place] [address] Apr, [facility] [address] [id number] [address] [place] [address] Apr, [facility] [address] [id number] [address] [place] [address] Mar, [facility] [address] [id number] [address] [place] [address] Mar, Hyperkalemia 276.7 [facility] [address] [id number] [address] [place] [id number] Mar, Hyperkalemia 276.7 [facility] [address] [id number] [address] [place] [address] Mar, [facility] [address] [id number] [address] [place] [address] Mar, [facility] [address] [id number] [address] [place] [address] Mar, [facility] [address] [id number] [address] [place] [address] Mar, [facility] [address] [id number] [address] [place] [address] Mar, Anserine bursitis 726.61 [facility] [address] [id number] [address] [place] [address] Mar, Asthma 493.90 and Hyperkalem ia 276.7 [facility] [address] [id number] [address] [place] [address] Mar, [facility] [address] [id number] [address] [place] [id number] February, [facility] [address] [id number] [address] [place] [address] February, [facility] [address] [id number] [address] [place] [address], [place] [address] February, [facility] [address] [id number] [address] [place] [address], [place] [address] February, [facility] [address] [id number] [address] [place] [address], [place] [address] February, [facility] [address] [id number] [address] [place] [address], [place] [address] February, [facility] [address] [id number] [address] [place] [address], [place] [address] February, [facility] [address] [id number] [address] [place] [address], [place] [address] February, [facility] [address] [id number] [address] [place] [address], [place] [address] February, [facility] [address] [id number] [address] [place] [address], [place] [address] Jan, [facility] [address] [id number] [address] [place] [address], [place] [address] Jan, [facility] [address] [id number] [address] [place] [address], [place] [address] Dec, [facility] [address] [id number] [address] [place] [address], [place] [address] Dec, [facility] [address] [id number] [address] [place] [address], [place] [address] Dec, [facility] [address] [id number] [address] [place] [address], [place] [address] Dec, [facility] [address] [id number] [address] [place] [address], [place] [address] Dec, [facility] [address] [id number] [address] [place] [address], [place] [address] Dec, [facility] [address] [id number] [address] [place] [address], [place] [address] Dec, [facility] [address] [id number] [address] [place] [address], [place] [address] Dec, [facility] [address] [id number] [address] [place] [address], [place] [address] Dec, [facility] [address] [id number] [address] [place] [address], [place] [address] Dec, [facility] [address] [id number] [address] [place] [address], [place] [address] Dec, [facility] [address] [id number] [address] [place] [address], [place] [address] Dec, [facility] [address] [id number] [address] [place] [address], [place] [address] Dec, [facility] [address] [id number] [address] [place] [address], [place] [address] Dec, [facility] [address] [id number] [address] [place] [address], [place] [address] Nov, [facility] [address] [id number] [address] [place] [address], [place] [address] Nov, [facility] [address] [id number] [address] [place] [address], [place] [address] Nov, [facility] [address] [id number] [address] [place] [address], [place] [address] Nov, [facility] [address] [id number] [address] [place] [address], [place] [address] Nov, [facility] [address] [id number] [address] [place] [address], [place] [address] Nov, [facility] [address] [id number] [address] [place] [address], [place] [address] Oct, [facility] [address] [id number] [address] [place] [address] [address] Oct, [facility] [address] [id number] [address] [place] [address], [place] [address] Oct, [facility] [address] [id number] [address] [place] [address], [place] [address] Oct, [facility] [address] [id number] [address] [place] [address], [place] [address] Oct, [facility] [address] [id number] [address] [place] [address], [place] [address] Oct, [facility] [address] [id number] [address] [place] [address], [place] [address] Sep, [facility] [address] [id number] [address] [place] [address], [place] [address] Sep, [facility] [address] [id number] [address] [place] [address], [place] [address] Sep, [facility] [address] [id number] [address] [place] [address], [place] [address] Sep, [facility] [address] [id number] [address] [place] [address], [place] [address] Sep, [facility] [address] [id number] [address] [place] [address], [place] [address] Sep, [facility] [address] [id number] [address] [place] [address], [place] [address] Aug, [facility] [address] [id number] [address] [place] [address], [place] [address] Aug, [facility] [address] [id number] [address] [place] [address], [place] [address] Aug, [facility] [address] [id number] [address] [place] [address], [place] [address] Aug, [facility] [address] [id number] [address] [place] [address], [place] [address] Aug, [facility] [address] [id number] [address] [place] [address], [place] [address] Aug, [facility] [address] [id number] [address] [place] [address], [place] [address] Jul, [facility] [address] [id number] [address] [place] [address], [place] [address] Jul, [facility] [address] [id number] [address] [place] [address], [place] [address] Jul, [facility] [address] [id number] [address] [place] [address], [place] [address] Jul, [facility] [address] [id number] [address] [place] [address], [place] [address] Jul, [facility] [address] [id number] [address] [place] [address], [place] [address] Jul, [facility] [address] [id number] [address] [place] [address], [place] [address] Jul, [facility] [address] [id number] [address] [place] [address], [place] [address] Jul, [facility] [address] [id number] [address] [place] [address], [place] [address] Jul, [facility] [address] [id number] [address] [place] [address], [place] [address] Jul, [facility] [address] [id number] [address] [place] [address], [place] [address] Jul, [facility] [address] [id number] [address] [place] [address], [place] [address] Jun, [facility] [address] [id number] [address] [place] [address], [place] [address] Jun, [facility] [address] [id number] [address] [place] [address], [place] [address] Jun, [facility] [address] [id number] [address] [place] [address], [place] [address] Jun, [facility] [address] [id number] [address] [place] [address] Apr, [facility] [address] [id number] [address] [place] [address] Apr, [facility] [address] [id number] [address] [place] [address] Apr, [facility] [address] [id number] [address] [place] [address] Apr, [facility] [address] [id number] [address] [place] [address] Mar, [facility] [address] [id number] [address] [place] [address] Mar, [facility] [address] [id number] [address] [place] [address] Mar, [facility] [address] [id number] [address] [place] [id number] Mar, [facility] [address] [id number] [address] [place] [address] Mar, [facility] [address] [id number] [address] [place] [address] Sep, [facility] [address] [id number] [address] [place] [address] Sep, [facility] [address] [id number] [address] [place] [phone] Aug, IMMUNIZATIONS No Known Immunizations SOCIAL HISTORY Never Assessed REASON FOR VISIT [place] [place] VITAL SIGNS MEDICATIONS Unknown [...]
--- OUTSIDE RECORDS SUMMARY | 2020-04-01 19:32 | XMS REPORT ---
Author Author Josephine Veras Doctor Organization [facility] [place] Address Unknown Phone Unavailable Care Team Providers Care Director Workers Compensation Name Role Phone Migration, Doctor Unavailable Unavailable PROBLEMS Type Condition ICD9-CM Code HPM28-GE Code Onset Dates Condition S tatus SNOMED Code Problem Diabetes mellitus E11.9 Active 73 951721 Problem Hypertension I10 Active 1518519 3 Problem Paresthesias R20.2 Active 4280657 4 Problem Chronic kidney disease N18.9 Active 005032928 Problem Venous insufficiency I87.2 Active 58065433 Problem Diabetic polyneuropathy associated with type 2 d iabetes mellitus E11.42 Active 93712741 Problem Type 2 diabetes mellitus with diabetic autonomic (poly)neuropathy E11.43 Active 640881398 Problem Chronic skin ulcer with fat layer exposed L98.492 Active 70868490 Problem Chronic osteomyelitis of right foot with draining sinus M86.471 Active 479657890954009 Problem PAD (peripheral artery disease) I73.9 Active 204042070 Problem Gastroparesis K31.84 Active 941168 006 Problem Seasonal allergic rhinitis due to other allergic trigger J30.89 Active 968686568 Problem GERD (gastroesophageal reflux disease) K21.9 Active 413966755 Problem Type 2 diabetes mellitus with foot ulcer E11.621 Active 10225869654438 Problem 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 Active 160837935 Problem Pressure ulcer of unspecified heel, stage 4 L89.60 4 Active 042004732 Problem Unsteady gait R26.81 Active 072717 08 ALLERGIES Substance Reaction Event Type Date Status Plavix caused bleeding Drug Allergy Jan, Active Neurontin Makes her disoriented Drug Allergy Jan, Active Lyrica Unknown Drug Allergy Jan, Active ENCOUNTERS Encounter Location Date Diagnosis [facility] [address] [facility] [id number] [address] [place] [phone] Apr, [facility] [address] [facility] [id number] [address] [place] [phone] Mar, Diabetes mellitus E11.9 and Chronic skin ulcer with fat layer exposed L98.492 [facility] [address] [id number] [address] [place] [address] Mar, Chronic skin ulcer with fat layer exposed L98.492 [facility] [address] [id number] [address] [place] [address] Mar, [facility] [address] [id number] [address] [place] [address] February, Chronic skin ulcer with fat layer exposed L98.492 and Encounter for medication monitoring Z51.81 [facility] [address] [id number] [address] [place] [address] February, [facility] [address] [id number] [address] [place] [address] February, Encounter for medication mon itoring Z51.81 [facility] [address] [id number] [address] [place] [phone] February, [facility] [address] [id number] [address] [place] [address] February, [facility] [address] [id number] [address] [place] [address] February, [facility] [address] [id number] [address] [place] [address] Jan, Chronic skin ulcer with fat layer exposed L98.492 [facility] [address] [id number] [address] [place] [address] Jan, [facility] [address] [id number] [address] [place] [phone] Dec, [facility] [address] [id number] [address] [place] [address] Dec, Diabetic polyneuropathy asso ciated with type 2 diabetes mellitus E11.42 and PAD (peripheral artery disease) I73.9 [facility] [address] [id number] [address] [place] [address] Dec, Chronic skin ulcer with fat layer exposed L98.492 [facility] [address] [id number] [address] [place] [phone] Dec, [facility] [address] [id number] [address] [place] [address] Nov, [facility] [address] [id number] [address] [place] [address] Nov, Skin ulcer of right foot wit h fat layer exposed L97.512 [facility] [address] [id number] [address] [place] [address] Oct, [facility] [address] [id number] [address] [place] [address] Oct, Skin ulcer of right foot wit h fat layer exposed L97.512 [facility] [address] [id number] [address] [place] [phone] Sep, Diabetes mellitus E11.9 [facility] [address] [id number] [address] [place] [address] Sep, [facility] [address] [id number] [address] [place] [phone] Sep, [facility] [address] [id number] [address] [place] [address] Sep, [facility] [address] [id number] [address] [place] [phone] 14 Sep, 2018 Type 2 diabetes mellitus wit h foot ulcer E11.621 and Skin ulcer of right foot with fat layer exposed L97.512 [facility] [address] [id number] [address] [place] [address] Sep, Diabetes mellitus E11.9 [facility] [address] [id number] [address] [place] [phone] 07 Sep, 2018 [facility] [address] [id number] [address] [place] [address] Aug, [facility] [address] [id number] [address] [place] [phone] Aug, [facility] [address] [id number] [address] [place] [address] Aug, 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 [facility] [address] [id number] [address] [place] [address] Aug, [facility] [address] [id number] [address] [place] [address] Aug, [facility] [address] [id number] [address] [place] [phone] Aug, Bronchitis J40 [facility] [address] [facility] [id number] [address] [place] [address] Aug, [facility] [address] [id number] [address] [place] [address] Jul, [facility] [address] [id number] [address] [place] [phone] Jul, Chronic skin ulcer with fat layer exposed L98.492 [facility] [address] [id number] [address] [place] [address] Jul, 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 [facility] [address] [id number] [address] [place] [address] Jun, [facility] [address] [id number] [address] [place] [phone] Jun, [facility] [address] [id number] [address] [place] [id number] May, [facility] [address] [id number] [address] [place] [address] May, Chronic skin ulcer with fat layer exposed L98.492 [place] [address] [facility] [id number] [address] [place] [address] Apr, [place] [address] [facility] [id number] [address] [place] [address] Apr, Type 2 diabetes mellitus wit h foot ulcer E11.621 and Unsteady gait R26.81 [place] [address] [place] [id number] [address] [place] [address] Mar, Decubitus ulcer of right mariana l, stage 3 L89.613 [place] [address] [facility] [id number] [address] [place] [address] Mar, [place] [address] [place] [id number] [place] [address] Mar, Pressure ulcer of unspecifie d heel, stage 4 L89.604 and Type 2 diabetes mellitus with foot ulcer E11.621 [place] [id number] [place] [address] Mar, Encounter for medication mon itoring Z51.81 [place] [address] [facility] [id number] [address] [place] [address] Mar, Type 2 diabetes mellitus wit h foot ulcer E11.621 and Non-pressure chronic ulcer of right heel and midfoot with unspecified severity L97.419 [place] [address] [place] [id number] [address] [place] [address] February, [place] [address] [place] [id number] [address] [place] [address] Jan, Right ankle pain M25.571 [place] [address] [place] [id number] [address] [place] [address] Dec, Right ankle pain M25.571 [place] [address] [place] [id number] [address] [place] [address] Dec, [place] [address] [place] [id number] [address] [place] [phone] Dec, [facility] [address] [facility] [id number] [address] [place] [address] Dec, Right ankle pain M25.571 [facility] [address] [facility] [id number] [address] [place] [address] Dec, Chronic skin ulcer with fat layer exposed L98.492 ; Type 2 diabetes mellitus with diabetic autonomic (poly)neuropathy E11.43 and Hypertension I10 [facility] [address] [facility] [id number] [address] [place] [phone] Nov, [facility] [address] [facility] [id number] [address] [place] [phone] Nov, [facility] [address] [place] [id number] [address] [place] [address] Nov, [facility] [address] [place] [id number] [address] [place] [phone] Nov, Right ankle pain M25.571 and Chronic osteomyelitis of right foot with draining sinus M86.471 [facility] [address] [facility] [id number] [address] [place] [address] Oct, Right ankle pain M25.571 [facility] [address] [place] [id number] [address] [place] [address] Oct, [facility] [address] [place] [id number] [address] [place] [address] Sep, Diabetes mellitus E11.9 [facility] [address] [place] [id number] [address] [place] [phone] Sep, Diabetic polyneuropathy asso ciated with type 2 diabetes mellitus E11.42 and Venous insufficiency I87.2 [facility] [address] [place] [id number] [address] [place] [address] Sep, Right ankle pain M25.571 [facility] [address] [place] [id number] [address] [place] [address] Aug, Right ankle pain M25.571 [facility] [address] [id number] [address] [place] [phone] Aug, Chronic osteomyelitis of rig ht foot with draining sinus M86.471 [facility] [address] [id number] [address] [place] [phone] Aug, [facility] [address] [id number] [address] [place] [phone] Aug, [facility] [address] [id number] [address] [place] [phone] Aug, Chronic osteomyelitis of rig ht foot with draining sinus M86.471 [facility] [address] [id number] [address] [place] [phone] Jul, [facility] [address] [id number] [address] [place] [phone] Jul, [facility] [address] [id number] [address] [place] [address] Jul, Chronic kidney disease N18.9 [facility] [address] [id number] [address] [place] [phone] Jul, Right ankle pain M25.571 [facility] [address] [id number] [address] [place] [address] Jul, Non-healing ulcer of right f oot, unspecified ulcer stage L97.519 [facility] [address] [id number] [address] [place] [address] Jul, Chronic skin ulcer with fat layer exposed L98.492 [facility] [address] [id number] [address] [place] [address] Jul, Deformity of right ankle nitza nt M21.961 [facility] [address] [id number] [address] [place] [address] Jun, [facility] [address] [id number] [address] [place] [address] Jun, Diabetes mellitus E11.9 ; Sk in ulcer of right foot with fat layer exposed L97.512 and Encounter for immunization Z23 [facility] [address] [place] [id number] [address] [place] [address] 18 Jun, 2017 Right ankle pain M25.571 [facility] [address] [facility] [id number] [address] [place] [address] May, Right ankle pain M25.571 [facility] [address] [place] [id number] [address] [place] [address] Apr, Right ankle pain M25.571 [facility] [address] [place] [id number] [address] [place] [address] Mar, Right ankle pain M25.571 [place] [address] [place] [id number] [address] [place] [address] Mar, [facility] [address] [place] [id number] [address] [place] [address] February, Diabetes mellitus E11.9 and Diabetic polyneuropathy associated with type 2 diabetes mellitus E11.42 [facility] [address] [place] [id number] [address] [place] [address] February, Hyperkalemia E87.5 [facility] [address] [place] [id number] [address] [place] [address] February, Right ankle pain M25.571 [facility] [address] [place] [id number] [address] [place] [address] Jan, Right ankle pain M25.571 [facility] [address] [place] [id number] [address] [place] [address] Dec, Right ankle pain M25.571 [facility] [address] [place] [id number] [address] [place] [address] Dec, Right ankle pain M25.571 [facility] [address] [place] [id number] [address] [place] [phone] Nov, [facility] [address] [facility] [id number] [address] [place] [address] Nov, Diabetes mellitus E11.9 ; Hy pertension I10 ; Gastroparesis K31.84 and Type 2 diabetes mellitus with diabetic autonomic (poly)neuropathy E11.43 [facility] [address] [facility] [id number] [address] [place] [address] Nov, Right ankle pain M25.571 [facility] [address] [id number] [address] [place] [address] Oct, Right ankle pain M25.571 [facility] [address] [facility] [id number] [address] [place] [address] Oct, [facility] [address] [facility] [id number] [address] [place] [phone] Oct, [facility] [address] [facility] [id number] [address] [place] [address] Sep, [facility] [address] [facility] [id number] [address] [place] [address] Sep, Hypertension I10 [facility] [address] [facility] [id number] [address] [place] [address] Sep, Chronic kidney disease N18.9 ; Right ankle pain M25.571 and GERD (gastroesophageal reflux disease) K21.9 [facility] [address] [facility] [id number] [address] [place] [phone] Jul, [facility] [address] [facility] [id number] [address] [place] [address] Jul, Encounter for immunization Z 23 ; Venous insufficiency I87.2 and Diabetic polyneuropathy associated with type 2 diabetes mellitus E11.42 [facility] [address] [facility] [id number] [address] [place] [phone] Jul, [facility] [address] [place] [id number] [address] [place] [address] Jul, Diabetes mellitus E11.9 [facility] [address] [id number] [address] [place] [address] May, [facility] [address] [id number] [address] [place] [phone] Apr, [facility] [address] [id number] [address] [place] [address] Mar, Right ankle pain M25.571 [facility] [address] [id number] [address] [place] [address] Mar, [facility] [address] [id number] [address] [place] [phone] February, Paresthesias R20.2 [facility] [address] [id number] [address] [place] [phone] February, [facility] [address] [id number] [address] [place] [address] February, 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 [facility] [address] [id number] [address] [place] [phone] February, Diabetes mellitus E11.9 [facility] [address] [id number] [address] [place] [phone] February, [facility] [address] [id number] [address] [place] [address] February, Polyneuropathy in diabetes 3 57.2 and Paresthesias R20.2 [facility] [address] [id number] [address] [place] [address] February, [facility] [address] [id number] [address] [place] [phone] February, [facility] [address] [id number] [address] [place] [phone] February, [facility] [address] [id number] [address] [place] [address] February, Diabetes mellitus E11.9 [facility] [address] [facility] [id number] [address] [place] [address] February, [facility] [address] [address] February, Hyperkalemia E87.5 [facility] [address] [address] Jan, Hypertension I10 [facility] [address] [address] Jan, Insomnia G47.00 [facility] [address] [address] Jan, [facility] [address] [address] Jan, [facility] [address] [address] Jan, [facility] [address] [address] Dec, Right ankle pain M25.571 [place] [address] [address] Dec, GERD (gastroesophageal reflu x disease) K21.9 [facility] [address] [address] Dec, Insomnia G47.00 [facility] [address] [address] Dec, Hypertension I10 and Hyperka lemia 276.7 [facility] [address] [address] Dec, Chronic kidney disease N18.9 [facility] [address] [place] [id number] [address] [place] [address] Dec, [facility] [address] [address] Dec, Hyperkalemia E87.5 [facility] [address] [id number] [address] [place] [address] Dec, Chronic kidney disease N18.9 and Right ankle pain M25.571 [facility] [address] [id number] [address] [place] [phone] 11 Nov, 2015 GERD (gastroesophageal reflu x disease) K21.9 [facility] [address] [id number] [address] [place] [address] Nov, Right ankle pain M25.571 [facility] [address] [id number] [address] [place] [address] Nov, Diabetes mellitus E11.9 [facility] [address] [id number] [address] [place] [phone] Oct, [facility] [address] [id number] [address] [place] [phone] Oct, [facility] [address] [id number] [address] [place] [phone] Oct, [facility] [address] [id number] [address] [place] [phone] Oct, Hyperkalemia E87.5 [facility] [address] [id number] [address] [place] [phone] Oct, [facility] [address] [id number] [address] [place] [phone] Oct, Hyperkalemia E87.5 [facility] [address] [id number] [address] [place] [phone] Sep, [facility] [address] [facility] [id number] [address] [place] [phone] Sep, [facility] [address] [id number] [address] [place] [phone] Sep, [facility] [address] [facility] [id number] [address] [place] [phone] Sep, [facility] [address] [facility] [id number] [address] [place] [id number] Sep, Right ankle pain M25.571 [facility] [address] [facility] [id number] [address] [place] [id number] Aug, Chronic kidney disease N18.9 [facility] [address] [facility] [id number] [address] [place] [phone] Aug, [facility] [address] [facility] [id number] [address] [place] [id number] Aug, Hyperkalemia E87.5 [facility] [address] [place] [id number] [address] [place] [phone] Aug, [facility] [address] [place] [place] [id number] [address] [place] [id number] Jul, [facility] [address] [place] [place] [id number] [address] [place] [phone] Jul, [facility] [address] [place] [place] [id number] [address] [place] [phone] Jul, [facility] [address] [place] [place] [id number] [address] [place] [phone] Jul, Diabetes mellitus E11.9 ; En counter for immunization Z23 ; Hypertension I10 and Hyperkalemia E87.5 [facility] [address] [facility] [id number] [address] [place] [phone] Jul, [facility] [address] [facility] [id number] [address] [place] [id number] Jul, Hyperkalemia E87.5 [facility] [address] [place] [id number] [address] [place] [phone] Jul, Hyperkalemia E87.5 [facility] [address] [place] [place] [id number] [address] [place] [id number] Jun, [facility] [address] [id number] [place] [address], [place] [address] Jun, [facility] [address] [id number] [address] [place] [address], [place] [address] 15 Jun, 2015 [facility] [address] [id number] [address] [place] [address], [place] [address] Jun, [facility] [address] [id number] [address] [place] [address], [place] [address] May, [facility] [address] [id number] [address] [place] [address], [place] [address] May, [facility] [address] [id number] [address] [place] [address], [place] [address] May, [facility] [address] [id number] [address] [place] [address], [place] [address] May, Hyperkalemia 276.7 [facility] [address] [id number] [address] [place] [address], [place] [address] May, [facility] [address] [id number] [address] [place] [address], [place] [address] Apr, Hyperkalemia 276.7 [facility] [address] [id number] [address] [place] [address], [place] [address] Apr, [facility] [address] [id number] [address] [place] [address], [place] [address] Apr, [facility] [address] [id number] [address] [place] [address], [place] [address] Apr, [facility] [address] [id number] [address] [place] [address], [place] [address] Apr, [facility] [address] [id number] [address] [place] [address], [place] [address] Apr, Hyperkalemia 276.7 [facility] [address] [id number] [address] [place] [address], [place] [address] Apr, [facility] [address] [id number] [address] [place] [address] Apr, [facility] [address] [id number] [address] [place] [address] Mar, [facility] [address] [id number] [address] [place] [id number] Mar, Hyperkalemia 276.7 [facility] [address] [id number] [address] [place] [address] Mar, Hyperkalemia 276.7 [facility] [address] [id number] [address] [place] [id number] Mar, [facility] [address] [id number] [address] [place] [phone] Mar, [facility] [address] [id number] [address] [place] [phone] Mar, [facility] [address] [id number] [address] [place] [phone] Mar, [facility] [address] [id number] [address] [place] [id number] Mar, Anserine bursitis 726.61 [facility] [address] [id number] [address] [place] [id number] Mar, Asthma 493.90 and Hyperkalem ia 276.7 [facility] [address] [id number] [address] [place] [address] Mar, [facility] [address] [id number] [address] [place] [id number] February, [facility] [address] [id number] [address] [place] [phone] February, [facility] [address] [id number] [address] [place] [phone] February, [facility] [address] [id number] [address] [place] [address], [place] [address] February, [facility] [address] [id number] [address] [place] [address], [place] [address] February, [facility] [address] [id number] [address] [place] [address], [place] [address] February, [facility] [address] [id number] [address] [place] [address], [place] [address] February, [facility] [address] [id number] [address] [place] [address], [place] [address] February, [facility] [address] [id number] [address] [place] [address], [place] [address] February, [facility] [address] [id number] [address] [place] [address], [place] [address] Jan, [facility] [address] [id number] [address] [place] [address], [place] [address] Jan, [facility] [address] [id number] [address] [place] [address], [place] [address] Dec, [facility] [address] [id number] [address] [place] [address], [place] [address] Dec, [facility] [address] [id number] [address] [place] [address], [place] [address] Dec, [facility] [address] [id number] [address] [place] [address], [place] [address] Dec, [facility] [address] [id number] [address] [place] [address], [place] [address] Dec, [facility] [address] [id number] [address] [place] [address], [place] [address] Dec, [facility] [address] [id number] [address] [place] [address], [place] [address] Dec, [facility] [address] [id number] [address] [place] [address], [place] [address] Dec, [facility] [address] [id number] [address] [place] [address], [place] [address] Dec, [facility] [address] [id number] [address] [place] [address], [place] [address] Dec, [facility] [address] [id number] [address] [place] [address], [place] [address] Dec, [facility] [address] [id number] [address] [place] [address], [place] [address] Dec, [facility] [address] [id number] [address] [place] [address], [place] [address] Dec, [facility] [address] [id number] [address] [place] [address], [place] [address] Dec, [facility] [address] [id number] [address] [place] [address], [place] [address] Nov, [facility] [address] [id number] [address] [place] [address], [place] [address] Nov, [facility] [address] [id number] [address] [place] [address], [place] [address] Nov, [facility] [address] [id number] [address] [place] [address], [place] [address] Nov, [facility] [address] [id number] [address] [place] [address], [place] [address] Nov, [facility] [address] [id number] [address] [place] [address], [place] [address] Nov, [facility] [address] [id number] [address] [place] [address], [place] [address] Oct, [facility] [address] [id number] [address] [place] [address], [place] [address] Oct, [facility] [address] [id number] [address] [place] [address], [place] [address] Oct, [facility] [address] [id number] [address] [place] [address], [place] [address] 13 Oct, 2014 [facility] [address] [id number] [address] [place] [address], [place] [address] Oct, [facility] [address] [id number] [address] [place] [address], [place] [address] Oct, [facility] [address] [id number] [address] [place] [address], [place] [address] 30 Sep, 2014 [facility] [address] [id number] [address] [place] [address], [place] [address] 30 Sep, 2014 [facility] [address] [id number] [address] [place] [address], [place] [address] 16 Sep, 2014 [facility] [address] [id number] [address] [place] [address], [place] [address] 16 Sep, 2014 [facility] [address] [id number] [address] [place] [address], [place] [address] 16 Sep, 2014 [facility] [address] [id number] [address] [place] [address], [place] [address] Sep, [facility] [address] [id number] [address] [place] [address], [place] [address] Aug, [facility] [address] [id number] [address] [place] [address], [place] [address] Aug, [facility] [address] [id number] [address] [place] [address], [place] [address] Aug, [facility] [address] [id number] [address] [place] [address], [place] [address] Aug, [facility] [address] [id number] [address] [place] [address], [place] [address] Aug, [facility] [address] [id number] [address] [place] [address], [place] [address] Aug, [facility] [address] [id number] [address] [place] [address], [place] [address] 30 Jul, 2014 [facility] [address] [id number] [address] [place] [address], [place] [address] Jul, [facility] [address] [id number] [address] [place] [address], [place] [address] Jul, [facility] [address] [id number] [address] [place] [address], [place] [address] Jul, [facility] [address] [id number] [address] [place] [address], [place] [address] Jul, [facility] [address] [id number] [address] [place] [address], [place] [address] Jul, [facility] [address] [id number] [address] [place] [address], [place] [address] Jul, [facility] [address] [id number] [address] [place] [address], [place] [address] Jul, [facility] [address] [id number] [address] [place] [address], [place] [address] Jul, [facility] [address] [id number] [address] [place] [address], [place] [address] Jul, [facility] [address] [id number] [address] [place] [address], [place] [address] Jul, [facility] [address] [id number] [address] [place] [address], [place] [address] Jun, [facility] [address] [id number] [address] [place] [address], [place] [address] Jun, [facility] [address] [id number] [address] [place] [address], [place] [address] Jun, [facility] [address] [id number] [address] [place] [address], [place] [address] Jun, [facility] [address] [id number] [address] [place] [address], [place] [address] Apr, [facility] [address] [id number] [address] [address] Apr, [facility] [address] [id number] [address] [place] [address] Apr, [facility] [address] [id number] [address] [place] [address] Apr, [facility] [address] [id number] [address] [place] [address] Mar, [facility] [address] [id number] [address] [place] [id number] Mar, [facility] [address] [id number] [address] [place] [id number] Mar, [facility] [address] [id number] [address] [place] [id number] Mar, [facility] [address] [id number] [address] [place] [address] Mar, [facility] [address] [id number] [address] [place] [id number] Sep, [facility] [address] [id number] [address] [place] [address] Sep, [facility] [address] [id number] [address] [place] [phone] Aug, IMMUNIZATIONS No Known Immunizations SOCIAL HISTORY Never Assessed REASON FOR VISIT EMR-[facility] PLAN OF CARE VITAL SIGNS MEDICATIONS Medication Instructions Dosage Frequency Start Date End Date Duration S tatus Protonix 40 mg 1 tablet by Oral route 1 time per day Oct, Active Wheelchair DX Non-healing right ankle fracture Jul, 014 Active Folic Acid 1 mg 1 tablet by Oral route 1 time per day Jul, Active Ambien 5 mg 1 tablet by Oral route 1 time per day PRN Dec, Active Humalog KwikPen 100 unit/mL inject 5 Uni ts by Subcutaneous route as per insulin sliding scale protocol 3 times per day Jul, Active Levemir FlexTouch 100 unit/mL (3 mL) 10 Units by Subcutaneous route 1 time per day Jul, Active MiraLax 17 gram/dose take 17 g mixed wit h 8 oz. water or juice by Oral route 1 time per day Aug, Active Calcium Carbonate 300 mg (750 mg) 1 Tablet by Oral rou te 1 time per day Jul, Active Bethanechol Chloride 25 mg 1 tablet by Oral route 3 ti mes per day Jul, Active Kayexalate 15 Grams by Oral route 2 times per day Dec Active Zofran ODT 4 mg take 1 tablets by Or al route every 8 hours PRN Nausea or Vomiting Sep, Active oxycodone 5 mg take 1-2 tablet by O ral route as needed every 4 hours PRN pain Dec, Active Cymbalta 60 mg take 1 capsule (60 mg) by oral route once d aily Jul, Active Furosemide 20 mg 1 tablet by Oral route 1 time per day 1 Sep, Active RESULTS No Results PROCEDURES No [...] V C oct 2016 [facility] [facility] Hospitalization History fistula in left arm 07/2018
--- OUTSIDE RECORDS SUMMARY | 2020-04-01 19:32 | XMS REPORT ---
Author Author Josephine Veras Doctor Organization [facility] Address Unknown Phone Unavailable Care Team Providers Care Senior Bioinformatics Scientist Name Role Phone Migration, Doctor Unavailable Unavailable PROBLEMS Type Condition ICD9-CM Code IZR34-QD Code Onset Dates Condition S tatus SNOMED Code Problem Diabetes mellitus E11.9 Active 73 098205 Problem Hypertension I10 Active 1365064 3 Problem Paresthesias R20.2 Active 2813173 4 Problem Chronic kidney disease N18.9 Active 934759835 Problem Venous insufficiency I87.2 Active 58213393 Problem Diabetic polyneuropathy associated with type 2 d iabetes mellitus E11.42 Active 01317068 Problem Type 2 diabetes mellitus with diabetic autonomic (poly)neuropathy E11.43 Active 867527505 Problem Chronic skin ulcer with fat layer exposed L98.492 Active 47935175 Problem Chronic osteomyelitis of right foot with draining sinus M86.471 Active 202535605478704 Problem PAD (peripheral artery disease) I73.9 Active 595301611 Problem Gastroparesis K31.84 Active 113052 006 Problem Seasonal allergic rhinitis due to other allergic trigger J30.89 Active 480480205 Problem GERD (gastroesophageal reflux disease) K21.9 Active 089427522 Problem Type 2 diabetes mellitus with foot ulcer E11.621 Active 81601940115958 Problem 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 Active 952287777 Problem Pressure ulcer of unspecified heel, stage 4 L89.60 4 Active 257569749 Problem Unsteady gait R26.81 Active 214014 08 ALLERGIES No Information ENCOUNTERS Encounter Location Date Diagnosis [facility] [address] [facility] [id number] [address] [place] [address] February, [facility] [address] [facility] [id number] [address] [place] [address] February, [facility] [address] [facility] [id number] [address] [place] [address] February, Encounter for medication mon itoring Z51.81 [facility] [address] [id number] [address] [place] [address] February, [facility] [address] [facility] [id number] [address] [place] [address] February, [facility] [address] [facility] [id number] [address] [place] [address] February, [facility] [address] [facility] [id number] [address] [place] [address] Jan, Chronic skin ulcer with fat layer exposed L98.492 [facility] [address] [facility] [id number] [address] [place] [address] Jan, [facility] [address] [facility] [id number] [address] [place] [address] Dec, [facility] [address] [facility] [id number] [address] [place] [address] Dec, Diabetic polyneuropathy asso ciated with type 2 diabetes mellitus E11.42 and PAD (peripheral artery disease) I73.9 [facility] [address] [facility] [id number] [address] [place] [address] Dec, Chronic skin ulcer with fat layer exposed L98.492 [facility] [address] [facility] [id number] [address] [place] [address] Dec, [facility] [address] [facility] [id number] [address] [place] [address] Nov, [facility] [address] [facility] [id number] [address] [place] [address] Nov, Skin ulcer of right foot wit h fat layer exposed L97.512 [facility] [address] [facility] [id number] [address] [place] [address] Oct, [facility] [address] [facility] [id number] [address] [place] [address] Oct, Skin ulcer of right foot wit h fat layer exposed L97.512 [facility] [address] [id number] [address] [place] [address] 27 Sep, 2018 Diabetes mellitus E11.9 [facility] [address] [id number] [address] [place] [address] Sep, [facility] [address] [id number] [address] [place] [address] Sep, [facility] [address] [id number] [address] [place] [address] 17 Sep, 2018 [facility] [address] [id number] [address] [place] [address] 14 Sep, 2018 Type 2 diabetes mellitus wit h foot ulcer E11.621 and Skin ulcer of right foot with fat layer exposed L97.512 [facility] [address] [id number] [address] [place] [address] 13 Sep, 2018 Diabetes mellitus E11.9 [facility] [address] [id number] [address] [place] [address] Sep, [facility] [address] [id number] [address] [place] [address] Aug, [facility] [address] [id number] [address] [place] [address] Aug, [facility] [address] [id number] [address] [place] [address] Aug, 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 [facility] [address] [id number] [address] [place] [address] Aug, [facility] [address] [id number] [address] [place] [address] 16 Aug, 2018 [facility] [address] [id number] [address] [place] [address] 09 Aug, 2018 Bronchitis J40 [facility] [address] [id number] [address] [place] [address] Aug, [facility] [address] [id number] [address] [place] [address] Jul, [facility] [address] [facility] [id number] [address] [place] [address] Jul, Chronic skin ulcer with fat layer exposed L98.492 [facility] [address] [id number] [address] [place] [address] Jul, 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 [facility] [address] [id number] [address] [place] [address] Jun, [facility] [address] [facility] [id number] [address] [place] [address] Jun, [facility] [address] [id number] [address] [place] [address] May, [facility] [address] [id number] [address] [place] [address] May, Chronic skin ulcer with fat layer exposed L98.492 [facility] [address] [id number] [address] [place] [address] Apr, [facility] [address] [facility] [id number] [address] [place] [address] Apr, Type 2 diabetes mellitus wit h foot ulcer E11.621 and Unsteady gait R26.81 [facility] [address] [id number] [address] [place] [address] Mar, Decubitus ulcer of right mariana l, stage 3 L89.613 [facility] [address] [facility] [id number] [address] [place] [address] Mar, [facility] [address] [facility] [id number] [address] [place] [address] Mar, Pressure ulcer of unspecifie d heel, stage 4 L89.604 and Type 2 diabetes mellitus with foot ulcer E11.621 [facility] [address] [facility] [id number] [address] [place] [address] Mar, Encounter for medication mon itoring Z51.81 [facility] [address] [facility] [id number] [address] [place] [address] Mar, Type 2 diabetes mellitus wit h foot ulcer E11.621 and Non-pressure chronic ulcer of right heel and midfoot with unspecified severity L97.419 [facility] [address] [facility] [id number] [address] [place] [address] February, [facility] [address] [place] [id number] [address] [place] [address] Jan, Right ankle pain M25.571 [facility] [address] [place] [id number] [address] [place] [address] Dec, Right ankle pain M25.571 [facility] [address] [place] [id number] [address] [place] [address] Dec, [facility] [address] [place] [id number] [address] [place] [address] Dec, [facility] [address] [place] [id number] [address] [place] [address] Dec, Right ankle pain M25.571 [facility] [address] [place] [id number] [address] [place] [address] Dec, Chronic skin ulcer with fat layer exposed L98.492 ; Type 2 diabetes mellitus with diabetic autonomic (poly)neuropathy E11.43 and Hypertension I10 [facility] [address] [facility] [id number] [address] [place] [address] Nov, [facility] [address] [place] [id number] [address] [place] [address] Nov, [facility] [address] [place] [id number] [address] [place] [address] Nov, [facility] [address] [place] [id number] [place] [address] Nov, Right ankle pain M25.571 and Chronic osteomyelitis of right foot with draining sinus M86.471 [facility] [address] [id number] [address] [place] [address] Oct, Right ankle pain M25.571 [facility] [address] [id number] [address] [place] [address] Oct, [facility] [address] [id number] [address] [place] [address] Sep, Diabetes mellitus E11.9 [facility] [address] [facility] [id number] [address] [place] [address] Sep, Diabetic polyneuropathy asso ciated with type 2 diabetes mellitus E11.42 and Venous insufficiency I87.2 [facility] [address] [id number] [address] [place] [address] Sep, Right ankle pain M25.571 [facility] [address] [id number] [address] [place] [address] Aug, Right ankle pain M25.571 [facility] [address] [id number] [address] [place] [address] Aug, Chronic osteomyelitis of rig ht foot with draining sinus M86.471 [facility] [address] [id number] [address] [place] [address] Aug, [facility] [address] [id number] [address] [place] [address] Aug, [facility] [address] [id number] [address] [place] [address] Aug, Chronic osteomyelitis of rig ht foot with draining sinus M86.471 [facility] [address] [id number] [address] [place] [address] Jul, [facility] [address] [id number] [address] [place] [address] Jul, [facility] [address] [facility] [id number] [address] [place] [address] Jul, Chronic kidney disease N18.9 [facility] [address] [facility] [id number] [address] [place] [address] Jul, Right ankle pain M25.571 [facility] [address] [facility] [id number] [address] [place] [address] Jul, Non-healing ulcer of right f oot, unspecified ulcer stage L97.519 [facility] [address] [facility] [id number] [address] [place] [address] Jul, Chronic skin ulcer with fat layer exposed L98.492 [place] [address] [facility] [id number] [address] [place] [address] Jul, Deformity of right ankle nitza nt M21.961 [place] [address] [place] [id number] [address] [place] [address] Jun, [facility] [address] [facility] [id number] [address] [place] [address] Jun, Diabetes mellitus E11.9 ; Sk in ulcer of right foot with fat layer exposed L97.512 and Encounter for immunization Z23 [facility] [address] [facility] [id number] [address] [place] [address] Jun, Right ankle pain M25.571 [place] [address] [facility] [id number] [address] [place] [address] May, Right ankle pain M25.571 [facility] [address] [facility] [id number] [address] [place] [address] Apr, Right ankle pain M25.571 [facility] [address] [facility] [id number] [address] [place] [address] Mar, Right ankle pain M25.571 [facility] [address] [facility] [id number] [address] [place] [address] Mar, [facility] [address] [facility] [id number] [address] [place] [address] February, Diabetes mellitus E11.9 and Diabetic polyneuropathy associated with type 2 diabetes mellitus E11.42 [facility] [address] [facility] [id number] [address] [place] [address] February, Hyperkalemia E87.5 [facility] [address] [facility] [id number] [address] [place] [address] February, Right ankle pain M25.571 [facility] [address] [facility] [id number] [address] [place] [address] Jan, Right ankle pain M25.571 [facility] [address] [facility] [id number] [address] [place] [address] Dec, Right ankle pain M25.571 [place] [address] [place] [id number] [address] [place] [address] Dec, Right ankle pain M25.571 [facility] [address] [facility] [id number] [address] [place] [address] Nov, [facility] [address] [place] [id number] [address] [place] [address] Nov, Diabetes mellitus E11.9 ; Hy pertension I10 ; Gastroparesis K31.84 and Type 2 diabetes mellitus with diabetic autonomic (poly)neuropathy E11.43 [facility] [address] [facility] [id number] [address] [place] [address] Nov, Right ankle pain M25.571 [facility] [address] [facility] [id number] [address] [place] [address] Oct, Right ankle pain M25.571 [facility] [address] [facility] [id number] [address] [place] [address] Oct, [facility] [address] [place] [id number] [address] [place] [address] Oct, [facility] [address] [id number] [address] [place] [address] Sep, [facility] [address] [facility] [id number] [address] [place] [address] Sep, Hypertension I10 [facility] [address] [facility] [id number] [address] [place] [address] Sep, Chronic kidney disease N18.9 ; Right ankle pain M25.571 and GERD (gastroesophageal reflux disease) K21.9 [facility] [address] [id number] [address] [place] [address] Jul, [facility] [address] [facility] [id number] [address] [place] [address] Jul, Encounter for immunization Z 23 ; Venous insufficiency I87.2 and Diabetic polyneuropathy associated with type 2 diabetes mellitus E11.42 [facility] [address] [facility] [id number] [address] [place] [address] Jul, [facility] [address] [facility] [id number] [address] [place] [address] Jul, Diabetes mellitus E11.9 [facility] [address] [facility] [id number] [address] [place] [address] May, [facility] [address] [facility] [id number] [address] [place] [address] Apr, [facility] [address] [id number] [address] [place] [address] Mar, Right ankle pain M25.571 [facility] [address] [facility] [id number] [address] [place] [address] Mar, [facility] [address] [facility] [id number] [address] [place] [address] February, Paresthesias R20.2 [facility] [address] [facility] [id number] [address] [place] [address] February, [facility] [address] [id number] [address] [place] [address] February, 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 [facility] [address] [id number] [address] [place] [address] February, Diabetes mellitus E11.9 [facility] [address] [id number] [address] [place] [address] February, [facility] [address] [id number] [address] [place] [address] February, Polyneuropathy in diabetes 3 57.2 and Paresthesias R20.2 [facility] [address] [id number] [address] [place] [address] February, [facility] [address] [id number] [address] [place] [address] February, [facility] [address] [id number] [address] [place] [address] February, [facility] [address] [id number] [address] [place] [address] February, Diabetes mellitus E11.9 [facility] [address] [id number] [address] [place] [address] February, [facility] [address] [facility] [id number] [address] [place] [address] February, Hyperkalemia E87.5 [facility] [address] [id number] [address] [place] [address] Jan, Hypertension I10 [facility] [address] [id number] [address] [place] [address] Jan, Insomnia G47.00 [facility] [address] [facility] [id number] [address] [place] [address] Jan, [facility] [address] [id number] [address] [place] [address] Jan, [facility] [address] [facility] [id number] [address] [place] [address] Jan, [facility] [address] [address] Dec, Right ankle pain M25.571 [facility] [address] [place] [id number] [address] [place] [address] Dec, GERD (gastroesophageal reflu x disease) K21.9 [facility] [address] [place] [id number] [place] [address] Dec, Insomnia G47.00 [place] [address] [address] Dec, Hypertension I10 and Hyperka lemia 276.7 [place] [address] [address] Dec, Chronic kidney disease N18.9 [place] [address] [address] Dec, [facility] [address] [address] Dec, Hyperkalemia E87.5 [place] [address] [place] [id number] [place] [address] Dec, Chronic kidney disease N18.9 and Right ankle pain M25.571 [place] [address] [place] [id number] [address] [place] [address] 11 Nov, 2015 GERD (gastroesophageal reflu x disease) K21.9 [facility] [address] [facility] [id number] [address] [place] [address] Nov, Right ankle pain M25.571 [place] [address] [place] [id number] [place] [address] 03 Nov, 2015 Diabetes mellitus E11.9 [place] [address] [place] [id number] [address] [place] [address] Oct, [facility] [address] [id number] [address] [place] [address] Oct, [facility] [address] [id number] [address] [place] [address] Oct, [facility] [address] [id number] [address] [place] [address] Oct, Hyperkalemia E87.5 [facility] [address] [id number] [address] [place] [address] Oct, [facility] [address] [id number] [address] [place] [address] Oct, Hyperkalemia E87.5 [facility] [address] [id number] [address] [place] [address], [place] [address] Sep, [facility] [address] [id number] [address] [place] [address] Sep, [facility] [address] [id number] [address] [place] [address] Sep, [facility] [address] [id number] [address] [place] [address] Sep, [facility] [address] [id number] [address] [place] [address] Sep, Right ankle pain M25.571 [facility] [address] [id number] [address] [place] [address] 30 Aug, 2015 Chronic kidney disease N18.9 [facility] [address] [id number] [address] [place] [address], [place] [address] Aug, [facility] [address] [id number] [address] [place] [address] Aug, Hyperkalemia E87.5 [facility] [address] [id number] [address] [place] [address] Aug, [facility] [address] [id number] [address] [place] [address] Jul, [facility] [address] [id number] [address] [place] [address] Jul, [facility] [address] [id number] [address] [place] [address] Jul, [facility] [address] [id number] [address] [place] [address] Jul, Diabetes mellitus E11.9 ; En counter for immunization Z23 ; Hypertension I10 and Hyperkalemia E87.5 [facility] [address] [id number] [address] [place] [address] Jul, [facility] [address] [id number] [address] [place] [address] Jul, Hyperkalemia E87.5 [facility] [address] [id number] [address] [place] [address] Jul, Hyperkalemia E87.5 [facility] [address] [id number] [address] [place] [id number] Jun, [facility] [address] [id number] [address] [place] [phone] Jun, [facility] [address] [id number] [address] [place] [phone] 15 Jun, 2015 [facility] [address] [id number] [address] [place] [phone] Jun, [facility] [address] [id number] [address] [place] [id number] May, [facility] [address] [id number] [address] [place] [phone] May, [facility] [address] [id number] [address] [place] [id number] May, [facility] [address] [id number] [address] [place] [phone] May, Hyperkalemia 276.7 [facility] [address] [id number] [address] [place] [address], [place] [phone] May, [facility] [address] [id number] [address] [place] [address], [place] [id number] Apr, Hyperkalemia 276.7 [facility] [address] [id number] [address] [place] [address], [place] [address] Apr, [facility] [address] [id number] [address] [place] [address], [place] [phone] Apr, [facility] [address] [id number] [address] [place] [address], [place] [id number] Apr, [facility] [address] [id number] [address] [place] [address], [place] [id number] Apr, [facility] [address] [id number] [address] [place] [address], [place] [id number] Apr, Hyperkalemia 276.7 [facility] [address] [id number] [address] [place] [address], [place] [id number] Apr, [facility] [address] [id number] [address] [place] [address] Apr, [facility] [address] [id number] [address] [place] [address], [place] [address] Mar, [facility] [address] [id number] [address] [place] [address] Mar, Hyperkalemia 276.7 [facility] [address] [id number] [address] [place] [address], [place] [address] Mar, Hyperkalemia 276.7 [facility] [address] [id number] [address] [place] [address], [place] [address] Mar, [facility] [address] [id number] [address] [place] [address], [place] [address] Mar, [facility] [address] [id number] [address] [place] [address] Mar, [facility] [address] [id number] [address] [place] [address] Mar, [facility] [address] [id number] [address] [place] [address] Mar, Anserine bursitis 726.61 [facility] [address] [id number] [address] [place] [address] Mar, Asthma 493.90 and Hyperkalem ia 276.7 [facility] [address] [id number] [address] [place] [phone] Mar, [facility] [address] [id number] [address] [place] [id number] February, [facility] [address] [id number] [address] [place] [address] February, [facility] [address] [id number] [address] [place] [address] February, [facility] [address] [id number] [address] [place] [address] February, [facility] [address] [id number] [address] [place] [address] February, [facility] [address] [id number] [address] [place] [address] February, [facility] [address] [id number] [address] [place] [phone] February, [facility] [address] [id number] [address] [place] [address] February, [facility] [address] [id number] [address] [place] [address] February, [facility] [address] [id number] [address] [place] [phone] Jan, [facility] [address] [id number] [facility] [place] [address] Jan, [facility] [address] [id number] [facility] [place] [address] Dec, [facility] [address] [id number] [facility] [place] [address] Dec, [facility] [address] [id number] [address] [place] [address], [place] [address] Dec, [facility] [address] [id number] [address] [place] [address], [place] [address] Dec, [facility] [address] [id number] [address] [place] [address], [place] [address] Dec, [facility] [address] [id number] [address] [place] [address], [place] [address] Dec, [facility] [address] [id number] [address] [place] [address], [place] [address] Dec, [facility] [address] [id number] [address] [place] [address], [place] [address] Dec, [facility] [address] [id number] [address] [place] [address], [place] [address] Dec, [facility] [address] [id number] [address] [place] [address], [place] [address] Dec, [facility] [address] [id number] [address] [place] [address], [place] [address] Dec, [facility] [address] [id number] [address] [place] [address], [place] [address] Dec, [facility] [address] [id number] [address] [place] [address], [place] [address] 10 Dec, 2014 [facility] [address] [id number] [address] [place] [address], [place] [address] 10 Dec, 2014 [facility] [address] [id number] [address] [place] [address], [place] [address] Nov, [facility] [address] [id number] [address] [place] [address], [place] [address] Nov, [facility] [address] [id number] [address] [place] [address], [place] [address] Nov, [facility] [address] [id number] [address] [place] [address], [place] [address] Nov, [facility] [address] [id number] [address] [place] [address], [place] [address] Nov, [facility] [address] [id number] [address] [place] [address], [place] [address] Nov, [facility] [address] [id number] [address] [place] [address], [place] [address] Oct, [facility] [address] [id number] [address] [place] [address], [place] [address] Oct, [facility] [address] [id number] [address] [place] [address], [place] [address] Oct, [facility] [address] [id number] [address] [place] [address], [place] [address] Oct, [facility] [address] [id number] [address] [place] [address], [place] [address] Oct, [facility] [address] [id number] [address] [place] [address], [place] [address] Oct, [facility] [address] [id number] [address] [place] [address], [place] [address] Sep, [facility] [address] [id number] [address] [place] [address], [place] [address] Sep, [facility] [address] [id number] [address] [place] [address], [place] [address] Sep, [facility] [address] [id number] [address] [place] [address], [place] [address] Sep, [facility] [address] [id number] [address] [place] [address], [place] [address] Sep, [facility] [address] [id number] [address] [place] [address], [place] [address] Sep, [facility] [address] [id number] [address] [place] [address], [place] [address] Aug, [facility] [address] [id number] [address] [place] [address], [place] [address] Aug, [facility] [address] [id number] [address] [place] [address], [place] [address] Aug, [facility] [address] [id number] [address] [place] [address], [place] [address] Aug, [facility] [address] [id number] [address] [place] [address], [place] [address] Aug, [facility] [address] [id number] [address] [place] [address], [place] [address] Aug, [facility] [address] [id number] [address] [place] [address], [place] [address] Jul, [facility] [address] [id number] [address] [place] [address], [place] [address] Jul, [facility] [address] [id number] [address] [place] [address], [place] [address] Jul, [facility] [address] [id number] [address] [place] [address], [place] [address] Jul, [facility] [address] [id number] [address] [place] [address], [place] [address] Jul, [facility] [address] [id number] [address] [place] [address], [place] [address] Jul, [facility] [address] [id number] [address] [place] [address], [place] [address] Jul, [facility] [address] [id number] [address] [place] [address], [place] [address] Jul, [facility] [address] [id number] [address] [place] [address], [place] [address] Jul, [facility] [address] [id number] [address] [place] [address], [place] [address] Jul, [facility] [address] [id number] [address] [place] [address], [place] [address] Jul, [facility] [address] [id number] [address] [place] [address], [place] [address] Jun, [facility] [address] [id number] [address] [place] [address], [place] [address] Jun, [facility] [address] [id number] [address] [place] [address], [place] [address] Jun, [facility] [address] [id number] [address] [place] [address], [place] [address] Jun, [facility] [address] [id number] [address] [place] [address], [place] [address] Apr, [facility] [address] [id number] [address] [place] [address], [place] [address] Apr, [facility] [address] [id number] [address] [place] [address], [place] [address] Apr, [facility] [address] [id number] [address] [place] [address], [place] [address] Apr, [facility] [address] [id number] [address] [place] [address], [place] [address] Mar, [facility] [address] [id number] [address] [place] [address], [place] [address] Mar, [facility] [address] [id number] [address] [place] [address], [place] [address] Mar, [facility] [address] [id number] [address] [place] [address], [place] [address] Mar, [facility] [address] [id number] [address] [place] [address] 14 Mar, 2014 [facility] [address] [facility] [id number] [address] [place] [address] Sep, [facility] [address] [facility] [id number] [address] [place] [address] Sep, [facility] [address] [facility] [id number] [address] [place] [address] Aug, IMMUNIZATIONS No Known Immunizations SOCIAL HISTORY Never Assessed REASON FOR VISIT EMR-[facility] [place] PLAN OF CARE VITAL SIGNS MEDICATIONS Unknown [...] V C oct 2016 Hospitalization History Pneumonia [facility]- [facility] 06/2018 Hospitalization History fistula in left arm 07/2018
--- OUTSIDE RECORDS SUMMARY | 2020-04-01 19:33 | XMS REPORT ---
Author Author Josephine WILLIS Organization [facility] Address [address] [place] [address] Care Team Providers Care Senior Applications Developer Name Role Phone OLYA WILLIS Unavailable PROBLEMS Type Condition ICD9-CM Code [id number] Code Onset Dates Condition S tatus SNOMED Code Problem GERD (gastroesophageal reflux disease) K21.9 Active 639586375 Problem Type 2 diabetes mellitus with diabetic autonomic (poly)neuropathy E11.43 Active 925926920 Problem Gastroparesis K31.84 Active 311646 006 Problem Unsteady gait R26.81 Active 738735 08 Problem Pressure ulcer of unspecified heel, stage 4 L89.60 4 Active 272245043 Problem Chronic osteomyelitis of right foot with draining sinus M86.471 Active [id number] Problem Chronic skin ulcer with fat layer exposed L98.492 Active 85159583 Problem 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 Active 589014684 Problem Type 2 diabetes mellitus with foot ulcer E11.621 Active 20213327745102 Problem Chronic kidney disease N18.9 Active 727673791 Problem Paresthesias R20.2 Active 6085015 4 Problem Hypertension I10 Active 3704849 3 Problem Diabetic polyneuropathy associated with type 2 d iabetes mellitus E11.42 Active 89002394 Problem Diabetes mellitus E11.9 Active 73 263107 Problem Venous insufficiency I87.2 Active 54774322 ALLERGIES No Information ENCOUNTERS Encounter Location Date Diagnosis [facility] [address] [facility] [id number] [address] [place] [phone] Oct, [facility] [address] [facility] [id number] [address] [place] [phone] Sep, [facility] [address] [facility] [id number] [address] [place] [id number] Sep, Type 2 diabetes mellitus wit h foot ulcer E11.621 and Skin ulcer of right foot with fat layer exposed L97.512 [facility] [address] [id number] [address] [place] [phone] 13 Sep, 2018 Diabetes mellitus E11.9 [facility] [address] [id number] [address] [place] [id number] 07 Sep, 2018 [facility] [address] [id number] [address] [place] [phone] Aug, [facility] [address] [id number] [address] [place] [phone] Aug, [facility] [address] [id number] [address] [place] [id number] Aug, 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 [facility] [address] [id number] [address] [place] [phone] Aug, [facility] [address] [id number] [address] [place] [phone] Aug, [facility] [address] [facility] [id number] [address] [place] [phone] Aug, Bronchitis J40 [facility] [address] [facility] [id number] [address] [place] [phone] Aug, [facility] [address] [facility] [id number] [address] [place] [id number] Jul, [facility] [address] [id number] [address] [place] [id number] Jul, Chronic skin ulcer with fat layer exposed L98.492 [facility] [address] [facility] [id number] [address] [place] [id number] Jul, 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 [facility] [address] [facility] [id number] [address] [place] [phone] Jun, [place] [address] [facility] [id number] [address] [place] [phone] Jun, [place] [address] [facility] [id number] [address] [place] [id number] May, [place] [address] [facility] [id number] [address] [place] [id number] May, Chronic skin ulcer with fat layer exposed L98.492 [place] [address] [place] [id number] [address] [place] [id number] Apr, [place] [address] [place] [id number] [address] [place] [id number] Apr, Type 2 diabetes mellitus wit h foot ulcer E11.621 and Unsteady gait R26.81 [place] [address] [place] [id number] [address] [place] [phone] Mar, Decubitus ulcer of right mariana l, stage 3 L89.613 [place] [address] [place] [id number] [address] [place] [phone] Mar, [place] [address] [place] [id number] [place] [address] Mar, Pressure ulcer of unspecifie d heel, stage 4 L89.604 and Type 2 diabetes mellitus with foot ulcer E11.621 [place] [address] [place] [id number] [address] [place] [phone] Mar, Encounter for medication mon itoring Z51.81 [place] [address] [place] [id number] [address] [place] [phone] Mar, Type 2 diabetes mellitus wit h foot ulcer E11.621 and Non-pressure chronic ulcer of right heel and midfoot with unspecified severity L97.419 [place] [address] [facility] [id number] [address] [place] [phone] February, [place] [address] [place] [id number] [address] [place] [address] Jan, Right ankle pain M25.571 [facility] [address] [facility] [id number] [address] [place] [phone] Dec, Right ankle pain M25.571 [facility] [address] [facility] [id number] [address] [place] [phone] Dec, [facility] [address] [place] [id number] [address] [place] [phone] Dec, [facility] [address] [place] [id number] [address] [place] [id number] Dec, Right ankle pain M25.571 [facility] [address] [place] [id number] [place] [address] Dec, Chronic skin ulcer with fat layer exposed L98.492 ; Type 2 diabetes mellitus with diabetic autonomic (poly)neuropathy E11.43 and Hypertension I10 [facility] [address] [place] [id number] [address] [place] [phone] Nov, [facility] [address] [place] [id number] [address] [place] [phone] Nov, [facility] [address] [address] Nov, [facility] [address] [place] [id number] [place] [address] Nov, Right ankle pain M25.571 and Chronic osteomyelitis of right foot with draining sinus M86.471 [facility] [address] [facility] [id number] [address] [place] [phone] Oct, Right ankle pain M25.571 [facility] [address] [place] [id number] [address] [place] [phone] Oct, [facility] [address] [place] [id number] [address] [place] [id number] Sep, Diabetes mellitus E11.9 [facility] [address] [place] [id number] [place] [address] Sep, Diabetic polyneuropathy asso ciated with type 2 diabetes mellitus E11.42 and Venous insufficiency I87.2 [facility] [address] [id number] [address] [place] [phone] Sep, Right ankle pain M25.571 [facility] [address] [id number] [address] [place] [id number] Aug, Right ankle pain M25.571 [facility] [address] [id number] [address] [place] [phone] Aug, Chronic osteomyelitis of rig foot with draining sinus M86.471 [facility] [address] [id number] [address] [place] [id number] Aug, [facility] [address] [id number] [address] [place] [phone] Aug, [facility] [address] [id number] [address] [place] [phone] Aug, Chronic osteomyelitis of rig foot with draining sinus M86.471 [facility] [address] [id number] [address] [place] [phone] Jul, [facility] [address] [id number] [address] [place] [id number] Jul, [facility] [address] [id number] [address] [place] [id number] Jul, Chronic kidney disease N18.9 [facility] [address] [id number] [address] [place] [id number] Jul, Right ankle pain M25.571 [facility] [address] [id number] [address] [place] [id number] Jul, Non-healing ulcer of right f oot, unspecified ulcer stage L97.519 [facility] [address] [id number] [address] [place] [id number] Jul, Chronic skin ulcer with fat layer exposed L98.492 [facility] [address] [id number] [address] [place] [id number] 09 Jul, 2017 Deformity of right ankle nitza nt M21.961 [facility] [address] [id number] [address] [place] [phone] 27 Jun, 2017 [facility] [address] [id number] [address] [place] [id number] Jun, Diabetes mellitus E11.9 ; Sk in ulcer of right foot with fat layer exposed L97.512 and Encounter for immunization Z23 [facility] [address] [id number] [address] [place] [id number] 18 Jun, 2017 Right ankle pain M25.571 [facility] [address] [id number] [address] [place] [id number] May, Right ankle pain M25.571 [place] [address] [facility] [id number] [address] [place] [id number] Apr, Right ankle pain M25.571 [facility] [address] [id number] [address] [place] [phone] Mar, Right ankle pain M25.571 [facility] [address] [id number] [address] [place] [id number] Mar, [facility] [address] [id number] [address] [place] [phone] February, Diabetes mellitus E11.9 and Diabetic polyneuropathy associated with type 2 diabetes mellitus E11.42 [facility] [address] [id number] [address] [place] [phone] February, Hyperkalemia E87.5 [facility] [address] [id number] [address] [place] [id number] February, Right ankle pain M25.571 [facility] [address] [facility] [id number] [address] [place] [phone] Jan, Right ankle pain M25.571 [facility] [address] [id number] [address] [place] [phone] Dec, Right ankle pain M25.571 [facility] [address] [facility] [id number] [address] [place] [id number] Dec, Right ankle pain M25.571 [facility] [address] [facility] [id number] [address] [place] [phone] Nov, [facility] [address] [facility] [id number] [address] [place] [id number] Nov, Diabetes mellitus E11.9 ; Hy pertension I10 ; Gastroparesis K31.84 and Type 2 diabetes mellitus with diabetic autonomic (poly)neuropathy E11.43 [facility] [address] [facility] [id number] [address] [place] [phone] Nov, Right ankle pain M25.571 [facility] [address] [facility] [id number] [address] [place] [id number] Oct, Right ankle pain M25.571 [facility] [address] [facility] [id number] [address] [place] [id number] Oct, [facility] [address] [facility] [id number] [address] [place] [id number] Oct, [facility] [address] [facility] [id number] [address] [place] [id number] Sep, [facility] [address] [facility] [id number] [address] [place] [id number] Sep, Hypertension I10 [facility] [address] [facility] [id number] [address] [place] [id number] Sep, Chronic kidney disease N18.9 ; Right ankle pain M25.571 and GERD (gastroesophageal reflux disease) K21.9 [facility] [address] [facility] [id number] [address] [place] [id number] Jul, [facility] [address] [facility] [id number] [address] [place] [id number] Jul, Encounter for immunization Z 23 ; Venous insufficiency I87.2 and Diabetic polyneuropathy associated with type 2 diabetes mellitus E11.42 [facility] [address] [id number] [address] [place] [id number] Jul, [facility] [address] [facility] [id number] [address] [place] [id number] Jul, Diabetes mellitus E11.9 [facility] [address] [id number] [address] [place] [id number] May, [facility] [address] [id number] [address] [place] [id number] Apr, [facility] [address] [facility] [id number] [address] [place] [id number] Mar, Right ankle pain M25.571 [facility] [address] [facility] [id number] [address] [place] [phone] Mar, [facility] [address] [id number] [address] [place] [id number] February, Paresthesias R20.2 [facility] [address] [facility] [id number] [address] [place] [id number] February, [facility] [address] [facility] [id number] [address] [place] [id number] February, 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 [facility] [address] [facility] [id number] [address] [place] [id number] February, Diabetes mellitus E11.9 [facility] [address] [id number] [address] [place] [id number] February, [facility] [address] [facility] [id number] [address] [place] [phone] February, Polyneuropathy in diabetes 3 57.2 and Paresthesias R20.2 [facility] [address] [facility] [id number] [address] [place] [id number] February, [facility] [address] [id number] [address] [place] [phone] February, [facility] [address] [id number] [address] [place] [phone] February, [facility] [address] [id number] [address] [place] [id number] February, Diabetes mellitus E11.9 [facility] [address] [id number] [address] [place] [phone] February, [facility] [address] [id number] [address] [place] [phone] February, Hyperkalemia E87.5 [facility] [address] [id number] [address] [place] [id number] Jan, Hypertension I10 [facility] [address] [facility] [id number] [address] [place] [phone] Jan, Insomnia G47.00 [facility] [address] [id number] [address] [place] [id number] Jan, [facility] [address] [id number] [address] [place] [id number] Jan, [facility] [address] [facility] [id number] [address] [place] [phone] Jan, [facility] [address] [id number] [address] [place] [id number] Dec, Right ankle pain M25.571 [facility] [address] [id number] [address] [place] [id number] Dec, GERD (gastroesophageal reflu x disease) K21.9 [facility] [address] [id number] [address] [place] [id number] Dec, Insomnia G47.00 [facility] [address] [id number] [address] [place] [id number] Dec, Hypertension I10 and Hyperka lemia 276.7 [facility] [address] [facility] [id number] [address] [place] [id number] 10 Dec, 2015 Chronic kidney disease N18.9 [facility] [address] [facility] [id number] [address] [place] [id number] 07 Dec, 2015 [facility] [address] [facility] [id number] [address] [place] [id number] Dec, Hyperkalemia E87.5 [facility] [address] [facility] [id number] [address] [place] [id number] Dec, Chronic kidney disease N18.9 and Right ankle pain M25.571 [facility] [address] [facility] [id number] [address] [place] [phone] 11 Nov, 2015 GERD (gastroesophageal reflu x disease) K21.9 [facility] [address] [facility] [id number] [address] [place] [phone] Nov, Right ankle pain M25.571 [facility] [address] [facility] [id number] [address] [place] [id number] Nov, Diabetes mellitus E11.9 [facility] [address] [facility] [id number] [address] [place] [phone] Oct, [facility] [address] [facility] [id number] [address] [place] [id number] Oct, [facility] [address] [facility] [id number] [address] [place] [phone] Oct, [facility] [address] [facility] [id number] [address] [place] [phone] Oct, Hyperkalemia E87.5 [facility] [address] [facility] [id number] [address] [place] [id number] Oct, [facility] [address] [facility] [id number] [address] [place] [id number] Oct, Hyperkalemia E87.5 [facility] [address] [id number] [address] [place] [id number] Sep, [facility] [address] [id number] [address] [place] [id number] Sep, [facility] [address] [facility] [id number] [address] [place] [phone] Sep, [facility] [address] [facility] [id number] [address] [place] [id number] Sep, [facility] [address] [facility] [id number] [address] [place] [id number] Sep, Right ankle pain M25.571 [facility] [address] [id number] [address] [place] [id number] Aug, Chronic kidney disease N18.9 [facility] [address] [facility] [id number] [address] [place] [phone] Aug, [facility] [address] [facility] [id number] [address] [place] [id number] Aug, Hyperkalemia E87.5 [facility] [address] [facility] [id number] [address] [place] [phone] Aug, [facility] [address] [facility] [id number] [address] [place] [phone] Jul, [facility] [address] [facility] [id number] [address] [place] [phone] Jul, [facility] [address] [facility] [id number] [address] [place] [id number] Jul, [facility] [address] [facility] [id number] [address] [place] [phone] Jul, Diabetes mellitus E11.9 ; En counter for immunization Z23 ; Hypertension I10 and Hyperkalemia E87.5 [facility] [address] [facility] [id number] [address] [place] [id number] Jul, [facility] [address] [id number] [address] [place] [address], [place] [id number] Jul, Hyperkalemia E87.5 [facility] [address] [id number] [address] [place] [address], [place] [id number] Jul, Hyperkalemia E87.5 [facility] [address] [id number] [address] [place] [address], [place] [id number] Jun, [facility] [address] [id number] [address] [place] [address], [place] [id number] Jun, [facility] [address] [id number] [address] [place] [address], [place] [id number] Jun, [facility] [address] [id number] [address] [place] [address], [place] [id number] Jun, [facility] [address] [id number] [address] [place] [address], [place] [id number] May, [facility] [address] [id number] [address] [place] [address], [place] [id number] May, [facility] [address] [id number] [address] [place] [address], [place] [address] May, [facility] [address] [id number] [address] [place] [address], [place] [address] May, Hyperkalemia 276.7 [facility] [address] [id number] [address] [place] [address], [place] [id number] May, [facility] [address] [id number] [address] [place] [address], [place] [address] Apr, Hyperkalemia 276.7 [facility] [address] [id number] [address] [place] [address], [place] [address] Apr, [facility] [address] [id number] [address] [place] [address], [place] [address] Apr, [facility] [address] [id number] [address] [place] [address], [place] [address] Apr, [facility] [address] [id number] [address] [place] [id number] Apr, [facility] [address] [id number] [address] [place] [id number] Apr, Hyperkalemia 276.7 [facility] [address] [id number] [address] [place] [id number] Apr, [facility] [address] [address] [id number] [address] [place] [id number] Apr, [facility] [address] [id number] [address] [place] [id number] Mar, [facility] [address] [id number] [address] [place] [id number] Mar, Hyperkalemia 276.7 [facility] [address] [id number] [address] [place] [id number] Mar, Hyperkalemia 276.7 [facility] [address] [id number] [address] [place] [id number] Mar, [facility] [address] [id number] [address] [place] [phone] Mar, [facility] [address] [id number] [address] [place] [id number] Mar, [facility] [address] [id number] [address] [place] [phone] Mar, [facility] [address] [id number] [address] [place] [id number] Mar, Anserine bursitis 726.61 [facility] [address] [id number] [address] [place] [id number] Mar, Asthma 493.90 and Hyperkalem ia 276.7 [facility] [address] [id number] [address] [place] [phone] Mar, [facility] [address] [id number] [address] [place] [address], [place] [address] February, [facility] [address] [id number] [address] [place] [address], [place] [address] February, [facility] [address] [id number] [address] [place] [address], [place] [address] February, [facility] [address] [id number] [address] [place] [address], [place] [address] February, [facility] [address] [id number] [address] [place] [address], [place] [address] February, [facility] [address] [id number] [address] [place] [address], [place] [address] February, [facility] [address] [id number] [address] [place] [address], [place] [address] February, [facility] [address] [id number] [address] [place] [address], [place] [address] February, [facility] [address] [id number] [address] [place] [address], [place] [address] February, [facility] [address] [id number] [address] [place] [address], [place] [address] Jan, [facility] [address] [id number] [address] [place] [address], [place] [address] Jan, [facility] [address] [id number] [address] [place] [address], [place] [address] Dec, [facility] [address] [id number] [address] [place] [address], [place] [address] Dec, [facility] [address] [id number] [address] [place] [address], [place] [address] Dec, [facility] [address] [id number] [address] [place] [address], [place] [address] Dec, [facility] [address] [id number] [address] [place] [address], [place] [address] Dec, [facility] [address] [id number] [address] [place] [address], [place] [address] Dec, [facility] [address] [id number] [address] [place] [address], [place] [address] Dec, [facility] [address] [id number] [address] [place] [address], [place] [address] Dec, [facility] [address] [id number] [address] [place] [address], [place] [address] Dec, [facility] [address] [id number] [address] [place] [address], [place] [address] Dec, [facility] [address] [id number] [address] [place] [address], [place] [address] Dec, [facility] [address] [id number] [address] [place] [address], [place] [address] Dec, [facility] [address] [id number] [address] [place] [address], [place] [address] Dec, [facility] [address] [id number] [address] [place] [address], [place] [address] Dec, [facility] [address] [id number] [address] [place] [address], [place] [address] Nov, [facility] [address] [id number] [address] [place] [address], [place] [address] Nov, [facility] [address] [id number] [address] [place] [address], [place] [address] Nov, [facility] [address] [id number] [address] [place] [address], [place] [address] Nov, [facility] [address] [id number] [address] [place] [address], [place] [address] Nov, [facility] [address] [id number] [address] [place] [address], [place] [address] Nov, [facility] [address] [id number] [address] [place] [address], [place] [address] Oct, [facility] [address] [id number] [address] [place] [address], [place] [address] Oct, [facility] [address] [id number] [address] [place] [address], [place] [address] Oct, [facility] [address] [id number] [address] [place] [address], [place] [address] Oct, [facility] [address] [id number] [address] [place] [address], [place] [address] Oct, [facility] [address] [id number] [address] [place] [address], [place] [address] Oct, [facility] [address] [id number] [address] [place] [address], [place] [address] Sep, [facility] [address] [id number] [address] [place] [address], [place] [address] Sep, [facility] [address] [id number] [address] [place] [address], [place] [address] Sep, [facility] [address] [id number] [address] [place] [address], [place] [address] Sep, [facility] [address] [id number] [address] [place] [address], [place] [address] Sep, [facility] [address] [id number] [address] [place] [address], [place] [address] Sep, [facility] [address] [id number] [address] [place] [address], [place] [address] Aug, [facility] [address] [id number] [address] [place] [address], [place] [address] Aug, [facility] [address] [id number] [address] [place] [address], [place] [address] Aug, [facility] [address] [id number] [address] [place] [address], [place] [address] Aug, [facility] [address] [id number] [address] [place] [address], [place] [address] Aug, [facility] [address] [id number] [address] [place] [address], [place] [address] Aug, [facility] [address] [id number] [address] [place] [address], [place] [address] Jul, [facility] [address] [id number] [address] [place] [address], [place] [address] Jul, [facility] [address] [id number] [address] [place] [address], [place] [address] Jul, [facility] [address] [id number] [address] [place] [address], [place] [address] Jul, [facility] [address] [id number] [address] [place] [address], [place] [address] Jul, [facility] [address] [id number] [address] [place] [address], [place] [address] Jul, [facility] [address] [id number] [address] [place] [address], [place] [address] Jul, [facility] [address] [id number] [address] [place] [address], [place] [address] Jul, [facility] [address] [id number] [address] [place] [id number] Jul, [facility] [address] [id number] [address] [place] [id number] Jul, [facility] [address] [id number] [address] [place] [address], [place] [address] Jul, [facility] [address] [id number] [address] [place] [address], [place] [address] Jun, [facility] [address] [id number] [address] [place] [address], [place] [address] Jun, [facility] [address] [id number] [address] [place] [id number] Jun, [facility] [address] [id number] [address] [place] [id number] Jun, [facility] [address] [id number] [address] [place] [id number] Apr, [facility] [address] [id number] [address] [place] [id number] Apr, [facility] [address] [id number] [address] [place] [id number] Apr, [facility] [address] [id number] [address] [place] [id number] Apr, [facility] [address] [id number] [address] [place] [id number] Mar, [facility] [address] [id number] [address] [place] [id number] Mar, [facility] [address] [id number] [address] [place] [id number] Mar, [facility] [address] [id number] [address] [place] [id number] Mar, [facility] [address] [id number] [address] [place] [id number] Mar, [facility] [address] [id number] [address] [place] [id number] Sep, [facility] [address] [id number] [address] [place] [id number] Sep, [facility] [address] [id number] [address] [place] [id number] Aug, IMMUNIZATIONS No Known Immunizations SOCIAL HISTORY Never Assessed REASON FOR VISIT Controlled Med Refill 10/11 PLAN OF CARE VITAL SIGNS MEDICATIONS Medication Instructions Dosage Frequency Start Date End Date Duration S radha Oxycodone HCl 5 mg Orally every 6 hrs 1 tablet as needed 6h Sep, 28 days Active RESULTS No Results PROCEDURES [...] V C oct 2016 Hospitalization History Pneumonia [place] [facility] 06/2018 Hospitalization History fistula in left arm 07/2018
--- OUTSIDE RECORDS SUMMARY | 2020-04-01 19:33 | XMS REPORT ---
Author Author Josephine WILLIS Organization [facility] Address [address] [place] [address] Care Team Providers Care Marketing Business Analyst Name Role Phone OLYA WILLIS Unavailable PROBLEMS Type Condition ICD9-CM Code [id number] Code Onset Dates Condition S tatus SNOMED Code Problem GERD (gastroesophageal reflux disease) K21.9 Active 312647608 Problem Type 2 diabetes mellitus with diabetic autonomic (poly)neuropathy E11.43 Active 694890254 Problem Gastroparesis K31.84 Active 931737 006 Problem Unsteady gait R26.81 Active 283336 08 Problem Pressure ulcer of unspecified heel, stage 4 L89.60 4 Active 997708442 Problem Chronic osteomyelitis of right foot with draining sinus M86.471 Active 341279760778332 Problem Chronic skin ulcer with fat layer exposed L98.492 Active 76074900 Problem 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 Active 541037265 Problem Type 2 diabetes mellitus with foot ulcer E11.621 Active 72775578578091 Problem Chronic kidney disease N18.9 Active 570584579 Problem Paresthesias R20.2 Active 6791428 4 Problem Hypertension I10 Active 8593526 3 Problem Diabetic polyneuropathy associated with type 2 d iabetes mellitus E11.42 Active 03058551 Problem Diabetes mellitus E11.9 Active 73 616388 Problem Venous insufficiency I87.2 Active 78004472 ALLERGIES No Information ENCOUNTERS Encounter Location Date Diagnosis [facility] [address] [facility] [id number] [address] [place] [phone] Sep, [facility] [address] [facility] [id number] [address] [place] [phone] Sep, [facility] [address] [facility] [id number] [address] [place] [phone] Aug, [facility] [address] [id number] [address] [place] [phone] Aug, [facility] [address] [id number] [address] [place] [address] Aug, 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 [facility] [address] [id number] [address] [place] [address] Aug, [facility] [address] [id number] [address] [place] [phone] Aug, [facility] [address] [id number] [address] [place] [address] Aug, Bronchitis J40 [facility] [address] [id number] [address] [place] [phone] Aug, [facility] [address] [id number] [address] [place] [phone] Jul, [facility] [address] [id number] [address] [place] [address] Jul, Chronic skin ulcer with fat layer exposed L98.492 [facility] [address] [id number] [address] [place] [address] Jul, 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 [facility] [address] [id number] [address] [place] [phone] Jun, [facility] [address] [id number] [address] [place] [phone] Jun, [facility] [address] [id number] [address] [place] [address] May, [facility] [address] [id number] [address] [place] [address] May, Chronic skin ulcer with fat layer exposed L98.492 [facility] [address] [id number] [address] [place] [address] Apr, [place] [address] [facility] [id number] [address] [place] [address] Apr, Type 2 diabetes mellitus wit h foot ulcer E11.621 and Unsteady gait R26.81 [place] [address] [facility] [id number] [address] [place] [phone] Mar, Decubitus ulcer of right mariana l, stage 3 L89.613 [place] [address] [facility] [id number] [address] [place] [address] Mar, [place] [address] [facility] [id number] [address] [place] [address] Mar, Pressure ulcer of unspecifie d heel, stage 4 L89.604 and Type 2 diabetes mellitus with foot ulcer E11.621 [place] [address] [place] [id number] [address] [place] [address] Mar, Encounter for medication mon itoring Z51.81 [place] [address] [facility] [id number] [address] [place] [address] Mar, Type 2 diabetes mellitus wit h foot ulcer E11.621 and Non-pressure chronic ulcer of right heel and midfoot with unspecified severity L97.419 [place] [address] [facility] [id number] [address] [place] [address] February, [place] [address] [facility] [id number] [address] [place] [address] Jan, Right ankle pain M25.571 [place] [address] [facility] [id number] [address] [place] [address] Dec, Right ankle pain M25.571 [place] [address] [facility] [id number] [address] [place] [address] Dec, [place] [address] [facility] [id number] [address] [place] [address] Dec, [place] [address] [facility] [id number] [address] [place] [address] Dec, Right ankle pain M25.571 [facility] [address] [place] [id number] [place] [address] Dec, Chronic skin ulcer with fat layer exposed L98.492 ; Type 2 diabetes mellitus with diabetic autonomic (poly)neuropathy E11.43 and Hypertension I10 [facility] [address] [place] [id number] [place] [address] Nov, [facility] [address] [place] [id number] [place] [address] Nov, [facility] [address] [place] [id number] [place] [address] Nov, [facility] [address] [place] [id number] [place] [address] Nov, Right ankle pain M25.571 and Chronic osteomyelitis of right foot with draining sinus M86.471 [facility] [address] [place] [id number] [address] [place] [address] Oct, Right ankle pain M25.571 [facility] [address] [address] Oct, [facility] [address] [place] [id number] [place] [address] Sep, Diabetes mellitus E11.9 [facility] [address] [place] [id number] [place] [address] Sep, Diabetic polyneuropathy asso ciated with type 2 diabetes mellitus E11.42 and Venous insufficiency I87.2 [facility] [address] [place] [id number] [place] [address] 07 Sep, 2017 Right ankle pain M25.571 [facility] [address] [place] [id number] [address] [place] [address] Aug, Right ankle pain M25.571 [facility] [address] [place] [id number] [address] [place] [address] Aug, Chronic osteomyelitis of rig ht foot with draining sinus M86.471 [facility] [address] [id number] [address] [place] [address] Aug, [facility] [address] [id number] [address] [place] [phone] Aug, [facility] [address] [id number] [address] [place] [address] Aug, Chronic osteomyelitis of rig ht foot with draining sinus M86.471 [facility] [address] [id number] [address] [place] [address] Jul, [facility] [address] [id number] [address] [place] [address] Jul, [facility] [address] [id number] [address] [place] [address] Jul, Chronic kidney disease N18.9 [facility] [address] [id number] [address] [place] [address] Jul, Right ankle pain M25.571 [facility] [address] [id number] [address] [place] [address] Jul, Non-healing ulcer of right f oot, unspecified ulcer stage L97.519 [facility] [address] [id number] [address] [place] [address] Jul, Chronic skin ulcer with fat layer exposed L98.492 [facility] [address] [id number] [address] [place] [address] Jul, Deformity of right ankle nitza nt M21.961 [facility] [address] [id number] [address] [place] [address] Jun, [facility] [address] [id number] [address] [place] [address] Jun, Diabetes mellitus E11.9 ; Sk in ulcer of right foot with fat layer exposed L97.512 and Encounter for immunization Z23 [facility] [address] [id number] [address] [place] [address] Jun, Right ankle pain M25.571 [facility] [address] [id number] [address] [place] [address] May, Right ankle pain M25.571 [facility] [address] [id number] [address] [place] [address] Apr, Right ankle pain M25.571 [facility] [address] [id number] [address] [place] [address] Mar, Right ankle pain M25.571 [facility] [address] [id number] [address] [place] [address] Mar, [facility] [address] [facility] [id number] [address] [place] [address] February, Diabetes mellitus E11.9 and Diabetic polyneuropathy associated with type 2 diabetes mellitus E11.42 [facility] [address] [facility] [id number] [address] [place] [address] February, Hyperkalemia E87.5 [facility] [address] [facility] [id number] [address] [place] [address] February, Right ankle pain M25.571 [facility] [address] [facility] [id number] [address] [place] [address] Jan, Right ankle pain M25.571 [facility] [address] [id number] [address] [place] [address] Dec, Right ankle pain M25.571 [facility] [address] [facility] [id number] [address] [place] [address] Dec, Right ankle pain M25.571 [facility] [address] [facility] [id number] [address] [place] [address] Nov, [facility] [address] [id number] 07 Nov, 2016 Diabetes mellitus E11.9 ; Hy pertension I10 ; Gastroparesis K31.84 and Type 2 diabetes mellitus with diabetic autonomic (poly)neuropathy E11.43 [facility] [address] [place] [id number] [place] [address] 03 Nov, 2016 Right ankle pain M25.571 [facility] [address] [address] Oct, Right ankle pain M25.571 [facility] [address] [address] Oct, [place] [address] [address] Oct, [place] [address] [address] Sep, [place] [address] [address] Sep, Hypertension I10 [place] [address] [address] Sep, Chronic kidney disease N18.9 ; Right ankle pain M25.571 and GERD (gastroesophageal reflux disease) K21.9 [place] [address] [address] Jul, [place] [address] [address] Jul, Encounter for immunization Z 23 ; Venous insufficiency I87.2 and Diabetic polyneuropathy associated with type 2 diabetes mellitus E11.42 [facility] [address] [address] Jul, [place] [address] [phone] 04 Jul, 2016 Diabetes mellitus E11.9 [facility] [address] [address] May, [facility] [address] [id number] [address] [place] [phone] Apr, [facility] [address] [id number] [address] [place] [address] Mar, Right ankle pain M25.571 [facility] [address] [id number] [address] [place] [phone] Mar, [facility] [address] [id number] [address] [place] [address] February, Paresthesias R20.2 [facility] [address] [id number] [address] [place] [address] February, [facility] [address] [facility] [id number] [address] [place] [address] February, 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 [facility] [address] [id number] [address] [place] [id number] February, Diabetes mellitus E11.9 [facility] [address] [id number] [address] [place] [phone] February, [facility] [address] [facility] [id number] [address] [place] [address] February, Polyneuropathy in diabetes 3 57.2 and Paresthesias R20.2 [facility] [address] [id number] [address] [place] [phone] February, [facility] [address] [id number] [address] [place] [phone] February, [facility] [address] [id number] [address] [place] [address] February, [facility] [address] [facility] [id number] [address] [place] [phone] February, Diabetes mellitus E11.9 [facility] [address] [id number] [address] [place] [address] February, [facility] [address] [facility] [id number] [address] [place] [address] February, Hyperkalemia E87.5 [facility] [address] [facility] [id number] [address] [place] [address] Jan, Hypertension I10 [facility] [address] [facility] [id number] [address] [place] [address] Jan, Insomnia G47.00 [facility] [address] [facility] [id number] [address] [place] [phone] Jan, [facility] [address] [facility] [id number] [address] [place] [address] Jan, [facility] [address] [facility] [id number] [address] [place] [address] Jan, [facility] [address] [facility] [id number] [address] [place] [address] Dec, Right ankle pain M25.571 [facility] [address] [facility] [id number] [address] [place] [address] Dec, GERD (gastroesophageal reflu x disease) K21.9 [facility] [address] [facility] [id number] [address] [place] [address] Dec, Insomnia G47.00 [facility] [address] [facility] [id number] [address] [place] [address] Dec, Hypertension I10 and Hyperka lemia 276.7 [facility] [address] [facility] [id number] [address] [place] [address] Dec, Chronic kidney disease N18.9 [facility] [address] [facility] [id number] [address] [place] [address] Dec, [facility] [address] [facility] [id number] [address] [place] [phone] Dec, Hyperkalemia E87.5 [facility] [address] [id number] [address] [place] [address] Dec, Chronic kidney disease N18.9 and Right ankle pain M25.571 [facility] [address] [id number] [address] [place] [address] 11 Nov, 2015 GERD (gastroesophageal reflu x disease) K21.9 [facility] [address] [id number] [address] [place] [phone] 03 Nov, 2015 Right ankle pain M25.571 [facility] [address] [id number] [address] [place] [address] 03 Nov, 2015 Diabetes mellitus E11.9 [facility] [address] [id number] [address] [place] [phone] Oct, [facility] [address] [id number] [address] [place] [phone] Oct, [facility] [address] [id number] [address] [place] [phone] Oct, [facility] [address] [id number] [address] [place] [phone] Oct, Hyperkalemia E87.5 [facility] [address] [facility] [id number] [address] [place] [phone] Oct, [facility] [address] [facility] [id number] [address] [place] [phone] Oct, Hyperkalemia E87.5 [facility] [address] [id number] [address] [place] [phone] Sep, [facility] [address] [facility] [id number] [address] [place] [phone] Sep, [facility] [address] [facility] [id number] [address] [place] [phone] Sep, [facility] [address] [facility] [id number] [address] [place] [address] Sep, [facility] [address] [id number] [address] [place] [address] Sep, Right ankle pain M25.571 [facility] [address] [id number] [address] [place] [address] Aug, Chronic kidney disease N18.9 [facility] [address] [id number] [address] [place] [address] Aug, [facility] [address] [id number] [address] [place] [address] Aug, Hyperkalemia E87.5 [facility] [address] [facility] [id number] [address] [place] [phone] Aug, [facility] [address] [facility] [id number] [address] [place] [id number] Jul, [facility] [address] [facility] [id number] [address] [place] [phone] Jul, [facility] [address] [facility] [id number] [address] [place] [phone] Jul, [facility] [address] [facility] [id number] [address] [place] [address] Jul, Diabetes mellitus E11.9 ; En counter for immunization Z23 ; Hypertension I10 and Hyperkalemia E87.5 [facility] [address] [facility] [id number] [address] [place] [phone] Jul, [facility] [address] [facility] [id number] [address] [place] [address] Jul, Hyperkalemia E87.5 [facility] [address] [facility] [id number] [address] [place] [address] Jul, Hyperkalemia E87.5 [facility] [address] [facility] [id number] [address] [place] [phone] Jun, [facility] [address] [facility] [id number] [address] [place] [id number] Jun, [facility] [address] [id number] [address] [place] [address], [place] [address] 15 Jun, 2015 [facility] [address] [id number] [address] [place] [address], [place] [address] Jun, [facility] [address] [id number] [address] [place] [address], [place] [address] May, [facility] [address] [id number] [address] [place] [address], [place] [address] May, [facility] [address] [id number] [address] [place] [address], [place] [address] May, [facility] [address] [id number] [address] [place] [address], [place] [address] May, Hyperkalemia 276.7 [facility] [address] [id number] [address] [place] [address], [place] [address] May, [facility] [address] [id number] [address] [place] [address], [place] [address] Apr, Hyperkalemia 276.7 [facility] [address] [id number] [address] [place] [address], [place] [address] Apr, [facility] [address] [id number] [address] [place] [address], [place] [address] Apr, [facility] [address] [id number] [address] [place] [address], [place] [address] Apr, [facility] [address] [id number] [address] [place] [address], [place] [address] Apr, [facility] [address] [id number] [address] [place] [address], [place] [address] Apr, Hyperkalemia 276.7 [facility] [address] [id number] [address] [place] [address], [place] [address] Apr, [facility] [address] [id number] [address] [place] [address] Apr, [facility] [address] [id number] [address] [place] [id number] Mar, [facility] [address] [id number] [address] [place] [address] Mar, Hyperkalemia 276.7 [facility] [address] [id number] [address] [place] [address] Mar, Hyperkalemia 276.7 [facility] [address] [id number] [address] [place] [id number] Mar, [facility] [address] [id number] [address] [place] [address] Mar, [facility] [address] [id number] [address] [place] [phone] Mar, [facility] [address] [id number] [address] [place] [phone] Mar, [facility] [address] [id number] [address] [place] [id number] Mar, Anserine bursitis 726.61 [facility] [address] [id number] [address] [place] [address] Mar, Asthma 493.90 and Hyperkalem ia 276.7 [facility] [address] [id number] [address] [place] [address] Mar, [facility] [address] [id number] [address] [place] [phone] February, [facility] [address] [id number] [address] [place] [phone] February, [facility] [address] [id number] [address] [place] [id number] February, [facility] [address] [id number] [address] [place] [id number] February, [facility] [address] [id number] [address] [place] [address], [place] [address] February, [facility] [address] [id number] [address] [place] [address], [place] [address] February, [facility] [address] [id number] [address] [place] [address], [place] [address] February, [facility] [address] [id number] [address] [place] [address], [place] [address] February, [facility] [address] [id number] [address] [place] [address], [place] [address] February, [facility] [address] [id number] [address] [place] [address], [place] [address] Jan, [facility] [address] [id number] [address] [place] [address], [place] [address] Jan, [facility] [address] [id number] [address] [place] [address], [place] [address] Dec, [facility] [address] [id number] [address] [place] [address], [place] [address] Dec, [facility] [address] [id number] [address] [place] [address], [place] [address] Dec, [facility] [address] [id number] [address] [place] [address], [place] [address] Dec, [facility] [address] [id number] [address] [place] [address], [place] [address] Dec, [facility] [address] [id number] [address] [place] [address], [place] [address] Dec, [facility] [address] [id number] [address] [place] [address], [place] [address] Dec, [facility] [address] [address] [id number] [address] [place] [address], [place] [address] Dec, [facility] [address] [id number] [address] [place] [address], [place] [address] Dec, [facility] [address] [id number] [address] [place] [address], [place] [address] Dec, [facility] [address] [id number] [address] [place] [address], [place] [address] Dec, [facility] [address] [id number] [address] [place] [address], [place] [address] Dec, [facility] [address] [id number] [address] [place] [address], [place] [address] Dec, [facility] [address] [id number] [address] [place] [address], [place] [address] Dec, [facility] [address] [id number] [address] [place] [address], [place] [address] Nov, [facility] [address] [id number] [address] [place] [address], [place] [address] Nov, [facility] [address] [id number] [address] [place] [address], [place] [address] Nov, [facility] [address] [id number] [address] [place] [address], [place] [address] Nov, [facility] [address] [id number] [address] [place] [address], [place] [address] Nov, [facility] [address] [id number] [address] [place] [address], [place] [address] Nov, [facility] [address] [id number] [address] [place] [address] Oct, [facility] [address] [id number] [address] [place] [address] Oct, [facility] [address] [id number] [address] [place] [address] Oct, [facility] [address] [id number] [address] [place] [address] Oct, [facility] [address] [id number] [address] [place] [address], [place] [address] Oct, [facility] [address] [id number] [address] [place] [address], [place] [address] Oct, [facility] [address] [id number] [address] [place] [address], [place] [address] Sep, [facility] [address] [id number] [address] [place] [address], [place] [address] Sep, [facility] [address] [id number] [address] [place] [address], [place] [address] Sep, [facility] [address] [id number] [address] [place] [address], [place] [address] Sep, [facility] [address] [id number] [address] [place] [address], [place] [address] Sep, [facility] [address] [id number] [address] [place] [address], [place] [address] Sep, [facility] [address] [id number] [address] [place] [address], [place] [address] Aug, [facility] [address] [id number] [address] [place] [address], [place] [address] Aug, [facility] [address] [id number] [address] [place] [address], [place] [address] Aug, [facility] [address] [id number] [address] [place] [address], [place] [address] Aug, [facility] [address] [id number] [address] [place] [address], [place] [address] Aug, [facility] [address] [id number] [address] [place] [address], [place] [address] Aug, [facility] [address] [id number] [address] [place] [address], [place] [address] Jul, [facility] [address] [id number] [place] [address] Jul, [facility] [address] [id number] [address] [place] [address], [place] [address] Jul, [facility] [address] [id number] [address] [place] [address], [place] [address] Jul, [facility] [address] [id number] [address] [place] [address], [place] [address] Jul, [facility] [address] [id number] [address] [place] [address], [place] [address] Jul, [facility] [address] [id number] [address] [place] [address], [place] [address] Jul, [facility] [address] [id number] [address] [place] [address], [place] [address] Jul, [facility] [address] [id number] [address] [place] [address], [place] [address] Jul, [facility] [address] [id number] [address] [place] [address], [place] [address] Jul, [facility] [address] [id number] [address] [place] [address], [place] [address] Jul, [facility] [address] [id number] [address] [place] [address], [place] [address] Jun, [facility] [address] [id number] [address] [place] [address], [place] [address] Jun, [facility] [address] [id number] [address] [place] [address] Jun, [facility] [address] [id number] [address] [place] [address], [place] [address] Jun, [facility] [address] [id number] [address] [place] [address], [place] [address] Apr, [facility] [address] [id number] [address] [place] [address], [place] [address] Apr, [facility] [address] [id number] [address] [place] [address] Apr, [facility] [address] [id number] [address] [place] [address] Apr, [facility] [address] [id number] [address] [place] [address] Mar, [facility] [address] [id number] [address] [place] [address] Mar, [facility] [address] [id number] [address] [place] [address] Mar, [facility] [address] [id number] [address] [place] [address] Mar, [facility] [address] [id number] [address] [place] [address] Mar, [facility] [address] [id number] [address] [place] [address] Sep, [facility] [address] [id number] [address] [place] [address] Sep, [facility] [address] [id number] [address] [place] [address] Aug, IMMUNIZATIONS No Known Immunizations SOCIAL HISTORY Never Assessed REASON FOR VISIT refill PLAN OF CARE VITAL SIGNS MEDICATIONS Unknown [...] V C oct 2016 Hospitalization History [place]2018 Hospitalization History fistula in left arm 07/2018
--- OUTSIDE RECORDS SUMMARY | 2020-04-01 19:33 | XMS REPORT ---
Author Author Josephine WILLIS Organization [facility] Address [address] [place] [address] Care Team Providers Care Traffic Routing Engineer Name Role Phone OLYA WILLIS Unavailable PROBLEMS Type Condition ICD9-CM Code ONG26-VW Code Onset Dates Condition S tatus SNOMED Code Problem GERD (gastroesophageal reflux disease) K21.9 Active 840656774 Problem Type 2 diabetes mellitus with diabetic autonomic (poly)neuropathy E11.43 Active 730310699 Problem Gastroparesis K31.84 Active 478415 006 Problem Unsteady gait R26.81 Active 049956 08 Problem Pressure ulcer of unspecified heel, stage 4 L89.60 4 Active 813591403 Problem Chronic osteomyelitis of right foot with draining sinus M86.471 Active 619321918670529 Problem Chronic skin ulcer with fat layer exposed L98.492 Active 15206294 Problem 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 Active 212158745 Problem Type 2 diabetes mellitus with foot ulcer E11.621 Active [id number] Problem Chronic kidney disease N18.9 Active 949802873 Problem Paresthesias R20.2 Active 0537710 4 Problem Hypertension I10 Active 8020904 3 Problem Diabetic polyneuropathy associated with type 2 d iabetes mellitus E11.42 Active 19990055 Problem Diabetes mellitus E11.9 Active 73 540274 Problem Venous insufficiency I87.2 Active 80522673 ALLERGIES No Information ENCOUNTERS Encounter Location Date Diagnosis [facility] [address] [facility] [id number] [address] [place] [id number] Sep, [facility] [address] [facility] [id number] [address] [place] [id number] Sep, Diabetes mellitus E11.9 [facility] [address] [facility] [id number] [address] [place] [id number] Sep, [facility] [address] [id number] [address] [place] [id number] Aug, [facility] [address] [id number] [address] [place] [id number] Aug, [facility] [address] [id number] [address] [place] [id number] Aug, 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 [facility] [address] [id number] [address] [place] [id number] Aug, [facility] [address] [id number] [address] [place] [id number] Aug, [facility] [address] [id number] [address] [place] [id number] Aug, Bronchitis J40 [facility] [address] [facility] [id number] [address] [place] [id number] Aug, [facility] [address] [id number] [address] [place] [id number] Jul, [facility] [address] [id number] [address] [place] [id number] Jul, Chronic skin ulcer with fat layer exposed L98.492 [facility] [address] [id number] [address] [place] [id number] Jul, 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 [facility] [address] [id number] [address] [place] [id number] Jun, [facility] [address] [id number] [address] [place] [id number] Jun, [facility] [address] [id number] [address] [place] [id number] May, [facility] [address] [id number] [address] [place] [id number] May, Chronic skin ulcer with fat layer exposed L98.492 [place] [address] [facility] [id number] [address] [place] [phone] Apr, [facility] [address] [place] [id number] [address] [place] [id number] Apr, Type 2 diabetes mellitus wit h foot ulcer E11.621 and Unsteady gait R26.81 [place] [address] [place] [id number] [address] [place] [phone] Mar, Decubitus ulcer of right mariana l, stage 3 L89.613 [place] [address] [facility] [id number] [address] [place] [id number] Mar, [place] [address] [address] Mar, Pressure ulcer of unspecifie d heel, stage 4 L89.604 and Type 2 diabetes mellitus with foot ulcer E11.621 [place] [address] [place] [phone] Mar, Encounter for medication mon itoring Z51.81 [place] [address] [place] [id number] [address] [place] [id number] Mar, Type 2 diabetes mellitus wit h foot ulcer E11.621 and Non-pressure chronic ulcer of right heel and midfoot with unspecified severity L97.419 [place] [address] [place] [id number] February, [place] [address] [place] [id number] [address] [place] [id number] Jan, Right ankle pain M25.571 [facility] [address] [place] [id number] [address] [place] [address] Dec, Right ankle pain M25.571 [place] [address] [place] [id number] Dec, [place] [address] [place] [id number] [place] [phone] Dec, [facility] [address] [id number] [address] [place] [id number] Dec, Right ankle pain M25.571 [facility] [address] [facility] [id number] [address] [place] [id number] Dec, Chronic skin ulcer with fat layer exposed L98.492 ; Type 2 diabetes mellitus with diabetic autonomic (poly)neuropathy E11.43 and Hypertension I10 [facility] [address] [id number] [address] [place] [phone] Nov, [facility] [address] [facility] [id number] [address] [place] [phone] Nov, [facility] [address] [facility] [id number] [address] [place] [phone] Nov, [facility] [address] [facility] [id number] [address] [place] [phone] Nov, Right ankle pain M25.571 and Chronic osteomyelitis of right foot with draining sinus M86.471 [place] [address] [place] [id number] [address] [place] [id number] Oct, Right ankle pain M25.571 [facility] [address] [facility] [id number] [address] [place] [id number] Oct, [facility] [address] [facility] [id number] [address] [place] [phone] Sep, Diabetes mellitus E11.9 [facility] [address] [facility] [id number] [address] [place] [phone] Sep, Diabetic polyneuropathy asso ciated with type 2 diabetes mellitus E11.42 and Venous insufficiency I87.2 [facility] [address] [facility] [id number] [address] [place] [phone] Sep, Right ankle pain M25.571 [facility] [address] [place] [id number] [address] [place] [id number] Aug, Right ankle pain M25.571 [facility] [address] [id number] [address] [place] [phone] Aug, Chronic osteomyelitis of rig ht foot with draining sinus M86.471 [facility] [address] [id number] [address] [place] [id number] Aug, [facility] [address] [id number] [address] [place] [phone] Aug, [facility] [address] [id number] [address] [place] [id number] Aug, Chronic osteomyelitis of rig ht foot with draining sinus M86.471 [facility] [address] [id number] [address] [place] [phone] Jul, [facility] [address] [id number] [address] [place] [id number] Jul, [facility] [address] [id number] [address] [place] [id number] Jul, Chronic kidney disease N18.9 [facility] [address] [id number] [address] [place] [id number] Jul, Right ankle pain M25.571 [facility] [address] [id number] [address] [place] [id number] Jul, Non-healing ulcer of right f oot, unspecified ulcer stage L97.519 [facility] [address] [id number] [address] [place] [id number] Jul, Chronic skin ulcer with fat layer exposed L98.492 [facility] [address] [id number] [address] [place] [id number] Jul, Deformity of right ankle nitza nt M21.961 [facility] [address] [id number] [address] [place] [id number] Jun, [facility] [address] [place] [id number] [address] [place] [id number] 21 Jun, 2017 Diabetes mellitus E11.9 ; Sk in ulcer of right foot with fat layer exposed L97.512 and Encounter for immunization Z23 [facility] [address] [place] [id number] [address] [place] [phone] 18 Jun, 2017 Right ankle pain M25.571 [place] [address] [place] [id number] [place] [address] May, Right ankle pain M25.571 [place] [address] [place] [id number] [place] [phone] Apr, Right ankle pain M25.571 [place] [address] [place] [id number] [place] [address] Mar, Right ankle pain M25.571 [place] [address] [address] Mar, [place] [address] [address] February, Diabetes mellitus E11.9 and Diabetic polyneuropathy associated with type 2 diabetes mellitus E11.42 [place] [address] [address] [place] [id number] [address] [place] [phone] February, Hyperkalemia E87.5 [place] [address] [place] [phone] February, Right ankle pain M25.571 [place] [address] [place] [id number] [address] [place] [phone] Jan, Right ankle pain M25.571 [place] [address] [place] [id number] [address] [place] [phone] Dec, Right ankle pain M25.571 [facility] [address] [place] [id number] [address] [place] [id number] Dec, Right ankle pain M25.571 [place] [address] [place] [id number] [address] [place] [phone] Nov, [facility] [address] [facility] [id number] [address] [place] [phone] Nov, Diabetes mellitus E11.9 ; Hy pertension I10 ; Gastroparesis K31.84 and Type 2 diabetes mellitus with diabetic autonomic (poly)neuropathy E11.43 [facility] [address] [facility] [id number] [address] [place] [id number] Nov, Right ankle pain M25.571 [facility] [address] [facility] [id number] [address] [place] [id number] Oct, Right ankle pain M25.571 [facility] [address] [facility] [id number] [address] [place] [phone] Oct, [place] [address] [place] [id number] [address] [place] [phone] Oct, [facility] [address] [place] [id number] [address] [place] [phone] Sep, [place] [address] [place] [id number] [address] [place] [id number] Sep, Hypertension I10 [place] [address] [place] [id number] [place] [address] Sep, Chronic kidney disease N18.9 ; Right ankle pain M25.571 and GERD (gastroesophageal reflux disease) K21.9 [facility] [address] [place] [id number] [address] [place] [id number] Jul, [facility] [address] [facility] [id number] [address] [place] [id number] Jul, Encounter for immunization Z 23 ; Venous insufficiency I87.2 and Diabetic polyneuropathy associated with type 2 diabetes mellitus E11.42 [facility] [address] [place] [id number] [address] [place] [id number] Jul, [facility] [address] [place] [id number] [address] [place] [phone] Jul, Diabetes mellitus E11.9 [facility] [address] [id number] [address] [place] [id number] May, [facility] [address] [id number] [address] [place] [id number] Apr, [facility] [address] [id number] [address] [place] [id number] Mar, Right ankle pain M25.571 [facility] [address] [id number] [address] [place] [id number] Mar, [facility] [address] [id number] [address] [place] [id number] February, Paresthesias R20.2 [facility] [address] [id number] [address] [place] [id number] February, [facility] [address] [id number] [address] [place] [phone] February, 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 [facility] [address] [id number] [address] [place] [id number] February, Diabetes mellitus E11.9 [facility] [address] [id number] [address] [place] [id number] February, [facility] [address] [id number] [address] [place] [phone] February, Polyneuropathy in diabetes 3 57.2 and Paresthesias R20.2 [facility] [address] [id number] [address] [place] [id number] February, [facility] [address] [id number] [address] [place] [phone] February, [facility] [address] [id number] [address] [place] [id number] February, [facility] [address] [id number] [address] [place] [phone] February, Diabetes mellitus E11.9 [facility] [address] [facility] [id number] [address] [place] [id number] February, [facility] [address] [facility] [id number] [address] [place] [id number] February, Hyperkalemia E87.5 [facility] [address] [facility] [id number] [address] [place] [id number] Jan, Hypertension I10 [facility] [address] [facility] [id number] [address] [place] [id number] Jan, Insomnia G47.00 [facility] [address] [facility] [id number] [address] [place] [id number] Jan, [facility] [address] [place] [phone] Jan, [facility] [address] [place] [id number] [address] [place] [id number] Jan, [facility] [address] [facility] [id number] [address] [place] [address] Dec, Right ankle pain M25.571 [facility] [address] [facility] [id number] [address] [place] [id number] Dec, GERD (gastroesophageal reflu x disease) K21.9 [facility] [address] [facility] [id number] [address] [place] [id number] Dec, Insomnia G47.00 [facility] [address] [facility] [id number] [address] [place] [phone] Dec, Hypertension I10 and Hyperka lemia 276.7 [facility] [address] [facility] [id number] [address] [place] [address] Dec, Chronic kidney disease N18.9 [facility] [address] [facility] [id number] [address] [place] [phone] Dec, [facility] [address] [place] [id number] [address] [place] [address] Dec, Hyperkalemia E87.5 [facility] [address] [id number] [address] [place] [id number] Dec, Chronic kidney disease N18.9 and Right ankle pain M25.571 [facility] [address] [facility] [id number] [address] [place] [id number] 11 Nov, 2015 GERD (gastroesophageal reflu x disease) K21.9 [facility] [address] [id number] [address] [place] [id number] Nov, Right ankle pain M25.571 [facility] [address] [id number] [address] [place] [id number] Nov, Diabetes mellitus E11.9 [facility] [address] [id number] [address] [place] [id number] Oct, [facility] [address] [id number] [address] [place] [phone] Oct, [facility] [address] [id number] [address] [place] [phone] Oct, [facility] [address] [id number] [address] [place] [phone] Oct, Hyperkalemia E87.5 [facility] [address] [facility] [id number] [address] [place] [phone] Oct, [facility] [address] [facility] [id number] [address] [place] [id number] Oct, Hyperkalemia E87.5 [facility] [address] [facility] [id number] [address] [place] [phone] Sep, [facility] [address] [facility] [id number] [address] [place] [id number] 14 Sep, 2015 [facility] [address] [facility] [id number] [address] [place] [phone] Sep, [facility] [address] [id number] [address] [place] [id number] Sep, [facility] [address] [facility] [id number] [address] [place] [address] Sep, Right ankle pain M25.571 [facility] [address] [id number] [address] [place] [id number] Aug, Chronic kidney disease N18.9 [facility] [address] [id number] [address] [place] [id number] Aug, [facility] [address] [id number] [address] [place] [id number] Aug, Hyperkalemia E87.5 [facility] [address] [facility] [id number] [address] [place] [phone] Aug, [facility] [address] [id number] [address] [place] [phone] Jul, [facility] [address] [facility] [id number] [address] [place] [id number] Jul, [facility] [address] [facility] [id number] [address] [place] [id number] Jul, [facility] [address] [facility] [id number] [address] [place] [id number] Jul, Diabetes mellitus E11.9 ; En counter for immunization Z23 ; Hypertension I10 and Hyperkalemia E87.5 [facility] [address] [id number] [address] [place] [id number] Jul, [facility] [address] [facility] [id number] [address] [place] [id number] Jul, Hyperkalemia E87.5 [facility] [address] [facility] [id number] [address] [place] [id number] Jul, Hyperkalemia E87.5 [facility] [address] [id number] [address] [place] [address], [place] [address] 28 Jun, 2015 [facility] [address] [id number] [address] [place] [address], [place] [address] 21 Jun, 2015 [facility] [address] [id number] [address] [place] [address], [place] [address] 15 Jun, 2015 [facility] [address] [id number] [address] [place] [address], [place] [address] Jun, [facility] [address] [id number] [address] [place] [address], [place] [address] May, [facility] [address] [id number] [address] [place] [address], [place] [address] May, [facility] [address] [id number] [address] [place] [address], [place] [address] May, [facility] [address] [id number] [address] [place] [address], [place] [address] May, Hyperkalemia 276.7 [facility] [address] [id number] [address] [place] [address], [place] [address] May, [facility] [address] [id number] [address] [place] [address], [place] [address] Apr, Hyperkalemia 276.7 [facility] [address] [id number] [address] [place] [address], [place] [address] Apr, [facility] [address] [id number] [address] [place] [address], [place] [address] Apr, [facility] [address] [id number] [address] [place] [address], [place] [address] Apr, [facility] [address] [id number] [address] [place] [address], [place] [address] Apr, [facility] [address] [id number] [address] [place] [address], [place] [address] Apr, Hyperkalemia 276.7 [facility] [address] [id number] [address] [place] [id number] Apr, [facility] [address] [id number] [address] [place] [id number] Apr, [facility] [address] [id number] [address] [place] [id number] Mar, [facility] [address] [id number] [address] [place] [phone] Mar, Hyperkalemia 276.7 [facility] [address] [id number] [address] [place] [phone] Mar, Hyperkalemia 276.7 [facility] [address] [id number] [address] [place] [id number] Mar, [facility] [address] [id number] [address] [place] [id number] Mar, [facility] [address] [id number] [address] [place] [phone] Mar, [facility] [address] [id number] [address] [place] [id number] Mar, [facility] [address] [id number] [address] [place] [id number] Mar, Anserine bursitis 726.61 [facility] [address] [id number] [address] [place] [id number] Mar, Asthma 493.90 and Hyperkalem ia 276.7 [facility] [address] [id number] [address] [place] [id number] Mar, [facility] [address] [id number] [address] [place] [id number] February, [facility] [facility] [address] [id number] [address] [place] [id number] February, [facility] [address] [id number] [address] [place] [id number] February, [facility] [address] [id number] [address] [place] [address], [place] [address] February, [facility] [address] [id number] [address] [place] [address], [place] [address] February, [facility] [address] [id number] [address] [place] [address], [place] [address] February, [facility] [address] [id number] [address] [place] [address], [place] [address] February, [facility] [address] [id number] [address] [place] [address], [place] [address] February, [facility] [address] [id number] [address] [place] [address], [place] [address] February, [facility] [address] [id number] [address] [place] [address], [place] [address] Jan, [facility] [address] [id number] [address] [place] [address], [place] [address] Jan, [facility] [address] [id number] [address] [place] [address], [place] [address] Dec, [facility] [address] [id number] [address] [place] [address], [place] [address] Dec, [facility] [address] [id number] [address] [place] [address], [place] [address] Dec, [facility] [address] [id number] [address] [place] [address], [place] [address] Dec, [facility] [address] [id number] [address] [place] [address], [place] [address] Dec, [facility] [address] [id number] [address] [place] [address], [place] [address] Dec, [facility] [address] [id number] [address] [place] [address], [place] [address] Dec, [facility] [address] [id number] [address] [place] [address], [place] [address] Dec, [facility] [address] [id number] [address] [place] [address], [place] [address] Dec, [facility] [address] [id number] [address] [place] [address], [place] [address] Dec, [facility] [address] [id number] [address] [place] [address], [place] [address] Dec, [facility] [address] [id number] [address] [place] [address], [place] [address] Dec, [facility] [address] [id number] [address] [place] [address], [place] [address] Dec, [facility] [address] [id number] [address] [place] [address], [place] [address] Dec, [facility] [address] [id number] [address] [place] [address], [place] [address] Nov, [facility] [address] [id number] [address] [place] [address], [place] [address] Nov, [facility] [address] [id number] [address] [place] [address], [place] [address] Nov, [facility] [address] [id number] [address] [place] [address], [place] [address] Nov, [facility] [address] [id number] [address] [place] [address], [place] [address] Nov, [facility] [address] [id number] [address] [place] [address], [place] [address] Nov, [facility] [address] [id number] [address] [place] [address], [place] [address] Oct, [facility] [address] [id number] [address] [place] [address], [place] [address] Oct, [facility] [address] [id number] [address] [place] [address], [place] [address] Oct, [facility] [address] [id number] [address] [place] [address], [place] [address] Oct, [facility] [address] [id number] [address] [place] [address], [place] [address] Oct, [facility] [address] [id number] [address] [place] [address], [place] [address] Oct, [facility] [address] [id number] [address] [place] [address], [place] [address] Sep, [facility] [address] [id number] [address] [place] [address], [place] [address] Sep, [facility] [address] [id number] [address] [place] [address], [place] [address] Sep, [facility] [address] [id number] [address] [place] [address], [place] [address] Sep, [facility] [address] [id number] [address] [place] [address], [place] [address] Sep, [facility] [address] [id number] [address] [place] [address], [place] [address] Sep, [facility] [address] [id number] [address] [place] [address], [place] [address] Aug, [facility] [address] [id number] [address] [place] [address], [place] [address] Aug, [facility] [address] [id number] [address] [place] [id number] Aug, [facility] [address] [id number] [address] [place] [address], [place] [address] Aug, [facility] [address] [id number] [address] [place] [address], [place] [address] Aug, [facility] [address] [id number] [address] [place] [address], [place] [address] Aug, [facility] [address] [id number] [address] [place] [id number] Jul, [facility] [address] [id number] [address] [place] [address], [place] [address] Jul, [facility] [address] [id number] [address] [place] [address], [place] [address] Jul, [facility] [address] [id number] [address] [place] [address], [place] [address] Jul, [facility] [address] [id number] [address] [place] [address], [place] [address] Jul, [facility] [address] [id number] [address] [place] [address], [place] [address] Jul, [facility] [address] [id number] [address] [place] [address], [place] [address] Jul, [facility] [address] [id number] [address] [place] [address], [place] [address] Jul, [facility] [address] [id number] [address] [place] [address], [place] [address] Jul, [facility] [address] [id number] [address] [place] [address], [place] [address] Jul, [facility] [address] [id number] [address] [place] [address], [place] [address] Jul, [facility] [address] [id number] [address] [place] [address], [place] [address] Jun, 2013 [facility] [address] [id number] [address] [place] [id number] Jun, [facility] [address] [id number] [address] [place] [address], [place] [address] Jun, [facility] [address] [id number] [address] [place] [address], [place] [address] Jun, 2013 [facility] [address] [id number] [address] [place] [address], [place] [address] Apr, [facility] [address] [id number] [address] [place] [id number] Apr, [facility] [address] [id number] [address] [place] [id number] Apr, [facility] [address] [id number] [address] [place] [id number] Apr, [facility] [address] [id number] [address] [place] [id number] Mar, [facility] [address] [id number] [address] [place] [id number] Mar, [facility] [address] [id number] [address] [place] [id number] Mar, [facility] [address] [id number] [address] [place] [id number] Mar, [facility] [address] [id number] [address] [place] [id number] Mar, [facility] [address] [id number] [address] [place] [id number] Sep, [facility] [address] [id number] [address] [place] [id number] Sep, [facility] [address] [id number] [address] [place] [id number] Aug, IMMUNIZATIONS No Known Immunizations SOCIAL HISTORY Never Assessed REASON FOR VISIT diabetic supplies PLAN OF CARE VITAL SIGNS MEDICATIONS Medication Instructions Dosage Frequency Start Date End Date Duration S tatus Lancet Device - subcutaneously checks blood sugar three times da simi as directed Active Blood Glucose Monitor System w/Device subcutaneously c heck blood sugars three times daily as directed Sep, Active Blood Glucose Test Test Strips subcutaneously 3 times a day chec k blood sugar 8h Nov, Active RESULTS No Results PROCEDURES No Known [...]
--- OUTSIDE RECORDS SUMMARY | 2020-04-01 19:33 | XMS REPORT ---
Author Author Josephine Veras Doctor Organization [facility] Address Unknown Phone Unavailable Care Team Providers Care Provider Relations Coordinator Name Role Phone Migration, Doctor Unavailable Unavailable PROBLEMS Type Condition ICD9-CM Code OYA93-BN Code Onset Dates Condition S tatus SNOMED Code Problem Hypertension I10 Active 5961492 3 Problem Chronic kidney disease N18.9 Active 498778947 Problem Diabetes mellitus E11.9 Active 73 285418 Problem Diabetic polyneuropathy associated with type 2 d iabetes mellitus E11.42 Active 48611506 Problem Paresthesias R20.2 Active 4193294 4 Problem Gastroparesis K31.84 Active 942508 006 Problem Type 2 diabetes mellitus with diabetic autonomic (poly)neuropathy E11.43 Active 860286831 Problem Chronic skin ulcer with fat layer exposed L98.492 Active 15010982 Problem Unsteady gait R26.81 Active 384028 08 Problem GERD (gastroesophageal reflux disease) K21.9 Active 251751722 Problem PAD (peripheral artery disease) I73.9 Active 045477234 Problem Venous insufficiency I87.2 Active 94159923 Problem Chronic osteomyelitis of right foot with draining sinus M86.471 Active 213966999218647 Problem Type 2 diabetes mellitus with foot ulcer E11.621 Active 77774105772239 Problem 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 Active 098566026 Problem Pressure ulcer of unspecified heel, stage 4 L89.60 4 Active [id number] ALLERGIES No Information ENCOUNTERS Encounter Location Date Diagnosis [facility] [address] [facility] [id number] [address] [place] [phone] Jan, [facility] [address] [facility] [id number] [address] [place] [phone] Jan, [facility] [address] [facility] [id number] [address] [place] [id number] Dec, [facility] [address] [facility] [id number] [address] [place] [phone] Dec, Diabetic polyneuropathy asso ciated with type 2 diabetes mellitus E11.42 and PAD (peripheral artery disease) I73.9 [facility] [address] [id number] [address] [place] [phone] Dec, Chronic skin ulcer with fat layer exposed L98.492 [facility] [address] [id number] [address] [place] [phone] Dec, [facility] [address] [id number] [address] [place] [id number] Nov, [facility] [address] [facility] [id number] [address] [place] [phone] Nov, Skin ulcer of right foot wit h fat layer exposed L97.512 [facility] [address] [id number] [address] [place] [phone] Oct, [facility] [address] [facility] [id number] [address] [place] [phone] Oct, Skin ulcer of right foot wit h fat layer exposed L97.512 [facility] [address] [id number] [address] [place] [phone] Sep, Diabetes mellitus E11.9 [facility] [address] [id number] [address] [place] [phone] Sep, [facility] [address] [facility] [id number] [address] [place] [phone] Sep, [facility] [address] [id number] [address] [place] [phone] Sep, [facility] [address] [facility] [id number] [address] [place] [id number] Sep, Type 2 diabetes mellitus wit h foot ulcer E11.621 and Skin ulcer of right foot with fat layer exposed L97.512 [facility] [address] [id number] [address] [place] [phone] Sep, Diabetes mellitus E11.9 [facility] [address] [id number] [address] [place] [phone] 07 Sep, 2018 [facility] [address] [id number] [address] [place] [id number] Aug, [facility] [address] [id number] [address] [place] [id number] Aug, [facility] [address] [facility] [id number] [address] [place] [phone] Aug, 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 [facility] [address] [id number] [address] [place] [id number] Aug, [facility] [address] [facility] [id number] [address] [place] [phone] Aug, [facility] [address] [facility] [id number] [address] [place] [phone] Aug, Bronchitis J40 [facility] [address] [facility] [id number] [address] [place] [phone] Aug, [facility] [address] [facility] [id number] [address] [place] [id number] Jul, [facility] [address] [facility] [id number] [address] [place] [phone] Jul, Chronic skin ulcer with fat layer exposed L98.492 [facility] [address] [id number] [address] [place] [id number] Jul, 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 [facility] [address] [id number] [address] [place] [id number] Jun, [facility] [address] [facility] [id number] [address] [place] [phone] Jun, [facility] [address] [facility] [id number] [address] [place] [phone] May, [facility] [address] [facility] [id number] [address] [place] [phone] May, Chronic skin ulcer with fat layer exposed L98.492 [facility] [address] [facility] [id number] [address] [place] [phone] Apr, [facility] [address] [facility] [id number] [address] [place] [id number] Apr, Type 2 diabetes mellitus wit h foot ulcer E11.621 and Unsteady gait R26.81 [place] [address] [facility] [id number] [address] [place] [phone] Mar, Decubitus ulcer of right mariana l, stage 3 L89.613 [place] [address] [facility] [id number] [address] [place] [phone] Mar, [place] [address] [facility] [id number] [address] [place] [id number] Mar, Pressure ulcer of unspecifie d heel, stage 4 L89.604 and Type 2 diabetes mellitus with foot ulcer E11.621 [place] [address] [facility] [id number] [address] [place] [id number] Mar, Encounter for medication mon itoring Z51.81 [place] [address] [facility] [id number] [address] [place] [address] Mar, Type 2 diabetes mellitus wit h foot ulcer E11.621 and Non-pressure chronic ulcer of right heel and midfoot with unspecified severity L97.419 [place] [address] [facility] [id number] [address] [place] [phone] February, [place] [address] [facility] [id number] [address] [place] [phone] Jan, Right ankle pain M25.571 [place] [address] [facility] [id number] [address] [place] [phone] Dec, Right ankle pain M25.571 [place] [address] [facility] [id number] [address] [place] [phone] Dec, [facility] [address] [facility] [id number] [address] [place] [id number] Dec, [facility] [address] [facility] [id number] [address] [place] [phone] Dec, Right ankle pain M25.571 [facility] [address] [place] [id number] [address] [place] [address] Dec, Chronic skin ulcer with fat layer exposed L98.492 ; Type 2 diabetes mellitus with diabetic autonomic (poly)neuropathy E11.43 and Hypertension I10 [facility] [address] [place] [id number] [address] [place] [phone] Nov, [place] [address] [place] [id number] [address] [place] [phone] Nov, [facility] [address] [place] [id number] [address] [place] [phone] Nov, [facility] [address] [place] [id number] [address] [place] [phone] Nov, Right ankle pain M25.571 and Chronic osteomyelitis of right foot with draining sinus M86.471 [place] [address] [place] [id number] [address] [place] [id number] Oct, Right ankle pain M25.571 [facility] [address] [place] [id number] [address] [place] [phone] Oct, [facility] [address] [place] [id number] [address] [place] [phone] Sep, Diabetes mellitus E11.9 [facility] [address] [place] [id number] [address] [place] [id number] Sep, Diabetic polyneuropathy asso ciated with type 2 diabetes mellitus E11.42 and Venous insufficiency I87.2 [facility] [address] [place] [id number] [address] [place] [phone] Sep, Right ankle pain M25.571 [facility] [address] [id number] [address] [place] [id number] Aug, Right ankle pain M25.571 [facility] [address] [id number] [address] [place] [phone] Aug, Chronic osteomyelitis of rig foot with draining sinus M86.471 [facility] [address] [id number] [address] [place] [id number] Aug, [facility] [address] [id number] [address] [place] [id number] Aug, [facility] [address] [id number] [address] [place] [phone] Aug, Chronic osteomyelitis of rig foot with draining sinus M86.471 [facility] [address] [id number] [address] [place] [id number] Jul, [facility] [address] [id number] [address] [place] [phone] Jul, [facility] [address] [id number] [address] [place] [phone] Jul, Chronic kidney disease N18.9 [facility] [address] [id number] [address] [place] [phone] Jul, Right ankle pain M25.571 [facility] [address] [id number] [address] [place] [id number] Jul, Non-healing ulcer of right f oot, unspecified ulcer stage L97.519 [facility] [address] [id number] [address] [place] [id number] Jul, Chronic skin ulcer with fat layer exposed L98.492 [facility] [address] [id number] [address] [place] [id number] Jul, Deformity of right ankle nitza nt M21.961 [facility] [address] [id number] [address] [place] [phone] 27 Jun, 2017 [facility] [address] [facility] [id number] [address] [place] [phone] 21 Jun, 2017 Diabetes mellitus E11.9 ; Sk in ulcer of right foot with fat layer exposed L97.512 and Encounter for immunization Z23 [facility] [address] [id number] [address] [place] [id number] 18 Jun, 2017 Right ankle pain M25.571 [facility] [address] [id number] [address] [place] [phone] May, Right ankle pain M25.571 [facility] [address] [facility] [id number] [address] [place] [id number] Apr, Right ankle pain M25.571 [facility] [address] [facility] [id number] [address] [place] [phone] Mar, Right ankle pain M25.571 [facility] [address] [id number] [address] [place] [phone] Mar, [facility] [address] [facility] [id number] [address] [place] [phone] February, Diabetes mellitus E11.9 and Diabetic polyneuropathy associated with type 2 diabetes mellitus E11.42 [facility] [address] [facility] [id number] [address] [place] [phone] February, Hyperkalemia E87.5 [facility] [address] [id number] [address] [place] [phone] February, Right ankle pain M25.571 [facility] [address] [facility] [id number] [address] [place] [id number] Jan, Right ankle pain M25.571 [facility] [address] [facility] [id number] [address] [place] [id number] Dec, Right ankle pain M25.571 [facility] [address] [place] [id number] [place] [phone] Dec, Right ankle pain M25.571 [facility] [address] [place] [id number] [place] [phone] Nov, [facility] [address] [place] [id number] [place] [phone] Nov, Diabetes mellitus E11.9 ; Hy pertension I10 ; Gastroparesis K31.84 and Type 2 diabetes mellitus with diabetic autonomic (poly)neuropathy E11.43 [facility] [address] [place] [id number] [place] [phone] Nov, Right ankle pain M25.571 [facility] [address] [place] [id number] [place] [phone] Oct, Right ankle pain M25.571 [facility] [address] [phone] Oct, [facility] [address] [id number] Oct, [facility] [address] [phone] Sep, [facility] [address] [place] [id number] [place] [phone] Sep, Hypertension I10 [facility] [address] [phone] Sep, Chronic kidney disease N18.9 ; Right ankle pain M25.571 and GERD (gastroesophageal reflux disease) K21.9 [facility] [address] [place] [id number] [place] [phone] Jul, [facility] [address] [place] [id number] [place] [phone] Jul, Encounter for immunization Z 23 ; Venous insufficiency I87.2 and Diabetic polyneuropathy associated with type 2 diabetes mellitus E11.42 [facility] [address] [place] [id number] [address] [place] [id number] Jul, [facility] [address] [id number] [address] [place] [phone] Jul, Diabetes mellitus E11.9 [facility] [address] [id number] [address] [place] [phone] May, [facility] [address] [id number] [address] [place] [phone] Apr, [facility] [address] [id number] [address] [place] [phone] Mar, Right ankle pain M25.571 [facility] [address] [id number] [address] [place] [id number] Mar, [facility] [address] [id number] [address] [place] [phone] February, Paresthesias R20.2 [facility] [address] [id number] [address] [place] [phone] February, [facility] [address] [id number] [address] [place] [phone] February, 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 [facility] [address] [id number] [address] [place] [phone] February, Diabetes mellitus E11.9 [facility] [address] [id number] [address] [place] [phone] February, [facility] [address] [id number] [address] [place] [phone] February, Polyneuropathy in diabetes 3 57.2 and Paresthesias R20.2 [facility] [address] [id number] [address] [place] [phone] February, [facility] [address] [id number] [address] [place] [phone] February, [facility] [address] [id number] [address] [place] [phone] February, [facility] [address] [id number] [address] [place] [phone] February, Diabetes mellitus E11.9 [facility] [address] [id number] [address] [place] [phone] February, [facility] [address] [facility] [id number] [address] [place] [phone] February, Hyperkalemia E87.5 [facility] [address] [facility] [id number] [address] [place] [phone] Jan, Hypertension I10 [facility] [address] [facility] [id number] [address] [place] [id number] Jan, Insomnia G47.00 [facility] [address] [facility] [id number] [address] [place] [phone] Jan, [facility] [address] [facility] [id number] [address] [place] [phone] Jan, [facility] [address] [facility] [id number] [address] [place] [phone] Jan, [facility] [address] [facility] [id number] [address] [place] [phone] Dec, Right ankle pain M25.571 [facility] [address] [facility] [id number] [address] [place] [phone] Dec, GERD (gastroesophageal reflu x disease) K21.9 [facility] [address] [facility] [id number] [address] [place] [id number] Dec, Insomnia G47.00 [facility] [address] [facility] [id number] [address] [place] [phone] Dec, Hypertension I10 and Hyperka lemia 276.7 [facility] [address] [facility] [id number] [address] [place] [phone] Dec, Chronic kidney disease N18.9 [facility] [address] [id number] [address] [place] [phone] Dec, [facility] [address] [id number] [address] [place] [phone] Dec, Hyperkalemia E87.5 [facility] [address] [facility] [id number] [address] [place] [id number] Dec, Chronic kidney disease N18.9 and Right ankle pain M25.571 [facility] [address] [id number] [address] [place] [phone] 11 Nov, 2015 GERD (gastroesophageal reflu x disease) K21.9 [facility] [address] [id number] [address] [place] [phone] 03 Nov, 2015 Right ankle pain M25.571 [facility] [address] [facility] [id number] [address] [place] [phone] Nov, Diabetes mellitus E11.9 [facility] [address] [id number] [address] [place] [phone] Oct, [facility] [address] [facility] [id number] [address] [place] [phone] Oct, [facility] [address] [facility] [id number] [address] [place] [phone] Oct, [facility] [address] [facility] [id number] [address] [place] [phone] Oct, Hyperkalemia E87.5 [facility] [address] [id number] [address] [place] [phone] Oct, [facility] [address] [facility] [id number] [address] [place] [phone] Oct, Hyperkalemia E87.5 [facility] [address] [facility] [id number] [address] [place] [phone] Sep, [facility] [address] [facility] [id number] [address] [place] [id number] 14 Sep, 2015 [facility] [address] [id number] [address] [place] [phone] Sep, [facility] [address] [id number] [address] [place] [phone] Sep, [facility] [address] [id number] [address] [place] [id number] Sep, Right ankle pain M25.571 [facility] [address] [id number] [address] [place] [phone] Aug, Chronic kidney disease N18.9 [facility] [address] [id number] [address] [place] [id number] Aug, [facility] [address] [id number] [address] [place] [phone] Aug, Hyperkalemia E87.5 [facility] [address] [id number] [address] [place] [phone] Aug, [facility] [address] [id number] [address] [place] [id number] Jul, [facility] [address] [facility] [id number] [address] [place] [phone] Jul, [facility] [address] [id number] [address] [place] [phone] Jul, [facility] [address] [facility] [id number] [address] [place] [phone] Jul, Diabetes mellitus E11.9 ; En counter for immunization Z23 ; Hypertension I10 and Hyperkalemia E87.5 [facility] [address] [id number] [address] [place] [id number] Jul, [facility] [address] [id number] [address] [place] [id number] Jul, Hyperkalemia E87.5 [facility] [address] [id number] [address] [place] [address] [place] [address] Jul, Hyperkalemia E87.5 [facility] [address] [id number] [address] [place] [address], [place] [address] Jun, [facility] [address] [id number] [address] [place] [address], [place] [address] Jun, [facility] [address] [id number] [address] [place] [address], [place] [address] Jun, [facility] [address] [id number] [address] [place] [address], [place] [address] Jun, [facility] [address] [id number] [address] [place] [address], [place] [address] May, [facility] [address] [id number] [address] [place] [address], [place] [address] May, [facility] [address] [id number] [address] [place] [address], [place] [address] May, [facility] [address] [id number] [address] [place] [address], [place] [address] May, Hyperkalemia 276.7 [facility] [address] [id number] [address] [place] [address], [place] [address] May, [facility] [address] [id number] [address] [place] [address], [place] [address] Apr, Hyperkalemia 276.7 [facility] [address] [id number] [address] [place] [address], [place] [address] Apr, [facility] [address] [id number] [address] [place] [address], [place] [address] Apr, [facility] [address] [id number] [address] [place] [address], [place] [address] Apr, [facility] [address] [id number] [address] [place] [address], [place] [address] Apr, [facility] [address] [id number] [address] [place] [address] 14 Apr, 2015 Hyperkalemia 276.7 [facility] [address] [id number] [address] [place] [address] Apr, [facility] [address] [id number] [address] [place] [address] Apr, [facility] [address] [id number] [address] [place] [address] Mar, [facility] [address] [id number] [address] [place] [address] Mar, Hyperkalemia 276.7 [facility] [address] [id number] [address] [place] [address] Mar, Hyperkalemia 276.7 [facility] [address] [id number] [address] [place] [address] Mar, [facility] [address] [id number] [address] [place] [address] Mar, [facility] [address] [id number] [address] [place] [address] Mar, [facility] [address] [id number] [address] [place] [address] Mar, [facility] [address] [id number] [address] [place] [address] Mar, Anserine bursitis 726.61 [facility] [address] [id number] [address] [place] [address] Mar, Asthma 493.90 and Hyperkalem ia 276.7 [facility] [address] [id number] [address] [place] [address] Mar, [facility] [address] [id number] [address] [place] [address] February, [facility] [address] [id number] [address] [place] [address] February, [facility] [address] [id number] [address] [place] [address], [place] [address] February, [facility] [address] [id number] [address] [place] [address], [place] [address] February, [facility] [address] [id number] [address] [place] [address], [place] [address] February, [facility] [address] [id number] [address] [place] [address], [place] [address] February, [facility] [address] [id number] [address] [place] [address], [place] [address] February, [facility] [address] [id number] [address] [place] [address], [place] [address] February, [facility] [address] [id number] [address] [place] [address], [place] [address] February, [facility] [address] [id number] [address] [place] [address], [place] [address] Jan, [facility] [address] [id number] [address] [place] [address], [place] [address] Jan, [facility] [address] [id number] [address] [place] [address], [place] [address] Dec, [facility] [address] [id number] [address] [place] [address], [place] [address] Dec, [facility] [address] [id number] [address] [place] [address], [place] [address] Dec, [facility] [address] [id number] [address] [place] [address], [place] [address] Dec, [facility] [address] [id number] [address] [place] [address], [place] [address] Dec, [facility] [address] [id number] [address] [place] [address], [place] [address] Dec, [facility] [address] [id number] [address] [place] [address], [place] [address] Dec, [facility] [address] [id number] [address] [place] [address], [place] [address] Dec, [facility] [address] [id number] [address] [place] [address], [place] [address] Dec, [facility] [address] [id number] [address] [place] [address], [place] [address] Dec, [facility] [address] [id number] [address] [place] [address], [place] [address] Dec, [facility] [address] [id number] [address] [place] [address], [place] [address] Dec, [facility] [address] [id number] [address] [place] [address], [place] [address] Dec, [facility] [address] [id number] [address] [place] [address], [place] [address] Dec, [facility] [address] [id number] [address] [place] [address], [place] [address] Nov, [facility] [address] [id number] [address] [place] [address], [place] [address] Nov, [facility] [address] [id number] [address] [place] [address], [place] [address] Nov, [facility] [address] [id number] [address] [place] [address], [place] [address] Nov, [facility] [address] [id number] [address] [place] [address], [place] [address] Nov, [facility] [address] [id number] [address] [place] [address], [place] [address] Nov, [facility] [address] [id number] [address] [place] [address], [place] [address] Oct, [facility] [address] [id number] [address] [place] [address] [address] Oct, [facility] [address] [id number] [address] [place] [address], [place] [address] Oct, [facility] [address] [id number] [address] [place] [address], [place] [address] Oct, [facility] [address] [id number] [address] [place] [address], [place] [address] Oct, [facility] [address] [id number] [address] [place] [address], [place] [address] Oct, [facility] [address] [id number] [address] [place] [address], [place] [address] Sep, [facility] [address] [id number] [address] [place] [address], [place] [address] Sep, [facility] [address] [id number] [address] [place] [address], [place] [address] Sep, [facility] [address] [id number] [address] [place] [address], [place] [address] Sep, [facility] [address] [id number] [address] [place] [address], [place] [address] Sep, [facility] [address] [id number] [address] [place] [address], [place] [address] Sep, [facility] [address] [id number] [address] [place] [address], [place] [address] Aug, [facility] [address] [id number] [address] [place] [address], [place] [address] Aug, [facility] [address] [id number] [address] [place] [address], [place] [address] Aug, [facility] [address] [id number] [address] [place] [address], [place] [address] Aug, [facility] [address] [id number] [address] [place] [address], [place] [address] Aug, [facility] [address] [id number] [address] [place] [address], [place] [address] Aug, [facility] [address] [id number] [address] [place] [address], [place] [address] Jul, [facility] [address] [id number] [address] [place] [address], [place] [address] Jul, [facility] [address] [id number] [address] [place] [address], [place] [address] Jul, [facility] [address] [id number] [address] [place] [address], [place] [address] Jul, [facility] [address] [id number] [address] [place] [address], [place] [address] Jul, [facility] [address] [id number] [address] [place] [address], [place] [address] Jul, [facility] [address] [id number] [address] [place] [address], [place] [address] Jul, [facility] [address] [id number] [address] [place] [address], [place] [address] Jul, [facility] [address] [id number] [address] [place] [address], [place] [address] Jul, [facility] [address] [id number] [address] [place] [address], [place] [address] Jul, [facility] [address] [id number] [address] [place] [address], [place] [address] Jul, [facility] [address] [id number] [address] [place] [address], [place] [address] Jun, [facility] [address] [id number] [address] [place] [address], [place] [address] Jun, [facility] [address] [id number] [address] [place] [address], [place] [address] Jun, [facility] [address] [id number] [address] [place] [address], [place] [address] Jun, [facility] [address] [id number] [address] [place] [address] Apr, [facility] [address] [id number] [address] [place] [address] Apr, [facility] [address] [id number] [address] [place] [address] Apr, [facility] [address] [id number] [address] [place] [address] Apr, [facility] [address] [id number] [address] [place] [id number] Mar, [facility] [address] [id number] [address] [place] [address] Mar, [facility] [address] [id number] [address] [place] [address] Mar, [facility] [address] [id number] [address] [place] [address] Mar, [facility] [address] [id number] [address] [place] [address] Mar, [facility] [address] [id number] [address] [place] [address] Sep, [facility] [address] [id number] [address] [place] [address] Sep, [facility] [address] [id number] [address] [place] [address] Aug, IMMUNIZATIONS No Known Immunizations SOCIAL HISTORY Never Assessed REASON FOR VISIT [place] [place] C[place] VITAL SIGNS MEDICATIONS Unknown [...]
--- OUTSIDE RECORDS SUMMARY | 2020-04-01 19:34 | XMS REPORT ---
Author Author Josephine HANCOCK Organization [facility] Address [address] [place] [address] Care Team Providers Care Air Sampling And Monitoring Name Role Phone KARISSA SERGIO Unavailable PROBLEMS Type Condition ICD9-CM Code IVR79-VB Code Onset Dates Condition S tatus SNOMED Code Problem GERD (gastroesophageal reflux disease) K21.9 Active 816221338 Problem Type 2 diabetes mellitus with diabetic autonomic (poly)neuropathy E11.43 Active 589089414 Problem Gastroparesis K31.84 Active 094874 006 Problem Unsteady gait R26.81 Active 542574 08 Problem Pressure ulcer of unspecified heel, stage 4 L89.60 4 Active 966836179 Problem Chronic osteomyelitis of right foot with draining sinus M86.471 Active 265874893336909 Problem Chronic skin ulcer with fat layer exposed L98.492 Active 01969360 Problem 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 Active 624612974 Problem Type 2 diabetes mellitus with foot ulcer E11.621 Active 18013201006980 Problem Chronic kidney disease N18.9 Active 947410084 Problem Paresthesias R20.2 Active 9272009 4 Problem Hypertension I10 Active 3913297 3 Problem Diabetic polyneuropathy associated with type 2 d iabetes mellitus E11.42 Active 15964290 Problem Diabetes mellitus E11.9 Active 73 693243 Problem Venous insufficiency I87.2 Active 54194571 ALLERGIES Substance Reaction Event Type Date Status Sulfacetamide Sodium Unknown Drug Allergy Aug, Active Plavix caused bleeding Drug Allergy Aug, Active Neurontin Makes her disoriented Drug Allergy Aug, Active Lyrica dizziness Drug Allergy Aug, Active ENCOUNTERS Encounter Location Date Diagnosis [facility] [address] [facility] [id number] [address] [place] [id number] Sep, [facility] [address] [facility] [id number] [address] [place] [id number] Aug, [facility] [address] [id number] [address] [place] [id number] Aug, 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 [facility] [address] [id number] [address] [place] [id number] Aug, [facility] [address] [id number] [address] [place] [id number] Aug, [facility] [address] [id number] [address] [place] [id number] Aug, Bronchitis J40 [facility] [address] [id number] [address] [place] [id number] Aug, [facility] [address] [id number] [address] [place] [id number] Jul, [facility] [address] [id number] [address] [place] [id number] Jul, Chronic skin ulcer with fat layer exposed L98.492 [facility] [address] [id number] [address] [place] [id number] Jul, 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 [facility] [address] [id number] [address] [place] [id number] Jun, [facility] [address] [id number] [address] [place] [id number] Jun, [facility] [address] [id number] [address] [place] [id number] May, [facility] [address] [id number] [address] [place] [id number] May, Chronic skin ulcer with fat layer exposed L98.492 [facility] [address] [id number] [address] [place] [id number] Apr, [facility] [address] [place] [id number] Apr, Type 2 diabetes mellitus wit h foot ulcer E11.621 and Unsteady gait R26.81 [place] [address] [place] [id number] Mar, Decubitus ulcer of right mariana l, stage 3 L89.613 [place] [address] [address] Mar, [place] [address] [address] Mar, Pressure ulcer of unspecifie d heel, stage 4 L89.604 and Type 2 diabetes mellitus with foot ulcer E11.621 [place] [address] [address] Mar, Encounter for medication mon itoring Z51.81 [place] [address] [address] Mar, Type 2 diabetes mellitus wit h foot ulcer E11.621 and Non-pressure chronic ulcer of right heel and midfoot with unspecified severity L97.419 [place] [address] [place] [id number] [address] [place] [id number] February, [place] [address] [place] [id number] [address] [place] [id number] Jan, Right ankle pain M25.571 [place] [address] [place] [id number] [address] [place] [id number] Dec, Right ankle pain M25.571 [place] [address] [place] [id number] [address] [place] [id number] Dec, [place] [address] [place] [id number] [address] [place] [id number] Dec, [place] [address] [place] [id number] [address] [place] [id number] Dec, Right ankle pain M25.571 [facility] [address] [facility] [id number] [address] [place] [id number] Dec, Chronic skin ulcer with fat layer exposed L98.492 ; Type 2 diabetes mellitus with diabetic autonomic (poly)neuropathy E11.43 and Hypertension I10 [facility] [address] [facility] [id number] [address] [place] [id number] Nov, [facility] [address] [id number] [address] [place] [id number] Nov, [facility] [address] [facility] [id number] [address] [place] [id number] Nov, [facility] [address] [facility] [id number] [address] [place] [id number] Nov, Right ankle pain M25.571 and Chronic osteomyelitis of right foot with draining sinus M86.471 [facility] [address] [facility] [id number] [address] [place] [id number] Oct, Right ankle pain M25.571 [facility] [address] [facility] [id number] [address] [place] [id number] Oct, [facility] [address] [facility] [id number] [address] [place] [id number] Sep, Diabetes mellitus E11.9 [facility] [address] [facility] [id number] [address] [place] [id number] Sep, Diabetic polyneuropathy asso ciated with type 2 diabetes mellitus E11.42 and Venous insufficiency I87.2 [facility] [address] [facility] [id number] [address] [place] [id number] Sep, Right ankle pain M25.571 [facility] [address] [facility] [id number] [address] [place] [id number] Aug, Right ankle pain M25.571 [facility] [address] [facility] [id number] [address] [place] [id number] Aug, Chronic osteomyelitis of rig ht foot with draining sinus M86.471 [facility] [address] [id number] [address] [place] [id number] Aug, [facility] [address] [id number] [address] [place] [id number] Aug, [facility] [address] [id number] [address] [place] [id number] Aug, Chronic osteomyelitis of rig ht foot with draining sinus M86.471 [facility] [address] [id number] [address] [place] [id number] Jul, [facility] [address] [id number] [address] [place] [id number] Jul, [facility] [address] [id number] [address] [place] [id number] Jul, Chronic kidney disease N18.9 [facility] [address] [id number] [address] [place] [id number] Jul, Right ankle pain M25.571 [facility] [address] [id number] [address] [place] [id number] Jul, Non-healing ulcer of right f oot, unspecified ulcer stage L97.519 [facility] [address] [facility] [id number] [address] [place] [id number] Jul, Chronic skin ulcer with fat layer exposed L98.492 [facility] [address] [facility] [id number] [address] [place] [id number] Jul, Deformity of right ankle nitza nt M21.961 [facility] [address] [id number] [address] [place] [id number] Jun, [facility] [address] [facility] [id number] [address] [place] [id number] Jun, Diabetes mellitus E11.9 ; Sk in ulcer of right foot with fat layer exposed L97.512 and Encounter for immunization Z23 [facility] [address] [id number] [address] [place] [id number] Jun, Right ankle pain M25.571 [facility] [address] [facility] [id number] [address] [place] [id number] May, Right ankle pain M25.571 [facility] [address] [facility] [id number] [address] [place] [id number] Apr, Right ankle pain M25.571 [facility] [address] [id number] [address] [place] [id number] Mar, Right ankle pain M25.571 [facility] [address] [facility] [id number] [address] [place] [id number] Mar, [facility] [address] [facility] [id number] [address] [place] [id number] February, Diabetes mellitus E11.9 and Diabetic polyneuropathy associated with type 2 diabetes mellitus E11.42 [facility] [address] [facility] [id number] [address] [place] [id number] February, Hyperkalemia E87.5 [facility] [address] [facility] [id number] [address] [place] [id number] February, Right ankle pain M25.571 [facility] [address] [facility] [id number] [address] [place] [id number] Jan, Right ankle pain M25.571 [facility] [address] [facility] [id number] [address] [place] [id number] Dec, Right ankle pain M25.571 [facility] [address] [facility] [id number] [address] [place] [id number] Dec, Right ankle pain M25.571 [facility] [address] [facility] [id number] [address] [place] [id number] Nov, [facility] [address] [facility] [id number] [address] [place] [id number] Nov, Diabetes mellitus E11.9 ; Hy pertension I10 ; Gastroparesis K31.84 and Type 2 diabetes mellitus with diabetic autonomic (poly)neuropathy E11.43 [facility] [address] [facility] [id number] [address] [place] [id number] Nov, Right ankle pain M25.571 [facility] [address] [facility] [id number] [address] [place] [id number] Oct, Right ankle pain M25.571 [facility] [address] [facility] [id number] [address] [place] [id number] Oct, [place] [address] [place] [id number] [place] [phone] Oct, [facility] [address] [place] [id number] [place] [id number] Sep, [place] [address] [address] Sep, Hypertension I10 [facility] [address] [place] [id number] [place] [id number] Sep, Chronic kidney disease N18.9 ; Right ankle pain M25.571 and GERD (gastroesophageal reflux disease) K21.9 [place] [id number] [place] [id number] [address] [place] [id number] Jul, [place] [address] [place] [id number] [place] [phone] Jul, Encounter for immunization Z 23 ; Venous insufficiency I87.2 and Diabetic polyneuropathy associated with type 2 diabetes mellitus E11.42 [facility] [address] [facility] [id number] [address] [place] [id number] Jul, [place] [address] [place] [id number] [place] [id number] Jul, Diabetes mellitus E11.9 [facility] [address] [place] [id number] [address] [place] [id number] May, [facility] [address] [id number] [address] [place] [id number] Apr, [facility] [address] [id number] [address] [place] [id number] Mar, Right ankle pain M25.571 [facility] [address] [id number] [address] [place] [id number] Mar, [facility] [address] [id number] [address] [place] [id number] February, Paresthesias R20.2 [facility] [address] [id number] [address] [place] [id number] February, [facility] [address] [id number] [address] [place] [id number] February, 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 [facility] [address] [id number] [address] [place] [id number] February, Diabetes mellitus E11.9 [facility] [address] [id number] [address] [place] [id number] February, [facility] [address] [id number] [address] [place] [id number] February, Polyneuropathy in diabetes 3 57.2 and Paresthesias R20.2 [facility] [address] [id number] [address] [place] [id number] February, [facility] [address] [id number] [address] [place] [id number] February, [facility] [address] [id number] [address] [place] [id number] February, [facility] [address] [facility] [id number] [address] [place] [id number] February, Diabetes mellitus E11.9 [facility] [address] [id number] [address] [place] [id number] February, [facility] [address] [facility] [id number] [address] [place] [id number] February, Hyperkalemia E87.5 [facility] [address] [facility] [id number] [address] [place] [id number] Jan, Hypertension I10 [facility] [address] [facility] [id number] [address] [place] [id number] Jan, Insomnia G47.00 [facility] [address] [facility] [id number] [address] [place] [id number] Jan, [facility] [address] [facility] [id number] [address] [place] [id number] Jan, [facility] [address] [place] [id number] [address] [place] [phone] Jan, [facility] [address] [address] Dec, Right ankle pain M25.571 [facility] [address] [facility] [id number] [address] [place] [id number] Dec, GERD (gastroesophageal reflu x disease) K21.9 [facility] [address] [place] [id number] [address] [place] [id number] Dec, Insomnia G47.00 [facility] [address] [facility] [id number] [address] [place] [id number] Dec, Hypertension I10 and Hyperka lemia 276.7 [facility] [address] [facility] [id number] [address] [place] [id number] Dec, Chronic kidney disease N18.9 [facility] [address] [facility] [id number] [address] [place] [id number] Dec, [facility] [address] [facility] [id number] [address] [place] [id number] Dec, Hyperkalemia E87.5 [facility] [address] [place] [id number] [address] [place] [id number] Dec, Chronic kidney disease N18.9 and Right ankle pain M25.571 [facility] [address] [id number] [address] [place] [id number] 11 Nov, 2015 GERD (gastroesophageal reflu x disease) K21.9 [facility] [address] [id number] [address] [place] [id number] Nov, Right ankle pain M25.571 [facility] [address] [id number] [address] [place] [id number] Nov, Diabetes mellitus E11.9 [facility] [address] [id number] [address] [place] [id number] Oct, [facility] [address] [id number] [address] [place] [phone] Oct, [facility] [address] [id number] [address] [place] [id number] Oct, [facility] [address] [id number] [address] [place] [id number] Oct, Hyperkalemia E87.5 [facility] [address] [id number] [address] [place] [phone] Oct, [facility] [address] [id number] [address] [place] [id number] Oct, Hyperkalemia E87.5 [facility] [address] [id number] [address] [place] [id number] Sep, [facility] [address] [id number] [address] [place] [phone] Sep, [facility] [address] [id number] [address] [place] [id number] Sep, [facility] [address] [id number] [address] [place] [id number] Sep, [facility] [address] [id number] [address] [place] [id number] Sep, Right ankle pain M25.571 [facility] [address] [id number] [address] [place] [id number] Aug, Chronic kidney disease N18.9 [facility] [address] [id number] [address] [place] [id number] Aug, [facility] [address] [facility] [id number] [address] [place] [id number] Aug, Hyperkalemia E87.5 [facility] [address] [id number] [address] [place] [id number] Aug, [facility] [address] [facility] [id number] [address] [place] [id number] Jul, [facility] [address] [facility] [id number] [address] [place] [id number] Jul, [facility] [address] [facility] [id number] [address] [place] [id number] Jul, [facility] [address] [facility] [id number] [address] [place] [id number] Jul, Diabetes mellitus E11.9 ; En counter for immunization Z23 ; Hypertension I10 and Hyperkalemia E87.5 [facility] [address] [facility] [id number] [address] [place] [id number] Jul, [facility] [address] [facility] [id number] [address] [place] [id number] Jul, Hyperkalemia E87.5 [facility] [address] [facility] [id number] [address] [place] [id number] Jul, Hyperkalemia E87.5 [facility] [address] [facility] [id number] [address] [place] [id number] Jun, [facility] [address] [facility] [id number] [address] [place] [id number] Jun, [facility] [address] [id number] [address] [place] [address], [place] [phone] 15 Jun, 2015 [facility] [address] [id number] [address] [place] [address], [place] [address] Jun, [facility] [address] [id number] [address] [place] [address], [place] [address] May, [facility] [address] [id number] [address] [place] [address], [place] [address] May, [facility] [address] [id number] [address] [place] [address], [place] [id number] May, [facility] [address] [id number] [address] [place] [address], [place] [address] May, Hyperkalemia 276.7 [facility] [address] [id number] [address] [place] [address], [place] [phone] May, [facility] [address] [id number] [address] [place] [address], [place] [address] Apr, Hyperkalemia 276.7 [facility] [address] [id number] [address] [place] [address], [place] [address] Apr, [facility] [address] [id number] [address] [place] [address], [place] [address] Apr, [facility] [address] [id number] [address] [place] [address], [place] [address] Apr, [facility] [address] [id number] [address] [place] [address], [place] [address] Apr, [facility] [address] [id number] [address] [place] [address], [place] [address] Apr, Hyperkalemia 276.7 [facility] [address] [id number] [address] [place] [address], [place] [address] Apr, [facility] [address] [id number] [address] [place] [address], [place] [id number] Apr, [facility] [place] [address] [id number] [address] [place] [id number] Mar, [facility] [address] [id number] [address] [place] [id number] Mar, Hyperkalemia 276.7 [facility] [place] [address] [id number] [address] [place] [id number] Mar, Hyperkalemia 276.7 [facility] [place] [address] [id number] [address] [place] [id number] Mar, [facility] [place] [address] [id number] [address] [place] [id number] Mar, [facility] [place] [address] [id number] [address] [place] [id number] Mar, [facility] [place] [address] [id number] [address] [place] [id number] Mar, [facility] [place] [address] [id number] [address] [place] [id number] Mar, Anserine bursitis 726.61 [facility] [place] [address] [id number] [address] [place] [id number] Mar, Asthma 493.90 and Hyperkalem ia 276.7 [facility] [address] [id number] [address] [place] [id number] Mar, [facility] [place] [address] [id number] [address] [place] [id number] February, [facility] [place] [address] [id number] [address] [place] [id number] February, [facility] [place] [address] [id number] [address] [place] [id number] February, [facility] [place] [address] [id number] [address] [place] [id number] February, [facility] [place] [address] [id number] [address] [place] [id number] February, [facility] [address] [id number] [address] [place] [address], [place] [id number] February, [facility] [address] [id number] [address] [place] [address], [place] [id number] February, [facility] [address] [id number] [address] [place] [address], [place] [id number] February, [facility] [address] [id number] [address] [place] [address], [place] [id number] February, [facility] [address] [id number] [address] [place] [address], [place] [id number] Jan, [facility] [address] [id number] [address] [place] [address], [place] [address] Jan, [facility] [address] [id number] [address] [place] [address], [place] [id number] Dec, [facility] [address] [id number] [address] [place] [address], [place] [address] Dec, [facility] [address] [id number] [address] [place] [address], [place] [address] Dec, [facility] [address] [id number] [address] [place] [address], [place] [address] Dec, [facility] [address] [id number] [address] [place] [address], [place] [id number] Dec, [facility] [address] [id number] [address] [place] [address], [place] [address] Dec, [facility] [address] [id number] [address] [place] [address], [place] [address] Dec, [facility] [address] [id number] [address] [place] [address], [place] [id number] Dec, [facility] [address] [id number] [address] [place] [address], [place] [id number] Dec, [facility] [address] [id number] [address] [place] [address], [place] [address] Dec, [facility] [address] [id number] [address] [place] [address], [place] [address] Dec, [facility] [address] [id number] [address] [place] [address], [place] [id number] Dec, [facility] [address] [id number] [address] [place] [address], [place] [address] Dec, [facility] [address] [id number] [address] [place] [address], [place] [id number] Dec, [facility] [address] [id number] [address] [place] [address], [place] [id number] Nov, [facility] [address] [id number] [address] [place] [address], [place] [id number] Nov, [facility] [address] [id number] [address] [place] [address], [place] [id number] Nov, [facility] [address] [id number] [address] [place] [address], [place] [id number] Nov, [facility] [address] [id number] [address] [place] [address], [place] [address] Nov, [facility] [address] [id number] [address] [place] [address], [place] [address] Nov, [facility] [address] [id number] [address] [place] [address], [place] [id number] Oct, [facility] [address] [id number] [address] [place] [address], [place] [address] Oct, [facility] [address] [id number] [address] [place] [address], [place] [address] Oct, [facility] [address] [id number] [address] [place] [address], [place] [id number] Oct, [facility] [address] [id number] [address] [place] [id number] Oct, [facility] [address] [id number] [address] [place] [address], [place] [address] Oct, [facility] [address] [id number] [address] [place] [address], [place] [address] Sep, [facility] [address] [id number] [address] [place] [address], [place] [address] Sep, [facility] [address] [id number] [address] [place] [address], [place] [address] Sep, [facility] [address] [id number] [address] [place] [address], [place] [address] Sep, [facility] [address] [id number] [address] [place] [address], [place] [id number] Sep, [facility] [address] [id number] [address] [place] [address], [place] [address] Sep, [facility] [address] [id number] [address] [place] [address], [place] [address] Aug, [facility] [address] [id number] [address] [place] [address], [place] [address] Aug, [facility] [address] [id number] [address] [place] [address], [place] [address] Aug, [facility] [address] [id number] [address] [place] [address], [place] [address] Aug, [facility] [address] [id number] [address] [place] [id number] Aug, [facility] [address] [id number] [address] [place] [address], [place] [address] Aug, [facility] [address] [id number] [address] [place] [address], [place] [address] Jul, [facility] [address] [id number] [address] [place] [address], [place] [address] Jul, [facility] [address] [id number] [address] [place] [address], [place] [address] Jul, [facility] [address] [id number] [address] [place] [address], [place] [address] Jul, [facility] [address] [id number] [address] [place] [address], [place] [address] Jul, [facility] [address] [id number] [address] [place] [address], [place] [address] Jul, [facility] [address] [id number] [address] [place] [address], [place] [address] Jul, [facility] [address] [id number] [address] [place] [address], [place] [address] Jul, [facility] [address] [id number] [address] [place] [address], [place] [address] Jul, [facility] [address] [id number] [address] [place] [address], [place] [address] Jul, [facility] [address] [id number] [address] [place] [address], [place] [address] Jul, [facility] [address] [id number] [address] [place] [address], [place] [address] Jun, [facility] [address] [id number] [address] [place] [address], [place] [id number] Jun, [facility] [address] [id number] [address] [place] [address], [place] [address] Jun, [facility] [address] [id number] [address] [place] [address], [place] [address] Jun, [facility] [address] [id number] [address] [place] [address], [place] [address] Apr, [facility] [address] [id number] [address] [place] [address], [place] [address] Apr, [facility] [address] [id number] [address] [place] [address], [place] [address] Apr, [facility] [address] [id number] [address] [place] [id number] Apr, [facility] [address] [id number] [address] [place] [id number] Mar, [facility] [address] [id number] [address] [place] [id number] Mar, [facility] [address] [id number] [address] [place] [id number] Mar, [facility] [address] [id number] [address] [place] [id number] Mar, [facility] [address] [id number] [address] [place] [id number] Mar, [facility] [address] [id number] [address] [place] [id number] Sep, [facility] [address] [id number] [address] [place] [id number] Sep, [facility] [address] [id number] [address] [place] [id number] Aug, IMMUNIZATIONS No Known Immunizations SOCIAL HISTORY Never Assessed REASON FOR VISIT wound care - Andrés JAVIER PLAN OF CARE Activity Details Follow Up 4 Weeks Reason:foot ulcer VITAL SIGNS Height 62 in 2018-09-16 Weight 150 lbs 2018-09-16 Temperature 97.7 degrees Fahrenheit 2018-09-16 Heart Rate 62 bpm 2018-09-16 Respiratory Rate 18 2018-09-16 BMI 27.43 kg/m2 2018-09-16 Blood pressure systolic 118 mmHg 2018-09-16 Blood pressure diastolic 60 mmHg 2018-09-16 MEDICATIONS Medication Instructions Dosage Frequency Start Date End Date Duration S tatus Furosemide 40 mg Orally Once a day 2 tablet 24h 30 Active Silvadene 1 % Externally Once a day 1 application to affected area 24h Apr, Active Cinnamon 500 mg Orally Once a day 4 capsules 24h Active ProAir HFA 108 (90 Base) MCG/ACT Inhalation every 4 hrs 2 puffs as needed 4h Mar, Active Zofran ODT 4 MG Orally every 8 hrs 1 tablet 8h 10 Active Amitriptyline HCl 25 MG TAKE ONE TO THRE E TABLETS BY MOUTH AT BEDTIME NEEDED 30 Active Oxycodone HCl 5 mg Orally every 6 hrs 1 tablet as needed 6h 20 Aug, 2018 28 days Active Calcium Acetate (Phos Binder) 667 MG Orally Three times a da y 2 tablets with meals 8h Active Blood Glucose Test Test Strips subcutaneously 3 times a day chec k blood sugar 8h Nov, Active NovoFine 32 gauge USE WITH INSULIN PENS THREE TIMES A DAY 30 Active Vitamin D 1000 UNIT Orally Once a day 5 tablet 24h Active BD Insulin Syringe MicroFine 28G X 1/2 use with insulin 8h Jul, Active Wheelchair DX Non-healing right ankle fracture Jul, 014 Active Accu-Chek Niru Plus - TEST BLOOD SUGAR THREE TIMES A DAY Active Stool Softener 100 MG Orally 2 times a day 1 capsule as needed 12h Active Glucometer ... subcutaneously one time Accu-check Nov, Active Atenolol 25 MG TAKE TWO TABLETS BY MOUTH ONCE DAILY 30 Active Amlodipine Besylate 10 MG TAKE ONE TABLET BY MOUTH ONCE DAILY 30 Active Marie Contour Next Test - TEST BLOOD SUGAR THREE TIMES A DAY E11.9 30 Active Pantoprazole Sodium 40 MG TAKE ONE TABLET BY MOUTH ONCE DAILY 30 Active MiraLax - Orally Once a day take 17 g mixed with 8 oz. water or juice by Oral route 1 time per day 24h 07 Aug, 2014 Active Diabetic Shoes wear with ambulation Sep, Active Levemir FlexTouch 100 unit/mL (3 mL) Subcutaneous Once a day 10 Uni ts 24h Jul, Active RESULTS No Results PROCEDURES No Known [...] V C oct 2016 Hospitalization History Pneumonia [place] 06/2018 Hospitalization History fistula in left arm 07/2018
--- OUTSIDE RECORDS SUMMARY | 2020-04-01 19:34 | XMS REPORT ---
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 Name Role Phone OLYA WILLIS Unavailable PROBLEMS Type Condition ICD9-CM Code EQS45-MG Code Onset Dates Condition S tatus SNOMED Code Problem GERD (gastroesophageal reflux disease) K21.9 Active 662109135 Problem Type 2 diabetes mellitus with diabetic autonomic (poly)neuropathy E11.43 Active 850309599 Problem Gastroparesis K31.84 Active 996460 006 Problem Unsteady gait R26.81 Active 577582 08 Problem Pressure ulcer of unspecified heel, stage 4 L89.60 4 Active 639859180 Problem Chronic osteomyelitis of right foot with draining sinus M86.471 Active 534007018345637 Problem Chronic skin ulcer with fat layer exposed L98.492 Active 98559709 Problem 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 Active 956378979 Problem Type 2 diabetes mellitus with foot ulcer E11.621 Active 27620929166250 Problem Chronic kidney disease N18.9 Active 510173009 Problem Paresthesias R20.2 Active 3293443 4 Problem Hypertension I10 Active 3622188 3 Problem Diabetic polyneuropathy associated with type 2 d iabetes mellitus E11.42 Active 98998444 Problem Diabetes mellitus E11.9 Active 73 248598 Problem Venous insufficiency I87.2 Active 15542216 ALLERGIES No Information ENCOUNTERS Encounter Location Date Diagnosis [facility] [address] [facility] [id number] [address] [place] [address] Sep, [facility] [address] [facility] [id number] [address] [place] [address] Aug, [facility] [address] [facility] [id number] [address] [place] [address] Aug, [facility] [address] [id number] [address] [place] [address] Aug, 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 [facility] [address] [id number] [address] [place] [address] Aug, [facility] [address] [id number] [address] [place] [address] Aug, [facility] [address] [id number] [address] [place] [address] Aug, Bronchitis J40 [facility] [address] [id number] [address] [place] [address] Aug, [facility] [address] [id number] [address] [place] [address] Jul, [facility] [address] [id number] [address] [place] [address] Jul, Chronic skin ulcer with fat layer exposed L98.492 [facility] [address] [id number] [address] [place] [address] Jul, 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 [facility] [address] [id number] [address] [place] [address] Jun, [facility] [address] [id number] [address] [place] [address] Jun, [facility] [address] [id number] [address] [place] [address] May, [facility] [address] [id number] [address] [place] [address] May, Chronic skin ulcer with fat layer exposed L98.492 [facility] [address] [id number] [address] [place] [address] Apr, [facility] [address] [id number] [address] [place] [address] Apr, Type 2 diabetes mellitus wit h foot ulcer E11.621 and Unsteady gait R26.81 [place] [address] [facility] [id number] [address] [place] [address] Mar, Decubitus ulcer of right mariana l, stage 3 L89.613 [place] [address] [facility] [id number] [address] [place] [address] Mar, [place] [address] [facility] [id number] [address] [place] [address] Mar, Pressure ulcer of unspecifie d heel, stage 4 L89.604 and Type 2 diabetes mellitus with foot ulcer E11.621 [place] [address] [facility] [id number] [address] [place] [address] Mar, Encounter for medication mon itoring Z51.81 [place] [address] [address] [place] [id number] [address] [place] [address] Mar, Type 2 diabetes mellitus wit h foot ulcer E11.621 and Non-pressure chronic ulcer of right heel and midfoot with unspecified severity L97.419 [place] [address] [facility] [id number] [address] [place] [address] February, [place] [address] [facility] [id number] [address] [place] [address] Jan, Right ankle pain M25.571 [place] [address] [facility] [id number] [address] [place] [address] Dec, Right ankle pain M25.571 [place] [address] [facility] [id number] [address] [place] [address] Dec, [place] [address] [facility] [id number] [address] [place] [address] Dec, [place] [address] [facility] [id number] [address] [place] [address] Dec, Right ankle pain M25.571 [place] [address] [facility] [id number] [address] [place] [address] Dec, Chronic skin ulcer with fat layer exposed L98.492 ; Type 2 diabetes mellitus with diabetic autonomic (poly)neuropathy E11.43 and Hypertension I10 [facility] [address] [id number] [address] [place] [address] Nov, [facility] [address] [id number] [address] [place] [address] Nov, [facility] [address] [id number] [address] [place] [address] Nov, [facility] [address] [facility] [id number] [address] [place] [address] Nov, Right ankle pain M25.571 and Chronic osteomyelitis of right foot with draining sinus M86.471 [place] [address] [facility] [id number] [address] [place] [address] Oct, Right ankle pain M25.571 [facility] [address] [id number] [address] [place] [address] Oct, [facility] [address] [facility] [id number] [address] [place] [address] Sep, Diabetes mellitus E11.9 [facility] [address] [facility] [id number] [address] [place] [address] Sep, Diabetic polyneuropathy asso ciated with type 2 diabetes mellitus E11.42 and Venous insufficiency I87.2 [facility] [address] [facility] [id number] [address] [place] [address] Sep, Right ankle pain M25.571 [facility] [address] [facility] [id number] [address] [place] [address] Aug, Right ankle pain M25.571 [facility] [address] [facility] [id number] [address] [place] [address] Aug, Chronic osteomyelitis of rig ht foot with draining sinus M86.471 [facility] [address] [id number] [address] [place] [address] Aug, [facility] [address] [id number] [address] [place] [address] Aug, [facility] [address] [id number] [address] [place] [address] Aug, Chronic osteomyelitis of rig ht foot with draining sinus M86.471 [facility] [address] [id number] [address] [place] [address] Jul, [facility] [address] [id number] [address] [place] [address] Jul, [facility] [address] [facility] [id number] [address] [place] [address] Jul, Chronic kidney disease N18.9 [facility] [address] [facility] [id number] [address] [place] [address] Jul, Right ankle pain M25.571 [facility] [address] [facility] [id number] [address] [place] [address] Jul, Non-healing ulcer of right f oot, unspecified ulcer stage L97.519 [facility] [address] [facility] [id number] [address] [place] [address] Jul, Chronic skin ulcer with fat layer exposed L98.492 [facility] [address] [facility] [id number] [address] [place] [address] Jul, Deformity of right ankle nitza nt M21.961 [facility] [address] [facility] [id number] [address] [place] [address] Jun, [facility] [address] [facility] [id number] [address] [place] [address] Jun, Diabetes mellitus E11.9 ; Sk in ulcer of right foot with fat layer exposed L97.512 and Encounter for immunization Z23 [facility] [address] [facility] [id number] [address] [place] [address] Jun, Right ankle pain M25.571 [facility] [address] [facility] [id number] [address] [place] [address] May, Right ankle pain M25.571 [facility] [address] [facility] [id number] [address] [place] [address] Apr, Right ankle pain M25.571 [facility] [address] [facility] [id number] [address] [place] [address] Mar, Right ankle pain M25.571 [facility] [address] [id number] [address] [place] [address] Mar, [facility] [address] [facility] [id number] [address] [place] [address] February, Diabetes mellitus E11.9 and Diabetic polyneuropathy associated with type 2 diabetes mellitus E11.42 [facility] [address] [facility] [id number] [address] [place] [address] February, Hyperkalemia E87.5 [facility] [address] [facility] [id number] [address] [place] [address] February, Right ankle pain M25.571 [facility] [address] [facility] [id number] [address] [place] [address] Jan, Right ankle pain M25.571 [facility] [address] [facility] [id number] [address] [place] [address] Dec, Right ankle pain M25.571 [facility] [address] [facility] [id number] [address] [place] [address] Dec, Right ankle pain M25.571 [facility] [address] [facility] [id number] [address] [place] [address] Nov, [facility] [address] [facility] [id number] [address] [place] [address] Nov, Diabetes mellitus E11.9 ; Hy pertension I10 ; Gastroparesis K31.84 and Type 2 diabetes mellitus with diabetic autonomic (poly)neuropathy E11.43 [facility] [address] [facility] [id number] [address] [place] [address] Nov, Right ankle pain M25.571 [facility] [address] [facility] [id number] [address] [place] [address] Oct, Right ankle pain M25.571 [facility] [address] [facility] [id number] [address] [place] [address] Oct, [facility] [address] [facility] [id number] [address] [place] [address] Oct, [place] [address] [place] [id number] [address] [place] [address] Sep, [place] [address] [address] Sep, Hypertension I10 [facility] [address] [place] [id number] [address] [place] [address] Sep, Chronic kidney disease N18.9 ; Right ankle pain M25.571 and GERD (gastroesophageal reflux disease) K21.9 [place] [address] [address] [place] [id number] [address] [place] [address] Jul, [facility] [address] [place] [id number] [address] [place] [address] Jul, Encounter for immunization Z 23 ; Venous insufficiency I87.2 and Diabetic polyneuropathy associated with type 2 diabetes mellitus E11.42 [facility] [address] [facility] [id number] [address] [place] [address] Jul, [facility] [address] [place] [id number] [place] [address] Jul, Diabetes mellitus E11.9 [facility] [address] [place] [id number] [address] [place] [address] May, [facility] [address] [place] [id number] [place] [address] Apr, [facility] [address] [id number] [address] [place] [address] Mar, Right ankle pain M25.571 [facility] [address] [id number] [address] [place] [address] Mar, [facility] [address] [id number] [address] [place] [address] February, Paresthesias R20.2 [facility] [address] [id number] [address] [place] [address] February, [facility] [address] [id number] [address] [place] [address] February, 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 [facility] [address] [id number] [address] [place] [address] February, Diabetes mellitus E11.9 [facility] [address] [id number] [address] [place] [address] February, [facility] [address] [id number] [address] [place] [address] February, Polyneuropathy in diabetes 3 57.2 and Paresthesias R20.2 [facility] [address] [id number] [address] [place] [address] February, [facility] [address] [id number] [address] [place] [address] February, [facility] [address] [id number] [address] [place] [address] February, [facility] [address] [id number] [address] [place] [address] February, Diabetes mellitus E11.9 [facility] [address] [id number] [address] [place] [address] February, [facility] [address] [id number] [address] [place] [address] February, Hyperkalemia E87.5 [facility] [address] [id number] [address] [place] [address] Jan, Hypertension I10 [facility] [address] [facility] [id number] [address] [place] [address] Jan, Insomnia G47.00 [facility] [address] [facility] [id number] [address] [place] [address] Jan, [facility] [address] [facility] [id number] [address] [place] [address] Jan, [facility] [address] [facility] [id number] [address] [place] [address] Jan, [facility] [address] [facility] [id number] [address] [place] [address] Dec, Right ankle pain M25.571 [facility] [address] [facility] [id number] [address] [place] [address] Dec, GERD (gastroesophageal reflu x disease) K21.9 [facility] [address] [facility] [id number] [address] [place] [address] Dec, Insomnia G47.00 [facility] [address] [facility] [id number] [address] [place] [address] Dec, Hypertension I10 and Hyperka lemia 276.7 [facility] [address] [facility] [id number] [address] [place] [address] Dec, Chronic kidney disease N18.9 [facility] [address] [facility] [id number] [address] [place] [address] Dec, [facility] [address] [facility] [id number] [address] [place] [address] Dec, Hyperkalemia E87.5 [facility] [address] [facility] [id number] [address] [place] [address] Dec, Chronic kidney disease N18.9 and Right ankle pain M25.571 [facility] [address] [id number] [address] [place] [address] 11 Nov, 2015 GERD (gastroesophageal reflu x disease) K21.9 [facility] [address] [id number] [address] [place] [address] 03 Nov, 2015 Right ankle pain M25.571 [facility] [address] [id number] [address] [place] [address] Nov, Diabetes mellitus E11.9 [facility] [address] [id number] [address] [place] [address] Oct, [facility] [address] [id number] [address] [place] [address] Oct, [facility] [address] [id number] [address] [place] [address] Oct, [facility] [address] [id number] [address] [place] [address] Oct, Hyperkalemia E87.5 [facility] [address] [id number] [address] [place] [address] Oct, [facility] [address] [id number] [address] [place] [address] Oct, Hyperkalemia E87.5 [facility] [address] [id number] [address] [place] [address] Sep, [facility] [address] [id number] [address] [place] [address] Sep, [facility] [address] [id number] [address] [place] [address] Sep, [facility] [address] [facility] [id number] [address] [place] [address] Sep, [facility] [address] [facility] [id number] [address] [place] [address] Sep, Right ankle pain M25.571 [facility] [address] [id number] [address] [place] [address] Aug, Chronic kidney disease N18.9 [facility] [address] [id number] [address] [place] [address] Aug, [facility] [address] [id number] [address] [place] [address] Aug, Hyperkalemia E87.5 [facility] [address] [id number] [address] [place] [address] Aug, [facility] [address] [id number] [address] [place] [address] Jul, [facility] [address] [id number] [address] [place] [address] Jul, [facility] [address] [facility] [id number] [address] [place] [address] Jul, [facility] [address] [facility] [id number] [address] [place] [address] Jul, Diabetes mellitus E11.9 ; En counter for immunization Z23 ; Hypertension I10 and Hyperkalemia E87.5 [facility] [address] [facility] [id number] [address] [place] [address] Jul, [facility] [address] [facility] [id number] [address] [place] [address] Jul, Hyperkalemia E87.5 [facility] [address] [facility] [id number] [address] [place] [address] Jul, Hyperkalemia E87.5 [facility] [address] [id number] [address] [place] [address] Jun, [facility] [address] [facility] [id number] [address] [place] [address] Jun, [facility] [address] [facility] [id number] [address] [place] [id number] 15 Jun, 2015 [facility] [address] [id number] [address] [place] [address], [place] [address] Jun, [facility] [address] [id number] [address] [place] [address], [place] [address] May, [facility] [address] [id number] [address] [place] [address], [place] [address] May, [facility] [address] [id number] [address] [place] [address], [place] [address] May, [facility] [address] [id number] [address] [place] [address], [place] [address] May, Hyperkalemia 276.7 [facility] [address] [id number] [address] [place] [address], [place] [address] May, [facility] [address] [id number] [address] [place] [address], [place] [address] Apr, Hyperkalemia 276.7 [facility] [address] [id number] [address] [place] [address], [place] [address] Apr, [facility] [address] [id number] [address] [place] [address], [place] [address] Apr, [facility] [address] [id number] [address] [place] [address], [place] [address] Apr, [facility] [address] [id number] [address] [place] [address], [place] [address] Apr, [facility] [address] [id number] [address] [place] [address], [place] [address] Apr, Hyperkalemia 276.7 [facility] [address] [id number] [address] [place] [address], [place] [address] Apr, [facility] [address] [id number] [address] [place] [address], [place] [address] Apr, [facility] [address] [id number] [address] [place] [id number] Mar, [facility] [address] [id number] [address] [place] [id number] Mar, Hyperkalemia 276.7 [facility] [address] [id number] [address] [place] [id number] Mar, Hyperkalemia 276.7 [facility] [address] [id number] [address] [place] [id number] Mar, [facility] [address] [id number] [address] [place] [id number] Mar, [facility] [address] [id number] [address] [place] [id number] Mar, [facility] [address] [id number] [address] [place] [id number] Mar, [facility] [address] [id number] [address] [place] [id number] Mar, Anserine bursitis 726.61 [facility] [address] [id number] [address] [place] [id number] Mar, Asthma 493.90 and Hyperkalem ia 276.7 [facility] [address] [id number] [address] [place] [id number] Mar, [facility] [address] [id number] [address] [place] [id number] February, [facility] [address] [id number] [address] [place] [id number] February, [facility] [address] [id number] [address] [place] [id number] February, [facility] [address] [address] [id number] [address] [place] [address] February, [facility] [address] [id number] [address] [place] [address] February, [facility] [address] [id number] [address] [place] [address], [place] [address] February, [facility] [address] [id number] [address] [place] [address], [place] [address] February, [facility] [address] [id number] [address] [place] [address], [place] [address] February, [facility] [address] [id number] [address] [place] [address], [place] [address] February, [facility] [address] [id number] [address] [place] [address], [place] [address] Jan, [facility] [address] [id number] [address] [place] [address], [place] [address] Jan, [facility] [address] [id number] [address] [place] [address], [place] [address] Dec, [facility] [address] [id number] [address] [place] [address], [place] [address] Dec, [facility] [address] [id number] [address] [place] [address], [place] [address] Dec, [facility] [address] [id number] [address] [place] [address], [place] [address] Dec, [facility] [address] [id number] [address] [place] [address], [place] [address] Dec, [facility] [address] [id number] [address] [place] [address], [place] [address] Dec, [facility] [address] [id number] [address] [place] [address], [place] [address] Dec, [facility] [address] [id number] [address] [place] [address], [place] [address] Dec, [facility] [address] [id number] [address] [place] [address], [place] [address] Dec, [facility] [address] [id number] [address] [place] [address], [place] [address] Dec, [facility] [address] [id number] [address] [place] [address], [place] [address] Dec, [facility] [address] [id number] [address] [place] [address], [place] [address] Dec, [facility] [address] [id number] [address] [place] [address], [place] [address] Dec, [facility] [address] [id number] [address] [place] [address], [place] [address] Dec, [facility] [address] [id number] [address] [place] [address], [place] [address] Nov, [facility] [address] [id number] [address] [place] [address], [place] [address] Nov, [facility] [address] [id number] [address] [place] [address], [place] [address] Nov, [facility] [address] [id number] [address] [place] [address], [place] [address] Nov, [facility] [address] [id number] [address] [place] [address], [place] [address] Nov, [facility] [address] [id number] [address] [place] [address], [place] [address] Nov, [facility] [address] [id number] [address] [place] [address], [place] [address] Oct, [facility] [address] [id number] [address] [place] [address], [place] [address] Oct, [facility] [address] [id number] [address] [place] [address], [place] [address] Oct, [facility] [address] [id number] [address] [place] [address], [place] [address] Oct, [facility] [address] [id number] [address] [place] [address] Oct, [facility] [address] [id number] [address] [place] [address], [place] [address] Oct, [facility] [address] [id number] [address] [place] [address], [place] [address] Sep, [facility] [address] [id number] [address] [place] [address], [place] [address] Sep, [facility] [address] [id number] [address] [place] [address], [place] [address] Sep, [facility] [address] [id number] [address] [place] [address], [place] [address] Sep, [facility] [address] [id number] [address] [place] [address], [place] [address] Sep, [facility] [address] [id number] [address] [place] [address], [place] [address] Sep, [facility] [address] [id number] [address] [place] [address], [place] [address] Aug, [facility] [address] [id number] [address] [place] [address], [place] [address] Aug, [facility] [address] [id number] [address] [place] [address], [place] [address] Aug, [facility] [address] [id number] [address] [place] [address], [place] [address] Aug, [facility] [address] [id number] [address] [place] [address], [place] [address] Aug, [facility] [address] [id number] [address] [place] [address], [place] [address] Aug, [facility] [address] [id number] [address] [place] [address], [place] [address] Jul, [facility] [address] [id number] [address] [place] [address], [place] [address] Jul, [facility] [address] [id number] [address] [place] [address], [place] [address] Jul, [facility] [address] [id number] [address] [place] [address], [place] [address] Jul, [facility] [address] [id number] [address] [place] [address], [place] [address] Jul, [facility] [address] [id number] [address] [place] [address], [place] [address] Jul, [facility] [address] [id number] [address] [place] [address], [place] [address] Jul, [facility] [address] [id number] [address] [place] [address], [place] [address] Jul, [facility] [address] [id number] [address] [place] [address], [place] [address] Jul, [facility] [address] [id number] [address] [place] [address], [place] [address] Jul, [facility] [address] [id number] [address] [place] [address], [place] [address] Jul, [facility] [address] [id number] [address] [place] [address], [place] [address] Jun, [facility] [address] [id number] [address] [place] [address], [place] [address] Jun, [facility] [address] [id number] [address] [place] [address], [place] [address] Jun, [facility] [address] [id number] [address] [place] [address], [place] [address] Jun, [facility] [address] [id number] [address] [place] [address], [place] [address] Apr, [facility] [address] [id number] [address] [place] [address], [place] [address] Apr, [facility] [address] [id number] [address] [place] [address], [place] [address] Apr, [facility] [address] [id number] [address] [place] [address] Apr, [facility] [address] [id number] [address] [place] [address] Mar, [facility] [address] [id number] [address] [place] [address] Mar, [facility] [address] [id number] [address] [place] [address] Mar, [facility] [address] [id number] [address] [place] [address] Mar, [facility] [address] [id number] [address] [place] [address] Mar, [facility] [address] [id number] [address] [place] [address] Sep, [facility] [address] [id number] [address] [place] [address] Sep, [facility] [address] [id number] [address] [place] [address] Aug, IMMUNIZATIONS No Known Immunizations SOCIAL HISTORY Never Assessed REASON FOR VISIT Medication question PLAN OF CARE VITAL SIGNS MEDICATIONS Unknown [...] V C oct 2016 Hospitalization History Pneumonia [place] [facility] 06/2018 Hospitalization History fistula in left arm 07/2018
--- OUTSIDE RECORDS SUMMARY | 2020-04-01 19:34 | XMS REPORT ---
Author Author Josephine HANCOCK Organization [facility] Address [address] [place] [address] Care Team Providers Care Metallurgy Laboratory Technician Name Role Phone KARISSA SERGIO Unavailable PROBLEMS Type Condition ICD9-CM Code GIF30-LT Code Onset Dates Condition S tatus SNOMED Code Problem GERD (gastroesophageal reflux disease) K21.9 Active 968642658 Problem Type 2 diabetes mellitus with diabetic autonomic (poly)neuropathy E11.43 Active 466563857 Problem Gastroparesis K31.84 Active 077321 006 Problem Unsteady gait R26.81 Active 711430 08 Problem Pressure ulcer of unspecified heel, stage 4 L89.60 4 Active 288799234 Problem Chronic osteomyelitis of right foot with draining sinus M86.471 Active [id number] Problem Chronic skin ulcer with fat layer exposed L98.492 Active 33337272 Problem 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 Active 633164792 Problem Type 2 diabetes mellitus with foot ulcer E11.621 Active 91988338315841 Problem Chronic kidney disease N18.9 Active 625827458 Problem Paresthesias R20.2 Active 5299526 4 Problem Hypertension I10 Active 7859776 3 Problem Diabetic polyneuropathy associated with type 2 d iabetes mellitus E11.42 Active 76978678 Problem Diabetes mellitus E11.9 Active 73 507801 Problem Venous insufficiency I87.2 Active 08029283 ALLERGIES No Information ENCOUNTERS Encounter Location Date Diagnosis [facility] [address] [facility] [id number] [address] [place] [phone] Sep, [facility] [address] [facility] [id number] [address] [place] [phone] Aug, [facility] [address] [facility] [id number] [address] [place] [address] Aug, [facility] [address] [id number] [address] [place] [phone] Aug, 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 [facility] [address] [id number] [address] [place] [address] Aug, [facility] [address] [id number] [address] [place] [phone] Aug, [facility] [address] [id number] [address] [place] [address] Aug, Bronchitis J40 [facility] [address] [id number] [address] [place] [phone] Aug, [facility] [address] [id number] [address] [place] [id number] Jul, [facility] [address] [id number] [address] [place] [address] Jul, Chronic skin ulcer with fat layer exposed L98.492 [facility] [address] [id number] [address] [place] [address] Jul, 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 [facility] [address] [id number] [address] [place] [address] Jun, [facility] [address] [id number] [address] [place] [phone] Jun, [facility] [address] [id number] [address] [place] [address] May, [facility] [address] [id number] [address] [place] [address] May, Chronic skin ulcer with fat layer exposed L98.492 [facility] [address] [id number] [address] [place] [address] Apr, [facility] [address] [id number] [address] [place] [address] Apr, Type 2 diabetes mellitus wit h foot ulcer E11.621 and Unsteady gait R26.81 [facility] [address] [facility] [id number] [address] [place] [address] Mar, Decubitus ulcer of right mariana l, stage 3 L89.613 [facility] [address] [facility] [id number] [address] [place] [address] Mar, [facility] [address] [facility] [id number] [address] [place] [address] Mar, Pressure ulcer of unspecifie d heel, stage 4 L89.604 and Type 2 diabetes mellitus with foot ulcer E11.621 [facility] [facility] [address] [place] [id number] [address] [place] [address] Mar, Encounter for medication mon itoring Z51.81 [facility] [address] [place] [id number] [address] [place] [address] Mar, Type 2 diabetes mellitus wit h foot ulcer E11.621 and Non-pressure chronic ulcer of right heel and midfoot with unspecified severity L97.419 [facility] [address] [place] [id number] [address] [place] [address] February, [facility] [address] [place] [id number] [address] [place] [address] Jan, Right ankle pain M25.571 [facility] [address] [facility] [id number] [address] [place] [address] Dec, Right ankle pain M25.571 [facility] [address] [facility] [id number] [address] [place] [address] Dec, [facility] [address] [place] [id number] [address] [place] [address] Dec, [facility] [address] [facility] [id number] [address] [place] [address] Dec, Right ankle pain M25.571 [facility] [address] [place] [id number] [address] [place] [address] Dec, Chronic skin ulcer with fat layer exposed L98.492 ; Type 2 diabetes mellitus with diabetic autonomic (poly)neuropathy E11.43 and Hypertension I10 [facility] [address] [facility] [id number] [address] [place] [address] Nov, [facility] [address] [facility] [id number] [address] [place] [address] Nov, [facility] [address] [facility] [id number] [address] [place] [address] Nov, [facility] [address] [facility] [id number] [address] [place] [address] Nov, Right ankle pain M25.571 and Chronic osteomyelitis of right foot with draining sinus M86.471 [facility] [address] [place] [id number] [address] [place] [address] Oct, Right ankle pain M25.571 [facility] [address] [facility] [id number] [address] [place] [address] Oct, [facility] [address] [place] [id number] [address] [place] [phone] Sep, Diabetes mellitus E11.9 [facility] [address] [facility] [id number] [address] [place] [address] Sep, Diabetic polyneuropathy asso ciated with type 2 diabetes mellitus E11.42 and Venous insufficiency I87.2 [facility] [address] [facility] [id number] [address] [place] [address] Sep, Right ankle pain M25.571 [facility] [address] [place] [id number] [address] [place] [address] Aug, Right ankle pain M25.571 [facility] [address] [facility] [id number] [address] [place] [address] Aug, Chronic osteomyelitis of rig ht foot with draining sinus M86.471 [facility] [address] [facility] [id number] [address] [place] [address] Aug, [facility] [address] [facility] [id number] [address] [place] [id number] Aug, [facility] [address] [facility] [id number] [address] [place] [address] Aug, Chronic osteomyelitis of rig ht foot with draining sinus M86.471 [facility] [address] [facility] [id number] [address] [place] [phone] Jul, [facility] [address] [facility] [id number] [address] [place] [phone] Jul, [facility] [address] [place] [id number] [address] [place] [address] Jul, Chronic kidney disease N18.9 [facility] [address] [place] [id number] [address] [place] [address] Jul, Right ankle pain M25.571 [facility] [address] [facility] [id number] [address] [place] [address] Jul, Non-healing ulcer of right f oot, unspecified ulcer stage L97.519 [facility] [address] [place] [id number] [address] [place] [address] Jul, Chronic skin ulcer with fat layer exposed L98.492 [facility] [address] [place] [id number] [address] [place] [phone] Jul, Deformity of right ankle nitza nt M21.961 [facility] [address] [facility] [id number] [address] [place] [address] Jun, [facility] [address] [place] [id number] [address] [place] [address] Jun, Diabetes mellitus E11.9 ; Sk in ulcer of right foot with fat layer exposed L97.512 and Encounter for immunization Z23 [facility] [address] [place] [id number] [address] [place] [address] Jun, Right ankle pain M25.571 [facility] [address] [facility] [id number] [address] [place] [address] May, Right ankle pain M25.571 [facility] [address] [facility] [id number] [address] [place] [address] Apr, Right ankle pain M25.571 [facility] [address] [facility] [id number] [address] [place] [address] Mar, Right ankle pain M25.571 [facility] [address] [facility] [id number] [address] [place] [address] Mar, [facility] [address] [facility] [id number] [address] [place] [address] February, Diabetes mellitus E11.9 and Diabetic polyneuropathy associated with type 2 diabetes mellitus E11.42 [facility] [address] [facility] [id number] [address] [place] [address] February, Hyperkalemia E87.5 [facility] [address] [facility] [id number] [address] [place] [address] February, Right ankle pain M25.571 [facility] [address] [facility] [id number] [address] [place] [address] Jan, Right ankle pain M25.571 [facility] [address] [facility] [id number] [address] [place] [address] Dec, Right ankle pain M25.571 [facility] [address] [facility] [id number] [address] [place] [address] Dec, Right ankle pain M25.571 [facility] [address] [facility] [id number] [address] [place] [address] Nov, [facility] [address] [facility] [id number] [address] [place] [phone] Nov, Diabetes mellitus E11.9 ; Hy pertension I10 ; Gastroparesis K31.84 and Type 2 diabetes mellitus with diabetic autonomic (poly)neuropathy E11.43 [facility] [address] [facility] [id number] [address] [place] [address] Nov, Right ankle pain M25.571 [facility] [address] [facility] [id number] [address] [place] [id number] Oct, Right ankle pain M25.571 [facility] [address] [facility] [id number] [address] [place] [id number] Oct, [facility] [address] [facility] [id number] [address] [place] [id number] Oct, [facility] [address] [place] [id number] [address] [place] [phone] Sep, [place] [address] [place] [id number] [place] [phone] Sep, Hypertension I10 [place] [address] [place] [id number] [place] [address] Sep, Chronic kidney disease N18.9 ; Right ankle pain M25.571 and GERD (gastroesophageal reflux disease) K21.9 [place] [address] [place] [id number] [address] [place] [id number] Jul, [place] [address] [place] [id number] [place] [address] Jul, Encounter for immunization Z 23 ; Venous insufficiency I87.2 and Diabetic polyneuropathy associated with type 2 diabetes mellitus E11.42 [facility] [address] [facility] [id number] [address] [place] [phone] Jul, [facility] [address] [place] [id number] [place] [address] Jul, Diabetes mellitus E11.9 [facility] [address] [place] [id number] [address] [place] [phone] May, [facility] [address] [place] [id number] [place] [address] Apr, [facility] [address] [id number] [address] [place] [address] Mar, Right ankle pain M25.571 [facility] [address] [id number] [address] [place] [phone] Mar, [facility] [address] [id number] [address] [place] [address] February, Paresthesias R20.2 [facility] [address] [id number] [address] [place] [phone] February, [facility] [address] [id number] [address] [place] [address] February, 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 [facility] [address] [id number] [address] [place] [address] February, Diabetes mellitus E11.9 [facility] [address] [id number] [address] [place] [phone] February, [facility] [address] [id number] [address] [place] [phone] February, Polyneuropathy in diabetes 3 57.2 and Paresthesias R20.2 [facility] [address] [id number] [address] [place] [id number] February, [facility] [address] [id number] [address] [place] [phone] February, [facility] [address] [id number] [address] [place] [phone] February, [facility] [address] [id number] [address] [place] [address] February, Diabetes mellitus E11.9 [facility] [address] [id number] [address] [place] [address] February, [facility] [address] [id number] [address] [place] [address] February, Hyperkalemia E87.5 [facility] [address] [facility] [id number] [address] [place] [address] Jan, Hypertension I10 [facility] [address] [facility] [id number] [address] [place] [address] Jan, Insomnia G47.00 [facility] [address] [facility] [id number] [address] [place] [phone] Jan, [facility] [address] [facility] [id number] [address] [place] [phone] Jan, [facility] [address] [facility] [id number] [address] [place] [phone] Jan, [facility] [address] [facility] [id number] [address] [place] [address] Dec, Right ankle pain M25.571 [facility] [address] [facility] [id number] [address] [place] [address] Dec, GERD (gastroesophageal reflu x disease) K21.9 [facility] [address] [facility] [id number] [address] [place] [address] Dec, Insomnia G47.00 [facility] [address] [facility] [id number] [address] [place] [address] Dec, Hypertension I10 and Hyperka lemia 276.7 [facility] [address] [facility] [id number] [address] [place] [address] Dec, Chronic kidney disease N18.9 [facility] [address] [facility] [id number] [address] [place] [address] Dec, [facility] [address] [facility] [id number] [address] [place] [phone] Dec, Hyperkalemia E87.5 [facility] [address] [facility] [id number] [address] [place] [address] Dec, Chronic kidney disease N18.9 and Right ankle pain M25.571 [facility] [address] [id number] [address] [place] [address] Nov, GERD (gastroesophageal reflu x disease) K21.9 [facility] [address] [id number] [address] [place] [address] Nov, Right ankle pain M25.571 [facility] [address] [id number] [address] [place] [address] Nov, Diabetes mellitus E11.9 [facility] [address] [id number] [address] [place] [address] Oct, [facility] [address] [id number] [address] [place] [phone] Oct, [facility] [address] [id number] [address] [place] [phone] Oct, [facility] [address] [id number] [address] [place] [phone] Oct, Hyperkalemia E87.5 [facility] [address] [id number] [address] [place] [address] Oct, [facility] [address] [id number] [address] [place] [address] Oct, Hyperkalemia E87.5 [facility] [address] [id number] [address] [place] [phone] Sep, [facility] [address] [id number] [address] [place] [phone] Sep, [facility] [address] [id number] [address] [place] [phone] Sep, [facility] [address] [id number] [address] [place] [phone] Sep, [facility] [address] [id number] [address] [place] [address] Sep, Right ankle pain M25.571 [facility] [address] [id number] [address] [place] [address] Aug, Chronic kidney disease N18.9 [facility] [address] [id number] [address] [place] [address] Aug, [facility] [address] [facility] [id number] [address] [place] [phone] Aug, Hyperkalemia E87.5 [facility] [address] [id number] [address] [place] [address] Aug, [facility] [address] [facility] [id number] [address] [place] [id number] Jul, [facility] [address] [facility] [id number] [address] [place] [id number] Jul, [facility] [address] [facility] [id number] [address] [place] [id number] Jul, [facility] [address] [facility] [id number] [address] [place] [address] Jul, Diabetes mellitus E11.9 ; En counter for immunization Z23 ; Hypertension I10 and Hyperkalemia E87.5 [facility] [address] [facility] [id number] [address] [place] [phone] Jul, [facility] [address] [facility] [id number] [address] [place] [id number] Jul, Hyperkalemia E87.5 [facility] [address] [facility] [id number] [address] [place] [phone] Jul, Hyperkalemia E87.5 [facility] [address] [facility] [id number] [address] [place] [phone] Jun, [facility] [address] [facility] [id number] [address] [place] [phone] Jun, [facility] [address] [facility] [id number] [address] [place] [phone] Jun, [facility] [address] [id number] [address] [place] [address], [place] [address] Jun, [facility] [address] [id number] [address] [place] [address], [place] [address] May, [facility] [address] [id number] [address] [place] [address], [place] [address] May, [facility] [address] [id number] [address] [place] [address], [place] [address] May, [facility] [address] [id number] [address] [place] [address], [place] [address] May, Hyperkalemia 276.7 [facility] [address] [id number] [address] [place] [address], [place] [address] May, [facility] [address] [id number] [address] [place] [address], [place] [address] Apr, Hyperkalemia 276.7 [facility] [address] [id number] [address] [place] [address], [place] [address] Apr, [facility] [address] [id number] [address] [place] [address], [place] [address] Apr, [facility] [address] [id number] [address] [place] [address], [place] [address] Apr, [facility] [address] [id number] [address] [place] [address], [place] [address] Apr, [facility] [address] [id number] [address] [place] [address], [place] [address] Apr, Hyperkalemia 276.7 [facility] [address] [id number] [address] [place] [address], [place] [address] Apr, [facility] [address] [id number] [address] [place] [address], [place] [address] Apr, [facility] [address] [id number] [address] [place] [phone] Mar, [facility] [address] [id number] [address] [place] [address] Mar, Hyperkalemia 276.7 [facility] [address] [id number] [address] [place] [phone] Mar, Hyperkalemia 276.7 [facility] [address] [id number] [address] [place] [id number] Mar, [facility] [address] [id number] [address] [place] [phone] Mar, [facility] [address] [id number] [address] [place] [phone] Mar, [facility] [address] [id number] [address] [place] [id number] Mar, [facility] [address] [id number] [address] [place] [id number] Mar, Anserine bursitis 726.61 [facility] [address] [id number] [address] [place] [id number] Mar, Asthma 493.90 and Hyperkalem ia 276.7 [facility] [address] [id number] [address] [place] [id number] Mar, [facility] [address] [id number] [address] [place] [id number] February, [facility] [address] [id number] [address] [place] [id number] February, [facility] [address] [id number] [address] [place] [id number] February, [facility] [address] [id number] [address] [place] [phone] February, [facility] [address] [id number] [address] [place] [id number] February, [facility] [address] [id number] [address] [place] [address], [place] [id number] February, [facility] [address] [id number] [address] [place] [address], [place] [id number] February, [facility] [address] [id number] [address] [place] [address], [place] [id number] February, [facility] [address] [id number] [address] [place] [address], [place] [id number] February, [facility] [address] [id number] [address] [place] [address], [place] [id number] Jan, [facility] [address] [id number] [address] [place] [address], [place] [id number] Jan, [facility] [address] [id number] [address] [place] [address], [place] [id number] Dec, [facility] [address] [id number] 19 [place] [address], [place] [id number] Dec, [facility] [address] [id number] [address] [place] [address], [place] [address] Dec, [facility] [address] [id number] [address] [place] [address], [place] [id number] Dec, [facility] [address] [id number] [address] [place] [address], [place] [id number] Dec, [facility] [address] [id number] [address] [place] [address], [place] [address] Dec, [facility] [address] [id number] [address] [place] [address], [place] [id number] Dec, [facility] [address] [id number] [address] [place] [address], [place] [address] Dec, [facility] [address] [id number] [address] [place] [address], [place] [address] Dec, [facility] [address] [id number] [address] [place] [address], [place] [address] Dec, [facility] [address] [id number] [address] [place] [address], [place] [address] Dec, [facility] [address] [id number] [address] [place] [address], [place] [address] Dec, [facility] [address] [id number] [address] [place] [address], [place] [address] Dec, [facility] [address] [id number] [address] [place] [address], [place] [address] Dec, [facility] [address] [id number] [address] [place] [address], [place] [address] Nov, [facility] [address] [id number] [address] [place] [address], [place] [id number] Nov, [facility] [address] [id number] [address] [place] [address], [place] [address] Nov, [facility] [address] [id number] [address] [place] [address], [place] [address] Nov, [facility] [address] [id number] [address] [place] [address], [place] [id number] Nov, [facility] [address] [id number] [address] [place] [address], [place] [address] Nov, [facility] [address] [id number] [address] [place] [address], [place] [address] Oct, [facility] [address] [id number] [address] [place] [address], [place] [address] Oct, [facility] [address] [id number] [address] [place] [address], [place] [address] Oct, [facility] [address] [id number] [address] [place] [address], [place] [address] Oct, [facility] [address] [id number] [address] [place] [address], [place] [address] Oct, [facility] [address] [id number] [address] [place] [address], [place] [address] Oct, [facility] [address] [id number] [address] [place] [address], [place] [address] Sep, [facility] [address] [id number] [address] [place] [address], [place] [address] Sep, [facility] [address] [id number] [address] [place] [address], [place] [address] Sep, [facility] [address] [id number] [address] [place] [address], [place] [address] Sep, [facility] [address] [id number] [address] [place] [address], [place] [address] Sep, [facility] [address] [id number] [address] [place] [address], [place] [address] Sep, [facility] [address] [id number] [address] [place] [address], [place] [address] Aug, [facility] [address] [id number] [address] [place] [address], [place] [address] Aug, [facility] [address] [id number] [address] [place] [address], [place] [address] Aug, [facility] [address] [id number] [address] [place] [address], [place] [address] Aug, [facility] [address] [id number] [address] [place] [address], [place] [address] Aug, [facility] [address] [id number] [address] [place] [address], [place] [address] Aug, [facility] [address] [id number] [address] [place] [address], [place] [address] Jul, [facility] [address] [id number] [address] [place] [address], [place] [address] Jul, [facility] [address] [id number] [address] [place] [address], [place] [id number] Jul, [facility] [address] [id number] [address] [place] [address], [place] [address] Jul, [facility] [address] [id number] [address] [place] [address], [place] [address] Jul, [facility] [address] [id number] [address] [place] [address], [place] [address] Jul, [facility] [address] [id number] [address] [place] [address], [place] [address] Jul, [facility] [address] [id number] [address] [place] [address], [place] [address] Jul, [facility] [address] [id number] [address] [place] [address], [place] [address] Jul, [facility] [address] [id number] [address] [place] [address], [place] [address] Jul, [facility] [address] [id number] [address] [place] [address], [place] [address] Jul, [facility] [address] [id number] [address] [place] [address], [place] [address] Jun, [facility] [address] [id number] [address] [place] [address], [place] [address] Jun, [facility] [address] [id number] [address] [place] [address], [place] [address] Jun, [facility] [address] [id number] [address] [place] [address], [place] [address] Jun, [facility] [address] [id number] [address] [place] [address], [place] [address] Apr, [facility] [address] [id number] [address] [place] [address], [place] [id number] Apr, [facility] [address] [id number] [address] [place] [address], [place] [address] Apr, [facility] [address] [id number] [address] [place] [id number] Apr, [facility] [address] [id number] [address] [place] [id number] Mar, [facility] [address] [id number] [address] [place] [id number] Mar, [facility] [address] [id number] [address] [place] [id number] Mar, [facility] [address] [id number] [address] [place] [id number] Mar, [facility] [address] [id number] [address] [place] [id number] Mar, [facility] [address] [id number] [address] [place] [id number] Sep, [facility] [address] [id number] [address] [place] [id number] Sep, [facility] [address] [id number] [address] [place] [id number] Aug, IMMUNIZATIONS No Known Immunizations SOCIAL HISTORY Never Assessed REASON FOR VISIT A1C PLAN OF CARE VITAL SIGNS MEDICATIONS Unknown [...] V C oct 2016 Hospitalization History Pneumonia [place] M[facility]Y- eda 06/2018 Hospitalization History fistula in left arm 07/2018
--- OUTSIDE RECORDS SUMMARY | 2020-04-01 19:34 | XMS REPORT ---
Author Author Josephine WILLIS Organization [facility] Address [address] [place] [address] Care Team Providers Care Wood Treating Inspector Name Role Phone OLYA WILLIS Unavailable PROBLEMS Type Condition ICD9-CM Code IIT50-HI Code Onset Dates Condition S tatus SNOMED Code Problem GERD (gastroesophageal reflux disease) K21.9 Active 216335587 Problem Type 2 diabetes mellitus with diabetic autonomic (poly)neuropathy E11.43 Active 064619859 Problem Gastroparesis K31.84 Active 921497 006 Problem Unsteady gait R26.81 Active 352668 08 Problem Pressure ulcer of unspecified heel, stage 4 L89.60 4 Active 307258737 Problem Chronic osteomyelitis of right foot with draining sinus M86.471 Active 993026736045573 Problem Chronic skin ulcer with fat layer exposed L98.492 Active 76200811 Problem 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 Active 300671409 Problem Type 2 diabetes mellitus with foot ulcer E11.621 Active 64722114649230 Problem Chronic kidney disease N18.9 Active 977236331 Problem Paresthesias R20.2 Active 9848014 4 Problem Hypertension I10 Active 3773198 3 Problem Diabetic polyneuropathy associated with type 2 d iabetes mellitus E11.42 Active 83229333 Problem Diabetes mellitus E11.9 Active 73 361322 Problem Venous insufficiency I87.2 Active 95837770 ALLERGIES No Information ENCOUNTERS Encounter Location Date Diagnosis [facility] [address] [facility] [id number] [address] [place] [id number] Sep, [facility] [address] [facility] [id number] [address] [place] [id number] Aug, [facility] [address] [facility] [id number] [address] [place] [address] Aug, 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 [facility] [address] [id number] [address] [place] [address] Aug, [facility] [address] [id number] [address] [place] [id number] Aug, [facility] [address] [facility] [id number] [address] [place] [address] Aug, Bronchitis J40 [facility] [address] [id number] [address] [place] [id number] Aug, [facility] [address] [id number] [address] [place] [address] Jul, [facility] [address] [facility] [id number] [address] [place] [address] Jul, Chronic skin ulcer with fat layer exposed L98.492 [facility] [address] [facility] [id number] [address] [place] [address] Jul, 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 [facility] [address] [id number] [address] [place] [id number] Jun, [facility] [address] [id number] [address] [place] [address] Jun, [facility] [address] [facility] [id number] [address] [place] [address] May, [facility] [address] [id number] [address] [place] [address] May, Chronic skin ulcer with fat layer exposed L98.492 [facility] [address] [facility] [id number] [address] [place] [address] Apr, [facility] [address] [id number] [address] [place] [address] Apr, Type 2 diabetes mellitus wit h foot ulcer E11.621 and Unsteady gait R26.81 [place] [facility] [address] [id number] [address] [place] [address] Mar, Decubitus ulcer of right mariana l, stage 3 L89.613 [facility] [address] [facility] [id number] [address] [place] [address] Mar, [place] [address] [facility] [id number] [address] [place] [id number] Mar, Pressure ulcer of unspecifie d heel, stage 4 L89.604 and Type 2 diabetes mellitus with foot ulcer E11.621 [place] [address] [facility] [id number] [address] [place] [address] Mar, Encounter for medication mon itoring Z51.81 [facility] [address] [facility] [id number] [address] [place] [address] Mar, Type 2 diabetes mellitus wit h foot ulcer E11.621 and Non-pressure chronic ulcer of right heel and midfoot with unspecified severity L97.419 [place] [address] [facility] [id number] [address] [place] [address] February, [place] [address] [facility] [id number] [address] [place] [address] Jan, Right ankle pain M25.571 [place] [address] [facility] [id number] [address] [place] [address] Dec, Right ankle pain M25.571 [place] [address] [facility] [id number] [address] [place] [address] Dec, [place] [address] [facility] [id number] [address] [place] [address] Dec, [place] [address] [facility] [id number] [address] [place] [address] Dec, Right ankle pain M25.571 [place] [address] [facility] [id number] [address] [place] [address] Dec, Chronic skin ulcer with fat layer exposed L98.492 ; Type 2 diabetes mellitus with diabetic autonomic (poly)neuropathy E11.43 and Hypertension I10 [facility] [address] [id number] [address] [place] [address] Nov, [facility] [address] [id number] [address] [place] [address] Nov, [facility] [address] [id number] [address] [place] [address] Nov, [facility] [address] [id number] [address] [place] [address] Nov, Right ankle pain M25.571 and Chronic osteomyelitis of right foot with draining sinus M86.471 [facility] [address] [facility] [id number] [address] [place] [address] Oct, Right ankle pain M25.571 [facility] [address] [facility] [id number] [address] [place] [address] Oct, [facility] [address] [id number] [address] [place] [address] Sep, Diabetes mellitus E11.9 [facility] [address] [facility] [id number] [address] [place] [address] Sep, Diabetic polyneuropathy asso ciated with type 2 diabetes mellitus E11.42 and Venous insufficiency I87.2 [facility] [address] [facility] [id number] [address] [place] [address] Sep, Right ankle pain M25.571 [facility] [address] [id number] [address] [place] [address] Aug, Right ankle pain M25.571 [facility] [address] [facility] [id number] [address] [place] [address] Aug, Chronic osteomyelitis of rig ht foot with draining sinus M86.471 [facility] [address] [facility] [id number] [address] [place] [address] Aug, [facility] [address] [id number] [address] [place] [address] Aug, [facility] [address] [id number] [address] [place] [address] Aug, Chronic osteomyelitis of rig ht foot with draining sinus M86.471 [facility] [address] [id number] [address] [place] [address] Jul, [facility] [address] [id number] [address] [place] [address] Jul, [facility] [address] [id number] [address] [place] [address] Jul, Chronic kidney disease N18.9 [facility] [address] [id number] [address] [place] [address] Jul, Right ankle pain M25.571 [facility] [address] [id number] [address] [place] [address] Jul, Non-healing ulcer of right f oot, unspecified ulcer stage L97.519 [facility] [address] [id number] [address] [place] [address] Jul, Chronic skin ulcer with fat layer exposed L98.492 [facility] [address] [id number] [address] [place] [address] Jul, Deformity of right ankle nitza nt M21.961 [facility] [address] [id number] [address] [place] [address] Jun, [facility] [address] [id number] [address] [place] [address] Jun, Diabetes mellitus E11.9 ; Sk in ulcer of right foot with fat layer exposed L97.512 and Encounter for immunization Z23 [facility] [address] [id number] [address] [place] [address] Jun, Right ankle pain M25.571 [facility] [address] [place] [id number] [address] [place] [address] May, Right ankle pain M25.571 [facility] [address] [place] [id number] [place] [address] Apr, Right ankle pain M25.571 [facility] [address] [place] [id number] [place] [address] Mar, Right ankle pain M25.571 [facility] [address] [address] Mar, [facility] [address] [place] [id number] [place] [address] February, Diabetes mellitus E11.9 and Diabetic polyneuropathy associated with type 2 diabetes mellitus E11.42 [facility] [address] [address] February, Hyperkalemia E87.5 [facility] [address] [address] February, Right ankle pain M25.571 [facility] [address] [address] Jan, Right ankle pain M25.571 [facility] [address] [place] [id number] [place] [address] Dec, Right ankle pain M25.571 [facility] [address] [address] Dec, Right ankle pain M25.571 [facility] [address] [place] [id number] [address] [place] [address] Nov, [facility] [address] [address] Nov, Diabetes mellitus E11.9 ; Hy pertension I10 ; Gastroparesis K31.84 and Type 2 diabetes mellitus with diabetic autonomic (poly)neuropathy E11.43 [facility] [address] [place] [id number] [place] [address] Nov, Right ankle pain M25.571 [facility] [address] [facility] [id number] [address] [place] [address] Oct, Right ankle pain M25.571 [facility] [address] [facility] [id number] [address] [place] [id number] Oct, [facility] [address] [facility] [id number] [address] [place] [address] Oct, [facility] [address] [facility] [id number] [address] [place] [address] Sep, [facility] [address] [facility] [id number] [place] [address] Sep, Hypertension I10 [facility] [address] [place] [id number] [place] [address] Sep, Chronic kidney disease N18.9 ; Right ankle pain M25.571 and GERD (gastroesophageal reflux disease) K21.9 [facility] [address] [facility] [id number] [address] [place] [address] Jul, [facility] [address] [place] [id number] [address] [place] [address] Jul, Encounter for immunization Z 23 ; Venous insufficiency I87.2 and Diabetic polyneuropathy associated with type 2 diabetes mellitus E11.42 [facility] [address] [facility] [id number] [address] [place] [address] Jul, [facility] [address] [facility] [id number] [address] [place] [address] Jul, Diabetes mellitus E11.9 [facility] [address] [facility] [id number] [address] [place] [address] May, [facility] [address] [place] [id number] [address] [place] [address] Apr, [facility] [address] [place] [id number] [address] [place] [address] Mar, Right ankle pain M25.571 [facility] [address] [id number] [address] [place] [address] Mar, [facility] [address] [id number] [address] [place] [address] February, Paresthesias R20.2 [facility] [address] [id number] [address] [place] [address] February, [facility] [address] [id number] [address] [place] [address] February, 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 [facility] [address] [id number] [address] [place] [address] February, Diabetes mellitus E11.9 [facility] [address] [id number] [address] [place] [address] February, [facility] [address] [facility] [id number] [address] [place] [address] February, Polyneuropathy in diabetes 3 57.2 and Paresthesias R20.2 [facility] [address] [id number] [address] [place] [id number] February, [facility] [address] [facility] [id number] [address] [place] [address] February, [facility] [address] [id number] [address] [place] [id number] February, [facility] [address] [id number] [address] [place] [address] February, Diabetes mellitus E11.9 [facility] [address] [id number] [address] [place] [address] February, [facility] [address] [facility] [id number] [address] [place] [address] February, Hyperkalemia E87.5 [facility] [address] [facility] [id number] [address] [place] [address] Jan, Hypertension I10 [facility] [address] [facility] [id number] [address] [place] [address] Jan, Insomnia G47.00 [facility] [address] [facility] [id number] [address] [place] [address] Jan, [facility] [address] [facility] [id number] [address] [place] [address] Jan, [facility] [address] [facility] [id number] [address] [place] [address] Jan, [facility] [address] [place] [id number] [place] [address] Dec, Right ankle pain M25.571 [facility] [address] [address] Dec, GERD (gastroesophageal reflu x disease) K21.9 [facility] [address] [facility] [id number] [address] [place] [address] Dec, Insomnia G47.00 [facility] [address] [address] Dec, Hypertension I10 and Hyperka lemia 276.7 [facility] [address] [address] Dec, Chronic kidney disease N18.9 [facility] [address] [facility] [id number] [address] [place] [address] Dec, [facility] [address] [facility] [id number] [address] [place] [address] Dec, Hyperkalemia E87.5 [facility] [address] [place] [id number] [address] [place] [address] Dec, Chronic kidney disease N18.9 and Right ankle pain M25.571 [facility] [address] [place] [id number] [address] [place] [address] Nov, GERD (gastroesophageal reflu x disease) K21.9 [facility] [address] [id number] [address] [place] [address] Nov, Right ankle pain M25.571 [facility] [address] [id number] [address] [place] [address] Nov, Diabetes mellitus E11.9 [facility] [address] [id number] [address] [place] [address] Oct, [facility] [address] [id number] [address] [place] [address] Oct, [facility] [address] [id number] [address] [place] [address] Oct, [facility] [address] [id number] [address] [place] [address] Oct, Hyperkalemia E87.5 [facility] [address] [id number] [address] [place] [address] Oct, [facility] [address] [id number] [address] [place] [address] Oct, Hyperkalemia E87.5 [facility] [address] [id number] [address] [place] [address] Sep, [facility] [address] [id number] [address] [place] [address] Sep, [facility] [address] [id number] [address] [place] [address] Sep, [facility] [address] [id number] [address] [place] [address] Sep, [facility] [address] [id number] [address] [place] [address] Sep, Right ankle pain M25.571 [facility] [address] [id number] [address] [place] [address] Aug, Chronic kidney disease N18.9 [facility] [address] [id number] [address] [place] [address] Aug, [facility] [address] [id number] [address] [place] [address] Aug, Hyperkalemia E87.5 [facility] [address] [id number] [address] [place] [address] Aug, [facility] [address] [id number] [address] [place] [id number] Jul, [facility] [address] [id number] [address] [place] [address] Jul, [facility] [address] [facility] [id number] [address] [place] [id number] Jul, [facility] [address] [facility] [id number] [address] [place] [address] Jul, Diabetes mellitus E11.9 ; En counter for immunization Z23 ; Hypertension I10 and Hyperkalemia E87.5 [facility] [address] [id number] [address] [place] [id number] Jul, [facility] [address] [id number] [address] [place] [address] Jul, Hyperkalemia E87.5 [facility] [address] [id number] [address] [place] [address] Jul, Hyperkalemia E87.5 [facility] [address] [id number] [address] [place] [address] Jun, [facility] [address] [id number] [address] [place] [address] Jun, [facility] [address] [facility] [id number] [address] [place] [id number] 15 Jun, 2015 [facility] [address] [id number] [address] [place] [address] Jun, [facility] [address] [id number] [address] [place] [address], [place] [id number] May, [facility] [address] [id number] [address] [place] [address], [place] [id number] May, [facility] [address] [id number] [address] [place] [address], [place] [id number] May, [facility] [address] [id number] [address] [place] [address], [place] [id number] May, Hyperkalemia 276.7 [facility] [address] [id number] [address] [place] [address], [place] [id number] May, [facility] [address] [id number] [address] [place] [address], [place] [id number] Apr, Hyperkalemia 276.7 [facility] [address] [id number] [address] [place] [address], [place] [id number] Apr, [facility] [address] [id number] [address] [place] [address], [place] [id number] Apr, [facility] [address] [id number] [address] [place] [address], [place] [id number] Apr, [facility] [address] [id number] [address] [place] [address], [place] [id number] Apr, [facility] [address] [id number] [address] [place] [address], [place] [id number] Apr, Hyperkalemia 276.7 [facility] [address] [id number] [address] [place] [address], [place] [id number] Apr, [facility] [address] [id number] [address] [place] [address], [place] [id number] Apr, [facility] [address] [id number] [address] [place] [address], [place] [id number] Mar, [facility] [address] [id number] [address] [place] [id number] Mar, Hyperkalemia 276.7 [facility] [address] [id number] [address] [place] [id number] Mar, Hyperkalemia 276.7 [facility] [address] [id number] [address] [place] [id number] Mar, [facility] [address] [id number] [address] [place] [id number] Mar, [facility] [address] [id number] [address] [place] [id number] Mar, [facility] [address] [id number] [address] [place] [id number] Mar, [facility] [address] [id number] [address] [place] [id number] Mar, Anserine bursitis 726.61 [facility] [address] [id number] [address] [place] [id number] Mar, Asthma 493.90 and Hyperkalem ia 276.7 [facility] [address] [id number] [address] [place] [id number] Mar, [facility] [address] [id number] [address] [place] [id number] February, [facility] [address] [id number] [address] [place] [id number] February, [facility] [address] [id number] [address] [place] [id number] February, [facility] [address] [id number] [address] [place] [id number] February, [facility] [address] [id number] [address] [place] [id number] February, [facility] [address] [id number] [address] [place] [phone] February, [facility] [address] [id number] [address] [place] [address], [place] [id number] February, [facility] [address] [id number] [address] [place] [address], [place] [id number] February, [facility] [address] [id number] [address] [place] [address], [place] [id number] February, [facility] [address] [id number] [address] [place] [address], [place] [id number] Jan, [facility] [address] [id number] [address] [place] [address], [place] [id number] Jan, [facility] [address] [id number] [address] [place] [address], [place] [id number] Dec, [facility] [address] [id number] [address] [place] [address], [place] [id number] Dec, [facility] [address] [id number] [address] [place] [address], [place] [id number] Dec, [facility] [address] [id number] [address] [place] [address], [place] [id number] Dec, [facility] [address] [id number] [address] [place] [address], [place] [id number] Dec, [facility] [address] [id number] [address] [place] [address], [place] [id number] Dec, [facility] [address] [id number] [address] [place] [address], [place] [id number] Dec, [facility] [address] [id number] [address] [place] [address], [place] [id number] Dec, [facility] [address] [id number] [address] [place] [address], [place] [id number] Dec, [facility] [address] [id number] [address] [place] [address], [place] [id number] Dec, [facility] [address] [id number] [address] [place] [address], [place] [id number] Dec, [facility] [address] [id number] [address] [place] [address], [place] [id number] Dec, [facility] [address] [id number] [address] [place] [address], [place] [id number] Dec, [facility] [address] [id number] [address] [place] [address], [place] [id number] Dec, [facility] [address] [id number] [address] [place] [address], [place] [id number] Nov, [facility] [address] [id number] [address] [place] [address], [place] [id number] Nov, [facility] [address] [id number] [address] [place] [address], [place] [id number] Nov, [facility] [address] [id number] [address] [place] [address], [place] [id number] Nov, [facility] [address] [id number] [address] [place] [address], [place] [id number] Nov, [facility] [address] [id number] [address] [place] [address], [place] [id number] Nov, [facility] [address] [id number] [address] [place] [address], [place] [id number] Oct, [facility] [address] [id number] [address] [place] [address], [place] [id number] Oct, [facility] [address] [id number] [address] [place] [address], [place] [id number] Oct, [facility] [address] [id number] [address] [place] [address], [place] [id number] Oct, [facility] [address] [id number] [address] [place] [address], [place] [id number] Oct, [facility] [address] [id number] [address] [place] [id number] Oct, [facility] [address] [id number] [address] [place] [address], [place] [id number] Sep, [facility] [address] [id number] [address] [place] [address], [place] [id number] Sep, [facility] [address] [id number] [address] [place] [address], [place] [id number] Sep, [facility] [address] [id number] [address] [place] [address], [place] [id number] Sep, [facility] [address] [id number] [address] [place] [address], [place] [id number] Sep, [facility] [address] [id number] [address] [place] [address], [place] [id number] Sep, [facility] [address] [id number] [address] [place] [address], [place] [id number] Aug, [facility] [address] [id number] [address] [place] [address], [place] [id number] Aug, [facility] [address] [id number] [address] [place] [address], [place] [id number] Aug, [facility] [address] [id number] [address] [place] [address], [place] [id number] Aug, [facility] [address] [id number] [address] [place] [address], [place] [id number] Aug, [facility] [address] [id number] [address] [place] [address], [place] [id number] Aug, [facility] [address] [id number] [address] [place] [address], [place] [id number] Jul, [facility] [address] [id number] [address] [place] [address], [place] [id number] Jul, [facility] [address] [id number] [address] [place] [address], [place] [id number] Jul, [facility] [address] [id number] [address] [place] [address], [place] [id number] Jul, [facility] [address] [id number] [address] [place] [address], [place] [id number] Jul, [facility] [address] [id number] [address] [place] [address], [place] [id number] Jul, [facility] [address] [id number] [address] [place] [address], [place] [id number] Jul, [facility] [address] [id number] [address] [place] [address], [place] [id number] Jul, [facility] [address] [id number] [address] [place] [address], [place] [id number] Jul, [facility] [address] [id number] [address] [place] [address], [place] [id number] Jul, [facility] [address] [id number] [address] [place] [address], [place] [id number] Jul, [facility] [address] [id number] [address] [place] [address], [place] [id number] Jun, [facility] [address] [id number] [address] [place] [address], [place] [id number] Jun, [facility] [address] [id number] [address] [place] [address], [place] [id number] Jun, [facility] [address] [id number] [address] [place] [address], [place] [id number] Jun, [facility] [address] [id number] [address] [place] [address], [place] [id number] Apr, [facility] [address] [id number] [address] [place] [address], [place] [id number] Apr, [facility] [address] [id number] [address] [place] [address], [place] [id number] Apr, [facility] [address] [id number] [address] [place] [address], [place] [id number] Apr, [facility] [address] [id number] [address] [place] [id number] 26 Mar, 2014 [facility] [address] [id number] [address] [place] [id number] 16 Mar, 2014 [facility] [address] [id number] [address] [place] [id number] 16 Mar, 2014 [facility] [address] [id number] [address] [place] [id number] Mar, [facility] [address] [id number] [address] [place] [id number] Mar, [facility] [address] [id number] [address] [place] [id number] Sep, [facility] [address] [id number] [address] [place] [id number] Sep, [facility] [address] [facility] [id number] [address] [place] [id number] Aug, IMMUNIZATIONS No Known Immunizations SOCIAL HISTORY Never Assessed REASON FOR VISIT medication refill PLAN OF CARE VITAL SIGNS MEDICATIONS Medication Instructions Dosage Frequency Start Date End Date Duration S tatus Lisinopril 5 MG Orally Once a day 1 tablet 24h 30 da ys Active RESULTS No Results PROCEDURES No Known [...] V C oct 2016 Hospitalization History Pneumonia [place] [facility] 06/2018 Hospitalization History fistula in left arm 07/2018
--- OUTSIDE RECORDS SUMMARY | 2020-04-01 19:35 | XMS REPORT ---
Author Author Josephine WILLIS Organization [facility] Address [address] [place] [address] Care Team Providers Care Tree Doctor Name Role Phone OLYA WILLIS Unavailable PROBLEMS Type Condition ICD9-CM Code NOY65-RI Code Onset Dates Condition S tatus SNOMED Code Problem GERD (gastroesophageal reflux disease) K21.9 Active 173592919 Problem Type 2 diabetes mellitus with diabetic autonomic (poly)neuropathy E11.43 Active 366122223 Problem Gastroparesis K31.84 Active 035792 006 Problem Unsteady gait R26.81 Active 507587 08 Problem Pressure ulcer of unspecified heel, stage 4 L89.60 4 Active 840006586 Problem Chronic osteomyelitis of right foot with draining sinus M86.471 Active [id number] Problem Chronic skin ulcer with fat layer exposed L98.492 Active 15559234 Problem 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 Active 807216214 Problem Type 2 diabetes mellitus with foot ulcer E11.621 Active 67528477174201 Problem Chronic kidney disease N18.9 Active 130963638 Problem Paresthesias R20.2 Active 0506500 4 Problem Hypertension I10 Active 6808994 3 Problem Diabetic polyneuropathy associated with type 2 d iabetes mellitus E11.42 Active 05604242 Problem Diabetes mellitus E11.9 Active 73 879278 Problem Venous insufficiency I87.2 Active 14626513 ALLERGIES No Information ENCOUNTERS Encounter Location Date Diagnosis [facility] [address] [facility] [id number] [address] [place] [id number] Aug, [facility] [address] [facility] [id number] [address] [place] [id number] Aug, [facility] [address] [facility] [id number] [address] [place] [phone] Aug, [facility] [address] [id number] [address] [place] [id number] Jul, [facility] [address] [id number] [address] [place] [id number] Jul, Chronic skin ulcer with fat layer exposed L98.492 [facility] [address] [id number] [address] [place] [id number] Jul, 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 [facility] [address] [id number] [address] [place] [id number] Jun, [facility] [address] [id number] [address] [place] [phone] Jun, [facility] [address] [id number] [address] [place] [phone] May, [facility] [address] [id number] [address] [place] [id number] May, Chronic skin ulcer with fat layer exposed L98.492 [facility] [address] [id number] [address] [place] [id number] Apr, [facility] [address] [facility] [id number] [address] [place] [id number] Apr, Type 2 diabetes mellitus wit h foot ulcer E11.621 and Unsteady gait R26.81 [facility] [address] [facility] [id number] [address] [place] [id number] Mar, Decubitus ulcer of right mariana l, stage 3 L89.613 [facility] [address] [id number] [address] [place] [id number] Mar, [facility] [address] [facility] [id number] [address] [place] [address] Mar, Pressure ulcer of unspecifie d heel, stage 4 L89.604 and Type 2 diabetes mellitus with foot ulcer E11.621 [facility] [address] [address] Mar, Encounter for medication mon itoring Z51.81 [facility] [address] [address] Mar, Type 2 diabetes mellitus wit h foot ulcer E11.621 and Non-pressure chronic ulcer of right heel and midfoot with unspecified severity L97.419 [place] [address] [address] February, [facility] [address] [address] Jan, Right ankle pain M25.571 [place] [address] [address] Dec, Right ankle pain M25.571 [place] [address] [address] Dec, [facility] [address] [address] Dec, [facility] [address] [address] Dec, Right ankle pain M25.571 [place] [address] [address] Dec, Chronic skin ulcer with fat layer exposed L98.492 ; Type 2 diabetes mellitus with diabetic autonomic (poly)neuropathy E11.43 and Hypertension I10 [place] [id number] [place] [id number] Nov, [facility] [address] [address] Nov, [facility] [address] [place] [id number] [address] [place] [id number] Nov, [facility] [address] [address] Nov, Right ankle pain M25.571 and Chronic osteomyelitis of right foot with draining sinus M86.471 [facility] [address] [id number] [address] [place] [id number] Oct, Right ankle pain M25.571 [facility] [address] [id number] [address] [place] [id number] Oct, [facility] [address] [id number] [address] [place] [phone] Sep, Diabetes mellitus E11.9 [facility] [address] [id number] [address] [place] [id number] Sep, Diabetic polyneuropathy asso ciated with type 2 diabetes mellitus E11.42 and Venous insufficiency I87.2 [facility] [address] [id number] [address] [place] [id number] Sep, Right ankle pain M25.571 [facility] [address] [id number] [address] [place] [id number] Aug, Right ankle pain M25.571 [facility] [address] [id number] [address] [place] [id number] Aug, Chronic osteomyelitis of rig ht foot with draining sinus M86.471 [facility] [address] [id number] [address] [place] [id number] Aug, [facility] [address] [id number] [address] [place] [id number] Aug, [facility] [address] [id number] [address] [place] [id number] Aug, Chronic osteomyelitis of rig ht foot with draining sinus M86.471 [facility] [address] [id number] [address] [place] [phone] Jul, [facility] [address] [id number] [address] [place] [phone] Jul, [facility] [address] [place] [id number] [address] [place] [id number] Jul, Chronic kidney disease N18.9 [facility] [address] [place] [id number] [address] [place] [id number] Jul, Right ankle pain M25.571 [facility] [address] [place] [id number] [address] [place] [id number] Jul, Non-healing ulcer of right f oot, unspecified ulcer stage L97.519 [facility] [address] [facility] [id number] [address] [place] [id number] Jul, Chronic skin ulcer with fat layer exposed L98.492 [place] [address] [address] Jul, Deformity of right ankle nitza nt M21.961 [place] [address] [address] Jun, [place] [address] [address] Jun, Diabetes mellitus E11.9 ; Sk in ulcer of right foot with fat layer exposed L97.512 and Encounter for immunization Z23 [facility] [address] [place] [id number] [address] [place] [id number] Jun, Right ankle pain M25.571 [place] [address] [place] [address] May, Right ankle pain M25.571 [place] [address] [place] [id number] [address] [place] [id number] Apr, Right ankle pain M25.571 [facility] [address] [place] [id number] [address] [place] [id number] Mar, Right ankle pain M25.571 [facility] [address] [place] [id number] [address] [place] [id number] Mar, [facility] [address] [place] [id number] [address] [place] [id number] February, Diabetes mellitus E11.9 and Diabetic polyneuropathy associated with type 2 diabetes mellitus E11.42 [facility] [address] [facility] [id number] [address] [place] [id number] February, Hyperkalemia E87.5 [facility] [address] [facility] [id number] [address] [place] [id number] February, Right ankle pain M25.571 [facility] [address] [facility] [id number] [address] [place] [id number] Jan, Right ankle pain M25.571 [facility] [address] [place] [id number] [address] [place] [id number] Dec, Right ankle pain M25.571 [facility] [address] [place] [id number] [address] [place] [id number] Dec, Right ankle pain M25.571 [facility] [address] [place] [id number] [address] [place] [phone] Nov, [facility] [address] [place] [id number] [place] [address] Nov, Diabetes mellitus E11.9 ; Hy pertension I10 ; Gastroparesis K31.84 and Type 2 diabetes mellitus with diabetic autonomic (poly)neuropathy E11.43 [facility] [address] [place] [id number] [address] [place] [id number] Nov, Right ankle pain M25.571 [facility] [address] [facility] [id number] [address] [place] [id number] Oct, Right ankle pain M25.571 [facility] [address] [facility] [id number] [address] [place] [id number] Oct, [facility] [address] [place] [id number] [address] [place] [phone] Oct, [facility] [address] [place] [id number] [address] [place] [phone] Sep, [facility] [address] [facility] [id number] [address] [place] [phone] Sep, Hypertension I10 [facility] [address] [facility] [id number] [address] [place] [id number] Sep, Chronic kidney disease N18.9 ; Right ankle pain M25.571 and GERD (gastroesophageal reflux disease) K21.9 [facility] [address] [facility] [id number] [address] [place] [phone] Jul, [facility] [address] [facility] [id number] [address] [place] [phone] Jul, Encounter for immunization Z 23 ; Venous insufficiency I87.2 and Diabetic polyneuropathy associated with type 2 diabetes mellitus E11.42 [facility] [address] [facility] [id number] [address] [place] [id number] Jul, [facility] [address] [facility] [id number] [address] [place] [phone] Jul, Diabetes mellitus E11.9 [facility] [address] [facility] [id number] [address] [place] [phone] May, [facility] [address] [facility] [id number] [address] [place] [id number] Apr, [facility] [address] [id number] [address] [place] [id number] Mar, Right ankle pain M25.571 [facility] [address] [facility] [id number] [address] [place] [phone] Mar, [facility] [address] [facility] [id number] [address] [place] [id number] February, Paresthesias R20.2 [facility] [address] [facility] [id number] [address] [place] [phone] February, [facility] [address] [facility] [id number] [address] [place] [phone] February, 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 [facility] [address] [id number] [address] [place] [phone] February, Diabetes mellitus E11.9 [facility] [address] [id number] [address] [place] [phone] February, [facility] [address] [id number] [address] [place] [id number] February, Polyneuropathy in diabetes 3 57.2 and Paresthesias R20.2 [facility] [address] [id number] [address] [place] [phone] February, [facility] [address] [id number] [address] [place] [phone] February, [facility] [address] [facility] [id number] [address] [place] [phone] February, [facility] [address] [id number] [address] [place] [id number] February, Diabetes mellitus E11.9 [facility] [address] [id number] [address] [place] [phone] February, [facility] [address] [id number] [address] [place] [id number] February, Hyperkalemia E87.5 [facility] [address] [facility] [id number] [address] [place] [phone] Jan, Hypertension I10 [facility] [address] [id number] [address] [place] [phone] Jan, Insomnia G47.00 [facility] [address] [facility] [id number] [address] [place] [phone] Jan, [facility] [address] [facility] [id number] [address] [place] [phone] Jan, [facility] [address] [facility] [id number] [address] [place] [id number] Jan, [facility] [address] [facility] [id number] [address] [place] [id number] Dec, Right ankle pain M25.571 [facility] [address] [facility] [id number] [address] [place] [id number] Dec, GERD (gastroesophageal reflu x disease) K21.9 [facility] [address] [facility] [id number] [address] [place] [id number] Dec, Insomnia G47.00 [facility] [address] [facility] [id number] [address] [place] [id number] Dec, Hypertension I10 and Hyperka lemia 276.7 [place] [address] [facility] [id number] [address] [place] [id number] Dec, Chronic kidney disease N18.9 [place] [id number] [place] [phone] Dec, [facility] [address] [facility] [id number] [address] [place] [phone] Dec, Hyperkalemia E87.5 [place] [address] [address] Dec, Chronic kidney disease N18.9 and Right ankle pain M25.571 [place] [address] [facility] [id number] [address] [place] [id number] Nov, GERD (gastroesophageal reflu x disease) K21.9 [facility] [address] [facility] [id number] [address] [place] [id number] Nov, Right ankle pain M25.571 [place] [address] [facility] [id number] [address] [place] [address] Nov, Diabetes mellitus E11.9 [facility] [address] [facility] [id number] [address] [place] [id number] Oct, [facility] [address] [place] [id number] [address] [place] [phone] Oct, [facility] [address] [id number] [address] [place] [phone] Oct, [facility] [address] [id number] [address] [place] [phone] Oct, Hyperkalemia E87.5 [facility] [address] [id number] [address] [place] [phone] Oct, [facility] [address] [id number] [address] [place] [phone] Oct, Hyperkalemia E87.5 [facility] [address] [id number] [address] [place] [phone] Sep, [facility] [address] [id number] [address] [place] [phone] Sep, [facility] [address] [id number] [address] [place] [phone] Sep, [facility] [address] [id number] [address] [place] [phone] Sep, [facility] [address] [facility] [id number] [address] [place] [id number] Sep, Right ankle pain M25.571 [facility] [address] [id number] [address] [place] [phone] Aug, Chronic kidney disease N18.9 [facility] [address] [id number] [address] [place] [phone] Aug, [facility] [address] [id number] [address] [place] [phone] Aug, Hyperkalemia E87.5 [facility] [address] [id number] [address] [place] [phone] Aug, [facility] [address] [facility] [id number] [address] [place] [phone] Jul, [facility] [address] [id number] [address] [place] [phone] Jul, [facility] [address] [id number] [address] [place] [phone] Jul, [facility] [address] [id number] [address] [place] [phone] Jul, Diabetes mellitus E11.9 ; En counter for immunization Z23 ; Hypertension I10 and Hyperkalemia E87.5 [facility] [address] [id number] [address] [place] [phone] Jul, [facility] [address] [id number] [address] [place] [id number] Jul, Hyperkalemia E87.5 [facility] [address] [id number] [address] [place] [id number] Jul, Hyperkalemia E87.5 [facility] [address] [id number] [address] [place] [phone] Jun, [facility] [address] [id number] [address] [place] [id number] Jun, [facility] [address] [id number] [address] [place] [phone] Jun, [facility] [address] [id number] [address] [place] [phone] Jun, [facility] [address] [id number] [address] [place] [phone] May, [facility] [address] [id number] [address] [place] [phone] May, [facility] [address] [id number] [address] [place] [phone] May, [facility] [address] [id number] [address] [place] [id number] May, Hyperkalemia 276.7 [facility] [address] [id number] [address] [place] [address], [place] [address] May, [facility] [address] [id number] [address] [place] [address], [place] [address] Apr, Hyperkalemia 276.7 [facility] [address] [id number] [address] [place] [address], [place] [address] Apr, [facility] [address] [id number] [address] [place] [address], [place] [address] Apr, [facility] [address] [id number] [address] [place] [address], [place] [address] Apr, [facility] [address] [id number] [address] [place] [address], [place] [address] Apr, [facility] [address] [id number] [address] [place] [address], [place] [address] Apr, Hyperkalemia 276.7 [facility] [address] [id number] [address] [place] [address], [place] [address] Apr, [facility] [address] [id number] [address] [place] [address], [place] [address] Apr, [facility] [address] [id number] [address] [place] [address], [place] [address] Mar, [facility] [address] [id number] [address] [place] [address], [place] [address] Mar, Hyperkalemia 276.7 [facility] [address] [id number] [address] [place] [address], [place] [address] Mar, Hyperkalemia 276.7 [facility] [address] [id number] [address] [place] [address], [place] [address] Mar, [facility] [address] [id number] [address] [place] [address], [place] [address] Mar, [facility] [address] [id number] [address] [place] [address], [place] [address] Mar, [facility] [address] [id number] [address] [place] [address], [place] [address] Mar, [facility] [address] [id number] [address] [place] [address], [place] [address] Mar, Anserine bursitis 726.61 [facility] [address] [id number] [address] [place] [address], [place] [address] Mar, Asthma 493.90 and Hyperkalem ia 276.7 [facility] [address] [id number] [address] [place] [address], [place] [address] Mar, [facility] [address] [id number] [address] [place] [address], [place] [address] February, [facility] [address] [id number] [address] [place] [address], [place] [address] February, [facility] [address] [id number] [address] [place] [address], [place] [address] February, [facility] [address] [id number] [address] [place] [address], [place] [address] February, [facility] [address] [id number] [address] [place] [id number] February, [facility] [address] [id number] [address] [place] [id number] February, [facility] [address] [id number] [address] [place] [id number] February, [facility] [address] [id number] [address] [place] [id number] February, [facility] [address] [id number] [address] [place] [id number] February, [facility] [address] [id number] [address] [place] [id number] 14 Jan, 2015 [facility] [address] [id number] [address] [place] [id number] Jan, [facility] [address] [id number] [facility] [place] [address] Dec, [facility] [address] [id number] [address] [place] [address], [place] [address] Dec, [facility] [address] [id number] [address] [place] [address], [place] [address] Dec, [facility] [address] [id number] [address] [place] [address], [place] [address] Dec, [facility] [address] [id number] [address] [place] [address], [place] [address] Dec, [facility] [address] [id number] [address] [place] [address], [place] [address] Dec, [facility] [address] [id number] [address] [place] [address], [place] [address] Dec, [facility] [address] [id number] [address] [place] [address], [place] [address] Dec, [facility] [address] [id number] [address] [place] [address], [place] [address] Dec, [facility] [address] [id number] [address] [place] [address], [place] [address] Dec, [facility] [address] [id number] [address] [place] [address], [place] [address] Dec, [facility] [address] [id number] [address] [place] [address], [place] [address] Dec, [facility] [address] [id number] [address] [place] [address], [place] [address] Dec, [facility] [address] [id number] [address] [place] [address], [place] [address] Dec, [facility] [address] [id number] [address] [place] [address], [place] [address] Nov, [facility] [address] [id number] [address] [place] [address], [place] [address] Nov, [facility] [address] [id number] [address] [place] [address], [place] [address] Nov, [facility] [address] [id number] [address] [place] [address], [place] [address] Nov, [facility] [address] [id number] [address] [place] [address], [place] [address] Nov, [facility] [address] [id number] [address] [place] [address], [place] [address] Nov, [facility] [address] [id number] [address] [place] [address], [place] [address] Oct, [facility] [address] [id number] [address] [place] [address], [place] [address] Oct, [facility] [address] [id number] [address] [place] [address], [place] [address] Oct, [facility] [address] [id number] [address] [place] [address], [place] [address] Oct, [facility] [address] [id number] [address] [place] [address], [place] [address] Oct, [facility] [address] [id number] [address] [place] [address], [place] [address] Oct, [facility] [address] [id number] [address] [place] [address], [place] [address] Sep, [facility] [address] [id number] [address] [place] [address], [place] [address] Sep, [facility] [address] [id number] [address] [place] [address], [place] [address] Sep, [facility] [address] [id number] [address] [place] [address], [place] [address] Sep, [facility] [address] [id number] [address] [place] [address], [place] [address] Sep, [facility] [address] [id number] [address] [place] [address], [place] [address] Sep, [facility] [address] [id number] [address] [place] [address], [place] [address] Aug, [facility] [address] [id number] [address] [place] [address], [place] [address] Aug, [facility] [address] [id number] [address] [place] [address], [place] [address] Aug, [facility] [address] [id number] [address] [place] [address], [place] [address] Aug, [facility] [address] [id number] [address] [place] [address], [place] [address] Aug, [facility] [address] [id number] [address] [place] [address], [place] [address] Aug, [facility] [address] [id number] [address] [place] [address], [place] [address] Jul, [facility] [address] [id number] [address] [place] [address], [place] [address] Jul, [facility] [address] [id number] [address] [place] [address], [place] [address] Jul, [facility] [address] [id number] [address] [place] [address] Jul, [facility] [address] [id number] [address] [place] [address] Jul, [facility] [address] [id number] [address] [place] [address], [place] [address] Jul, [facility] [address] [id number] [address] [place] [address], [place] [address] Jul, [facility] [address] [id number] [address] [place] [address], [place] [address] Jul, [facility] [address] [id number] [address] [place] [address], [place] [address] Jul, [facility] [address] [id number] [address] [place] [address], [place] [address] Jul, [facility] [address] [id number] [address] [place] [address], [place] [address] Jul, [facility] [address] [id number] [address] [place] [address], [place] [address] Jun, [facility] [address] [id number] [address] [place] [address], [place] [address] Jun, [facility] [address] [id number] [address] [place] [address], [place] [address] Jun, [facility] [address] [id number] [address] [place] [address], [place] [address] Jun, [facility] [address] [id number] [address] [place] [address], [place] [address] Apr, [facility] [address] [id number] [address] [place] [address], [place] [address] Apr, [facility] [address] [id number] [address] [place] [address], [place] [address] Apr, [facility] [address] [id number] [address] [place] [address], [place] [address] Apr, [facility] [address] [id number] [address] [place] [address], [place] [address] Mar, [facility] [address] [id number] [address] [place] [address], [place] [address] Mar, [facility] [address] [id number] [address] [place] [address], [place] [address] Mar, [facility] [address] [id number] [address] [place] [address], [place] [address] Mar, [facility] [address] [id number] [address] [place] [address], [place] [address] Mar, [facility] [address] [facility] [id number] [address] [place] [id number] Sep, [facility] [address] [facility] [id number] [address] [place] [id number] Sep, [facility] [address] [facility] [id number] [address] [place] [id number] Aug, IMMUNIZATIONS No Known Immunizations SOCIAL HISTORY [...]
--- OUTSIDE RECORDS SUMMARY | 2020-04-01 19:35 | XMS REPORT ---
Author Author Josephine MENA Organization [facility] Address [address] [place] [address] Care Team Providers Care Case Folder Name Role Phone RAHEL MENA Unavailable PROBLEMS Type Condition ICD9-CM Code [id number] Code Onset Dates Condition S tatus SNOMED Code Problem GERD (gastroesophageal reflux disease) K21.9 Active 795991692 Problem Type 2 diabetes mellitus with diabetic autonomic (poly)neuropathy E11.43 Active 962427892 Problem Gastroparesis K31.84 Active 577191 006 Problem Unsteady gait R26.81 Active 439235 08 Problem Pressure ulcer of unspecified heel, stage 4 L89.60 4 Active 573714321 Problem Chronic osteomyelitis of right foot with draining sinus M86.471 Active 442659435490854 Problem Chronic skin ulcer with fat layer exposed L98.492 Active 95897111 Problem 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 Active 441315844 Problem Type 2 diabetes mellitus with foot ulcer E11.621 Active 93883102288377 Problem Chronic kidney disease N18.9 Active 599190850 Problem Paresthesias R20.2 Active 9017422 4 Problem Hypertension I10 Active 7584220 3 Problem Diabetic polyneuropathy associated with type 2 d iabetes mellitus E11.42 Active 22025060 Problem Diabetes mellitus E11.9 Active 73 747104 Problem Venous insufficiency I87.2 Active 87618310 ALLERGIES No Information ENCOUNTERS Encounter Location Date Diagnosis [facility] [address] [facility] [id number] [place] [phone] Aug, [facility] [address] [facility] [id number] [place] [phone] Aug, [facility] [address] [facility] [id number] [place] [phone] Aug, [facility] [address] [facility] [id number] [place] [phone] Aug, Bronchitis J40 [facility] [address] [facility] [id number] [place] [phone] Aug, [facility] [address] [facility] [id number] [place] [phone] Jul, [facility] [address] [facility] [id number] [place] [phone] Jul, Chronic skin ulcer with fat layer exposed L98.492 [facility] [address] [facility] [id number] [place] [phone] Jul, 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 [facility] [address] [place] [id number] [address] [place] [phone] Jun, [facility] [address] [facility] [id number] [place] [phone] Jun, [facility] [address] [facility] [id number] [place] [phone] May, [facility] [address] [place] [id number] [address] [place] [phone] May, Chronic skin ulcer with fat layer exposed L98.492 [facility] [address] [place] [id number] [address] [place] [phone] Apr, [facility] [address] [facility] [id number] [place] [id number] Apr, Type 2 diabetes mellitus wit h foot ulcer E11.621 and Unsteady gait R26.81 [facility] [address] [facility] [id number] [place] [phone] Mar, Decubitus ulcer of right mariana l, stage 3 L89.613 [facility] [address] [place] [id number] [address] [place] [phone] Mar, [facility] [id number] [place] [phone] Mar, Pressure ulcer of unspecifie d heel, stage 4 L89.604 and Type 2 diabetes mellitus with foot ulcer E11.621 [place] [address] [facility] [id number] [place] [phone] Mar, Encounter for medication mon itoring Z51.81 [place] [address] [phone] Mar, Type 2 diabetes mellitus wit h foot ulcer E11.621 and Non-pressure chronic ulcer of right heel and midfoot with unspecified severity L97.419 [place] [address] [address] February, [place] [address] [address] Jan, Right ankle pain M25.571 [place] [id number] [place] [address] Dec, Right ankle pain M25.571 [place] [address] [address] Dec, [place] [address] [place] [id number] [address] [place] [phone] Dec, [place] [address] [place] [id number] [address] [place] [address] Dec, Right ankle pain M25.571 [place] [id number] [place] [address] Dec, Chronic skin ulcer with fat layer exposed L98.492 ; Type 2 diabetes mellitus with diabetic autonomic (poly)neuropathy E11.43 and Hypertension I10 [place] [address] [place] [id number] [address] [place] [phone] Nov, [place] [address] [address] Nov, [facility] [address] [id number] [address] [place] [phone] Nov, [facility] [address] [id number] [address] [place] [phone] Nov, Right ankle pain M25.571 and Chronic osteomyelitis of right foot with draining sinus M86.471 [facility] [address] [id number] [address] [place] [address] Oct, Right ankle pain M25.571 [facility] [address] [id number] [address] [place] [phone] Oct, [facility] [address] [id number] [address] [place] [phone] Sep, Diabetes mellitus E11.9 [facility] [address] [id number] [address] [place] [phone] Sep, Diabetic polyneuropathy asso ciated with type 2 diabetes mellitus E11.42 and Venous insufficiency I87.2 [facility] [address] [id number] [address] [place] [address] Sep, Right ankle pain M25.571 [facility] [address] [id number] [address] [place] [phone] Aug, Right ankle pain M25.571 [facility] [address] [id number] [address] [place] [phone] Aug, Chronic osteomyelitis of rig ht foot with draining sinus M86.471 [facility] [address] [id number] [address] [place] [phone] Aug, [facility] [address] [id number] [address] [place] [phone] Aug, [facility] [address] [id number] [address] [place] [phone] Aug, Chronic osteomyelitis of rig ht foot with draining sinus M86.471 [facility] [address] [facility] [id number] [place] [phone] Jul, [facility] [address] [facility] [id number] [place] [phone] Jul, [facility] [address] [facility] [id number] [place] [phone] Jul, Chronic kidney disease N18.9 [facility] [address] [facility] [id number] [place] [phone] Jul, Right ankle pain M25.571 [facility] [address] [facility] [id number] [place] [phone] Jul, Non-healing ulcer of right f oot, unspecified ulcer stage L97.519 [place] [address] [place] [id number] [address] [place] [phone] Jul, Chronic skin ulcer with fat layer exposed L98.492 [place] [address] [place] [id number] [address] [place] [address] Jul, Deformity of right ankle nitza nt M21.961 [place] [address] [place] [id number] [address] [place] [phone] Jun, [place] [address] [place] [id number] [address] [place] [phone] Jun, Diabetes mellitus E11.9 ; Sk in ulcer of right foot with fat layer exposed L97.512 and Encounter for immunization Z23 [facility] [address] [facility] [id number] [place] [address] Jun, Right ankle pain M25.571 [place] [address] [place] [id number] [address] [place] [phone] May, Right ankle pain M25.571 [place] [address] [facility] [id number] [place] [address] Apr, Right ankle pain M25.571 [place] [address] [place] [id number] [address] [place] [phone] Mar, Right ankle pain M25.571 [facility] [address] [id number] [address] [place] [phone] Mar, [facility] [address] [facility] [id number] [place] [phone] February, Diabetes mellitus E11.9 and Diabetic polyneuropathy associated with type 2 diabetes mellitus E11.42 [facility] [address] [facility] [id number] [place] [phone] February, Hyperkalemia E87.5 [facility] [address] [facility] [id number] [place] [phone] February, Right ankle pain M25.571 [facility] [address] [facility] [id number] [place] [id number] Jan, Right ankle pain M25.571 [facility] [address] [facility] [id number] [place] [phone] Dec, Right ankle pain M25.571 [facility] [address] [facility] [id number] [place] [phone] Dec, Right ankle pain M25.571 [facility] [address] [facility] [id number] [place] [phone] Nov, [facility] [address] [place] [id number] [address] [place] [phone] Nov, Diabetes mellitus E11.9 ; Hy pertension I10 ; Gastroparesis K31.84 and Type 2 diabetes mellitus with diabetic autonomic (poly)neuropathy E11.43 [facility] [address] [facility] [id number] [place] [phone] Nov, Right ankle pain M25.571 [facility] [address] [facility] [id number] [place] [phone] Oct, Right ankle pain M25.571 [facility] [address] [id number] [address] [place] [phone] Oct, [facility] [address] [facility] [id number] [place] [phone] Oct, [facility] [address] [facility] [id number] [place] [phone] Sep, [facility] [address] [facility] [id number] [place] [phone] Sep, Hypertension I10 [facility] [address] [facility] [id number] [place] [id number] Sep, Chronic kidney disease N18.9 ; Right ankle pain M25.571 and GERD (gastroesophageal reflux disease) K21.9 [facility] [address] [place] [id number] [address] [place] [phone] Jul, [facility] [address] [place] [id number] [place] [phone] Jul, Encounter for immunization Z 23 ; Venous insufficiency I87.2 and Diabetic polyneuropathy associated with type 2 diabetes mellitus E11.42 [facility] [address] [facility] [id number] [place] [phone] Jul, [facility] [address] [facility] [id number] [place] [phone] Jul, Diabetes mellitus E11.9 [facility] [address] [facility] [id number] [place] [phone] May, [facility] [address] [facility] [id number] [place] [phone] Apr, [facility] [address] [facility] [id number] [place] [phone] Mar, Right ankle pain M25.571 [facility] [address] [facility] [id number] [place] [phone] Mar, [facility] [address] [facility] [id number] [place] [phone] February, Paresthesias R20.2 [facility] [address] [facility] [id number] [place] [phone] February, [facility] [address] [facility] [id number] [place] [phone] February, 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 [facility] [address] [facility] [id number] [place] [phone] February, Diabetes mellitus E11.9 [facility] [address] [facility] [id number] [place] [phone] February, [facility] [address] [facility] [id number] [place] [phone] February, Polyneuropathy in diabetes 3 57.2 and Paresthesias R20.2 [facility] [address] [facility] [id number] [place] [phone] February, [facility] [address] [facility] [id number] [place] [phone] February, [facility] [address] [facility] [id number] [place] [phone] February, [facility] [address] [facility] [id number] [place] [phone] February, Diabetes mellitus E11.9 [facility] [address] [facility] [id number] [place] [phone] February, [facility] [address] [facility] [id number] [place] [phone] February, Hyperkalemia E87.5 [facility] [address] [facility] [id number] [place] [phone] Jan, Hypertension I10 [facility] [address] [facility] [id number] [place] [id number] Jan, Insomnia G47.00 [facility] [address] [facility] [id number] [place] [phone] Jan, [facility] [address] [facility] [id number] [place] [phone] Jan, [facility] [address] [place] [id number] [address] [place] [phone] Jan, [facility] [address] [address] Dec, Right ankle pain M25.571 [facility] [address] [place] [id number] [place] [address] Dec, GERD (gastroesophageal reflu x disease) K21.9 [place] [address] [address] Dec, Insomnia G47.00 [place] [address] [address] Dec, Hypertension I10 and Hyperka lemia 276.7 [facility] [address] [id number] Dec, Chronic kidney disease N18.9 [facility] [address] [id number] Dec, [facility] [address] [address] Dec, Hyperkalemia E87.5 [facility] [address] [address] Dec, Chronic kidney disease N18.9 and Right ankle pain M25.571 [facility] [address] [facility] [id number] [place] [id number] 11 Nov, 2015 GERD (gastroesophageal reflu x disease) K21.9 [facility] [address] [place] [id number] [address] [place] [id number] 03 Nov, 2015 Right ankle pain M25.571 [place] [address] [place] [id number] [address] [place] [phone] Nov, Diabetes mellitus E11.9 [facility] [address] [id number] [address] [place] [phone] Oct, [facility] [address] [id number] [address] [place] [phone] Oct, [facility] [address] [id number] [address] [place] [phone] Oct, [facility] [address] [id number] [address] [place] [phone] Oct, Hyperkalemia E87.5 [facility] [address] [id number] [address] [place] [phone] Oct, [facility] [address] [id number] [address] [place] [phone] Oct, Hyperkalemia E87.5 [facility] [address] [id number] [address] [place] [phone] Sep, [facility] [address] [id number] [address] [place] [phone] Sep, [facility] [address] [id number] [address] [place] [phone] Sep, [facility] [address] [id number] [address] [place] [phone] Sep, [facility] [address] [id number] [address] [place] [id number] Sep, Right ankle pain M25.571 [facility] [address] [id number] [address] [place] [phone] Aug, Chronic kidney disease N18.9 [facility] [address] [id number] [address] [place] [phone] Aug, [facility] [address] [id number] [address] [place] [phone] Aug, Hyperkalemia E87.5 [facility] [address] [id number] [address] [place] [phone] Aug, [facility] [address] [id number] [address] [place] [phone] Jul, [facility] [address] [id number] [address] [place] [phone] Jul, [facility] [address] [id number] [address] [place] [phone] Jul, [facility] [address] [id number] [address] [place] [phone] Jul, Diabetes mellitus E11.9 ; En counter for immunization Z23 ; Hypertension I10 and Hyperkalemia E87.5 [facility] [address] [id number] [address] [place] [phone] Jul, [facility] [address] [id number] [address] [place] [phone] Jul, Hyperkalemia E87.5 [facility] [address] [id number] [address] [place] [phone] Jul, Hyperkalemia E87.5 [facility] [address] [id number] [address] [place] [phone] Jun, [facility] [address] [id number] [address] [place] [phone] Jun, [facility] [address] [id number] [address] [place] [id number] 15 Jun, 2015 [facility] [address] [id number] [address] [place] [phone] Jun, [facility] [address] [id number] [address] [place] [phone] May, [facility] [address] [id number] [address] [place] [phone] May, [facility] [address] [id number] [address] [place] [address], [place] [address] May, [facility] [address] [id number] [address] [place] [address], [place] [address] May, Hyperkalemia 276.7 [facility] [address] [id number] [address] [place] [address], [place] [address] May, [facility] [address] [id number] [address] [place] [address], [place] [address] Apr, Hyperkalemia 276.7 [facility] [address] [id number] [address] [place] [address], [place] [address] Apr, [facility] [address] [id number] [address] [place] [address], [place] [address] Apr, [facility] [address] [id number] [address] [place] [address], [place] [address] Apr, [facility] [address] [id number] [address] [place] [address], [place] [address] Apr, [facility] [address] [id number] [address] [place] [address], [place] [address] Apr, Hyperkalemia 276.7 [facility] [address] [id number] [address] [place] [address], [place] [address] Apr, [facility] [address] [id number] [address] [place] [address], [place] [address] Apr, [facility] [address] [id number] [address] [place] [address], [place] [address] Mar, [facility] [address] [id number] [address] [place] [address], [place] [address] Mar, Hyperkalemia 276.7 [facility] [address] [id number] [address] [place] [address], [place] [address] Mar, Hyperkalemia 276.7 [facility] [address] [id number] [address] [place] [address], [place] [address] Mar, [facility] [address] [id number] [address] [place] [phone] Mar, [facility] [address] [id number] [address] [place] [phone] Mar, [facility] [address] [id number] [address] [place] [phone] Mar, [facility] [address] [id number] [address] [place] [id number] Mar, Anserine bursitis 726.61 [facility] [address] [id number] [address] [place] [id number] Mar, Asthma 493.90 and Hyperkalem ia 276.7 [facility] [address] [id number] [address] [place] [id number] Mar, [facility] [address] [id number] [address] [place] [id number] February, [facility] [address] [id number] [address] [place] [phone] February, [facility] [address] [id number] [address] [place] [id number] February, [facility] [address] [id number] [address] [place] [phone] February, [facility] [address] [id number] 55 [place] [id number] February, [facility] [address] [id number] [address] [place] [id number] February, [facility] [address] [id number] [address] [place] [id number] February, [facility] [address] [id number] [address] [place] [phone] February, [facility] [address] [id number] [address] [place] [id number] February, [facility] [address] [id number] [facility] [place] [address] Jan, [facility] [address] [id number] [address] [place] [address], [place] [address] Jan, [facility] [address] [id number] [address] [place] [address], [place] [address] Dec, [facility] [address] [id number] [address] [place] [address], [place] [address] Dec, [facility] [address] [id number] [address] [place] [address], [place] [address] Dec, [facility] [address] [id number] [address] [place] [address], [place] [address] Dec, [facility] [address] [id number] [address] [place] [address], [place] [address] Dec, [facility] [address] [id number] [address] [place] [address], [place] [address] Dec, [facility] [address] [id number] [address] [place] [address], [place] [address] Dec, [facility] [address] [id number] [address] [place] [address], [place] [address] Dec, [facility] [address] [id number] [address] [place] [address], [place] [address] Dec, [facility] [address] [id number] [address] [place] [address], [place] [address] Dec, [facility] [address] [id number] [address] [place] [address], [place] [address] Dec, [facility] [address] [id number] [address] [place] [address], [place] [address] Dec, [facility] [address] [id number] [address] [place] [address], [place] [address] Dec, [facility] [address] [id number] [address] [place] [address], [place] [address] Dec, [facility] [address] [id number] [address] [place] [address], [place] [address] Nov, [facility] [address] [id number] [address] [place] [address], [place] [address] Nov, [facility] [address] [id number] [address] [place] [address], [place] [address] Nov, [facility] [address] [id number] [address] [place] [address], [place] [address] Nov, [facility] [address] [id number] [address] [place] [address], [place] [address] Nov, [facility] [address] [id number] [address] [place] [address], [place] [address] Nov, [facility] [address] [id number] [address] [place] [address], [place] [address] Oct, [facility] [address] [id number] [address] [place] [address], [place] [address] Oct, [facility] [address] [id number] [address] [place] [address], [place] [address] Oct, [facility] [address] [id number] [address] [place] [address], [place] [address] Oct, [facility] [address] [id number] [address] [place] [address], [place] [address] Oct, [facility] [address] [id number] [address] [place] [address], [place] [address] Oct, [facility] [address] [id number] [address] [place] [address], [place] [address] Sep, [facility] [address] [id number] [address] [place] [address], [place] [address] Sep, [facility] [address] [id number] [address] [place] [address], [place] [address] Sep, [facility] [address] [id number] [address] [place] [address], [place] [address] Sep, [facility] [address] [id number] [address] [place] [address], [place] [address] Sep, [facility] [address] [id number] [address] [place] [address], [place] [address] Sep, [facility] [address] [id number] [address] [place] [address], [place] [address] Aug, [facility] [address] [id number] [address] [place] [address], [place] [address] Aug, [facility] [address] [id number] [address] [place] [address], [place] [address] Aug, [facility] [address] [id number] [address] [place] [address], [place] [address] Aug, [facility] [address] [id number] [address] [place] [address], [place] [address] Aug, [facility] [address] [id number] [address] [place] [address], [place] [address] Aug, [facility] [address] [id number] [address] [place] [address], [place] [address] Jul, [facility] [address] [id number] [address] [place] [id number] 30 Jul, 2014 [facility] [address] [id number] [address] [place] [address] Jul, [facility] [address] [id number] [address] [place] [address], [place] [address] Jul, [facility] [address] [id number] [address] [place] [address] Jul, [facility] [address] [id number] [address] [place] [id number] Jul, [facility] [address] [id number] [address] [place] [address], [place] [address] Jul, [facility] [address] [id number] [address] [place] [address], [place] [address] Jul, [facility] [address] [id number] [address] [place] [address], [place] [address] Jul, [facility] [address] [id number] [address] [place] [address], [place] [address] Jul, [facility] [address] [id number] [address] [place] [address], [place] [address] Jul, [facility] [address] [id number] [address] [place] [address], [place] [address] Jun, [facility] [address] [id number] [address] [place] [address], [place] [address] Jun, [facility] [address] [id number] [address] [place] [address], [place] [address] Jun, [facility] [address] [id number] [address] [place] [address], [place] [address] Jun, [facility] [address] [id number] [address] [place] [address], [place] [address] Apr, [facility] [address] [id number] [address] [place] [address], [place] [address] Apr, [facility] [address] [id number] [address] [place] [address], [place] [address] Apr, [facility] [address] [id number] [address] [place] [address], [place] [address] Apr, [facility] [address] [id number] [address] [place] [address], [place] [address] Mar, [facility] [address] [id number] [address] [place] [address], [place] [address] Mar, [facility] [address] [id number] [address] [place] [address], [place] [address] Mar, [facility] [address] [facility] [id number] [place] [phone] Mar, [facility] [address] [facility] [id number] [place] [id number] Mar, [facility] [address] [facility] [id number] [place] [id number] Sep, [facility] [address] [facility] [id number] [place] [id number] Sep, [facility] [address] [facility] [id number] [place] [id number] Aug, IMMUNIZATIONS No Known Immunizations SOCIAL HISTORY Never Assessed REASON FOR VISIT Controlled Med Refill PLAN OF CARE VITAL SIGNS MEDICATIONS Medication Instructions Dosage Frequency Start Date End Date Duration S tatus Oxycodone HCl 5 mg Orally every 6 hrs 1 tablet as needed 6h Aug, 28 days Active RESULTS No Results PROCEDURES [...] V C oct 2016 Hospitalization History Pneumonia [facility] [facility] 06/2018 Hospitalization History fistula in left arm 07/2018
--- OUTSIDE RECORDS SUMMARY | 2020-04-01 19:35 | XMS REPORT ---
Author Author Josephine WILLIS Organization [facility] Address [address] [place] [address] Care Team Providers Care Stove Carriage Operator Name Role Phone OLYA WILLIS Unavailable PROBLEMS Type Condition ICD9-CM Code [id number] Code Onset Dates Condition S tatus SNOMED Code Problem GERD (gastroesophageal reflux disease) K21.9 Active 777639163 Problem Type 2 diabetes mellitus with diabetic autonomic (poly)neuropathy E11.43 Active 547052220 Problem Gastroparesis K31.84 Active 678745 006 Problem Unsteady gait R26.81 Active 837710 08 Problem Pressure ulcer of unspecified heel, stage 4 L89.60 4 Active 388292553 Problem Chronic osteomyelitis of right foot with draining sinus M86.471 Active 513662094937810 Problem Chronic skin ulcer with fat layer exposed L98.492 Active 31623827 Problem 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 Active 364823563 Problem Type 2 diabetes mellitus with foot ulcer E11.621 Active 16743413557590 Problem Chronic kidney disease N18.9 Active 471375990 Problem Paresthesias R20.2 Active 3671715 4 Problem Hypertension I10 Active 2516193 3 Problem Diabetic polyneuropathy associated with type 2 d iabetes mellitus E11.42 Active 02584630 Problem Diabetes mellitus E11.9 Active 73 016156 Problem Venous insufficiency I87.2 Active 76708022 ALLERGIES Substance Reaction Event Type Date Status Sulfacetamide Sodium Unknown Drug Allergy Aug, Active Plavix caused bleeding Drug Allergy Aug, Active Neurontin Makes her disoriented Drug Allergy Aug, Active Lyrica dizziness Drug Allergy Aug, Active ENCOUNTERS Encounter Location Date Diagnosis [facility] [address] [facility] [id number] [address] [place] [phone] Aug, [facility] [address] [facility] [id number] [address] [place] [phone] Aug, Bronchitis J40 [facility] [address] [facility] [id number] [address] [place] [phone] Aug, [facility] [address] [facility] [id number] [address] [place] [phone] Jul, [facility] [address] [facility] [id number] [address] [place] [address] Jul, Chronic skin ulcer with fat layer exposed L98.492 [facility] [address] [id number] [address] [place] [address] Jul, 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 [facility] [address] [facility] [id number] [address] [place] [phone] Jun, [facility] [address] [facility] [id number] [address] [place] [phone] Jun, [facility] [address] [facility] [id number] [address] [place] [id number] May, [facility] [address] [facility] [id number] [address] [place] [address] May, Chronic skin ulcer with fat layer exposed L98.492 [facility] [address] [place] [id number] [address] [place] [id number] Apr, [facility] [address] [facility] [id number] [address] [place] [phone] Apr, Type 2 diabetes mellitus wit h foot ulcer E11.621 and Unsteady gait R26.81 [facility] [address] [facility] [id number] [address] [place] [phone] Mar, Decubitus ulcer of right mariana l, stage 3 L89.613 [facility] [address] [facility] [id number] [address] [place] [id number] Mar, [facility] [address] [facility] [id number] [address] [place] [id number] Mar, Pressure ulcer of unspecifie d heel, stage 4 L89.604 and Type 2 diabetes mellitus with foot ulcer E11.621 [place] [address] [facility] [id number] [address] [place] [id number] Mar, Encounter for medication mon itoring Z51.81 [place] [address] [facility] [id number] [address] [place] [address] Mar, Type 2 diabetes mellitus wit h foot ulcer E11.621 and Non-pressure chronic ulcer of right heel and midfoot with unspecified severity L97.419 [place] [address] [facility] [id number] [address] [place] [address] February, [place] [address] [place] [id number] [address] [place] [address] Jan, Right ankle pain M25.571 [place] [address] [place] [id number] [address] [place] [id number] Dec, Right ankle pain M25.571 [place] [address] [place] [id number] [address] [place] [phone] Dec, [place] [address] [place] [id number] [address] [place] [phone] Dec, [place] [address] [place] [id number] [address] [place] [address] Dec, Right ankle pain M25.571 [place] [address] [place] [id number] [address] [place] [address] Dec, Chronic skin ulcer with fat layer exposed L98.492 ; Type 2 diabetes mellitus with diabetic autonomic (poly)neuropathy E11.43 and Hypertension I10 [place] [address] [facility] [id number] [address] [place] [phone] Nov, [place] [address] [place] [id number] [address] [place] [phone] Nov, [place] [address] [place] [id number] [address] [place] [phone] 16 Nov, 2017 [facility] [address] [id number] [address] [place] [address] Nov, Right ankle pain M25.571 and Chronic osteomyelitis of right foot with draining sinus M86.471 [facility] [address] [id number] [address] [place] [address] Oct, Right ankle pain M25.571 [facility] [address] [id number] [address] [place] [phone] Oct, [facility] [address] [id number] [address] [place] [phone] Sep, Diabetes mellitus E11.9 [facility] [address] [id number] [address] [place] [id number] Sep, Diabetic polyneuropathy asso ciated with type 2 diabetes mellitus E11.42 and Venous insufficiency I87.2 [facility] [address] [id number] [address] [place] [address] Sep, Right ankle pain M25.571 [facility] [address] [id number] [address] [place] [phone] Aug, Right ankle pain M25.571 [facility] [address] [id number] [address] [place] [address] Aug, Chronic osteomyelitis of rig ht foot with draining sinus M86.471 [facility] [address] [id number] [address] [place] [phone] Aug, [facility] [address] [id number] [address] [place] [phone] Aug, [facility] [address] [facility] [id number] [address] [place] [phone] Aug, Chronic osteomyelitis of rig ht foot with draining sinus M86.471 [facility] [address] [id number] [address] [place] [phone] Jul, [facility] [address] [facility] [id number] [address] [place] [phone] Jul, [facility] [address] [facility] [id number] [address] [place] [phone] Jul, Chronic kidney disease N18.9 [facility] [address] [facility] [id number] [address] [place] [address] Jul, Right ankle pain M25.571 [facility] [address] [facility] [id number] [address] [place] [address] Jul, Non-healing ulcer of right f oot, unspecified ulcer stage L97.519 [place] [address] [place] [id number] [address] [place] [address] Jul, Chronic skin ulcer with fat layer exposed L98.492 [place] [address] [place] [id number] [address] [place] [address] Jul, Deformity of right ankle nitza nt M21.961 [place] [address] [place] [id number] [address] [place] [address] Jun, [place] [address] [place] [id number] [address] [place] [address] Jun, Diabetes mellitus E11.9 ; Sk in ulcer of right foot with fat layer exposed L97.512 and Encounter for immunization Z23 [place] [address] [facility] [id number] [address] [place] [address] Jun, Right ankle pain M25.571 [place] [address] [facility] [id number] [address] [place] [address] May, Right ankle pain M25.571 [place] [address] [facility] [id number] [address] [place] [address] Apr, Right ankle pain M25.571 [facility] [address] [place] [id number] [address] [place] [address] Mar, Right ankle pain M25.571 [facility] [address] [facility] [id number] [address] [place] [address] Mar, [facility] [address] [facility] [id number] [address] [place] [phone] February, Diabetes mellitus E11.9 and Diabetic polyneuropathy associated with type 2 diabetes mellitus E11.42 [facility] [address] [facility] [id number] [address] [place] [address] February, Hyperkalemia E87.5 [facility] [address] [facility] [id number] [address] [place] [address] February, Right ankle pain M25.571 [facility] [address] [facility] [id number] [address] [place] [address] Jan, Right ankle pain M25.571 [facility] [address] [place] [id number] [address] [place] [address] Dec, Right ankle pain M25.571 [facility] [address] [facility] [id number] [address] [place] [phone] Dec, Right ankle pain M25.571 [facility] [address] [facility] [id number] [address] [place] [phone] Nov, [facility] [address] [facility] [id number] [address] [place] [phone] Nov, Diabetes mellitus E11.9 ; Hy pertension I10 ; Gastroparesis K31.84 and Type 2 diabetes mellitus with diabetic autonomic (poly)neuropathy E11.43 [facility] [address] [facility] [id number] [address] [place] [address] Nov, Right ankle pain M25.571 [facility] [address] [facility] [id number] [address] [place] [address] Oct, Right ankle pain M25.571 [facility] [address] [place] [id number] [address] [place] [phone] Oct, [facility] [address] [id number] [address] [place] [phone] Oct, [facility] [address] [id number] [address] [place] [phone] Sep, [facility] [address] [facility] [id number] [address] [place] [phone] Sep, Hypertension I10 [facility] [address] [facility] [id number] [address] [place] [id number] Sep, Chronic kidney disease N18.9 ; Right ankle pain M25.571 and GERD (gastroesophageal reflux disease) K21.9 [facility] [address] [facility] [id number] [address] [place] [phone] Jul, [facility] [address] [facility] [id number] [address] [place] [phone] Jul, Encounter for immunization Z 23 ; Venous insufficiency I87.2 and Diabetic polyneuropathy associated with type 2 diabetes mellitus E11.42 [facility] [address] [facility] [id number] [address] [place] [phone] Jul, [facility] [address] [facility] [id number] [address] [place] [phone] Jul, Diabetes mellitus E11.9 [facility] [address] [facility] [id number] [address] [place] [phone] May, [facility] [address] [facility] [id number] [address] [place] [phone] Apr, [facility] [address] [facility] [id number] [address] [place] [id number] Mar, Right ankle pain M25.571 [facility] [address] [facility] [id number] [address] [place] [phone] Mar, [facility] [address] [facility] [id number] [address] [place] [phone] February, Paresthesias R20.2 [facility] [address] [id number] [address] [place] [phone] February, [facility] [address] [id number] [address] [place] [phone] February, 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 [facility] [address] [id number] [address] [place] [phone] February, Diabetes mellitus E11.9 [facility] [address] [id number] [address] [place] [phone] February, [facility] [address] [id number] [address] [place] [phone] February, Polyneuropathy in diabetes 3 57.2 and Paresthesias R20.2 [facility] [address] [id number] [address] [place] [phone] February, [facility] [address] [facility] [id number] [address] [place] [phone] February, [facility] [address] [id number] [address] [place] [phone] February, [facility] [address] [id number] [address] [place] [phone] February, Diabetes mellitus E11.9 [facility] [address] [facility] [id number] [address] [place] [phone] February, [facility] [address] [id number] [address] [place] [phone] February, Hyperkalemia E87.5 [facility] [address] [id number] [address] [place] [phone] Jan, Hypertension I10 [facility] [address] [id number] [address] [place] [address] Jan, Insomnia G47.00 [facility] [address] [facility] [id number] [address] [place] [phone] Jan, [facility] [address] [facility] [id number] [address] [place] [phone] Jan, [facility] [address] [phone] Jan, [facility] [address] [facility] [id number] [place] [address] Dec, Right ankle pain M25.571 [facility] [address] [address] Dec, GERD (gastroesophageal reflu x disease) K21.9 [place] [address] [address] Dec, Insomnia G47.00 [facility] [address] [address] Dec, Hypertension I10 and Hyperka lemia 276.7 [place] [address] [address] Dec, Chronic kidney disease N18.9 [facility] [address] [phone] Dec, [facility] [address] [address] Dec, Hyperkalemia E87.5 [place] [address] [address] Dec, Chronic kidney disease N18.9 and Right ankle pain M25.571 [facility] [address] [place] [id number] [address] [place] [phone] Nov, GERD (gastroesophageal reflu x disease) K21.9 [facility] [address] [place] [id number] [address] [place] [id number] Nov, Right ankle pain M25.571 [place] [address] [place] [id number] [address] [place] [address] Nov, Diabetes mellitus E11.9 [facility] [address] [id number] [address] [place] [phone] Oct, [facility] [address] [id number] [address] [place] [phone] Oct, [facility] [address] [id number] [address] [place] [phone] Oct, [facility] [address] [id number] [address] [place] [phone] Oct, Hyperkalemia E87.5 [facility] [address] [id number] [address] [place] [phone] Oct, [facility] [address] [id number] [address] [place] [address] Oct, Hyperkalemia E87.5 [facility] [address] [id number] [address] [place] [phone] Sep, [facility] [address] [id number] [address] [place] [phone] Sep, [facility] [address] [id number] [address] [place] [phone] Sep, [facility] [address] [id number] [address] [place] [phone] Sep, [facility] [address] [id number] [address] [place] [id number] Sep, Right ankle pain M25.571 [facility] [address] [id number] [address] [place] [phone] Aug, Chronic kidney disease N18.9 [facility] [address] [id number] [address] [place] [phone] Aug, [facility] [address] [id number] [address] [place] [phone] Aug, Hyperkalemia E87.5 [facility] [address] [id number] [address] [place] [phone] Aug, [facility] [address] [id number] [address] [place] [phone] Jul, [facility] [address] [id number] [address] [place] [phone] Jul, [facility] [address] [id number] [address] [place] [phone] Jul, [facility] [address] [id number] [address] [place] [phone] Jul, Diabetes mellitus E11.9 ; En counter for immunization Z23 ; Hypertension I10 and Hyperkalemia E87.5 [facility] [address] [id number] [address] [place] [phone] Jul, [facility] [address] [id number] [address] [place] [phone] Jul, Hyperkalemia E87.5 [facility] [address] [id number] [address] [place] [phone] Jul, Hyperkalemia E87.5 [facility] [address] [id number] [address] [place] [phone] Jun, [facility] [address] [id number] [address] [place] [phone] Jun, [facility] [address] [id number] [address] [place] [phone] 15 Jun, 2015 [facility] [address] [id number] [address] [place] [phone] Jun, [facility] [address] [id number] [address] [place] [phone] May, [facility] [address] [id number] [address] [place] [phone] May, [facility] [address] [id number] [address] [place] [phone] May, [facility] [address] [id number] [address] [place] [address], [place] [phone] May, Hyperkalemia 276.7 [facility] [address] [id number] [address] [place] [address], [place] [address] May, [facility] [address] [id number] [address] [place] [phone] Apr, Hyperkalemia 276.7 [facility] [address] [id number] [address] [place] [address], [place] [address] Apr, [facility] [address] [id number] [address] [place] [address], [place] [address] Apr, [facility] [address] [id number] [address] [place] [address], [place] [address] Apr, [facility] [address] [id number] [address] [place] [address], [place] [address] Apr, [facility] [address] [id number] [address] [place] [phone] Apr, Hyperkalemia 276.7 [facility] [address] [id number] [address] [place] [phone] Apr, [facility] [address] [id number] [address] [place] [address], [place] [address] Apr, [facility] [address] [id number] [address] [place] [id number] Mar, [facility] [address] [id number] [address] [place] [address], [place] [id number] Mar, Hyperkalemia 276.7 [facility] [address] [id number] [address] [place] [address], [place] [id number] Mar, Hyperkalemia 276.7 [facility] [address] [id number] [address] [place] [address], [place] [id number] Mar, [facility] [address] [id number] [address] [place] [id number] Mar, [facility] [place] [address] [id number] [address] [place] [id number] Mar, [facility] [place] [address] [id number] [address] [place] [id number] Mar, [facility] [place] [address] [id number] [address] [place] [id number] Mar, Anserine bursitis 726.61 [facility] [place] [address] [id number] [address] [place] [id number] Mar, Asthma 493.90 and Hyperkalem ia 276.7 [facility] [address] [id number] [address] [place] [id number] Mar, [facility] [place] [address] [id number] [address] [place] [id number] February, [facility] [place] [address] [id number] [address] [place] [id number] February, [facility] [place] [address] [id number] [address] [place] [phone] February, [facility] [place] [address] [id number] [address] [place] [id number] February, [facility] [place] [address] [id number] [address] [place] [id number] February, [facility] [place] [address] [id number] [address] [place] [id number] February, [facility] [place] [facility] [address] [id number] [address] [place] [id number] February, [facility] [place] [address] [id number] [address] [place] [id number] February, [facility] [place] [address] [id number] [address] [place] [id number] February, [facility] [address] [id number] [address] [place] [id number] 14 Jan, 2015 [facility] [address] [id number] [address] [place] [id number] 13 Jan, 2015 [facility] [address] [id number] [address] [place] [id number] 28 Dec, 2014 [facility] [address] [id number] [address] [place] [address], [place] [id number] Dec, [facility] [address] [id number] [address] [place] [address], [place] [id number] Dec, [facility] [address] [id number] [address] [place] [address], [place] [id number] Dec, [facility] [address] [id number] [address] [place] [address], [place] [id number] Dec, [facility] [address] [id number] [address] [place] [address], [place] [address] Dec, [facility] [address] [id number] [address] [place] [address], [place] [id number] Dec, [facility] [address] [id number] [address] [place] [address], [place] [id number] Dec, [facility] [address] [id number] [address] [place] [address], [place] [id number] Dec, [facility] [address] [id number] [address] [place] [address], [place] [id number] Dec, [facility] [address] [id number] [address] [place] [address], [place] [id number] Dec, [facility] [address] [id number] [address] [place] [address], [place] [id number] Dec, [facility] [address] [id number] [address] [place] [address], [place] [id number] Dec, [facility] [address] [id number] [address] [place] [address], [place] [address] Dec, [facility] [address] [id number] [address] [place] [address], [place] [id number] Nov, [facility] [address] [id number] [address] [place] [address], [place] [id number] Nov, [facility] [address] [id number] [address] [place] [address], [place] [id number] Nov, [facility] [address] [id number] [address] [place] [address], [place] [id number] Nov, [facility] [address] [id number] [address] [place] [address], [place] [id number] Nov, [facility] [address] [id number] [address] [place] [address], [place] [address] Nov, [facility] [address] [id number] [address] [place] [address], [place] [id number] Oct, [facility] [address] [id number] [address] [place] [address], [place] [id number] Oct, [facility] [address] [id number] [address] [place] [address], [place] [id number] Oct, [facility] [address] [id number] [address] [place] [address], [place] [id number] Oct, [facility] [address] [id number] [address] [place] [address], [place] [id number] Oct, [facility] [address] [id number] [address] [place] [address], [place] [id number] Oct, [facility] [address] [id number] [address] [place] [address], [place] [id number] Sep, [facility] [address] [id number] [address] [place] [address], [place] [address] Sep, [facility] [address] [id number] [address] [place] [address], [place] [address] Sep, [facility] [address] [id number] [address] [place] [address], [place] [address] Sep, [facility] [address] [id number] [address] [place] [address], [place] [address] Sep, [facility] [address] [id number] [address] [place] [address], [place] [id number] Sep, [facility] [address] [id number] [address] [place] [address], [place] [address] Aug, [facility] [address] [id number] [address] [place] [address], [place] [address] Aug, [facility] [address] [id number] [address] [place] [address], [place] [address] Aug, [facility] [address] [id number] [address] [place] [address], [place] [id number] Aug, [facility] [address] [id number] [address] [place] [address], [place] [address] Aug, [facility] [address] [id number] [address] [place] [address], [place] [address] Aug, [facility] [address] [id number] [address] [place] [address], [place] [address] Jul, [facility] [address] [id number] [address] [place] [address], [place] [id number] 30 Jul, 2014 [facility] [address] [id number] [address] [place] [address], [place] [address] Jul, [facility] [address] [id number] [address] [place] [address], [place] [address] Jul, [facility] [address] [id number] [address] [place] [address], [place] [address] Jul, [facility] [address] [id number] [address] [place] [address], [place] [address] Jul, [facility] [address] [id number] [address] [place] [address], [place] [address] Jul, [facility] [address] [id number] [address] [place] [address], [place] [address] Jul, [facility] [address] [id number] [address] [place] [address], [place] [id number] Jul, [facility] [address] [id number] [address] [place] [address], [place] [address] Jul, [facility] [address] [id number] [address] [place] [address], [place] [address] Jul, [facility] [address] [id number] [address] [place] [address], [place] [address] Jun, [facility] [address] [id number] [address] [place] [address], [place] [address] Jun, [facility] [address] [id number] [address] [place] [address], [place] [address] Jun, [facility] [address] [id number] [address] [place] [address], [place] [address] Jun, [facility] [address] [id number] [address] [place] [address], [place] [address] Apr, [facility] [address] [id number] [address] [place] [address], [place] [address] Apr, [facility] [address] [id number] [address] [place] [address], [place] [address] Apr, [facility] [address] [id number] [address] [place] [id number] Apr, [facility] [address] [id number] [address] [place] [address], [place] [address] Mar, [facility] [address] [id number] [address] [place] [address], [place] [address] Mar, [facility] [address] [id number] [address] [place] [address], [place] [address] Mar, [facility] [address] [id number] [address] [place] [id number] 14 Mar, 2014 [facility] [address] [facility] [id number] [address] [place] [id number] Mar, [facility] [address] [facility] [id number] [address] [place] [id number] Sep, [facility] [address] [facility] [id number] [address] [place] [id number] Sep, [facility] [address] [facility] [id number] [address] [place] [id number] Aug, IMMUNIZATIONS No Known Immunizations SOCIAL HISTORY Never Assessed REASON FOR VISIT Cough / congestion- dry cough since wednesday Joycelyn HERNANDEZ , sinus pressure / no hea daches / no dizzyness or lightheadedness Joycelyn hernandez , in [facility] in jun fo r7 days with pneumonia Joycelyn HERNANDEZ PLAN OF CARE Activity Details Follow Up prn Reason: VITAL SIGNS Height 62 in 2018-09-02 Weight 150 lbs 2018-09-02 Temperature 97.4 degrees Fahrenheit 2018-09-02 Heart Rate 64 bpm 2018-09-02 Respiratory Rate 16 2018-09-02 Oximetry on room air:84 % 2018-09-02 BMI 27.43 kg/m2 2018-09-02 Blood pressure systolic 118 mmHg 2018-09-02 Blood pressure diastolic 58 mmHg 2018-09-02 MEDICATIONS Medication Instructions Dosage Frequency Start Date End Date Duration S tatus Stool Softener 100 MG Orally 2 times a day 1 capsule as needed 12h Active Blood Glucose Test Test Strips subcutaneously 3 times a day chec k blood sugar 8h Nov, Active Silvadene 1 % Externally Once a day 1 application to affected area 24h Apr, Active Zofran ODT 4 MG Orally every 8 hrs 1 tablet 8h 10 Active BD Insulin Syringe MicroFine 28G X 1/2 use with insulin 8h Jul, Active NovoFine 32 gauge USE WITH INSULIN PENS THREE TIMES A DAY 30 Active Pantoprazole Sodium 40 MG TAKE ONE TABLET BY MOUTH ONCE DAILY 30 Active Glucometer ... subcutaneously one time Accu-check Nov, Active Oxycodone HCl 5 mg Orally every 6 hrs 1 tablet as needed 6h Jul, 28 days Active Wheelchair DX Non-healing right ankle fracture Jul, 2 014 Active Furosemide 40 mg Orally Once a day 2 tablet 24h 30 Active Calcium Acetate (Phos Binder) 667 MG Orally Three times a da y 2 tablets with meals 8h Active Amitriptyline HCl 25 MG TAKE ONE TO THRE E TABLETS BY MOUTH AT BEDTIME NEEDED 30 Active Amlodipine Besylate 10 MG TAKE ONE TABLET BY MOUTH ONCE DAILY 30 Active Levemir FlexTouch 100 unit/mL (3 mL) Subcutaneous Once a day 10 Uni ts 24h Jul, Active ProAir HFA 108 (90 Base) MCG/ACT Inhalation every 4 hrs 2 puffs as needed 4h Mar, Active Diabetic Shoes wear with ambulation Sep, Active MiraLax - Orally Once a day take 17 g mixed with 8 oz. water or juice by Oral route 1 time per day 24h Aug, Active Atenolol 25 MG TAKE TWO TABLETS BY MOUTH ONCE DAILY 30 Active Vitamin D 1000 UNIT Orally Once a day 5 tablet 24h Active Marie Contour Next Test - TEST BLOOD SUGAR THREE TIMES A DAY E11.9 30 Active Cinnamon 500 mg Orally Once a day 4 capsules 24h Active Zithromax Z-Alberto 250 MG Orally Once a day 2 tablets on the first day, then 1 tablet daily for 4 days 24h Aug, Aug, 5 day(s) Acti ve RESULTS No Results PROCEDURES No Known procedures [...] V C oct 2016 Hospitalization History Pneumonia [facility]- [facility] 06/2018 Hospitalization History fistula in left arm 07/2018
--- OUTSIDE RECORDS SUMMARY | 2020-04-01 19:36 | XMS REPORT ---
Author Author Josephine HANCOCK Organization [facility] Address [address] [place] [address] Care Team Providers Care Professor Of Genetics Name Role Phone SERGIO HANCOCK Unavailable PROBLEMS Type Condition ICD9-CM Code FVB03-UX Code Onset Dates Condition S tatus SNOMED Code Problem GERD (gastroesophageal reflux disease) K21.9 Active 886332311 Problem Type 2 diabetes mellitus with diabetic autonomic (poly)neuropathy E11.43 Active 976503315 Problem Gastroparesis K31.84 Active 795009 006 Problem Unsteady gait R26.81 Active 815470 08 Problem Pressure ulcer of unspecified heel, stage 4 L89.60 4 Active 848107823 Problem Chronic osteomyelitis of right foot with draining sinus M86.471 Active [id number] Problem Chronic skin ulcer with fat layer exposed L98.492 Active 62699550 Problem 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 Active 237506970 Problem Type 2 diabetes mellitus with foot ulcer E11.621 Active 92928358902655 Problem Chronic kidney disease N18.9 Active 492735634 Problem Paresthesias R20.2 Active 0862517 4 Problem Hypertension I10 Active 6106694 3 Problem Diabetic polyneuropathy associated with type 2 d iabetes mellitus E11.42 Active 31543195 Problem Diabetes mellitus E11.9 Active 73 049216 Problem Venous insufficiency I87.2 Active 28791750 ALLERGIES No Information ENCOUNTERS Encounter Location Date Diagnosis [facility] [address] [facility] [id number] [address] [place] [address] Jul, [facility] [address] [facility] [id number] [address] [place] [address] Jul, 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 [facility] [address] [facility] [id number] [address] [place] [address] Jun, [place] [id number] [facility] [id number] [address] [place] [address] Jun, [place] [address] [facility] [id number] [address] [place] [address] May, [place] [address] [facility] [id number] [address] [place] [address] May, Chronic skin ulcer with fat layer exposed L98.492 [place] [address] [facility] [id number] [address] [place] [address] Apr, [place] [address] [facility] [id number] [address] [place] [address] Apr, Type 2 diabetes mellitus wit h foot ulcer E11.621 and Unsteady gait R26.81 [place] [address] [facility] [id number] [address] [place] [address] Mar, Decubitus ulcer of right mariana l, stage 3 L89.613 [place] [address] [facility] [id number] [address] [place] [address] Mar, [place] [address] [facility] [id number] [address] [place] [address] Mar, Pressure ulcer of unspecifie d heel, stage 4 L89.604 and Type 2 diabetes mellitus with foot ulcer E11.621 [place] [address] [facility] [id number] [address] [place] [address] Mar, Encounter for medication mon itoring Z51.81 [place] [address] [facility] [id number] [address] [place] [address] Mar, Type 2 diabetes mellitus wit h foot ulcer E11.621 and Non-pressure chronic ulcer of right heel and midfoot with unspecified severity L97.419 [place] [address] [facility] [id number] [address] [place] [address] February, [place] [address] [facility] [id number] [address] [place] [address] Jan, Right ankle pain M25.571 [facility] [address] [id number] [address] [place] [address] Dec, Right ankle pain M25.571 [facility] [address] [facility] [id number] [address] [place] [address] Dec, [facility] [address] [facility] [id number] [address] [place] [address] Dec, [facility] [address] [facility] [id number] [address] [place] [address] Dec, Right ankle pain M25.571 [facility] [address] [facility] [id number] [address] [place] [address] Dec, Chronic skin ulcer with fat layer exposed L98.492 ; Type 2 diabetes mellitus with diabetic autonomic (poly)neuropathy E11.43 and Hypertension I10 [facility] [address] [facility] [id number] [address] [place] [address] Nov, [facility] [address] [facility] [id number] [address] [place] [address] Nov, [facility] [address] [place] [id number] [address] [place] [address] Nov, [facility] [address] [facility] [id number] [address] [place] [address] Nov, Right ankle pain M25.571 and Chronic osteomyelitis of right foot with draining sinus M86.471 [facility] [address] [facility] [id number] [address] [place] [address] Oct, Right ankle pain M25.571 [facility] [address] [facility] [id number] [address] [place] [address] Oct, [facility] [address] [place] [id number] [address] [place] [address] Sep, Diabetes mellitus E11.9 [facility] [address] [id number] [address] [place] [address] Sep, Diabetic polyneuropathy asso ciated with type 2 diabetes mellitus E11.42 and Venous insufficiency I87.2 [facility] [address] [id number] [address] [place] [address] Sep, Right ankle pain M25.571 [facility] [address] [id number] [address] [place] [address] Aug, Right ankle pain M25.571 [facility] [address] [id number] [address] [place] [address] Aug, Chronic osteomyelitis of rig ht foot with draining sinus M86.471 [facility] [address] [id number] [address] [place] [address] Aug, [facility] [address] [id number] [address] [place] [address] Aug, [facility] [address] [id number] [address] [place] [address] Aug, Chronic osteomyelitis of rig ht foot with draining sinus M86.471 [facility] [address] [id number] [address] [place] [address] Jul, [facility] [address] [id number] [address] [place] [address] Jul, [facility] [address] [id number] [address] [place] [address] Jul, Chronic kidney disease N18.9 [facility] [address] [id number] [address] [place] [address] Jul, Right ankle pain M25.571 [facility] [address] [facility] [id number] [address] [place] [address] Jul, Non-healing ulcer of right f oot, unspecified ulcer stage L97.519 [facility] [address] [id number] [address] [place] [address] Jul, Chronic skin ulcer with fat layer exposed L98.492 [facility] [address] [id number] [address] [place] [address] Jul, Deformity of right ankle nitza nt M21.961 [facility] [address] [id number] [address] [place] [address] Jun, [facility] [address] [facility] [id number] [address] [place] [address] Jun, Diabetes mellitus E11.9 ; Sk in ulcer of right foot with fat layer exposed L97.512 and Encounter for immunization Z23 [facility] [address] [place] [id number] [address] [place] [address] Jun, Right ankle pain M25.571 [place] [address] [place] [id number] [address] [place] [address] May, Right ankle pain M25.571 [facility] [address] [facility] [id number] [address] [place] [address] Apr, Right ankle pain M25.571 [facility] [address] [place] [id number] [address] [place] [address] Mar, Right ankle pain M25.571 [facility] [address] [facility] [id number] [address] [place] [address] Mar, [facility] [address] [facility] [id number] [address] [place] [address] February, Diabetes mellitus E11.9 and Diabetic polyneuropathy associated with type 2 diabetes mellitus E11.42 [facility] [address] [id number] [address] [place] [address] February, Hyperkalemia E87.5 [facility] [address] [facility] [id number] [address] [place] [address] February, Right ankle pain M25.571 [facility] [address] [facility] [id number] [address] [place] [address] Jan, Right ankle pain M25.571 [facility] [address] [facility] [id number] [address] [place] [address] Dec, Right ankle pain M25.571 [facility] [address] [facility] [id number] [address] [place] [address] Dec, Right ankle pain M25.571 [facility] [address] [facility] [id number] [address] [place] [address] Nov, [facility] [address] [facility] [id number] [address] [place] [address] Nov, Diabetes mellitus E11.9 ; Hy pertension I10 ; Gastroparesis K31.84 and Type 2 diabetes mellitus with diabetic autonomic (poly)neuropathy E11.43 [place] [address] [place] [id number] [address] [place] [address] Nov, Right ankle pain M25.571 [facility] [address] [facility] [id number] [address] [place] [address] Oct, Right ankle pain M25.571 [facility] [address] [facility] [id number] [address] [place] [address] Oct, [facility] [address] [facility] [id number] [address] [place] [address] Oct, [facility] [address] [place] [id number] [address] [place] [address] Sep, [facility] [address] [facility] [id number] [address] [place] [address] Sep, Hypertension I10 [facility] [address] [facility] [id number] [address] [place] [address] Sep, Chronic kidney disease N18.9 ; Right ankle pain M25.571 and GERD (gastroesophageal reflux disease) K21.9 [facility] [address] [facility] [id number] [address] [place] [address] Jul, [place] [address] [id number] [address] [place] [address] Jul, Encounter for immunization Z 23 ; Venous insufficiency I87.2 and Diabetic polyneuropathy associated with type 2 diabetes mellitus E11.42 [facility] [address] [id number] [address] [place] [address] Jul, [facility] [address] [id number] [address] [place] [address] Jul, Diabetes mellitus E11.9 [facility] [address] [id number] [address] [place] [address] May, [facility] [address] [id number] [address] [place] [address] Apr, [facility] [address] [id number] [address] [place] [address] Mar, Right ankle pain M25.571 [facility] [address] [id number] [address] [place] [address] Mar, [facility] [address] [id number] [address] [place] [address] February, Paresthesias R20.2 [facility] [address] [id number] [address] [place] [address] February, [facility] [address] [id number] [address] [place] [address] February, 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 [facility] [address] [id number] [address] [place] [address] February, Diabetes mellitus E11.9 [facility] [address] [id number] [address] [place] [address] February, [facility] [address] [id number] [address] [place] [address] February, Polyneuropathy in diabetes 3 57.2 and Paresthesias R20.2 [facility] [address] [id number] [address] [place] [address] February, [facility] [address] [id number] [address] [place] [address] February, [facility] [address] [id number] [address] [place] [address] February, [facility] [address] [facility] [id number] [address] [place] [address] February, Diabetes mellitus E11.9 [facility] [address] [id number] [address] [place] [address] February, [facility] [address] [facility] [id number] [address] [place] [address] February, Hyperkalemia E87.5 [facility] [address] [facility] [id number] [address] [place] [address] Jan, Hypertension I10 [facility] [address] [facility] [id number] [address] [place] [address] Jan, Insomnia G47.00 [facility] [address] [facility] [id number] [address] [place] [address] Jan, [facility] [address] [facility] [id number] [address] [place] [address] Jan, [facility] [address] [facility] [id number] [address] [place] [address] Jan, [facility] [address] [facility] [id number] [address] [place] [address] Dec, Right ankle pain M25.571 [facility] [address] [facility] [id number] [address] [place] [address] Dec, GERD (gastroesophageal reflu x disease) K21.9 [facility] [address] [facility] [id number] [address] [place] [address] Dec, Insomnia G47.00 [facility] [address] [facility] [id number] [address] [place] [address] 18 Dec, 2015 Hypertension I10 and Hyperka lemia 276.7 [facility] [address] [facility] [id number] [address] [place] [address] 10 Dec, 2015 Chronic kidney disease N18.9 [facility] [address] [facility] [id number] [address] [place] [address] 07 Dec, 2015 [facility] [address] [place] [id number] [place] [address] 04 Dec, 2015 Hyperkalemia E87.5 [facility] [address] [facility] [id number] [address] [place] [address] Dec, Chronic kidney disease N18.9 and Right ankle pain M25.571 [facility] [address] [facility] [id number] [address] [place] [address] 11 Nov, 2015 GERD (gastroesophageal reflu x disease) K21.9 [facility] [id number] [place] [address] Nov, Right ankle pain M25.571 [facility] [address] [address] 03 Nov, 2015 Diabetes mellitus E11.9 [facility] [address] [facility] [id number] [address] [place] [address] Oct, [facility] [address] [facility] [id number] [address] [place] [address] Oct, [facility] [address] [facility] [id number] [address] [place] [address] Oct, [facility] [address] [place] [id number] [address] [place] [address] Oct, Hyperkalemia E87.5 [facility] [address] [facility] [id number] [address] [place] [address] 08 Oct, 2015 [facility] [address] [place] [id number] [address] [place] [address] Oct, Hyperkalemia E87.5 [facility] [address] [id number] [address] [place] [address] Sep, [facility] [address] [facility] [id number] [address] [place] [address] Sep, [facility] [address] [facility] [id number] [address] [place] [address] Sep, [facility] [address] [facility] [id number] [address] [place] [address] Sep, [facility] [address] [facility] [id number] [address] [place] [address] Sep, Right ankle pain M25.571 [facility] [address] [facility] [id number] [address] [place] [address] Aug, Chronic kidney disease N18.9 [facility] [address] [facility] [id number] [address] [place] [address] Aug, [facility] [address] [facility] [id number] [address] [place] [address] Aug, Hyperkalemia E87.5 [facility] [address] [facility] [id number] [address] [place] [address] Aug, [facility] [address] [facility] [id number] [address] [place] [address] Jul, [facility] [address] [facility] [id number] [address] [place] [address] Jul, [facility] [address] [facility] [id number] [address] [place] [address] Jul, [facility] [address] [facility] [id number] [address] [place] [address] Jul, Diabetes mellitus E11.9 ; En counter for immunization Z23 ; Hypertension I10 and Hyperkalemia E87.5 [facility] [address] [id number] [address] [place] [address] Jul, [facility] [address] [id number] [address] [place] [address] Jul, Hyperkalemia E87.5 [facility] [address] [id number] [address] [place] [address] Jul, Hyperkalemia E87.5 [facility] [address] [id number] [address] [place] [address] Jun, [facility] [address] [id number] [address] [place] [address] Jun, [facility] [address] [id number] [address] [place] [address] Jun, [facility] [address] [id number] [address] [place] [address] Jun, [facility] [address] [id number] [address] [place] [address] May, [facility] [address] [id number] [address] [place] [address] May, [facility] [address] [id number] [address] [place] [address] May, [facility] [address] [id number] [address] [place] [address] May, Hyperkalemia 276.7 [facility] [address] [id number] [address] [place] [address] May, [facility] [address] [id number] [address] [place] [address] Apr, Hyperkalemia 276.7 [facility] [address] [id number] [address] [place] [address] Apr, [facility] [address] [id number] [address] [place] [address] Apr, [facility] [address] [id number] [address] [place] [address] Apr, [facility] [address] [id number] [address] [place] [address] Apr, [facility] [address] [id number] [address] [place] [address] 14 Apr, 2015 Hyperkalemia 276.7 [facility] [address] [id number] [address] [place] [address] Apr, [facility] [address] [id number] [address] [place] [address] Apr, [facility] [address] [id number] [address] [place] [id number] Mar, [facility] [address] [id number] [address] [place] [id number] Mar, Hyperkalemia 276.7 [facility] [address] [id number] [address] [place] [id number] Mar, Hyperkalemia 276.7 [facility] [address] [id number] [address] [place] [id number] Mar, [facility] [address] [id number] [address] [place] [id number] Mar, [facility] [address] [id number] [address] [place] [id number] Mar, [facility] [address] [id number] [address] [place] [id number] Mar, [facility] [address] [id number] [address] [place] [id number] Mar, Anserine bursitis 726.61 [facility] [address] [id number] [address] [place] [id number] Mar, Asthma 493.90 and Hyperkalem ia 276.7 [facility] [address] [id number] [address] [place] [id number] Mar, [facility] [address] [id number] [address] [place] [address], [place] [address] February, [facility] [address] [id number] [address] [place] [address], [place] [address] February, [facility] [address] [id number] [address] [place] [address], [place] [address] February, [facility] [address] [id number] [address] [place] [address], [place] [address] February, [facility] [address] [id number] [address] [place] [address], [place] [address] February, [facility] [address] [id number] [address] [place] [address], [place] [address] February, [facility] [address] [id number] [address] [place] [address], [place] [address] February, [facility] [address] [id number] [address] [place] [address], [place] [address] February, [facility] [address] [id number] [address] [place] [address], [place] [address] February, [facility] [address] [id number] [address] [place] [address], [place] [address] Jan, [facility] [address] [id number] [address] [place] [address], [place] [address] Jan, [facility] [address] [id number] [address] [place] [address], [place] [id number] Dec, [facility] [address] [id number] [address] [place] [address], [place] [address] Dec, [facility] [address] [id number] [address] [place] [address], [place] [address] Dec, [facility] [address] [id number] [address] [place] [address], [place] [address] Dec, [facility] [address] [id number] [address] [place] [address], [place] [address] Dec, [facility] [address] [id number] [address] [place] [address], [place] [address] Dec, [facility] [address] [id number] [address] [place] [address], [place] [address] Dec, [facility] [address] [id number] [address] [place] [address], [place] [address] Dec, [facility] [address] [id number] [address] [place] [address], [place] [address] Dec, [facility] [address] [id number] [address] [place] [address], [place] [address] Dec, [facility] [address] [id number] [address] [place] [address], [place] [address] Dec, [facility] [address] [id number] [address] [place] [address], [place] [address] Dec, [facility] [address] [id number] [address] [place] [address], [place] [address] Dec, [facility] [address] [id number] [address] [place] [address], [place] [address] Dec, [facility] [address] [id number] [address] [place] [address], [place] [address] Nov, [facility] [address] [id number] [address] [place] [address], [place] [address] Nov, [facility] [address] [id number] [address] [place] [address], [place] [address] Nov, [facility] [address] [id number] [address] [place] [address], [place] [address] Nov, [facility] [address] [id number] [address] [place] [address], [place] [address] Nov, [facility] [address] [id number] [address] [place] [address], [place] [address] Nov, [facility] [address] [id number] [address] [place] [address], [place] [address] Oct, [facility] [address] [id number] [address] [place] [address], [place] [address] Oct, [facility] [address] [id number] [address] [place] [address], [place] [address] Oct, [facility] [address] [id number] [address] [place] [address], [place] [address] Oct, [facility] [address] [id number] [address] [place] [address], [place] [address] Oct, [facility] [address] [id number] [address] [place] [address], [place] [address] Oct, [facility] [address] [id number] [address] [place] [address], [place] [address] Sep, [facility] [address] [id number] [address] [place] [address], [place] [address] Sep, [facility] [address] [id number] [address] [place] [address], [place] [address] Sep, [facility] [address] [id number] [address] [place] [address], [place] [address] Sep, [facility] [address] [id number] [address] [place] [address], [place] [address] Sep, [facility] [address] [id number] [address] [place] [address], [place] [address] Sep, [facility] [address] [id number] [address] [place] [address], [place] [address] Aug, [facility] [address] [id number] [address] [place] [address], [place] [address] Aug, [facility] [address] [id number] [address] [place] [address], [place] [address] Aug, [facility] [address] [id number] [address] [place] [address], [place] [address] Aug, [facility] [address] [id number] [address] [place] [address], [place] [address] Aug, [facility] [address] [id number] [address] [place] [address], [place] [address] Aug, [facility] [address] [id number] [address] [place] [address], [place] [address] Jul, [facility] [address] [id number] [address] [place] [address], [place] [address] Jul, [facility] [address] [id number] [address] [place] [address], [place] [address] Jul, [facility] [address] [id number] [address] [place] [address], [place] [address] Jul, [facility] [address] [id number] [address] [place] [address], [place] [address] Jul, [facility] [address] [id number] [address] [place] [address], [place] [address] Jul, [facility] [address] [id number] [address] [place] [address], [place] [address] Jul, [facility] [address] [id number] [address] [place] [address], [place] [address] Jul, [facility] [address] [id number] [address] [place] [address], [place] [address] Jul, [facility] [address] [id number] [address] [place] [address], [place] [address] Jul, [facility] [address] [id number] [address] [place] [address], [place] [address] Jul, [facility] [address] [id number] [address] [place] [address], [place] [address] Jun, [facility] [address] [id number] [address] [place] [address], [place] [address] Jun, [facility] [address] [id number] [address] [place] [address] Jun, [facility] [address] [id number] [address] [place] [address] Jun, [facility] [address] [id number] [address] [place] [address] Apr, [facility] [address] [id number] [address] [place] [address] Apr, [facility] [address] [id number] [address] [place] [address] Apr, [facility] [address] [id number] [address] [place] [address] Apr, [facility] [address] [id number] [address] [place] [address] Mar, [facility] [address] [id number] [address] [place] [address] Mar, [facility] [address] [id number] [address] [place] [address] Mar, [facility] [address] [id number] [address] [place] [address] Mar, [facility] [address] [id number] [address] [place] [address] Mar, [facility] [address] [id number] [address] [place] [address] Sep, [facility] [address] [id number] [address] [place] [address] Sep, [facility] [address] [id number] [address] [place] [address] Aug, IMMUNIZATIONS No Known Immunizations SOCIAL HISTORY [...] V C oct 2016 Hospitalization History [place] 06/2018
--- OUTSIDE RECORDS SUMMARY | 2020-04-01 19:36 | XMS REPORT ---
Author Author Josephine WILLIS Organization [facility] Address [address] [place] [address] Care Team Providers Care Sap Pi Developer Name Role Phone OLYA WILLIS Unavailable PROBLEMS Type Condition ICD9-CM Code [id number] Code Onset Dates Condition S tatus SNOMED Code Problem GERD (gastroesophageal reflux disease) K21.9 Active 296640032 Problem Type 2 diabetes mellitus with diabetic autonomic (poly)neuropathy E11.43 Active 185134201 Problem Gastroparesis K31.84 Active 549504 006 Problem Unsteady gait R26.81 Active 203581 08 Problem Pressure ulcer of unspecified heel, stage 4 L89.60 4 Active 038753821 Problem Chronic osteomyelitis of right foot with draining sinus M86.471 Active 519569046163121 Problem Chronic skin ulcer with fat layer exposed L98.492 Active 14792116 Problem 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 Active 026184375 Problem Type 2 diabetes mellitus with foot ulcer E11.621 Active 60434777124507 Problem Chronic kidney disease N18.9 Active 041914360 Problem Paresthesias R20.2 Active 1716773 4 Problem Hypertension I10 Active 3760190 3 Problem Diabetic polyneuropathy associated with type 2 d iabetes mellitus E11.42 Active 74632540 Problem Diabetes mellitus E11.9 Active 73 334519 Problem Venous insufficiency I87.2 Active 13859081 ALLERGIES No Information ENCOUNTERS Encounter Location Date Diagnosis [facility] [address] [facility] [id number] [address] [place] [address] Jun, [facility] [address] [facility] [id number] [address] [place] [address] May, [facility] [address] [facility] [id number] [address] [place] [address] May, Chronic skin ulcer with fat layer exposed L98.492 [place] [address] [facility] [id number] [address] [place] [address] Apr, [facility] [address] [place] [id number] [address] [place] [address] Apr, Type 2 diabetes mellitus wit h foot ulcer E11.621 and Unsteady gait R26.81 [place] [address] [place] [id number] [address] [place] [address] Mar, Decubitus ulcer of right mariana l, stage 3 L89.613 [place] [address] [place] [id number] [address] [place] [address] Mar, [place] [address] [place] [id number] [address] [place] [address] Mar, Pressure ulcer of unspecifie d heel, stage 4 L89.604 and Type 2 diabetes mellitus with foot ulcer E11.621 [place] [address] [place] [id number] [address] [place] [address] Mar, Encounter for medication mon itoring Z51.81 [place] [address] [place] [id number] [address] [place] [address] Mar, Type 2 diabetes mellitus wit h foot ulcer E11.621 and Non-pressure chronic ulcer of right heel and midfoot with unspecified severity L97.419 [place] [address] [place] [id number] [address] [place] [address] February, [place] [address] [place] [id number] [address] [place] [address] Jan, Right ankle pain M25.571 [place] [address] [place] [id number] [address] [place] [address] Dec, Right ankle pain M25.571 [place] [address] [place] [id number] [address] [place] [address] Dec, [place] [address] [place] [id number] [address] [place] [address] Dec, [facility] [address] [id number] [address] [place] [address] Dec, Right ankle pain M25.571 [facility] [address] [id number] [address] [place] [address] Dec, Chronic skin ulcer with fat layer exposed L98.492 ; Type 2 diabetes mellitus with diabetic autonomic (poly)neuropathy E11.43 and Hypertension I10 [facility] [address] [id number] [address] [place] [address] Nov, [facility] [address] [id number] [address] [place] [address] Nov, [facility] [address] [facility] [id number] [address] [place] [address] Nov, [facility] [address] [facility] [id number] [address] [place] [address] Nov, Right ankle pain M25.571 and Chronic osteomyelitis of right foot with draining sinus M86.471 [facility] [address] [facility] [id number] [address] [place] [address] Oct, Right ankle pain M25.571 [facility] [address] [facility] [id number] [address] [place] [address] Oct, [facility] [address] [facility] [id number] [address] [place] [address] Sep, Diabetes mellitus E11.9 [facility] [address] [facility] [id number] [address] [place] [address] Sep, Diabetic polyneuropathy asso ciated with type 2 diabetes mellitus E11.42 and Venous insufficiency I87.2 [facility] [address] [facility] [id number] [address] [place] [address] Sep, Right ankle pain M25.571 [facility] [address] [facility] [id number] [address] [place] [address] Aug, Right ankle pain M25.571 [facility] [address] [id number] [address] [place] [address] Aug, Chronic osteomyelitis of rig ht foot with draining sinus M86.471 [facility] [address] [id number] [address] [place] [address] Aug, [facility] [address] [id number] [address] [place] [address] Aug, [facility] [address] [id number] [address] [place] [address] Aug, Chronic osteomyelitis of rig ht foot with draining sinus M86.471 [facility] [address] [id number] [address] [place] [address] Jul, [facility] [address] [id number] [address] [place] [address] Jul, [facility] [address] [id number] [address] [place] [address] Jul, Chronic kidney disease N18.9 [facility] [address] [id number] [address] [place] [address] Jul, Right ankle pain M25.571 [facility] [address] [id number] [address] [place] [address] Jul, Non-healing ulcer of right f oot, unspecified ulcer stage L97.519 [facility] [address] [id number] [address] [place] [address] Jul, Chronic skin ulcer with fat layer exposed L98.492 [facility] [address] [id number] [address] [place] [address] Jul, Deformity of right ankle nitza nt M21.961 [facility] [address] [id number] [address] [place] [address] Jun, [facility] [address] [id number] [address] [place] [address] Jun, Diabetes mellitus E11.9 ; Sk in ulcer of right foot with fat layer exposed L97.512 and Encounter for immunization Z23 [facility] [address] [facility] [id number] [address] [place] [address] 18 Jun, 2017 Right ankle pain M25.571 [facility] [address] [facility] [id number] [address] [place] [address] May, Right ankle pain M25.571 [facility] [address] [facility] [id number] [address] [place] [address] Apr, Right ankle pain M25.571 [place] [address] [place] [id number] [address] [place] [address] Mar, Right ankle pain M25.571 [place] [address] [place] [id number] [address] [place] [address] Mar, [place] [address] [place] [id number] [address] [place] [address] February, Diabetes mellitus E11.9 and Diabetic polyneuropathy associated with type 2 diabetes mellitus E11.42 [place] [address] [place] [id number] [address] [place] [address] February, Hyperkalemia E87.5 [place] [address] [place] [id number] [address] [place] [address] February, Right ankle pain M25.571 [place] [address] [place] [id number] [address] [place] [address] Jan, Right ankle pain M25.571 [place] [address] [facility] [id number] [address] [place] [address] Dec, Right ankle pain M25.571 [facility] [address] [facility] [id number] [address] [place] [address] Dec, Right ankle pain M25.571 [place] [address] [facility] [id number] [address] [place] [address] Nov, [facility] [address] [facility] [id number] [address] [place] [address] Nov, Diabetes mellitus E11.9 ; Hy pertension I10 ; Gastroparesis K31.84 and Type 2 diabetes mellitus with diabetic autonomic (poly)neuropathy E11.43 [facility] [address] [id number] [address] [place] [address] Nov, Right ankle pain M25.571 [facility] [address] [id number] [address] [place] [address] Oct, Right ankle pain M25.571 [facility] [address] [facility] [id number] [address] [place] [address] Oct, [facility] [address] [facility] [id number] [address] [place] [address] Oct, [facility] [address] [facility] [id number] [address] [place] [address] Sep, [facility] [address] [facility] [id number] [address] [place] [address] Sep, Hypertension I10 [facility] [address] [facility] [id number] [address] [place] [address] Sep, Chronic kidney disease N18.9 ; Right ankle pain M25.571 and GERD (gastroesophageal reflux disease) K21.9 [facility] [address] [facility] [id number] [address] [place] [address] Jul, [facility] [address] [facility] [id number] [address] [place] [address] Jul, Encounter for immunization Z 23 ; Venous insufficiency I87.2 and Diabetic polyneuropathy associated with type 2 diabetes mellitus E11.42 [facility] [address] [facility] [id number] [address] [place] [address] Jul, [facility] [address] [place] [id number] [address] [place] [address] Jul, Diabetes mellitus E11.9 [facility] [address] [id number] [address] [place] [address] May, [facility] [address] [id number] [address] [place] [address] Apr, [facility] [address] [id number] [address] [place] [address] Mar, Right ankle pain M25.571 [facility] [address] [id number] [address] [place] [address] Mar, [facility] [address] [id number] [address] [place] [address] February, Paresthesias R20.2 [facility] [address] [id number] [address] [place] [address] February, [facility] [address] [id number] [address] [place] [address] February, 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 [facility] [address] [id number] [address] [place] [address] February, Diabetes mellitus E11.9 [facility] [address] [id number] [address] [place] [address] February, [facility] [address] [id number] [address] [place] [address] February, Polyneuropathy in diabetes 3 57.2 and Paresthesias R20.2 [facility] [address] [id number] [address] [place] [address] February, [facility] [address] [id number] [address] [place] [address] February, [facility] [address] [id number] [address] [place] [address] February, [facility] [address] [id number] [address] [place] [address] February, Diabetes mellitus E11.9 [facility] [address] [facility] [id number] [address] [place] [address] February, [facility] [address] [facility] [id number] [address] [place] [address] February, Hyperkalemia E87.5 [facility] [address] [facility] [id number] [address] [place] [address] Jan, Hypertension I10 [facility] [address] [facility] [id number] [address] [place] [address] Jan, Insomnia G47.00 [facility] [address] [facility] [id number] [place] [address] Jan, [facility] [address] [place] [id number] [address] [place] [address] Jan, [facility] [address] [address] Jan, [facility] [address] [facility] [id number] [address] [place] [address] Dec, Right ankle pain M25.571 [facility] [address] [place] [id number] [address] [place] [address] Dec, GERD (gastroesophageal reflu x disease) K21.9 [facility] [address] [place] [id number] [address] [place] [address] Dec, Insomnia G47.00 [facility] [address] [facility] [id number] [address] [place] [address] Dec, Hypertension I10 and Hyperka lemia 276.7 [facility] [address] [facility] [id number] [address] [place] [address] Dec, Chronic kidney disease N18.9 [facility] [address] [place] [id number] [address] [place] [address] Dec, [facility] [address] [place] [id number] [address] [place] [address] Dec, Hyperkalemia E87.5 [facility] [address] [id number] [address] [place] [address] Dec, Chronic kidney disease N18.9 and Right ankle pain M25.571 [facility] [address] [facility] [id number] [address] [place] [address] Nov, GERD (gastroesophageal reflu x disease) K21.9 [facility] [address] [id number] [address] [place] [address] Nov, Right ankle pain M25.571 [facility] [address] [id number] [address] [place] [address] Nov, Diabetes mellitus E11.9 [facility] [address] [id number] [address] [place] [address] Oct, [facility] [address] [id number] [address] [place] [address] Oct, [facility] [address] [id number] [address] [place] [address] Oct, [facility] [address] [id number] [address] [place] [address] Oct, Hyperkalemia E87.5 [facility] [address] [id number] [address] [place] [address] Oct, [facility] [address] [id number] [address] [place] [address] Oct, Hyperkalemia E87.5 [facility] [address] [id number] [address] [place] [address] Sep, [facility] [address] [id number] [address] [place] [address] Sep, [facility] [address] [id number] [address] [place] [address] Sep, [facility] [address] [id number] [address] [place] [address] Sep, [facility] [address] [facility] [id number] [address] [place] [address] Sep, Right ankle pain M25.571 [facility] [address] [facility] [id number] [address] [place] [address] Aug, Chronic kidney disease N18.9 [facility] [address] [id number] [address] [place] [address] Aug, [facility] [address] [id number] [address] [place] [address] Aug, Hyperkalemia E87.5 [facility] [address] [facility] [id number] [address] [place] [address] Aug, [facility] [address] [facility] [id number] [address] [place] [address] Jul, [facility] [address] [facility] [id number] [address] [place] [address] Jul, [facility] [address] [facility] [id number] [address] [place] [address] Jul, [facility] [address] [facility] [id number] [address] [place] [address] Jul, Diabetes mellitus E11.9 ; En counter for immunization Z23 ; Hypertension I10 and Hyperkalemia E87.5 [facility] [address] [id number] [address] [place] [address] Jul, [facility] [address] [facility] [id number] [address] [place] [address] Jul, Hyperkalemia E87.5 [facility] [address] [facility] [id number] [address] [place] [address] Jul, Hyperkalemia E87.5 [facility] [address] [facility] [id number] [address] [place] [address] 28 Jun, 2015 [facility] [address] [id number] [address] [place] [address], [place] [address] Jun, [facility] [address] [id number] [address] [place] [address], [place] [address] Jun, [facility] [address] [id number] [address] [place] [address], [place] [address] Jun, [facility] [address] [id number] [address] [place] [address], [place] [address] May, [facility] [address] [id number] [address] [place] [address], [place] [address] May, [facility] [address] [id number] [address] [place] [address], [place] [address] May, [facility] [address] [id number] [address] [place] [address], [place] [address] May, Hyperkalemia 276.7 [facility] [address] [id number] [address] [place] [address], [place] [address] May, [facility] [address] [id number] [address] [place] [address], [place] [address] Apr, Hyperkalemia 276.7 [facility] [address] [id number] [address] [place] [address], [place] [address] Apr, [facility] [address] [id number] [address] [place] [address], [place] [address] Apr, [facility] [address] [id number] [address] [place] [address], [place] [address] Apr, [facility] [address] [id number] [address] [place] [address], [place] [address] Apr, [facility] [address] [id number] [address] [place] [address], [place] [address] Apr, Hyperkalemia 276.7 [facility] [address] [id number] [address] [place] [address] Apr, [facility] [address] [id number] [address] [place] [address] Apr, [facility] [address] [id number] [address] [place] [address] Mar, [facility] [address] [id number] [address] [place] [address] Mar, Hyperkalemia 276.7 [facility] [address] [id number] [address] [place] [address] Mar, Hyperkalemia 276.7 [facility] [address] [id number] [address] [place] [address] Mar, [facility] [address] [id number] [address] [place] [address] Mar, [facility] [address] [id number] [address] [place] [address] Mar, [facility] [address] [id number] [address] [place] [address] Mar, [facility] [address] [id number] [address] [place] [address] Mar, Anserine bursitis 726.61 [facility] [address] [id number] [address] [place] [address] Mar, Asthma 493.90 and Hyperkalem ia 276.7 [facility] [address] [id number] [address] [place] [address] Mar, [facility] [address] [id number] [address] [place] [address] February, [facility] [address] [id number] [address] [place] [address] February, [facility] [address] [id number] [address] [place] [address] February, [facility] [address] [id number] [address] [place] [address], [place] [address] February, [facility] [address] [id number] [address] [place] [address], [place] [address] February, [facility] [address] [id number] [address] [place] [address], [place] [address] February, [facility] [address] [id number] [address] [place] [address], [place] [address] February, [facility] [address] [id number] [address] [place] [address], [place] [address] February, [facility] [address] [id number] [address] [place] [address], [place] [address] February, [facility] [address] [id number] [address] [place] [address], [place] [address] Jan, [facility] [address] [id number] [address] [place] [address], [place] [address] Jan, [facility] [address] [id number] [address] [place] [address], [place] [address] Dec, [facility] [address] [id number] [address] [place] [address], [place] [address] Dec, [facility] [address] [id number] [address] [place] [address], [place] [address] Dec, [facility] [address] [id number] [address] [place] [address], [place] [address] Dec, [facility] [address] [id number] [address] [place] [address], [place] [address] Dec, [facility] [address] [id number] [address] [place] [address], [place] [address] Dec, [facility] [address] [id number] [address] [place] [address], [place] [address] Dec, [facility] [address] [id number] [address] [place] [address], [place] [address] Dec, [facility] [address] [id number] [address] [place] [address], [place] [address] Dec, [facility] [address] [id number] [address] [place] [address], [place] [address] Dec, [facility] [address] [id number] [address] [place] [address], [place] [address] Dec, [facility] [address] [id number] [address] [place] [address], [place] [address] Dec, [facility] [address] [id number] [address] [place] [address], [place] [address] Dec, [facility] [address] [id number] [address] [place] [address], [place] [address] Dec, [facility] [address] [id number] [address] [place] [address], [place] [address] Nov, [facility] [address] [id number] [address] [place] [address], [place] [address] Nov, [facility] [address] [id number] [address] [place] [address], [place] [address] Nov, [facility] [address] [id number] [address] [place] [address], [place] [address] Nov, [facility] [address] [id number] [address] [place] [address], [place] [address] Nov, [facility] [address] [id number] [address] [place] [address], [place] [address] Nov, [facility] [address] [id number] [address] [place] [address], [place] [address] Oct, [facility] [address] [id number] [address] [place] [address], [place] [address] Oct, [facility] [address] [id number] [address] [place] [address], [place] [address] Oct, [facility] [address] [id number] [address] [place] [address], [place] [address] Oct, [facility] [address] [id number] [address] [place] [address], [place] [address] Oct, [facility] [address] [id number] [address] [place] [address], [place] [address] Oct, [facility] [address] [id number] [address] [place] [address], [place] [address] 30 Sep, 2014 [facility] [address] [id number] [address] [place] [address], [place] [address] 30 Sep, 2014 [facility] [address] [id number] [address] [place] [address], [place] [address] Sep, [facility] [address] [id number] [address] [place] [address], [place] [address] Sep, [facility] [address] [id number] [address] [place] [address], [place] [address] Sep, [facility] [address] [id number] [address] [place] [address], [place] [address] Sep, [facility] [address] [id number] [address] [place] [address], [place] [address] Aug, [facility] [address] [id number] [address] [place] [address], [place] [address] Aug, [facility] [address] [id number] [address] [place] [address], [place] [address] Aug, [facility] [address] [id number] [address] [place] [address], [place] [address] Aug, [facility] [address] [id number] [address] [place] [address], [place] [address] Aug, [facility] [address] [id number] [address] [place] [address], [place] [address] Aug, [facility] [address] [id number] [address] [place] [address], [place] [address] Jul, [facility] [address] [id number] [address] [place] [address], [place] [address] Jul, [facility] [address] [id number] [address] [place] [address], [place] [address] Jul, [facility] [address] [id number] [address] [place] [address], [place] [address] Jul, [facility] [address] [id number] [address] [place] [address], [place] [address] Jul, [facility] [address] [id number] [address] [place] [address], [place] [address] Jul, [facility] [address] [id number] [address] [place] [address], [place] [address] Jul, [facility] [address] [id number] [address] [place] [address], [place] [address] Jul, [facility] [address] [id number] [address] [place] [address], [place] [address] Jul, [facility] [address] [id number] [address] [place] [address], [place] [address] Jul, [facility] [address] [id number] [address] [place] [address], [place] [address] Jul, [facility] [address] [id number] [address] [place] [address], [place] [address] Jun, [facility] [address] [id number] [address] [place] [address] Jun, [facility] [address] [id number] [address] [place] [address], [place] [address] Jun, [facility] [address] [id number] [address] [place] [address], [place] [address] Jun, [facility] [address] [id number] [address] [place] [address], [place] [address] Apr, [facility] [address] [id number] [address] [place] [address] Apr, [facility] [address] [id number] [address] [place] [address] Apr, [facility] [address] [id number] [address] [place] [address] Apr, [facility] [address] [id number] [address] [place] [address] Mar, [facility] [address] [id number] [address] [place] [address] Mar, [facility] [address] [id number] [address] [place] [address] Mar, [facility] [address] [id number] [address] [place] [address] Mar, [facility] [address] [id number] [address] [place] [address] Mar, [facility] [address] [id number] [address] [place] [address] Sep, [facility] [address] [id number] [address] [place] [address] Sep, [facility] [address] [id number] [address] [place] [address] Aug, IMMUNIZATIONS No Known Immunizations SOCIAL HISTORY Never Assessed REASON FOR VISIT Controlled Med Refill 06/21 PLAN OF CARE VITAL SIGNS MEDICATIONS Medication Instructions Dosage Frequency Start Date End Date Duration S tatus Oxycodone HCl 5 mg Orally every 6 hrs 1 tablet as needed 6h May, 28 days Active RESULTS No Results PROCEDURES [...]
--- OUTSIDE RECORDS SUMMARY | 2020-04-01 19:36 | XMS REPORT ---
Author Author Josephine WILLIS Organization [facility] Address [address] [place] [address] Care Team Providers Care Care Attendant Name Role Phone OLYA WILLIS Unavailable PROBLEMS Type Condition ICD9-CM Code ZLV39-GJ Code Onset Dates Condition S tatus SNOMED Code Problem GERD (gastroesophageal reflux disease) K21.9 Active 643857189 Problem Type 2 diabetes mellitus with diabetic autonomic (poly)neuropathy E11.43 Active 039031904 Problem Gastroparesis K31.84 Active 920655 006 Problem Unsteady gait R26.81 Active 310007 08 Problem Pressure ulcer of unspecified heel, stage 4 L89.60 4 Active 096464221 Problem Chronic osteomyelitis of right foot with draining sinus M86.471 Active 456834703566346 Problem Chronic skin ulcer with fat layer exposed L98.492 Active 54321885 Problem 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 Active 250577104 Problem Type 2 diabetes mellitus with foot ulcer E11.621 Active 45452103421670 Problem Chronic kidney disease N18.9 Active 429228461 Problem Paresthesias R20.2 Active 2312730 4 Problem Hypertension I10 Active 5870834 3 Problem Diabetic polyneuropathy associated with type 2 d iabetes mellitus E11.42 Active 56989404 Problem Diabetes mellitus E11.9 Active 73 813241 Problem Venous insufficiency I87.2 Active 70363479 ALLERGIES No Information ENCOUNTERS Encounter Location Date Diagnosis [facility] [address] [facility] [id number] [address] [place] [phone] Jul, [facility] [address] [facility] [id number] [address] [place] [address] Jul, 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 [facility] [address] [facility] [id number] [address] [place] [phone] Jun, [facility] [address] [facility] [id number] [address] [place] [phone] Jun, [facility] [address] [facility] [id number] [address] [place] [address] May, [facility] [address] [facility] [id number] [address] [place] [address] May, Chronic skin ulcer with fat layer exposed L98.492 [place] [address] [id number] [address] [place] [address] Apr, [place] [address] [facility] [id number] [address] [place] [address] Apr, Type 2 diabetes mellitus wit h foot ulcer E11.621 and Unsteady gait R26.81 [place] [address] [facility] [id number] [address] [place] [address] Mar, Decubitus ulcer of right mariana l, stage 3 L89.613 [place] [address] [facility] [id number] [address] [place] [address] Mar, [place] [address] [facility] [id number] [address] [place] [address] Mar, Pressure ulcer of unspecifie d heel, stage 4 L89.604 and Type 2 diabetes mellitus with foot ulcer E11.621 [place] [address] [facility] [id number] [address] [place] [address] Mar, Encounter for medication mon itoring Z51.81 [place] [address] [facility] [id number] [address] [place] [address] Mar, Type 2 diabetes mellitus wit h foot ulcer E11.621 and Non-pressure chronic ulcer of right heel and midfoot with unspecified severity L97.419 [place] [address] [facility] [id number] [address] [place] [address] February, [place] [address] [place] [id number] [address] [place] [address] Jan, Right ankle pain M25.571 [facility] [address] [address] Dec, Right ankle pain M25.571 [facility] [address] [place] [id number] [place] [address] Dec, [facility] [address] [address] Dec, [facility] [address] [place] [id number] [place] [address] Dec, Right ankle pain M25.571 [facility] [address] [address] Dec, Chronic skin ulcer with fat layer exposed L98.492 ; Type 2 diabetes mellitus with diabetic autonomic (poly)neuropathy E11.[address] [facility] [address] [address] Nov, [facility] [address] [address] Nov, [facility] [address] [address] Nov, [facility] [address] [address] Nov, Right ankle pain M25.571 and Chronic osteomyelitis of right foot with draining sinus M86.471 [facility] [address] [place] [id number] [address] [place] [address] Oct, Right ankle pain M25.571 [facility] [address] [address] Oct, [facility] [address] [place] [id number] [address] [place] [address] Sep, Diabetes mellitus E11.9 [facility] [address] [id number] [address] [place] [address] Sep, Diabetic polyneuropathy asso ciated with type 2 diabetes mellitus E11.42 [address] Ven[address] insufficiency I87.2 [facility] [address] [id number] [address] [place] [address] Sep, Right ankle pain M25.571 [facility] [address] [id number] [address] [place] [address] Aug, Right ankle pain M25.571 [facility] [address] [id number] [address] [place] [address] Aug, Chronic osteomyelitis of rig ht foot with draining sinus M86.471 [facility] [address] [id number] [address] [place] [address] Aug, [facility] [address] [id number] [address] [place] [address] Aug, [facility] [address] [id number] [address] [place] [address] Aug, Chronic osteomyelitis of rig ht foot with draining sinus M86.471 [facility] [address] [id number] [address] [place] [address] Jul, [facility] [address] [id number] [address] [place] [address] Jul, [facility] [address] [id number] [address] [place] [address] Jul, Chronic kidney disease N18.9 [facility] [address] [id number] [address] [place] [address] Jul, Right ankle pain M25.571 [facility] [address] [id number] [address] [place] [address] Jul, Non-healing ulcer of right f oot, unspecified ulcer stage L97.519 [facility] [address] [id number] [address] [place] [address] Jul, Chronic skin ulcer with fat layer exposed L98.492 [facility] [address] [id number] [address] [place] [address] Jul, Deformity of right ankle nitza nt M21.961 [facility] [address] [id number] [address] [place] [address] Jun, [facility] [address] [facility] [id number] [address] [place] [address] Jun, Diabetes mellitus E11.9 ; Sk in ulcer of right foot with fat layer exposed L97.512 and Encounter for immunization Z23 [place] [address] [place] [id number] [address] [place] [address] 18 Jun, 2017 Right ankle pain M25.571 [place] [address] [place] [id number] [address] [place] [address] May, Right ankle pain M25.571 [place] [address] [facility] [id number] [address] [place] [address] Apr, Right ankle pain M25.571 [place] [address] [place] [id number] [address] [place] [address] Mar, Right ankle pain M25.571 [place] [address] [facility] [id number] [address] [place] [address] Mar, [facility] [address] [facility] [id number] [address] [place] [address] February, Diabetes mellitus E11.9 and Diabetic polyneuropathy associated with type 2 diabetes mellitus E11.42 [place] [address] [facility] [id number] [address] [place] [address] February, Hyperkalemia E87.5 [facility] [address] [facility] [id number] [address] [place] [address] February, Right ankle pain M25.571 [facility] [address] [facility] [id number] [address] [place] [address] Jan, Right ankle pain M25.571 [facility] [address] [facility] [id number] [address] [place] [address] Dec, Right ankle pain M25.571 [facility] [address] [facility] [id number] [address] [place] [address] Dec, Right ankle pain M25.571 [facility] [address] [facility] [id number] [address] [place] [address] Nov, [facility] [address] [facility] [id number] [address] [place] [address] Nov, Diabetes mellitus E11.9 ; Hy pertension I10 ; Gastroparesis K31.84 and Type 2 diabetes mellitus with diabetic autonomic (poly)neuropathy E11.43 [place] [address] [facility] [id number] [address] [place] [address] Nov, Right ankle pain M25.571 [facility] [address] [facility] [id number] [address] [place] [address] Oct, Right ankle pain M25.571 [facility] [address] [facility] [id number] [address] [place] [address] Oct, [facility] [address] [facility] [id number] [address] [place] [address] Oct, [facility] [address] [facility] [id number] [address] [place] [address] Sep, [facility] [address] [facility] [id number] [address] [place] [address] Sep, Hypertension I10 [facility] [address] [facility] [id number] [address] [place] [address] Sep, Chronic kidney disease N18.9 ; Right ankle pain M25.571 and GERD (gastroesophageal reflux disease) K21.9 [facility] [address] [facility] [id number] [address] [place] [address] Jul, [facility] [address] [id number] [address] [place] [address] Jul, Encounter for immunization Z 23 ; Venous insufficiency I87.2 and Diabetic polyneuropathy associated with type [address] [facility] [address] [id number] [address] [place] [address] Jul, [facility] [address] [id number] [address] [place] [address] Jul, Diabetes mellitus E11.9 [facility] [address] [id number] [address] [place] [address] May, [facility] [address] [id number] [address] [place] [address] Apr, [facility] [address] [id number] [address] [place] [address] Mar, Right ankle pain M25.571 [facility] [address] [id number] [address] [place] [address] Mar, [facility] [address] [id number] [address] [place] [address] February, Paresthesias R20.2 [facility] [address] [id number] [address] [place] [address] February, [facility] [address] [id number] [address] [place] [address] February, 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 [facility] [address] [id number] [address] [place] [address] February, Diabetes mellitus E11.9 [facility] [address] [id number] [address] [place] [address] February, [facility] [address] [id number] [address] [place] [address] February, Polyneuropathy in diabetes 3 57.[address] [facility] [address] [id number] [address] [place] [address] February, [facility] [address] [id number] [address] [place] [address] February, [facility] [address] [id number] [address] [place] [address] February, [facility] [address] [id number] [address] [place] [address] February, Diabetes mellitus E11.9 [facility] [address] [id number] [address] [place] [address] February, [facility] [address] [facility] [id number] [address] [place] [address] February, Hyperkalemia E87.5 [facility] [address] [facility] [id number] [address] [place] [address] Jan, Hypertension I10 [facility] [address] [id number] [address] [place] [address] Jan, Insomnia G47.00 [facility] [address] [facility] [id number] [address] [place] [phone] Jan, [facility] [address] [facility] [id number] [address] [place] [address] Jan, [facility] [address] [facility] [id number] [address] [place] [address] Jan, [facility] [address] [id number] [address] [place] [address] Dec, Right ankle pain M25.571 [facility] [address] [facility] [id number] [address] [place] [address] Dec, GERD (gastroesophageal reflu x disease) K21.9 [facility] [address] [facility] [id number] [address] [place] [address] Dec, Insomnia G47.00 [facility] [address] [id number] [address] [place] [address] 18 Dec, 2015 Hypertension I10 and Hyperka lemia 276.7 [facility] [address] [facility] [id number] [address] [place] [address] 10 Dec, 2015 Chronic kidney disease N18.9 [facility] [address] [facility] [id number] [address] [place] [id number] 07 Dec, 2015 [facility] [address] [facility] [id number] [address] [place] [address] 04 Dec, [address] [facility] [address] [facility] [id number] [address] [place] [address] Dec, Chronic kidney disease N18.9 and Right ankle pain M25.571 [facility] [address] [place] [id number] [address] [place] [id number] 11 Nov, 2015 GERD (gastroesophageal reflu x disease) K21.9 [facility] [address] [facility] [id number] [address] [place] [address] 03 Nov, 2015 Right ankle pain M25.571 [facility] [address] [address] 03 Nov, [address] [facility] [address] [facility] [id number] [address] [place] [address] Oct, [facility] [address] [facility] [id number] [address] [place] [address] Oct, [facility] [address] [facility] [id number] [address] [place] [address] Oct, [facility] [address] [place] [id number] [address] [place] [address] Oct, Hyperkalemia E87.5 [facility] [address] [facility] [id number] [address] [place] [address] Oct, [facility] [address] [place] [id number] [address] [place] [address] Oct, Hyperkalemia E87.5 [facility] [address] [id number] [address] [place] [address] Sep, [facility] [address] [id number] [address] [place] [address] Sep, [facility] [address] [id number] [address] [place] [address] Sep, [facility] [address] [id number] [address] [place] [address] Sep, [facility] [address] [facility] [id number] [address] [place] [address] Sep, Right ankle pain M25.571 [facility] [address] [facility] [id number] [address] [place] [address] Aug, Chronic kidney disease N18.9 [facility] [address] [id number] [address] [place] [address] Aug, [facility] [address] [facility] [id number] [address] [place] [address] Aug, Hyperkalemia E87.5 [facility] [address] [facility] [id number] [address] [place] [address] Aug, [facility] [address] [facility] [id number] [address] [place] [address] Jul, [facility] [address] [facility] [id number] [address] [place] [address] Jul, [facility] [address] [facility] [id number] [address] [place] [address] Jul, [facility] [address] [facility] [id number] [address] [place] [address] Jul, Diabetes mellitus E11.9 ; En counter for immunization Z23 ; Hypertension I10 and Hyperkalemia E87.5 [facility] [address] [id number] [address] [place] [address] [place] [address] Jul, [facility] [address] [id number] [address] [place] [address], [place] [address] Jul, Hyperkalemia E87.5 [facility] [address] [id number] [address] [place] [address], [place] [address] Jul, Hyperkalemia E87.5 [facility] [address] [id number] [address] [place] [address], [place] [address] Jun, [facility] [address] [id number] [address] [place] [address], [place] [address] Jun, [facility] [address] [id number] [address] [place] [address] Jun, [facility] [address] [id number] [address] [place] [address] Jun, [facility] [address] [id number] [address] [place] [address] May, [facility] [address] [id number] [address] [place] [address] May, [facility] [address] [id number] [address] [place] [address] May, [facility] [address] [id number] [address] [place] [id number] May, Hyperkalemia 276.7 [facility] [address] [id number] [address] [place] [id number] May, [facility] [address] [id number] [address] [place] [address], [place] [address] Apr, Hyperkalemia 276.7 [facility] [address] [id number] [address] [place] [address], [place] [address] Apr, [facility] [address] [id number] [address] [place] [id number] Apr, [facility] [address] [id number] [address] [place] [phone] Apr, [facility] [address] [id number] [address] [place] [id number] Apr, [facility] [address] [id number] [address] [place] [id number] 14 Apr, 2015 Hyperkalemia 276.7 [facility] [address] [id number] [address] [place] [id number] Apr, [facility] [address] [id number] [address] [place] [id number] 06 Apr, 2015 [facility] [address] [id number] [address] [place] [id number] Mar, [facility] [address] [id number] [address] [place] [id number] Mar, Hyperkalemia 276.[address] [facility] [address] [id number] [address] [place] [id number] Mar, Hyperkalemia 276.7 [facility] [address] [id number] [address] [place] [id number] Mar, [facility] [address] [facility] [id number] [address] [place] [id number] Mar, [facility] [address] [id number] [address] [place] [id number] Mar, [facility] [address] [id number] [address] [place] [id number] Mar, [facility] [address] [id number] [address] [place] [id number] Mar, Anserine bursitis 726.[address] [facility] [address] [id number] [address] [place] [id number] 02 Mar, 2015 Asthma 493.[address] [facility] [address] [id number] [address] [place] [address], [place] [address] Mar, [facility] [address] [id number] [address] [place] [address], [place] [address] February, [facility] [address] [id number] [address] [place] [address], [place] [address] February, [facility] [address] [id number] [address] [place] [address], [place] [address] February, [facility] [address] [id number] [address] [place] [address], [place] [address] February, [facility] [address] [id number] [address] [place] [address], [place] [address] February, [facility] [address] [id number] [address] [place] [address], [place] [address] February, [facility] [address] [id number] [address] [place] [address], [place] [address] February, [facility] [address] [id number] [address] [place] [address], [place] [address] February, [facility] [address] [id number] [address] [place] [address], [place] [address] February, [facility] [address] [id number] [address] [place] [address], [place] [address] Jan, [facility] [address] [id number] [address] [place] [address], [place] [address] Jan, [facility] [address] [id number] [address] [place] [address], [place] [address] Dec, [facility] [address] [id number] [address] [place] [address], [place] [address] Dec, [facility] [address] [id number] [address] [place] [address], [place] [address] Dec, [facility] [address] [id number] [address] [place] [address], [place] [address] Dec, [facility] [address] [id number] [facility] [place] [address] Dec, [facility] [address] [id number] [address] [place] [address], [place] [address] Dec, [facility] [address] [id number] [address] [place] [address], [place] [address] Dec, [facility] [address] [id number] [address] [place] [address], [place] [address] Dec, [facility] [address] [id number] [address] [place] [address], [place] [address] Dec, [facility] [address] [id number] [address] [place] [address], [place] [address] Dec, [facility] [address] [id number] [address] [place] [address], [place] [address] Dec, [facility] [address] [id number] [address] [place] [address], [place] [address] Dec, [facility] [address] [id number] [address] [place] [address], [place] [address] Dec, [facility] [address] [id number] [address] [place] [address], [place] [address] Dec, [facility] [address] [id number] [address] [place] [address], [place] [address] Nov, [facility] [address] [id number] [address] [place] [address], [place] [address] Nov, [facility] [address] [id number] [address] [place] [address], [place] [address] Nov, [facility] [address] [id number] [address] [place] [address], [place] [address] Nov, [facility] [address] [id number] [address] [place] [address], [place] [address] Nov, [facility] [address] [id number] [address] [place] [address] Nov, [facility] [address] [id number] [address] [place] [address], [place] [address] Oct, [facility] [address] [id number] [address] [place] [address], [place] [address] Oct, [facility] [address] [id number] [address] [place] [address], [place] [address] Oct, [facility] [address] [id number] [address] [place] [address], [place] [address] Oct, [facility] [address] [id number] [address] [place] [address], [place] [address] Oct, [facility] [address] [id number] [address] [place] [address], [place] [address] Oct, [facility] [address] [id number] [address] [place] [address], [place] [address] Sep, [facility] [address] [id number] [address] [place] [address], [place] [address] Sep, [facility] [address] [id number] [address] [place] [address], [place] [address] Sep, [facility] [address] [id number] [address] [place] [address], [place] [address] Sep, [facility] [address] [id number] [address] [place] [address], [place] [address] Sep, [facility] [address] [id number] [address] [place] [address], [place] [address] Sep, [facility] [address] [id number] [address] [place] [address], [place] [address] Aug, [facility] [address] [id number] [address] [place] [address], [place] [address] Aug, [facility] [address] [id number] [address] [place] [address], [place] [address] Aug, [facility] [address] [id number] [address] [place] [address], [place] [address] Aug, [facility] [address] [id number] [address] [place] [address], [place] [address] Aug, [facility] [address] [id number] [address] [place] [address], [place] [address] Aug, [facility] [address] [id number] [address] [place] [address], [place] [address] Jul, [facility] [address] [id number] [address] [place] [address], [place] [address] Jul, [facility] [address] [id number] [address] [place] [address], [place] [address] Jul, [facility] [address] [id number] [address] [place] [address], [place] [address] Jul, [facility] [address] [id number] [address] [place] [address], [place] [address] Jul, [facility] [address] [id number] [address] [place] [address], [place] [address] Jul, [facility] [address] [id number] [address] [place] [address], [place] [address] Jul, [facility] [address] [id number] [address] [place] [address], [place] [address] Jul, [facility] [address] [id number] [address] [place] [address], [place] [address] Jul, [facility] [address] [id number] [address] [place] [address], [place] [address] Jul, [facility] [address] [id number] [address] [place] [address], [place] [address] Jul, [facility] [address] [id number] [address] [place] [address], [place] [address] Jun, [facility] [address] [id number] [address] [place] [address] [address] Jun, [facility] [address] [id number] [address] [place] [address] Jun, [facility] [address] [id number] [address] [place] [address] Jun, [facility] [address] [id number] [address] [place] [address] Apr, [facility] [address] [id number] [address] [place] [address] Apr, [facility] [address] [id number] [address] [place] [address] Apr, [facility] [address] [id number] [address] [place] [address] Apr, [facility] [address] [id number] [address] [place] [address] Mar, [facility] [address] [id number] [address] [place] [address] Mar, [facility] [address] [id number] [address] [place] [address] Mar, [facility] [address] [id number] [address] [place] [address] Mar, [facility] [address] [id number] [address] [place] [address] Mar, [facility] [address] [id number] [address] [place] [address] Sep, [facility] [address] [id number] [address] [place] [address] Sep, [facility] [address] [id number] [address] [place] [address] Aug, IMMUNIZATIONS No Known Immunizations SOCIAL HISTORY Never Assessed REASON FOR VISIT Controlled Med Refill 07/19 PLAN OF CARE VITAL SIGNS MEDICATIONS Medication Instructions Dosage Frequency Start Date End Date Duration S radha Oxycodone HCl 5 mg Orally every 6 hrs 1 tablet as needed 6h Jun, 28 days Active RESULTS No Results PROCEDURES [...] V C oct 2016 Hospitalization History [place] 06/2018
--- OUTSIDE RECORDS SUMMARY | 2020-04-01 19:36 | XMS REPORT ---
Author Author Josephine WILLIS Organization [facility] Address [address] [place] [address] Care Team Providers Care Brand Lead Name Role Phone OLYA WILLIS Unavailable PROBLEMS Type Condition ICD9-CM Code ZEH43-PL Code Onset Dates Condition S tatus SNOMED Code Problem GERD (gastroesophageal reflux disease) K21.9 Active 557593910 Problem Type 2 diabetes mellitus with diabetic autonomic (poly)neuropathy E11.43 Active 079377327 Problem Gastroparesis K31.84 Active 041236 006 Problem Unsteady gait R26.81 Active 436535 08 Problem Pressure ulcer of unspecified heel, stage 4 L89.60 4 Active 664028678 Problem Chronic osteomyelitis of right foot with draining sinus M86.471 Active [id number] Problem Chronic skin ulcer with fat layer exposed L98.492 Active 21283019 Problem 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 Active 431626645 Problem Type 2 diabetes mellitus with foot ulcer E11.621 Active 33544031269740 Problem Chronic kidney disease N18.9 Active 823100607 Problem Paresthesias R20.2 Active 5848939 4 Problem Hypertension I10 Active 6804591 3 Problem Diabetic polyneuropathy associated with type 2 d iabetes mellitus E11.42 Active 35578967 Problem Diabetes mellitus E11.9 Active 73 215054 Problem Venous insufficiency I87.2 Active 15788425 ALLERGIES No Information ENCOUNTERS Encounter Location Date Diagnosis [facility] [address] [facility] [id number] [address] [place] [phone] Aug, [facility] [address] [facility] [id number] [address] [place] [phone] Jul, [facility] [address] [facility] [id number] [address] [place] [address] Jul, Chronic skin ulcer with fat layer exposed L98.492 [facility] [address] [facility] [id number] [address] [place] [phone] Jul, 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 [facility] [address] [id number] [address] [place] [phone] Jun, [facility] [address] [facility] [id number] [address] [place] [phone] Jun, [facility] [address] [id number] [address] [place] [phone] May, [facility] [address] [facility] [id number] [address] [place] [address] May, Chronic skin ulcer with fat layer exposed L98.492 [facility] [address] [facility] [id number] [address] [place] [phone] Apr, [facility] [address] [facility] [id number] [address] [place] [id number] Apr, Type 2 diabetes mellitus wit h foot ulcer E11.621 and Unsteady gait R26.81 [place] [address] [facility] [id number] [address] [place] [phone] Mar, Decubitus ulcer of right mariana l, stage 3 L89.613 [place] [address] [facility] [id number] [address] [place] [phone] Mar, [place] [address] [place] [id number] [address] [place] [address] Mar, Pressure ulcer of unspecifie d heel, stage 4 L89.604 and Type 2 diabetes mellitus with foot ulcer E11.621 [place] [address] [facility] [id number] [address] [place] [address] Mar, Encounter for medication mon itoring Z51.81 [facility] [address] [facility] [id number] [address] [place] [phone] Mar, Type 2 diabetes mellitus wit h foot ulcer E11.621 and Non-pressure chronic ulcer of right heel and midfoot with unspecified severity L97.419 [facility] [address] [id number] [address] [place] [phone] February, [facility] [address] [facility] [id number] [address] [place] [phone] Jan, Right ankle pain M25.571 [facility] [address] [facility] [id number] [address] [place] [address] Dec, Right ankle pain M25.571 [facility] [address] [id number] [address] [place] [phone] Dec, [facility] [address] [facility] [id number] [address] [place] [phone] Dec, [facility] [address] [facility] [id number] [address] [place] [phone] Dec, Right ankle pain M25.571 [facility] [address] [facility] [id number] [address] [place] [address] Dec, Chronic skin ulcer with fat layer exposed L98.492 ; Type 2 diabetes mellitus with diabetic autonomic (poly)neuropathy E11.43 and Hypertension I10 [facility] [address] [facility] [id number] [address] [place] [phone] Nov, [facility] [address] [facility] [id number] [address] [place] [phone] Nov, [facility] [address] [facility] [id number] [address] [place] [address] Nov, [facility] [address] [place] [id number] [address] [place] [address] Nov, Right ankle pain M25.571 and Chronic osteomyelitis of right foot with draining sinus M86.471 [facility] [address] [facility] [id number] [address] [place] [address] Oct, Right ankle pain M25.571 [facility] [address] [id number] [address] [place] [phone] Oct, [facility] [address] [id number] [address] [place] [phone] Sep, Diabetes mellitus E11.9 [facility] [address] [id number] [address] [place] [id number] Sep, Diabetic polyneuropathy asso ciated with type 2 diabetes mellitus E11.42 and Venous insufficiency I87.2 [facility] [address] [id number] [address] [place] [phone] 07 Sep, 2017 Right ankle pain M25.571 [facility] [address] [id number] [address] [place] [address] Aug, Right ankle pain M25.571 [facility] [address] [id number] [address] [place] [phone] Aug, Chronic osteomyelitis of rig foot with draining sinus M86.471 [facility] [address] [id number] [address] [place] [phone] Aug, [facility] [address] [id number] [address] [place] [address] Aug, [facility] [address] [id number] [address] [place] [id number] Aug, Chronic osteomyelitis of rig ht foot with draining sinus M86.471 [facility] [address] [id number] [address] [place] [id number] Jul, [facility] [address] [id number] [address] [place] [phone] Jul, [facility] [address] [id number] [address] [place] [id number] Jul, Chronic kidney disease N18.9 [facility] [address] [id number] [address] [place] [phone] Jul, Right ankle pain M25.571 [facility] [address] [id number] [address] [place] [phone] Jul, Non-healing ulcer of right f oot, unspecified ulcer stage L97.519 [facility] [address] [facility] [id number] [address] [place] [id number] Jul, Chronic skin ulcer with fat layer exposed L98.492 [facility] [address] [place] [id number] [address] [place] [phone] Jul, Deformity of right ankle nitza nt M21.961 [place] [address] [facility] [id number] [address] [place] [phone] Jun, [place] [address] [place] [id number] [place] [phone] Jun, Diabetes mellitus E11.9 ; Sk in ulcer of right foot with fat layer exposed L97.512 and Encounter for immunization Z23 [place] [address] [place] [id number] [address] [place] [address] Jun, Right ankle pain M25.571 [place] [address] [place] [id number] [address] [place] [address] May, Right ankle pain M25.571 [place] [address] [facility] [id number] [address] [place] [address] Apr, Right ankle pain M25.571 [place] [address] [facility] [id number] [address] [place] [phone] Mar, Right ankle pain M25.571 [place] [address] [facility] [id number] [address] [place] [phone] Mar, [place] [address] [place] [id number] [address] [place] [phone] February, Diabetes mellitus E11.9 and Diabetic polyneuropathy associated with type 2 diabetes mellitus E11.42 [place] [address] [place] [id number] [address] [place] [phone] February, Hyperkalemia E87.5 [facility] [address] [id number] [address] [place] [address] February, Right ankle pain M25.571 [facility] [address] [id number] [address] [place] [address] Jan, Right ankle pain M25.571 [facility] [address] [facility] [id number] [address] [place] [address] Dec, Right ankle pain M25.571 [facility] [address] [id number] [address] [place] [address] Dec, Right ankle pain M25.571 [facility] [address] [facility] [id number] [address] [place] [phone] Nov, [facility] [address] [facility] [id number] [address] [place] [phone] Nov, Diabetes mellitus E11.9 ; Hy pertension I10 ; Gastroparesis K31.84 and Type 2 diabetes mellitus with diabetic autonomic (poly)neuropathy E11.43 [facility] [address] [facility] [id number] [address] [place] [address] Nov, Right ankle pain M25.571 [facility] [address] [facility] [id number] [address] [place] [address] Oct, Right ankle pain M25.571 [facility] [address] [id number] [address] [place] [phone] Oct, [facility] [address] [facility] [id number] [address] [place] [phone] Oct, [facility] [address] [facility] [id number] [address] [place] [phone] Sep, [facility] [address] [facility] [id number] [address] [place] [phone] Sep, Hypertension I10 [facility] [address] [id number] [address] [place] [id number] Sep, Chronic kidney disease N18.9 ; Right ankle pain M25.571 and GERD (gastroesophageal reflux disease) K21.9 [facility] [address] [id number] [address] [place] [id number] Jul, [facility] [address] [facility] [id number] [address] [place] [phone] Jul, Encounter for immunization Z 23 ; Venous insufficiency I87.2 and Diabetic polyneuropathy associated with type 2 diabetes mellitus E11.42 [facility] [address] [facility] [id number] [address] [place] [phone] Jul, [facility] [address] [facility] [id number] [address] [place] [id number] Jul, Diabetes mellitus E11.9 [facility] [address] [facility] [id number] [address] [place] [phone] May, [facility] [address] [id number] [address] [place] [id number] Apr, [facility] [address] [id number] [address] [place] [address] Mar, Right ankle pain M25.571 [facility] [address] [id number] [address] [place] [id number] Mar, [facility] [address] [facility] [id number] [address] [place] [phone] February, Paresthesias R20.2 [facility] [address] [id number] [address] [place] [id number] February, [facility] [address] [facility] [id number] [address] [place] [phone] February, 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 [facility] [address] [facility] [id number] [address] [place] [phone] February, Diabetes mellitus E11.9 [facility] [address] [place] [id number] [address] [place] [phone] February, [facility] [address] [id number] [address] [place] [phone] February, Polyneuropathy in diabetes 3 57.2 and Paresthesias R20.2 [facility] [address] [id number] [address] [place] [phone] February, [facility] [address] [id number] [address] [place] [phone] February, [facility] [address] [id number] [address] [place] [phone] February, [facility] [address] [id number] [address] [place] [id number] February, Diabetes mellitus E11.9 [facility] [address] [id number] [address] [place] [phone] February, [facility] [address] [facility] [id number] [address] [place] [phone] February, Hyperkalemia E87.5 [facility] [address] [facility] [id number] [address] [place] [phone] Jan, Hypertension I10 [facility] [address] [facility] [id number] [address] [place] [phone] Jan, Insomnia G47.00 [facility] [address] [facility] [id number] [address] [place] [phone] Jan, [facility] [address] [id number] [address] [place] [id number] Jan, [facility] [address] [facility] [id number] [address] [place] [phone] Jan, [facility] [address] [facility] [id number] [address] [place] [phone] Dec, Right ankle pain M25.571 [facility] [address] [facility] [id number] [address] [place] [phone] Dec, GERD (gastroesophageal reflu x disease) K21.9 [facility] [address] [facility] [id number] [address] [place] [id number] Dec, Insomnia G47.00 [facility] [address] [facility] [id number] [address] [place] [phone] 18 Dec, 2015 Hypertension I10 and Hyperka lemia 276.7 [facility] [address] [facility] [id number] [address] [place] [phone] 10 Dec, 2015 Chronic kidney disease N18.9 [facility] [address] [facility] [id number] [address] [place] [phone] Dec, [facility] [address] [place] [id number] [address] [place] [phone] Dec, Hyperkalemia E87.5 [facility] [address] [facility] [id number] [address] [place] [address] Dec, Chronic kidney disease N18.9 and Right ankle pain M25.571 [facility] [address] [facility] [id number] [address] [place] [phone] 11 Nov, 2015 GERD (gastroesophageal reflu x disease) K21.9 [facility] [address] [facility] [id number] [address] [place] [address] Nov, Right ankle pain M25.571 [facility] [address] [facility] [id number] [address] [place] [phone] Nov, Diabetes mellitus E11.9 [facility] [address] [facility] [id number] [address] [place] [phone] Oct, [facility] [address] [facility] [id number] [address] [place] [phone] Oct, [facility] [address] [place] [id number] [address] [place] [phone] Oct, [facility] [address] [place] [id number] [address] [place] [phone] Oct, Hyperkalemia E87.5 [facility] [address] [id number] [address] [place] [id number] Oct, [facility] [address] [id number] [address] [place] [phone] Oct, Hyperkalemia E87.5 [facility] [address] [id number] [address] [place] [id number] Sep, [facility] [address] [id number] [address] [place] [phone] Sep, [facility] [address] [id number] [address] [place] [phone] Sep, [facility] [address] [id number] [address] [place] [id number] Sep, [facility] [address] [id number] [address] [place] [address] Sep, Right ankle pain M25.571 [facility] [address] [id number] [address] [place] [id number] Aug, Chronic kidney disease N18.9 [facility] [address] [id number] [address] [place] [phone] Aug, [facility] [address] [id number] [address] [place] [phone] Aug, Hyperkalemia E87.5 [facility] [address] [id number] [address] [place] [phone] Aug, [facility] [address] [id number] [address] [place] [phone] Jul, [facility] [address] [id number] [address] [place] [phone] Jul, [facility] [address] [id number] [address] [place] [phone] Jul, [facility] [address] [id number] [address] [place] [phone] Jul, Diabetes mellitus E11.9 ; En counter for immunization Z23 ; Hypertension I10 and Hyperkalemia E87.5 [facility] [address] [id number] [address] [place] [id number] Jul, [facility] [address] [id number] [address] [place] [id number] Jul, Hyperkalemia E87.5 [facility] [address] [id number] [address] [place] [id number] Jul, Hyperkalemia E87.5 [facility] [address] [id number] [address] [place] [phone] Jun, [facility] [address] [id number] [address] [place] [phone] Jun, [facility] [address] [id number] [address] [place] [phone] Jun, [facility] [address] [id number] [address] [place] [id number] Jun, [facility] [address] [id number] [address] [place] [phone] May, [facility] [address] [id number] [address] [place] [phone] May, [facility] [address] [id number] [address] [place] [id number] May, [facility] [address] [id number] [address] [place] [phone] May, Hyperkalemia 276.7 [facility] [address] [id number] [address] [place] [id number] May, [facility] [address] [id number] [address] [place] [phone] Apr, Hyperkalemia 276.7 [facility] [address] [id number] [facility] [place] [address] Apr, 2014 [facility] [address] [id number] [address] [place] [address], [place] [address] Apr, [facility] [address] [id number] [address] [place] [address], [place] [address] Apr, [facility] [address] [id number] [address] [place] [address], [place] [address] Apr, 2014 [facility] [address] [id number] [address] [place] [address], [place] [address] Apr, Hyperkalemia 276.7 [facility] [address] [id number] [address] [place] [address], [place] [address] Apr, [facility] [address] [id number] [address] [place] [address], [place] [address] Apr, [facility] [address] [id number] [address] [place] [address], [place] [address] Mar, [facility] [address] [id number] [address] [place] [address], [place] [address] Mar, Hyperkalemia 276.7 [facility] [address] [id number] [address] [place] [address], [place] [address] Mar, Hyperkalemia 276.7 [facility] [address] [id number] [address] [place] [address], [place] [address] Mar, [facility] [address] [id number] [address] [place] [address], [place] [address] Mar, [facility] [address] [id number] [address] [place] [address], [place] [address] Mar, [facility] [address] [id number] [address] [place] [address], [place] [address] Mar, [facility] [address] [id number] [address] [place] [address], [place] [address] Mar, [facility]serine bursitis 726.61 [facility] [address] [id number] [address] [place] [address], [place] [address] Mar, Asthma 493.90 and Hyperkalem ia 276.7 [facility] [place] [address] [id number] [address] [place] [address], [place] [address] Mar, [facility] [address] [id number] [address] [place] [address], [place] [address] February, [facility] [address] [id number] [address] [place] [address], [place] [address] February, [facility] [address] [id number] [address] [place] [address], [place] [address] February, [facility] [address] [id number] [address] [place] [address], [place] [address] February, [facility] [address] [id number] [address] [place] [address], [place] [address] February, [facility] [address] [id number] [address] [place] [address], [place] [address] February, [facility] [address] [id number] [address] [place] [address], [place] [address] February, [facility] [address] [id number] [address] [place] [address], [place] [address] February, [facility] [address] [id number] [address] [place] [address], [place] [address] February, [facility] [address] [id number] [address] [place] [address] Jan, [facility] [address] [id number] [address] [place] [address], [place] [address] Jan, [facility] [address] [id number] [address] [place] [address] Dec, [facility] [address] [id number] [address] [place] [address] Dec, [facility] [address] [id number] [facility] [place] [address] Dec, [facility] [address] [id number] [address] [place] [address], [place] [address] Dec, [facility] [address] [id number] [address] [place] [address], [place] [address] Dec, [facility] [address] [id number] [address] [place] [address], [place] [address] Dec, [facility] [address] [id number] [address] [place] [address], [place] [address] Dec, [facility] [address] [id number] [address] [place] [address], [place] [address] Dec, [facility] [address] [id number] [address] [place] [address], [place] [address] Dec, [facility] [address] [id number] [address] [place] [address], [place] [address] Dec, [facility] [address] [id number] [address] [place] [address], [place] [address] Dec, [facility] [address] [id number] [address] [place] [address], [place] [address] Dec, [facility] [address] [id number] [address] [place] [address], [place] [address] Dec, [facility] [address] [id number] [address] [place] [address], [place] [address] Dec, [facility] [address] [id number] [address] [place] [address], [place] [address] Nov, [facility] [address] [id number] [address] [place] [address], [place] [address] Nov, [facility] [address] [id number] [address] [place] [address], [place] [address] Nov, [facility] [address] [id number] [address] [place] [address], [place] [address] Nov, [facility] [address] [id number] [address] [place] [address], [place] [address] Nov, [facility] [address] [id number] [address] [place] [address], [place] [address] Nov, [facility] [address] [id number] [address] [place] [address], [place] [address] Oct, [facility] [address] [id number] [address] [place] [address], [place] [address] Oct, [facility] [address] [id number] [address] [place] [address], [place] [address] Oct, [facility] [address] [id number] [address] [place] [address], [place] [address] Oct, [facility] [address] [id number] [address] [place] [address], [place] [address] Oct, [facility] [address] [id number] [address] [place] [address], [place] [address] Oct, [facility] [address] [id number] [address] [place] [address], [place] [address] Sep, [facility] [address] [id number] [address] [place] [address], [place] [address] 30 Sep, 2014 [facility] [address] [id number] [address] [place] [address], [place] [address] Sep, [facility] [address] [id number] [address] [place] [address], [place] [address] Sep, [facility] [address] [id number] [address] [place] [address], [place] [address] Sep, [facility] [address] [id number] [address] [place] [address], [place] [address] Sep, [facility] [address] [id number] [address] [place] [address], [place] [address] Aug, [facility] [address] [id number] [address] [place] [address], [place] [address] Aug, [facility] [address] [id number] [address] [place] [address], [place] [address] Aug, [facility] [address] [id number] [address] [place] [address], [place] [address] Aug, [facility] [address] [id number] [address] [place] [address], [place] [address] Aug, [facility] [address] [id number] [address] [place] [address], [place] [address] Aug, [facility] [address] [id number] [address] [place] [address], [place] [address] Jul, [facility] [address] [id number] [address] [place] [address], [place] [address] Jul, [facility] [address] [id number] [address] [place] [address], [place] [address] Jul, [facility] [address] [id number] [address] [place] [address], [place] [address] Jul, [facility] [address] [id number] [address] [place] [address] Jul, [facility] [address] [id number] [address] [place] [address] Jul, [facility] [address] [id number] [address] [place] [address] Jul, [facility] [address] [id number] [address] [place] [address], [place] [address] Jul, [facility] [address] [id number] [address] [place] [address] Jul, [facility] [address] [id number] [address] [place] [address], [place] [address] Jul, [facility] [address] [id number] [address] [place] [address], [place] [address] Jul, [facility] [address] [id number] [address] [place] [address], [place] [address] Jun, [facility] [address] [id number] [address] [place] [address], [place] [address] Jun, [facility] [address] [id number] [address] [place] [address], [place] [address] Jun, [facility] [address] [id number] [address] [place] [address], [place] [address] Jun, [facility] [address] [id number] [address] [place] [address], [place] [address] Apr, [facility] [address] [id number] [address] [place] [address], [place] [address] Apr, [facility] [address] [id number] [address] [place] [address], [place] [address] Apr, [facility] [address] [id number] [address] [place] [address], [place] [address] Apr, [facility] [address] [id number] [address] [place] [address], [place] [address] Mar, [facility] [address] [id number] [address] [place] [address], [place] [address] Mar, [facility] [address] [id number] [address] [place] [address], [place] [address] Mar, [facility] [address] [id number] [address] [place] [address], [place] [address] Mar, [facility] [address] [id number] [address] [place] [address], [place] [address] Mar, [facility] [address] [id number] [address] [place] [address], [place] [address] Sep, [facility] [address] [id number] [address] [place] [address], [place] [address] Sep, [facility] [address] [facility] [id number] [address] [place] [address] Aug, IMMUNIZATIONS No Known Immunizations SOCIAL HISTORY Never Assessed REASON FOR VISIT Controlled Med Refill PLAN OF CARE VITAL SIGNS MEDICATIONS Medication Instructions Dosage Frequency Start Date End Date Duration S radha Oxycodone HCl 5 mg Orally every 6 hrs 1 tablet as needed 6h Jul, 28 days Active RESULTS No Results PROCEDURES [...] V C oct 2016 Hospitalization History Pneumonia [place] [facility] ver[facility] 06/2018
--- OUTSIDE RECORDS SUMMARY | 2020-04-01 19:37 | XMS REPORT ---
Author Author Josephine AHNCOCK Organization [facility] Address [address] [place] [address] Care Team Providers Care Psychiatric Clinician Name Role Phone KARISSA SERGIO Unavailable PROBLEMS Type Condition ICD9-CM Code [id number] Code Onset Dates Condition S tatus SNOMED Code Problem GERD (gastroesophageal reflux disease) K21.9 Active 444043252 Problem Type 2 diabetes mellitus with diabetic autonomic (poly)neuropathy E11.43 Active 539147883 Problem Gastroparesis K31.84 Active 020629 006 Problem Unsteady gait R26.81 Active 172735 08 Problem Pressure ulcer of unspecified heel, stage 4 L89.60 4 Active 530658017 Problem Chronic osteomyelitis of right foot with draining sinus M86.471 Active 928202746589726 Problem Chronic skin ulcer with fat layer exposed L98.492 Active 05274085 Problem 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 Active 104512179 Problem Type 2 diabetes mellitus with foot ulcer E11.621 Active 96021355804606 Problem Chronic kidney disease N18.9 Active 885961924 Problem Paresthesias R20.2 Active 2294291 4 Problem Hypertension I10 Active 6768538 3 Problem Diabetic polyneuropathy associated with type 2 d iabetes mellitus E11.42 Active 59248469 Problem Diabetes mellitus E11.9 Active 73 755708 Problem Venous insufficiency I87.2 Active 79099051 ALLERGIES Substance Reaction Event Type Date Status Sulfacetamide Sodium Unknown Drug Allergy May, Active Plavix caused bleeding Drug Allergy May, Active Neurontin Makes her disoriented Drug Allergy May, Active Lyrica dizziness Drug Allergy May, Active ENCOUNTERS Encounter Location Date Diagnosis [facility] [address] [facility] [id number] [address] [place] [address] Jun, [facility] [address] [facility] [id number] [address] [place] [address] May, [facility] [address] [facility] [id number] [address] [place] [address] May, Chronic skin ulcer with fat layer exposed L98.492 [facility] [address] [id number] [address] [place] [address] Apr, [facility] [address] [facility] [id number] [address] [place] [address] Apr, Type 2 diabetes mellitus wit h foot ulcer E11.621 and Unsteady gait R26.81 [place] [address] [facility] [id number] [address] [place] [address] Mar, Decubitus ulcer of right mariana l, stage 3 L89.613 [place] [address] [address] [facility] [id number] [address] [place] [address] Mar, [place] [address] [address] [place] [id number] [address] [place] [address] Mar, Pressure ulcer of unspecifie d heel, stage 4 L89.604 and Type 2 diabetes mellitus with foot ulcer E11.621 [place] [address] [address] [place] [id number] [address] [place] [address] Mar, Encounter for medication mon itoring Z51.81 [place] [address] [address] [facility] [id number] [address] [place] [address] Mar, Type 2 diabetes mellitus wit h foot ulcer E11.621 and Non-pressure chronic ulcer of right heel and midfoot with unspecified severity L97.419 [place] [address] [facility] [id number] [address] [place] [address] February, [place] [address] [address] [facility] [id number] [address] [place] [address] Jan, Right ankle pain M25.571 [place] [address] [address] [facility] [id number] [address] [place] [address] Dec, Right ankle pain M25.571 [place] [address] [address] [facility] [id number] [address] [place] [address] Dec, [facility] [address] [facility] [id number] [address] [place] [address] Dec, [facility] [address] [facility] [id number] [address] [place] [address] Dec, Right ankle pain M25.571 [facility] [address] [facility] [id number] [address] [place] [address] Dec, Chronic skin ulcer with fat layer exposed L98.492 ; Type 2 diabetes mellitus with diabetic autonomic (poly)neuropathy E11.43 and Hypertension I10 [facility] [address] [facility] [id number] [address] [place] [address] Nov, [facility] [address] [place] [id number] [address] [place] [address] Nov, [facility] [address] [place] [id number] [address] [place] [address] Nov, [facility] [address] [place] [id number] [address] [place] [address] Nov, Right ankle pain M25.571 and Chronic osteomyelitis of right foot with draining sinus M86.471 [facility] [address] [place] [id number] [address] [place] [address] Oct, Right ankle pain M25.571 [facility] [address] [facility] [id number] [address] [place] [address] Oct, [facility] [address] [facility] [id number] [address] [place] [address] Sep, Diabetes mellitus E11.9 [facility] [address] [place] [id number] [address] [place] [address] Sep, Diabetic polyneuropathy asso ciated with type 2 diabetes mellitus E11.42 and Venous insufficiency I87.2 [facility] [address] [place] [id number] [address] [place] [address] Sep, Right ankle pain M25.571 [facility] [address] [id number] [address] [place] [address] Aug, Right ankle pain M25.571 [facility] [address] [id number] [address] [place] [address] Aug, Chronic osteomyelitis of rig ht foot with draining sinus M86.471 [facility] [address] [id number] [address] [place] [address] Aug, [facility] [address] [id number] [address] [place] [address] Aug, [facility] [address] [id number] [address] [place] [address] Aug, Chronic osteomyelitis of rig ht foot with draining sinus M86.471 [facility] [address] [id number] [address] [place] [address] Jul, [facility] [address] [id number] [address] [place] [address] Jul, [facility] [address] [id number] [address] [place] [address] Jul, Chronic kidney disease N18.9 [facility] [address] [id number] [address] [place] [address] Jul, Right ankle pain M25.571 [facility] [address] [id number] [address] [place] [address] Jul, Non-healing ulcer of right f oot, unspecified ulcer stage L97.519 [facility] [address] [id number] [address] [place] [address] Jul, Chronic skin ulcer with fat layer exposed L98.492 [facility] [address] [id number] [address] [place] [address] Jul, Deformity of right ankle nitza nt M21.961 [facility] [address] [id number] [address] [place] [address] 27 Jun, 2017 [facility] [address] [id number] [address] [place] [address] 21 Jun, 2017 Diabetes mellitus E11.9 ; Sk in ulcer of right foot with fat layer exposed L97.512 and Encounter for immunization Z23 [facility] [address] [id number] [address] [place] [address] 18 Jun, 2017 Right ankle pain M25.571 [facility] [address] [id number] [address] [place] [address] May, Right ankle pain M25.571 [facility] [address] [facility] [id number] [address] [place] [address] Apr, Right ankle pain M25.571 [facility] [address] [facility] [id number] [address] [place] [address] Mar, Right ankle pain M25.571 [facility] [address] [id number] [address] [place] [address] Mar, [facility] [address] [facility] [id number] [address] [place] [address] February, Diabetes mellitus E11.9 and Diabetic polyneuropathy associated with type 2 diabetes mellitus E11.42 [facility] [address] [facility] [id number] [address] [place] [address] February, Hyperkalemia E87.5 [facility] [address] [id number] [address] [place] [address] February, Right ankle pain M25.571 [facility] [address] [facility] [id number] [address] [place] [address] Jan, Right ankle pain M25.571 [facility] [address] [facility] [id number] [address] [place] [address] Dec, Right ankle pain M25.571 [facility] [id number] [place] [address] Dec, Right ankle pain M25.571 [facility] [address] [address] Nov, [facility] [address] [place] [id number] [place] [address] Nov, Diabetes mellitus E11.9 ; Hy pertension I10 ; Gastroparesis K31.84 and Type 2 diabetes mellitus with diabetic autonomic (poly)neuropathy E11.43 [facility] [address] [place] [id number] [place] [address] Nov, Right ankle pain M25.571 [place] [address] [address] Oct, Right ankle pain M25.571 [place] [address] [address] Oct, [facility] [address] [address] Oct, [facility] [address] [address] Sep, [facility] [address] [address] Sep, Hypertension I10 [facility] [address] [address] Sep, Chronic kidney disease N18.9 ; Right ankle pain M25.571 and GERD (gastroesophageal reflux disease) K21.9 [facility] [address] [address] Jul, [facility] [address] [address] Jul, Encounter for immunization Z 23 ; Venous insufficiency I87.2 and Diabetic polyneuropathy associated with type 2 diabetes mellitus E11.42 [facility] [address] [place] [id number] [address] [place] [address] Jul, [facility] [address] [id number] [address] [place] [address] Jul, Diabetes mellitus E11.9 [facility] [address] [id number] [address] [place] [address] May, [facility] [address] [id number] [address] [place] [address] Apr, [facility] [address] [id number] [address] [place] [address] Mar, Right ankle pain M25.571 [facility] [address] [id number] [address] [place] [address] Mar, [facility] [address] [id number] [address] [place] [address] February, Paresthesias R20.2 [facility] [address] [id number] [address] [place] [address] February, [facility] [address] [id number] [address] [place] [address] February, 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 [facility] [address] [id number] [address] [place] [address] February, Diabetes mellitus E11.9 [facility] [address] [id number] [address] [place] [address] February, [facility] [address] [id number] [address] [place] [address] February, Polyneuropathy in diabetes 3 57.2 and Paresthesias R20.2 [facility] [address] [id number] [address] [place] [address] February, [facility] [address] [id number] [address] [place] [address] February, [facility] [address] [id number] [address] [place] [address] February, [facility] [address] [facility] [id number] [address] [place] [address] February, Diabetes mellitus E11.9 [facility] [address] [facility] [id number] [address] [place] [address] February, [facility] [address] [facility] [id number] [address] [place] [address] February, Hyperkalemia E87.5 [facility] [address] [facility] [id number] [address] [place] [address] Jan, Hypertension I10 [facility] [address] [facility] [id number] [address] [place] [address] Jan, Insomnia G47.00 [facility] [address] [facility] [id number] [address] [place] [address] Jan, [facility] [address] [facility] [id number] [address] [place] [address] Jan, [facility] [address] [facility] [id number] [address] [place] [address] Jan, [facility] [address] [place] [id number] [address] [place] [address] Dec, Right ankle pain M25.571 [facility] [address] [place] [id number] [address] [place] [address] Dec, GERD (gastroesophageal reflu x disease) K21.9 [facility] [address] [facility] [id number] [address] [place] [address] Dec, Insomnia G47.00 [facility] [address] [facility] [id number] [address] [place] [address] Dec, Hypertension I10 and Hyperka lemia 276.7 [facility] [address] [facility] [id number] [address] [place] [address] Dec, Chronic kidney disease N18.9 [facility] [address] [id number] [address] [place] [address] Dec, [facility] [address] [id number] [address] [place] [address] Dec, Hyperkalemia E87.5 [facility] [address] [facility] [id number] [address] [place] [address] Dec, Chronic kidney disease N18.9 and Right ankle pain M25.571 [facility] [address] [id number] [address] [place] [address] Nov, GERD (gastroesophageal reflu x disease) K21.9 [facility] [address] [id number] [address] [place] [address] Nov, Right ankle pain M25.571 [facility] [address] [facility] [id number] [address] [place] [address] Nov, Diabetes mellitus E11.9 [facility] [address] [id number] [address] [place] [address] Oct, [facility] [address] [id number] [address] [place] [address] Oct, [facility] [address] [facility] [id number] [address] [place] [address] Oct, [facility] [address] [facility] [id number] [address] [place] [address] Oct, Hyperkalemia E87.5 [facility] [address] [facility] [id number] [address] [place] [address] Oct, [facility] [address] [facility] [id number] [address] [place] [address] Oct, Hyperkalemia E87.5 [facility] [address] [facility] [id number] [address] [place] [address] Sep, [facility] [address] [facility] [id number] [address] [place] [address] 14 Sep, 2015 [facility] [address] [id number] [address] [place] [address] Sep, [facility] [address] [facility] [id number] [address] [place] [address] Sep, [facility] [address] [facility] [id number] [address] [place] [address] Sep, Right ankle pain M25.571 [facility] [address] [id number] [address] [place] [address] Aug, Chronic kidney disease N18.9 [facility] [address] [facility] [id number] [address] [place] [address] Aug, [facility] [address] [facility] [id number] [address] [place] [address] Aug, Hyperkalemia E87.5 [facility] [address] [facility] [id number] [address] [place] [address] Aug, [facility] [address] [facility] [id number] [address] [place] [address] Jul, [facility] [address] [facility] [id number] [address] [place] [address] Jul, [facility] [address] [facility] [id number] [address] [place] [address] Jul, [facility] [address] [facility] [id number] [address] [place] [address] Jul, Diabetes mellitus E11.9 ; En counter for immunization Z23 ; Hypertension I10 and Hyperkalemia E87.5 [facility] [address] [facility] [id number] [address] [place] [address] Jul, [facility] [address] [facility] [id number] [address] [place] [address] Jul, Hyperkalemia E87.5 [facility] [address] [id number] [address] [place] [address], [place] [address] Jul, Hyperkalemia E87.5 [facility] [address] [id number] [address] [place] [address], [place] [address] 28 Jun, 2015 [facility] [address] [id number] [address] [place] [address], [place] [address] Jun, [facility] [address] [id number] [address] [place] [address], [place] [address] Jun, [facility] [address] [id number] [address] [place] [address], [place] [address] Jun, [facility] [address] [id number] [address] [place] [address], [place] [address] May, [facility] [address] [id number] [address] [place] [address], [place] [address] May, [facility] [address] [id number] [address] [place] [address], [place] [address] May, [facility] [address] [id number] [address] [place] [address], [place] [address] May, Hyperkalemia 276.7 [facility] [address] [id number] [address] [place] [address], [place] [address] May, [facility] [address] [id number] [address] [place] [address], [place] [address] Apr, Hyperkalemia 276.7 [facility] [address] [id number] [address] [place] [address], [place] [address] Apr, [facility] [address] [id number] [address] [place] [address], [place] [address] Apr, [facility] [address] [id number] [address] [place] [address], [place] [address] Apr, [facility] [address] [id number] [address] [place] [address], [place] [address] Apr, [facility] [address] [id number] [address] [place] [address] 14 Apr, 2015 Hyperkalemia 276.7 [facility] [address] [id number] [address] [place] [address] Apr, [facility] [address] [id number] [address] [place] [address] Apr, [facility] [address] [id number] [address] [place] [id number] Mar, [facility] [address] [id number] [address] [place] [id number] Mar, Hyperkalemia 276.7 [facility] [address] [id number] [address] [place] [id number] Mar, Hyperkalemia 276.7 [facility] [address] [id number] [address] [place] [id number] Mar, [facility] [address] [id number] [address] [place] [phone] Mar, [facility] [address] [id number] [address] [place] [phone] Mar, [facility] [address] [id number] [address] [place] [id number] Mar, [facility] [address] [id number] [address] [place] [id number] Mar, Anserine bursitis 726.61 [facility] [address] [id number] [address] [place] [id number] Mar, Asthma 493.90 and Hyperkalem ia 276.7 [facility] [address] [id number] [address] [place] [phone] Mar, [facility] [address] [id number] [address] [place] [phone] February, [facility] [address] [id number] [address] [place] [id number] February, [facility] [address] [id number] [address] [place] [address], [place] [id number] February, [facility] [address] [id number] [address] [place] [address], [place] [phone] February, [facility] [address] [id number] [address] [place] [address], [place] [id number] February, [facility] [address] [id number] [address] [place] [address], [place] [id number] February, [facility] [address] [id number] [address] [place] [address], [place] [id number] February, [facility] [address] [id number] [address] [place] [address], [place] [id number] February, [facility] [address] [id number] [address] [place] [address], [place] [id number] February, [facility] [address] [id number] [address] [place] [address], [place] [id number] Jan, [facility] [address] [id number] [address] [place] [address], [place] [address] Jan, [facility] [address] [id number] [address] [place] [address], [place] [address] Dec, [facility] [address] [id number] [address] [place] [address], [place] [address] Dec, [facility] [address] [id number] [address] [place] [address], [place] [address] Dec, [facility] [address] [id number] [address] [place] [address], [place] [address] Dec, [facility] [address] [id number] [address] [place] [address], [place] [address] Dec, [facility] [address] [id number] [address] [place] [address], [place] [address] Dec, [facility] [address] [id number] [address] [place] [address], [place] [address] Dec, [facility] [address] [id number] [address] [place] [address], [place] [address] Dec, [facility] [address] [id number] [address] [place] [address], [place] [address] Dec, [facility] [address] [id number] [address] [place] [address], [place] [address] Dec, [facility] [address] [id number] [address] [place] [address], [place] [address] Dec, [facility] [address] [id number] [address] [place] [address], [place] [address] Dec, [facility] [address] [id number] [address] [place] [address], [place] [address] Dec, [facility] [address] [id number] [address] [place] [address], [place] [address] Dec, [facility] [address] [id number] [address] [place] [address], [place] [address] Nov, [facility] [address] [id number] [address] [place] [address], [place] [address] Nov, [facility] [address] [id number] [address] [place] [address], [place] [address] Nov, [facility] [address] [id number] [address] [place] [address], [place] [address] Nov, [facility] [address] [id number] [address] [place] [address], [place] [address] Nov, [facility] [address] [id number] [address] [place] [address], [place] [address] Nov, [facility] [address] [id number] [address] [place] [address], [place] [address] Oct, [facility] [address] [id number] [address] [place] [address], [place] [address] Oct, [facility] [address] [id number] [address] [place] [address], [place] [address] Oct, [facility] [address] [id number] [address] [place] [address], [place] [address] Oct, [facility] [address] [id number] [address] [place] [address], [place] [address] Oct, [facility] [address] [id number] [address] [place] [address], [place] [address] Oct, [facility] [address] [id number] [address] [place] [address], [place] [address] Sep, [facility] [address] [id number] [address] [place] [address], [place] [address] Sep, [facility] [address] [id number] [address] [place] [address], [place] [address] Sep, [facility] [address] [id number] [address] [place] [address], [place] [address] Sep, [facility] [address] [id number] [address] [place] [address], [place] [address] Sep, [facility] [address] [id number] [address] [place] [address], [place] [address] Sep, [facility] [address] [id number] [address] [place] [address], [place] [address] Aug, [facility] [address] [id number] [address] [place] [address], [place] [address] Aug, [facility] [address] [id number] [address] [place] [address], [place] [address] Aug, [facility] [address] [id number] [address] [place] [address], [place] [address] Aug, [facility] [address] [id number] [address] [place] [address], [place] [address] Aug, [facility] [address] [id number] [address] [place] [address], [place] [address] Aug, [facility] [address] [id number] [address] [place] [address], [place] [address] Jul, [facility] [address] [id number] [address] [place] [address], [place] [address] Jul, [facility] [address] [id number] [address] [place] [address], [place] [address] Jul, [facility] [address] [id number] [address] [place] [address], [place] [address] Jul, [facility] [address] [id number] [address] [place] [address], [place] [address] Jul, [facility] [address] [id number] [address] [place] [address], [place] [address] Jul, [facility] [address] [id number] [address] [place] [address], [place] [address] Jul, [facility] [address] [id number] [address] [place] [address], [place] [address] Jul, [facility] [address] [id number] [address] [place] [address], [place] [address] Jul, [facility] [address] [id number] [address] [place] [address], [place] [address] Jul, [facility] [address] [id number] [address] [place] [address], [place] [address] Jul, [facility] [address] [id number] [address] [place] [address], [place] [address] Jun, [facility] [address] [id number] [address] [place] [address], [place] [address] Jun, [facility] [address] [id number] [address] [place] [address], [place] [address] Jun, [facility] [address] [id number] [address] [place] [address], [place] [address] Jun, [facility] [address] [id number] [address] [place] [address] Apr, [facility] [address] [id number] [address] [place] [address] Apr, [facility] [address] [id number] [address] [place] [address] Apr, [facility] [address] [id number] [address] [place] [address] Apr, [facility] [address] [id number] [address] [place] [address] Mar, [facility] [address] [id number] [address] [place] [address] Mar, [facility] [address] [id number] [address] [place] [address] Mar, [facility] [address] [id number] [address] [place] [address] Mar, [facility] [address] [id number] [address] [place] [address] Mar, [facility] [address] [id number] [address] [place] [address] Sep, [facility] [address] [id number] [address] [place] [address] Sep, [facility] [address] [id number] [address] [place] [address] Aug, IMMUNIZATIONS No Known Immunizations SOCIAL HISTORY Never Assessed REASON FOR VISIT wound f/u Pt in for wound check YAYA Martinez PLAN OF CARE Activity Details Follow Up 4 Weeks Reason:heel wound VITAL SIGNS Height 62 in 2018-06-17 Weight 153.7 lbs 2018-06-17 Temperature 99.0 degrees Fahrenheit 2018-06-17 Heart Rate 72 bpm 2018-06-17 Respiratory Rate 18 2018-06-17 BMI 28.11 kg/m2 2018-06-17 Blood pressure systolic 122 mmHg 2018-06-17 Blood pressure diastolic 58 mmHg 2018-06-17 MEDICATIONS Medication Instructions Dosage Frequency Start Date End Date Duration S radha Calcium Acetate (Phos Binder) 667 MG Orally Three times a da y 2 tablets with meals 8h Active Furosemide 40 mg Orally Once a day 2 tablet 24h 30 Active Marie Contour Next Test - TEST BLOOD SUGAR THREE TIMES A DAY E11.9 30 Active Pantoprazole Sodium 40 MG TAKE ONE TABLET BY MOUTH ONCE DAILY 30 Active Cinnamon 500 mg Orally Once a day 4 capsules 24h Active Vitamin D 2000 UNIT Orally Once a day 5000 units 24h Active ProAir HFA 108 (90 Base) MCG/ACT Inhalation every 4 hrs 2 puffs as needed 4h Mar, Not-Taking Levemir FlexTouch 100 unit/mL (3 mL) Subcutaneous Once a day 10 Uni ts 24h Jul, Active BD Insulin Syringe MicroFine 28G X 1/2 use with insulin 8h Jul, Active Amlodipine Besylate 10 MG TAKE ONE TABLET BY MOUTH ONCE DAILY 30 Active Amitriptyline HCl 25 MG TAKE ONE TO THRE E TABLETS BY MOUTH AT BEDTIME NEEDED 30 Active Zofran ODT 4 MG Orally every 8 hrs 1 tablet 8h 10 Active Blood Glucose Test Test Strips subcutaneously 3 times a day chec k blood sugar 8h Nov, Active Wheelchair DX Non-healing right ankle fracture Jul, 2 014 Active Oxycodone HCl 5 mg Orally every 6 hrs 1 tablet as needed 6h Apr, 28 days Active Stool Softener Active MiraLax - Orally Once a day take 17 g mixed with 8 oz. water or juice by Oral route 1 time per day 24h Aug, Active NovoFine 32 gauge USE WITH INSULIN PENS THREE TIMES A DAY 30 Active Atenolol 25 MG TAKE TWO TABLETS BY MOUTH ONCE DAILY 30 Active Reglan 10 mg Orally 4 times a day, ac and hs 1 Nov, 7 Not-Taking Silvadene 1 % Externally Once a day 1 application to affected area 24h Apr, Active Glucometer ... subcutaneously one time Accu-check Nov, Active Diabetic Shoes wear with ambulation Sep, Not-Taking Diabetic Shoes wear with ambulation Sep, Active Levemir FlexTouch 100 UNIT/ML INJECT 10 UNITS SUBCUTANEOUSLY ONCE DAILY 140 Not-Taking RESULTS No Results PROCEDURES No Known procedures [...]
--- OUTSIDE RECORDS SUMMARY | 2020-04-01 19:41 | XMS REPORT ---
Author Author Josephine Veras Doctor Organization [facility] Address Unknown Phone Unavailable Care Team Providers Care Respiratory Care Technician Name Role Phone Migration, Doctor Unavailable Unavailable PROBLEMS Type Condition ICD9-CM Code RUT86-HP Code Onset Dates Condition S tatus SNOMED Code Problem Diabetes mellitus E11.9 Active 73 103596 Problem Hypertension I10 Active 3473978 3 Problem Paresthesias R20.2 Active 8344952 4 Problem Chronic kidney disease N18.9 Active 543777689 Problem Venous insufficiency I87.2 Active 53536570 Problem Diabetic polyneuropathy associated with type 2 d iabetes mellitus E11.42 Active 90165951 Problem Type 2 diabetes mellitus with diabetic autonomic (poly)neuropathy E11.43 Active 506880325 Problem Chronic skin ulcer with fat layer exposed L98.492 Active 66709123 Problem Chronic osteomyelitis of right foot with draining sinus M86.471 Active 391401164691007 Problem PAD (peripheral artery disease) I73.9 Active 783002006 Problem Gastroparesis K31.84 Active 035053 006 Problem Seasonal allergic rhinitis due to other allergic trigger J30.89 Active 615248097 Problem GERD (gastroesophageal reflux disease) K21.9 Active 891083816 Problem Type 2 diabetes mellitus with foot ulcer E11.621 Active 56684881168616 Problem 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 Active 041153917 Problem Pressure ulcer of unspecified heel, stage 4 L89.60 4 Active 319982873 Problem Unsteady gait R26.81 Active 305649 08 ALLERGIES No Information ENCOUNTERS Encounter Location Date Diagnosis [facility] [address] [facility] [id number] [address] [place] [address] Jul, [facility] [address] [facility] [id number] [address] [place] [address] Jun, Chronic skin ulcer with fat layer exposed L98.492 [facility] [address] [facility] [id number] [address] [place] [address] Jun, [facility] [address] [id number] [address] [place] [address] Jun, Chronic skin ulcer with fat layer exposed L98.492 [facility] [address] [id number] [address] [place] [address] May, Chronic skin ulcer with fat layer exposed L98.492 [facility] [address] [id number] [address] [place] [address] May, [facility] [address] [id number] [address] [place] [address] May, Chronic skin ulcer with fat layer exposed L98.492 [facility] [address] [facility] [id number] [address] [place] [address] Apr, Chronic skin ulcer with fat layer exposed L98.492 [facility] [address] [facility] [id number] [address] [place] [address] Apr, [address] [address] Apr, [facility] [address] [facility] [id number] [address] [place] [address] Apr, Chronic skin ulcer with fat layer exposed L98.492 [facility] [address] [facility] [id number] [address] [place] [address] Apr, Foot callus L84 and Nonheali ng wound of heel S91.309A [facility] [address] [facility] [id number] [address] [place] [address] Apr, [address] [address] Mar, [facility] [address] [facility] [id number] [address] [place] [address] Mar, Diabetes mellitus E11.9 and Chronic skin ulcer with fat layer exposed L98.492 [facility] [address] [facility] [id number] [address] [place] [address] Mar, Chronic skin ulcer with fat layer exposed L98.492 [facility] [address] [id number] [address] [place] [address] Mar, [facility] [address] [id number] [address] [place] [address] February, Chronic skin ulcer with fat layer exposed L98.492 and Encounter for medication monitoring Z51.81 [facility] [address] [id number] [address] [place] [address] February, [facility] [address] [id number] [address] [place] [address] February, Encounter for medication mon itoring Z51.81 [facility] [address] [id number] [address] [place] [address] February, [facility] [address] [id number] [address] [place] [address] February, [facility] [address] [id number] [address] [place] [address] February, [facility] [address] [id number] [address] [place] [address] Jan, Chronic skin ulcer with fat layer exposed L98.492 [facility] [address] [facility] [id number] [address] [place] [address] Jan, [facility] [address] [id number] [address] [place] [address] Dec, [facility] [address] [id number] [address] [place] [address] Dec, Diabetic polyneuropathy asso ciated with type 2 diabetes mellitus E11.42 and PAD (peripheral artery disease) I73.9 [facility] [address] [id number] [address] [place] [address] Dec, Chronic skin ulcer with fat layer exposed L98.492 [facility] [address] [id number] [address] [place] [address] Dec, [facility] [address] [id number] [address] [place] [address] Nov, [facility] [address] [id number] [address] [place] [address] Nov, Skin ulcer of right foot wit h fat layer exposed L97.512 [facility] [address] [id number] [address] [place] [address] Oct, [facility] [address] [id number] [address] [place] [address] Oct, Skin ulcer of right foot wit h fat layer exposed L97.512 [facility] [address] [id number] [address] [place] [address] Sep, Diabetes mellitus E11.9 [facility] [address] [id number] [address] [place] [address] Sep, [facility] [address] [id number] [address] [place] [address] Sep, [facility] [address] [id number] [address] [place] [address] Sep, [facility] [address] [facility] [id number] [address] [place] [address] 14 Sep, 2018 Type 2 diabetes mellitus wit h foot ulcer E11.621 and Skin ulcer of right foot with fat layer exposed L97.512 [facility] [address] [id number] [address] [place] [address] Sep, Diabetes mellitus E11.9 [facility] [address] [id number] [address] [place] [address] Sep, [facility] [address] [facility] [id number] [address] [place] [address] Aug, [facility] [address] [facility] [id number] [address] [place] [address] Aug, [facility] [address] [id number] [address] [place] [address] Aug, 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 [facility] [address] [id number] [address] [place] [address] Aug, [facility] [address] [id number] [address] [place] [address] Aug, [facility] [address] [id number] [address] [place] [address] Aug, Bronchitis J40 [facility] [address] [id number] [address] [place] [address] Aug, [facility] [address] [id number] [address] [place] [address] Jul, [facility] [address] [id number] [address] [place] [address] Jul, Chronic skin ulcer with fat layer exposed L98.492 [facility] [address] [id number] [address] [place] [address] Jul, 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 [facility] [address] [id number] [address] [place] [address] Jun, [facility] [address] [id number] [address] [place] [address] Jun, [facility] [address] [id number] [address] [place] [address] May, [facility] [address] [id number] [address] [place] [address] May, Chronic skin ulcer with fat layer exposed L98.492 [facility] [address] [id number] [address] [place] [address] Apr, [facility] [address] [id number] [address] [place] [address] Apr, Type 2 diabetes mellitus wit h foot ulcer E11.621 and Unsteady gait R26.81 [place] [address] [facility] [id number] [address] [place] [address] Mar, Decubitus ulcer of right mariana l, stage 3 L89.613 [facility] [address] [facility] [id number] [address] [place] [address] Mar, [place] [address] [facility] [id number] [address] [place] [address] Mar, Pressure ulcer of unspecifie d heel, stage 4 L89.604 and Type 2 diabetes mellitus with foot ulcer E11.621 [place] [address] [place] [id number] [address] [place] [address] Mar, Encounter for medication mon itoring Z51.81 [place] [address] [place] [id number] [address] [place] [address] Mar, Type 2 diabetes mellitus wit h foot ulcer E11.621 and Non-pressure chronic ulcer of right heel and midfoot with unspecified severity L97.419 [place] [address] [place] [id number] [address] [place] [address] February, [place] [address] [place] [id number] [address] [place] [address] Jan, Right ankle pain M25.571 [place] [address] [facility] [id number] [address] [place] [address] Dec, Right ankle pain M25.571 [place] [address] [facility] [id number] [address] [place] [address] Dec, [place] [address] [place] [id number] [address] [place] [address] Dec, [facility] [address] [facility] [id number] [address] [place] [address] Dec, Right ankle pain M25.571 [place] [address] [facility] [id number] [address] [place] [address] Dec, Chronic skin ulcer with fat layer exposed L98.492 ; Type 2 diabetes mellitus with diabetic autonomic (poly)neuropathy E11.43 and Hypertension I10 [facility] [address] [id number] [address] [place] [address] Nov, [facility] [address] [facility] [id number] [address] [place] [address] Nov, [facility] [address] [facility] [id number] [address] [place] [address] Nov, [facility] [address] [facility] [id number] [address] [place] [address] Nov, Right ankle pain M25.571 and Chronic osteomyelitis of right foot with draining sinus M86.471 [place] [address] [facility] [id number] [address] [place] [address] Oct, Right ankle pain M25.571 [facility] [address] [facility] [id number] [address] [place] [address] Oct, [facility] [address] [facility] [id number] [address] [place] [address] Sep, Diabetes mellitus E11.9 [facility] [address] [facility] [id number] [address] [place] [address] Sep, Diabetic polyneuropathy asso ciated with type 2 diabetes mellitus E11.42 and Venous insufficiency I87.2 [facility] [address] [facility] [id number] [address] [place] [address] Sep, Right ankle pain M25.571 [facility] [address] [facility] [id number] [address] [place] [address] Aug, Right ankle pain M25.571 [facility] [address] [facility] [id number] [address] [place] [address] Aug, Chronic osteomyelitis of rig ht foot with draining sinus M86.471 [place] [address] [id number] [address] [place] [address] Aug, [facility] [address] [id number] [address] [place] [address] Aug, [facility] [address] [id number] [address] [place] [address] Aug, Chronic osteomyelitis of rig ht foot with draining sinus M86.471 [facility] [address] [id number] [address] [place] [address] Jul, [facility] [address] [id number] [address] [place] [address] Jul, [facility] [address] [facility] [id number] [address] [place] [address] Jul, Chronic kidney disease N18.9 [facility] [address] [facility] [id number] [address] [place] [address] Jul, Right ankle pain M25.571 [facility] [address] [id number] [address] [place] [address] Jul, Non-healing ulcer of right f oot, unspecified ulcer stage L97.519 [facility] [address] [facility] [id number] [address] [place] [address] Jul, Chronic skin ulcer with fat layer exposed L98.492 [facility] [address] [facility] [id number] [address] [place] [address] Jul, Deformity of right ankle nitza nt M21.961 [facility] [address] [facility] [id number] [address] [place] [address] Jun, [facility] [address] [facility] [id number] [address] [place] [address] Jun, Diabetes mellitus E11.9 ; Sk in ulcer of right foot with fat layer exposed L97.512 and Encounter for immunization Z23 [facility] [address] [facility] [id number] [address] [place] [address] Jun, Right ankle pain M25.571 [facility] [address] [id number] [address] [place] [address] May, Right ankle pain M25.571 [facility] [address] [facility] [id number] [address] [place] [address] Apr, Right ankle pain M25.571 [facility] [address] [facility] [id number] [address] [place] [address] Mar, Right ankle pain M25.571 [facility] [address] [id number] [address] [place] [address] Mar, [facility] [address] [facility] [id number] [address] [place] [address] February, Diabetes mellitus E11.9 and Diabetic polyneuropathy associated with type 2 diabetes mellitus E11.42 [facility] [address] [facility] [id number] [address] [place] [address] February, Hyperkalemia E87.5 [facility] [address] [facility] [id number] [address] [place] [address] February, Right ankle pain M25.571 [facility] [address] [facility] [id number] [address] [place] [address] Jan, Right ankle pain M25.571 [facility] [address] [facility] [id number] [address] [place] [address] Dec, Right ankle pain M25.571 [facility] [address] [facility] [id number] [address] [place] [address] Dec, Right ankle pain M25.571 [facility] [address] [facility] [id number] [address] [place] [address] Nov, [facility] [address] [facility] [id number] [address] [place] [address] Nov, Diabetes mellitus E11.9 ; Hy pertension I10 ; Gastroparesis K31.84 and Type 2 diabetes mellitus with diabetic autonomic (poly)neuropathy E11.43 [facility] [address] [id number] [address] [place] [address] Nov, Right ankle pain M25.571 [facility] [address] [facility] [id number] [address] [place] [address] Oct, Right ankle pain M25.571 [facility] [address] [facility] [id number] [address] [place] [address] Oct, [facility] [address] [facility] [id number] [address] [place] [address] Oct, [facility] [address] [facility] [id number] [address] [place] [address] Sep, [place] [address] [place] [id number] [place] [address] Sep, Hypertension I10 [facility] [address] [facility] [id number] [address] [place] [address] Sep, Chronic kidney disease N18.9 ; Right ankle pain M25.571 and GERD (gastroesophageal reflux disease) K21.9 [facility] [address] [place] [id number] [address] [place] [address] Jul, [facility] [address] [place] [id number] [address] [place] [address] Jul, Encounter for immunization Z 23 ; Venous insufficiency I87.2 and Diabetic polyneuropathy associated with type 2 diabetes mellitus E11.42 [facility] [address] [facility] [id number] [address] [place] [address] Jul, [facility] [address] [place] [id number] [address] [place] [address] Jul, Diabetes mellitus E11.9 [facility] [address] [place] [id number] [address] [place] [address] May, [facility] [address] [place] [id number] [address] [place] [address] Apr, [facility] [address] [id number] [address] [place] [address] Mar, Right ankle pain M25.571 [facility] [address] [id number] [address] [place] [address] Mar, [facility] [address] [id number] [address] [place] [address] February, Paresthesias R20.2 [facility] [address] [id number] [address] [place] [address] February, [facility] [address] [id number] [address] [place] [address] February, 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 [facility] [address] [id number] [address] [place] [address] February, Diabetes mellitus E11.9 [facility] [address] [id number] [address] [place] [address] February, [facility] [address] [id number] [address] [place] [address] February, Polyneuropathy in diabetes 3 57.2 and Paresthesias R20.2 [facility] [address] [id number] [address] [place] [address] February, [facility] [address] [id number] [address] [place] [address] February, [facility] [address] [id number] [address] [place] [address] February, [facility] [address] [id number] [address] [place] [address] February, Diabetes mellitus E11.9 [facility] [address] [id number] [address] [place] [address] February, [facility] [address] [id number] [address] [place] [address] February, Hyperkalemia E87.5 [facility] [address] [id number] [address] [place] [address] Jan, Hypertension I10 [facility] [address] [facility] [id number] [address] [place] [address] Jan, Insomnia G47.00 [facility] [address] [facility] [id number] [address] [place] [address] Jan, [facility] [address] [id number] [address] [place] [address] Jan, [facility] [address] [facility] [id number] [address] [place] [address] Jan, [facility] [address] [facility] [id number] [address] [place] [address] Dec, Right ankle pain M25.571 [facility] [address] [facility] [id number] [address] [place] [address] Dec, GERD (gastroesophageal reflu x disease) K21.9 [facility] [address] [facility] [id number] [address] [place] [id number] Dec, Insomnia G47.00 [facility] [address] [facility] [id number] [address] [place] [id number] Dec, Hypertension I10 and Hyperka lemia 276.7 [facility] [address] [facility] [id number] [address] [place] [id number] Dec, Chronic kidney disease N18.9 [facility] [address] [facility] [id number] [address] [place] [id number] Dec, [facility] [address] [facility] [id number] [address] [place] [id number] Dec, Hyperkalemia E87.5 [facility] [address] [facility] [id number] [address] [place] [id number] Dec, Chronic kidney disease N18.9 and Right ankle pain M25.571 [facility] [address] [id number] [address] [place] [id number] 11 Nov, 2015 GERD (gastroesophageal reflu x disease) K21.9 [facility] [address] [id number] [address] [place] [id number] Nov, Right ankle pain M25.571 [facility] [address] [id number] [address] [place] [id number] Nov, Diabetes mellitus E11.9 [facility] [address] [id number] [address] [place] [address] Oct, [facility] [address] [id number] [address] [place] [address] Oct, [facility] [address] [id number] [address] [place] [address] Oct, [facility] [address] [id number] [address] [place] [address] Oct, Hyperkalemia E87.5 [facility] [address] [facility] [id number] [address] [place] [address] Oct, [facility] [address] [id number] [address] [place] [address] Oct, Hyperkalemia E87.5 [facility] [address] [id number] [address] [place] [address] Sep, [facility] [address] [id number] [address] [place] [address] Sep, [facility] [address] [facility] [id number] [address] [place] [address] Sep, [facility] [address] [facility] [id number] [address] [place] [address] Sep, [facility] [address] [facility] [id number] [address] [place] [address] Sep, Right ankle pain M25.571 [facility] [address] [id number] [address] [place] [address] Aug, Chronic kidney disease N18.9 [facility] [address] [id number] [address] [place] [address] Aug, [facility] [address] [id number] [address] [place] [address] Aug, Hyperkalemia E87.5 [facility] [address] [id number] [address] [place] [address] Aug, [facility] [address] [id number] [address] [place] [address] Jul, [facility] [address] [id number] [address] [place] [id number] Jul, [facility] [address] [facility] [id number] [address] [place] [address] Jul, [facility] [address] [facility] [id number] [address] [place] [address] Jul, Diabetes mellitus E11.9 ; En counter for immunization Z23 ; Hypertension I10 and Hyperkalemia E87.5 [facility] [address] [id number] [address] [place] [address] Jul, [facility] [address] [facility] [id number] [address] [place] [address] Jul, Hyperkalemia E87.5 [facility] [address] [facility] [id number] [address] [place] [address] Jul, Hyperkalemia E87.5 [facility] [address] [id number] [address] [place] [address] Jun, [facility] [address] [facility] [id number] [address] [place] [address] Jun, [facility] [address] [id number] [address] [place] [id number] 15 Jun, 2015 [facility] [address] [id number] [address] [place] [address], [place] [address] Jun, [facility] [address] [id number] [address] [place] [address], [place] [address] May, [facility] [address] [id number] [address] [place] [address], [place] [address] May, [facility] [address] [id number] [address] [place] [address], [place] [address] May, [facility] [address] [id number] [address] [place] [address], [place] [address] May, Hyperkalemia 276.7 [facility] [address] [id number] [address] [place] [address], [place] [address] May, [facility] [address] [id number] [address] [place] [address], [place] [address] Apr, Hyperkalemia 276.7 [facility] [address] [id number] [address] [place] [address], [place] [address] Apr, [facility] [address] [id number] [address] [place] [address], [place] [address] Apr, [facility] [address] [id number] [address] [place] [address] Apr, [facility] [address] [id number] [address] [place] [address] Apr, [facility] [address] [id number] [address] [place] [address], [place] [address] Apr, Hyperkalemia 276.7 [facility] [address] [id number] [address] [place] [address], [place] [address] Apr, [facility] [address] [id number] [address] [place] [address], [place] [address] Apr, [facility] [address] [id number] [address] [place] [address] Mar, [facility] [address] [id number] [address] [place] [id number] Mar, Hyperkalemia 276.7 [facility] [address] [id number] [address] [place] [address] Mar, Hyperkalemia 276.7 [facility] [address] [id number] [address] [place] [address] Mar, [facility] [address] [id number] [address] [place] [address] Mar, [facility] [address] [id number] [address] [place] [address] Mar, [facility] [address] [id number] [address] [place] [id number] Mar, [facility] [address] [id number] [address] [place] [address] Mar, Anserine bursitis 726.61 [facility] [address] [id number] [address] [place] [address] Mar, Asthma 493.90 and Hyperkalem ia 276.7 [facility] [address] [id number] [address] [place] [address] Mar, [facility] [address] [id number] [address] [place] [id number] February, [facility] [address] [id number] [address] [place] [address] February, [facility] [address] [id number] [address] [place] [id number] February, [facility] [address] [id number] [address] [place] [address] February, [facility] [address] [id number] [address] [place] [id number] February, [facility] [address] [id number] [address] [place] [address], [place] [address] February, [facility] [address] [id number] [address] [place] [address], [place] [address] February, [facility] [address] [id number] [address] [place] [address], [place] [address] February, [facility] [address] [id number] [address] [place] [address], [place] [address] February, [facility] [address] [id number] [address] [place] [address], [place] [address] Jan, [facility] [address] [id number] [address] [place] [address], [place] [address] Jan, [facility] [address] [id number] [address] [place] [address], [place] [address] Dec, [facility] [address] [id number] [address] [place] [address], [place] [address] Dec, [facility] [address] [id number] [address] [place] [address], [place] [address] Dec, [facility] [address] [id number] [address] [place] [address], [place] [address] Dec, [facility] [address] [id number] [address] [place] [address], [place] [address] Dec, [facility] [address] [id number] [address] [place] [address], [place] [address] Dec, [facility] [address] [id number] [address] [place] [address], [place] [address] Dec, [facility] [address] [id number] [address] [place] [address], [place] [address] Dec, [facility] [address] [id number] [address] [place] [address], [place] [address] Dec, [facility] [address] [id number] [address] [place] [address], [place] [address] Dec, [facility] [address] [id number] [address] [place] [address], [place] [address] Dec, [facility] [address] [id number] [address] [place] [address], [place] [address] Dec, [facility] [address] [id number] [address] [place] [address], [place] [address] Dec, [facility] [address] [id number] [address] [place] [address], [place] [address] Dec, [facility] [address] [id number] [address] [place] [address], [place] [address] Nov, [facility] [address] [id number] [address] [place] [address], [place] [address] Nov, [facility] [address] [id number] [address] [place] [address], [place] [address] Nov, [facility] [address] [id number] [address] [place] [address], [place] [address] Nov, [facility] [address] [id number] [address] [place] [address], [place] [address] Nov, [facility] [address] [id number] [address] [place] [address], [place] [address] Nov, [facility] [address] [id number] [address] [place] [address], [place] [address] Oct, [facility] [address] [id number] [address] [place] [address], [place] [address] Oct, [facility] [address] [id number] [address] [place] [address], [place] [address] Oct, [facility] [address] [id number] [address] [place] [address], [place] [address] Oct, [facility] [address] [id number] [address] [place] [id number] Oct, [facility] [address] [id number] [address] [place] [address], [place] [address] Oct, [facility] [address] [id number] [address] [place] [address], [place] [address] Sep, [facility] [address] [id number] [address] [place] [address], [place] [address] Sep, [facility] [address] [id number] [address] [place] [address], [place] [address] Sep, [facility] [address] [id number] [address] [place] [address], [place] [address] Sep, [facility] [address] [id number] [address] [place] [address], [place] [address] Sep, [facility] [address] [id number] [address] [place] [address], [place] [address] Sep, [facility] [address] [id number] [address] [place] [address], [place] [address] Aug, [facility] [address] [id number] [address] [place] [address], [place] [address] Aug, [facility] [address] [id number] [address] [place] [address], [place] [address] Aug, [facility] [address] [id number] [address] [place] [address], [place] [address] Aug, [facility] [address] [id number] [address] [place] [address], [place] [address] Aug, [facility] [address] [id number] [address] [place] [address], [place] [address] Aug, [facility] [address] [id number] [address] [place] [address], [place] [address] Jul, [facility] [address] [id number] [address] [place] [address], [place] [address] Jul, [facility] [address] [id number] [address] [place] [address], [place] [address] Jul, [facility] [address] [id number] [address] [place] [address], [place] [address] Jul, [facility] [address] [id number] [address] [place] [address], [place] [address] Jul, [facility] [address] [id number] [address] [place] [address], [place] [address] Jul, [facility] [address] [id number] [address] [place] [address], [place] [address] Jul, [facility] [address] [id number] [address] [place] [address], [place] [address] Jul, [facility] [address] [id number] [address] [place] [address], [place] [address] Jul, [facility] [address] [id number] [address] [place] [address], [place] [address] Jul, [facility] [address] [id number] [address] [place] [address], [place] [address] Jul, [facility] [address] [id number] [address] [place] [address], [place] [address] Jun, [facility] [address] [id number] [address] [place] [address], [place] [address] Jun, [facility] [address] [id number] [address] [place] [address], [place] [address] Jun, [facility] [address] [id number] [address] [place] [address], [place] [address] Jun, [facility] [address] [id number] [address] [place] [address], [place] [address] Apr, [facility] [address] [id number] [address] [place] [address], [place] [address] Apr, [facility] [address] [id number] [address] [place] [address], [place] [address] Apr, [facility] [address] [id number] [address] [place] [address] Apr, [facility] [address] [id number] [address] [place] [address] Mar, [facility] [address] [id number] [address] [place] [address] Mar, [facility] [address] [id number] [address] [place] [address] Mar, [facility] [address] [id number] [address] [place] [address] Mar, [facility] [address] [id number] [address] [place] [address] Mar, [facility] [address] [id number] [address] [place] [address] Sep, [facility] [address] [id number] [address] [place] [address] Sep, [facility] [address] [id number] [address] [place] [address] Aug, IMMUNIZATIONS No Known Immunizations SOCIAL HISTORY [...] V C oct 2016 Hospitalization History Pneumonia [place] [facility] 06/2018 Hospitalization History fistula in left arm 07/2018
--- OUTSIDE RECORDS SUMMARY | 2020-04-01 19:42 | XMS REPORT ---
Author Author Josephine WILLIS Organization [facility] Address [address] [place] [address] Care Team Providers Care Mechanic Foreman Name Role Phone OLYA WILLIS Unavailable PROBLEMS Type Condition ICD9-CM Code OMP33-OM Code Onset Dates Condition S tatus SNOMED Code Problem Diabetes mellitus E11.9 Active 73 039996 Problem Hypertension I10 Active 0947785 3 Problem Paresthesias R20.2 Active 5803757 4 Problem Chronic kidney disease N18.9 Active 206732735 Problem Venous insufficiency I87.2 Active 17311717 Problem Diabetic polyneuropathy associated with type 2 d iabetes mellitus E11.42 Active 31486503 Problem Type 2 diabetes mellitus with diabetic autonomic (poly)neuropathy E11.43 Active 098453396 Problem Chronic skin ulcer with fat layer exposed L98.492 Active 91876647 Problem Chronic osteomyelitis of right foot with draining sinus M86.471 Active [id number] Problem PAD (peripheral artery disease) I73.9 Active 802405631 Problem Gastroparesis K31.84 Active 992997 006 Problem Seasonal allergic rhinitis due to other allergic trigger J30.89 Active 511171745 Problem GERD (gastroesophageal reflux disease) K21.9 Active 673088510 Problem Type 2 diabetes mellitus with foot ulcer E11.621 Active [id number] Problem 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 Active 341544604 Problem Pressure ulcer of unspecified heel, stage 4 L89.60 4 Active 813671484 Problem Unsteady gait R26.81 Active 907456 08 ALLERGIES No Information ENCOUNTERS Encounter Location Date Diagnosis [facility] [address] [facility] [id number] [address] [place] [id number] Jul, [facility] [address] [facility] [id number] [address] [place] [id number] Jun, Chronic skin ulcer with fat layer exposed L98.492 [facility] [address] [id number] [address] [place] [id number] Jun, [facility] [address] [id number] [address] [place] [id number] Jun, Chronic skin ulcer with fat layer exposed L98.492 [facility] [address] [id number] [address] [place] [address] May, Chronic skin ulcer with fat layer exposed L98.492 [facility] [address] [id number] [address] [place] [id number] May, [facility] [address] [id number] [address] [place] [id number] May, Chronic skin ulcer with fat layer exposed L98.492 [facility] [address] [id number] [address] [place] [id number] Apr, Chronic skin ulcer with fat layer exposed L98.492 [facility] [address] [id number] [address] [place] [id number] Apr, [address] [id number] Apr, [facility] [address] [id number] [address] [place] [id number] Apr, Chronic skin ulcer with fat layer exposed L98.492 [facility] [address] [id number] [address] [place] [id number] Apr, Foot callus L84 and Nonheali ng wound of heel S91.309A [facility] [address] [id number] [address] [place] [id number] Apr, [address] [address] Mar, [facility] [address] [id number] [address] [place] [id number] Mar, Diabetes mellitus E11.9 and Chronic skin ulcer with fat layer exposed L98.492 [facility] [address] [id number] [address] [place] [id number] Mar, Chronic skin ulcer with fat layer exposed L98.492 [facility] [address] [id number] [address] [place] [id number] Mar, [facility] [address] [id number] [address] [place] [id number] February, Chronic skin ulcer with fat layer exposed L98.492 and Encounter for medication monitoring Z51.81 [facility] [address] [id number] [address] [place] [id number] February, [facility] [address] [id number] [address] [place] [id number] February, Encounter for medication mon itoring Z51.81 [facility] [address] [id number] [address] [place] [id number] February, [facility] [address] [id number] [address] [place] [id number] February, [facility] [address] [id number] [address] [place] [id number] February, [facility] [address] [id number] [address] [place] [id number] Jan, Chronic skin ulcer with fat layer exposed L98.492 [facility] [address] [id number] [address] [place] [id number] Jan, [facility] [address] [id number] [address] [place] [id number] Dec, [facility] [address] [id number] [address] [place] [id number] Dec, Diabetic polyneuropathy asso ciated with type 2 diabetes mellitus E11.42 and PAD (peripheral artery disease) I73.9 [facility] [address] [id number] [address] [place] [id number] Dec, Chronic skin ulcer with fat layer exposed L98.492 [facility] [address] [id number] [address] [place] [id number] Dec, [facility] [address] [id number] [address] [place] [id number] Nov, [facility] [address] [id number] [address] [place] [id number] Nov, Skin ulcer of right foot wit h fat layer exposed L97.512 [facility] [address] [id number] [address] [place] [id number] Oct, [facility] [address] [id number] [address] [place] [id number] Oct, Skin ulcer of right foot wit h fat layer exposed L97.512 [facility] [address] [id number] [address] [place] [id number] Sep, Diabetes mellitus E11.9 [facility] [address] [id number] [address] [place] [id number] Sep, [facility] [address] [id number] [address] [place] [id number] Sep, [facility] [address] [id number] [address] [place] [phone] Sep, [facility] [address] [id number] [address] [place] [id number] 14 Sep, 2018 Type 2 diabetes mellitus wit h foot ulcer E11.621 and Skin ulcer of right foot with fat layer exposed L97.512 [facility] [address] [id number] [address] [place] [id number] Sep, Diabetes mellitus E11.9 [facility] [address] [id number] [address] [place] [id number] 07 Sep, 2018 [facility] [address] [id number] [address] [place] [phone] Aug, [facility] [address] [id number] [address] [place] [id number] Aug, [facility] [address] [id number] [address] [place] [id number] Aug, 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 [facility] [address] [id number] [address] [place] [id number] Aug, [facility] [address] [id number] [address] [place] [id number] Aug, [facility] [address] [id number] [address] [place] [id number] Aug, Bronchitis J40 [facility] [address] [facility] [id number] [address] [place] [id number] Aug, [facility] [address] [id number] [address] [place] [id number] Jul, [facility] [address] [id number] [address] [place] [address] Jul, Chronic skin ulcer with fat layer exposed L98.492 [facility] [address] [id number] [address] [place] [id number] Jul, 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 [facility] [address] [id number] [address] [place] [id number] Jun, [facility] [address] [id number] [address] [place] [id number] Jun, [facility] [address] [id number] [address] [place] [id number] May, [facility] [address] [facility] [id number] [address] [place] [id number] May, Chronic skin ulcer with fat layer exposed L98.492 [facility] [address] [facility] [id number] [address] [place] [id number] Apr, [place] [address] [id number] [address] [place] [address] Apr, Type 2 diabetes mellitus wit h foot ulcer E11.621 and Unsteady gait R26.81 [place] [address] [facility] [id number] [address] [place] [id number] Mar, Decubitus ulcer of right mariana l, stage 3 L89.613 [place] [address] [facility] [id number] [address] [place] [id number] Mar, [place] [address] [facility] [id number] [address] [place] [id number] Mar, Pressure ulcer of unspecifie d heel, stage 4 L89.604 and Type 2 diabetes mellitus with foot ulcer E11.621 [place] [address] [place] [id number] [address] [place] [id number] Mar, Encounter for medication mon itoring Z51.81 [place] [address] [facility] [id number] [address] [place] [address] Mar, Type 2 diabetes mellitus wit h foot ulcer E11.621 and Non-pressure chronic ulcer of right heel and midfoot with unspecified severity L97.419 [place] [address] [facility] [id number] [address] [place] [id number] February, [place] [address] [facility] [id number] [address] [place] [id number] Jan, Right ankle pain M25.571 [place] [address] [id number] [address] [place] [id number] Dec, Right ankle pain M25.571 [place] [address] [facility] [id number] [address] [place] [id number] Dec, [place] [address] [facility] [id number] [address] [place] [id number] Dec, [place] [address] [facility] [id number] [address] [place] [id number] Dec, Right ankle pain M25.571 [facility] [address] [facility] [id number] [address] [place] [id number] Dec, Chronic skin ulcer with fat layer exposed L98.492 ; Type 2 diabetes mellitus with diabetic autonomic (poly)neuropathy E11.43 and Hypertension I10 [facility] [address] [facility] [id number] [address] [place] [id number] Nov, [facility] [address] [id number] [address] [place] [id number] Nov, [facility] [address] [facility] [id number] [address] [place] [id number] Nov, [facility] [address] [facility] [id number] [address] [place] [id number] Nov, Right ankle pain M25.571 and Chronic osteomyelitis of right foot with draining sinus M86.471 [facility] [address] [facility] [id number] [address] [place] [id number] Oct, Right ankle pain M25.571 [place] [address] [place] [id number] [address] [place] [phone] Oct, [facility] [address] [facility] [id number] [address] [place] [id number] Sep, Diabetes mellitus E11.9 [facility] [address] [facility] [id number] [address] [place] [id number] Sep, Diabetic polyneuropathy asso ciated with type 2 diabetes mellitus E11.42 and Venous insufficiency I87.2 [facility] [address] [facility] [id number] [address] [place] [id number] Sep, Right ankle pain M25.571 [facility] [address] [facility] [id number] [address] [place] [id number] Aug, Right ankle pain M25.571 [facility] [address] [facility] [id number] [address] [place] [id number] Aug, Chronic osteomyelitis of rig ht foot with draining sinus M86.471 [facility] [address] [id number] [address] [place] [id number] Aug, [facility] [address] [id number] [address] [place] [id number] Aug, [facility] [address] [id number] [address] [place] [id number] Aug, Chronic osteomyelitis of rig ht foot with draining sinus M86.471 [facility] [address] [id number] [address] [place] [id number] Jul, [facility] [address] [id number] [address] [place] [id number] Jul, [facility] [address] [id number] [address] [place] [id number] Jul, Chronic kidney disease N18.9 [facility] [address] [id number] [address] [place] [address] Jul, Right ankle pain M25.571 [facility] [address] [id number] [address] [place] [id number] Jul, Non-healing ulcer of right f oot, unspecified ulcer stage L97.519 [facility] [address] [id number] [address] [place] [address] Jul, Chronic skin ulcer with fat layer exposed L98.492 [facility] [address] [id number] [address] [place] [id number] Jul, Deformity of right ankle nitza nt M21.961 [facility] [address] [id number] [address] [place] [id number] Jun, [facility] [address] [id number] [address] [place] [address] Jun, Diabetes mellitus E11.9 ; Sk in ulcer of right foot with fat layer exposed L97.512 and Encounter for immunization Z23 [facility] [address] [id number] [address] [place] [id number] Jun, Right ankle pain M25.571 [facility] [address] [id number] [address] [place] [address] May, Right ankle pain M25.571 [facility] [address] [id number] [address] [place] [address] Apr, Right ankle pain M25.571 [facility] [address] [id number] [address] [place] [address] Mar, Right ankle pain M25.571 [facility] [address] [id number] [address] [place] [id number] Mar, [facility] [address] [facility] [id number] [address] [place] [address] February, Diabetes mellitus E11.9 and Diabetic polyneuropathy associated with type 2 diabetes mellitus E11.42 [facility] [address] [id number] [address] [place] [address] February, Hyperkalemia E87.5 [facility] [address] [facility] [id number] [address] [place] [address] February, Right ankle pain M25.571 [facility] [address] [facility] [id number] [address] [place] [address] Jan, Right ankle pain M25.571 [facility] [address] [id number] [address] [place] [address] Dec, Right ankle pain M25.571 [facility] [address] [facility] [id number] [address] [place] [id number] Dec, Right ankle pain M25.571 [facility] [address] [facility] [id number] [address] [place] [id number] Nov, [facility] [address] [facility] [id number] [address] [place] [id number] 07 Nov, 2016 Diabetes mellitus E11.9 ; Hy pertension I10 ; Gastroparesis K31.84 and Type 2 diabetes mellitus with diabetic autonomic (poly)neuropathy E11.43 [facility] [address] [facility] [id number] [address] [place] [id number] 03 Nov, 2016 Right ankle pain M25.571 [facility] [address] [facility] [id number] [address] [place] [address] Oct, Right ankle pain M25.571 [facility] [address] [facility] [id number] [address] [place] [id number] Oct, [facility] [address] [place] [id number] [place] [phone] Oct, [place] [address] [place] [id number] [address] [place] [phone] Sep, [place] [address] [place] [id number] [place] [address] Sep, Hypertension I10 [place] [address] [place] [id number] [address] [place] [address] Sep, Chronic kidney disease N18.9 ; Right ankle pain M25.571 and GERD (gastroesophageal reflux disease) K21.9 [place] [address] [place] [id number] [address] [place] [id number] Jul, [facility] [address] [place] [id number] [address] [place] [id number] Jul, Encounter for immunization Z 23 ; Venous insufficiency I87.2 and Diabetic polyneuropathy associated with type 2 diabetes mellitus E11.42 [facility] [address] [place] [id number] [address] [place] [id number] Jul, [place] [address] [place] [id number] [address] [place] [id number] 04 Jul, 2016 Diabetes mellitus E11.9 [facility] [address] [place] [id number] [address] [place] [id number] May, [facility] [address] [id number] [address] [place] [id number] Apr, [facility] [address] [id number] [address] [place] [address] Mar, Right ankle pain M25.571 [facility] [address] [id number] [address] [place] [id number] Mar, [facility] [address] [id number] [address] [place] [id number] February, Paresthesias R20.2 [facility] [address] [id number] [address] [place] [id number] February, [facility] [address] [id number] [address] [place] [id number] February, 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 [facility] [address] [id number] [address] [place] [address] February, Diabetes mellitus E11.9 [facility] [address] [id number] [address] [place] [id number] February, [facility] [address] [id number] [address] [place] [id number] February, Polyneuropathy in diabetes 3 57.2 and Paresthesias R20.2 [facility] [address] [id number] [address] [place] [phone] February, [facility] [address] [id number] [address] [place] [id number] February, [facility] [address] [id number] [address] [place] [id number] February, [facility] [address] [id number] [address] [place] [id number] February, Diabetes mellitus E11.9 [facility] [address] [id number] [address] [place] [id number] February, [facility] [address] [facility] [id number] [address] [place] [id number] February, Hyperkalemia E87.5 [facility] [address] [facility] [id number] [address] [place] [id number] Jan, Hypertension I10 [facility] [address] [facility] [id number] [address] [place] [id number] Jan, Insomnia G47.00 [facility] [address] [facility] [id number] [address] [place] [id number] Jan, [facility] [address] [facility] [id number] [address] [place] [id number] Jan, [facility] [address] [facility] [id number] [address] [place] [id number] Jan, [facility] [address] [place] [id number] [address] [place] [id number] Dec, Right ankle pain M25.571 [facility] [address] [facility] [id number] [address] [place] [id number] Dec, GERD (gastroesophageal reflu x disease) K21.9 [facility] [address] [facility] [id number] [address] [place] [id number] Dec, Insomnia G47.00 [facility] [address] [facility] [id number] [address] [place] [id number] Dec, Hypertension I10 and Hyperka lemia 276.7 [facility] [address] [facility] [id number] [address] [place] [id number] Dec, Chronic kidney disease N18.9 [facility] [address] [facility] [id number] [address] [place] [id number] Dec, [facility] [address] [facility] [id number] [address] [place] [id number] Dec, Hyperkalemia E87.5 [facility] [address] [place] [id number] [address] [place] [id number] 03 Dec, 2015 Chronic kidney disease N18.9 and Right ankle pain M25.571 [facility] [address] [id number] [address] [place] [id number] 11 Nov, 2015 GERD (gastroesophageal reflu x disease) K21.9 [facility] [address] [id number] [address] [place] [id number] 03 Nov, 2015 Right ankle pain M25.571 [facility] [address] [id number] [address] [place] [id number] 03 Nov, 2015 Diabetes mellitus E11.9 [facility] [address] [id number] [address] [place] [id number] Oct, [facility] [address] [facility] [id number] [address] [place] [id number] Oct, [facility] [address] [id number] [address] [place] [id number] Oct, [facility] [address] [id number] [address] [place] [id number] Oct, Hyperkalemia E87.5 [facility] [address] [facility] [id number] [address] [place] [id number] Oct, [facility] [address] [facility] [id number] [address] [place] [id number] Oct, Hyperkalemia E87.5 [facility] [address] [id number] [address] [place] [id number] Sep, [facility] [address] [id number] [address] [place] [id number] Sep, [facility] [address] [facility] [id number] [address] [place] [id number] Sep, [facility] [address] [facility] [id number] [address] [place] [id number] Sep, [facility] [address] [id number] [address] [place] [id number] Sep, Right ankle pain M25.571 [facility] [address] [id number] [address] [place] [id number] Aug, Chronic kidney disease N18.9 [facility] [address] [facility] [id number] [address] [place] [id number] Aug, [facility] [address] [id number] [address] [place] [id number] Aug, Hyperkalemia E87.5 [facility] [address] [id number] [address] [place] [id number] Aug, [facility] [address] [facility] [id number] [address] [place] [id number] Jul, [facility] [address] [facility] [id number] [address] [place] [id number] Jul, [facility] [address] [facility] [id number] [address] [place] [id number] Jul, [facility] [address] [facility] [id number] [address] [place] [id number] Jul, Diabetes mellitus E11.9 ; En counter for immunization Z23 ; Hypertension I10 and Hyperkalemia E87.5 [facility] [address] [facility] [id number] [address] [place] [id number] Jul, [facility] [address] [facility] [id number] [address] [place] [id number] Jul, Hyperkalemia E87.5 [facility] [address] [facility] [id number] [address] [place] [id number] Jul, Hyperkalemia E87.5 [facility] [address] [facility] [id number] [address] [place] [id number] Jun, [facility] [address] [facility] [id number] [address] [place] [id number] Jun, [facility] [address] [id number] [address] [place] [address], [place] [id number] Jun, [facility] [address] [id number] [address] [place] [address], [place] [id number] Jun, [facility] [address] [id number] [address] [place] [address], [place] [id number] May, [facility] [address] [id number] [address] [place] [address], [place] [id number] May, [facility] [address] [id number] [address] [place] [address], [place] [id number] May, [facility] [address] [id number] [address] [place] [address], [place] [id number] May, Hyperkalemia 276.7 [facility] [address] [id number] [address] [place] [address], [place] [id number] May, [facility] [address] [id number] [address] [place] [address], [place] [id number] Apr, Hyperkalemia 276.7 [facility] [address] [id number] [address] [place] [address], [place] [id number] Apr, [facility] [address] [id number] [address] [place] [address], [place] [id number] Apr, [facility] [address] [id number] [address] [place] [address], [place] [id number] Apr, [facility] [address] [id number] [address] [place] [address], [place] [id number] Apr, [facility] [address] [id number] [address] [place] [address], [place] [id number] 14 Apr, 2015 Hyperkalemia 276.7 [facility] [address] [id number] [address] [place] [address], [place] [id number] Apr, [facility] [address] [id number] [address] [place] [address], [place] [id number] Apr, [facility] [address] [id number] [address] [place] [id number] Mar, [facility] [address] [id number] [address] [place] [id number] Mar, Hyperkalemia 276.7 [facility] [address] [id number] [address] [place] [id number] Mar, Hyperkalemia 276.7 [facility] [address] [id number] [address] [place] [id number] Mar, [facility] [address] [id number] [address] [place] [id number] Mar, [facility] [address] [id number] [address] [place] [id number] Mar, [facility] [address] [id number] [address] [place] [id number] Mar, [facility] [address] [id number] [address] [place] [id number] Mar, Anserine bursitis 726.61 [facility] [address] [id number] [address] [place] [id number] Mar, Asthma 493.90 and Hyperkalem ia 276.7 [facility] [address] [id number] [address] [place] [id number] Mar, [facility] [address] [id number] [address] [place] [id number] February, [facility] [address] [id number] [address] [place] [id number] February, [facility] [address] [id number] [address] [place] [id number] February, [facility] [address] [id number] [address] [place] [id number] February, [facility] [address] [id number] [address] [place] [address], [place] [id number] February, [facility] [address] [id number] [address] [place] [address], [place] [id number] February, [facility] [address] [id number] [address] [place] [address], [place] [id number] February, [facility] [address] [id number] [address] [place] [address], [place] [id number] February, [facility] [address] [id number] [address] [place] [address], [place] [id number] February, [facility] [address] [id number] [address] [place] [address], [place] [id number] Jan, [facility] [address] [id number] [address] [place] [address], [place] [id number] Jan, [facility] [address] [id number] [address] [place] [address], [place] [id number] Dec, [facility] [address] [id number] [address] [place] [address], [place] [id number] Dec, [facility] [address] [id number] [address] [place] [address], [place] [id number] Dec, [facility] [address] [id number] [address] [place] [address], [place] [id number] Dec, [facility] [address] [id number] [address] [place] [address], [place] [id number] Dec, [facility] [address] [id number] [address] [place] [address], [place] [id number] Dec, [facility] [address] [id number] [address] [place] [address], [place] [id number] Dec, [facility] [address] [id number] [address] [place] [address], [place] [id number] Dec, [facility] [address] [id number] [address] [place] [address], [place] [id number] Dec, [facility] [address] [id number] [address] [place] [address], [place] [id number] Dec, [facility] [address] [id number] [address] [place] [address], [place] [id number] Dec, [facility] [address] [id number] [address] [place] [address], [place] [id number] Dec, [facility] [address] [id number] [address] [place] [address], [place] [id number] Dec, [facility] [address] [id number] [address] [place] [address], [place] [id number] Dec, [facility] [address] [id number] [address] [place] [address], [place] [id number] Nov, [facility] [address] [id number] [address] [place] [address], [place] [id number] Nov, [facility] [address] [id number] [address] [place] [address], [place] [id number] Nov, [facility] [address] [id number] [address] [place] [address], [place] [id number] Nov, [facility] [address] [id number] [address] [place] [address], [place] [id number] Nov, [facility] [address] [id number] [address] [place] [address], [place] [id number] Nov, [facility] [address] [id number] [address] [place] [address], [place] [id number] Oct, [facility] [address] [id number] [address] [place] [address], [place] [id number] Oct, [facility] [address] [id number] [address] [place] [address], [place] [id number] Oct, [facility] [address] [id number] [address] [place] [address], [place] [id number] Oct, [facility] [address] [id number] [address] [place] [address], [place] [id number] Oct, [facility] [address] [id number] [address] [place] [address], [place] [id number] Oct, [facility] [address] [id number] [address] [place] [address], [place] [id number] Sep, [facility] [address] [id number] [address] [place] [address], [place] [id number] Sep, [facility] [address] [id number] [address] [place] [address], [place] [id number] Sep, [facility] [address] [id number] [address] [place] [address], [place] [id number] Sep, [facility] [address] [id number] [address] [place] [address], [place] [id number] Sep, [facility] [address] [id number] [address] [place] [address], [place] [id number] Sep, [facility] [address] [id number] [address] [place] [address], [place] [id number] Aug, [facility] [address] [id number] [address] [place] [address], [place] [id number] Aug, [facility] [address] [id number] [address] [place] [address], [place] [id number] Aug, [facility] [address] [id number] [address] [place] [address], [place] [id number] Aug, [facility] [address] [id number] [address] [place] [address], [place] [id number] Aug, [facility] [address] [id number] [address] [place] [address], [place] [id number] Aug, [facility] [address] [id number] [address] [place] [address], [place] [id number] Jul, [facility] [address] [id number] [address] [place] [address], [place] [id number] Jul, [facility] [address] [id number] [address] [place] [address], [place] [id number] Jul, [facility] [address] [id number] [address] [place] [address], [place] [id number] Jul, [facility] [address] [id number] [address] [place] [address], [place] [id number] Jul, [facility] [address] [id number] [address] [place] [address], [place] [id number] Jul, [facility] [address] [id number] [address] [place] [address], [place] [id number] Jul, [facility] [address] [id number] [address] [place] [address], [place] [id number] Jul, [facility] [address] [id number] [address] [place] [address], [place] [id number] Jul, [facility] [address] [id number] [address] [place] [address], [place] [id number] Jul, [facility] [address] [id number] [address] [place] [address], [place] [id number] Jul, [facility] [address] [id number] [address] [place] [id number] Jun, [facility] [address] [id number] [address] [place] [id number] Jun, [facility] [address] [id number] [address] [place] [id number] Jun, [facility] [address] [id number] [address] [place] [address], [place] [id number] Jun, [facility] [address] [id number] [address] [place] [address], [place] [id number] Apr, [facility] [address] [id number] [address] [place] [id number] Apr, [facility] [address] [id number] [address] [place] [id number] Apr, [facility] [address] [id number] [address] [place] [id number] Apr, [facility] [address] [id number] [address] [place] [id number] Mar, [facility] [address] [id number] [address] [place] [id number] Mar, [facility] [address] [id number] [address] [place] [id number] Mar, [facility] [address] [id number] [address] [place] [id number] Mar, [facility] [address] [id number] [address] [place] [id number] Mar, [facility] [address] [id number] [address] [place] [id number] Sep, [facility] [address] [id number] [address] [place] [id number] Sep, [facility] [address] [id number] [address] [place] [id number] Aug, IMMUNIZATIONS No Known Immunizations SOCIAL HISTORY Never Assessed REASON FOR VISIT PLAN OF CARE VITAL SIGNS Height 62 in 2014-04-24 Weight 161 lbs 2014-04-24 Temperature 98 degrees Fahrenheit 2014-04-24 Heart Rate 68 bpm 2014-04-24 Respiratory Rate 18 2014-04-24 Blood pressure systolic 118 mmHg 2014-04-24 Blood pressure diastolic 68 mmHg 2014-04-24 MEDICATIONS Unknown Medications RESULTS No Results PROCEDURES Procedure Date Ordered Result Body Site GLYCATED HEMOGLOBIN TEST April 24, 2014 INSTRUCTIONS MEDICATIONS ADMINISTERED No Known Medications [...]
--- OUTSIDE RECORDS SUMMARY | 2020-04-01 19:42 | XMS REPORT ---
Author Author Josephine WILLIS Organization [facility] Address [address] [place] [address] Care Team Providers Care Master Craftsman Name Role Phone OLYA WILLIS Unavailable PROBLEMS Type Condition ICD9-CM Code SIR45-VR Code Onset Dates Condition S tatus SNOMED Code Problem Diabetes mellitus E11.9 Active 73 549879 Problem Hypertension I10 Active 4278331 3 Problem Paresthesias R20.2 Active 5506955 4 Problem Chronic kidney disease N18.9 Active 491802541 Problem Venous insufficiency I87.2 Active 07731242 Problem Diabetic polyneuropathy associated with type 2 d iabetes mellitus E11.42 Active 64717797 Problem Type 2 diabetes mellitus with diabetic autonomic (poly)neuropathy E11.43 Active 800823877 Problem Chronic skin ulcer with fat layer exposed L98.492 Active 70221292 Problem Chronic osteomyelitis of right foot with draining sinus M86.471 Active 910071183044369 Problem PAD (peripheral artery disease) I73.9 Active 942394004 Problem Gastroparesis K31.84 Active 269446 006 Problem Seasonal allergic rhinitis due to other allergic trigger J30.89 Active 227652348 Problem GERD (gastroesophageal reflux disease) K21.9 Active 529715704 Problem Type 2 diabetes mellitus with foot ulcer E11.621 Active 57373658412835 Problem 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 Active 136546926 Problem Pressure ulcer of unspecified heel, stage 4 L89.60 4 Active 956147973 Problem Unsteady gait R26.81 Active 535798 08 ALLERGIES No Information ENCOUNTERS Encounter Location Date Diagnosis [facility] [address] [facility] [id number] [address] [place] [id number] Jul, [facility] [address] [facility] [id number] [address] [place] [address] Jun, Chronic skin ulcer with fat layer exposed L98.492 [facility] [address] [id number] [address] [place] [id number] Jun, [facility] [address] [id number] [address] [place] [id number] Jun, Chronic skin ulcer with fat layer exposed L98.492 [facility] [address] [id number] [address] [place] [address] May, Chronic skin ulcer with fat layer exposed L98.492 [facility] [address] [id number] [address] [place] [address] May, [facility] [address] [id number] [address] [place] [address] May, Chronic skin ulcer with fat layer exposed L98.492 [facility] [address] [id number] [address] [place] [address] Apr, Chronic skin ulcer with fat layer exposed L98.492 [facility] [address] [id number] [address] [place] [address] Apr, [address] [address] Apr, [facility] [address] [id number] [address] [place] [address] Apr, Chronic skin ulcer with fat layer exposed L98.492 [facility] [address] [id number] [address] [place] [address] Apr, Foot callus L84 and Nonheali ng wound of heel S91.309A [facility] [address] [id number] [address] [place] [address] Apr, [address] [address] Mar, [facility] [address] [id number] [address] [place] [address] Mar, Diabetes mellitus E11.9 and Chronic skin ulcer with fat layer exposed L98.492 [facility] [address] [id number] [address] [place] [address] Mar, Chronic skin ulcer with fat layer exposed L98.492 [facility] [address] [id number] [address] [place] [address] Mar, [facility] [address] [id number] [address] [place] [address] February, Chronic skin ulcer with fat layer exposed L98.492 and Encounter for medication monitoring Z51.81 [facility] [address] [id number] [address] [place] [phone] February, [facility] [address] [id number] [address] [place] [id number] February, Encounter for medication mon itoring Z51.81 [facility] [address] [id number] [address] [place] [address] February, [facility] [address] [id number] [address] [place] [id number] February, [facility] [address] [id number] [address] [place] [id number] February, [facility] [address] [id number] [address] [place] [address] Jan, Chronic skin ulcer with fat layer exposed L98.492 [facility] [address] [id number] [address] [place] [phone] Jan, [facility] [address] [id number] [address] [place] [id number] Dec, [facility] [address] [id number] [address] [place] [address] Dec, Diabetic polyneuropathy asso ciated with type 2 diabetes mellitus E11.42 and PAD (peripheral artery disease) I73.9 [facility] [address] [id number] [address] [place] [address] Dec, Chronic skin ulcer with fat layer exposed L98.492 [facility] [address] [id number] [address] [place] [address] Dec, [facility] [address] [id number] [address] [place] [address] Nov, [facility] [address] [id number] [address] [place] [id number] Nov, Skin ulcer of right foot wit h fat layer exposed L97.512 [facility] [address] [id number] [address] [place] [address] Oct, [facility] [address] [id number] [address] [place] [address] Oct, Skin ulcer of right foot wit h fat layer exposed L97.512 [facility] [address] [id number] [address] [place] [address] Sep, Diabetes mellitus E11.9 [facility] [address] [id number] [address] [place] [id number] Sep, [facility] [address] [id number] [address] [place] [id number] Sep, [facility] [address] [id number] [address] [place] [address] Sep, [facility] [address] [id number] [address] [place] [id number] 14 Sep, 2018 Type 2 diabetes mellitus wit h foot ulcer E11.621 and Skin ulcer of right foot with fat layer exposed L97.512 [facility] [address] [id number] [address] [place] [address] Sep, Diabetes mellitus E11.9 [facility] [address] [id number] [address] [place] [address] 07 Sep, 2018 [facility] [address] [id number] [address] [place] [address] Aug, [facility] [address] [id number] [address] [place] [address] Aug, [facility] [address] [id number] [address] [place] [address] Aug, 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 [facility] [address] [id number] [address] [place] [phone] Aug, [facility] [address] [id number] [address] [place] [id number] Aug, [facility] [address] [id number] [address] [place] [id number] Aug, Bronchitis J40 [facility] [address] [facility] [id number] [address] [place] [address] Aug, [facility] [address] [id number] [address] [place] [address] Jul, [facility] [address] [id number] [address] [place] [address] Jul, Chronic skin ulcer with fat layer exposed L98.492 [facility] [address] [id number] [address] [place] [address] Jul, 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 [facility] [address] [id number] [address] [place] [id number] Jun, [facility] [address] [id number] [address] [place] [address] Jun, [facility] [address] [id number] [address] [place] [address] May, [facility] [address] [facility] [id number] [address] [place] [address] May, Chronic skin ulcer with fat layer exposed L98.492 [facility] [address] [facility] [id number] [address] [place] [address] Apr, [place] [address] [id number] [address] [place] [address] Apr, Type 2 diabetes mellitus wit h foot ulcer E11.621 and Unsteady gait R26.81 [place] [address] [facility] [id number] [address] [place] [address] Mar, Decubitus ulcer of right mariana l, stage 3 L89.613 [place] [address] [facility] [id number] [address] [place] [address] Mar, [place] [address] [facility] [id number] [address] [place] [address] Mar, Pressure ulcer of unspecifie d heel, stage 4 L89.604 and Type 2 diabetes mellitus with foot ulcer E11.621 [place] [address] [place] [id number] [address] [place] [id number] Mar, Encounter for medication mon itoring Z51.81 [place] [address] [facility] [id number] [address] [place] [address] Mar, Type 2 diabetes mellitus wit h foot ulcer E11.621 and Non-pressure chronic ulcer of right heel and midfoot with unspecified severity L97.419 [place] [address] [facility] [id number] [address] [place] [address] February, [place] [address] [facility] [id number] [address] [place] [address] Jan, Right ankle pain M25.571 [place] [address] [id number] [address] [place] [address] Dec, Right ankle pain M25.571 [place] [address] [facility] [id number] [address] [place] [address] Dec, [place] [address] [facility] [id number] [address] [place] [address] Dec, [place] [address] [facility] [id number] [address] [place] [address] Dec, Right ankle pain M25.571 [facility] [address] [facility] [id number] [address] [place] [address] Dec, Chronic skin ulcer with fat layer exposed L98.492 ; Type 2 diabetes mellitus with diabetic autonomic (poly)neuropathy E11.43 and Hypertension I10 [facility] [address] [facility] [id number] [address] [place] [phone] Nov, [facility] [address] [id number] [address] [place] [address] Nov, [facility] [address] [facility] [id number] [address] [place] [address] Nov, [facility] [address] [facility] [id number] [address] [place] [address] Nov, Right ankle pain M25.571 and Chronic osteomyelitis of right foot with draining sinus M86.471 [facility] [address] [facility] [id number] [address] [place] [address] Oct, Right ankle pain M25.571 [place] [address] [place] [id number] [address] [place] [address] Oct, [facility] [address] [facility] [id number] [address] [place] [address] Sep, Diabetes mellitus E11.9 [facility] [address] [facility] [id number] [address] [place] [address] Sep, Diabetic polyneuropathy asso ciated with type 2 diabetes mellitus E11.42 and Venous insufficiency I87.2 [facility] [address] [facility] [id number] [address] [place] [address] Sep, Right ankle pain M25.571 [facility] [address] [facility] [id number] [address] [place] [address] Aug, Right ankle pain M25.571 [facility] [address] [facility] [id number] [address] [place] [address] Aug, Chronic osteomyelitis of rig ht foot with draining sinus M86.471 [facility] [address] [id number] [address] [place] [address] Aug, [facility] [address] [id number] [address] [place] [id number] Aug, [facility] [address] [id number] [address] [place] [address] Aug, Chronic osteomyelitis of rig ht foot with draining sinus M86.471 [facility] [address] [id number] [address] [place] [id number] Jul, [facility] [address] [id number] [address] [place] [id number] Jul, [facility] [address] [id number] [address] [place] [address] Jul, Chronic kidney disease N18.9 [facility] [address] [id number] [address] [place] [address] Jul, Right ankle pain M25.571 [facility] [address] [id number] [address] [place] [address] Jul, Non-healing ulcer of right f oot, unspecified ulcer stage L97.519 [facility] [address] [id number] [address] [place] [address] Jul, Chronic skin ulcer with fat layer exposed L98.492 [facility] [address] [id number] [address] [place] [address] Jul, Deformity of right ankle nitza nt M21.961 [facility] [address] [id number] [address] [place] [id number] Jun, [facility] [address] [id number] [address] [place] [address] Jun, Diabetes mellitus E11.9 ; Sk in ulcer of right foot with fat layer exposed L97.512 and Encounter for immunization Z23 [facility] [address] [id number] [address] [place] [address] Jun, Right ankle pain M25.571 [facility] [address] [id number] [address] [place] [address] May, Right ankle pain M25.571 [facility] [address] [id number] [address] [place] [address] Apr, Right ankle pain M25.571 [facility] [address] [id number] [address] [place] [address] Mar, Right ankle pain M25.571 [facility] [address] [id number] [address] [place] [address] Mar, [facility] [address] [facility] [id number] [address] [place] [address] February, Diabetes mellitus E11.9 and Diabetic polyneuropathy associated with type 2 diabetes mellitus E11.42 [facility] [address] [id number] [address] [place] [address] February, Hyperkalemia E87.5 [facility] [address] [facility] [id number] [address] [place] [address] February, Right ankle pain M25.571 [facility] [address] [facility] [id number] [address] [place] [address] Jan, Right ankle pain M25.571 [facility] [address] [id number] [address] [place] [address] Dec, Right ankle pain M25.571 [facility] [address] [facility] [id number] [address] [place] [address] Dec, Right ankle pain M25.571 [facility] [address] [facility] [id number] [address] [place] [address] Nov, [facility] [address] [facility] [id number] [address] [place] [address] 07 Nov, 2016 Diabetes mellitus E11.9 ; Hy pertension I10 ; Gastroparesis K31.84 and Type 2 diabetes mellitus with diabetic autonomic (poly)neuropathy E11.43 [facility] [address] [facility] [id number] [address] [place] [address] 03 Nov, 2016 Right ankle pain M25.571 [facility] [address] [facility] [id number] [address] [place] [address] Oct, Right ankle pain M25.571 [facility] [address] [facility] [id number] [address] [place] [id number] Oct, [facility] [address] [place] [id number] [place] [address] Oct, [place] [address] [place] [id number] [address] [place] [id number] Sep, [place] [address] [place] [id number] [place] [address] Sep, Hypertension I10 [place] [address] [place] [id number] [address] [place] [address] Sep, Chronic kidney disease N18.9 ; Right ankle pain M25.571 and GERD (gastroesophageal reflux disease) K21.9 [place] [address] [place] [id number] [address] [place] [id number] Jul, [facility] [address] [place] [id number] [address] [place] [id number] Jul, Encounter for immunization Z 23 ; Venous insufficiency I87.2 and Diabetic polyneuropathy associated with type 2 diabetes mellitus E11.42 [facility] [address] [place] [id number] [address] [place] [address] Jul, [place] [address] [place] [id number] [address] [place] [id number] 04 Jul, 2016 Diabetes mellitus E11.9 [facility] [address] [place] [id number] [address] [place] [id number] May, [facility] [address] [id number] [address] [place] [address] Apr, [facility] [address] [id number] [address] [place] [address] Mar, Right ankle pain M25.571 [facility] [address] [id number] [address] [place] [id number] Mar, [facility] [address] [id number] [address] [place] [address] February, Paresthesias R20.2 [facility] [address] [id number] [address] [place] [address] February, [facility] [address] [id number] [address] [place] [address] February, 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 [facility] [address] [id number] [address] [place] [address] February, Diabetes mellitus E11.9 [facility] [address] [id number] [address] [place] [id number] February, [facility] [address] [id number] [address] [place] [address] February, Polyneuropathy in diabetes 3 57.2 and Paresthesias R20.2 [facility] [address] [id number] [address] [place] [id number] February, [facility] [address] [id number] [address] [place] [id number] February, [facility] [address] [id number] [address] [place] [id number] February, [facility] [address] [id number] [address] [place] [phone] February, Diabetes mellitus E11.9 [facility] [address] [id number] [address] [place] [id number] February, [facility] [address] [facility] [id number] [address] [place] [id number] February, Hyperkalemia E87.5 [facility] [address] [facility] [id number] [address] [place] [id number] Jan, Hypertension I10 [facility] [address] [facility] [id number] [address] [place] [address] Jan, Insomnia G47.00 [facility] [address] [facility] [id number] [address] [place] [id number] Jan, [facility] [address] [facility] [id number] [address] [place] [id number] Jan, [facility] [address] [facility] [id number] [address] [place] [phone] Jan, [facility] [address] [place] [id number] [address] [place] [address] Dec, Right ankle pain M25.571 [facility] [address] [facility] [id number] [address] [place] [id number] Dec, GERD (gastroesophageal reflu x disease) K21.9 [facility] [address] [facility] [id number] [address] [place] [id number] Dec, Insomnia G47.00 [facility] [address] [facility] [id number] [address] [place] [id number] Dec, Hypertension I10 and Hyperka lemia 276.7 [facility] [address] [facility] [id number] [address] [place] [address] Dec, Chronic kidney disease N18.9 [facility] [address] [facility] [id number] [address] [place] [phone] Dec, [facility] [address] [facility] [id number] [address] [place] [phone] Dec, Hyperkalemia E87.5 [facility] [address] [place] [id number] [address] [place] [id number] 03 Dec, 2015 Chronic kidney disease N18.9 and Right ankle pain M25.571 [facility] [address] [id number] [address] [place] [phone] 11 Nov, 2015 GERD (gastroesophageal reflu x disease) K21.9 [facility] [address] [id number] [address] [place] [phone] 03 Nov, 2015 Right ankle pain M25.571 [facility] [address] [id number] [address] [place] [id number] 03 Nov, 2015 Diabetes mellitus E11.9 [facility] [address] [id number] [address] [place] [phone] Oct, [facility] [address] [facility] [id number] [address] [place] [phone] Oct, [facility] [address] [id number] [address] [place] [phone] Oct, [facility] [address] [id number] [address] [place] [phone] Oct, Hyperkalemia E87.5 [facility] [address] [facility] [id number] [address] [place] [phone] Oct, [facility] [address] [facility] [id number] [address] [place] [phone] Oct, Hyperkalemia E87.5 [facility] [address] [id number] [address] [place] [id number] Sep, [facility] [address] [id number] [address] [place] [phone] Sep, [facility] [address] [facility] [id number] [address] [place] [phone] Sep, [facility] [address] [facility] [id number] [address] [place] [phone] Sep, [facility] [address] [id number] [address] [place] [phone] Sep, Right ankle pain M25.571 [facility] [address] [id number] [address] [place] [phone] Aug, Chronic kidney disease N18.9 [facility] [address] [facility] [id number] [address] [place] [phone] Aug, [facility] [address] [id number] [address] [place] [id number] Aug, Hyperkalemia E87.5 [facility] [address] [id number] [address] [place] [phone] Aug, [facility] [address] [facility] [id number] [address] [place] [phone] Jul, [facility] [address] [facility] [id number] [address] [place] [id number] Jul, [facility] [address] [facility] [id number] [address] [place] [address] Jul, [facility] [address] [facility] [id number] [address] [place] [address] Jul, Diabetes mellitus E11.9 ; En counter for immunization Z23 ; Hypertension I10 and Hyperkalemia E87.5 [facility] [address] [facility] [id number] [address] [place] [address] Jul, [facility] [address] [facility] [id number] [address] [place] [address] Jul, Hyperkalemia E87.5 [facility] [address] [facility] [id number] [address] [place] [address] Jul, Hyperkalemia E87.5 [facility] [address] [facility] [id number] [address] [place] [address] Jun, [facility] [address] [facility] [id number] [address] [place] [address] Jun, [facility] [address] [id number] [address] [place] [address], [place] [address] Jun, [facility] [address] [id number] [address] [place] [address], [place] [address] Jun, [facility] [address] [id number] [address] [place] [address], [place] [address] May, [facility] [address] [id number] [address] [place] [address], [place] [address] May, [facility] [address] [id number] [address] [place] [address], [place] [address] May, [facility] [address] [id number] [address] [place] [address], [place] [address] May, Hyperkalemia 276.7 [facility] [address] [id number] [address] [place] [address], [place] [address] May, [facility] [address] [id number] [address] [place] [address], [place] [address] Apr, Hyperkalemia 276.7 [facility] [address] [id number] [address] [place] [address], [place] [address] Apr, [facility] [address] [id number] [address] [place] [address], [place] [address] Apr, [facility] [address] [id number] [address] [place] [address], [place] [address] Apr, [facility] [address] [id number] [address] [place] [address], [place] [address] Apr, [facility] [address] [id number] [address] [place] [address], [place] [address] 14 Apr, 2015 Hyperkalemia 276.7 [facility] [address] [id number] [address] [place] [address], [place] [address] Apr, [facility] [address] [id number] [address] [place] [address], [place] [address] Apr, [facility] [address] [id number] [address] [place] [phone] Mar, [facility] [address] [id number] [address] [place] [address] Mar, Hyperkalemia 276.7 [facility] [address] [id number] [address] [place] [id number] Mar, Hyperkalemia 276.7 [facility] [address] [id number] [address] [place] [address] Mar, [facility] [address] [id number] [address] [place] [phone] Mar, [facility] [address] [id number] [address] [place] [phone] Mar, [facility] [address] [id number] [address] [place] [id number] Mar, [facility] [address] [id number] [address] [place] [address] Mar, Anserine bursitis 726.61 [facility] [address] [id number] [address] [place] [address] Mar, Asthma 493.90 and Hyperkalem ia 276.7 [facility] [address] [id number] [address] [place] [address] Mar, [facility] [address] [id number] [address] [place] [phone] February, [facility] [address] [id number] [address] [place] [address] February, [facility] [address] [id number] [address] [place] [address] February, [facility] [address] [id number] [address] [place] [phone] February, [facility] [address] [id number] [address] [place] [address], [place] [address] February, [facility] [address] [id number] [address] [place] [address], [place] [address] February, [facility] [address] [id number] [address] [place] [address], [place] [address] February, [facility] [address] [id number] [address] [place] [address], [place] [address] February, [facility] [address] [id number] [address] [place] [address], [place] [address] February, [facility] [address] [id number] [address] [place] [address], [place] [address] Jan, [facility] [address] [id number] [address] [place] [address], [place] [address] Jan, [facility] [address] [id number] [address] [place] [address], [place] [address] Dec, [facility] [address] [id number] [address] [place] [address], [place] [address] Dec, [facility] [address] [id number] [address] [place] [address], [place] [address] Dec, [facility] [address] [id number] [address] [place] [address], [place] [address] Dec, [facility] [address] [id number] [address] [place] [address], [place] [address] Dec, [facility] [address] [id number] [address] [place] [address], [place] [address] Dec, [facility] [address] [id number] [address] [place] [address], [place] [address] Dec, [facility] [address] [id number] [address] [place] [address], [place] [address] Dec, [facility] [address] [id number] [address] [place] [address], [place] [address] Dec, [facility] [address] [id number] [address] [place] [address], [place] [address] Dec, [facility] [address] [id number] [address] [place] [address], [place] [address] Dec, [facility] [address] [id number] [address] [place] [address], [place] [address] Dec, [facility] [address] [id number] [address] [place] [address], [place] [address] Dec, [facility] [address] [id number] [address] [place] [address], [place] [address] Dec, [facility] [address] [id number] [address] [place] [address], [place] [address] Nov, [facility] [address] [id number] [address] [place] [address], [place] [address] Nov, [facility] [address] [id number] [address] [place] [address], [place] [address] Nov, [facility] [address] [id number] [address] [place] [address], [place] [address] Nov, [facility] [address] [id number] [address] [place] [address], [place] [address] Nov, [facility] [address] [id number] [address] [place] [address], [place] [address] Nov, [facility] [address] [id number] [address] [place] [address], [place] [address] Oct, [facility] [address] [id number] [address] [place] [address], [place] [address] Oct, [facility] [address] [id number] [address] [place] [address], [place] [address] Oct, [facility] [address] [id number] [address] [place] [address], [place] [address] Oct, [facility] [address] [id number] [address] [place] [address], [place] [address] Oct, [facility] [address] [id number] [address] [place] [address], [place] [address] Oct, [facility] [address] [id number] [address] [place] [address], [place] [address] Sep, [facility] [address] [id number] [address] [place] [address], [place] [address] Sep, [facility] [address] [id number] [address] [place] [address], [place] [address] Sep, [facility] [address] [id number] [address] [place] [address], [place] [address] Sep, [facility] [address] [id number] [address] [place] [address], [place] [address] Sep, [facility] [address] [id number] [address] [place] [address], [place] [address] Sep, [facility] [address] [id number] [address] [place] [address], [place] [address] Aug, [facility] [address] [id number] [address] [place] [address], [place] [address] Aug, [facility] [address] [id number] [address] [place] [address], [place] [address] Aug, [facility] [address] [id number] [address] [place] [address], [place] [address] Aug, [facility] [address] [id number] [address] [place] [address], [place] [address] Aug, [facility] [address] [id number] [address] [place] [address], [place] [address] Aug, [facility] [address] [id number] [address] [place] [address], [place] [address] Jul, [facility] [address] [id number] [address] [place] [address], [place] [address] Jul, [facility] [address] [id number] [address] [place] [address], [place] [address] Jul, [facility] [address] [id number] [address] [place] [address], [place] [address] Jul, [facility] [address] [id number] [address] [place] [address], [place] [address] Jul, [facility] [address] [id number] [address] [place] [address], [place] [address] Jul, [facility] [address] [id number] [address] [place] [address], [place] [address] Jul, [facility] [address] [id number] [address] [place] [address], [place] [address] Jul, [facility] [address] [id number] [address] [place] [address], [place] [address] Jul, [facility] [address] [id number] [address] [place] [address], [place] [address] Jul, [facility] [address] [id number] [address] [place] [address], [place] [address] Jul, [facility] [address] [id number] [address] [place] [address] Jun, [facility] [address] [id number] [address] [place] [address] Jun, [facility] [address] [id number] [address] [place] [address] Jun, [facility] [address] [id number] [address] [place] [address], [place] [address] Jun, [facility] [address] [id number] [address] [place] [address], [place] [address] Apr, [facility] [address] [id number] [address] [place] [address] Apr, [facility] [address] [id number] [address] [place] [address] Apr, [facility] [address] [id number] [address] [place] [address] Apr, [facility] [address] [id number] [address] [place] [address] Mar, [facility] [address] [id number] [address] [place] [address] Mar, [facility] [address] [id number] [address] [place] [address] Mar, [facility] [address] [id number] [address] [place] [address] Mar, [facility] [address] [id number] [address] [place] [address] Mar, [facility] [address] [id number] [address] [place] [address] Sep, [facility] [address] [id number] [address] [place] [address] Sep, [facility] [address] [id number] [address] [place] [address] Aug, IMMUNIZATIONS No Known Immunizations SOCIAL HISTORY Never Assessed REASON FOR VISIT PLAN OF CARE VITAL SIGNS Height 62 in 2014-10-23 Weight 150 lbs 2014-10-23 Temperature 97.6 degrees Fahrenheit 2014-10-23 Heart Rate 70 bpm 2014-10-23 Respiratory Rate 18 2014-10-23 Blood pressure systolic 142 mmHg 2014-10-23 Blood pressure diastolic 70 mmHg 2014-10-23 MEDICATIONS Unknown Medications RESULTS No Results PROCEDURES [...]
--- OUTSIDE RECORDS SUMMARY | 2020-04-01 19:44 | XMS REPORT | CCD ---
Author Author Josephine Cordero D.O. 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 Name Role Phone Margarita Cordero D.O., PP Unavailable CCM Unavailable Summary Purpose Interface Exchange Insurance Providers Payer name Policy type / Coverage type Covered republican ID Effective Begin Date Effective End Date WPS MEDICARE PART B [place] Medicare Part B [id number] Unknown Family history Father Diagnosis Age At Onset Hypertension Unknown Mother Diagnosis Age At Onset Heart disease Unknown Alzheimer's Disease Unknown Social History Social History Element Codes Description Effective Dates Tobacco history SNOMED CT: 5998189 Former smoker quit 30+ years ago 08/27/2011 Marital status Unknown W idowed 02/10/2010 Number of children Unknown 4 02/10/2010 Employment Unknown 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 02/10/2010 Allergies, Adverse Reactions, Alerts Substance Reaction Codes Entered Date Inactivated Date Status * NO KNOWN FOOD BLADIMIR RGIES Unknown 02/10/2010 No Inactive Date Active _ Unknown 02/10/2010 No Inactive Date Active CODEINE Unknown 04/10/2010 No In active Date Active GABAPENTIN anaphylaxis Unknown 04/10/2010 No Inactive Date Active Past Medical History Illness Codes Condition Status Onset Date Resolved Date HYPERTENSION ICD-9: 401.9 Active 02/12/2014 Unknown EDEMA ICD-9: 782.3 Active 02/05/2014 Unknow n Non-compliant patient ICD-9: V15.81 Active 11/14/2013 Unknown PNEUMONIA, ORGANISM ICD- 9: 486 Active 11/14/2013 Unknown OBSTRUCTIVE SLEEP APNEA ICD-9: 327.23 Active 03/30/2013 Unknown Neuropathy ICD-9: 355.9 Active 02/21/2013 Unknow n Peptic ulcer disease ICD-9: 533.90 Active 02/21/2013 Unknown CVA ICD-9: 436 Active 02/14/2013 Unknow n Rectal bleeding ICD-9: 569.3 Active 02/14/2013 Unknown Cerebrovascular acci dent ICD-9: 434.91 Active Unknown DISTURBANCE OF SKIN SENSATION (Paresthesia) ICD-9: 782.0 Active 01/17/2013 Unknown Transient ischemic a ttack ICD-9: 435.9 Active 04/2013 Unknown MALAISE AND FATIGUE ICD- 9: 780.79 Active 12/27/2012 Unknown Diabetic ulcer of lo wer extremity ICD-9: 250.80 Active Unknown 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, 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 Active 05/25/2012 Unknown URINARY INCONTINENCE ICD-9: 788.30 Active 05/25/2012 Unknown Seborrheic keratosis , inflamed ICD-9: 702.11 Active 12/2010 Unknown HYPERLIPIDEMIA NEC/NOS ICD-9: 272.4 Active 07/29/2011 Unknown Diabetic gastroparesis ICD-9: 250.60 Active 07/01/2011 Unknown Hyponatremia ICD-9: 276.1 Active 07/01/2011 Unknown PYELONEPHRITIS ICD-9: 590.80 Active 01/20/2011 Unknown DIZZINESS/VERTIGO ICD-9: 780.4 Active 01/19/2011 Unknown URINARY TRACT INFECTION ICD-9: 599.0 Active 01/19/2011 Unknown Humerus fracture ICD-9: 812.20 Active 01/15/2011 Unknown 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 Active 11/2009 Unknown Vaginal itching ICD-9: 698.1 Active 08/26/2010 Unknown Nausea & vomiting ICD-9: 787.01 Active 08/21/2010 Unknown ABDOMINAL PAIN ICD-9: 789.00 Active 06/09/2010 Unknown VOMITING ALONE ICD-9: 787.03 Active 06/09/2010 Unknown Constipation ICD-9: 564.00 Active 04/10/2010 Unknown 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, 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 Active 04/10/2010 Unknown DYSPEPSIA ICD-9: 536.8 Active 04/10/2010 Unknow n NAUSEA ALONE ICD-9: 787.02 Active 04/10/2010 Unknown Diabetes Unknown Active 02/10/2010 Unknow n Hyperlipidemia Unknown Active 02/10/2010 Unknow n Hypertension Unknown Active 02/10/2010 Unknow n Irritable bowel synd amalia Unknown Active 02/10/2010 Unknown Melanoma Unknown Active 02/10/2010 Unknow n Nephropathy Unknown Active 02/10/2010 Unknow n Osteoarthritis Unknown Active 02/10/2010 Unknow n sleep apnea Unknown Active 02/10/2010 Unknow n COUGH ICD-9: 786.2 Active 02/10/2010 Unknow n Pharyngitis ICD-9: 462 Active 02/10/2010 Unknow n ASTHMA NOS ICD-9: 493.90 Active 01/15/2010 Unknow n Problems Condition Codes Effectiv e Dates Condition Status HYPERTENSION ICD-9: 401.9 02/12/2014 Active EDEMA ICD-9: 782.3 02/05/2014 Active Non-compliant patient ICD-9: V15.81 11/14/2013 Active PNEUMONIA, ORGANISM ICD- 9: 486 11/14/2013 Active OBSTRUCTIVE SLEEP APNEA ICD-9: 327.23 03/30/2013 Active Neuropathy ICD-9: 355.9 02/21/2013 Active Peptic ulcer disease ICD-9: 533.90 02/21/2013 Active CVA ICD-9: 436 02/14/2013 Active Rectal bleeding ICD-9: 569.3 02/14/2013 Active Cerebrovascular acci dent ICD-9: 434.91 01/17/2013 Active DISTURBANCE OF SKIN SENSATION (Paresthesia) ICD-9: 782.0 01/17/2013 Active Transient ischemic a ttack ICD-9: 435.9 12/29/2012 Active MALAISE AND FATIGUE ICD- 9: 780.79 12/27/2012 Active Diabetic ulcer of lo wer extremity ICD-9: 250.80 06/22/2012 Active 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, 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 05/25/2012 Active URINARY INCONTINENCE ICD-9: 788.30 05/25/2012 Active Seborrheic keratosis , inflamed ICD-9: 702.11 08/27/2011 Active HYPERLIPIDEMIA NEC/NOS ICD-9: 272.4 07/29/2011 Active Diabetic gastroparesis ICD-9: 250.60 07/01/2011 Active Hyponatremia ICD-9: 276.1 07/01/2011 Active PYELONEPHRITIS ICD-9: 590.80 01/20/2011 Active DIZZINESS/VERTIGO ICD-9: 780.4 01/19/2011 Active URINARY TRACT INFECTION ICD-9: 599.0 01/19/2011 Active Humerus fracture ICD-9: 812.20 01/15/2011 Active 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 08/26/2010 Active Vaginal itching ICD-9: 698.1 08/26/2010 Active Nausea & vomiting ICD-9: 787.01 08/21/2010 Active ABDOMINAL PAIN ICD-9: 789.00 06/09/2010 Active VOMITING ALONE ICD-9: 787.03 06/09/2010 Active Constipation ICD-9: 564.00 04/10/2010 Active 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, 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 04/10/2010 Active DYSPEPSIA ICD-9: 536.8 04/10/2010 Active NAUSEA ALONE ICD-9: 787.02 04/10/2010 Active Diabetes Unknown 02/10/2010 Active Hyperlipidemia Unknown 02/10/2010 Active Hypertension Unknown 02/10/2010 Active Irritable bowel synd amalia Unknown 02/10/2010 Activ e Melanoma Unknown 02/10/2010 Active Nephropathy Unknown 02/10/2010 Active Osteoarthritis Unknown 02/10/2010 Active sleep apnea Unknown 02/10/2010 Active COUGH ICD-9: 786.2 02/10/2010 Active Pharyngitis ICD-9: 462 02/10/2010 Active ASTHMA NOS ICD-9: 493.90 01/15/2010 Active Medications Medication Codes Instruc tions Start Date Stop Date Sta tus Fill Instructions Levemir Flexpen 100 unit/mL (3 mL) solution subcutaneous insulin pen RxNorm: 120278 75 Unit(s) SQ BID 03/14/2014 04/12/2014 Inactive [SAVINGS FOR UNINSURED NINA ENTS -- BIN:[id number], PCN: ASPROD1, Group: [id number], ID# [id number], Process claim through SumZero, for questions: . THIS IS NOT INSURANCE.] potassium chloride E R 20 mEq tablet,extended release RxNorm: 494059 1 Tablet(s) PO QD 03/13/2014 04/11/2014 Inactive [SAVINGS FOR UNINSURED PATIENTS -- BIN:0 72769, PCN: ASPROD1, Group: [id number], ID# [id number], Process claim through MedImpact, for questions: . THIS IS NOT INSURANCE.] furosemide 40 mg tablet RxNorm: 737415 1 Tablet(s) PO QAM 03/13/2014 04/11/2014 Inactive [SAVINGS FOR UNINSURED PATIENTS -- BIN:777530, PCN: ASPROD1, Group: [id number], ID# [id number], Process claim through MedImpact, for questions: . THIS IS NOT INSURANCE.] hydrocodone 10 mg-ac etaminophen 325 mg tablet RxNorm: 610547 1 Tablet(s) PO QID 02/16/2014 No Stop Date Active [SAVINGS FOR UNINSURED PATIENTS -- BIN:0 27143, PCN: ASPROD1, Group: [id number], ID# [id number], Process claim through MedImpact, for questions: . THIS IS NOT INSURANCE.] amlodipine 10 mg tablet RxNorm: 012662 1 Tablet(s) PO QHS for BP--replaces 5mg dose 02/15/2014 08/13/2014 Inactive [AttnRPh: Saving apply/adjudicate RxGRP: SG20 RxBIN:[id number] RxPCN: ID#:[id number]] amlodipine 10 mg tablet RxNorm: 856116 1 Tablet(s) PO QHS for BP--replaces 5mg dose 02/15/2014 02/15/2014 Inactive [AttnRPh: Saving apply/adjudicate RxGRP: SG20 RxBIN:[id number] RxPCN:HT ID#:[id number]] potassium chloride E R 20 mEq tablet,extended release RxNorm: 969561 1 Tablet(s) PO QD 01/29/2014 01/28/2014 Inactive furosemide 40 mg tablet RxNorm: 317885 1 Tablet(s) PO QAM 01/29/2014 03/13/2014 Inactive furosemide 40 mg tablet RxNorm: 911768 1 Tablet(s) PO QAM 01/29/2014 01/28/2014 Inactive potassium chloride E R 20 mEq tablet,extended release RxNorm: 578090 1 Tablet(s) PO QD 01/29/2014 02/27/2014 Inactive hydrocodone 10 mg-ac etaminophen 325 mg tablet RxNorm: 212614 1 Tablet(s) PO QID 01/15/2014 No Stop Date Active cefdinir 300 mg capsule RxNorm: 238087 2 Capsule(s) PO QD 11/14/2013 11/20/2013 Inactive hydrocodone 10 mg-ac etaminophen 650 mg tablet RxNorm: 695374 Tablet(s) PO TAKE ONE TABLET 4 TIMES A DAY 11/13/2013 01/14/2014 Inactive (Appended: Controlled subs tance eRx refill - RxReferenceNumber: [id number]) hydrocodone 10 mg-ac etaminophen 650 mg tablet RxNorm: 869965 1 Tablet(s) PO QID 10/10/2013 11/14/2013 In active TAKE 1 TABLET 3 TIMES A DAY (Appended: Controlled substance eRx refill - RxReferenceNumber: [id number]) Diflucan 100 mg tablet RxNorm: 934433 1 Tablet(s) PO QD 10/03/2013 10/09/2013 Inactive hydrocodone 10 mg-ac etaminophen 650 mg tablet RxNorm: 383683 1 Tablet(s) PO QID 09/08/2013 10/07/2013 In active TAKE 1 TABLET 3 TIMES A DAY (Appended: Controlled substance eRx refill - RxReferenceNumber: [id number]) hydrocodone 10 mg-ac etaminophen 650 mg tablet RxNorm: 080255 1 Tablet(s) PO QID 08/09/2013 09/07/2013 In active TAKE 1 TABLET 3 TIMES A DAY (Appended: Controlled substance eRx refill - RxReferenceNumber: [id number]) Biaxin XL 500 mg tab let,extended release RxNorm: 294597 1 Tablet(s) PO BID 07/31/2013 08/09/2013 In active hydrocodone 10 mg-ac etaminophen 650 mg tablet RxNorm: 485216 1 Tablet(s) PO QID 07/11/2013 08/08/2013 In active TAKE 1 TABLET 3 TIMES A DAY (Appended: Controlled substance eRx refill - RxReferenceNumber: [id number]) hydrochlorothiazide 25 mg tablet RxNorm: 721992 1 Tablet(s) PO QD 07/04/2013 12/30/2013 Inactive pantoprazole 40 mg t ablet,delayed release RxNorm: 639192 1 Tablet(s) PO QD 06/13/2013 01/08/2014 In active amlodipine 10 mg tablet RxNorm: 508579 1 Tablet(s) PO QHS for BP--replaces 5mg dose 06/13/2013 10/10/2013 Inactive ondansetron HCl 8 mg tablet RxNorm: 858034 1 Tablet(s) PO Q4H 05/29/2013 No Stop Date Active as needed for nausea ondansetron HCl 8 mg tablet RxNorm: 832138 1 Tablet(s) PO Q4H 05/29/2013 07/30/2013 Inactive as needed for nausea lisinopril 20 mg tablet RxNorm: 727662 1 Tablet(s) PO BID 05/22/2013 07/30/2013 Inactive hydrocodone 10 mg-ac etaminophen 650 mg tablet RxNorm: 875187 1 Tablet(s) PO QID 05/04/2013 06/02/2013 In active TAKE 1 TABLET 3 TIMES A DAY (Appended: Controlled substance eRx refill - RxReferenceNumber: [id number]) hydrocodone 10 mg-ac etaminophen 650 mg tablet RxNorm: 538078 1 Tablet(s) PO QID 04/03/2013 05/02/2013 In active TAKE 1 TABLET 3 TIMES A DAY (Appended: Controlled substance eRx refill - RxReferenceNumber: [id number]) Reglan 5 mg tablet RxNorm: 453358 5 Tablet(s) PO AC & HS 03/30/2013 07/27/2013 Inactive Diflucan 100 mg tablet RxNorm: 568034 1 Tablet(s) PO QD 03/10/2013 03/16/2013 Inactive hydrocodone 10 mg-ac etaminophen 650 mg tablet RxNorm: 075913 1 Tablet(s) PO QID 02/22/2013 03/23/2013 In active TAKE 1 TABLET 3 TIMES A DAY (Appended: Controlled substance eRx refill - RxReferenceNumber: [id number]) Carafate 1 gram tablet RxNorm: 953673 1 Tablet(s) PO AC & HS 02/21/2013 07/26/2013 Inactive Lyrica 100 mg capsule RxNorm: 363710 1 Capsule(s) PO BID 02/21/2013 03/29/2013 Inactive Lyrica 150 mg capsule RxNorm: 771463 1 Capsule(s) PO QHS 02/14/2013 02/20/2013 Inactive hydrocodone 10 mg-ac etaminophen 650 mg tablet RxNorm: 849191 1 Tablet(s) PO QID 01/16/2013 02/14/2013 In active TAKE 1 TABLET 3 TIMES A DAY (Appended: Controlled substance eRx refill - RxReferenceNumber: [id number]) Lovaza 1 gram capsule RxNorm: 599204 3 Capsule(s) PO BID for Triglycerides 12/29/2012 04/27/2013 In active Lipitor 40 mg tablet RxNorm: 527701 1 Tablet(s) PO QD for chol 12/29/2012 04/27/2013 Inactive amlodipine 10 mg tablet RxNorm: 439003 1 Tablet(s) PO QHS for BP--replaces 5mg dose 12/29/2012 04/27/2013 Inactive Levemir Flexpen 100 unit/mL (3 mL) solution subcutaneous insulin pen RxNorm: 733924 75 Unit(s) SQ BID 12/29/2012 03/14/2014 Inactive fluconazole 150 mg t ablet RxNorm: 638240 1 Tablet(s) PO QD 12/16/2012 12/16/2012 Inactive hydrocodone 10 mg-ac etaminophen 650 mg tablet RxNorm: 974629 1 Tablet(s) PO QID 12/14/2012 01/12/2013 In active TAKE 1 TABLET 3 TIMES A DAY (Appended: Controlled substance eRx refill - RxReferenceNumber: [id number]) hydrocodone-acetamin ophen 10-650 mg tablet RxNorm: 678225 1 Tablet(s) PO QID 11/14/2012 12/13/2012 In active TAKE 1 TABLET 3 TIMES A DAY (Appended: Controlled substance eRx refill - RxReferenceNumber: [id number]) hydrocodone-acetamin ophen 10-650 mg tablet RxNorm: 205924 1 Tablet(s) PO QID 10/11/2012 11/09/2012 In active TAKE 1 TABLET 3 TIMES A DAY (Appended: Controlled substance eRx refill - RxReferenceNumber: [id number]) hydrocodone-acetamin ophen 10-650 mg tablet RxNorm: 422735 1 Tablet(s) PO QID 09/06/2012 10/05/2012 In active TAKE 1 TABLET 3 TIMES A DAY (Appended: Controlled substance eRx refill - RxReferenceNumber: [id number]) meclizine 25 mg tablet RxNorm: 6907988 1 Tablet(s) PO QID 09/05/2012 No Stop Date Active prn dizziness hydrocodone-acetamin ophen 10-650 mg tablet RxNorm: 062800 1 Tablet(s) PO QID 08/03/2012 09/01/2012 In active TAKE 1 TABLET 3 TIMES A DAY (Appended: Controlled substance eRx refill - RxReferenceNumber: [id number]) hydrocodone-acetamin ophen 10-650 mg tablet RxNorm: 801248 1 Tablet(s) PO QID 06/29/2012 07/28/2012 In active TAKE 1 TABLET 3 TIMES A DAY (Appended: Controlled substance eRx refill - RxReferenceNumber: [id number]) Levaquin 500 mg tablet RxNorm: 435883 1 Tablet(s) PO QD 06/22/2012 07/05/2012 Inactive meclizine 25 mg tablet RxNorm: 3612721 1 Tablet(s) PO QID 05/30/2012 No Stop Date Active prn dizziness Cymbalta 60 mg Capsu le, delayed release RxNorm: 193765 1 Capsule(s) PO QD 05/25/2012 08/22/2012 In active hydrocodone-acetamin ophen 10-650 mg tablet RxNorm: 373757 1 Tablet(s) PO QID 05/25/2012 06/23/2012 In active TAKE 1 TABLET 3 TIMES A DAY (Appended: Controlled substance eRx refill - RxReferenceNumber: [id number]) Lovaza 1 gram capsule RxNorm: 088429 1 Capsule(s) PO BID 05/25/2012 06/23/2012 Inactive hydrochlorothiazide 25 mg tablet RxNorm: 655798 1 Tablet(s) PO QD 05/25/2012 12/20/2012 Inactive pantoprazole 40 mg t ablet,delayed release RxNorm: 611999 1 Tablet(s) PO QD 05/25/2012 12/20/2012 In active Levemir Flexpen 100 unit/mL (3 mL) Sub-Q Insulin Pen RxNorm: 293779 65 Unit(s) SQ BID 04/22/2012 07/20/2012 Inactive Zofran 4 mg tablet RxNorm: 492097 1 Tablet(s) PO Q4H 04/14/2012 04/13/2012 Inactive prn nausea/vomiting hydrocodone-acetamin ophen 10-650 mg Tab RxNorm: 267324 1 Tablet(s) PO QID 04/14/2012 05/13/2012 In active TAKE 1 TABLET 3 TIMES A DAY (Appended: Controlled substance eRx refill - RxReferenceNumber: [id number]) Cymbalta 60 mg Capsu le, delayed release RxNorm: 200165 1 Capsule(s) PO QD Pa tiealbert needs labs and then appointment before further refills 04/07/2012 05/06/2012 Inactive Diflucan 100 mg Tab RxNorm: 071113 1 Tablet(s) PO QD 04/05/2012 04/11/2012 Inactive One tablet daily as needed amlodipine 5 mg Tab RxNorm: 208520 1 Tablet(s) PO QD 03/22/2012 12/28/2012 Inactive hydrocodone-acetamin ophen 10-650 mg Tab RxNorm: 339745 1 Tablet(s) PO QID 03/10/2012 04/08/2012 In active TAKE 1 TABLET 3 TIMES A DAY (Appended: Controlled substance eRx refill - RxReferenceNumber: [id number]) Zofran 4 mg Tab RxNorm: 595124 1 Tablet(s) PO Q4H 02/16/2012 No Stop Date Active prn nausea/vomiting Levemir Flexpen 100 unit/mL (3 mL) Sub-Q Insulin Pen RxNorm: 166997 80 Unit Dose SQ BID 01/28/2012 No Stop Date Active Cymbalta 60 mg Capsu le, delayed release RxNorm: 219820 1 Capsule(s) PO QD 01/28/2012 02/26/2012 In active Novolog 100 unit/mL Sub-Q RxNorm: 285290 5 Unit(s) SQ TID 01/28/2012 No Stop Date Active Zofran 4 mg Tab RxNorm: 974916 1 Tablet(s) PO Q4H 12/03/2011 02/15/2012 Inactive prn nausea/vomiting Diflucan 100 mg Tab RxNorm: 326706 1 Tablet(s) PO QD 11/24/2011 11/30/2011 Inactive One tablet daily as needed Diflucan 100 mg Tab RxNorm: 656004 1 Tablet(s) PO QD 11/24/2011 11/23/2011 Inactive One tablet daily as needed Diflucan 100 mg Tab RxNorm: 962550 1 Tablet(s) PO QD 11/23/2011 11/23/2011 Inactive One tablet daily as needed hydrocodone-acetamin ophen 10-650 mg Tab RxNorm: 280261 1 Tablet(s) PO QID 11/12/2011 12/11/2011 In active TAKE 1 TABLET 3 TIMES A DAY (Appended: Controlled substance eRx refill - RxReferenceNumber: [id number]) meclizine 25 mg Tab RxNorm: 3278997 1 Tablet(s) PO QID 10/27/2011 No Stop Date Active prn dizziness hydrocodone-acetamin ophen 10-650 mg Tab RxNorm: 219799 1 Tablet(s) PO QID 10/12/2011 11/10/2011 In active TAKE 1 TABLET 3 TIMES A DAY (Appended: Controlled substance eRx refill - RxReferenceNumber: [id number]) ondansetron HCl 8 mg tablet RxNorm: 662658 1 Tablet(s) PO Q4H 08/26/2011 No Stop Date Active as needed for nausea pantoprazole 40 mg T ab, Delayed Release RxNorm: 998145 1 Tablet(s) PO QD 08/24/2011 02/19/2012 In active meclizine 25 mg Tab RxNorm: 1854784 1 Tablet(s) PO QID 08/20/2011 No Stop Date Active prn dizziness hydrocodone-acetamin ophen 10-650 mg Tab RxNorm: 147830 1 Tablet(s) PO QID 08/05/2011 09/03/2011 In active TAKE 1 TABLET 3 TIMES A DAY (Appended: Controlled substance eRx refill - RxReferenceNumber: [id number]) ondansetron HCl 8 mg Tab RxNorm: 625684 1 Tablet(s) PO Q4H 07/16/2011 No Stop Date Active as needed for nausea hydrocodone-acetamin ophen 10-650 mg Tab RxNorm: 999418 1 Tablet(s) PO QID 07/06/2011 08/04/2011 In active TAKE 1 TABLET 3 TIMES A DAY (Appended: Controlled substance eRx refill - RxReferenceNumber: [id number]) Reglan 10 mg Tab RxNorm: 999530 1 Tablet(s) PO AC & HS 07/01/2011 No Stop Date Active q Am and q evening meal hydrocodone-acetamin ophen 10-650 mg Tab RxNorm: 066636 1 Tablet(s) PO TID 06/04/2011 07/05/2011 In active TAKE 1 TABLET 3 TIMES A DAY (Appended: Controlled substance eRx refill - RxReferenceNumber: [id number]) meclizine 25 mg Tab RxNorm: 8802960 1 Tablet(s) PO QID 05/26/2011 No Stop Date Active prn dizziness lisinopril 20 mg tablet RxNorm: 282075 1 Tablet(s) PO BID 04/13/2011 08/10/2011 Inactive meclizine 25 mg Tab RxNorm: 7158273 1 Tablet(s) PO QID prn dizziness 04/01/2011 No Stop Date Active ondansetron HCl 8 mg Tab RxNorm: 300302 1 Tablet(s) PO Q4H as needed for nausea 03/25/2011 No Stop Date Active amlodipine 5 mg Tab RxNorm: 317657 1 Tablet(s) PO QD 03/12/2011 10/07/2011 Inactive hydrochlorothiazide 25 mg Tab RxNorm: 389275 1 Tablet(s) PO QD 03/12/2011 10/07/2011 Inactive hydrocodone-acetamin ophen 10-650 mg Tab RxNorm: 799529 1 Tablet(s) PO TID TA KE 1 TABLET 3 TIMES A DAY (Appended: Controlled substance eRx refill - RxReferenceNumber: [id number]) 03/05/2011 03/05/2011 Inactive pantoprazole 40 mg T ab, Delayed Release RxNorm: 651709 1 Tablet(s) PO QD 03/02/2011 06/29/2011 In active pantoprazole 40 mg T ab, Delayed Release RxNorm: 951384 1 Tablet(s) PO QD 03/02/2011 03/01/2011 In active meclizine 25 mg Tab RxNorm: 8781700 1 Tablet(s) PO QID prn dizziness 02/18/2011 No Stop Date Active ondansetron HCl 8 mg Tab RxNorm: 668688 1 Tablet(s) PO Q4H as needed for nausea 02/18/2011 03/25/2011 In active hydrocodone-acetamin ophen 10-650 mg Tab RxNorm: 759127 1 Tablet(s) PO TID TA KE 1 TABLET 3 TIMES A DAY (Appended: Controlled substance eRx refill - RxReferenceNumber: [id number]) 02/04/2011 03/04/2011 Inactive Cipro 500 mg Tab RxNorm: 671644 1 Tablet(s) PO BID delivery 01/20/2011 01/29/2011 Inactive ondansetron HCl 8 mg Tab RxNorm: 463258 1 Tablet(s) PO Q4H as needed for nausea 01/15/2011 No Stop Date Active Cymbalta 30 mg Cap RxNorm: 145762 1 Capsule(s) PO QD 12/01/2010 No Stop Date Active Diflucan 100 mg Tab RxNorm: 713208 1 Tablet(s) PO QD One tablet daily as ne eded 11/12/2010 11/14/2010 Inactive metformin 1,000 mg Tab RxNorm: 650617 1 Tablet(s) PO BID Needs lab the end of October 2010 10/28/2010 01/14/2011 Inactive hydrocodone-acetamin ophen 10-650 mg Tab RxNorm: 769677 1 Tablet(s) PO TID TA KE 1 TABLET 3 TIMES A DAY (Appended: Controlled substance eRx refill - RxReferenceNumber: [id number]) 10/15/2010 10/27/2010 Inactive cefdinir 300 mg Cap RxNorm: 371924 1 Capsule(s) PO BID 10/15/2010 10/24/2010 Inactive hydrocodone-acetamin ophen 10-650 mg Tab RxNorm: 809285 1 Tablet(s) PO TID TA KE 1 TABLET 3 TIMES A DAY (Appended: Controlled substance eRx refill - RxReferenceNumber: [id number]) 10/13/2010 11/11/2010 Inactive hydrocodone-acetamin ophen 10-650 mg Tab RxNorm: 574536 1 Tablet(s) PO TID 09/19/2010 10/18/2010 In active Diflucan 100 mg Tab RxNorm: 503388 1 Tablet(s) PO QD 08/26/2010 08/28/2010 Inactive Prilosec 40 mg Cap RxNorm: 131215 1 Capsule(s) PO QD 08/25/2010 01/14/2011 Inactive Protonix 40 mg Tab RxNorm: 517470 1 Tablet(s) PO QAM 08/21/2010 08/24/2010 Inactive hydrocodone-acetamin ophen 10-650 mg Tab RxNorm: 557086 1 Tablet(s) PO TID TA KE 1 TABLET 3 TIMES A DAY (Appended: Controlled substance eRx refill - RxReferenceNumber: [id number]) 08/21/2010 09/19/2010 Inactive hydrocodone-acetamin ophen 10-650 mg Tab RxNorm: 705158 1 Tablet(s) PO TID 08/21/2010 09/16/2010 In active Lisinopril 20 mg Tab RxNorm: 355714 1 Tablet(s) PO BID 08/20/2010 11/17/2010 Inactive Hydrocodone-Acetamin ophen 10-650 mg Tab RxNorm: 123784 Tablet(s) PO TAKE 1 T ABLET 3 TIMES A DAY (Appended: Controlled substance eRx refill - RxReferenceNumber: [id number]) 07/23/2010 08/20/2010 Inactive Hydrocodone-Acetamin ophen 10-650 mg Tab RxNorm: 771253 1 Tablet(s) PO TID 05/27/2010 07/23/2010 In active Phenergan 25 mg Tab RxNorm: 963043 1 Tablet(s) PO QHS and q4hrs prn 05/08/2010 No Stop Date Active Hydrocodone-Acetamin ophen 10-650 mg Tab RxNorm: 003089 1 Tablet(s) PO TID 04/23/2010 05/22/2010 In active Hydrocodone-Acetamin ophen 10-650 mg Tab RxNorm: 284881 1 Tablet(s) PO TID 03/26/2010 04/22/2010 In active cefdinir 300 mg Cap RxNorm: 282775 1 Capsule(s) PO BID 02/10/2010 02/19/2010 Inactive Hydrocodone-Acetamin ophen 10-650 mg Tab RxNorm: 948709 1 Tablet(s) PO TID 01/28/2010 02/26/2010 In active lisinopril 20 mg tablet RxNorm: 847964 1 Tablet(s) PO QD No Start Date Active Reglan 10 mg tablet RxNorm: 919693 1 Tablet(s) PO QID before meals and at b edtime No Start Date Active aspirin 81 mg tablet RxNorm: 957299 1 Tablet(s) PO QD No Start Date Active Carafate 1 gram tablet RxNorm: 948934 1 Tablet(s) PO QID before meals and at b edtime No Start Date Active Reglan 5 mg tablet RxNorm: 445223 1 Tablet(s) PO QID before meals and at b edtime No Start Date Active Reglan 10 mg Tab RxNorm: 858578 1 Tablet(s) PO BID q Am and q evening me al No Start Date 05/20/2010 Inactive Zofran 4 mg Tab RxNorm: 967901 1 Tablet(s) PO Q4H prn nausea/vomiting No Start Date 12/02/2011 Inactive aspirin 81 mg tablet RxNorm: 916107 1 Tablet(s) PO QD No Start Date 02/13/2013 Inactive Colace 100 mg Cap RxNorm: 0940689 2 Capsule(s) PO BID No Start Date 07/30/2013 Inactive omeprazole 40 mg Cap , Delayed Release RxNorm: 506917 1 Tablet(s) PO QD No Start Date 03/01/2011 Inactive metformin 1,000 mg Tab RxNorm: 805881 1 Tablet(s) PO BID No Start Date 10/27/2010 Inactive Novolog Flexpen 100 unit/mL Sub-Q RxNorm: 0159160 Milliliter(s) SQ 5un its before lunch and dinner No Start Date 01/16/2013 Inactive Novolog 100 unit/mL Sub-Q RxNorm: 461245 5 Unit(s) SQ TID No Start Date 01/14/2011 Inactive Cymbalta 60 mg Cap RxNorm: 613639 1 Capsule(s) PO QD No Start Date 01/27/2012 Inactive ondansetron HCl 8 mg Tab RxNorm: 553754 1 Tablet(s) PO Q4H as needed for nausea No Start Date 01/14/2011 Inactive Plavix 75 mg tablet RxNorm: 944329 1 Tablet(s) PO QD No Start Date 07/30/2013 Inactive Levemir Flexpen 100 unit/mL (3 mL) Sub-Q Insulin Pen RxNorm: 183440 80 Unit Dose SQ BID No Start Date 01/27/2012 Inactive Zofran 8 mg tablet RxNorm: 257126 1 Tablet(s) PO prn N/V No Start Date Active codeine-guaifenesin 10 mg-100 mg/5 mL Oral Liquid RxNorm: 513888 1 Teaspoon(s) PO Q4-6 H No Start Date 04/09/2010 Inactive Colace 100 mg capsule RxNorm: 3058560 2 Capsule(s) PO QD No Start Date 07/30/2013 Inactive Cheratussin AC 10 mg -100 mg/5 mL Oral Liquid RxNorm: 348738 1 Teaspoon(s) PO Q4-6 H No Start Date 04/09/2010 Inactive Gemfibrozil 600 mg Tab RxNorm: 609770 1 Tablet(s) PO BID No Start Date 01/14/2011 Inactive Cymbalta 30 mg Cap RxNorm: 409366 1 Capsule(s) PO QD No Start Date 11/30/2010 Inactive Lisinopril 20 mg Tab RxNorm: 267947 1 Tablet(s) PO BID No Start Date 08/20/2010 Inactive Phenergan 25 mg Tab RxNorm: 158780 1 Tablet(s) PO Q6H take 1 tablet (25 mg) by oral route every 6 hours as needed No Start Date 01/14/2011 Inactive Reglan 10 mg tablet RxNorm: 110489 1 Tablet(s) PO QID No Start Date 03/29/2013 Inactive Hydrocodone-Acetamin ophen 10-650 mg Tab RxNorm: 240402 Tablet(s) PO PRN No Start Date 04/09/2010 Inactive Restasis 0.05 % Eye Dropperette RxNorm: 698801 OPH As directed No Start Date 06/21/2012 Inactive hydrochlorothiazide 25 mg Tab RxNorm: 294836 1 Tablet(s) PO QD No Start Date 03/11/2011 Inactive lisinopril 20 mg Tab RxNorm: 422109 1 Tablet(s) PO QD No Start Date 04/12/2011 Inactive Miralax 17 gram/dose Oral Powder RxNorm: 471745 PO BID No Start Date 06/21/2012 Inactive hydrochlorothiazide 25 mg Tab RxNorm: 861017 1 Tablet(s) PO QAM No Start Date 01/18/2011 Inactive Protonix 40 mg Tab RxNorm: 911007 1 Tablet(s) PO QAM No Start Date 08/20/2010 Inactive Plavix 75 mg tablet RxNorm: 468251 1 Tablet(s) PO QD No Start Date 02/13/2013 Inactive meclizine 25 mg Tab RxNorm: 4715251 1 Tablet(s) PO QID prn dizziness No Start Date 02/17/2011 Inactive Levemir Flexpen 100 unit/mL (3 mL) solution subcutaneous insulin Pen RxNorm: 098868 60 Unit(s) SQ BID No Start Date 03/13/2014 Inactive amlodipine 5 mg Tab RxNorm: 652193 1 Tablet(s) PO QD No Start Date 03/11/2011 Inactive Lantus 100 unit/mL S ub-Q RxNorm: 488492 60 Unit(s) SQ BID No Start Date 04/10/2010 Inactive Phenergan 25 mg Tab RxNorm: 236535 1 Tablet(s) PO QHS and q4hrs prn No Start Date 05/07/2010 Inactive hydrocodone 10 mg-ac etaminophen 325 mg tablet RxNorm: 770023 1 Tablet(s) PO QID No Start Date 01/14/2014 Inactive Levemir Flexpen 100 unit/mL (3 mL) Sub-Q Insulin Pen RxNorm: 176575 65 Unit(s) SQ BID No Start Date 04/21/2012 Inactive Medication Administered No Medication Administered data Immunizations No Immunization data Assessments Condition Codes Effectiv e Dates HYPERTENSION ICD-9: 401.9 02/12/2014 EDEMA ICD-9: 782.3 02/05 Non-compliant patient ICD-9: V15.81 11/14/2013 PNEUMONIA, ORGANISM ICD-9: 486 11/14/2013 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, 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 07/31/2013 MALAISE AND FATIGUE ICD-9: 780.79 07/31/2013 HYPERLIPIDEMIA NEC/NOS ICD-9: 272.4 07/31/2013 COUGH ICD-9: 786.2 07/31 OBSTRUCTIVE SLEEP APNEA ICD-9: 327.23 07/27/2013 DM NEURO MANIF TYPE II ICD-9: 250.60 07/27/2013 CEREBRAL ART OCC W/ INFARCT ICD-9: 434.91 07/27/2013 Neuropathy ICD-9: 355.9 02/21/2013 CVA ICD-9: 436 3 Peptic ulcer disease ICD-9: 533.90 02/21/2013 DYSPEPSIA ICD-9: 536.8 0 02/14/2013 Rectal bleeding ICD-9: 569.3 02/14/2013 DISTURBANCE OF SKIN SENSATION (Paresthesia) ICD-9: 782.0 01/17/2013 Transient ischemic attack ICD-9: 435.9 12/29/2012 Diabetic ulcer of lower extremity IC D-9: 250.80 06/22/2012 URINARY INCONTINENCE ICD-9: 788.30 05/25/2012 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, 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 05/25/2012 Seborrheic keratosis, inflamed ICD-9 : 702.11 08/27/2011 Hyponatremia ICD-9: 276.1 07/01/2011 DIZZINESS/VERTIGO ICD-9: 780.4 04/16/2011 Constipation ICD-9: 564.00 03/24/2011 FX HUMERUS NOS-CLOSED ICD-9: 812.20 02/04/2011 URINARY TRACT INFECTION ICD-9: 599.0 01/20/2011 PYELONEPHRITIS ICD-9: 590.80 01/20/2011 PHARYNGITIS, ACUTE ICD-9: 462 10/15/2010 Self-destructive behavior ICD-9: 300.9 08/26/2010 ABDOMINAL PAIN ICD-9: 789.00 08/26/2010 Vaginal itching ICD-9: 698.1 08/26/2010 Nausea & vomiting ICD-9: 787.01 08/21/2010 VOMITING ALONE ICD-9: 787.03 06/09/2010 NAUSEA ALONE ICD-9: 787.02 05/08/2010 ASTHMA NOS ICD-9: 493.90 01/15/2010 Reason For Visit Reason For Visit Effective Dates Notes blood pressure check 02/12/2014 follow up 02/05/2014 1wk fwup follow up 11/14/2013 ER fwup lab draw 07/31/2013 dyskinesia or tremor 07/27/2013 Request inhaler follow up 05/04/2013 Dis cuss recent sleep study follow up 03/30/[address] [facility] follow up; wants to talk about number of medications she is taking follow up 02/21/2013 Fro m EGD/colonoscopy follow up 02/14/2013 1mo fwup follow up 01/17/2013 2wk fwup paresthesia 12/29/2012 B P this morning 212/91, 151/70 lab draw 12/27/2012 sores 06/22/2012 needs a script for new diabetic meter high blood pressure 05/25/2012 mole check 08/27/2011 to left breast area, had for years but has started changing and itching lab draw 07/29/2011 follow up 07/01/2011 [place] eduled for surgery on right elbow last week with Dr. Bravo, was unable to proceed due to abnormal lab values of Sodium and Chloride. Continues to have intermittant episodes of vomiting. States hasn't been eating much lately, vomiting episodes becoming more frequent. follow up 04/16/2011 2mo fwup follow up 03/24/2011 hos pital fwup follow up 02/04/2011 1wk fwup follow up 01/20/2011 1 d ay recheck follow up 01/19/2011 ER fwup follow up 01/15/2011 2wk hospital fwup hoarseness 10/15/2010 dr he scott follow up 08/26/2010 Abd ominal pain and vomiting. Gets clammy and then hot, followed by vomiting. Last labs showed BS 450's and A1C 11+. Na also low. dizziness 08/21/2010 vomiting 06/09/2010 follow up 05/21/2010 ER fwup , had labs/EKG follow up 05/08/2010 2wk fwup nausea 04/10/2010 to lef t foot--seeing Dr. Nestor scott 02/10/2010 Results Observation Observation Code Item Item Code Result Date FREE T4 83729 FREE T4 1.20 NG/DL 08/01/2013 VITAMIN B 12 FOLIC ACID 65034|43448 VIT B 12 476 PG/ML 08/01/2013 VITAMIN B 12 FOLIC ACID 37814|87135 FOLIC ACID 20.9 NG/ML 08/01/2013 THYROID STIMULATING HORMONE 53938 TSH 0.811 uIU/ML 3 GFR CALC 4675932 GFR AA >60 ML/MIN 07/31/2013 GFR CALC 0505991 GFR NON -AA 56.0L ML/MIN 3 LIPID GROUP [address] 35 MG/DL 07/31/2013 LIPID GROUP 17532 TRIG 280 MG/DL 07/31/2013 LIPID GROUP 33382 TEST L DL 47 MG/DL 07/31/2013 LIPID GROUP 78615 CHOL 138 MG/DL 07/31/2013 LIPID GROUP 41973 RCHOL/ HDL 3.94 RATIO 07/31/2013 COMPLETE BLOOD COUNT 3114576 WBC 8.6 10e9/L 07/31/2013 COMPLETE BLOOD COUNT 2158332 RBC 3.99 10e12/L 3 COMPLETE BLOOD COUNT 5869272 HGB 11.6 g/dL 07/31/2013 COMPLETE BLOOD COUNT 6918692 HCT DET 35.0 % 07/31/2013 COMPLETE BLOOD COUNT 1088186 MCV 87.7 fL 07/31/2013 COMPLETE BLOOD COUNT 8407008 MCH 29.1 pg 07/31/2013 COMPLETE BLOOD COUNT 5818521 MCHC 33.1 g/dL 07/31/2013 COMPLETE BLOOD COUNT 1340245 PLT 278 10e9/L 07/31/2013 COMPLETE BLOOD COUNT 6492958 MPV 9.8 fL 07/31/2013 COMPLETE BLOOD COUNT 9578074 JOSSE % 68.0 % 07/31/2013 COMPLETE BLOOD COUNT 3494202 LY % 23.5 % 07/31/2013 COMPLETE BLOOD COUNT 5047131 MON % 6.9 % 07/31/2013 COMPLETE BLOOD COUNT 4539485 EOS % 1.4 % 07/31/2013 COMPLETE BLOOD COUNT 0780969 BASO % 0.2 % 07/31/2013 COMPLETE BLOOD COUNT 0745710 RDW 12.6 % 07/31/2013 COMPLETE BLOOD COUNT 0454784 ABS JOSSE 5.85 10e9/L 07/31/2013 COMPLETE BLOOD COUNT 5015392 ABS LYMPH 2.02 10e9/L 07/31/2013 COMPLETE BLOOD COUNT 2042263 ABS MONO 0.59 10e9/L 07/31/2013 COMPLETE BLOOD COUNT 4185541 ABS EOS 0.12 10e9/L 07/31/2013 COMPLETE BLOOD COUNT 9104906 ABS BASO 0.02 10e9/L 07/31/2013 COMPLETE BLOOD COUNT 5134960 RDW-SD 39.5 fL 07/31/2013 COMPREHENSIVE METABOLIC 86257 AST 8 U/L 07/31/2013 COMPREHENSIVE METABOLIC 87769 ALT 8 IU/L 07/31/2013 COMPREHENSIVE METABOLIC 78478 BUN 23 MG/DL 07/31/2013 COMPREHENSIVE METABOLIC 24940 ALBUMIN 3.5 GM/DL 07/31/2013 COMPREHENSIVE METABOLIC 06146 CHLORIDE 97 MMOL/L 07/31/2013 COMPREHENSIVE METABOLIC 60738 BILI TOT 0.4 MG/DL 07/31/2013 COMPREHENSIVE METABOLIC 53064 ALK PHOS 81 U/L 07/31/2013 COMPREHENSIVE METABOLIC 26813 SODIUM 133 MMOL/L 07/31/2013 COMPREHENSIVE METABOLIC 72357 CREATININE 0.99 MG/DL 07/31/2013 COMPREHENSIVE METABOLIC 19911 CALCIUM 9.2 MG/DL 07/31/2013 COMPREHENSIVE METABOLIC 95673 POTASSIUM 5.1 MMOL/L 07/31/2013 COMPREHENSIVE METABOLIC 45655 PROT TOT 5.9 GM/DL 07/31/2013 COMPREHENSIVE METABOLIC 39015 Glucose 411 MG/DL 07/31/2013 COMPREHENSIVE METABOLIC 79028 BICARB 33 MMOL/L 07/31/2013 COMPREHENSIVE METABOLIC 89345 ANION GAP 3 MEQ/L 07/31/2013 HEMOGLOBIN A1C (GLYCOSYLATED) 0369875 A1C HPLC 94362-6 11.8 % 07/31/2013 HEMOGLOBIN A1C (GLYCOSYLATED) 6191460 A1C HPLC 29076-4 13.5 % 12/27/2012 COMPLETE BLOOD COUNT 2411759 WBC 5.5 10e9/L 12/27/2012 COMPLETE BLOOD COUNT 3157455 RBC 4.61 10e12/L 3 COMPLETE BLOOD COUNT 2051726 HGB 13.6 g/dL 12/27/2012 COMPLETE BLOOD COUNT 7769839 HCT DET 39.2 % 12/27/2012 COMPLETE BLOOD COUNT 5692857 MCV 85.0 fL 12/27/2012 COMPLETE BLOOD COUNT 9539462 MCH 29.5 pg 12/27/2012 COMPLETE BLOOD COUNT 3747102 MCHC 34.7 g/dL 12/27/2012 COMPLETE BLOOD COUNT 1823283 PLT 177 10e9/L 12/27/2012 COMPLETE BLOOD COUNT 8175387 MPV 10.1 fL 12/27/2012 COMPLETE BLOOD COUNT 0684374 JOSSE % 53.7 % 12/27/2012 COMPLETE BLOOD COUNT 7920590 LY % 35.9 % 12/27/2012 COMPLETE BLOOD COUNT 2132364 MON % 8.0 % 12/27/2012 COMPLETE BLOOD COUNT 8055146 EOS % 2.0 % 12/27/2012 COMPLETE BLOOD COUNT 4262196 BASO % 0.4 % 12/27/2012 COMPLETE BLOOD COUNT 0609746 RDW 13.3 % 12/27/2012 COMPLETE BLOOD COUNT 4664158 ABS JOSSE 2.95 10e9/L 12/27/2012 COMPLETE BLOOD COUNT 2267171 ABS LYMPH 1.97 10e9/L 12/27/2012 COMPLETE BLOOD COUNT 9145365 ABS MONO 0.44 10e9/L 12/27/2012 COMPLETE BLOOD COUNT 4821104 ABS EOS 0.11 10e9/L 12/27/2012 COMPLETE BLOOD COUNT 8347952 ABS BASO 0.02 10e9/L 12/27/2012 COMPLETE BLOOD COUNT 0074725 RDW-SD 40.9 fL 12/27/2012 COMPREHENSIVE METABOLIC 31764 AST 9 U/L 12/27/2012 COMPREHENSIVE METABOLIC 51826 ALT 14 IU/L 12/27/2012 COMPREHENSIVE METABOLIC 43276 BUN 19 MG/DL 12/27/2012 COMPREHENSIVE METABOLIC 54686 ALBUMIN 3.9 GM/DL 12/27/2012 COMPREHENSIVE METABOLIC 81530 CHLORIDE 99 MMOL/L 12/27/2012 COMPREHENSIVE METABOLIC 27658 BILI TOT 0.5 MG/DL 12/27/2012 COMPREHENSIVE METABOLIC 75478 ALK PHOS 70 U/L 12/27/2012 COMPREHENSIVE METABOLIC 20498 SODIUM 135 MMOL/L 12/27/2012 COMPREHENSIVE METABOLIC 28574 CREATININE 0.97 MG/DL 12/27/2012 COMPREHENSIVE METABOLIC 62503 CALCIUM 9.8 MG/DL 12/27/2012 COMPREHENSIVE METABOLIC 66752 POTASSIUM 4.8 MMOL/L 12/27/2012 COMPREHENSIVE METABOLIC 38319 PROT TOT 6.4 GM/DL 12/27/2012 COMPREHENSIVE METABOLIC 17090 Glucose 263 MG/DL 12/27/2012 COMPREHENSIVE METABOLIC 43512 BICARB 30 MMOL/L 12/27/2012 COMPREHENSIVE METABOLIC 56892 ANION GAP 6 MEQ/L 12/27/2012 THYROID STIMULATING HORMONE 32948 TSH 1.858 uIU/ML 3 LIPID GROUP [address] 47 MG/DL 12/27/2012 LIPID GROUP 28886 TRIG 703 MG/DL 12/27/2012 LIPID GROUP 34080 TEST L DL HI TRIG MG/DL 12/28/19 13 LIPID GROUP 38394 CHOL 327 MG/DL 12/27/2012 LIPID GROUP 38081 RCHOL/ HDL 6.96 RATIO 12/27/2012 FREE T4 51011 FREE T4 1.29 NG/DL 12/27/2012 GFR CALC 4336690 GFR AA >60 ML/MIN 12/27/2012 GFR CALC 2130481 GFR NON -AA 57.0L ML/MIN 3 FREE T4 68510 FREE T4 1.3 ng/dL 05/26/2012 COMPREHENSIVE METABOLIC 48902 AST 10 U/L 05/25/2012 COMPREHENSIVE METABOLIC 59925 ALT 11 IU/L 05/25/2012 COMPREHENSIVE METABOLIC 17248 BUN 16 MG/DL 05/25/2012 COMPREHENSIVE METABOLIC 30052 ALBUMIN 3.9 GM/DL 05/25/2012 COMPREHENSIVE METABOLIC 68930 CHLORIDE 100 MMOL/L 05/25/2012 COMPREHENSIVE METABOLIC 43528 BILI TOT 0.4 MG/DL 05/25/2012 COMPREHENSIVE METABOLIC 74996 ALK PHOS 78 U/L 05/25/2012 COMPREHENSIVE METABOLIC 45752 SODIUM 137 MMOL/L 05/25/2012 COMPREHENSIVE METABOLIC 72874 CREATININE 0.88 MG/DL 05/25/2012 COMPREHENSIVE METABOLIC 83134 CALCIUM 9.4 MG/DL 05/25/2012 COMPREHENSIVE METABOLIC 97987 POTASSIUM 4.2 MMOL/L 05/25/2012 COMPREHENSIVE METABOLIC 85676 PROT TOT 6.2 GM/DL 05/25/2012 COMPREHENSIVE METABOLIC 72612 Glucose 311 MG/DL 05/25/2012 COMPREHENSIVE METABOLIC 45179 BICARB 28 MMOL/L 05/25/2012 COMPREHENSIVE METABOLIC 70908 ANION GAP 9 MEQ/L 05/25/2012 HEPATIC FUNCTION PANEL A 21470 BILI DIR 0.1 MG/DL 05/25/2012 GFR CALC 2196734 GFR AA >60 ML/MIN 05/25/2012 GFR CALC 4110094 GFR NON -AA >60 ML/MIN 05/25/2012 LIPID GROUP [address] 43 MG/DL 05/25/2012 LIPID GROUP 81426 TRIG 557 MG/DL 05/25/2012 LIPID GROUP 94307 TEST L DL HI TRIG MG/DL 05/25/20 12 LIPID GROUP 78322 CHOL 288 MG/DL 05/25/2012 LIPID GROUP 76298 RCHOL/ HDL 6.70 RATIO 05/25/2012 COMPLETE BLOOD COUNT 26157 WBC 5.8 10e9/L 05/25/2012 COMPLETE BLOOD COUNT 69440 RBC 4.50 10e12/L 2 COMPLETE BLOOD COUNT 97174 HGB 13.2 g/dL 05/25/2012 COMPLETE BLOOD COUNT 11030 HCT DET 39.4 % 05/25/2012 COMPLETE BLOOD COUNT 91677 MCV 87.6 fL 05/25/2012 COMPLETE BLOOD COUNT 22965 MCH 29.3 pg 05/25/2012 COMPLETE BLOOD COUNT 36105 MCHC 33.5 g/dL 05/25/2012 COMPLETE BLOOD COUNT 84430 PLT 188 10e9/L 05/25/2012 COMPLETE BLOOD COUNT 49267 MPV 9.9 fL 05/25/2012 COMPLETE BLOOD COUNT 88453 JOSSE % 50.0 % 05/25/2012 COMPLETE BLOOD COUNT 43955 LY % 39.5 % 05/25/2012 COMPLETE BLOOD COUNT 99249 MON % 8.4 % 05/25/2012 COMPLETE BLOOD COUNT 17419 EOS % 1.9 % 05/25/2012 COMPLETE BLOOD COUNT 97198 BASO % 0.2 % 05/25/2012 COMPLETE BLOOD COUNT 35338 RDW 12.9 % 05/25/2012 COMPLETE BLOOD COUNT 66978 ABS JOSSE 2.90 10e9/L 05/25/2012 COMPLETE BLOOD COUNT 17088 ABS LYMPH 2.29 10e9/L 05/25/2012 COMPLETE BLOOD COUNT 53837 ABS MONO 0.49 10e9/L 05/25/2012 COMPLETE BLOOD COUNT 02774 ABS EOS 0.11 10e9/L 05/25/2012 COMPLETE BLOOD COUNT 53274 ABS BASO 0.01 10e9/L 05/25/2012 COMPLETE BLOOD COUNT 56427 RDW-SD 39.8 fL 05/25/2012 GLYCOSYLATED HEMOGLOBIN TEST 34627 A1C HPLC 46963-6 11.8 % 2 THYROID STIMULATING HORMONE 94289 TSH 2.267 uIU/ML 2 COMPREHENSIVE METABOLIC 93099 AST 11 U/L 07/29/2011 COMPREHENSIVE METABOLIC 52543 ALT 11 IU/L 07/29/2011 COMPREHENSIVE METABOLIC 19800 BUN 25 MG/DL 07/29/2011 COMPREHENSIVE METABOLIC 51144 ALBUMIN 3.8 GM/DL 07/29/2011 COMPREHENSIVE METABOLIC 73188 CHLORIDE 97 MMOL/L 07/29/2011 COMPREHENSIVE METABOLIC 30170 BILI TOT 0.5 MG/DL 07/29/2011 COMPREHENSIVE METABOLIC 51540 ALK PHOS 44 U/L 07/29/2011 COMPREHENSIVE METABOLIC 77305 SODIUM 137 MMOL/L 07/29/2011 COMPREHENSIVE METABOLIC 77169 CREATININE 0.97 MG/DL 07/29/2011 COMPREHENSIVE METABOLIC 16056 CALCIUM 9.3 MG/DL 07/29/2011 COMPREHENSIVE METABOLIC 84592 POTASSIUM 4.5 MMOL/L 07/29/2011 COMPREHENSIVE METABOLIC 83416 PROT TOT 6.0 GM/DL 07/29/2011 COMPREHENSIVE METABOLIC 29639 Glucose 111 MG/DL 07/29/2011 COMPREHENSIVE METABOLIC 42833 BICARB 33 MMOL/L 07/29/2011 COMPREHENSIVE METABOLIC 69686 ANION GAP 7 MEQ/L 07/29/2011 COMPLETE BLOOD COUNT 71457 WBC 6.8 10e9/L 07/29/2011 COMPLETE BLOOD COUNT 24384 RBC 4.32 10e12/L 1 COMPLETE BLOOD COUNT 79422 HGB 12.8 g/dL 07/29/2011 COMPLETE BLOOD COUNT 23430 HCT DET 37.8 % 07/29/2011 COMPLETE BLOOD COUNT 31258 MCV 87.5 fL 07/29/2011 COMPLETE BLOOD COUNT 34744 MCH 29.6 pg 07/29/2011 COMPLETE BLOOD COUNT 01832 MCHC 33.9 g/dL 07/29/2011 COMPLETE BLOOD COUNT 36963 PLT 195 10e9/L 07/29/2011 COMPLETE BLOOD COUNT 40293 MPV 10.3 fL 07/29/2011 COMPLETE BLOOD COUNT 13132 JOSSE % 63.0 % 07/29/2011 COMPLETE BLOOD COUNT 86038 LY % 27.9 % 07/29/2011 COMPLETE BLOOD COUNT 42685 MON % 8.0 % 07/29/2011 COMPLETE BLOOD COUNT 65123 EOS % 0.7 % 07/29/2011 COMPLETE BLOOD COUNT 99258 BASO % 0.4 % 07/29/2011 COMPLETE BLOOD COUNT 78410 RDW 12.7 % 07/29/2011 COMPLETE BLOOD COUNT 03125 ABS JOSSE 4.28 10e9/L 07/29/2011 COMPLETE BLOOD COUNT 95456 ABS LYMPH 1.90 10e9/L 07/29/2011 COMPLETE BLOOD COUNT 00377 ABS MONO 0.54 10e9/L 07/29/2011 COMPLETE BLOOD COUNT 59747 ABS EOS 0.05 10e9/L 07/29/2011 COMPLETE BLOOD COUNT 10241 ABS BASO 0.03 10e9/L 07/29/2011 COMPLETE BLOOD COUNT 20472 RDW-SD 39.4 fL 07/29/2011 GLYCOSYLATED HEMOGLOBIN TEST 73351 A1C HPLC 55033-9 11.8 % 1 LIPID GROUP [address] 44 MG/DL 07/29/2011 LIPID GROUP 83265 TRIG 401 MG/DL 07/29/2011 LIPID GROUP 64109 TEST L DL HI TRIG MG/DL 07/29/20 11 LIPID GROUP 97328 CHOL 280 MG/DL 07/29/2011 LIPID GROUP 02432 RCHOL/ HDL 6.36 RATIO 07/29/2011 GFR CALC 9657543 GFR AA >60 ML/MIN 07/29/2011 GFR CALC 0824241 GFR NON -AA 58.0L ML/MIN 1 COMPREHENSIVE METABOLIC 50330 AST 11 U/L 06/09/2010 COMPREHENSIVE METABOLIC 86491 ALT 14 IU/L 06/09/2010 COMPREHENSIVE METABOLIC 27616 BUN 20 MG/DL 06/09/2010 COMPREHENSIVE METABOLIC 05209 ALBUMIN 4.1 GM/DL 06/09/2010 COMPREHENSIVE METABOLIC 93234 CHLORIDE 96 MMOL/L 06/09/2010 COMPREHENSIVE METABOLIC 97357 BILI TOT 0.5 MG/DL 06/09/2010 COMPREHENSIVE METABOLIC 17183 ALK PHOS 57 U/L 06/09/2010 COMPREHENSIVE METABOLIC 58917 SODIUM 136 MMOL/L 06/09/2010 COMPREHENSIVE METABOLIC 02784 CREATININE 0.81 MG/DL 06/09/2010 COMPREHENSIVE METABOLIC 65140 CALCIUM 9.6 MG/DL 06/09/2010 COMPREHENSIVE METABOLIC 27211 POTASSIUM 4.6 MMOL/L 06/09/2010 COMPREHENSIVE METABOLIC 89555 PROT TOT 6.6 GM/DL 06/09/2010 COMPREHENSIVE METABOLIC 95249 Glucose 246 MG/DL 06/09/2010 COMPREHENSIVE METABOLIC 42505 BICARB 31 MMOL/L 06/09/2010 COMPREHENSIVE METABOLIC 10747 ANION GAP 9 MEQ/L 06/09/2010 COMPLETE BLOOD COUNT 35686 WBC 9.9 10e9/L 06/09/2010 COMPLETE BLOOD COUNT 05243 RBC 4.79 10e12/L 0 COMPLETE BLOOD COUNT 77229 HGB 14.3 g/dL 06/09/2010 COMPLETE BLOOD COUNT 67397 HCT DET 42.4 % 06/09/2010 COMPLETE BLOOD COUNT 27189 MCV 88.5 fL 06/09/2010 COMPLETE BLOOD COUNT 73562 MCH 29.9 pg 06/09/2010 COMPLETE BLOOD COUNT 31296 MCHC 33.7 g/dL 06/09/2010 COMPLETE BLOOD COUNT 72559 PLT 208 10e9/L 06/09/2010 COMPLETE BLOOD COUNT 11687 MPV 10.1 fL 06/09/2010 COMPLETE BLOOD COUNT 12430 JOSSE % 78.2 % 06/09/2010 COMPLETE BLOOD COUNT 57856 LY % 16.0 % 06/09/2010 COMPLETE BLOOD COUNT 59699 MON % 5.1 % 06/09/2010 COMPLETE BLOOD COUNT 93292 EOS % 0.4 % 06/09/2010 COMPLETE BLOOD COUNT 09469 BASO % 0.3 % 06/09/2010 COMPLETE BLOOD COUNT 65291 RDW 13.0 % 06/09/2010 COMPLETE BLOOD COUNT 09552 ABS JOSSE 7.74 10e9/L 06/09/2010 COMPLETE BLOOD COUNT 68505 ABS LYMPH 1.58 10e9/L 06/09/2010 COMPLETE BLOOD COUNT 17587 ABS MONO 0.50 10e9/L 06/09/2010 COMPLETE BLOOD COUNT 42096 ABS EOS 0.04 10e9/L 06/09/2010 COMPLETE BLOOD COUNT 80150 ABS BASO 0.03 10e9/L 06/09/2010 COMPLETE BLOOD COUNT 03171 RDW-SD 41.2 fL 06/09/2010 GFR CALC 1227232 GFR AA >60 ML/MIN 06/09/2010 GFR CALC 8244206 GFR NON -AA >60 ML/MIN 06/09/2010 Review of Systems System Result Effective Dates Cardiovascular edema Constitutional malaise 1 Constitutional fatigue 1 Respiratory cough 2012 Respiratory dyspnea on exertion 07/31/2013 Neurologic pain, limb Endocrine diabetes mellitus type 2 07/31/2013 Respiratory apneic events 07/31/2013 Endocrine diabetes mellitus type 2 07/27/2013 Endocrine hyperglycemia 07/27/2013 Endocrine hyperlipidemia 07/27/2013 Ears/Nose/Throat/Neck No hearing loss 07/27/2013 Ears/Nose/Throat/Neck No nasal discharge 07/27/2013 Ears/Nose/Throat/Neck No sinus congestion 07/27/2013 Ears/Nose/Throat/Neck No sore throat 07/27/2013 Musculoskeletal muscle weakness 07/27/2013 Hematologic/Lymphatic No abnormal ec chymoses 07/27/2013 Hematologic/Lymphatic No petechiae 07/27/2013 Hematologic/Lymphatic No abnormal bl eeding and bruising 07/27/2013 Hematologic/Lymphatic No anemia 07/27/2013 Hematologic/Lymphatic No lymph node enlargement/mass 07/27/2013 Constitutional fatigue 1 Constitutional weight loss 07/27/2013 Gastrointestinal nausea 07/27/2013 Gastrointestinal vomiting 07/27/2013 Cardiovascular No arrhythmia 07/27/2013 Cardiovascular No chest pain/pressure 07/27/2013 Cardiovascular No edema 07/27/2013 Cardiovascular No exercise intolerance 07/27/2013 Cardiovascular No orthopnea 07/27/2013 Cardiovascular No palpitations 07/27/2013 Respiratory No asthma Respiratory cough 2012 Respiratory No dyspnea 1 Respiratory No pleuritic pain 07/27/2013 Respiratory No productive sputum 07/27/2013 Respiratory No wheezing 07/27/2013 Genitourinary/Nephrology No dysuria 07/27/2013 Genitourinary/Nephrology No nocturia 07/27/2013 Genitourinary/Nephrology No urinary incontinence 07/27/2013 Musculoskeletal No myalgias 07/27/2013 Musculoskeletal No stiffness 07/27/2013 Musculoskeletal No swelling 07/27/2013 Neurologic pain, limb Neurologic weakness 10/12/2012 Dermatologic No rash 12/2012 Dermatologic No scar 12/2012 Psychiatric No anxiety 1 Psychiatric No depression 07/27/2013 Gastrointestinal gastroesophageal reflux 05/04/2013 Gastrointestinal nausea 05/04/2013 Respiratory apneic events 05/04/2013 Constitutional fatigue 0 05/04/2013 Constitutional fatigue 0 03/30/2013 Endocrine diabetes mellitus type 2 03/30/2013 Neurologic pain, limb Cardiovascular edema 03/2013 Cardiovascular hypertension 03/30/2013 Gastrointestinal abdominal pain 02/21/2013 Gastrointestinal dyspepsia 02/21/2013 Gastrointestinal gastroesophageal reflux 02/21/2013 Gastrointestinal No hematemesis 02/21/2013 Gastrointestinal No hematochezia 02/21/2013 Neurologic pain, facial 02/21/2013 Neurologic pain, limb Neurologic pain, limb Neurologic paresthesia 0 01/17/2013 Endocrine diabetes mellitus type 2 01/17/2013 Constitutional fatigue 0 12/29/2012 Cardiovascular hypertension 12/29/2012 Respiratory No asthma Respiratory No cough 04/2013 Neurologic weakness 03/0 04/2013 Psychiatric No anxiety 0 12/29/2012 Psychiatric No depression 12/29/2012 Endocrine diabetes mellitus type 2 12/29/2012 Endocrine hyperlipidemia 12/29/2012 Hematologic/Lymphatic No abnormal ec chymoses 12/29/2012 Hematologic/Lymphatic No petechiae 12/29/2012 Hematologic/Lymphatic No abnormal bl eeding and bruising 12/29/2012 Hematologic/Lymphatic No anemia 12/29/2012 Hematologic/Lymphatic No lymph node enlargement/mass 12/29/2012 Ears/Nose/Throat/Neck No hearing loss 12/29/2012 Ears/Nose/Throat/Neck No nasal discharge 12/29/2012 Ears/Nose/Throat/Neck No sinus congestion 12/29/2012 Ears/Nose/Throat/Neck No sore throat 12/29/2012 Respiratory No dyspnea 0 12/29/2012 Respiratory No pleuritic pain 12/29/2012 Respiratory No productive sputum 12/29/2012 Respiratory No wheezing 12/29/2012 Gastrointestinal No hemorrhoids 12/29/2012 Gastrointestinal No hepatitis 12/29/2012 Gastrointestinal No abdominal pain 12/29/2012 Gastrointestinal No constipation 12/29/2012 Gastrointestinal No diarrhea 12/29/2012 Gastrointestinal No gastroesophageal reflu x 12/29/2012 Gastrointestinal No melena 12/29/2012 Gastrointestinal No nausea 12/29/2012 Gastrointestinal No vomiting 12/29/2012 Genitourinary/Nephrology No dysuria 12/29/2012 Genitourinary/Nephrology No nocturia 12/29/2012 Genitourinary/Nephrology No urinary incontinence 12/29/2012 Musculoskeletal No muscle weakness 12/29/2012 Musculoskeletal No myalgias 12/29/2012 Musculoskeletal No stiffness 12/29/2012 Musculoskeletal No swelling 12/29/2012 Dermatologic No rash 04/2013 Dermatologic No scar 04/2013 Neurologic No dizziness 12/29/2012 Neurologic No headache 0 12/29/2012 Neurologic No neck pain 12/29/2012 Neurologic No syncope Neurologic paresthesia 0 12/29/2012 Endocrine diabetes mellitus type 2 06/22/2012 Endocrine hyperglycemia 06/22/2012 Dermatologic sores 06/22 Musculoskeletal myalgias 05/25/2012 Dermatologic mole change 08/27/2011 Cardiovascular No arrhythmia 07/01/2011 Cardiovascular No chest pain/pressure 07/01/2011 Cardiovascular No edema 07/01/2011 Cardiovascular No exercise intolerance 07/01/2011 Cardiovascular No orthopnea 07/01/2011 Cardiovascular No palpitations 07/01/2011 Respiratory No asthma Respiratory No pleuritic pain 07/01/2011 Respiratory No productive sputum 07/01/2011 Respiratory No cough 04/2011 Respiratory No dyspnea 0 07/01/2011 Respiratory No wheezing 07/01/2011 Gastrointestinal No hemorrhoids 07/01/2011 Gastrointestinal No hepatitis 07/01/2011 Gastrointestinal No abdominal pain 07/01/2011 Gastrointestinal No constipation 07/01/2011 Gastrointestinal No diarrhea 07/01/2011 Gastrointestinal No gastroesophageal reflu x 07/01/2011 Gastrointestinal No melena 07/01/2011 Gastrointestinal No nausea 07/01/2011 Gastrointestinal No vomiting 07/01/2011 Genitourinary/Nephrology No dysuria 07/01/2011 Genitourinary/Nephrology No nocturia 07/01/2011 Genitourinary/Nephrology No urinary incontinence 07/01/2011 Musculoskeletal No muscle weakness 07/01/2011 Musculoskeletal No myalgias 07/01/2011 Musculoskeletal No stiffness 07/01/2011 Musculoskeletal No swelling 07/01/2011 Dermatologic No rash 04/2011 Dermatologic No scar 04/2011 Neurologic No dizziness 07/01/2011 Neurologic No headache 0 07/01/2011 Neurologic No neck pain 07/01/2011 Neurologic No syncope Endocrine diabetes mellitus type 2 07/01/2011 Endocrine hyperglycemia 07/01/2011 Constitutional fatigue 0 07/01/2011 Gastrointestinal dyspepsia 07/01/2011 Neurologic dizziness Endocrine diabetes mellitus type 2 04/16/2011 Endocrine hyperglycemia 04/16/2011 Gastrointestinal nausea 04/16/2011 Cardiovascular No arrhythmia 03/24/2011 Cardiovascular No chest pain/pressure 03/24/2011 Cardiovascular No edema 03/24/2011 Cardiovascular No exercise intolerance 03/24/2011 Cardiovascular No orthopnea 03/24/2011 Cardiovascular No palpitations 03/24/2011 Respiratory No asthma Respiratory No pleuritic pain 03/24/2011 Respiratory No productive sputum 03/24/2011 Respiratory No cough Respiratory No dyspnea 0 03/24/2011 Respiratory No wheezing 03/24/2011 Gastrointestinal No hemorrhoids 03/24/2011 Gastrointestinal No hepatitis 03/24/2011 Gastrointestinal No abdominal pain 03/24/2011 Gastrointestinal No constipation 03/24/2011 Gastrointestinal No diarrhea 03/24/2011 Gastrointestinal No gastroesophageal reflu x 03/24/2011 Gastrointestinal No melena 03/24/2011 Gastrointestinal No nausea 03/24/2011 Gastrointestinal No vomiting 03/24/2011 Genitourinary/Nephrology No dysuria 03/24/2011 Genitourinary/Nephrology No nocturia 03/24/2011 Genitourinary/Nephrology No urinary incontinence 03/24/2011 Musculoskeletal No muscle weakness 03/24/2011 Musculoskeletal No myalgias 03/24/2011 Musculoskeletal No stiffness 03/24/2011 Musculoskeletal No swelling 03/24/2011 Dermatologic No rash Dermatologic No scar Neurologic No dizziness 03/24/2011 Neurologic No headache 0 03/24/2011 Neurologic No neck pain 03/24/2011 Neurologic No syncope Neurologic dizziness Musculoskeletal shoulder pain 02/04/2011 Gastrointestinal abdominal pain 01/20/2011 Neurologic dizziness Gastrointestinal abdominal pain 01/19/2011 Neurologic dizziness Constitutional fatigue 0 01/19/2011 Endocrine diabetes mellitus type 2 01/19/2011 Endocrine diabetes mellitus type 2 01/15/2011 Endocrine hyperglycemia 01/15/2011 Musculoskeletal shoulder pain 01/15/2011 Constitutional No fever 10/15/2010 Constitutional No chills 10/15/2010 Ears/Nose/Throat/Neck nasal discharge 10/15/2010 Ears/Nose/Throat/Neck No otalgia 10/15/2010 Ears/Nose/Throat/Neck No sinusitis 10/15/2010 Ears/Nose/Throat/Neck sore throat 10/15/2010 Respiratory cough 2009 Respiratory No cigarette smoking 10/15/2010 Respiratory asthma 10/15 Respiratory chest congestion 10/15/2010 Respiratory No productive sputum 10/15/2010 Gastrointestinal No diarrhea 10/15/2010 Gastrointestinal No vomiting 10/15/2010 Dermatologic No rash Dermatologic No sores Constitutional No fever 08/26/2010 Constitutional recent illness 08/26/2010 Constitutional chills Ears/Nose/Throat/Neck No otalgia 08/26/2010 Ears/Nose/Throat/Neck No sinusitis 08/26/2010 Ears/Nose/Throat/Neck No sore throat 08/26/2010 Respiratory asthma 08/26 Respiratory No cough 11/2009 Gastrointestinal vomiting 08/26/2010 Gastrointestinal No diarrhea 08/26/2010 Gastrointestinal No constipation 08/26/2010 Gastrointestinal gastroesophageal reflux 08/26/2010 Gastrointestinal No gas and bloating 08/26/2010 Gastrointestinal No hematochezia 08/26/2010 Gastrointestinal nausea 08/26/2010 Genitourinary/Nephrology No urinary frequency 08/26/2010 Genitourinary/Nephrology No urinary incontinence 08/26/2010 Genitourinary/Nephrology No urinary retention/hesitancy 08/26/2010 Genitourinary/Nephrology vaginal discharge 08/26/2010 Psychiatric depression 1 10/26/2009 Psychiatric suicidality 08/26/2010 Gastrointestinal nausea 08/21/2010 Gastrointestinal vomiting 08/21/2010 Endocrine diabetes mellitus type 2 08/21/2010 Constitutional fatigue 1 Neurologic dizziness Cardiovascular No chest pain/pressure 06/09/2010 Cardiovascular No arrhythmia 06/09/2010 Cardiovascular hypertension 06/09/2010 Cardiovascular No syncope 06/09/2010 Constitutional recent illness 06/09/2010 Constitutional No fever 06/09/2010 Dermatologic No rash Dermatologic No sores Ears/Nose/Throat/Neck No otalgia 06/09/2010 Ears/Nose/Throat/Neck No sore throat 06/09/2010 Gastrointestinal gastroesophageal reflux 06/09/2010 Gastrointestinal vomiting 06/09/2010 Gastrointestinal No diarrhea 06/09/2010 Gastrointestinal No constipation 06/09/2010 Gastrointestinal gas and bloating 06/09/2010 Gastrointestinal No hematochezia 06/09/2010 Respiratory No cough Respiratory No dyspnea 0 05/21/2010 Gastrointestinal No nausea 05/21/2010 Gastrointestinal No vomiting 05/21/2010 Constitutional fatigue 0 05/21/2010 Endocrine diabetes mellitus type 2 05/21/2010 Endocrine hyperglycemia 05/21/2010 Gastrointestinal vomiting 05/08/2010 Gastrointestinal dyspepsia 05/08/2010 Gastrointestinal nausea 05/08/2010 Gastrointestinal constipation 05/08/2010 Gastrointestinal diarrhea 05/08/2010 Endocrine diabetes mellitus type 2 04/10/2010 Endocrine hyperglycemia 04/10/2010 Gastrointestinal abdominal pain 04/10/2010 Gastrointestinal constipation 04/10/2010 Gastrointestinal nausea 04/10/2010 Gastrointestinal vomiting 04/10/2010 Constitutional fatigue 0 04/10/2010 Constitutional weight loss 04/10/2010 Dermatologic sores 04/10 Constitutional No fever 02/10/2010 Cardiovascular No chest pain/pressure 02/10/2010 Cardiovascular No dyspnea 02/10/2010 Respiratory cough 2009 Respiratory No stridor 0 02/10/2010 Respiratory No wheezing 02/10/2010 Respiratory No dyspnea 0 02/10/2010 Gastrointestinal constipation 02/10/2010 Gastrointestinal No diarrhea 02/10/2010 Gastrointestinal No vomiting 02/10/2010 Dermatologic No rash Dermatologic No sores Psychiatric anxiety 01/23 Psychiatric depression 0 02/10/2010 Physical Exam Exam Name System Name It em Name Status Result Effective Dates Notes Full Exam - General Constitutional general appearance Overall: well nourished 02/05/2014 None Full Exam - General Constitutional general appearance Overall: well developed 02/05/2014 None Full Exam - General Constitutional general appearance Overall: in no acute distress 02/05/2014 None Full Exam - General Neurologic mental status Overall: alert 4 None Full Exam - General Neurologic mental status Overall: oriented 02/05/2014 None Full Exam - General Psychiatric mood and affect Overall: normal mood and affect 02/05/2014 None Full Exam - General Cardiovascular extremities Overall: no clubbing 02/05/2014 None Full Exam - General Cardiovascular extremities Overall: No cyanosis 02/05/2014 None Full Exam - General Cardiovascular extremities Edema present: severity 1+ - 4+: 2 02/05/2014 None Full Exam - General Constitutional general appearance Overall: well nourished 11/14/2013 None Full Exam - General Constitutional general appearance Overall: well developed 11/14/2013 None Full Exam - General Constitutional general appearance Overall: in no acute distress 11/14/2013 None Full Exam - General Neurologic mental status Overall: alert 4 None Full Exam - General Neurologic mental status Overall: oriented 11/14/2013 None Full Exam - General Psychiatric mood and affect Overall: normal mood and affect 11/14/2013 None Full Exam - General Respiratory auscultation Overall: breath sounds clear bilater ally 11/14/2013 None Full Exam - General Cardiovascular auscultation of heart Overall: regular rate 11/14/2013 None Full Exam - General Cardiovascular auscultation of heart Overall: normal heart sounds 11/14/2013 None Full Exam - General Cardiovascular auscultation of heart S3 (ventricular gallop): present 11/14/2013 None Full Exam - General Cardiovascular auscultation of heart Murmur: previously known murmur unchanged 11/14/2013 None Full Exam - General Constitutional general appearance Overall: well nourished 07/31/2013 None Full Exam - General Constitutional general appearance Overall: well developed 07/31/2013 None Full Exam - General Respiratory percussion Overall: benign percussion 07/31/2013 None Full Exam - General Cardiovascular auscultation of heart Overall: regular rate 07/31/2013 None Full Exam - General Cardiovascular auscultation of heart Overall: normal heart sounds 07/31/2013 None Full Exam - General Ears/Nose/Throat otoscopic exam Overall: external auditory canals clear 07/31/2013 None Full Exam - General Ears/Nose/Throat otoscopic exam Overall: tympanic membranes clear 07/31/2013 None Full Exam - General Ears/Nose/Throat oral cavity/pharynx/larynx Oropharynx: erythema 07/31/2013 None Full Exam - General Psychiatric orientation/consciousness Overall: oriented to person, place and time 07/31/2013 None Full Exam - General Constitutional general appearance Overall: well nourished 07/27/2013 None Full Exam - General Constitutional general appearance Overall: well developed 07/27/2013 None Full Exam - General Constitutional general appearance Overall: in no acute distress 07/27/2013 None Full Exam - General Neurologic mental status Overall: alert 3 None Full Exam - General Neurologic mental status Overall: oriented 07/27/2013 None Full Exam - General Psychiatric mood and affect Overall: normal mood and affect 07/27/2013 None Full Exam - General Respiratory auscultation Overall: breath sounds clear bilater ally 07/27/2013 None Full Exam - General Cardiovascular auscultation of heart Overall: regular rate 07/27/2013 None Full Exam - General Cardiovascular auscultation of heart Overall: normal heart sounds 07/27/2013 None Full Exam - General Cardiovascular auscultation of heart S3 (ventricular gallop): present 07/27/2013 None Full Exam - General Cardiovascular auscultation of heart Murmur: previously known murmur unchanged 07/27/2013 None Full Exam - General Neck inspection of neck Overall: normal size 07/27/2013 None Full Exam - General Neck inspection of neck Overall: no masses 07/27/2013 None Full Exam - General Abdomen abdominal exam Overall: no masses 07/27/2013 None Full Exam - General Abdomen abdominal exam Overall: no tenderness 07/27/2013 None Full Exam - General Abdomen abdominal exam Overall: normal bowel sounds 07/27/2013 None Full Exam - General Abdomen abdominal exam Overall: soft 07/27/2013 None Full Exam - General Musculoskeletal gait and station Station: kyphosis 07/27/2013 None Full Exam - General Musculoskeletal spine, ribs and pelvis Spine: tender @ lumbar spin e 07/27/2013 None Full Exam - General Ears/Nose/Throat otoscopic exam Overall: external auditory canals clear 07/27/2013 None Full Exam - General Ears/Nose/Throat otoscopic exam Overall: tympanic membranes clear 07/27/2013 None Full Exam - General Ears/Nose/Throat internal nose Overall: bilateral nasal cavities clear 07/27/2013 None Full Exam - General Ears/Nose/Throat oral cavity/pharynx/larynx Overall: oral mucosa clear 07/27/2013 None Full Exam - General Cardiovascular extremities Overall: no clubbing 07/27/2013 None Full Exam - General Cardiovascular extremities Overall: No cyanosis 07/27/2013 None Full Exam - General Cardiovascular extremities Edema present: non-pitting 07/27/2013 None Full Exam - General Constitutional general appearance Overall: well nourished 05/04/2013 None Full Exam - General Constitutional general appearance Overall: well developed 05/04/2013 None Full Exam - General Constitutional general appearance Overall: in no acute distress 05/04/2013 None Full Exam - General Neurologic mental status Overall: alert 3 None Full Exam - General Neurologic mental status Overall: oriented 05/04/2013 None Full Exam - General Psychiatric mood and affect Overall: normal mood and affect 05/04/2013 None Full Exam - General Constitutional general appearance Overall: well nourished 03/30/2013 None Full Exam - General Constitutional general appearance Overall: well developed 03/30/2013 None Full Exam - General Constitutional general appearance Overall: in no acute distress 03/30/2013 None Full Exam - General Neurologic mental status Overall: alert 3 None Full Exam - General Neurologic mental status Overall: oriented 03/30/2013 None Full Exam - General Psychiatric mood and affect Overall: normal mood and affect 03/30/2013 None Full Exam - General Respiratory auscultation Overall: breath sounds clear bilater ally 03/30/2013 None Full Exam - General Cardiovascular auscultation of heart Overall: regular rate 03/30/2013 None Full Exam - General Cardiovascular auscultation of heart Overall: normal heart sounds 03/30/2013 None Full Exam - General Cardiovascular auscultation of heart S3 (ventricular gallop): present 03/30/2013 None Full Exam - General Cardiovascular auscultation of heart Murmur: previously known murmur unchanged 03/30/2013 None Full Exam - General Cardiovascular extremities Overall: no clubbing 03/30/2013 None Full Exam - General Cardiovascular extremities Overall: No cyanosis 03/30/2013 None Full Exam - General Cardiovascular extremities Edema present: severity 1+ - 4+: 1 03/30/2013 None Full Exam - General Constitutional general appearance Overall: well nourished 02/21/2013 None Full Exam - General Constitutional general appearance Overall: well developed 02/21/2013 None Full Exam - General Constitutional general appearance Overall: in no acute distress 02/21/2013 None Full Exam - General Neurologic mental status Overall: alert 3 None Full Exam - General Neurologic mental status Overall: oriented 02/21/2013 None Full Exam - General Psychiatric mood and affect Overall: normal mood and affect 02/21/2013 None Full Exam - General Constitutional general appearance Overall: well nourished 02/14/2013 None Full Exam - General Constitutional general appearance Overall: well developed 02/14/2013 None Full Exam - General Constitutional general appearance Overall: in no acute distress 02/14/2013 None Full Exam - General Neurologic mental status Overall: alert 3 None Full Exam - General Neurologic mental status Overall: oriented 02/14/2013 None Full Exam - General Psychiatric mood and affect Overall: normal mood and affect 02/14/2013 None Full Exam - General Abdomen abdominal exam Overall: no masses 02/14/2013 None Full Exam - General Abdomen abdominal exam Overall: no tenderness 02/14/2013 None Full Exam - General Abdomen abdominal exam Overall: normal bowel sounds 02/14/2013 None Full Exam - General Abdomen abdominal exam Overall: soft 02/14/2013 None Full Exam - General Constitutional general appearance Overall: well nourished 01/17/2013 None Full Exam - General Constitutional general appearance Overall: well developed 01/17/2013 None Full Exam - General Constitutional general appearance Overall: in no acute distress 01/17/2013 None Full Exam - General Neurologic mental status Overall: alert 3 None Full Exam - General Neurologic mental status Overall: oriented 01/17/2013 None Full Exam - General Psychiatric mood and affect Overall: normal mood and affect 01/17/2013 None Full Exam - General Constitutional general appearance Overall: well nourished 12/29/2012 None Full Exam - General Constitutional general appearance Overall: well developed 12/29/2012 None Full Exam - General Constitutional general appearance Overall: in no acute distress 12/29/2012 None Full Exam - General Respiratory auscultation Overall: breath sounds clear bilater ally 12/29/2012 None Full Exam - General Cardiovascular auscultation of heart Overall: regular rate 12/29/2012 None Full Exam - General Cardiovascular auscultation of heart Overall: normal heart sounds 12/29/2012 None Full Exam - General Neurologic cranial nerves Overall: cranial nerves 1-12 intact 12/29/2012 None Full Exam - General Psychiatric mood and affect Overall: normal mood and affect 12/29/2012 None Full Exam - General Psychiatric speech Overall: normal quality, no aphasia 12/29/2012 None Full Exam - General Psychiatric thought Overall: normal form and content 12/29/2012 None Full Exam - General Psychiatric judgment/insight Overall: judgment and insight intact 12/29/2012 None Full Exam - General Musculoskeletal gait and station Overall: normal gait 12/29/2012 None Full Exam - General Musculoskeletal gait and station Overall: normal station 12/29/2012 None Full Exam - General Musculoskeletal spine, ribs and pelvis Overall: good posture 12/29/2012 None Full Exam - General Musculoskeletal spine, ribs and pelvis Overall: ribs benign 12/29/2012 None Full Exam - General Musculoskeletal spine, ribs and pelvis Overall: spine benign 12/29/2012 None Full Exam - General Ears/Nose/Throat otoscopic exam Overall: external auditory canals clear 12/29/2012 None Full Exam - General Ears/Nose/Throat otoscopic exam Overall: tympanic membranes clear 12/29/2012 None Full Exam - General Ears/Nose/Throat internal nose Overall: bilateral nasal cavities clear 12/29/2012 None Full Exam - General Ears/Nose/Throat oral cavity/pharynx/larynx Overall: oral mucosa clear 12/29/2012 None Full Exam - General Cardiovascular auscultation of heart S3 (ventricular gallop): present 12/29/2012 None Full Exam - General Cardiovascular auscultation of heart Murmur: previously known murmur unchanged 12/29/2012 None Full Exam - General Cardiovascular extremities Overall: no clubbing 12/29/2012 None Full Exam - General Cardiovascular extremities Overall: No cyanosis 12/29/2012 None Full Exam - General Abdomen abdominal exam Overall: no masses 12/29/2012 None Full Exam - General Abdomen abdominal exam Overall: no tenderness 12/29/2012 None Full Exam - General Abdomen abdominal exam Overall: normal bowel sounds 12/29/2012 None Full Exam - General Abdomen abdominal exam Overall: soft 12/29/2012 None Full Exam - General Cardiovascular extremities Edema present: severity 1+ - 4+: 1 12/29/2012 None Full Exam - General Neck inspection of neck Overall: normal size 12/29/2012 None Full Exam - General Neck inspection of neck Overall: no masses 12/29/2012 None Full Exam - General Neck inspection of neck Carotid arteries: a normal exam 12/29/2012 None Full Exam - General Neurologic deep tendon reflexes Overall: deep tendon reflexes intact 12/29/2012 None Full Exam - General Neurologic mental status Overall: alert 3 None Full Exam - General Neurologic mental status Overall: oriented 12/29/2012 None Full Exam - General Constitutional general appearance Overall: well nourished 06/22/2012 None Full Exam - General Constitutional general appearance Overall: well developed 06/22/2012 None Full Exam - General Constitutional general appearance Overall: in no acute distress 06/22/2012 None Full Exam - General Neurologic mental status Overall: alert 2 None Full Exam - General Neurologic mental status Overall: oriented 06/22/2012 None Full Exam - General Psychiatric mood and affect Overall: normal mood and affect 06/22/2012 None Full Exam - General Integument inspection of skin Location: right leg 06/22/2012 right anterior ankle with dime size ulce r with surrounding erythema Full Exam - General Constitutional general appearance Overall: well nourished 05/25/2012 None Full Exam - General Constitutional general appearance Overall: well developed 05/25/2012 None Full Exam - General Constitutional general appearance Overall: in no acute distress 05/25/2012 None Full Exam - General Ears/Nose/Throat otoscopic exam Overall: external auditory canals clear 05/25/2012 None Full Exam - General Ears/Nose/Throat otoscopic exam Overall: tympanic membranes clear 05/25/2012 None Full Exam - General Ears/Nose/Throat lips/teeth/gingiva Teeth: wears dentures 05/25/2012 None Full Exam - General Ears/Nose/Throat oral cavity/pharynx/larynx Overall: oropharyngeal mucosa clear 05/25/2012 None Full Exam - General Respiratory auscultation Overall: breath sounds clear bilater ally 05/25/2012 None Full Exam - General Respiratory respiratory effort/rhythm Overall: no retractions 05/25/2012 None Full Exam - General Respiratory respiratory effort/rhythm Overall: normal rate 05/25/2012 None Full Exam - General Cardiovascular auscultation of heart Overall: regular rate 05/25/2012 None Full Exam - General Cardiovascular auscultation of heart Overall: normal heart sounds 05/25/2012 None Full Exam - General Lymphatic neck nodes Overall: anterior cervical chain dinh ign 05/25/2012 None Full Exam - General Lymphatic neck nodes Overall: posterior cervical chain be nign 05/25/2012 None Full Exam - General Psychiatric orientation/consciousness Overall: oriented to person, place and time 05/25/2012 None Full Exam - General Constitutional general appearance Overall: in no acute distress 08/27/2011 None Full Exam - General Constitutional general appearance Overall: well developed 08/27/2011 None Full Exam - General Constitutional general appearance Overall: well nourished 08/27/2011 None Full Exam - General Neurologic mental status Overall: alert 1 None Full Exam - General Neurologic mental status Overall: oriented 08/27/2011 None Full Exam - General Psychiatric mood and affect Overall: normal mood and affect 08/27/2011 None Full Exam - General Integument inspection of skin Location: chest 08/27/2011 irritated SK to left breast about 7mm in size Full Exam - General Constitutional general appearance Overall: in no acute distress 07/01/2011 None Full Exam - General Constitutional general appearance Overall: well developed 07/01/2011 None Full Exam - General Constitutional general appearance Overall: well nourished 07/01/2011 None Full Exam - General Neurologic mental status Overall: alert 1 None Full Exam - General Neurologic mental status Overall: oriented 07/01/2011 None Full Exam - General Psychiatric mood and affect Overall: normal mood and affect 07/01/2011 None Full Exam - General Respiratory auscultation Right upper lung field: a normal exa m 07/01/2011 None Full Exam - General Respiratory auscultation Right middle lung field: a normal ex am 07/01/2011 None Full Exam - General Respiratory auscultation Right lower lung field: a normal exa m 07/01/2011 None Full Exam - General Respiratory auscultation Left lower lung field: a normal exam 07/01/2011 None Full Exam - General Respiratory auscultation Overall: breath sounds clear bilater ally 07/01/2011 None Full Exam - General Respiratory auscultation Left upper lung field: a normal exam 07/01/2011 None Full Exam - General Respiratory auscultation Diffuse: a normal exam 07/01/2011 None Full Exam - General Cardiovascular auscultation of heart Overall: no murmurs 07/01/2011 None Full Exam - General Cardiovascular auscultation of heart Overall: regular rate 07/01/2011 None Full Exam - General Cardiovascular auscultation of heart Overall: normal heart sounds 07/01/2011 None Full Exam - General Cardiovascular auscultation of heart S1: a normal exam 07/01/2011 None Full Exam - General Cardiovascular auscultation of heart S2: a normal exam 07/01/2011 None Full Exam - General Cardiovascular auscultation of heart Rhythm: regular rhythm 07/01/2011 None Full Exam - General Cardiovascular auscultation of heart Rate: regular rate 07/01/2011 None Full Exam - General Cardiovascular auscultation of heart S3 (ventricular gallop): present 07/01/2011 None Full Exam - General Abdomen abdominal exam Overall: no masses 07/01/2011 None Full Exam - General Abdomen abdominal exam Overall: normal bowel sounds 07/01/2011 None Full Exam - General Abdomen abdominal exam Overall: soft 07/01/2011 None Full Exam - General Abdomen abdominal exam Epigastric: tender to palpation 07/01/2011 None Full Exam - General Cardiovascular extremities Overall: no clubbing 07/01/2011 None Full Exam - General Cardiovascular extremities Overall: No cyanosis 07/01/2011 None Full Exam - General Cardiovascular extremities Overall: No edema 07/01/2011 None Full Exam - General Constitutional general appearance Overall: well nourished 04/16/2011 None Full Exam - General Constitutional general appearance Overall: well developed 04/16/2011 None Full Exam - General Constitutional general appearance Overall: in no acute distress 04/16/2011 None Full Exam - General Neurologic mental status Overall: alert 1 None Full Exam - General Neurologic mental status Overall: oriented 04/16/2011 None Full Exam - General Psychiatric mood and affect Overall: normal mood and affect 04/16/2011 None Full Exam - General Respiratory auscultation Overall: breath sounds clear bilater ally 04/16/2011 None Full Exam - General Respiratory auscultation Diffuse: a normal exam 04/16/2011 None Full Exam - General Respiratory auscultation Left upper lung field: a normal exam 04/16/2011 None Full Exam - General Respiratory auscultation Left lower lung field: a normal exam 04/16/2011 None Full Exam - General Respiratory auscultation Right upper lung field: a normal exa m 04/16/2011 None Full Exam - General Respiratory auscultation Right middle lung field: a normal ex am 04/16/2011 None Full Exam - General Respiratory auscultation Right lower lung field: a normal exa m 04/16/2011 None Full Exam - General Cardiovascular auscultation of heart Overall: regular rate 04/16/2011 None Full Exam - General Cardiovascular auscultation of heart Overall: normal heart sounds 04/16/2011 None Full Exam - General Cardiovascular auscultation of heart Overall: no murmurs 04/16/2011 None Full Exam - General Cardiovascular auscultation of heart Rate: regular rate 04/16/2011 None Full Exam - General Cardiovascular auscultation of heart Rhythm: regular rhythm 04/16/2011 None Full Exam - General Cardiovascular auscultation of heart S1: a normal exam 04/16/2011 None Full Exam - General Cardiovascular auscultation of heart S2: a normal exam 04/16/2011 None Full Exam - General Cardiovascular auscultation of heart S3 (ventricular gallop): present 04/16/2011 None Full Exam - General Constitutional general appearance Overall: well nourished 03/24/2011 None Full Exam - General Constitutional general appearance Overall: well developed 03/24/2011 None Full Exam - General Constitutional general appearance Overall: in no acute distress 03/24/2011 None Full Exam - General Neurologic mental status Overall: alert 1 None Full Exam - General Neurologic mental status Overall: oriented 03/24/2011 None Full Exam - General Psychiatric mood and affect Overall: normal mood and affect 03/24/2011 None Full Exam - General Respiratory auscultation Overall: breath sounds clear bilater ally 03/24/2011 None Full Exam - General Respiratory auscultation Diffuse: a normal exam 03/24/2011 None Full Exam - General Respiratory auscultation Left upper lung field: a normal exam 03/24/2011 None Full Exam - General Respiratory auscultation Left lower lung field: a normal exam 03/24/2011 None Full Exam - General Respiratory auscultation Right upper lung field: a normal exa m 03/24/2011 None Full Exam - General Respiratory auscultation Right middle lung field: a normal ex am 03/24/2011 None Full Exam - General Respiratory auscultation Right lower lung field: a normal exa m 03/24/2011 None Full Exam - General Cardiovascular auscultation of heart Overall: regular rate 03/24/2011 None Full Exam - General Cardiovascular auscultation of heart Overall: normal heart sounds 03/24/2011 None Full Exam - General Cardiovascular auscultation of heart Overall: no murmurs 03/24/2011 None Full Exam - General Cardiovascular auscultation of heart Rate: regular rate 03/24/2011 None Full Exam - General Cardiovascular auscultation of heart Rhythm: regular rhythm 03/24/2011 None Full Exam - General Cardiovascular auscultation of heart S1: a normal exam 03/24/2011 None Full Exam - General Cardiovascular auscultation of heart S2: a normal exam 03/24/2011 None Full Exam - General Cardiovascular auscultation of heart S3 (ventricular gallop): present 03/24/2011 None Full Exam - General Cardiovascular extremities Overall: no clubbing 03/24/2011 None Full Exam - General Cardiovascular extremities Overall: No edema 03/24/2011 None Full Exam - General Cardiovascular extremities Overall: No cyanosis 03/24/2011 None Full Exam - General Abdomen abdominal exam Overall: no masses 03/24/2011 None Full Exam - General Abdomen abdominal exam Overall: no tenderness 03/24/2011 None Full Exam - General Abdomen abdominal exam Overall: normal bowel sounds 03/24/2011 None Full Exam - General Abdomen abdominal exam Overall: soft 03/24/2011 None Full Exam - General Constitutional general appearance Overall: well nourished 02/04/2011 None Full Exam - General Constitutional general appearance Overall: well developed 02/04/2011 None Full Exam - General Constitutional general appearance Overall: in no acute distress 02/04/2011 None Full Exam - General Neurologic mental status Overall: alert 1 None Full Exam - General Neurologic mental status Overall: oriented 02/04/2011 None Full Exam - General Psychiatric mood and affect Overall: normal mood and affect 02/04/2011 None Full Exam - General Musculoskeletal left upper extremity Inspection - left shoulder: presence of a scar 02/04/[address] Full Exam - General Abdomen abdominal exam Overall: no masses 01/20/2011 None Full Exam - General Abdomen abdominal exam Left upper quadrant: tender to palpa tion 01/20/2011 None Full Exam - General Abdomen abdominal exam Left lower quadrant: tender to palpa tion 01/20/2011 None Full Exam - General Respiratory auscultation Left lower lung field: a normal exam 01/20/2011 None Full Exam - General Respiratory auscultation Right upper lung field: a normal exa m 01/20/2011 None Full Exam - General Respiratory auscultation Right middle lung field: a normal ex am 01/20/2011 None Full Exam - General Respiratory auscultation Right lower lung field: a normal exa m 01/20/2011 None Full Exam - General Cardiovascular auscultation of heart Overall: regular rate 01/20/2011 None Full Exam - General Cardiovascular auscultation of heart Overall: normal heart sounds 01/20/2011 None Full Exam - General Cardiovascular auscultation of heart Overall: no murmurs 01/20/2011 None Full Exam - General Cardiovascular auscultation of heart Rate: regular rate 01/20/2011 None Full Exam - General Cardiovascular auscultation of heart Rhythm: regular rhythm 01/20/2011 None Full Exam - General Cardiovascular auscultation of heart S1: a normal exam 01/20/2011 None Full Exam - General Cardiovascular auscultation of heart S2: a normal exam 01/20/2011 None Full Exam - General Cardiovascular auscultation of heart S3 (ventricular gallop): present 01/20/2011 None Full Exam - General Abdomen abdominal exam Overall: normal bowel sounds 01/20/2011 None Full Exam - General Abdomen abdominal exam Overall: soft 01/20/2011 None Full Exam - General Constitutional general appearance Overall: well nourished 01/20/2011 None Full Exam - General Constitutional general appearance Overall: well developed 01/20/2011 None Full Exam - General Constitutional general appearance Overall: in no acute distress 01/20/2011 None Full Exam - General Neurologic mental status Overall: alert 1 None Full Exam - General Neurologic mental status Overall: oriented 01/20/2011 None Full Exam - General Psychiatric mood and affect Overall: normal mood and affect 01/20/2011 None Full Exam - General Respiratory auscultation Overall: breath sounds clear bilater ally 01/20/2011 None Full Exam - General Respiratory auscultation Diffuse: a normal exam 01/20/2011 None Full Exam - General Respiratory auscultation Left upper lung field: a normal exam 01/20/2011 None Full Exam - General Constitutional general appearance Overall: well nourished 01/19/2011 None Full Exam - General Constitutional general appearance Overall: well developed 01/19/2011 None Full Exam - General Constitutional general appearance Overall: in no acute distress 01/19/2011 None Full Exam - General Neurologic mental status Overall: alert 1 None Full Exam - General Neurologic mental status Overall: oriented 01/19/2011 None Full Exam - General Psychiatric mood and affect Overall: normal mood and affect 01/19/2011 None Full Exam - General Respiratory auscultation Overall: breath sounds clear bilater ally 01/19/2011 None Full Exam - General Respiratory auscultation Diffuse: a normal exam 01/19/2011 None Full Exam - General Respiratory auscultation Left upper lung field: a normal exam 01/19/2011 None Full Exam - General Respiratory auscultation Left lower lung field: a normal exam 01/19/2011 None Full Exam - General Respiratory auscultation Right upper lung field: a normal exa m 01/19/2011 None Full Exam - General Respiratory auscultation Right middle lung field: a normal ex am 01/19/2011 None Full Exam - General Respiratory auscultation Right lower lung field: a normal exa m 01/19/2011 None Full Exam - General Cardiovascular auscultation of heart Overall: regular rate 01/19/2011 None Full Exam - General Cardiovascular auscultation of heart Overall: normal heart sounds 01/19/2011 None Full Exam - General Cardiovascular auscultation of heart Overall: no murmurs 01/19/2011 None Full Exam - General Cardiovascular auscultation of heart Rate: regular rate 01/19/2011 None Full Exam - General Cardiovascular auscultation of heart Rhythm: regular rhythm 01/19/2011 None Full Exam - General Cardiovascular auscultation of heart S1: a normal exam 01/19/2011 None Full Exam - General Cardiovascular auscultation of heart S2: a normal exam 01/19/2011 None Full Exam - General Cardiovascular auscultation of heart S3 (ventricular gallop): present 01/19/2011 None Full Exam - General Abdomen abdominal exam Overall: no masses 01/19/2011 None Full Exam - General Abdomen abdominal exam Overall: normal bowel sounds 01/19/2011 None Full Exam - General Abdomen abdominal exam Overall: soft 01/19/2011 None Full Exam - General Abdomen abdominal exam Left lower quadrant: tender to palpa tion 01/19/2011 None Full Exam - General Abdomen abdominal exam Suprapubic: tender to palpation 01/19/2011 None Full Exam - General Constitutional general appearance Overall: well nourished 01/15/2011 None Full Exam - General Constitutional general appearance Overall: well developed 01/15/2011 None Full Exam - General Constitutional general appearance Overall: in no acute distress 01/15/2011 None Full Exam - General Neurologic mental status Overall: alert 1 None Full Exam - General Neurologic mental status Overall: oriented 01/15/2011 None Full Exam - General Psychiatric mood and affect Overall: normal mood and affect 01/15/2011 None Full Exam - General Musculoskeletal left upper extremity Inspection - left shoulder: presence of a scar 01/15/[address] Full Exam - General Eyes pupils and irises Overall: pupils equal, round, reacti ve to light and accomodation 10/15/2010 None Full Exam - General Ears/Nose/Throat external ear Overall: normal appearance 10/15/2010 None Full Exam - General Ears/Nose/Throat otoscopic exam Overall: external auditory canals clear 10/15/2010 None Full Exam - General Ears/Nose/Throat otoscopic exam Overall: tympanic membranes clear 10/15/2010 None Full Exam - General Ears/Nose/Throat lips/teeth/gingiva Overall: benign lips 10/15/2010 None Full Exam - General Ears/Nose/Throat lips/teeth/gingiva Overall: normal dentition 10/15/2010 None Full Exam - General Ears/Nose/Throat lips/teeth/gingiva Overall: benign gingiva 10/15/2010 None Full Exam - General Ears/Nose/Throat oral cavity/pharynx/larynx Overall: oral mucosa clear 10/15/2010 None Full Exam - General Ears/Nose/Throat oral cavity/pharynx/larynx Right tonsil: 1+ size 10/15/2010 None Full Exam - General Ears/Nose/Throat oral cavity/pharynx/larynx Right tonsil: erythematous 10/15/2010 None Full Exam - General Ears/Nose/Throat oral cavity/pharynx/larynx Left tonsil: 1+ size 10/15/2010 None Full Exam - General Ears/Nose/Throat oral cavity/pharynx/larynx Left tonsil: erythematous 10/15/2010 None Full Exam - General Ears/Nose/Throat oral cavity/pharynx/larynx Oropharynx: erythema 10/15/2010 mild Full Exam - General Respiratory auscultation Overall: breath sounds clear bilater ally 10/15/2010 None Full Exam - General Constitutional general appearance Nourishment: obese 10/15/2010 None Full Exam - General Constitutional general appearance Overall: well nourished 10/15/2010 None Full Exam - General Constitutional general appearance Overall: well developed 10/15/2010 None Full Exam - General Constitutional general appearance Overall: in no acute distress 10/15/2010 None Full Exam - General Eyes conjunctiva/eyelids Overall: conjunctiva clear 10/15/2010 None Full Exam - General Eyes conjunctiva/eyelids Overall: cornea clear 10/15/2010 None Full Exam - General Respiratory respiratory effort/rhythm Overall: no retractions 10/15/2010 None Full Exam - General Respiratory respiratory effort/rhythm Overall: normal rate 10/15/2010 coughs with deep inspirat ion Full Exam - General Cardiovascular auscultation of heart Overall: regular rate 10/15/2010 None Full Exam - General Cardiovascular auscultation of heart Overall: normal heart sounds 10/15/2010 None Full Exam - General Psychiatric orientation/consciousness Overall: oriented to person, place and time 10/15/2010 None Full Exam - General Constitutional general appearance Nourishment: obese 08/26/2010 None Full Exam - General Psychiatric orientation/consciousness Overall: oriented to person, place and time 08/26/2010 Pt. becomes tearful when discussing grieving process and the lack of compliance with diabetes meds. Full Exam - General Cardiovascular auscultation of heart Overall: no murmurs 08/21/2010 None Full Exam - General Cardiovascular auscultation of heart Rate: regular rate 08/21/2010 None Full Exam - General Cardiovascular auscultation of heart Rhythm: regular rhythm 08/21/2010 None Full Exam - General Cardiovascular auscultation of heart S1: a normal exam 08/21/2010 None Full Exam - General Cardiovascular auscultation of heart S2: a normal exam 08/21/2010 None Full Exam - General Cardiovascular auscultation of heart S3 (ventricular gallop): present 08/21/2010 None Full Exam - General Cardiovascular extremities Overall: no clubbing 08/21/2010 None Full Exam - General Cardiovascular extremities Overall: No edema 08/21/2010 None Full Exam - General Cardiovascular extremities Overall: No cyanosis 08/21/2010 None Full Exam - General Abdomen abdominal exam Overall: no masses 08/21/2010 None Full Exam - General Abdomen abdominal exam Overall: normal bowel sounds 08/21/2010 None Full Exam - General Abdomen abdominal exam Overall: soft 08/21/2010 None Full Exam - General Neurologic mental status Overall: alert 0 None Full Exam - General Neurologic mental status Overall: oriented 08/21/2010 None Full Exam - General Psychiatric mood and affect Overall: normal mood and affect 08/21/2010 None Full Exam - General Abdomen abdominal exam Epigastric: tender to palpation 08/21/2010 None Full Exam - General Abdomen abdominal exam Right lower quadrant: tender to palp ation 08/21/2010 None Full Exam - General Constitutional general appearance Overall: well nourished 08/21/2010 None Full Exam - General Constitutional general appearance Overall: well developed 08/21/2010 None Full Exam - General Constitutional general appearance Overall: in no acute distress 08/21/2010 None Full Exam - General Respiratory auscultation Overall: breath sounds clear bilater ally 08/21/2010 None Full Exam - General Respiratory auscultation Diffuse: a normal exam 08/21/2010 None Full Exam - General Respiratory auscultation Left upper lung field: a normal exam 08/21/2010 None Full Exam - General Respiratory auscultation Left lower lung field: a normal exam 08/21/2010 None Full Exam - General Respiratory auscultation Right upper lung field: a normal exa m 08/21/2010 None Full Exam - General Respiratory auscultation Right middle lung field: a normal ex am 08/21/2010 None Full Exam - General Respiratory auscultation Right lower lung field: a normal exa m 08/21/2010 None Full Exam - General Cardiovascular auscultation of heart Overall: regular rate 08/21/2010 None Full Exam - General Cardiovascular auscultation of heart Overall: normal heart sounds 08/21/2010 None Full Exam - General Abdomen abdominal exam Left lower quadrant: tender to palpa tion 08/21/2010 None Full Exam - General Ears/Nose/Throat otoscopic exam Overall: tympanic membranes clear 06/09/2010 None Full Exam - General Ears/Nose/Throat lips/teeth/gingiva Overall: benign lips 06/09/2010 None Full Exam - General Ears/Nose/Throat lips/teeth/gingiva Overall: normal dentition 06/09/2010 None Full Exam - General Ears/Nose/Throat oral cavity/pharynx/larynx Overall: oral mucosa clear 06/09/2010 None Full Exam - General Ears/Nose/Throat oral cavity/pharynx/larynx Overall: mobile tongue benign 06/09/2010 None Full Exam - General Ears/Nose/Throat oral cavity/pharynx/larynx Overall: tonsils benign 06/09/2010 None Full Exam - General Ears/Nose/Throat oral cavity/pharynx/larynx Overall: oropharyngeal mucosa clear 06/09/2010 None Full Exam - General Respiratory auscultation Overall: breath sounds clear bilater ally 06/09/2010 None Full Exam - General Respiratory respiratory effort/rhythm Overall: no retractions 06/09/2010 None Full Exam - General Respiratory respiratory effort/rhythm Overall: normal rate 06/09/2010 None Full Exam - General Cardiovascular auscultation of heart Overall: regular rate 06/09/2010 None Full Exam - General Cardiovascular auscultation of heart Overall: normal heart sounds 06/09/2010 None Full Exam - General Abdomen abdominal exam Left upper quadrant: dull pain 06/09/2010 None Full Exam - General Abdomen abdominal exam Left upper quadrant: voluntary guard ing 06/09/2010 None Full Exam - General Constitutional general appearance Overall: well nourished 06/09/2010 None Full Exam - General Constitutional general appearance Overall: well developed 06/09/2010 None Full Exam - General Constitutional general appearance Overall: in no acute distress 06/09/2010 None Full Exam - General Eyes conjunctiva/eyelids Overall: conjunctiva clear 06/09/2010 None Full Exam - General Eyes conjunctiva/eyelids Overall: cornea clear 06/09/2010 None Full Exam - General Eyes conjunctiva/eyelids Overall: eyelids normal 06/09/2010 None Full Exam - General Eyes pupils and irises Overall: pupils equal, round, reacti ve to light and accomodation 06/09/2010 None Full Exam - General Ears/Nose/Throat external ear Overall: normal appearance 06/09/2010 None Full Exam - General Ears/Nose/Throat otoscopic exam Overall: external auditory canals clear 06/09/2010 None Full Exam - General Abdomen abdominal exam Left lower quadrant: tender to palpa tion 06/09/2010 None Full Exam - General Abdomen abdominal exam Right upper quadrant: non-tender to palpation 06/09/2010 None Full Exam - General Abdomen abdominal exam Right lower quadrant: non-tender to palpation 06/09/2010 None Full Exam - General Psychiatric orientation/consciousness Overall: oriented to person, place and time 06/09/2010 None Full Exam - General Cardiovascular auscultation of heart S2: a normal exam 05/21/2010 None Full Exam - General Cardiovascular auscultation of heart S3 (ventricular gallop): present 05/21/2010 None Full Exam - General Respiratory auscultation Overall: breath sounds clear bilater ally 05/21/2010 None Full Exam - General Respiratory auscultation Diffuse: a normal exam 05/21/2010 None Full Exam - General Respiratory auscultation Left upper lung field: a normal exam 05/21/2010 None Full Exam - General Respiratory auscultation Left lower lung field: a normal exam 05/21/2010 None Full Exam - General Respiratory auscultation Right upper lung field: a normal exa m 05/21/2010 None Full Exam - General Respiratory auscultation Right middle lung field: a normal ex am 05/21/2010 None Full Exam - General Respiratory auscultation Right lower lung field: a normal exa m 05/21/2010 None Full Exam - General Cardiovascular extremities Overall: no clubbing 05/21/2010 None Full Exam - General Cardiovascular extremities Overall: No cyanosis 05/21/2010 None Full Exam - General Abdomen abdominal exam Overall: no masses 05/21/2010 None Full Exam - General Abdomen abdominal exam Overall: normal bowel sounds 05/21/2010 None Full Exam - General Abdomen abdominal exam Overall: soft 05/21/2010 None Full Exam - General Constitutional general appearance Overall: well nourished 05/21/2010 None Full Exam - General Constitutional general appearance Overall: well developed 05/21/2010 None Full Exam - General Constitutional general appearance Overall: in no acute distress 05/21/2010 None Full Exam - General Cardiovascular auscultation of heart Overall: regular rate 05/21/2010 None Full Exam - General Cardiovascular auscultation of heart Overall: normal heart sounds 05/21/2010 None Full Exam - General Cardiovascular auscultation of heart Overall: no murmurs 05/21/2010 None Full Exam - General Cardiovascular auscultation of heart Rate: regular rate 05/21/2010 None Full Exam - General Cardiovascular auscultation of heart Rhythm: regular rhythm 05/21/2010 None Full Exam - General Cardiovascular auscultation of heart S1: a normal exam 05/21/2010 None Full Exam - General Neurologic mental status Overall: alert 0 None Full Exam - General Neurologic mental status Overall: oriented 05/21/2010 None Full Exam - General Psychiatric mood and affect Overall: normal mood and affect 05/21/2010 None Full Exam - General Abdomen abdominal exam Epigastric: tender to palpation 05/21/2010 None Full Exam - General Abdomen abdominal exam Left lower quadrant: tender to palpa tion 05/21/2010 None Full Exam - General Cardiovascular extremities Edema present: severity 1+ - 4+: 1 05/21/2010 None Full Exam - General Abdomen abdominal exam Overall: no masses 05/08/2010 None Full Exam - General Abdomen abdominal exam Overall: normal bowel sounds 05/08/2010 None Full Exam - General Abdomen abdominal exam Overall: soft 05/08/2010 None Full Exam - General Abdomen abdominal exam Left upper quadrant: tender to palpa tion 05/08/2010 None Full Exam - General Abdomen abdominal exam Left lower quadrant: tender to palpa tion 05/08/2010 None Full Exam - General Abdomen abdominal exam Right upper quadrant: tender to palp ation 05/08/2010 None Full Exam - General Abdomen abdominal exam Right lower quadrant: tender to palp ation 05/08/2010 None Full Exam - General Abdomen abdominal exam Epigastric: tender to palpation 05/08/2010 None Full Exam - General Abdomen abdominal exam Suprapubic: tender to palpation 05/08/2010 None Full Exam - General Neurologic mental status Overall: alert 0 None Full Exam - General Neurologic mental status Overall: oriented 05/08/2010 None Full Exam - General Psychiatric mood and affect Overall: normal mood and affect 05/08/2010 None Full Exam - General Constitutional general appearance Overall: well nourished 05/08/2010 None Full Exam - General Constitutional general appearance Overall: well developed 05/08/2010 None Full Exam - General Constitutional general appearance Overall: in no acute distress 05/08/2010 None Full Exam - General Abdomen abdominal exam Overall: normal bowel sounds 04/10/2010 None Full Exam - General Abdomen abdominal exam Overall: soft 04/10/2010 None Full Exam - General Abdomen abdominal exam Left upper quadrant: tender to palpa tion 04/10/2010 None Full Exam - General Abdomen abdominal exam Left lower quadrant: tender to palpa tion 04/10/2010 None Full Exam - General Abdomen abdominal exam Right upper quadrant: tender to palp ation 04/10/2010 None Full Exam - General Abdomen abdominal exam Right lower quadrant: tender to palp ation 04/10/2010 None Full Exam - General Abdomen abdominal exam Epigastric: tender to palpation 04/10/2010 None Full Exam - General Cardiovascular auscultation of heart Rate: regular rate 04/10/2010 None Full Exam - General Cardiovascular auscultation of heart Rhythm: regular rhythm 04/10/2010 None Full Exam - General Constitutional general appearance Overall: well nourished 04/10/2010 None Full Exam - General Abdomen abdominal exam Suprapubic: tender to palpation 04/10/2010 None Full Exam - General Neurologic mental status Overall: alert 0 None Full Exam - General Neurologic mental status Overall: oriented 04/10/2010 None Full Exam - General Psychiatric mood and affect Overall: normal mood and affect 04/10/2010 None Full Exam - General Abdomen hernia exam Abdominal hernia present: tender 04/10/2010 None Full Exam - General Abdomen hernia exam Abdominal hernia present: reducible 04/10/2010 None Full Exam - General Cardiovascular auscultation of heart S1: a normal exam 04/10/2010 None Full Exam - General Cardiovascular auscultation of heart S2: a normal exam 04/10/2010 None Full Exam - General Cardiovascular extremities Overall: no clubbing 04/10/2010 None Full Exam - General Cardiovascular extremities Overall: No cyanosis 04/10/2010 None Full Exam - General Cardiovascular extremities Edema present: severity 1+ - 4+: trace 04/10/2010 None Full Exam - General Abdomen abdominal exam Overall: no masses 04/10/2010 None Full Exam - General Constitutional general appearance Overall: well developed 04/10/2010 None Full Exam - General Constitutional general appearance Overall: in no acute distress 04/10/2010 None Full Exam - General Respiratory auscultation Overall: breath sounds clear bilater ally 04/10/2010 None Full Exam - General Respiratory auscultation Diffuse: a normal exam 04/10/2010 None Full Exam - General Respiratory auscultation Left upper lung field: a normal exam 04/10/2010 None Full Exam - General Respiratory auscultation Left lower lung field: a normal exam 04/10/2010 None Full Exam - General Respiratory auscultation Right upper lung field: a normal exa m 04/10/2010 None Full Exam - General Respiratory auscultation Right middle lung field: a normal ex am 04/10/2010 None Full Exam - General Respiratory auscultation Right lower lung field: a normal exa m 04/10/2010 None Full Exam - General Cardiovascular auscultation of heart Overall: regular rate 04/10/2010 None Full Exam - General Cardiovascular auscultation of heart Overall: normal heart sounds 04/10/2010 None Full Exam - General Cardiovascular auscultation of heart Overall: no murmurs 04/10/2010 None Full Exam - General Ears/Nose/Throat oral cavity/pharynx/larynx Oropharynx: erythema 02/10/2010 None Full Exam - General Ears/Nose/Throat oral cavity/pharynx/larynx Oropharynx: postnasal drainage 02/10/2010 None Full Exam - General Ears/Nose/Throat oral cavity/pharynx/larynx Base of tongue: a normal exam 02/10/2010 None Full Exam - General Ears/Nose/Throat oral cavity/pharynx/larynx Base of tongue: soft 02/10/2010 None Full Exam - General Ears/Nose/Throat oral cavity/pharynx/larynx Oral mucosa: a normal exam 02/10/2010 None Full Exam - General Constitutional general appearance Overall: well nourished 02/10/2010 None Full Exam - General Constitutional general appearance Overall: well developed 02/10/2010 None Full Exam - General Constitutional general appearance Overall: in no acute distress 02/10/2010 None Full Exam - General Eyes conjunctiva/eyelids Overall: conjunctiva clear 02/10/2010 None Full Exam - General Eyes pupils and irises Overall: pupils equal, round, reacti ve to light and accomodation 02/10/2010 None Full Exam - General Ears/Nose/Throat oral cavity/pharynx/larynx Mobile tongue: a normal exam 02/10/2010 None Full Exam - General Respiratory auscultation Overall: breath sounds clear bilater ally 02/10/2010 None Full Exam - General Respiratory respiratory effort/rhythm Overall: no retractions 02/10/2010 None Full Exam - General Respiratory respiratory effort/rhythm Overall: normal rate 02/10/2010 Pt. coughs repeatedly wit h deep inspiration Full Exam - General Ears/Nose/Throat external ear Overall: normal appearance 02/10/2010 None Full Exam - General Ears/Nose/Throat external nose Overall: benign appearance 02/10/2010 None Full Exam - General Ears/Nose/Throat otoscopic exam Overall: external auditory canals clear 02/10/2010 None Full Exam - General Ears/Nose/Throat otoscopic exam Overall: tympanic membranes clear 02/10/2010 None Full Exam - General Ears/Nose/Throat lips/teeth/gingiva Overall: benign lips 02/10/2010 None Full Exam - General Ears/Nose/Throat lips/teeth/gingiva Overall: normal dentition 02/10/2010 None Full Exam - General Ears/Nose/Throat lips/teeth/gingiva Overall: benign gingiva 02/10/2010 None Full Exam - General Ears/Nose/Throat oral cavity/pharynx/larynx Overall: tonsils benign 02/10/2010 None Full Exam - General Ears/Nose/Throat oral cavity/pharynx/larynx Overall: oropharyngeal mucosa clear 02/10/2010 None Full Exam - General Cardiovascular auscultation of heart Overall: regular rate 02/10/2010 None Full Exam - General Cardiovascular auscultation of heart Overall: normal heart sounds 02/10/2010 None Full Exam - General Cardiovascular auscultation of heart Overall: no murmurs 02/10/2010 None Full Exam - General Integument inspection of skin Overall: no rash, lesions 02/10/2010 None Full Exam - General Psychiatric orientation/consciousness Overall: oriented to person, place and time 02/10/2010 None Full Exam - General Psychiatric mood and affect Appropriateness: appropriate emotional responses 02/10/2010 None Full Exam - General Psychiatric mood and affect Affect: a normal exam 02/10/2010 None Full Exam - General Psychiatric mood and affect Mood: depressed 02/10/2010 None Procedures Procedure Codes Date PRESCRIP TRANSMIT A ERX SY CPT-4: G8553 11/14/2013 ROUTINE VENIPUNCTURE CPT-4: 61614 07/31/2013 ASSAY OF FREE THYROXINE CPT-4: 25869 07/31/2013 ASSAY THYROID STIM H ORMONE CPT-4: 28203 07/31/2013 COMPREHEN METABOLIC PANEL CPT-4: 04702 07/31/2013 COMPLETE CBC W/AUTO DIFF WBC CPT-4: 12851 07/31/2013 LIPID PANEL CPT-4: 48878 07/31/2013 A1C GLYCOSYLATED HEM OGLOBIN TEST CPT-4: 33446 07/31/2013 VITAMIN B 12 FOLIC ACID CPT-4: 16507|56963 07/31/2013 PRESCRIP TRANSMIT A ERX SY CPT-4: G8553 07/31/2013 PRESCRIP TRANSMIT A ERX SY CPT-4: G8553 03/30/2013 PRESCRIP TRANSMIT A ERX SY CPT-4: G8553 02/21/2013 ROUTINE VENIPUNCTURE CPT-4: 40267 02/14/2013 COMPLETE CBC W/AUTO DIFF WBC CPT-4: 40872 02/14/2013 PRESCRIP TRANSMIT A ERX SY CPT-4: G8553 12/29/2012 ROUTINE VENIPUNCTURE CPT-4: 83481 12/27/2012 ASSAY OF FREE THYROXINE CPT-4: 29178 12/27/2012 ASSAY THYROID STIM H ORMONE CPT-4: 16925 12/27/2012 COMPREHEN METABOLIC PANEL CPT-4: 34053 12/27/2012 COMPLETE CBC W/AUTO DIFF WBC CPT-4: 33049 12/27/2012 LIPID PANEL CPT-4: 66334 12/27/2012 A1C GLYCOSYLATED HEM OGLOBIN TEST CPT-4: 58652 12/27/2012 PRESCRIP TRANSMIT A ERX SY CPT-4: G8553 06/22/2012 ROUTINE VENIPUNCTURE CPT-4: 52400 05/25/2012 ASSAY OF FREE THYROXINE CPT-4: 86833 05/25/2012 ASSAY THYROID STIM H ORMONE CPT-4: 22790 05/25/2012 COMPREHEN METABOLIC PANEL CPT-4: 14332 05/25/2012 COMPLETE CBC W/AUTO DIFF WBC CPT-4: 63781 05/25/2012 LIPID PANEL CPT-4: 36988 05/25/2012 HEPATIC FUNCTION PANEL CPT-4: 81077 05/25/2012 A1C GLYCOSYLATED HEM OGLOBIN TEST CPT-4: 58741 05/25/2012 SHAVE SKIN LESION 0. 5 CM/< CPT-4: 67916 08/27/2011 ROUTINE VENIPUNCTURE CPT-4: 78728 07/29/2011 COMPREHEN METABOLIC PANEL CPT-4: 07782 07/29/2011 COMPLETE CBC W/AUTO DIFF WBC CPT-4: 72763 07/29/2011 LIPID PANEL CPT-4: 76671 07/29/2011 A1C GLYCOSYLATED HEM OGLOBIN TEST CPT-4: 74886 07/29/2011 CUR TOBACCO NON-USER CPT-4: G8457 07/01/2011 PRESCRIP TRANSMIT A ERX SY CPT-4: G8553 07/01/2011 THER/PROPH/DIAG INJ SC/IM CPT-4: 51086 01/20/2011 CEFTRIAXONE SODIUM I NJECTION CPT-4: J0696 01/20/2011 PRESCRIP TRANSMIT A ERX SY CPT-4: G8553 01/20/2011 ASSAY, GLUCOSE, BLOO D QUANT CPT-4: 44876 01/19/2011 URINALYSIS NONAUTO W /O SCOPE CPT-4: 60983 01/19/2011 THER/PROPH/DIAG INJ SC/IM CPT-4: 98860 01/19/2011 CEFTRIAXONE SODIUM I NJECTION CPT-4: J0696 01/19/2011 URINE CULTURE/ COLON Y COUNT CPT-4: 83978 01/19/2011 PRESCRIP TRANSMIT A ERX SY CPT-4: G8553 01/19/2011 PRESCRIP TRANSMIT A ERX SY CPT-4: G8553 10/15/2010 ASSAY, GLUCOSE, BLOO D QUANT CPT-4: 79896 08/26/2010 PRESCRIP TRANSMIT A ERX SY CPT-4: G8553 08/26/2010 ROUTINE VENIPUNCTURE CPT-4: 98476 08/21/2010 ASSAY OF LIPASE CPT-4: 62593 08/21/2010 A1C GLYCOSYLATED HEM OGLOBIN TEST CPT-4: 17301 08/21/2010 COMPREHEN METABOLIC PANEL CPT-4: 96588 08/21/2010 PRESCRIP TRANSMIT A ERX SY CPT-4: G8553 08/21/2010 ROUTINE VENIPUNCTURE CPT-4: 43792 06/09/2010 COMPLETE CBC W/AUTO DIFF WBC CPT-4: 29377 06/09/2010 COMPREHEN METABOLIC PANEL CPT-4: 11956 06/09/2010 PRESCRIP TRANSMIT A ERX SY CPT-4: G8553 06/09/2010 PRESCRIP TRANSMIT A ERX SY CPT-4: G8553 05/08/2010 PRESCRIP TRANSMIT A ERX SY CPT-4: G8553 04/10/2010 TRIAMCINOLONE ACET I NJ NOS CPT-4: J3301 01/15/2010 METHYLPREDNISOLONE 4 0 MG INJ CPT-4: J1030 01/15/2010 THER/PROPH/DIAG INJ SC/IM CPT-4: 44942 01/15/2010 Vital Signs Date Vital 02/12/2014 Blood Pressure 1: 122/44 Code: 8480-6 BMI: 30.2 Code: 78819-6 Heart Rate 1: 84 bpm Height: 5'2" Weight: 165 lbs 02/05/2014 Blood Pressure 1: 142/60 Code: 8480-6 BMI: 31.3 Code: 30205-2 Heart Rate 1: 80 bpm Height: 5'2" Respiratory Rate: 20 bpm Temperature: 36.8 (C ) / 98.2 (F) Weight: 171 lbs 11/14/2013 Blood Pressure 1: 148/82 Code: 8480-6 BMI: 29.6 Code: 08158-3 Heart Rate 1: 80 bpm Height: 5'2" Respiratory Rate: 20 bpm Temperature: 36.4 (C ) / 97.6 (F) Weight: 162 lbs 07/31/2013 Blood Pressure 1: 122/70 Code: 8480-6 BMI: 28.9 Code: 67354-4 Heart Rate 1: 64 bpm Height: 5'2" Respiratory Rate: 22 bpm SpO2: 97% Temperature: 35.6 (C ) / 96.1 (F) Weight: 158 lbs 07/27/2013 Blood Pressure 1: 134/82 Code: 8480-6 BMI: 30.2 Code: 62659-7 Heart Rate 1: 88 bpm Height: 5'1" Respiratory Rate: 20 bpm Temperature: 36.7 (C ) / 98.1 (F) Weight: 160 lbs 05/04/2013 Blood Pressure 1: 146/68 Code: 8480-6 BMI: 31.7 Code: 82020-3 Heart Rate 1: 72 bpm Height: 5'1" Respiratory Rate: 20 bpm Temperature: 36.8 (C ) / 98.2 (F) Weight: 168 lbs 03/30/2013 Blood Pressure 1: 128/64 Code: 8480-6 BMI: 32.6 Code: 82326-7 Heart Rate 1: 64 bpm Height: 5'1" Temperature: 36.3 (C ) / 97.3 (F) Weight: 172 lbs 5 oz 02/21/2013 Blood Pressure 1: 128/80 Code: 8480-6 BMI: 32.3 Code: 27983-4 Heart Rate 1: 68 bpm Height: 5'1" Respiratory Rate: 20 bpm Temperature: 36.7 (C ) / 98.1 (F) Weight: 171 lbs 02/14/2013 Blood Pressure 1: 140/68 Code: 8480-6 BMI: 31.6 Code: 36805-9 Heart Rate 1: 76 bpm Height: 5'1" Respiratory Rate: 20 bpm Temperature: 36.6 (C ) / 97.8 (F) Weight: 167 lbs 01/17/2013 Blood Pressure 1: 140/68 Code: 8480-6 BMI: 31.6 Code: 33096-7 Heart Rate 1: 72 bpm Height: 5'1" Respiratory Rate: 20 bpm Temperature: 36.6 (C ) / 97.9 (F) Weight: 167 lbs 12/29/2012 Blood Pressure 1: 164/80 Code: 8480-6 BMI: 31.7 Code: 12546-1 Heart Rate 1: 76 bpm Height: 5'1" Respiratory Rate: 20 bpm Temperature: 36.6 (C ) / 97.8 (F) Weight: 168 lbs 06/22/2012 Blood Pressure 1: 146/84 Code: 8480-6 BMI: 31.9 Code: 65995-8 Heart Rate 1: 72 bpm Height: 5'1" Respiratory Rate: 20 bpm Temperature: 36.5 (C ) / 97.7 (F) Weight: 169 lbs 05/25/2012 Blood Pressure 1: 140/68 Code: 8480-6 BMI: 30.6 Code: 46722-8 Heart Rate 1: 80 bpm Height: 5'1" Temperature: 36.7 (C ) / 98.0 (F) Weight: 162 lbs 08/27/2011 Blood Pressure 1: 146/72 Code: 8480-6 BMI: 30.8 Code: 85363-1 Heart Rate 1: 68 bpm Height: 5'1" Respiratory Rate: 20 bpm Temperature: 36.8 (C ) / 98.3 (F) Weight: 163 lbs 07/01/2011 Blood Pressure 1: 124/58 Code: 8480-6 BMI: 28.5 Code: 91599-5 Heart Rate 1: 68 bpm Height: 5'2" Temperature: 36.3 (C ) / 97.3 (F) Weight: 156 lbs 04/16/2011 Blood Pressure 1: 144/72 Code: 8480-6 Heart Rate 1: 80 bpm Temperature: 36.3 (C) / 97.4 (F) Weight: 158 lbs 03/24/2011 Blood Pressure 1: 126/74 Code: 8480-6 Heart Rate 1: 76 bpm Temperature: 36.7 (C) / 98.1 (F) Weight: 155 lbs 02/04/2011 Blood Pressure 1: 136/68 Code: 8480-6 Heart Rate 1: 76 bpm Temperature: 36.4 (C) / 97.6 (F) 01/20/2011 Blood Pressure 1: 130/60 Code: 8480-6 Heart Rate 1: 80 bpm Temperature: 36.8 (C) / 98.2 (F) 01/19/2011 Blood Pressure 1: 116/50 Code: 8480-6 Blood Pressure 2: 92/48 Code: 8480-6 Heart Rate 1: 84 bpm Temperature: 36.3 (C) / 97.4 (F) 01/15/2011 Blood Pressure 1: 152/74 Code: 8480-6 Heart Rate 1: 80 bpm Temperature: 36.2 (C) / 97.2 (F) Weight: 162 lbs 10/15/2010 Blood Pressure 1: 142/84 Code: 8480-6 Temperature: 36.2 (C) / 97.2 (F) Weight: 165 lbs 08/26/2010 Blood Pressure 1: 132/64 Code: 8480-6 Heart Rate 1: 64 bpm Temperature: 36.3 (C) / 97.4 (F) 08/21/2010 Blood Pressure 1: 124/68 Code: 8480-6 Heart Rate 1: 64 bpm Temperature: 36.2 (C) / 97.2 (F) Weight: 168 lbs 06/09/2010 Blood Pressure 1: 138/80 Code: 8480-6 Heart Rate 1: 68 bpm Temperature: 36.0 (C) / 96.8 (F) Weight: 167 lbs 05/21/2010 Blood Pressure 1: 136/78 Code: 8480-6 Heart Rate 1: 72 bpm Temperature: 36.2 (C) / 97.1 (F) Weight: 170 lbs 05/08/2010 Blood Pressure 1: 142/68 Code: 8480-6 Heart Rate 1: 80 bpm Temperature: 36.5 (C) / 97.7 (F) Weight: 165 lbs 04/10/2010 Blood Pressure 1: 132/80 Code: 8480-6 Heart Rate 1: 68 bpm Temperature: 36.8 (C) / 98.2 (F) Weight: 162 lbs 02/10/2010 Blood Pressure 1: 146/80 Code: 8480-6 BMI: 29.6 Code: 33233-6 Heart Rate 1: 68 bpm Height: 5'2" Temperature: 36.9 (C ) / 98.4 (F) Weight: 162 lbs Functional Status No Functional Status data History of Present Illness Symptom Name Status Resu lt Effective Date Notes edema Location on both l egs 02/05/2014 None edema Location on both a nkles 02/05/2014 None edema Onset and Resolution ongoing 02/05/2014 Still taking the lasix an d potassium edema Quality painful 02/05/2014 None edema Quality pitting 02/05/2014 None nasal discharge Location in both nares 11/14/2013 None nasal discharge Quality clear 11/14/2013 None chills Quality improving 11/14/2013 None cough Location in the arianna ng 07/31/2013 None cough Quality productive 07/31/2013 None cough Onset of Symptom 2 weeks ago 07/31/2013 None chest tightness Location diffusely 07/31/2013 None chest tightness Quality constant 07/31/2013 None chest tightness Quality heavy/pressure 07/31/2013 None fatigue Quality acute 07/31/2013 None dyskinesia or tremor Location on both hands 07/27/2013 None dyskinesia or tremor Location on the face 07/27/2013 None dyskinesia or tremor Quality worsening 07/27/2013 Thinks needs referral to neurologist dyskinesia or tremor Onset and Resolution ongoing since stroke 07/27/2013 None dizziness Quality imbala nce 07/27/2013 None dizziness Quality lighth eadedness 07/27/2013 None cough Quality productive 07/27/2013 None cough Onset of Symptom 2 weeks ago 07/27/2013 None dizziness Onset and Resolution ongoing 07/27/2013 None nausea Quality chronic 07/27/2013 None nausea Onset and Resolution ongoing 07/27/2013 None nausea Quality intermitt ent 07/27/2013 None vomiting Onset and Resolution ongoing 07/27/2013 None vomiting Quality intermi ttent 07/27/2013 None nausea Quality worsening 07/27/2013 None cough Location in the la rynx 07/27/2013 None cough Location in the arianna ng 07/27/2013 None cough Quality acute 07/27/2013 None dyskinesia or tremor Quality intention tremor 07/27/2013 None muscle weakness Quality right-sided 05/04/2013 None muscle weakness Onset and Resolution ongoing 05/04/2013 None muscle weakness Quality upper extremities 05/04/2013 None sleep apnea-obstruction Onset and Re solution ongoing 05/04/2013 None sleep apnea-obstruction Quality worsening 05/04/2013 None sleep apnea-obstruction Quality snoring 05/04/2013 None sleep apnea-obstruction Quality chronic 05/04/2013 None sleep apnea-obstruction Quality constant 05/04/2013 None nausea Quality chronic 05/04/2013 None nausea Quality constant 05/04/2013 None nausea Quality intermitt ent 05/04/2013 None nausea Onset and Resolution ongoing 05/04/2013 did not start reglan as p rescribed gastroesophageal reflux Quality chronic 05/04/2013 None gastroesophageal reflux Quality constant 05/04/2013 None fatigue Quality chronic 03/30/2013 None fatigue Quality constant 03/30/2013 None fatigue Quality worsening 03/30/2013 None dizziness Quality improv ing 03/30/2013 None pain, limb Location on t he right arm 03/30/2013 None pain, limb Onset and Resolution ongoing 03/30/2013 was unable to tolerate hi gher dose of lyrica abdominal pain Location in the epigastric area 02/21/2013 None abdominal pain Quality c hronic 02/21/2013 None abdominal pain Quality c onstant 02/21/2013 None pain, limb Location on t he right arm 02/21/2013 None pain, limb Quality const ant 02/21/2013 None pain, limb Onset and Resolution ongoing 02/21/2013 None pain, limb Quality burni ng 02/21/2013 None pain, facial Location on the right 02/21/2013 None pain, facial Quality con stant 02/21/2013 None pain, facial Onset and Resolution ongoing 02/21/2013 None muscle weakness Quality right-sided 02/14/2013 None hematochezia Quality yaquelin ght red blood per rectum 02/14/2013 Stopped ASA and Plavix hematochezia Quality int ermittent 02/14/2013 Had episode that woke up during night with blood all over blood/clothes hematochezia Onset and Resolution resolved since Wednesday02/14/2013 None muscle weakness Quality right-sided 01/17/2013 None muscle weakness Quality coldness/pain 01/17/2013 None diabetes mellitus Glucose monitoring twice daily 01/17/2013 None diabetes mellitus Blood glucose levels 150- 180's 01/17/2013 None paresthesia Location on the face 01/17/2013 None paresthesia Onset and Resolution ongoing 01/17/2013 None pain, limb Location on t he right arm 01/17/2013 None paresthesia Onset of Symptom 3 days ago 12/29/2012 None paresthesia Location on the right 12/29/2012 whole right side paresthesia Onset and Resolution ongoing 12/29/2012 None paresthesia Quality acute 12/29/2012 3 days ago paresthesia Quality numb ness 12/29/2012 None hypertension Quality acu te 12/29/2012 None hypertension Onset and Resolution ongoing 12/29/2012 None hypertension Quality int ermittent 12/29/2012 None diabetes mellitus Test results fasting glucose >140 12/29/2012 1502--400 diabetes mellitus Test results HgbA1c level 13.5 12/29/2012 None diabetes mellitus Glucose monitoring twice daily 12/29/2012 None hyperlipidemia Labs TOTA L CHOL;327 12/29/2012 None hyperlipidemia Labs LDL;_ 12/29/2012 None hyperlipidemia Labs TG;7 03 12/29/2012 None hyperlipidemia Labs HDL: 47 12/29/2012 None sores Location-Major on the right foot 06/22/2012 None sores Quality worsening 06/22/2012 None sores Color brown/scabbed 06/22/2012 None sores Color red 06/22/2012 None sores Onset and Resolution ongoing for last week 06/22/2012 None diabetes mellitus Glucose monitoring rarely checks 06/22/2012 None hypertension Quality anjel canales hypertension 05/25/2012 None hypertension Onset and Resolution ongoing 05/25/2012 None hypertension Onset of Symptom during adulthood 05/25/2012 None hypertension Quality sta ble 05/25/2012 None diabetes mellitus Quality insulin dependent 05/25/2012 None diabetes mellitus Onset of Symptom onset as an adult 05/25/2012 None diabetes mellitus Severity moderate 05/25/2012 None diabetes mellitus Test results fasting glucose >140 05/25/2012 None diabetes mellitus Glucose monitoring twice daily 05/25/2012 None mole check Location-Trunk on the upper chest 08/27/2011 None mole check Quality culp ing 08/27/2011 None paresthesia Quality numb ness 07/01/2011 to right 4th/5th fingers dyspepsia Onset and Resolution ongoing 07/01/2011 None diabetes mellitus Glucose monitoring rarely checks 07/01/2011 None dizziness Quality loss o f balance 04/16/2011 None dizziness Quality interm ittent 04/16/2011 None diabetes mellitus Test results Fingerstick blood [id number] 04/16/2011 None constipation Quality imp roving 03/24/2011 None constipation Quality 1-2 stools per week 03/24/2011 None diabetes mellitus Quality worsening 03/24/2011 has not been taking insul in because ran out and now on medicaid but has spin-down dizziness Quality improv ing as long as takes the meclizine 02/04/2011 None shoulder pain Onset and Resolution ongoing 02/04/2011 so using more hydrocodone for this pain as well follow up Illness sympto ms improved 01/20/2011 feels little better-dizzi ness improving abdominal pain Location in the LLQ 01/19/2011 None dizziness Onset and Resolution ongoing 01/19/2011 None dizziness Quality sense of room spinning 01/19/2011 None dizziness Quality lighth eadedness 01/19/2011 None diabetes mellitus Test results fasting glucose 115-140 01/19/2011 None abdominal pain Onset of Symptom 2 days ago 01/19/2011 told at ER was full of st ool diabetes mellitus Test results Fingerstick blood sugar 90-200 01/15/2011 has only been taking levemir--has stopped metformin and novolog shoulder pain Onset and Resolution ongoing 01/15/2011 started PT this week vomiting Quality acute 08/21/2010 None vomiting Quality food pa rticles/liquid. Pt states she vomits every time she puts something on her stomach. 08/21/2010 None vomiting Onset of Symptom 4 days ago 08/21/2010 None nausea Quality acute 08/21/2010 None nausea Onset of Symptom 4 months ago 08/21/2010 None dizziness Quality acute 08/21/2010 None dizziness Onset of Symptom 1 years ago, around the time her . Symptoms have worsened as the time has come around to the anniversary of his . 08/21/2010 None dizziness Quality feelin gs of unsteadiness 08/21/2010 None dizziness Quality lighth eadedness 08/21/2010 None vomiting Onset and Resolution ongoing 08/21/2010 None diabetes mellitus Severity severe 08/21/2010 BS still running 200s--no t taking short acting insulin vomiting Quality bloody 06/09/2010 None vomiting Quality worseni ng 06/09/2010 None vomiting Quality acute 06/09/2010 None vomiting Onset and Resolution sudden in onset 06/09/2010 None vomiting Onset of Symptom 1 days ago 06/09/2010 Ate TV dinner and vomitin g started. Other family members ate the same thing without incident. vomiting Triggers no kno wn associated factors 06/09/2010 None dizziness Quality improv ing 05/21/2010 had when went to ER hyperglycemia Onset and Resolution ongoing 05/21/2010 admits not using novolog like supposed follow up Illness sympto ms improved 05/21/2010 admits that had forgotten to take insulin that morning vomiting Onset and Resolution resolved 05/21/2010 None vomiting Quality improvi ng 05/08/2010 None nausea Quality improving 05/08/2010 None nausea Onset and Resolution ongoing 05/08/2010 taking protonix in mornin g and promethazine at bedtime follow up Illness sympto ms improved 05/08/2010 still nausea but not as b ad diarrhea Quality loose 05/08/2010 None nausea Quality constant 04/10/2010 None nausea Onset of Symptom 7-8 months ago 04/10/2010 since of vomiting Onset and Resolution resolved 04/10/2010 had a couple episodes on 04/06/10 constipation Onset and Resolution resolved 04/10/2010 after various OTC treatme nts diabetes mellitus Test results Fingerstick blood sugar around 200s 04/10/2010 occasionally up to 400-500--admits does not take insulin every day or routinely constipation Quality int ermittent 04/10/2010 None cough Location in the th roat 02/10/2010 None cough Quality dry 02/10/2010 None cough Onset of Symptom 3 days ago 02/10/2010 Lost voice fever Temperature 100-10 2 degrees 02/10/2010 None fever Length of Episodes 1 days 02/10/2010 None fever Quality acute 02/10/2010 None fever Quality improving 02/10/2010 None nasal discharge Location in both nares 02/10/2010 None nasal discharge Quality clear 02/10/2010 None nasal discharge Onset of Symptom 3 days ago 02/10/2010 None Advance Directives No Advance Directive data Encounters Encounter Performer Loca tion Codes Date ([id number]) OFFICE/OUTPA TIENT VISIT EST Diagnosis: EDEMA[ICD9: 782.3] Margarita CORDERO [facility] CPT-4: 16597 02/05/2014 ([id number]) OFFICE/OUTPA TIENT VISIT EST Diagnosis: PNEUMONIA, ORGANISM[ICD9: 486] Diagnosis: Non-compliant patient[ICD9: V15.81] Margarita PEREZ [facility] CPT-4: 46154 11/14/2013 OFFICE/OUTPATIENT SIT EST Diagnosis: COUGH[ICD9: 786.2] Diagnosis: MALAISE AND FATIGUE[ICD9: 780.79] Diagnosis: 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, 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] Diagnosis: HYPERLIPIDEMIA NEC/NOS[ICD9: 272.4] Diagnosis: HYPERTENSION[ICD9: 401.9] Eda CORDERO [facility] CPT-4: 15968 07/31/2013 OFFICE/OUTPATIENT SIT EST Diagnosis: 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, 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] Diagnosis: DM NEURO MANIF TYPE II[ICD9: 250.60] Diagnosis: CEREBRAL ART OCC W/ INFARCT[ICD9: 434.91] Diagnosis: OBSTRUCTIVE SLEEP APNEA[ICD9: 327.23] Diagnosis: MALAISE AND FATIGUE[ICD9: 780.79] Diagnosis: HYPERTENSION[ICD9: 401.9] Margarita CORDERO [facility] CPT-4: 96092 07/27/2013 ([id number]) OFFICE/OUTPA TIENT VISIT EST Diagnosis: OBSTRUCTIVE SLEEP APNEA[ICD9: 327.23] Diagnosis: Diabetic gastroparesis[ICD9: 250.60] Margarita PEREZ [facility] CPT-4: 42821 05/04/2013 ([id number]) OFFICE/OUTPA TIENT VISIT EST Diagnosis: 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, 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] Diagnosis: MALAISE AND FATIGUE[ICD9: 780.79] Diagnosis: OBSTRUCTIVE SLEEP APNEA[ICD9: 327.23] [facility] 46770 03/30/2013 OFFICE/OUTPATIENT SIT EST Diagnosis: Peptic ulcer disease[ICD9: 533.90] Diagnosis: Neuropathy[ICD9: 355.9] Diagnosis: CVA[ICD9: 436] Margarita CORDERO [facility] CPT-4: 43955 02/21/2013 ([id number]) OFFICE/OUTPA TIENT VISIT EST Diagnosis: Rectal bleeding[ICD9: 569.3] Diagnosis: CVA[ICD9: 436] Diagnosis: 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, 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] Diagnosis: DYSPEPSIA[ICD9: 536.8] Margarita CORDERO [facility] CPT-4: 62968 02/14/2013 ([id number]) OFFICE/OUTPA TIENT VISIT EST Diagnosis: Cerebrovascular accident[ICD9: 434.91] Diagnosis: DISTURBANCE OF SKIN SENSATION (Paresthesia)[ICD9: 782.0] Diagnosis: 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, 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] Margarita PEREZ [facility] CPT-4: 75166 01/17/2013 ([id number]) OFFICE/OUTPA TIENT VISIT EST Diagnosis: 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, 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] Diagnosis: HYPERTENSION[ICD9: 401.9] Diagnosis: HYPERLIPIDEMIA NEC/NOS[ICD9: 272.4] Diagnosis: Transient ischemic attack[ICD9: 435.9] Margarita HOPKINS Bawte [facility] CPT-4: 21078 12/29/2012 ([id number]) OFFICE/OUTPA TIENT VISIT EST Diagnosis: 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, 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] Diagnosis: HYPERTENSION[ICD9: 401.9] Diagnosis: HYPERLIPIDEMIA NEC/NOS[ICD9: 272.4] Diagnosis: MALAISE AND FATIGUE[ICD9: 780.79] Margarita MORRISON NDER DO [facility] CPT-4: 09451 12/27/2012 OFFICE/OUTPATIENT SIT EST Diagnosis: 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, 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] Diagnosis: Diabetic ulcer of lower extremity[ICD9: 250.80] Margarita MORRISON NDER DO [facility] CPT-4: 83297 06/22/2012 OFFICE/OUTPATIENT SIT EST Diagnosis: URINARY INCONTINENCE[ICD9: 788.30] Diagnosis: HYPERTENSION[ICD9: 401.9] Diagnosis: 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, 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] Margarita Parmjittiburciopaloma CALDWELLMARGARITA RobertaLion PARMJIT NDER DO [facility] CPT-4: 37735 05/25/2012 OFFICE/OUTPATIENT SIT EST Diagnosis: 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, 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] Diagnosis: Diabetic gastroparesis[ICD9: 250.60] Diagnosis: Hyponatremia[ICD9: 276.1] Margarita GARCÍA RobertaLino PARMJITNDER [facility] CPT-4: 28654 07/01/2011 ([id number]) OFFICE/OUTPA TIENT VISIT EST Margarita GARCÍA SLino MORRISON NDER DO [facility] CPT-4: 20196 04/16/2011 ([id number]) OFFICE/OUTPA TIENT VISIT EST Margarita Parmjittiburciopaloma MARGARITA SLino MORRISON NDER DO [facility] CPT-4: 37267 03/24/2011 ([id number]) OFFICE/OUTPA TIENT VISIT EST Margarita GARCÍA SLino PARMJIT NDER DO [facility] CPT-4: 03667 02/04/2011 ([id number]) OFFICE/OUTPA TIENT VISIT EST Margarita GARCÍA RobertaLino PARMJIT NDER DO [facility] CPT-4: 70056 01/20/2011 ([id number]) OFFICE/OUTPA TIENT VISIT EST [facility]ita [facility] CPT-4: 95553 01/19/2011 ([id number]) OFFICE/OUTPA TIENT VISIT EST Margarita [facility] CPT-4: 78906 01/15/2011 ([id number]) OFFICE/OUTPA TIENT VISIT, EST Margarita [facility] CPT-4: 15703 10/15/2010 ([id number]) OFFICE/OUTPA TIENT VISIT, EST Margarita GARCÍA [facility] CPT-4: 93947 08/26/2010 ([id number]) OFFICE/OUTPA TIENT VISIT, EST Margarita GARC[facility]A [facility] CPT-4: 38136 08/21/2010 ([id number]) OFFICE/OUTPA TIENT VISIT, EST Margarita Lala [facility] CPT-4: 05646 06/09/2010 ([id number]) OFFICE/OUTPA TIENT VISIT, EST Margarita GARCÍA SLino [facility] CPT-4: 46598 05/21/2010 ([id number]) OFFICE/OUTPA TIENT VISIT, EST Margarita GARCÍA [facility]. [facility] CPT-4: 72141 05/08/2010 ([id number]) OFFICE/OUTPA TIENT VISIT, EST Margarita [facility] CPT-4: 19234 04/10/2010 ([id number]) OFFICE/OUTPA TIENT VISIT, EST Margarita GARCÍA SLino [facility] CPT-4: 90566 02/10/2010 Plan of Care Planned Activity Notes C odes Status Date Appointment: [phone] [id number] 02/19 no answer 02/19 no show FOLLOW UP 02/19/2014 Appointment: Margarita Cordero WPtel: [phone] [facility] WT CHECK 02/12/2014 Patient Education: Patient Medication Summary Completed 02/12/2014 Visit Plan: Strict 2gm Na diet Supp ort stockings Continue lasixa and potassium Elevate legs when sitting 1week weight and BP check 02/05/2014 Appointment: Margarita Cordero WPtel: [address] [place], [place] [phone] FOLLOW UP 02/05/2014 Patient Education: Patient Medication Summary Completed 02/05/2014 Visit Plan: Finish zithromax Add ce fdinir for 1wk 11/14/2013 Appointment: Margarita Cordero WPtel: [address] [place], [place] [phone] [place] [address] Follow Up 11/14/2013 Patient Education: Patient Medication Summary Completed 11/14/2013 Visit Plan: Will bean picker CPAP machkhalif ne which she hasn't yet done since sleep study determined sleep apnea. Had labs drawn today. Will follow-up Complete all antibiotics. 07/31/2013 Appointment: Eda Velazquez WPtel: [address] [place], [place] [phone] 07/31/2013 Patient Education: Patient Medication Summary Completed 07/31/2013 Visit Plan: See Neurology Unable to restart blood thinners due to ongoing GI probs and hx of GI bleed--is taking aspirin Pt had allergic reaction to neurontin, dizzy with lyrica, can't afford cymbalta Still continues to be noncompliant with diabetes Check CBC, CMP, Lipids, HbA1C, TSH, Free T4, B12 Pt will bring in med bottles in AM to update list 07/27/2013 Appointment: Margarita Cordero WPtel: [address] [place], [place] [phone] ACUTE ILLNESS 07/27/2013 Patient Education: Patient Medication Summary Completed 07/27/2013 Appointment: Margarita Cordero WPtel: [address] [place], [place] [phone] 06/23 message states call could not be c ompleted at that time-CN FOLLOW UP 06/27/2013 Visit Plan: Autopap trial to find c orrect pressure Start Reglan as prescribed 05/04/2013 Appointment: Margarita Cordero WPtel: [phone] [place], [place] [phone] FOLLOW UP 05/04/2013 Patient Education: Patient Medication Summary Completed 05/04/2013 Visit Plan: Increase Levemir to 100 u sc BID and continue accuchecks Pt has been noncompliant with taking novolog before meals DC Lyrica Decrease Reglan to 5mg po q AC Sleep study Fwup 1mo after sleep study 03/30/2013 Appointment: Margarita Cordero WPtel: [facility] US rescheduled from 03/23/13 due to weather- LB...03/29 vm left and reminder need some type of payment towards balance due FOLLOW UP 03/30/2013 Patient Education: Patient Medication Summary Completed 03/30/2013 Appointment: Margarita Cordero WPtel: [address] [place], [place] [phone] 03/13 left message/ pt called 20 min after appt to say she fell asleep that is why missed FOLLOW UP 03/14/2013 Visit Plan: Continue to hold Plavix and aspirin Continue protonix Add Carafate 1gram q AC and HS 02/21/2013 Visit Plan: Continue to hold Plavix and aspirin Continue protonix Add Carafate 1gram q AC and HS Increase Lyrica to 100mg po BID 02/21/2013 Appointment: Margarita Cordero WPtel: [address] [facility] FOLLOW UP 02/21/2013 Patient Education: Patient Medication Summary Completed 02/21/2013 Visit Plan: Continue to hold plavix and aspirin No NSAIDS Check CBC today Proceed with EGD/colonoscopy Continue OT for right arm Increase Levemir to 90u sc BID and continue accuchecks q AC and HS due to uncontrolled BS 02/14/2013 Appointment: Margarita Cordero WPtel: [facility] 02/13 call could not be completed at [facility] time FOLLOW UP 02/14/2013 Patient Education: Patient Medication Summary Completed 02/14/2013 Appointment: Margarita Cordero WPtel: [address] [place], [place] [phone] [place] FOLLOW UP 01/26/2013 Visit Plan: Continue plavix/aspirin and risk factor stratification Start PT/OT Proceed with dilated eye exam Increase Levemir to 80u sc BID 01/17/2013 Appointment: Margarita Cordero WPtel: [address] [place], [place] [phone] FOLLOW UP 01/17/2013 Patient Education: Patient Medication Summary Completed 01/17/2013 Visit Plan: Noncompliant and uncont rolled--only taking Levemir 65u sc BID but not taking novolog as ordered Increase Levemir to 75u sc BID and checkBS at least BID due to fluctuating BS, uncontrolled BS Pt refuses to take short-acting with meals because says drops her too low but doesn't check BS when feels low Check CT of head now Check Carotid dopplers and 2-D ECHO Start Aspirin 81mg daily Increase Lovaza to 4grams daily and start Lipitor Increase Norvasc to 10mg daily 12/29/2012 Appointment: Margarita Cordero WPtel: [address] [place], [place] [phone] 12/28 left message pt called back and co nfirmed appt and will pay past balance FOLLOW UP 12/29/2012 Patient Education: Patient Medication Summary Completed 12/29/2012 Patient Education: Lipitor - 18+ - No [place] Completed 12/29/2012 Appointment: Margarita Cordero WPtel: [address] [place], [place] [phone] [place] LAB 12/27/2012 Patient Education: Patient Medication Summary Completed 12/27/2012 Visit Plan: Start levaquin and woun d care Once again long discussion about blood sugar control 06/22/2012 Appointment: [facility] [phone] [facility] 06/21 ACUTE ILLNESS 06/22/2012 Patient Education: Patient Medication Summary Completed 06/22/2012 Visit Plan: restless leg and incont inence issues. (>6 months) Reports Restless leg has been several years. Jessy referral for incontinence. Pt. reports she has been to a family wedding and has not been eatting well. Discussed that patient needs yearly eye exam. Pt. asks why she is seeing Dr. Becker. Explained that she has TIA history and that as an uncontrolled diabetic she is more likely to encounter cardiac problems and that she has hypertension additionally. Refils phoned to [facility]. 05/25/2012 Visit Plan: restless leg and incont inence issues. (>6 months) Reports Restless leg has been several years. Jessy referral for incontinence. Pt. reports she has been to a family wedding and has not been eatting well. Discussed that patient needs yearly eye exam. Pt. asks why she is seeing Dr. Becker. Explained that she has TIA history and that as an uncontrolled diabetic she is more likely to encounter cardiac problems and that she has hypertension additionally. Refils phoned to [facility]. Meds reviewed and pt. states does not need any other refils other than what were accomplished and states she is only taking Levimir BID (was noted as TID in chart). 05/25/2012 Appointment: Ольга Osorio WPtel: [address] [place] [id number] ACUTE ILLNESS 05/25/2012 Patient Education: Patient Medication Summary Completed 05/25/2012 Visit Plan: Removal of irritated SK as above 08/27/2011 Appointment: Margarita Cordero WPtel: [address] [place], [place] [phone] ACUTE ILLNESS 08/27/2011 Patient Education: Patient Medication Summary Completed 08/27/2011 Appointment: Margarita Cordero WPtel: [address] [place], [place] [phone] [facility] 07/29/2011 Appointment: Margarita Corderotel: [address] [place], [place] [phone] FOLLOW UP 07/29/2011 Patient Education: Patient Medication Summary Completed 07/29/2011 Visit Plan: Restart Reglan Once aga in discussed need for tight BS control, but pt admits will not take insulin routinely, and won't buy it if she can't afford it 07/01/2011 Appointment: Margarita Cordero WPtel: [address] [place], [place] [phone] ACUTE ILLNESS 07/01/2011 Patient Education: Patient Medication Summary Completed 07/01/2011 Visit Plan: Continue levemir at 60u daily Increase Novolog to 6u with meals Continue accuchecks Continur meclizine prn 04/16/2011 Appointment: Margarita Cordero WPtel: [address] [place], [place] [phone] FOLLOW UP 04/16/2011 Patient Education: Patient Medication Summary Completed 04/16/2011 Visit Plan: Pt is noncompliant with meds and diet for DM and states if she can't afford meds she just won't take them--we have given her samples when we have them and tried to get meds through[facility], but pt does not qualify since she has Medicare and Medicaid [facility] to get meds through their pharmacy 03/24/2011 Appointment: Margarita Cordero WPtel: [address] [place], [place] [phone] Hospital Follow Up 03/24/2011 Patient Education: Patient Medication Summary Completed 03/24/2011 Appointment: Margarita Cordero WPtel: [address] [place], [place] [phone] FOLLOW UP 02/12/2011 Visit Plan: Cont meclizine Get up s low and acclimate body before walks Cont PT for shoulder and Hydrocodone refilled Check HbA1C in 2mos 02/04/2011 Appointment: Margarita Cordero WPtel: [address] [place] [address] FOLLOW UP 02/04/2011 Patient Education: Patient Medication Summary Completed 02/04/2011 Visit Plan: Rocephin 1gm IM given C ont meclizine Start Cipro tomorrow No work or driving until next week 01/20/2011 Appointment: Margarita Cordero WPtel: [address] [place] [address] FOLLOW UP 01/20/2011 Patient Education: Patient Medication Summary Completed 01/20/2011 Visit Plan: 1gm Rocephin given IM f or UTI Meclizine for dizziness Moniter BS Continue Miralax Refuses admission 01/19/2011 Appointment: Margarita Cordero WPtel: [address] [place] [address] ER Follow UP 01/19/2011 Patient Education: Patient Medication Summary Completed 01/19/2011 Visit Plan: Increase levemir to 70u sc BID Restart Novolog 5u before lunch and evening meal Cont accuchecks Cont to hold metformin 01/15/2011 Appointment: Margarita Cordero WPtel: [address] [place] [address] Hospital Follow Up 01/15/2011 Patient Education: Patient Medication Summary Completed 01/15/2011 Appointment: Margarita Cordero WPtel: [address] [place] [address] UA 12/10/2010 Patient Education: Patient Medication Summary Completed 12/10/2010 Visit Plan: will refil hydrocodone- [facility]. Cymbalta 30 mg X4 sample bottles. 10/15/2010 Appointment: Ольга Osorio WPtel: [address] [place] [address] ACUTE ILLNESS 10/15/2010 Patient Education: Patient Medication Summary Completed 10/15/2010 Visit Plan: 376 blood sugar. Wants a letter for Suzanne So. Pt reports compliance with insulin dosing in the morning and evening and also metformin. Pt. reports mealtime insulin is not being used duri ng the week but reports that she is able to take it during the weekend. Wants to re-do Levimir Flexpen paperwork. Pt willing to see counselor for grief management. Phoned pt. to let her know that she has an appnt. with Dr. Bowen at [facility] on September 09 at 9 am. Pt. initially tries to decline the appnt. because of her appnt. with Dr. Bhakta but I remind her that the time for that appnt. is in the afternoon and she needs to make this a priority. Pt. agrees to take meal time insulin daily and attend the appnt. 08/26/2010 Appointment: Ольга Osorio WPtel: [address] [place] [address] ACUTE ILLNESS 08/26/2010 Patient Education: Patient Medication Summary Completed 08/26/2010 Visit Plan: Check CMP, Lipase, HbA1 C now Restart Protonix See Dr. Bhakta for EGD and colonoscopy 08/21/2010 Appointment: Margarita Cordero WPtel: [address] [place] [address] ACUTE ILLNESS 08/21/2010 Patient Education: Patient Medication Summary Completed 08/21/2010 Visit Plan: pt reports history of h ernia. Will check lab work CBC, CMP and see if any infection apparent. Discussed the need to stay hydrated and keep blood sugar monitored. 06/09/2010 Appointment: Ольга Osorio WPtel: [address] [place] [address] [place] ACUTE ILLNESS 06/09/2010 Patient Education: Patient Medication Summary Completed 06/09/2010 Visit Plan: Increase Levemir to 90u sc BID and use Novolog as ordered Cont accuchecks Once again discussed importance of BS control and how uncontrolled BS is causing more health problems BS readings in 2wks 05/21/2010 Appointment: Margarita Cordero WPtel: [address] [place] [address] ER Follow UP 05/21/2010 Patient Education: Patient Medication Summary Completed 05/21/2010 Visit Plan: Cont Protonix and Phene rgan and add Reglan due to likely some diabetic gastroparesis 05/08/2010 Appointment: Margarita Cordero WPtel: [address] [place] [address] FOLLOW UP 05/08/2010 Patient Education: Patient Medication Summary Completed 05/08/2010 Visit Plan: Trial of Protonix 40mg QD Senokot-S 2po BID Discussed importance of BS control and taking insulin routinely and long-term sequelae of uncontrolled BS 04/10/2010 Appointment: Margarita Cordero WPtel: [address] [place] [address] ACUTE ILLNESS 04/10/2010 Patient Education: Patient Medication Summary Completed 04/10/2010 Visit Plan: Codeine/guif cough syru p and Cefdinir 300 mg BID for 10 days. Pt will seek re-eval for worsening symptoms. Pt. reports improvement of depression on Cymbalta. 02/10/2010 Appointment: Ольга Osorio WPtel: [address] [place] [address] ACUTE ILLNESS 02/10/2010 Patient Education: Patient Medication Summary Completed 02/10/2010 Appointment: Margarita Cordero WPtel: [address] [place] [address] INJECTION 01/15/2010 Patient Education: Patient Medication Summary Completed 01/15/2010 Instructions Comment . Increase levemir t o 70u sc BID Restart Novolog 5u before lunch and evening meal Cont accuchecks Cont to hold metformin . 376 blood sugar. Wants a letter for Suzanne So. Pt reports compliance with insulin dosing in the morning and evening and also metformin. Pt. reports mealtime insulin is not being used during the week but reports that she is able to take it during the weekend. Wants to re-do Levimir Flexpen paperwork. Pt willing to see counselor for grief management. Phoned pt. to let her know that she has an appnt. with Dr. Bowen at [facility] on September 09 at 9 am. Pt. initially tries to decline the appnt. because of her appnt. with Dr. Bhakta but I remind her that the time for that appnt. is in the afternoon and she needs to make this a priority. Pt. agrees to take meal time insulin daily and attend the appnt. . Continue plavix/as pirin and risk factor stratification Start PT/OT Proceed with dilated eye exam Increase Levemir to 80u sc BID . Autopap trial to f ind correct pressure Start Reglan as prescribed . Codeine/guif coug h syrup and Cefdinir 300 mg BID for 10 days. Pt will seek re-eval for worsening symptoms. Pt. reports improvement of depression on Cymbalta. . Continue to hold P lavix and aspirin Continue protonix Add Carafate 1gram q AC and HS . Cont Protonix and Phenergan and add Reglan due to likely some diabetic gastroparesis . will refil hydroco [facility]. Cymbalta 30 mg X4 sample bottles. . Noncompliant and u ncontrolled--only taking Levemir 65u sc BID but not taking novolog as ordered Increase Levemir to 75u sc BID and checkBS at least BID due to fluctuating BS, uncontrolled BS Pt refuses to take short-acting with meals because says drops her too low but doesn't check BS when feels low Check CT of head now Check Carotid dopplers and 2-D ECHO Start Aspirin 81mg daily Increase Lovaza to 4grams daily and start Lipitor Increase Norvasc to 10mg daily . 1gm Rocephin given IM for UTI Meclizine for dizziness Moniter BS Continue Miralax Refuses admission Pt has not started C PAP treatment and admits to missing doses of medications and not sure what is taking. See Neurology Unable to restart blood thinners due to ongoing GI probs and hx of GI bleed--is taking aspirin Pt had allergic reaction to neurontin, dizzy with lyrica, can't afford cymbalta Still continues to be noncompliant with diabetes Check CBC, CMP, Lipids, HbA1C, TSH, Free T4, B12 Pt will bring in med bottles in AM to update list . Will bean picker CPAP machine which she hasn't yet done since sleep study determined sleep apnea. Had labs drawn today. Will follow-up Complete all antibiotics. . Trial of Protonix 40mg QD Senokot-S 2po BID Discussed importance of BS control and taking insulin routinely and long-term sequelae of uncontrolled BS Once again pt has crocker d a major medical event--rectal bleeding--and did not seek medical attention, just as she did not seek medical attention with her stroke. Continue to hold plavix and aspirin No NSAIDS Check CBC today Proceed with EGD/colonoscopy Continue OT for right arm Increase Levemir to 90u sc BID and continue accuchecks q AC and HS due to uncontrolled BS . Increase Levemir t o 90u sc BID and use Novolog as ordered Cont accuchecks Once again discussed importance of BS control and how uncontrolled BS is causing more health problems BS readings in 2wks . Strict 2gm Na diet Support stockings Continue lasixa and potassium Elevate legs when sitting 1week weight and BP check . restless leg and i ncontinence issues. (>6 months) Reports Restless leg has been several years. Jessy referral for incontinence. Pt. reports she has been to a family wedding and has not been eatting well. Discussed that patient needs yearly eye exam. Pt. asks why she is seeing Dr. Becker. Explained that she has TIA history and that as an uncontrolled diabetic she is more likely to encounter cardiac problems and that she has hypertension additionally. Refils phoned to [facility]. . restless leg and i ncontinence issues. (>6 months) Reports Restless leg has been several years. Jessy referral for incontinence. Pt. reports she has been to a family wedding and has not been eatting well. Discussed that patient needs yearly eye exam. Pt. asks why she is seeing Dr. Becker. Explained that she has TIA history and that as an uncontrolled diabetic she is more likely to encounter cardiac problems and that she has hypertension additionally. Refils phoned to [facility]. Meds reviewed and pt. states does not need any other refils other than what were accomplished and states she is only taking Levimir BID (was noted as TID in chart). . Rocephin 1gm IM gi dominga Cont meclizine Start Cipro tomorrow No work or driving until next week . Finish zithromax Add cefdinir for 1wk . Start levaquin and wound care Once again long discussion about blood sugar control . Check CMP, Lipase, HbA1C now Restart Protonix See Dr. Bhakta for EGD and colonoscopy . Increase Levemir t o 100u sc BID and continue accuchecks Pt has been noncompliant with taking novolog before meals DC Lyrica Decrease Reglan to 5mg po q AC Sleep study Fwup 1mo after sleep study . Cont meclizine Get up slow and acclimate body before walks Cont PT for shoulder and Hydrocodone refilled Check HbA1C in 2mos . pt reports history of hernia. Will check lab work CBC, CMP and see if any infection apparent. Discussed the need to stay hydrated and keep blood sugar monitored. Shave removal of irr itated SK then cautery to base--cleansed with alcohol and betadine, anesthesized at base with 1% lidocaine with epinephrine, excised at base with curved 15 blade scalpel, base cauterized, neosporin and bandage applied, tolerated well with no complications. Removal of irritated SK as above . Continue to hold P lavix and aspirin Continue protonix Add Carafate 1gram q AC and HS Increase Lyrica to 100mg po BID . Pt is noncompliant with meds and diet for DM and states if she can't afford meds she just won't take them--we have given her samples when we have them and tried to get meds [facility], but pt does not qualify since she has Medicare and Medicaid [facility] to get meds through their pharmacy . Continue levemir a t 60u daily Increase Novolog to 6u with meals Continue accuchecks Continur meclizine prn . Restart Reglan Once again discussed need for tight BS control, but pt admits will not take insulin routinely, and won't buy it if she can't afford it
--- OUTSIDE RECORDS SUMMARY | 2020-04-01 19:48 | XMS REPORT | Continuity of Care Document ---
Demographics Preferred Language Unknown Marital Status Unknown Hoahaoism Affiliation Unknown Race Unknown Ethnic Group Unknown Author Organization Unknown Address Unknown Phone Unavailable Allergies Active Description Code Type Severity Reaction Onset Reported/Identified Relationship to Patient Clinical Status Yes Lyrica Drug Allergy N/A N/A 04/07/2014 Yes Neurontin Drug Allergy N/A N/A 04/07/2014 Yes Plavix Drug Allergy N/A N/A 04/07/2014 Yes clopidogrel [id number] Drug Aller gy Unknown BLEEDING 04/24/2016 Yes gabapentin [id number] Drug Allerg y Unknown N/A 04/24/2016 Yes lisinopril [id number] Drug Allerg y Mild N/A 12/29/2016 Yes sulfamethoxazole [id number] Drug Allergy Mild N/A 12/29/2016 Yes trimethoprim [id number] Drug Allergy Mild N/A 12/29/2016 Yes vancomycin [id number] Drug Allerg y Mild N/A 12/29/2016 Medications There is no data. 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 05/15/2010 Ot 250.00 05/15/2010 Ot 401.9 05/15/2010 Ot 599.0 05/15/2010 Ot 787.03 05/15/2010 Ot 787.91 05/15/2010 Ot V58.67 05/15/2010 Ot V58.69 09/09/2010 LIANA MCADAMS DO 309.0 AD ADJ D/O W DEPRESSED 09/09/2010 OLYA WILLIS MD 309.0 AD ADJ D/O W DEPRESSED 09/09/2010 ALBA LICEA, OLYA 309.0 AD ADJ D/O W DEPRESSED 09/09/2010 ALBA LICEA, OLYA 309.0 AD ADJ D/O W DEPRESSED 09/09/2010 LIANA MCADAMS DO 309.0 AD ADJ D/O W DEPRESSED 09/09/2010 ALBA LICEA, OLYA 309.0 AD ADJ D/O W DEPRESSED 09/09/2010 OLYA WILLIS MD 309.0 AD ADJ D/O W DEPRESSED 09/09/2010 ALBA LICEA, OLYA 309.0 AD ADJ D/O W DEPRESSED 11/03/2010 Ot 530.81 11/03/2010 Ot 535.40 11/03/2010 Ot 564.00 11/03/2010 Ot V76.51 11/17/2010 Ot 211.3 HONG GN NEOPLASM LG BOWEL 11/17/2010 Ot V76.51 SCR EEN MAL NEOP- COLON 11/19/2010 LIANA MCADAMS DO 311 MO DEPRESS NOS 11/19/2010 OLYA WILLIS MD 311 MO DEPRESS NOS 11/19/2010 OLYA WILLIS MD 311 MO DEPRESS NOS 11/19/2010 OLYA WILLIS MD 311 MO DEPRESS NOS 11/19/2010 LIANA MCADAMS DO 311 MO DEPRESS NOS 11/19/2010 ALBA LICEA, OLYA 311 MO DEPRESS NOS 11/19/2010 OLYA WILLIS MD 311 MO DEPRESS NOS 11/19/2010 OLYA WILLIS MD 311 MO DEPRESS NOS 12/26/2010 Ot 250.62 WAYNE B W NEURO MANIFEST, TYPE II OR UNSPEC 12/26/2010 Ot 300.4 DYST HYMIC DISORDER 12/26/2010 Ot 337.1 AUT NEUROPTHY IN OTH DIS 12/26/2010 Ot 401.9 HYPE RTENSION NOS 12/26/2010 Ot 493.90 AST HMA, UNSPECIFIED 12/26/2010 Ot 530.81 ESO PHAGEAL REFLUX 12/26/2010 Ot 780.52 INS OMNIA, UNSPECIFIED 12/26/2010 Ot 812.00 FX UP END HUMERUS NOS-CL 12/26/2010 Ot 910.0 ODALYS JACLYN HEAD 12/26/2010 Ot E849.0 ACC IDENT IN HOME 12/26/2010 Ot E885.9 FAL L FROM SLIPPING, TRIPPING, OR STUMBLI 12/26/2010 Ot 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00 UNS PEC CONSTIPATION 01/17/2011 Ot V58.67 KALEB G-TERM (CURRENT) USE OF INSULIN 01/17/2011 Ot V58.69 OT MED,LT,CURRENT USE 03/09/2011 Ot 560.32 FEC AL IMPACTION 03/09/2011 Ot 564.00 UNS PEC CONSTIPATION 03/09/2011 Ot 560.32 FEC AL IMPACTION 03/09/2011 Ot 564.00 UNS PEC CONSTIPATION 04/13/2011 Ot 719.61 MELI NT SYMPTOM NEC-SHLDER 04/13/2011 Ot V57.21 ENC OUNTER FOR OCCUPATIONAL THERAPY 04/13/2011 Ot V58.43 AFT ERCARE POST SURGERY INJURY/TRAUMA 07/13/2011 Ot 719.61 MELI NT SYMPTOM NEC-SHLDER 07/13/2011 Ot V57.21 ENC OUNTER FOR OCCUPATIONAL THERAPY 07/13/2011 Ot V58.43 AFT ERCARE POST SURGERY INJURY/TRAUMA 08/21/2011 Ot 354.2 ULNA R NERVE LESION 08/21/2011 Ot V58.69 OT MED,LT,CURRENT USE 10/19/2011 Ot 719.61 MELI NT SYMPTOM NEC-SHLDER 10/19/2011 Ot V57.21 ENC OUNTER FOR OCCUPATIONAL THERAPY 10/19/2011 Ot V58.43 AFT ERCARE POST SURGERY INJURY/TRAUMA 01/21/2012 Ot 719.61 MELI NT SYMPTOM NEC-SHLDER 01/21/2012 Ot V57.21 ENC OUNTER FOR OCCUPATIONAL THERAPY 01/21/2012 Ot V58.43 AFT ERCARE POST SURGERY INJURY/TRAUMA 08/14/2012 Ot 719.41 MELI NT PAIN-SHLDER 09/20/2012 Ot 250.80 WAYNE B W OTH SPEC MANIFEST, TYPE II OR UNS 09/20/2012 Ot 707.10 ULC ER OF LOWER LIMB NOS 09/20/2012 Ot V58.67 KALEB G-TERM (CURRENT) USE OF INSULIN 10/04/2012 Ot 250.80 WAYNE B W OTH SPEC MANIFEST, TYPE II OR UNS 10/04/2012 Ot 707.10 ULC ER OF LOWER LIMB NOS 10/04/2012 Ot V58.67 KALEB G-TERM (CURRENT) USE OF INSULIN 02/20/2013 VERONICA LICEA, RALPH Mcgee Ot 455.0 INT HEMORRHOID W/O COMPL 02/20/2013 RALPH MARTIN MD Ot 455.3 EXT HEMORRHOID W/O COMPL 02/20/2013 VERONICA LICEA, RALPH Mcgee Ot 531.90 STOMACH ULCER NOS 02/20/2013 VERONICA LICEA, RALPH Mcgee Ot 562.10 DIVERTICULOSIS COLON (W/O MENT OF HEMORR 02/20/2013 VERONICA LICEA, RALPH Mcgee Ot 789.06 ABDOMINAL PAIN, EPIGASTRIC 03/08/2013 Ot 438.89 OTH LATE EFFECT- CEREBROVASCULAR DISEASE 03/08/2013 Ot 728.87 MUS MIREYA WEAKNESS (GENERALIZED) 03/08/2013 Ot V57.21 ENC OUNTER FOR OCCUPATIONAL THERAPY 04/22/2013 MARGARITA CORDERO DO Ot 327.23 OBSTRUCTIVE SLEEP APNEA (ADULT) (PEDIATR 06/19/2013 MARGARITA CORDERO DO Ot 438.20 LATE EFF-CEREBR DIS,HEMIPLEGIA AFFECTING 06/19/2013 MARGARITA CORDERO DO Ot V57.21 ENCOUNTER FOR OCCUPATIONAL THERAPY 10/05/2013 NAJMA FLANAGAN MD Ot 356. 9 IDIO PERIPH NEURPTHY NOS 10/05/2013 NAJMA FLANAGAN MD Ot 438. 6 ALTERATIONS OF SENSATIONS 10/05/2013 NAJMA FLANAGAN MD Ot V57. 21 ENCOUNTER FOR OCCUPATIONAL THERAPY 11/12/2013 KATHLEEN LICEA, JD Garzon Ot 486 PNEUMONIA, ORGANISM NOS 11/12/2013 KATHLEEN LICEA, JD Garzon Ot 780. 4 DIZZINESS AND GIDDINESS 04/07/2014 LIANA MCADAMS DO 250.00 DIABETES MELLITUS WITHOUT MENTION OF COMPLICATION TYPE II OR UNSPECIFIED TYPE NOT STATED UNCONTROLLED 04/07/2014 LIANA MCADAMS DO K 333.94 RESTLESS LEGS SYNDROME (RLS) 04/07/2014 LIANA MCADAMS DO K 338.29 OTHER CHRONIC PAIN 04/07/2014 LIANA MCADAMS DO K 357.2 POLYNEUROPATHY IN DIABETES 04/07/2014 LIANA MCADAMS DO 401.1 HYPERTENSION, BENIGN ESSENTIAL 04/07/2014 LIANA MCADAMS DO K 530.81 GERD 04/07/2014 OLYA WILLIS MD 250.0 0 DIABETES MELLITUS WITHOUT MENTION OF COMPLICATION TYPE II OR UNSPECIFIED TYPE NOT STATED UNCONTROLLED 04/07/2014 OLYA WILLIS MD 333.9 4 RESTLESS LEGS SYNDROME (RLS) 04/07/2014 OLYA WILLIS MD 338.2 9 OTHER CHRONIC PAIN 04/07/2014 OLYA WILLIS MD 357.2 POLYNEUROPATHY IN DIABETES 04/07/2014 OLYA WILLIS MD 401.1 HYPERTENSION, BENIGN ESSENTIAL 04/07/2014 OLYA WILLIS MD 530.8 1 GERD 04/07/2014 OLYA WILLIS MD 250.0 0 DIABETES MELLITUS WITHOUT MENTION OF COMPLICATION TYPE II OR UNSPECIFIED TYPE NOT STATED UNCONTROLLED 04/07/2014 OLYA WILLIS MD 333.9 4 RESTLESS LEGS SYNDROME (RLS) 04/07/2014 OLYA WILLIS MD 338.2 9 OTHER CHRONIC PAIN 04/07/2014 OLYA WILLIS MD 357.2 POLYNEUROPATHY IN DIABETES 04/07/2014 OLYA WILLIS MD 401.1 HYPERTENSION, BENIGN ESSENTIAL 04/07/2014 OLYA WILLIS MD 530.8 1 GERD 04/07/2014 OLYA WILLIS MD 250.0 0 DIABETES MELLITUS WITHOUT MENTION OF COMPLICATION TYPE II OR UNSPECIFIED TYPE NOT STATED UNCONTROLLED 04/07/2014 OLYA WILLIS MD 333.9 4 RESTLESS LEGS SYNDROME (RLS) 04/07/2014 OLYA WILLIS MD 338.2 9 OTHER CHRONIC PAIN 04/07/2014 OLYA WILLIS MD 357.2 POLYNEUROPATHY IN DIABETES 04/07/2014 OLYA WILLIS MD 401.1 HYPERTENSION, BENIGN ESSENTIAL 04/07/2014 OLYA WILLIS MD 530.8 1 GERD 04/07/2014 MCADAMS LIANA POWERS K 250.00 DIABETES MELLITUS WITHOUT MENTION OF COMPLICATION TYPE II OR UNSPECIFIED TYPE NOT STATED UNCONTROLLED 04/07/2014 LIANA MCADAMS DO K 333.94 RESTLESS LEGS SYNDROME (RLS) 04/07/2014 MCADAMS LIANA POWERS K 338.29 OTHER CHRONIC PAIN 04/07/2014 LIANA MCADAMS DO K 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 POLYNEUROPATHY IN DIABETES 04/07/2014 LIANA MCADAMS DO K 401.1 HYPERTENSION, BENIGN ESSENTIAL 04/07/2014 LIANA MCADAMS DO K 530.81 GERD 04/07/2014 OLYA WILLIS MD 250.0 0 DIABETES MELLITUS WITHOUT MENTION OF COMPLICATION TYPE II OR UNSPECIFIED TYPE NOT STATED UNCONTROLLED 04/07/2014 OLYA WILLIS MD 333.9 4 RESTLESS LEGS SYNDROME (RLS) 04/07/2014 OLYA WILLIS MD 338.2 9 OTHER CHRONIC PAIN 04/07/2014 OLYA WILLIS MD 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 POLYNEUROPATHY IN DIABETES 04/07/2014 OLYA WILLIS MD 401.1 HYPERTENSION, BENIGN ESSENTIAL 04/07/2014 OLYA WILLIS MD 530.8 1 GERD 04/07/2014 OLYA WILLIS MD 250.0 0 DIABETES MELLITUS WITHOUT MENTION OF COMPLICATION TYPE II OR UNSPECIFIED TYPE NOT STATED UNCONTROLLED 04/07/2014 OLYA WILLIS MD 333.9 4 RESTLESS LEGS SYNDROME (RLS) 04/07/2014 OLYA WILLIS MD 338.2 9 OTHER CHRONIC PAIN 04/07/2014 OLYA WILLIS MD 357.2 POLYNEUROPATHY IN DIABETES 04/07/2014 OLYA WILLIS MD 401.1 HYPERTENSION, BENIGN ESSENTIAL 04/07/2014 OLYA WILLIS MD 530.8 1 GERD 04/07/2014 OLYA WILLIS MD 250.0 0 DIABETES MELLITUS WITHOUT MENTION OF COMPLICATION TYPE II OR UNSPECIFIED TYPE NOT STATED UNCONTROLLED 04/07/2014 OLYA WILLIS MD 333.9 4 RESTLESS LEGS SYNDROME (RLS) 04/07/2014 OLYA WILLIS MD 338.2 9 OTHER CHRONIC PAIN 04/07/2014 OLYA WILLIS MD 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 POLYNEUROPATHY IN DIABETES 04/07/2014 OLYA WILLIS MD 401.1 HYPERTENSION, BENIGN ESSENTIAL 04/07/2014 OLYA WILLIS MD 530.8 1 GERD 04/15/2014 OLYA WILLIS MD Ot 250.60 DIAB W NEURO MANIFEST, TYPE II OR UNSPEC 04/15/2014 OLYA WILLIS MD Ot 272 .4 HYPERLIPIDEMIA NEC/NOS 04/15/2014 OLYA WILLIS MD Ot 285 .1 AC POSTHEMORRHAG ANEMIA 04/15/2014 OLYA WILLIS MD Ot 357 .2 NEUROPATHY IN DIABETES 04/15/2014 OLYA WILLIS MD Ot 401 .9 HYPERTENSION NOS 04/15/2014 OLYA WILLIS MD Ot 438.89 OTH LATE EFFECT-CEREBROVASCULAR DISEASE 04/15/2014 OLYA WILLIS MD Ot 530.81 ESOPHAGEAL REFLUX 04/15/2014 OLYA WILLIS MD Ot 593 .9 RENAL URETERAL DIS NOS 04/15/2014 OLYA WILLIS MD Ot 599 .0 URIN TRACT INFECTION NOS 04/15/2014 OLYA WILLIS MD Ot 728.87 MUSCLE WEAKNESS (GENERALIZED) 04/15/2014 OLYA WILLIS MD Ot 824 .6 FX TRIMALLEOLAR-CLOSED 04/15/2014 OLYA WILLIS MD Ot E000.8 OTHER EXTERNAL CAUSE STATUS 04/15/2014 OLYA WILLIS MD Ot E888.9 FALL NOS 04/15/2014 OLYA WILLIS MD Ot V15.82 HISTORY OF TOBACCO USE 04/15/2014 OLYA WILLIS MD Ot V15.88 HISTORY OF FALL 04/19/2014 KAYLEE OCASIO MD Ot 250.6 0 DIAB W NEURO MANIFEST, TYPE II OR UNSPEC 04/19/2014 NINFA LICEA KAYLEE E Ot 272.4 HYPERLIPIDEMIA NEC/NOS 04/19/2014 KAYLEE OCASIO MD Ot 285.9 ANEMIA NOS 04/19/2014 KAYLEE OCASIO MD E Ot 357.2 NEUROPATHY IN DIABETES 04/19/2014 KAYLEE OCASIO MD E Ot 401.9 HYPERTENSION NOS 04/19/2014 KAYLEE OCASIO MD E Ot 438.2 0 LATE EFF-CEREBR DIS,HEMIPLEGIA AFFECTING 04/19/2014 KAYLEE OCASIO MD E Ot 438.8 9 OTH LATE EFFECT-CEREBROVASCULAR DISEASE 04/19/2014 KAYLEE OCASIO MD E Ot 599.0 URIN TRACT INFECTION NOS 04/19/2014 KAYLEE OCASIO MD E Ot 781.2 ABNORMALITY OF GAIT 04/19/2014 KAYLEE OCASIO MD Ot V15.8 8 HISTORY OF FALL 04/19/2014 KAYLEE OCASIO MD Ot V54.1 9 AFTERCARE HEALING TRAUMATIC FX OTHER BON 04/19/2014 KAYLEE OCASIO MD Ot V57.8 9 REHABILITATION PROC NEC 04/29/2014 ANTHONY MARTIN APRN Ot 250.60 DIAB W NEURO MANIFEST, TYPE II OR UNSPEC 04/29/2014 ANTHONY MARTIN APRN Ot 311 DEPRESSIVE DISORDER NEC 04/29/2014 ANTHONY MARTIN APRN Ot 357 .2 NEUROPATHY IN DIABETES 04/29/2014 ANTHONY MARTIN APRN Ot 401 .9 HYPERTENSION NOS 04/29/2014 ANTHONY MARTIN APRN Ot 493.90 ASTHMA, UNSPECIFIED 04/29/2014 ANTHONY MARTIN APRN Ot 530.81 ESOPHAGEAL REFLUX 04/29/2014 ANTHONY MARTIN APRN Ot 564.09 OTHER CONSTIPATION 04/29/2014 ANTHONY MARTIN APRN Ot 716.90 ARTHROPATHY NOS-UNSPEC 04/29/2014 ANTHONY MARTIN APRN Ot 733.00 OSTEOPOROSIS NOS 04/29/2014 ANTHONY MARTIN APRN Ot 780.57 UNSPECIFIED SLEEP APNEA 04/29/2014 ANTHONY MARTIN APRN Ot 781 .0 ABN INVOLUN MOVEMENT NEC 04/29/2014 ANTHONY MARTIN APRN Ot 782 .3 EDEMA 04/29/2014 ANTHONY MARTIN APRN Ot 998.32 DISRUPTION OF EXTERNAL OPERATION (SURGIC 04/29/2014 ANTHONY MARTIN APRN Ot E879.8 ABN REACT-PROCEDURE NEC 04/29/2014 ANTHONY MARTIN APRN Ot V12.54 PERSONAL HX OF TIA, CEREBRAL INFARCTION 04/29/2014 ANTHONY MARTIN APRN Ot V58.67 LONG-TERM (CURRENT) USE OF INSULIN 04/29/2014 ANTHONY MARTIN APRN Ot V58.69 OTH MED,LT,CURRENT USE 05/09/2014 IFEOMA DONALDSON MD Ot 041. 04 STREPTOCOCCUS INFECTION NOS, GROUP D (EN 05/09/2014 IFEOMA DONALDSON MD Ot 250. 60 DIAB W NEURO MANIFEST, TYPE II OR UNSPEC 05/09/2014 IFEOMA DONALDSON MD Ot 272. 4 HYPERLIPIDEMIA NEC/NOS 05/09/2014 IFEOMA DONALDSON MD Ot 285. 1 AC POSTHEMORRHAG ANEMIA 05/09/2014 IFEOMA DONALDSON MD Ot 327. 23 OBSTRUCTIVE SLEEP APNEA (ADULT) (PEDIATR 05/09/2014 IFEOMA DONALDSON MD Ot 357. 2 NEUROPATHY IN DIABETES 05/09/2014 IFEOMA DONALDSON MD Ot 401. 9 HYPERTENSION NOS 05/09/2014 IFEOMA DONALDSON MD Ot 493. 90 ASTHMA, UNSPECIFIED 05/09/2014 IFEOMA DONALDSON MD Ot 996. 67 INFEC INFLAM REAC DUE OTH INTRN ORTH D 05/09/2014 IFEOMA DONALDSON MD Ot V12. 54 PERSONAL HX OF TIA, CEREBRAL INFARCTION 05/09/2014 IFEOMA DONALDSON MD Ot V15. 82 HISTORY OF TOBACCO USE 05/09/2014 IFEOMA DONALDSON MD, Ot V58. 67 LONG-TERM (CURRENT) USE OF INSULIN 05/14/2014 IFEOMA DONALDSON MD Ot 250. 00 DIAB CHARO WO COMPL, TYPE II OR UNSPEC TY 05/14/2014 IFEOMA DONALDSON MD Ot 996. 67 INFEC INFLAM REAC DUE OTH INTRN ORTH D 05/28/2014 KAYLEE OCASIO MD Ot 250.6 0 DIAB W NEURO MANIFEST, TYPE II OR UNSPEC 05/28/2014 KAYLEE OCASIO MD Ot 285.9 ANEMIA NOS 05/28/2014 KAYLEE OCASIO MD Ot 327.2 3 OBSTRUCTIVE SLEEP APNEA (ADULT) (PEDIATR 05/28/2014 KAYLEE OCASIO MD Ot 357.2 NEUROPATHY IN DIABETES 05/28/2014 KAYLEE OCASIO MD Ot 401.9 HYPERTENSION NOS 05/28/2014 KAYLEE OCASIO MD Ot 438.2 1 LATE EFF-CEREBR DIS,HEMIPLEGIA AFFECTING 05/28/2014 KAYLEE OCASIO MD Ot 564.0 0 UNSPEC CONSTIPATION 05/28/2014 KAYLEE OCASIO MD Ot V54.0 9 OTHER AFTERCARE INVOLVING INTERNAL FIXAT 05/28/2014 KAYLEE OCASIO MD Ot V57.8 9 REHABILITATION PROC NEC 05/28/2014 KAYLEE OCASIO MD Ot V58.6 7 LONG-TERM (CURRENT) USE OF INSULIN 08/14/2014 OLYA WILLIS MD Ot 250.00 DIAB CHARO WO COMPL, TYPE II OR UNSPEC TY 08/14/2014 OLYA WILLIS MD Ot 560.32 FECAL IMPACTION 08/14/2014 OLYA WILLIS MD Ot 564.00 08/14/2014 OLYA WILLIS MD Ot V54.19 AFTERCARE HEALING TRAUMATIC FX OTHER BON 08/14/2014 OLYA WILLIS MD Ot V58.67 LONG-TERM (CURRENT) USE OF INSULIN 09/02/2014 OLYA WILLIS MD Ot 250.00 DIAB CHARO WO COMPL, TYPE II OR UNSPEC TY 09/02/2014 OLYA WILLIS MD Ot 560.32 FECAL IMPACTION 09/02/2014 OLYA WILLIS MD Ot 564.09 OTHER CONSTIPATION 09/02/2014 OLYA WILLIS MD Ot E935.2 ADV EFF OPIATES 09/02/2014 OLYA WILLIS MD Ot V54.19 AFTERCARE HEALING TRAUMATIC FX OTHER BON 10/23/2014 OLYA WILLIS MD 536.3 GASTROPARESIS 10/23/2014 OLYA WILLIS MD 536.3 GASTROPARESIS 11/19/2014 Ot 435.9 11/19/2014 Ot 786.50 11/19/2014 Ot V72.84 11/19/2014 Ot 272.4 11/19/2014 Ot 401.9 11/19/2014 Ot 435.9 11/19/2014 Ot 786.50 11/19/2014 Ot V58.69 11/19/2014 Ot V72.81 11/19/2014 Ot 354.2 11/19/2014 Ot V58.69 11/19/2014 Ot V72.63 11/19/2014 Ot V74.8 11/19/2014 Ot 429.3 11/19/2014 Ot 433.10 11/19/2014 Ot 433.30 11/19/2014 Ot 434.91 11/19/2014 Ot 435.9 11/19/2014 Ot V72.84 11/19/2014 SHEA MAYFIELD Ot 793.89 11/19/2014 SHEA MAYFIELD Ot V76.12 11/19/2014 MARGARITA CORDERO DO Ot 793.89 11/20/2014 RAHEL MUNOZ MD Ot 250.82 DIAB W OTH SPEC MANIFEST, TYPE II OR UNS 11/20/2014 RAHEL MUNOZ MD Ot 440.23 ATHEROSCL [place] ARTER EXTREMITIES W ULC 11/20/2014 RAHEL MUNOZ MD Ot 707.13 ULCER OF ANKLE 11/20/2014 RAHEL MUNOZ MD Ot 707.14 ULCER OF HEEL AND MIDFOOT 11/20/2014 RAHEL MUNOZ MD Ot 998.83 NON-HEALING SURG WOUND 11/20/2014 RAHEL MUNOZ MD Ot V54.19 AFTERCARE HEALING TRAUMATIC FX OTHER BON 12/05/2014 Ot 435.9 12/05/2014 Ot 786.50 12/05/2014 Ot V72.84 12/05/2014 Ot 272.4 12/05/2014 Ot 401.9 12/05/2014 Ot 435.9 12/05/2014 Ot 786.50 12/05/2014 Ot V58.69 12/05/2014 Ot V72.81 12/05/2014 Ot 354.2 12/05/2014 Ot V58.69 12/05/2014 Ot V72.63 12/05/2014 Ot V74.8 12/05/2014 Ot 429.3 12/05/2014 Ot 433.10 12/05/2014 Ot 433.30 12/05/2014 Ot 434.91 12/05/2014 Ot 435.9 12/05/2014 Ot V72.84 12/05/2014 SHEA MAYFIELD Ot 793.89 12/05/2014 SHEA MAYFIELD Ot V76.12 12/05/2014 MARGARITA CORDERO DO Ot 793.89 12/10/2014 Ot 435.9 12/10/2014 Ot 786.50 12/10/2014 Ot V72.84 12/10/2014 Ot 272.4 12/10/2014 Ot 401.9 12/10/2014 Ot 435.9 12/10/2014 Ot 786.50 12/10/2014 Ot V58.69 12/10/2014 Ot V72.81 12/10/2014 Ot 354.2 12/10/2014 Ot V58.69 12/10/2014 Ot V72.63 12/10/2014 Ot V74.8 12/10/2014 Ot 429.3 12/10/2014 Ot 433.10 12/10/2014 Ot 433.30 12/10/2014 Ot 434.91 12/10/2014 Ot 435.9 12/10/2014 Ot V72.84 12/10/2014 SHEA MAYFIELD Ot 793.89 12/10/2014 RACHAELJAMEYSHEA BEACH Ot V76.12 12/10/2014 MARGARITA CORDERO DO Ot 793.89 12/10/2014 ALBA LICEA, OLYA Joaquin Ot 998.59 12/12/2014 TAMMY LICEA, RAHEL Mcdonald Ot 250.82 12/12/2014 TAMMY LICEA, RAHEL Mcdonald Ot 440.23 12/12/2014 TAMMY LICEA, RAHEL Mcdonald Ot 707.13 12/12/2014 TAMMY LICEA, RAHEL Mcdonald Ot 707.14 12/12/2014 TAMMY LICEA, RAHEL Mcdonald Ot 998.83 12/12/2014 TAMMY LICEA, RAHEL Mcdonald Ot V54.19 12/12/2014 TAMMY LICEA, RAHEL Mcdonald Ot 250.82 12/12/2014 TAMMY LICEA, RAHEL Mcdonald Ot 440.23 12/12/2014 TAMMY LICEA, RAHEL Mcdonald Ot 707.13 12/12/2014 TAMMY LICEA, RAHEL Mcdonald Ot 707.14 12/12/2014 TAMMY LICEA, RAHEL Mcdonald Ot 998.83 12/12/2014 TAMMY LICEA, RAHEL Mcdonald Ot V54.19 12/12/2014 ALBA LICEA, OLYA Joaquin Ot 998.59 12/13/2014 ALBA LICEA, OLYA Joaquin Ot 998.59 12/17/2014 Ot 250.82 12/17/2014 Ot 440.23 12/17/2014 Ot 707.13 12/17/2014 Ot 707.14 12/17/2014 Ot 998.83 12/17/2014 Ot V54.19 12/31/2014 Ot 250.00 WAYNE B CHARO WO COMPL, TYPE II OR UNSPEC TY 12/31/2014 Ot 272.0 PURE HYPERCHOLESTEROLEM 12/31/2014 Ot 304.91 RICHELLE G DEPEND NOS- CONTIN 12/31/2014 Ot 401.9 HYPE RTENSION NOS 12/31/2014 Ot 530.81 ESO PHAGEAL REFLUX 12/31/2014 Ot 560.32 FEC AL IMPACTION 12/31/2014 Ot 564.00 UNS PEC CONSTIPATION 12/31/2014 Ot 733.00 OST EOPOROSIS NOS 01/14/2015 OLYA WILLIS MD 276.8 HYPOPOTASSEMIA 01/22/2015 Ot 996.66 01/22/2015 Ot V43.69 01/22/2015 Ot V58.62 01/31/2015 ALBA LICEA, OLYA Joaquin Ot 276 .7 01/31/2015 ALBA LICEA, OLYA Joaquin Ot 276 .7 01/31/2015 ALBA LICEA, OLYA Joaquin Ot 276 .7 02/11/2015 ALBA LICEA, OLYA Joaquin Ot 276 .7 02/27/2015 ALBA LICEA, OLYA Joaquin Ot 998.59 03/04/2015 TAMMY LICEA, RAHEL Mcdonald Ot 250.82 DIAB W OTH SPEC MANIFEST, TYPE II OR UNS 03/04/2015 TAMMY LICEA, RAHEL Mcdonald Ot 440.23 ATHEROSCL [place] ARTER EXTREMITIES W ULC 03/04/2015 RAHEL MUNOZ MD Ot 707.13 ULCER OF ANKLE 03/04/2015 RAHEL MUNOZ MD Ot 707.14 ULCER OF HEEL AND MIDFOOT 03/04/2015 RAHEL MUNOZ MD Ot 998.83 NON-HEALING SURG WOUND 03/04/2015 TAMMY LICEA, RAHEL Mcdonald Ot V54.19 AFTERCARE HEALING TRAUMATIC FX OTHER BON 03/05/2015 LABA LICEA, OLYA Joaquin Ot 998.59 OTH POSTOPER INFECTION 03/15/2015 ALBA LICEA, OLYA Joaquin Ot 276 .7 03/20/2015 ALBA LICEA, OLYA Joaquin Ot 276 .7 04/08/2015 ALBA LICEA, OLYA Joaquin Ot 276 .7 04/08/2015 ALBA LICEA, OLYA Joaquin Ot 276 .7 04/08/2015 ALBA LICEA, OLYA Joaquin Ot 276 .7 04/08/2015 ALBA LICEA, OLYA Joaquin Ot 276 .7 04/12/2015 ALBA LICEA, OLYA Joaquin Ot 250.00 04/12/2015 ALBA LICEA, OLYA Joaquin Ot 276 .7 04/12/2015 ALBA LICEA, OLYA Joaquin Ot 276 .7 04/15/2015 ALBA LICEA, OLYA Joaquin Ot 276 .7 04/20/2015 ALBA LICEA, OLAY Joaquin Ot 276 .7 04/22/2015 ALBA LICEA, OLYA Joaquin Ot 276 .7 06/13/2015 Ot 435.9 06/13/2015 Ot 786.50 06/13/2015 Ot V72.84 06/13/2015 Ot 272.4 06/13/2015 Ot 401.9 06/13/2015 Ot 435.9 06/13/2015 Ot 786.50 06/13/2015 Ot V58.69 06/13/2015 Ot V72.81 06/13/2015 Ot 354.2 06/13/2015 Ot V58.69 06/13/2015 Ot V72.63 06/13/2015 Ot V74.8 06/13/2015 Ot 429.3 06/13/2015 Ot 433.10 06/13/2015 Ot 433.30 06/13/2015 Ot 434.91 06/13/2015 Ot 435.9 06/13/2015 Ot V72.84 06/13/2015 CHAPARRO SHEA Mcgee ASTRONAUTICAL ENGINEER Ot 793.89 06/13/2015 SHEA MAYFIELD Evearrdo ASTRONAUTICAL ENGINEER Ot V76.12 06/13/2015 MARGARITA CORDERO DO Ot 793.89 06/13/2015 Ot 250.82 06/13/2015 Ot 440.23 06/13/2015 Ot 707.13 06/13/2015 Ot 707.14 06/13/2015 Ot 998.83 06/13/2015 Ot V54.19 06/13/2015 Ot 996.66 06/13/2015 Ot V43.69 06/13/2015 Ot V58.62 06/13/2015 Ot 996.66 06/13/2015 Ot V43.69 06/13/2015 Ot V58.62 06/13/2015 Ot V58.62 06/13/2015 Ot V58.83 06/13/2015 Ot 998.83 06/13/2015 Ot 996.66 06/13/2015 Ot V43.69 06/13/2015 Ot V58.62 06/13/2015 ALBA LICEA, OLYA Joaquin Ot 276 .7 06/13/2015 ALBA LICEA, OLYA F Ot 276 .7 06/13/2015 ALBA LICEA, OLYA F Ot 276 .7 06/13/2015 ALBA LICEA, OLYA F Ot 250.00 06/13/2015 ALBA LICEA, OLYA F Ot 276 .7 06/13/2015 ALBA LICEA, OLYA F Ot 276 .7 06/13/2015 ALBA LICEA, OLYA F Ot 276 .7 06/13/2015 ALBA LICEA, OLYA F Ot 276 .7 06/13/2015 ALBA LICEA, OLYA Joaquin Ot 276 .7 06/13/2015 ALBA LICEA, OLYA Joaquin Ot 276 .7 06/13/2015 ALBA LICEA, OLYA Joaquin Ot 998.59 06/13/2015 ALBA LICEA, OLYA Joaquin Ot 276 .7 06/13/2015 ALBA LICEA, OLYA Joaquin Ot 276 .7 06/13/2015 ALBA LICEA, OLYA Joaquin Ot 276 .7 06/13/2015 ALBA LICEA, OLYA Joaquin Ot 276 .7 06/13/2015 ALBA LICEA, OLYA Joaquin Ot 276 .7 09/17/2015 JENN WORTHYM, INA Arvind Ot L98. 8 12/03/2015 Ot E11.621 12/03/2015 Ot L97.412 12/03/2015 Ot E11.621 12/03/2015 Ot L97.412 12/04/2015 Ot 998.83 12/23/2015 KRIS LICEA, LA NENA Garzon Ot M79.6 71 01/03/2016 Ot E11.621 01/03/2016 Ot L97.412 01/06/2016 ESTUARDO RICHARDSON LANDSCAPING CREW LEADER Ot E11.621 01/06/2016 ESTUARDO RICHARDSON LANDSCAPING CREW LEADER Ot L97.412 01/07/2016 Ot 435.9 01/07/2016 Ot 786.50 01/07/2016 Ot V72.84 01/07/2016 Ot 272.4 01/07/2016 Ot 401.9 01/07/2016 Ot 435.9 01/07/2016 Ot 786.50 01/07/2016 Ot V58.69 01/07/2016 Ot V72.81 01/07/2016 Ot 354.2 01/07/2016 Ot V58.69 01/07/2016 Ot V72.63 01/07/2016 Ot V74.8 01/07/2016 Ot 429.3 01/07/2016 Ot 433.10 01/07/2016 Ot 433.30 01/07/2016 Ot 434.91 01/07/2016 Ot 435.9 01/07/2016 Ot V72.84 01/07/2016 SHEA MAYFIELD Ot 793.89 01/07/2016 SHEA MAYFIELD Ot V76.12 01/07/2016 MARGARITA CORDERO DO Ot 793.89 01/07/2016 Ot 250.82 01/07/2016 Ot 440.23 01/07/2016 Ot 707.13 01/07/2016 Ot 707.14 01/07/2016 Ot 998.83 01/07/2016 Ot V54.19 01/07/2016 Ot 996.66 01/07/2016 Ot V43.69 01/07/2016 Ot V58.62 01/07/2016 Ot 996.66 01/07/2016 Ot V43.69 01/07/2016 Ot V58.62 01/07/2016 Ot V58.62 01/07/2016 Ot V58.83 01/07/2016 Ot 998.83 01/07/2016 Ot 996.66 01/07/2016 Ot V43.69 01/07/2016 Ot V58.62 01/07/2016 ALBA LICEA, OLYA F Ot 276 .7 01/07/2016 ALBA LICEA, OLYA F Ot 276 .7 01/07/2016 ALBA LICEA, OLYA F Ot 276 .7 01/07/2016 ALBA LICEA, OLYA F Ot 250.00 01/07/2016 ALBA LICEA, OLYA F Ot 276 .7 01/07/2016 ALBA LICEA, OLYA F Ot 276 .7 01/07/2016 ALBA LICEA, OLYA F Ot 276 .7 01/07/2016 ALBA LICEA, OLYA F Ot 276 .7 01/07/2016 ALBA LICEA, OLYA F Ot 276 .7 01/07/2016 ALBA LICEA, OLYA F Ot 276 .7 01/07/2016 ALBA LICEA, OLYA F Ot 998.59 01/07/2016 ALBA LICEA, OLYA F Ot 276 .7 01/07/2016 ALBA LICEA, OLYA F Ot 276 .7 01/07/2016 ALBA LICEA, OLYA F Ot 276 .7 01/07/2016 ALBA LICEA, OLYA F Ot 276 .7 01/07/2016 ALBA LICEA, OLYA F Ot 276 .7 01/07/2016 JENN WORTHYM, INA Samuels Ot L98. 8 01/07/2016 KRIS LICEA, LA NENA Garzon Ot M79.6 71 01/07/2016 ESTUARDO RICHARDSON APRN Ot E11.621 01/07/2016 ESTUARDO RICHARDSON APRN Ot L97.412 01/07/2016 Ot E11.621 01/07/2016 Ot L97.412 01/07/2016 NEW, IRENE Gandara SEGMENT BLOCK LAYER-C Ot D64.9 01/07/2016 NEW, IRENE Gandara SEGMENT BLOCK LAYER-C Ot D72.8 29 01/07/2016 NEW, IRENE Gandara SEGMENT BLOCK LAYER-C Ot E11.2 9 01/07/2016 NEW, IRENE G. SEGMENT BLOCK LAYER-C Ot E78.5 01/07/2016 NEW, IRENE G. SEGMENT BLOCK LAYER-C Ot E87.5 01/07/2016 NEW, IRENE Mcdonald. SEGMENT BLOCK LAYER-C Ot I13.1 0 01/07/2016 NEW, IRENE Harry. SEGMENT BLOCK LAYER-C Ot K31.8 4 01/07/2016 NEW, IRENE G. SEGMENT BLOCK LAYER-C Ot N18.4 01/07/2016 NEW, IRENE Gandara SEGMENT BLOCK LAYER-C Ot R80.9 01/20/2016 NEW, IRENE Gandara SEGMENT BLOCK LAYER-C Ot D64.9 01/20/2016 NEW, IRENE G. SEGMENT BLOCK LAYER-C Ot D72.8 29 01/20/2016 NEW, IRENE Mcdonald. SEGMENT BLOCK LAYER-C Ot E11.2 9 01/20/2016 NEW, IRENE G. SEGMENT BLOCK LAYER-C Ot E78.5 01/20/2016 NEW, IRENE Harry. SEGMENT BLOCK LAYER-C Ot E87.5 01/20/2016 NEW, IRENE Harry. SEGMENT BLOCK LAYER-C Ot I13.1 0 01/20/2016 NEW, IRENE G. SEGMENT BLOCK LAYER-C Ot K31.8 4 01/20/2016 NEW, IRENE G. 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 02/27/2016 ESTUARDO RICHARDSON APRN Ot E11.621 TYPE 2 DIABETES MELLITUS WITH FOOT ULCER 02/27/2016 ESTUARDO RICHARDSON LANDSCAPING CREW LEADER Ot L97.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 02/28/2016 ESTUARDO RICHARDSON LANDSCAPING CREW LEADER Ot E11.621 TYPE 2 DIABETES MELLITUS WITH FOOT ULCER 02/28/2016 ESTUARDO RICHARDSON LANDSCAPING CREW LEADER Ot L97.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 03/03/2016 KRIS LICEA, LA NENA Garzon Ot 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, W S 03/06/2016 KRIS LICEA, LA NENA Garzon Ot E87.5 HYPERKALEMIA 03/06/2016 LA NENA PONCE MD Ot 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, W S 03/06/2016 LA NENA PONCE MD Ot N18.4 CHRONIC KIDNEY DISEASE, STAGE 4 (SEVERE) 03/11/2016 LA NENA PONCE MD Ot E87.5 HYPERKALEMIA 03/11/2016 LA NENA PONCE MD Ot 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, W S 03/11/2016 LA NENA PONCE MD Ot N18.4 CHRONIC KIDNEY DISEASE, STAGE 4 (SEVERE) 03/31/2016 OLYA WILLIS MD Ot 998.59 OTH POSTOPER INFECTION 04/09/2016 ESTUARDO RICHARDSON APRN Ot E11.621 TYPE 2 DIABETES MELLITUS WITH FOOT ULCER 04/09/2016 ESTUARDO RICHARDSON APRN Ot L97.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 04/24/2016 OLYA WILLIS MD Ot 998.59 OTH POSTOPER INFECTION 04/24/2016 ESTUARDO RICHARDSON LANDSCAPING CREW LEADER Ot E11.621 TYPE 2 DIABETES MELLITUS WITH FOOT ULCER 04/24/2016 ESTUARDO RICHARDSON LANDSCAPING CREW LEADER Ot L97.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 04/24/2016 SHIRA KIRKLAND DOA K Ot E11.59 TYPE 2 DIABETES MELLITUS WITH OTH CIRCUL 04/24/2016 IRENE KIRKLAND DO Ot G62.9 POLYNEUROPATHY, UNSPECIFIED 04/24/2016 IRENE KIRKLAND DO K Ot I12.9 HYPERTENSIVE CHRONIC KIDNEY DISEASE W ST 04/24/2016 IRENE KIRKLAND DO K Ot N18.9 CHRONIC KIDNEY DISEASE, UNSPECIFIED 04/24/2016 IRENE KIRKLAND DO Ot S82.191 A OTH FRACTURE OF UPPER END OF RIGHT TIBIA 04/24/2016 IRENE KIRKLAND DO Ot S82.831 A OTH FRACTURE OF UPPER AND LOWER END OF R 04/24/2016 IRENE KIRKLAND DO Ot S91.301 A UNSPECIFIED OPEN WOUND, RIGHT FOOT, INIT 04/24/2016 IRENE KIRKLAND DO Ot W01.0XX A FALL SAME LEV FROM SLIP/TRIP W/O STRIKE 04/24/2016 IRENE KIRKLAND DO Ot Y92.[address] [facility] (PRIVATE 04/24/2016 IRENE KIRKLAND DO Ot Y99.8 OTHER EXTERNAL CAUSE STATUS 04/24/2016 IRENE KIRKLAND DO Ot Z79.4 RESEARCH AND DEVELOPMENT RESEARCHER (CURRENT) USE OF INSULIN 04/24/2016 IRENE KIRLKAND DO Ot Z87.891 PERSONAL HISTORY OF NICOTINE DEPENDENCE 04/24/2016 IRENE KIRKLAND DO, Ot Z98.1 ARTHRODESIS STATUS 04/24/2016 ESTUARDO RICHARDSON LANDSCAPING CREW LEADER Ot E11.621 TYPE 2 DIABETES MELLITUS WITH FOOT ULCER 04/24/2016 ESTUARDO RICHARDSON APRN Ot L97.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 04/29/2016 IRENE KIRKLAND DO Ot E11.59 TYPE 2 DIABETES MELLITUS WITH OTH CIRCUL 04/29/2016 IRENE KIRKLAND DO Ot G62.9 POLYNEUROPATHY, UNSPECIFIED 04/29/2016 IRENE KIRKLAND DO Ot I12.9 HYPERTENSIVE CHRONIC KIDNEY DISEASE W ST 04/29/2016 IRENE KIRKLAND DO Ot N18.9 CHRONIC KIDNEY DISEASE, UNSPECIFIED 04/29/2016 IRENE KIRKLAND DO Ot S82.191 A OTH FRACTURE OF UPPER END OF RIGHT TIBIA 04/29/2016 IRENE KIRKLAND DO Ot S82.831 A OTH FRACTURE OF UPPER AND LOWER END OF R 04/29/2016 IRENE KIRKLAND DO Ot S91.301 A UNSPECIFIED OPEN WOUND, RIGHT FOOT, INIT 04/29/2016 IRENE KIRKLAND DO Ot W01.0XX A FALL SAME LEV FROM SLIP/TRIP W/O STRIKE 04/29/2016 IRENE KIRKLAND DO Ot Y92.009 [facility] NON-INSTITUT (PRIVATE 04/29/2016 IRENE KIRKLAND DO Ot Y99.8 OTHER EXTERNAL CAUSE STATUS 04/29/2016 IRENE KIRKLAND DO Ot Z79.4 RESEARCH AND DEVELOPMENT RESEARCHER (CURRENT) USE OF INSULIN 04/29/2016 IRENE KIRKLAND DO Ot Z87.891 PERSONAL HISTORY OF NICOTINE DEPENDENCE 04/29/2016 IRENE KIRKLAND DO Ot Z98.1 ARTHRODESIS STATUS 05/02/2016 Ot 435.9 TYLER S CEREB ISCHEMIA NOS 05/02/[address] PAIN NOS 05/02/2016 Ot V72.84 EXA M PRE- OPERATIVE NOS 05/02/2016 Ot 272.4 HYPE RLIPIDEMIA NEC/NOS 05/02/2016 Ot 401.9 HYPE RTENSION NOS 05/02/2016 Ot 435.9 TYLER S CEREB ISCHEMIA NOS 05/02/[address] PAIN NOS 05/02/2016 Ot V58.69 OTH MED,LT,CURRENT USE 05/02/2016 Ot V72.81 [id number] CARDIOVASCULAR 05/02/2016 Ot 354.2 ULNA R NERVE LESION 05/02/2016 Ot V58.69 OTH MED,LT,CURRENT USE 05/02/2016 Ot V72.63 PRE -PROCEDURAL LABORATORY EXAMINATION 05/02/2016 Ot V74.8 SCRE EN-BACTERIAL DIS NEC 05/02/2016 Ot 429.3 CARD IOMEGALY 05/02/2016 Ot 433.10 CAR OTID ARTERY OCCLUSION W O CEREBRAL IN 05/02/2016 Ot 433.30 MUL T BILTRAL ARTERY OCCLUSION WO CEREBRA 05/02/2016 Ot 434.91 CER EBRAL ART OCCLUSION NOS W CEREBRAL IN 05/02/2016 Ot 435.9 TYLER S CEREB ISCHEMIA NOS 05/02/2016 Ot V72.84 EXA M PRE- OPERATIVE NOS 05/02/2016 SHEA MAYFIELD Ot 793.89 OTH (ABN) FINDINGS ON RADIOLOGICAL EXAMI 05/02/2016 SHEA MAYFIELD Ot V76.12 OTH SCREEN MAMMO-MALIGN NEOPLASM OF [place]ING 05/02/2016 MARGARITA CORDERO DO S Ot 793.89 OTH (ABN) FINDINGS ON RADIOLOGICAL EXAMI 05/02/2016 Ot 250.82 WAYNE B W OT SPEC MANIFEST, TYPE II OR UNS 05/02/2016 Ot 440.23 ATH EROSCL [place] [facility] [place] ARTER EXTREMITIES W ULC 05/02/2016 Ot 707.13 U[facility] ER OF ANKLE 05/02/2016 Ot 707.14 ULC ER OF HEEL AND MIDFOOT 05/02/2016 Ot 998.83 NON -HEALING SURG WOUND 05/02/2016 Ot V54.19 AFT ERCARE HEALING TRAUMATIC FX OTHER BON 05/02/2016 Ot 996.66 INF EC INFLAM REACT DUE TO INTERNL JOIN 05/02/2016 Ot V43.69 [facility] ER JOINT REPLACEMENT STATUS 05/02/2016 Ot V58.62 ENC OUNT FOR LONG- TERM(CURRENT) USE OF AN 05/02/2016 Ot 996.66 INF EC INFLAM REACT DUE TO INTERNL JOIN 05/02/2016 Ot V43.69 [facility] ER JOINT REPLACEMENT STATUS 05/02/2016 Ot V58.62 ENC OUNT FOR LONG- TERM(CURRENT) USE OF AN 05/02/2016 Ot V58.62 ENC OUNT FOR LONG- TERM(CURRENT) USE OF AN 05/02/2016 Ot V58.83 ENC OUNTER FOR THERAPEUTIC DRUG MONITORIN 05/02/2016 Ot 998.83 NON -HEALING SURG WOUND 05/02/2016 Ot 996.66 INF EC INFLAM REACT DUE TO INTERNL JOIN 05/02/2016 Ot V43.69 [facility] ER JOINT REPLACEMENT STATUS 05/02/2016 Ot V58.62 ENC OUNT FOR LONG- TERM(CURRENT) USE OF AN 05/02/2016 ALBA LICEA, OLYA Joaquin Ot 276 .7 HYPERPOTASSEMIA 05/02/2016 ALBA LICEA, OLYA Joaquin Ot 276 .7 HYPERPOTASSEMIA 05/02/2016 ALBA LICEA, OLYA Joaquin Ot 276 .7 HYPERPOTASSEMIA 05/02/2016 ALBA LICEA, OLYA Joaquin Ot 250.00 DIAB CHARO WO COMPL, TYPE II OR UNSPEC TY 05/02/2016 ALBA LICEA, OLYA Joaquin Ot 276 .7 HYPERPOTASSEMIA 05/02/2016 ALBA LICEA, OLYA Joaquin Ot 276 .7 HYPERPOTASSEMIA 05/02/2016 ALBA LICEA, OLYA Joaquin Ot 276 .7 HYPERPOTASSEMIA 05/02/2016 ALBA LICEA, OLYA Joaquin Ot 276 .7 HYPERPOTASSEMIA 05/02/2016 ALBA LICEA, OLYA Joaquin Ot 276 .7 HYPERPOTASSEMIA 05/02/2016 ALBA LICEA, OLYA Joaquin Ot 276 .7 HYPERPOTASSEMIA 05/02/2016 ALBA LICEA, OLYA Joaquin Ot 998.59 OTH POSTOPER INFECTION 05/02/2016 ALBA LICEA, OLYA Joaquin Ot 276 .7 HYPERPOTASSEMIA 05/02/2016 ALBA LICEA, OLYA Joaquin Ot 276 .7 HYPERPOTASSEMIA 05/02/2016 ALBA LICEA, OLYA Joaquin Ot 276 .7 HYPERPOTASSEMIA 05/02/2016 ALBA LICEA, OLYA Joaquin Ot 276 .7 HYPERPOTASSEMIA 05/02/2016 ALBA LICEA, OLYA Joaquin Ot 276 .7 HYPERPOTASSEMIA 05/02/2016 JENN DPM, INA Q Ot L98. 8 OTH DISRD OF THE SKIN AND SUBCUTANEOUS T 05/02/2016 KRIS LICEA, LA NENA Garzon Ot M79.6 71 PAIN IN RIGHT FOOT 05/02/2016 Ot E11.621 TY PE 2 DIABETES MELLITUS WITH FOOT ULCER 05/02/2016 Ot L97.412 NO N-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 05/02/2016 IRENE BRUCE SEGMENT BLOCK LAYER-C Ot D64.9 ANEMIA, UNSPECIFIED 05/02/2016 IRENE BRUCE SEGMENT BLOCK LAYER-C Ot D72.8 29 ELEVATED WHITE BLOOD CELL COUNT, UNSPECI 05/02/2016 IRENE BRUCE SEGMENT BLOCK LAYER-C Ot E11.2 9 TYPE 2 DIABETES MELLITUS W OTH DIABETIC 05/02/2016 IRENE BRUCE SEGMENT BLOCK LAYER-C Ot E78.5 HYPERLIPIDEMIA, UNSPECIFIED 05/02/2016 IRENE BRUCE SEGMENT BLOCK LAYER-C Ot E87.5 HYPERKALEMIA 05/02/2016 IRENE BRUCE NP-C Ot 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, W S 05/02/2016 IRENE BRUCE SEGMENT BLOCK LAYER-C Ot K31.8 4 GASTROPARESIS 05/02/2016 IRENE BRUCE SEGMENT BLOCK LAYER-C Ot N18.4 CHRONIC KIDNEY DISEASE, STAGE 4 (SEVERE) 05/02/2016 IRENE BRUCE SEGMENT BLOCK LAYER-C Ot R80.9 PROTEINURIA, UNSPECIFIED 05/02/2016 ALBA LICEA, OLYA Joaquin Ot I12 .9 HYPERTENSIVE CHRONIC KIDNEY DISEASE W ST 05/02/2016 ALBA LICEA, OLYA Joaquin Ot N18 .3 CHRONIC KIDNEY DISEASE, STAGE 3 (MODERAT 05/02/2016 KRIS LICEA, LA NENA Garzon Ot E87.5 HYPERKALEMIA 05/02/2016 KRIS LICEA, LA NENA Garzon Ot 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, W S 05/02/2016 KRIS LICEA, LA NENA Garzon Ot N18.4 CHRONIC KIDNEY DISEASE, STAGE 4 (SEVERE) 05/02/2016 ESTUARDO RICHARDSON LANDSCAPING CREW LEADER Ot E11.621 TYPE 2 DIABETES MELLITUS WITH FOOT ULCER 05/02/2016 ESTUARDO RICHARDSON LANDSCAPING CREW LEADER Ot L97.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 05/13/2016 IRENE KIRKLAND DO Ot E11.59 TYPE 2 DIABETES MELLITUS WITH OTH CIRCUL 05/13/2016 IRENE KIRKLAND DO Ot G62.9 POLYNEUROPATHY, UNSPECIFIED 05/13/2016 IRENE KIRKLAND DO Ot I12.9 HYPERTENSIVE CHRONIC KIDNEY DISEASE W ST 05/13/2016 IRENE KIRKLAND DO Ot N18.9 CHRONIC KIDNEY DISEASE, UNSPECIFIED 05/13/2016 IRENE KIRKLAND DO Ot S82.191 A OTH FRACTURE OF UPPER END OF RIGHT TIBIA 05/13/2016 IRENE KIRKLAND DO Ot S82.831 A OTH FRACTURE OF UPPER AND LOWER END OF R 05/13/2016 IRENE KIRKLAND DO Ot S91.301 A UNSPECIFIED OPEN WOUND, RIGHT FOOT, INIT 05/13/2016 IRENE KIRKLAND DO Ot W01.0XX A FALL SAME LEV FROM SLIP/TRIP W/O STRIKE 05/13/2016 IRENE KIRKLAND DO Ot Y92.[address] [facility] [address] IN [facility] NON-INSTITUT (PRIVATE 05/13/2016 IRENE KIRKLAND DO Ot Y99.8 OTHER EXTERNAL CAUSE STATUS 05/13/2016 IRENE KRIKLAND DO Ot Z79.4 HALFWAY (CURRENT) USE OF INSULIN 05/13/2016 IRENE KIRKLAND DO Ot Z87.891 PERSONAL HISTORY OF NICOTINE DEPENDENCE 05/13/2016 IRENE KIRKLAND DO Ot Z98.1 ARTHRODESIS STATUS 06/09/2016 CUCO LICEA, PRESTON S Ot D64.9 ANEMIA, UNSPECIFIED 06/09/2016 CUCO LICEA, PRESTON S Ot D72.829 ELEVATED WHITE BLOOD CELL COUNT, UNSPECI 06/09/2016 CUCO LICEA, PRESTON S Ot E11.22 TYPE 2 DIABETES MELLITUS W DIABETIC MECHANIC AND WELDER 06/09/2016 CUCO LICEA, PRESTON Granados Ot E11.42 TYPE 2 DIABETES MELLITUS WITH DIABETIC P 06/09/2016 CUCO LICEA, PRESTON S Ot E55.9 VITAMIN D DEFICIENCY, UNSPECIFIED 06/09/2016 CUCO LICEA, PRESTON S Ot E78.5 HYPERLIPIDEMIA, UNSPECIFIED 06/09/2016 CUCO LICEA, PRESTON S Ot E87.5 HYPERKALEMIA 06/09/2016 CUCO LICEA, PRESTON S Ot 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, W S 06/09/2016 CUCO LICEA, PRESTON S Ot K31.84 GASTROPARESIS 06/09/2016 CUCO LICEA, PRESTON S Ot N18.4 CHRONIC KIDNEY DISEASE, STAGE 4 (SEVERE) 06/09/2016 CUCO LICEA, PRESTON S Ot R80.9 PROTEINURIA, UNSPECIFIED 06/15/2016 ALBA LICEA, OLYA Joaquin Ot D64 .9 ANEMIA, UNSPECIFIED 06/15/2016 OLYA WILLIS MD Ot N18 .9 CHRONIC KIDNEY DISEASE, UNSPECIFIED 06/22/2016 CUCO LICEA, PRESTON S Ot D64.9 ANEMIA, UNSPECIFIED 06/22/2016 CUCO LICEA, PRESTON S Ot D72.829 ELEVATED WHITE BLOOD CELL COUNT, UNSPECI 06/22/2016 CUCO LICEA, PRESTON S Ot E11.22 TYPE 2 DIABETES MELLITUS W DIABETIC MECHANIC AND WELDER 06/22/2016 CUCO LICEA, PRESTON S Ot E11.42 TYPE 2 DIABETES MELLITUS WITH DIABETIC P 06/22/2016 CUCO LICEA, PRESTON S Ot E55.9 VITAMIN D DEFICIENCY, UNSPECIFIED 06/22/2016 CUCO LICEA, PRESTON S Ot E78.5 HYPERLIPIDEMIA, UNSPECIFIED 06/22/2016 CUCO LICEA, AHMED S Ot E87.5 HYPERKALEMIA 06/22/2016 CUCO LICEA, PRESTON Granados Ot 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, W S 06/22/2016 CUCO LICEA, PRESTON Granados Ot K31.84 GASTROPARESIS 06/22/2016 CUCO LICEA, PRESTON Granados Ot N18.4 CHRONIC KIDNEY DISEASE, STAGE 4 (SEVERE) 06/22/2016 CUCO LICEA, PRESTON Granados Ot R80.9 PROTEINURIA, UNSPECIFIED 06/26/2016 IRENE KIRKLAND DO Ot E11.59 TYPE 2 DIABETES MELLITUS WITH OTH CIRCUL 06/26/2016 IRENE KIRKLAND DO Ot G62.9 POLYNEUROPATHY, UNSPECIFIED 06/26/2016 IRENE KIRKLAND DO Ot I12.9 HYPERTENSIVE CHRONIC KIDNEY DISEASE W ST 06/26/2016 IRENE KIRKLAND DO Ot N18.9 CHRONIC KIDNEY DISEASE, UNSPECIFIED 06/26/2016 IRENE KIRKLAND DO Ot S82.191 A OTH FRACTURE OF UPPER END OF RIGHT TIBIA 06/26/2016 IRENE KIRKLAND DO Ot S82.831 A OTH FRACTURE OF UPPER AND LOWER END OF R 06/26/2016 IRENE KIRKLAND DO Ot S91.301 A UNSPECIFIED OPEN WOUND, RIGHT FOOT, INIT 06/26/2016 IRENE KIRKLAND DO Ot W01.0XX A FALL SAME LEV FROM SLIP/TRIP W/O STRIKE 06/26/2016 IRENE KIRKLAND DO Ot Y92.[address] [facility] [address] IN [facility] NON-INSTITUT (PRIVATE 06/26/2016 IRENE KIRKLAND DO Ot Y99.8 OTHER EXTERNAL CAUSE STATUS 06/26/2016 IRENE KIRKLAND DO Ot Z79.4 RESEARCH AND DEVELOPMENT RESEARCHER (CURRENT) USE OF INSULIN 06/26/2016 IRENE KIRKLAND DO Ot Z87.891 PERSONAL HISTORY OF NICOTINE DEPENDENCE 06/26/2016 IRENE KIRKLAND DO Ot Z98.1 ARTHRODESIS STATUS 07/15/2016 IRENE BRUCE NP-James Ot D63.1 ANEMIA IN CHRONIC KIDNEY DISEASE 07/15/2016 IRENE BRUCE Ot N18.4 CHRONIC KIDNEY DISEASE, STAGE 4 (SEVERE) 07/17/2016 NEWIRENE. SEGMENT BLOCK LAYER-C Ot D63.1 ANEMIA IN CHRONIC KIDNEY DISEASE 07/17/2016 NEWIRENE. SEGMENT BLOCK LAYER-C Ot N18.4 CHRONIC KIDNEY DISEASE, STAGE 4 (SEVERE) 07/21/2016 NEWSHIRAA G. SEGMENT BLOCK LAYER-C Ot D63.1 ANEMIA IN CHRONIC KIDNEY DISEASE 07/21/2016 NEWIRENE. SEGMENT BLOCK LAYER-C Ot N18.4 CHRONIC KIDNEY DISEASE, STAGE 4 (SEVERE) 07/27/2016 NEW, IRENE Harry. SEGMENT BLOCK LAYER-C Ot D63.1 ANEMIA IN CHRONIC KIDNEY DISEASE 07/27/2016 NEW, IRENE Mcdonald. SEGMENT BLOCK LAYER-C Ot N18.4 CHRONIC KIDNEY DISEASE, STAGE 4 (SEVERE) 08/10/2016 NEW IRENE G. SEGMENT BLOCK LAYER-C Ot D63.1 ANEMIA IN CHRONIC KIDNEY DISEASE 08/10/2016 NEWIRENE. SEGMENT BLOCK LAYER-C Ot N18.4 CHRONIC KIDNEY DISEASE, STAGE 4 (SEVERE) 08/13/2016 NEWIRENE. SEGMENT BLOCK LAYER-C Ot D63.1 ANEMIA IN CHRONIC KIDNEY DISEASE 08/13/2016 NEWIRENE. SEGMENT BLOCK LAYER-C Ot N18.4 CHRONIC KIDNEY DISEASE, STAGE 4 (SEVERE) 08/18/2016 CUCO LICEA, AHMED S Ot E87.5 HYPERKALEMIA 08/18/2016 CUCO LICEA, AHMED S Ot I12.9 HYPERTENSIVE CHRONIC KIDNEY DISEASE W ST 08/18/2016 CUCO LICEA, AHMED S Ot N18.4 CHRONIC KIDNEY DISEASE, STAGE 4 (SEVERE) 08/23/2016 CUCO LICEA, AHMED S Ot E87.5 HYPERKALEMIA 08/23/2016 CUCO LICEA, AHMED S Ot I12.9 HYPERTENSIVE CHRONIC KIDNEY DISEASE W ST 08/23/2016 CUCO LICEA, AHMED S Ot N18.4 CHRONIC KIDNEY DISEASE, STAGE 4 (SEVERE) 08/31/2016 CUCO LICEA, AHMED S Ot E87.5 HYPERKALEMIA 08/31/2016 CUCO LICEA, AHMED S Ot I12.9 HYPERTENSIVE CHRONIC KIDNEY DISEASE W ST 08/31/2016 CUCO LICEA, AHMED S Ot N18.4 CHRONIC KIDNEY DISEASE, STAGE 4 (SEVERE) 09/03/2016 ESTUARDO RICHARDSON LANDSCAPING CREW LEADER Ot E11.621 TYPE 2 DIABETES MELLITUS WITH FOOT ULCER 09/03/2016 ESTUARDO RICHARDSON LANDSCAPING CREW LEADER Ot L97.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 09/08/2016 ESTUARDO RICHARDSON LANDSCAPING CREW LEADER Ot E11.621 TYPE 2 DIABETES MELLITUS WITH FOOT ULCER 09/08/2016 ESTUARDO RICHARDSON LANDSCAPING CREW LEADER Ot L97.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 09/09/2016 IRENE BRCUE SEGMENT BLOCK LAYER-C Ot D63.1 ANEMIA IN CHRONIC KIDNEY DISEASE 09/09/2016 IRENE BRUCE SEGMENT BLOCK LAYER-C Ot N18.4 CHRONIC KIDNEY DISEASE, STAGE 4 (SEVERE) 09/15/2016 ESTUARDO RICHARDSON LANDSCAPING CREW LEADER Ot E11.621 TYPE 2 DIABETES MELLITUS WITH FOOT ULCER 09/15/2016 ESTUARDO RICHARDSON LANDSCAPING CREW LEADER Ot L97.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 09/29/2016 CUCO LICEA, MARIBELMED S Ot N18.4 CHRONIC KIDNEY DISEASE, STAGE 4 (SEVERE) 09/30/2016 CUCO LICEA, AHMED S Ot N18.4 CHRONIC KIDNEY DISEASE, STAGE 4 (SEVERE) 10/04/2016 CUCO LICEA, AHMED S Ot N18.4 CHRONIC KIDNEY DISEASE, STAGE 4 (SEVERE) 10/08/2016 IRENE BRUCE SEGMENT BLOCK LAYER-C Ot D63.1 ANEMIA IN CHRONIC KIDNEY DISEASE 10/08/2016 IRENE BRUCE. SEGMENT BLOCK LAYER-C Ot N18.4 CHRONIC KIDNEY DISEASE, STAGE 4 (SEVERE) 10/08/2016 TEO IRENE G. SEGMENT BLOCK LAYER-C Ot D63.1 ANEMIA IN CHRONIC KIDNEY DISEASE 10/08/2016 NEW IRENE G. SEGMENT BLOCK LAYER-C Ot N18.4 CHRONIC KIDNEY DISEASE, STAGE 4 (SEVERE) 10/09/2016 TEO IRENE G. SEGMENT BLOCK LAYER-C Ot D63.1 ANEMIA IN CHRONIC KIDNEY DISEASE 10/09/2016 TEO IRENE G. SEGMENT BLOCK LAYER-C Ot N18.4 CHRONIC KIDNEY DISEASE, STAGE 4 (SEVERE) 10/09/2016 TEO IRENE G. SEGMENT BLOCK LAYER-C Ot D63.1 ANEMIA IN CHRONIC KIDNEY DISEASE 10/09/2016 SHIRA BRUCEA G. SEGMENT BLOCK LAYER-C Ot N18.4 CHRONIC KIDNEY DISEASE, STAGE 4 (SEVERE) 10/13/2016 CUCO LICEA, PRESTON S Ot N18.4 CHRONIC KIDNEY DISEASE, STAGE 4 (SEVERE) 10/14/2016 IRENE BRUCE SEGMENT BLOCK LAYER-C Ot D63.1 ANEMIA IN CHRONIC KIDNEY DISEASE 10/14/2016 IRENE BRUCE SEGMENT BLOCK LAYER-C Ot N18.4 CHRONIC KIDNEY DISEASE, STAGE 4 (SEVERE) 10/14/2016 Ot 435.9 TYLER S CEREB ISCHEMIA NOS 10/14/[address] PAIN NOS 10/14/2016 Ot V72.84 EXA M PRE- OPERATIVE NOS 10/14/2016 Ot 272.4 HYPE RLIPIDEMIA NEC/NOS 10/14/2016 Ot 401.9 HYPE RTENSION NOS 10/14/2016 Ot 435.9 TYLER S CEREB ISCHEMIA NOS 10/14/[address] PAIN NOS 10/14/2016 Ot V58.69 OTH MED,LT,CURRENT USE 10/14/2016 Ot V72.81 [id number] CARDIOVASCULAR 10/14/2016 Ot 354.2 ULNA R NERVE LESION 10/14/2016 Ot V58.69 OTH MED,LT,CURRENT USE 10/14/2016 Ot V72.63 PRE -PROCEDURAL LABORATORY EXAMINATION 10/14/2016 Ot V74.8 SCRE EN-BACTERIAL DIS NEC 10/14/2016 Ot 429.3 CARD IOMEGALY 10/14/2016 Ot 433.10 CAR OTID ARTERY OCCLUSION W O CEREBRAL IN 10/14/2016 Ot 433.30 MUL T BILTRAL ARTERY OCCLUSION WO CEREBRA 10/14/2016 Ot 434.91 CER EBRAL ART OCCLUSION NOS W CEREBRAL IN 10/14/2016 Ot 435.9 TYLER S CEREB ISCHEMIA NOS 10/14/2016 Ot V72.84 EXA M PRE- OPERATIVE NOS 10/14/2016 SHEA MAYFIELD ASTRONAUTICAL ENGINEER Ot 793.89 OTH (ABN) FINDINGS ON RADIOLOGICAL EXAMI 10/14/2016 SHEA MAYFIELD ASTRONAUTICAL ENGINEER Ot V76.12 OTH SCREEN MAMMO-MALIGN NEOPLASM OF [place]ING 10/14/2016 MARGARITA CORDERO DO S Ot 793.89 OTH (ABN) FINDINGS ON RADIOLOGICAL EXAMI 10/14/2016 Ot 250.82 WAYNE B W OTH SPEC MANIFEST, TYPE II OR UNS 10/14/2016 Ot 440.23 ATH EROSCL [place] ARTER EXTREMITIES W ULC 10/14/2016 Ot 707.13 ULC ER OF ANKLE 10/14/2016 Ot 707.14 ULC ER OF HEEL AND MIDFOOT 10/14/2016 Ot 998.83 NON -HEALING SURG WOUND 10/14/2016 Ot V54.19 AFT ERCARE HEALING TRAUMATIC FX OTHER BON 10/14/2016 Ot 996.66 INF EC INFLAM REACT DUE TO INTERNL JOIN 10/14/2016 Ot V43.69 OT ER JOINT REPLACEMENT STATUS 10/14/2016 Ot V58.62 ENC OUNT FOR LONG- TERM(CURRENT) USE OF AN 10/14/2016 Ot 996.66 INF EC INFLAM REACT DUE TO INTERNL JOIN 10/14/2016 Ot V43.69 [facility] ER JOINT REPLACEMENT STATUS 10/14/2016 Ot V58.62 ENC OUNT FOR LONG- TERM(CURRENT) USE OF AN 10/14/2016 Ot V58.62 ENC OUNT FOR LONG- TERM(CURRENT) USE OF AN 10/14/2016 Ot V58.83 ENC OUNTER FOR THERAPEUTIC DRUG MONITORIN 10/14/2016 Ot 998.83 NON -HEALING SURG WOUND 10/14/2016 Ot 996.66 INF EC INFLAM REACT DUE TO INTERNL JOIN 10/14/2016 Ot V43.69 [facility] ER JOINT REPLACEMENT STATUS 10/14/2016 Ot V58.62 ENC OUNT FOR LONG- TERM(CURRENT) USE OF AN 10/14/2016 ALBA LICEA, OLYA Joaquin Ot 276 .7 HYPERPOTASSEMIA 10/14/2016 ALBA LICEA, OLYA Joaquin Ot 276 .7 HYPERPOTASSEMIA 10/14/2016 ALBA LICEA, OLYA Joaquin Ot 276 .7 HYPERPOTASSEMIA 10/14/2016 ALBA LICEA, OLYA Joaquin Ot 250.00 DIAB CHARO WO COMPL, TYPE II OR UNSPEC TY 10/14/2016 ALBA LICEA, OLYA Joaquin Ot 276 .7 HYPERPOTASSEMIA 10/14/2016 ALBA LICEA, OLYA Joaquin Ot 276 .7 HYPERPOTASSEMIA 10/14/2016 ALBA LICEA, OLYA Joaquin Ot 276 .7 HYPERPOTASSEMIA 10/14/2016 ALBA LICEA, OLYA Joaquin Ot 276 .7 HYPERPOTASSEMIA 10/14/2016 ALBA LICEA, OLYA Joaquin Ot 276 .7 HYPERPOTASSEMIA 10/14/2016 ALBA LICEA, OLYA Joaquin Ot 276 .7 HYPERPOTASSEMIA 10/14/2016 ALBA LICEA, OLYA Joaquin Ot 998.59 OTH POSTOPER INFECTION 10/14/2016 ALBA LICEA, OLYA Joaquin Ot 276 .7 HYPERPOTASSEMIA 10/14/2016 ALBA LICEA, OLYA Joaquin Ot 276 .7 HYPERPOTASSEMIA 10/14/2016 ALBA LICEA, OLYA Joaquin Ot 276 .7 HYPERPOTASSEMIA 10/14/2016 ALBA LICEA, OLYA Joaquin Ot 276 .7 HYPERPOTASSEMIA 10/14/2016 ALBA LICEA, OLYA Joaquin Ot 276 .7 HYPERPOTASSEMIA 10/14/2016 JENN DPM, INA Q Ot L98. 8 OTH DISRD OF THE SKIN AND SUBCUTANEOUS T 10/14/2016 KRIS LICEA, LA NENA Garzon Ot M79.6 71 PAIN IN RIGHT FOOT 10/14/2016 Ot E11.621 TY PE 2 DIABETES MELLITUS WITH FOOT ULCER 10/14/2016 Ot L97.412 NO N-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 10/14/2016 IRENE BRUCE SEGMENT BLOCK LAYER-C Ot D64.9 ANEMIA, UNSPECIFIED 10/14/2016 IRENE BRUCE SEGMENT BLOCK LAYER-C Ot D72.8 29 ELEVATED WHITE BLOOD CELL COUNT, UNSPECI 10/14/2016 IRENE BRUCE SEGMENT BLOCK LAYER-C Ot E11.2 9 TYPE 2 DIABETES MELLITUS W OTH DIABETIC 10/14/2016 IRENE BRUCE SEGMENT BLOCK LAYER-C Ot E78.5 HYPERLIPIDEMIA, UNSPECIFIED 10/14/2016 IRENE BRUCE SEGMENT BLOCK LAYER-C Ot E87.5 HYPERKALEMIA 10/14/2016 IRENE BRUCE NP-C Ot 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, W S 10/14/2016 IRENE BRUCE SEGMENT BLOCK LAYER-C Ot K31.8 4 GASTROPARESIS 10/14/2016 IRENE BRUCE SEGMENT BLOCK LAYER-C Ot N18.4 CHRONIC KIDNEY DISEASE, STAGE 4 (SEVERE) 10/14/2016 IRENE BRUCE SEGMENT BLOCK LAYER-C Ot R80.9 PROTEINURIA, UNSPECIFIED 10/14/2016 ALBA LICEA, OLYA Joaquin Ot I12 .9 HYPERTENSIVE CHRONIC KIDNEY DISEASE W ST 10/14/2016 OLYA WILLIS MD Ot N18 .3 CHRONIC KIDNEY DISEASE, STAGE 3 (MODERAT 10/14/2016 KRIS LICEA, [place] NENA Garzon Ot E87.5 HYPERKALEMIA 10/14/2016 KRIS LICEA, [place] NENA Garzon Ot 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, W S 10/14/2016 KRIS LICEA, [place] NENA Garzon Ot N18.4 CHRONIC KIDNEY DISEASE, STAGE 4 (SEVERE) 10/14/2016 ALBA LICEA, OLYA Joaquni Ot D64 .9 ANEMIA, UNSPECIFIED 10/14/2016 ALBA LICEA, OLYA Joaquin Ot N18 .9 CHRONIC KIDNEY DISEASE, UNSPECIFIED 10/14/2016 CUCO LICEA, PRESTON S Ot D64.9 ANEMIA, UNSPECIFIED 10/14/2016 CUCO LICEA, PRESTON S Ot D72.829 ELEVATED WHITE BLOOD CELL COUNT, UNSPECI 10/14/2016 CUCO LICEA, PRESTON S Ot E11.22 TYPE 2 DIABETES MELLITUS W DIABETIC MECHANIC AND WELDER 10/14/2016 CUCO LICEA, PRESTON S Ot E11.42 TYPE 2 DIABETES MELLITUS WITH DIABETIC P 10/14/2016 CUCO LICEA, MARIBELMED S Ot E55.9 VITAMIN D DEFICIENCY, UNSPECIFIED 10/14/2016 CUCO LICEA, PRESTON S Ot E78.5 HYPERLIPIDEMIA, UNSPECIFIED 10/14/2016 CUCO LICEA, PRESTON S Ot E87.5 HYPERKALEMIA 10/14/2016 CUCO LICEA, PRESTON S Ot 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, W S 10/14/2016 CUCO LICEA, MARIBELMED S Ot K31.84 GASTROPARESIS 10/14/2016 CUCO LICEA, MARIBELMED S Ot N18.4 CHRONIC KIDNEY DISEASE, STAGE 4 (SEVERE) 10/14/2016 CUCO LICEA, PRESTON S Ot R80.9 PROTEINURIA, UNSPECIFIED 10/14/2016 ESTUARDO RICHARDSON APRN Ot E11.621 TYPE 2 DIABETES MELLITUS WITH FOOT ULCER 10/14/2016 ESTUARDO RICHARDSON APRN Ot L97.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 10/14/2016 CUCO LICEA, PRESTON S Ot E87.5 HYPERKALEMIA 10/14/2016 PRESTON NORWOOD MD Ot I12.9 HYPERTENSIVE CHRONIC KIDNEY DISEASE W ST 10/14/2016 PRESTON NORWOOD MD Ot N18.4 CHRONIC KIDNEY DISEASE, STAGE 4 (SEVERE) 10/14/2016 ESTUARDO RICHARDSON [employer] LEADER Ot E11.621 TYPE 2 DIABETES MELLITUS WITH FOOT ULCER 10/14/2016 ESTUARDO RICHARDSON [employer] LEADER Ot L97.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 10/14/2016 PRESTON NORWOOD MD Ot N18.4 CHRONIC KIDNEY DISEASE, STAGE 4 (SEVERE) 10/14/2016 IRENE BRUCE NP-C Ot D63.1 ANEMIA IN CHRONIC KIDNEY DISEASE 10/14/2016 IRENE BRUCE NP-C Ot N18.4 CHRONIC KIDNEY DISEASE, STAGE 4 (SEVERE) 10/14/2016 ESTUARDO RICHARDSON [employer] LEADER Ot E11.621 TYPE 2 DIABETES MELLITUS WITH FOOT ULCER 10/14/2016 ESTUARDO RICHARDSON [employer] LEADER Ot L97.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 10/14/2016 ESTUARDO RICHARDSON [employer] LEADER Ot E11.621 TYPE 2 DIABETES MELLITUS WITH FOOT ULCER 10/14/2016 ESTUARDO RICHARDSON [employer] LEADER Ot L97.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 10/14/2016 PRESTON NORWOOD MD Ot E87.5 HYPERKALEMIA 10/14/2016 PRESTON NORWOOD MD Ot I12.9 HYPERTENSIVE CHRONIC KIDNEY DISEASE W ST 10/14/2016 PRESTON NORWOOD MD Ot N18.4 CHRONIC KIDNEY DISEASE, STAGE 4 (SEVERE) 10/14/2016 PRESTON NORWOOD MD S Ot D64.9 ANEMIA, UNSPECIFIED 10/14/2016 PRESTON NORWOOD MD S Ot D72.829 ELEVATED WHITE BLOOD CELL COUNT, UNSPECI 10/14/2016 PRESTON NORWOOD MD S Ot E11.22 TYPE 2 DIABETES MELLITUS W DIABETIC MECHANIC AND WELDER 10/14/2016 PRESTON NORWOOD MD Ot E11.42 TYPE 2 DIABETES MELLITUS WITH DIABETIC P 10/14/2016 PRESTON NORWOOD MD S Ot E55.9 VITAMIN D DEFICIENCY, UNSPECIFIED 10/14/2016 CUCO LICEA, PRESTON S Ot E78.5 HYPERLIPIDEMIA, UNSPECIFIED 10/14/2016 CUCO LICEA, PRESTON S Ot E87.5 HYPERKALEMIA 10/14/2016 CUCO LICEA, MARIBELVALAIRE S Ot 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, W S 10/14/2016 CUCO LICEA, MARIBELVALARIE S Ot K31.84 GASTROPARESIS 10/14/2016 CUCO LICEA, PRESTON S Ot N18.4 CHRONIC KIDNEY DISEASE, STAGE 4 (SEVERE) 10/14/2016 CUCO LICEA, MARIBELVALARIE S Ot R80.9 PROTEINURIA, UNSPECIFIED 10/14/2016 Ot E11.621 TY PE 2 DIABETES MELLITUS WITH FOOT ULCER 10/14/2016 Ot L97.412 NO N-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 10/14/2016 IRENE BRUCE SEGMENT BLOCK LAYER-C Ot D64.9 ANEMIA, UNSPECIFIED 10/14/2016 IRENE BRUCE SEGMENT BLOCK LAYER-C Ot D72.8 29 ELEVATED WHITE BLOOD CELL COUNT, UNSPECI 10/14/2016 IRENE BRUCE SEGMENT BLOCK LAYER-C Ot E11.2 9 TYPE 2 DIABETES MELLITUS W OTH DIABETIC 10/14/2016 IRENE BRUCE SEGMENT BLOCK LAYER-C Ot E78.5 HYPERLIPIDEMIA, UNSPECIFIED 10/14/2016 IRENE BRUCE SEGMENT BLOCK LAYER-C Ot E87.5 HYPERKALEMIA 10/14/2016 IRENE BRUCE SEGMENT BLOCK LAYER-C Ot 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, W S 10/14/2016 IRENE BRUCE NP-C Ot K31.8 4 GASTROPARESIS 10/14/2016 IRENE BRUCE SEGMENT BLOCK LAYER-C Ot N18.4 CHRONIC KIDNEY DISEASE, STAGE 4 (SEVERE) 10/14/2016 IRENE BRUCE SEGMENT BLOCK LAYER-C Ot R80.9 PROTEINURIA, UNSPECIFIED 10/14/2016 KRIS LICEA, LA NENA Garzon Ot E87.5 HYPERKALEMIA 10/14/2016 KRIS LICEA, LA NENA Garzon Ot 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, W S 10/14/2016 KRIS LICEA, [place] NENA Garzon Ot N18.4 CHRONIC KIDNEY DISEASE, STAGE 4 (SEVERE) 10/14/2016 JENN DPM, INA Q Ot L98. 8 OTH DISRD OF THE SKIN AND SUBCUTANEOUS T 10/14/2016 Ot 429.3 CARD IOMEGALY 10/14/2016 Ot 433.10 CAR OTID ARTERY OCCLUSION W O CEREBRAL IN 10/14/2016 Ot 433.30 MUL T BILTRAL ARTERY OCCLUSION WO CEREBRA 10/14/2016 Ot 434.91 CER EBRAL ART OCCLUSION NOS W CEREBRAL IN 10/14/2016 Ot 435.9 TYLER S CEREB ISCHEMIA NOS 10/15/2016 ESTUARDO RICHARDSON LANDSCAPING CREW LEADER Ot E11.621 TYPE 2 DIABETES MELLITUS WITH FOOT ULCER 10/15/2016 ESTUARDO RICHARDSON LANDSCAPING CREW LEADER Ot L97.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 10/15/2016 ESTUARDO RICHARDSON LANDSCAPING CREW LEADER Ot E11.621 TYPE 2 DIABETES MELLITUS WITH FOOT ULCER 10/15/2016 ESTUARDO RICHARDSON LANDSCAPING CREW LEADER Ot L97.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 10/27/2016 ESTUARDO RICHARDSON LANDSCAPING CREW LEADER Ot E11.621 TYPE 2 DIABETES MELLITUS WITH FOOT ULCER 10/27/2016 ESTUARDO RICHARDSON LANDSCAPING CREW LEADER Ot L97.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 11/05/2016 ESTUARDO RICHARDSON LANDSCAPING CREW LEADER Ot E11.621 TYPE 2 DIABETES MELLITUS WITH FOOT ULCER 11/05/2016 ESTUARDO RICHARDSON LANDSCAPING CREW LEADER Ot L97.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 11/05/2016 ESTUARDO RICHARDSON LANDSCAPING CREW LEADER Ot E11.621 TYPE 2 DIABETES MELLITUS WITH FOOT ULCER 11/05/2016 ESTUARDO RICHARDSON LANDSCAPING CREW LEADER Ot L97.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 11/05/2016 ESTUARDO RICHARDSON LANDSCAPING CREW LEADER Ot E11.621 TYPE 2 DIABETES MELLITUS WITH FOOT ULCER 11/05/2016 ESTUARDO RICHARDSON LANDSCAPING CREW LEADER Ot L97.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 11/05/2016 CUCO LICEA, PRESTON S Ot E87.5 HYPERKALEMIA 11/05/2016 CUCO LICEA, PRESTON S Ot I12.9 HYPERTENSIVE CHRONIC KIDNEY DISEASE W ST 11/05/2016 CUCO LICEA, PRESTON S Ot N18.4 CHRONIC KIDNEY DISEASE, STAGE 4 (SEVERE) 11/05/2016 CUCO LICEA, PRESTON S Ot D64.9 ANEMIA, UNSPECIFIED 11/05/2016 CUCO LICEA, AHMED S Ot D72.829 ELEVATED WHITE BLOOD CELL COUNT, UNSPECI 11/05/2016 CUCO LICEA, MARIBELMED S Ot E11.22 TYPE 2 DIABETES MELLITUS W DIABETIC MECHANIC AND WELDER 11/05/2016 CUCO LICEA, PRESTON Granados Ot E11.42 TYPE 2 DIABETES MELLITUS WITH DIABETIC P 11/05/2016 CUCO LICEA, MARIBELMED S Ot E55.9 VITAMIN D DEFICIENCY, UNSPECIFIED 11/05/2016 CUCO LICEA, MARIBELMED S Ot E78.5 HYPERLIPIDEMIA, UNSPECIFIED 11/05/2016 CUCO LICEA, MARIBELMED S Ot E87.5 HYPERKALEMIA 11/05/2016 CUCO LICEA, MARIBELMED S Ot 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, W S 11/05/2016 CUCO LICEA, MARIBELMED S Ot K31.84 GASTROPARESIS 11/05/2016 CCUO LICEA, MARIBELMED S Ot N18.4 CHRONIC KIDNEY DISEASE, STAGE 4 (SEVERE) 11/05/2016 CUCO LICEA, PRESTON S Ot R80.9 PROTEINURIA, UNSPECIFIED 11/05/2016 KRIS LICEA, LA NENA Garzon Ot E87.5 HYPERKALEMIA 11/05/2016 KRIS LICEA, LA NENA Garzon Ot 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, W S 11/05/2016 KRIS LICEA, LA NENA Garzon Ot N18.4 CHRONIC KIDNEY DISEASE, STAGE 4 (SEVERE) 11/05/2016 IRENE BRUEC NP-C Ot D64.9 ANEMIA, UNSPECIFIED 11/05/2016 IRENE BRUCE NP-C Ot D72.8 29 ELEVATED WHITE BLOOD CELL COUNT, UNSPECI 11/05/2016 IRENE BRUCE NP-C Ot E11.2 9 TYPE 2 DIABETES MELLITUS W OTH DIABETIC 11/05/2016 IRENE BRUCE NP-C Ot E78.5 HYPERLIPIDEMIA, UNSPECIFIED 11/05/2016 IRENE BRUCE SEGMENT BLOCK LAYER-C Ot E87.5 HYPERKALEMIA 11/05/2016 IRENE BRUCE SEGMENT BLOCK LAYER-C Ot 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, W S 11/05/2016 IRENE BRUCE TRAN Ot K31.8 4 GASTROPARESIS 11/05/2016 IRENE BRUCE TRAN Ot N18.4 CHRONIC KIDNEY DISEASE, STAGE 4 (SEVERE) 11/05/2016 IRENE BRUCE TRAN Ot R80.9 PROTEINURIA, UNSPECIFIED 11/05/2016 Ot E11.621 TY PE 2 DIABETES MELLITUS WITH FOOT ULCER 11/05/2016 Ot L97.412 NO N-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 11/05/2016 JENN DPM, INA Q Ot L98. 8 OTH DISRD OF THE SKIN AND SUBCUTANEOUS T 11/05/2016 Ot 429.3 CARD IOMEGALY 11/05/2016 Ot 433.10 CAR OTID ARTERY OCCLUSION W O CEREBRAL IN 11/05/2016 Ot 433.30 MUL T BILTRAL ARTERY OCCLUSION WO CEREBRA 11/05/2016 Ot 434.91 CER EBRAL ART OCCLUSION NOS W CEREBRAL IN 11/05/2016 Ot 435.9 TYLER S CEREB ISCHEMIA NOS 11/09/2016 URMILA SUTHERLAND MD Ot E78. 5 HYPERLIPIDEMIA, UNSPECIFIED 11/09/2016 URMILA SUTHERLAND MD Ot I11. 0 HYPERTENSIVE HEART DISEASE WITH HEART FA 11/09/2016 URMILA SUTHERLAND MD Ot I51. 7 CARDIOMEGALY 11/09/2016 URMILA SUTHERLAND MD Ot R07. 9 CHEST PAIN, UNSPECIFIED 11/09/2016 URMILA SUTHERLAND MD Ot E78. 5 HYPERLIPIDEMIA, UNSPECIFIED 11/09/2016 URMILA SUTHERLAND MD Ot I11. 0 HYPERTENSIVE HEART DISEASE WITH HEART FA 11/09/2016 URMILA SUTHERLAND MD Ot I51. 7 CARDIOMEGALY 11/09/2016 URMILA SUTHERLAND MD Ot R07. 9 CHEST PAIN, UNSPECIFIED 11/09/2016 URMILA SUTHERLAND MD Ot E78. 5 HYPERLIPIDEMIA, UNSPECIFIED 11/09/2016 URMILA SUTHERLAND MD Ot I11. 0 HYPERTENSIVE HEART DISEASE WITH HEART FA 11/09/2016 URMILA SUTHERLAND MD Ot I51. 7 CARDIOMEGALY 11/09/2016 URMILA SUTHERLAND MD Ot R07. 9 CHEST PAIN, UNSPECIFIED 11/09/2016 URMILA SUTHERLAND MD Ot E78. 5 HYPERLIPIDEMIA, UNSPECIFIED 11/09/2016 URMILA SUTHERLAND MD Ot I11. 0 HYPERTENSIVE HEART DISEASE WITH HEART FA 11/09/2016 URMILA SUTHERLAND MD Ot I51. 7 CARDIOMEGALY 11/09/2016 URMILA SUTHERLAND MD Ot R07. 9 CHEST PAIN, UNSPECIFIED 11/10/2016 URMILA SUTHERLAND MD Ot E78. 5 HYPERLIPIDEMIA, UNSPECIFIED 11/10/2016 URMILA SUTHERLAND MD Ot I11. 0 HYPERTENSIVE HEART DISEASE WITH HEART FA 11/10/2016 URMILA SUTHERLAND MD Ot I51. 7 CARDIOMEGALY 11/10/2016 URMILA SUTHERLAND MD Ot R07. 9 CHEST PAIN, UNSPECIFIED 11/11/2016 ESTUARDO RICHARDSON LANDSCAPING CREW LEADER Ot E11.621 TYPE 2 DIABETES MELLITUS WITH FOOT ULCER 11/11/2016 ESTUARDO RICHARDSON LANDSCAPING CREW LEADER Ot L97.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 11/15/2016 URMILA SUTHERLAND MD Ot D64. 9 ANEMIA, UNSPECIFIED 11/15/2016 URMILA SUTHERLAND MD Ot E11. 9 TYPE 2 DIABETES MELLITUS WITHOUT COMPLIC 11/15/2016 URMILA SUTHERLAND MD Ot E78. 5 HYPERLIPIDEMIA, UNSPECIFIED 11/15/2016 URMILA SUTHERLAND MD Ot G56. 93 UNSPECIFIED MONONEUROPATHY OF BILATERAL 11/15/2016 URMILA SUTHERLAND MD Ot G57. 93 UNSPECIFIED MONONEUROPATHY OF BILATERAL 11/15/2016 URMILA SUTHERLAND MD Ot I12. 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 9 GASTRO-ESOPHAGEAL REFLUX DISEASE WITHOUT 11/15/2016 URMILA SUTHERLAND MD Ot M81. 0 AGE-RELATED OSTEOPOROSIS W/O CURRENT PAT 11/15/2016 URMILA SUTHERLAND MD, Ot N17. 9 ACUTE KIDNEY FAILURE, UNSPECIFIED 11/15/2016 URMILA SUTHERLAND MD, Ot N18. 9 CHRONIC KIDNEY DISEASE, UNSPECIFIED 11/15/2016 URMILA SUTHERLAND MD Ot R00. 2 PALPITATIONS 11/15/2016 URMILA SUTHERLAND MD Ot Z79. 4 RESEARCH AND DEVELOPMENT RESEARCHER (CURRENT) USE OF INSULIN 11/15/2016 URMILA SUTHERLAND MD Ot Z79.899 OTHER HALFWAY (CURRENT) DRUG THERAPY 11/16/2016 ESTUARDO RICHARDSON LANDSCAPING CREW LEADER Ot E11.621 TYPE 2 DIABETES MELLITUS WITH FOOT ULCER 11/16/2016 ESTUARDO RICHARDSON LANDSCAPING CREW LEADER Ot L97.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 11/17/2016 ESTUARDO RICHARDSON LANDSCAPING CREW LEADER Ot E11.621 TYPE 2 DIABETES MELLITUS WITH FOOT ULCER 11/17/2016 ESTUARDO RICHARDSON LANDSCAPING CREW LEADER Ot L97.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 11/18/2016 ESTUARDO RICHARDSON LANDSCAPING CREW LEADER Ot E11.621 TYPE 2 DIABETES MELLITUS WITH FOOT ULCER 11/18/2016 ESTUARDO RICHARDSON LANDSCAPING CREW LEADER Ot L97.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 11/18/2016 URMILA SUTHERLAND MD Ot I13. 0 HYP HRT CHR [place] DIS W HRT FAIL AND ST 11/18/2016 URMILA SUTHERLAND MD Ot N18. 9 CHRONIC KIDNEY DISEASE, UNSPECIFIED 11/20/2016 URMILA SUTHERLAND MD Ot E78. 5 HYPERLIPIDEMIA, UNSPECIFIED 11/20/2016 URMILA SUTHERLAND MD Ot I11. 0 HYPERTENSIVE HEART DISEASE WITH HEART FA 11/20/2016 URMILA SUTHERLAND MD Ot I51. 7 CARDIOMEGALY 11/20/2016 URMILA SUTHERLAND MD Ot R07. 9 CHEST PAIN, UNSPECIFIED 11/26/2016 URMILA SUTHERLAND MD Ot D64. 9 ANEMIA, UNSPECIFIED 11/26/2016 URMILA SUTHERLAND MD Ot E11. 9 TYPE 2 DIABETES MELLITUS WITHOUT COMPLIC 11/26/2016 URMILA SUTHERLAND MD Ot E78. 5 HYPERLIPIDEMIA, UNSPECIFIED 11/26/2016 URMILA SUTHERLAND MD Ot G56. 93 UNSPECIFIED MONONEUROPATHY OF BILATERAL 11/26/2016 URMILA SUTHERLAND MD Ot G57. 93 UNSPECIFIED MONONEUROPATHY OF BILATERAL 11/26/2016 URMILA SUTHERLAND MD Ot I12. 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 23 OCCLUSION AND STENOSIS OF BILATERAL [place] 11/26/2016 URMILA SUTHERLAND MD Ot I70.293 OTH ATHSCL [place] ARTERIES OF [facility] 11/26/2016 URMILA SUTHERLAND MD Ot K21. 9 GASTRO-ESOPHAGEAL REFLUX DISEASE WITHOUT 11/26/2016 URMILA SUTHERLAND MD Ot M81. 0 AGE-RELATED OSTEOPOROSIS W/O CURRENT PAT 11/26/2016 URMILA SUTHERLAND MD Ot N17. 9 ACUTE KIDNEY FAILURE, UNSPECIFIED 11/26/2016 URMILA SUTHERLAND MD Ot N18. 9 CHRONIC KIDNEY DISEASE, UNSPECIFIED 11/26/2016 URMILA SUTHERLAND MD Ot R00. 2 PALPITATIONS 11/26/2016 URMILA SUTHERLAND MD Ot Z79. 4 RESEARCH AND DEVELOPMENT RESEARCHER (CURRENT) USE OF INSULIN 11/26/2016 URMILA SUTHERLAND MD Ot D64. 9 ANEMIA, UNSPECIFIED 11/26/2016 URMILA SUTHERLAND MD Ot E11. 9 TYPE 2 DIABETES MELLITUS WITHOUT COMPLIC 11/26/2016 URMILA SUTHERLAND MD Ot E78. 5 HYPERLIPIDEMIA, UNSPECIFIED 11/26/2016 URMILA SUTHERLAND MD Ot G56. 93 UNSPECIFIED MONONEUROPATHY OF BILATERAL 11/26/2016 URMILA SUTHERLAND MD Ot G57. 93 UNSPECIFIED MONONEUROPATHY OF BILATERAL 11/26/2016 URMILA SUTHERLAND MD Ot I12. 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 9 GASTRO-ESOPHAGEAL REFLUX DISEASE WITHOUT 11/26/2016 URMILA SUTHERLAND MD Ot M81. 0 AGE-RELATED OSTEOPOROSIS W/O CURRENT PAT 11/26/2016 URMILA SUTHERLAND MD, Ot N17. 9 ACUTE KIDNEY FAILURE, UNSPECIFIED 11/26/2016 URMILA SUTHERLAND MD, Ot N18. 9 CHRONIC KIDNEY DISEASE, UNSPECIFIED 11/26/2016 URMILA SUTHERLAND MD Ot R00. 2 PALPITATIONS 11/26/2016 URMILA SUTHERLAND MD, Ot Z79. 4 RESEARCH AND DEVELOPMENT RESEARCHER (CURRENT) USE OF INSULIN 11/27/2016 URMILA SUTHERLAND MD Ot I13. 0 HYP HRT CHR [place] DIS W HRT FAIL AND ST 11/27/2016 URMILA SUTHERLAND MD, Ot N18. 9 CHRONIC KIDNEY DISEASE, UNSPECIFIED 12/01/2016 URMILA SUTHERLAND MD, Ot D64. 9 ANEMIA, UNSPECIFIED 12/01/2016 URMILA SUTHERLAND MD Ot E11. 9 TYPE 2 DIABETES MELLITUS WITHOUT COMPLIC 12/01/2016 URMILA SUTHERLAND MD Ot E78. 5 HYPERLIPIDEMIA, UNSPECIFIED 12/01/2016 URMILA SUTHERLAND MD Ot G56. 93 UNSPECIFIED MONONEUROPATHY OF BILATERAL 12/01/2016 URMILA SUTHERLAND MD Ot G57. 93 UNSPECIFIED MONONEUROPATHY OF BILATERAL 12/01/2016 URMILA SUTHERLAND MD Ot I12. 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 9 GASTRO-ESOPHAGEAL REFLUX DISEASE WITHOUT 12/01/2016 URMILA SUTHERLAND MD, Ot M81. 0 AGE-RELATED OSTEOPOROSIS W/O CURRENT PAT 12/01/2016 URMILA SUTHERLAND MD Ot N17. 9 ACUTE KIDNEY FAILURE, UNSPECIFIED 12/01/2016 URMILA SUTHERLAND MD Ot N18. 9 CHRONIC KIDNEY DISEASE, UNSPECIFIED 12/01/2016 URMILA SUTHERLAND MD Ot R00. 2 PALPITATIONS 12/01/2016 URMILA SUTHERLAND MD Ot Z79. 4 HALFWAY (CURRENT) USE OF INSULIN 12/01/2016 URMILA SUTHERLAND MD Ot Z79.899 OTHER RESEARCH AND DEVELOPMENT RESEARCHER (CURRENT) DRUG THERAPY 12/12/2016 CUCO LICEA, PRESTON Granados Ot N18.4 CHRONIC KIDNEY DISEASE, STAGE 4 (SEVERE) 12/22/2016 PRESTON NORWOOD MD, Ot N18.4 CHRONIC KIDNEY DISEASE, STAGE 4 (SEVERE) 12/29/2016 ALBA LICEA, OLYA Joaquin Ot 998.59 OTH POSTOPER INFECTION 12/29/2016 IRENE BRUCE NP-C Ot D63.1 ANEMIA IN CHRONIC KIDNEY DISEASE 12/29/2016 IRENE BRUCE NP-C Ot N18.4 CHRONIC KIDNEY DISEASE, STAGE 4 (SEVERE) 12/29/2016 ESTUARDO RICHARDSON LANDSCAPING CREW LEADER Ot E11.621 TYPE 2 DIABETES MELLITUS WITH FOOT ULCER 12/29/2016 ESTUARDO RICHARDSON LANDSCAPING CREW LEADER Ot L97.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 01/05/2017 PRESTON NORWOOD MD Ot 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, W S 01/05/2017 PRESTON NORWOOD MD Ot I50.9 HEART FAILURE, UNSPECIFIED 01/05/2017 PRESTON NORWOOD MD Ot N18.4 CHRONIC KIDNEY DISEASE, STAGE 4 (SEVERE) 01/10/2017 PRESTON NORWOOD MD S Ot 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, W S 01/10/2017 PRESTON NORWOOD MD Ot I50.9 HEART FAILURE, UNSPECIFIED 01/10/2017 PRESTON NORWOOD MD Ot N18.4 CHRONIC KIDNEY DISEASE, STAGE 4 (SEVERE) 01/12/2017 IRENE BRUCE NP-C Ot D64.9 ANEMIA, UNSPECIFIED 01/12/2017 IRENE BRUCE NP-C Ot N18.4 CHRONIC KIDNEY DISEASE, STAGE 4 (SEVERE) 01/12/2017 IRENE BRUCE NP-C Ot D64.9 ANEMIA, UNSPECIFIED 01/12/2017 IRENE BRUCE SEGMENT BLOCK LAYER-C Ot N18.4 CHRONIC KIDNEY DISEASE, STAGE 4 (SEVERE) 01/18/2017 ESTUARDO RICHARDSON LANDSCAPING CREW LEADER Ot E11.621 TYPE 2 DIABETES MELLITUS WITH FOOT ULCER 01/18/2017 ESTUARDO RICHARDSON LANDSCAPING CREW LEADER Ot L97.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 01/18/2017 CUCO LICEA, PRESTON S Ot 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, W S 01/18/2017 CUCO LICEA, PRESTON S Ot I50.9 HEART FAILURE, UNSPECIFIED 01/18/2017 CUCO LICEA, PRESTON S Ot N18.4 CHRONIC KIDNEY DISEASE, STAGE 4 (SEVERE) 01/26/2017 IRENE BRUCE NP-C Ot D64.9 ANEMIA, UNSPECIFIED 01/26/2017 IRENE BRUCE NP-C Ot N18.4 CHRONIC KIDNEY DISEASE, STAGE 4 (SEVERE) 01/29/2017 PRESTON NORWOOD MD S Ot N18.4 CHRONIC KIDNEY DISEASE, STAGE 4 (SEVERE) 02/09/2017 IRENE BRUCE SEGMENT BLOCK LAYER-C Ot D64.9 ANEMIA, UNSPECIFIED 02/09/2017 IRENE BRUCE SEGMENT BLOCK LAYER-C Ot N18.4 CHRONIC KIDNEY DISEASE, STAGE 4 (SEVERE) 02/15/2017 ESTUARDO RICHARDSON LANDSCAPING CREW LEADER Ot E11.621 TYPE 2 DIABETES MELLITUS WITH FOOT ULCER 02/15/2017 ESTUARDO RICHARDSON LANDSCAPING CREW LEADER Ot L97.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 02/16/2017 ESTUARDO RICHARDSON LANDSCAPING CREW LEADER Ot E11.621 TYPE 2 DIABETES MELLITUS WITH FOOT ULCER 02/16/2017 ESTUARDO RICHARDSON LANDSCAPING CREW LEADER Ot L97.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 02/17/2017 ESTUARDO RICHARDSON LANDSCAPING CREW LEADER Ot E11.621 TYPE 2 DIABETES MELLITUS WITH FOOT ULCER 02/17/2017 ESTUARDO RICHARDSON LANDSCAPING CREW LEADER Ot L97.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 02/17/2017 CUCO LICEA, PRESTON S Ot N18.4 CHRONIC KIDNEY DISEASE, STAGE 4 (SEVERE) 02/17/2017 CUCO LICEA, AHMED S Ot N18.4 CHRONIC KIDNEY DISEASE, STAGE 4 (SEVERE) 02/19/2017 ESTUARDO RICHARDSON LANDSCAPING CREW LEADER Ot E11.621 TYPE 2 DIABETES MELLITUS WITH FOOT ULCER 02/19/2017 ESTUARDO RICHARDSON LANDSCAPING CREW LEADER Ot L97.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 02/22/2017 CUCO LICEA, PRESTON S Ot N18.4 CHRONIC KIDNEY DISEASE, STAGE 4 (SEVERE) 02/23/2017 CUCO LICEA, PRESTON S Ot N18.4 CHRONIC KIDNEY DISEASE, STAGE 4 (SEVERE) 02/24/2017 CUCO LICEA, PRESTON S Ot 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, W S 02/24/2017 CUCO LICEA, PRESTON S Ot N18.4 CHRONIC KIDNEY DISEASE, STAGE 4 (SEVERE) 03/09/2017 NEWIRENE SEGMENT BLOCK LAYER-C Ot D64.9 ANEMIA, UNSPECIFIED 03/09/2017 NEWIRENE SEGMENT BLOCK LAYER-C Ot N18.4 CHRONIC KIDNEY DISEASE, STAGE 4 (SEVERE) 03/23/2017 NEW IRENE G. SEGMENT BLOCK LAYER-C Ot D64.9 ANEMIA, UNSPECIFIED 03/23/2017 NEW, IRENE Gandara SEGMENT BLOCK LAYER-C Ot N18.4 CHRONIC KIDNEY DISEASE, STAGE 4 (SEVERE) 03/29/2017 IRENE BRUCE SEGMENT BLOCK LAYER-C Ot D63.1 ANEMIA IN CHRONIC KIDNEY DISEASE 03/29/2017 NEW, IRENE G. SEGMENT BLOCK LAYER-C Ot D64.9 ANEMIA, UNSPECIFIED 03/29/2017 NEW IRENE GLino SEGMENT BLOCK LAYER-C Ot N18.4 CHRONIC KIDNEY DISEASE, STAGE 4 (SEVERE) 04/06/2017 NEW IRENE G. SEGMENT BLOCK LAYER-C Ot D64.9 ANEMIA, UNSPECIFIED 04/06/2017 NEWIRENE SEGMENT BLOCK LAYER-C Ot N18.4 CHRONIC KIDNEY DISEASE, STAGE 4 (SEVERE) 04/06/2017 CUCO LICEA, PRESTON S Ot N18.4 CHRONIC KIDNEY DISEASE, STAGE 4 (SEVERE) 04/06/2017 NEWIRENE SEGMENT BLOCK LAYER-C Ot D64.9 ANEMIA, UNSPECIFIED 04/06/2017 NEWIRENE SEGMENT BLOCK LAYER-C Ot N18.4 CHRONIC KIDNEY DISEASE, STAGE 4 (SEVERE) 04/07/2017 IRENE BRUCE SEGMENT BLOCK LAYER-C Ot D64.9 ANEMIA, UNSPECIFIED 04/07/2017 NEWIRENE SEGMENT BLOCK LAYER-C Ot N18.4 CHRONIC KIDNEY DISEASE, STAGE 4 (SEVERE) 04/20/2017 IRENE BRUCE SEGMENT BLOCK LAYER-C Ot D64.9 ANEMIA, UNSPECIFIED 04/20/2017 IRENE BRUCE SEGMENT BLOCK LAYER-C Ot N18.4 CHRONIC KIDNEY DISEASE, STAGE 4 (SEVERE) 04/29/2017 Ot 429.3 CARD IOMEGALY 04/29/2017 Ot 433.10 CAR OTID ARTERY OCCLUSION W O CEREBRAL IN 04/29/2017 Ot 433.30 MUL T BILTRAL ARTERY OCCLUSION WO CEREBRA 04/29/2017 Ot 434.91 CER EBRAL ART OCCLUSION NOS W CEREBRAL IN 04/29/2017 Ot 435.9 TYLER S CEREB ISCHEMIA NOS 04/29/2017 Ot V72.84 EXA M PRE- OPERATIVE NOS 04/29/2017 SHEA MAYFIELD ASTRONAUTICAL ENGINEER Ot 793.89 OTH (ABN) FINDINGS ON RADIOLOGICAL EXAMI 04/29/2017 SHEA MAYFIELDP Ot V76.12 OTH SCREEN MAMMO-MALIGN NEOPLASM OF YING 04/29/2017 MARGARITA CORDERO DO S Ot 793.89 OTH (ABN) FINDINGS ON RADIOLOGICAL EXAMI 04/29/2017 Ot 250.82 WAYNE B W OTH SPEC MANIFEST, TYPE II OR UNS 04/29/2017 Ot 440.23 ATH EROSCL [place] ARTER EXTREMITIES W ULC 04/29/2017 Ot 707.13 ULC ER OF ANKLE 04/29/2017 Ot 707.14 ULC ER OF HEEL AND MIDFOOT 04/29/2017 Ot 998.83 NON -HEALING SURG WOUND 04/29/2017 Ot V54.19 AFT ERCARE HEALING TRAUMATIC FX OTHER BON 04/29/2017 Ot 996.66 INF EC INFLAM REACT DUE TO INTERNL JOIN 04/29/2017 Ot V43.69 OT ER JOINT REPLACEMENT STATUS 04/29/2017 Ot V58.62 ENC OUNT FOR LONG- TERM(CURRENT) USE OF AN 04/29/2017 Ot 996.66 INF EC INFLAM REACT DUE TO INTERNL JOIN 04/29/2017 Ot V43.69 OT ER JOINT REPLACEMENT STATUS 04/29/2017 Ot V58.62 ENC OUNT FOR LONG- TERM(CURRENT) USE OF AN 04/29/2017 Ot V58.62 ENC OUNT FOR LONG- TERM(CURRENT) USE OF AN 04/29/2017 Ot V58.83 ENC OUNTER FOR THERAPEUTIC DRUG MONITORIN 04/29/2017 Ot 998.83 NON -HEALING SURG WOUND 04/29/2017 Ot 996.66 INF EC INFLAM REACT DUE TO INTERNL JOIN 04/29/2017 Ot V43.69 OTH ER JOINT REPLACEMENT STATUS 04/29/2017 Ot V58.62 ENC OUNT FOR LONG- TERM(CURRENT) USE OF AN 04/29/2017 ALBA LICEA, OLYA Joaquin Ot 276 .7 HYPERPOTASSEMIA 04/29/2017 ALBA LICEA, OLYA Joaquin Ot 276 .7 HYPERPOTASSEMIA 04/29/2017 ALBA LICEA, OLYA Joaquin Ot 276 .7 HYPERPOTASSEMIA 04/29/2017 ALBA LICEA, OLYA Joaquin Ot 250.00 DIAB CHARO WO COMPL, TYPE II OR UNSPEC TY 04/29/2017 ALBA LICEA, OLYA Joaquin Ot 276 .7 HYPERPOTASSEMIA 04/29/2017 ALBA LICEA, OLYA Joaquin Ot 276 .7 HYPERPOTASSEMIA 04/29/2017 ALBA LICEA, OLYA Joaquin Ot 276 .7 HYPERPOTASSEMIA 04/29/2017 ALBA LICEA, OLYA Joaquin Ot 276 .7 HYPERPOTASSEMIA 04/29/2017 ALBA LICEA, OLYA Joaquin Ot 276 .7 HYPERPOTASSEMIA 04/29/2017 ALBA LICEA, OLYA Joaquin Ot 276 .7 HYPERPOTASSEMIA 04/29/2017 ALBA LICEA, OLYA Joaquin Ot 998.59 OTH POSTOPER INFECTION 04/29/2017 ALBA LICEA, OLYA Joaquin Ot 276 .7 HYPERPOTASSEMIA 04/29/2017 ALBA LICEA, OLYA Joaquin Ot 276 .7 HYPERPOTASSEMIA 04/29/2017 ALBA LICEA, OLYA Joaquin Ot 276 .7 HYPERPOTASSEMIA 04/29/2017 ALBA LICEA, OLYA Joaquin Ot 276 .7 HYPERPOTASSEMIA 04/29/2017 ALBA LICEA, OLYA Joaquin Ot 276 .7 HYPERPOTASSEMIA 04/29/2017 JENN DPM, INA Q Ot L98. 8 OTH DISRD OF THE SKIN AND SUBCUTANEOUS T 04/29/2017 KRIS LICEA, LA NENA Garzon Ot M79.6 71 PAIN IN RIGHT FOOT 04/29/2017 Ot E11.621 TY PE 2 DIABETES MELLITUS WITH FOOT ULCER 04/29/2017 Ot L97.412 NO N-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 04/29/2017 IRENE BRUCE NP-C Ot D64.9 ANEMIA, UNSPECIFIED 04/29/2017 IRENE BRUCE NP-C Ot D72.8 29 ELEVATED WHITE BLOOD CELL COUNT, UNSPECI 04/29/2017 IRENE BRUCE SEGMENT BLOCK LAYER-C Ot E11.2 9 TYPE 2 DIABETES MELLITUS W OTH DIABETIC 04/29/2017 IRENE BRUCE SEGMENT BLOCK LAYER-C Ot E78.5 HYPERLIPIDEMIA, UNSPECIFIED 04/29/2017 NEWIRENE SEGMENT BLOCK LAYER-C Ot E87.5 HYPERKALEMIA 04/29/2017 IRENE BRUCE SEGMENT BLOCK LAYER-C Ot 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, W S 04/29/2017 IRENE BRUCE SEGMENT BLOCK LAYER-C Ot K31.8 4 GASTROPARESIS 04/29/2017 TEO IRENE Gandara SEGMENT BLOCK LAYER-C Ot N18.4 CHRONIC KIDNEY DISEASE, STAGE 4 (SEVERE) 04/29/2017 TEOIRENE SEGMENT BLOCK LAYER-C Ot R80.9 PROTEINURIA, UNSPECIFIED 04/29/2017 ALBA LICEA, OLYA oJaquin Ot I12 .9 HYPERTENSIVE CHRONIC KIDNEY DISEASE W ST 04/29/2017 ALBA LICEA, OLYA Joaquin Ot N18 .3 CHRONIC KIDNEY DISEASE, STAGE 3 (MODERAT 04/29/2017 KRIS LICEA, [place] NENA Garzon Ot E87.5 HYPERKALEMIA 04/29/2017 KRIS LICEA, [place] NENA Garzon Ot 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, W S 04/29/2017 KRIS LICEA, [place] NENA Garzon Ot N18.4 CHRONIC KIDNEY DISEASE, STAGE 4 (SEVERE) 04/29/2017 ALBA LICEA, OLYA Joaquin Ot D64 .9 ANEMIA, UNSPECIFIED 04/29/2017 ALBA LICEA, OLYA Joaquin Ot N18 .9 CHRONIC KIDNEY DISEASE, UNSPECIFIED 04/29/2017 CUCO LICEA, PRESTON S Ot D64.9 ANEMIA, UNSPECIFIED 04/29/2017 CUCO LICEA, PRESTON S Ot D72.829 ELEVATED WHITE BLOOD CELL COUNT, UNSPECI 04/29/2017 CUCO LICEA, PRESTON Granados Ot E11.22 TYPE 2 DIABETES MELLITUS W DIABETIC MECHANIC AND WELDER 04/29/2017 PRESTON NORWOOD MD Ot E11.42 TYPE 2 DIABETES MELLITUS WITH DIABETIC P 04/29/2017 CUCO LICEA, PRESTON Granados Ot E55.9 VITAMIN D DEFICIENCY, UNSPECIFIED 04/29/2017 PRESTON NORWOOD MD Ot E78.5 HYPERLIPIDEMIA, UNSPECIFIED 04/29/2017 PRESTON NORWOOD MD Ot E87.5 HYPERKALEMIA 04/29/2017 PRESTON NORWOOD MD Ot 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, W S 04/29/2017 PRESTON NORWOOD MD Ot K31.84 GASTROPARESIS 04/29/2017 CUCO LICEA, PRESTON Granados Ot N18.4 CHRONIC KIDNEY DISEASE, STAGE 4 (SEVERE) 04/29/2017 PRESTON NORWOOD MD Ot R80.9 PROTEINURIA, UNSPECIFIED 04/29/2017 PRESTON NORWOOD MD S Ot E87.5 HYPERKALEMIA 04/29/2017 PRESTON NORWOOD MD Ot I12.9 HYPERTENSIVE CHRONIC KIDNEY DISEASE W ST 04/29/2017 PRESTON NORWOOD MD Ot N18.4 CHRONIC KIDNEY DISEASE, STAGE 4 (SEVERE) 04/29/2017 ESTUARDO RICHARDSON APRN Ot E11.621 TYPE 2 DIABETES MELLITUS WITH FOOT ULCER 04/29/2017 ESTUARDO RICHARDSON APRN Ot L97.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 04/29/2017 PRESTON NORWOOD MD Ot N18.4 CHRONIC KIDNEY DISEASE, STAGE 4 (SEVERE) 04/29/2017 IRENE BRUCE NP-C Ot D63.1 ANEMIA IN CHRONIC KIDNEY DISEASE 04/29/2017 IRENE BRUCE NP-C Ot N18.4 CHRONIC KIDNEY DISEASE, STAGE 4 (SEVERE) 04/29/2017 ESTUARDO RICHARDSON LANDSCAPING CREW LEADER Ot E11.621 TYPE 2 DIABETES MELLITUS WITH FOOT ULCER 04/29/2017 ESTUARDO RICHARDSON APRN Ot L97.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 04/29/2017 URMILA SUTHERLAND MD Ot E78. 5 HYPERLIPIDEMIA, UNSPECIFIED 04/29/2017 URMILA SUTHERLAND MD Ot I11. 0 HYPERTENSIVE HEART DISEASE WITH HEART FA 04/29/2017 URMILA SUTHERLAND MD Ot I51. 7 CARDIOMEGALY 04/29/2017 URMILA SUTHERLAND MD Ot R07. 9 CHEST PAIN, UNSPECIFIED 04/29/2017 URMILA SUTHERLAND MD Ot I13. 0 HYP HRT CHR KDNY DIS W HRT FAIL AND ST 04/29/2017 URMILA SUTHERLAND MD Ot N18. 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, W S 04/29/2017 CUCO LICEA, PRESTON S Ot N18.4 CHRONIC KIDNEY DISEASE, STAGE 4 (SEVERE) 04/29/2017 ESTUARDO RICHARDSON LANDSCAPING CREW LEADER Ot E11.621 TYPE 2 DIABETES MELLITUS WITH FOOT ULCER 04/29/2017 ESTUARDO RICHARDSON LANDSCAPING CREW LEADER Ot L97.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 04/29/2017 PRESTON NORWOOD MD Ot N18.4 CHRONIC KIDNEY DISEASE, STAGE 4 (SEVERE) 04/29/2017 IRENE BRUCE NP-C Ot D64.9 ANEMIA, UNSPECIFIED 04/29/2017 IRENE BRUCE NP-C Ot N18.4 CHRONIC KIDNEY DISEASE, STAGE 4 (SEVERE) 05/04/2017 IRENE BRUCE NP-C Ot D64.9 ANEMIA, UNSPECIFIED 05/04/2017 IRENE BRUCE NP-C Ot N18.4 CHRONIC KIDNEY DISEASE, STAGE 4 (SEVERE) 05/05/2017 CUCO LICEA, PRESTON Granados Ot R30.0 DYSURIA 05/11/2017 CUCO LICEA, PRESTON Granados Ot R30.0 DYSURIA 05/17/2017 ESTUADRO RICHARDSON LANDSCAPING CREW LEADER Ot E11.621 TYPE 2 DIABETES MELLITUS WITH FOOT ULCER 05/17/2017 ESTUARDO RICHARDSON LANDSCAPING CREW LEADER Ot L97.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 5 HYPERLIPIDEMIA, UNSPECIFIED 05/18/2017 URMILA SUTHERLAND MD Ot I11. 0 HYPERTENSIVE HEART DISEASE WITH HEART FA 05/18/2017 URMILA SUTHERLAND MD Ot I51. 7 CARDIOMEGALY 05/18/2017 URMILA SUTHERLAND MD Ot R07. 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, W S 05/18/2017 PRESTON NORWOOD MD Ot N18.4 CHRONIC KIDNEY DISEASE, STAGE 4 (SEVERE) 05/18/2017 IRENE BRUCE NP-C Ot D64.9 ANEMIA, UNSPECIFIED 05/18/2017 IRENE BRUCE NP-James Ot N18.4 CHRONIC KIDNEY DISEASE, STAGE 4 (SEVERE) 05/18/2017 Ot 429.3 CARD IOMEGALY 05/18/2017 Ot 433.10 CAR OTID ARTERY OCCLUSION W O CEREBRAL IN 05/18/2017 Ot 433.30 MUL T BILTRAL ARTERY OCCLUSION WO CEREBRA 05/18/2017 Ot 434.91 CER EBRAL ART OCCLUSION NOS W CEREBRAL IN 05/18/2017 Ot 435.9 TYLER S CEREB ISCHEMIA NOS 05/18/2017 Ot V72.84 EXA M PRE- OPERATIVE NOS 05/18/2017 SHEA MAYFIELD ASTRONAUTICAL ENGINEER Ot 793.89 OTH (ABN) FINDINGS ON RADIOLOGICAL EXAMI 05/18/2017 SHEA MAYFIELD ASTRONAUTICAL ENGINEER Ot V76.12 OTH SCREEN MAMMO-MALIGN NEOPLASM OF YING 05/18/2017 MARGARITA CORDERO DO S Ot 793.89 OTH (ABN) FINDINGS ON RADIOLOGICAL EXAMI 05/18/2017 Ot 250.82 WAYNE B W OT SPEC MANIFEST, TYPE II OR UNS 05/18/2017 Ot 440.23 ATH EROSCL [place] ARTER EXTREMITIES W ULC 05/18/2017 Ot 707.13 ULC ER OF ANKLE 05/18/2017 Ot 707.14 ULC ER OF HEEL AND MIDFOOT 05/18/2017 Ot 998.83 NON -HEALING SURG WOUND 05/18/2017 Ot V54.19 AFT ERCARE HEALING TRAUMATIC FX OTHER BON 05/18/2017 Ot 996.66 INF EC INFLAM REACT DUE TO INTERNL JOIN 05/18/2017 Ot V43.69 [facility] ER JOINT REPLACEMENT STATUS 05/18/2017 Ot V58.62 ENC OUNT FOR LONG- TERM(CURRENT) USE OF AN 05/18/2017 Ot 996.66 INF EC INFLAM REACT DUE TO INTERNL JOIN 05/18/2017 Ot V43.69 OT ER JOINT REPLACEMENT STATUS 05/18/2017 Ot V58.62 ENC OUNT FOR LONG- TERM(CURRENT) USE OF AN 05/18/2017 Ot V58.62 ENC OUNT FOR LONG- TERM(CURRENT) USE OF AN 05/18/2017 Ot V58.83 ENC OUNTER FOR THERAPEUTIC DRUG MONITORIN 05/18/2017 Ot 998.83 NON -HEALING SURG WOUND 05/18/2017 Ot 996.66 INF EC INFLAM REACT DUE TO INTERNL JOIN 05/18/2017 Ot V43.69 [facility] ER JOINT REPLACEMENT STATUS 05/18/2017 Ot V58.62 ENC OUNT FOR LONG- TERM(CURRENT) USE OF AN 05/18/2017 ALBA LICEA, OLYA Joaquin Ot 276 .7 HYPERPOTASSEMIA 05/18/2017 OLYA WILLIS MD Ot 276 .7 HYPERPOTASSEMIA 05/18/2017 OLYA WILLIS MD Ot 276 .7 HYPERPOTASSEMIA 05/18/2017 OLYA WILLIS MD Ot 250.00 DIAB CHARO WO COMPL, TYPE II OR UNSPEC TY 05/18/2017 OLYA WILLIS MD Ot 276 .7 HYPERPOTASSEMIA 05/18/2017 OLYA WILLIS MD Ot 276 .7 HYPERPOTASSEMIA 05/18/2017 ALBA LICEA, OLYA Emani Ot 276 .7 HYPERPOTASSEMIA 05/18/2017 ALBA LICEA, OLYA Emani Ot 276 .7 HYPERPOTASSEMIA 05/18/2017 ALBA LICEA, OLYA Emani Ot 276 .7 HYPERPOTASSEMIA 05/18/2017 ALBA LICEA, OLYA Emani Ot 276 .7 HYPERPOTASSEMIA 05/18/2017 ALBA LICEA, OLYA Joaquin Ot 998.59 OTH POSTOPER INFECTION 05/18/2017 ALBA LICEA, OLYA Emani Ot 276 .7 HYPERPOTASSEMIA 05/18/2017 ALBA LICEA, OLYA Emani Ot 276 .7 HYPERPOTASSEMIA 05/18/2017 ALBA LICEA, OLYA Emani Ot 276 .7 HYPERPOTASSEMIA 05/18/2017 ALBA LICEA, OLYA Emani Ot 276 .7 HYPERPOTASSEMIA 05/18/2017 ALBA LICEA, OLYA Emani Ot 276 .7 HYPERPOTASSEMIA 05/18/2017 JENN DPM, INA Q Ot L98. 8 OTH DISRD OF THE SKIN AND SUBCUTANEOUS T 05/18/2017 KRIS LICEA, LA NENA Garzon Ot M79.6 71 PAIN IN RIGHT FOOT 05/18/2017 Ot E11.621 TY PE 2 DIABETES MELLITUS WITH FOOT ULCER 05/18/2017 Ot L97.412 NO N-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 05/18/2017 IRENE BRUCE SEGMENT BLOCK LAYER-C Ot D64.9 ANEMIA, UNSPECIFIED 05/18/2017 IRENE BRUCE SEGMENT BLOCK LAYER-C Ot D72.8 29 ELEVATED WHITE BLOOD CELL COUNT, UNSPECI 05/18/2017 IRENE BRUCE SEGMENT BLOCK LAYER-C Ot E11.2 9 TYPE 2 DIABETES MELLITUS W OTH DIABETIC 05/18/2017 IRENE BRUCE SEGMENT BLOCK LAYER-C Ot E78.5 HYPERLIPIDEMIA, UNSPECIFIED 05/18/2017 IRENE BRUCE SEGMENT BLOCK LAYER-C Ot E87.5 HYPERKALEMIA 05/18/2017 IRENE BRUCE NP-C Ot 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, W S 05/18/2017 IRENE BRUCE SEGMENT BLOCK LAYER-C Ot K31.8 4 GASTROPARESIS 05/18/2017 IRENE BRUCE SEGMENT BLOCK LAYER-C Ot N18.4 CHRONIC KIDNEY DISEASE, STAGE 4 (SEVERE) 05/18/2017 TEOIRENELino SEGMENT BLOCK LAYER-C Ot R80.9 PROTEINURIA, UNSPECIFIED 05/18/2017 ALBA LICEA, OLYA Joaquin Ot I12 .9 HYPERTENSIVE CHRONIC KIDNEY DISEASE W ST 05/18/2017 ALBA LICEA, OLYA Joaquin Ot N18 .3 CHRONIC KIDNEY DISEASE, STAGE 3 (MODERAT 05/18/2017 KRIS LICEA, LA NENA Garzon Ot E87.5 HYPERKALEMIA 05/18/2017 KRIS LICEA, LA NENA Garzon Ot 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, W S 05/18/2017 KRIS LICEA, LA NENA Garzon Ot N18.4 CHRONIC KIDNEY DISEASE, STAGE 4 (SEVERE) 05/18/2017 ALBA LICEA, OLYA Joaquin Ot D64 .9 ANEMIA, UNSPECIFIED 05/18/2017 ALBA LICEA, OLYA Joaquin Ot N18 .9 CHRONIC KIDNEY DISEASE, UNSPECIFIED 05/18/2017 CUCO LICEA, PRESTON S Ot D64.9 ANEMIA, UNSPECIFIED 05/18/2017 CUCO LICEA, PRESTON S Ot D72.829 ELEVATED WHITE BLOOD CELL COUNT, UNSPECI 05/18/2017 CUCO LICEA, PRESTON S Ot E11.22 TYPE 2 DIABETES MELLITUS W DIABETIC MECHANIC AND WELDER 05/18/2017 CUCO LICEA, AHVALARIE S Ot E11.42 TYPE 2 DIABETES MELLITUS WITH DIABETIC P 05/18/2017 CUCO LICEA, PRESTON S Ot E55.9 VITAMIN D DEFICIENCY, UNSPECIFIED 05/18/2017 CUCO LICEA, PRESTON S Ot E78.5 HYPERLIPIDEMIA, UNSPECIFIED 05/18/2017 CUCO LICEA, PRESTON S Ot E87.5 HYPERKALEMIA 05/18/2017 CUCO LICEA, PRESTON S Ot 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, W S 05/18/2017 CUCO LICEA, AHVALARIE S Ot K31.84 GASTROPARESIS 05/18/2017 CUCO LICEA, PRESTON S Ot N18.4 CHRONIC KIDNEY DISEASE, STAGE 4 (SEVERE) 05/18/2017 CUCO LICEA, PRESTON Granados Ot R80.9 PROTEINURIA, UNSPECIFIED 05/18/2017 CUCO LICEA, PRESTON Granados Ot E87.5 HYPERKALEMIA 05/18/2017 PRESTON NORWOOD MD Ot I12.9 HYPERTENSIVE CHRONIC KIDNEY DISEASE W ST 05/18/2017 PRESTON NORWOOD MD Ot N18.4 CHRONIC KIDNEY DISEASE, STAGE 4 (SEVERE) 05/18/2017 ESTUARDO RICHARDSON LANDSCAPING CREW LEADER Ot E11.621 TYPE 2 DIABETES MELLITUS WITH FOOT ULCER 05/18/2017 ESTUARDO RICHARDSON LANDSCAPING CREW LEADER Ot L97.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 5 HYPERLIPIDEMIA, UNSPECIFIED 05/18/2017 URMILA SUTHERLAND MD Ot I11. 0 HYPERTENSIVE HEART DISEASE WITH HEART FA 05/18/2017 URMILA SUTHERLAND MD Ot I51. 7 CARDIOMEGALY 05/18/2017 URMILA SUTHERLAND MD Ot R07. 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, W S 05/18/2017 PRESTON NORWOOD MD Ot N18.4 CHRONIC KIDNEY DISEASE, STAGE 4 (SEVERE) 05/18/2017 PRESTON NORWOOD MD, Ot N18.4 CHRONIC KIDNEY DISEASE, STAGE 4 (SEVERE) 05/18/2017 IRENE BRUCE NP-C Ot D64.9 ANEMIA, UNSPECIFIED 05/18/2017 IRENE BRUCE NP-C Ot N18.4 CHRONIC KIDNEY DISEASE, STAGE 4 (SEVERE) 05/18/2017 PRESTON NORWOOD MD Ot R30.0 DYSURIA 05/18/2017 ESTUARDO RICHARDSON LANDSCAPING CREW LEADER Ot E11.621 TYPE 2 DIABETES MELLITUS WITH FOOT ULCER 05/18/2017 ESTUARDO RICHARDSON LANDSCAPING CREW LEADER Ot L97.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 05/18/2017 IRENE BRUCE NP-C Ot D64.9 ANEMIA, UNSPECIFIED 05/18/2017 IRENE BRUCE NP-C Ot N18.4 CHRONIC KIDNEY DISEASE, STAGE 4 (SEVERE) 05/25/2017 ESTUARDO RICHARDSON LANDSCAPING CREW LEADER Ot E11.621 TYPE 2 DIABETES MELLITUS WITH FOOT ULCER 05/25/2017 ESTUARDO RICHARDSON LANDSCAPING CREW LEADER Ot L97.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 05/26/2017 ESTUARDO RICHARDSON LANDSCAPING CREW LEADER Ot E11.621 TYPE 2 DIABETES MELLITUS WITH FOOT ULCER 05/26/2017 ESTUARDO RICHARDSON LANDSCAPING CREW LEADER Ot L97.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 05/28/2017 PRESTON NORWOOD MD Ot D64.9 ANEMIA, UNSPECIFIED 05/28/2017 PRESTON NORWOOD MD Ot D72.829 ELEVATED WHITE BLOOD CELL COUNT, UNSPECI 05/28/2017 PRESTON NORWOOD MD Ot E11.42 TYPE 2 DIABETES MELLITUS WITH DIABETIC P 05/28/2017 PRESTON NORWOOD MD Ot E55.9 VITAMIN D DEFICIENCY, UNSPECIFIED 05/28/2017 PRESTON NORWOOD MD Ot E78.5 HYPERLIPIDEMIA, UNSPECIFIED 05/28/2017 PRESTON NORWOOD MD Ot E87.5 HYPERKALEMIA 05/28/2017 PRESTON NORWOOD MD Ot E88.09 OTH DISORDERS OF PLASMA-PROTEIN METABOLI 05/28/2017 PRESTON NORWOOD MD Ot I12.9 HYPERTENSIVE CHRONIC KIDNEY DISEASE W ST 05/28/2017 PRESTON NORWOOD MD Ot K31.84 GASTROPARESIS 05/28/2017 PRESTON NORWOOD MD Ot N18.4 CHRONIC KIDNEY DISEASE, STAGE 4 (SEVERE) 05/28/2017 PRESTON NORWOOD MD Ot N25.81 SECONDARY HYPERPARATHYROIDISM OF RENAL O 05/28/2017 PRESTON NORWOOD MD Ot R80.9 PROTEINURIA, UNSPECIFIED 06/04/2017 IRENE BRUCE NP-C Ot D64.9 ANEMIA, UNSPECIFIED 06/04/2017 IRENE BRUCE NP-C Ot N18.4 CHRONIC KIDNEY DISEASE, STAGE 4 (SEVERE) 06/04/2017 ESTUARDO RICHARDSON APRN Ot E11.621 TYPE 2 DIABETES MELLITUS WITH FOOT ULCER 06/04/2017 ESTUARDO RICHARDSON APRN Ot L97.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 06/07/2017 PRESTON NORWOOD MD Ot D64.9 ANEMIA, UNSPECIFIED 06/07/2017 PRESTON NORWOOD MD Ot D72.829 ELEVATED WHITE BLOOD CELL COUNT, UNSPECI 06/07/2017 PRESTON NORWOOD MD Ot E11.42 TYPE 2 DIABETES MELLITUS WITH DIABETIC P 06/07/2017 PRESTON NORWOOD MD Ot E55.9 VITAMIN D DEFICIENCY, UNSPECIFIED 06/07/2017 PRESTON NORWOOD MD Ot E78.5 HYPERLIPIDEMIA, UNSPECIFIED 06/07/2017 PRESTON NORWOOD MD Ot E87.5 HYPERKALEMIA 06/07/2017 PRESTON NORWOOD MD Ot E88.09 OTH DISORDERS OF PLASMA-PROTEIN METABOLI 06/07/2017 CUCO LICEA, PRESTON Granados Ot I12.9 HYPERTENSIVE CHRONIC KIDNEY DISEASE W ST 06/07/2017 PRESTON NORWOOD MD Ot K31.84 GASTROPARESIS 06/07/2017 PRESTON NORWOOD MD Ot N18.4 CHRONIC KIDNEY DISEASE, STAGE 4 (SEVERE) 06/07/2017 PRESTON NORWOOD MD Ot N25.81 SECONDARY HYPERPARATHYROIDISM OF RENAL O 06/07/2017 PRESTON NORWOOD MD Ot R80.9 PROTEINURIA, UNSPECIFIED 06/15/2017 IRENE BRUCE NP-James Ot D64.9 ANEMIA, UNSPECIFIED 06/15/2017 IRENE BRUCE NP-James Ot N18.4 CHRONIC KIDNEY DISEASE, STAGE 4 (SEVERE) 06/16/2017 PRESTON NORWOOD MD, Ot N18.4 CHRONIC KIDNEY DISEASE, STAGE 4 (SEVERE) 06/16/2017 PRESTON NORWOOD MD Ot 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 5 HYPERLIPIDEMIA, UNSPECIFIED 06/29/2017 URMILA SUTHERLAND MD Ot I11. 0 HYPERTENSIVE HEART DISEASE WITH HEART FA 06/29/2017 URMILA SUTHERLAND MD Ot I51. 7 CARDIOMEGALY 06/29/2017 URMILA SUTHERLAND MD Ot R07. 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 06/29/2017 ESTUARDO RICHARDSON LANDSCAPING CREW LEADER Ot N18.4 CHRONIC KIDNEY DISEASE, STAGE 4 (SEVERE) 06/29/2017 ESTUARDO RICHARDSON LANDSCAPING CREW LEADER Ot R60.1 GENERALIZED EDEMA 07/05/2017 IRENE BRUCE SEGMENT BLOCK LAYER-C Ot D63.1 ANEMIA IN CHRONIC KIDNEY DISEASE 07/05/2017 IRENE BRUCE SEGMENT BLOCK LAYER-C Ot N18.4 CHRONIC KIDNEY DISEASE, STAGE 4 (SEVERE) 07/05/2017 ESTUARDO RICHARDSON LANDSCAPING CREW LEADER Ot E11.621 TYPE 2 DIABETES MELLITUS WITH FOOT ULCER 07/05/2017 ESTUARDO RICHARDSON LANDSCAPING CREW LEADER Ot L97.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 07/05/2017 ESTUARDO RICHARDSON LANDSCAPING CREW LEADER Ot N18.4 CHRONIC KIDNEY DISEASE, STAGE 4 (SEVERE) 07/05/2017 ESTUARDO RICHARDSON LANDSCAPING CREW LEADER Ot R60.1 GENERALIZED EDEMA 07/07/2017 ESTUARDO RICHARDSON LANDSCAPING CREW LEADER Ot L97.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 07/13/2017 IRENE BRUCE SEGMENT BLOCK LAYER-C Ot D63.1 ANEMIA IN CHRONIC KIDNEY DISEASE 07/13/2017 IRENE BRUCE SEGMENT BLOCK LAYER-C Ot N18.4 CHRONIC KIDNEY DISEASE, STAGE 4 (SEVERE) 07/14/2017 IRENE BRUCE SEGMENT BLOCK LAYER-C Ot D63.1 ANEMIA IN CHRONIC KIDNEY DISEASE 07/14/2017 IRENE BRUCE SEGMENT BLOCK LAYER-C Ot N18.4 CHRONIC KIDNEY DISEASE, STAGE 4 (SEVERE) 07/15/2017 CUCO LICEA, PRESTON S Ot D64.9 ANEMIA, UNSPECIFIED 07/15/2017 CUCO LICEA, PRESTON S Ot D72.829 ELEVATED WHITE BLOOD CELL COUNT, UNSPECI 07/15/2017 CUCO LICEA, PRESTON S Ot E11.42 TYPE 2 DIABETES MELLITUS WITH DIABETIC P 07/15/2017 CUCO LICEA, PRESTON Granados Ot E55.9 VITAMIN D DEFICIENCY, UNSPECIFIED 07/15/2017 CUCO LICEA, PRESTON Granados Ot E78.5 HYPERLIPIDEMIA, UNSPECIFIED 07/15/2017 CUCO LICEA, PRESTON Granados Ot E87.5 HYPERKALEMIA 07/15/2017 CUCO LICEA, PRESTON Granados Ot E88.09 OTH DISORDERS OF PLASMA-PROTEIN METABOLI 07/15/2017 CUCO LICEA, PRESTON Granados Ot I12.9 HYPERTENSIVE CHRONIC KIDNEY DISEASE W ST 07/15/2017 CUCO LICEA, PRESTON Granados Ot K31.84 GASTROPARESIS 07/15/2017 CUCO LICEA, PRESTON Granados Ot N18.4 CHRONIC KIDNEY DISEASE, STAGE 4 (SEVERE) 07/15/2017 CUCO LICEA, PRESTON Granados Ot N25.81 SECONDARY HYPERPARATHYROIDISM OF RENAL O 07/15/2017 CUCO LICEA, PRESTON Granados Ot R80.9 PROTEINURIA, UNSPECIFIED 07/15/2017 Ot D64.9 ANEM IA, UNSPECIFIED 07/15/2017 Ot 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 MECHANIC AND WELDER 07/15/2017 Ot N18.4 MECHANIC AND WELDER ERNESTO KIDNEY DISEASE, STAGE 4 (SEVERE) 07/20/2017 ESTUARDO RICHARDSON APRN Ot L97.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 07/21/2017 IRENE BRUCE NP-C Ot D64.9 ANEMIA, UNSPECIFIED 07/21/2017 IRENE BRUCE NP-James Ot E11.2 9 TYPE 2 DIABETES MELLITUS W OTH DIABETIC 07/21/2017 IRENE BRUCE NP-C Ot E11.4 0 TYPE 2 DIABETES MELLITUS WITH DIABETIC N 07/21/2017 IRENE BRUCEC Ot E55.9 VITAMIN D DEFICIENCY, UNSPECIFIED 07/21/2017 IRENE BRUCE Ot E78.5 HYPERLIPIDEMIA, UNSPECIFIED 07/21/2017 IRENE BRUCE NP-C Ot E87.5 HYPERKALEMIA 07/21/2017 IRENE BRUCE NP-C Ot 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, W S 07/21/2017 IRENE BRUCE NP-C Ot K31.8 4 GASTROPARESIS 07/21/2017 NEW, IRENE Gandara SEGMENT BLOCK LAYER-C Ot N18.4 CHRONIC KIDNEY DISEASE, STAGE 4 (SEVERE) 07/21/2017 NEW, IRENE GLino SEGMENT BLOCK LAYER-C Ot N25.8 1 SECONDARY HYPERPARATHYROIDISM OF RENAL O 07/21/2017 NEW, IRENE Gandara SEGMENT BLOCK LAYER-C Ot R80.8 OTHER PROTEINURIA 07/21/2017 NEW, IRENE GLino SEGMENT BLOCK LAYER-C Ot D64.9 ANEMIA, UNSPECIFIED 07/21/2017 NEW, IRENE GLino SEGMENT BLOCK LAYER-C Ot E11.2 9 TYPE 2 DIABETES MELLITUS W OTH DIABETIC 07/21/2017 NEW, IRENE GLino SEGMENT BLOCK LAYER-C Ot E11.4 0 TYPE 2 DIABETES MELLITUS WITH DIABETIC N 07/21/2017 NEW, IRENE GLino SEGMENT BLOCK LAYER-C Ot E55.9 VITAMIN D DEFICIENCY, UNSPECIFIED 07/21/2017 NEW, IRENE GLino SEGMENT BLOCK LAYER-C Ot E78.5 HYPERLIPIDEMIA, UNSPECIFIED 07/21/2017 NEW, IRENE HarryLino SEGMENT BLOCK LAYER-C Ot E87.5 HYPERKALEMIA 07/21/2017 NEW, IRENE GLino SEGMENT BLOCK LAYER-C Ot 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, W S 07/21/2017 NEW, IRENE McdonaldLino SEGMENT BLOCK LAYER-C Ot K31.8 4 GASTROPARESIS 07/21/2017 NEW, IRENE McdonaldLino SEGMENT BLOCK LAYER-C Ot N18.4 CHRONIC KIDNEY DISEASE, STAGE 4 (SEVERE) 07/21/2017 NEW, IRENE GLino SEGMENT BLOCK LAYER-C Ot N25.8 1 SECONDARY HYPERPARATHYROIDISM OF RENAL O 07/21/2017 NEW, IRENE GLino SEGMENT BLOCK LAYER-C Ot R80.8 OTHER PROTEINURIA 07/21/2017 NEW, IRENE GLino SEGMENT BLOCK LAYER-C Ot D63.1 ANEMIA IN CHRONIC KIDNEY DISEASE 07/21/2017 NEW, IRENE GLino SEGMENT BLOCK LAYER-C Ot N18.4 CHRONIC KIDNEY DISEASE, STAGE 4 (SEVERE) 07/24/2017 NEW, IRENE G. SEGMENT BLOCK LAYER-C Ot D63.1 ANEMIA IN CHRONIC KIDNEY DISEASE 07/24/2017 NEW, IRENE G. SEGMENT BLOCK LAYER-C Ot N18.4 CHRONIC KIDNEY DISEASE, STAGE 4 (SEVERE) 07/30/2017 NEW, IRENE HarryLino SEGMENT BLOCK LAYER-C Ot D64.9 ANEMIA, UNSPECIFIED 07/30/2017 NEW, IRENE G. SEGMENT BLOCK LAYER-C Ot E11.2 9 TYPE 2 DIABETES MELLITUS W OTH DIABETIC 07/30/2017 TEOIRENE SEGMENT BLOCK LAYER-C Ot E11.4 0 TYPE 2 DIABETES MELLITUS WITH DIABETIC N 07/30/2017 TEOIRENE SEGMENT BLOCK LAYER-C Ot E55.9 VITAMIN D DEFICIENCY, UNSPECIFIED 07/30/2017 TEOIRENE SEGMENT BLOCK LAYER-C Ot E78.5 HYPERLIPIDEMIA, UNSPECIFIED 07/30/2017 TEOIRENE SEGMENT BLOCK LAYER-C Ot E87.5 HYPERKALEMIA 07/30/2017 TEO IRENE Gandara SEGMENT BLOCK LAYER-C Ot 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, W S 07/30/2017 TEOIRENE SEGMENT BLOCK LAYER-C Ot K31.8 4 GASTROPARESIS 07/30/2017 TEO IRENE Gandara SEGMENT BLOCK LAYER-C Ot N18.4 CHRONIC KIDNEY DISEASE, STAGE 4 (SEVERE) 07/30/2017 TEO IRENE Gandara SEGMENT BLOCK LAYER-C Ot N25.8 1 SECONDARY HYPERPARATHYROIDISM OF RENAL O 07/30/2017 TOE IRENE Gandara SEGMENT BLOCK LAYER-C Ot R80.8 OTHER PROTEINURIA 08/05/2017 ALBA LICEA, OLYA Joaquin Ot 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 08/05/2017 OLYA WILLIS MD Ot M79 .9 SOFT TISSUE DISORDER, UNSPECIFIED 08/05/2017 ALBA LICEA, OLYA Joaquin Ot R93 .7 ABNORMAL FINDINGS ON DIAGNOSTIC IMAGING 08/10/2017 TEO IRENE McdonaldLino SEGMENT BLOCK LAYER-C Ot D63.1 ANEMIA IN CHRONIC KIDNEY DISEASE 08/10/2017 TEO IRENE Gandara SEGMENT BLOCK LAYER-C Ot N18.4 CHRONIC KIDNEY DISEASE, STAGE 4 (SEVERE) 08/10/2017 TEO IRENE McdonaldLino SEGMENT BLOCK LAYER-C Ot D63.1 ANEMIA IN CHRONIC KIDNEY DISEASE 08/10/2017 NEW IRENE Gandara SEGMENT BLOCK LAYER-C Ot N18.4 CHRONIC KIDNEY DISEASE, STAGE 4 (SEVERE) 08/11/2017 TEO IRENE McdonaldLino SEGMENT BLOCK LAYER-C Ot D63.1 ANEMIA IN CHRONIC KIDNEY DISEASE 08/11/2017 TEO IRENE Gandara SEGMENT BLOCK LAYER-C Ot N18.4 CHRONIC KIDNEY DISEASE, STAGE 4 (SEVERE) 08/16/2017 OLYA WILLIS MD Ot 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 08/16/2017 OLYA WILLIS MD, Ot M79 .9 SOFT TISSUE DISORDER, UNSPECIFIED 08/16/2017 OLYA WILLIS MD Ot R93 .7 ABNORMAL FINDINGS ON DIAGNOSTIC IMAGING 08/24/2017 OLYA WILLIS MD Ot E11.22 TYPE 2 DIABETES MELLITUS W DIABETIC MECHANIC AND WELDER 08/24/2017 OLYA WILLIS MD, Ot E11.621 TYPE 2 DIABETES MELLITUS WITH FOOT ULCER 08/24/2017 OLYA WILLIS MD, Ot L97.519 NON-PRS CHRONIC ULCER OTH PRT RIGHT FOOT 08/24/2017 OLYA WILLIS MD, Ot N18 .9 CHRONIC KIDNEY DISEASE, UNSPECIFIED 08/24/2017 OLYA WILLIS MD Ot R60 .0 LOCALIZED EDEMA 08/26/2017 CUCO LICEA, PRESTON Granados Ot D64.9 ANEMIA, UNSPECIFIED 08/26/2017 CUCO LICEA, PRESTON S Ot N19 UNSPECIFIED KIDNEY FAILURE 08/31/2017 OLYA WILLIS MD, Ot E11.22 TYPE 2 DIABETES MELLITUS W DIABETIC MECHANIC AND WELDER 08/31/2017 OLYA WILLIS MD, Ot E11.621 TYPE 2 DIABETES MELLITUS WITH FOOT ULCER 08/31/2017 OLYA WILLIS MD, Ot L97.519 NON-PRS CHRONIC ULCER OTH PRT RIGHT FOOT 08/31/2017 OLYA WILLIS MD, Ot N18 .9 CHRONIC KIDNEY DISEASE, UNSPECIFIED 08/31/2017 OLYA WILLIS MD Ot R60 .0 LOCALIZED EDEMA 09/03/2017 CUCO LICEA, PRESTON S Ot D64.9 ANEMIA, UNSPECIFIED 09/03/2017 CUCO LICEA, PRESTON S Ot N19 UNSPECIFIED KIDNEY FAILURE 09/06/2017 IRENE BRUCE SEGMENT BLOCK LAYER-C Ot D63.1 ANEMIA IN CHRONIC KIDNEY DISEASE 09/06/2017 IRENE BRUCE SEGMENT BLOCK LAYER-C Ot N18.4 CHRONIC KIDNEY DISEASE, STAGE 4 (SEVERE) 09/07/2017 IRENE BRUCE SEGMENT BLOCK LAYER-C Ot D63.1 ANEMIA IN CHRONIC KIDNEY DISEASE 09/07/2017 IRENE BRUCE SEGMENT BLOCK LAYER-C Ot N18.4 CHRONIC KIDNEY DISEASE, STAGE 4 (SEVERE) 09/07/2017 IRENE BRUCE SEGMENT BLOCK LAYER-C Ot D63.1 ANEMIA IN CHRONIC KIDNEY DISEASE 09/07/2017 IRENE BRUCE SEGMENT BLOCK LAYER-C Ot N18.4 CHRONIC KIDNEY DISEASE, STAGE 4 (SEVERE) 09/29/2017 CUCO LICEA, PRESTON Granados Ot Z00.00 ENCNTR FOR GENERAL ADULT MEDICAL EXAM W/ 10/12/2017 IRENE BRUCE SEGMENT BLOCK LAYER-C Ot D63.1 ANEMIA IN CHRONIC KIDNEY DISEASE 10/12/2017 IRENE BRUCE SEGMENT BLOCK LAYER-C Ot N18.4 CHRONIC KIDNEY DISEASE, STAGE 4 (SEVERE) 11/08/2017 IRENE BRUCE SEGMENT BLOCK LAYER-C Ot D63.1 ANEMIA IN CHRONIC KIDNEY DISEASE 11/08/2017 IRENE BRUCE SEGMENT BLOCK LAYER-C Ot N18.4 CHRONIC KIDNEY DISEASE, STAGE 4 (SEVERE) 11/26/2017 ALBA LICEA, OLYA Joaquin Ot E11.22 TYPE 2 DIABETES MELLITUS W DIABETIC MECHANIC AND WELDER 11/26/2017 OLYA WILLIS MD Ot E11.621 TYPE 2 DIABETES MELLITUS WITH FOOT ULCER 11/26/2017 OLYA WILLIS MD Ot L97.519 NON-PRS CHRONIC ULCER OTH PRT RIGHT FOOT 11/26/2017 OLYA WILLIS MD Ot N18 .9 CHRONIC KIDNEY DISEASE, UNSPECIFIED 11/26/2017 OLYA WILLIS MD Ot R60 .0 LOCALIZED EDEMA 11/26/2017 Ot 429.3 CARD IOMEGALY 11/26/2017 Ot 433.10 CAR OTID ARTERY OCCLUSION W O CEREBRAL IN 11/26/2017 Ot 433.30 MUL T BILTRAL ARTERY OCCLUSION WO CEREBRA 11/26/2017 Ot 434.91 CER EBRAL ART OCCLUSION NOS W CEREBRAL IN 11/26/2017 Ot 435.9 TYLER S CEREB ISCHEMIA NOS 11/26/2017 Ot V72.84 EXA M PRE- OPERATIVE NOS 11/26/2017 SHEA MAYFIELD ASTRONAUTICAL ENGINEER Ot 793.89 OTH (ABN) FINDINGS ON RADIOLOGICAL EXAMI 11/26/2017 SHEA MAYFIELD ASTRONAUTICAL ENGINEER Ot V76.12 OTH SCREEN MAMMO-MALIGN NEOPLASM OF YING 11/26/2017 BARBIE DOMARGARITA S Ot 793.89 OTH (ABN) FINDINGS ON RADIOLOGICAL EXAMI 11/26/2017 Ot 250.82 WAYNE B W OTH SPEC MANIFEST, TYPE II OR UNS 11/26/2017 Ot 440.23 ATH EROSCL [place] [facility] [place] ARTER EXTREMITIES W ULC 11/26/2017 Ot 707.13 ULC ER OF ANKLE 11/26/2017 Ot 707.14 ULC ER OF HEEL AND MIDFOOT 11/26/2017 Ot 998.83 NON -HEALING SURG WOUND 11/26/2017 Ot V54.19 AFT ERCARE HEALING TRAUMATIC FX OTHER BON 11/26/2017 Ot 996.66 INF EC INFLAM REACT DUE TO INTERNL JOIN 11/26/2017 Ot V43.69 [facility] ER JOINT REPLACEMENT STATUS 11/26/2017 Ot V58.62 ENC OUNT FOR LONG- TERM(CURRENT) USE OF AN 11/26/2017 Ot 996.66 INF EC INFLAM REACT DUE TO INTERNL JOIN 11/26/2017 Ot V43.69 [facility] ER JOINT REPLACEMENT STATUS 11/26/2017 Ot V58.62 ENC OUNT FOR LONG- TERM(CURRENT) USE OF AN 11/26/2017 Ot V58.62 ENC OUNT FOR LONG- TERM(CURRENT) USE OF AN 11/26/2017 Ot V58.83 ENC OUNTER FOR THERAPEUTIC DRUG MONITORIN 11/26/2017 Ot 998.83 NON -HEALING SURG WOUND 11/26/2017 Ot 996.66 INF EC INFLAM REACT DUE TO INTERNL JOIN 11/26/2017 Ot V43.69 [facility] ER JOINT REPLACEMENT STATUS 11/26/2017 Ot V58.62 ENC OUNT FOR LONG- TERM(CURRENT) USE OF AN 11/26/2017 ALBA LICEA, OLYA Joaquin Ot 276 .7 HYPERPOTASSEMIA 11/26/2017 ALBA LICEA, OLYA Joaquin Ot 276 .7 HYPERPOTASSEMIA 11/26/2017 ALBA LICEA, OLYA Joaquin Ot 276 .7 HYPERPOTASSEMIA 11/26/2017 ALBA LICEA, OLYA Joaquin Ot 250.00 DIAB CHARO WO COMPL, TYPE II OR UNSPEC TY 11/26/2017 ALBA LICEA, OLYA Joaquin Ot 276 .7 HYPERPOTASSEMIA 11/26/2017 ALBA LICEA, OLYA Joaquin Ot 276 .7 HYPERPOTASSEMIA 11/26/2017 ALBA LICEA, OLYA Joaquin Ot 276 .7 HYPERPOTASSEMIA 11/26/2017 ALBA LICEA, OLYA Joaquin Ot 276 .7 HYPERPOTASSEMIA 11/26/2017 ALBA LICEA, OLYA Joaquin Ot 276 .7 HYPERPOTASSEMIA 11/26/2017 ALBA LICEA, OLYA Joaquin Ot 276 .7 HYPERPOTASSEMIA 11/26/2017 ALBA LICEA, OLYA Joaquin Ot 998.59 OTH POSTOPER INFECTION 11/26/2017 ALBA LICEA, OLYA Joaquin Ot 276 .7 HYPERPOTASSEMIA 11/26/2017 ALBA LICEA, OLYA Joaquin Ot 276 .7 HYPERPOTASSEMIA 11/26/2017 ALBA LICEA, OLYA Joaquin Ot 276 .7 HYPERPOTASSEMIA 11/26/2017 ALBA LICEA, OLYA Joaquin Ot 276 .7 HYPERPOTASSEMIA 11/26/2017 ALBA LICEA, OLYA Joaquin Ot 276 .7 HYPERPOTASSEMIA 11/26/2017 JENN DPM, INA Q Ot L98. 8 OTH DISRD OF THE SKIN AND SUBCUTANEOUS T 11/26/2017 KRIS LICEA, LA NENA Garzon Ot M79.6 71 PAIN IN RIGHT FOOT 11/26/2017 Ot E11.621 TY PE 2 DIABETES MELLITUS WITH FOOT ULCER 11/26/2017 Ot L97.412 NO N-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 11/26/2017 NEWIRENE SEGMENT BLOCK LAYER-C Ot D64.9 ANEMIA, UNSPECIFIED 11/26/2017 IRENE BRUCE SEGMENT BLOCK LAYER-C Ot D72.8 29 ELEVATED WHITE BLOOD CELL COUNT, UNSPECI 11/26/2017 IRENE BRUCE SEGMENT BLOCK LAYER-C Ot E11.2 9 TYPE 2 DIABETES MELLITUS W OTH DIABETIC 11/26/2017 IRENE BRUCE SEGMENT BLOCK LAYER-C Ot E78.5 HYPERLIPIDEMIA, UNSPECIFIED 11/26/2017 IRENE BRUCE SEGMENT BLOCK LAYER-C Ot E87.5 HYPERKALEMIA 11/26/2017 IRENE BRUCE NP-C Ot 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, W S 11/26/2017 IRENE BRUCE SEGMENT BLOCK LAYER-C Ot K31.8 4 GASTROPARESIS 11/26/2017 IRENE BRUCE SEGMENT BLOCK LAYER-C Ot N18.4 CHRONIC KIDNEY DISEASE, STAGE 4 (SEVERE) 11/26/2017 IRENE BRUCE SEGMENT BLOCK LAYER-C Ot R80.9 PROTEINURIA, UNSPECIFIED 11/26/2017 ALBA LICEA, OLYA Joaquin Ot I12 .9 HYPERTENSIVE CHRONIC KIDNEY DISEASE W ST 11/26/2017 ALBA LICEA, OLYA Joaquin Ot N18 .3 CHRONIC KIDNEY DISEASE, STAGE 3 (MODERAT 11/26/2017 KRIS LICEA, [place] NENA Garzon Ot E87.5 HYPERKALEMIA 11/26/2017 KRIS LICEA, LA NENA Garzon Ot 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, W S 11/26/2017 KRIS LICEA, LA NENA Garzon Ot N18.4 CHRONIC KIDNEY DISEASE, STAGE 4 (SEVERE) 11/26/2017 ALBA LICEA, OLYA Joaquin Ot D64 .9 ANEMIA, UNSPECIFIED 11/26/2017 ALBA LICEA, OLYA Joaquin Ot N18 .9 CHRONIC KIDNEY DISEASE, UNSPECIFIED 11/26/2017 CUCO LICEA, PRESTON S Ot D64.9 ANEMIA, UNSPECIFIED 11/26/2017 CUCO LICEA, MARIBELMED S Ot D72.829 ELEVATED WHITE BLOOD CELL COUNT, UNSPECI 11/26/2017 CUCO LICEA, AHMED S Ot E11.22 TYPE 2 DIABETES MELLITUS W DIABETIC MECHANIC AND WELDER 11/26/2017 CUCO LICEA, MARIBELMED S Ot E11.42 TYPE 2 DIABETES MELLITUS WITH DIABETIC P 11/26/2017 CUCO LICEA, AHMED S Ot E55.9 VITAMIN D DEFICIENCY, UNSPECIFIED 11/26/2017 CUCO LICEA, MARIBELMED S Ot E78.5 HYPERLIPIDEMIA, UNSPECIFIED 11/26/2017 CUCO LICEA, MARIBELMED S Ot E87.5 HYPERKALEMIA 11/26/2017 CUCO LICEA, MARIBELMED S Ot 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, W S 11/26/2017 CUCO LICEA, MARIBELMED S Ot K31.84 GASTROPARESIS 11/26/2017 CUCO LICEA, MARIBELMED S Ot N18.4 CHRONIC KIDNEY DISEASE, STAGE 4 (SEVERE) 11/26/2017 CUCO LICEA, PRESTON S Ot R80.9 PROTEINURIA, UNSPECIFIED 11/26/2017 CUCO LICEA, MARIBELMED S Ot E87.5 HYPERKALEMIA 11/26/2017 CUCO LICEA, PRESTON S Ot I12.9 HYPERTENSIVE CHRONIC KIDNEY DISEASE W ST 11/26/2017 CUCO LICEA, PRESTON S Ot N18.4 CHRONIC KIDNEY DISEASE, STAGE 4 (SEVERE) 11/26/2017 DEBRA, ESTUARDO R LANDSCAPING CREW LEADER Ot E11.621 TYPE 2 DIABETES MELLITUS WITH FOOT ULCER 11/26/2017 ESTUARDO RICHARDSON LANDSCAPING CREW LEADER Ot L97.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 11/26/2017 CUCO LICEA, PRESTON Granados Ot N18.4 CHRONIC KIDNEY DISEASE, STAGE 4 (SEVERE) 11/26/2017 IRENE BRUCE SEGMENT BLOCK LAYER-C Ot D63.1 ANEMIA IN CHRONIC KIDNEY DISEASE 11/26/2017 IRENE BRUCE NP-C Ot N18.4 CHRONIC KIDNEY DISEASE, STAGE 4 (SEVERE) 11/26/2017 ESTUARDO RICHARDSON LANDSCAPING CREW LEADER Ot E11.621 TYPE 2 DIABETES MELLITUS WITH FOOT ULCER 11/26/2017 ESTUARDO RICHARDSON LANDSCAPING CREW LEADER Ot L97.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 11/26/2017 URMILA SUTHERLAND MD Ot E78. 5 HYPERLIPIDEMIA, UNSPECIFIED 11/26/2017 URMILA SUTHERLAND MD Ot I11. 0 HYPERTENSIVE HEART DISEASE WITH HEART FA 11/26/2017 URMILA SUTHERLAND MD Ot I51. 7 CARDIOMEGALY 11/26/2017 URMILA SUTHERLAND MD Ot R07. 9 CHEST PAIN, UNSPECIFIED 11/26/2017 URMILA SUTHERLAND MD Ot I13. 0 HYP HRT CHR KDNY DIS W HRT FAIL AND ST 11/26/2017 URMILA SUTHERLAND MD Ot N18. 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, W S 11/26/2017 PRESTON NORWOOD MD Ot N18.4 CHRONIC KIDNEY DISEASE, STAGE 4 (SEVERE) 11/26/2017 PRESTON NORWOOD MD, Ot N18.4 CHRONIC KIDNEY DISEASE, STAGE 4 (SEVERE) 11/26/2017 PRESTON NORWOOD MD S Ot R30.0 DYSURIA 11/26/2017 ESTUARDO RICHARDSON APRN Ot E11.621 TYPE 2 DIABETES MELLITUS WITH FOOT ULCER 11/26/2017 ESTUARDO RICHARDSON APRN Ot L97.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 11/26/2017 PRESTON NORWOOD MD Ot D64.9 ANEMIA, UNSPECIFIED 11/26/2017 PRESTON NORWOOD MD S Ot D72.829 ELEVATED WHITE BLOOD CELL COUNT, UNSPECI 11/26/2017 PRESTON NORWOOD MD S Ot E11.42 TYPE 2 DIABETES MELLITUS WITH DIABETIC P 11/26/2017 PRESTON NORWOOD MD Ot E55.9 VITAMIN D DEFICIENCY, UNSPECIFIED 11/26/2017 PRESTON NORWOOD MD S Ot E78.5 HYPERLIPIDEMIA, UNSPECIFIED 11/26/2017 PRESTON NORWOOD MD S Ot E87.5 HYPERKALEMIA 11/26/2017 PRESTON NORWOOD MD S Ot E88.09 OTH DISORDERS OF PLASMA-PROTEIN METABOLI 11/26/2017 PRESTON NORWOOD MD S Ot I12.9 HYPERTENSIVE CHRONIC KIDNEY DISEASE W ST 11/26/2017 PRESTON NORWOOD MD S Ot K31.84 GASTROPARESIS 11/26/2017 PRESTON NORWOOD MD S Ot N18.4 CHRONIC KIDNEY DISEASE, STAGE 4 (SEVERE) 11/26/2017 PRESTON NORWOOD MD S Ot N25.81 SECONDARY HYPERPARATHYROIDISM OF RENAL O 11/26/2017 PRESTON NORWOOD MD S Ot R80.9 PROTEINURIA, UNSPECIFIED 11/26/2017 ESTUARDO RICHARDSON LANDSCAPING CREW LEADER Ot E11.621 TYPE 2 DIABETES MELLITUS WITH FOOT ULCER 11/26/2017 ESTUARDO RICHARDSON APRN Ot I87.312 CHRONIC VENOUS HYPERTENSION W ULCER OF L 11/26/2017 DEBRA, ESTUARDO R LANDSCAPING CREW LEADER Ot L97.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 11/26/2017 ESTUARDO RICHARDSON LANDSCAPING CREW LEADER Ot N18.4 CHRONIC KIDNEY DISEASE, STAGE 4 (SEVERE) 11/26/2017 ESTUARDO RICHARDSON LANDSCAPING CREW LEADER Ot R60.1 GENERALIZED EDEMA 11/26/2017 ESTUARDO RICHARDSON LANDSCAPING CREW LEADER Ot E11.621 TYPE 2 DIABETES MELLITUS WITH FOOT ULCER 11/26/2017 ESTUARDO RICHARDSON LANDSCAPING CREW LEADER Ot L97.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 11/26/2017 ESTUARDO RICHARDSON LANDSCAPING CREW LEADER Ot N18.4 CHRONIC KIDNEY DISEASE, STAGE 4 (SEVERE) 11/26/2017 ESTUARDO RICHARDSON LANDSCAPING CREW LEADER Ot R60.1 GENERALIZED EDEMA 11/26/2017 Ot D64.9 ANEM IA, UNSPECIFIED 11/26/2017 Ot 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 MECHANIC AND WELDER 11/26/2017 Ot N18.4 MECHANIC AND WELDER ERNESTO KIDNEY DISEASE, STAGE 4 (SEVERE) 11/26/2017 ESTUARDO RICHARDSON LANDSCAPING CREW LEADER Ot L97.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 11/26/2017 IRENE BRUCE SEGMENT BLOCK LAYER-C Ot D64.9 ANEMIA, UNSPECIFIED 11/26/2017 IRENE BRUCE SEGMENT BLOCK LAYER-C Ot E11.2 9 TYPE 2 DIABETES MELLITUS W OTH DIABETIC 11/26/2017 IRENE BRUCE SEGMENT BLOCK LAYER-C Ot E11.4 0 TYPE 2 DIABETES MELLITUS WITH DIABETIC N 11/26/2017 IRENE BRUCE SEGMENT BLOCK LAYER-C Ot E55.9 VITAMIN D DEFICIENCY, UNSPECIFIED 11/26/2017 IRENE BRUCE SEGMENT BLOCK LAYER-C Ot E78.5 HYPERLIPIDEMIA, UNSPECIFIED 11/26/2017 RIENE BRUCE SEGMENT BLOCK LAYER-C Ot E87.5 HYPERKALEMIA 11/26/2017 IRENE BRUCE SEGMENT BLOCK LAYER-C Ot 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, W S 11/26/2017 IRENE BRUCE SEGMENT BLOCK LAYER-C Ot K31.8 4 GASTROPARESIS 11/26/2017 IRENE BRUCE SEGMENT BLOCK LAYER-C Ot N18.4 CHRONIC KIDNEY DISEASE, STAGE 4 (SEVERE) 11/26/2017 IRENE BRUCE SEGMENT BLOCK LAYER-C Ot N25.8 1 SECONDARY HYPERPARATHYROIDISM OF RENAL O 11/26/2017 IRENE BRUCE NP-C Ot R80.8 OTHER PROTEINURIA 11/26/2017 OLYA WILLIS MD, Ot 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 11/26/2017 OLYA WILLIS MD, Ot M79 .9 SOFT TISSUE DISORDER, UNSPECIFIED 11/26/2017 OLYA WILLIS MD Ot R93 .7 ABNORMAL FINDINGS ON DIAGNOSTIC IMAGING 11/26/2017 OLYA WILLIS MD Ot E11.22 TYPE 2 DIABETES MELLITUS W DIABETIC MECHANIC AND WELDER 11/26/2017 OLYA WILLIS MD, Ot E11.621 TYPE 2 DIABETES MELLITUS WITH FOOT ULCER 11/26/2017 OLYA WILLIS MD Ot L97.519 NON-PRS CHRONIC ULCER OTH PRT RIGHT FOOT 11/26/2017 OLYA WILLIS MD, Ot N18 .9 CHRONIC KIDNEY DISEASE, UNSPECIFIED 11/26/2017 OLYA WILLIS MD Ot R60 .0 LOCALIZED EDEMA 11/26/2017 CUCO LICEA, PRESTON S Ot D64.9 ANEMIA, UNSPECIFIED 11/26/2017 CUCO LICEA, PRESTON S Ot N19 UNSPECIFIED KIDNEY FAILURE 11/26/2017 CUCO LICEA, MARIBELMED S Ot Z00.00 ENCNTR FOR GENERAL ADULT MEDICAL EXAM W11/26/2017 IRENE BRUCE NP-C Ot D63.1 ANEMIA IN CHRONIC KIDNEY DISEASE 11/26/2017 IRENE BRUCE NP-C Ot N18.4 CHRONIC KIDNEY DISEASE, STAGE 4 (SEVERE) 11/26/2017 OLYA WILLIS MD Ot 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 11/26/2017 OLYA WILLIS MD Ot M79 .9 SOFT TISSUE DISORDER, UNSPECIFIED 11/26/2017 OLYA WILLIS MD Ot R93 .7 ABNORMAL FINDINGS ON DIAGNOSTIC IMAGING 04/06/2018 CUCO LICEA, PRESTON S Ot Z00.00 ENCNTR FOR GENERAL ADULT MEDICAL EXAM W07/12/2018 HADLEY LICEA, NATTY Weinstein Ot D64.9 ANEMIA, UNSPECIFIED 07/12/2018 HADLEY LICEA, NATTY Weinstein Ot E11.22 TYPE 2 DIABETES MELLITUS W DIABETIC MECHANIC AND WELDER 07/12/2018 NATTY BUTCHER MD Ot E78.00 PURE HYPERCHOLESTEROLEMIA, UNSPECIFIED 07/12/2018 NATTY BUTCHER MD Ot F32.9 MAJOR DEPRESSIVE DISORDER, SINGLE EPISOD 07/12/2018 NATTY BUTCHER MD, Ot F41.9 ANXIETY DISORDER, UNSPECIFIED 07/12/2018 NATTY BUTCHER MD Ot I12.0 HYP CHR KIDNEY DISEASE W STAGE 5 CHR KID 07/12/2018 NATTY BUTCHER MD Ot I73.9 PERIPHERAL VASCULAR DISEASE, UNSPECIFIED 07/12/2018 NATTY BUTCHER MD, Ot J18.1 LOBAR PNEUMONIA, UNSPECIFIED ORGANISM 07/12/2018 NATTY BUTCHER MD, Ot J45.909 UNSPECIFIED ASTHMA, UNCOMPLICATED 07/12/2018 NATTY BUTCHER MD, Ot K21.9 GASTRO-ESOPHAGEAL REFLUX DISEASE WITHOUT 07/12/2018 NATTY BUTCHER MD Ot M81.0 AGE-RELATED OSTEOPOROSIS W/O CURRENT PAT 07/12/2018 NATTY BUTCHER MD Ot N18.6 END STAGE RENAL DISEASE 07/12/2018 NATTY BUTCHER MD, Ot R00.1 BRADYCARDIA, UNSPECIFIED 07/12/2018 NATTY BUTCHER MD, Ot R41.82 ALTERED MENTAL STATUS, UNSPECIFIED 07/12/2018 NATTY BUTCHER MD, Ot Z79.02 HALFWAY (CURRENT) USE OF ANTITHROMBOTI 07/12/2018 NATTY BUTCHER MD Ot Z79.4 HALFWAY (CURRENT) USE OF INSULIN 07/12/2018 NATTY BUTCHER MD, Ot Z80.3 FAMILY HISTORY OF MALIGNANT NEOPLASM OF 07/12/2018 NATTY BUTCHER MD, Ot Z82.49 FAMILY HX OF ISCHEM HEART DIS AND OTH DI 07/12/2018 NATTY BUTCHER MD, Ot Z85.820 PERSONAL HISTORY OF MALIGNANT MELANOMA O 07/12/2018 NATTY BUTCHER MD, Ot Z86.73 PRSNL HX OF TIA (TIA), AND CEREB INFRC W 07/12/2018 NATTY BUTCHER MD Ot Z87.448 PERSONAL HISTORY OF OTHER DISEASES OF UR 07/12/2018 HADLEY LICEA, NATTY Weinstein Ot Z87.59 PERSONAL HISTORY OF COMP OF PREG, CHLDBR 07/12/2018 NATTY BUTCHER MD Ot Z87.891 PERSONAL HISTORY OF NICOTINE DEPENDENCE 07/12/2018 NATTY BUTCHER MD, Ot Z88.0 ALLERGY STATUS TO PENICILLIN 07/12/2018 NATTY BUTCHER MD Ot Z88.2 ALLERGY STATUS TO SULFONAMIDES STATUS 07/12/2018 NATTY BUTCHER MD Ot Z88.6 ALLERGY STATUS TO ANALGESIC AGENT STATUS 07/12/2018 NATTY BUTCHER MD, Ot Z88.8 ALLERGY STATUS TO OTH DRUG/MEDS/BIOL SUB 07/12/2018 NATTY BUTCHER MD Ot Z90.49 ACQUIRED ABSENCE OF OTHER SPECIFIED PART 07/12/2018 NATTY BUTCHER MD Ot Z90.710 ACQUIRED ABSENCE OF BOTH CERVIX AND UTER 07/12/2018 NATTY BUTCHER MD Ot Z99.2 DEPENDENCE ON RENAL DIALYSIS 07/14/2018 NATTY BUTCHER MD Ot D64.9 ANEMIA, UNSPECIFIED 07/14/2018 NATTY BUTCHER MD Ot E11.22 TYPE 2 DIABETES MELLITUS W DIABETIC MECHANIC AND WELDER 07/14/2018 NATTY BUTCHER MD Ot E78.00 PURE HYPERCHOLESTEROLEMIA, UNSPECIFIED 07/14/2018 NATTY BUTCHER MD Ot F32.9 MAJOR DEPRESSIVE DISORDER, SINGLE EPISOD 07/14/2018 NATTY BUTCHER MD, Ot F41.9 ANXIETY DISORDER, UNSPECIFIED 07/14/2018 NATTY BUTCHER MD Ot I12.0 HYP CHR KIDNEY DISEASE W STAGE 5 CHR KID 07/14/2018 NATTY BUTCHER MD Ot I73.9 PERIPHERAL VASCULAR DISEASE, UNSPECIFIED 07/14/2018 NATTY BUTCHER MD, Ot J18.1 LOBAR PNEUMONIA, UNSPECIFIED ORGANISM 07/14/2018 NATTY BUTCHER MD Ot J45.909 UNSPECIFIED ASTHMA, UNCOMPLICATED 07/14/2018 NATTY BUTCHER MD Ot K21.9 GASTRO-ESOPHAGEAL REFLUX DISEASE WITHOUT 07/14/2018 NATTY BUTCHRE MD, Ot M81.0 AGE-RELATED OSTEOPOROSIS W/O CURRENT PAT 07/14/2018 NATTY BUTCHER MD, Ot N18.6 END STAGE RENAL DISEASE 07/14/2018 NATTY BUTCHER MD, Ot R00.1 BRADYCARDIA, UNSPECIFIED 07/14/2018 NATTY BUTCHER MD, Ot R41.82 ALTERED MENTAL STATUS, UNSPECIFIED 07/14/2018 NATTY BUTCHER MD, Ot Z79.02 HALFWAY (CURRENT) USE OF ANTITHROMBOTI 07/14/2018 NATTY BUTCHER MD, Ot Z79.4 HALFWAY (CURRENT) USE OF INSULIN 07/14/2018 NATTY BUTCHER MD, Ot Z80.3 FAMILY HISTORY OF MALIGNANT NEOPLASM OF 07/14/2018 NATTY BUTCHER MD, Ot Z82.49 FAMILY HX OF ISCHEM HEART DIS AND OTH DI 07/14/2018 NATTY BUTCHER MD, Ot Z85.820 PERSONAL HISTORY OF MALIGNANT MELANOMA O 07/14/2018 NATTY BUTCHER MD, Ot Z86.73 PRSNL HX OF TIA (TIA), AND CEREB INFRC W 07/14/2018 NATTY BUTCHER MD, Ot Z87.448 PERSONAL HISTORY OF OTHER DISEASES OF UR 07/14/2018 NATTY BUTCHER MD, Ot Z87.59 PERSONAL HISTORY OF COMP OF PREG, CHLDBR 07/14/2018 NATTY BUTCHER MD, Ot Z87.891 PERSONAL HISTORY OF NICOTINE DEPENDENCE 07/14/2018 NATTY BUTCHER MD, Ot Z88.0 ALLERGY STATUS TO PENICILLIN 07/14/2018 NATTY BUTCHER MD, Ot Z88.2 ALLERGY STATUS TO SULFONAMIDES STATUS 07/14/2018 NATTY BUTCHER MD, Ot Z88.6 ALLERGY STATUS TO ANALGESIC AGENT STATUS 07/14/2018 NATTY BUTCHER MD, Ot Z88.8 ALLERGY STATUS TO OTH DRUG/MEDS/BIOL SUB 07/14/2018 NATTY BUTCHER MD, Ot Z90.49 ACQUIRED ABSENCE OF OTHER SPECIFIED PART 07/14/2018 HADLEY LICEA, NATTY Weinstein Ot Z90.710 ACQUIRED ABSENCE OF BOTH CERVIX AND UTER 07/14/2018 HADLEY LICEA, NATTY Weinstein Ot Z99.2 DEPENDENCE ON RENAL DIALYSIS 03/29/2019 SHEA MAYFIELD ASTRONAUTICAL ENGINEER Ot 793.89 OTH (ABN) FINDINGS ON RADIOLOGICAL EXAMI 03/29/2019 SHEA MAYFIELD ASTRONAUTICAL ENGINEER Ot V76.12 OTH SCREEN MAMMO-MALIGN NEOPLASM OF YING 03/29/2019 OREMARGARITA PEREZ DO S Ot 793.89 OTH (ABN) FINDINGS ON RADIOLOGICAL EXAMI 03/29/2019 Ot 250.82 WAYNE B W OTH SPEC MANIFEST, TYPE II OR UNS 03/29/2019 Ot 440.23 ATH EROSCL [place] ARTER EXTREMITIES W ULC 03/29/2019 Ot 707.13 ULC ER OF ANKLE 03/29/2019 Ot 707.14 ULC ER OF HEEL AND MIDFOOT 03/29/2019 Ot 998.83 NON -HEALING SURG WOUND 03/29/2019 Ot V54.19 AFT ERCARE HEALING TRAUMATIC FX OTHER BON 03/29/2019 Ot 996.66 INF EC INFLAM REACT DUE TO INTERNL JOIN 03/29/2019 Ot V43.69 [facility] ER JOINT REPLACEMENT STATUS 03/29/2019 Ot V58.62 ENC OUNT FOR LONG- TERM(CURRENT) USE OF AN 03/29/2019 Ot 996.66 INF EC INFLAM REACT DUE TO INTERNL JOIN 03/29/2019 Ot V43.69 [facility] ER JOINT REPLACEMENT STATUS 03/29/2019 Ot V58.62 ENC OUNT FOR LONG- TERM(CURRENT) USE OF AN 03/29/2019 Ot V58.62 ENC OUNT FOR LONG- TERM(CURRENT) USE OF AN 03/29/2019 Ot V58.83 ENC OUNTER FOR THERAPEUTIC DRUG MONITORIN 03/29/2019 Ot 998.83 NON -HEALING SURG WOUND 03/29/2019 Ot 996.66 INF EC INFLAM REACT DUE TO INTERNL JOIN 03/29/2019 Ot V43.69 OT ER JOINT REPLACEMENT STATUS 03/29/2019 Ot V58.62 ENC OUNT FOR LONG- TERM(CURRENT) USE OF AN 03/29/2019 ALBA LICEA, OLYA Joaquin Ot 276 .7 HYPERPOTASSEMIA 03/29/2019 ALBA LICEA, OLYA Joaquin Ot 276 .7 HYPERPOTASSEMIA 03/29/2019 ALBA LICEA, OLYA Joaquin Ot 276 .7 HYPERPOTASSEMIA 03/29/2019 ALBA LICEA, OLYA Joaquin Ot 250.00 DIAB CHARO WO COMPL, TYPE II OR UNSPEC TY 03/29/2019 ALBA LICEA, OLYA Joaquin Ot 276 .7 HYPERPOTASSEMIA 03/29/2019 ALBA LICEA, OLYA Joaquin Ot 276 .7 HYPERPOTASSEMIA 03/29/2019 ALBA LICEA, OLYA Joaquin Ot 276 .7 HYPERPOTASSEMIA 03/29/2019 ALBA LICEA, OLYA Joaquin Ot 276 .7 HYPERPOTASSEMIA 03/29/2019 ALBA LICEA, OLYA Joaquin Ot 276 .7 HYPERPOTASSEMIA 03/29/2019 ALBA LICEA, OLYA Joaquin Ot 276 .7 HYPERPOTASSEMIA 03/29/2019 ALBA LICEA, OLYA Emani Ot 998.59 OTH POSTOPER INFECTION 03/29/2019 ALBA LICEA, OLYA Joaquin Ot 276 .7 HYPERPOTASSEMIA 03/29/2019 ALBA LICEA, OLYA Joaquin Ot 276 .7 HYPERPOTASSEMIA 03/29/2019 ALBA LICEA, OLYA Joaquin Ot 276 .7 HYPERPOTASSEMIA 03/29/2019 ALBA LICEA, OLYA Joaquin Ot 276 .7 HYPERPOTASSEMIA 03/29/2019 ALBA LICEA, OLYA Joaquin Ot 276 .7 HYPERPOTASSEMIA 03/29/2019 JENN DPM, INA Q Ot L98. 8 OTH DISRD OF THE SKIN AND SUBCUTANEOUS T 03/29/2019 KRIS LICEA, LA NENA Garzon Ot M79.6 71 PAIN IN RIGHT FOOT 03/29/2019 Ot E11.621 TY PE 2 DIABETES MELLITUS WITH FOOT ULCER 03/29/2019 Ot L97.412 NO N-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 03/29/2019 IRENE BRUCE NP-James Ot D64.9 ANEMIA, UNSPECIFIED 03/29/2019 IRENE BRUCE NP-C Ot D72.8 29 ELEVATED WHITE BLOOD CELL COUNT, UNSPECI 03/29/2019 IRENE BRUCE NP-C Ot E11.2 9 TYPE 2 DIABETES MELLITUS W OTH DIABETIC 03/29/2019 IRENE BRUCE NP-C Ot E78.5 HYPERLIPIDEMIA, UNSPECIFIED 03/29/2019 NEW, IRENE Gandara SEGMENT BLOCK LAYER-C Ot E87.5 HYPERKALEMIA 03/29/2019 NEW, IRENE Gandara SEGMENT BLOCK LAYER-C Ot 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, W S 03/29/2019 NEW, IRENE Gandara SEGMENT BLOCK LAYER-C Ot K31.8 4 GASTROPARESIS 03/29/2019 NEW, IRENE Gandara SEGMENT BLOCK LAYER-C Ot N18.4 CHRONIC KIDNEY DISEASE, STAGE 4 (SEVERE) 03/29/2019 NEW, IRENE Gandara SEGMENT BLOCK LAYER-C Ot R80.9 PROTEINURIA, UNSPECIFIED 03/29/2019 ALBA LICEA, OLYA Joaquin Ot I12 .9 HYPERTENSIVE CHRONIC KIDNEY DISEASE W ST 03/29/2019 ALBA LICEA, OLYA Joaquin Ot N18 .3 CHRONIC KIDNEY DISEASE, STAGE 3 (MODERAT 03/29/2019 KRIS LICEA, LA NENA Garzon Ot E87.5 HYPERKALEMIA 03/29/2019 KRIS LICEA, [place] NENA Garzon Ot 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, W S 03/29/2019 KRIS LICEA, [place] NENA Garzon Ot N18.4 CHRONIC KIDNEY DISEASE, STAGE 4 (SEVERE) 03/29/2019 ALBA LICEA, OLYA Joaquin Ot D64 .9 ANEMIA, UNSPECIFIED 03/29/2019 ALBA LICEA, OLYA Joaquin Ot N18 .9 CHRONIC KIDNEY DISEASE, UNSPECIFIED 03/29/2019 CUCO LICEA, PRESTON S Ot D64.9 ANEMIA, UNSPECIFIED 03/29/2019 CUCO LICEA, MARIBELMED S Ot D72.829 ELEVATED WHITE BLOOD CELL COUNT, UNSPECI 03/29/2019 CUCO LICEA, AHMED S Ot E11.22 TYPE 2 DIABETES MELLITUS W DIABETIC MECHANIC AND WELDER 03/29/2019 CUCO LICEA, AHMED S Ot E11.42 TYPE 2 DIABETES MELLITUS WITH DIABETIC P 03/29/2019 CUCO LICEA, AHMED S Ot E55.9 VITAMIN D DEFICIENCY, UNSPECIFIED 03/29/2019 CUCO LICEA, AHMED S Ot E78.5 HYPERLIPIDEMIA, UNSPECIFIED 03/29/2019 CUCO LICEA, MARIBELMED S Ot E87.5 HYPERKALEMIA 03/29/2019 CUCO LICEA, AHMED S Ot 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, W S 03/29/2019 CUCO LICEA, PRESTON Granados Ot K31.84 GASTROPARESIS 03/29/2019 CUCO LICEA, PRESTON Granados Ot N18.4 CHRONIC KIDNEY DISEASE, STAGE 4 (SEVERE) 03/29/2019 CUCO LICEA, PRESTON Granados Ot R80.9 PROTEINURIA, UNSPECIFIED 03/29/2019 CUCO LICEA, PRESTON Granados Ot E87.5 HYPERKALEMIA 03/29/2019 CUCO LICEA, PRESTON Granados Ot I12.9 HYPERTENSIVE CHRONIC KIDNEY DISEASE W ST 03/29/2019 PRESTON NORWOOD MD Ot N18.4 CHRONIC KIDNEY DISEASE, STAGE 4 (SEVERE) 03/29/2019 ESTUARDO RICHARDSON [employer]ING [employer] LEADER Ot E11.621 TYPE 2 DIABETES MELLITUS WITH FOOT ULCER 03/29/2019 ESTUARDO RICHRADSON [employer]ANDSCAPING CREW LEADER Ot L97.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 03/29/2019 PRESTON NORWOOD MD Ot N18.4 CHRONIC KIDNEY DISEASE, STAGE 4 (SEVERE) 03/29/2019 IRENE BRUCE NP-C Ot D63.1 ANEMIA IN CHRONIC KIDNEY DISEASE 03/29/2019 IRENE BRUCE NP-C Ot N18.4 CHRONIC KIDNEY DISEASE, STAGE 4 (SEVERE) 03/29/2019 ESTUARDO RICHARDSON APRN Ot E11.621 TYPE 2 DIABETES MELLITUS WITH FOOT ULCER 03/29/2019 ESTUARDO RICHARDSON APRN Ot L97.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 03/29/2019 URMILA SUTHERLAND MD Ot E78. 5 HYPERLIPIDEMIA, UNSPECIFIED 03/29/2019 URMILA SUTHERLAND MD Ot I11. 0 HYPERTENSIVE HEART DISEASE WITH HEART FA 03/29/2019 URMILA SUTHERLAND MD Ot I51. 7 CARDIOMEGALY 03/29/2019 URMILA SUTHERLAND MD Ot R07. 9 CHEST PAIN, UNSPECIFIED 03/29/2019 URMILA SUTHERLAND MD Ot I13. 0 HYP HRT CHR [facility] DIS W HRT FAIL AND ST 03/29/2019 URMILA SUTHERLAND MD Ot N18. 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, W S 03/29/2019 PRESTON NORWOOD MD, Ot N18.4 CHRONIC KIDNEY DISEASE, STAGE 4 (SEVERE) 03/29/2019 PRESTON NORWOOD MD, Ot N18.4 CHRONIC KIDNEY DISEASE, STAGE 4 (SEVERE) 03/29/2019 PRESTON NORWOOD MD Ot R30.0 DYSURIA 03/29/2019 ESTUARDO RICHARDSON APRN Ot E11.621 TYPE 2 DIABETES MELLITUS WITH FOOT ULCER 03/29/2019 ESTUARDO RICHARDSON APRN Ot L97.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 03/29/2019 PRESTON NORWOOD MD Ot D64.9 ANEMIA, UNSPECIFIED 03/29/2019 PRESTON NORWOOD MD, Ot D72.829 ELEVATED WHITE BLOOD CELL COUNT, UNSPECI 03/29/2019 PRESTON NORWOOD MD Ot E11.42 TYPE 2 DIABETES MELLITUS WITH DIABETIC P 03/29/2019 PRESTON NORWOOD MD Ot E55.9 VITAMIN D DEFICIENCY, UNSPECIFIED 03/29/2019 PRESTON NORWOOD MD, Ot E78.5 HYPERLIPIDEMIA, UNSPECIFIED 03/29/2019 PRESTON NORWOOD MD, Ot E87.5 HYPERKALEMIA 03/29/2019 PRESTON NORWOOD MD Ot E88.09 OTH DISORDERS OF PLASMA-PROTEIN METABOLI 03/29/2019 ABOUL-MAGD MD, AHMED S Ot I12.9 HYPERTENSIVE CHRONIC KIDNEY DISEASE W ST 03/29/2019 CUCO LICEA, PRESTON Granados Ot K31.84 GASTROPARESIS 03/29/2019 CUCO LICEA, PRESTON Granados Ot N18.4 CHRONIC KIDNEY DISEASE, STAGE 4 (SEVERE) 03/29/2019 CUCO LICEA, PRESTON Granados Ot N25.81 SECONDARY HYPERPARATHYROIDISM OF RENAL O 03/29/2019 CUCO LICEA, PRESTON Granados Ot R80.9 PROTEINURIA, UNSPECIFIED 03/29/2019 ESTUARDO RICHARDSON [employer] LEADER Ot E11.621 TYPE 2 DIABETES MELLITUS WITH FOOT ULCER 03/29/2019 ESTUARDO RICHARDSON R LANDSCAPING CREW LEADER Ot I87.312 CHRONIC VENOUS HYPERTENSION W ULCER OF L 03/29/2019 ESTUARDO RICHARDSON LANDSCAPING CREW LEADER Ot L97.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 03/29/2019 ESTUARDO RICHARDSON LANDSCAPING CREW LEADER Ot N18.4 CHRONIC KIDNEY DISEASE, STAGE 4 (SEVERE) 03/29/2019 ESTUARDO RICHARDSON R LANDSCAPING CREW LEADER Ot R60.1 GENERALIZED EDEMA 03/29/2019 ESTUARDO RICHARDSON LANDSCAPING CREW LEADER Ot E11.621 TYPE 2 DIABETES MELLITUS WITH FOOT ULCER 03/29/2019 ESTUARDO RICHARDSON R LANDSCAPING CREW LEADER Ot L97.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 03/29/2019 ESTUARDO RICHARDSON R LANDSCAPING CREW LEADER Ot N18.4 CHRONIC KIDNEY DISEASE, STAGE 4 (SEVERE) 03/29/2019 ESTUARDO RICHARDSON R LANDSCAPING CREW LEADER Ot R60.1 GENERALIZED EDEMA 03/29/2019 Ot D64.9 ANEM IA, UNSPECIFIED 03/29/2019 Ot 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 MECHANIC AND WELDER 03/29/2019 Ot N18.4 MECHANIC AND WELDER ERNESTO KIDNEY DISEASE, STAGE 4 (SEVERE) 03/29/2019 ESTUARDO RICHARDSON R LANDSCAPING CREW LEADER Ot L97.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 03/29/2019 IRENE BRUCE NP-C Ot D64.9 ANEMIA, UNSPECIFIED 03/29/2019 IRENE BRUCE NP-C Ot E11.2 9 TYPE 2 DIABETES MELLITUS W OTH DIABETIC 03/29/2019 IRENE BRUCE NP-C Ot E11.4 0 TYPE 2 DIABETES MELLITUS WITH DIABETIC N 03/29/2019 IRENE BRUCE NP-C Ot E55.9 VITAMIN D DEFICIENCY, UNSPECIFIED 03/29/2019 IRENE BRUCE HarryLino POLLACK-C Ot E78.5 HYPERLIPIDEMIA, UNSPECIFIED 03/29/2019 IRENE BRUCE HarryLino POLLACK-C Ot E87.5 HYPERKALEMIA 03/29/2019 IRENE BRUCE HarryLino POLLACK-C Ot 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, W S 03/29/2019 IRENE RBUCE NP-C Ot K31.8 4 GASTROPARESIS 03/29/2019 IRENE BRUCE HarryLino SEGMENT BLOCK LAYER-C Ot N18.4 CHRONIC KIDNEY DISEASE, STAGE 4 (SEVERE) 03/29/2019 IRENE BRUCE NP-C Ot N25.8 1 SECONDARY HYPERPARATHYROIDISM OF RENAL O 03/29/2019 IRENE BRUCE HarryLino POLLACK-C Ot R80.8 OTHER PROTEINURIA 03/29/2019 OLYA WILLIS MD Ot 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 03/29/2019 OLYA WILLIS MD Ot M79 .9 SOFT TISSUE DISORDER, UNSPECIFIED 03/29/2019 OLYA WILLIS MD Ot R93 .7 ABNORMAL FINDINGS ON DIAGNOSTIC IMAGING 03/29/2019 OLYA WILLIS MD Ot E11.22 TYPE 2 DIABETES MELLITUS W DIABETIC MECHANIC AND WELDER 03/29/2019 OLYA WILLIS MD Ot E11.621 TYPE 2 DIABETES MELLITUS WITH FOOT ULCER 03/29/2019 OLYA WILLIS MD Ot L97.519 NON-PRS CHRONIC ULCER OTH PRT RIGHT FOOT 03/29/2019 OLYA WILLIS MD Ot N18 .9 CHRONIC KIDNEY DISEASE, UNSPECIFIED 03/29/2019 OLYA WILLIS MD Ot R60 .0 LOCALIZED EDEMA 03/29/2019 CUCO LICEA, PRESTON S Ot D64.9 ANEMIA, UNSPECIFIED 03/29/2019 CUCO LICEA, MARIBELMED S Ot N19 UNSPECIFIED KIDNEY FAILURE 03/29/2019 CUCO LICEA, PRESTON S Ot Z00.00 ENCNTR FOR GENERAL ADULT MEDICAL EXAM W/ 03/29/2019 IRENE BRUCE NP-C Ot D63.1 ANEMIA IN CHRONIC KIDNEY DISEASE 03/29/2019 NEW, IRENE G. SEGMENT BLOCK LAYER-C Ot N18.4 CHRONIC KIDNEY DISEASE, STAGE 4 (SEVERE) 04/05/2019 SERGIO HANCOCK Corinna LOO Ot E11.42 TYPE 2 DIABETES MELLITUS WITH DIABETIC P 05/09/2019 SERGIO HANCOCK Corinna LOO Ot E11.42 TYPE 2 DIABETES MELLITUS WITH DIABETIC P 06/26/2019 SERGIO HANCOCK Corinna LOO Ot E11.42 TYPE 2 DIABETES MELLITUS WITH DIABETIC P 06/30/2019 SERGIO HANCOCK Corinna LOO Ot E11.42 TYPE 2 DIABETES MELLITUS WITH DIABETIC P 07/06/2019 SERGIO HANCOCK Corinna LOO Ot E11.42 TYPE 2 DIABETES MELLITUS WITH DIABETIC P 08/02/2019 SERGIO HANCOCK Corinna LOO Ot E11.42 TYPE 2 DIABETES MELLITUS WITH DIABETIC P Procedures Code Description Performed By Per prashant On 81.81 12/24/2010 31214 AMERITOX 04/07/2014 79.36 OP R ED-INT FIX TIB/FIBUL 04/12/2014 36337 A1C (IN-HOUSE) 04/24/2014 79.36 OP R ED-INT FIX TIB/FIBUL 05/05/2014 10916 A1C (IN-HOUSE) 08/23/2014 71751 A1C (IN-HOUSE) 01/14/2015 Results Test Result Range Complete blood count (CBC) with automate d white blood cell (WBC) differential - 06/01/16 09:50 Blood leukocytes automated count (number/volume) 9.2 10*3/uL 4.3-11.0 Blood erythrocytes automated count (number/volume) 3.27 10*6/uL 4.35-5.85 Venous blood hemoglobin measurement (mass/volume) 9.0 g/dL 11.5-16.0 Blood hematocrit (volume fraction) 29 % 35-52 Automated erythrocyte mean corpuscular volume 89 [ foz_us] 80-99 Automated erythrocyte mean corpuscular h emoglobin (mass per erythrocyte) 28 pg 25-34 Automated erythrocyte mean corpuscular h emoglobin concentration measurement (mass/volume) 31 g/dL 32-36 Automated erythrocyte distribution width ratio 17. 7 % 10.0- 14.5 Automated blood platelet count (count/volume) 235 10*3/uL 130-400 Automated blood platelet mean volume measurement 9.8 [foz_us] 7.4-10.4 Automated blood neutrophils/100 leukocytes 67 % 42-75 Automated blood lymphocytes/100 leukocytes 19 % 12-44 Blood monocytes/100 leukocytes 9 % 0-12 Automated blood eosinophils/100 leukocytes 4 % 0-10 Automated blood basophils/100 leukocytes 0 % 0-10 Blood neutrophils automated count (number/volume) 6.2 10*3 1.8-7.8 Blood lymphocytes automated count (number/volume) 1.8 10*3 1.0-4.0 Blood monocytes automated count (number/volume) 0. 8 10*3 0.0-1.0 Automated eosinophil count 0.4 10*3/uL 0 .0-0.3 Automated blood basophil count (count/volume) 0.0 10*3/uL 0.0-0.1 Whole blood basic metabolic panel - 06/09 09:50 Serum or plasma sodium measurement (moles/volume) 141 mmol/L 135-145 Serum or plasma potassium measurement (moles/volume) 4.7 mmol/L 3.6-5.0 Serum or plasma chloride measurement (moles/volume) 108 mmol/L 98-107 Carbon dioxide 28 mmol/L 21-32 Serum or plasma anion gap determination (moles/volume) 5 mmol/L 5-14 Serum or plasma urea nitrogen measurement (mass/volume ) 34 mg/dL 7-18 Serum or plasma creatinine measurement (mass/volume) 1.94 mg/dL 0.60-1.30 Serum or plasma urea nitrogen/creatinine mass ratio 18 NRG Serum or plasma creatinine measurement w ith calculation of estimated glomerular filtration rate 26 NRG Serum or plasma glucose measurement (mass/volume) 93 mg/dL 70-105 Serum or plasma calcium measurement (mass/volume) 8.4 mg/dL 8.5-10.1 Complete blood count (CBC) with automate d white blood cell (WBC) differential - 06/08/16 10:10 Blood leukocytes automated count (number/volume) 9.6 10*3/uL 4.3-11.0 Blood erythrocytes automated count (number/volume) 3.26 10*6/uL 4.35-5.85 Venous blood hemoglobin measurement (mass/volume) 8.9 g/dL 11.5-16.0 Blood hematocrit (volume fraction) 28 % 35-52 Automated erythrocyte mean corpuscular volume 87 [ foz_us] 80-99 Automated erythrocyte mean corpuscular h emoglobin (mass per erythrocyte) 27 pg 25-34 Automated erythrocyte mean corpuscular h emoglobin concentration measurement (mass/volume) 32 g/dL 32-36 Automated erythrocyte distribution width ratio 17. 0 % 10.0- 14.5 Automated blood platelet count (count/volume) 283 10*3/uL 130-400 Automated blood platelet mean volume measurement 9.7 [foz_us] 7.4-10.4 Automated blood neutrophils/100 leukocytes 72 % 42-75 Automated blood lymphocytes/100 leukocytes 19 % 12-44 Blood monocytes/100 leukocytes 7 % 0-12 Automated blood eosinophils/100 leukocytes 1 % 0-10 Automated blood basophils/100 leukocytes 0 % 0-10 Blood neutrophils automated count (number/volume) 6.9 10*3 1.8-7.8 Blood lymphocytes automated count (number/volume) 1.9 10*3 1.0-4.0 Blood monocytes automated count (number/volume) 0. 7 10*3 0.0-1.0 Automated eosinophil count 0.1 10*3/uL 0 .0-0.3 Automated blood basophil count (count/volume) 0.0 10*3/uL 0.0-0.1 Complete urinalysis with reflex to cultu re - 06/08/16 10:10 Urine color determination YELLOW NRG Urine clarity determination CLEAR NR G Urine pH measurement by test strip 5 5-9 Specific gravity of urine by test strip 1.015 1.016-1.022 Urine protein assay by test strip, semi-quantitative 3+ NEGATIVE Urine glucose detection by automated test strip NE GATIVE NEGATIVE Erythrocytes detection in urine sediment by light micr oscopy 1+ NEGATIVE Urine ketones detection by automated test strip NE GATIVE NEGATIVE Urine nitrite detection by test strip NEGATIVE NEGATIVE Urine total bilirubin detection by test strip NEGA TIVE NEGATIVE Urine urobilinogen measurement by automated test strip (mass/volume) NORMAL NORMAL Urine leukocyte esterase detection by dipstick NEG ATIVE NEGATIVE Automated urine sediment erythrocyte cou nt by microscopy (number/high power field) [HPF] NRG Automated urine sediment leukocyte count by microscopy (number/high power field) [HPF] NRG Bacteria detection in urine sediment by light microsco py NEGATIVE NRG Squamous epithelial cells detection in u rine sediment by light microscopy 5-10 NRG Crystals detection in urine sediment by light microsco py NONE NRG Casts detection in urine sediment by light microscopy PRESENT NRG Mucus detection in urine sediment by light microscopy NEGATIVE NRG Complete urinalysis with reflex to culture NO NRG Hyaline casts detection in urine sediment by light hung roscopy RARE NRG Serum or plasma renal function panel (Na , K, Cl, CO2, BUN, Cr, glucose,Ca, phos, alb) - 06/08/16 10:10 Serum or plasma sodium measurement (moles/volume) 138 mmol/L 135-145 Serum or plasma potassium measurement (moles/volume) 5.0 mmol/L 3.6-5.0 Serum or plasma chloride measurement (moles/volume) 104 mmol/L 98-107 Carbon dioxide 26 mmol/L 21-32 Serum or plasma anion gap determination (moles/volume) 8 mmol/L 5-14 Serum or plasma urea nitrogen measurement (mass/volume ) 42 mg/dL 7-18 Serum or plasma creatinine measurement (mass/volume) 3.15 mg/dL 0.60-1.30 Serum or plasma urea nitrogen/creatinine mass ratio 13 NRG Serum or plasma creatinine measurement w ith calculation of estimated glomerular filtration rate 15 NRG Serum or plasma glucose measurement (mass/volume) 76 mg/dL 70-105 Serum or plasma calcium measurement (mass/volume) 8.8 mg/dL 8.5-10.1 Serum or plasma albumin measurement (mass/volume) 3.2 g/dL 3.2-4.5 Serum or plasma phosphate measurement (mass/volume) 4.5 mg/dL 2.3-4.7 Lipid 1996 panel - 06/08/16 10:10 Serum or plasma triglyceride measurement (mass/volume) 99 mg/dL <150 Serum or plasma cholesterol measurement (mass/volume) 179 mg/dL < 200 Serum or plasma cholesterol in HDL measurement (mass/v olume) 40 mg/dL 40-60 Cholesterol in LDL [mass/volume] in serum or plasma by direct assay 117 mg/dL 1-129 Serum or plasma cholesterol in VLDL measurement (mass/ volume) 20 mg/dL 5-40 Urine protein/creatinine mass ratio - 10:10 Urine protein measurement (mass/volume) 164 mg/dL 6-12 Urine creatinine measurement (mass/volume) 67 mg/d L 30-125 Urine protein/creatinine mass ratio 2.45 NRG Hemoglobin A1c - 06/08/16 10:10 Hemoglobin A1c 5.2 % 4.5-6.2 Serum iron and total iron binding capaci ty panel - 06/08/16 10:10 Serum or plasma iron measurement (mass/volume) 20 % 35-180 Total iron binding capacity and transferrin saturation measurement 10 % 15-50 Iron binding capacity [mass/volume] in serum or plasma 204 % 280-380 UIBC (unsaturated iron binding capacity) 184 % 55-450 Serum or plasma ferritin measurement (mass/volume) 214 % 15- 150 Serum or plasma intact pararthyroid horm one measurement (mass/volume) - 06/08/16 10:10 Serum or plasma intact parathyroid hormone measurement (mass/volume) 266 pg/mL 10-65 Bio-intact parathyroid hormone (PTH) measurement with calcium 8.4 % 8.5-10.5 25-hydroxyvitamin D measurement - 10:10 25-hydroxy vitamin D measurement 33 % 30-100 Whole blood hemoglobin and hematocrit pa jaquelin - 07/10/16 13:45 Venous blood hemoglobin measurement (mass/volume) 9.6 g/dL 11.5-16.0 Blood hematocrit (volume fraction) 30 % 35-52 Serum or plasma renal function panel (Na , K, Cl, CO2, BUN, Cr, glucose,Ca, phos, alb) - 07/10/16 13:45 Serum or plasma sodium measurement (moles/volume) 139 mmol/L 135-145 Serum or plasma potassium measurement (moles/volume) 4.7 mmol/L 3.6-5.0 Serum or plasma chloride measurement (moles/volume) 104 mmol/L 98-107 Carbon dioxide 26 mmol/L 21-32 Serum or plasma anion gap determination (moles/volume) 9 mmol/L 5-14 Serum or plasma urea nitrogen measurement (mass/volume ) 40 mg/dL 7-18 Serum or plasma creatinine measurement (mass/volume) 2.41 mg/dL 0.60-1.30 Serum or plasma urea nitrogen/creatinine mass ratio 17 NRG Serum or plasma creatinine measurement w ith calculation of estimated glomerular filtration rate 20 NRG Serum or plasma glucose measurement (mass/volume) 123 mg/dL 70-105 Serum or plasma calcium measurement (mass/volume) 9.0 mg/dL 8.5-10.1 Serum or plasma albumin measurement (mass/volume) 3.4 g/dL 3.2-4.5 Serum or plasma phosphate measurement (mass/volume) 4.4 mg/dL 2.3-4.7 Serum iron and total iron binding capaci ty panel - 07/10/16 13:45 Serum or plasma iron measurement (mass/volume) 43 % 35-180 Total iron binding capacity and transferrin saturation measurement 20 % 15-50 Iron binding capacity [mass/volume] in serum or plasma 220 % 280-380 UIBC (unsaturated iron binding capacity) 177 % 55-450 Serum or plasma ferritin measurement (mass/volume) 147 % 15- 150 Whole blood hemoglobin and hematocrit pa jaquelin - 08/10/16 13:00 Venous blood hemoglobin measurement (mass/volume) 11.3 g/dL 11.5-16.0 Blood hematocrit (volume fraction) 36 % 35-52 Urine protein/creatinine mass ratio - 11:38 Urine protein measurement (mass/volume) 785 mg/dL 6-12 Urine creatinine measurement (mass/volume) 64 mg/d L 30-125 Urine protein/creatinine mass ratio 12.27 NRG Bacteria identification in isolate by an aerobe culture - 08/25/16 14:53 Bacteria identification in isolate by anaerobe culture NOANA NRG Gram stain microscopy - 08/25/16 14:53 GRAM STAIN RESULT FEW WBC'S, NO BACTERIA OBSERVED NRG Bacteria identification in wound by cult ure - 08/25/16 14:53 Bacteria identification in wound by culture [id number] NR FREE TEXT EXTERNAL SENSITIVITY REPORTED AT 0920, 1 16 NRG QUANTITY OF GROWTH Scant Growth NRG MRSA AGAR Screening test for MRSA is N EGATIVE (Final to follow) NR Bacterial susceptibility panel - 6 14:53 Oxacillin susceptibility test by minimum inhibitory co ncentration 0.5 NRG Gentamicin susceptibility test by minimum inhibitory c oncentration <= NRG Clindamycin susceptibility test by minimum inhibitory concentration <= NRG Erythromycin susceptibility test by minimum inhibitory concentration <= NRG Trimethoprim/sulfamethoxazole susceptibi lity test by minimum inhibitoryconcentration <= NRG Vancomycin susceptibility test by minimum inhibitory c oncentration <= NRG Levofloxacin susceptibility test by minimum inhibitory concentration 0.25 NRG Rifampin susceptibility test by minimum inhibitory con centration <= NRG Tetracycline susceptibility test by minimum inhibitory concentration <= NRG Serum or plasma renal function panel (Na , K, Cl, CO2, BUN, Cr, glucose,Ca, phos, alb) - 09/28/16 13:28 Serum or plasma sodium measurement (moles/volume) 139 mmol/L 135-145 Serum or plasma potassium measurement (moles/volume) 4.7 mmol/L 3.6-5.0 Serum or plasma chloride measurement (moles/volume) 106 mmol/L 98-107 Carbon dioxide 23 mmol/L 21-32 Serum or plasma anion gap determination (moles/volume) 10 mmol/L 5-14 Serum or plasma urea nitrogen measurement (mass/volume ) 43 mg/dL 7-18 Serum or plasma creatinine measurement (mass/volume) 3.03 mg/dL 0.60-1.30 Serum or plasma urea nitrogen/creatinine mass ratio 14 NRG Serum or plasma creatinine measurement w ith calculation of estimated glomerular filtration rate 15 NRG Serum or plasma glucose measurement (mass/volume) 159 mg/dL 70-105 Serum or plasma calcium measurement (mass/volume) 8.6 mg/dL 8.5-10.1 Serum or plasma albumin measurement (mass/volume) 2.6 g/dL 3.2-4.5 Serum or plasma phosphate measurement (mass/volume) 3.9 mg/dL 2.3-4.7 Bacteria identification in isolate by an aerobe culture - 10/13/16 15:07 Bacteria identification in isolate by anaerobe culture NOANA NR Gram stain microscopy - 10/13/16 15:07 GRAM STAIN RESULT NO BACTERIA NRG Bacteria identification in wound by cult ure - 10/13/16 15:07 Bacteria identification in wound by culture [id number] [facility] FREE TEXT EXTERNAL SENSITIVITY REPORTED AT 0946, 1 12-16-15 NR QUANTITY OF GROWTH Scant Growth NRG MRSA AGAR Screening test for MRSA is N EGATIVE (Final to follow) NR Bacterial susceptibility panel - 6 15:07 Oxacillin susceptibility test by minimum inhibitory co ncentration 0.5 NRG Gentamicin susceptibility test by minimum inhibitory c oncentration <= NRG Clindamycin susceptibility test by minimum inhibitory concentration <= NRG Erythromycin susceptibility test by minimum inhibitory concentration <= NRG Trimethoprim/sulfamethoxazole susceptibi lity test by minimum inhibitoryconcentration <= NRG Vancomycin susceptibility test by minimum inhibitory c oncentration <= NRG Levofloxacin susceptibility test by minimum inhibitory concentration <= NRG Rifampin susceptibility test by minimum inhibitory con centration <= NRG Tetracycline susceptibility test by minimum inhibitory concentration <= NRG Automated blood complete blood count (he mogram) panel - 11/11/16 11:21 Blood leukocytes automated count (number/volume) 8.3 10*3/uL 4.3-11.0 Blood erythrocytes automated count (number/volume) 3.58 10*6/uL 4.35-5.85 Venous blood hemoglobin measurement (mass/volume) 9.7 g/dL 11.5-16.0 Blood hematocrit (volume fraction) 30 % 35-52 Automated erythrocyte mean corpuscular volume 84 [ foz_us] 80-99 Automated erythrocyte mean corpuscular h emoglobin (mass per erythrocyte) 27 pg 25-34 Automated erythrocyte mean corpuscular h emoglobin concentration measurement (mass/volume) 32 g/dL 32-36 Automated erythrocyte distribution width ratio 17. 3 % 10.0- 14.5 Automated blood platelet count (count/volume) 236 10*3/uL 130-400 Automated blood platelet mean volume measurement 10.1 [foz_us] 7.4-10.4 Comprehensive metabolic panel - 11/11/16 11:21 Serum or plasma sodium measurement (moles/volume) 140 mmol/L 135-145 Serum or plasma potassium measurement (moles/volume) 4.9 mmol/L 3.6-5.0 Serum or plasma chloride measurement (moles/volume) 108 mmol/L 98-107 Carbon dioxide 22 mmol/L 21-32 Serum or plasma anion gap determination (moles/volume) 10 mmol/L 5-14 Serum or plasma urea nitrogen measurement (mass/volume ) 54 mg/dL 7-18 Serum or plasma creatinine measurement (mass/volume) 2.90 mg/dL 0.60-1.30 Serum or plasma urea nitrogen/creatinine mass ratio 19 NRG Serum or plasma creatinine measurement w ith calculation of estimated glomerular filtration rate 16 NRG Serum or plasma glucose measurement (mass/volume) 97 mg/dL 70-105 Serum or plasma calcium measurement (mass/volume) 8.7 mg/dL 8.5-10.1 Serum or plasma total bilirubin measurement (mass/volu me) 0.3 mg/dL 0.1-1.0 Serum or plasma alkaline phosphatase tasneem surement (enzymatic activity/volume) 80 U/L 40-136 Serum or plasma aspartate aminotransfera se measurement (enzymatic activity/volume) 13 U/L 5-34 Serum or plasma alanine aminotransferase measurement (enzymatic activity/volume) 11 U/L 0-55 Serum or plasma protein measurement (mass/volume) 5.7 g/dL 6.4-8.2 Serum or plasma albumin measurement (mass/volume) 2.7 g/dL 3.2-4.5 Lipid 1996 panel - 11/11/16 11:21 Serum or plasma triglyceride measurement (mass/volume) 115 mg/dL <150 Serum or plasma cholesterol measurement (mass/volume) 206 mg/dL < 200 Serum or plasma cholesterol in HDL measurement (mass/v olume) 45 mg/dL 40-60 Cholesterol in LDL [mass/volume] in serum or plasma by direct assay 134 mg/dL 1-129 Serum or plasma cholesterol in VLDL measurement (mass/ volume) 23 mg/dL 5-40 PT panel in platelet poor plasma by coag ulation assay - 11/11/16 11:21 Prothrombin time (PT) in platelet poor plasma by coagu lation assay 13.4 s 12.2-14.7 INR in platelet poor plasma or blood by coagulation as say 1.1 0.8-1.4 Activated partial thromboplastin time (a PTT) in platelet poor plasma bycoagulation assay - 11/11/16 11:21 Activated partial thromboplastin time (a PTT) in platelet poor plasma bycoagulation assay 37 s 24-35 Methicillin resistant Staphylococcus aur eus (MRSA) screening culture - 11/11/16 11:21 Methicillin resistant Staphylococcus aureus (MRSA) scr eening culture NEG NRG Capillary blood glucose measurement by g lucometer (mass/volume) - 11/11/16 20:35 Capillary blood glucose measurement by glucometer (mas s/volume) 170 mg/dL 70-110 Whole blood basic metabolic panel - 10/25 07/11 07:05 Serum or plasma sodium measurement (moles/volume) 142 mmol/L 135-145 Serum or plasma potassium measurement (moles/volume) 4.6 mmol/L 3.6-5.0 Serum or plasma chloride measurement (moles/volume) 111 mmol/L 98-107 Carbon dioxide 22 mmol/L 21-32 Serum or plasma anion gap determination (moles/volume) 9 mmol/L 5-14 Serum or plasma urea nitrogen measurement (mass/volume ) 54 mg/dL 7-18 Serum or plasma creatinine measurement (mass/volume) 2.98 mg/dL 0.60-1.30 Serum or plasma urea nitrogen/creatinine mass ratio 18 NRG Serum or plasma creatinine measurement w ith calculation of estimated glomerular filtration rate 16 NRG Serum or plasma glucose measurement (mass/volume) 79 mg/dL 70-105 Serum or plasma calcium measurement (mass/volume) 7.8 mg/dL 8.5-10.1 Capillary blood glucose measurement by g lucometer (mass/volume) - 11/12/16 20:46 Capillary blood glucose measurement by glucometer (mas s/volume) 148 mg/dL 70-110 Whole blood basic metabolic panel - 10/26 04:20 Serum or plasma sodium measurement (moles/volume) 139 mmol/L 135-145 Serum or plasma potassium measurement (moles/volume) 4.7 mmol/L 3.6-5.0 Serum or plasma chloride measurement (moles/volume) 112 mmol/L 98-107 Carbon dioxide 19 mmol/L 21-32 Serum or plasma anion gap determination (moles/volume) 8 mmol/L 5-14 Serum or plasma urea nitrogen measurement (mass/volume ) 48 mg/dL 7-18 Serum or plasma creatinine measurement (mass/volume) 2.58 mg/dL 0.60-1.30 Serum or plasma urea nitrogen/creatinine mass ratio 19 NRG Serum or plasma creatinine measurement w ith calculation of estimated glomerular filtration rate 18 NRG Serum or plasma glucose measurement (mass/volume) 90 mg/dL 70-105 Serum or plasma calcium measurement (mass/volume) 7.5 mg/dL 8.5-10.1 Automated blood complete blood count (he mogram) panel - 11/13/16 04:20 Blood leukocytes automated count (number/volume) 8.0 10*3/uL 4.3-11.0 Blood erythrocytes automated count (number/volume) 3.06 10*6/uL 4.35-5.85 Venous blood hemoglobin measurement (mass/volume) 8.4 g/dL 11.5-16.0 Blood hematocrit (volume fraction) 27 % 35-52 Automated erythrocyte mean corpuscular volume 87 [ foz_us] 80-99 Automated erythrocyte mean corpuscular h emoglobin (mass per erythrocyte) 28 pg 25-34 Automated erythrocyte mean corpuscular h emoglobin concentration measurement (mass/volume) 32 g/dL 32-36 Automated erythrocyte distribution width ratio 17. 6 % 10.0- 14.5 Automated blood platelet count (count/volume) 182 10*3/uL 130-400 Automated blood platelet mean volume measurement 10.7 [foz_us] 7.4-10.4 PT panel in platelet poor plasma by coag ulation assay - 11/13/16 11:35 Prothrombin time (PT) in platelet poor plasma by coagu lation assay 13.9 s 12.2-14.7 INR in platelet poor plasma or blood by coagulation as say 1.1 0.8-1.4 Activated partial thromboplastin time (a PTT) in platelet poor plasma bycoagulation assay - 11/13/16 11:35 Activated partial thromboplastin time (a PTT) in platelet poor plasma bycoagulation assay 37 s 24-35 ANEMIA ANALYZER - 11/13/16 12:20 Blood leukocytes automated count (number/volume) 7.9 10*3/uL 4.3-11.0 Blood erythrocytes automated count (number/volume) 3.41 10*6/uL 4.35-5.85 Venous blood hemoglobin measurement (mass/volume) 9.3 g/dL 11.5-16.0 Blood hematocrit (volume fraction) 29 % 35-52 Automated erythrocyte mean corpuscular volume 86 [ foz_us] 80-99 Automated erythrocyte mean corpuscular h emoglobin (mass per erythrocyte) 27 pg 25-34 Automated erythrocyte mean corpuscular h emoglobin concentration measurement (mass/volume) 32 g/dL 32-36 Automated erythrocyte distribution width ratio 17. 4 % 10.0- 14.5 Automated blood platelet count (count/volume) 185 10*3/uL 130-400 Automated blood platelet mean volume measurement 9.8 [foz_us] 7.4-10.4 Automated blood neutrophils/100 leukocytes 65 % 42-75 Automated blood lymphocytes/100 leukocytes 23 % 12-44 Blood monocytes/100 leukocytes 10 % NRG Automated blood eosinophils/100 leukocytes 3 % 0-10 Automated blood basophils/100 leukocytes 0 % 0-10 Blood neutrophils automated count (number/volume) 5.1 10*3 1.8-7.8 Blood lymphocytes automated count (number/volume) 1.9 10*3 1.0-4.0 Blood monocytes automated count (number/volume) 0. 7 10*3 0.0-1.0 Automated eosinophil count 0.2 10*3/uL 0 .0-0.3 Automated blood basophil count (count/volume) 0.0 10*3/uL 0.0-0.1 Manual blood segmented neutrophils/100 leukocytes 60 % NRG Blood band neutrophils/100 leukocytes 0 % NRG Manual blood lymphocytes/100 leukocytes 27 % NRG Manual eosinophils/100 leukocytes in nose 1 % NRG Manual blood basophils/100 leukocytes 1 % NRG Blood lymphocytes variant/100 leukocytes 1 % NRG Blood anisocytosis detection by light microscopy S LIGHT NRG Blood reticulocytes count (number/volume) 45 10*9/ L 24-90 Blood reticulocytes/100 erythrocytes 1.32 % 0.50-2.40 RED CELLS LEUKO REDUCED AS1 - 11/13/16 1 2:20 RED CELLS LEUKO REDUCED AS1 T RANSFUSED 11/13/16 1403 NRG Blood type T Indirect antibody screen pa jaquelin - 11/13/16 12:20 ABO+Rh group OP NRG Transfusion band number [id number] NRG Blood group antibody screen NEGATIVE NR G Serum or plasma folate measurement (mass /volume) - 11/13/16 12:20 Serum or plasma folate measurement (mass/volume) > ng/mL 1.5-24.0 Serum iron and total iron binding capaci ty panel - 11/13/16 12:20 Serum or plasma iron measurement (mass/volume) 48 ug/dL 35- 180 Total iron binding capacity and transferrin saturation measurement 34 % 15-50 Iron binding capacity [mass/volume] in serum or plasma 143 L 280-380 UIBC (unsaturated iron binding capacity) 95 ug/dL 55-450 Cyanocobalamin measurement - 11/13/16 12 :20 Vitamin B12 462 pg/mL 200-1000 Immature platelet percentage - 11/13/16 12:20 Immature platelet percentage 3.5 % 0 .0-7.2 Capillary blood glucose measurement by g lucometer (mass/volume) - 11/13/16 20:36 Capillary blood glucose measurement by glucometer (mas s/volume) 121 mg/dL 70-110 Automated blood complete blood count (he mogram) panel - 11/14/16 04:00 Blood leukocytes automated count (number/volume) 8.2 10*3/uL 4.3-11.0 Blood erythrocytes automated count (number/volume) 3.46 10*6/uL 4.35-5.85 Venous blood hemoglobin measurement (mass/volume) 9.5 g/dL 11.5-16.0 Blood hematocrit (volume fraction) 29 % 35-52 Automated erythrocyte mean corpuscular volume 85 [ foz_us] 80-99 Automated erythrocyte mean corpuscular h emoglobin (mass per erythrocyte) 28 pg 25-34 Automated erythrocyte mean corpuscular h emoglobin concentration measurement (mass/volume) 32 g/dL 32-36 Automated erythrocyte distribution width ratio 16. 8 % 10.0- 14.5 Automated blood platelet count (count/volume) 175 10*3/uL 130-400 Automated blood platelet mean volume measurement 10.4 [foz_us] 7.4-10.4 Whole blood basic metabolic panel - 10/26 11/10 04:00 Serum or plasma sodium measurement (moles/volume) 139 mmol/L 135-145 Serum or plasma potassium measurement (moles/volume) 4.4 mmol/L 3.6-5.0 Serum or plasma chloride measurement (moles/volume) 114 mmol/L 98-107 Carbon dioxide 18 mmol/L 21-32 Serum or plasma anion gap determination (moles/volume) 7 mmol/L 5-14 Serum or plasma urea nitrogen measurement (mass/volume ) 44 mg/dL 7-18 Serum or plasma creatinine measurement (mass/volume) 2.51 mg/dL 0.60-1.30 Serum or plasma urea nitrogen/creatinine mass ratio 18 NRG Serum or plasma creatinine measurement w ith calculation of estimated glomerular filtration rate 19 NRG Serum or plasma glucose measurement (mass/volume) 132 mg/dL 70-105 Serum or plasma calcium measurement (mass/volume) 7.6 mg/dL 8.5-10.1 Capillary blood glucose measurement by g lucometer (mass/volume) - 11/14/16 20:33 Capillary blood glucose measurement by glucometer (mas s/volume) 133 mg/dL 70-110 Automated blood complete blood count (he mogram) panel - 11/15/16 04:30 Blood leukocytes automated count (number/volume) 9.2 10*3/uL 4.3-11.0 Blood erythrocytes automated count (number/volume) 3.77 10*6/uL 4.35-5.85 Venous blood hemoglobin measurement (mass/volume) 10.5 g/dL 11.5-16.0 Blood hematocrit (volume fraction) 32 % 35-52 Automated erythrocyte mean corpuscular volume 85 [ foz_us] 80-99 Automated erythrocyte mean corpuscular h emoglobin (mass per erythrocyte) 28 pg 25-34 Automated erythrocyte mean corpuscular h emoglobin concentration measurement (mass/volume) 33 g/dL 32-36 Automated erythrocyte distribution width ratio 16. 6 % 10.0- 14.5 Automated blood platelet count (count/volume) 185 10*3/uL 130-400 Automated blood platelet mean volume measurement 9.8 [foz_us] 7.4-10.4 Whole blood basic metabolic panel - 10/26 12/11 04:30 Serum or plasma sodium measurement (moles/volume) 140 mmol/L 135-145 Serum or plasma potassium measurement (moles/volume) 5.2 mmol/L 3.6-5.0 Serum or plasma chloride measurement (moles/volume) 114 mmol/L 98-107 Carbon dioxide 17 mmol/L 21-32 Serum or plasma anion gap determination (moles/volume) 9 mmol/L 5-14 Serum or plasma urea nitrogen measurement (mass/volume ) 44 mg/dL 7-18 Serum or plasma creatinine measurement (mass/volume) 2.41 mg/dL 0.60-1.30 Serum or plasma urea nitrogen/creatinine mass ratio 18 NRG Serum or plasma creatinine measurement w ith calculation of estimated glomerular filtration rate 20 NRG Serum or plasma glucose measurement (mass/volume) 85 mg/dL 70-105 Serum or plasma calcium measurement (mass/volume) 7.5 mg/dL 8.5-10.1 Capillary blood glucose measurement by g lucometer (mass/volume) - 11/15/16 10:36 Capillary blood glucose measurement by glucometer (mas s/volume) 61 mg/dL 70-110 Bacteria identification in isolate by an aerobe culture - 11/24/16 13:24 Bacteria identification in isolate by anaerobe culture NOANA NRG Gram stain microscopy - 11/24/16 13:24 Gram stain microscopy Single brian which stain ed gram negative NRG Bacteria identification in wound by cult ure - 11/24/16 13:24 Bacteria identification in wound by culture [id number] NRG QUANTITY OF GROWTH Scant Growth NRG Complete blood count (CBC) with automate d white blood cell (WBC) differential - 12/10/16 11:00 Blood leukocytes automated count (number/volume) 8.2 10*3/uL 4.3-11.0 Blood erythrocytes automated count (number/volume) 3.09 10*6/uL 4.35-5.85 Venous blood hemoglobin measurement (mass/volume) 8.7 g/dL 11.5-16.0 Blood hematocrit (volume fraction) 28 % 35-52 Automated erythrocyte mean corpuscular volume 90 [ foz_us] 80-99 Automated erythrocyte mean corpuscular h emoglobin (mass per erythrocyte) 28 pg 25-34 Automated erythrocyte mean corpuscular h emoglobin concentration measurement (mass/volume) 31 g/dL 32-36 Automated erythrocyte distribution width ratio 15. 0 % 10.0- 14.5 Automated blood platelet count (count/volume) 283 10*3/uL 130-400 Automated blood platelet mean volume measurement 9.6 [foz_us] 7.4-10.4 Automated blood neutrophils/100 leukocytes 63 % 42-75 Automated blood lymphocytes/100 leukocytes 23 % 12-44 Blood monocytes/100 leukocytes 12 % 0-12 Automated blood eosinophils/100 leukocytes 2 % 0-10 Automated blood basophils/100 leukocytes 0 % 0-10 Blood neutrophils automated count (number/volume) 5.2 10*3 1.8-7.8 Blood lymphocytes automated count (number/volume) 1.9 10*3 1.0-4.0 Blood monocytes automated count (number/volume) 1. 0 10*3 0.0-1.0 Automated eosinophil count 0.2 10*3/uL 0 .0-0.3 Automated blood basophil count (count/volume) 0.0 10*3/uL 0.0-0.1 Complete urinalysis with reflex to cultu re - 12/10/16 11:00 Urine color determination YELLOW NRG Urine clarity determination CLEAR NR G Urine pH measurement by test strip 6 5-9 Specific gravity of urine by test strip 1.015 1.016-1.022 Urine protein assay by test strip, semi-quantitative 4+ NEGATIVE Urine glucose detection by automated test strip 2+ NEGATIVE Erythrocytes detection in urine sediment by light micr oscopy 1+ NEGATIVE Urine ketones detection by automated test strip NE GATIVE NEGATIVE Urine nitrite detection by test strip NEGATIVE NEGATIVE Urine total bilirubin detection by test strip NEGA TIVE NEGATIVE Urine urobilinogen measurement by automated test strip (mass/volume) NORMAL NORMAL Urine leukocyte esterase detection by dipstick 1+ NEGATIVE Automated urine sediment erythrocyte cou nt by microscopy (number/high power field) RARE NRG Automated urine sediment leukocyte count by microscopy (number/high power field) [HPF] NRG Bacteria detection in urine sediment by light microsco py FEW NRG Squamous epithelial cells detection in u rine sediment by light microscopy 10-25 NRG Crystals detection in urine sediment by light microsco py NONE NRG Casts detection in urine sediment by light microscopy NONE NRG Mucus detection in urine sediment by light microscopy NEGATIVE NRG Complete urinalysis with reflex to culture YES NRG Serum or plasma renal function panel (Na , K, Cl, CO2, BUN, Cr, glucose,Ca, phos, alb) - 12/10/16 11:00 Serum or plasma sodium measurement (moles/volume) 139 mmol/L 135-145 Serum or plasma potassium measurement (moles/volume) 4.7 mmol/L 3.6-5.0 Serum or plasma chloride measurement (moles/volume) 103 mmol/L 98-107 Carbon dioxide 26 mmol/L 21-32 Serum or plasma anion gap determination (moles/volume) 10 mmol/L 5-14 Serum or plasma urea nitrogen measurement (mass/volume ) 47 mg/dL 7-18 Serum or plasma creatinine measurement (mass/volume) 3.41 mg/dL 0.60-1.30 Serum or plasma urea nitrogen/creatinine mass ratio 14 NRG Serum or plasma creatinine measurement w ith calculation of estimated glomerular filtration rate 13 NRG Serum or plasma glucose measurement (mass/volume) 100 mg/dL 70-105 Serum or plasma calcium measurement (mass/volume) 8.4 mg/dL 8.5-10.1 Serum or plasma albumin measurement (mass/volume) 2.4 g/dL 3.2-4.5 Serum or plasma phosphate measurement (mass/volume) 4.6 mg/dL 2.3-4.7 Lipid 1996 panel - 12/10/16 11:00 Serum or plasma triglyceride measurement (mass/volume) 128 mg/dL <150 Serum or plasma cholesterol measurement (mass/volume) 186 mg/dL < 200 Serum or plasma cholesterol in HDL measurement (mass/v olume) 37 mg/dL 40-60 Cholesterol in LDL [mass/volume] in serum or plasma by direct assay 119 mg/dL 1-129 Serum or plasma cholesterol in VLDL measurement (mass/ volume) 26 mg/dL 5-40 Urine protein/creatinine mass ratio - 11:00 Urine protein measurement (mass/volume) 390 mg/dL 6-12 Urine creatinine measurement (mass/volume) 71 mg/d L 30-125 Urine protein/creatinine mass ratio 5.49 NR Serum iron and total iron binding capaci ty panel - 12/10/16 11:00 Serum or plasma iron measurement (mass/volume) 25 % 35-180 Total iron binding capacity and transferrin saturation measurement 19 % 15-50 Iron binding capacity [mass/volume] in serum or plasma 129 % 280-380 UIBC (unsaturated iron binding capacity) 104 % 55-450 Serum or plasma ferritin measurement (mass/volume) 472.0 % 15.0-150.0 Serum or plasma intact pararthyroid horm one measurement (mass/volume) - 12/10/16 11:00 Serum or plasma intact parathyroid hormone measurement (mass/volume) 228 pg/mL 10-65 Bio-intact parathyroid hormone (PTH) measurement with calcium 8.2 % 8.5-10.5 25-hydroxyvitamin D measurement - 11:00 25-hydroxy vitamin D measurement 30 % 30-100 Bacterial urine culture - 12/10/16 11:00 URINE CULTURE RESULTS <10,000/ML NR Serum or plasma renal function panel (Na , K, Cl, CO2, BUN, Cr, glucose,Ca, phos, alb) - 01/04/17 15:10 Serum or plasma sodium measurement (moles/volume) 139 mmol/L 135-145 Serum or plasma potassium measurement (moles/volume) 4.7 mmol/L 3.6-5.0 Serum or plasma chloride measurement (moles/volume) 104 mmol/L 98-107 Carbon dioxide 25 mmol/L 21-32 Serum or plasma anion gap determination (moles/volume) 10 mmol/L 5-14 Serum or plasma urea nitrogen measurement (mass/volume ) 43 mg/dL 7-18 Serum or plasma creatinine measurement (mass/volume) 2.63 mg/dL 0.60-1.30 Serum or plasma urea nitrogen/creatinine mass ratio 16 NRG Serum or plasma creatinine measurement w ith calculation of estimated glomerular filtration rate 18 NRG Serum or plasma glucose measurement (mass/volume) 175 mg/dL 70-105 Serum or plasma calcium measurement (mass/volume) 8.6 mg/dL 8.5-10.1 Serum or plasma albumin measurement (mass/volume) 2.5 g/dL 3.2-4.5 Serum or plasma phosphate measurement (mass/volume) 3.8 mg/dL 2.3-4.7 Whole blood hemoglobin and hematocrit pa jaquelin - 01/26/17 13:21 Venous blood hemoglobin measurement (mass/volume) 10.9 g/dL 11.5-16.0 Blood hematocrit (volume fraction) 34 % 35-52 Serum or plasma renal function panel (Na , K, Cl, CO2, BUN, Cr, glucose,Ca, phos, alb) - 01/28/17 11:20 Serum or plasma sodium measurement (moles/volume) 142 mmol/L 135-145 Serum or plasma potassium measurement (moles/volume) 4.5 mmol/L 3.6-5.0 Serum or plasma chloride measurement (moles/volume) 105 mmol/L 98-107 Carbon dioxide 21 mmol/L 21-32 Serum or plasma anion gap determination (moles/volume) 16 mmol/L 5-14 Serum or plasma urea nitrogen measurement (mass/volume ) 54 mg/dL 7-18 Serum or plasma creatinine measurement (mass/volume) 3.03 mg/dL 0.60-1.30 Serum or plasma urea nitrogen/creatinine mass ratio 18 NRG Serum or plasma creatinine measurement w ith calculation of estimated glomerular filtration rate 15 NRG Serum or plasma glucose measurement (mass/volume) 125 mg/dL 70-105 Serum or plasma calcium measurement (mass/volume) 8.8 mg/dL 8.5-10.1 Serum or plasma albumin measurement (mass/volume) 2.9 g/dL 3.2-4.5 Serum or plasma phosphate measurement (mass/volume) 5.0 mg/dL 2.3-4.7 Bacteria identification in isolate by an aerobe culture - 02/02/17 14:06 Bacteria identification in isolate by anaerobe culture NOANA NRG Gram stain microscopy - 02/02/17 14:06 GRAM STAIN RESULT NO WBC'S OR BACTERIA OBSERVED NR Bacteria identification in wound by cult ure - 02/02/17 14:06 Bacteria identification in wound by culture [id number] NRG FREE TEXT EXTERNAL (NOT JK) NRG QUANTITY OF GROWTH Scant Growth NR Bacterial susceptibility panel - 7 14:06 Gentamicin susceptibility test by minimum inhibitory c oncentration <= NRG Trimethoprim/sulfamethoxazole susceptibi lity test by minimum inhibitoryconcentration <= NRG Tobramycin susceptibility test by minimum inhibitory c oncentration <= NRG Cefazolin susceptibility test by minimum inhibitory co ncentration >= NRG Piperacillin/tazobactam susceptibility t est by minimum inhibitory concentration <= NRG Ciprofloxacin susceptibility test by minimum inhibitor y concentration <= NRG Meropenem susceptibility test by minimum inhibitory co ncentration <= NRG Aztreonam susceptibility test by minimum inhibitory co ncentration <= NRG Cefepime susceptibility test by minimum inhibitory con centration <= NRG Complete blood count (CBC) with automate d white blood cell (WBC) differential - 02/15/17 11:45 Blood leukocytes automated count (number/volume) 7.2 10*3/uL 4.3-11.0 Blood erythrocytes automated count (number/volume) 4.01 10*6/uL 4.35-5.85 Venous blood hemoglobin measurement (mass/volume) 11.7 g/dL 11.5-16.0 Blood hematocrit (volume fraction) 37 % 35-52 Automated erythrocyte mean corpuscular volume 91 [ foz_us] 80-99 Automated erythrocyte mean corpuscular h emoglobin (mass per erythrocyte) 29 pg 25-34 Automated erythrocyte mean corpuscular h emoglobin concentration measurement (mass/volume) 32 g/dL 32-36 Automated erythrocyte distribution width ratio 14. 5 % 10.0- 14.5 Automated blood platelet count (count/volume) 211 10*3/uL 130-400 Automated blood platelet mean volume measurement 10.1 [foz_us] 7.4-10.4 Automated blood neutrophils/100 leukocytes 61 % 42-75 Automated blood lymphocytes/100 leukocytes 26 % 12-44 Blood monocytes/100 leukocytes 9 % 0-12 Automated blood eosinophils/100 leukocytes 4 % 0-10 Automated blood basophils/100 leukocytes 1 % 0-10 Blood neutrophils automated count (number/volume) 4.4 10*3 1.8-7.8 Blood lymphocytes automated count (number/volume) 1.8 10*3 1.0-4.0 Blood monocytes automated count (number/volume) 0. 7 10*3 0.0-1.0 Automated eosinophil count 0.3 10*3/uL 0 .0-0.3 Automated blood basophil count (count/volume) 0.0 10*3/uL 0.0-0.1 Complete urinalysis with reflex to cultu re - 02/15/17 11:45 Urine color determination YELLOW NRG Urine clarity determination CLEAR NR G Urine pH measurement by test strip 6 5-9 Specific gravity of urine by test strip 1.015 1.016-1.022 Urine protein assay by test strip, semi-quantitative 4+ NEGATIVE Urine glucose detection by automated test strip 2+ NEGATIVE Erythrocytes detection in urine sediment by light micr oscopy 2+ NEGATIVE Urine ketones detection by automated test strip NE GATIVE NEGATIVE Urine nitrite detection by test strip NEGATIVE NEGATIVE Urine total bilirubin detection by test strip NEGA TIVE NEGATIVE Urine urobilinogen measurement by automated test strip (mass/volume) NORMAL NORMAL Urine leukocyte esterase detection by dipstick 1+ NEGATIVE Automated urine sediment erythrocyte cou nt by microscopy (number/high power field) [HPF] NRG Automated urine sediment leukocyte count by microscopy (number/high power field) [HPF] NRG Bacteria detection in urine sediment by light microsco py TRACE NRG Squamous epithelial cells detection in u rine sediment by light microscopy 5-10 NRG Crystals detection in urine sediment by light microsco py NONE NRG Casts detection in urine sediment by light microscopy NONE NRG Mucus detection in urine sediment by light microscopy NEGATIVE NRG Complete urinalysis with reflex to culture YES NRG Serum or plasma renal function panel (Na , K, Cl, CO2, BUN, Cr, glucose,Ca, phos, alb) - 02/15/17 11:45 Serum or plasma sodium measurement (moles/volume) 142 mmol/L 135-145 Serum or plasma potassium measurement (moles/volume) 4.4 mmol/L 3.6-5.0 Serum or plasma chloride measurement (moles/volume) 105 mmol/L 98-107 Carbon dioxide 28 mmol/L 21-32 Serum or plasma anion gap determination (moles/volume) 9 mmol/L 5-14 Serum or plasma urea nitrogen measurement (mass/volume ) 49 mg/dL 7-18 Serum or plasma creatinine measurement (mass/volume) 3.22 mg/dL 0.60-1.30 Serum or plasma urea nitrogen/creatinine mass ratio 15 NRG Serum or plasma creatinine measurement w ith calculation of estimated glomerular filtration rate 14 NRG Serum or plasma glucose measurement (mass/volume) 102 mg/dL 70-105 Serum or plasma calcium measurement (mass/volume) 9.1 mg/dL 8.5-10.1 Serum or plasma albumin measurement (mass/volume) 3.0 g/dL 3.2-4.5 Serum or plasma phosphate measurement (mass/volume) 5.1 mg/dL 2.3-4.7 Urine protein/creatinine mass ratio - 11:45 Urine protein measurement (mass/volume) 371 mg/dL 6-12 Urine creatinine measurement (mass/volume) 46 mg/d L 30-125 Urine protein/creatinine mass ratio 8.07 NRG Bacterial urine culture - 02/15/17 11:45 URINE CULTURE RESULTS <10,000/ML NR Serum iron and total iron binding capaci ty panel - 02/15/17 11:45 Serum or plasma iron measurement (mass/volume) 51 % 35-180 Total iron binding capacity and transferrin saturation measurement 28 % 15-50 Iron binding capacity [mass/volume] in serum or plasma 179 % 280-380 UIBC (unsaturated iron binding capacity) 128 % 55-450 Serum or plasma ferritin measurement (mass/volume) 301.0 % 15.0-150.0 Serum or plasma intact pararthyroid horm one measurement (mass/volume) - 02/15/17 11:45 Serum or plasma intact parathyroid hormone measurement (mass/volume) 177 pg/mL 10-65 Bio-intact parathyroid hormone (PTH) measurement with calcium 8.8 % 8.5-10.5 25-hydroxyvitamin D measurement - 11:45 25-hydroxy vitamin D measurement 37 % 30-100 Whole blood hemoglobin and hematocrit [facility] 03/09/17 13:03 Venous blood hemoglobin measurement (mass/volume) 10.9 g/dL 11.5-16.0 Blood hematocrit (volume fraction) 34 % 35-52 Whole blood hemoglobin and hematocrit [facility] 03/23/17 11:54 Venous blood hemoglobin measurement (mass/volume) 11.9 g/dL 11.5-16.0 Blood hematocrit (volume fraction) 37 % 35-52 Serum or plasma renal function panel (Na , K, Cl, CO2, BUN, Cr, glucose,Ca, phos, alb) - 03/25/17 12:00 Serum or plasma sodium measurement (moles/volume) 140 mmol/L 135-145 Serum or plasma potassium measurement (moles/volume) 4.7 mmol/L 3.6-5.0 Serum or plasma chloride measurement (moles/volume) 103 mmol/L 98-107 Carbon dioxide 25 mmol/L 21-32 Serum or plasma anion gap determination (moles/volume) 12 mmol/L 5-14 Serum or plasma urea nitrogen measurement (mass/volume ) 50 mg/dL 7-18 Serum or plasma creatinine measurement (mass/volume) 3.58 mg/dL 0.60-1.30 Serum or plasma urea nitrogen/creatinine mass ratio 14 NRG Serum or plasma creatinine measurement w ith calculation of estimated glomerular filtration rate 13 NRG Serum or plasma glucose measurement (mass/volume) 94 mg/dL 70-105 Serum or plasma calcium measurement (mass/volume) 9.1 mg/dL 8.5-10.1 Serum or plasma albumin measurement (mass/volume) 3.2 g/dL 3.2-4.5 Serum or plasma phosphate measurement (mass/volume) 5.1 mg/dL 2.3-4.7 Whole blood hemoglobin and hematocrit [facility] - 04/06/17 12:44 Venous blood hemoglobin measurement (mass/volume) 10.6 g/dL 11.5-16.0 Blood hematocrit (volume fraction) 33 % 35-52 Serum or plasma renal function panel (Na , K, Cl, CO2, BUN, Cr, glucose,Ca, phos, alb) - 04/26/17 12:50 Serum or plasma sodium measurement (moles/volume) 139 mmol/L 135-145 Serum or plasma potassium measurement (moles/volume) 4.9 mmol/L 3.6-5.0 Serum or plasma chloride measurement (moles/volume) 103 mmol/L 98-107 Carbon dioxide 25 mmol/L -32 Serum or plasma anion gap determination (moles/volume) 11 mmol/L 5-14 Serum or plasma urea nitrogen measurement (mass/volume ) 63 mg/dL 7-18 Serum or plasma creatinine measurement (mass/volume) 3.77 mg/dL 0.60-1.30 Serum or plasma urea nitrogen/creatinine mass ratio 17 NRG Serum or plasma creatinine measurement w ith calculation of estimated glomerular filtration rate 12 NRG Serum or plasma glucose measurement (mass/volume) 173 mg/dL 70-105 Serum or plasma calcium measurement (mass/volume) 8.9 mg/dL 8.5-10.1 Serum or plasma albumin measurement (mass/volume) 3.2 g/dL 3.2-4.5 Serum or plasma phosphate measurement (mass/volume) 5.2 mg/dL 2.3-4.7 Complete urinalysis with reflex to cultu re - 04/26/17 18:45 Urine color determination YELLOW NRG Urine clarity determination CLEAR NR G Urine pH measurement by test strip 6 5-9 Specific gravity of urine by test strip 1.010 1.016-1.022 Urine protein assay by test strip, semi-quantitative 4+ NEGATIVE Urine glucose detection by automated test strip 2+ NEGATIVE Erythrocytes detection in urine sediment by light micr oscopy 1+ NEGATIVE Urine ketones detection by automated test strip NE GATIVE NEGATIVE Urine nitrite detection by test strip NEGATIVE NEGATIVE Urine total bilirubin detection by test strip NEGA TIVE NEGATIVE Urine urobilinogen measurement by automated test strip (mass/volume) NORMAL NORMAL Urine leukocyte esterase detection by dipstick NEG ATIVE NEGATIVE Automated urine sediment erythrocyte cou nt by microscopy (number/high power field) [HPF] NRG Automated urine sediment leukocyte count by microscopy (number/high power field) RARE NRG Bacteria detection in urine sediment by light microsco py NONE NRG Squamous epithelial cells detection in u rine sediment by light microscopy 2-5 NRG Crystals detection in urine sediment by light microsco py NONE NRG Casts detection in urine sediment by light microscopy NONE NRG Mucus detection in urine sediment by light microscopy NEGATIVE NRG Complete urinalysis with reflex to culture NO NRG Whole blood hemoglobin and hematocrit pa jaquelin - 05/04/17 12:24 Venous blood hemoglobin measurement (mass/volume) 11.1 g/dL 11.5-16.0 Blood hematocrit (volume fraction) 33 % 35-52 Venous blood hemoglobin measurement (mas s/volume) - 05/18/17 11:50 Venous blood hemoglobin measurement (mass/volume) 11.1 g/dL 11.5-16.0 Blood hematocrit (volume fraction) - 11:50 Blood hematocrit (volume fraction) 34 % 35-52 Automated blood complete blood count (he mogram) panel - 05/27/17 10:45 Blood leukocytes automated count (number/volume) 7.5 10*3/uL 4.3-11.0 Blood erythrocytes automated count (number/volume) 3.79 10*6/uL 4.35-5.85 Venous blood hemoglobin measurement (mass/volume) 11.2 g/dL 11.5-16.0 Blood hematocrit (volume fraction) 34 % 35-52 Automated erythrocyte mean corpuscular volume 89 [ foz_us] 80-99 Automated erythrocyte mean corpuscular h emoglobin (mass per erythrocyte) 30 pg 25-34 Automated erythrocyte mean corpuscular h emoglobin concentration measurement (mass/volume) 33 g/dL 32-36 Automated erythrocyte distribution width ratio 13. 7 % 10.0- 14.5 Automated blood platelet count (count/volume) 197 10*3/uL 130-400 Automated blood platelet mean volume measurement 10.1 [foz_us] 7.4-10.4 Urine protein/creatinine mass ratio - 10:45 Urine protein measurement (mass/volume) 352 mg/dL 6-12 Urine creatinine measurement (mass/volume) 47 mg/d L 30-125 Urine protein/creatinine mass ratio 7.49 NRG Serum or plasma renal function panel (Na , K, Cl, CO2, BUN, Cr, glucose,Ca, phos, alb) - 05/27/17 10:45 Serum or plasma sodium measurement (moles/volume) 140 mmol/L 135-145 Serum or plasma potassium measurement (moles/volume) 4.3 mmol/L 3.6-5.0 Serum or plasma chloride measurement (moles/volume) 102 mmol/L 98-107 Carbon dioxide 28 mmol/L 21-32 Serum or plasma anion gap determination (moles/volume) 10 mmol/L 5-14 Serum or plasma urea nitrogen measurement (mass/volume ) 53 mg/dL 7-18 Serum or plasma creatinine measurement (mass/volume) 3.49 mg/dL 0.60-1.30 Serum or plasma urea nitrogen/creatinine mass ratio 15 NRG Serum or plasma creatinine measurement w ith calculation of estimated glomerular filtration rate 13 NRG Serum or plasma glucose measurement (mass/volume) 105 mg/dL 70-105 Serum or plasma calcium measurement (mass/volume) 9.2 mg/dL 8.5-10.1 Serum or plasma albumin measurement (mass/volume) 3.2 g/dL 3.2-4.5 Serum or plasma phosphate measurement (mass/volume) 4.8 mg/dL 2.3-4.7 Lipid 1996 panel - 05/27/17 10:45 Serum or plasma triglyceride measurement (mass/volume) 394 mg/dL <150 Serum or plasma cholesterol measurement (mass/volume) 257 mg/dL < 200 Serum or plasma cholesterol in HDL measurement (mass/v olume) 32 mg/dL 40-60 Cholesterol in LDL [mass/volume] in serum or plasma by direct assay 121 mg/dL 1-129 Serum or plasma cholesterol in VLDL measurement (mass/ volume) 79 mg/dL 5-40 Serum iron and total iron binding capaci ty panel - 05/27/17 10:45 Serum or plasma iron measurement (mass/volume) 74 % 35-180 Total iron binding capacity and transferrin saturation measurement 40 % 15-50 Iron binding capacity [mass/volume] in serum or plasma 183 % 280-380 UIBC (unsaturated iron binding capacity) 109 % NRG Serum or plasma ferritin measurement (mass/volume) 398.0 % 15.0-150.0 Serum or plasma intact pararthyroid horm one measurement (mass/volume) - 05/27/17 10:45 Serum or plasma intact parathyroid hormone measurement (mass/volume) 201.0 pg/mL 10.0-65.0 Bio-intact parathyroid hormone (PTH) measurement with calcium 8.8 % 8.5-10.5 25-hydroxyvitamin D measurement - 10:45 25-hydroxy vitamin D measurement 38 % 30-100 Whole blood hemoglobin and hematocrit pa [facility] - 06/15/17 12:18 Venous blood hemoglobin measurement (mass/volume) 10.2 g/dL 11.5-16.0 Blood hematocrit (volume fraction) 31 % 35-52 Bacteria identification in isolate by an aerobe culture - 06/22/17 12:15 Bacteria identification in isolate by anaerobe culture [facility] Gram stain microscopy - 06/22/17 12:15 GRAM STAIN RESULT FEW WBC'S, NO BACTERIA OBSERVED NRG Bacteria identification in wound by cult ure - 06/22/17 12:15 Bacteria identification in wound by culture [id number] NRG FREE TEXT EXTERNAL SENT TO [facility] FOR SENSITIVITY SARAH TING NRG QUANTITY OF GROWTH Moderate Growth NRG FREE TEXT ENTRY 2 06/25/17. NRG Sedimentation Rate-Westergren - 07/15/17 09:57 Sedimentation Rate-Westergren 61 mm/hr 0-40 ESR/SED RATE - 07/15/17 09:57 Sedimentation Rate-Westergren 61 mm/hr 0-40 Automated blood complete blood count (he mogram) panel - 07/19/17 12:00 Blood leukocytes automated count (number/volume) 9.0 10*3/uL 4.3-11.0 Blood erythrocytes automated count (number/volume) 3.84 10*6/uL 4.35-5.85 Venous blood hemoglobin measurement (mass/volume) 11.1 g/dL 11.5-16.0 Blood hematocrit (volume fraction) 36 % 35-52 Automated erythrocyte mean corpuscular volume 92 [ foz_us] 80-99 Automated erythrocyte mean corpuscular h emoglobin (mass per erythrocyte) 29 pg 25-34 Automated erythrocyte mean corpuscular h emoglobin concentration measurement (mass/volume) 31 g/dL 32-36 Automated erythrocyte distribution width ratio 13. 2 % 10.0- 14.5 Automated blood platelet count (count/volume) 225 10*3/uL 130-400 Automated blood platelet mean volume measurement 10.6 [foz_us] 7.4-10.4 Serum or plasma renal function panel (Na , K, Cl, CO2, BUN, Cr, glucose,Ca, phos, alb) - 07/19/17 12:00 Serum or plasma sodium measurement (moles/volume) 139 mmol/L 135-145 Serum or plasma potassium measurement (moles/volume) 4.3 mmol/L 3.6-5.0 Serum or plasma chloride measurement (moles/volume) 102 mmol/L 98-107 Carbon dioxide 28 mmol/L 21-32 Serum or plasma anion gap determination (moles/volume) 9 mmol/L 5-14 Serum or plasma urea nitrogen measurement (mass/volume ) 53 mg/dL 7-18 Serum or plasma creatinine measurement (mass/volume) 3.82 mg/dL 0.60-1.30 Serum or plasma urea nitrogen/creatinine mass ratio 14 NRG Serum or plasma creatinine measurement w ith calculation of estimated glomerular filtration rate 12 NRG Serum or plasma glucose measurement (mass/volume) 99 mg/dL 70-105 Serum or plasma calcium measurement (mass/volume) 9.3 mg/dL 8.5-10.1 Serum or plasma albumin measurement (mass/volume) 3.4 g/dL 3.2-4.5 Serum or plasma phosphate measurement (mass/volume) 4.2 mg/dL 2.3-4.7 Urine protein/creatinine mass ratio - 12:00 Urine protein measurement (mass/volume) 271 mg/dL 6-12 Urine creatinine measurement (mass/volume) 57 mg/d L 30-125 Urine protein/creatinine mass ratio 4.75 NRG Whole blood hemoglobin and hematocrit pa jaquelin - 08/10/17 12:05 Venous blood hemoglobin measurement (mass/volume) 11.4 g/dL 11.5-16.0 Blood hematocrit (volume fraction) 35 % 35-52 [id number] - 08/21/17 10:22 Serum or plasma urea nitrogen measurement (mass/volume ) 59 mg/dL 7-18 Serum or plasma creatinine measurement (mass/volume) 3.54 mg/dL 0.60-1.30 Serum or plasma urea nitrogen/creatinine mass ratio 17 NRG Serum or plasma creatinine measurement w ith calculation of estimated glomerular filtration rate 13 NRG Complete blood count (CBC) with automate d white blood cell (WBC) differential - 08/24/17 11:10 Blood leukocytes automated count (number/volume) 8.2 10*3/uL 4.3-11.0 Blood erythrocytes automated count (number/volume) 3.75 10*6/uL 4.35-5.85 Venous blood hemoglobin measurement (mass/volume) 11.2 g/dL 11.5-16.0 Blood hematocrit (volume fraction) 34 % 35-52 Automated erythrocyte mean corpuscular volume 89 [ foz_us] 80-99 Automated erythrocyte mean corpuscular h emoglobin (mass per erythrocyte) 30 pg 25-34 Automated erythrocyte mean corpuscular h emoglobin concentration measurement (mass/volume) 33 g/dL 32-36 Automated erythrocyte distribution width ratio 13. 2 % 10.0- 14.5 Automated blood platelet count (count/volume) 192 10*3/uL 130-400 Automated blood platelet mean volume measurement 11.1 [foz_us] 7.4-10.4 Automated blood neutrophils/100 leukocytes 61 % 42-75 Automated blood lymphocytes/100 leukocytes 23 % 12-44 Blood monocytes/100 leukocytes 9 % 0-12 Automated blood eosinophils/100 leukocytes 7 % 0-10 Automated blood basophils/100 leukocytes 1 % 0-10 Blood neutrophils automated count (number/volume) 5.0 10*3 1.8-7.8 Blood lymphocytes automated count (number/volume) 1.9 10*3 1.0-4.0 Blood monocytes automated count (number/volume) 0. 7 10*3 0.0-1.0 Automated eosinophil count 0.5 10*3/uL 0 .0-0.3 Automated blood basophil count (count/volume) 0.1 10*3/uL 0.0-0.1 Serum or plasma renal function panel (Na , K, Cl, CO2, BUN, Cr, glucose,Ca, phos, alb) - 08/24/17 11:10 Serum or plasma sodium measurement (moles/volume) 137 mmol/L 135-145 Serum or plasma potassium measurement (moles/volume) 4.4 mmol/L 3.6-5.0 Serum or plasma chloride measurement (moles/volume) 103 mmol/L 98-107 Carbon dioxide 22 mmol/L 21-32 Serum or plasma anion gap determination (moles/volume) 12 mmol/L 5-14 Serum or plasma urea nitrogen measurement (mass/volume ) 54 mg/dL 7-18 Serum or plasma creatinine measurement (mass/volume) 3.69 mg/dL 0.60-1.30 Serum or plasma urea nitrogen/creatinine mass ratio 15 NRG Serum or plasma creatinine measurement w ith calculation of estimated glomerular filtration rate 12 NRG Serum or plasma glucose measurement (mass/volume) 117 mg/dL 70-105 Serum or plasma calcium measurement (mass/volume) 8.9 mg/dL 8.5-10.1 Serum or plasma albumin measurement (mass/volume) 3.2 g/dL 3.2-4.5 Serum or plasma phosphate measurement (mass/volume) 4.2 mg/dL 2.3-4.7 Whole blood hemoglobin and hematocrit pa jaquelin - 09/07/17 12:15 Venous blood hemoglobin measurement (mass/volume) 10.6 g/dL 11.5-16.0 Blood hematocrit (volume fraction) 32 % 35-52 Serum or plasma renal function panel (Na , K, Cl, CO2, BUN, Cr, glucose,Ca, phos, alb) - 09/07/17 12:15 Serum or plasma sodium measurement (moles/volume) 140 mmol/L 135-145 Serum or plasma potassium measurement (moles/volume) 4.4 mmol/L 3.6-5.0 Serum or plasma chloride measurement (moles/volume) 103 mmol/L 98-107 Carbon dioxide 28 mmol/L 21-32 Serum or plasma anion gap determination (moles/volume) 9 mmol/L 5-14 Serum or plasma urea nitrogen measurement (mass/volume ) 59 mg/dL 7-18 Serum or plasma creatinine measurement (mass/volume) 4.25 mg/dL 0.60-1.30 Serum or plasma urea nitrogen/creatinine mass ratio 14 NRG Serum or plasma creatinine measurement w ith calculation of estimated glomerular filtration rate 10 NRG Serum or plasma glucose measurement (mass/volume) 131 mg/dL 70-105 Serum or plasma calcium measurement (mass/volume) 9.5 mg/dL 8.5-10.1 Serum or plasma albumin measurement (mass/volume) 3.1 g/dL 3.2-4.5 Serum or plasma phosphate measurement (mass/volume) 4.4 mg/dL 2.3-4.7 Serum iron and total iron binding capaci ty panel - 09/07/17 12:15 Serum or plasma iron measurement (mass/volume) 50 % 35-180 Total iron binding capacity and transferrin saturation measurement 29 % 15-50 Iron binding capacity [mass/volume] in serum or plasma 172 % 280-380 UIBC (unsaturated iron binding capacity) 122 % 55-450 Serum or plasma ferritin measurement (mass/volume) 518.0 % 15.0-150.0 Acute hepatitis panel - 09/28/17 15:10 Confirmatory quantitative serum or plasm a hepatitis B virus surface antigen measurement Non-Reactive Non-Reactive Hepatitis A virus IgM antibody assay Non-Reactive Non- Reactive Hepatitis B virus core IgM antibody assay Non-Reac tive Non- Reactive Serum hepatitis C virus antibody detection Non-Estella ctive Non-Reactive Capillary blood glucose measurement by g lucometer (mass/volume) - 07/12/18 09:09 Capillary blood glucose measurement by glucometer (mas s/volume) 151 mg/dL 70-110 Complete blood count (CBC) with automate d white blood cell (WBC) differential - 07/12/18 09:20 Blood leukocytes automated count (number/volume) 11.9 10*3/uL 4.3-11.0 Blood erythrocytes automated count (number/volume) 2.93 10*6/uL 4.35-5.85 Venous blood hemoglobin measurement (mass/volume) 8.8 g/dL 11.5-16.0 Blood hematocrit (volume fraction) 27 % 35-52 Automated erythrocyte mean corpuscular volume 93 [ foz_us] 80-99 Automated erythrocyte mean corpuscular h emoglobin (mass per erythrocyte) 30 pg 25-34 Automated erythrocyte mean corpuscular h emoglobin concentration measurement (mass/volume) 33 g/dL 32-36 Automated erythrocyte distribution width ratio 14. 3 % 10.0- 14.5 Automated blood platelet count (count/volume) 256 10*3/uL 130-400 Automated blood platelet mean volume measurement 9.9 [foz_us] 7.4-10.4 Automated blood neutrophils/100 leukocytes 73 % 42-75 Automated blood lymphocytes/100 leukocytes 16 % 12-44 Blood monocytes/100 leukocytes 8 % 0-12 Automated blood eosinophils/100 leukocytes 2 % 0-10 Automated blood basophils/100 leukocytes 0 % 0-10 Blood neutrophils automated count (number/volume) 8.7 10*3 1.8-7.8 Blood lymphocytes automated count (number/volume) 2.0 10*3 1.0-4.0 Blood monocytes automated count (number/volume) 1. 0 10*3 0.0-1.0 Automated eosinophil count 0.3 10*3/uL 0 .0-0.3 Automated blood basophil count (count/volume) 0.0 10*3/uL 0.0-0.1 Comprehensive metabolic panel - 07/12/18 09:20 Serum or plasma sodium measurement (moles/volume) 137 mmol/L 135-145 Serum or plasma potassium measurement (moles/volume) 4.3 mmol/L 3.6-5.0 Serum or plasma chloride measurement (moles/volume) 95 mmol/L 98-107 Carbon dioxide 31 mmol/L 21-32 Serum or plasma anion gap determination (moles/volume) 11 mmol/L 5-14 Serum or plasma urea nitrogen measurement (mass/volume ) 30 mg/dL 7-18 Serum or plasma creatinine measurement (mass/volume) 4.04 mg/dL 0.60-1.30 Serum or plasma urea nitrogen/creatinine mass ratio 7 NRG Serum or plasma creatinine measurement w ith calculation of estimated glomerular filtration rate 11 NRG Serum or plasma glucose measurement (mass/volume) 149 mg/dL 70-105 Serum or plasma calcium measurement (mass/volume) 9.1 mg/dL 8.5-10.1 Serum or plasma total bilirubin measurement (mass/volu me) 0.4 mg/dL 0.1-1.0 Serum or plasma alkaline phosphatase tasneem surement (enzymatic activity/volume) 76 U/L 40-136 Serum or plasma aspartate aminotransfera se measurement (enzymatic activity/volume) 9 U/L 5-34 Serum or plasma alanine aminotransferase measurement (enzymatic activity/volume) 8 U/L 0-55 Serum or plasma protein measurement (mass/volume) 6.8 g/dL 6.4-8.2 Serum or plasma albumin measurement (mass/volume) 3.4 g/dL 3.2-4.5 CALCIUM CORRECTED 9.6 mg/dL 8.5-10.1 PT panel in platelet poor plasma by coag ulation assay - 07/12/18 09:20 Prothrombin time (PT) in platelet poor plasma by coagu lation assay 14.8 s 12.2-14.7 INR in platelet poor plasma or blood by coagulation as say 1.2 0.8-1.4 Activated partial thromboplastin time (a PTT) in platelet poor plasma bycoagulation assay - 07/12/18 09:20 Activated partial thromboplastin time (a PTT) in platelet poor plasma bycoagulation assay 66 s 24-35 Fibrin D-dimer FEU measurement in platel et poor plasma (mass/volume) - 07/12/18 09:20 Fibrin D-dimer FEU measurement in platelet poor plasma (mass/volume) 9.39 ug/mL 0.00-0.49 Serum or plasma troponin i.cardiac measu rement (mass/volume) - 07/12/18 09:20 Serum or plasma troponin i.cardiac measurement (mass/v olume) < ng/mL <0.30 Bacterial blood culture - 07/12/18 10:05 Bacterial blood culture NG NRG Blood lactic acid measurement (moles/vol ume) - 07/12/18 10:20 Blood lactic acid measurement (moles/volume) 1.43 mmol/L 0.50-2.00 Bacterial blood culture - 07/12/18 10:20 Bacterial blood culture NG NRG PDM - 09 PANEL (PROFILE 1) - 03/17/19 11 :27 Prescribed Drug 1 Oxycodone NRG Creatinine 93.5 mg/dL > or = 20.0 pH 6.29 4.5 - 9.0 Oxidant NEGATIVE mcg/mL <200 Amphetamines NEGATIVE ng/mL <500 medMATCH Amphetamines CONSISTENT NRG Benzodiazepines NEGATIVE ng/mL <100 medMATCH Benzodiazepines CONSISTENT NRG Marijuana Metabolite NEGATIVE ng/mL <20 medMATCH Marijuana Metab CONSISTENT NRG Cocaine Metabolite NEGATIVE ng/mL <150 medMATCH Cocaine Metab CONSISTENT NRG Opiates NEGATIVE CONFIRMED ng/mL <100 Oxycodone POSITIVE ng/mL <100 COMMENT NRG Codeine NEGATIVE ng/mL <50 medMATCH Codeine CONSISTENT NRG Hydrocodone NEGATIVE ng/mL <50 medMATCH Hydrocodone CONSISTENT NRG Hydromorphone NEGATIVE ng/mL <50 medMATCH Hydromorphone CONSISTENT NRG Morphine NEGATIVE ng/mL <50 medMATCH Morphine CONSISTENT NRG Norhydrocodone NEGATIVE ng/mL <50 medMATCH Norhydrocodone CONSISTENT NRG Noroxycodone 385 ng/mL <50 medMATCH Noroxycodone CONSISTENT NRG Oxycodone 977 ng/mL <50 medMATCH Oxycodone CONSISTENT NRG Oxymorphone 5426 ng/mL <50 medMATCH Oxymorphone CONSISTENT NRG Barbiturates NEGATIVE ng/mL <300 medMATCH Barbiturates CONSISTENT NRG Methadone Metabolite NEGATIVE ng/mL <100 medMATCH Methadone Metab CONSISTENT NRG Phencyclidine NEGATIVE ng/mL <25 medMATCH Phencyclidine CONSISTENT NRG Encounters ACCT No. Visit Date/Time Discharge Status Pt. Type Provider Facility Loc./Unit Complaint [id number] 07/16/2017 07:05:00 Document Registration [id number] 04/01/2020 14:28:00 020 18:41:00 DIS Emergency ADILSON LICEA, CT [place] [facility] ER STROKE [id number] 08/23/2019 11:18:00 019 13:06:00 DIS Outpatient SERGIO HANCOCK [facility] REHAB RESTRENGTHENING;GAIT Corinna RAINING [id number] 06/23/2019 09:37:00 019 00:01:00 DIS Outpatient SERGIO HANCOCK [facility] REHAB RESTRENGTHENING;GAIT Corinna RAINING [id number] 07/12/2018 08:59:00 018 12:54:00 DIS Emergency NATTY BUTCHER MD [facility] ER STROKE SYMPTOMS [id number] 11/09/2017 00:16:00 23:59:59 CLS Preadmit IRENE BRUCE [facility] CHRONIC KIDNEY DISEASE STAGE 4 [id number] 09/07/2017 11:53:00 00:01:00 DIS Outpatient IRENE BRUCE [facility] CHRONIC KIDNEY DISEASE STAGE 4 [id number] 09/28/2017 15:14:00 23:59:59 CLS Preadmit CUCO LICEA, PRESTON Granados [facility] R10.9 [id number] 08/24/2017 13:00:00 017 23:59:59 CLS Outpatient PRESTON NORWOOD MD [facility] RENAL FAILURE, ANEMIA [id number] 08/21/2017 10:02:00 23:59:59 CLS Outpatient OLYA WILLIS MD [facility] RAD L97.519 NON-HEALING U[facility] ER OF RIGHT FOOT, KIDNEY D [id number] 08/04/2017 12:02:00 23:59:59 CLS Outpatient OLYA WILLIS MD [facility] RAD L98.492 [id number] 07/13/2017 11:56:00 00:01:00 DIS Outpatient IRENE BRUCE [facility] CHRONIC KIDNEY DISEASE STAGE 4 [id number] 07/19/2017 12:00:00 017 23:59:59 CLS Outpatient IRENE BRUCE NP-James [facility] N18.4 E87.5 [id number] 07/06/2017 10:44:00 017 23:59:59 CLS Outpatient ESTUARDO RICHARDSON R [employer] [facility] WOUNDCARE [id number] 07/05/2017 07:56:00 017 23:59:59 CLS Preadmit CUCO LICEA, PRESTON Granados [facility] CKD,DM,ANEMIA [id number] 06/29/2017 11:47:00 017 00:01:00 DIS Outpatient IRENE BRUCE [facility] CHRONIC KIDNEY DISEASE STAGE 4 [id number] 06/22/2017 10:54:00 017 23:59:59 CLS Outpatient ESTUARDO RICHARDSON R [employer] [facility] WOUNDCARE [id number] 06/15/2017 11:08:00 017 23:59:59 CLS Outpatient DEBRA ESTUARDO R [employer] [facility] WOUNDCARE [id number] 05/27/2017 12:00:00 017 23:59:59 CLS Outpatient PRESTON NORWOOD MD [facility] CKD STAGE IV, H YERKALEMIA [id number] 05/25/2017 10:48:00 017 23:59:59 CLS Outpatient DEBRA ESTUARDO R [employer] [facility] WOUNDCARE [id number] 05/25/2017 12:23:00 017 16:00:00 DIS Outpatient DEBRA ESTUARDO R [employer] [facility] WOUNDCARE [id number] 05/04/2017 10:50:00 017 00:01:00 DIS Outpatient JENARO RICHARDSONN R [employer] [facility] WOUNDCARE [id number] 04/26/2017 13:45:00 017 23:59:59 CLS Outpatient PRESTON NORWOOD MD [facility] DYSURIA, CKD, H YPERKALEMIA, DM [id number] 03/23/2017 11:44:00 017 00:01:00 DIS Outpatient IRENE BRUCE NP-C [facility] CHRONIC KIDNEY DISEASE STAGE 4 [id number] 03/25/2017 12:30:00 017 23:59:59 CLS Outpatient PRESTON NORWOOD MD [facility] RENAL FAILURE, CKD [id number] 02/15/2017 13:29:00 017 23:59:59 CLS Outpatient PRESTON NORWOOD MD [facility] CKD STG IV, HTN [id number] 02/02/2017 13:26:00 017 00:01:00 DIS Outpatient ESTUARDO RICHARDSON APRN [facility] WOUNDCARE [id number] 01/28/2017 17:39:00 017 23:59:59 CLS Outpatient PRESTON NORWOOD MD [facility] [id number] 01/04/2017 15:47:00 017 23:59:59 CLS Outpatient PRESTON NORWOOD MD [facility] RENAL INSUFICIE NCY, HTN, CKD W/ HEART FAILURE [id number] 12/10/2016 12:08:00 017 23:59:59 CLS Outpatient PRSETON NORWOOD MD [facility] CKD STAGE IV (S EVERE) [id number] 12/02/2016 13:59:00 017 23:59:59 CLS Preadmit TAMMY LICEA, RAHEL Mcdonald [facility] REHAB LYMPHEDEMA IN LOWER EXT REMITIES [id number] 11/17/2016 12:18:00 017 23:59:59 CLS Outpatient URMILA SUTHERLAND MD [facility] LAB RENAL INSUFFICIENCY, HT N, CKD W/ HEART FAILURE [id number] 11/10/2016 13:01:00 017 00:01:00 DIS Outpatient ESTUARDO RICHARDSON APRN [facility] WOUNDCARE [id number] 11/11/2016 09:48:00 12:39:00 DIS Outpatient URMILA SUTHERLAND MD [facility] CATH PERIPHERAL VASCULAR DIS EASE, RENAL INSUFFICIENCY [id number] 11/09/2016 07:19:00 23:59:59 CLS Outpatient URMILA SUTHERLAND MD [facility] CHEST PAIN SYNDROME,HTN ,LVH,HLP [id number] 10/14/2016 12:32:00 23:59:59 CLS Outpatient ESTUARDO RICHARDSON APRN [facility] RAD E11.621,L97.412 [id number] 10/09/2016 00:09:00 23:59:59 CLS Preadmit IRENE BRUCE NP-C [facility] ANEMIA,CKD [id number] 08/10/2016 12:36:00 00:01:00 DIS Outpatient IRENE BRUCE NP-James [facility] ANEMIA,CKD [id number] 09/28/2016 16:25:00 23:59:59 CLS Outpatient PRESTON NORWOOD MD [facility] CHRONIC KIDNEY DISEASE STAGE N [id number] 09/03/2016 14:24:00 23:59:59 CLS Outpatient ESTUARDO RICHARDSON APRN [facility] RAD E11.621,L97.412 [id number] 08/17/2016 12:23:00 Dorothy 23:59:59 CLS Outpatient PRESTON NORWOOD MD [facility] CKD STG IV, HYP ERKALEMIA, HTN AND CKD [id number] 06/08/2016 11:26:00 Dorothy 23:59:59 CLS Outpatient PRESTON NORWOOD MD [facility] CKD STAGE IV, H TN, DM [id number] 06/01/2016 10:32:00 016 23:59:59 CLS Outpatient OLYA WILLIS MD [facility] ANEMIA, CKD [id number] 04/23/2016 13:32:00 016 16:00:00 DIS Outpatient ESTUARDO RICHARDSON APRN [facility] WOUNDCARE [id number] 04/24/2016 04:18:00 016 09:18:00 DIS Emergency MARITA DOIRENE a [facility] ER FALL [id number] 02/20/2016 14:25:00 00:01:00 DIS Outpatient ESTUARDO RICHARDSON APRN [facility] WOUNDCARE [id number] 02/19/2016 10:00:00 23:59:59 CLS Outpatient LA NENA PONCE MD [facility] [id number] 01/27/2016 14:37:00 23:59:59 CLS Outpatient OLYA WILLIS MD [facility] HTN, CKD STAGE III [id number] 01/07/2016 12:49:00 23:59:59 CLS Outpatient IRENE BRUCE NP-James [facility] RAD KDC STAGE 4 N18.4 [id number] 11/18/2015 14:45:00 23:59:59 CLS Outpatient LA NENA PONCE MD [facility] WOUND INFECTION [id number] 09/06/2015 06:36:00 23:59:59 CLS Outpatient INA BARAJAS DPM [facility] WOUND RT HEEL [id number] 04/24/2015 14:47:00 23:59:59 CLS Preadmit OLYA WILLIS MD [facility] REHAB [id number] 04/11/2015 11:37:00 23:59:59 CLS Outpatient OLYA WILLIS MD [facility] HYPERKALEMIA [id number] 04/04/2015 14:30:00 23:59:59 CLS Outpatient OLYA WILLIS MD [facility] HYPERKALEMIA [id number] 03/27/2015 15:40:00 23:59:59 CLS Outpatient OLYA WILLIS MD [facility] HYPERKALEMIA [id number] 03/20/2015 13:00:00 23:59:59 CLS Outpatient OLYA WILLIS MD [facility] HYPERKALEMIA [id number] 03/11/2015 12:06:00 23:59:59 CLS Outpatient OLYA WILLIS MD [facility] HYPERKALEMIA [id number] 03/06/2015 00:10:00 23:59:59 CLS Preadmit OLYA WILLIS MD [facility] SDC NON HEALING RIGHT FOOT [id number] 03/04/2015 13:10:00 23:59:59 CLS Outpatient OLYA WILLIS MD [facility] HYPERKALEMIA [id number] 01/11/2015 11:31:00 12:30:00 DIS Outpatient RAHEL MUNOZ MD [facility] WOUNDCARE [id number] 02/25/2015 11:07:00 23:59:59 CLS Outpatient OLYA WILLIS MD [facility] HYPERKALEMIA [id number] 02/18/2015 10:58:00 23:59:59 CLS Outpatient OLYA WILLIS MD [facility] HYPERKALEMIA [id number] 02/15/2015 10:00:00 23:59:59 CLS Outpatient OLYA WILLIS MD [facility] HYPERKALEMIA [id number] 02/07/2015 10:52:00 015 23:59:59 CLS Outpatient OLYA WILLIS MD [facility] HYPERPOTASSEMIA [id number] 01/31/2015 13:54:00 23:59:59 CLS Outpatient OLYA WILLIS MD [facility] HYPERKALEMIA [id number] 01/24/2015 14:00:00 23:59:59 CLS Outpatient OLYA WILLIS MD [facility] DIABETES, MED CHANGE [id number] 01/19/2015 11:00:00 23:59:59 CLS Outpatient OLYA WILLIS MD [facility] HYPERKALEMIA [id number] 01/18/2015 14:50:00 23:59:59 CLS Outpatient OLYA WILLIS MD [facility] ELEVATED POTASSIUM [id number] 01/17/2015 14:25:00 23:59:59 CLS Outpatient OLYA WILLIS MD [facility] ELEVATED POTASSIUM [id number] 12/08/2014 09:50:00 23:59:59 CLS Outpatient OLYA WILLIS MD [facility] SDC NON HEALING RIGHT FOOT [id number] 11/19/2014 08:16:00 08:30:00 DIS Outpatient RAHEL MUNOZ MD [facility] WOUNDCARE [id number] 09/02/2014 04:50:00 014 12:30:00 DIS Inpatient OLYA WILLIS MD [facility] 4TH RECTAL IMPACTION;CHRONI C CONSTIPATION [id number] 08/14/2014 03:01:00 014 14:05:00 DIS Inpatient OLYA WILLIS MD [facility] 4TH FECAL IMPACTION [id number] 05/09/2014 10:10:00 014 07:00:00 DIS Inpatient KAYLEE OCASIO MD [facility] IRF INFECTION RIGHT ANKLE [id number] 05/14/2014 07:17:00 014 10:13:00 DIS Outpatient IFEOMA DONALDSON MD [facility] SDC INFECTION RIGHT ANKLE [id number] 05/02/2014 16:47:00 014 10:10:00 DIS Inpatient IFEOMA DONALDSON MD [facility] SURGICAL INFECTION RIGHT ANKLE [id number] 04/29/2014 15:57:00 014 17:33:00 DIS Emergency ANTHONY MARTIN APRN [facility] ER POST SURGERY BLEEDING [id number] 04/26/2014 16:02:00 23:59:59 CLS Outpatient [id number] 04/15/2014 16:22:00 014 12:50:00 DIS Inpatient KAYLEE OCASIO MD [facility] IRF FX R ANKLE [id number] 04/11/2014 21:10:00 014 16:27:00 DIS Inpatient OLYA WILLIS MD [facility] SURGICAL FX R ANKLE [id number] 02/21/2014 07:53:00 23:59:59 CLS Outpatient MARGARITA CORDERO DO [facility] RAD LEFT BREAST LARISSA CIFICATIONS [id number] 02/12/2014 08:41:00 23:59:59 CLS Outpatient SHEA MAYFIELD [facility] RAD SCREENING [id number] 11/12/2013 00:13:00 014 02:10:00 DIS Emergency JD WANG MD [facility] ER DIZZINESS [id number] 09/19/2013 10:26:00 10:08:00 DIS Outpatient NAJMA FLANAGAN MD [facility] 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 [id number] 05/11/2013 13:40:00 08/26/2 013 15:43:00 DIS Outpatient MARGARITA CORDERO DO [facility] REHAB CVA WITH R CARYL PLEGIA [id number] 04/21/2013 21:00:00 013 06:30:00 DIS Outpatient MARGARITA CORDERO DO [facility] SLEEP SLEEP APNEA,SNO RING [id number] 02/20/2013 10:13:00 013 15:45:00 DIS Outpatient RALPH MARTIN MD [facility] SDC RECTAL BLEEDING/UPPER GASTRIC PAIN [id number] 11/26/2017 12:40:00 Document Registration [id number] 07/05/2017 09:09:00 Document Registration [id number] 11/28/2015 16:08:00 Document Registration [id number] 06/13/2015 13:10:00 Document Registration [id number] 06/13/2015 13:09:00 Document Registration [id number] 01/07/2015 14:45:00 Document Registration [id number] 12/31/2014 16:16:00 Document Registration [id number] 12/24/2014 11:06:00 Document Registration [id number] 12/17/2014 08:48:00 Document Registration [id number] 12/15/2014 10:15:00 Document Registration [id number] 11/19/2014 09:58:00 Document Registration [id number] 02/16/2013 12:53:00 Document Registration [id number] 02/15/2013 08:15:00 Document Registration [id number] 01/03/2013 13:46:00 Document Registration [id number] 10/04/2012 11:50:00 Document Registration [id number] 09/20/2012 11:50:00 Document Registration [id number] 08/14/2012 00:28:00 Document Registration [id number] 12/24/2011 11:01:00 Document Registration [id number] 10/15/2011 11:00:00 Document Registration [id number] 09/10/2011 08:27:00 Document Registration [id number] 08/21/2011 05:39:00 Document Registration [id number] 08/17/2011 09:09:00 Document Registration [id number] 08/05/2011 10:55:00 Document Registration [id number] 07/06/2011 10:56:00 Document Registration [id number] 04/08/2011 11:02:00 Document Registration [id number] 03/09/2011 11:52:00 Document Registration [id number] 03/09/2011 09:54:00 Document Registration [id number] 01/17/2011 13:51:00 Document Registration [id number] 12/26/2010 14:15:00 Document Registration [id number] 12/23/2010 20:58:00 Document Registration [id number] 11/17/2010 08:35:00 Document Registration [id number] 11/03/2010 08:00:00 Document Registration [id number] 05/15/2010 17:13:00 Document Registration [id number] 02/23/2020 14:20:00 02/23/2020 23:59:5 9 CLS Outpatient OLYA WILLIS MD [facility] [id number] 03/17/2019 11:00:00 Document Registration [id number] 07/15/2017 09:20:00 Document Registration [id number] 01/14/2015 14:06:00 01/14/2015 23:59: 59 CLS Outpatient OLYA WILLIS MD [id number] 10/23/2014 09:29:00 10/23/2014 23:59: 59 CLS Outpatient OLYA WILLIS MD [id number] 09/03/2014 07:29:00 09/03/2014 23:59: 59 CLS Outpatient LIANA MCADAMS DO [id number] 08/23/2014 15:13:00 08/23/2014 23:59: 59 CLS Outpatient OLYA WILLIS MD [id number] 08/23/2014 15:13:00 08/23/2014 23:59: 59 CLS Outpatient OLYA WILLIS MD [id number] 05/29/2014 07:46:00 05/29/2014 23:59: 59 CLS Outpatient OLYA WILLIS MD [id number] 04/24/2014 15:39:00 04/24/2014 23:59: 59 CLS Outpatient OLYA WILLIS MD [id number] 04/07/2014 10:14:00 04/07/2014 23:59: 59 CLS Outpatient LIANA MCADAMS DO 02/09/16 04/07/2018 14:42:43 04/07/2018 23:5 9:59 CLS Outpatient Margarita Cordero
== END 2020-04-01 18:41 | disposition short-term general hospital (02) ==
LOC: EDUNIT# 14:25 → ER 14:28
DX: J18.1 Lobar pneumonia, unspecified organism (principal); I12.0 Hypertensive chronic kidney disease with stage 5 chronic kidney disease or end stage renal disease; N18.6 End stage renal disease; E11.22 Type 2 diabetes mellitus with diabetic chronic kidney disease; E11.42 Type 2 diabetes mellitus with diabetic polyneuropathy; E11.51 Type 2 diabetes mellitus with diabetic peripheral angiopathy without gangrene; E78.00 Pure hypercholesterolemia, unspecified; K21.9 Gastro-esophageal reflux disease without esophagitis; M81.0 Age-related osteoporosis without current pathological fracture; F41.9 Anxiety disorder, unspecified; F32.9 Major depressive disorder, single episode, unspecified; Z85.828 Personal history of other malignant neoplasm of skin; Z99.2 Dependence on renal dialysis; Z20.828 Contact with and (suspected) exposure to other viral communicable diseases; Z88.8 Allergy status to other drugs, medicaments and biological substances; Z88.2 Allergy status to sulfonamides; Z88.1 Allergy status to other antibiotic agents; Z79.4 Long term (current) use of insulin; Z87.891 Personal history of nicotine dependence; Z80.3 Family history of malignant neoplasm of breast; Z82.49 Family history of ischemic heart disease and other diseases of the circulatory system
CPT/HCPCS: 36415; 51702; 70450; 71045; 80053; 81000; 83605; 83615; 84145; 84484; 85007; 85027; 85379; 85610; 85652; 85730; 86141; 87040; 87635; 93005; 93041

== ENCOUNTER → 2020-04-19 | Outpatient (CLI) | payer MEDICARE ==
[~2020-04-19] MED LIST changes: +MULT-567 PO; -MULT1TAB69 PO
--- NOTE | 2020-04-19 12:14 | Diagnostic Imaging Report ---
EXAMINATION: Magnetic resonance imaging of the right shoulder without contrast. DATE: April 19, 2020. COMPARISON: None. HISTORY: 75-year-old female, right shoulder pain. TECHNIQUE: Magnetic Resonance Imaging sequences were performed of the shoulder without contrast. FINDINGS: There are motion limitations of the exam. ROTATOR CUFF, LIGAMENTS, TENDONS, AND MUSCLES: There are full thickness full width tears of the supraspinatus and infraspinatus tendons with tendon retraction to the level of the glenoid. The teres minor tendon is intact. The subscapularis tendon is grossly intact. There is severe fatty atrophy of the supraspinatus and infraspinatus muscles. LONG HEAD OF BICEPS: The biceps labral attachment and long head of the biceps tendon is grossly intact. The long head of the biceps tendon is normally positioned within the bicipital groove. GLENOHUMERAL JOINT: The humeral head is superiorly subluxed and directly abuts the undersurface of the acromion. The labrum is grossly intact. There is no identified paralabral cyst. There is generalized approximately 50% cartilage loss of the humeral head and glenoid. There is no joint effusion. ACROMIOCLAVICULAR JOINT: The acromioclavicular joint is normally aligned. The coracoclavicular and coracoacromial ligaments are intact. There are moderate acromioclavicular degenerative changes with osteophytes extending 2 to 3 mm below the joint margin. BONE: The bones all have normal configuration. There are degenerative related marrow changes adjacent to the acromioclavicular joint. There is no acute fracture, bone contusion, or evidence of osteonecrosis. BURSAE AND SOFT TISSUES: There is low-level edema in the lateral deltoid muscle which may reflect a low-grade muscle strain. IMPRESSION: 1. Full thickness full width tears of the supraspinatus and infraspinatus tendons with tendon retraction to the level of the glenoid. There is severe fatty atrophy of both muscles. 2. Moderate acromioclavicular degenerative changes with 2 to 3 mm undersurface osteophytes. 3. Moderate glenohumeral osteoarthritis. The humeral head is superiorly subluxed and directly contacts the undersurface of the acromion. 4. No acute fracture, bone contusion, or evidence of osteonecrosis. 5. Abnormal edema-like signal in the lateral deltoid muscle which may reflect a low-grade muscle strain. Dictated by: Dictated on workstation # [id number]
== END ==
LOC: RAD 09:52
PROVIDERS: ATTEND Nurse Practitioner Community Health
DX: S46.811A Strain of other muscles, fascia and tendons at shoulder and upper arm level, right arm, initial encounter (principal); M19.011 Primary osteoarthritis, right shoulder
CPT/HCPCS: 73221

== ENCOUNTER → 2020-05-23 | Outpatient (CLI) | payer MEDICARE ==
--- NOTE | 2020-05-23 18:15 | Diagnostic Imaging Report ---
EXAMINATION: Bilateral feet at 02:10 p.m. INDICATION: Bilateral skin ulcers. FINDINGS: Three views of each foot were obtained. As noted on the prior right foot exam of 08/04/2017, the osseous structures of the right foot are severely demineralized. The postsurgical changes involving the distal tibia and fibula and the hind foot seen on the prior study are again evident and no different. The soft tissue edema over the dorsum of the forefoot noted on the prior study is also again identified and unchanged; however, there are now appears to be an area of ulceration along the plantar aspect of the hind foot. There may be a small amount of gas in the soft tissues in this area. There is no evidence for bony destruction to indicate osteomyelitis. Even so, MRI would be recommended for further evaluation if clinically indicated. The images of the left foot also show that the osseous structures are demineralized. There is moderate degenerative disease of the forefoot and there is a prominent calcaneal spur. There is also a calcified enthesophyte along the posterior aspect of the calcaneus. Reportedly, the patient has an area of ulceration along the posterior aspect of the calcaneus. There does appear to be a 1.6 cm ulcer in this region. There is no bony destruction to suggest osteomyelitis, however. Again if further imaging is desired, then MRI would be recommended. IMPRESSION: 1. The osseous structures are demineralized, but there is no acute bony abnormality identified. 2. There are areas of ulceration involving the plantar surface of the right heel and along the posterior aspect of the calcaneus on the left. There is no clear evidence for bony destruction to indicate osteomyelitis. Recommendations as above. Dictated by: Dictated on workstation # [id number]
== END ==
LOC: RAD 13:40
PROVIDERS: ATTEND Nurse Practitioner Family
DX: L97.419 Non-pressure chronic ulcer of right heel and midfoot with unspecified severity (principal); L97.529 Non-pressure chronic ulcer of other part of left foot with unspecified severity

== ENCOUNTER 2020-05-29 14:26 | Emergency (ER) | payer MEDICARE ==
[~2020-05-29] VITALS: Ht 157.5 cm; Wt 63.5 kg
[2020-05-29] VITALS (12 sets, daily range): BP systolic 110–139; BP diastolic 44–86
--- NOTE | 2020-05-29 14:50 | NUR ---
right lower leg dsg removed by dr weeks. patient complaint of pain rt lower leg when touched. ulcer noted rt heel, depth not measured, ulcer not staged. packing wet to dry applied with kurlex and claudia dressing. per dr weeks order.
[2020-05-29 15:14] LABS: ABG BASE EXCESS 9.7 MMOL/L (-2.5-2.5); ABG OXYGEN SATURATION 98 % (94-100); ABG PCO2 48 MMHG (35-45); ABG PH 7.47 (7.37-7.43); ABG PO2 106 MMHG (79-93); ABG TCO2 35.3 MMOL/L (21.0-31.0); BASOPHILS % (AUTO) 0 % (0-10); EOSINOPHILS % (AUTO) 0 % (0-10); HEMATOCRIT 36 % (35-52); HEMOGLOBIN 11.2 G/DL (11.5-16.0); LYMPHOCYTES # (AUTO) 0.7 X 10^3 (1.0-4.0); LYMPHOCYTES % (AUTO) 4 % (12-44); MEAN CORPUSCULAR HEMOGLOBIN 29 PG (25-34); MEAN CORPUSCULAR HGB CONC 31 G/DL (32-36); MEAN CORPUSCULAR VOLUME 93 FL (80-99); MEAN PLATELET VOLUME 9.6 FL (7.4-10.4); MONOCYTES % (AUTO) 5 % (0-12); NEUTROPHILS # (AUTO) 17.9 X 10^3 (1.8-7.8); NEUTROPHILS % (AUTO) 91 % (42-75); PLATELET COUNT 261 10^3/uL (130-400); RED CELL DISTRIBUTION WIDTH 16.3 % (10.0-14.5); WHITE BLOOD COUNT 19.7 10^3/uL (4.3-11.0)
[2020-05-29 15:15] LABS: ALLENS TEST YES-POS; INSPIRED O2 2L; VENTILATOR NO
[2020-05-29] MEDS ORDERED: VANCOMYCIN INJECTION 1,250 MG in NS (IVPB) 250 ML IV ONE (15:15)
[2020-05-29] MEDS ORDERED: CEFEPIME INJECTION 1,000 MG in WATER (STERILE) FOR INJECTION 10 ML IV ONE (15:15)
[2020-05-29] MEDS ORDERED: ACETAMINOPHEN 325 MG TABLET PO ONE (15:15)
[2020-05-29 15:16] LABS: PATIENT TEMP 37.1
[2020-05-29] MEDS ORDERED: NS IV 500 ML 500 ML IV ONE (15:18)
--- NOTE | 2020-05-29 15:18 | ED Respiratory ---
General Chief Complaint: Fever-Adult/Adol Stated Complaint: FEVER;RESP DISTRESS Source: patient Exam Limitations: no limitations (MONTANA SOLIS) History of Present Illness Date Seen by Provider: May 29, 2020 Time Seen by Provider: 14:15 Initial Comments Patient presents ER by EMS from home with chief complaint of home health nurse was checking on her and found her oxygen sats 85% on room air. EMS confirms this and put her on 2-3 L by nasal cannula which brought her up to 95%. As soon as she came off the oxygen for transfer her sats would immediately dropped down to 85%. She had mild shortness of breath with cough. She has a fever 101F and has not taken any antipyretics. She has crackles in both bases according to EMS. The made 3 attempts at IV unsuccessfully. She is on intermittent hemodialysis with her last dose being yesterday, Wednesday, and Wednesday. She follows with Mateusz Montes at [facility]. She was recently put on amoxicillin or Augmentin for her wound care of her chronic right heel pressure ulcer which is cared for by Simon. She is currently debriding the wound with biweekly Silvadene dressing changes. She refuses to follow with wound care locally. She told EMS she did not really want to come to the hospital because she did not want to be transferred to [place]. She has a history of asthma and occasionally takes breathing treatments but has not needed them recently. She's not having any wheezing. No increased redness or swelling in either leg. She is a diabetic and her blood sugars usually run around 80 fasting however the last couple days they've been 180 which is unusual for her. (MONTANA SOLIS) Allergies and Home Medications Allergies Coded Allergies: lisinopril (Verified Allergy, Mild, 12/29/16) sulfamethoxazole (Verified Allergy, Mild, 12/29/16) trimethoprim (Verified Allergy, Mild, 12/29/16) vancomycin (Verified Allergy, Mild, 12/29/16) clopidogrel (Unverified Allergy, Unknown, BLEEDING, 04/24/16) gabapentin (Unverified Allergy, Unknown, 04/24/16) Home Medications Amitriptyline HCl 25 Mg Tablet, 75 MG PO HS, (Reported) TAKES 3 (25 MG) TABLETS Amlodipine Besylate 10 Mg Tablet, 10 MG PO HS, (Reported) Atenolol 50 Mg Tablet, 50 MG PO DAILY, (Reported) Atorvastatin Calcium 10 Mg Tablet, 10 MG PO HS Prescribed by: URMILA SUTHERLAND on 11/15/16 1008 Cholecalciferol (Vitamin D3) 2,000 Unit Capsule, 2,000 UNIT PO BID, (Reported) Cinnamon Bark 500 Mg Capsule, 500 MG PO BID, (Reported) Doxycycline Monohydrate 100 Mg Capsule, 100 MG PO BID, (Reported) Furosemide 40 Mg Tablet, 40 MG PO BID, (Reported) Insulin Detemir 100 U/Ml Vial, 10 U SQ HS, (Reported) Multivitamin 1 Each Tablet, 1 TAB PO DAILY, (Reported) Oxycodone Hcl 5 Mg Tablet, 5-10 MG PO QID PRN for PAIN, (Reported) TAKES 1-2 (5 MG) TABLETS, NO MORE THAN 4 TABS PER 24HR Pantoprazole Sod 40 Mg Tab, 40 MG PO DAILY, (Reported) Sennosides/Docusate Sodium 1 Each Tablet, 1 TAB PO BID, (Reported) Patient Home Medication List Home Medication List Reviewed: Yes (MONTANA SOLIS) Review of Systems Review of Systems Constitutional: No chills; fever, malaise; No weakness EENTM: No ear discharge, No ear pain Respiratory: cough; No short of breath, No wheezing Cardiovascular: No chest pain, No palpitations Gastrointestinal: No abdominal pain, No constipation, No diarrhea, No nausea Genitourinary: No discharge, No dysuria Musculoskeletal: No back pain, No joint pain (MONTANA SOLIS) All Other Systems Reviewed Negative Unless Noted: Yes (MONTANA SOLIS) Past Dvrwreu-Socbcm-Onstln Hx Patient Social History Alcohol Use: Denies Use Recreational Drug Use: No Smoking Status: Former Smoker Type Used: Cigarettes Former Smoker, Quit: Oct 25, 1980 2nd Hand Smoke Exposure: No Recent Hopitalizations: No (hysterectomy 2005) Physical Abuse: No Sexual Abuse: No Fear: No (MONTANA SOLIS) Immunizations Up To Date Tetanus Booster (TDap): Unknown PED Vaccines UTD: No Date of Pneumonia Vaccine: Jun 25, 2014 Date of Influenza Vaccine: Jul 25, 2016 (MONTANA SOLIS) Seasonal Allergies Seasonal Allergies: No (MONTANA SOLIS) Past Medical History Surgeries: Yes (c-sectionsx2, cholesectomy, carpel tunnel releasex2, hysterectomy, caract r) Eye Surgery, Gallbladder, Hysterectomy, Oophorectomy, Orthopedic, Vascular Surgery Respiratory: Yes Asthma Cardiac: Yes (NEAR SYNCOPAL EPISODES) Chronic Edema/Swelling, High Cholesterol, Hypertension, Peripheral Vascular Neurological: Yes (NEUROPATHY IN HANDS, FEET AND LEGS; STROKE WITH RIGHT ARM WEAKNESS) Neuropathy, Stroke 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 Disorders: Yes (2 MISCARRIAGES) Female 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 Disorders: Ovarian Cyst TARE MAN History: Hysterectomy, Menopausal Sexually Transmitted Disease: No Kidney Infection, Renal Failure, Dialysis Gastrointestinal: Yes Gastroesophageal Reflux Musculoskeletal: Yes Osteoporosis, Arthritis, Chronic Back Pain, Fractures Endocrine: Yes Diabetes, Insulin dep Cataract, Double Vision Hearing Impairment: Denies Cancer: Yes Melanoma Psychosocial: Yes Anxiety, Depression Integumentary: Yes (CHRONIC WOUND RIGHT FOOT/ANKLE) Blood Disorders: No Adverse Reaction/Blood Tranf: No (MONTANA SOLIS) Family Medical History Cancer G8 SISTER (breast cancer) Cataract 19 MOTHER Dementia 19 MOTHER Family history: Breast disease G8 SISTER (breast cancer) Family history: Diabetes mellitus 19 FATHER G8 SISTER Heart disease 19 MOTHER Parkinson's disease 19 MOTHER Physical Exam Vital Signs - First Documented 05/29/20 14:26 Temp 37.1 Pulse 80 Resp 20 B/P (MAP) 131/69 (89) Pulse Ox 100 O2 Delivery Nasal Cannula O2 Flow Rate 2.00 (CT DE ANDA MD) Capillary Refill : (MONTANA SOLIS) Height: 5'4.00" Weight: 160lbs. 0.0oz. [id number]; 28.00 BMI Method:Stated General Appearance: WD/WN, moderate distress Eyes: Bilateral Eye Normal Inspection, Bilateral Eye PERRL, Bilateral Eye EOMI HEENT: PERRL/EOMI, normal ENT inspection, pharynx normal Neck: non-tender, full range of motion, normal inspection Respiratory: no accessory muscle use, respiratory distress ([id number] with oxygen sats 85% on room air and 94-96% on 3 L by nasal cannula), rales (bilateral bases); No wheezing Cardiovascular: normal peripheral pulses, regular rate, rhythm, tachycardia (101) Gastrointestinal: normal bowel sounds, non tender, soft Neurologic/Psychiatric: alert, normal mood/affect, oriented x 3 Skin: normal color, warm/dry (MONTANA SOLIS) Focused Exam Lactate Level 05/29/20 14:40: Lactic Acid Level 1.42 (CT DE ANDA MD) Lactic Acid Level Laboratory Tests Test 05/29/20 14:40 Lactic Acid Level 1.42 MMOL/L (0.50-2.00) (CT DE ANDA MD) Progress/Results/Core Measures Suspected Sepsis SIRS Temperature: Pulse: Respiratory Rate: Laboratory Tests 05/29/20 14:40: White Blood Count 19.7H Blood Pressure / Mean: 05/29/20 14:40: Lactic Acid Level 1.42 Laboratory Tests 05/29/20 14:40: Creatinine 4.26H, INR Comment 1.1, Platelet Count 261, Total Bilirubin 0.4 (MONTANA SOLIS) Results/Orders Lab Results Laboratory Tests Test 05/29/20 14:40 05/29/20 15:38 Range/Units White Blood Count 19.7 H 4.3-11.0 10^3/uL Red Blood Count 3.90 L 4.35-5.85 10^6/uL Hemoglobin 11.2 L 11.5-16.0 G/DL Hematocrit 36 35-52 % Mean Corpuscular Volume 93 80-99 FL Mean Corpuscular Hemoglobin 29 25-34 PG Mean Corpuscular Hemoglobin Concent 31 L 32-36 G/DL Red Cell Distribution Width 16.3 H 10.0-14.5 % Platelet Count 261 130-400 10^3/uL Mean Platelet Volume 9.6 7.4-10.4 FL Neutrophils (%) (Auto) 91 H 42-75 % Lymphocytes (%) (Auto) 4 L 12-44 % Monocytes (%) (Auto) 5 0-12 % Eosinophils (%) (Auto) 0 0-10 % Basophils (%) (Auto) 0 0-10 % Neutrophils # (Auto) 17.9 H 1.8-7.8 X 10^3 Lymphocytes # (Auto) 0.7 L 1.0-4.0 X 10^3 Monocytes # (Auto) 1.0 0.0-1.0 X 10^3 Eosinophils # (Auto) 0.0 0.0-0.3 10^3/uL Basophils # (Auto) 0.0 0.0-0.1 10^3/uL Neutrophils % (Manual) 94 % Lymphocytes % (Manual) 1 % Monocytes % (Manual) 5 % Hypochromasia MODERATE Stomatocytes SLIGHT Rouleau SLIGHT Prothrombin Time 15.0 H 12.2-14.7 SEC INR Comment 1.1 0.8-1.4 Activated Partial Thromboplast Time 41 H 24-35 SEC D-Dimer 3.69 H 0.00-0.49 UG/ML Blood Gas Puncture Site R BRACH Blood Gas Patient Temperature 37.1 Arterial Blood pH 7.47 H 7.37-7.43 Arterial Blood Partial Pressure CO2 48 H 35-45 MMHG Arterial Blood Partial Pressure O2 106 H 79-93 MMHG Arterial Blood HCO3 34 H 23-27 MMOL/L Arterial Blood Total CO2 35.3 H 21.0-31.0 MMOL/L Arterial Blood Oxygen Saturation 98 94-100 % Arterial Blood Base Excess 9.7 H -2.5-2.5 MMOL/L Toribio Test YES-POS Blood Gas Ventilator Setting NO Blood Gas Inspired Oxygen 2L Sodium Level 135 135-145 MMOL/L Potassium Level 4.7 3.6-5.0 MMOL/L Chloride Level 92 L 98-107 MMOL/L Carbon Dioxide Level 29 21-32 MMOL/L Anion Gap 14 5-14 MMOL/L Blood Urea Nitrogen 33 H 7-18 MG/DL Creatinine 4.26 H 0.60-1.30 MG/DL Estimat Glomerular Filtration Rate 10 BUN/Creatinine Ratio 8 Glucose Level 170 H 70-105 MG/DL Lactic Acid Level 1.42 0.50-2.00 MMOL/L Calcium Level 9.5 8.5-10.1 MG/DL Corrected Calcium 10.0 8.5-10.1 MG/DL Total Bilirubin 0.4 0.1-1.0 MG/DL Aspartate Amino Transf (AST/SGOT) 22 5-34 U/L Alanine Aminotransferase (ALT/SGPT) 12 0-55 U/L Alkaline Phosphatase 79 40-136 U/L C-Reactive Protein High Sensitivity 17.46 H 0.00-0.50 MG/DL Total Protein 8.1 6.4-8.2 GM/DL Albumin 3.4 3.2-4.5 GM/DL Procalcitonin 0.98 H <0.10 NG/ML (CT DE ANDA MD) Medications Given in ED Current Medications Medications Dose Ordered Sig/Jericho Route Start Time Stop Time Status Last Admin Dose Admin Acetaminophen 650 mg ONCE ONCE PO 05/29/20 15:15 05/29/20 15:16 DC 05/29/20 15:53 650 MG Cefepime HCl 1000 mg/Sterile Water 10 ml @ 200 mls/hr ONCE ONCE IV 05/29/20 15:15 05/29/20 15:17 DC 05/29/20 15:32 200 MLS/HR Levofloxacin/ Dextrose 150 ml @ 100 mls/hr ONCE ONCE IV 05/29/20 16:00 05/29/20 17:29 DC 05/29/20 16:03 100 MLS/HR Sodium Chloride 500 ml @ 0 mls/hr Q0M ONCE IV 05/29/20 15:18 05/29/20 15:19 DC 05/29/20 15:52 0 MLS/HR (CT DE ANDA MD) Vital Signs/I&O 05/29/20 05/29/20 05/29/20 05/29/20 14:26 14:27 15:00 15:30 Temp 37.1 Pulse 80 80 83 Resp 20 20 20 B/P (MAP) 131/69 (89) 139/54 (82) 139/67 (91) Pulse Ox 100 96 94 O2 Delivery Nasal Cannula Nasal Cannula Nasal Cannula Nasal Cannula O2 Flow Rate 2.00 2.00 3.00 2.00 05/29/20 05/29/20 05/29/20 05/29/20 15:53 16:00 16:30 16:59 Temp 37.2 Pulse 76 83 79 Resp 18 20 20 B/P (MAP) 139/86 (103) 120/72 (88) 136/51 (79) Pulse Ox 94 96 94 O2 Delivery Nasal Cannula Nasal Cannula Nasal Cannula O2 Flow Rate 2.00 2.00 2.00 05/29/20 05/29/20 05/29/20 05/29/20 17:30 18:00 18:30 19:00 Pulse 72 70 70 68 Resp 18 18 18 18 B/P (MAP) 110/55 (73) 113/52 (72) 132/50 (77) 137/47 (77) Pulse Ox 100 99 98 98 O2 Delivery Nasal Cannula Nasal Cannula Nasal Cannula Nasal Cannula O2 Flow Rate 2.00 2.00 2.00 1.50 05/29/20 05/29/20 19:30 20:00 Pulse 69 67 Resp 16 16 B/P (MAP) 128/44 (72) 124/48 (73) Pulse Ox 99 98 O2 Delivery Nasal Cannula Nasal Cannula O2 Flow Rate 1.50 1.50 (CT DE ANDA MD) Vital Signs/I&O Capillary Refill : (MONTANA SOLIS) Progress Note #1: Time: 15:23 Progress Note Fever, shortness of breath and hypoxia. Suspect pneumonia possible fluid overload. We'll be very gentle start with 500 saline and cefepime and vancomycin. Her stated allergy to vancomycin is that it is what caused her kidney failure. Plan to swab her for COVID-19. Progress Note #2: Time: 15:51 Progress Note Patient has declined the vancomycin. We will replace it with Levaquin 750 mg IV 1. Patient is also adamant she does not want to stay any hospital. We do not have a way of getting her home on oxygen today and explained that to her. We have also informed her she would need to sign out AGAINST MEDICAL ADVICE she chooses to go home. We can still set her up for Levaquin by mouth outpatient if she does elect to go AGAINST MEDICAL ADVICE and encourage close follow-up with her primary care doctor. Progress Note #3: Time: 16:41 Progress Note Using a supported clinical decision making process the patient has decided to accept admission to hospital. (MONTANA SOLIS) Progress Note #1: Time: 18:45 Progress Note I have reevaluated the patient. She is currently comfortable and O2 sats in the 90s on oxygen. She is still agreeable to transfer and we are waiting on EMS availability. Monitor patient. Progress Note #2: Time: 21:51 Progress Note I have spoken with the apprenticeship consultant for [facility] and he has a crew available now and will transfer the patient. Dispatch notified. Patient to be transferred to [facility] in [place], [place]. Current vital signs blood pressure 120/53 with heart rate 74 and O2 sat 96% on 1 L currently. She is still agreeable to transfer. I definitely believe she benefits from transfer due to the pneumonia and a for dialysis. (CT DE ANDA MD) Diagnostic Imaging Diagonstic Imaging: Xray Plain Films/CT/US/NM/MRI: chest Comments Right middle lobe infiltrate consistent with pneumonia. Right pleural effusion mild. NAME: NAKUL MILLER REC#: [id number] PT STATUS: REG ER : 1945 PHYSICIAN: MONTANA SOLIS MD ADMIT DATE: 05/29/20/ER Signed Date of Exam:05/29/20 CHEST 1 VIEW, AP/PA ONLY INDICATION: Hypoxemia. EXAMINATION: Portable chest at 04:18 p.m. FINDINGS: There is right perihilar atelectasis. There is a small right pleural effusion. There is some right basilar infiltrate or atelectasis. IMPRESSION: Right basilar consolidation with a small effusion. This appears similar to prior study dated 04/01/2020. Dictated by: Dictated on workstation # [id number] Dict: 05/29/20 1635 Trans: 05/29/20 1658 [id number] Interpreted by: CT ROBIN MD Electronically signed by: CT ROBIN MD 05/29/20 1658 Reviewed: Reviewed by Me (MONTANA SOLIS) Departure Impression Primary Impression: Pneumonia Qualified Codes: J18.1 - Lobar pneumonia, unspecified organism Additional Impressions: Acute respiratory failure with hypoxemia End stage renal disease on dialysis COVID-19 PUI Disposition: 02 XFER SHT-TRM HOSP Condition: Stable Transfer Transfer Reason: Exceeds level of care (intermittent hemodialysis) Time Spoke to Accepting Phy: 17:35 Transfer Progress Notes 1635: Called [place], [place] and they report. They will call us back with a physician. 1735: Dr. Cleary accepts the patient to [facility]. COVID-19 testing pending. 1745: Bed #4004 and report number given. Transfer Facility: [place], [place] Method of Transfer: EMS (MONTANA SOLIS) Departure-Patient Inst. Referrals: SERGIO MONTES (PCP) Primary Care Physician [facility] (Family) Primary Care Physician MONTANA SOLIS May 29, 2020 15:18 CT DE ANDA MD May 29, 2020 21:53
[2020-05-29 15:27] LABS: ALBUMIN 3.4 GM/DL (3.2-4.5); BILIRUBIN,TOTAL 0.4 MG/DL (0.1-1.0); CALCIUM 9.5 MG/DL (8.5-10.1); CREATININE SERUM 4.26 MG/DL (0.60-1.30); POTASSIUM 4.7 MMOL/L (3.6-5.0); TOTAL PROTEIN 8.1 GM/DL (6.4-8.2)
[2020-05-29 15:41] LABS: FIBRIN DEGRADATION PRODUCTS 3.69 UG/ML (0.00-0.49); INR 1.1 (0.8-1.4)
[2020-05-29 15:49] LABS: HYPOCHROMASIA MODERATE; LYMPHOCYTES % (MANUAL) 1 %; MONOCYTES % (MANUAL) 5 %; NEUTROPHILS % (MANUAL) 94 %; ROULEAUX SLIGHT; STOMATOCYTES SLIGHT
[2020-05-29] MEDS ORDERED: LEVOFLOXACIN 750 MG/150 ML IV 150 ML IV ONE (16:00)
--- OUTSIDE RECORDS SUMMARY | 2020-05-29 16:03 | XMS REPORT | Clinical Summary ---
Author Author [facility] Organization [facility] Address Unknown Phone Unavailable Care Team Providers Care Merchandiser Name Role Phone Mingo Chang MD Unavailable Mauricio Messina MD PCP Dolly Acosta RN Unavailable Unavailable Latricia Alvarado APRN Unavailable Luis Enrique Matt MD Unavailable Unavailable Garland Quezada MD Unavailable Allison Mackenzie RN Unavailable Unavailable Dacia Fowler PARTY DEMONSTRATOR Unavailable Francisca Ventura DO Unavailable Yoel Ventura MD Unavailable Freddy Greenberg DO Unavailable Jaxon Piedra MD Unavailable Doreen Sharp MD Unavailable Babs Loza RN Unavailable Unavailable Mingo Mccall MD Unavailable Daniele Sarmiento MD Unavailable Patricia Gómez PARTY DEMONSTRATOR-RESTAURANT ATTENDANT Unavailable [phone] Lesa Sparrow MD Unavailable Gail Ahmadi MD [phone] Source Comments Some departments are not documenting in the electronic medical record. If you d o not see the information that you expected, contact Release of Information in Critical access hospital Information Management department at [phone] for further assistan ce in locating additional records.[facility] Allergies Comments Active Allergy Reactions Severity Noted [...] 40 mg tablet mouth daily. 5 Active tmxwrxbz-sfz-hewo-[id number] Take 2 Tabs 0 in (CENTRUM SILVER [...] concerns. C ontact office with questions at [phone] NWB. Tubigrip. Night splint at rest. OK for ROM to right knee. Full body PT as tolerated. Continue dressing changes to right heel wound as previously ordered Fu in 4 wks for xrays with Torsten Fall 04/24/2016 Syncope, near 04/24/2016 Closed fracture [...] on 04/29/2016 by Daniele Black MD at [facility] 458.932 / N/A / N/A Screw Bone 5mm 8mm 32mm Titanium Right: Leg SYNT HES Full Thread Femur Blunt Tip SYNTHES Implanted: Qty: 1 on 04/29/2016 by Daniele Black MD at [facility] 458.936 / N/A / N/A Screw Bone 5mm 8mm 36mm Titanium Right: Leg SYNT HES Full Thread Femur Blunt Tip SYNTHES Implanted: Qty: 1 on 04/29/2016 by Daniele Black MD at [facility] Results Not on filefrom Last 3 Months Insurance Type Payer Benefit Subscriber ID Effective Phone Address Plan / Dates Group Medicare HUMANA MEDICARE HUMANA xxxxxxxxx 2014-P CHOICE PPO resent [id number] AnandJosephine hopson Third Self 1945 [address] (Home) [place] [address] Liability Advance Directives Patient Networker Explanation Type Date Recorded Advance 05/28/2014 3:11 [...]
--- OUTSIDE RECORDS SUMMARY | 2020-05-29 16:05 | XMS REPORT ---
Author Author [employer] [facility] [employer] [facility] Address [address] [address] Care Team Providers Care Plug Stitcher Name Role Phone OLYA WILLIS Unavailable Unavailable RAHEL MUNOZ Unavailable HUERTER, OLYA Joaquin Unavailable HUERTER, OLYA Unavailable Unavailable HUERTER, OLYA F Unavailable HUERTER, OLYA F Unavailable RICKY VALENTIN Unavailable ERTER, OLYA Unavailable ERTER, OLYA Unavailable ERTER, OLYA Unavailable HUERTER, OLYA [...] Unavailable HUERTER, OLYA Unavailable SERGIO HANCOCK Unavailable HUERTER, OLYA Unavailable SERGIO HANCOCK Unavailable ERTER, OLYA Unavailable SERGIO HANCOCK Unavailable URMILA SUTHERLAND MD Unavailable Unavailable IRENE BRUCE MANAGER UI-C Unavailable Unavailable ALBA LICEA, OLYA Joaquin Unavailable Unavailable WEI DO, ALMA R Unavailable Unavailable VERONICA LICEA, RALPH M Unavailable Unavailable BARBIE DO, RICKY S Unavailable Unavailable CUCO LICEA, AHMED S Unavailable Unavailable CORTES LICEA, CLAUDY Unavailable Unavailable ESTUARDO RICHARDSON MUD TANK OPERATOR Unavailable Unavailable LA NENA PONCE MD Unavailable Unavailable NINFA LICEA, KAYLEE Rich Unavailable Unavailable NINFA LICEA, KAYLEE Rich Unavailable Unavailable RAHEL MUNOZ MD Unavailable Unavailable PEMA DO, LIANA K Unavailable Unavailable JENN DPM, INA Q Unavailable Unavailable IRENE BRUCE MANAGER UI-C Unavailable Unavailable URMILA SUTHERLAND MD Unavailable Unavailable ANIKA LICEA, IFEOMA Rae Unavailable Unavailable ANIKA LICEA, IFEOMA Rae Unavailable Unavailable MASHA LICEA, NAJMA Lee Unavailable Unavailable MARITA DO, IRENE K Unavailable Unavailable KATHLEEN LICEA, JD Garzon Unavailable Unavailable ANTHONY MARTIN MUD TANK OPERATOR Unavailable Unavailable ALBA, OLYA Unavailable HUERTER, OLYA Unavailable KARISSA, SERGIO [...] Unavailable Migration, Doctor Unavailable Unavailable IRENE BRUCE MANAGER UI-C Unavailable Unavailable CUCO LICEA, PRESTON Granados Unavailable Unavailable IFEOMA DONALDSON MD Unavailable Unavailable IFEOMA DONALDSON MD Unavailable Unavailable KOKO LICEA, URMILA Vallejo Unavailable Unavailable ESTUARDO RICHARDSON MUD TANK OPERATOR Unavailable Unavailable MARITA POWERS, IRENE K Unavailable Unavailable OLYA WILLIS MD Unavailable Unavailable WEI POWERS, ALMA Dill Unavailable Unavailable SERGIO HANCOCK BLACK AND WHITE PRINTER OPERATOR PCP NINFA LICEA, KAYLEE Rich Unavailable Unavailable NINFA LICEA, KAYLEE Rich Unavailable Unavailable PEMA POWERS, LIANA Lee Unavailable Unavailable RAHEL MUNOZ MD Unavailable Unavailable BARBIE POWERS, RICKY S Unavailable Unavailable IRENE BRUCE MANAGER UI-C Unavailable Unavailable KRIS LICEA, LA NENA Garzon Unavailable Unavailable ANTHONY MARTIN MUD TANK OPERATOR Unavailable Unavailable HADLEY LICEA, NATTY Weinstein Unavailable Unavailable OLYA WILLIS Unavailable Migration, Doctor Unavailable Unavailable SERGIO HANCOCK Unavailable SHEA MAYFIELD BLACK AND WHITE PRINTER OPERATOR Unavailable Unavailable KATHLEEN LICEA, JD Garzon Unavailable Unavailable JENN DPM, INA Samuels Unavailable Unavailable OLYA WILLIS Unavailable HUERTBARB, OLYA Unavailable Migration, Doctor Unavailable Unavailable OLYA WILLIS Unavailable HUERTBARB, OLYA Unavailable HUERTBARB, OLYA Unavailable HUERTBARB, OLYA Unavailable MINAERTBARB, OLYA Unavailable HUERTBARB, OLYA Unavailable ALBA, OLYA Unavailable Unavailable Unavailable CT DE ANDA MD Unavailable Unavailable SERGIO HANCOCK Unavailable Unavailable SERGIO BRANDT Unavailable Unavailable OLYA WILLIS Unavailable Unavailable YANCI HAMILTON, SUMI L Unavailable Unavailable Unavailable Unavailable Unavailable Unavailable Unavailable Unavailable Unavailable Unavailable Unavailable Unavailable Unavailable Unavailable Allergies Allergy Reported Allergen(s) Allergy Type Date of Reaction(s) Care Facility Classificati Onset Provider on NEGATED sulfamethoxazole Drug Allergy 12-29-2016 KAYLEE OCASIO Not (4 sources) Available ([id number]) Encounters Encounter Date Encounter Type Encounter Diagnosis Care Provider Facility Start: Patient encounter OLYA Joaquin [facility] 05-27-2020 procedure [facility] Start: Patient encounter SUMI PETE APRN [facility] 05-23-2020 procedure [facility] Start: Patient encounter OLYA Joaquin [facility] 05-09-2020 procedure [facility] 04-19-2020 procedure [facility] Start: Patient encounter SERGIO HANCOCK [facility] 04-09-2020 procedure [facility] Start: Emergency department CT DE ANDA MD [facility] 04-01-2020 patient visit [facility] End: 04-01-2020 Start: Patient encounter CT DE ANDA MD [facility] 04-01-2020 procedure [facility] Start: Patient encounter OLYA Joaquin [facility] 03-29-2020 procedure [facility] Start: Patient encounter OLYA Emani [facility] 02-23-2020 procedure [facility] Start: Patient encounter OLYA Joaquin [facility] 02-15-2020 procedure [facility] Start: Patient encounter OLYA Joaquin [facility] 02-01-2020 procedure [facility] Start: Patient encounter OLYA Replaced by [facility] 10-19-2019 procedure [facility] ([id number]) Start: Patient encounter OLAY Replaced by [facility] 10-05-2019 procedure [facility] ([id number]) Start: Patient encounter OLYA WILLIS [facility] 09-20-2019 procedure [facility] ([id number]) Start: Patient encounter LINDSAY MONTOYA [facility] 09-06-2019 procedure [facility] ([id number]) Start: Discharged Recurring SERGIO escoto [facility] 08-23-2019 [facility] End: 08-23-2019 Start: Patient encounter SERGIO DESIR [facility] is 08-23-2019 procedure [facility] ([id number]) End: 08-23-2019 Start: Patient encounter SERGIO DESIR [facility] is 08-18-2019 procedure [facility] ([id number]) Start: Patient encounter SERGIO DESIR [facility] is 08-11-2019 procedure [facility] ([id number]) Start: Patient encounter SERGIO HANCOCK VC [facility] is 08-04-2019 procedure [facility] ([id number]) Start: Patient encounter OLYA ALBA [facility] 08-03-2019 procedure [facility] ([id number]) Start: Patient encounter SERGIO DESIR [facility] is 07-28-2019 procedure [facility] ([id number]) Start: Patient encounter SERGIO DESIR [facility] 07-28-2019 [facility] ([id number]) Start: Patient encounter SERGIO DESIR [facility] is 07-21-2019 procedure [facility] ([id number]) Start: Patient encounter SERGIO DESIR [facility] 07-14-2019 procedure [facility] ([id number]) Start: Patient encounter SERGIO DESIR [facility] is 07-07-2019 procedure [facility] ([id number]) Start: Patient encounter OLYA Chen [facility] 07-06-2019 procedure [facility] ([id number]) Start: Patient encounter SERGIO EDSIR [facility] is 06-30-2019 [facility] ([id number]) Start: Registered Recurring SERGIO HANCOCK [facility] 06-30-2019 Work Phone: [facility] ([id number]) Start: Patient encounter SERGIO DESIR [facility] is 06-27-2019 procedure [facility] ([id number]) Start: Patient encounter SERGIO DESIR [facility] is 06-26-2019 procedure [facility] ([id number]) Start: Discharged Recurring SERGIO LOO KARISSA Elida ension [facility] 06-23-2019 Work Phone: [facility] ([id number]) End: 06-27-2019 Start: Patient encounter SERGIO DESIR [facility] is 06-23-2019 procedure [facility] ([id number]) End: 06-26-2019 Start: Patient encounter SERGIO DESIR [facility] is 06-23-2019 [facility] ([id number]) End: 06-25-2019 Start: Patient encounter OLYA Chen [facility] 06-20-2019 procedure [facility] ([id number]) Start: Patient encounter SERGIO DESIR [facility] is 06-14-2019 [facility] ([id number]) Start: Patient encounter SERGIO DESIR [facility] is 06-09-2019 procedure [facility] ([id number]) Start: Patient encounter OLYA WILLIS Community [facility] 06-06-2019 procedure [facility] ([id number]) Start: Patient encounter SERGIO DESIR [facility] 05-31-2019 procedure [facility] ([id number]) Start: Patient encounter SERGIO DESIR [facility] 05-24-2019 procedure [facility] ([id number]) Start: Patient encounter OLYA WILLIS Gustavo [facility] 05-23-2019 procedure [facility] ([id number]) Start: Patient encounter OLYA ENRIQUEZZIYAD [facility] 05-09-2019 procedure [facility] ([id number]) Start: Patient encounter SERGIO DESIR [facility] is 05-05-2019 procedure [facility] ([id number]) Start: Patient encounter SERGIO DESIR [facility] is 04-28-2019 [facility] ([id number]) Start: Patient encounter OLYA ENRIQUEZZIYAD [facility] 04-25-2019 procedure [facility] ([id number]) Start: Patient encounter SERGIO DESIR [facility] is 04-21-2019 procedure [facility] ([id number]) Start: Patient encounter SERGIO DESIR [facility] is 04-14-2019 procedure [facility] ([id number]) Start: Patient encounter OLYA ENRIQUEZZIYAD [facility] 04-12-2019 procedure [facility] ([id number]) Start: Patient encounter SERGIO DESIR [facility] is 04-07-2019 [facility] ([id number]) Start: Patient encounter OLYA WILLIS Gustavo [facility] 03-29-2019 procedure [facility] ([id number]) Start: Patient encounter SERGIO DESIR [facility] is 03-28-2019 procedure [facility] ([id number]) Start: Patient encounter LINDSAY Chen [facility] 03-17-2019 procedure [facility] ([id number]) Start: Patient encounter OLYA WILLIS [facility] 02-17-2019 procedure [facility] ([id number]) Start: Patient encounter OLYA WILLIS [facility] 01-13-2019 procedure [facility] ([id number]) Start: Patient encounter OLYA WILLIS [facility] 11-28-2018 procedure [facility] ([id number]) Start: Patient encounter OLYA WILLIS [facility] 11-02-2018 procedure [facility] ([id number]) Start: Patient encounter OLYA WILLIS [facility] 10-07-2018 procedure [facility] ([id number]) Start: Patient encounter OLYA WILLIS [facility] 09-16-2018 procedure [facility] ([id number]) Start: Emergency department 07-12-2018 patient visit End: 07-12-2018 Start: Patient encounter NA NA Not Availab le ([id number]) 07-12-2018 Start: Emergency department NATTY BUTCHER MD [facility] 07-12-2018 patient visit [facility] ([id number]) End: 07-12-2018 Start: Patient encounter OLYA WILLIS Not Availab le ([id number]) 05-13-2018 Start: Patient encounter OLYA WILLIS [facility] 03-29-2018 [facility] ([id number]) Start: Patient encounter OLYA WILLIS [facility] 03-25-2018 [facility] ([id number]) Start: Patient encounter OLYA WILLIS [facility] 12-23-2017 [facility] ([id number]) Start: Patient encounter IRENE TEO [facility] 11-09-2017 [facility] ([id number]) Start: Patient encounter PRESTON NORWOOD MD [facility] Vi a Lia 09-28-2017 [facility] ([id number]) Start: Patient encounter IRENE NEW Not Availab le ([id number]) 09-07-2017 End: 11-08-2017 Start: Patient encounter PRESTON NORWOOD MD [facility] Vi a Lia 08-24-2017 [facility] ([id number]) Start: Patient encounter OLYA WILLIS MD Not Avail able ([id number]) 08-21-2017 Start: Patient encounter OLYA WILLIS MD [facility] Via [facility] 08-21-2017 procedure [facility] ([id number]) Start: Patient encounter IRENE BRUCE Not Availab le ([id number]) 08-10-2017 Start: Patient encounter OLYA WILLIS MD Not Avail able ([id number]) 08-04-2017 Start: Patient encounter OLYA WILLIS MD [facility] 08-04-2017 procedure [facility] ([id number]) NEGATED Patient encounter IRENE NEW Not Availab le ([id number]) Start: 07-25-2017 Start: Patient encounter IRENE NEW Not Availab le ([id number]) 07-19-2017 Start: Patient encounter IRENE NEW Not Availab le ([id number]) 07-13-2017 End: 07-24-2017 Start: Patient encounter IRENE NEW [facility] 07-13-2017 procedure [facility] ([id number]) End: 07-23-2017 Start: Patient encounter ESTUARDO RICHARDSON Not Availab le ([id number]) 07-06-2017 Start: Patient encounter IRENE NEW Not Availab le ([id number]) 07-06-2017 procedure Start: Patient encounter PRESTON NORWOOD MD [facility] Vi a Lia 07-02-2017 procedure [facility] ([id number]) Start: Patient encounter IRENE NEW Not Availab le ([id number]) 06-29-2017 End: 07-05-2017 Start: Patient encounter ESTUARDO RICHARDSON [facility] 06-22-2017 procedure [facility] ([id number]) Start: Patient encounter ESTUARDO RICHARDSON [facility] 06-15-2017 procedure [facility] ([id number]) Start: Patient encounter PRESTON NORWOOD MD Not Av ailable ([id number]) 05-27-2017 Start: Patient encounter ESTUARDO RICHARDSON Not Availab le ([id number]) 05-25-2017 End: 05-25-2017 Start: Patient encounter ESTUARDO RICHARDSON [facility] 05-25-2017 procedure [facility] ([id number]) End: 05-25-2017 Start: Patient encounter ESTUARDO RICHARDSON [facility] 05-25-2017 procedure [facility] ([id number]) Start: Patient encounter IRENE NEW Not Availab le ([id number]) 05-18-2017 procedure Start: Patient encounter ESTUARDO DEBRA Not Availab le ([id number]) 05-18-2017 procedure Start: Patient encounter IRENE NEW Not Availab le ([id number]) 05-04-2017 procedure Start: Patient encounter ESTUARDO DEBRA Not Availab le ([id number]) 05-04-2017 End: 05-17-2017 Start: Patient encounter ESTUARDO RICHARDSON [facility] 05-04-2017 procedure [facility] ([id number]) End: 05-16-2017 Start: Patient encounter IRENE NEW Not Availab le ([id number]) 04-20-2017 procedure Start: Patient encounter ESTUARDO RICHARDSON Not Availab le ([id number]) 04-13-2017 procedure Start: Patient encounter IRENE NEW Not Availab le ([id number]) 04-06-2017 procedure Start: Patient encounter IRENE NEW Not Availab le ([id number]) 03-30-2017 procedure Start: Patient encounter ESTUARDO RICHARDSON Not Availab le ([id number]) 03-30-2017 procedure Start: Patient encounter IRENE NEW Not Availab le ([id number]) 03-30-2017 procedure Start: Patient encounter PRESTON NORWOOD MD [facility] Vi a Lia 03-25-2017 procedure [facility] ([id number]) Start: Patient encounter IRENE NEW Not Availab le ([id number]) 03-23-2017 End: 03-29-2017 Start: Patient encounter IRENE NEW [facility] 03-23-2017 procedure [facility] ([id number]) End: 03-28-2017 Start: Patient encounter IRENE NEW Not Availab le ([id number]) 03-09-2017 procedure Start: Patient encounter ESTUARDO RICHARDSON Not Availab le ([id number]) 03-04-2017 procedure Start: Patient encounter ESTUARDO RICHARDSON Not Availab le ([id number]) 02-16-2017 procedure Start: Patient encounter ESTUARDO RICHARDSON Not Availab le ([id number]) 02-16-2017 procedure Start: Patient encounter IRENE NEW Not Availab le ([id number]) 02-09-2017 procedure Start: Patient encounter ESTUARDO RICHARDSON Not Availab le ([id number]) 02-02-2017 End: 02-15-2017 Start: Patient encounter ESTUARDO RICHARDSON [facility] 02-02-2017 procedure [facility] ([id number]) End: 02-14-2017 Start: Patient encounter PRESTON NORWOOD MD [facility] Vi a Lia 01-28-2017 procedure [facility] ([id number]) Start: Patient encounter IRENE NEW Not Availab le ([id number]) 01-26-2017 procedure Start: Patient encounter ESTUARDO DEBRA Not Availab le ([id number]) 01-19-2017 procedure Start: Patient encounter IRENE BRUCE Not Availab le ([id number]) 01-12-2017 procedure Start: Patient encounter PRESTON NORWOOD MD Not Av ailable ([id number]) 01-04-2017 Start: Patient encounter PRESTON NORWOOD MD [facility] Vi [facility] 01-04-2017 procedure [facility] ([id number]) Start: Patient encounter ESTUARDO DEBRA Not Availab le ([id number]) 12-29-2016 procedure Start: Patient encounter PRESTON NORWOOD MD Not Av ailable ([id number]) 12-10-2016 Start: Patient encounter PRESTON NORWOOD MD [facility] Vi a [facility] 12-10-2016 procedure [facility] ([id number]) Start: Patient encounter ESTUARDO DEBRA Not Availab le ([id number]) 12-08-2016 procedure Start: Patient encounter ESTUARDO DEBRA Not Availab le ([id number]) 12-01-2016 procedure Start: Patient encounter URMILA SUTHERLAND MD [facility] 11-17-2016 [facility] ([id number]) Start: Patient encounter ESTUARDO DEBRA Not Availab le ([id number]) 11-17-2016 procedure Start: Evaluation and URMILA SUTHERLAND MD Not Available ([id number]) 11-15-2016 management of inpatient End: 11-15-2016 Start: Patient encounter URMILA SUTHERLAND MD Not Availa ble ([id number]) 11-11-2016 End: 11-15-2016 Start: Patient encounter ESTUARDO DEBRA Not Availab le ([id number]) 11-10-2016 End: 11-16-2016 Start: Patient encounter ESTUARDO RICHARDSON [facility] is 11-10-2016 procedure [facility] ([id number]) End: 11-15-2016 Start: Patient encounter URMILA SUTHERLAND MD [facility] Via [facility]isti 11-09-2016 [facility] ([id number]) Start: Patient encounter ESTUARDO DEBRA Not Availab le ([id number]) 11-03-2016 procedure Start: Patient encounter ESTUARDO DEBRA Not Availab le ([id number]) 10-27-2016 procedure Start: Patient encounter ESTUARDO DEBRA Not Availab le ([id number]) 10-14-2016 Start: Patient encounter ESTUARDO DEBRA [facility] is 10-14-2016 procedure [facility] ([id number]) Start: Patient encounter IRENE NEW Not Availab le ([id number]) 10-09-2016 Start: Patient encounter ESTUARDO RICHARDSON Not Availab le ([id number]) 09-03-2016 Start: Patient encounter ESTUARDO RICHARDSON [facility] 09-03-2016 [facility] ([id number]) Start: Patient encounter PRESTON NORWOOD MD Not Av ailable ([id number]) 08-17-2016 Start: Patient encounter PRESTON NORWOOD MD [facility] 08-17-2016 [facility] ([id number]) Start: Patient encounter IRENE BRUCE Not Availab le ([id number]) 08-10-2016 End: 10-08-2016 Start: Patient encounter IRENE BRUCE [facility] 08-10-2016 [facility] ([id number]) End: 10-07-2016 Start: Patient encounter PRESTON NORWOOD MD Not Av ailable ([id number]) 06-08-2016 Start: Patient encounter OLYA WILLIS MD Not Avail able ([id number]) 06-01-2016 Start: Patient encounter OLYA WILLIS MD [facility] 06-01-2016 [facility] ([id number]) Start: Emergency department IRENE KIRKLAND DO [facility] 04-24-2016 patient visit [facility] ([id number]) End: 04-24-2016 Start: Patient encounter ESTUARDO RICHARDSON Not Availab le ([id number]) 04-23-2016 End: 04-24-2016 Start: Patient encounter ESTUARDO RICHARDSON Not Availab le ([id number]) 02-20-2016 End: 02-26-2016 Start: Patient encounter ESTUARDO RICHARDSON [facility] 02-20-2016 [facility] ([id number]) End: 02-25-2016 Start: Patient encounter OLYA WILLIS MD Not Avail able ([id number]) 01-27-2016 Start: Patient encounter OLYA WILLIS MD [facility] 01-27-2016 [facility] ([id number]) Start: Patient encounter IRENE BRUCE Not Availab le ([id number]) 01-07-2016 Start: Patient encounter ESTUARDO RICHARDSON Not Availab le ([id number]) 11-28-2015 Start: Patient encounter LA NENA PONCE MD Not Availab le ([id number]) 11-18-2015 Start: Patient encounter LA NENA PONCE MD [facility] 11-18-2015 [facility] ([id number]) Start: Patient encounter INA BARAJAS DPM Not Availa ble ([id number]) 09-06-2015 Start: Patient encounter INA BARAJAS DPM [facility] 09-06-2015 [facility] ([id number]) Start: Patient encounter OLYA WILLIS MD Not Avail able ([id number]) 04-11-2015 Start: Patient encounter OLYA WILLIS MD [facility] 04-11-2015 [facility] ([id number]) Start: Patient encounter OLYA WILLIS MD Not Avail able ([id number]) 04-04-2015 Start: Patient encounter OLYA WILLIS MD [facility] 04-04-2015 [facility] ([id number]) Start: Patient encounter OLYA WILLIS MD Not Avail able ([id number]) 03-27-2015 Start: Patient encounter OLYA WILLIS MD [facility] 03-27-2015 [facility] ([id number]) Start: Patient encounter OLYA WILLIS MD [facility] 03-20-2015 [facility] ([id number]) Start: Patient encounter OLYA WILLIS MD Not Avail able ([id number]) 03-11-2015 Start: Patient encounter OLYA WILLIS MD [facility] 03-06-2015 [facility] ([id number]) Start: Patient encounter OLYA WILLIS MD Not Avail able ([id number]) 01-31-2015 Start: Patient encounter OLYA WILLIS MD [facility] 01-31-2015 [facility] ([id number]) Start: Patient encounter OLYA WILLIS MD Not Avail able ([id number]) 01-24-2015 Start: Patient encounter OLYA WILLIS MD [facility] 01-19-2015 [facility] ([id number]) Start: Patient encounter OLYA WILLIS MD Not Avail able ([id number]) 01-18-2015 Start: Patient encounter OLYA WILLIS MD [facility] 01-18-2015 [facility] ([id number]) Start: Patient encounter OLYA WILLIS MD Not Avail able ([id number]) 01-17-2015 Start: Patient encounter OLYA WILLIS MD [facility] 01-17-2015 [facility] ([id number]) Start: Patient encounter RAHEL MUNOZ MD Not Avail able ([id number]) 01-11-2015 End: 03-04-2015 Start: Patient encounter RAHEL MUNOZ MD [facility] 01-11-2015 [facility] ([id number]) End: 03-04-2015 Start: Patient encounter ALMA CARVAJAL DO Not Avai lable ([id number]) 01-07-2015 Start: Patient encounter ALMA CARVAJAL DO [facility] 01-07-2015 [facility] ([id number]) Start: Patient encounter ALMA CARVAJAL DO Not Avai lable ([id number]) 01-01-2015 Start: Patient encounter ALMA CARVAJAL DO [facility] 01-01-2015 [facility] ([id number]) Start: Patient encounter OLYA WILLIS MD Not Avail able ([id number]) 12-13-2014 End: 03-05-2015 Start: Patient encounter RAHEL MUNOZ MD Not Avail able ([id number]) 11-19-2014 End: 11-20-2014 Start: Patient encounter RAHEL MUNOZ MD [facility] 11-19-2014 [facility] ([id number]) End: 11-20-2014 Start: Patient encounter IFEOMA ODNALDSON MD Not Availa ble ([id number]) 05-14-2014 End: 05-14-2014 Start: Patient encounter IFEOMA DONALDSON MD [facility] 05-14-2014 [facility] ([id number]) End: 05-14-2014 Start: Evaluation and OLYA WILLIS MD Not Availabl e ([id number]) 04-11-2014 management of inpatient End: 04-15-2014 Start: Patient encounter RICKY POOLEER DO Not Available ([id number]) 02-21-2014 Start: Patient encounter RICKY TAMIKONDER DO [facility] 02-21-2014 [facility] ([id number]) Start: Patient encounter SHEA VANBECELAERE Not A vailable ([id number]) 02-12-2014 Start: Patient encounter SHEA VANBECELAERE [facility] 02-12-2014 [facility] ([id number]) Start: Emergency department JD WANG MD Not Debbie ilable ([id number]) 11-12-2013 patient visit End: 11-12-2013 Start: Emergency department JD WANG MD [facility] 11-11-2013 patient visit [facility] ([id number]) End: 11-11-2013 Start: Patient encounter NAJMA FLANAGAN MD Not Availa ble ([id number]) 09-19-2013 End: 10-05-2013 Start: Patient encounter RICKY ORENDER DO Not Available ([id number]) 05-11-2013 End: 06-19-2013 Start: Patient encounter RICKY ORENDER DO Not Available ([id number]) 04-21-2013 End: 04-22-2013 Start: Patient encounter RALPH MARTIN MD Not Avai lable ([id number]) 02-20-2013 End: 02-20-2013 Start: Patient encounter RICKY ORENDER DO Not Available ([id number]) 02-16-2013 End: 03-08-2013 Start: Patient encounter RALPH MARTIN MD Not Avai lable ([id number]) 02-15-2013 Start: Patient encounter RICKY ORENDER DO Not Available ([id number]) 01-03-2013 Start: Patient encounter RICKY ORENDER DO Not Available ([id number]) 10-04-2012 End: 10-04-2012 Start: Patient encounter RICKY ORENDER DO Not Available ([id number]) 09-20-2012 End: 09-20-2012 Start: Patient encounter RAHEL CHEEMA MD Not Avai lable ([id number]) 12-24-2011 procedure End: 01-21-2012 Encounter for general PRESTON NORWOOD MD [facility] examination without ([id number]) abnormal findings Pre-operative RALPH MARTIN MD Not Available (0000 0) examination, unspecified Medical Equipment Procedure Code Equipment Code Equipment Original Equipment Iden tifier Dates Text use with insulin Start: 07-28-2016 check blood sugar Start: 12-01-2016 USE WITH INSULIN PENS THREE TIMES A DAY use with insulin Start: 07-28-2016 check blood sugar Start: 12-01-2016 USE WITH INSULIN PENS THREE TIMES A DAY check blood sugar Start: 12-01-2016 as directed as directed Start: 10-14-2018 use with insulin Start: 07-28-2016 check blood sugar Start: 12-01-2016 as directed USE WITH INSULIN PENS THREE TIMES A DAY USE WITH INSULIN PENS THREE TIMES A DAY Goals Date Patient Goal Desired Activity/St ate Immunizations Immunizatio Immunization Notes Care Provider Facility n Date 11-27-2019 influenza, injectable, NA [id number] 11-27-2019 pneumococcal conjugate NA NA [facility] vaccine, 13 valent [facility] ([id number]) 11-27-2019 tetanus toxoid, NA [facility] reduced diphtheria [facility] toxoid, and acellular [facility] pertussis vaccine, ([id number]) adsorbed 11-27-2019 zoster vaccine NA [facility] recombinant [facility] ([id number]) 07-12-2018 SERGIO Barron [facility] ([id number]) Interventions No Information Medications Current Medications Medication Drug Dates Sig Sig (Original) Class(es) (Normalized) Accu-Chek Niru Plus - Accu-Chek Niru Plus - SARAH T BLOOD SUGAR (1 source) THREE TIMES A DAY Active Accu-Chek Niru Plus - Accu-Chek Niru Plus - SARAH T BLOOD SUGAR (1 source) THREE TIMES A DAY Active Accu-Chek Niru w/Device Start: Accu-Chek Av yaritza w/Device as directed (1 source) 10-20-2018 lifetime Active Blood Glucose Monitor Start: Blood Glucose M onitor System w/Device System w/Device 10-06-2018 subcutaneously chec k blood sugars three (1 source) times daily as directed Sep, Active Blood Glucose Monitor Start: Blood Glucose M onitor System w/Device System w/Device 10-06-2018 subcutaneously chec k blood sugars three (1 source) times daily as directed Sep, Active Humalog KwikPen 100 Start: inject 5 [IU] Humalog K wikPen 100 unit/mL inject 5 unit/mL 08-03-2014 by subcutaneous Units by Subcu taneous route as per (1 source) injection once insulin sliding sca le protocol 3 times per day Jul, Active Leg Cramp Relief - Leg Cramp Relief - as direc lore Active (1 source) Sodium polystyrene Start: take 15 g by Kayexalate 15 Grams by Oral route 2 sulfonate 01-17-2015 mouth twice times per day 2 6 Dec, 2014 Active (1 source) daily Vitamin D 1000 UNIT take 5 tablets Vitamin D 1000 U NIT Orally Once a day 5 (1 source) by mouth once tablet 24h Active daily Completed/Discontinued Medications Medication Drug Dates Sig Sig (Original) Class(es) (Normalized) Docusate Sodium End: Docusate Sodium Dis continued 100 ORAL (1 source) 11-11-2016 Twice A Day November 11, 2016 Docusate Sodium 100 Mg End: Docusate Sodiu m 100 Mg Capsule, 100 Mg Capsule, 100 Mg Oral 11-11-2016 Oral Twice A Day Discontinued (1 source) Insulin Human Lispro Start: Insulin Human Li spro Discontinued 0 (2 sources) 05-09-2014 SUBCUTANEOUS Fastin g & 2 Hrs Post Prandial May 09, 2014 9:45am End: August 14, 2014 08-14-2014 Start: 04-15-2014 Insulin Human End: 08-14-2014 Lispro Discontinued 14 SUBCUTANEOUS Before Meals April 15, 2014 4:35pm August 14, 2014 Multivitamin preparation Multivitamin Active 1 OR AL Daily (1 source) Agcan-7-Sqcr Ethyl End: Qtamm-5-Xqra Ethyl Esters Discontinued 1 Esters 04-15-2014 ORAL Twice A Day [facility] 2013 (1 source) Koiss-2-Fohv Ethyl End: Vaekh-2-Cefl Ethyl Esters (Lovaza) 1 Gm Esters (Lovaza) 1 Gm 04-15-2014 Capsule, 1 Gm Or al Twice A Day Capsule, 1 Gm Oral Discontinued (1 source) Vancomycin Hcl/Normal Start: Vancomycin Hcl/ Normal Saline Saline 05-09-2014 Discontinued 1.25 I NTRAVENOUS Every 24 (1 source) Hours May 09, 2014 9:45am July End: 201308-14-2014 Payers Date Payer Normalized Payer [id number] Plan of Treatment Date Care Activity Detail Author Start: (ACUTE) Acute Visit [facility] 11-02-2018 Start: (ACUTE) Acute Visit [facility] 10-07-2018 Start: (ACUTE) Acute Visit [facility] 09-16-2018 Start: (ACUTE) Acute Visit [facility] 08-12-2018 Problems Active Problems Problem Problem Date Last Documented Episodic/Chr Provider Classificati Recorded Date onic on Acute Cerebral artery occlusion, Chronic J ACQUELINE cerebrovascu unspecified with cerebral ORENDER D O lar disease infarction (4 sources) Allergic Allergy status to analgesic agent 04-03-2020 Episo dic NATTY reactions status ; Translations: [Allergy BRU SAMIR (26 sources) status to sulfonamides status] Anxiety Anxiety disorder, unspecified 04-03-2020 Chronic NATTY disorders HADLEY (11 sources) Cardiac Bradycardia, unspecified ; Chronic Halina HANCOCK dysrhythmias Translations: [Bradycardia] (3 sources) Cardiac Palpitations ; Translations: Episodic BASHAR KOKO dysrhythmias [Bradycardia] (16 sources) Congestive Heart failure, unspecified Chronic A HMED heart ABOUL-MAGD failure; MD nonhypertens susie (7 sources) 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 KOKO atherosclero [place] coronary artery with MD sis and unspecified angina pectoris other heart disease (14 sources) Deficiency Anemia in chronic kidney disease Chronic IRENE NEW and other anemia (20 sources) Deficiency Anemia ; Translations: [Anemia] Episodic SERGIO HANCOCK and other anemia (2 sources) Diabetes 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, unspec ified ; with Translations: [Type 2 diabe sarah complication mellitus with other diabeti c kidney s complication] (5 sources) Diseases of Elevated white blood cell count, Chronic IRENE NEW white blood unspecified cells (15 sources) Disorders of Hyperlipidemia, unspecified ; 04-03-2020 Chronic BASHAR KOKO lipid Translations: [Other and MD metabolism unspecified hyperlipidemia] (24 sources) Diverticulos Diverticulosis of colon (without Chronic RALPH is and mention of hemorrhage) VERONICA LICEA diverticulit is (4 sources) Gastroduoden Gastric ulcer, unspecified as acute Chronic RALPH al ulcer or chronic, without mention of HEMA LAW MD (except hemorrhage or perforation, without hemorrhage) mention of obstruction (4 sources) Hypertension Hypertensive heart disease with 04-03-2020 Chroni c BASHAR KOKO with heart failure ; Translations: MD complication [Hypertensive heart and chr onic s and kidney disease without hear t secondary failure, with stage 1 throu gh stage hypertension 4 chronic kidney disease, o r (20 sources) unspecified chronic kidney disease] 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, 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 ; Translation s: [Late lar disease effects of cerebrovascular disease, (20 sources) hemiplegia affecting unspec ified side] Mood Depressive disorder, not elsewhere 04-03-2020 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 jerry ANTHONY MARTIN disorders classified ; Translations: [Major (14 sources) depressive disorder, single episode, unspecified] Nutritional Vitamin D deficiency, unspecified Chronic AHMED deficiencies ABOUL-MAGD (14 sources) Occlusion or Occlusion and stenosis of carotid Chronic RICKY stenosis of artery without mention of cerebral ORENDER DO precerebral infarction ; Translations: arteries [Occlusion and stenosis of multiple (20 sources) and bilateral precerebral a rteries without mention of cerebral infarction] Open wounds Wound dehiscence Episodic SERGIO CAMPBELL L of head; neck; and trunk (1 source) Osteoarthrit Primary osteoarthritis, right 04-24-2020 Chronic SERGIO 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 (5 sources) Osteoporosis Age-related osteoporosis without 04-03-2020 Chron ic ANTHONY MARTIN (20 sources) current pathological fractu re ; Translations: [Osteoporosis, unspecified] Other exterminator helper (current) use of insulin 04-03-2020 Epis odic IRENE MARITA DO aftercare (20 sources) Other and Cardiomegaly Chronic BASHAR KOKO ill-defined MD heart disease (12 sources) Other and Cardiomegaly Chronic RICKY ill-defined ORENDER DO heart disease (4 sources) Other Other joint replacement Chronic ROOPA ICA connective CARVAJAL DO tissue disease (12 sources) Other Secondary hyperparathyroidism of Chronic AHMED diseases of renal origin ABOALIRIO-D kidney and MD ureters (9 sources) Other Renal insufficiency SERGIO HANCOCK diseases of kidney and ureters (1 source) Other Chronic venous hypertension Chronic ESTAURDO diseases of (idiopathic) with ulcer of left AND ERSON veins and lower extremity lymphatics (3 sources) Other lower Hypoxia ; Translations: [Hypoxia] Episodic SERGIO HANCOCK respiratory disease (2 sources) Other Unspecified hereditary and Chronic N ITIN FLANAGAN nervous idiopathic peripheral neuropathy MD system disorders (4 sources) Other Polyneuropathy, unspecified Chronic IRENE MARITA DO nervous system disorders (5 sources) Other Peripheral nerve disease Chronic MICHELLE HANCOCK nervous system disorders (1 source) Other Personal history of other malignant 04-03-[address] non-epitheli neoplasm of skin ADILSON LICEA al cancer of skin (8 sources) Other Arthropathy, unspecified, site Chronic ANTHONY MARTIN non-traumati unspecified c joint disorders (5 sources) Other Other disorders of plasma-protein Chronic AHMED nutritional; metabolism, not elsewhere ABOUL-MAG D endocrine; classified MD and metabolic disorders (5 sources) Pneumonia Pneumonia (except that caused by WI ALESIAROSEMARIEEverardo HANCOCK (except that tuberculosis or sexually caused by transmitted disease) tuberculosis or sexually transmitted disease) (1 source) Residual Obstructive sleep apnea Chronic HARSHAD UELINE codes; (adult)(pediatric) ORENDER DO unclassified (12 sources) Residual Unspecified sleep apnea Chronic JULEE R MARTIN codes; unclassified (4 sources) Residual Altered mental status ; Episodic WILL REUBEN HANCOCK codes; Translations: [Altered ment al unclassified status] (2 sources) Residual Altered mental status, unspecified 04-03-2020 Epis odic NATTY codes; HADLEY unclassified (10 sources) Residual Family history of ischemic heart 04-03-2020 Episod ic NATTY codes; disease and other diseases of the B PAYTON unclassified circulatory system (9 sources) Residual Family history of malignant 04-03-2020 Episodic NATTY codes; neoplasm of breast HADLEY zengified (9 sources) Screening Personal history of tobacco use ; 04-03-2020 Episo dic OLYA and history Translations: [Personal history of ALBA LICEA of mental nicotine dependence] health and substance abuse codes (25 sources) Sprains and Strain of other muscles, fascia and 04-24-2020 Epi sodic SERGIO HANCOCK strains tendons at shoulder and upper arm 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) level, right arm, initial e ncounter Transient Unspecified transient cerebral Chronic RICKY cerebral ischemia ORENDER DO ischemia (4 sources) Past or Other Problems Problem Problem Date Last Documented Episodic/Chr Provider Classificati Recorded Date onic on Abdominal Abdominal pain, epigastric Episodic X AVIER pain VERONICA LICEA (4 sources) Acute Acute posthemorrhagic anemia Kim DOBSON posthemorrha ALBA LICEA gic anemia (9 sources) Adverse Other specified procedures as the Episodic ANTHONY MARTIN effects of cause of abnormal reaction of medical care patient, or of later compli cation, (1 source) without mention of misadven ture at time of procedure Adverse Other specified procedures as the P ETER MARTIN effects of cause of abnormal reaction of medical care patient, or of later compli cation, (4 sources) without mention of misadven ture at time of procedure Adverse Other opiates and related narcotics OLYA effects of causing adverse effects in ALBA LICEA medical therapeutic use drugs (5 sources) Bacterial Streptococcus infection in Episodic D VIRI REVEAL infection; conditions classified elsewhere and MD unspecified of unspecified site, strept ococcus, site group D [Enterococcus] (4 sources) Complication Infection and inflammatory reaction Episodic IFEOMA REVEAL of device; due to internal joint prosthesis ; MD implant or Translations: [Infection an d graft inflammatory reaction due t o other (20 sources) internal orthopedic device, implant, and graft] Conditions Dizziness and giddiness Episodic PATRIC WANG associated MD with dizziness or vertigo (5 sources) Deficiency Anemia, unspecified Episodic KALYEE BOLES SEN and other MD anemia (8 sources) Deficiency Anemia, unspecified Episodic AHMED and other ABOUL-MAGD anemia MD (21 sources) External Fall on same level from slipping, Episodic OLYA cause codes: tripping and stumbling without LIZZ RAMIREZ MD Fall subsequent striking against object, (2 sources) initial encounter ; Transla tions: [Unspecified fall] External Unspecified fall ; Translations: DA VID cause codes: [Fall on same level from slipping, ALBA LICEA Fall tripping and stumbling with out (8 sources) subsequent striking against object, initial encounter] External Unspecified place in unspecified Episodic IRENE MARITA DO cause codes: non-institutional (private) Place of residence as the place of occurrence occurrence of the external cause (1 source) External Unspecified place in unspecified LI SA MARITA DO cause codes: non-institutional (private) Place of residence as the place of occurrence occurrence of the external cause (4 sources) External Other external cause status ; Episodic OLYA cause codes: Translations: [Other external cause ALBA LICEA Unspecified status] (2 sources) External Other external cause status ; OLYA cause codes: Translations: [Other external cause ALBA LICEA Unspecified status] (8 sources) Fracture of Trimalleolar fracture, closed ; Episodic OLYA lower limb Translations: [Other fracture of MINA LACKEY MD (18 sources) upper end of right tibia, i nitial encounter for closed fracture] Genitourinar Other proteinuria ; Translations: Episodic IRENE NEW y symptoms [Personal history of other diseases and of urinary system] ill-defined conditions (21 sources) Melanomas of Personal history of malignant Episodic NATTY skin melanoma of skin HADLEY (3 sources) Mood Major depressive disorder, single N A NA disorders episode, unspecified (2 sources) Nonspecific Chest pain, unspecified Episodic BASH AR KOKO chest pain (14 sources) Other Long-term (current) use of Episodic J ESSICA aftercare antibiotics CARVAJAL DO (16 sources) Other Long-term (current) use of insulin Episodic RICKY aftercare ORENDER DO (21 sources) Other Encounter for therapeutic drug Episodic ALMA aftercare monitoring WEI POWERS (4 sources) Other Care involving other specified Episodic KAYLEE OCASIO aftercare rehabilitation procedure (8 sources) Other Other aftercare involving internal Episodic KAYLEE OCASIO aftercare fixation device (4 sources) Other 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 Episodic BASHAR KOKO aftercare therapy (8 sources) Other exterminator helper (current) use of Episodic J OSHUA aftercare antithrombotics/antiplatelets SOFIA VILLEGAS (3 sources) Other Encounter for occupational therapy Episodic RAHEL aftercare ANETTE LICEA (14 sources) Other Long-term (current) use of other Episodic PETER MARTIN aftercare medications (5 sources) Other Aftercare following surgery for Episodic RAHEL aftercare injury and trauma ANETTE LICEA (2 sources) Other Personal history of transient Episodic NATTY circulatory ischemic attack (TIA), and cerebral BRUEGGEMANN disease infarction without residual MD (3 sources) deficits Other Personal history of transient Episodic PETER MARTIN circulatory ischemic attack (TIA), and cerebral disease infarction without residual (9 sources) deficits Other Soft tissue disorder, unspecified Episodic OLYA connective ALBA LICEA tissue disease (5 sources) Other Pain in right foot Episodic LA NENA HORT ON connective MD tissue disease (4 sources) Other Muscle weakness (generalized) Episodic RICKY connective ORENDER DO tissue disease (9 sources) Other Arthrodesis status Episodic IRENE MARITA DO connective tissue disease (5 sources) Other Other symptoms referable to joint, Episodic RAHEL connective shoulder region ANETTE LICEA tissue disease (2 sources) Other Unspecified disorder of kidney and Episodic OLYA diseases of ureter ALBA LICEA kidney and ureters (5 sources) Other Aftercare for healing traumatic Episodic KAYLEE OCASIO fractures fracture of other bone MD (21 sources) Other Constipation, unspecified Episodic ER IC OCASIO gastrointest MD inal disorders (13 sources) Other Other constipation Episodic PETER BAT ES gastrointest inal disorders (10 sources) Other History of fall Episodic OLYA injuries and ALBA LICEA conditions due to external causes (9 sources) Other Abnormality of gait Episodic KAYLEE BOLES SEN nervous MD system disorders (4 sources) Other Abnormal involuntary movements Episodic PETER MARTIN nervous system disorders (5 sources) Other Unspecified mononeuropathy of BASHA R KOKO nervous bilateral lower limbs MD system disorders (14 sources) Other Unspecified mononeuropathy of BASHA R KOKO nervous bilateral upper limbs MD system disorders (14 sources) Other Pain in joint, shoulder region Episodic JD WANG non-traumati MD hoover joint disorders (5 sources) Other Abnormal findings on diagnostic Episodic SHEA screening imaging of other parts of [facility] for musculoskeletal system ; suspected Translations: [Other (abnor mal) conditions findings on radiological (not mental examination of breast] disorders or infectious disease) (16 sources) Other skin Other specified disorders of the Episodic INA JENN disorders skin and subcutaneous tissue DPM (5 sources) Residual Edema ; Translations: [Unspecified Episodic ANTHONY MARTIN codes; sleep apnea] unclassified (5 sources) Residual Localized edema Episodic OLYA codes; ALBA LICEA unclassified (1 source) Residual Generalized edema Episodic ESTUARDO codes; DEBRA unclassified (2 sources) Residual Acquired absence of both cervix and Episodic NATTY codes; uterus BRUEGGEMANN unclassified (1 source) Residual Acquired absence of other specified Episodic NATTY codes; parts of digestive tract LUPEEGGEBRANDEE N unclassified (1 source) Residual Personal history of other Episodic RONNA SHUA codes; complications of , BRUEGDAV FINN unclassified childbirth and the puerperium (1 source) Unclassified Pure hypercholesterolemia, NA NA (2 sources) unspecified Urinary Urinary tract infection, site not Episodic OLYA tract specified ALBA LICEA infections (9 sources) Procedures Date Procedure Procedure Detail Performing Cl inician Start: Open reduction of IFEOMA DONALDSON MD 05-05-2014 fracture with internal fixation, tibia and fibula Start: Open reduction of OLYA WILLIS MD 04-12-2014 fracture with internal fixation, tibia and fibula OP RED-INT FIX OLYA WILLIS MD TIB/FIBUL Results Test Name Value Interpreta Reference Facilit Date tion Range y Time not yet categorized on 2020-04-01 MRSA CONFIRMATION [phone] 04/04/20 13:40 BY ELENITA Invalid PENDING Interpreta LOCATIO 020 tion Code N [facility] 11:29-0 ([id number]) 400 PROCALCITONIN (PCT) 0.46 High <0.10 PENDING 05-26 ng/mL LOCATIO 020 [facility] 11:29-0 ([id number]) 400 QUANTITY OF GROWTH Isolated Invalid PENDING Interpreta LOCATIO 020 tion Code N [facility] 11:29-0 ([id number]) 400 QUANTITY OF GROWTH . Invalid PENDING Interpreta LOCATIO 020 tion Code N [facility] 11:29-0 ([id number]) 400 SUSCEPTIBILITY SUSCEPTIBILITY TO FOLLOW Invalid PENDING Interpreta LOCATIO 020 tion Code N [facility] 11:29-0 ([id number]) 400 SUSCEPTIBILITY SUSCEPTIBILITY REPORTED 04/04/20 13:05 Invalid PENDING Interpreta LOCATIO 020 tion Code N [facility] 11:29-0 ([id number]) 400 laboratory on 2020-04-01 Albumin [Mass/Vol] 3.7 g/dL Negative 3.2-4.5 PENDING 8-2 g/dL LOCATIO 020 [facility] 11:29-0 ([id number]) 400 ALP [Catalytic 84 U/L Negative 40-136 U/L PENDING activity/Vol] LOCATIO 020 [facility] 11:29-0 ([id number]) 400 ALT [Catalytic 10 U/L Negative 0-55 U/L PENDING activity/Vol] LOCATIO 020 [facility] 11:29-0 ([id number]) 400 Amorphous sediment MOD MARLENA URATES Abnormal PENDING 05-26 LM Ql (Urine sed) LOCATIO 020 [facility] 11:08-0 ([id number]) 400 Anion gap 13 mmol/L Negative 5-14 PENDING [Moles/Vol] mmol/L LOCATIO 020 [facility] 11:29-0 ([id number]) 400 aPTT Coag (PPP) 33 s Negative 24-35 s PENDING [Time] LOCATIO 020 [facility] 11:29-0 ([id number]) 400 AST [Catalytic 17 U/L Negative 5-34 U/L PENDING activity/Vol] LOCATIO 020 [facility] 11:29-0 ([id number]) 400 Aztreonam MILTON [Susc] 4 Susceptibl PENDING 04-01 e LOCATIO 020 N [facility] 11:29-0 ([id number]) 400 Bacteria identified NG Invalid PENDING Cx Nom (Bld) Interpreta LOCATIO 020 tion Code N [facility] 11:29-0 ([id number]) 400 Bacteria identified [id number] Invalid PENDING Cx Nom (Bld) Interpreta LOCATIO 020 tion Code N [facility] 11:29-0 ([id number]) 400 Bacteria identified SEE COMMEN Invalid PENDING Cx Nom (Bld) Interpreta LOCATIO 020 tion Code N [facility] 11:29-0 ([id number]) 400 Bacteria identified [id number] Invalid PENDING Cx Nom (Bld) Interpreta LOCATIO 020 tion Code N [facility] 11:29-0 ([id number]) 400 Bacteria LM Ql TRACE Invalid PENDING (Urine sed) Interpreta LOCATIO 020 tion Code N [facility] 11:08-0 ([id number]) 400 Basophils (Bld) 0.0 10*3/uL Negative 0.0-0.1 PENDING 04-01 [#/Vol] 10*3/uL LOCATIO 020 [facility] 10:55-0 ([id number]) 400 Basophils/100 WBC 0 % Negative 0-10 % PENDING 04-01 (Bld) LOCATIO 020 [facility] 10:55-0 ([id number]) 400 Bilirubin [Mass/Vol] 0.5 mg/dL Negative 0.1-1.0 PENDING mg/dL LOCATIO 020 [facility] 11:29-0 ([id number]) 400 Bilirubin Ql (U) Negative Invalid NEGATIVE PENDING Interpreta LOCATIO 020 tion Code [facility] 11:08-0 ([id number]) 400 Calcium [Mass/Vol] 10.0 mg/dL Negative 8.5-10.1 PENDING -2 mg/dL LOCATIO 020 [facility] 11:29-0 ([id number]) 400 Calcium [Mass/Vol] 10.2 mg/dL High 8.5-10.1 PENDING -2 mg/dL LOCATIO 020 [facility] 11:29-0 ([id number]) 400 Casts LM Ql (Urine NONE Invalid PENDING sed) Interpreta LOCATIO 020 tion Code N [facility] 11:08-0 ([id number]) 400 Cefepime MILTON [Susc] 2 Susceptibl PENDING e LOCATIO 020 [facility] 11:29-0 ([id number]) 400 Ceftazidime MILTON <= Susceptibl PENDING [Susc] e LOCATIO 020 [facility] 11:29-0 ([id number]) 400 Chloride [Moles/Vol] 92 mmol/L Low 98-107 PENDING mmol/L LOCATIO 020 [facility] 11:29-0 ([id number]) 400 Ciprofloxacin MILTON <= Susceptibl PENDING [Susc] e LOCATIO 020 [facility] 11:29-0 ([id number]) 400 Clarity (U) CLEAR Invalid PENDING Interpreta LOCATIO 020 tion Code [facility] 11:08-0 ([id number]) 400 CO2 [Moles/Vol] 29 mmol/L Negative 21-32 PENDING 2 mmol/L LOCATIO 020 [facility] 11:29-0 ([id number]) 400 Color (U) YELLOW Invalid PENDING Interpreta LOCATIO 020 tion Code [facility] 11:08-0 ([id number]) 400 Coronavirus Ab Qn Negative Invalid Negative PENDING 04-01 (S) Interpreta LOCATIO 020 tion Code [facility] 10:55-0 ([id number]) 400 Creatinine 5.86 mg/dL High 0.60-1.30 PENDING [Mass/Vol] mg/dL LOCATIO 020 [facility] 11:29-0 ([id number]) 400 Creatinine and 7 Invalid PENDING Glomerular Interpreta LOCATIO 020 filtration tion Code [facility] 11:29-0 rate.predicted panel ([id number]) 400 - Serum, Plasma or Blood CRP [Mass/Vol] 6.94 High 0.00-0.50 PENDING mg/dL LOCATIO 020 N S 11:29-0 ([id number]) 400 Crystals LM Ql PRESENT Abnormal PENDING (Urine sed) LOCATIO 020 N S 11:08-0 ([id number]) 400 Eosinophils (Bld) 0.2 10*3/uL Negative 0.0-0.3 PENDING 05-26 [#/Vol] 10*3/uL LOCATIO 020 [facility] 10:55-0 ([id number]) 400 Eosinophils/100 WBC 1 % Negative 0-10 % PENDING 05-26 (Bld) LOCATIO 020 [facility] 10:55-0 ([id number]) 400 Eosinophils/100 WBC 1 % Invalid PENDING (Nose) Interpreta LOCATIO 020 tion Code N [facility] 10:55-0 ([id number]) 400 Erythrocyte 16.6 % High 10.0-14.5 PENDING distribution width % LOCATIO 020 (RBC) [Ratio] N [facility] 10:55-0 ([id number]) 400 ESR (Bld) [Velocity] 90 High 0-30 mm PENDING LOCATIO 020 N S 10:55-0 ([id number]) 400 Fibrin D-dimer FEU 3.62 High 0.00-0.49 PENDING 06-0 8-2 (PPP) [Mass/Vol] ug/mL LOCATIO 020 [facility] 11:29-0 ([id number]) 400 Gentamicin MILTON 4 Susceptibl PENDING [Susc] e LOCATIO 020 [facility] 11:29-0 ([id number]) 400 Glucose [Mass/Vol] 136 mg/dL High 70-105 PENDING -0 8-2 mg/dL LOCATIO 020 N S 11:29-0 ([id number]) 400 Glucose Auto test Negative Invalid NEGATIVE PENDING 04-01 strip Ql (U) Interpreta LOCATIO 020 tion Code [facility] 11:08-0 ([id number]) 400 Hematocrit (Bld) 36 % Negative 35-52 % PENDING [Volume fraction] LOCATIO 020 N S 10:55-0 ([id number]) 400 Hemoglobin (Bld) 11.3 g/dL Low 11.5-16.0 PENDING [Mass/Vol] g/dL LOCATIO 020 [facility] 10:55-0 ([id number]) 400 Imipenem MILTON [Susc] 2 Susceptibl PENDING e LOCATIO 020 [facility] 11:29-0 ([id number]) 400 INR Coag (Platelet 1.1 Negative 0.8-1.4 PENDING 2 poor plasma or LOCATIO 020 blood) [Relative N [facility] 11:29-0 time] ([id number]) 400 Ketones Auto test Negative Invalid NEGATIVE PENDING 04-01 strip Ql (U) Interpreta LOCATIO 020 tion Code [facility] 11:08-0 ([id number]) 400 Lactate [Moles/Vol] 1.91 mmol/L Negative 0.50-2.00 PENDING 0 2 mmol/L LOCATIO 020 [facility] 10:55-0 (17315) 400 LDH [Catalytic 189 U/L Negative 125-220 PENDING activity/Vol] U/L LOCATIO 020 [facility] 11:29-0 ([id number]) 400 Leukocyte esterase Negative Invalid NEGATIVE PENDING 05-26 Test strip Ql (U) Interpreta LOCATIO 020 tion Code [facility] 11:08-0 ([id number]) 400 Levofloxacin MILTON <= Susceptibl PENDING [Susc] e LOCATIO 020 [facility] 11:29-0 ([id number]) 400 Lymphocytes (Bld) 0.7 10*3/uL Low 1.0-4.0 PENDING 05-26 [#/Vol] 10*3 LOCATIO 020 [facility] 10:55-0 ([id number]) 400 Lymphocytes/100 WBC 4 % Low 12-44 % PENDING 05-26 (Bld) LOCATIO 020 [facility] 10:55-0 ([id number]) 400 Lymphocytes/100 WBC 3 % Invalid PENDING (Bld) Interpreta LOCATIO 020 tion Code [facility] 10:55-0 ([id number]) 400 MCH (RBC) [Entitic 29 pg Negative 25-34 pg PENDING -0 8-2 mass] LOCATIO 020 [facility] 10:55-0 ([id number]) 400 MCHC (RBC) 31 g/dL Low 32-36 g/dL PENDING [Mass/Vol] LOCATIO 020 [facility] 10:55-0 ([id number]) 400 MCV (RBC) [Entitic 94 Negative 80-99 PENDING 06-0 8-2 vol] [foz_us] LOCATIO 020 [facility] 10:55-0 ([id number]) 400 Meropenem MILTON [Susc] <= Susceptibl PENDING 04-01 e LOCATIO 020 [facility] 11:29-0 ([id number]) 400 Monocytes (Bld) 1.3 10*3/uL High 0.0-1.0 PENDING 04-01 [#/Vol] 10*3 LOCATIO 020 [facility] 10:55-0 ([id number]) 400 Monocytes/100 WBC 9 % Negative 0-12 % PENDING 04-01 (Bld) LOCATIO 020 [facility] 10:55-0 ([id number]) 400 Monocytes/100 WBC 8 % Invalid PENDING (Bld) Interpreta LOCATIO 020 tion Code N [facility] 10:55-0 ([id number]) 400 MRSA DNA JOSE+probe Positive Invalid PENDING Ql (Unsp spec) Interpreta LOCATIO 020 tion Code N [facility] 11:29-0 ([id number]) 400 MRSA DNA JOSE+probe FAXED TO [facility] AT Invalid PENDI NG Ql (Unsp spec) Interpreta LOCATIO 020 tion Code [facility] 11:29-0 ([id number]) 400 Mucus Ql (Urine sed) Negative Invalid PENDING 04-01 Interpreta LOCATIO 020 tion Code N [facility] 11:08-0 ([id number]) 400 Neutrophils (Bld) 13.4 10*3/uL High 1.8-7.8 PENDING [#/Vol] 10*3 LOCATIO 020 [facility] 10:55-0 (06927) 400 Neutrophils/100 WBC 86 % High 42-75 % PENDING 05-26 (Bld) LOCATIO 020 [facility] 10:55-0 ([id number]) 400 Nitrite Ql (U) Negative Invalid NEGATIVE PENDING Interpreta LOCATIO 020 tion Code N [facility] 11:08-0 ([id number]) 400 pH (U) 6.0 [pH] Invalid 5-9 PENDING Interpreta LOCATIO 020 tion Code [facility] 11:08-0 ([id number]) 400 Piperacillin+Tazobac = Susceptibl PENDING 04-01 willis MILTON [Susc] e LOCATIO 020 [facility] 11:29-0 ([id number]) 400 Platelet mean volume 10.0 Negative 7.4-10.4 PENDING (Bld) [Entitic vol] [foz_us] LOCATIO 020 [facility] 10:55-0 ([id number]) 400 Platelets (Bld) 269 10*3/uL Negative 130-400 PENDING 04-01 [#/Vol] 10*3/uL LOCATIO 020 [facility] 10:55-0 (85920) 400 Potassium 6.3 mmol/L High 3.6-5.0 PENDING [Moles/Vol] mmol/L LOCATIO 020 [facility] 11:29-0 ([id number]) 400 Protein [Mass/Vol] 7.8 g/dL Negative 6.4-8.2 PENDING - 8-2 g/dL LOCATIO 020 [facility] 11:29-0 (33031) 400 Protein Ql (U) 3+ Abnormal NEGATIVE PENDING LOCATIO 020 [facility] 11:08-0 (37907) 400 PT Coag (PPP) [Time] 14.1 s Negative 12.2-14.7 PENDING s LOCATIO 020 [facility] 11:29-0 ([id number]) 400 RBC (Bld) [#/Vol] 3.84 10*6/uL Low 4.35-5.85 PENDING 10*6/uL LOCATIO 020 [facility] 10:55-0 ([id number]) 400 RBC LM.HPF (Urine Invalid PENDING sed) [#/Area] Interpreta LOCATIO 020 tion Code N [facility] 11:08-0 ([id number]) 400 RBC morphology NORMAL Invalid PENDING finding Nom (Bld) Interpreta LOCATIO 020 tion Code N [facility] 10:55-0 (20950) 400 RBC Ql (U) 1+ Abnormal NEGATIVE PENDING LOCATIO 020 [facility] 11:08-0 (63446) 400 Segmented 88 % Invalid PENDING neutrophils/100 WBC Interpreta LOCATIO 020 (Bld) tion Code N [facility] 10:55-0 ([id number]) 400 Sodium [Moles/Vol] 134 mmol/L Low 135-145 PENDING 05-26 mmol/L LOCATIO 020 [facility] 11:29-0 (37206) 400 Specific gravity (U) 1.020 Invalid 1.016-1.02 PENDING 0 [Rel density] Interpreta 2 LOCATIO 020 tion Code N [facility] 11:08-0 (50508) 400 Tobramycin MILTON <= Susceptibl PENDING [Susc] e LOCATIO 020 [facility] 11:29-0 (02409) 400 Troponin I.cardiac 0.028 ng/mL Negative <0.028 PENDING [Mass/Vol] ng/mL LOCATIO 020 [facility] 11:29-0 (17358) 400 Urea nitrogen 44 mg/dL High 7-18 mg/dL PENDING [Mass/Vol] LOCATIO 020 [facility] 11:29-0 (56309) 400 Urea 8 mg/mg Invalid PENDING nitrogen/Creatinine Interpreta LOCATIO 020 [Mass ratio] tion Code N [facility] 11:29-0 (20503) 400 Urinalysis complete NO Invalid PENDING W Reflex Culture Interpreta LOCATIO 020 panel - Urine tion Code N [facility] 11:08-0 (50142) 400 Urobilinogen (U) 0.2 mg/dL Invalid < = 1.0 PENDING [Mass/Vol] Interpreta mg/dL LOCATIO 020 tion Code N [facility] 11:08-0 (44626) 400 WBC (Bld) [#/Vol] 15.6 10*3/uL High 4.3-11.0 PENDING 10*3/uL LOCATIO 020 [facility] 10:55-0 (00569) 400 WBC LM.HPF (Urine Abnormal PENDING sed) [#/Area] LOCATIO 020 [facility] 11:08-0 (91545) 400 not yet categorized on 2019-09-06 Exp date 05/2021 Invalid Communi Interpreta ty tion Code [facility] (29225) Lot 6.7~6.2~0552 Invalid Communi Interpreta ty tion Code [facility] (24717) not yet categorized on 2019-03-17 COMMENT Invalid Communi Interpreta ty tion Code [facility] (19689) medMATCH CONSISTENT Invalid Communi Amphetamines Interpreta ty tion Code [facility] (85800) medMATCH CONSISTENT Invalid Communi Barbiturates Interpreta ty tion Code [facility] (96618) medMATCH CONSISTENT Invalid Communi Benzodiazepines Interpreta ty tion Code [facility] (09644) medMATCH Cocaine CONSISTENT Invalid Communi Metab Interpreta ty tion Code [facility] (68314) medMATCH Codeine CONSISTENT Invalid Communi Interpreta ty tion Code [facility] (64231) medMATCH Hydrocodone CONSISTENT Invalid Communi Interpreta ty tion Code [facility] (54840) medMATCH CONSISTENT Invalid Communi Hydromorphone Interpreta ty tion Code [facility] (94544) medMATCH Marijuana CONSISTENT Invalid Communi Metab Interpreta ty tion Code [facility] (47129) medMATCH Methadone CONSISTENT Invalid Communi Metab Interpreta ty tion Code [facility] (60597) medMATCH Morphine CONSISTENT Invalid Communi Interpreta ty tion Code [facility] (50424) medMATCH CONSISTENT Invalid Communi Norhydrocodone Interpreta ty tion Code [facility] (20080) medMATCH CONSISTENT Invalid Communi Noroxycodone Interpreta ty tion Code [facility] (60378) medMATCH Oxycodone CONSISTENT Invalid Communi Interpreta ty tion Code [facility] (44757) medMATCH Oxymorphone CONSISTENT Invalid Communi Interpreta ty tion Code [facility] (70991) medMATCH CONSISTENT Invalid Communi Phencyclidine Interpreta ty tion Code [facility] (36793) Prescribed Drug 1 Oxycodone Invalid Communi Interpreta ty tion [facility] (84133) laboratory on 2019-03-17 Amphetamines Ql (U) Negative Invalid <500 ng/mL Commun i Interpreta ty tion [facility] (96365) Barbiturates Ql (U) Negative Invalid <300 ng/mL Commun i Interpreta ty tion Code [facility] (28691) Benzodiazepines Ql Negative Invalid <100 ng/mL Communi (U) Interpreta ty tion [facility] (24651) Benzoylecgonine Ql Negative Invalid <150 ng/mL Communi (U) Interpreta ty tion Code [facility] (40251) Codeine (U) Negative Invalid <50 ng/mL Communi [Mass/Vol] Interpreta ty tion [facility] (78956) Creatinine (U) 93.5 mg/dL Invalid > or = Communi [Mass/Vol] Interpreta 20.0 mg/dL ty tion [facility] (31445) Hydrocodone (U) Negative Invalid <50 ng/mL Communi [Mass/Vol] Interpreta ty tion Code [facility] (27196) Hydromorphone (U) Negative Invalid <50 ng/mL Communi [Mass/Vol] Interpreta ty tion Code [facility] (16037) Methadone Ql (U) Negative Invalid <100 ng/mL Communi Interpreta ty tion [facility] (88665) Morphine (U) Negative Invalid <50 ng/mL Communi [Mass/Vol] Interpreta ty tion [facility] (84411) Norhydrocodone Negative Invalid <50 ng/mL Communi Confirm (U) Interpreta ty [Mass/Vol] tion Code [facility] (05576) Noroxycodone Confirm 385 High <50 ng/mL Commu ni (U) [Mass/Vol] ty [facility] (90687) Opiates Ql (U) Negative Invalid <100 ng/mL Communi Interpreta ty tion Code [facility] (24509) Oxidants Ql (U) Negative Invalid <200 Communi Interpreta mcg/mL ty tion Code [facility] (56081) Oxycodone (U) 977 High <50 ng/mL Communi [Mass/Vol] ty [facility] (39000) Oxycodone Ql (U) Positive Abnormal <100 ng/mL Communi ty [facility] (89278) Oxymorphone (U) 5426 High <50 ng/mL Communi [Mass/Vol] ty [facility] (31635) pH (U) 6.29 [pH] Invalid 4.5 - 9.0 Communi Interpreta ty tion Code [facility] (79589) Phencyclidine Ql (U) Negative Invalid <25 ng/mL Commu ni Interpreta ty tion [facility] (73064) Tetrahydrocannabinol Negative Invalid <20 ng/mL Commu ni Ql (U) Interpreta ty tion Code [facility] (68568) other on 2018-10-07 Exp date 6.2~6.1~0932~906040 Invalid Communi Interpreta ty tion Code [facility] (99885) hematology on 2017-07-16 ESR (Bld) [Velocity] 61 mm/h High 0-40 mm/hr Not 0 07-16-2 Availab 017 le 07:58-0 (29187) 400 Social History Date Type Detail Facility Start: Cigarettes [place] [facility] 07-12-2018 [facility] (60384) Start: N - hysterectomy [address] [place] [facility] 07-12-[facility] (55484) Start: Denies Use [place] [facility] 04-24-2016 [facility] (05678) Start: No [place] [facility] 08-21-2011 [facility] (76979) Start: Sex Assigned At Female [facility] 1945 [facility] (31862) Vital Signs Date Time Vital Sign Value Performing Clinician Yehuda guerra 01-13-2019 BMI (Body Mass 27.93 kg/m2 [facility] 11:20-0400 Index) [facility] (29657) 01-13-2019 Body Temperature 98.6 [degF] [facility] 11:20-0400 [facility] (37830) 01-13-2019 Body weight 69.26 kg [facility] 11:200400 [facility] (38838) 01-13-2019 Height 157.48 cm [facility] 11:20-0400 [facility] (86856) 09-16-2018 BMI (Body Mass 27.43 kg/m2 [facility] 14:00-0500 Index) [facility] (49245) 09-16-2018 Body Temperature 97.7 [degF] [facility] 14:00-0500 [facility] (04215) 09-16-2018 Height 157.48 cm [facility] 14:00-0500 [facility] ([id number]) 09-16-2018 Weight 68.04 kg [facility] 14:00-0500 [facility] (28449) 09-02-2018 BMI (Body Mass 27.43 kg/m2 [facility] 10:40-0500 Index) [facility] (56518) 09-02-2018 Body Temperature 97.4 [degF] [facility] 10:40-0500 [facility] (43536) 09-02-2018 Height 157.48 cm [facility] 10:40-0500 [facility] ([id number]) 09-02-2018 Pulse Oximetry 0 % [facility] 10:40-0500 [facility] (37292) 09-02-2018 Weight 68.04 kg [facility] 10:40-0500 [facility] (67913) 06-17-2018 BMI (Body Mass 28.11 kg/m2 [facility] 11:200 Index) [facility] (74982) 06-17-2018 Body Temperature 99 [degF] [facility] 11:20-0400 [facility] (37824) 06-17-2018 Height 157.48 cm [facility] 11:200400 [facility] (97691) 06-17-2018 Weight 69.72 kg [facility] 11:200400 [facility] (01474) Functional Status The data below is from [...] from unstructured sourcesNo Mental Status Information Available Evaluation note Note Date & Note Facility Type Evaluation No Assessments Information Available [facility] (38589) Summary Purpose eClinicalWorks SubmissioneClinicalWorks SubmissioneClinicalWorks SubmissioneClinicalWorks SubmissioneClinicalWorks SubmissioneClinicalWorks SubmissioneClinicalWorks SubmissioneClinicalWorks SubmissioneClinicalWorks SubmissioneClinicalWorks SubmissioneClinicalWorks SubmissioneClinicalWorks SubmissioneClinicalWorks SubmissioneClinicalWorks SubmissioneClinicalWorks SubmissioneClinicalWorks SubmissioneClinicalWorks SubmissioneClinicalWorks SubmissioneClinicalWorks SubmissioneClinicalWorks SubmissioneClinicalWorks SubmissioneClinicalWorks SubmissioneClinicalWorks SubmissioneClinicalWorks SubmissioneClinicalWorks SubmissioneClinicalWorks SubmissioneClinicalWorks SubmissioneClinicalWorks SubmissioneClinicalWorks SubmissioneClinicalWorks SubmissioneClinicalWorks SubmissioneClinicalWorks SubmissioneClinicalWorks SubmissioneClinicalWorks SubmissioneClinicalWorks SubmissioneClinicalWorks SubmissioneClinicalWorks Submission Advance Directives Directive Response Recor ded Date/Time Advance Directives No 4:16am Health Care Power of Supervisor Frame Sample And Pattern No 04/24/16 4:16am Organ Donor Yes 04/24/16 4:16am Directive Response Recor ded Date/Time Advance Directives No 2:43pm Health Care Power of Supervisor Frame Sample And Pattern No 07/10/16 2:43pm Organ Donor Yes 07/10/16 2:43pm Directive Response Recor ded Date/Time Advance Directives No 10:52am Health Care Power of Supervisor Frame Sample And Pattern No 11/11/16 10:52am Organ Donor Yes 11/11/16 10:52am Directive Response Recor ded Date/Time Advance Directives No 2:03pm Health Care Power of Supervisor Frame Sample And Pattern No 12/29/16 2:03pm Organ Donor Yes 12/29/16 2:03pm Directive Response Recor ded Date/Time Advance Directives No 4:16am Health Care Power of Supervisor Frame Sample And Pattern No 04/24/16 4:16am Organ Donor Yes 04/24/16 4:16am Resuscitation Status Full Code 04/24/16 4:16am Directive Response Recor ded Date/Time Advance Directives No 4:43pm Health Care Power of Supervisor Frame Sample And Pattern No 12/31/14 4:43pm Organ Donor Yes 12/31/14 4:43pm Directive Response Recor ded Date/Time Advance Directives No 6:09am Health Care Power of Supervisor Frame Sample And Pattern No 09/02/14 6:09am Organ Donor Yes 09/02/14 6:09am Resuscitation Status Full Code 09/02/14 6:09am Directive Response Recor ded Date/Time Advance Directives No 11:04am Health Care Power of Supervisor Frame Sample And Pattern No 05/09/14 11:04am Organ Donor Yes 05/09/14 11:04am Directive Response Recor ded Date Advance Directives N 11:41am Health Care Power of Supervisor Frame Sample And Pattern N 02/20/13 11:41am Organ Donor Y 02/20/13 1 1:41am Directive Response Recor ded Date/Time Advance Directives No 3:20am Health Care Power of Supervisor Frame Sample And Pattern No 08/14/14 3:20am Organ Donor Yes 08/14/14 3:20am Resuscitation Status Full Code 08/14/14 3:20am Directive Response Recor ded Date/Time Advance Directives No 7:43pm Health Care Power of Supervisor Frame Sample And Pattern No 05/02/14 7:43pm Organ Donor Yes 05/02/14 7:43pm Resuscitation Status Full Code 05/02/14 7:43pm Directive Response Recor ded Date/Time Advance Directives No 4:43pm Health Care Power of Supervisor Frame Sample And Pattern No 12/31/14 4:43pm Organ Donor Yes 12/31/14 4:43pm Resuscitation Status Full Code 12/31/14 4:43pm Directive Response Recor ded Date/Time Advance Directives No 6:09am Health Care Power of Supervisor Frame Sample And Pattern No 09/02/14 6:09am Organ Donor Yes 09/02/14 6:09am Directive Response Recor ded Date/Time Advance Directives No 1:25pm Health Care Power of Supervisor Frame Sample And Pattern No 04/06/17 1:25pm Organ Donor Yes 04/06/17 1:25pm Directive Response Recor ded Date/Time Advance Directives No 11:55am Health Care Power of Supervisor Frame Sample And Pattern No 09/07/17 11:55am Organ Donor Yes 09/07/17 11:55am Resuscitation Status Full Code 09/07/17 11:55am Directive Response Recor ded Date/Time Advance Directives No 9:02am Health Care Power of Supervisor Frame Sample And Pattern No 07/12/18 9:02am Organ Donor Yes 07/12/18 9:02am Advance Directive Response Recorded Date/Time Advance Directives No ptember 2017 9:02am Health Care Power of Supervisor Frame Sample And Pattern No July 12, 2018 9:02am [facility] Instructions No hospital [...] This clinical document has been generated using [employer] software that has been certified by the Office of the National Coordinator for Health Information Technology (ONC 15.99.04.3023.Diam.31.00.0.650269) and the National Committee for Residential Roofer (NCQA, as an eMeasure certified technology). FOR [...] BASED ON T HE PRIMARY CLINICAL RECORDS. [employer] provides no warranty or guara ntee of the accuracy or completeness of information in this document.The followi ng information is based on time limited clinical [...] day at oct 2016 Hospitalization History Pneumonia Model M O 06/2018 Type Description Date Medical [...] at oct 2016 Hospitalization History [facility] Type Description Date Medical History osteoporosis [...] at oct 2016 Hospitalization History [facility]neum[facility] 06[facility]2018 Hospitalization History fistula in left ar m 07/2018 UNRECOGNIZED CONTENT PROVIDED BELOW FOR UNRECOGNIZED SECTION REASON FOR VISIT wound f/u Right heel wound reevaluation CBrumbackRNOxycodone due 04/25Wound, PTs h usband notes it has been getting better-Debra HERNANDEZ Controlled Med RefillControl led Med Refill 06/21wound f/u Pt in for wound check JNapier, MAControlled Med Re fill 07/19Requests return callControlled Med RefillMedication questionCough / co ngestion- dry cough since wednesday KPage MA , sinus pressure / no headaches / no dizzyness or lightheadedness Joycelyn hernandez , in [facility] fo r7 days with pneumonia Joycelyn HERNANDEZ Controlled Med Refillmedication refillwound care - Debra Mcgee AMedication [id number] suppliesControlled Med Refill 10/11EMR-Alec JYV-QhsWNP-OswQQO-MigFYI onlyWound care Pako hernandez
--- OUTSIDE RECORDS SUMMARY | 2020-05-29 16:21 | XMS REPORT | Continuity of Care Document ---
Demographics Preferred Language Unknown Marital Status Unknown Restoration Affiliation Unknown Race Unknown Ethnic Group Unknown Author Organization Unknown Address Unknown Phone Unavailable Allergies Active Description Code Type Severity Reaction Onset Reported/Identified Relationship to Patient Clinical Status Yes Lyrica Drug Allergy N/A N/A 04/07/2014 Yes Neurontin Drug Allergy N/A N/A 04/07/2014 Yes Plavix Drug Allergy N/A N/A 04/07/2014 Yes clopidogrel [id number] Drug Aller gy Unknown BLEEDING 04/24/2016 Yes gabapentin [id number] Drug Allerg y Unknown N/A 04/24/2016 Yes lisinopril [id number] Drug Allerg y Mild N/A 12/29/2016 Yes sulfamethoxazole [id number] Drug Allergy Mild N/A 12/29/2016 Yes trimethoprim [id number] Drug Allergy Mild N/A 12/29/2016 Yes vancomycin [id number] Drug Allerg y Mild N/A 12/29/2016 Medications [...] 333.94 RESTLESS LEGS SYNDROME (RLS) 04/07/2014 MCADAMS LAINA POWERS K 338.29 OTHER CHRONIC PAIN 04/07/2014 [...] 11/20/2014 RAHEL MUNOZ MD Ot 440.23 ATHEROSCL [place] ARTER EXTREMITIES W [facility] 11/20/2014 RAHEL MUNOZ [...] TAMMY LICEA, RAHEL Mcdonald Ot 440.23 ATHEROSCL [place] ART[place] EXTREMITIES W U[facility] 03/04/2015 RAHEL MUNOZ MD Ot 707.13 ULCER OF ANKLE 03/04/2015 RAHEL MUNOZ MD Ot 707.14 ULCER OF HEEL AND MIDFOOT 03/04/2015 RAHEL MUNOZ MD Ot 998.83 NON-HEALING SURG WOUND 03/04/2015 TAMMY LICEA, RAHEL Mcdonald Ot V54.19 [facility] HEALING TRAUMATIC FX OTHER BON 03/05/2015 ALBA LICEA, OLYA Joaquin Ot 998.59 OTH [...] Joaquin Ot 276 .7 04/20/2015 ALBA LICEA, OLYA Joaquin Ot 276 .7 04/22/2015 ALBA LICEA, [...] 06/13/2015 Ot V72.84 06/13/2015 CHAPARRO SHEA Mcgee ENGINE LATHE OPERATOR Ot 793.89 06/13/2015 SHEA MAYFIELD Everardo ENGINE LATHE OPERATOR Ot V76.12 06/13/2015 MARGARITA CORDERO DO Ot [...] E11.621 01/03/2016 Ot L97.412 01/06/2016 ESTUARDO RICHARDSON OCCUPATIONAL MEDICINE PHYSICIAN Ot E11.621 01/06/2016 ESTUARDO RICHARDSON OCCUPATIONAL MEDICINE PHYSICIAN Ot L97.412 01/07/2016 Ot 435.9 01/07/2016 Ot [...] 01/07/2016 Ot L97.412 01/07/2016 NEW, IRENE Gandara ANATOMY TEACHER-C Ot D64.9 01/07/2016 NEW, IRENE Gandara ANATOMY TEACHER-C Ot D72.8 29 01/07/2016 NEW, IRENE Gandara ANATOMY TEACHER-C Ot E11.2 9 01/07/2016 NEW, IRENE G. ANATOMY TEACHER-C Ot E78.5 01/07/2016 NEW, IRENE G. ANATOMY TEACHER-C Ot E87.5 01/07/2016 NEW, IRENE Mcdonald. ANATOMY TEACHER-C Ot I13.1 0 01/07/2016 NEW, IRENE Hrary. ANATOMY TEACHER-C Ot K31.8 4 01/07/2016 NEW, IRENE G. ANATOMY TEACHER-C Ot N18.4 01/07/2016 NEW, IRENE Gandara ANATOMY TEACHER-C Ot R80.9 01/20/2016 NEW, IRENE Gandara ANATOMY TEACHER-C Ot D64.9 01/20/2016 NEW, IRENE G. ANATOMY TEACHER-C Ot D72.8 29 01/20/2016 NEW, IRENE Mcdonald. ANATOMY TEACHER-C Ot E11.2 9 01/20/2016 NEW, IRENE G. ANATOMY TEACHER-C Ot E78.5 01/20/2016 NEW, IRENE Harry. ANATOMY TEACHER-C Ot E87.5 01/20/2016 NEW, IRENE Harry. ANATOMY TEACHER-C Ot I13.1 0 01/20/2016 NEW, IRENE G. ANATOMY TEACHER-C Ot K31.8 4 01/20/2016 NEW, IRENE G. ANATOMY TEACHER-C Ot N18.4 01/20/2016 NEW, IRENE Gandara ANATOMY TEACHER-C Ot R80.9 02/10/2016 ALBA LICEA, OLYA Joaquin [...] MELLITUS WITH FOOT ULCER 02/27/2016 ESTUARDO RICHARDSON OCCUPATIONAL MEDICINE PHYSICIAN Ot L97.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 02/28/2016 ESTUARDO RICHARDSON OCCUPATIONAL MEDICINE PHYSICIAN Ot E11.621 TYPE 2 DIABETES MELLITUS WITH FOOT ULCER 02/28/2016 ESTUARDO RICHARDSON OCCUPATIONAL MEDICINE PHYSICIAN Ot L97.412 NON-PRS CHR ULCER OF RIGHT [...] 998.59 OTH POSTOPER INFECTION 04/24/2016 ESTUARDO RICHARDSON OCCUPATIONAL MEDICINE PHYSICIAN Ot E11.621 TYPE 2 DIABETES MELLITUS WITH FOOT ULCER 04/24/2016 ESTUARDO RICHARDSON OCCUPATIONAL MEDICINE PHYSICIAN Ot L97.412 NON-PRS CHR ULCER OF RIGHT [...] KIRKLAND DO Ot Y92.[address] [facility] (PRIVATE 04/24/2016 IRENE KIRKLAND DO Ot Y99.8 OTHER EXTERNAL CAUSE STATUS 04/24/2016 IRENE KIRKLAND DO Ot Z79.4 SUPERINTENDENT DIVISION (CURRENT) USE OF INSULIN 04/24/2016 IRENE KIRKLAND DO Ot Z87.891 PERSONAL HISTORY OF NICOTINE DEPENDENCE 04/24/2016 IRENE KIRKLAND DO, Ot Z98.1 ARTHRODESIS STATUS 04/24/2016 ESTUARDO RICHARDSON OCCUPATIONAL MEDICINE PHYSICIAN Ot E11.621 TYPE 2 DIABETES MELLITUS WITH [...] STRIKE 04/29/2016 IRENE KIRKLAND DO Ot Y92.[address] [facility] NON-INSTITUT (PRIVATE 04/29/2016 IRENE KIRKLAND DO Ot Y99.8 OTHER EXTERNAL CAUSE STATUS 04/29/2016 IRENE KIRKLAND DO Ot Z79.4 SUPERINTENDENT DIVISION (CURRENT) USE OF INSULIN 04/29/2016 IRENE KIRKLAND [...] V58.69 OTH MED,LT,CURRENT USE 05/02/2016 Ot V72.81 [id number] CARDIOVASCULAR 05/02/2016 Ot 354.2 ULNA R NERVE [...] OR UNS 05/02/2016 Ot 440.23 ATH EROSCL [place] ART[place] EXTREMITIES W ULC 05/02/2016 Ot 707.13 [facility] ER OF ANKLE 05/02/2016 Ot 707.14 [facility] ER OF HEEL AND MIDFOOT 05/02/2016 Ot 998.83 NON -HEALING SURG WOUND 05/02/2016 Ot V54.19 AFT ERCARE HEALING TRAUMATIC FX OTHER BON 05/02/2016 Ot 996.66 INF EC INFLAM REACT DUE TO INTERNL JOIN 05/02/2016 Ot V43.[address] [facility] ER JOINT REPLACEMENT STATUS 05/02/2016 Ot V58.62 ENC OUNT FOR LONG- TERM(CURRENT) USE OF AN 05/02/2016 Ot 996.66 INF EC INFLAM REACT DUE TO INTERNL JOIN 05/02/2016 Ot V43.[address] [facility] ER JOINT REPLACEMENT STATUS 05/02/2016 Ot V58.62 ENC OUNT FOR LONG- TERM(CURRENT) USE OF AN 05/02/2016 Ot V58.62 ENC OUNT FOR LONG- TERM(CURRENT) USE OF AN 05/02/2016 Ot V58.83 ENC OUNTER FOR THERAPEUTIC DRUG MONITORIN 05/02/2016 Ot 998.83 NON -HEALING SURG WOUND 05/02/2016 Ot 996.66 INF EC INFLAM REACT DUE TO INTERNL JOIN 05/02/2016 Ot V43.[address] 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, W S 05/02/2016 IRENE BRUCE ANATOMY TEACHER-C Ot K31.8 4 GASTROPARESIS 05/02/2016 IRENE BRUCE ANATOMY TEACHER-C Ot N18.4 CHRONIC KIDNEY DISEASE, STAGE 4 (SEVERE) 05/02/2016 IRENE BRUCE ANATOMY TEACHER-C Ot R80.9 PROTEINURIA, UNSPECIFIED 05/02/2016 ALBA LICEA, OLYA Joaquin Ot I12 .9 HYPERTENSIVE CHRONIC KIDNEY DISEASE W ST 05/02/2016 ALBA LICEA, OLYA Joaquin Ot N18 .3 CHRONIC KIDNEY DISEASE, STAGE 3 (MODERAT 05/02/2016 KRIS LICEA, LA NENA aGrzon Ot E87.5 HYPERKALEMIA 05/02/2016 KRIS LICEA, LA NENA Garzon Ot 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, W S 05/02/2016 KRIS LICEA, LA NENA Garzon Ot N18.4 CHRONIC KIDNEY DISEASE, STAGE 4 (SEVERE) 05/02/2016 ESTUARDO RICHARDSON OCCUPATIONAL MEDICINE PHYSICIAN Ot E11.621 TYPE 2 DIABETES MELLITUS WITH FOOT ULCER 05/02/2016 ESTUARDO RICHARDSON OCCUPATIONAL MEDICINE PHYSICIAN Ot L97.412 NON-PRS CHR ULCER OF RIGHT [...] STRIKE 05/13/2016 IRENE KIRKLAND DO Ot Y92.009 [facility] PLACE IN [facility] NON-INSTITUT (PRIVATE 05/13/2016 IRENE KIRKLAND DO Ot Y99.8 OTHER EXTERNAL CAUSE STATUS 05/13/2016 IRENE KIRKLAND DO Ot Z79.4 SKILLED NURSING (CURRENT) USE OF INSULIN 05/13/2016 IRENE KIRKLAND DO Ot Z87.891 PERSONAL HISTORY OF NICOTINE DEPENDENCE 05/13/2016 IRENE KIRKLAND DO Ot Z98.1 ARTHRODESIS STATUS 06/09/2016 CUCO LICEA, PRESTON S Ot D64.9 ANEMIA, UNSPECIFIED 06/09/2016 CUOC LICEA, PRESTON S Ot D72.829 ELEVATED WHITE BLOOD CELL COUNT, UNSPECI 06/09/2016 CUCO LICEA, PRESTON S Ot 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 06/09/2016 CUCO LICEA, PRESTON Granados Ot E11.42 [...] 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 06/22/2016 CUCO LICEA, PRESTON S Ot E11.42 [...] PRESTON Granados Ot K31.84 GASTROPARESIS 06/22/2016 CUCO ILCEA, PRESTON Granados Ot N18.4 CHRONIC KIDNEY DISEASE, [...] STRIKE 06/26/2016 IRENE KIRKLAND DO Ot Y92.009 [facility] PLACE IN [facility] NON-INSTITUT (PRIVATE 06/26/2016 IRENE KIRKLAND DO Ot Y99.8 OTHER EXTERNAL CAUSE STATUS 06/26/2016 IRENE KIRKLAND DO Ot Z79.4 SUPERINTENDENT DIVISION (CURRENT) USE OF INSULIN 06/26/2016 IRENE KIRKLAND DO Ot Z87.891 PERSONAL HISTORY OF NICOTINE DEPENDENCE 06/26/2016 IRENE KIRKLAND DO Ot Z98.1 ARTHRODESIS STATUS 07/15/2016 IRENE BRUCE NP-James Ot D63.1 ANEMIA IN CHRONIC KIDNEY DISEASE 07/15/2016 IRENE BRUCE Ot N18.4 CHRONIC KIDNEY DISEASE, STAGE 4 (SEVERE) 07/17/2016 NEWIRENE. ANATOMY TEACHER-C Ot D63.1 ANEMIA IN CHRONIC KIDNEY DISEASE 07/17/2016 NEWIRENE. ANATOMY TEACHER-C Ot N18.4 CHRONIC KIDNEY DISEASE, STAGE 4 (SEVERE) 07/21/2016 NEWSHIRAA G. ANATOMY TEACHER-C Ot D63.1 ANEMIA IN CHRONIC KIDNEY DISEASE 07/21/2016 NEWIRENE. ANATOMY TEACHER-C Ot N18.4 CHRONIC KIDNEY DISEASE, STAGE 4 (SEVERE) 07/27/2016 NEW, IRENE Harry. ANATOMY TEACHER-C Ot D63.1 ANEMIA IN CHRONIC KIDNEY DISEASE 07/27/2016 NEW, IRENE Mcdonald. ANATOMY TEACHER-C Ot N18.4 CHRONIC KIDNEY DISEASE, STAGE 4 (SEVERE) 08/10/2016 NEW IRENE G. ANATOMY TEACHER-C Ot D63.1 ANEMIA IN CHRONIC KIDNEY DISEASE 08/10/2016 NEWIRENE. ANATOMY TEACHER-C Ot N18.4 CHRONIC KIDNEY DISEASE, STAGE 4 (SEVERE) 08/13/2016 NEWIRENE. ANATOMY TEACHER-C Ot D63.1 ANEMIA IN CHRONIC KIDNEY DISEASE 08/13/2016 NEWIRENE. ANATOMY TEACHER-C Ot N18.4 CHRONIC KIDNEY DISEASE, STAGE 4 [...] DISEASE, STAGE 4 (SEVERE) 09/03/2016 ESTUARDO RICHARDSON OCCUPATIONAL MEDICINE PHYSICIAN Ot E11.621 TYPE 2 DIABETES MELLITUS WITH FOOT ULCER 09/03/2016 ESTUARDO RICHARDSON OCCUPATIONAL MEDICINE PHYSICIAN Ot L97.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 09/08/2016 ESTUARDO RICHARDSON OCCUPATIONAL MEDICINE PHYSICIAN Ot E11.621 TYPE 2 DIABETES MELLITUS WITH FOOT ULCER 09/08/2016 ESTUARDO RICHARDSON OCCUPATIONAL MEDICINE PHYSICIAN Ot L97.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 09/09/2016 IRENE BRUCE ANATOMY TEACHER-C Ot D63.1 ANEMIA IN CHRONIC KIDNEY DISEASE 09/09/2016 IRENE BRUCE ANATOMY TEACHER-C Ot N18.4 CHRONIC KIDNEY DISEASE, STAGE 4 (SEVERE) 09/15/2016 ESTUARDO RICHARDSON OCCUPATIONAL MEDICINE PHYSICIAN Ot E11.621 TYPE 2 DIABETES MELLITUS WITH FOOT ULCER 09/15/2016 ESTUARDO RICHARDSON OCCUPATIONAL MEDICINE PHYSICIAN Ot L97.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 09/29/2016 CUCO LICEA, MARIBELMED S Ot N18.4 CHRONIC KIDNEY DISEASE, STAGE 4 (SEVERE) 09/30/2016 CUCO LICEA, AHMED S Ot N18.4 CHRONIC KIDNEY DISEASE, STAGE 4 (SEVERE) 10/04/2016 CUCO LICEA, AHMED S Ot N18.4 CHRONIC KIDNEY DISEASE, STAGE 4 (SEVERE) 10/08/2016 IRENE BRUCE ANATOMY TEACHER-C Ot D63.1 ANEMIA IN CHRONIC KIDNEY DISEASE 10/08/2016 IRENE BRUCE. ANATOMY TEACHER-C Ot N18.4 CHRONIC KIDNEY DISEASE, STAGE 4 (SEVERE) 10/08/2016 TEO IRENE G. ANATOMY TEACHER-C Ot D63.1 ANEMIA IN CHRONIC KIDNEY DISEASE 10/08/2016 NEW IRENE G. ANATOMY TEACHER-C Ot N18.4 CHRONIC KIDNEY DISEASE, STAGE 4 (SEVERE) 10/09/2016 TEO IRENE G. ANATOMY TEACHER-C Ot D63.1 ANEMIA IN CHRONIC KIDNEY DISEASE 10/09/2016 TEO IRENE G. ANATOMY TEACHER-C Ot N18.4 CHRONIC KIDNEY DISEASE, STAGE 4 (SEVERE) 10/09/2016 TEO IRENE G. ANATOMY TEACHER-C Ot D63.1 ANEMIA IN CHRONIC KIDNEY DISEASE 10/09/2016 SHIRA BRUCEA G. ANATOMY TEACHER-C Ot N18.4 CHRONIC KIDNEY DISEASE, STAGE 4 (SEVERE) 10/13/2016 CUCO LICEA, PRESTON S Ot N18.4 CHRONIC KIDNEY DISEASE, STAGE 4 (SEVERE) 10/14/2016 IRENE BRUCE ANATOMY TEACHER-C Ot D63.1 ANEMIA IN CHRONIC KIDNEY DISEASE 10/14/2016 IRENE BRUCE ANATOMY TEACHER-C Ot N18.4 CHRONIC KIDNEY DISEASE, STAGE 4 [...] V58.69 OTH MED,LT,CURRENT USE 10/14/2016 Ot V72.81 [id number] CARDIOVASCULAR 10/14/2016 Ot 354.2 ULNA R NERVE [...] M PRE- OPERATIVE NOS 10/14/2016 SHEA MAYFIELD ENGINE LATHE OPERATOR Ot 793.89 OTH (ABN) FINDINGS ON RADIOLOGICAL EXAMI 10/14/2016 SHEA MAYFIELD ENGINE LATHE OPERATOR Ot V76.12 OTH SCREEN MAMMO-MALIGN NEOPLASM OF YING 10/14/2016 MARGARITA CORDERO DO S Ot 793.89 OTH (ABN) FINDINGS ON RADIOLOGICAL EXAMI 10/14/2016 Ot 250.82 WAYNE B W OTH SPEC MANIFEST, TYPE II OR UNS 10/14/2016 Ot 440.23 ATH EROSCL [place] ART[place] EXTREMITIES W ULC 10/14/2016 Ot 707.13 [...] DUE TO INTERNL JOIN 10/14/2016 Ot V43.[address] [facility] ER JOINT REPLACEMENT STATUS 10/14/2016 Ot V58.62 ENC OUNT FOR LONG- TERM(CURRENT) USE OF AN 10/14/2016 Ot V58.62 ENC OUNT FOR LONG- TERM(CURRENT) USE OF AN 10/14/2016 Ot V58.83 ENC OUNTER FOR THERAPEUTIC DRUG MONITORIN 10/14/2016 Ot 998.83 NON -HEALING SURG WOUND 10/14/2016 Ot 996.66 INF EC INFLAM REACT DUE TO INTERNL JOIN 10/14/2016 Ot V43.[address] 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, W S 10/14/2016 IRENE BRUCE ANATOMY TEACHER-C Ot K31.8 4 GASTROPARESIS 10/14/2016 IRENE BRUCE ANATOMY TEACHER-C Ot N18.4 CHRONIC KIDNEY DISEASE, STAGE 4 (SEVERE) 10/14/2016 IRENE BRUCE ANATOMY TEACHER-C Ot R80.9 PROTEINURIA, UNSPECIFIED 10/14/2016 ALBA LICEA, [...] STAGE 4 (SEVERE) 10/14/2016 ALBA LICEA, OLYA Joaquin Ot D64 .9 ANEMIA, UNSPECIFIED 10/14/2016 ALBA LICEA, OLYA Joaquin Ot N18 .9 CHRONIC KIDNEY DISEASE, UNSPECIFIED 10/14/2016 CUCO LICEA, PRESTON S Ot D64.9 ANEMIA, UNSPECIFIED 10/14/2016 CUCO LICEA, PRESTON S Ot D72.829 ELEVATED WHITE BLOOD CELL COUNT, UNSPECI 10/14/2016 CUCO LICEA, PRESTON S Ot 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 10/14/2016 CUCO LICEA, PRESTON S Ot E11.42 [...] S Ot R80.9 PROTEINURIA, UNSPECIFIED 10/14/2016 ESTUARDO RCIHARDSON APRN Ot E11.621 TYPE 2 DIABETES MELLITUS WITH FOOT ULCER 10/14/2016 ESTUARDO RICHARDSON APRN Ot L97.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 10/14/2016 CUCO LICEA, PRESTON S Ot E87.5 HYPERKALEMIA 10/14/2016 PRESTON NORWOOD MD Ot I12.9 HYPERTENSIVE CHRONIC KIDNEY DISEASE W ST 10/14/2016 PRESTNO NORWOOD MD Ot N18.4 CHRONIC KIDNEY DISEASE, STAGE 4 (SEVERE) 10/14/2016 ESTUARDO RICHARDSON OCCUPATIONAL MEDICINE PHYSICIAN Ot E11.621 TYPE 2 DIABETES MELLITUS WITH FOOT ULCER 10/14/2016 ESTUARDO RICHARDSON OCCUPATIONAL MEDICINE PHYSICIAN Ot L97.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 10/14/2016 PRESTON NORWOOD MD Ot N18.4 CHRONIC KIDNEY DISEASE, STAGE 4 (SEVERE) 10/14/2016 IRENE BRUCE NP-C Ot D63.1 ANEMIA IN CHRONIC KIDNEY DISEASE 10/14/2016 IRENE BRUCE NP-C Ot N18.4 CHRONIC KIDNEY DISEASE, STAGE 4 (SEVERE) 10/14/2016 ESTUARDO RICHARDSON OCCUPATIONAL MEDICINE PHYSICIAN Ot E11.621 TYPE 2 DIABETES MELLITUS WITH FOOT ULCER 10/14/2016 ESTUARDO RICHARDSON OCCUPATIONAL MEDICINE PHYSICIAN Ot L97.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 10/14/2016 ESTUARDO RICHARDSON OCCUPATIONAL MEDICINE PHYSICIAN Ot E11.621 TYPE 2 DIABETES MELLITUS WITH FOOT ULCER 10/14/2016 ESTUARDO RICHARDSON OCCUPATIONAL MEDICINE PHYSICIAN Ot L97.412 NON-PRS CHR ULCER OF RIGHT [...] 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 10/14/2016 PRESTON NORWOOD MD Ot E11.42 TYPE 2 DIABETES MELLITUS WITH DIABETIC P 10/14/2016 PRESTON NORWOOD MD S Ot E55.9 VITAMIN D DEFICIENCY, UNSPECIFIED 10/14/2016 CUCO LICEA, PRESTON S Ot E78.5 HYPERLIPIDEMIA, UNSPECIFIED 10/14/2016 CUCO LICEA, PRESTON S Ot E87.5 HYPERKALEMIA 10/14/2016 CUCO LICEA, MARIBELVALARIE S Ot I13.10 HYP HRT CHR KDNY [...] RIGHT HEEL AND MIDF 10/14/2016 IRENE BRUCE ANATOMY TEACHER-C Ot D64.9 ANEMIA, UNSPECIFIED 10/14/2016 IRENE BRUCE ANATOMY TEACHER-C Ot D72.8 29 ELEVATED WHITE BLOOD CELL COUNT, UNSPECI 10/14/2016 IRENE BRUCE ANATOMY TEACHER-C Ot E11.2 9 TYPE 2 DIABETES MELLITUS W OTH DIABETIC 10/14/2016 IRENE BRUCE ANATOMY TEACHER-C Ot E78.5 HYPERLIPIDEMIA, UNSPECIFIED 10/14/2016 IRENE BRUCE ANATOMY TEACHER-C Ot E87.5 HYPERKALEMIA 10/14/2016 IRENE BRUCE ANATOMY TEACHER-C Ot 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, W S 10/14/2016 IRENE BRUCE NP-C Ot K31.8 4 GASTROPARESIS 10/14/2016 IRENE BRUCE ANATOMY TEACHER-C Ot N18.4 CHRONIC KIDNEY DISEASE, STAGE 4 (SEVERE) 10/14/2016 IRENE BRUCE ANATOMY TEACHER-C Ot R80.9 PROTEINURIA, UNSPECIFIED 10/14/2016 KRIS LICEA, [...] S CEREB ISCHEMIA NOS 10/15/2016 ESTUARDO RICHARDSON OCCUPATIONAL MEDICINE PHYSICIAN Ot E11.621 TYPE 2 DIABETES MELLITUS WITH FOOT ULCER 10/15/2016 ESTUARDO RICHARDSON OCCUPATIONAL MEDICINE PHYSICIAN Ot L97.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 10/15/2016 ESTUARDO RICHARDSON OCCUPATIONAL MEDICINE PHYSICIAN Ot E11.621 TYPE 2 DIABETES MELLITUS WITH FOOT ULCER 10/15/2016 ESTUARDO RICHARDSON OCCUPATIONAL MEDICINE PHYSICIAN Ot L97.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 10/27/2016 ESTUARDO RICHARDSON OCCUPATIONAL MEDICINE PHYSICIAN Ot E11.621 TYPE 2 DIABETES MELLITUS WITH FOOT ULCER 10/27/2016 ESTUARDO RICHARDSON OCCUPATIONAL MEDICINE PHYSICIAN Ot L97.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 11/05/2016 ESTUARDO RICHARDSON OCCUPATIONAL MEDICINE PHYSICIAN Ot E11.621 TYPE 2 DIABETES MELLITUS WITH FOOT ULCER 11/05/2016 ESTUARDO RICHARDSON OCCUPATIONAL MEDICINE PHYSICIAN Ot L97.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 11/05/2016 ESTUARDO RICHARDSON OCCUPATIONAL MEDICINE PHYSICIAN Ot E11.621 TYPE 2 DIABETES MELLITUS WITH FOOT ULCER 11/05/2016 ESTUARDO RICHARDSON OCCUPATIONAL MEDICINE PHYSICIAN Ot L97.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 11/05/2016 ESTUARDO RICHARDSON OCCUPATIONAL MEDICINE PHYSICIAN Ot E11.621 TYPE 2 DIABETES MELLITUS WITH FOOT ULCER 11/05/2016 ESTUARDO RICHARDSON OCCUPATIONAL MEDICINE PHYSICIAN Ot L97.412 NON-PRS CHR ULCER OF RIGHT [...] 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 11/05/2016 CUCO LICEA, PRESTON Granados Ot E11.42 [...] LICEA, MARIBELMED S Ot K31.84 GASTROPARESIS 11/05/2016 CUCO LICEA, MARIBELMED S Ot N18.4 CHRONIC KIDNEY DISEASE, STAGE 4 (SEVERE) 11/05/2016 CUCO LICEA, PRESTON S Ot R80.9 PROTEINURIA, UNSPECIFIED 11/05/2016 KRIS LICEA, LA NENA Garzon Ot E87.5 HYPERKALEMIA 11/05/2016 KRIS LICEA, LA NENA aGrzon Ot 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 7 CARDIOMEGALY 11/09/2016 UMRILA SUTHERLAND MD Ot R07. 9 CHEST PAIN, UNSPECIFIED 11/09/2016 URMILA SUTHERLAND MD Ot E78. 5 HYPERLIPIDEMIA, UNSPECIFIED 11/09/2016 URMILA SUTHERLAND MD Ot I11. 0 HYPERTENSIVE HEART DISEASE WITH HEART FA 11/09/2016 URMILA SUTHERLAND MD Ot I51. 7 CARDIOMEGALY 11/09/2016 URMILA SUTHERLAND MD Ot R07. 9 CHEST PAIN, UNSPECIFIED 11/09/2016 UMRILA SUTHERLAND MD Ot E78. 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 23 OCCLUSION AND STENOSIS OF [place]ILATERAL [place] 11/15/2016 URMILA SUTHERLAND MD Ot I70.293 OTH ATHSCL [place] ARTERIES OF [place] 11/15/2016 URMILA SUTHERLAND MD Ot K21. 9 GASTRO-ESOPHAGEAL REFLUX DISEASE WITHOUT 11/15/2016 URMILA SUTHERLAND MD Ot M81. 0 AGE-RELATED OSTEOPOROSIS W/O CURRENT PAT 11/15/2016 URMILA SUTHERLAND MD, Ot N17. 9 ACUTE KIDNEY FAILURE, UNSPECIFIED 11/15/2016 URMILA SUTHERLAND MD, Ot N18. 9 CHRONIC KIDNEY DISEASE, UNSPECIFIED 11/15/2016 URMILA SUTHERLAND MD Ot R00. 2 PALPITATIONS 11/15/2016 URMILA SUTHERLAND MD Ot Z79. 4 SUPERINTENDENT DIVISION (CURRENT) USE OF INSULIN 11/15/2016 URMILA SUTHERLAND MD Ot Z79.899 OTHER SKILLED NURSING (CURRENT) DRUG THERAPY 11/16/2016 ESTUARDO RICHARDSON OCCUPATIONAL MEDICINE PHYSICIAN Ot E11.621 TYPE 2 DIABETES MELLITUS WITH FOOT ULCER 11/16/2016 ESTUARDO RICHARDSON OCCUPATIONAL MEDICINE PHYSICIAN Ot L97.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 11/17/2016 ESTUARDO RICHARDSON OCCUPATIONAL MEDICINE PHYSICIAN Ot E11.621 TYPE 2 DIABETES MELLITUS WITH FOOT ULCER 11/17/2016 ESTUARDO RICHARDSON OCCUPATIONAL MEDICINE PHYSICIAN Ot L97.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 11/18/2016 ESTUARDO RICHARDSON OCCUPATIONAL MEDICINE PHYSICIAN Ot E11.621 TYPE 2 DIABETES MELLITUS WITH FOOT ULCER 11/18/2016 ESTUARDO RICHARDSON OCCUPATIONAL MEDICINE PHYSICIAN Ot L97.412 NON-PRS CHR ULCER OF RIGHT [...] MD Ot 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 23 OCCLUSION AND STENOSIS OF BILATERAL [place] 11/26/2016 URMILA SUTHERLAND MD Ot I70.293 OTH ATHSCL [place] ARTERIES OF [facility] 11/26/2016 URMILA SUTHERLAND MD Ot K21. 9 GASTRO-ESOPHAGEAL REFLUX DISEASE WITHOUT 11/26/2016 URMILA SUTHERLAND MD Ot M81. 0 AGE-RELATED OSTEOPOROSIS W/O CURRENT PAT 11/26/2016 URMILA SUTHERLAND MD Ot N17. 9 ACUTE KIDNEY FAILURE, UNSPECIFIED 11/26/2016 URMILA SUTHERLAND MD Ot N18. 9 CHRONIC KIDNEY DISEASE, UNSPECIFIED 11/26/2016 URMILA SUTHERLAND MD Ot R00. 2 PALPITATIONS 11/26/2016 URMILA SUTHERLAND MD Ot Z79. 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 23 OCCLUSION AND STENOSIS OF [place]ILATERAL [place] 11/26/2016 URMILA SUTHERLAND MD Ot I70.293 OTH ATHSCL [place] ARTERIES OF [place]TREMIT[place] 11/26/2016 URMILA SUTHERLAND MD, Ot K21. 9 GASTRO-ESOPHAGEAL REFLUX DISEASE WITHOUT 11/26/2016 URMILA SUTHERLAND MD Ot M81. 0 AGE-RELATED OSTEOPOROSIS W/O CURRENT PAT 11/26/2016 URMILA SUTHERLAND MD, Ot N17. 9 ACUTE KIDNEY FAILURE, UNSPECIFIED 11/26/2016 URMILA SUTHERLAND MD, Ot N18. 9 CHRONIC KIDNEY DISEASE, UNSPECIFIED 11/26/2016 URMILA SUTHERLAND MD Ot R00. 2 PALPITATIONS 11/26/2016 URMILA SUTHERLAND MD, Ot Z79. 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 23 OCCLUSION AND STENOSIS OF [place]ILATERAL [place] 12/01/2016 URMILA SUTHERLAND MD Ot I70.293 OTH ATHSCL [place] ARTERIES OF [place] 12/01/2016 URMILA SUTHERLAND MD, Ot K21. 9 GASTRO-ESOPHAGEAL REFLUX DISEASE WITHOUT 12/01/2016 URMILA SUTHERLAND MD, Ot M81. 0 AGE-RELATED OSTEOPOROSIS W/O CURRENT PAT 12/01/2016 URMILA SUTHERLAND MD Ot N17. 9 ACUTE KIDNEY FAILURE, UNSPECIFIED 12/01/2016 URMILA SUTHERLAND MD Ot N18. 9 CHRONIC KIDNEY DISEASE, UNSPECIFIED 12/01/2016 URMILA SUTHERLAND MD Ot R00. 2 PALPITATIONS 12/01/2016 URMILA SUTHERLAND MD Ot Z79. 4 SKILLED NURSING (CURRENT) USE OF INSULIN 12/01/2016 URMILA SUTHERLAND MD Ot Z79.899 OTHER SUPERINTENDENT DIVISION (CURRENT) DRUG THERAPY 12/12/2016 CUCO LICEA, PRESTON [...] DISEASE, STAGE 4 (SEVERE) 12/29/2016 ESTUARDO RICHARDSON OCCUPATIONAL MEDICINE PHYSICIAN Ot E11.621 TYPE 2 DIABETES MELLITUS WITH FOOT ULCER 12/29/2016 ESTUARDO RICHARDSON OCCUPATIONAL MEDICINE PHYSICIAN Ot L97.412 NON-PRS CHR ULCER OF RIGHT [...] Ot D64.9 ANEMIA, UNSPECIFIED 01/12/2017 IRENE BRUCE ANATOMY TEACHER-C Ot N18.4 CHRONIC KIDNEY DISEASE, STAGE 4 (SEVERE) 01/18/2017 ESTUARDO RICHARDSON OCCUPATIONAL MEDICINE PHYSICIAN Ot E11.621 TYPE 2 DIABETES MELLITUS WITH FOOT ULCER 01/18/2017 ESTUARDO RICHARDSON OCCUPATIONAL MEDICINE PHYSICIAN Ot L97.412 NON-PRS CHR ULCER OF RIGHT [...] DISEASE, STAGE 4 (SEVERE) 02/09/2017 IRENE BRUCE ANATOMY TEACHER-C Ot D64.9 ANEMIA, UNSPECIFIED 02/09/2017 IRENE BRUCE ANATOMY TEACHER-C Ot N18.4 CHRONIC KIDNEY DISEASE, STAGE 4 (SEVERE) 02/15/2017 ESTUARDO RICHARDSON OCCUPATIONAL MEDICINE PHYSICIAN Ot E11.621 TYPE 2 DIABETES MELLITUS WITH FOOT ULCER 02/15/2017 ESTUARDO RICHARDSON OCCUPATIONAL MEDICINE PHYSICIAN Ot L97.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 02/16/2017 ESTUARDO RICHARDSON OCCUPATIONAL MEDICINE PHYSICIAN Ot E11.621 TYPE 2 DIABETES MELLITUS WITH FOOT ULCER 02/16/2017 ESTUARDO RICHARDSON OCCUPATIONAL MEDICINE PHYSICIAN Ot L97.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 02/17/2017 ESTUARDO RICHARDSON OCCUPATIONAL MEDICINE PHYSICIAN Ot E11.621 TYPE 2 DIABETES MELLITUS WITH FOOT ULCER 02/17/2017 ESTUARDO RICHARDSON OCCUPATIONAL MEDICINE PHYSICIAN Ot L97.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 02/17/2017 CUCO LICEA, PRESTON S Ot N18.4 CHRONIC KIDNEY DISEASE, STAGE 4 (SEVERE) 02/17/2017 CUCO LICEA, AHMED S Ot N18.4 CHRONIC KIDNEY DISEASE, STAGE 4 (SEVERE) 02/19/2017 ESTUARDO RICHARDSON OCCUPATIONAL MEDICINE PHYSICIAN Ot E11.621 TYPE 2 DIABETES MELLITUS WITH FOOT ULCER 02/19/2017 ESTUARDO RICHARDSON OCCUPATIONAL MEDICINE PHYSICIAN Ot L97.412 NON-PRS CHR ULCER OF RIGHT [...] KIDNEY DISEASE, STAGE 4 (SEVERE) 03/09/2017 NEWIRENE ANATOMY TEACHER-C Ot D64.9 ANEMIA, UNSPECIFIED 03/09/2017 NEWIRENE ANATOMY TEACHER-C Ot N18.4 CHRONIC KIDNEY DISEASE, STAGE 4 (SEVERE) 03/23/2017 NEW IRENE G. ANATOMY TEACHER-C Ot D64.9 ANEMIA, UNSPECIFIED 03/23/2017 NEW, IRENE Gandara ANATOMY TEACHER-C Ot N18.4 CHRONIC KIDNEY DISEASE, STAGE 4 (SEVERE) 03/29/2017 IRENE BRUCE ANATOMY TEACHER-C Ot D63.1 ANEMIA IN CHRONIC KIDNEY DISEASE 03/29/2017 NEW, IRENE G. ANATOMY TEACHER-C Ot D64.9 ANEMIA, UNSPECIFIED 03/29/2017 NEW IRENE GLino ANATOMY TEACHER-C Ot N18.4 CHRONIC KIDNEY DISEASE, STAGE 4 (SEVERE) 04/06/2017 NEW IRENE G. ANATOMY TEACHER-C Ot D64.9 ANEMIA, UNSPECIFIED 04/06/2017 NEWIRENE ANATOMY TEACHER-C Ot N18.4 CHRONIC KIDNEY DISEASE, STAGE 4 (SEVERE) 04/06/2017 CUCO LICEA, PRESTON S Ot N18.4 CHRONIC KIDNEY DISEASE, STAGE 4 (SEVERE) 04/06/2017 NEWIRENE ANATOMY TEACHER-C Ot D64.9 ANEMIA, UNSPECIFIED 04/06/2017 NEWIRENE ANATOMY TEACHER-C Ot N18.4 CHRONIC KIDNEY DISEASE, STAGE 4 (SEVERE) 04/07/2017 IRENE BRUCE ANATOMY TEACHER-C Ot D64.9 ANEMIA, UNSPECIFIED 04/07/2017 NEWIRENE ANATOMY TEACHER-C Ot N18.4 CHRONIC KIDNEY DISEASE, STAGE 4 (SEVERE) 04/20/2017 IRENE BRUCE ANATOMY TEACHER-C Ot D64.9 ANEMIA, UNSPECIFIED 04/20/2017 IRENE BRUCE ANATOMY TEACHER-C Ot N18.4 CHRONIC KIDNEY DISEASE, STAGE 4 [...] M PRE- OPERATIVE NOS 04/29/2017 SHEA MAYFIELD ENGINE LATHE OPERATOR Ot 793.89 OTH (ABN) FINDINGS ON RADIOLOGICAL EXAMI 04/29/2017 SHEA MAYFIELDP Ot V76.12 OTH SCREEN MAMMO-MALIGN NEOPLASM OF YING 04/29/2017 MARGARITA CORDERO DO S Ot 793.89 OTH (ABN) FINDINGS ON RADIOLOGICAL EXAMI 04/29/2017 Ot 250.82 WAYNE B W OTH SPEC MANIFEST, TYPE II OR UNS 04/29/2017 Ot 440.23 ATH EROSCL [place] ARTER EXTREMITIES W ULC 04/29/2017 Ot 707.13 [...] ALBA LICEA, OLYA Joaquin Ot 250.00 DIAB CHRAO WO COMPL, TYPE II OR UNSPEC TY [...] BLOOD CELL COUNT, UNSPECI 04/29/2017 IRENE BRUCE ANATOMY TEACHER-C Ot E11.2 9 TYPE 2 DIABETES MELLITUS W OTH DIABETIC 04/29/2017 IRENE BRUCE ANATOMY TEACHER-C Ot E78.5 HYPERLIPIDEMIA, UNSPECIFIED 04/29/2017 NEWIRENE ANATOMY TEACHER-C Ot E87.5 HYPERKALEMIA 04/29/2017 IRENE BRUCE ANATOMY TEACHER-C Ot 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, W S 04/29/2017 IRENE BRUCE ANATOMY TEACHER-C Ot K31.8 4 GASTROPARESIS 04/29/2017 TEO IRENE Gandara ANATOMY TEACHER-C Ot N18.4 CHRONIC KIDNEY DISEASE, STAGE 4 (SEVERE) 04/29/2017 TEOIRENE ANATOMY TEACHER-C Ot R80.9 PROTEINURIA, UNSPECIFIED 04/29/2017 ALBA LICEA, OLYA Joaquin Ot I12 .9 [...] 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 04/29/2017 PRESTON NORWOOD MD Ot E11.42 TYPE [...] DISEASE, STAGE 4 (SEVERE) 04/29/2017 ESTUARDO RICHARDSON OCCUPATIONAL MEDICINE PHYSICIAN Ot E11.621 TYPE 2 DIABETES MELLITUS WITH [...] DISEASE, STAGE 4 (SEVERE) 04/29/2017 ESTUARDO RICHARDSON OCCUPATIONAL MEDICINE PHYSICIAN Ot E11.621 TYPE 2 DIABETES MELLITUS WITH FOOT ULCER 04/29/2017 ESTUARDO RICHARDSON OCCUPATIONAL MEDICINE PHYSICIAN Ot L97.412 NON-PRS CHR ULCER OF RIGHT [...] LICEA, PRESTON Granados Ot R30.0 DYSURIA 05/17/2017 ESTUARDO RICHARDSON OCCUPATIONAL MEDICINE PHYSICIAN Ot E11.621 TYPE 2 DIABETES MELLITUS WITH FOOT ULCER 05/17/2017 ESTUARDO RICHARDSON OCCUPATIONAL MEDICINE PHYSICIAN Ot L97.412 NON-PRS CHR ULCER OF RIGHT [...] M PRE- OPERATIVE NOS 05/18/2017 SHEA MAYFIELD ENGINE LATHE OPERATOR Ot 793.89 OTH (ABN) FINDINGS ON RADIOLOGICAL EXAMI 05/18/2017 SHEA MAYFIELD ENGINE LATHE OPERATOR Ot V76.12 OTH SCREEN MAMMO-MALIGN NEOPLASM OF YING 05/18/2017 MARGARITA CORDERO DO S Ot 793.89 OTH (ABN) FINDINGS ON RADIOLOGICAL EXAMI 05/18/2017 Ot 250.82 WAYNE B W OT SPEC MANIFEST, TYPE II OR UNS 05/18/2017 Ot 440.23 ATH EROSCL [place] ARTER EXTREMITIES W ULC 05/18/2017 Ot 707.13 ULC ER OF ANKLE 05/18/2017 Ot 707.14 ULC ER OF HEEL AND MIDFOOT 05/18/2017 Ot 998.83 NON -HEALING SURG WOUND 05/18/2017 Ot V54.19 AFT ERCARE HEALING TRAUMATIC FX OTHER BON 05/18/2017 Ot 996.66 INF EC INFLAM REACT DUE TO INTERNL JOIN 05/18/2017 Ot V43.[address] [facility] ER JOINT REPLACEMENT STATUS 05/18/2017 Ot V58.62 [...] DUE TO INTERNL JOIN 05/18/2017 Ot V43.[address] [facility] ER JOINT REPLACEMENT STATUS 05/18/2017 Ot V58.62 [...] RIGHT HEEL AND MIDF 05/18/2017 IRENE BRUCE ANATOMY TEACHER-C Ot D64.9 ANEMIA, UNSPECIFIED 05/18/2017 IRENE BRUCE ANATOMY TEACHER-C Ot D72.8 29 ELEVATED WHITE BLOOD CELL COUNT, UNSPECI 05/18/2017 IRENE BRUCE ANATOMY TEACHER-C Ot E11.2 9 TYPE 2 DIABETES MELLITUS W OTH DIABETIC 05/18/2017 IERNE BRUCE ANATOMY TEACHER-C Ot E78.5 HYPERLIPIDEMIA, UNSPECIFIED 05/18/2017 IRENE BRUCE ANATOMY TEACHER-C Ot E87.5 HYPERKALEMIA 05/18/2017 IRENE BRUCE NP-C Ot 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, W S 05/18/2017 IRENE BRUCE ANATOMY TEACHER-C Ot K31.8 4 GASTROPARESIS 05/18/2017 IRENE BRUCE ANATOMY TEACHER-C Ot N18.4 CHRONIC KIDNEY DISEASE, STAGE 4 (SEVERE) 05/18/2017 TEOIRENELino ANATOMY TEACHER-C Ot R80.9 PROTEINURIA, UNSPECIFIED 05/18/2017 ALBA LICEA, [...] 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 05/18/2017 CUCO LICEA, AHVALARIE S Ot E11.42 [...] DISEASE, STAGE 4 (SEVERE) 05/18/2017 ESTUARDO RICHARDSON OCCUPATIONAL MEDICINE PHYSICIAN Ot E11.621 TYPE 2 DIABETES MELLITUS WITH FOOT ULCER 05/18/2017 ESTUARDO RICHARDSON OCCUPATIONAL MEDICINE PHYSICIAN Ot L97.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 05/18/2017 PRESTON NORWOOD MD Ot N18.4 CHRONIC KIDNEY DISEASE, STAGE 4 (SEVERE) 05/18/2017 IRENE BRUCE NP-C Ot D63.1 ANEMIA IN CHRONIC KIDNEY DISEASE 05/18/2017 IRENE BRUCE NP-C Ot N18.4 CHRONIC KIDNEY DISEASE, STAGE 4 (SEVERE) 05/18/2017 ESTUARDO RICHARDSON OCCUPATIONAL MEDICINE PHYSICIAN Ot E11.621 TYPE 2 DIABETES MELLITUS WITH FOOT ULCER 05/18/2017 ESTUARDO RICHARDSON OCCUPATIONAL MEDICINE PHYSICIAN Ot L97.412 NON-PRS CHR ULCER OF RIGHT [...] MD Ot R30.0 DYSURIA 05/18/2017 ESTUARDO RICHARDSON OCCUPATIONAL MEDICINE PHYSICIAN Ot E11.621 TYPE 2 DIABETES MELLITUS WITH FOOT ULCER 05/18/2017 ESTUARDO RICHARDSON OCCUPATIONAL MEDICINE PHYSICIAN Ot L97.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 05/18/2017 IRENE BRUCE NP-C Ot D64.9 ANEMIA, UNSPECIFIED 05/18/2017 IRENE BRUCE NP-C Ot N18.4 CHRONIC KIDNEY DISEASE, STAGE 4 (SEVERE) 05/25/2017 ESTUARDO RICHARDSON OCCUPATIONAL MEDICINE PHYSICIAN Ot E11.621 TYPE 2 DIABETES MELLITUS WITH FOOT ULCER 05/25/2017 ESTUARDO RICHARDSON OCCUPATIONAL MEDICINE PHYSICIAN Ot L97.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 05/26/2017 ESTUARDO RICHARDSON OCCUPATIONAL MEDICINE PHYSICIAN Ot E11.621 TYPE 2 DIABETES MELLITUS WITH FOOT ULCER 05/26/2017 ESTUARDO RICHARDSON OCCUPATIONAL MEDICINE PHYSICIAN Ot L97.412 NON-PRS CHR ULCER OF RIGHT [...] 9 CHEST PAIN, UNSPECIFIED 06/29/2017 ESTUARDO RICHARDSON OCCUPATIONAL MEDICINE PHYSICIAN Ot E11.621 TYPE 2 DIABETES MELLITUS WITH FOOT ULCER 06/29/2017 ESTUARDO RICHARDSON OCCUPATIONAL MEDICINE PHYSICIAN Ot I87.312 CHRONIC VENOUS HYPERTENSION W ULCER OF L 06/29/2017 ESTUARDO RICHARDSON OCCUPATIONAL MEDICINE PHYSICIAN Ot L97.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 06/29/2017 ESTUARDO RICHARDSON OCCUPATIONAL MEDICINE PHYSICIAN Ot N18.4 CHRONIC KIDNEY DISEASE, STAGE 4 (SEVERE) 06/29/2017 ESTUARDO RICHARDSON OCCUPATIONAL MEDICINE PHYSICIAN Ot R60.1 GENERALIZED EDEMA 07/05/2017 IRENE BRUCE ANATOMY TEACHER-C Ot D63.1 ANEMIA IN CHRONIC KIDNEY DISEASE 07/05/2017 IRENE BRUCE ANATOMY TEACHER-C Ot N18.4 CHRONIC KIDNEY DISEASE, STAGE 4 (SEVERE) 07/05/2017 ESTUARDO RICHARDSON OCCUPATIONAL MEDICINE PHYSICIAN Ot E11.621 TYPE 2 DIABETES MELLITUS WITH FOOT ULCER 07/05/2017 ESTUARDO RICHARDSON OCCUPATIONAL MEDICINE PHYSICIAN Ot L97.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 07/05/2017 ESTUARDO RICHARDSON OCCUPATIONAL MEDICINE PHYSICIAN Ot N18.4 CHRONIC KIDNEY DISEASE, STAGE 4 (SEVERE) 07/05/2017 ESTUARDO RICHARDSON OCCUPATIONAL MEDICINE PHYSICIAN Ot R60.1 GENERALIZED EDEMA 07/07/2017 ESTUARDO RICHARDSON OCCUPATIONAL MEDICINE PHYSICIAN Ot L97.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 07/13/2017 IRENE BRUCE ANATOMY TEACHER-C Ot D63.1 ANEMIA IN CHRONIC KIDNEY DISEASE 07/13/2017 IRENE BRUCE ANATOMY TEACHER-C Ot N18.4 CHRONIC KIDNEY DISEASE, STAGE 4 (SEVERE) 07/14/2017 IRENE BRUCE ANATOMY TEACHER-C Ot D63.1 ANEMIA IN CHRONIC KIDNEY DISEASE 07/14/2017 IRENE BRUCE ANATOMY TEACHER-C Ot N18.4 CHRONIC KIDNEY DISEASE, STAGE 4 [...] TYP E 2 DIABETES MELLITUS W DIABETIC MACHINE GUNNER 07/15/2017 Ot N18.4 MACHINE GUNNER ERNESTO KIDNEY DISEASE, STAGE 4 (SEVERE) 07/20/2017 [...] K31.8 4 GASTROPARESIS 07/21/2017 NEW, IRENE Gandara ANATOMY TEACHER-C Ot N18.4 CHRONIC KIDNEY DISEASE, STAGE 4 (SEVERE) 07/21/2017 NEW, IRENE GLino ANATOMY TEACHER-C Ot N25.8 1 SECONDARY HYPERPARATHYROIDISM OF RENAL O 07/21/2017 NEW, IRENE Gandara ANATOMY TEACHER-C Ot R80.8 OTHER PROTEINURIA 07/21/2017 NEW, IRENE GLino ANATOMY TEACHER-C Ot D64.9 ANEMIA, UNSPECIFIED 07/21/2017 NEW, IRENE GLino ANATOMY TEACHER-C Ot E11.2 9 TYPE 2 DIABETES MELLITUS W OTH DIABETIC 07/21/2017 NEW, IRENE GLino ANATOMY TEACHER-C Ot E11.4 0 TYPE 2 DIABETES MELLITUS WITH DIABETIC N 07/21/2017 NEW, IRENE GLino ANATOMY TEACHER-C Ot E55.9 VITAMIN D DEFICIENCY, UNSPECIFIED 07/21/2017 NEW, IRENE GLino ANATOMY TEACHER-C Ot E78.5 HYPERLIPIDEMIA, UNSPECIFIED 07/21/2017 NEW, IRENE HarryLino ANATOMY TEACHER-C Ot E87.5 HYPERKALEMIA 07/21/2017 NEW, IRENE GLino ANATOMY TEACHER-C Ot 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 ANATOMY TEACHER-C Ot D63.1 ANEMIA IN CHRONIC KIDNEY DISEASE 07/24/2017 NEW, IRENE G. ANATOMY TEACHER-C Ot N18.4 CHRONIC KIDNEY DISEASE, STAGE 4 (SEVERE) 07/30/2017 NEW, IRENE HarryLino ANATOMY TEACHER-C Ot D64.9 ANEMIA, UNSPECIFIED 07/30/2017 NEW, IRENE G. 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, W S 07/30/2017 TEOIRENE ANATOMY TEACHER-C Ot K31.8 4 GASTROPARESIS 07/30/2017 TEO IERNE Gandara ANATOMY TEACHER-C Ot N18.4 CHRONIC KIDNEY DISEASE, STAGE 4 (SEVERE) 07/30/2017 TEO IRENE Gandara ANATOMY TEACHER-C Ot N25.8 1 SECONDARY HYPERPARATHYROIDISM OF RENAL O 07/30/2017 TEO IRENE Gandara ANATOMY TEACHER-C Ot R80.8 OTHER PROTEINURIA 08/05/2017 ALBA LICEA, OLYA Joaquin Ot 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 08/05/2017 OLYA WILLIS MD Ot M79 .9 SOFT TISSUE DISORDER, UNSPECIFIED 08/05/2017 ALBA LICEA, OLYA Joaquin Ot R93 .7 ABNORMAL FINDINGS ON DIAGNOSTIC IMAGING 08/10/2017 TEO IRENE McdonaldLino ANATOMY TEACHER-C Ot D63.1 ANEMIA IN CHRONIC KIDNEY DISEASE 08/10/2017 TEO IRENE Gandara ANATOMY TEACHER-C Ot N18.4 CHRONIC KIDNEY DISEASE, STAGE 4 (SEVERE) 08/10/2017 TEO IRENE McdonaldLino ANATOMY TEACHER-C Ot D63.1 ANEMIA IN CHRONIC KIDNEY DISEASE 08/10/2017 NEW IRENE Gandara ANATOMY TEACHER-C Ot N18.4 CHRONIC KIDNEY DISEASE, STAGE 4 (SEVERE) 08/11/2017 TEO IRENE McdonaldLino ANATOMY TEACHER-C Ot D63.1 ANEMIA IN CHRONIC KIDNEY DISEASE 08/11/2017 TEO IRENE Gandara ANATOMY TEACHER-C Ot N18.4 CHRONIC KIDNEY DISEASE, STAGE 4 (SEVERE) 08/16/2017 OLYA WILLIS MD Ot 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 08/16/2017 OLYA WILLIS MD, Ot M79 .9 SOFT TISSUE DISORDER, UNSPECIFIED 08/16/2017 OLYA WILLIS MD Ot R93 .7 ABNORMAL FINDINGS ON DIAGNOSTIC IMAGING 08/24/2017 OLYA WILLIS MD Ot 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 08/24/2017 OLYA WILLIS MD, Ot E11.621 TYPE [...] 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 08/31/2017 OLYA WILLIS MD, Ot E11.621 TYPE [...] N19 UNSPECIFIED KIDNEY FAILURE 09/06/2017 IRENE BRUCE ANATOMY TEACHER-C Ot D63.1 ANEMIA IN CHRONIC KIDNEY DISEASE 09/06/2017 IRENE BRUCE ANATOMY TEACHER-C Ot N18.4 CHRONIC KIDNEY DISEASE, STAGE 4 (SEVERE) 09/07/2017 IRENE BRUCE ANATOMY TEACHER-C Ot D63.1 ANEMIA IN CHRONIC KIDNEY DISEASE 09/07/2017 IRENE BRUCE ANATOMY TEACHER-C Ot N18.4 CHRONIC KIDNEY DISEASE, STAGE 4 (SEVERE) 09/07/2017 IRENE BRUCE ANATOMY TEACHER-C Ot D63.1 ANEMIA IN CHRONIC KIDNEY DISEASE 09/07/2017 IRENE BRUCE ANATOMY TEACHER-C Ot N18.4 CHRONIC KIDNEY DISEASE, STAGE 4 (SEVERE) 09/29/2017 CUCO LICEA, PRESTON Granados Ot Z00.00 ENCNTR FOR GENERAL ADULT MEDICAL EXAM W/ 10/12/2017 IRENE BRUCE ANATOMY TEACHER-C Ot D63.1 ANEMIA IN CHRONIC KIDNEY DISEASE 10/12/2017 IRENE BRUCE ANATOMY TEACHER-C Ot N18.4 CHRONIC KIDNEY DISEASE, STAGE 4 (SEVERE) 11/08/2017 IRENE BRUCE ANATOMY TEACHER-C Ot D63.1 ANEMIA IN CHRONIC KIDNEY DISEASE 11/08/2017 IRENE BRUCE ANATOMY TEACHER-C Ot N18.4 CHRONIC KIDNEY DISEASE, STAGE 4 (SEVERE) 11/26/2017 ALBA LICEA, OLYA Joaquin Ot 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 11/26/2017 OLYA WILLIS MD Ot E11.621 TYPE [...] M PRE- OPERATIVE NOS 11/26/2017 SHEA MAYFIELD ENGINE LATHE OPERATOR Ot 793.89 OTH (ABN) FINDINGS ON RADIOLOGICAL EXAMI 11/26/2017 SHEA MAYFIELD ENGINE LATHE OPERATOR Ot V76.12 OTH SCREEN MAMMO-MALIGN NEOPLASM OF YING 11/26/2017 BARBIE DOMARGARITA S Ot 793.89 OTH (ABN) FINDINGS ON RADIOLOGICAL EXAMI 11/26/2017 Ot 250.82 WAYNE B W OTH SPEC MANIFEST, TYPE II OR UNS 11/26/2017 Ot 440.23 ATH EROSCL [place] ARTER EXTREMITIES W ULC 11/26/2017 Ot 707.13 ULC ER OF ANKLE 11/26/2017 Ot 707.14 ULC ER OF HEEL AND MIDFOOT 11/26/2017 Ot 998.83 NON -HEALING SURG WOUND 11/26/2017 Ot V54.19 AFT ERCARE HEALING TRAUMATIC FX OTHER BON 11/26/2017 Ot 996.66 INF EC INFLAM REACT DUE TO INTERNL JOIN 11/26/2017 Ot V43.[address] [facility] ER JOINT REPLACEMENT STATUS 11/26/2017 Ot V58.62 ENC OUNT FOR LONG- TERM(CURRENT) USE OF AN 11/26/2017 Ot 996.66 INF EC INFLAM REACT DUE TO INTERNL JOIN 11/26/2017 Ot V43.[address] [facility] ER JOINT REPLACEMENT STATUS 11/26/2017 Ot V58.62 ENC OUNT FOR LONG- TERM(CURRENT) USE OF AN 11/26/2017 Ot V58.62 ENC OUNT FOR LONG- TERM(CURRENT) USE OF AN 11/26/2017 Ot V58.83 ENC OUNTER FOR THERAPEUTIC DRUG MONITORIN 11/26/2017 Ot 998.83 NON -HEALING SURG WOUND 11/26/2017 Ot 996.66 INF EC INFLAM REACT DUE TO INTERNL JOIN 11/26/2017 Ot V43.[address] 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, W S 11/26/2017 IRENE BRUCE ANATOMY TEACHER-C Ot K31.8 4 GASTROPARESIS 11/26/2017 IRENE BRUCE ANATOMY TEACHER-C Ot N18.4 CHRONIC KIDNEY DISEASE, STAGE 4 (SEVERE) 11/26/2017 IRENE BRUCE ANATOMY TEACHER-C Ot R80.9 PROTEINURIA, UNSPECIFIED 11/26/2017 ALBA LICEA, [...] 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 11/26/2017 CUCO LICEA, MARIBELMED S Ot E11.42 [...] STAGE 4 (SEVERE) 11/26/2017 DEBRA, ESTUARDO R OCCUPATIONAL MEDICINE PHYSICIAN Ot E11.621 TYPE 2 DIABETES MELLITUS WITH FOOT ULCER 11/26/2017 ESTUARDO RICHARDSON OCCUPATIONAL MEDICINE PHYSICIAN Ot L97.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 11/26/2017 CUCO LICEA, PRESTON Granados Ot N18.4 CHRONIC KIDNEY DISEASE, STAGE 4 (SEVERE) 11/26/2017 IRENE BRUCE ANATOMY TEACHER-C Ot D63.1 ANEMIA IN CHRONIC KIDNEY DISEASE 11/26/2017 IRENE BRUCE NP-C Ot N18.4 CHRONIC KIDNEY DISEASE, STAGE 4 (SEVERE) 11/26/2017 ESTUARDO RICHARDSON OCCUPATIONAL MEDICINE PHYSICIAN Ot E11.621 TYPE 2 DIABETES MELLITUS WITH FOOT ULCER 11/26/2017 ESTUARDO RICHARDSON OCCUPATIONAL MEDICINE PHYSICIAN Ot L97.412 NON-PRS CHR ULCER OF RIGHT [...] Granados Ot I50.9 HEART FAILURE, UNSPECIFIED 11/26/2017 CUCO LICEA, PRESTON S Ot N18.4 CHRONIC KIDNEY DISEASE, STAGE 4 (SEVERE) 11/26/2017 PRESTON NORWOOD MD S Ot N18.4 CHRONIC KIDNEY DISEASE, STAGE 4 (SEVERE) 11/26/2017 CUCO LICEA, PRESTON S Ot 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, W S 11/26/2017 PRESTON NORWOOD MD Ot N18.4 CHRONIC KIDNEY DISEASE, STAGE 4 (SEVERE) 11/26/2017 PRESOTN NORWOOD MD, Ot N18.4 CHRONIC KIDNEY DISEASE, [...] E88.09 OTH DISORDERS OF PLASMA-PROTEIN METABOLI 11/26/2017 PERSTON NORWOOD MD S Ot I12.9 HYPERTENSIVE CHRONIC KIDNEY DISEASE W ST 11/26/2017 PRESTON NORWOOD MD S Ot K31.84 GASTROPARESIS 11/26/2017 PRESTON NORWOOD MD S Ot N18.4 CHRONIC KIDNEY DISEASE, STAGE 4 (SEVERE) 11/26/2017 PRESTON NORWOOD MD S Ot N25.81 SECONDARY HYPERPARATHYROIDISM OF RENAL O 11/26/2017 PRESTON NORWOOD MD S Ot R80.9 PROTEINURIA, UNSPECIFIED 11/26/2017 ESTUARDO RICHARDSON OCCUPATIONAL MEDICINE PHYSICIAN Ot E11.621 TYPE 2 DIABETES MELLITUS WITH FOOT ULCER 11/26/2017 ESTUARDO RICHARDSON APRN Ot I87.312 CHRONIC VENOUS HYPERTENSION W ULCER OF L 11/26/2017 DEBRA, ESTUARDO R OCCUPATIONAL MEDICINE PHYSICIAN Ot L97.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 11/26/2017 ESTUARDO RICHARDSON OCCUPATIONAL MEDICINE PHYSICIAN Ot N18.4 CHRONIC KIDNEY DISEASE, STAGE 4 (SEVERE) 11/26/2017 ESTUARDO RICHARDSON OCCUPATIONAL MEDICINE PHYSICIAN Ot R60.1 GENERALIZED EDEMA 11/26/2017 ESTUARDO RICHARDSON OCCUPATIONAL MEDICINE PHYSICIAN Ot E11.621 TYPE 2 DIABETES MELLITUS WITH FOOT ULCER 11/26/2017 ESTUARDO RICHARDSON OCCUPATIONAL MEDICINE PHYSICIAN Ot L97.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 11/26/2017 ESTUARDO RICHARDSON OCCUPATIONAL MEDICINE PHYSICIAN Ot N18.4 CHRONIC KIDNEY DISEASE, STAGE 4 (SEVERE) 11/26/2017 ESTUARDO RICHARDSON OCCUPATIONAL MEDICINE PHYSICIAN Ot R60.1 GENERALIZED EDEMA 11/26/2017 Ot D64.9 ANEM IA, UNSPECIFIED 11/26/2017 Ot 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 11/26/2017 Ot N18.4 MACHINE GUNNER ERNESTO KIDNEY DISEASE, STAGE 4 (SEVERE) 11/26/2017 ESTUARDO RICHARDSON OCCUPATIONAL MEDICINE PHYSICIAN Ot L97.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 11/26/2017 IRENE BRUCE ANATOMY TEACHER-C Ot D64.9 ANEMIA, UNSPECIFIED 11/26/2017 IRENE BRUCE ANATOMY TEACHER-C Ot E11.2 9 TYPE 2 DIABETES MELLITUS W OTH DIABETIC 11/26/2017 IRENE BRUCE ANATOMY TEACHER-C Ot E11.4 0 TYPE 2 DIABETES MELLITUS WITH DIABETIC N 11/26/2017 IRENE BRUCE ANATOMY TEACHER-C Ot E55.9 VITAMIN D DEFICIENCY, UNSPECIFIED 11/26/2017 IRENE BRUCE ANATOMY TEACHER-C Ot E78.5 HYPERLIPIDEMIA, UNSPECIFIED 11/26/2017 IRENE BRUCE ANATOMY TEACHER-C Ot E87.5 HYPERKALEMIA 11/26/2017 IRENE BRUCE ANATOMY TEACHER-C Ot 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, W S 11/26/2017 IRENE BRUCE ANATOMY TEACHER-C Ot K31.8 4 GASTROPARESIS 11/26/2017 IRENE BRUCE ANATOMY TEACHER-C Ot N18.4 CHRONIC KIDNEY DISEASE, STAGE 4 (SEVERE) 11/26/2017 IRENE BRUCE ANATOMY TEACHER-C Ot N25.8 1 SECONDARY HYPERPARATHYROIDISM OF RENAL [...] 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 11/26/2017 OLYA WILLIS MD, Ot E11.621 TYPE [...] 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 07/12/2018 NATTY BUTCHER MD Ot E78.00 PURE [...] UNSPECIFIED 07/12/2018 NATTY BUTCHER MD, Ot Z79.02 SKILLED NURSING (CURRENT) USE OF ANTITHROMBOTI 07/12/2018 NATTY BUTCHER MD Ot Z79.4 SKILLED NURSING (CURRENT) USE OF INSULIN 07/12/2018 NATTY BUTCHER MD, Ot Z80.3 FAMILY HISTORY OF MALIGNANT NEOPLASM OF 07/12/2018 NATTY BUTCHER MD, Ot Z82.49 FAMILY HX OF ISCHEM HEART DIS AND OTH DI 07/12/2018 NATTY BUTCHER MD, Ot Z85.820 PERSONAL HISTORY OF MALIGNANT MELANOMA O 07/12/2018 NATTY BUTCEHR MD, Ot Z86.73 PRSNL HX OF TIA [...] 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 07/14/2018 NATTY BUTCHER MD Ot E78.00 PURE [...] K21.9 GASTRO-ESOPHAGEAL REFLUX DISEASE WITHOUT 07/14/2018 NATTY BUTCHER MD, Ot M81.0 AGE-RELATED OSTEOPOROSIS W/O CURRENT PAT 07/14/2018 NATTY BUTCHER MD, Ot N18.6 END STAGE RENAL DISEASE 07/14/2018 NATTY BUTCHER MD, Ot R00.1 BRADYCARDIA, UNSPECIFIED 07/14/2018 NATTY BUTCHER MD, Ot R41.82 ALTERED MENTAL STATUS, UNSPECIFIED 07/14/2018 NATTY BUTCHER MD, Ot Z79.02 SKILLED NURSING (CURRENT) USE OF ANTITHROMBOTI 07/14/2018 NATTY BUTCHER MD, Ot Z79.4 SKILLED NURSING (CURRENT) USE OF INSULIN 07/14/2018 NATTY BUTCHER MD, Ot Z80.3 FAMILY HISTORY OF MALIGNANT NEOPLASM OF 07/14/2018 NATTY BUTCHER MD, Ot Z82.49 FAMILY HX OF ISCHEM HEART DIS AND OTH DI 07/14/2018 NATTY BUTCHER MD, Ot Z85.820 PERSONAL HISTORY OF MALIGNANT MELANOMA O 07/14/2018 NTATY BUTCHER MD, Ot Z86.73 PRSNL HX OF [...] DEPENDENCE ON RENAL DIALYSIS 03/29/2019 SHEA MAYFIELD ENGINE LATHE OPERATOR Ot 793.89 OTH (ABN) FINDINGS ON RADIOLOGICAL EXAMI 03/29/2019 SHEA MAYFIELD ENGINE LATHE OPERATOR Ot V76.12 OTH SCREEN MAMMO-MALIGN NEOPLASM OF YING 03/29/2019 OREMARGARITA PEREZ DO S Ot 793.89 OTH (ABN) FINDINGS ON RADIOLOGICAL EXAMI 03/29/2019 Ot 250.82 WAYNE B W OTH SPEC MANIFEST, TYPE II OR UNS 03/29/2019 Ot 440.23 ATH EROSCL [place] ARTER EXTREMITIES W ULC 03/29/2019 Ot 707.13 ULC ER OF ANKLE 03/29/2019 Ot 707.14 ULC ER OF HEEL AND MIDFOOT 03/29/2019 Ot 998.83 NON -HEALING SURG WOUND 03/29/2019 Ot V54.19 AFT [facility]CARE HEALING TRAUMATIC FX OTHER BON 03/29/2019 Ot 996.66 INF EC INFLAM REACT DUE TO INTERNL JOIN 03/29/2019 Ot V43.[address] [facility] ER JOINT REPLACEMENT STATUS 03/29/2019 Ot V58.62 ENC OUNT FOR LONG- TERM(CURRENT) USE OF AN 03/29/2019 Ot 996.66 INF EC INFLAM REACT DUE TO INTERNL JOIN 03/29/2019 Ot V43.[address] [facility] ER JOINT REPLACEMENT STATUS 03/29/2019 Ot V58.62 [...] E78.5 HYPERLIPIDEMIA, UNSPECIFIED 03/29/2019 NEW, IRENE Gandara ANATOMY TEACHER-C Ot E87.5 HYPERKALEMIA 03/29/2019 NEW, IRENE Gandara ANATOMY TEACHER-C Ot 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, W S 03/29/2019 NEW, IRENE Gandara ANATOMY TEACHER-C Ot K31.8 4 GASTROPARESIS 03/29/2019 NEW, IRENE Gandara ANATOMY TEACHER-C Ot N18.4 CHRONIC KIDNEY DISEASE, STAGE 4 (SEVERE) 03/29/2019 NEW, IRENE Gandara ANATOMY TEACHER-C Ot R80.9 PROTEINURIA, UNSPECIFIED 03/29/2019 ALBA LICEA, [...] CHRONIC KIDNEY DISEASE, STAGE 4 (SEVERE) 03/29/2019 LABA LICEA, OLYA Joaquin Ot D64 .9 ANEMIA, UNSPECIFIED 03/29/2019 ALBA LICEA, OLYA Joaquin Ot N18 .9 CHRONIC KIDNEY DISEASE, UNSPECIFIED 03/29/2019 CUCO LICEA, PRESTON S Ot D64.9 ANEMIA, UNSPECIFIED 03/29/2019 CUCO LICEA, MARIBELMED S Ot D72.829 ELEVATED WHITE BLOOD CELL COUNT, UNSPECI 03/29/2019 CUCO LICEA, AHMED S Ot 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 03/29/2019 CUCO LICEA, AHMED S Ot E11.42 [...] DISEASE, STAGE 4 (SEVERE) 03/29/2019 ESTUARDO RICHARDSON OCCUPATIONAL MEDICINE PHYSICIAN Ot E11.621 TYPE 2 DIABETES MELLITUS WITH FOOT ULCER 03/29/2019 ESTUARDO RICHARDSON OCCUPATIONAL MEDICINE PHYSICIAN Ot L97.412 NON-PRS CHR ULCER OF RIGHT [...] Ot R80.9 PROTEINURIA, UNSPECIFIED 03/29/2019 ESTUARDO RICHARDSON OCCUPATIONAL MEDICINE PHYSICIAN Ot E11.621 TYPE 2 DIABETES MELLITUS WITH FOOT ULCER 03/29/2019 ESTUARDO RICHARDSON R OCCUPATIONAL MEDICINE PHYSICIAN Ot I87.312 CHRONIC VENOUS HYPERTENSION W ULCER OF L 03/29/2019 ESTUARDO RICHARDSON OCCUPATIONAL MEDICINE PHYSICIAN Ot L97.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 03/29/2019 ESTUARDO RICHARDSON OCCUPATIONAL MEDICINE PHYSICIAN Ot N18.4 CHRONIC KIDNEY DISEASE, STAGE 4 (SEVERE) 03/29/2019 ESTUARDO RICHARDSON R OCCUPATIONAL MEDICINE PHYSICIAN Ot R60.1 GENERALIZED EDEMA 03/29/2019 ESTUARDO RICHARDSON OCCUPATIONAL MEDICINE PHYSICIAN Ot E11.621 TYPE 2 DIABETES MELLITUS WITH FOOT ULCER 03/29/2019 ESTUARDO RICHARDSON R OCCUPATIONAL MEDICINE PHYSICIAN Ot L97.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 03/29/2019 ESTUARDO RICHARDSON R OCCUPATIONAL MEDICINE PHYSICIAN Ot N18.4 CHRONIC KIDNEY DISEASE, STAGE 4 (SEVERE) 03/29/2019 ESTUARDO RICHARDSON R OCCUPATIONAL MEDICINE PHYSICIAN Ot R60.1 GENERALIZED EDEMA 03/29/2019 Ot D64.9 ANEM IA, UNSPECIFIED 03/29/2019 Ot 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 03/29/2019 Ot N18.4 MACHINE GUNNER ERNESTO KIDNEY DISEASE, STAGE 4 (SEVERE) 03/29/2019 ESTUARDO RICHARDSON R OCCUPATIONAL MEDICINE PHYSICIAN Ot L97.412 NON-PRS CHR ULCER OF RIGHT [...] W/O HRT FAIL, W S 03/29/2019 IRENE BRUCE NP-C Ot K31.8 4 GASTROPARESIS 03/29/2019 IRENE BRUCE HarryLino ANATOMY TEACHER-C Ot N18.4 CHRONIC KIDNEY DISEASE, STAGE 4 [...] 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 03/29/2019 OLYA WILLIS MD Ot E11.621 TYPE [...] CHRONIC KIDNEY DISEASE 03/29/2019 NEW, IRENE G. ANATOMY TEACHER-C Ot N18.4 CHRONIC KIDNEY DISEASE, STAGE 4 (SEVERE) 04/05/2019 SERGIO HANCOCKP Ot E11.42 TYPE 2 DIABETES MELLITUS WITH DIABETIC P 05/09/2019 SERGIO HANCOCK ENGINE LATHE OPERATOR Ot E11.42 TYPE 2 DIABETES MELLITUS WITH DIABETIC P 06/26/2019 SERGIO HANCOCK ENGINE LATHE OPERATOR Ot E11.42 TYPE 2 DIABETES MELLITUS WITH DIABETIC P 06/30/2019 SERGIO HANCOCKP Ot E11.42 TYPE 2 DIABETES MELLITUS WITH DIABETIC P 07/06/2019 SERGIO HANCOCK ENGINE LATHE OPERATOR Ot E11.42 TYPE 2 DIABETES MELLITUS WITH DIABETIC P 08/02/2019 SERGIO HANCOCKP Ot E11.42 TYPE 2 DIABETES MELLITUS WITH DIABETIC P 08/23/2019 SERGIO HANCOCK Ot E11.42 TYPE 2 DIABETES MELLITUS WITH DIABETIC P 04/01/2020 CT DE ANDA MD, Ot 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 04/01/2020 CT DE ANDA MD, Ot E11.42 TYPE 2 DIABETES MELLITUS WITH DIABETIC P 04/01/2020 CT DE ANDA MD, Ot E11.51 TYPE 2 DIABETES W DIABETIC PERIPHERAL AN 04/01/2020 CT DE ANDA MD, Ot E78.00 PURE HYPERCHOLESTEROLEMIA, UNSPECIFIED 04/01/2020 CT DE ANDA MD, Ot F32.9 MAJOR DEPRESSIVE DISORDER, SINGLE EPISOD 04/01/2020 CT DE ANDA MD, Ot F41.9 ANXIETY DISORDER, UNSPECIFIED 04/01/2020 CT DE ANDA MD Ot I12.0 HYP CHR KIDNEY DISEASE W STAGE 5 CHR KID 04/01/2020 CT DE ANDA MD, Ot J18.1 LOBAR PNEUMONIA, UNSPECIFIED ORGANISM 04/01/2020 CT DE ANDA MD, Ot K21.9 GASTRO-ESOPHAGEAL REFLUX DISEASE WITHOUT 04/01/2020 CT DE ANDA MD, Ot M81.0 AGE-RELATED OSTEOPOROSIS W/O CURRENT PAT 04/01/2020 CT DE ANDA MD, Ot N18.6 END STAGE RENAL DISEASE 04/01/2020 CT DE ANDA MD, Ot R41.82 ALTERED MENTAL STATUS, UNSPECIFIED 04/01/2020 CT DE ANDA MD, Ot Z20.828 CONTACT W AND EXPOSURE TO OTH VIRAL COMM 04/01/2020 CT DE ANDA MD, Ot Z79.4 SKILLED NURSING (CURRENT) USE OF INSULIN 04/01/2020 CT DE ANDA MD, Ot Z80.3 FAMILY HISTORY OF MALIGNANT NEOPLASM OF 04/01/2020 CT DE ANDA MD, Ot Z82.49 FAMILY HX OF ISCHEM HEART DIS AND OTH DI 04/01/2020 CT DE ANDA MD, Ot Z85.828 PERSONAL HISTORY OF OTHER MALIGNANT NEOP 04/01/2020 CT DE ANDA MD, Ot Z87.891 PERSONAL HISTORY OF NICOTINE DEPENDENCE 04/01/2020 CT DE ANDA MD, Ot Z88.1 ALLERGY STATUS TO OTHER ANTIBIOTIC AGENT 04/01/2020 CT DE ANDA MD, Ot Z88.2 ALLERGY STATUS TO SULFONAMIDES STATUS 04/01/2020 CT DE ANDA MD, Ot Z88.8 ALLERGY STATUS TO OTH DRUG/MEDS/BIOL SUB 04/01/2020 CT DE ANDA MD, Ot Z99.2 DEPENDENCE ON RENAL DIALYSIS 04/03/2020 CT DE ANDA MD Ot 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 04/03/2020 CT DE ANDA MD, Ot E11.42 TYPE 2 DIABETES MELLITUS WITH DIABETIC P 04/03/2020 CT DE ANDA MD, Ot E11.51 TYPE 2 DIABETES W DIABETIC PERIPHERAL AN 04/03/2020 CT DE ANDA MD Ot E78.00 PURE HYPERCHOLESTEROLEMIA, UNSPECIFIED 04/03/2020 CT DE ANDA MD Ot F32.9 MAJOR DEPRESSIVE DISORDER, SINGLE EPISOD 04/03/2020 CT DE ANDA MD, Ot F41.9 ANXIETY DISORDER, UNSPECIFIED 04/03/2020 CT DE ANDA MD Ot I12.0 HYP CHR KIDNEY DISEASE W STAGE 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 04/03/2020 CT DE ANDA MD, Ot J18.1 LOBAR PNEUMONIA, UNSPECIFIED ORGANISM 04/03/2020 CT DE ANDA MD, Ot K21.9 GASTRO-ESOPHAGEAL REFLUX DISEASE WITHOUT 04/03/2020 CT DE ANDA MD Ot M81.0 AGE-RELATED OSTEOPOROSIS W/O CURRENT PAT 04/03/2020 CT DE ANDA MD Ot N18.6 END STAGE RENAL DISEASE 04/03/2020 CT DE ANDA MD Ot R41.82 ALTERED MENTAL STATUS, UNSPECIFIED 04/03/2020 CT DE ANDA MD, Ot Z20.828 CONTACT W AND EXPOSURE TO OTH VIRAL COMM 04/03/2020 CT DE ANDA MD, Ot Z79.4 SKILLED NURSING (CURRENT) USE OF INSULIN 04/03/2020 CT DE ANDA MD, Ot Z80.3 FAMILY HISTORY OF MALIGNANT NEOPLASM OF 04/03/2020 CT DE ANDA MD, Ot Z82.49 FAMILY HX OF ISCHEM HEART DIS AND OTH DI 04/03/2020 CT DE ANDA MD, Ot Z85.828 PERSONAL HISTORY OF OTHER MALIGNANT NEOP 04/03/2020 CT DE ANDA MD, Ot Z87.891 PERSONAL HISTORY OF NICOTINE DEPENDENCE 04/03/2020 CT DE ANDA MD, Ot Z88.1 ALLERGY STATUS TO OTHER ANTIBIOTIC AGENT 04/03/2020 CT DE ANDA MD, Ot Z88.2 ALLERGY STATUS TO SULFONAMIDES STATUS 04/03/2020 CT DE ANDA MD, Ot Z88.8 ALLERGY STATUS TO OTH DRUG/MEDS/BIOL SUB 04/03/2020 CT DE ANDA MD, Ot Z99.2 DEPENDENCE ON RENAL DIALYSIS 04/22/2020 SERGIO HANCOCK Ot M19.011 PRIMARY OSTEOARTHRITIS, RIGHT SHOULDER 04/22/2020 SERGIO HANCOCKP Ot S46.811A STRAIN OF MUSC/FASC/TEND AT LDR/UP ARM 04/24/2020 SERGIO HANCOCKP Ot M19.011 PRIMARY OSTEOARTHRITIS, RIGHT SHOULDER 04/24/2020 SERGIO HANCOCKP Ot S46.811A STRAIN OF MUSC/FASC/TEND AT LDR/UP ARM 05/08/2020 SERGIO HANCOCKP Ot M19.011 PRIMARY OSTEOARTHRITIS, RIGHT SHOULDER 05/08/2020 SERGIO HANCOCKP Ot S46.811A STRAIN OF MUSC/FASC/TEND AT LDR/UP ARM 05/08/2020 SERGIO HANCOCKP Ot M19.011 PRIMARY OSTEOARTHRITIS, RIGHT SHOULDER 05/08/2020 SERGIO HANCOCKP Ot S46.811A STRAIN OF MUSC/FASC/TEND AT LDR/UP ARM 05/24/2020 SUMI PETE APRN Ot L97.419 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 05/24/2020 SUMI PETE OCCUPATIONAL MEDICINE PHYSICIAN Ot L97.529 NON-PRESSURE CHRONIC ULCER OT PRT LEFT 05/29/2020 Ot 250.82 WAYNE B W OT SPEC MANIFEST, TYPE II OR UNS 05/29/2020 Ot 440.23 ATH EROSCL [place] ARTER EXTREMITIES W ULC 05/29/2020 Ot 707.13 ULC ER OF ANKLE 05/29/2020 Ot 707.14 ULC ER OF HEEL AND MIDFOOT 05/29/2020 Ot 998.83 NON -HEALING SURG WOUND 05/29/2020 Ot V54.19 AFT [facility]CARE HEALING TRAUMATIC FX OTHER BON 05/29/2020 Ot 996.66 INF EC INFLAM REACT DUE TO INTERNL JOIN 05/29/2020 Ot V43.[address] [facility] ER JOINT REPLACEMENT STATUS 05/29/2020 Ot V58.62 ENC OUNT FOR LONG- TERM(CURRENT) USE OF AN 05/29/2020 Ot 996.66 INF EC INFLAM REACT DUE TO INTERNL JOIN 05/29/2020 Ot V43.[address] [facility] ER JOINT REPLACEMENT STATUS 05/29/2020 Ot V58.62 ENC OUNT FOR LONG- TERM(CURRENT) USE OF AN 05/29/2020 Ot V58.62 ENC OUNT FOR LONG- TERM(CURRENT) USE OF AN 05/29/2020 Ot V58.83 ENC OUNTER FOR THERAPEUTIC DRUG MONITORIN 05/29/2020 Ot 998.83 NON -HEALING SURG WOUND 05/29/2020 Ot 996.66 INF EC INFLAM REACT DUE TO INTERNL JOIN 05/29/2020 Ot V43.[address] [facility] ER JOINT REPLACEMENT STATUS 05/29/2020 Ot V58.62 ENC OUNT FOR LONG- TERM(CURRENT) USE OF AN 05/29/2020 LABA LICEA, OLYA Joaquin Ot 276 .7 HYPERPOTASSEMIA 05/29/2020 ALBA LICEA, OLYA Joaquin Ot 276 .7 HYPERPOTASSEMIA 05/29/2020 ALBA LICEA, OLYA Joaquin Ot 276 .7 HYPERPOTASSEMIA 05/29/2020 ALBA LICEA, OLYA Joaquin Ot 250.00 DIAB CHARO WO COMPL, TYPE II OR UNSPEC TY 05/29/2020 ALBA LICEA, OLYA Joaquin Ot 276 .7 HYPERPOTASSEMIA 05/29/2020 ALBA LICEA, OLYA Joaquin Ot 276 .7 HYPERPOTASSEMIA 05/29/2020 ALBA LICEA, OLYA Joaquin Ot 276 .7 HYPERPOTASSEMIA 05/29/2020 ALBA LICEA, OLYA Joaquin Ot 276 .7 HYPERPOTASSEMIA 05/29/2020 ALBA LICEA, OLYA Joaquin Ot 276 .7 HYPERPOTASSEMIA 05/29/2020 ALBA LICEA, OLYA Joaquin Ot 276 .7 HYPERPOTASSEMIA 05/29/2020 ALBA LICEA, OLYA Joaquin Ot 998.59 OTH POSTOPER INFECTION 05/29/2020 ALBA LICEA, OLYA Joaquin Ot 276 .7 HYPERPOTASSEMIA 05/29/2020 ALBA LICEA, OLYA Joaquin Ot 276 .7 HYPERPOTASSEMIA 05/29/2020 ALBA LICEA, OLYA Joaquin Ot 276 .7 HYPERPOTASSEMIA 05/29/2020 ALBA LICEA, OLYA Joaquin Ot 276 .7 HYPERPOTASSEMIA 05/29/2020 ALBA LICEA, OLYA Joaquin Ot 276 .7 HYPERPOTASSEMIA 05/29/2020 JENN DPM, INA Q Ot L98. 8 OTH DISRD OF THE SKIN AND SUBCUTANEOUS T 05/29/2020 KRIS LICEA, LA NENA Garzon Ot M79.6 71 PAIN IN RIGHT FOOT 05/29/2020 Ot E11.621 TY PE 2 DIABETES MELLITUS WITH FOOT ULCER 05/29/2020 Ot L97.412 NO N-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 05/29/2020 NEWIRENE ANATOMY TEACHER-C Ot D64.9 ANEMIA, UNSPECIFIED 05/29/2020 IRENE BRUCE ANATOMY TEACHER-C Ot D72.8 29 ELEVATED WHITE BLOOD CELL COUNT, UNSPECI 05/29/2020 IRENE BRUCE ANATOMY TEACHER-C Ot E11.2 9 TYPE 2 DIABETES MELLITUS W OTH DIABETIC 05/29/2020 IRENE BRUCE ANATOMY TEACHER-C Ot E78.5 HYPERLIPIDEMIA, UNSPECIFIED 05/29/2020 IRENE BRUCE ANATOMY TEACHER-C Ot E87.5 HYPERKALEMIA 05/29/2020 IRENE BRUCE ANATOMY TEACHER-C Ot 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, W S 05/29/2020 IRENE BRUCE ANATOMY TEACHER-C Ot K31.8 4 GASTROPARESIS 05/29/2020 IRENE BRUCE ANATOMY TEACHER-C Ot N18.4 CHRONIC KIDNEY DISEASE, STAGE 4 (SEVERE) 05/29/2020 IRENE BRUCE NP-C Ot R80.9 PROTEINURIA, UNSPECIFIED 05/29/2020 ALBA LICEA, OLYA Joaquin Ot I12 .9 HYPERTENSIVE CHRONIC KIDNEY DISEASE W ST 05/29/2020 ALBA LICEA, OLYA Joaquin Ot N18 .3 CHRONIC KIDNEY DISEASE, STAGE 3 (MODERAT 05/29/2020 KRIS LICEA, [place] NENA Garzon Ot E87.5 HYPERKALEMIA 05/29/2020 KRIS LICEA, [place] NENA Garzon Ot 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, W S 05/29/2020 KRIS LICEA, [place] NENA Garzon Ot N18.4 CHRONIC KIDNEY DISEASE, STAGE 4 (SEVERE) 05/29/2020 ALBA LICEA, OLYA Joaquin Ot D64 .9 ANEMIA, UNSPECIFIED 05/29/2020 ALBA LICEA, OLYA Joaquin Ot N18 .9 CHRONIC KIDNEY DISEASE, UNSPECIFIED 05/29/2020 CUCO LICEA, PRESTON S Ot D64.9 ANEMIA, UNSPECIFIED 05/29/2020 CUCO LICEA, AHMED S Ot D72.829 ELEVATED WHITE BLOOD CELL COUNT, UNSPECI 05/29/2020 CUCO LICEA, MARIBELMED S Ot 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 05/29/2020 CUCO LICEA, AHMED S Ot E11.42 TYPE 2 DIABETES MELLITUS WITH DIABETIC P 05/29/2020 CUCO LICEA, AHMED S Ot E55.9 VITAMIN D DEFICIENCY, UNSPECIFIED 05/29/2020 CUCO LICEA, PRESTON S Ot E78.5 HYPERLIPIDEMIA, UNSPECIFIED 05/29/2020 CUCO LICEA, PRESTON S Ot E87.5 HYPERKALEMIA 05/29/2020 CUCO LICEA, PRESTON S Ot 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, W S 05/29/2020 CUCO LICEA, AHMED S Ot K31.84 GASTROPARESIS 05/29/2020 CUCO LICEA, MARIBELMED S Ot N18.4 CHRONIC KIDNEY DISEASE, STAGE 4 (SEVERE) 05/29/2020 CUCO LICEA, PRESTON S Ot R80.9 PROTEINURIA, UNSPECIFIED 05/29/2020 CUCO LICEA, AHVALARIE S Ot E87.5 HYPERKALEMIA 05/29/2020 CUCO LICEA, PRESTON Granados Ot I12.9 HYPERTENSIVE CHRONIC KIDNEY DISEASE W ST 05/29/2020 PRESTON NORWOOD MD Ot N18.4 CHRONIC KIDNEY DISEASE, STAGE 4 (SEVERE) 05/29/2020 ESTUARDO RICHARDSON OCCUPATIONAL MEDICINE PHYSICIAN Ot E11.621 TYPE 2 DIABETES MELLITUS WITH FOOT ULCER 05/29/2020 ESTUARDO RICHARDSON OCCUPATIONAL MEDICINE PHYSICIAN Ot L97.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 5 HYPERLIPIDEMIA, UNSPECIFIED 05/29/2020 URMILA SUTHERLAND MD Ot I11. 0 HYPERTENSIVE HEART DISEASE WITH HEART FA 05/29/2020 URMILA SUTHERLAND MD Ot I51. 7 CARDIOMEGALY 05/29/2020 URMILA SUTHERLAND MD Ot R07. 9 CHEST PAIN, UNSPECIFIED 05/29/2020 URMILA SUTHERLAND MD Ot I13. 0 HYP HRT CHR KDNY DIS W HRT FAIL AND ST 05/29/2020 URMILA SUTHERLAND MD Ot N18. 9 CHRONIC KIDNEY DISEASE, UNSPECIFIED 05/29/2020 PRESTON NORWOOD MD Ot N18.4 CHRONIC KIDNEY DISEASE, STAGE 4 (SEVERE) 05/29/2020 PRESTON NORWOOD MD Ot 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, W S 05/29/2020 PRESTON NORWOOD MD Ot I50.9 HEART FAILURE, UNSPECIFIED 05/29/2020 PRESTON NORWOOD MD Ot N18.4 CHRONIC KIDNEY DISEASE, STAGE 4 (SEVERE) 05/29/2020 PRESTON NORWOOD MD Ot N18.4 CHRONIC KIDNEY DISEASE, STAGE 4 (SEVERE) 05/29/2020 PRESTON NORWOOD MD Ot 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, W S 05/29/2020 PRESTON NORWOOD MD, Ot N18.4 CHRONIC KIDNEY DISEASE, STAGE 4 (SEVERE) 05/29/2020 PRESTON NORWOOD MD, Ot N18.4 CHRONIC KIDNEY DISEASE, STAGE 4 (SEVERE) 05/29/2020 PRESTON NORWOOD MD Ot R30.0 DYSURIA 05/29/2020 ESTUARDO RICHARDSON APRN Ot E11.621 TYPE 2 DIABETES MELLITUS WITH FOOT ULCER 05/29/2020 ESTUARDO RICHARDSON APRN Ot L97.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 05/29/2020 PRESTON NORWOOD MD Ot D64.9 ANEMIA, UNSPECIFIED 05/29/2020 PRESTON NORWOOD MD Ot D72.829 ELEVATED WHITE BLOOD CELL COUNT, UNSPECI 05/29/2020 PRESTON NORWOOD MD Ot E11.42 TYPE 2 DIABETES MELLITUS WITH DIABETIC P 05/29/2020 PRESTON NORWOOD MD Ot E55.9 VITAMIN D DEFICIENCY, UNSPECIFIED 05/29/2020 PRESTON NORWOOD MD S Ot E78.5 HYPERLIPIDEMIA, UNSPECIFIED 05/29/2020 PRESTON NORWOOD MD Ot E87.5 HYPERKALEMIA 05/29/2020 PRESTON NORWOOD MD S Ot E88.09 OTH DISORDERS OF PLASMA-PROTEIN METABOLI 05/29/2020 PRESTON NORWOOD MD Ot I12.9 HYPERTENSIVE CHRONIC KIDNEY DISEASE W ST 05/29/2020 PRESTON NORWOOD MD S Ot K31.84 GASTROPARESIS 05/29/2020 PRESTON NORWOOD MD S Ot N18.4 CHRONIC KIDNEY DISEASE, STAGE 4 (SEVERE) 05/29/2020 PRESTON NORWOOD MD S Ot N25.81 SECONDARY HYPERPARATHYROIDISM OF RENAL O 05/29/2020 PRESTON NORWOOD MD S Ot R80.9 PROTEINURIA, UNSPECIFIED 05/29/2020 DEBRAJENARON R OCCUPATIONAL MEDICINE PHYSICIAN Ot E11.621 TYPE 2 DIABETES MELLITUS WITH FOOT ULCER 05/29/2020 DEBRAJENARON R OCCUPATIONAL MEDICINE PHYSICIAN Ot I87.312 CHRONIC VENOUS HYPERTENSION W ULCER OF L 05/29/2020 DEBRAJENARON R OCCUPATIONAL MEDICINE PHYSICIAN Ot L97.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 05/29/2020 DEBRAJENARON R OCCUPATIONAL MEDICINE PHYSICIAN Ot N18.4 CHRONIC KIDNEY DISEASE, STAGE 4 (SEVERE) 05/29/2020 ESTUARDO RICHARDSON R OCCUPATIONAL MEDICINE PHYSICIAN Ot R60.1 GENERALIZED EDEMA 05/29/2020 DEBRAJENARON R OCCUPATIONAL MEDICINE PHYSICIAN Ot E11.621 TYPE 2 DIABETES MELLITUS WITH FOOT ULCER 05/29/2020 ESTUARDO RICHARDSON R OCCUPATIONAL MEDICINE PHYSICIAN Ot L97.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 05/29/2020 DEBRA ESTUARDO R OCCUPATIONAL MEDICINE PHYSICIAN Ot N18.4 CHRONIC KIDNEY DISEASE, STAGE 4 (SEVERE) 05/29/2020 DEBRA ESTUARDO R OCCUPATIONAL MEDICINE PHYSICIAN Ot R60.1 GENERALIZED EDEMA 05/29/2020 Ot D64.9 ANEM IA, UNSPECIFIED 05/29/2020 Ot 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 05/29/2020 Ot N18.4 MACHINE GUNNER ERNESTO KIDNEY DISEASE, STAGE 4 (SEVERE) 05/29/2020 DEBRA ESTUARDO R OCCUPATIONAL MEDICINE PHYSICIAN Ot L97.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 05/29/2020 IRENE BRUCE ANATOMY TEACHER-C Ot D64.9 ANEMIA, UNSPECIFIED 05/29/2020 IRENE BRUCE ANATOMY TEACHER-C Ot E11.2 9 TYPE 2 DIABETES MELLITUS W OTH DIABETIC 05/29/2020 IRENE BRUCE ANATOMY TEACHER-C Ot E11.4 0 TYPE 2 DIABETES MELLITUS WITH DIABETIC N 05/29/2020 IRENE BRUCE ANATOMY TEACHER-C Ot E55.9 VITAMIN D DEFICIENCY, UNSPECIFIED 05/29/2020 IRENE BRUCE ANATOMY TEACHER-C Ot E78.5 HYPERLIPIDEMIA, UNSPECIFIED 05/29/2020 IRENE BRUCE ANATOMY TEACHER-C Ot E87.5 HYPERKALEMIA 05/29/2020 IRENE BRUCE ANATOMY TEACHER-C Ot 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, W S 05/29/2020 IRENE BRUCE ANATOMY TEACHER-C Ot K31.8 4 GASTROPARESIS 05/29/2020 TEO IRENE McdonaldLino ANATOMY TEACHER-C Ot N18.4 CHRONIC KIDNEY DISEASE, STAGE 4 (SEVERE) 05/29/2020 SHIRA BRUCEDuran McdonaldLino ANATOMY TEACHER-C Ot N25.8 1 SECONDARY HYPERPARATHYROIDISM OF RENAL O 05/29/2020 SHIRA BRUCEDuran McdonaldLino ANATOMY TEACHER-C Ot R80.8 OTHER PROTEINURIA 05/29/2020 ALBA LICEA, OLYA Joaquin Ot 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 05/29/2020 ALBA LICEA, OLYA Joaquin Ot M79 .9 SOFT TISSUE DISORDER, UNSPECIFIED 05/29/2020 ALBA LICEA, OLYA Joaquin Ot R93 .7 ABNORMAL FINDINGS ON DIAGNOSTIC IMAGING 05/29/2020 OLYA WILLIS MD Ot 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 05/29/2020 ALBA LICEA, OLYA Joaquin Ot E11.621 TYPE 2 DIABETES MELLITUS WITH FOOT ULCER 05/29/2020 OLYA WILLIS MD Ot L97.519 NON-PRS CHRONIC ULCER OTH PRT RIGHT FOOT 05/29/2020 ALBA LICEA, OLYA Joaquin Ot N18 .9 CHRONIC KIDNEY DISEASE, UNSPECIFIED 05/29/2020 ALBA LICEA, OLYA Joaquin Ot R60 .0 LOCALIZED EDEMA 05/29/2020 CUCO LICEA, PRESTON S Ot D64.9 ANEMIA, UNSPECIFIED 05/29/2020 CUCO LICEA, MARIBELMED S Ot N19 UNSPECIFIED KIDNEY FAILURE 05/29/2020 CUCO LICEA, PRESTON S Ot Z00.00 ENCNTR FOR GENERAL ADULT MEDICAL EXAM W/ 05/29/2020 IRENE BRUCE NP-C Ot D63.1 ANEMIA IN CHRONIC KIDNEY DISEASE 05/29/2020 SHIRA BRUCEDuran McdonaldLino ANATOMY TEACHER-C Ot N18.4 CHRONIC KIDNEY DISEASE, STAGE 4 (SEVERE) 05/29/2020 SERGIO HANCOCK Ot M19.011 PRIMARY OSTEOARTHRITIS, RIGHT SHOULDER 05/29/2020 SERGIO HANCOCK Ot S46.811A STRAIN OF MUSC/FASC/TEND AT SHLDR/UP ARM 05/29/2020 SUMI PETE APRN Ot L97.419 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 05/29/2020 SUMI PETE APRN Ot L97.529 NON-PRESSURE CHRONIC ULCER OT PRT LEFT Procedures Code Description Performed By Per formed On 81.81 12/24/2010 18596 [employer] 04/07/2014 79.36 OP R ED-INT FIX TIB/FIBUL 04/12/2014 12958 A1C (IN-HOUSE) 04/24/2014 79.36 OP R ED-INT FIX TIB/FIBUL 05/05/2014 80272 A1C (IN-HOUSE) 08/23/2014 99957 A1C (IN-HOUSE) 01/14/2015 Results Test Result Range [...] 30-100 Whole blood hemoglobin and hematocrit [facility] - 07/10/16 13:45 Venous blood hemoglobin measurement [...] 15- 150 Whole blood hemoglobin and hematocrit [facility] - 08/10/16 13:00 Venous blood hemoglobin measurement [...] 14:53 Bacteria identification in wound by culture [id number] NR FREE TEXT EXTERNAL SENSITIVITY REPORTED AT 0920, 1 10-27-15 NRG QUANTITY OF GROWTH Scant Growth NRG MRSA AGAR Screening test for MRSA is N EGATIVE (Final to follow) [facility] Bacterial susceptibility panel - 6 14:53 Oxacillin [...] culture NOANA NRG Gram stain microscopy - 10/13/16 15:07 GRAM STAIN RESULT NO BACTERIA NRG Bacteria identification in wound by cult ure - 10/13/16 15:07 Bacteria identification in wound by culture [id number] NRG FREE TEXT EXTERNAL SENSITIVITY REPORTED AT 0946, 1 12-16-15 NRG QUANTITY OF GROWTH Scant Growth NRG [...] ABO+Rh group OP NRG Transfusion band number [id number] NRG Blood group antibody screen NEGATIVE NR [...] 13:24 Bacteria identification in wound by culture [id number] NRG QUANTITY OF GROWTH Scant Growth [...] L 30-125 Urine protein/creatinine mass ratio 5.49 NRG Serum iron and total iron binding capaci [...] 2.3-4.7 Whole blood hemoglobin and hematocrit pa jaquelni - 01/26/17 13:21 Venous blood hemoglobin measurement [...] culture NOANA NR Gram stain microscopy - 02/02/17 14:06 GRAM STAIN RESULT NO WBC'S OR BACTERIA OBSERVED NRG Bacteria identification in wound by cult ure - 02/02/17 14:06 Bacteria identification in wound by culture [id number] NR FREE TEXT EXTERNAL (NOT JK) NRG QUANTITY [...] L 30-125 Urine protein/creatinine mass ratio 8.07 BANNER Bacterial urine culture - 02/15/17 11:45 URINE CULTURE RESULTS <10,000/ML BANNER Serum iron and total iron binding capaci [...] % 30-100 Whole blood hemoglobin and hematocrit [facility] 03/09/17 13:03 Venous blood hemoglobin measurement (mass/volume) 10.9 g/dL 11.5-16.0 Blood hematocrit (volume fraction) 34 % 35-52 Whole blood hemoglobin and hematocrit [facility] 03/23/17 11:54 Venous blood hemoglobin measurement (mass/volume) [...] blood hemoglobin and hematocrit pa jaquelin - 04/06/17 12:44 Venous blood hemoglobin measurement [...] % 35-52 Automated blood complete blood count ( mogram) panel - 05/27/17 10:45 Blood leukocytes [...] % 30-100 Whole blood hemoglobin and hematocrit [facility] - 06/15/17 12:18 Venous blood hemoglobin measurement (mass/volume) 10.2 g/dL 11.5-16.0 Blood hematocrit (volume fraction) 31 % 35-52 Bacteria identification in isolate by an aerobe culture - 06/22/17 12:15 Bacteria identification in isolate by anaerobe culture CARLOS NR Gram stain microscopy - 06/22/17 12:15 GRAM STAIN RESULT FEW WBC'S, NO BACTERIA OBSERVED NRG Bacteria identification in wound by cult ure - 06/22/17 12:15 Bacteria identification in wound by culture [id number] NRG FREE TEXT EXTERNAL SENT TO [facility] FOR SENSITIVITY SARAH TING NRG QUANTITY OF [...] Blood hematocrit (volume fraction) 35 % 35-52 [id number] - 08/21/17 10:22 Serum or plasma urea [...] NEGATIVE ng/mL <25 medMATCH Phencyclidine CONSISTENT NRG Complete blood count (CBC) with automate d white blood cell (WBC) differential - 04/01/20 14:55 Blood leukocytes automated count (number/volume) 15.6 10*3/uL 4.3-11.0 Blood erythrocytes automated count (number/volume) 3.84 10*6/uL 4.35-5.85 Venous blood hemoglobin measurement (mass/volume) 11.3 g/dL 11.5-16.0 Blood hematocrit (volume fraction) 36 % 35-52 Automated erythrocyte mean corpuscular volume 94 [ foz_us] 80-99 Automated erythrocyte mean corpuscular h emoglobin (mass per erythrocyte) 29 pg 25-34 Automated erythrocyte mean corpuscular h emoglobin concentration measurement (mass/volume) 31 g/dL 32-36 Automated erythrocyte distribution width ratio 16. 6 % 10.0- 14.5 Automated blood platelet count (count/volume) 269 10*3/uL 130-400 Automated blood platelet mean volume measurement 10.0 [foz_us] 7.4-10.4 Automated blood neutrophils/100 leukocytes 86 % 42-75 Automated blood lymphocytes/100 leukocytes 4 % 12-44 Blood monocytes/100 leukocytes 9 % 0-12 Automated blood eosinophils/100 leukocytes 1 % 0-10 Automated blood basophils/100 leukocytes 0 % 0-10 Blood neutrophils automated count (number/volume) 13.4 10*3 1.8-7.8 Blood lymphocytes automated count (number/volume) 0.7 10*3 1.0-4.0 Blood monocytes automated count (number/volume) 1. 3 10*3 0.0-1.0 Automated eosinophil count 0.2 10*3/uL 0 .0-0.3 Automated blood basophil count (count/volume) 0.0 10*3/uL 0.0-0.1 Blood lactic acid measurement (moles/vol ume) - 04/01/20 14:55 Blood lactic acid measurement (moles/volume) 1.91 mmol/L 0.50-2.00 Manual absolute plasma cell count - 06/13 14:55 Blood monocytes/100 leukocytes 8 % NRG Manual blood segmented neutrophils/100 leukocytes 88 % NRG Manual blood lymphocytes/100 leukocytes 3 % NRG Manual eosinophils/100 leukocytes in nose 1 % NRG Blood erythrocyte morphology finding identification NORMAL NRG Erythrocyte sedimentation rate by corrie gren method - 04/01/20 14:55 Erythrocyte sedimentation rate by westergren method 90 mm 0- 30 Coronavirus SARS-CoV-2 SO 2018 - 0 14:55 Coronavirus Ab [Units/volume] in Serum Negative Negative Bacterial blood culture - 04/01/20 14:55 Bacterial blood culture NG NRG Complete urinalysis with reflex to cultu re - 04/01/20 15:08 Urine color determination YELLOW NRG Urine clarity determination CLEAR NR G Urine pH measurement by test strip 6.0 5-9 Specific gravity of urine by test strip 1.020 1.016-1.022 Urine protein assay by test strip, [...] urobilinogen measurement by automated test strip (mass/volume) 0.2 mg/dL < = 1.0 Urine leukocyte esterase detection by dipstick NEG ATIVE NEGATIVE Automated urine sediment erythrocyte cou nt by microscopy (number/high power field) [HPF] NRG Automated urine sediment leukocyte count by microscopy (number/high power field) [HPF] NRG Bacteria detection in urine sediment by light microsco py TRACE NRG Crystals detection in urine sediment by light microsco py PRESENT NRG Casts detection in urine sediment by light microscopy NONE NRG Mucus detection in urine sediment by light microscopy NEGATIVE NRG Complete urinalysis with reflex to culture NO NRG Amorphous sediment detection in urine sediment by ligh t microscopy MOD MARLENA URATES NRG Comprehensive metabolic panel - 04/01/20 15:29 Serum or plasma sodium measurement (moles/volume) 134 mmol/L 135-145 Serum or plasma potassium measurement (moles/volume) 6.3 mmol/L 3.6-5.0 Serum or plasma chloride measurement (moles/volume) 92 mmol/L 98-107 Carbon dioxide 29 mmol/L 21-32 Serum or plasma anion gap determination (moles/volume) 13 mmol/L 5-14 Serum or plasma urea nitrogen measurement (mass/volume ) 44 mg/dL 7-18 Serum or plasma creatinine measurement (mass/volume) 5.86 mg/dL 0.60-1.30 Serum or plasma urea nitrogen/creatinine mass ratio 8 NRG Serum or plasma creatinine measurement w ith calculation of estimated glomerular filtration rate 7 NRG Serum or plasma glucose measurement (mass/volume) 136 mg/dL 70-105 Serum or plasma calcium measurement (mass/volume) 10.0 mg/dL 8.5-10.1 Serum or plasma total bilirubin measurement (mass/volu me) 0.5 mg/dL 0.1-1.0 Serum or plasma alkaline phosphatase tasneem surement (enzymatic activity/volume) 84 U/L 40-136 Serum or plasma aspartate aminotransfera se measurement (enzymatic activity/volume) 17 U/L 5-34 Serum or plasma alanine aminotransferase measurement (enzymatic activity/volume) 10 U/L 0-55 Serum or plasma protein measurement (mass/volume) 7.8 g/dL 6.4-8.2 Serum or plasma albumin measurement (mass/volume) 3.7 g/dL 3.2-4.5 CALCIUM CORRECTED 10.2 mg/dL 8.5-10.1 Serum ragweed IgE antibody assay - 04/01 15:29 Serum ragweed IgE antibody assay 189 U/L 125-220 PROCALCITONIN (PCT) - 04/01/20 15:29 PROCALCITONIN (PCT) 0.46 ng/mL <0.10 Serum or plasma troponin i.cardiac measu rement (mass/volume) - 04/01/20 15:29 Serum or plasma troponin i.cardiac measurement (mass/v olume) 0.028 ng/mL <0.028 Serum or plasma C reactive protein measu rement (mass/volume) - 04/01/20 15:29 Serum or plasma C reactive protein measurement (mass/v olume) 6.94 mg/dL 0.00-0.50 PT panel in platelet poor plasma by coag ulation assay - 04/01/20 15:29 Prothrombin time (PT) in platelet poor plasma by coagu lation assay 14.1 s 12.2-14.7 INR in platelet poor plasma or blood by coagulation as say 1.1 0.8-1.4 Activated partial thromboplastin time (a PTT) in platelet poor plasma bycoagulation assay - 04/01/20 15:29 Activated partial thromboplastin time (a PTT) in platelet poor plasma bycoagulation assay 33 s 24-35 Fibrin D-dimer FEU measurement in platel et poor plasma (mass/volume) - 04/01/20 15:29 Fibrin D-dimer FEU measurement in platelet poor plasma (mass/volume) 3.62 ug/mL 0.00-0.49 Bacterial blood culture - 04/01/20 15:29 QUANTITY OF GROWTH . [facility] Bacterial blood culture SEE COMMEN [facility] SUSCEPTIBILITY SUSCEPTIBILITY REPORTED 04/04/20 13: 05 NR MRSA SCREEN FAXED TO [facility] MRSA CONFIRMATION [phone] 04/04/20 13:[address] [facility] - 04/01/20 15:2 9 Gentamicin susceptibility test by minimum inhibitory c oncentration 4 NRG Levofloxacin susceptibility test by minimum inhibitory concentration <= NRG Tobramycin susceptibility test by minimum inhibitory c oncentration <= NRG Piperacillin/tazobactam susceptibility t est by minimum inhibitory concentration = NRG Ciprofloxacin susceptibility test by minimum inhibitor y concentration <= NRG Meropenem susceptibility test by minimum inhibitory co ncentration <= NRG Aztreonam susceptibility test by minimum inhibitory co ncentration 4 NRG Cefepime susceptibility test by minimum inhibitory con centration 2 NRG Imipenem susceptibility test by minimum inhibitory con centration 2 NRG Ceftazidime susceptibility test by minimum inhibitory concentration <= NRG Arterial blood gas measurement - 0 14:40 Blood pCO2 48 mm[Hg] 35-45 Blood pO2 106 mm[Hg] 79-93 Arterial blood bicarbonate measurement (moles/volume) 34 mmol/L 23-27 Arterial blood base excess by calculation 9.7 mmol /L -2.5-2.5 Arterial blood oxygen saturation measurement 98 % 94-100 * Inhaled oxygen flow rate 2L NRG Arterial blood pH measurement with patient temperature correction 7.47 7.37-7.43 Arterial blood carbon dioxide, total measurement (mole s/volume) 35.3 mmol/L 21.0-31.0 Body site R BRACH NRG Assessment of wrist artery patency prior to arterial p uncture YES-POS NRG Setting of ventilation mode NO NR G Measurement of body temperature 37.1 NRG Complete blood count (CBC) with automate d white blood cell (WBC) differential - 05/29/20 14:40 Blood leukocytes automated count (number/volume) 19.7 10*3/uL 4.3-11.0 Blood erythrocytes automated count (number/volume) 3.90 10*6/uL 4.35-5.85 Venous blood hemoglobin measurement (mass/volume) 11.2 g/dL 11.5-16.0 Blood hematocrit (volume fraction) 36 % 35-52 Automated erythrocyte mean corpuscular volume 93 [ foz_us] 80-99 Automated erythrocyte mean corpuscular h emoglobin (mass per erythrocyte) 29 pg 25-34 Automated erythrocyte mean corpuscular h emoglobin concentration measurement (mass/volume) 31 g/dL 32-36 Automated erythrocyte distribution width ratio 16. 3 % 10.0- 14.5 Automated blood platelet count (count/volume) 261 10*3/uL 130-400 Automated blood platelet mean volume measurement 9.6 [foz_us] 7.4-10.4 Automated blood neutrophils/100 leukocytes 91 % 42-75 Automated blood lymphocytes/100 leukocytes 4 % 12-44 Blood monocytes/100 leukocytes 5 % 0-12 Automated blood eosinophils/100 leukocytes 0 % 0-10 Automated blood basophils/100 leukocytes 0 % 0-10 Blood neutrophils automated count (number/volume) 17.9 10*3 1.8-7.8 Blood lymphocytes automated count (number/volume) 0.7 10*3 1.0-4.0 Blood monocytes automated count (number/volume) 1. 0 10*3 0.0-1.0 Automated eosinophil count 0.0 10*3/uL 0 .0-0.3 Automated blood basophil count (count/volume) 0.0 10*3/uL 0.0-0.1 Blood lactic acid measurement (moles/vol ume) - 05/29/20 14:40 Blood lactic acid measurement (moles/volume) 1.42 mmol/L 0.50-2.00 Comprehensive metabolic panel - 05/29/20 14:40 Serum or plasma sodium measurement (moles/volume) 135 mmol/L 135-145 Serum or plasma potassium measurement (moles/volume) 4.7 mmol/L 3.6-5.0 Serum or plasma chloride measurement (moles/volume) 92 mmol/L 98-107 Carbon dioxide 29 mmol/L 21-32 Serum or plasma anion gap determination (moles/volume) 14 mmol/L 5-14 Serum or plasma urea nitrogen measurement (mass/volume ) 33 mg/dL 7-18 Serum or plasma creatinine measurement (mass/volume) 4.26 mg/dL 0.60-1.30 Serum or plasma urea nitrogen/creatinine mass ratio 8 NRG Serum or plasma creatinine measurement w ith calculation of estimated glomerular filtration rate 10 NRG Serum or plasma glucose measurement (mass/volume) 170 mg/dL 70-105 Serum or plasma calcium measurement (mass/volume) 9.5 mg/dL 8.5-10.1 Serum or plasma total bilirubin measurement (mass/volu me) 0.4 mg/dL 0.1-1.0 Serum or plasma alkaline phosphatase tasneem surement (enzymatic activity/volume) 79 U/L 40-136 Serum or plasma aspartate aminotransfera se measurement (enzymatic activity/volume) 22 U/L 5-34 Serum or plasma alanine aminotransferase measurement (enzymatic activity/volume) 12 U/L 0-55 Serum or plasma protein measurement (mass/volume) 8.1 g/dL 6.4-8.2 Serum or plasma albumin measurement (mass/volume) 3.4 g/dL 3.2-4.5 CALCIUM CORRECTED 10.0 mg/dL 8.5-10.1 PT panel in platelet poor plasma by coag ulation assay - 05/29/20 14:40 Prothrombin time (PT) in platelet poor plasma by coagu lation assay 15.0 s 12.2-14.7 INR in platelet poor plasma or blood by coagulation as say 1.1 0.8-1.4 Activated partial thromboplastin time (a PTT) in platelet poor plasma bycoagulation assay - 05/29/20 14:40 Activated partial thromboplastin time (a PTT) in platelet poor plasma bycoagulation assay 41 s 24-35 Fibrin D-dimer FEU measurement in platel et poor plasma (mass/volume) - 05/29/20 14:40 Fibrin D-dimer FEU measurement in platelet poor plasma (mass/volume) 3.69 ug/mL 0.00-0.49 Manual absolute plasma cell count - 03/13 14:40 Blood monocytes/100 leukocytes 5 % NRG Manual blood segmented neutrophils/100 leukocytes 94 % NRG Manual blood lymphocytes/100 leukocytes 1 % NRG Blood hypochromia detection by light microscopy MO DERATE NRG Blood rouleaux detection by light microscopy SLIGH T NRG Blood stomatocytes detection by light microscopy S LIGHT NRG PROCALCITONIN (PCT) - 05/29/20 14:40 PROCALCITONIN (PCT) 0.98 ng/mL <0.10 Serum or plasma C reactive protein measu rement (mass/volume) - 05/29/20 14:40 Serum or plasma C reactive protein measurement (mass/v olume) 17.46 mg/dL 0.00-0.50 Encounters ACCT No. Visit Date/Time Discharge Status Pt. Type Provider Facility Loc./Unit Complaint [id number] 07/16/2017 07:05:00 Document Registration [id number] 05/23/2020 13:40:00 020 23:59:59 [facility] Outpatient SUMI PETE APRN Via [facility] RAD LEFT AND RIGHT FOOT OSTEOMYLITIS ULCERS [id number] 04/19/2020 09:52:00 23:59:59 CLS Outpatient SERGIO HANCOCK Via [facility] RAD OSTEOARTHRITIS OF RIGH T SHOULDER [id number] 04/01/2020 14:28:00 020 18:41:00 DIS Emergency ADILSON LICEA, CT Hooper Via [facility] ER STROKE [id number] 08/23/2019 11:18:00 019 13:06:00 DIS Outpatient SERGIO HANCOCKP Via [facility] REHAB RESTRENGTHENING;GAIT T RAINING [id number] 06/23/2019 09:37:00 019 00:01:00 DIS Outpatient SERGIO HANCOCK Via [facility] REHAB RESTRENGTHENING;GAIT T RAINING [id number] 07/12/2018 08:59:00 018 12:54:00 DIS Emergency HADLEY LICEA, NATTY Weinstein Via [facility] ER STROKE SYMPTOMS [id number] 11/09/2017 00:16:00 23:59:59 CLS Preadmit IRENE BRUCE [facility] CHRONIC KIDNEY DISEASE STAGE 4 [id number] 09/07/2017 11:53:00 018 00:01:00 DIS Outpatient IRENE BRUCE Via [facility] CHRONIC KIDNEY DISEASE STAGE 4 [id number] 09/28/2017 15:14:00 23:59:59 CLS Preadmit CUCO LICEA, PRESTON Granados [facility] R10.9 [id number] 08/24/2017 13:00:00 017 23:59:59 CLS Outpatient PRSETON NORWOOD MD Via [facility] RENAL FAILURE, ANEMIA [id number] 08/21/2017 10:02:00 23:59:59 CLS Outpatient OLYA WILLIS MD Via [facility] RAD L97.519 NON-HEALING ULC ER OF RIGHT FOOT, KIDNEY D [id number] 08/04/2017 12:02:00 23:59:59 CLS Outpatient OLYA WILLIS MD [facility] L98.492 [id number] 07/13/2017 11:56:00 017 00:01:00 DIS Outpatient IRENE BRUCE ANATOMY TEACHER-C Via [facility] CHRONIC KIDNEY DISEASE STAGE 4 [id number] 07/19/2017 12:00:00 017 23:59:59 CLS Outpatient IRENE BRUCE ANATOMY TEACHER-C Via [facility] N18.4 E87.5 [id number] 07/06/2017 10:44:00 017 23:59:59 CLS Outpatient ESTUARDO RICHARDSON APRN Via [facility] WOUNDCARE [id number] 07/05/2017 07:56:00 017 23:59:59 CLS Preadmit CUOC LICEA, PRESTON Granados [facility] CKD,DM,ANEMIA [id number] 06/29/2017 11:47:00 017 00:01:00 DIS Outpatient IRENE BRUCE ANATOMY TEACHER-C [facility] CHRONIC KIDNEY DISEASE STAGE 4 [id number] 06/22/2017 10:54:00 017 23:59:59 CLS Outpatient ESTUARDO RICHARDSON APRN Via [facility] WOUNDCARE [id number] 06/15/2017 11:08:00 017 23:59:59 CLS Outpatient ESTUARDO RICHARDSON APRN Via [facility] WOUNDCARE [id number] 05/27/2017 12:00:00 017 23:59:59 CLS Outpatient CUCO LICEA, PRESTON Granados [facility] CKD STAGE IV, H YERKALEMIA [id number] 05/25/2017 10:48:00 017 23:59:59 CLS Outpatient ESTUARDO RICHARDSON APRN Via [facility] WOUNDCARE [id number] 05/25/2017 12:23:00 017 16:00:00 DIS Outpatient ESTUARDO RICHARDSON OCCUPATIONAL MEDICINE PHYSICIAN Via [facility] WOUNDCARE [id number] 05/04/2017 10:50:00 017 00:01:00 DIS Outpatient ESTUARDO RICHARDSON APRN [facility] [id number] 04/26/2017 13:45:00 017 23:59:59 CLS Outpatient PRESTON NORWOOD MD Via [facility] DYSURIA, CKD, H YPERKALEMIA, DM [id number] 03/23/2017 11:44:00 017 00:01:00 DIS Outpatient IRENE BRUCE NP-James [facility] CHRONIC KIDNEY DISEASE STAGE 4 [id number] 03/25/2017 12:30:00 017 23:59:59 CLS Outpatient PRESTON NORWOOD MD [facility] RENAL FAILURE, CKD [id number] 02/15/2017 13:29:00 017 23:59:59 CLS Outpatient PRESTON NORWOOD MD Via [facility] CKD STG IV, HTN [id number] 02/02/2017 13:26:00 017 00:01:00 DIS Outpatient ESTUARDO RICHARDSON APRN Via [facility] [id number] 01/28/2017 17:39:00 017 23:59:59 CLS Outpatient PRESTON NORWOOD MD [facility] [id number] 01/04/2017 15:47:00 017 23:59:59 CLS Outpatient PRESTON NORWOOD MD [facility] RENAL INSUFICIE NCY, HTN, CKD W/ HEART FAILURE [id number] 12/10/2016 12:08:00 017 23:59:59 CLS Outpatient PRESTON NORWOOD MD Via [facility] CKD STAGE IV (Roberta TRACY) [id number] 12/02/2016 13:59:00 017 23:59:59 CLS PreadRAHEL Osorio MD Via [facility] REHAB LYMPHEDEMA IN LOWER EXT REMITIES [id number] 11/17/2016 12:18:00 017 23:59:59 CLS Outpatient URMILA SUTHERLAND MD Via [facility] LAB RENAL INSUFFICIENCY, HT N, CKD W/ HEART FAILURE [id number] 11/10/2016 13:01:00 017 00:01:00 DIS Outpatient ESTUARDO RICHARDSON APRN Via [facility] WOUNDCARE [id number] 11/11/2016 09:48:00 017 12:39:00 DIS Outpatient URMILA SUTHERLAND MD Via [facility] CATH PERIPHERAL VASCULAR DIS EASE, RENAL INSUFFICIENCY [id number] 11/09/2016 07:19:00 23:59:59 CLS Outpatient URMILA SUTHERLAND MD Via [facility] CARD CHEST PAIN SYNDROME,HTN ,LVH,HLP [id number] 10/14/2016 12:32:00 016 23:59:59 CLS Outpatient ESTUARDO RICHARDSON APRN Via [facility] RAD E11.621,L97.412 [id number] 10/09/2016 00:09:00 23:59:59 CLS Preadmit IRENE BRUCE NP-C [facility] ANEMIA,CKD [id number] 08/10/2016 12:36:00 00:01:00 DIS Outpatient IRENE BRUCE NP-James [facility] ANEMIA,CKD [id number] 09/28/2016 16:25:00 23:59:59 CLS Outpatient CUCO LICEA, PRESTON S [facility] CHRONIC KIDNEY DISEASE STAGE N [id number] 09/03/2016 14:24:00 23:59:59 CLS Outpatient ESTUARDO RICHARDSON APRN Via [facility] RAD E11.621,L97.412 [id number] 08/17/2016 12:23:00 23:59:59 CLS Outpatient PRESTON NORWOOD MD Via [facility] CKD STG IV, HYP ERKALEMIA, HTN AND CKD [id number] 06/08/2016 11:26:00 23:59:59 CLS Outpatient PRESTON NORWOOD MD Via [facility] CKD STAGE IV, H TN, DM [id number] 06/01/2016 10:32:00 23:59:59 CLS Outpatient OLYA WILLIS MD [facility] ANEMIA, CKD [id number] 04/23/2016 13:32:00 16:00:00 DIS Outpatient ESTUARDO RICHARDSON APRN Via [facility] WOUNDCARE [id number] 04/24/2016 04:18:00 09:18:00 DIS Emergency IRENE KIRKLAND DO a [facility] ER FALL [id number] 02/20/2016 14:25:00 00:01:00 DIS Outpatient ESTUARDO RICHARDSON APRN Via [facility] WOUNDCARE [id number] 02/19/2016 10:00:00 23:59:59 CLS Outpatient LA NENA PONCE MD [facility] [id number] 01/27/2016 14:37:00 23:59:59 CLS Outpatient OLYA WILLIS MD [facility] HTN, CKD STAGE III [id number] 01/07/2016 12:49:00 23:59:59 CLS Outpatient IRENE BRUCE [facility] KDC STAGE 4 N18.4 [id number] 11/18/2015 14:45:00 23:59:59 CLS Outpatient LA NENA PONCE MD [facility] WOUND INFECTION [id number] 09/06/2015 06:36:00 23:59:59 CLS Outpatient JENN DPM, INA Q Via [facility] CARD WOUND RT HEEL [id number] 04/24/2015 14:47:00 015 23:59:59 CLS Preadmit OLYA WILLIS MD Via [facility] REHAB [id number] 04/11/2015 11:37:00 015 23:59:59 CLS Outpatient OLYA WILLIS MD [facility] HYPERKALEMIA [id number] 04/04/2015 14:30:00 015 23:59:59 CLS Outpatient OLYA WILLIS MD [facility] HYPERKALEMIA [id number] 03/27/2015 15:40:00 015 23:59:59 CLS Outpatient OLYA WILLIS MD [facility] HYPERKALEMIA [id number] 03/20/2015 13:00:00 23:59:59 CLS Outpatient OLYA WILLIS MD [facility] HYPERKALEMIA [id number] 03/11/2015 12:06:00 015 23:59:59 CLS Outpatient OLYA WILLIS MD [facility] HYPERKALEMIA [id number] 03/06/2015 00:10:00 23:59:59 CLS Preadmit OLYA WILLIS MD Via [facility] SDC NON HEALING RIGHT FOOT [id number] 03/04/2015 13:10:00 23:59:59 CLS Outpatient OLYA WILLIS MD [facility] HYPERKALEMIA [id number] 01/11/2015 11:31:00 015 12:30:00 DIS Outpatient RAHEL MUNOZ MD Via [facility] WOUNDCARE [id number] 02/25/2015 11:07:00 23:59:59 CLS Outpatient OLYA WILLIS MD [facility] HYPERKALEMIA [id number] 02/18/2015 10:58:00 04/27/2 015 23:59:59 CLS Outpatient OLYA WILLIS MD [facility] HYPERKALEMIA [id number] 02/15/2015 10:00:00 015 23:59:59 CLS Outpatient OLYA WILLIS MD [facility] HYPERKALEMIA [id number] 02/07/2015 10:52:00 23:59:59 CLS Outpatient OLYA WILLIS MD [facility] HYPERPOTASSEMIA [id number] 01/31/2015 13:54:00 23:59:59 CLS Outpatient OLYA WILLIS MD [facility] HYPERKALEMIA [id number] 01/24/2015 14:00:00 23:59:59 CLS Outpatient OLYA WILLIS MD [facility] DIABETES, MED CHANGE [id number] 01/19/2015 11:00:00 23:59:59 CLS Outpatient OLYA WILLIS MD [facility] HYPERKALEMIA [id number] 01/18/2015 14:50:00 23:59:59 CLS Outpatient OLYA WILLIS MD [facility] ELEVATED POTASSIUM [id number] 01/17/2015 14:25:00 23:59:59 CLS Outpatient OLYA WILLIS MD [facility] ELEVATED POTASSIUM [id number] 12/08/2014 09:50:00 23:59:59 CLS Outpatient OLYA WILLIS MD Via [facility] SDC NON HEALING RIGHT FOOT [id number] 11/19/2014 08:16:00 08:30:00 DIS Outpatient RAHEL MUNOZ MD Via [facility] WOUNDCARE [id number] 09/02/2014 04:50:00 014 12:30:00 DIS Inpatient OLYA WILLIS MD Via [facility] 4TH RECTAL IMPACTION;CHRONI C CONSTIPATION [id number] 08/14/2014 03:01:00 014 14:05:00 DIS Inpatient OLYA WILLIS MD Via [facility] 4TH FECAL IMPACTION [id number] 05/09/2014 10:10:00 014 07:00:00 DIS Inpatient KAYLEE OCASIO MD Via [facility] IRF INFECTION RIGHT ANKLE [id number] 05/14/2014 07:17:00 014 10:13:00 DIS Outpatient IFEOMA DONALDSON MD Via [facility] SDC INFECTION RIGHT ANKLE [id number] 05/02/2014 16:47:00 10:10:00 DIS Inpatient IFEOMA DONALDSON MD [facility] SURGICAL INFECTION RIGHT ANKLE [id number] 04/29/2014 15:57:00 17:33:00 DIS Emergency ANTHONY MARTIN APRN Via [facility] ER POST SURGERY BLEEDING [id number] 04/26/2014 16:02:00 23:59:59 CLS Outpatient [id number] 04/15/2014 16:22:00 12:50:00 DIS Inpatient KAYLEE OCASIO MD Via [facility] IRF FX R ANKLE [id number] 04/11/2014 21:10:00 16:27:00 DIS Inpatient OLYA WILLIS MD [facility] SURGICAL FX R ANKLE [id number] 02/21/2014 07:53:00 23:59:59 CLS Outpatient MARGARITA CORDERO DO Via [facility] RAD LEFT BREAST LARISSA CIFICATIONS [id number] 02/12/2014 08:41:00 23:59:59 CLS Outpatient SHEA MAYFIELD [facility] RAD SCREENING [id number] 11/12/2013 00:13:00 02:10:00 DIS Emergency JD WANG MD [facility] ER DIZZINESS [id number] 09/19/2013 10:26:00 013 10:08:00 DIS Outpatient MASHA LICEA, NAJMA Lee [facility] 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 [id number] 05/11/2013 13:40:00 013 15:43:00 DIS Outpatient MARGARITA CORDERO DO Via [facility] REHAB CVA WITH R CARYL PLEGIA [id number] 04/21/2013 21:00:00 013 06:30:00 DIS Outpatient MARGARITA CORDERO DO Via [facility] SLEEP SLEEP APNEA,SNO RING [id number] 02/20/2013 10:13:00 013 15:45:00 DIS Outpatient VERONICA LICEA, RALPH Mcgee [facility] SDC RECTAL BLEEDING/UPPER GASTRIC PAIN [id number] 05/29/2020 14:28:[address] Emergency WILL LICEA, [place] [facility] ER FEVER;RESP DISTRESS [id number] 11/26/2017 12:40:00 Document Registration [id number] 07/05/2017 09:09:00 Document Registration [id number] 11/28/2015 16:08:00 Document Registration [id number] 06/13/2015 13:10:00 Document Registration [id number] 06/13/2015 13:09:00 Document Registration [id number] 01/07/2015 14:45:00 Document Registration [id number] 12/31/2014 16:16:00 Document Registration [id number] 12/24/2014 11:06:00 Document Registration [id number] 12/17/2014 08:48:00 Document Registration [id number] 12/15/2014 10:15:00 Document Registration [id number] 11/19/2014 09:58:00 Document Registration [id number] 02/16/2013 12:53:00 Document Registration [id number] 02/15/2013 08:15:00 Document Registration [id number] 01/03/2013 13:46:00 Document Registration [id number] 10/04/2012 11:50:00 Document Registration [id number] 09/20/2012 11:50:00 Document Registration [id number] 08/14/2012 00:28:00 Document Registration [id number] 12/24/2011 11:01:00 Document Registration [id number] 10/15/2011 11:00:00 Document Registration [id number] 09/10/2011 08:27:00 Document Registration [id number] 08/21/2011 05:39:00 Document Registration [id number] 08/17/2011 09:09:00 Document Registration [id number] 08/05/2011 10:55:00 Document Registration [id number] 07/06/2011 10:56:00 Document Registration [id number] 04/08/2011 11:02:00 Document Registration [id number] 03/09/2011 11:52:00 Document Registration [id number] 03/09/2011 09:54:00 Document Registration [id number] 01/17/2011 13:51:00 Document Registration [id number] 12/26/2010 14:15:00 Document Registration [id number] 12/23/2010 20:58:00 Document Registration [id number] 11/17/2010 08:35:00 Document Registration [id number] 11/03/2010 08:00:00 Document Registration [id number] 05/15/2010 17:13:00 Document Registration [id number] 05/27/2020 12:20:00 ACT Outpatient OLYA WILLIS MD [facility] [place] [id number] 03/17/2019 11:00:00 Document Registration [id number] 07/15/2017 09:20:00 Document Registration [id number] 01/14/2015 14:06:00 01/14/2015 23:59: 59 CLS Outpatient OLYA WILLIS MD [id number] 10/23/2014 09:29:00 10/23/2014 23:59: 59 CLS Outpatient OLYA WILLIS MD [id number] 09/03/2014 07:29:00 09/03/2014 23:59: 59 CLS Outpatient LIANA MCADAMS DO [id number] 08/23/2014 15:13:00 08/23/2014 23:59: 59 CLS Outpatient OLYA WILLIS MD [id number] 08/23/2014 15:13:00 08/23/2014 23:59: 59 CLS Outpatient OLYA WILLIS MD [id number] 05/29/2014 07:46:00 05/29/2014 23:59: 59 CLS Outpatient OLYA WILLIS MD [id number] 04/24/2014 15:39:00 04/24/2014 23:59: 59 CLS Outpatient OLYA WILLIS MD [id number] 04/07/2014 10:14:00 04/07/2014 23:59: 59 CLS Outpatient LIANA MCADAMS DO 02/09/16 04/07/2018 14:42:43 04/07/2018 23:5 9:59 CLS Outpatient Margarita Cordero
--- NOTE | 2020-05-29 16:49 | Diagnostic Imaging Report ---
INDICATION: Hypoxemia. EXAMINATION: Portable chest at 04:18 p.m. FINDINGS: There is right perihilar atelectasis. There is a small right pleural effusion. There is some right basilar infiltrate or atelectasis. IMPRESSION: Right basilar consolidation with a small effusion. This appears similar to prior study dated 04/01/2020. Dictated by: Dictated on workstation # [id number]
== END 2020-05-29 22:40 | disposition short-term general hospital (02) ==
LOC: EDUNIT# 14:26 → ER 14:28
DX: J18.9 Pneumonia, unspecified organism (principal); J96.01 Acute respiratory failure with hypoxia; E11.22 Type 2 diabetes mellitus with diabetic chronic kidney disease; I12.0 Hypertensive chronic kidney disease with stage 5 chronic kidney disease or end stage renal disease; N18.6 End stage renal disease; E78.00 Pure hypercholesterolemia, unspecified; E11.40 Type 2 diabetes mellitus with diabetic neuropathy, unspecified; K21.9 Gastro-esophageal reflux disease without esophagitis; G89.29 Other chronic pain; M54.9 Dorsalgia, unspecified; F41.9 Anxiety disorder, unspecified; F32.9 Major depressive disorder, single episode, unspecified; Z99.2 Dependence on renal dialysis; Z88.1 Allergy status to other antibiotic agents; Z88.8 Allergy status to other drugs, medicaments and biological substances; Z79.891 Long term (current) use of opiate analgesic; Z20.828 Contact with and (suspected) exposure to other viral communicable diseases; Z86.73 Personal history of transient ischemic attack (TIA), and cerebral infarction without residual deficits; Z85.820 Personal history of malignant melanoma of skin; Z88.2 Allergy status to sulfonamides; Z79.4 Long term (current) use of insulin; Z87.891 Personal history of nicotine dependence; Z82.49 Family history of ischemic heart disease and other diseases of the circulatory system; Z80.3 Family history of malignant neoplasm of breast
CPT/HCPCS: 71045; 80053; 82805; 83605; 84145; 85007; 85027; 85379; 85610; 85730; 86141; 87040; 87077; 87186; 96361; 96365; 96375; 99291; U0002; 36415; 87635

== ENCOUNTER → 2020-07-26 | Outpatient (CLI) | payer MEDICARE ==
--- NOTE | 2020-07-26 14:28 | Diagnostic Imaging Report ---
PROCEDURE: MR imaging cervical spine without contrast. TECHNIQUE: Multiplanar, multisequence MR imaging of the cervical spine was performed without contrast. INDICATION: Numbness in the upper extremities. COMPARISON: None available. FINDINGS: There are multiple abnormal T2 hyperintense intramedullary lesions involving C7, T1, and T3 vertebral bodies, there is also an abnormal T2 hyperintense lesion within the left 3rd rib. These features are suspicious for multifocal metastases. No fracture. No spondylolisthesis. No increased signal within the cervical cord, although motion artifact does limit assessment. C2-C3: No spinal canal or neuroforaminal narrowing. C3-C4: Central disc protrusion, paracentral endplate spurs completely efface the ventral thecal sac resulting in moderate spinal stenosis. Severe right and moderate left neuroforaminal narrowing due to uncovertebral joint hypertrophy. C4-C5: Large central disc protrusion with ligamentum flavum hypertrophy causes severe spinal stenosis with compression of the cervical cord. Moderate bilateral neuroforaminal narrowing due to uncovertebral joint hypertrophy. C5-C6: Central and left paracentral disc osteophyte complex results in mild mass effect on the ventral aspect of the cord. Severe left and moderate right neuroforaminal narrowing. C6-C7: Small central disc protrusion causes mild spinal stenosis. Mild bilateral neuroforaminal narrowing. C7-T1: No spinal canal or neural foraminal narrowing. IMPRESSION: 1. Multiple abnormal cervical and upper thoracic vertebrae, as well as the left 3rd rib. These are highly suspicious for multifocal metastases. Recommend postcontrast MR imaging of the cervical spine. At that time, before contrast administration, true T1-weighted images should also be obtained (TR value around 400). 2. Severe spinal stenosis at C4-C5 with disc bulge and ligamentum flavum resulting in compression of the cervical cord. Dictated by: Dictated on workstation # [id number]
== END ==
LOC: RAD 12:01
PROVIDERS: ATTEND Specialist
DX: M48.02 Spinal stenosis, cervical region (principal); M50.221 Other cervical disc displacement at C4-C5 level; M47.812 Spondylosis without myelopathy or radiculopathy, cervical region; G95.29 Other cord compression; Z20.828 Contact with and (suspected) exposure to other viral communicable diseases
CPT/HCPCS: 72141

== ENCOUNTER → 2020-08-26 | Outpatient (CLI) | payer MEDICARE, OTHER ==
[~2020-08-26] MED LIST changes: +HOLD METFORMIN - RECEIVED CONTRAST 20 ML VIAL IV SCH; +IOHEXOL 350 MG/ML 100 ML (OMNIPAQUE 350) VIAL IV ONE; +NS 100 ML (IVPB) BAG IV ONE
[2020-08-26 12:38] LABS: ALBUMIN 3.6 GM/DL (3.2-4.5); BILIRUBIN,TOTAL 0.4 MG/DL (0.1-1.0); CALCIUM 9.7 MG/DL (8.5-10.1); CREATININE SERUM 4.8 MG/DL (0.60-1.30); POTASSIUM 5.1 MMOL/L (3.6-5.0); TOTAL PROTEIN 7.5 GM/DL (6.4-8.2)
--- NOTE | 2020-08-26 14:27 | Diagnostic Imaging Report ---
PROCEDURE: CT chest, abdomen, and pelvis with and without contrast. TECHNIQUE: Precontrast images were obtained of the chest, abdomen, and pelvis. Multiple contiguous axial images were obtained through the chest, abdomen, and pelvis after administration of intravenous contrast. Auto Exposure Controls were utilized during the CT exam to meet ALARA standards for radiation dose reduction. INDICATION: Melanoma. No prior studies are available for comparison. CT CHEST: No definite axillary, hilar or mediastinal lymphadenopathy is identified. No pericardial fluid is seen. There may be trace pericardial fluid or pericardial thickening in the right base posteriorly. There is an area of consolidation versus mass in the posterior right lower lobe measuring approximately 7.2 x 3.5 cm. The remainder of the lung fernando are clear. IMPRESSION: 1. Consolidation versus mass in posterior right lower lobe. There also appears to be some trace pleural fluid. Short interval follow-up CT chest is recommended after course of therapy to confirm stability or resolution. Follow-up after course of antibiotics in approximately 6 weeks could be performed. CT ABDOMEN AND PELVIS: No discrete liver mass is identified. Gallbladder is surgically absent. There is no biliary ductal dilatation. Pancreas is atrophic. The spleen is unremarkable. There is some nodularity to the left adrenal gland measuring 1.5 cm. Overall density is low and may represent an adenoma. Kidneys do show cortical thinning and atrophy. Aorta is heavily calcified but non-aneurysmal. No definite central, retroperitoneal or mesenteric lymphadenopathy is seen. Bowel loops appear to be nonobstructed. Partially filled urinary bladder is unremarkable. Uterus appears to be surgically absent or atrophic. No definite pelvic lymphadenopathy is identified. IMPRESSION: 1. No acute feature in the abdomen or pelvis is identified. No abdominal or pelvic lymphadenopathy or mass is detected. Dictated by: Dictated on workstation # [id number]
== END ==
LOC: RAD 12:45
PROVIDERS: ATTEND Internal Medicine
DX: C43.9 Malignant melanoma of skin, unspecified (principal); C80.1 Malignant (primary) neoplasm, unspecified; Z90.49 Acquired absence of other specified parts of digestive tract
CPT/HCPCS: 36415; 71270; 74178; 80053

== ENCOUNTER → 2020-09-05 | Outpatient (CLI) | payer MEDICARE ==
[~2020-09-05] MED LIST changes: -HOLD METFORMIN - RECEIVED CONTRAST 20 ML VIAL IV SCH; -IOHEXOL 350 MG/ML 100 ML (OMNIPAQUE 350) VIAL IV ONE; -NS 100 ML (IVPB) BAG IV ONE
[2020-09-05 11:37] LABS: BASOPHILS % (AUTO) 0 % (0-10); EOSINOPHILS # (AUTO) 0.1 10^3/uL (0.0-0.3); EOSINOPHILS % (AUTO) 2 % (0-10); HEMATOCRIT 40 % (35-52); HEMOGLOBIN 13.1 g/dL (11.5-16.0); LYMPHOCYTES # (AUTO) 1.5 10^3/uL (1.0-4.0); LYMPHOCYTES % (AUTO) 21 % (12-44); MEAN CORPUSCULAR HEMOGLOBIN 31 pg (25-34); MEAN CORPUSCULAR HGB CONC 33 g/dL (32-36); MEAN CORPUSCULAR VOLUME 96 fL (80-99); MEAN PLATELET VOLUME 10.4 fL (9.0-12.2); MONOCYTES # (AUTO) 0.6 10^3/uL (0.0-1.0); MONOCYTES % (AUTO) 9 % (0-12); NEUTROPHILS # (AUTO) 4.6 10^3/uL (1.8-7.8); NEUTROPHILS % (AUTO) 67 % (42-75); PLATELET COUNT 138 10^3/uL (130-400); WHITE BLOOD COUNT 6.8 10^3/uL (4.3-11.0)
[2020-09-05 11:45] LABS: SMEAR SCAN COMMENT YES
== END ==
LOC: LAB 11:14
PROVIDERS: ATTEND Internal Medicine Critical Care Medicine
DX: J18.9 Pneumonia, unspecified organism (principal)
CPT/HCPCS: 36415; 85025

== ENCOUNTER → 2020-10-21 | Outpatient (CLI) | payer MEDICARE ==
--- NOTE | 2020-10-21 14:17 | Diagnostic Imaging Report ---
EXAMINATION: CT Chest without contrast. TECHNIQUE: Multiple contiguous axial images were obtained through the chest without the use of intravenous contrast. All CT scans use one or more of the following dose optimizing techniques: automated exposure control, MA and/or KvP adjustment based on a patient size and exam type, or iterative reconstruction. HISTORY: PNEUMONIA COMPARISON: CT chest 08/26/2020 FINDINGS: Thyroid: Stable mildly heterogeneous appearance of the thyroid gland. Mediastinum: Heart size is normal without significant pericardial effusion. Calcifications of the aorta and coronary vessels. Thoracic aorta is normal in caliber. No suspicious lymphadenopathy. Lungs and airways: Stable right lower lobe consolidation with air bronchograms. Stable trace loculated right pleural effusion. No pneumothorax. Stable bilateral pulmonary nodules measuring up to 0.4 cm (series 3 image 39). The airways are normal. Upper abdomen: Stable indeterminate 1.3 cm left adrenal nodule. Gallbladder is surgically absent. Musculoskeletal: Degenerative changes of the spine without suspicious osseous lesion or compression fracture. Surgical changes from left shoulder arthroplasty. IMPRESSION: 1. Stable right lower lobe masslike consolidation compared to 08/26/2020. Study could represent focal pneumonia, round atelectasis, or underlying pulmonary lesion. Consider better characterization with PET/CT. 2. Stable bilateral pulmonary nodules measuring up to 0.4 cm. 3. Loculated appearance of trace right pleural fluid collection which can be seen with empyema. 4. Stable indeterminate 1.3 cm left adrenal nodule. This could be better characterized on dedicated CT of the abdomen adrenal mass protocol. Dictated by: Dictated on workstation # [id number]
== END ==
LOC: RAD 12:45
PROVIDERS: ATTEND Nurse Practitioner Family
DX: J18.9 Pneumonia, unspecified organism (principal); R91.8 Other nonspecific abnormal finding of lung field; E27.8 Other specified disorders of adrenal gland
CPT/HCPCS: 71250

== ENCOUNTER → 2020-11-05 | Outpatient (CLI) | payer MEDICARE, OTHER ==
--- NOTE | 2020-11-05 17:10 | Diagnostic Imaging Report ---
PET/CT INDICATION: Lung mass TECHNIQUE: PET/CT imaging was obtained from the base of the skull through the pelvis after the administration of 12.08 mCi of F-18 fluorodeoxyglucose injected into the right forearm. Limited CT imaging was utilized for localization and attenuation correction purposes. The low energy CT utilized for attenuation correction is not considered to be of high enough spatial resolution to allow in and of itself a separate anatomical analysis. Height: 5 feet, 2 inches. Weight: 142 pounds Blood glucose: 134 COMPARISON: There are no prior PET/CT examinations available for comparison. The CT chest exam performed on 10/21/2020 noted a stable masslike consolidation in the right lower lobe. It was not certain whether this was related to pneumonia, atelectasis or an underlying neoplastic mass. On the CT images of this exam, that finding is again evident and does not appear to have changed significantly. This abnormal parenchymal density is not hypermetabolic with a maximum SUV of 1.7. I do suspect that this is most likely due to pneumonia and/or atelectasis and not to neoplasm. Even so, a short-term (4-6 week) follow-up CT chest exam would be recommended for continued evaluation. The small pulmonary nodules seen on the prior exam are not hypermetabolic either. There is no other hypermetabolic activity identified to suggest the presence of malignancy. There is a vague area of slightly increased activity in the anterior musculature of the upper thigh on the right. This has a maximum SUV of 2.1 and may be related to a recent injury or to muscular activity. Physiologic activity is seen in the brain, kidneys, bowel and bladder. The CT images failed to show any sign of an acute abnormality. IMPRESSION: 1. There is no hypermetabolic activity associated with the masslike consolidation in the right lung base. Considerations and recommendations as above. 2. There is no other hypermetabolic activity to indicate the presence of malignancy. 3. There is no sign of an acute abnormality. Dictated by: Dictated on workstation # [id number]
== END ==
LOC: RAD 12:45
PROVIDERS: ATTEND Nurse Practitioner Family
DX: R91.8 Other nonspecific abnormal finding of lung field (principal)
CPT/HCPCS: 78815; A9552

== ENCOUNTER → 2021-02-03 | Outpatient (CLI) | payer MEDICARE, OTHER ==
--- NOTE | 2021-02-03 12:49 | Diagnostic Imaging Report ---
EXAMINATION: CT Chest without contrast. TECHNIQUE: Multiple contiguous axial images were obtained through the chest without the use of intravenous contrast. All CT scans use one or more of the following dose optimizing techniques: automated exposure control, MA and/or KvP adjustment based on a patient size and exam type, or iterative reconstruction. HISTORY: Pneumonia followup, history of melanoma COMPARISON: PET/CT 11/05/2020, CT chest 10/21/2020 FINDINGS: Thyroid: The thyroid is normal. Mediastinum: Heart size is normal without significant pericardial effusion. Calcifications of the aorta and coronary vessels. Thoracic aorta is normal in caliber. There are a few prominent mediastinal lymph nodes which are unchanged from 10/13/2020, not pathologically enlarged. Lungs and airways: Stable size and appearance of the right lower lobe masslike consolidation compared to prior exams dating back to 08/26/2020. No pneumothorax. Stable appearance of a loculated right pleural effusion with pleural thickening. Stable subcentimeter bilateral pulmonary nodules which measure up to 0.4 cm. No new suspicious pulmonary nodule. There are air bronchograms within the right lower lobe masslike consolidation. The airways are otherwise patent. Upper abdomen: The gallbladder is surgically absent. Vascular calcifications without aneurysm. Stable indeterminate left adrenal nodule. Musculoskeletal: Degenerative changes of the spine without suspicious osseous lesion or compression fracture. Surgical changes of the left humerus. IMPRESSION: 1. Stable appearance of the loculated right pleural fluid collection with adjacent area of masslike consolidation. This area of masslike consolidation did not demonstrate any increased metabolic uptake on prior PET/CT. Given the adjacent pleural effusion, this finding may represent round atelectasis. Recommend continued followup in one year to document stability. Alternatively, a CT guided biopsy could be performed for more definitive characterization. 2. Stable indeterminate 1.3 cm left adrenal nodule. This can be further evaluated with dedicated CT of the abdomen adrenal mass protocol. 3. Stable bilateral pulmonary nodules measuring up to 0.4 cm. Attention on followup imaging. Dictated by: Dictated on workstation # [id number]
== END ==
LOC: RAD 12:15
PROVIDERS: ATTEND Nurse Practitioner Family
DX: R91.8 Other nonspecific abnormal finding of lung field (principal); J90 Pleural effusion, not elsewhere classified; E27.8 Other specified disorders of adrenal gland; Z90.49 Acquired absence of other specified parts of digestive tract
CPT/HCPCS: 71250

== ENCOUNTER → 2021-03-06 | Outpatient (CLI) | payer MEDICARE ==
[~2021-03-06] MED LIST changes: +RT-ALBUTEROL SULF 2.5 MG/3 ML PRE-MIX VIAL INH ONE
== END ==
LOC: RT 12:07
PROVIDERS: ATTEND Nurse Practitioner Family
DX: R06.00 Dyspnea, unspecified (principal)
CPT/HCPCS: 94060; 94726; 94729

== ENCOUNTER → 2021-08-11 | Outpatient (CLI) | payer MEDICARE ==
[~2021-08-11] MED LIST changes: +DOXY-311 PO; -DOXY100C42 PO; -RT-ALBUTEROL SULF 2.5 MG/3 ML PRE-MIX VIAL INH ONE
--- NOTE | 2021-08-11 16:45 | Diagnostic Imaging Report ---
PROCEDURE: CT chest without contrast. TECHNIQUE: Multiple contiguous axial images were obtained through the chest without the use of intravenous contrast. Auto Exposure Controls were utilized during the CT exam to meet ALARA standards for radiation dose reduction. INDICATION: Right lower lobe mass-like consolidation, followup. COMPARISON: 02/03/2021. FINDINGS: There is a wedge-shaped area of opacification in the right lower lobe posteriorly which is similar to the prior CT. There are air bronchograms within this. A focal mass is not evident but an underlying mass at this site cannot yet be excluded. The right upper lobe is clear. The left lung is clear. There is no effusion on the left. There is a minimal effusion on the right. There is no pneumothorax. There is no mediastinal mass or adenopathy. There is no acute bony abnormality. IMPRESSION: The wedge-shaped area of atelectasis and infiltrate in the right lower lobe is similar to the 02/03/2021 study. Dictated by: Dictated on workstation # [id number]
== END ==
LOC: RAD 15:21
PROVIDERS: ATTEND Nurse Practitioner Family
DX: J98.11 Atelectasis (principal); R91.8 Other nonspecific abnormal finding of lung field
CPT/HCPCS: 71250

== ENCOUNTER → 2021-08-18 | Outpatient (CLI) | payer MEDICARE ==
--- NOTE | 2021-08-18 16:54 | Diagnostic Imaging Report ---
INDICATION: Soft tissue ulcer. Diabetes. Concern for osteomyelitis. COMPARISON: None. FINDINGS: Three radiographic views of the right foot were obtained. There is localized severe soft tissue swelling involving the ventral surface of the foot overlying the metatarsals. This is similar compared to the prior exam. Evaluation of the underlying osseous structures demonstrates no gross osteolytic process. Note is made that the talus and calcaneus are essentially absent. There is gross deformity of the distal tibia and fibula as well. Findings may be post surgical in nature although a Charcot joint is also suspected. An intramedullary brian is noted within the included portions of the distal tibia. There is also diffuse calcified arteriosclerosis. IMPRESSION: Soft tissue swelling overlying the metatarsals. There is no appreciable underlying osteolytic process but osteomyelitis cannot be excluded based on radiographs alone. Correlation with MRI is recommended to exclude osteomyelitis. Dictated by: Dictated on workstation # [id number]
== END ==
LOC: RAD 15:47
PROVIDERS: ATTEND Family Medicine
DX: E11.621 Type 2 diabetes mellitus with foot ulcer (principal)
CPT/HCPCS: 73630

== ENCOUNTER → 2021-08-18 | Outpatient (CLI) | payer MEDICARE | LOC: WOUNDCARE 14:13 | PROVIDERS: ATTEND Family Medicine | DX: E11.621 Type 2 diabetes mellitus with foot ulcer (principal); L97.416 Non-pressure chronic ulcer of right heel and midfoot with bone involvement without evidence of necrosis; E11.40 Type 2 diabetes mellitus with diabetic neuropathy, unspecified; L97.422 Non-pressure chronic ulcer of left heel and midfoot with fat layer exposed; I70.234 Atherosclerosis of native arteries of right leg with ulceration of heel and midfoot; I70.244 Atherosclerosis of native arteries of left leg with ulceration of heel and midfoot; I89.0 Lymphedema, not elsewhere classified; N18.6 End stage renal disease | CPT/HCPCS: A6260; G0463; 99213 ==

== ENCOUNTER → 2021-08-28 | Outpatient (CLI) | payer MEDICARE | LOC: WOUNDCARE 14:19 | PROVIDERS: ATTEND Family Medicine | DX: E11.52 Type 2 diabetes mellitus with diabetic peripheral angiopathy with gangrene (principal); E11.621 Type 2 diabetes mellitus with foot ulcer; E11.40 Type 2 diabetes mellitus with diabetic neuropathy, unspecified; E11.22 Type 2 diabetes mellitus with diabetic chronic kidney disease; I70.263 Atherosclerosis of native arteries of extremities with gangrene, bilateral legs; I89.0 Lymphedema, not elsewhere classified; N18.6 End stage renal disease; L97.422 Non-pressure chronic ulcer of left heel and midfoot with fat layer exposed; L97.416 Non-pressure chronic ulcer of right heel and midfoot with bone involvement without evidence of necrosis | CPT/HCPCS: 99213 ==

== ENCOUNTER → 2021-09-04 | Outpatient (CLI) | payer MEDICARE | LOC: LAB 15:25 | PROVIDERS: ATTEND Family Medicine | DX: E11.621 Type 2 diabetes mellitus with foot ulcer (principal); L97.416 Non-pressure chronic ulcer of right heel and midfoot with bone involvement without evidence of necrosis; E11.40 Type 2 diabetes mellitus with diabetic neuropathy, unspecified; I70.234 Atherosclerosis of native arteries of right leg with ulceration of heel and midfoot; I70.244 Atherosclerosis of native arteries of left leg with ulceration of heel and midfoot; I89.0 Lymphedema, not elsewhere classified; E11.22 Type 2 diabetes mellitus with diabetic chronic kidney disease; N18.6 End stage renal disease | CPT/HCPCS: 36415; 83036 ==

== ENCOUNTER → 2021-09-04 | Outpatient (CLI) | payer MEDICARE, OTHER | LOC: WOUNDCARE 14:34 | PROVIDERS: ATTEND Family Medicine | DX: E11.621 Type 2 diabetes mellitus with foot ulcer (principal); L97.416 Non-pressure chronic ulcer of right heel and midfoot with bone involvement without evidence of necrosis; E11.40 Type 2 diabetes mellitus with diabetic neuropathy, unspecified; L97.422 Non-pressure chronic ulcer of left heel and midfoot with fat layer exposed; I70.234 Atherosclerosis of native arteries of right leg with ulceration of heel and midfoot; I70.244 Atherosclerosis of native arteries of left leg with ulceration of heel and midfoot; I89.0 Lymphedema, not elsewhere classified; E11.22 Type 2 diabetes mellitus with diabetic chronic kidney disease; N18.6 End stage renal disease; L72.3 Sebaceous cyst; E11.52 Type 2 diabetes mellitus with diabetic peripheral angiopathy with gangrene | CPT/HCPCS: A6266; G0463; 99214 ==

== ENCOUNTER → 2021-09-11 | Outpatient (CLI) | payer MEDICARE | LOC: WOUNDCARE 15:29 | PROVIDERS: ATTEND Family Medicine | DX: E11.621 Type 2 diabetes mellitus with foot ulcer (principal); E11.52 Type 2 diabetes mellitus with diabetic peripheral angiopathy with gangrene; L97.416 Non-pressure chronic ulcer of right heel and midfoot with bone involvement without evidence of necrosis; E11.40 Type 2 diabetes mellitus with diabetic neuropathy, unspecified; I70.234 Atherosclerosis of native arteries of right leg with ulceration of heel and midfoot; I70.244 Atherosclerosis of native arteries of left leg with ulceration of heel and midfoot; I89.0 Lymphedema, not elsewhere classified; E11.22 Type 2 diabetes mellitus with diabetic chronic kidney disease; N18.6 End stage renal disease; L72.3 Sebaceous cyst | CPT/HCPCS: 99213 ==

== ENCOUNTER → 2021-09-24 | Outpatient (CLI) | payer MEDICARE | LOC: RAD 09:03 | PROVIDERS: ATTEND Orthopaedic Surgery | DX: R22.31 Localized swelling, mass and lump, right upper limb (principal) ==

== ENCOUNTER → 2021-09-24 | Outpatient (CLI) | payer MEDICARE ==
--- NOTE | 2021-09-24 11:03 | Diagnostic Imaging Report ---
EXAMINATION: Magnetic resonance imaging of the right ankle without contrast. DATE: September 24, 2021. COMPARISON: Right foot radiographs August 18, 2021. HISTORY: 76-year-old male, right heel ulcer. Evaluation for osteomyelitis. TECHNIQUE: Magnetic Resonance Imaging sequences were performed of the ankle without contrast. [< >] FINDINGS: There is a skin defect in the region of the heel inferior to the calcaneus consistent with provided history of soft tissue ulcer. There is extensive adjacent abnormal signal in the soft tissues. Sensitivity for detection of abscess is reduced given lack of intravenous contrast. The areas of abnormal soft tissue signal directly contact the calcaneus. There is abnormal marrow edema in the calcaneus with subtle T1 signal loss consistent with osteomyelitis of the calcaneus. There is complete ankylosis across the posterior subtalar joint. There is complete tibiotalar fusion. There is hardware at the level of the distal tibia. There is susceptibility artifact in the region of the tibiotalar and posterior subtalar joints. There is absence of the distal aspect of the calcaneus with abnormal signal within the soft tissues interposed between the distal portion of the remaining calcaneus and proximal cuboid. There is also abnormal attenuation in the region of the talonavicular articulation. There is absence of portions of the distal talus. The Achilles tendon is intact. The posterior flexor tendons appear intact. The peroneal tendons and anterior extensor tendons appear intact. There is no evidence of tenosynovitis. There is fairly generalized subcutaneous edema. There is no obvious focal fluid collection. Impression: 1. Skin defect in the region of the heel inferior to the calcaneus with abnormal soft tissue signal directly contacting the calcaneus. No clearly identified focal fluid collection or abscess on limited noncontrast assessment. 2. 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 4. 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 5. No evidence of tenosynovitis. Dictated by: Dictated on workstation # [id number]
== END ==
LOC: RAD 09:30
PROVIDERS: ATTEND Family Medicine
DX: E11.621 Type 2 diabetes mellitus with foot ulcer (principal); L97.416 Non-pressure chronic ulcer of right heel and midfoot with bone involvement without evidence of necrosis; E11.40 Type 2 diabetes mellitus with diabetic neuropathy, unspecified; L97.422 Non-pressure chronic ulcer of left heel and midfoot with fat layer exposed; I70.234 Atherosclerosis of native arteries of right leg with ulceration of heel and midfoot; I70.244 Atherosclerosis of native arteries of left leg with ulceration of heel and midfoot; I89.0 Lymphedema, not elsewhere classified; E11.22 Type 2 diabetes mellitus with diabetic chronic kidney disease; N18.6 End stage renal disease; M86.171 Other acute osteomyelitis, right ankle and foot; M24.674 Ankylosis, right foot

== ENCOUNTER → 2021-09-25 | Outpatient (CLI) | payer MEDICARE | LOC: WOUNDCARE 15:34 | PROVIDERS: ATTEND Family Medicine | DX: E11.621 Type 2 diabetes mellitus with foot ulcer (principal); L97.416 Non-pressure chronic ulcer of right heel and midfoot with bone involvement without evidence of necrosis; E11.40 Type 2 diabetes mellitus with diabetic neuropathy, unspecified; I70.234 Atherosclerosis of native arteries of right leg with ulceration of heel and midfoot; I70.244 Atherosclerosis of native arteries of left leg with ulceration of heel and midfoot; I89.0 Lymphedema, not elsewhere classified; E11.22 Type 2 diabetes mellitus with diabetic chronic kidney disease; N18.6 End stage renal disease; M86.071 Acute hematogenous osteomyelitis, right ankle and foot; E11.52 Type 2 diabetes mellitus with diabetic peripheral angiopathy with gangrene | CPT/HCPCS: 99212 ==

== ENCOUNTER → 2021-10-02 | Outpatient (CLI) | payer MEDICARE | LOC: WOUNDCARE 12:36 | PROVIDERS: ATTEND Family Medicine | DX: E11.621 Type 2 diabetes mellitus with foot ulcer (principal); L97.416 Non-pressure chronic ulcer of right heel and midfoot with bone involvement without evidence of necrosis; E11.40 Type 2 diabetes mellitus with diabetic neuropathy, unspecified; I70.234 Atherosclerosis of native arteries of right leg with ulceration of heel and midfoot; I89.0 Lymphedema, not elsewhere classified; E11.22 Type 2 diabetes mellitus with diabetic chronic kidney disease; N18.6 End stage renal disease; M86.071 Acute hematogenous osteomyelitis, right ankle and foot; E11.52 Type 2 diabetes mellitus with diabetic peripheral angiopathy with gangrene | CPT/HCPCS: 99212 ==

== ENCOUNTER 2021-10-03 12:05 | Outpatient (RCR) | payer MEDICARE ==
[2021-10-01 12:20] VITALS: BP 0/0
[2021-10-01] MEDS: DAPTOmycin 500 MG/NS 50 ML IVPB IV SCH ×4 (13:42→13:50)
[2021-10-03 12:05] VITALS: BP 127/76
[2021-10-03] MEDS ORDERED: DAPTOmycin 500 MG/NS 50 ML IVPB IV ONE ×2 (12:45)
== END 2021-10-03 13:50 | disposition home or self-care (01) ==
LOC: SDC 12:05
PROVIDERS: ATTEND Family Medicine
DX: M86.071 Acute hematogenous osteomyelitis, right ankle and foot (principal)
CPT/HCPCS: 36569; 76937; 96365; C1751

== ENCOUNTER → 2021-10-09 | Outpatient (CLI) | payer MEDICARE | LOC: WOUNDCARE 12:21 | PROVIDERS: ATTEND Family Medicine | DX: E11.621 Type 2 diabetes mellitus with foot ulcer (principal); E11.52 Type 2 diabetes mellitus with diabetic peripheral angiopathy with gangrene; E11.40 Type 2 diabetes mellitus with diabetic neuropathy, unspecified; E11.22 Type 2 diabetes mellitus with diabetic chronic kidney disease; M86.071 Acute hematogenous osteomyelitis, right ankle and foot; L97.426 Non-pressure chronic ulcer of left heel and midfoot with bone involvement without evidence of necrosis; I70.234 Atherosclerosis of native arteries of right leg with ulceration of heel and midfoot; I89.0 Lymphedema, not elsewhere classified; N18.6 End stage renal disease | CPT/HCPCS: 99212 ==

== ENCOUNTER → 2021-10-16 | Outpatient (CLI) | payer MEDICARE | LOC: WOUNDCARE 12:24 | PROVIDERS: ATTEND Family Medicine | DX: E11.621 Type 2 diabetes mellitus with foot ulcer (principal); L97.416 Non-pressure chronic ulcer of right heel and midfoot with bone involvement without evidence of necrosis; E11.40 Type 2 diabetes mellitus with diabetic neuropathy, unspecified; I70.234 Atherosclerosis of native arteries of right leg with ulceration of heel and midfoot; I89.0 Lymphedema, not elsewhere classified; E11.22 Type 2 diabetes mellitus with diabetic chronic kidney disease; N18.6 End stage renal disease; M86.071 Acute hematogenous osteomyelitis, right ankle and foot; E11.52 Type 2 diabetes mellitus with diabetic peripheral angiopathy with gangrene | CPT/HCPCS: 99212 ==

== ENCOUNTER → 2021-10-23 | Outpatient (CLI) | payer MEDICARE | LOC: WOUNDCARE 12:21 | PROVIDERS: ATTEND Family Medicine | DX: E11.621 Type 2 diabetes mellitus with foot ulcer (principal); L97.416 Non-pressure chronic ulcer of right heel and midfoot with bone involvement without evidence of necrosis; E11.40 Type 2 diabetes mellitus with diabetic neuropathy, unspecified; I70.234 Atherosclerosis of native arteries of right leg with ulceration of heel and midfoot; I89.0 Lymphedema, not elsewhere classified; E11.22 Type 2 diabetes mellitus with diabetic chronic kidney disease; N18.6 End stage renal disease; M86.071 Acute hematogenous osteomyelitis, right ankle and foot; E11.52 Type 2 diabetes mellitus with diabetic peripheral angiopathy with gangrene | CPT/HCPCS: 99212 ==

== ENCOUNTER → 2021-10-30 | Outpatient (CLI) | payer MEDICARE | LOC: WOUNDCARE 12:26 | PROVIDERS: ATTEND Family Medicine | DX: E11.621 Type 2 diabetes mellitus with foot ulcer (principal); L97.416 Non-pressure chronic ulcer of right heel and midfoot with bone involvement without evidence of necrosis; E11.40 Type 2 diabetes mellitus with diabetic neuropathy, unspecified; I70.234 Atherosclerosis of native arteries of right leg with ulceration of heel and midfoot; I89.0 Lymphedema, not elsewhere classified; E11.22 Type 2 diabetes mellitus with diabetic chronic kidney disease; N18.6 End stage renal disease; M86.071 Acute hematogenous osteomyelitis, right ankle and foot; E11.52 Type 2 diabetes mellitus with diabetic peripheral angiopathy with gangrene | CPT/HCPCS: 11042; A6197; G0463 ==

== ENCOUNTER → 2021-11-06 | Outpatient (CLI) | payer MEDICARE | LOC: WOUNDCARE 12:22 | PROVIDERS: ATTEND Family Medicine | DX: E11.621 Type 2 diabetes mellitus with foot ulcer (principal); E11.52 Type 2 diabetes mellitus with diabetic peripheral angiopathy with gangrene; E11.40 Type 2 diabetes mellitus with diabetic neuropathy, unspecified; I70.234 Atherosclerosis of native arteries of right leg with ulceration of heel and midfoot; L97.416 Non-pressure chronic ulcer of right heel and midfoot with bone involvement without evidence of necrosis; I89.0 Lymphedema, not elsewhere classified; E11.22 Type 2 diabetes mellitus with diabetic chronic kidney disease; N18.6 End stage renal disease; M86.071 Acute hematogenous osteomyelitis, right ankle and foot | CPT/HCPCS: 11042; G0463 ==

== ENCOUNTER → 2021-11-13 | Outpatient (CLI) | payer MEDICARE | LOC: WOUNDCARE 12:19 | PROVIDERS: ATTEND Family Medicine | DX: E11.621 Type 2 diabetes mellitus with foot ulcer (principal); L97.416 Non-pressure chronic ulcer of right heel and midfoot with bone involvement without evidence of necrosis; E11.40 Type 2 diabetes mellitus with diabetic neuropathy, unspecified; I70.234 Atherosclerosis of native arteries of right leg with ulceration of heel and midfoot; I89.0 Lymphedema, not elsewhere classified; E11.22 Type 2 diabetes mellitus with diabetic chronic kidney disease; N18.6 End stage renal disease; M86.071 Acute hematogenous osteomyelitis, right ankle and foot; M21.761 Unequal limb length (acquired), right tibia; E11.52 Type 2 diabetes mellitus with diabetic peripheral angiopathy with gangrene | CPT/HCPCS: 11042; G0463 ==

== ENCOUNTER → 2021-11-20 | Outpatient (CLI) | payer MEDICARE | LOC: WOUNDCARE 12:34 | PROVIDERS: ATTEND Family Medicine | DX: E11.621 Type 2 diabetes mellitus with foot ulcer (principal); L97.416 Non-pressure chronic ulcer of right heel and midfoot with bone involvement without evidence of necrosis; E11.40 Type 2 diabetes mellitus with diabetic neuropathy, unspecified; I70.234 Atherosclerosis of native arteries of right leg with ulceration of heel and midfoot; I89.0 Lymphedema, not elsewhere classified; E11.22 Type 2 diabetes mellitus with diabetic chronic kidney disease; N18.6 End stage renal disease; M86.071 Acute hematogenous osteomyelitis, right ankle and foot; M21.761 Unequal limb length (acquired), right tibia; E11.52 Type 2 diabetes mellitus with diabetic peripheral angiopathy with gangrene | CPT/HCPCS: 11042; G0463 ==

== ENCOUNTER → 2021-11-24 | Outpatient (CLI) | payer MEDICARE | LOC: WOUNDCARE 11:24 | PROVIDERS: ATTEND Family Medicine | DX: E11.621 Type 2 diabetes mellitus with foot ulcer (principal); L97.416 Non-pressure chronic ulcer of right heel and midfoot with bone involvement without evidence of necrosis; E11.40 Type 2 diabetes mellitus with diabetic neuropathy, unspecified; I70.234 Atherosclerosis of native arteries of right leg with ulceration of heel and midfoot; I89.0 Lymphedema, not elsewhere classified; E11.22 Type 2 diabetes mellitus with diabetic chronic kidney disease; N18.6 End stage renal disease; M86.071 Acute hematogenous osteomyelitis, right ankle and foot; M21.761 Unequal limb length (acquired), right tibia; E11.52 Type 2 diabetes mellitus with diabetic peripheral angiopathy with gangrene | CPT/HCPCS: 11042; G0463 ==

== ENCOUNTER → 2021-11-24 | Outpatient (RCR) | payer MEDICARE | END | disposition home or self-care (01) | LOC: WOUNDCARE 11-19 08:05 | PROVIDERS: ATTEND Family Medicine | DX: E11.621 Type 2 diabetes mellitus with foot ulcer (principal); L97.416 Non-pressure chronic ulcer of right heel and midfoot with bone involvement without evidence of necrosis; E11.40 Type 2 diabetes mellitus with diabetic neuropathy, unspecified; I70.234 Atherosclerosis of native arteries of right leg with ulceration of heel and midfoot; I89.0 Lymphedema, not elsewhere classified; N18.6 End stage renal disease; M86.071 Acute hematogenous osteomyelitis, right ankle and foot | CPT/HCPCS: 82947; G0277; 99183 ==

== ENCOUNTER → 2021-12-01 | Outpatient (CLI) | payer MEDICARE | LOC: WOUNDCARE 08:14 | PROVIDERS: ATTEND Family Medicine | DX: E11.621 Type 2 diabetes mellitus with foot ulcer (principal); L97.416 Non-pressure chronic ulcer of right heel and midfoot with bone involvement without evidence of necrosis; E11.40 Type 2 diabetes mellitus with diabetic neuropathy, unspecified; I70.234 Atherosclerosis of native arteries of right leg with ulceration of heel and midfoot; I89.0 Lymphedema, not elsewhere classified; E11.22 Type 2 diabetes mellitus with diabetic chronic kidney disease; N18.6 End stage renal disease; M86.071 Acute hematogenous osteomyelitis, right ankle and foot; M21.761 Unequal limb length (acquired), right tibia; H61.23 Impacted cerumen, bilateral; E11.52 Type 2 diabetes mellitus with diabetic peripheral angiopathy with gangrene | CPT/HCPCS: 11042 ==

== ENCOUNTER → 2021-12-08 | Outpatient (CLI) | payer MEDICARE ==
[~2021-12-08] MED LIST changes: +CEPH500T PO
== END ==
LOC: WOUNDCARE 08:20
PROVIDERS: ATTEND Family Medicine
DX: E11.621 Type 2 diabetes mellitus with foot ulcer (principal); L97.416 Non-pressure chronic ulcer of right heel and midfoot with bone involvement without evidence of necrosis; E11.52 Type 2 diabetes mellitus with diabetic peripheral angiopathy with gangrene; E11.40 Type 2 diabetes mellitus with diabetic neuropathy, unspecified; I70.234 Atherosclerosis of native arteries of right leg with ulceration of heel and midfoot; I89.0 Lymphedema, not elsewhere classified; E11.22 Type 2 diabetes mellitus with diabetic chronic kidney disease; N18.6 End stage renal disease; M86.071 Acute hematogenous osteomyelitis, right ankle and foot; M21.761 Unequal limb length (acquired), right tibia
CPT/HCPCS: 11042; G0463

== ENCOUNTER 2021-12-09 11:19 | Emergency (ER) | payer MEDICARE ==
[~2021-12-09] VITALS: Ht 157 cm; Wt 68.0 kg
[~2021-12-09 11:19] MED LIST changes: -CEPH500T PO
[2021-12-09] MEDS ORDERED: fentaNYL INJ 100 MCG/2 ML AMP IVP STA (11:34)
--- NOTE | 2021-12-09 11:38 | ED Neck-Back Pain/Injury ---
General Chief Complaint: Head/Cervical Problems Stated Complaint: NECK AND BACK PAIN Source of Information: Patient Exam Limitations: No Limitations (AIDEE SÁNCHEZ) History of Present Illness Date Seen by Provider: Dec 09, 2021 Time Seen by Provider: 11:37 Initial Comments Patient is a 76-year-old female presents ED with left-sided neck pain and hip pain. Symptoms started 1 hour ago after dialysis. She does dialysis every other day. History of diabetes being treated for a diabetic ulcer right foot with hyperbaric oxygen therapy. Patient states acute onset at dialysis. She states she felt fine this morning. No falls. Denies chest pain, abdominal pain, vomiting, diarrhea fever, chills. She reports a mild cough. Intermittent changes in urination but this appears chronic. She reports history of similar symptoms but not as severe. No headache, visual changes, change in mental status, distal numbness and tingling. Denies taking thing for pain. Was brought to ED by a friend. (AIDEE SÁNCHEZ) Allergies and Home Medications Allergies Coded Allergies: lisinopril (Verified Allergy, Mild, 12/29/16) sulfamethoxazole (Verified Allergy, Mild, 12/29/16) trimethoprim (Verified Allergy, Mild, 12/29/16) vancomycin (Verified Allergy, Mild, 12/29/16) clopidogrel (Unverified Allergy, Unknown, BLEEDING, 04/24/16) gabapentin (Unverified Allergy, Unknown, 04/24/16) Patient Home Medication List Home Medication List Reviewed: Yes (AIDEE SÁNCHEZ) Amitriptyline HCl (Amitriptyline HCl) 25 Mg Tablet, 75 MG PO HS, (Reported) Entered as Reported by: CLARA CRAMER on 11/11/16 1153 Amlodipine Besylate (Norvasc) 10 Mg Tablet, 10 MG PO HS, (Reported) Entered as Reported by: RACHEAL HUI on 08/14/14 1306 Atenolol (Atenolol) 50 Mg Tablet, 50 MG PO DAILY, (Reported) Entered as Reported by: CLARA CRAMER on 11/11/16 1153 Atorvastatin Calcium (Atorvastatin Calcium) 10 Mg Tablet, 10 MG PO HS Prescribed by: URMILA SUTHERLAND on 11/15/16 1008 Cephalexin (Cephalexin) 500 Mg Tablet, 500 MG PO BID Prescribed by: DINO NOVAK on 12/09/21 1532 Cholecalciferol (Vitamin D3) (Vitamin D-3) 2,000 Unit Capsule, 2,000 UNIT PO BID, (Reported) Entered as Reported by: SHAYNA ARANGO on 07/10/16 1548 Cinnamon Bark (Cinnamon) 500 Mg Capsule, 500 MG PO BID, (Reported) Entered as Reported by: CLARA CRAMER on 11/11/16 1153 Doxycycline Monohydrate (Doxycycline Monohydrate) 100 Mg Capsule, 100 MG PO BID, (Reported) Entered as Reported by: CLARA CRAMER on 11/11/16 1153 Furosemide (Lasix) 40 Mg Tablet, 40 MG PO BID, (Reported) Entered as Reported by: RACHEAL HUI on 08/14/14 1259 Insulin Detemir (Levemir) 100 U/Ml Vial, 10 U SQ HS, (Reported) Entered as Reported by: TRAE RESTREPO on 12/05/14 1345 Multivitamin (Multivitamins) 1 Each Tablet, 1 TAB PO DAILY, (Reported) Entered as Reported by: CLARA CRAMER on 11/11/16 1158 Oxycodone Hcl (Oxycodone IR Hcl) 5 Mg Tablet, 5-10 MG PO QID PRN for PAIN, (Reported) Entered as Reported by: RACHEAL HUI on 08/14/14 1316 Pantoprazole Sod (Protonix Tab) 40 Mg Tab, 40 MG PO DAILY, (Reported) Entered as Reported by: KATHARINE GARCIA on 02/20/13 1158 Sennosides/Docusate Sodium (Docusate Sodium-Senna Tablet) 1 Each Tablet, 1 TAB PO BID, (Reported) Entered as Reported by: CLARA CRAMER on 11/11/16 1157 Review of Systems Constitutional: No chills, No diaphoresis, No fever, No malaise, No weakness EENTM: No hearing loss, No double vision, No vision loss, No throat pain, No throat swelling Respiratory: No cough, No dyspnea on exertion, No orthopnea, No short of breath Gastrointestinal: No abdominal pain, No diarrhea, No nausea, No vomiting Musculoskeletal: joint pain, muscle pain; No muscle stiffness, No muscle cramps Skin: No change in color, No change in hair/nails (AIDEE SÁNCHEZ) All Other Systems Reviewed Negative Unless Noted: Yes (AIDEE SÁNCHEZ) Past Nrbglyc-Zblsoe-Rsrhnc Hx Immunizations Up To Date Tetanus Booster (TDap): Unknown PED Vaccines UTD: No (AIDEE SÁNCHEZ) Seasonal Allergies Seasonal Allergies: No (AIDEE SÁNCHEZ) Past Medical History Surgeries: Yes (c-sectionsx2, cholesectomy, carpel tunnel releasex2, hysterectomy, caract r) Eye Surgery, Gallbladder, Hysterectomy, Oophorectomy, Orthopedic, Vascular Surgery Respiratory: Yes Asthma Cardiac: Yes (NEAR SYNCOPAL EPISODES) Chronic Edema/Swelling, High Cholesterol, Hypertension, Peripheral Vascular Neurological: Yes (NEUROPATHY IN HANDS, FEET AND LEGS; STROKE WITH RIGHT ARM WEAKNESS) Neuropathy, Stroke 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 Disorders: Yes (2 MISCARRIAGES) Female 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 Disorders: 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, Menopausal Sexually Transmitted Disease: No Kidney Infection, Renal Failure, Dialysis Gastrointestinal: Yes Gastroesophageal Reflux Musculoskeletal: Yes Osteoporosis, Arthritis, Chronic Back Pain, Fractures Endocrine: Yes Diabetes, Insulin dep Cataract, Double Vision Hearing Impairment: Denies Cancer: Yes Melanoma Psychosocial: Yes Anxiety, Depression Integumentary: Yes (CHRONIC WOUND RIGHT FOOT/ANKLE) Blood Disorders: No Adverse Reaction/Blood Tranf: No (AIDEE SÁNCHEZ) Family Medical History Cancer G8 SISTER (breast cancer) Cataract 19 MOTHER Dementia 19 MOTHER Family history: Breast disease G8 SISTER (breast cancer) Family history: Diabetes mellitus 19 FATHER G8 SISTER Heart disease 19 MOTHER Parkinson's disease 19 MOTHER Physical Exam Vital Signs Vital Signs - First Documented 12/09/21 11:45 Pulse 87 Resp 14 B/P (MAP) 143/54 (83) Pulse Ox 95 O2 Delivery Nasal Cannula O2 Flow Rate 2.00 (NATTY BUTCHER MD) Vital Signs Capillary Refill : (AIDEE SÁNCHEZ) Height, Weight, BMI Height: 5'4.00" Weight: 160lbs. 0.0oz. [id number]; 25.00 BMI Method:Stated General Appearance: No Apparent Distress, WD/WN HEENT: PERRL/EOMI, TMs Normal, Normal ENT Inspection, Pharynx Normal Neck: Full Range of Motion, Supple, Other (Left cervical paraspinal muscle tenderness.) Cardiovascular: Regular Rate, Rhythm, No Edema, No Gallop, No JVD Respiratory: Chest Non Tender, Lungs Clear, Normal Breath Sounds, No Accessory Muscle Use, No Respiratory Distress Gastrointestinal: Normal Bowel Sounds, No Organomegaly, No Pulsatile Mass Back: Other (Left lower lumbar paraspinal muscle tenderness. No thoracic or lumbar midline tenderness.) Neurologic/Psychiatric: Alert, Oriented x3, No Motor/Sensory Deficits, Normal Mood/Affect (AIDEE SÁNCHEZ) Progress/Results/Core Measures Results/Orders Lab Results Laboratory Tests Test 12/09/21 12:02 12/09/21 14:05 Range/Units White Blood Count 15.2 H 4.3-11.0 10^3/uL Red Blood Count 3.10 L 3.80-5.11 10^6/uL Hemoglobin 10.1 L 11.5-16.0 g/dL Hematocrit 32 L 35-52 % Mean Corpuscular Volume 104 H 80-99 fL Mean Corpuscular Hemoglobin 33 25-34 pg Mean Corpuscular Hemoglobin Concent 31 L 32-36 g/dL Red Cell Distribution Width 14.5 10.0-14.5 % Platelet Count 145 130-400 10^3/uL Mean Platelet Volume 10.3 9.0-12.2 fL Immature Granulocyte % (Auto) 1 % Neutrophils (%) (Auto) 87 H 42-75 % Lymphocytes (%) (Auto) 6 L 12-44 % Monocytes (%) (Auto) 6 0-12 % Eosinophils (%) (Auto) 0 0-10 % Basophils (%) (Auto) 0 0-10 % Neutrophils # (Auto) 13.2 H 1.8-7.8 10^3/uL Lymphocytes # (Auto) 0.9 L 1.0-4.0 10^3/uL Monocytes # (Auto) 0.9 0.0-1.0 10^3/uL Eosinophils # (Auto) 0.1 0.0-0.3 10^3/uL Basophils # (Auto) 0.0 0.0-0.1 10^3/uL Immature Granulocyte # (Auto) 0.1 0.0-0.1 10^3/uL Neutrophils % (Manual) 78 % Lymphocytes % (Manual) 11 % Monocytes % (Manual) 4 % Eosinophils % (Manual) 2 % Basophils % (Manual) 0 % Band Neutrophils 5 % Blood Morphology Comment NORMAL Sodium Level 136 135-145 MMOL/L Potassium Level 5.2 H 3.6-5.0 MMOL/L Chloride Level 93 L 98-107 MMOL/L Carbon Dioxide Level 29 21-32 MMOL/L Anion Gap 14 5-14 MMOL/L Blood Urea Nitrogen 31 H 7-18 MG/DL Creatinine 4.10 H 0.60-1.30 MG/DL Estimat Glomerular Filtration Rate 11 BUN/Creatinine Ratio 8 Glucose Level 170 H 70-105 MG/DL Calcium Level 9.0 8.5-10.1 MG/DL Corrected Calcium 9.0 8.5-10.1 MG/DL Total Bilirubin 0.6 0.1-1.0 MG/DL Aspartate Amino Transf (AST/SGOT) 26 5-34 U/L Alanine Aminotransferase (ALT/SGPT) 18 0-55 U/L Alkaline Phosphatase 114 40-136 U/L Total Protein 7.8 6.4-8.2 GM/DL Albumin 4.0 3.2-4.5 GM/DL Lipase 15 8-78 U/L Urine Color YELLOW Urine Clarity CLEAR Urine pH 8.5 5-[address] 1.015 L 1.016-1.022 Urine Protein 2+ H NEGATIVE Urine Glucose (UA) NEGATIVE NEGATIVE Urine Ketones NEGATIVE NEGATIVE Urine Nitrite NEGATIVE NEGATIVE Urine Bilirubin NEGATIVE NEGATIVE Urine Urobilinogen 0.2 < = 1.0 MG/DL Urine Leukocyte Esterase 1+ H NEGATIVE Urine RBC (Auto) TRACE-I H NEGATIVE Urine RBC 0-2 /HPF Urine WBC 10-25 H /HPF Urine Squamous Epithelial Cells 10-25 H /HPF Urine Crystals NONE /LPF Urine Bacteria FEW H /HPF Urine Casts PRESENT /LPF Urine Hyaline Casts RARE /LPF Urine Mucus NEGATIVE /LPF Urine Culture Indicated YES (NATTY BUTCHER MD) Micro Results Microbiology 12/09/21 Urine Culture - Final, Complete NO GROWTH (NATTY BUTCHER MD) Vital Signs/I&O 12/09/21 12/09/21 11:45 16:25 Pulse 87 Resp 14 18 B/P (MAP) 143/54 (83) 138/59 Pulse Ox 95 93 O2 Delivery Nasal Cannula Room Air O2 Flow Rate 2.00 (NATTY BUTCHER MD) Departure Communication (Admissions) Patient with increased stress at home. Secondary to a level one who is currently sick. Emotionally having difficulty handling this at home. Phy sically she is doing okay. Home health sees her twice a week. She currently is being followed by wound care throughout the week as well as dialysis twice a week. She receives hyperbaric oxygen therapy for chronic wound to right leg. No redness to the right lower extremity. No purulent drainage. She states she has no pain in her right leg. Patient was slightly lethargic on arrival and appeared tired. Became slightly hypoxic and was given to 2 L oxygen. Concerning that patient took too much of her oxycodone which she did take a dose before dialysis and 2 doses at dialysis secondary this pain in her neck. Similar type pain in the neck previously. Appears to be located left-sided paraspinal muscle more muscles tenderness. Pain improved without any pain medication here. She has no meningeal signs. Patient was observed here in the ED for 4+ hours. Symptoms and continue proved. Was able to remove oxygen and remained around 93% on room air. Denies history of hypoxia. She reports a mild cough for several weeks. Chest x-ray without evidence of consolidation. Atelectasis versus pneumonitis. Slight elevated white blood count 15,000. Chronic anemia. Chronic kidney disease. Slight elevated potassium of 5.2. Her friend Brittney is concerned for patient at home. She does get up and ambulate at home but over the past week and a half has not been acting her normal self. This appears to be due to her caregiver who is currently sick. Patient was discussed with at [facility]. Patient will follow up in the office this Wednesday. Appointment was established. Patient may need more one-to-one care at home. She states she took the pain medication this morning because of the pain in her neck. Similar type pain in the past. Not concern for suicidal attempt. She denies this. She is refusing any type of retirement. Patient will need to be evaluated and discussed her options. Concerning that her friend is having difficulty taking care of her at home. Patient feels safe to return at home. She has no other current complaints. Urinalysis concerning for infection but did have's some squamous cells. Patient was given dose of Rocephin. Culture pending but will discharge with antibiotics secondary potential UTI versus slight elevated white blood count. She does not appear septic or toxic. social media senior associate was contacted for patient (AIDEE SÁNCHEZ) Impression Primary Impression: Neck pain Additional Impression: UTI (urinary tract infection) Disposition: 01 HOME, SELF-CARE Condition: Stable Departure-Patient Inst. Decision time for Depature: 15:31 (AIDEE SÁNCHEZ) Referrals: OLYA WILLIS MD (PCP/Family) Primary Care Physician Patient Instructions: Neck Stretches Scripts Cephalexin (Cephalexin) 500 Mg Tablet 500 MG PO BID for 7 Days, #14 TAB Prov: AIDEE SÁNCHEZ 12/09/21 ATTENDING PHYSICIAN NOTE: I was physically present as attending physician in the emergency department during the care of this patient, but I was not directly involved in the decision making or delivery of care for this patient. (NATTY BUTCHER MD) AIDEE SÁNCHEZ Dec 09, 2021 11:38 NATTY BUTCHER MD Dec 11, 2021 08:53
[2021-12-09 12:08] LABS: BASOPHILS % (AUTO) 0 % (0-10); EOSINOPHILS # (AUTO) 0.1 10^3/uL (0.0-0.3); EOSINOPHILS % (AUTO) 0 % (0-10); HEMATOCRIT 32 % (35-52); HEMOGLOBIN 10.1 g/dL (11.5-16.0); LYMPHOCYTES # (AUTO) 0.9 10^3/uL (1.0-4.0); LYMPHOCYTES % (AUTO) 6 % (12-44); MEAN CORPUSCULAR HEMOGLOBIN 33 pg (25-34); MEAN CORPUSCULAR HGB CONC 31 g/dL (32-36); MEAN CORPUSCULAR VOLUME 104 fL (80-99); MEAN PLATELET VOLUME 10.3 fL (9.0-12.2); MONOCYTES # (AUTO) 0.9 10^3/uL (0.0-1.0); MONOCYTES % (AUTO) 6 % (0-12); NEUTROPHILS # (AUTO) 13.2 10^3/uL (1.8-7.8); NEUTROPHILS % (AUTO) 87 % (42-75); PLATELET COUNT 145 10^3/uL (130-400); WHITE BLOOD COUNT 15.2 10^3/uL (4.3-11.0)
[2021-12-09 12:29] LABS: POTASSIUM 5.2 MMOL/L (3.6-5.0)
--- NOTE | 2021-12-09 12:29 | Diagnostic Imaging Report ---
INDICATION: Cough. COMPARISON: 05/29/2020. TECHNIQUE: Single radiograph of the chest dated 08/08/2022. FINDINGS: The cardiac silhouette is enlarged, though stable from the prior examination. No significant pleural effusion. Minimal right basilar interstitial opacities are present, these appear improved from the prior examination. Minimal left basilar interstitial opacities are present. No significant pleural effusion. No pneumothorax. Left shoulder arthroplasty. No acute osseous abnormality. IMPRESSION: Mild bibasilar atelectasis and/or pneumonitis. Persistent enlargement of the cardiac silhouette without significant pulmonary vascular congestion. Dictated by: Dictated on workstation # [id number]
[2021-12-09 12:31] LABS: TOTAL PROTEIN 7.8 GM/DL (6.4-8.2)
[2021-12-09 12:33] LABS: BILIRUBIN,TOTAL 0.6 MG/DL (0.1-1.0)
[2021-12-09 12:34] LABS: CREATININE SERUM 4.1 MG/DL (0.60-1.30)
[2021-12-09 12:39] LABS: BAND NEUTROPHILS 5 %; BASOPHILS % (MANUAL) 0 %; EOSINOPHILS % (MANUAL) 2 %; LYMPHOCYTES % (MANUAL) 11 %; MONOCYTES % (MANUAL) 4 %; NEUTROPHILS % (MANUAL) 78 %; RBC MORPH NORMAL
[2021-12-09 14:09] LABS: BILIRUBIN,URINE NEGATIVE (NEGATIVE); CLARITY,URINE CLEAR; COLOR,URINE YELLOW; GLUCOSE, URINE (UA) NEGATIVE (NEGATIVE); KETONES,URINE NEGATIVE (NEGATIVE); LEUKOCYTE ESTERASE ,URINE 1+ (NEGATIVE); NITRITE,URINE NEGATIVE (NEGATIVE); PH,URINE 8.5 (5-9); PROTEIN,URINE 2+ (NEGATIVE)
[2021-12-09 14:33] LABS: RBC,URINE 0-2 /HPF
[2021-12-09 14:34] LABS: BACTERIA,URINE FEW /HPF; HYALINE CASTS, URINE RARE /LPF
[2021-12-09] MEDS ORDERED: cefTRIAXone 1 GM PRE-MIX 50 ML IV STA (14:36)
[2021-12-09] MEDS ORDERED: CEPH500T PO (15:32)
[2021-12-09 16:25] VITALS: BP 138/59
== END 2021-12-09 16:25 | disposition home or self-care (01) ==
LOC: EDUNIT# 11:19 → ER 11:21
DX: N39.0 Urinary tract infection, site not specified (principal); M54.2 Cervicalgia; D72.829 Elevated white blood cell count, unspecified; R05.9 Cough, unspecified; I10 Essential (primary) hypertension; E11.40 Type 2 diabetes mellitus with diabetic neuropathy, unspecified; J45.909 Unspecified asthma, uncomplicated; E78.00 Pure hypercholesterolemia, unspecified; K21.9 Gastro-esophageal reflux disease without esophagitis; G89.29 Other chronic pain; M54.9 Dorsalgia, unspecified; M81.0 Age-related osteoporosis without current pathological fracture; Z79.4 Long term (current) use of insulin; Z79.891 Long term (current) use of opiate analgesic; Z88.1 Allergy status to other antibiotic agents; Z88.2 Allergy status to sulfonamides; Z79.899 Other long term (current) drug therapy
CPT/HCPCS: 36415; 71045; 80053; 81000; 83690; 85007; 85027; 87088; 93005

== ENCOUNTER → 2021-12-15 | Outpatient (CLI) | payer MEDICARE ==
[~2021-12-15] MED LIST changes: +CEPH500T PO
== END ==
LOC: WOUNDCARE 08:03
PROVIDERS: ATTEND Family Medicine
DX: E11.52 Type 2 diabetes mellitus with diabetic peripheral angiopathy with gangrene (principal); L97.416 Non-pressure chronic ulcer of right heel and midfoot with bone involvement without evidence of necrosis; E11.40 Type 2 diabetes mellitus with diabetic neuropathy, unspecified; I70.261 Atherosclerosis of native arteries of extremities with gangrene, right leg; I89.0 Lymphedema, not elsewhere classified; E11.22 Type 2 diabetes mellitus with diabetic chronic kidney disease; N18.6 End stage renal disease; M86.071 Acute hematogenous osteomyelitis, right ankle and foot; M21.761 Unequal limb length (acquired), right tibia; L03.115 Cellulitis of right lower limb
CPT/HCPCS: 11042; G0463

== ENCOUNTER → 2021-12-22 | Outpatient (RCR) | payer MEDICARE | END | disposition home or self-care (01) | LOC: WOUNDCARE 11-26 08:13 | PROVIDERS: ATTEND Family Medicine | DX: E11.621 Type 2 diabetes mellitus with foot ulcer (principal); L97.419 Non-pressure chronic ulcer of right heel and midfoot with unspecified severity | CPT/HCPCS: 82947; G0277; 99183 ==

== ENCOUNTER → 2021-12-22 | Outpatient (CLI) | payer MEDICARE | LOC: WOUNDCARE 08:15 | PROVIDERS: ATTEND Family Medicine | DX: E11.621 Type 2 diabetes mellitus with foot ulcer (principal); L97.416 Non-pressure chronic ulcer of right heel and midfoot with bone involvement without evidence of necrosis; E11.40 Type 2 diabetes mellitus with diabetic neuropathy, unspecified; I70.234 Atherosclerosis of native arteries of right leg with ulceration of heel and midfoot; I89.0 Lymphedema, not elsewhere classified; E11.22 Type 2 diabetes mellitus with diabetic chronic kidney disease; N18.6 End stage renal disease; M86.071 Acute hematogenous osteomyelitis, right ankle and foot; M21.761 Unequal limb length (acquired), right tibia; L03.115 Cellulitis of right lower limb; E11.52 Type 2 diabetes mellitus with diabetic peripheral angiopathy with gangrene | CPT/HCPCS: 11042; G0463 ==

== ENCOUNTER → 2021-12-29 | Outpatient (CLI) | payer MEDICARE, OTHER | LOC: WOUNDCARE 08:17 | PROVIDERS: ATTEND Family Medicine | DX: E11.621 Type 2 diabetes mellitus with foot ulcer (principal); L97.416 Non-pressure chronic ulcer of right heel and midfoot with bone involvement without evidence of necrosis; E11.40 Type 2 diabetes mellitus with diabetic neuropathy, unspecified; I70.234 Atherosclerosis of native arteries of right leg with ulceration of heel and midfoot; I89.0 Lymphedema, not elsewhere classified; E11.22 Type 2 diabetes mellitus with diabetic chronic kidney disease; N18.6 End stage renal disease; M86.071 Acute hematogenous osteomyelitis, right ankle and foot; L03.115 Cellulitis of right lower limb; M21.761 Unequal limb length (acquired), right tibia; E11.52 Type 2 diabetes mellitus with diabetic peripheral angiopathy with gangrene | CPT/HCPCS: 11042; G0463 ==

== ENCOUNTER → 2022-01-05 | Outpatient (CLI) | payer MEDICARE | LOC: WOUNDCARE 08:15 | PROVIDERS: ATTEND Family Medicine | DX: E11.621 Type 2 diabetes mellitus with foot ulcer (principal); L97.416 Non-pressure chronic ulcer of right heel and midfoot with bone involvement without evidence of necrosis; E11.51 Type 2 diabetes mellitus with diabetic peripheral angiopathy without gangrene; I70.234 Atherosclerosis of native arteries of right leg with ulceration of heel and midfoot; E11.40 Type 2 diabetes mellitus with diabetic neuropathy, unspecified; I89.0 Lymphedema, not elsewhere classified; E11.22 Type 2 diabetes mellitus with diabetic chronic kidney disease; N18.6 End stage renal disease; M86.071 Acute hematogenous osteomyelitis, right ankle and foot; M21.761 Unequal limb length (acquired), right tibia; Z99.2 Dependence on renal dialysis | CPT/HCPCS: 99212 ==

== ENCOUNTER 2022-01-21 08:15 | Outpatient (RCR) | payer MEDICARE, OTHER | END 2022-01-22 | disposition home or self-care (01) | LOC: WOUNDCARE 08:15 | PROVIDERS: ATTEND Family Medicine | DX: E11.622 Type 2 diabetes mellitus with other skin ulcer (principal) | CPT/HCPCS: 82947; G0277; 99183 ==

== ENCOUNTER → 2022-01-21 | Outpatient (CLI) | payer MEDICARE | LOC: WOUNDCARE 08:13 | PROVIDERS: ATTEND Family Medicine | DX: E11.621 Type 2 diabetes mellitus with foot ulcer (principal); L97.416 Non-pressure chronic ulcer of right heel and midfoot with bone involvement without evidence of necrosis; E11.40 Type 2 diabetes mellitus with diabetic neuropathy, unspecified; I70.234 Atherosclerosis of native arteries of right leg with ulceration of heel and midfoot; I89.0 Lymphedema, not elsewhere classified; E11.22 Type 2 diabetes mellitus with diabetic chronic kidney disease; N18.6 End stage renal disease; M86.071 Acute hematogenous osteomyelitis, right ankle and foot; M21.761 Unequal limb length (acquired), right tibia; E11.52 Type 2 diabetes mellitus with diabetic peripheral angiopathy with gangrene | CPT/HCPCS: A6197; G0463; 99213 ==

== ENCOUNTER 2022-01-23 08:14 | Outpatient (RCR) | payer MEDICARE, OTHER | END 2022-01-26 12:00 | disposition home or self-care (01) | LOC: WOUNDCARE 08:14 | PROVIDERS: ATTEND Family Medicine | DX: E11.622 Type 2 diabetes mellitus with other skin ulcer (principal) | CPT/HCPCS: 82947 ×2; G0277 ×2; 99183 ==

== ENCOUNTER → 2022-01-26 | Outpatient (CLI) | payer MEDICARE | LOC: WOUNDCARE 08:17 | PROVIDERS: ATTEND Family Medicine | DX: E11.621 Type 2 diabetes mellitus with foot ulcer (principal); L97.416 Non-pressure chronic ulcer of right heel and midfoot with bone involvement without evidence of necrosis; E11.40 Type 2 diabetes mellitus with diabetic neuropathy, unspecified; I70.234 Atherosclerosis of native arteries of right leg with ulceration of heel and midfoot; I89.0 Lymphedema, not elsewhere classified; E11.22 Type 2 diabetes mellitus with diabetic chronic kidney disease; N18.6 End stage renal disease; M86.071 Acute hematogenous osteomyelitis, right ankle and foot; M21.761 Unequal limb length (acquired), right tibia | CPT/HCPCS: A6212; G0463; 99213 ==

== ENCOUNTER → 2022-02-02 | Outpatient (CLI) | payer MEDICARE | LOC: WOUNDCARE 11:04 | PROVIDERS: ATTEND Family Medicine | DX: E11.621 Type 2 diabetes mellitus with foot ulcer (principal); L97.416 Non-pressure chronic ulcer of right heel and midfoot with bone involvement without evidence of necrosis; E11.40 Type 2 diabetes mellitus with diabetic neuropathy, unspecified; I70.234 Atherosclerosis of native arteries of right leg with ulceration of heel and midfoot; I89.0 Lymphedema, not elsewhere classified; E11.22 Type 2 diabetes mellitus with diabetic chronic kidney disease; N18.6 End stage renal disease; M86.071 Acute hematogenous osteomyelitis, right ankle and foot; M21.761 Unequal limb length (acquired), right tibia | CPT/HCPCS: A6212; G0463; 99213 ==

== ENCOUNTER 2022-02-12 10:05 | Emergency (ER) | payer MEDICARE ==
[~2022-02-12] VITALS: Ht 157 cm; Wt 64.8 kg
--- NOTE | 2022-02-12 11:03 | ED Fall/Injury ---
General Chief Complaint: Trauma-Non Activation Stated Complaint: FALL Nursing Triage Note: PT PRESENTS TO ED VIA EMS FROM HOME FOR FALL. PT REPORTS SHE STARTED TAKING LYRICA LAST WEEK AND HAS HAD ISSUES WITH DIZZINESS SINCE. PT REPORTS SHE WAS TRANSFERRING SELF FROM WC TO TOILET AND FELL HITTING HEAD ON BATHTUB. PT DENEIS LOC, BUT REPORTS L SHOULDER AND L HIP PAIN. PT WAS DUE FOR DYALYSIS TODAY AND HER NURSES CALLED EMS FOR A WELLFAIR CHECK WHEN SHE MISSED HER APT. PT STATES SHE BECAME STUCK WHEN SHE FELL. Source: patient, family, EMS Exam Limitations: no limitations History of Present Illness Date Seen by Provider: Feb 12, 2022 Time Seen by Provider: 10:06 Initial Comments 77-year-old female with past medical history of ESRD on HD, chronic right leg wound on hyperbaric oxygen therapy coming in via EMS after a fall. She was transferring to go to the bathroom when she felt like her legs gave out falling onto her left side and hitting her head. She did not pass out and remembers all of the events. She is mostly having left shoulder and left hip pain. She does not take any blood thinners. She says she is generally weak and works with therapy. This is due to the wound in her right foot making it difficult for her to walk for quite some time. She is otherwise denying any other acute complaints. Location Injury Occurred: HOME RESIDENCE Allergies and Home Medications Allergies Coded Allergies: lisinopril (Verified Allergy, Mild, 12/29/16) sulfamethoxazole (Verified Allergy, Mild, 12/29/16) trimethoprim (Verified Allergy, Mild, 12/29/16) vancomycin (Verified Allergy, Mild, 12/29/16) clopidogrel (Unverified Allergy, Unknown, BLEEDING, 04/24/16) gabapentin (Unverified Allergy, Unknown, 04/24/16) Patient Home Medication List Home Medication List Reviewed: Yes Amitriptyline HCl (Amitriptyline HCl) 25 Mg Tablet, 75 MG PO HS, (Reported) Entered as Reported by: CLAAR CRAMER on 11/11/16 1153 Amlodipine Besylate (Norvasc) 10 Mg Tablet, 10 MG PO HS, (Reported) Entered as Reported by: RACHEAL HUI on 08/14/14 1306 Atenolol (Atenolol) 50 Mg Tablet, 50 MG PO DAILY, (Reported) Entered as Reported by: CLARA CRAMER on 11/11/16 1153 Atorvastatin Calcium (Atorvastatin Calcium) 10 Mg Tablet, 10 MG PO HS Prescribed by: URMILA SUTHERLAND on 11/15/16 1008 Cephalexin (Cephalexin) 500 Mg Tablet, 500 MG PO BID Prescribed by: DINO NOVAK on 12/09/21 1532 Cholecalciferol (Vitamin D3) (Vitamin D-3) 2,000 Unit Capsule, 2,000 UNIT PO BID, (Reported) Entered as Reported by: SHAYNA ARANGO on 07/10/16 1548 Cinnamon Bark (Cinnamon) 500 Mg Capsule, 500 MG PO BID, (Reported) Entered as Reported by: CLARA CRAMER on 11/11/16 1153 Doxycycline Monohydrate (Doxycycline Monohydrate) 100 Mg Capsule, 100 MG PO BID, (Reported) Entered as Reported by: CLARA CRAMER on 11/11/16 1153 Furosemide (Lasix) 40 Mg Tablet, 40 MG PO BID, (Reported) Entered as Reported by: RACHEAL HUI on 08/14/14 1259 Insulin Detemir (Levemir) 100 U/Ml Vial, 10 U SQ HS, (Reported) Entered as Reported by: TRAE RESTREPO on 12/05/14 1345 Multivitamin (Multivitamins) 1 Each Tablet, 1 TAB PO DAILY, (Reported) Entered as Reported by: CLARA CRAMER on 11/11/16 1158 Oxycodone Hcl (Oxycodone IR Hcl) 5 Mg Tablet, 5-10 MG PO QID PRN for PAIN, (Reported) Entered as Reported by: RACHEAL HUI on 08/14/14 1316 Pantoprazole Sod (Protonix Tab) 40 Mg Tab, 40 MG PO DAILY, (Reported) Entered as Reported by: KATHARINE GARCIA on 02/20/13 1158 Sennosides/Docusate Sodium (Docusate Sodium-Senna Tablet) 1 Each Tablet, 1 TAB PO BID, (Reported) Entered as Reported by: CLARA CRAMER on 11/11/16 1157 Review of Systems Review of Systems Constitutional: No chills, No fever Eyes: Denies Blurred Vision Ears, Nose, Mouth, Throat: no symptoms reported Respiratory: no symptoms reported Cardiovascular: no symptoms reported Gastrointestinal: no symptoms reported Genitourinary: no symptoms reported Musculoskeletal: joint pain Skin: no symptoms reported Psychiatric/Neurological: No Symptoms Reported All Other Systems Reviewed Negative Unless Noted: Yes Past Uxyvidp-Spbdqd-Gxxlcz Hx Patient Social History Tobacco Use?: No Substance use?: No Alcohol Use?: No Pt feels they are or have been: No Immunizations Up To Date Tetanus Booster (TDap): Unknown PED Vaccines UTD: No Seasonal Allergies Seasonal Allergies: No Past Medical History Surgery/Hospitalization HX: diabetes, dialysis pt Surgeries: Yes (c-sectionsx2, cholesectomy, carpel tunnel releasex2, hysterectomy, caract r) Eye Surgery, Gallbladder, Hysterectomy, Oophorectomy, Orthopedic, Vascular Surgery Respiratory: Yes Asthma Cardiac: Yes (NEAR SYNCOPAL EPISODES) Chronic Edema/Swelling, High Cholesterol, Hypertension, Peripheral Vascular Neurological: Yes (NEUROPATHY IN HANDS, FEET AND LEGS; STROKE WITH RIGHT ARM WEAKNESS) Neuropathy, Stroke 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 Disorders: Yes (2 MISCARRIAGES) Female 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 Disorders: 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 History: Hysterectomy, Menopausal Sexually Transmitted Disease: No Kidney Infection, Renal Failure, Dialysis Gastrointestinal: Yes Gastroesophageal Reflux Musculoskeletal: Yes Osteoporosis, Arthritis, Chronic Back Pain, Fractures Endocrine: Yes Diabetes, Insulin dep Cataract, Double Vision Hearing Impairment: Denies Cancer: Yes Melanoma Psychosocial: Yes Anxiety, Depression Integumentary: Yes (CHRONIC WOUND RIGHT FOOT/ANKLE) Blood Disorders: No Adverse Reaction/Blood Tranf: No Family Medical History Cancer G8 SISTER (breast cancer) Cataract 19 MOTHER Dementia 19 MOTHER Family history: Breast disease G8 SISTER (breast cancer) Family history: Diabetes mellitus 19 FATHER G8 SISTER Heart disease 19 MOTHER Parkinson's disease 19 MOTHER Physical Exam Vital Signs Vital Signs - First Documented 02/12/22 10:14 Temp 36.0 Pulse 63 Resp 22 B/P (MAP) 149/59 (89) Pulse Ox 92 Capillary Refill : Less Than 3 Seconds Height, Weight, BMI Height: 5'4.00" Weight: 160lbs. 0.0oz. [id number]; 26.00 BMI Method:Stated General Appearance: WD/WN, no apparent distress HEENT: PERRL/EOMI, normal ENT inspection, pharynx normal Neck: non-tender, full range of motion, supple, normal inspection Cardiovascular: regular rate, rhythm, no edema, no murmur Respiratory: chest non-tender, lungs clear, normal breath sounds, no respiratory distress, no accessory muscle use Gastrointestinal: normal bowel sounds, non tender, soft; No distended, No guarding, No rebound Back: normal inspection, no CVA tenderness, no vertebral tenderness Extremities: normal inspection, no pedal edema, no calf tenderness, normal capillary refill, other (pain with movement of left shoulder, left hip pain to palpation but not to logroll) 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, no motor/sensory deficits, alert, normal mood/affect, oriented x 3 Skin: normal color, warm/dry Lymphatic: no adenopathy Jesus Coma Score Best Eye Response: (4) Open Spontaneously Best Verbal Response: (5) Oriented Best Motor Response: (6) Obeys Commands Progress/Results/Core Measures Results/Orders My Orders Orders - AIDEE LOZOYA MD Chest 1 View, Ap/Pa Only (02/12/22 10:34) Shoulder, Left, 3 Views (02/12/22 10:34) Pelvis With Left Hip 2-3 Views (02/12/22 10:34) Ct Head/Cervical Spine Wo (02/12/22 10:34) Vital Signs/I&O 02/12/22 10:14 Temp 36.0 Pulse 63 Resp 22 B/P (MAP) 149/59 (89) Pulse Ox 92 Blood Pressure Mean: 89 Progress Progress Note : Progress Note 77-year-old female coming in after mechanical fall landing on her left side. ABCs were intact, GCS 15, vital stable on presentation. Physical exam with left shoulder tenderness and left hip tenderness on exam. CT head, cervical spine, x-ray chest, left shoulder, left hip and pelvis ordered. The only thing potentially acutely wrong was with her left shoulder it looks like her prosthesis was potentially dislocated. I reviewed her x-ray of her chest from 2 months ago and it appeared the same. When discussed with the patient she says that this has been a known issue that she has discussed with her surgeon. I called our orthopedic surgeon on-call, Dr. Bowens and reviewed the images with him as well. He just recommends follow-up with her orthopedic doctor and a sling for comfort. I believe the patient is stable for discharge with outpat ient follow-up. She was sent home with strict return precautions Diagnostic Imaging Diagonstic Imaging: Xray (left shoulder, pelvis/left hip), CT (head and c spine) Comments [facility] [place] [place] NAME: NAKUL MILLER [facility] REC#: [id number] PT STATUS: REG ER : 1945 PHYSICIAN: AIDEE LOZOYA MD ADMIT DATE: 02/12/22/ER Draft Date of Exam:02/12/22 SHOULDER, LEFT, 3 VIEWS INDICATION: Left shoulder pain. AP, oblique and transscapular views of left shoulder are obtained. Since 12/23/2010, there has been performance of left shoulder arthroplasty. There is superior subluxation/dislocation of the humeral head component with irregularity of the glenoid fossa. There does appear to be articulation with the humeral head along the undersurface of the acromion with advanced acromioclavicular degenerative findings. IMPRESSION: Superior subluxation/dislocation of left humeral prosthesis with irregularity of the glenoid process although no definite acute fracture is identified. Dictated on workstation # [id number] Dict: 02/12/22 1120 Trans: 02/12/22 1130 [id number] Interpreted by: SWATI NEVAREZ MD Electronically signed by: [facility] [place] NAME: NAKUL MILLER [facility] REC#: [id number] PT STATUS: REG ER : 1945 PHYSICIAN: AIDEE LOZOYA MD ADMIT DATE: 02/12/22/ER Signed Date of Exam:02/12/22 PELVIS WITH LEFT HIP 2-3 VIEWS PELVIS WITH LEFT HIP 2-3 VIEWS INDICATION: Pelvic pain after a fall. COMPARISON: 12/23/2020. TECHNIQUE: AP view of the pelvis. FINDINGS: Examination is suboptimal due to severe osseous demineralization resulting in limited visualization of the osseous structures. No displaced fractures appreciated. No hip dislocation. Sacrum and coccyx are not visualized to a degree that can be assessed for injury. Extensive vascular calcifications. IMPRESSION: Very limited examination due to patient's severe osseous demineralization that is likely from osteoporosis. There is no gross fracture, but if there is strong clinical suspicion for acute fracture, CT of the pelvis without contrast is recommended. Dictated by: Dictated on workstation # [id number] Dict: 02/12/22 1140 Trans: 02/12/221200 [id number] Interpreted by: SHILO العلي MD Electronically signed by: SHILO العلي MD 02/12/22 120 [facility] [place] NAME: NAKUL MILLER [facility] REC#: [id number] PT STATUS: REG ER : 1945 PHYSICIAN: AIDEE LOZOYA MD ADMIT DATE: 02/12/22/ER Signed Date of Exam:02/12/22 CHEST 1 VIEW, AP/PA ONLY CHEST 1 VIEW, AP/PA ONLY INDICATION: Chest injury, fall. COMPARISON: 12/09/2021. FINDINGS: Visualized lungs are clear. Posterior lower lobes are poorly evaluated by portable radiography. No pleural effusion or pneumothorax. Stable cardiomegaly. No displaced fracture in the visualized ribs or clavicles. Chronic superior rotator cuff tear on the right. IMPRESSION: 1. No acute cardiopulmonary process by portable radiography. Dictated by: Dictated on workstation # [id number] Dict: 02/12/22 1139 Trans: 02/12/22[facility] [id number] Interpreted by: SHILO العلي MD Electronically signed by: SHILO العلي MD 02/12/22 120 [facility] [place] [place] NAME: NAKUL MILLER [facility] REC#: [id number] PT STATUS: REG ER : 1945 PHYSICIAN: AIDEE LOZOYA MD ADMIT DATE: 02/12/22/ER Draft Date of Exam:02/12/22 CT HEAD/CERVICAL SPINE WO Clinical Indication: Patient is status post fall from wheelchair. Exam: Head CT without IV contrast with sagittal and coronal reformations. Axial CT scan of the cervical spine with sagittal and coronal reformations. Auto Exposure Controls were utilized during the CT exam to meet ALARA standards for radiation dose reduction. Comparison: CT scan of the head and cervical spine dated 12/23/2010. CT scan of the chest, abdomen, and pelvis with and without contrast dated 08/26/2020. Findings: Head CT: There is no evidence of acute cerebral infarct, intracranial hemorrhage, or gross mass effect. The brain parenchymal volume appears appropriate for patient's age. There is normal dempsey-white matter distinction. There is no significant midline shift or herniation. There is no evidence of hydrocephalus. The basal cisterns are unremarkable. Again seen, a small lipoma involving the left lateral suboccipital region. Otherwise, the skull, extracranial soft tissue, and orbits are unremarkable. The paranasal sinuses are unremarkable. There is a small amount of fluid and consolidation involving the left mastoid air cells. Cervical spine: There is no acute cervical spine fracture. Stable grade 1 anterolisthesis of C7 on T1 with no pars defect likely degenerative. There are hypertrophic spurs throughout the cervical spine and facet arthropathy. There is partially visualized at least 5 mm nodular area involving the left lung apex which is is also seen on the comparison CT scan of the chest, abdomen, and pelvis dated 08/26/2020. Impression: 1: There is no evidence of acute intracranial process. There is no skull fracture. 2: Cervical spine degenerative disease with no acute fracture or dislocation. Dictated on workstation # [id number] Dict: 02/12/22 1112 Trans: 02/12/22 1124 [facility] [id number] Interpreted by: CORTES MORALEZ MD Electronically signed by: Departure Impression Primary Impression: Fall Qualified Codes: W19.XXXA - Unspecified fall, initial encounter Additional Impression: Left shoulder pain Qualified Codes: M25.512 - Pain in left shoulder Disposition: 01 HOME, SELF-CARE Condition: Stable Departure-Patient Inst. Decision time for Depature: 12:51 Referrals: OLYA WILLIS MD (PCP/Family) Primary Care Physician Patient Instructions: Shoulder Pain (DC), Preventing Falls ED Add. Discharge Instructions: Your CT of your head, spine, and x-rays of your joints where you hurt were all normal except for your left shoulder which looks like your shoulder replacement is migrating up. If you would like to follow-up with a different bone doctor and then you can follow-up with Dr. Gong at [facility] in [place]. His number is [phone]. Leave the Steri-Strips on your left leg for at least 1 week and try not to get it wet. AIDEE LOZOYA MD Feb 12, 2022 11:03
--- NOTE | 2022-02-12 11:25 | Diagnostic Imaging Report ---
Clinical Indication: Patient is status post fall from wheelchair. Exam: Head CT without IV contrast with sagittal and coronal reformations. Axial CT scan of the cervical spine with sagittal and coronal reformations. Auto Exposure Controls were utilized during the CT exam to meet ALARA standards for radiation dose reduction. Comparison: CT scan of the head and cervical spine dated 12/23/2010. CT scan of the chest, abdomen, and pelvis with and without contrast dated 08/26/2020. Findings: Head CT: There is no evidence of acute cerebral infarct, intracranial hemorrhage, or gross mass effect. The brain parenchymal volume appears appropriate for patient's age. There is normal dempsey-white matter distinction. There is no significant midline shift or herniation. There is no evidence of hydrocephalus. The basal cisterns are unremarkable. Again seen, a small lipoma involving the left lateral suboccipital region. Otherwise, the skull, extracranial soft tissue, and orbits are unremarkable. The paranasal sinuses are unremarkable. There is a small amount of fluid and consolidation involving the left mastoid air cells. Cervical spine: There is no acute cervical spine fracture. Stable grade 1 anterolisthesis of C7 on T1 with no pars defect likely degenerative. There are hypertrophic spurs throughout the cervical spine and facet arthropathy. There is partially visualized at least 5 mm nodular area involving the left lung apex which is is also seen on the comparison CT scan of the chest, abdomen, and pelvis dated 08/26/2020. Impression: 1: There is no evidence of acute intracranial process. There is no skull fracture. 2: Cervical spine degenerative disease with no acute fracture or dislocation. Dictated by: Dictated on workstation # [id number]
--- NOTE | 2022-02-12 11:31 | Diagnostic Imaging Report ---
INDICATION: Left shoulder pain. AP, oblique and transscapular views of left shoulder are obtained. Since 12/23/2010, there has been performance of left shoulder arthroplasty. There is superior subluxation/dislocation of the humeral head component with irregularity of the glenoid fossa. There does appear to be articulation with the humeral head along the undersurface of the acromion with advanced acromioclavicular degenerative findings. IMPRESSION: Superior subluxation/dislocation of left humeral prosthesis with irregularity of the glenoid process although no definite acute fracture is identified. Dictated by: Dictated on workstation # [id number]
--- NOTE | 2022-02-12 11:43 | Diagnostic Imaging Report ---
CHEST 1 VIEW, AP/PA ONLY INDICATION: Chest injury, fall. COMPARISON: 12/09/2021. FINDINGS: Visualized lungs are clear. Posterior lower lobes are poorly evaluated by portable radiography. No pleural effusion or pneumothorax. Stable cardiomegaly. No displaced fracture in the visualized ribs or clavicles. Chronic superior rotator cuff tear on the right. IMPRESSION: 1. No acute cardiopulmonary process by portable radiography. Dictated by: Dictated on workstation # [id number]
--- NOTE | 2022-02-12 11:44 | Diagnostic Imaging Report ---
PELVIS WITH LEFT HIP 2-3 VIEWS INDICATION: Pelvic pain after a fall. COMPARISON: 12/23/2020. TECHNIQUE: AP view of the pelvis. FINDINGS: Examination is suboptimal due to severe osseous demineralization resulting in limited visualization of the osseous structures. No displaced fractures appreciated. No hip dislocation. Sacrum and coccyx are not visualized to a degree that can be assessed for injury. Extensive vascular calcifications. IMPRESSION: Very limited examination due to patient's severe osseous demineralization that is likely from osteoporosis. There is no gross fracture, but if there is strong clinical suspicion for acute fracture, CT of the pelvis without contrast is recommended. Dictated by: Dictated on workstation # [id number]
[2022-02-12 13:00] VITALS: BP 127/57
== END 2022-02-12 13:00 | disposition home or self-care (01) ==
LOC: EDUNIT# 10:05 → ER 10:07
DX: M25.512 Pain in left shoulder (principal); M25.552 Pain in left hip; Z87.39 Personal history of other diseases of the musculoskeletal system and connective tissue; W05.0XXA Fall from non-moving wheelchair, initial encounter; W22.09XA Striking against other stationary object, initial encounter; Y92.009 Unspecified place in unspecified non-institutional (private) residence as the place of occurrence of the external cause
CPT/HCPCS: 70450; 71045; 72125; 73030

== ENCOUNTER → 2022-02-13 | Outpatient (CLI) | payer MEDICARE | LOC: WOUNDCARE 08:38 | PROVIDERS: ATTEND Family Medicine | DX: E11.621 Type 2 diabetes mellitus with foot ulcer (principal); L97.416 Non-pressure chronic ulcer of right heel and midfoot with bone involvement without evidence of necrosis; E11.40 Type 2 diabetes mellitus with diabetic neuropathy, unspecified; I70.234 Atherosclerosis of native arteries of right leg with ulceration of heel and midfoot; I89.0 Lymphedema, not elsewhere classified; N18.6 End stage renal disease; Z99.2 Dependence on renal dialysis; M86.071 Acute hematogenous osteomyelitis, right ankle and foot; M21.761 Unequal limb length (acquired), right tibia | CPT/HCPCS: A6197; A6212; G0463; 99213 ==

== ENCOUNTER → 2022-03-02 | Outpatient (CLI) | payer MEDICARE | LOC: WOUNDCARE 11:22 | PROVIDERS: ATTEND Family Medicine | DX: E11.621 Type 2 diabetes mellitus with foot ulcer (principal); L97.416 Non-pressure chronic ulcer of right heel and midfoot with bone involvement without evidence of necrosis; E11.40 Type 2 diabetes mellitus with diabetic neuropathy, unspecified; I70.234 Atherosclerosis of native arteries of right leg with ulceration of heel and midfoot; I89.0 Lymphedema, not elsewhere classified; E11.22 Type 2 diabetes mellitus with diabetic chronic kidney disease; N18.6 End stage renal disease; Z99.2 Dependence on renal dialysis; M86.071 Acute hematogenous osteomyelitis, right ankle and foot; M21.761 Unequal limb length (acquired), right tibia; E11.52 Type 2 diabetes mellitus with diabetic peripheral angiopathy with gangrene; I96 Gangrene, not elsewhere classified | CPT/HCPCS: A6212; G0463; 99213 ==

== ENCOUNTER → 2022-03-10 | Outpatient (CLI) | payer MEDICARE ==
--- NOTE | 2022-03-10 17:20 | Diagnostic Imaging Report ---
PROCEDURE: MR imaging cervical spine without contrast. TECHNIQUE: Multiplanar, multisequence MR imaging of the cervical spine was performed without contrast. INDICATION: Falls, numbness in the hands and neck pain. COMPARISON with cervical MR 07/26/2020. FINDINGS: There are findings of multiple vertebral hemangiomas notably at C7-T1 and T3,chronic. No acute or new marrow signal abnormality. There is some mixed fatty and sclerotic Modic type II and type III changes at C4-C5 as well as fatty endplate changes at C3-C4. No acute bony abnormality. No paravertebral mass, hemorrhage or fluid collection. A T2 hyperintense nodule in the left subcutaneous fat in the neck posteriorly at the C2 level is stable. This may be a lipoma or a cyst. Craniocervical relationship unremarkable. Degenerative changes at the C1-C2 level result in no stenosis. C2-C3: Midline disc indents the ventral thecal sac but results in no substantial canal or foraminal stenosis. C3-C4: Osteophyte disc material and right greater than left uncovertebral joint spurring and facet arthrosis result in progressive severe central canal stenosis with some effacement and flattening of the cord. No cord edema or signal abnormality. At this level, there is severe right and moderate left foraminal stenoses, increased. C4-C5: There is progressive osteophyte disc material resulting in increased severe central canal stenosis with marked effacement flattening and indentation of the ventral cord. There is severe left and moderate right neuroforaminal stenoses. C5-C6: Left paramedian uncovertebral joint spurring and disc material effaces the ventral thecal sac and results in severe canal stenosis, increased from prior. There is moderate to severe biforaminal narrowing, increased. C6-C7: Posterior osteophyte disc material effaces and flattens the ventral thecal sac and results in moderate to severe canal stenosis with severe left and moderate right foraminal narrowing. C7-T1: Osteophyte disc material results in moderate canal stenosis. There is mild right and moderate left foraminal narrowing. IMPRESSION: There is progressive multilevel cervical disc displacement, endplate osteophytes, facet arthrosis and uncovertebral joint spurring resulting in very severe degrees of multilevel spinal canal and neuroforaminal stenoses. While substantial on the prior, the disease has increased in the interim and while significant at multiple levels, canal stenosis most profound at the C4-C5 and C5-C6 levels. Dictated by: Dictated on workstation # [id number]
--- NOTE | 2022-03-10 17:23 | Diagnostic Imaging Report ---
EXAMINATION: Magnetic resonance imaging of the right shoulder without contrast. DATE: March 10, 2022. COMPARISON: MRI right shoulder April 19, 2020. HISTORY: 77-year-old female, fall. Right shoulder pain. Right hand numbness. TECHNIQUE: Magnetic Resonance Imaging sequences were performed of the shoulder without contrast. FINDINGS: There are motion limitations on the exam. ROTATOR CUFF, LIGAMENTS, TENDONS, AND MUSCLES: There are full thickness full width tears of both the supraspinatus and infraspinatus tendons. There is tendon retraction at least to the level of the glenoid. There is severe fatty atrophy of both the supraspinatus and infraspinatus muscles. The teres minor tendon is intact. The subscapularis tendon is grossly intact. There is edema-like signal in the medial aspect of the infraspinatus muscle. LONG HEAD OF BICEPS: The intra-articular segment of the proximal long head of biceps tendon is not well seen. GLENOHUMERAL JOINT: The humeral head is superiorly subluxed and directly abuts the undersurface of the acromion. The humeral head is not anteriorly or posteriorly subluxed. There is no discretely identified labral tear on limited assessment given the degree of motion artifact. There is degenerative related subchondral cystic change in the glenoid. There is mild generalized thinning and irregularity of the cartilage of the humeral head perhaps best demonstrated on coronal T2 fat saturation sequence image 8. There is no glenohumeral joint effusion. ACROMIOCLAVICULAR JOINT: The acromioclavicular joint is normally aligned. The coracoclavicular and coracoacromial ligaments are intact. There are moderate acromioclavicular degenerative changes with osteophytes projecting approximately 2 mm below the joint margin. BONE: There is no os acromiale. There is no Hill-Sachs deformity. There is no acute fracture, bone contusion, or evidence of osteonecrosis. BURSAE AND SOFT TISSUES: The bursae and soft tissue surrounding the shoulder are unremarkable. IMPRESSION: 1. Full thickness full width tears of the supraspinatus and infraspinatus tendons with tendon retraction to the level of the glenoid and severe fatty atrophy of both muscles. There is low-level edema in the medial aspect of the infraspinatus muscle which may reflect denervation related signal changes and/or muscle strain. 2. Moderate acromioclavicular degenerative changes with 2 mm undersurface osteophytes. 3. Glenohumeral osteoarthritis. The humeral head is superiorly subluxed. No glenohumeral joint effusion or discretely identified labral tear. 4. No acute fracture, bone contusion, or evidence of osteonecrosis. Dictated by: Dictated on workstation # [id number]
== END ==
LOC: RAD 13:11
PROVIDERS: ATTEND Orthopaedic Surgery
DX: M75.121 Complete rotator cuff tear or rupture of right shoulder, not specified as traumatic (principal); M19.011 Primary osteoarthritis, right shoulder; M47.812 Spondylosis without myelopathy or radiculopathy, cervical region; M48.061 Spinal stenosis, lumbar region without neurogenic claudication
CPT/HCPCS: 72141; 73221

== ENCOUNTER 2022-03-24 11:25 | Emergency (ER) | payer MEDICARE ==
[~2022-03-24] VITALS: Ht 157 cm; Wt 63.0 kg
--- NOTE | 2022-03-24 11:54 | ED General ---
General Chief Complaint: General Problems/Pain Stated Complaint: LATHARGIC Nursing Triage Note: Patient brought from [facility] after hemodialysis, CC. EMS was called stating that patient was too lethargic. Patient c/o bilateral hip pain and concerns for possible UTI. Patient believes the Reglan that was given by her PCP is causing her troubles. Patient in room 05. Source of Information: Patient, EMS, Old Records Exam Limitations: No Limitations History of Present Illness Date Seen by Provider: March 24, 2022 Time Seen by Provider: 11:45 Initial Comments This is a 77-year-old female who presented to the ER via [facility] for concerns of lethargy shortly after hemodialysis. Patient has been on hemodialysis for the past 6 years and she typically dialyzes on Wednesday, , Wednesday. Today they were able to pull off 2 L of fluid however shortly after dialysis patient had a temperature of 100.8, she appeared lethargic to the nurses at the dialysis center, she was complaining of bilateral hip pain and concerns of a urinary tract infection. Patient also states that she was recently giving Reglan and has been having shaking every since starting. States she has not taken the Reglan in over 2 days. Allergies and Home Medications Allergies Coded Allergies: lisinopril (Verified Allergy, Mild, 12/29/16) sulfamethoxazole (Verified Allergy, Mild, 12/29/16) trimethoprim (Verified Allergy, Mild, 12/29/16) vancomycin (Verified Allergy, Mild, 12/29/16) clopidogrel (Unverified Allergy, Unknown, BLEEDING, 04/24/16) gabapentin (Unverified Allergy, Unknown, 04/24/16) Patient Home Medication List Home Medication List Reviewed: Yes Amitriptyline HCl (Amitriptyline HCl) 25 Mg Tablet, 75 MG PO HS, (Reported) Entered as Reported by: CLARA CRAMER on 11/11/16 1153 Amlodipine Besylate (Norvasc) 10 Mg Tablet, 10 MG PO HS, (Reported) Entered as Reported by: RACHEAL HUI on 08/14/14 1306 Atenolol (Atenolol) 50 Mg Tablet, 50 MG PO DAILY, (Reported) Entered as Reported by: CLARA CRAMER on 11/11/16 1153 Atorvastatin Calcium (Atorvastatin Calcium) 10 Mg Tablet, 10 MG PO HS Prescribed by: URMILA SUTHERLAND on 11/15/16 1008 Cephalexin (Cephalexin) 500 Mg Tablet, 500 MG PO BID Prescribed by: DINO NOVAK on 12/09/21 1532 Cholecalciferol (Vitamin D3) (Vitamin D-3) 2,000 Unit Capsule, 2,000 UNIT PO BID, (Reported) Entered as Reported by: SHAYNA ARANGO on 07/10/16 1548 Cinnamon Bark (Cinnamon) 500 Mg Capsule, 500 MG PO BID, (Reported) Entered as Reported by: CLARA CRAMER on 11/11/16 1153 Doxycycline Monohydrate (Doxycycline Monohydrate) 100 Mg Capsule, 100 MG PO BID, (Reported) Entered as Reported by: CLARA CRAMER on 11/11/16 1153 Furosemide (Lasix) 40 Mg Tablet, 40 MG PO BID, (Reported) Entered as Reported by: RACHEAL HUI on 08/14/14 1259 Insulin Detemir (Levemir) 100 U/Ml Vial, 10 U SQ HS, (Reported) Entered as Reported by: TRAE RESTREPO on 12/05/14 1345 Multivitamin (Multivitamins) 1 Each Tablet, 1 TAB PO DAILY, (Reported) Entered as Reported by: CLARA CRAMER on 11/11/16 1158 Oxycodone Hcl (Oxycodone IR Hcl) 5 Mg Tablet, 5-10 MG PO QID PRN for PAIN, (Reported) Entered as Reported by: RACHEAL HUI on 08/14/14 1316 Pantoprazole Sod (Protonix Tab) 40 Mg Tab, 40 MG PO DAILY, (Reported) Entered as Reported by: KATHARINE GARCIA on 02/20/13 1158 Sennosides/Docusate Sodium (Docusate Sodium-Senna Tablet) 1 Each Tablet, 1 TAB PO BID, (Reported) Entered as Reported by: CLARA CRAMER on 11/11/16 1157 Review of Systems Review of Systems Constitutional: see HPI EENTM: no symptoms reported Respiratory: no symptoms reported Cardiovascular: no symptoms reported Gastrointestinal: no symptoms reported Genitourinary: see HPI Musculoskeletal: see HPI Skin: no symptoms reported Psychiatric/Neurological: No Symptoms Reported Hematologic/Lymphatic: No Symptoms Reported Immunological/Allergic: no symptoms reported Past Rfkgaig-Npwpmh-Eqpkdt Hx Patient Social History Tobacco Use?: No Substance use?: No Alcohol Use?: No Immunizations Up To Date Tetanus Booster (TDap): Unknown PED Vaccines UTD: No First/Initial COVID19 Vaccinat: 01/17/21 Second COVID19 Vaccination Doug: 02/14/21 COVID19 Vaccine Product Handler: JOSS Seasonal Allergies Seasonal Allergies: No Past Medical History Surgery/Hospitalization HX: diabetes, dialysis pt Surgeries states "lots". Surgeries: Yes (c-sectionsx2, cholesectomy, carpel tunnel releasex2, hysterectomy, caract r) Eye Surgery, Gallbladder, Hysterectomy, Oophorectomy, Orthopedic, Vascular Surgery Respiratory: Yes Asthma Cardiac: Yes (NEAR SYNCOPAL EPISODES) Chronic Edema/Swelling, High Cholesterol, Hypertension, Peripheral Vascular Neurological: Yes (NEUROPATHY IN HANDS, FEET AND LEGS; STROKE WITH RIGHT ARM WEAKNESS) Neuropathy, Stroke 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 Disorders: Yes (2 MISCARRIAGES) Female 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 Disorders: Ovarian Cyst J[employer] History: Hysterectomy, Menopausal Sexually Transmitted Disease: No Kidney Infection, Renal Failure, Dialysis Gastrointestinal: Yes Gastroesophageal Reflux Musculoskeletal: Yes Osteoporosis, Arthritis, Chronic Back Pain, Fractures Endocrine: Yes Diabetes, Insulin dep Cataract, Double Vision Hearing Impairment: Denies Cancer: Yes Melanoma Psychosocial: Yes Anxiety, Depression Integumentary: Yes (CHRONIC WOUND RIGHT FOOT/ANKLE) Blood Disorders: No Adverse Reaction/Blood Tranf: No Family Medical History Cancer G8 SISTER (breast cancer) Cataract 19 MOTHER Dementia 19 MOTHER Family history: Breast disease G8 SISTER (breast cancer) Family history: Diabetes mellitus 19 FATHER G8 SISTER Heart disease 19 MOTHER Parkinson's disease 19 MOTHER Physical Exam Vital Signs Vital Signs - First Documented 03/24/22 11:35 Temp 36.4 Pulse 68 Resp 16 B/P (MAP) 102/71 (81) Pulse Ox 93 O2 Delivery Room Air Capillary Refill : Less Than 3 Seconds Height, Weight, BMI Height: 5'4.00" Weight: 160lbs. 0.0oz. 72.912749em; 25.00 BMI Method:Stated General Appearance: No Apparent Distress, WD/WN Eyes: Bilateral Eye Normal Inspection, Bilateral Eye EOMI HEENT: PERRL/EOMI, Normal ENT Inspection Neck: Full Range of Motion, Normal Inspection, Supple Respiratory: Chest Non Tender, Lungs Clear, Normal Breath Sounds Cardiovascular: Regular Rate, Rhythm, Normal Peripheral Pulses Gastrointestinal: Normal Bowel Sounds, Non Tender, Soft Extremity: Normal Capillary Refill, Normal Inspection, Normal Range of Motion, Other (left upper arm has dialyis fistula, minor swelling from infiltrate. ) Neurologic/Psychiatric: Alert, Oriented x3, No Motor/Sensory Deficits, Normal Mood/Affect Skin: Normal Color, Warm/Dry Progress/Results/Core Measures Suspected Sepsis SIRS Temperature: Pulse: 68 Respiratory Rate: 16 Laboratory Tests 03/24/22 13:00: White Blood Count 8.4 Blood Pressure 102 /71 Mean: 81 Laboratory Tests 03/24/22 13:00: Creatinine 5.04H, Platelet Count 147, Total Bilirubin 0.5 Results/Orders Lab Results Laboratory Tests Test 03/24/22 12:13 03/24/22 13:00 Range/Units Glucometer 127 H 70-110 MG/DL White Blood Count 8.4 4.3-11.0 10^3/uL Red Blood Count 2.84 L 3.80-5.11 10^6/uL Hemoglobin 8.9 L 11.5-16.0 g/dL Hematocrit 27 L 35-52 % Mean Corpuscular Volume 96 80-99 fL Mean Corpuscular Hemoglobin 31 25-34 pg Mean Corpuscular Hemoglobin Concent 33 32-36 g/dL Red Cell Distribution Width 13.9 10.0-14.5 % Platelet Count 147 130-400 10^3/uL Mean Platelet Volume 10.8 9.0-12.2 fL Immature Granulocyte % (Auto) 1 % Neutrophils (%) (Auto) 76 H 42-75 % Lymphocytes (%) (Auto) 9 L 12-44 % Monocytes (%) (Auto) 13 H 0-12 % Eosinophils (%) (Auto) 1 0-10 % Basophils (%) (Auto) 1 0-10 % Neutrophils # (Auto) 6.5 1.8-7.8 10^3/uL Lymphocytes # (Auto) 0.7 L 1.0-4.0 10^3/uL Monocytes # (Auto) 1.1 H 0.0-1.0 10^3/uL Eosinophils # (Auto) 0.0 0.0-0.3 10^3/uL Basophils # (Auto) 0.0 0.0-0.1 10^3/uL Immature Granulocyte # (Auto) 0.1 0.0-0.1 10^3/uL Percent Immature Platelet Fraction 3.9 0.0-7.6 % Sodium Level 136 135-145 MMOL/L Potassium Level 4.7 3.6-5.0 MMOL/L Chloride Level 92 L 98-107 MMOL/L Carbon Dioxide Level 27 21-32 MMOL/L Anion Gap 17 H 5-14 MMOL/L Blood Urea Nitrogen 38 H 7-18 MG/DL Creatinine 5.04 H 0.60-1.30 MG/DL Estimat Glomerular Filtration Rate 8 BUN/Creatinine Ratio 8 Glucose Level 126 H 70-105 MG/DL Calcium Level 9.3 8.5-10.1 MG/DL Corrected Calcium 9.9 8.5-10.1 MG/DL Total Bilirubin 0.5 0.1-1.0 MG/DL Aspartate Amino Transf (AST/SGOT) 15 5-34 U/L Alanine Aminotransferase (ALT/SGPT) 15 0-55 U/L Alkaline Phosphatase 74 40-136 U/L Total Protein 6.8 6.4-8.2 GM/DL Albumin 3.3 3.2-4.5 GM/DL Smear Scan YES My Orders Orders - FELIBERTO VALERO EPILEPSY PHYSICIAN Cbc With Automated Diff (03/24/22 12:15) Comprehensive Metabolic Panel (03/24/22 12:15) Accucheck Stat ONCE (03/24/22 12:15) Vital Signs/I&O 03/24/22 03/24/22 11:35 14:30 Temp 36.4 36.4 Pulse 68 64 Resp 16 16 B/P (MAP) 102/71 (81) 117/46 Pulse Ox 93 95 O2 Delivery Room Air Room Air Capillary Refill : Less Than 3 Seconds Blood Pressure Mean: 81 Progress Note : Progress Note Patient examined and in no acute distress. Her chief concern is for UTI. Feels very strongly she is experiencing a UTI because she "feels the same way everytime". Had reported hip pain at dialysis center, but denied any recent falls or injuries. Images of bilateral hips/pelvis from 02/13 reviewed and were negative for acute fractures. While at dialysis she also was reported to have a spike in temperature of 100.8. Upon arrival she has no elevation in temperature. Obtained basic labs to evaluate WBC, which was within normal limits. She attempted 3x to obtain UA and refused to allow straight cath. Given specimen cup to provide sample to return to ED. Discharge POC reviewed and she is agreeable with plan.VSS at time of discharge. Departure Impression Primary Impression: ESRD (end stage renal disease) on dialysis Additional Impression: Weakness Disposition: 01 HOME, SELF-CARE Condition: Stable Departure-Patient Inst. Decision time for Depature: 14:16 Referrals: OLYA WILLIS MD (PCP/Family) Primary Care Physician Patient Instructions: Weakness ED Add. Discharge Instructions: Plan: 1. You have been given urine Specimen collection materials. Please make sure that you wipe before providing sample. Refrigerate until you are able to return sample to the laboratory. Your laboratory today shows that your white count (looks for infection) is within normal limits which is reassuring. However, as you are unable to provide a sample in the emergency department I would still like to complete your work-up for urinary tract infection. 2. Call your primary care provider office and schedule close follow-up. 3. Continue to hold your Reglan until you follow-up with your primary care provider. 4. Return to the ER if you develop any new, concerning, worsening symptoms. All discharge instructions reviewed with patient and/or family. Voiced understan brent. FELIBERTO VALERO EPILEPSY PHYSICIAN March 24, 2022 11:54
[2022-03-24 13:13] LABS: MEAN CORPUSCULAR VOLUME 96 fL (80-99)
[2022-03-24 13:15] LABS: BASOPHILS % (AUTO) 1 % (0-10); EOSINOPHILS % (AUTO) 1 % (0-10); HEMATOCRIT 27 % (35-52); HEMOGLOBIN 8.9 g/dL (11.5-16.0); LYMPHOCYTES # (AUTO) 0.7 10^3/uL (1.0-4.0); LYMPHOCYTES % (AUTO) 9 % (12-44); MEAN CORPUSCULAR HEMOGLOBIN 31 pg (25-34); MEAN CORPUSCULAR HGB CONC 33 g/dL (32-36); MEAN PLATELET VOLUME 10.8 fL (9.0-12.2); MONOCYTES # (AUTO) 1.1 10^3/uL (0.0-1.0); MONOCYTES % (AUTO) 13 % (0-12); NEUTROPHILS # (AUTO) 6.5 10^3/uL (1.8-7.8); NEUTROPHILS % (AUTO) 76 % (42-75); PLATELET COUNT 147 10^3/uL (130-400); WHITE BLOOD COUNT 8.4 10^3/uL (4.3-11.0)
[2022-03-24 13:24] LABS: ALBUMIN 3.3 GM/DL (3.2-4.5)
[2022-03-24 13:25] LABS: POTASSIUM 4.7 MMOL/L (3.6-5.0)
[2022-03-24 13:26] LABS: CALCIUM 9.3 MG/DL (8.5-10.1)
[2022-03-24 13:27] LABS: TOTAL PROTEIN 6.8 GM/DL (6.4-8.2)
[2022-03-24 13:28] LABS: SMEAR SCAN COMMENT YES
[2022-03-24 13:29] LABS: BILIRUBIN,TOTAL 0.5 MG/DL (0.1-1.0)
[2022-03-24 13:31] LABS: CREATININE SERUM 5.04 MG/DL (0.60-1.30)
[2022-03-24 14:30] VITALS: BP 117/46
== END 2022-03-24 14:30 | disposition home or self-care (01) ==
LOC: EDUNIT# 11:25 → ER 11:26
DX: E11.22 Type 2 diabetes mellitus with diabetic chronic kidney disease (principal); N18.6 End stage renal disease; Z99.2 Dependence on renal dialysis; Z28.311 Partially vaccinated for COVID-19; Z79.4 Long term (current) use of insulin
CPT/HCPCS: 36415; 80053; 82947; 85025

== ENCOUNTER → 2022-03-25 | Outpatient (CLI) | payer MEDICARE ==
[2022-03-25 14:15] LABS: BILIRUBIN,URINE NEGATIVE (NEGATIVE); CLARITY,URINE SL CLOUDY; COLOR,URINE YELLOW; GLUCOSE, URINE (UA) NEGATIVE (NEGATIVE); KETONES,URINE NEGATIVE (NEGATIVE); LEUKOCYTE ESTERASE ,URINE TRACE (NEGATIVE); NITRITE,URINE NEGATIVE (NEGATIVE); PH,URINE 7.5 (5-9); PROTEIN,URINE 2+ (NEGATIVE)
[2022-03-25 14:24] LABS: BACTERIA,URINE MODERATE /HPF; SQUAMOUS EPITHELIAL CELL,UR 25-50 /HPF
[2022-03-25 14:25] LABS: YEAST,URINE FEW /HPF
== END ==
LOC: LABNPT 12:00
PROVIDERS: ATTEND Nurse Practitioner Family
DX: R35.0 Frequency of micturition (principal); R30.9 Painful micturition, unspecified
CPT/HCPCS: 81000; 87088

== ENCOUNTER → 2022-03-30 | Outpatient (CLI) | payer MEDICARE | LOC: WOUNDCARE 11:06 | PROVIDERS: ATTEND Family Medicine | DX: E11.621 Type 2 diabetes mellitus with foot ulcer (principal); L97.416 Non-pressure chronic ulcer of right heel and midfoot with bone involvement without evidence of necrosis; E11.40 Type 2 diabetes mellitus with diabetic neuropathy, unspecified; I70.234 Atherosclerosis of native arteries of right leg with ulceration of heel and midfoot; I89.0 Lymphedema, not elsewhere classified; E11.22 Type 2 diabetes mellitus with diabetic chronic kidney disease; N18.6 End stage renal disease; M86.071 Acute hematogenous osteomyelitis, right ankle and foot; M21.761 Unequal limb length (acquired), right tibia; E11.52 Type 2 diabetes mellitus with diabetic peripheral angiopathy with gangrene; I96 Gangrene, not elsewhere classified | CPT/HCPCS: 11044; 87070; 87205; G0463; 87077 ==

== ENCOUNTER → 2022-04-13 | Outpatient (CLI) | payer MEDICARE | LOC: WOUNDCARE 11:18 | PROVIDERS: ATTEND Family Medicine | DX: E11.621 Type 2 diabetes mellitus with foot ulcer (principal); E11.40 Type 2 diabetes mellitus with diabetic neuropathy, unspecified; I70.234 Atherosclerosis of native arteries of right leg with ulceration of heel and midfoot; I89.0 Lymphedema, not elsewhere classified; E11.22 Type 2 diabetes mellitus with diabetic chronic kidney disease; N18.6 End stage renal disease; M86.071 Acute hematogenous osteomyelitis, right ankle and foot; M21.761 Unequal limb length (acquired), right tibia; L97.414 Non-pressure chronic ulcer of right heel and midfoot with necrosis of bone; E11.52 Type 2 diabetes mellitus with diabetic peripheral angiopathy with gangrene; I96 Gangrene, not elsewhere classified | CPT/HCPCS: 99213 ==

== ENCOUNTER → 2022-06-03 | Outpatient (CLI) | payer MEDICARE ==
--- NOTE | 2022-06-03 16:18 | Diagnostic Imaging Report ---
INDICATION: History of prior fusion. Diabetes. Ulceration on bottom of the heel with history of osteomyelitis. EXAMINATION: MRI right lower extremity without contrast on 06/03/2022. COMPARISON: 09/24/2021. FINDINGS: Again seen are postop changes of fusion and secondary ankylosis across the posterior subtalar joint. Complete tibiotalar fusion is also noted with susceptibility artifact caused by the superimposed orthopedic hardware. Smaller punctate foci of hypointensity and susceptibility artifact are seen throughout the residual talus and calcaneus, similar to previous imaging, possibly metallic fragments. Foci of air are difficult to exclude on MRI. There is absence of the distal aspect of the calcaneus and possibly portions of the talus which appears markedly deformed. Again seen is abnormal signal intensity within the soft tissues in the region of the cubocalcaneal joint space with no discrete abscess or drainable fluid collection appreciated. There is persistent abnormal signal intensity throughout the mid aspect of the residual calcaneus which has worsened and appears more diffuse than on previous imaging, suggesting worsening osteomyelitis. There is an immediately overlying soft tissue defect within the plantar surface of the foot overlying the calcaneus. A small linear focus of fluid in the region measures 2.1 cm in proximal to distal dimension, best appreciated on the sagittal STIR sequence. A small abscess is not excluded on this noncontrast examination. This immediately abuts the plantar surface of the residual calcaneus. There is diffuse T2 hyperintensity with the remaining soft tissues suggesting edema with cellulitis not excluded. There are diffuse degenerative findings throughout the midfoot, similar to previous. The distal Achilles tendon appears thickened, likely due to chronic tendinosis. No retraction or discrete tear is appreciated. The peroneal tendons are intact as visualized. The flexor and extensor tendons appear thickened, similar to the prior examination, with no discrete tear or discontinuity appreciated. Ligaments of the foot and ankle are poorly characterized given deformity of the hindfoot and the susceptibility artifact. IMPRESSION: 1. Worsening T2 hyperintensity throughout the mid aspect of the calcaneus suggesting worsening osteomyelitis with a small linear fluid collection immediately overlying the plantar aspect of the calcaneus which is nonspecific on this noncontrast examination. An abscess is not excluded. This is just deep to the skin ulceration. 2. Post-fusion changes within the hindfoot are similar to the previous examination with areas of susceptibility artifact in the region of the talus and calcaneus, likely from metallic fragments. Foci of air are not excluded on this examination and correlative radiographs may provide further characterization if clinically indicated. 3. Chronic changes of tendinosis within the visualized tendons which appear diffusely thickened with no discrete tear or discontinuity appreciated. 4. Findings of diffuse edema versus cellulitis within the remaining visualized soft tissues. Dictated by: Dictated on workstation # [id number]
== END ==
LOC: RAD 13:10
PROVIDERS: ATTEND Podiatrist Foot & Ankle Surgery
DX: E11.621 Type 2 diabetes mellitus with foot ulcer (principal); L97.419 Non-pressure chronic ulcer of right heel and midfoot with unspecified severity; Z98.1 Arthrodesis status

== ENCOUNTER → 2022-06-19 | Outpatient (CLI) | payer MEDICARE, OTHER | LOC: CARD 12:00 | PROVIDERS: ATTEND Internal Medicine Cardiovascular Disease | DX: I51.7 Cardiomegaly (principal); I25.10 Atherosclerotic heart disease of native coronary artery without angina pectoris | CPT/HCPCS: 93306 ==

== ENCOUNTER → 2022-07-09 | Outpatient (CLI) | payer MEDICARE, OTHER ==
[~2022-07-09] MED LIST changes: +CATHETER FLUSH 10 ML SYR IVP PRN; +REGADENOSON 0.4 MG/5 ML SYR (LEXISCAN) IV ONE
[2022-07-09 13:31] VITALS: BP 131/51
--- NOTE | 2022-07-10 08:24 | NUCLEAR STRESS TEST ---
REGADENOSON NUCLEAR STRESS Date of procedure: 07/09/2022. Primary care provider: Mauricio Messina MD Admitting physician: Mauricio Johnson Jr., MD. INDICATION: Coronary artery disease without angina. BASELINE ELECTROCARDIOGRAM: Sinus bradycardia with low voltage in the precordial leads. STRESS TEST PROCEDURE: The patient was administered 0.4 mg of intravenous Regadenoson. The resting heart rate was 58 bpm and the peak heart rate was 81 bpm. The resting blood pressure was 131/51 mmHg and the minimum blood pressure was 124/70 mmHg. This represents a normal heart rate and a normal blood pressure response to Regadenoson. The test was stopped due to the protocol. There was no chest discomfort during the test. There were no arrhythmias during the test. There were no significant stress induced electrocardiogram changes. NUCLEAR PROCEDURE: The patient was administered 9.9 mCi of intravenous technetium 99m Tetrofosmin at rest for the rest images. The patient was subsequently administered 31.2 mCi of intravenous technetium 99m Tetrofosmin at peak stress for the stress images. Following an appropriate wait after each injection, imaging was obtained. The images were subsequently processed and reformatted in the usual views. Gated imaging could not be obtained due to a technical error with the electrocardiogram. The image quality was adequate with a mild degree of gastrointestinal attenuation artifact. CT attenuation correction was used as a adjunct to standard imaging. Both the corrected and uncorrected images were reviewed for interpretation. NUCLEAR RESULTS: There was a moderate sized, mild intensity, partially reversible distal septal defect with a small amount of inducible ischemia with a summed stress score of 7 and a summed difference score of 3. The left ventricle appeared normal in chamber size but due to the gating artifact, volumes could not be obtained. There was no evidence of transient ischemic dilatation. The TID ratio was 1.07. Wall motion and ejection fraction could not be determined due to the gating artifact. IMPRESSION: 1. Normal heart rate and blood pressure response to regadenoson. 2. There was no chest discomfort, arrhythmias, or electrocardiogram changes during the test. 3. There was a moderate sized, mild intensity, partially reversible distal septal defect with a small amount of inducible ischemia with a summed stress score of 7 and a summed difference score of 3. 4. Wall motion and ejection fraction could not be determined due to a gating artifact. 5. This is an abnormal result although represents a low risk for possible future coronary ischemic events. Certain portions of this document may have been dictated utilizing voice recognition technology. Inherent to this technology, typographical and gramm atical errors may exist. As much as I am diligent to identify and correct these mistakes, some errors may remain in the document. MAURICIO JOHNSON JR, MD Jul 10, 2022 08:24
== END ==
LOC: CARD 12:06
PROVIDERS: ATTEND Internal Medicine Cardiovascular Disease
DX: I25.10 Atherosclerotic heart disease of native coronary artery without angina pectoris (principal)
CPT/HCPCS: 78452; A9502

== ENCOUNTER 2022-10-14 16:32 | Emergency (ER) | payer MEDICARE, OTHER ==
[~2022-10-14] VITALS: Ht 157 cm; Wt 63.0 kg
[2022-10-14] VITALS (9 sets, daily range): BP systolic 117–167; BP diastolic 48–65
[~2022-10-14 16:32] MED LIST changes: -CATHETER FLUSH 10 ML SYR IVP PRN; -DOXY-311 PO; +DOXY-444 PO; -REGADENOSON 0.4 MG/5 ML SYR (LEXISCAN) IV ONE
--- NOTE | 2022-10-14 16:55 | ED General ---
General Chief Complaint: General Problems/Pain Stated Complaint: LOW HEMOGLOBIN Nursing Triage Note: PT TO TRIAGE BY W/C, PT STATES DIALYSIS STATES SHE HAS HBG OF 7.0 AND DONT KNOW WHERE THE BLOOD IS GOING. PT STATES HAS BEEN REALLY TIRED AND LISTLESS. (LOREE DECKER MD) History of Present Illness Date Seen by Provider: Oct 14, 2022 Time Seen by Provider: 16:54 Initial Comments 77-year-old female with PMH of chronic anemia/dialysis on Wednesday, Wednesday, Wednesday for the past 6 years/umbilical hernia,is sent here from the dialysis center for low hemoglobin of 7.0. Patient reports that she has noticed her abdomen is becoming more distended and her umbilical hernia hernia appears to be bigger. Patient states that 1 month ago she had a positive FOBT. Denies dizziness, shortness of breath, chest pain, hematemesis, melena, blood in the stool, hematuria, dysuria, fever. (LOREE DECKER MD) Allergies and Home Medications Allergies Coded Allergies: lisinopril (Verified Allergy, Mild, 12/29/16) sulfamethoxazole (Verified Allergy, Mild, 12/29/16) trimethoprim (Verified Allergy, Mild, 12/29/16) vancomycin (Verified Allergy, Mild, 12/29/16) clopidogrel (Unverified Allergy, Unknown, BLEEDING, 04/24/16) gabapentin (Unverified Allergy, Unknown, 04/24/16) Patient Home Medication List Home Medication List Reviewed: Yes (LOREE DECKER MD) Amitriptyline HCl (Amitriptyline HCl) 25 Mg Tablet, 75 MG PO HS, (Reported) Entered as Reported by: CLARA CRAMER on 11/11/16 1153 Amlodipine Besylate (Norvasc) 10 Mg Tablet, 10 MG PO HS, (Reported) Entered as Reported by: RACHEAL HUI on 08/14/14 1306 Atenolol (Atenolol) 50 Mg Tablet, 50 MG PO DAILY, (Reported) Entered as Reported by: CLARA CRAMER on 11/11/16 1153 Atorvastatin Calcium (Atorvastatin Calcium) 10 Mg Tablet, 10 MG PO HS Prescribed by: URMILA SUTHERLAND on 11/15/16 1008 Cephalexin (Cephalexin) 500 Mg Tablet, 500 MG PO BID Prescribed by: DINO NOVAK on 12/09/21 1532 Cholecalciferol (Vitamin D3) (Vitamin D-3) 2,000 Unit Capsule, 2,000 UNIT PO BID, (Reported) Entered as Reported by: SHAYNA ARANGO on 07/10/16 1548 Cinnamon Bark (Cinnamon) 500 Mg Capsule, 500 MG PO BID, (Reported) Entered as Reported by: CLARA CRAMER on 11/11/16 1153 Doxycycline Monohydrate (Doxycycline Monohydrate) 100 Mg Capsule, 100 MG PO BID, (Reported) Entered as Reported by: CLARA CRAMER on 11/11/16 1153 Furosemide (Lasix) 40 Mg Tablet, 40 MG PO BID, (Reported) Entered as Reported by: RACHEAL HUI on 08/14/14 1259 Insulin Detemir (Levemir) 100 U/Ml Vial, 10 U SQ HS, (Reported) Entered as Reported by: TRAE RESTREPO on 12/05/14 1345 Multivitamin (Multivitamins) 1 Each Tablet, 1 TAB PO DAILY, (Reported) Entered as Reported by: CLARA CRAMER on 11/11/16 1158 Oxycodone Hcl (Oxycodone IR Hcl) 5 Mg Tablet, 5-10 MG PO QID PRN for PAIN, (Reported) Entered as Reported by: RACHEAL HUI on 08/14/14 1316 Pantoprazole Sod (Protonix Tab) 40 Mg Tab, 40 MG PO DAILY, (Reported) Entered as Reported by: KATHARINE GARCIA on 02/20/13 1158 Sennosides/Docusate Sodium (Docusate Sodium-Senna Tablet) 1 Each Tablet, 1 TAB PO BID, (Reported) Entered as Reported by: CLARA CRAMER on 11/11/16 1157 Review of Systems Review of Systems Constitutional: malaise EENTM: no symptoms reported Respiratory: no symptoms reported Cardiovascular: no symptoms reported Gastrointestinal: other Genitourinary: no symptoms reported (Abdominal distention) Musculoskeletal: no symptoms reported Skin: no symptoms reported Psychiatric/Neurological: No Symptoms Reported Hematologic/Lymphatic: No Symptoms Reported Immunological/Allergic: no symptoms reported (LOREE DECKER MD) Past Sjznzir-Witivj-Niduwq Hx Patient Social History Tobacco Use?: No Substance use?: No Alcohol Use?: No Pt feels they are or have been: No (LOREE DECKER MD) Immunizations Up To Date Tetanus Booster (TDap): Unknown PED Vaccines UTD: No Influenza Vaccine Up-to-Date: Yes; Up-to-Date First/Initial COVID19 Vaccinat: 01/17/21 Second COVID19 Vaccination Doug: 02/14/21 Third COVID19 Vaccination Date: 01/17/21 (LOREE DECKER MD) Seasonal Allergies Seasonal Allergies: No (LOREE DECKER MD) Past Medical History Surgery/Hospitalization HX: diabetes, dialysis pt Surgeries states "lots". Surgeries: Yes (c-sectionsx2, cholesectomy, carpel tunnel releasex2, hysterectomy, caract r) Eye Surgery, Gallbladder, Hysterectomy, Oophorectomy, Orthopedic, Vascular Surgery Respiratory: Yes Asthma Cardiac: Yes (NEAR SYNCOPAL EPISODES) Chronic Edema/Swelling, High Cholesterol, Hypertension, Peripheral Vascular Neurological: Yes (NEUROPATHY IN HANDS, FEET AND LEGS; STROKE WITH RIGHT ARM WEAKNESS) Neuropathy, Stroke 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 Disorders: Yes (2 MISCARRIAGES) Female 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 Disorders: Ovarian Cyst [employer] History: Hysterectomy, Menopausal Sexually Transmitted Disease: No Kidney Infection, Renal Failure, Dialysis Gastrointestinal: Yes Gastroesophageal Reflux Musculoskeletal: Yes Osteoporosis, Arthritis, Chronic Back Pain, Fractures Endocrine: Yes Diabetes, Insulin dep Cataract, Double Vision Hearing Impairment: Denies Cancer: Yes Melanoma Psychosocial: Yes Anxiety, Depression Integumentary: Yes (CHRONIC WOUND RIGHT FOOT/ANKLE) Blood Disorders: No Adverse Reaction/Blood Tranf: No (LOREE DECKER MD) Family Medical History Cancer G8 SISTER (breast cancer) Cataract 19 MOTHER Dementia 19 MOTHER Family history: Breast disease G8 SISTER (breast cancer) Family history: Diabetes mellitus 19 FATHER G8 SISTER Heart disease 19 MOTHER Parkinson's disease 19 MOTHER Physical Exam Vital Signs Vital Signs - First Documented 10/14/22 10/14/22 10/14/22 16:40 18:00 19:10 Temp 36.8 Pulse 67 Resp 18 B/P (MAP) 117/48 Pulse Ox 92 O2 Delivery Nasal Cannula O2 Flow Rate 1.00 (IRENE KIRKLAND DO) Vital Signs Capillary Refill : Less Than 3 Seconds (LOREE DECKER MD) Height, Weight, BMI Height: 5'4.00" Weight: 160lbs. 0.0oz. 72.099321im; 25.00 BMI Method:Stated General Appearance: No Apparent Distress, WD/WN HEENT: PERRL/EOMI Neck: Full Range of Motion Respiratory: Lungs Clear, Normal Breath Sounds, No Accessory Muscle Use Cardiovascular: Regular Rate, Rhythm, Other (Hypertensive) Gastrointestinal: Normal Bowel Sounds, Non Tender, Soft, Distended, Hernia (Umbilical hernia on right side is grossly distended) Back: Normal Inspection, No CVA Tenderness Neurologic/Psychiatric: Alert, Oriented x3 Skin: Pallor, Other (Pale mucous membrane) (LOREE DECKER MD) Progress/Results/Core Measures Suspected Sepsis SIRS Temperature: Pulse: 67 Respiratory Rate: 18 Laboratory Tests 10/14/22 17:42: White Blood Count 3.5L Blood Pressure / Mean: Laboratory Tests 10/14/22 17:42: INR Comment 1.2, Platelet Count 135 (LOREE DECKER MD) Results/Orders Lab Results Laboratory Tests Test 10/14/22 17:42 10/14/22 21:12 Range/Units White Blood Count 3.5 L 3.3 L 4.3-11.0 10^3/uL Red Blood Count 1.89 L 2.47 L 3.80-5.11 10^6/uL Hemoglobin 6.4 *L 8.0 #L 11.5-16.0 g/dL Hematocrit 21 L 26 L 35-52 % Mean Corpuscular Volume 111 H 105 H 80-99 fL Mean Corpuscular Hemoglobin 34 32 25-34 pg Mean Corpuscular Hemoglobin Concent 31 L 31 L 32-36 g/dL Red Cell Distribution Width 16.0 H 19.1 H 10.0-14.5 % Platelet Count 135 126 L 130-400 10^3/uL Mean Platelet Volume 11.1 10.2 9.0-12.2 fL Immature Granulocyte % (Auto) 0 % Neutrophils (%) (Auto) 47 42-75 % Lymphocytes (%) (Auto) 24 12-44 % Monocytes (%) (Auto) 27 H 0-12 % Eosinophils (%) (Auto) 1 0-10 % Basophils (%) (Auto) 0 0-10 % Neutrophils # (Auto) 1.7 L 1.8-7.8 10^3/uL Lymphocytes # (Auto) 0.8 L 1.0-4.0 10^3/uL Monocytes # (Auto) 1.0 0.0-1.0 10^3/uL Eosinophils # (Auto) 0.0 0.0-0.3 10^3/uL Basophils # (Auto) 0.0 0.0-0.1 10^3/uL Immature Granulocyte # (Auto) 0.0 0.0-0.1 10^3/uL Neutrophils % (Manual) 53 % Lymphocytes % (Manual) 27 % Monocytes % (Manual) 18 % Eosinophils % (Manual) 2 % Percent Immature Platelet Fraction 3.9 3.7 0.0-7.6 % Hypochromasia MODERATE Macrocytosis SLIGHT Prothrombin Time 16.0 H 12.2-14.7 SEC INR Comment 1.2 0.8-1.4 Activated Partial Thromboplast Time 48 H 24-35 SEC Sodium Level 142 135-145 MMOL/L Potassium Level 3.7 3.6-5.0 MMOL/L Chloride Level 99 98-107 MMOL/L Carbon Dioxide Level 31 21-32 MMOL/L Anion Gap 12 5-14 MMOL/L Blood Urea Nitrogen 15 7-18 MG/DL Creatinine 2.37 H 0.60-1.30 MG/DL Estimat Glomerular Filtration Rate 21 BUN/Creatinine Ratio 6 Glucose Level 133 H 70-105 MG/DL Calcium Level 8.9 8.5-10.1 MG/DL Corrected Calcium 9.5 8.5-10.1 MG/DL Total Bilirubin 0.3 0.1-1.0 MG/DL Aspartate Amino Transf (AST/SGOT) 16 5-34 U/L Alanine Aminotransferase (ALT/SGPT) 17 0-55 U/L Alkaline Phosphatase 80 40-136 U/L Total Protein 6.4 6.4-8.2 GM/DL Albumin 3.2 3.2-4.5 GM/DL (MARITA,IRENE K DO) My Orders Orders - MARITA,IRENE K DO Red Cells Leukocytes Reduced (10/14/22 18:03) Type And Screen (10/14/22 18:03) Ekg Tracing (10/14/22 18:15) O2 (10/14/22 18:15) Monitor-Rhythm Ecg Trace Only (10/14/22 18:15) Ns Iv 500 Ml (Sodium Chloride 0.9%) (10/14/22 18:55) Ed Iv/Invasive Line Start (10/14/22 19:35) Ns Iv 500 Ml (Sodium Chloride 0.9%) (10/14/22 19:45) Cbc No Diff (10/14/22 20:17) Ed Iv/Invasive Line Start (10/14/22 21:52) Ns Iv 500 Ml (Sodium Chloride 0.9%) (10/14/22 22:00) Cbc No Diff (10/14/22 22:55) (IRENE KIRKLAND DO) Medications Given in ED Current Medications Medications Dose Ordered Sig/Jericho Route Start Time Stop Time Status Last Admin Dose Admin Pantoprazole 80 mg ONCE ONCE IV 10/14/22 18:15 10/14/22 18:16 DC 10/14/22 18:42 80 MG Sodium Chloride 500 ml @ 0 mls/hr Q0M ONCE IV 10/14/22 19:45 10/14/22 19:46 DC 10/14/22 19:37 0 MLS/HR Sodium Chloride 500 ml @ 0 mls/hr Q0M ONCE IV 10/14/22 22:00 10/14/22 22:01 DC 10/14/22 22:08 0 MLS/HR (IRENE KIRKLAND DO) Vital Signs/I&O 10/14/22 10/14/22 10/14/22 10/14/22 16:40 18:00 19:10 19:26 Temp 36.8 36.4 36.2 Pulse 67 61 57 Resp 18 B/P (MAP) 117/48 129/52 Pulse Ox 92 95 94 100 O2 Delivery Nasal Cannula Nasal Cannula Nasal Cannula O2 Flow Rate 1.00 1.00 1.00 10/14/22 10/14/22 10/14/22 10/14/22 19:40 20:44 21:57 22:05 Temp 36.6 36.6 36.7 36.6 Pulse 56 61 58 59 B/P (MAP) 128/49 125/51 141/57 149/54 Pulse Ox 100 100 100 100 O2 Delivery Nasal Cannula Nasal Cannula Nasal Cannula Nasal Cannula O2 Flow Rate 1.00 2.00 2.00 2.00 10/14/22 22:19 Temp 36.4 Pulse 60 B/P (MAP) 153/65 (IRENE KIRKLAND DO) Vital Signs/I&O Capillary Refill : Less Than 3 Seconds (LOREE DECKER MD) Progress Note : Progress Note 1.ACUTE ON CHRONIC ANEMIA/ RULE OUT GI BLEED -CT abdomen without contrast -CXR -CBC/CMP/coag panel/type and screen -UA - FOB - Protonix -Signed out to Dr. KIRKLAND for follow-up of imaging and labs (LOREE DECKER MD) Progress Note : Progress Note 1800--ASSUMED CARE FROM DR. DECKER. LAB AND CT PENDING. BLOOD TRANSFUSION ORDERED. PT WAS GIVEN 2 UNITS OF BLOOD, NO REACTION. NO DYSPNEA OR HYPOXIA OR ANY SYMPTOMS OF ANY KIND. DISCUSSED IMPORTANCE OF FOLLOW UP WITH PCP FOR FURTHER EVALUATION (IRENE KIRKLAND DO) Diagnostic Imaging Comments XRAY AND CT SCAN--PER RADIOLOGIST REPORTS AT 1839 CXR--FINDINGS: Heart size and pulmonary vasculature are mildly enlarged. There are mild interstitial opacities within the mid and lower lungs. No pleural effusion or pneumothorax. The osseous structures are intact. Surgical changes from left shoulder arthroplasty. IMPRESSION: 1. Mild interstitial opacities within the mid and lower lungs, which can be seen with atelectasis, pulmonary edema, or atypical infection. CT ABDOMEN/PELVIS-- FINDINGS: Lower chest: Chronic rounded consolidation in the right lower lobe is stable and likely an area of atelectasis/scar. Trace right and small left pleural effusions are stable. Peritoneum: No free intraperitoneal air or fluid. Liver and biliary system: Unenhanced liver is normal. Cholecystectomy. Spleen and Pancreas: Ovoid 1.5 cm hypodensity in the spleen is most likely a benign process such as hemangioma. Diffuse fatty infiltration of the pancreas. Adrenals: Stable left adrenal nodule which can be considered benign given appearance and stability. tract: Mild cortical thinning/atrophy of both kidneys may be due to chronic renal insufficiency. Urinary bladder is normally filled without wall thickening. GI tract: Stomach is decompressed. No bowel obstruction. No pericolonic inflammatory changes. A large amount of stool is present within the colon Appendectomy has likely been performed. Vasculature and Lymph nodes: Normal caliber aorta has severe atherosclerotic plaquing. No abdominal or pelvic lymphadenopathy. Musculoskeletal: No concerning osseous lesion. Diastases of rectus abdominis is present, but there is no abdominal hernia. No inguinal hernia. IMPRESSION: 1. Diastases of the rectus abdominis. No abdominal hernia or bowel obstruction. 2. Large burden of colonic stool. Correlation for constipation is recommended. 3. Small bilateral pleural effusions. Reviewed: Reviewed by Me (IRENE KIRKLAND DO) Departure Impression Primary Impression: Acute on chronic anemia Additional Impression: ESRD (end stage renal disease) on dialysis Disposition: HOME, SELF-CARE Condition: Stable Departure-Patient Inst. Referrals: OLYA WILLIS MD (PCP/Family) Primary Care Physician Patient Instructions: Anemia Caused by Low Iron, Adult (DC), Chronic Kidney Disease (DC) Add. Discharge Instructions: HOME, RES CONTINUE YOUR REGULAR MEDICATIONS PRESCRIBED FOLLOW UP WITH YOUR REGULAR DR IN A FEW DAYS FOR FURTHER CARE FOLLOW UP WITH YOUR INVENTORY REPRESENTATIVE AND WITH DIALYSIS SCHEDULED. All discharge instructions reviewed with patient and/or family. Voiced understanding. LOREE DECKER MD Oct 14, 2022 16:55 IRENE KIRKLAND DO Oct 14, 2022 18:15
[2022-10-14 17:57] LABS: BASOPHILS % (AUTO) 0 % (0-10); EOSINOPHILS % (AUTO) 1 % (0-10); HEMATOCRIT 21 % (35-52); LYMPHOCYTES # (AUTO) 0.8 10^3/uL (1.0-4.0); LYMPHOCYTES % (AUTO) 24 % (12-44); MEAN CORPUSCULAR HEMOGLOBIN 34 pg (25-34); MEAN CORPUSCULAR HGB CONC 31 g/dL (32-36); MEAN CORPUSCULAR VOLUME 111 fL (80-99); MEAN PLATELET VOLUME 11.1 fL (9.0-12.2); MONOCYTES % (AUTO) 27 % (0-12); NEUTROPHILS # (AUTO) 1.7 10^3/uL (1.8-7.8); NEUTROPHILS % (AUTO) 47 % (42-75); PLATELET COUNT 135 10^3/uL (130-400); WHITE BLOOD COUNT 3.5 10^3/uL (4.3-11.0)
[2022-10-14 18:01] LABS: HEMOGLOBIN 6.4 g/dL (11.5-16.0)
[2022-10-14 18:04] LABS: INR 1.2 (0.8-1.4)
[2022-10-14 18:08] LABS: ALBUMIN 3.2 GM/DL (3.2-4.5); POTASSIUM 3.7 MMOL/L (3.6-5.0)
[2022-10-14 18:10] LABS: CALCIUM 8.9 MG/DL (8.5-10.1)
[2022-10-14 18:11] LABS: TOTAL PROTEIN 6.4 GM/DL (6.4-8.2)
[2022-10-14 18:13] LABS: BILIRUBIN,TOTAL 0.3 MG/DL (0.1-1.0)
[2022-10-14 18:14] LABS: CREATININE SERUM 2.37 MG/DL (0.60-1.30)
[2022-10-14] MEDS ORDERED: PANTOPRAZOLE 40 MG (PROTONIX) VIAL IV ONE (18:15)
--- NOTE | 2022-10-14 18:31 | Diagnostic Imaging Report ---
EXAMINATION: Chest, one view. HISTORY: Low Hb. COMPARISON: None available. FINDINGS: Heart size and pulmonary vasculature are mildly enlarged. There are mild interstitial opacities within the mid and lower lungs. No pleural effusion or pneumothorax. The osseous structures are intact. Surgical changes from left shoulder arthroplasty. IMPRESSION: 1. Mild interstitial opacities within the mid and lower lungs, which can be seen with atelectasis, pulmonary edema, or atypical infection. Dictated by: Dictated on workstation # [id number]
--- NOTE | 2022-10-14 18:33 | Diagnostic Imaging Report ---
CT ABDOMEN/PELVIS WO TECHNIQUE: Unenhanced CT imaging of the abdomen and pelvis was performed. 2-D reformats are created and submitted for interpretation. Automatic exposure controls were utilized to optimize patient dose. INDICATION: Abdominal distention and hernia COMPARISON: CT abdomen and pelvis from 08/26/2020 FINDINGS: Lower chest: Chronic rounded consolidation in the right lower lobe is stable and likely an area of atelectasis/scar. Trace right and small left pleural effusions are stable. Peritoneum: No free intraperitoneal air or fluid. Liver and biliary system: Unenhanced liver is normal. Cholecystectomy. Spleen and Pancreas: Ovoid 1.5 cm hypodensity in the spleen is most likely a benign process such as hemangioma. Diffuse fatty infiltration of the pancreas. Adrenals: Stable left adrenal nodule which can be considered benign given appearance and stability. tract: Mild cortical thinning/atrophy of both kidneys may be due to chronic renal insufficiency. Urinary bladder is normally filled without wall thickening. GI tract: Stomach is decompressed. No bowel obstruction. No pericolonic inflammatory changes. A large amount of stool is present within the colon Appendectomy has likely been performed. Vasculature and Lymph nodes: Normal caliber aorta has severe atherosclerotic plaquing. No abdominal or pelvic lymphadenopathy. Musculoskeletal: No concerning osseous lesion. Diastases of rectus abdominis is present, but there is no abdominal hernia. No inguinal hernia. IMPRESSION: 1. Diastases of the rectus abdominis. No abdominal hernia or bowel obstruction. 2. Large burden of colonic stool. Correlation for constipation is recommended. 3. Small bilateral pleural effusions. Dictated by: Dictated on workstation # [id number]
[2022-10-14 18:38] LABS: EOSINOPHILS % (MANUAL) 2 %; HYPOCHROMASIA MODERATE; LYMPHOCYTES % (MANUAL) 27 %; MONOCYTES % (MANUAL) 18 %; NEUTROPHILS % (MANUAL) 53 %
[2022-10-14] MEDS ORDERED: NS IV 500 ML 500 ML ONE (18:55)
[2022-10-14] MEDS ORDERED: NS IV 500 ML 500 ML IV ONE ×2 (19:45→22:00)
[2022-10-14 21:19] LABS: MEAN PLATELET VOLUME 10.2 fL (9.0-12.2); WHITE BLOOD COUNT 3.3 10^3/uL (4.3-11.0)
[2022-10-14 23:31] LABS: HEMOGLOBIN 9.8 g/dL (11.5-16.0); MEAN PLATELET VOLUME 10.8 fL (9.0-12.2); WHITE BLOOD COUNT 3.2 10^3/uL (4.3-11.0)
== END 2022-10-15 00:05 | disposition home or self-care (01) ==
LOC: EDUNIT# 16:32 → ER 16:34
DX: E11.22 Type 2 diabetes mellitus with diabetic chronic kidney disease (principal); I12.0 Hypertensive chronic kidney disease with stage 5 chronic kidney disease or end stage renal disease; N18.6 End stage renal disease; D63.1 Anemia in chronic kidney disease; Z99.2 Dependence on renal dialysis; Z79.4 Long term (current) use of insulin
CPT/HCPCS: 71045; 74176; 80053; 85007; 85027; 85610; 85730; 86850; 86900; 86901; 86920; 93041; P9016; 36415; 93005

== ENCOUNTER → 2022-10-21 | Outpatient (CLI) | payer MEDICARE ==
--- NOTE | 2022-10-21 09:47 | Diagnostic Imaging Report ---
INDICATION: Abdominal pain, anemia TECHNIQUE: Multiple real-time dempsey scale sonographic images of the abdomen. CORRELATION STUDY: None FINDINGS: LIVER: Liver length 18 cm. No definitive focal lesion. There is some increased echogenicity, may be reflective of fatty infiltration. There is normal, hepatopedal direction of flow within the main portal vein. GALLBLADDER: Cholecystectomy. COMMON BILE DUCT: Nondilated at 0.6 cm. PANCREAS: Largely obscured by overlying bowel gas and not well visualized. SPLEEN: Normal in size, 10.2 x 4.9 x 4.3 cm. Hypoechoic region is noted measuring approximately 1.9 x 1.6 x 1.5 cm. ABDOMINAL AORTA: Moderate atherosclerotic calcification. Appears to be nonaneurysmal. INFERIOR VENA CAVA: Unremarkable. RIGHT KIDNEY: 9.7 x 4.4 x 4.7 cm. Some generalized thinning and echogenicity of the renal parenchyma. Likely more focal cyst mid pole 1.4 cm. No hydronephrosis. LEFT KIDNEY: 9.9 x 3.0 x 3.8 cm. Generalized thinning and echogenicity of the left renal parenchyma. No hydronephrosis. OTHER: No abdominal ascites. IMPRESSION: 1. Negative for acute abnormality about the abdomen and/or pelvis. 2. Coarse somewhat heterogeneous echogenic appearance about the liver parenchyma may reflect mild fatty infiltration. No definitive focal lesion. 3. Spleen normal in size. There is, however, a nearly 2 cm hypoechoic mass. Likely corresponds to low-density mass at CT imaging. Remains nonspecific. 4. Generalized thinning of the bilateral renal parenchyma. Dictated by: Dictated on workstation # [id number]
== END ==
LOC: RAD 07:51
PROVIDERS: ATTEND Internal Medicine Nephrology
DX: K76.89 Other specified diseases of liver (principal); D64.9 Anemia, unspecified; R10.9 Unspecified abdominal pain
CPT/HCPCS: 76700

== ENCOUNTER 2022-10-22 12:45 | Outpatient (CLI) | payer MEDICARE ==
[~2022-10-22] VITALS: Ht 157.5 cm; Wt 62.6 kg
== END 2022-10-22 15:04 | disposition home or self-care (01) ==
LOC: PREOP 12:45
PROVIDERS: ATTEND Internal Medicine
DX: Z01.818 Encounter for other preprocedural examination (principal)

== ENCOUNTER 2022-10-30 09:21 | Day surgery (SDC) | payer MEDICARE ==
[~2022-10-30] VITALS: Ht 157.5 cm; Wt 62.6 kg
--- NOTE | 2022-10-30 09:00 | Pre-Op Note & Conscious Sedat ---
Pre-Operative Progress Note Date H&P Reviewed: Oct 30, 2022 Time H&P Reviewed: 08:59 History & Physical: H&P Reviewed, Patient Examed, No changes noted Pre-Op Diagnosis: anemia Conscious Sedation Pre-Proced ASA Score 3 For ASA 3 and 4: Consider anesthesia and medical clearance. Also, for patients with a history of failed moderate sedation consider anesthesia. Airway Lungs Heart ASA score ASA 1: a normal healthy patient ASA 2: a patient with a mild systemic disease (mid diabetes, controlled hypertension, obesity ASA 3: a patient with a severe systemic disease that limits activity (angina, COPD, prior Myocardial infarction) ASA 4: a patient with an incapacitating disease that is a constant threat to life (CHF, renal failure) ASA 5: a moribund patient not expected to survive 24 hrs. (ruptured aneurysm) ASA 6: a declared brain- patient whose organs are being harvested. For emergent operations, add the letter E after the classification Mallampati Classification Grade 2 Sedation Plan Analgesia, Amnesia, Plan communicated to team members, Discussed options with patient/fam, Discussed risks with patient/fam The patient is an appropriate candidate to undergo the planned procedure, sedation, and anesthesia. The patient immediately re-assessed prior to indication. YI NÚÑEZ MD Oct 30, 2022 09:00
[2022-10-30] MEDS ORDERED: LACTATED RINGERS 1,000 ML IV STA (09:35)
[2022-10-30] MEDS ORDERED: HURRICAINE EXT TUBE (BENZOCAINE) XX PRN (09:45)
[2022-10-30 09:47] VITALS: BP 138/70
[2022-10-30] MEDS ORDERED: PROPOFOL INJECTION 50 ML IV ONE (10:01)
--- NOTE | 2022-10-30 10:17 | Progress Note-Post Operative ---
Post-Procedure Note Physician (s)/Buyer Renter (s) Physician YI NÚÑEZ MD Pre-Procedure Diagnosis Pre-Procedure Diagnosis: anemia Post-Procedure Diagnosis Post-operative diagnosis: The endoscope was inserted into the oral cavity and under direct visualization the esophagus is intubated. The endoscope was passed down the esophagus through the stomach into the second portion of the duodenum. A careful inspection was made as the endoscope was withdrawn. Findings: Posterior pharynx epiglottis arytenoid aperture and true and false vocal folds were unremarkable on gross inspection. There were findings compatible with some presbyesophagus but no evidence for dilatation and no other esophageal abnormalities were noted. There was no evidence for erosive esophagitis. The Z-line was distinct without erythema no Lynn's change appreciated. Save for multiple small fundal appearing polyps in the fundus the stomach was unremarkable with no evidence for gastritis erosions or ulceration. The pylorus the pyloric channel duodenal bulb and second portion of the duodenum were unremarkable. Assessment: No potential bleeding sites were identified today the patient has multiple benign small fundal polyps with an otherwise normal EGD as noted above. CC: Dr. Mauricio NÚÑEZ,YI Hooper MD Oct 30, 2022 10:17
[2022-10-30 10:18] VITALS: BP 93/43
[2022-10-30 10:23] VITALS: BP 88/51
[2022-10-30 10:28] VITALS: BP 87/42
[2022-10-30 10:30] VITALS: BP 92/45
[2022-10-30 11:09] VITALS: BP 92/45
--- NOTE | 2022-10-30 14:24 | Anesthesia-General Post-Op ---
MAC Patient Condition Mental Status/LOC: Same as Preop Cardiovascular: Satisfactory Nausea/Vomiting: Absent Respiratory: Satisfactory Pain: Controlled Complications: Absent Post Op Complications Complications None Follow Up Care/Instructions Patient Instructions None needed. Anesthesiology Discharge Order Discharge Order Patient is doing well, no complaints, stable vital signs, no apparent adverse anesthesia problems. No complications reported per nursing. MARIANGEL CHAIREZ CRNA Oct 30, 2022 14:24
== END 2022-10-30 11:18 | disposition home or self-care (01) ==
LOC: ENDO 09:21
PROVIDERS: ATTEND Internal Medicine
DX: K31.7 Polyp of stomach and duodenum (principal); D64.9 Anemia, unspecified

== ENCOUNTER 2022-12-01 08:10 | Outpatient (RCR) | payer MEDICARE ==
[2022-12-01 09:21] LABS: BASOPHILS % (AUTO) 1 % (0-10); EOSINOPHILS # (AUTO) 0.2 10^3/uL (0.0-0.3); EOSINOPHILS % (AUTO) 5 % (0-10); MEAN CORPUSCULAR VOLUME 98 fL (80-99); PLATELET COUNT 107 10^3/uL (130-400)
[2022-12-01 09:23] LABS: ABSOLUTE RETIC # 77 10e9/uL (24-90); HEMATOCRIT 38 % (35-52); LYMPHOCYTES # (AUTO) 0.8 10^3/uL (1.0-4.0); LYMPHOCYTES % (AUTO) 24 % (12-44); MEAN CORPUSCULAR HEMOGLOBIN 28 pg (25-34); MEAN CORPUSCULAR HGB CONC 29 g/dL (32-36); MONOCYTES # (AUTO) 0.6 10^3/uL (0.0-1.0); MONOCYTES % (AUTO) 17 % (0-12); NEUTROPHILS # (AUTO) 1.8 10^3/uL (1.8-7.8); NEUTROPHILS % (AUTO) 53 % (42-75); RETICULOCYTE % 1.99 % (0.50-2.40); WHITE BLOOD COUNT 3.4 10^3/uL (4.3-11.0)
== END 2022-12-22 | disposition home or self-care (01) ==
LOC: ONC 08:10
PROVIDERS: ATTEND Internal Medicine Hematology & Oncology
DX: I12.0 Hypertensive chronic kidney disease with stage 5 chronic kidney disease or end stage renal disease (principal); D63.1 Anemia in chronic kidney disease; E11.22 Type 2 diabetes mellitus with diabetic chronic kidney disease; N18.6 End stage renal disease; I73.9 Peripheral vascular disease, unspecified; I25.10 Atherosclerotic heart disease of native coronary artery without angina pectoris; J98.4 Other disorders of lung; Z99.2 Dependence on renal dialysis; Z79.4 Long term (current) use of insulin; Z79.899 Other long term (current) drug therapy
CPT/HCPCS: 82728; 82746; 83540; 83550; 83615; 84443; 85025; 85045